=== PATIENT | male | born 1965 | race Caucasian/White ===

== ENCOUNTER 2020-09-05 18:40 | Emergency (ER) | payer BC, SELFPAY ==
[2020-09-05 18:40] VITALS: BP 156/76; PULSE 81; RESP 18; TEMP 37.2; O2SAT 98; BMI 42.9
[2020-09-05 19:15] VITALS: BP 132/71; PULSE 75; RESP 16; O2SAT 98
--- NOTE | 2020-09-05 19:19 | PC.NURSE ---
on phone with Radha charge account identification clerk nurse at [facility]
--- NOTE | 2020-09-05 19:28 | PC.NURSE ---
on phone with [facility] arranging transfer at this time.
--- NOTE | 2020-09-05 19:44 | PC.NURSE ---
md spoke with md at [facility] who stated he would tentatively accept the patient (but transfer is discharge dependent so it might be a few hours), and that in the meantime he would try to get ahold of vascular and podiatry and see if the wound vacs could be done without.
[2020-09-05 19:45] VITALS: BP 122/71; PULSE 73; RESP 18; TEMP 36.8; O2SAT 98
--- NOTE | 2020-09-05 19:49 | HMH.EDGENADL ---
ED Disposition Clinical Impression: Abscess of skin or subcutaneous tissue Qualifiers: Site of cutaneous abscess: extremity Site of cutaneous abscess of extremity: foot Laterality: right Qualified Code(s): L02.611 - Cutaneous abscess of right foot Osteomyelitis of left foot Qualifiers: Osteomyelitis type: subacute Qualified Code(s): M86.272 - Subacute osteomyelitis, left ankle and foot Diabetes Qualifiers: Diabetes mellitus type: type 1 Diabetes mellitus complication status: without complication Qualified Code(s): E10.9 - Type 1 diabetes mellitus without complications Disposition: Xfer Inpatient Rehab Fac Condition on Discharge: Good Instructions: DI for Skin Abscess Referrals: Tayo Jones [Primary Care Provider] - - Critical Care Critical Care Time: No Attestation: On 09/05/20, the high probability of a clinically significant, sudden or life threatening deterioration of the following system(s) required my full and direct attention, intervention and personal management. The time I documented below is in addition to time spent performing reported procedures but includes the following listed in this critical care notation. Medical Decision Making - Medical Records Medical records reviewed: Yes: I reviewed the patient's medical records. - Luis Inquiry Pt receiving controlled substance: No Vital Signs: 09/05/20 18:40 Temperature 98.9 F Temperature Source Oral Pulse Rate [Right Radial] 81 Respiratory Rate 18 Blood Pressure [Right Arm] 156/76 H Blood Pressure Mean [Right Arm] 102 Blood Pressure Source [Right Arm] Automatic Cuff Blood Pressure Position [Right Arm] Sitting 02 Sat by Pulse Oximetry 98 Oxygen Delivery Method Room Air Orders (Tests/Meds): ORDERS Category Date Time Status Complete Blood Count Auto Diff Stat Lab 09/05/20 18:51 Ordered Comprehensive Metabolic Panel Stat Lab 09/05/20 18:51 Ordered Lactic Acid Stat Lab 09/05/20 18:52 Ordered Blood Culture Stat Micro 09/05/20 18:52 Ordered - Reevaluation(s) Time: 19:59 Reevaluation #1: On reevaluation, patient is feeling fine. Hemodynamically stable. I did speak with Dr. Beach at [facility] again. He was able to get a hold of the discharging physician as well as the surgeons. The nursing facility was provided all the supplies for wound VAC placement. I did speak with the nursing facility. They were given instructions again on how to place this. Patient is to follow-up with infectious disease and podiatry as previously subscribed. [facility] be [facility] to [facility]. Medical Decision Narrative: 55-year-old male presented to the emergency department for wound evaluation. The patient did have complicated course and was discharged to prison facility today. Patient arrived without his wound VAC use. Based on the patient's wounds. I do believe he requires extensive wound care management. I did call [facility] in [place]. I did speak with the on-call hospitalist, Dr. eBach. He was notified about the patient. They have accepted transfer the patient. However they are currently at capacity. While the patient is awaiting transport, Dr. Beach did state that he was trying to get a hold of podiatry as well as vascular surgery for possible arrangement of outpatient wound VAC placement or other wound care in order for the patient to return to the prison facility. They will notify us of any changes. If not the patient will be transferred to [facility] ([facility]] for further evaluation and treatment. General Adult HPI - General Chief complaint: Skin/Abscess/Foreign Body Stated complaint: wounds to BLE Time Seen by Provider: 09/05/20 18:45 Mode of Arrival: EMS Limitations: No Limitations Description of Symptoms (Recalled from ER Triage Doc. by RN): Per prison report pt has been at their facilty for approx 3 hours, states pt was d/c'd to their facilty from [facility] ([facility]] today for rehab. State
--- NOTE | 2020-09-05 19:54 | PC.NURSE ---
speaking with dr traylor at [facility] at this time.
--- NOTE | 2020-09-05 19:58 | PC.NURSE ---
phone call made to [facility], spoke to Javier and requested that the DON be paged to return call to Dr. Beck
--- NOTE | 2020-09-05 20:00 | PC.NURSE ---
according to md carmen; jade returned his call and stated the equipment is at the facility and had been.
[2020-09-05 20:15] VITALS: BP 121/74; PULSE 73; RESP 18; O2SAT 98
[2020-09-05 20:45] VITALS: BP 121/70; PULSE 73; RESP 18; TEMP 36.8; O2SAT 98
--- NOTE | 2020-09-05 21:03 | PC.NURSE ---
cleaned wounds to bilat low extremities with saline. Placed xeroform gauze over exposed tendon to left foot, covered with padding and secured. covered wounds to rle with non-adherent pads, gauze and secured. advised ems to remind [facility] not to take those off tonight unless they can keep that tendon moist until the wound vac application occurs. ems transferred pt to their stretcher and left at this time.
[2020-09-05 21:11] VITALS: BP 125/71; PULSE 72; RESP 18; TEMP 36.8; O2SAT 98
== END 2020-09-05 21:20 ==
PROVIDERS: Emergency Provider Emergency Medicine; PCP Family Medicine
DX: L02.611 Cutaneous abscess of right foot (principal); M86.272 Subacute osteomyelitis, left ankle and foot; E10.9 Type 1 diabetes mellitus without complications
CPT/HCPCS: 99282

== ENCOUNTER 2022-01-08 14:20 | Inpatient (IN) | payer MEDICAID, SELFPAY ==
[2022-01-08] VITALS (9 sets, daily range): BP systolic 148–168; BP diastolic 76–86; PULSE 76–94; RESP 18–20; TEMP 36.4–36.9; O2SAT 95–98; BMI 36.9; BMI 36.5
--- NOTE | 2022-01-08 14:34 | PC.NURSE ---
RAD HERE FOR PORT CHEST
--- NOTE | 2022-01-08 14:37 | HMH.EDGENADL ---
Discharge Plan Disposition Patient Disposition: Admitted As Inpatient Chief Complaint: Wound/Laceration Prescriptions Prescriptions: No Action clonidine HCl 0.1 mg tablet 0.1 mg PO TID insulin glargine [Lantus U-100 Insulin] 100 unit/mL solution 24 unit SQ HS amlodipine 5 mg tablet 5 mg PO DAILY insulin lispro 100 unit/mL solution 10 unit SQ TID acetaminophen 500 mg capsule 500 mg PO Q6H PRN (Reason: Pain) Referrals Follow up/Referrals: Tayo Jones [Primary Care Provider] - See instructions Clinical Impressions Clinical Impression: Cellulitis, Diabetes, Diabetic infection of left foot Instructions Patient Instructions: DI for Laceration Repair Discharge ED Provider: Kaleb Samuels General Adult HPI General Chief complaint: Wound/Laceration Stated complaint: left foot pain,diabetic Time Seen by Provider: 01/08/22 14:37 Mode of Arrival: Ambulatory History of Present Illness HPI narrative: 56-year-old male with poorly controlled type 2 diabetes, prior osteomyelitis of the left small toe status post amputation last year. Additional history includes hypertension and prior skin infections. He presents as referral from his physician's office. He was being seen for his hypertension in the noted erythema and swelling of the left foot. He states this has been going on for approximately 3 to 4 days after having gone [place] [employer] [place]. He has not been on any treatments, specifically no antibiotics for this thus far. Denies any fevers, chills, nausea, vomiting or other systemic symptoms. Related Data Home Medications Medication Instructions Recorded Confirmed acetaminophen 500 mg capsule 500 mg PO Q6H PRN Pain 01/08/22 01/08/22 amlodipine 5 mg tablet 5 mg PO DAILY High blood pressure 01/08/22 01/08/22 clonidine HCl 0.1 mg tablet 0.1 mg PO TID High blood pressure 01/08/22 01/08/22 insulin glargine 100 unit/mL 24 unit SQ HS Diabetes 01/08/22 01/08/22 subcutaneous solution (Lantus U-100 Insulin) insulin lispro 100 unit/mL 10 unit SQ TID Diabetes 01/08/22 01/08/22 subcutaneous solution valsartan 160 mg capsule 160 mg PO DAILY High blood pressure 01/08/22 01/08/22 Allergies Allergy/AdvReac Type Severity Reaction Status Date / Time No Known Allergies Allergy Verified 01/08/22 13:55 PFSH PFSH Medical History Amputation of toe of left foot Family History Father Cancer CHF (congestive heart failure) Sister Hypertension Social History Smoking Status: Unknown if ever smoked alcohol intake: never substance use type: denies use current occupational status: other Travel in the last 8 weeks: None ROS Obtained: Yes Systems reviewed as appropriate & no additional complaints except as documented Constitutional Constitutional: Reports system reviewed and no additional complaints, except as documented Eyes Eyes: Reports system reviewed and no additional complaints, except as documented ENT Ears, Nose, Mouth, and Throat: Reports system reviewed and no additional complaints, except as documented Cardiovascular Cardiovascular: Reports system reviewed and no additional complaints, except as documented Respiratory Respiratory: Reports system reviewed and no additional complaints, except as documented Gastrointestinal Gastrointestingal: Reports system reviewed and no additional complaints, except as documented Genitourinary Male Genitourinary: Reports system reviewed and no additional complaints, except as documented Musculoskeletal Musculoskeletal: Reports as per HPI Integumentary/Breasts Skin/Breast: Reports as per HPI Neurologic Neurologic: Reports system reviewed and no additional complaints, except as documented Endocrine Endocrine: Reports system reviewed and no additional complaints, except as documented
--- NOTE | 2022-01-08 14:42 | XR_ITS ---
FINAL REPORT CLINICAL HISTORY: diabetic foot wound FINDINGS: LEFT FOOT Three views of the left foot demonstrate no acute fracture or dislocation. The visualized joint spaces are normally aligned. The joint spaces are preserved. There is a soft tissue defect in the dorsal midfoot with air in the soft tissues. This is presumably air from an open wound. Status post amputation of the 5th digit at the level of the mid metatarsal. IMPRESSION: Soft tissue defect in the dorsal midfoot with air in the soft tissues, presumably from an open wound. Reviewed, Interpreted and Dictated by Shannan Baca MD Transcribed by Joyce Mackay Authenticated and [facility]
--- NOTE | 2022-01-08 14:42 | PC.NURSE ---
ED MD AT BEDSIDE FOR EVALUATION
--- NOTE | 2022-01-08 15:00 | PC.NURSE ---
1458 PT TO XR AT THIS TIME
--- NOTE | 2022-01-08 15:04 | PC.NURSE ---
PT RETURNED FROM XR
[2022-01-08 15:10] LABS: Basophils # 0.1 K/mm3 (0-0.2); Basophils % 0.6 % (0.1-2.0); Eosinophils # 0.6 K/mm3 (0.0-0.4); Hematocrit 36.8 % (42.0-52.0); Hemoglobin 11.5 g/dL (14.1-18.0); Lymphocytes # 2.1 K/mm3 (0.7-4.5); Lymphocytes % 18.5 % (10-50); Mean Corpuscular HGB Conc 31.3 g/dL (31.8-35.4); Mean Corpuscular Hemoglobin 25.7 pg (27.0-31.2); Mean Platelet Volume 7.3 fl (7.4-10.4); Monocytes # 0.8 K/mm3 (0.1-1.0); Monocytes % 7.1 % (1.7-9.3); Neutrophils # 7.8 K/mm3 (1.8-7.8); Neutrophils % 68.8 % (37.0-80.0); Platelet Count 426 K/mm3 (142-424); Red Blood Count 4.49 M/mm3 (4.60-6.20); Red Cell Distribution Width 15.1 % (11.5-17.5); White Blood Count 11.3 K/mm3 (4.8-10.8)
[2022-01-08 15:15] LABS: Alanine Aminotransferase 12 U/L (12-78); Albumin Level 3.7 g/dl (3.5-5.0); Alkaline Phosphatase 90 U/L (38-126); Anion Gap 16.5 mEq/L (5-15); Aspartate Amino Transferase 26 U/L (17-59); Blood Urea Nitrogen 15 mg/dl (9-20); Calcium 8.8 mg/dl (8.4-10.2); Carbon Dioxide 27 mmol/L (22.0-30.0); Chloride 99 mmol/L (98-107); Creatinine Clearance Estimated 154 mL/min (50-200); Estimated Glomerular Filt Rate 87 ml/min (>60); GFR (African American) 105 ML/MIN (>60); Globulin 3.6 g/dL (1.3-3.2); Glucose 212 mg/dl (74-100); Potassium 4.5 mmoL/L (3.5-5.1); Sodium 138 mmol/L (136-145); Total Protein,Serum 7.3 g/dl (6.3-8.2)
[2022-01-08 15:16] LABS: Bilirubin,Total < 0.1 mg/dl (0.2-1.3)
[2022-01-08 15:21] LABS: Coronavirus 19, PCR Not Detected (NotDetected); Influenza A, PCR Not Detected (NotDetected); Influenza B, PCR Not Detected (NotDetected)
--- NOTE | 2022-01-08 15:25 | PC.NURSE ---
MAR REQUESTED FROM [facility] AT THIS TIME
[2022-01-08 15:37] LABS: Erythrocyte Sedimentation Rate 120 mm/hr (0-20)
--- NOTE | 2022-01-08 15:43 | PC.NURSE ---
CODY DUGGAN speaking with Dr. Gomez who is data integration architect for service pts
--- NOTE | 2022-01-08 15:44 | PC.NURSE ---
ED MD DISCUSSING ADMISSION WITH PT AND FAMILY
--- NOTE | 2022-01-08 15:52 | PC.NURSE ---
notified care management of admission, spoke with zunilda
[2022-01-08 15:55] LABS: Procalcitonin 0.081 ng/mL (0.0-2.0)
--- NOTE | 2022-01-08 15:55 | PC.NURSE ---
yvette rodriguesn at BS
--- NOTE | 2022-01-08 16:25 | EXP.PHA.CONS ---
Pharmacy Consult Date: 01/08/22 Time: 16:25 Referring provider: DR. LUQUE Reason for Consult:: VANCOMYCIN DOSING Allergies Allergy/AdvReac Type Severity Reaction Status Date / Time No Known Allergies Allergy Verified 01/08/22 13:55 Home Medications Medication Instructions Recorded Confirmed Type acetaminophen 500 mg capsule 500 mg PO Q6H PRN Pain 01/08/22 01/08/22 History amlodipine 5 mg tablet 5 mg PO DAILY High blood pressure 01/08/22 01/08/22 History clonidine HCl 0.1 mg tablet 0.1 mg PO TID High blood pressure 01/08/22 01/08/22 History insulin glargine 100 unit/mL 24 unit SQ HS Diabetes 01/08/22 01/08/22 History subcutaneous solution (Lantus U-100 Insulin) insulin lispro 100 unit/mL 10 unit SQ TID Diabetes 01/08/22 01/08/22 History subcutaneous solution valsartan 160 mg capsule 160 mg PO DAILY High blood pressure 01/08/22 01/08/22 History New Prescriptions to Start Prescriptions: Height: 1.8 m Weight: 120.202 kg Laboratory Results:: Laboratory Results - last 24 hr 01/08/22 14:55: ESR 120 H 01/08/22 14:55: C-Reactive Protein 46.0 H 01/08/22 14:55: WBC 11.3 H, RBC 4.49 L, Hgb 11.5 L, Hct 36.8 L, MCV 82.0, MCH 25.7 L, MCHC 31.3 L, RDW 15.1, Plt Count 426 H, MPV 7.3 L, Neut % (Auto) 68.8, Lymph % (Auto) 18.5, Barnes % (Auto) 7.1, Eos % (Auto) 5.0, Baso % (Auto) 0.6, Neut # (Auto) 7.8, Lymph # (Auto) 2.1, Barnes # (Auto) 0.8, Eos # (Auto) 0.6 H, Baso # (Auto) 0.1 01/08/22 14:55: Sodium 138, Potassium 4.5, Chloride 99, Carbon Dioxide 27, Anion Gap 16.5 H, BUN 15, Creatinine 0.90, Estimated Creat Clear 154, Estimated GFR 87, Est GFR ( Amer) 105, Glucose 212 H, Calcium 8.8, Total Bilirubin < 0.1 L, AST 26, ALT 12, Alkaline Phosphatase 90, Total Protein 7.3, Albumin 3.7, Globulin 3.6 H, Albumin/Globulin Ratio 1.0 L 01/08/22 14:55: Procalcitonin 0.081 01/08/22 15:15: SARS-CoV-2 (PCR) Not detected, Influenza A Untype (PCR) Not detected, Influenza Type B (PCR) Not detected Medical History: Medical History (Updated 01/08/22 @ 15:48 by Kaleb Samuels MD) Amputation of toe of left foot Assessment and Plan Assessment and plan all Dx Assessment and Plan for all problems:: Objective: Patient: Floor: Age: 56 yo Serum creatinine: 0.9 mg/dL Height: 71.0 Inches Weight (kg): 120.2 Assessment: IBW (kg): 75.30 Dosing wt(kg): 120.2 Estimated Creatinine clearance (ml/min): 96.4 CRCL method: Cockcroft and Gault using ibw(default). Drug selected: Vancomycin Loading dose (mg): 0 Vd (liters): 96.2 (factor used: 0.8 L/kg) Evans (hr-1): 0.084 Half life (hrs): 8.25 Recommended dose: 2250 mg Interval: 12 hrs Infusion time (hrs): 2.0 Predicted peak (mcg/mL): 33.9 Predicted trough (mcg/mL): 14.63 Total body weight is being used for vancomycin dosing. Recommendations: Give Vancomycin 2250 mg q 12 hrs with an expected Cpeak of 33.9 mcg/ml and an expected Ctrough of 14.63 mcg/ml. ----Vanco only - ignore for aminoglycosides----- CLvanco= 8.08 L/hr AUC 0-24 /DESIREE Data: DESIREE 0.5 mcg/mL: AUC/DESIREE: 1113.9 DESIREE 1.0 mcg/mL: AUC/DESIREE: 556.9 --------- DESIREE 1.5 mcg/mL: AUC/DESIREE: 371.3 DESIREE 2.0 mcg/mL: AUC/DESIREE: 278.5
--- NOTE | 2022-01-08 16:33 | PC.NURSE ---
REPORT GIVEN TO Valerie MURPHY RN
--- NOTE | 2022-01-08 16:47 | PC.NURSE ---
patient came to floor by wheelchair from ED
--- NOTE | 2022-01-08 16:57 | EXP.HP ---
History of Present Illness *Admission Date: 01/08/22 *Reason for visit:: left foot wound *History of present illness: 56-year-old male with poorly controlled type 2 diabetes, prior osteomyelitis of the left small toe status post amputation last year.? Additional history includes hypertension and prior skin infections.? He presents as referral from his physician's office.? He was being seen for his hypertension in the noted erythema and swelling of the left foot.? He states this has been going on for approximately 3 to 4 days after having gone to a [employer] zoo.? He has not been on any treatments, specifically no antibiotics for this thus far.? Denies any fevers, chills, nausea, vomiting or other systemic symptoms. The above as per ER documentation. Further to note patient does not recall any specific injury or causative factor. He states the wound on the left foot has been draining. He denies having any fever. He has been able to walk without problems. He has been a resident of [facility] for about a year. His sister is present and helps with assessment. With evaluation in the emergency room white blood cell count was found to be elevated with mildly elevated inflammatory markers. He has been started on IV vancomycin. Foot x-ray reveals the following: FINDINGS: LEFT FOOT? Three views of the left foot demonstrate no acute fracture or dislocation. The visualized joint spaces are normally aligned.? The joint spaces are preserved.? There is a soft tissue defect in the dorsal midfoot with air in the soft tissues.? This is presumably air from an open wound.? Status post amputation of the 5th digit at the level of the mid metatarsal. IMPRESSION: Soft tissue defect in the dorsal midfoot with air in the soft tissues, presumably from an open wound. [facility] Medical History (Updated 01/08/22 @ 17:04 by Victoria Swartz APRN) Amputation of fifth toe of left foot Amputation of toe of left foot Family History (Updated 01/08/22 @ 17:05 by Victoria Swartz APRN) Coronary artery disease CHF (congestive heart failure) Father Cancer Father Hypertension Sister Social History Smoking Status: Unknown if ever smoked alcohol intake: never substance use type: denies use current occupational status: other Travel in the last 8 weeks: None Review of Systems Constitutional Constitutional: Denies fever(s), Denies frequent falls and Denies weakness Eyes Eyes: Denies blurry vision ENT Ears, Nose, Mouth, and Throat: Denies otalgia and Denies sore throat *Cardiovascular Cardiovascular: Denies chest pain, Denies dyspnea, Denies irregular heart rhythm, Reports leg edema and Reports pedal edema *Respiratory Respiratory: Denies dyspnea *Gastrointestinal Gastrointestinal: Denies abdominal pain, Denies change in bowel habits, Denies heartburn, Denies nausea and Denies vomiting *Genitourinary Genitourinary: Denies difficulty urinating *Musculoskeletal Musculoskeletal: Denies abnormal gait, Denies arthralgias and Denies other (left foot pain) *Neurologic Neurologic: Reports system reviewed and no additional complaints, except as documented, Denies abnormal gait, Denies frequent falls and Denies weakness Meds Home Medications and Allergies Home Medications Medication Instructions Recorded Confirmed Type acetaminophen 500 mg capsule 500 mg PO Q6H PRN Pain 01/08/22 01/08/22 History amlodipine 5 mg tablet 5 mg PO DAILY High blood pressure 01/08/22 01/08/22 History clonidine HCl 0.1 mg tablet 0.1 mg PO TID High blood pressure 01/08/22 01/08/22 History insulin glargine 100 unit/mL 24 unit SQ HS Diabetes 01/08/22 01/08/22 History subcutaneous solution (Lantus U-100 Insulin) insulin lispro 100 unit/mL 10 unit SQ TID Diabetes 01/08/22 01/08/22 History subcutaneous solution valsartan 160 mg capsule 160 mg PO DAILY High blood pressure 01/08/22 01/08/22 History New
--- NOTE | 2022-01-08 17:37 | PC.WOUNDNOTE ---
ULCER NOTED TO THE LEFT FOOT WITH DRAINAGE ULCER NOTED TO THE LEFT FOOT WITH DRAINAGE
[2022-01-08 17:38] LABS: POC Glucose,Bedside 195 (70-110)
--- NOTE | 2022-01-08 21:09 | PC.NURSE ---
spoke with dr benjamin at this time regarding pt fsbs and insulin orders. was ordered to hold sliding scale insulin for tonight, but to give the ordered 10 units of humalog.
[2022-01-08 21:34] LABS: POC Glucose,Bedside 178 (70-110)
[2022-01-09] VITALS (20 sets, daily range): BP systolic 109–165; BP diastolic 59–96; PULSE 59–74; RESP 15–22; TEMP 36.5–36.7; O2SAT 92–98; BMI 36.7
--- NOTE | 2022-01-09 05:12 | PC.NURSE ---
pt has rested most of the night. no c/o pain in left foot. he is a&oX4. voids per urinal. no needs at this time.
[2022-01-09 06:43] LABS: Basophils # 0.1 K/mm3 (0-0.2); Basophils % 0.7 % (0.1-2.0); Eosinophils # 0.6 K/mm3 (0.0-0.4); Eosinophils % 5.8 % (0.1-12.0); Hematocrit 32.9 % (42.0-52.0); Hemoglobin 10.5 g/dL (14.1-18.0); Lymphocytes # 2.1 K/mm3 (0.7-4.5); Lymphocytes % 18.9 % (10-50); Mean Corpuscular HGB Conc 31.8 g/dL (31.8-35.4); Mean Corpuscular Volume 81.8 fl (80-94); Mean Platelet Volume 7.6 fl (7.4-10.4); Monocytes # 0.8 K/mm3 (0.1-1.0); Monocytes % 7.3 % (1.7-9.3); Neutrophils # 7.4 K/mm3 (1.8-7.8); Neutrophils % 67.3 % (37.0-80.0); Platelet Count 362 K/mm3 (142-424); Red Blood Count 4.02 M/mm3 (4.60-6.20); Red Cell Distribution Width 15.2 % (11.5-17.5); White Blood Count 11.1 K/mm3 (4.8-10.8)
[2022-01-09 06:49] LABS: Anion Gap 10.2 mEq/L (5-15); Blood Urea Nitrogen 13 mg/dl (9-20); Calcium 8.2 mg/dl (8.4-10.2); Carbon Dioxide 25 mmol/L (22.0-30.0); Chloride 104 mmol/L (98-107); Creatinine Clearance Estimated 196 mL/min (50-200); Estimated Glomerular Filt Rate 116 ml/min (>60); GFR (African American) 141 ML/MIN (>60); Glucose 108 mg/dl (74-100); Potassium 4.2 mmoL/L (3.5-5.1); Sodium 135 mmol/L (136-145)
--- NOTE | 2022-01-09 07:25 | P.CONPHA_ITS ---
[facility] Pharmacy VTE Monitoring Patient Demographics Admission date: 01/09/22 Report Date: 01/09/22 Time: 07:25 Patient Allergies No Known Allergies Allergy (Verified 01/08/22 13:55) Height: 1.8 m Weight: 118.983 kg Current Active Problems (Updated 01/08/22 @ 17:04 by Victoria Swartz APRN) Cellulitis (Acute) Diabetic infection of left foot (Acute) Hypertension (Acute) Diabetes (Acute) VTE Risk Labs: VTE Related Lab Results Hgb 10.5 g/dL (14.1-18.0) L 01/09/22 06:09 Hct 32.9 % (42.0-52.0) L 01/09/22 06:09 Plt Count 362 K/mm3 (142-424) 01/09/22 06:09 BUN 13 mg/dl (9-20) 01/09/22 06:09 Creatinine 0.70 mg/dl (0.66-1.25) D 01/09/22 06:09 Estimated Creat Clear 196 mL/min (50-200) 01/09/22 06:09 Clinical Trial Participant: No Prophylaxis VTE Prophylaxis Ordered?: Yes Types of VTE Prophylaxis: TEDS Knee High
--- NOTE | 2022-01-09 08:01 | P.CONPHA_ITS ---
Pharmacy Intervention Comments: HOME MEDICATION RECONCILIATION WAS COMPLETED USING MEDICATION LIST FROM PRISON AND INTERVIEW WITH PATIENT.
--- NOTE | 2022-01-09 08:01 | HMH.PHAINT1 ---
Pharmacy Intervention Comments: HOME MEDICATION RECONCILIATION WAS COMPLETED USING MEDICATION LIST FROM [facility] AND INTERVIEW WITH PATIENT.
--- NOTE | 2022-01-09 08:17 | US_ITS ---
FINAL REPORT CLINICAL HISTORY: DM, CELLULITIS,PRIOR LEFT 5TH TOE AMPUATATION,WOUND LT FOOT,HTN FINDINGS: LOWER EXTREMITY SEGMENTAL PRESSURE MEASUREMENTS FINDINGS: Pressure indices are as follows: RIGHT LOWER EXTREMITY: Upper thigh: noncompressible Calf: noncompressible Ankle, posterior tibial artery: noncompressible Ankle, dorsalis pedis: noncompressible Toe: 0.95 LEFT LOWER EXTREMITY: Upper thigh: noncompressible Calf: noncompressible Ankle, posterior tibial artery: 1.24 Ankle, dorsalis pedis: 1.21 Toe: 0.79 IMPRESSION: Although the left lower extremity ABIs are normal range it is unlikely accurate. Overall exam is nondiagnostic due to noncompressible vessels. Reviewed, Interpreted and Dictated by Shannan Baca MD Transcribed by Victoria Sultana Authenticated and [facility]
--- NOTE | 2022-01-09 08:36 | ECG_ITS ---
APPROVED REPORT Exam: Resting ECG HR:70 bpm ECG Measurements Heart Rate 70 AXES WV 179 P 51 QRSd 153 QRS -18 QT 410 T 253 QTc 431 Conclusion SINUS RHYTHM RIGHT BUNDLE BRANCH BLOCK [120+ ms QRS DURATION, UPRIGHT V1, 40+ ms S IN I/aVL/V4/V5/V6] MODERATE T-WAVE ABNORMALITY, CONSIDER LATERAL ISCHEMIA [-0.1+ mV T-WAVE IN I/aVL/V5/V6] MODERATE T-WAVE ABNORMALITY, CONSIDER INFERIOR ISCHEMIA [-0.1+ mV T-WAVE IN II/aVF] ABNORMAL ECG UNCONFIRMED REPORT Electronically signed by : Alex George MD 01/11/2022 16:00:41
--- NOTE | 2022-01-09 08:42 | EXP.PN ---
Subjective *Date: 01/09/22 *Time: 13:15 Interval history: Patient states he is feeling better today. He did sleep. He is n.p.o. this a.m. but did eat last night without difficulty. He feels his pain in his foot is better.Blood sugars have been stable. White blood cell count is 11,100. Exam Data for Last 24 hours Vital signs and Labs for Last 24 Hours: Temp Pulse Resp BP Pulse Ox 98.1 F 73 18 163/87 H 96 01/09/22 07:46 01/09/22 07:46 01/09/22 07:46 01/09/22 07:46 01/09/22 07:46 Laboratory Results - last 24 hr 01/08/22 14:55: ESR 120 H 01/08/22 14:55: C-Reactive Protein 46.0 H 01/08/22 14:55: WBC 11.3 H, RBC 4.49 L, Hgb 11.5 L, Hct 36.8 L, MCV 82.0, MCH 25.7 L, MCHC 31.3 L, RDW 15.1, Plt Count 426 H, MPV 7.3 L, Neut % (Auto) 68.8, Lymph % (Auto) 18.5, Bucks % (Auto) 7.1, Eos % (Auto) 5.0, Baso % (Auto) 0.6, Neut # (Auto) 7.8, Lymph # (Auto) 2.1, Bucks # (Auto) 0.8, Eos # (Auto) 0.6 H, Baso # (Auto) 0.1 01/08/22 14:55: Sodium 138, Potassium 4.5, Chloride 99, Carbon Dioxide 27, Anion Gap 16.5 H, BUN 15, Creatinine 0.90, Estimated Creat Clear 154, Estimated GFR 87, Est GFR ( Amer) 105, Glucose 212 H, Calcium 8.8, Total Bilirubin < 0.1 L, AST 26, ALT 12, Alkaline Phosphatase 90, Total Protein 7.3, Albumin 3.7, Globulin 3.6 H, Albumin/Globulin Ratio 1.0 L 01/08/22 14:55: Procalcitonin 0.081 01/08/22 15:15: SARS-CoV-2 (PCR) Not detected, Influenza A Untype (PCR) Not detected, Influenza Type B (PCR) Not detected 01/08/22 17:29: POC Glucose 195 H 01/08/22 21:02: POC Glucose 178 H 01/09/22 06:09: WBC 11.1 H, RBC 4.02 L, Hgb 10.5 L, Hct 32.9 L, MCV 81.8, MCH 26.0 L, MCHC 31.8, RDW 15.2, Plt Count 362, MPV 7.6, Neut % (Auto) 67.3, Lymph % (Auto) 18.9, Bucks % (Auto) 7.3, Eos % (Auto) 5.8, Baso % (Auto) 0.7, Neut # (Auto) 7.4, Lymph # (Auto) 2.1, Bucks # (Auto) 0.8, Eos # (Auto) 0.6 H, Baso # (Auto) 0.1 01/09/22 06:09: Sodium 135 L, Potassium 4.2, Chloride 104, Carbon Dioxide 25, Anion Gap 10.2, BUN 13, Creatinine 0.70 D, Estimated Creat Clear 196, Estimated GFR 116, Est GFR ( Amer) 141 D, Glucose 108 H D, Calcium 8.2 L I & O for Last 24 hours: Intake & Output 01/06/22 01/07/22 01/08/22 01/09/22 11:59 11:59 11:59 11:59 Intake Total 240 / 240 Output Total 850 / 850 Balance -610 / -610 Weight 262 lb 5 oz Constitutional Constitutional: no acute distress Comments: Sitting up in the bed and appears comfortable. *Routine Respiratory Exam Respiratory: Present CTA bilaterally (Anteriorly and posteriorly) *Routine Cardiovascular Exam Cardiovascular: Present RRR *Routine Abdominal Exam Abdominal: Present soft, normoactive bowel sounds and obese *Routine Extremities Exam Extremities: Present edema (With erythema of the left foot. Excoriation on dorsal aspect appears dry. He has a boggy area below the fifth toe) *Routine Neurological Exam Neurological: Present alert and oriented X3 Assessment and Plan *Assessment and plan (1) Cellulitis: Status: Acute Category: Medical Code(s): L03.90 - Cellulitis, unspecified (2) Diabetic infection of left foot: Status: Acute Category: Medical Code(s): E11.628 - Type 2 diabetes mellitus with other skin complications; L08.9 - Local infection of the skin and subcutaneous tissue, unspecified (3) Hypertension: Status: Acute Qualifiers: Hypertension type: unspecified Qualified Code(s): I10 - Essential (primary) hypertension Category: Medical Code(s): I10 - Essential (primary) hypertension (4) Abscess of skin or subcutaneous tissue: Status: Acute Qualifiers: Laterality: right Site of cutaneous abscess: extremity Site of cutaneous abscess of extremity: foot Qualified Code(s): L02.611 - Cutaneous abscess of right foot Category: Medical Code(s): L02.91 - Cutaneous abscess, unspecified (5) Type 2 diabetes mellitus: Status: Acute Category: Medical Cod
[2022-01-09 08:46] LABS: Hemoglobin A1C 6.7 % (4.0-6.0)
--- NOTE | 2022-01-09 08:47 | EXP.ORTH.CON ---
Documented by User: Prabha Dexter APRN 01/09/22 09:56 History of Present Illness *Admission Date: 01/09/22 *Reason for visit:: left foot wound *History of present illness: This is a 56-year-old male with poorly controlled type 2 diabetes, prior osteomyelitis of the left small toe status post amputation last year.? Additional history includes prior skin infections.? He presented as referral from his physician's office to [facility] emergency room with erythema and swelling of the left foot.? This has been going on for approximately 3 to 4 days after having gone to a [employer].? PCP team consulted podiatry for left foot cellulitis and wound management. Left foot 3V x-ray results reviewed by and it revealed Soft tissue defect in the dorsal midfoot with air in the soft tissues, presumably from an open wound. We will keep patient NPO and obtain a surgical consent for left foot incision and drainage. Patient and POA agreed with treatment plan. For detailed HPI see [facility] Medical History (Updated 01/09/22 @ 13:16 by Wisam Pena MD) Amputation of fifth toe of left foot Amputation of toe of left foot Family History (Updated 01/08/22 @ 17:05 by Victoria Swartz APRN) Coronary artery disease CHF (congestive heart failure) Father Cancer Father Hypertension Sister Social History Smoking Status: Unknown if ever smoked alcohol intake: never substance use type: denies use current occupational status: other Travel in the last 8 weeks: None Review of Systems Constitutional Constitutional: Denies frequent falls and Denies weakness *Musculoskeletal Musculoskeletal: Denies abnormal gait *Neurologic Neurologic: Reports system reviewed and no additional complaints, except as documented, Denies abnormal gait, Denies frequent falls and Denies weakness Meds Home Medications and Allergies Home Medications Medication Instructions Recorded Confirmed Type acetaminophen 500 mg capsule 500 mg PO Q6H PRN Pain 01/08/22 01/08/22 History amlodipine 5 mg tablet 5 mg PO DAILY High blood pressure 01/08/22 01/08/22 History insulin glargine 100 unit/mL 24 unit SQ HS Diabetes 01/08/22 01/08/22 History subcutaneous solution (Lantus U-100 Insulin) insulin lispro 100 unit/mL 10 unit SQ TID Diabetes 01/08/22 01/08/22 History subcutaneous solution sulfamethoxazole 800 1 tab PO BID infection 01/09/22 01/09/22 History mg-trimethoprim 160 mg tablet (Bactrim DS) valsartan 160 mg tablet 160 mg PO DAILY High blood pressure 01/09/22 01/09/22 History New Prescriptions to Start Prescriptions: Allergies Allergy/AdvReac Type Severity Reaction Status Date / Time No Known Allergies Allergy Verified 01/08/22 13:55 Ortho Exam (Inpt) Vital signs and Labs for Last 24 Hours: Temp Pulse Resp BP Pulse Ox 98.1 F 73 18 163/87 H 96 01/09/22 07:46 01/09/22 07:46 01/09/22 07:46 01/09/22 07:46 01/09/22 07:46 Laboratory Results - last 24 hr 01/08/22 14:55: ESR 120 H 01/08/22 14:55: C-Reactive Protein 46.0 H 01/08/22 14:55: WBC 11.3 H, RBC 4.49 L, Hgb 11.5 L, Hct 36.8 L, MCV 82.0, MCH 25.7 L, MCHC 31.3 L, RDW 15.1, Plt Count 426 H, MPV 7.3 L, Neut % (Auto) 68.8, Lymph % (Auto) 18.5, Lyman % (Auto) 7.1, Eos % (Auto) 5.0, Baso % (Auto) 0.6, Neut # (Auto) 7.8, Lymph # (Auto) 2.1, Lyman # (Auto) 0.8, Eos # (Auto) 0.6 H, Baso # (Auto) 0.1 01/08/22 14:55: Sodium 138, Potassium 4.5, Chloride 99, Carbon Dioxide 27, Anion Gap 16.5 H, BUN 15, Creatinine 0.90, Estimated Creat Clear 154, Estimated GFR 87, Est GFR ( Amer) 105, Glucose 212 H, Calcium 8.8, Total Bilirubin < 0.1 L, AST 26, ALT 12, Alkaline Phosphatase 90, Total Protein 7.3, Albumin 3.7, Globulin 3.6 H, Albumin/Globulin Ratio 1.0 L 01/08/22 14:55: Procalcitonin 0.081 01/08/22 15:15: SARS-CoV-2 (PCR) Not detected, Influenza A Untype (PCR) Not detected, Influenza Type B (PCR)
--- NOTE | 2022-01-09 09:18 | SW/DCPLANNER ---
Addendum entered by Tahmina Herrera 01/11/22 12:47: This patient will return to [facility] today ICF level of care. Patient will return with PICC and IV antibiotics: Faby martinez/ [facility] is aware and agreeable. COVID swab collected today is negative. Original Note: This patient currently resides at [facility] ICF level of care. I will fax updated patient to [facility] this AM. Discharge date is unknown at this time.
--- NOTE | 2022-01-09 09:21 | CA_ITS ---
APPROVED REPORT EXAM: Comprehensive 2D, Doppler, and color-flow Echocardiogram Computer Meteorologist: Oanh Rae CRT Ht: 5 ft 10 in Wt: 262lbs BSA: 2.34 BP: 163/87 mmHg Indications: Abnormal ECG, Diabetes, Peripheral Edema, Hypertension/HDD, DNR, Pre-op, cellulitis, RBBB 2D Dimensions LVOT 2.01 cm (M/F) 1.5-2.5 LA Volume 31.90 mL LA Volume Index 13.60 mL/m2 (M/F) 16-34 M-Mode Dimensions RVDd 3.70 cm (0.9-2.6) LA Diam 3.50 cm (1.9-4.0) LVDd 5.87 cm (3.5-5.7) Ao Diam 5.09 cm (2.0-3.7) LVDs 3.94 cm (3.5-5.7) IVSd 1.65 cm (0.6-1.1) PWd 0.64 cm (0.6-1.1) EF (Teich) 60.60% FS 32.90% EDV (Teich) 171.20 mL TAPSE 2.78 (<1.7) ESV (Teich) 67.50 mL LV Diastology E Decel Time 220.00 (160-240 msec) E/A Ratio 1.06 MED E' 3.60 (< 7 cm/sec) MED A' 7.80 cm/s E'/MED E' Ratio 22.06 (>14) LAT E' 5.40 (<10 cm/sec) LAT A' 9.10 cm/s E/LAT E' Ratio 14.70 (>14) Aortic Valve LVOT Max 156.00 (70-110 cm/s) LVOT VTI 31.99 cm AoV Peak Marlo. 178.00 (50-130 cm/s) AO Peak GR. 12.70 mmHg AO Mean GR. 6.40 (<5 mmHg) AO VTI 33.20 (18-25 cm) RADHA (VTI) 3.06 (2.5-4.5 cm2) Mitral Valve MV A Velocity 75.00 (40-130 cm/s) E/A Ratio 1.06 MV Decel. Time 220.00 (160-240 ms) Pulmonary Valve PV Peak Velocity 134.00 (50-150 cm/s) Tricuspid Valve TR P. Velocity 171.00 cm/s RAP Estimate 10.00 mmHg RVSP 21.70 mmHg Left Ventricle Left atrium is mildly enlarged, left ventricle is normal size mild concentric left ventricular hypertrophy, estimated ejection fraction 55% with no regional wall motion abnormality, diastolic parameters are inconclusive. Right Ventricle Right atrium and right ventricle are normal size and contractility. Aortic Valve Aortic valve is thickened and calcified without aortic stenosis or aortic insufficiency. Mitral Valve Mitral valve is grossly normal, there is trace mitral regurgitation. Tricuspid Valve Tricuspid valve grossly normal, there is trace tricuspid regurgitation, tricuspid regurgitation request is inadequate for calculation of the right ventricular systolic pressure. Pulmonic Valve Pulmonic valve is poorly visualized. Great Vessels Aortic root is normal size, ascending aorta above the sinotubular junction is mildly enlarged. Inferior vena cava is poorly visualized. Pericardium No significant pericardial effusion noted. Conclusion 1. Mildly enlarged left atrium, normal left ventricular size, mild concentric left ventricular hypertrophy, estimated ejection fraction 55% with no regional wall motion abnormality, diastolic parameters are inconclusive. 2. Trace mitral and tricuspid regurgitation. 3. No significant pericardial effusion. 4. Inferior vena cava is poorly visualized. Electronically signed by : Edmond Washington MD 01/10/2022 07:28:15
--- NOTE | 2022-01-09 09:30 | EXP.CARD.CON ---
History of Present Illness History of Present Illness Consult date: 01/09/22 Requesting physician: Muriel Mane Consult reason: pre-op evaluation Chief complaint: Left foot cellulitis, abnormal EKG Additional Medical History:: 1. Diabetes, diagnosed approximately a year and a half ago 2. Peripheral vascular disease with prior cellulitis of the right lower extremity and prior amputation of the left fifth toe 3. Family history of coronary disease in his father in his late 50s 4. Hypertension 5. Abnormal EKG with right bundle branch block, 12/2021 History of present illness: 56-year-old white male admitted through the ER for left foot cellulitis. Patient was seen in our office yesterday as a new patient and due to the extent of the cellulitis was sent to the ER for evaluation and possible admission. Patient is planned for surgical debridement of the left foot today and cardiology has been consulted for preop evaluation due to diabetes and abnormal EKG showing right bundle branch block. Patient denies any prior cardiac history or evidence of coronary disease. No history of syncope. Patient has been in a retirement for about a year due to his peripheral vascular disease/lower extremity infections. His power of Deli Slicer is his sister. [facility] Medical History (Updated 01/09/22 @ 09:30 by Muriel Mane DPM) Amputation of fifth toe of left foot Amputation of toe of left foot Family History (Updated 01/08/22 @ 17:05 by Victoria Swartz APRN) Coronary artery disease CHF (congestive heart failure) Father Cancer Father Hypertension Sister Social History Smoking Status: Unknown if ever smoked alcohol intake: never substance use type: denies use current occupational status: other Travel in the last 8 weeks: None Review of Systems Constitutional Constitutional: Denies frequent falls and Denies weakness *Musculoskeletal Musculoskeletal: Denies abnormal gait *Neurologic Neurologic: Reports system reviewed and no additional complaints, except as documented, Denies abnormal gait, Denies frequent falls and Denies weakness Exam Data for Last 24 hours Vital signs and Labs for Last 24 Hours: Temp Pulse Resp BP Pulse Ox 98.1 F 73 18 163/87 H 96 01/09/22 07:46 01/09/22 07:46 01/09/22 07:46 01/09/22 07:46 01/09/22 07:46 Laboratory Results - last 24 hr 01/08/22 14:55: ESR 120 H 01/08/22 14:55: C-Reactive Protein 46.0 H 01/08/22 14:55: WBC 11.3 H, RBC 4.49 L, Hgb 11.5 L, Hct 36.8 L, MCV 82.0, MCH 25.7 L, MCHC 31.3 L, RDW 15.1, Plt Count 426 H, MPV 7.3 L, Neut % (Auto) 68.8, Lymph % (Auto) 18.5, Owen % (Auto) 7.1, Eos % (Auto) 5.0, Baso % (Auto) 0.6, Neut # (Auto) 7.8, Lymph # (Auto) 2.1, Owen # (Auto) 0.8, Eos # (Auto) 0.6 H, Baso # (Auto) 0.1 01/08/22 14:55: Sodium 138, Potassium 4.5, Chloride 99, Carbon Dioxide 27, Anion Gap 16.5 H, BUN 15, Creatinine 0.90, Estimated Creat Clear 154, Estimated GFR 87, Est GFR ( Amer) 105, Glucose 212 H, Calcium 8.8, Total Bilirubin < 0.1 L, AST 26, ALT 12, Alkaline Phosphatase 90, Total Protein 7.3, Albumin 3.7, Globulin 3.6 H, Albumin/Globulin Ratio 1.0 L 01/08/22 14:55: Procalcitonin 0.081 01/08/22 15:15: SARS-CoV-2 (PCR) Not detected, Influenza A Untype (PCR) Not detected, Influenza Type B (PCR) Not detected 01/08/22 17:29: POC Glucose 195 H 01/08/22 21:02: POC Glucose 178 H 01/09/22 06:09: WBC 11.1 H, RBC 4.02 L, Hgb 10.5 L, Hct 32.9 L, MCV 81.8, MCH 26.0 L, MCHC 31.8, RDW 15.2, Plt Count 362, MPV 7.6, Neut % (Auto) 67.3, Lymph % (Auto) 18.9, Owen % (Auto) 7.3, Eos % (Auto) 5.8, Baso % (Auto) 0.7, Neut # (Auto) 7.4, Lymph # (Auto) 2.1, Owen # (Auto) 0.8, Eos # (Auto) 0.6 H, Baso # (Auto) 0.1 01/09/22 06:09: Sodium 135 L, Potassium 4.2, Chloride 104, Carbon Dioxide 25, Anion Gap 10.2, BUN 13, Creatinine 0.70 D, Estimated Creat Clear 196, Estimated GFR 116, Est GFR ( Amer) 141 D, Glucose 108 H D, Calcium 8.2 L
[2022-01-09 09:51] LABS: Chol/HDL Ratio 8.3 (1-3.5); Cholesterol 124 mg/dl (140-200); HDL Cholesterol 15 mg/dl (40-60); Triglycerides 85 mg/dl (30-150); VLDL Cholesterol 17 mg/dL (0-40)
[2022-01-09 10:01] LABS: Direct LDL Cholesterol 79.56 mg/dL (100-129)
--- NOTE | 2022-01-09 12:26 | EXP.ANES.CKL ---
[facility] Medical History (Updated 01/09/22 @ 09:30 by Muriel Mane DPM) Amputation of fifth toe of left foot Amputation of toe of left foot Family History (Updated 01/08/22 @ 17:05 by Victoria Swartz APRN) Father Cancer CHF (congestive heart failure) Sister Hypertension Other Coronary artery disease Social History Smoking Status: Unknown if ever smoked alcohol intake: never substance use type: denies use current occupational status: other Travel in the last 8 weeks: None [facility] Anesthesia Checklist Patient Identification Patient Identification: Arm Band and Verbal (Name & ) Structural Data Admitted From: Inpatient Planned Operative Procedure/s: Left Foot I &D Consent for Planned Operative Procedure(s) Verified: Yes Verified Documents: Surgical Consent NPO Status Verified Time NPO: 00:00 Chart Verification Results Verified: CBC Airway Assessment C-Spine Mobility Assessed: Yes TMJ Mobility Assessed: Yes Dentition: Good Dentition Neurological Assessment Level of Consciousness: Awake, Alert and Appropriate Anesthesia Plan Anesthesia Risk discussed: Yes ASA Class: III Anesthesia Type: General
--- NOTE | 2022-01-09 13:28 | XR_ITS ---
FINAL REPORT CLINICAL HISTORY: Post op I D COMPARISON: 01/08/2022 FINDINGS: Left foot Four views were obtained. There is gas in the lateral soft tissues, presumably reflecting interval surgical debridement. There is chronic postoperative change from amputation at the level of the 5th metatarsal. There is no new bony destruction or fracture. IMPRESSION: Gas in the lateral soft tissues, presumably reflecting interval surgical debridement. Reviewed, Interpreted and Dictated by Shannan Baca MD Transcribed by Victoria Sultana Authenticated and [facility]
--- NOTE | 2022-01-09 13:28 | EXP.OP.NOTE ---
Date of procedure: 01/09/22 Pre-op Diagnosis:: Left foot cellulitis, abscess, DM foot infection Post-op Diagnosis:: Same Procedure performed:: Left foot incision and drainage Left foot deep debridement of non-viable soft tissue, wound debridement Left foot open bone biopsy Surgeon:: Muriel Mane DPM CALENDERER:: Other (Major Weller) Anesthesia: GETA Estimated blood loss (mL): 20 Clinical Note:: Patient is a 56-year-old diabetic patient new to the podiatry service. He was consulted for left diabetic foot infection, ascending cellulitis with soft tissue air shown on x-ray. 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 He is currently resident at [facility]. We discussed conservative versus surgical treatment options with patient and his sister/POA. We discussed conservative care including continued oral vs IV antibiotics and local wound care versus surgical incision and drainage. Patient understands that they could have wound healing complications including delayed healing and infection. We discussed that if the wound does not heal, it is possible that they may need further debridement. Patient understands if infection spreads into the bone, it may warrant proximal amputation and could result in further loss of digits, loss of partial foot or loss of leg. We discussed the risks and benefits in great detail. Other surgical risks include: prolonged pain and swelling, further infection requiring oral or IV antibiotics, delay in healing of soft tissue or bone, nerve or blood vessel damage, CRPS/RSD, DVT, anesthesia complications, and even . All questions answered. Patient verbalized understanding. Consent obtained. Medical and cardiac clearance per Dr. Pena and [place] Post. Operative findings:: Left foot edema and erythema noted with ascending cellulitis to the level of the ankle. There is some fluctuance noted all along the dorsal lateral aspect of the foot over the fourth metatarsal. Separate incision made over the third metatarsal, dissection about 1 cm including subcutaneous tissue. No purulence expressed. Separate linear incision made over the fourth interspace with dissection 2 cm to deep fascia, some serous fluid noted. Subfifth metatarsal head fluctuance with air noted, at the bedside this morning purulence was expressed and drained from this area. Separate incision made over the subfifth metatarsal head where induration with some fluctuance noted. Incision made full-thickness about 2.5 cm to the level of the fifth metatarsal bone. About 2 cc of creamy fluid expressed. 15 blade used to make an incision over the fifth metatarsal base laterally, dissection to the deep fascia and then bone, 3cm for bone biopsy. Clear drainage noted no purulence. Bone was hard in texture and normal color with no purulence from the bone noted. Operative note:: On this date and time the patient was deemed an appropriate surgical candidate. With informed consent time patient was transferred from the preoperative holding area to the operating theater placed on table in a normal supine position. Left lower extremities prepped and draped in normal sterile fashion. No tourniquet utilized. Left foot incision and drainage x3: Attention was directed to the left plantar foot where edema and erythema was noted along with fluctuance. Utilizing a 15 blade, a linear incision was made over the wound site. There was no evidence of foreign body. [id number] pressure was applied to the incision and immediately 2 more cc of purulent drainage was expressed. Wound/tissue culture taken. Next hemostat used to explore the area. There was no deep tracking or tunneling noted. Some bleeding noted, well controlled. No Bovie or electrocautery or tourniquet utilized. Left wound/ulcer debridement x1: 15 blade and forceps was used to sharply debride necrotic nonviable full thickness soft tissue down to deep f
--- NOTE | 2022-01-09 13:29 | EXP.ANES.I ---
[facility] Anesthesia Record Part I Anesthesia Record I Intake, IV Amount: 500 Estimated blood loss (mL): 20 Urine output (mL): 0 Blood Pressure: 125/59 SaO2: 92 Pulse Rate: 63 Respiratory Rate: 16 Temperature: 97.8 F Patient is:: Drowsy and Oral/Nasal airway Stable to PACU at:: 13:28
[2022-01-09 13:43] LABS: POC Glucose,Bedside 119 (70-110)
--- NOTE | 2022-01-09 14:00 | SUR.PHASEI ---
1338- blood sugar taken at this time via finger stick is 119 1357- detailed report called to lefty bazan on medsurg 1400- pt left in stable condition with lefty bazan in med surg by lefty day and lefty rhodes
--- NOTE | 2022-01-09 14:57 | EXP.ANES.II ---
[facility] Anesthesia Record Part II Anesthesia Record Part II Discharge Time: 13:58 Destination: Medical Surgical Department PACU nurse assessment reviewed?: Yes Patient Condition:: Good Anesthesia Complications:: None Swallowing reflex intact?: Yes Cyanosis?: No Blood Pressure: 149/88 Pulse Rate: 63 Temperature: 97.8 F Mental Status: Alert & Oriented Pain level:: 0 Nausea and/or vomitting:: None Intake, IV Amount: 0
[2022-01-09 17:02] LABS: POC Glucose,Bedside 179 (70-110)
--- NOTE | 2022-01-09 19:42 | PC.NURSE ---
VS stable. Dressing on left foot intact and no reinforcement needed. Patient remains on room air. No complaints of pain noted. Patient continues to be alert and oriented.
[2022-01-09 20:25] LABS: POC Glucose,Bedside 109 (70-110)
[2022-01-10] VITALS: BP 141/62; PULSE 61; RESP 17; TEMP 36.7; O2SAT 98
[2022-01-10 01:57] LABS: Vancomycin,Trough 15.1 ug/mL (5.0-10.0)
[2022-01-10 04:00] VITALS: BP 149/80; PULSE 62; RESP 19; TEMP 36.6; O2SAT 96
[2022-01-10 05:00] VITALS: BMI 36.4
[2022-01-10 05:57] LABS: POC Glucose,Bedside 118 (70-110)
[2022-01-10 06:04] LABS: Alanine Aminotransferase 10 U/L (12-78); Albumin/Globulin Ratio 0.9 (1.1-1.8); Alkaline Phosphatase 70 U/L (38-126); Anion Gap 11.5 mEq/L (5-15); Aspartate Amino Transferase 23 U/L (17-59); Blood Urea Nitrogen 12 mg/dl (9-20); Calcium 8.1 mg/dl (8.4-10.2); Carbon Dioxide 27 mmol/L (22.0-30.0); Chloride 104 mmol/L (98-107); Creatinine Clearance Estimated 195 mL/min (50-200); Estimated Glomerular Filt Rate 116 ml/min (>60); GFR (African American) 141 ML/MIN (>60); Globulin 3.4 g/dL (1.3-3.2); Glucose 112 mg/dl (74-100); Potassium 4.5 mmoL/L (3.5-5.1); Sodium 138 mmol/L (136-145); Total Protein,Serum 6.4 g/dl (6.3-8.2)
[2022-01-10 06:07] LABS: Bilirubin,Total < 0.1 mg/dl (0.2-1.3)
[2022-01-10 06:24] LABS: Basophils # 0.1 K/mm3 (0-0.2); Basophils % 0.6 % (0.1-2.0); Eosinophils # 0.5 K/mm3 (0.0-0.4); Eosinophils % 3.8 % (0.1-12.0); Hematocrit 35.6 % (42.0-52.0); Hemoglobin 11.3 g/dL (14.1-18.0); Lymphocytes # 2.2 K/mm3 (0.7-4.5); Lymphocytes % 16.3 % (10-50); Mean Corpuscular HGB Conc 31.9 g/dL (31.8-35.4); Mean Corpuscular Hemoglobin 26.3 pg (27.0-31.2); Mean Corpuscular Volume 82.6 fl (80-94); Mean Platelet Volume 8.8 fl (7.4-10.4); Monocytes # 1.4 K/mm3 (0.1-1.0); Monocytes % 10.6 % (1.7-9.3); Neutrophils # 9.1 K/mm3 (1.8-7.8); Neutrophils % 68.7 % (37.0-80.0); Platelet Count 310 K/mm3 (142-424); Red Blood Count 4.31 M/mm3 (4.60-6.20); White Blood Count 13.3 K/mm3 (4.8-10.8)
[2022-01-10 06:46] LABS: Vancomycin,Peak 28.6 ug/ml (11-39)
[2022-01-10 08:00] VITALS: BP 160/70; PULSE 75; PULSE 91; RESP 16; TEMP 36.7; O2SAT 95
--- NOTE | 2022-01-10 08:27 | EXP.ACUTE.PN ---
Subjective *Date: 01/10/22 *Time: 09:11 Interval history: Patient denies any pain today. He states he slept off and on throughout the night and has been eating well. Medical Exam Vital signs and Labs for Last 24 Hours: Temp Pulse Resp BP Pulse Ox 98.0 F 75 16 160/70 H 95 01/10/22 08:00 01/10/22 08:00 01/10/22 08:00 01/10/22 08:00 01/10/22 08:00 Laboratory Results - last 24 hr 01/09/22 05:36: POC Glucose 109 01/09/22 06:09: Hemoglobin A1c 6.7 H 01/09/22 06:09: Triglycerides 85, Cholesterol 124 L, LDL Cholesterol Direct 79.56 L, VLDL Cholesterol 17, HDL Cholesterol 15 L, Cholesterol/HDL Ratio 8.3 H 01/09/22 13:37: POC Glucose 119 H 01/09/22 16:37: POC Glucose 179 H 01/10/22 00:30: Vancomycin Trough 15.1 H 01/10/22 05:26: POC Glucose 118 H 01/10/22 05:40: WBC 13.3 H, RBC 4.31 L, Hgb 11.3 L, Hct 35.6 L, MCV 82.6, MCH 26.3 L, MCHC 31.9, RDW 15.0, Plt Count 310, MPV 8.8, Neut % (Auto) 68.7, Lymph % (Auto) 16.3, [place] % (Auto) 10.6 H, Eos % (Auto) 3.8, Baso % (Auto) 0.6, Neut # (Auto) 9.1 H, Lymph # (Auto) 2.2, [place] # (Auto) 1.4 H, Eos # (Auto) 0.5 H, Baso # (Auto) 0.1 01/10/22 05:40: Sodium 138, Potassium 4.5, Chloride 104, Carbon Dioxide 27, Anion Gap 11.5, BUN 12, Creatinine 0.70, Estimated Creat Clear 195, Estimated GFR 116, Est GFR ( Amer) 141, Glucose 112 H, Calcium 8.1 L, Total Bilirubin < 0.1 L, AST 23, ALT 10 L, Alkaline Phosphatase 70, Total Protein 6.4, Albumin 3.0 L, Globulin 3.4 H, Albumin/Globulin Ratio 0.9 L 01/10/22 05:40: Vancomycin Peak 28.6 I & O for Labs for Last 24 Hours: Intake & Output 01/07/22 01/08/22 01/09/22 01/10/22 11:59 11:59 11:59 11:59 Intake Total 240 / 240 1750 / 1750 Output Total 850 / 850 1850 / 1850 Balance -610 / -610 -100 / -100 Weight 262 lb 5 oz 260 lb 9 oz Constitutional: Present no acute distress Respiratory: Present CTA bilaterally Cardiac: Present Reg Rate and Rhythm GI: Present soft; Absent distention or tenderness Comment:: left foot with SERGIO wrap in place Assessment and Plan *Assessment and plan (1) Abscess of skin or subcutaneous tissue: Status: Acute Qualifiers: Laterality: right Site of cutaneous abscess: extremity Site of cutaneous abscess of extremity: foot Qualified Code(s): L02.611 - Cutaneous abscess of right foot Category: Medical Code(s): L02.91 - Cutaneous abscess, unspecified (2) Cellulitis of left foot: Status: Acute Category: Medical Code(s): L03.116 - Cellulitis of left lower limb (3) Type 2 diabetes mellitus: Status: Acute Category: Medical Code(s): E11.9 - Type 2 diabetes mellitus without complications (4) History of MRSA infection: Status: Acute Category: Medical Code(s): Z86.14 - Personal history of Methicillin resistant Staphylococcus aureus infection (5) Small vessel arterial disease due to type 2 diabetes mellitus: Status: Acute Category: Medical Code(s): E11.51 - Type 2 diabetes mellitus with diabetic peripheral angiopathy without gangrene (6) Right bundle branch block: Status: Acute Category: Medical Code(s): I45.10 - Unspecified right bundle-branch block (7) Hypertension: Status: Acute Qualifiers: Hypertension type: unspecified Qualified Code(s): I10 - Essential (primary) hypertension Category: Medical Code(s): I10 - Essential (primary) hypertension Plan Patient was taken to the OR yesterday and had a left foot incision and drainage along with ulcer debridement, bone biopsy, and wound closure. They want the patient to maintain the dressing which is clean and dry and be nonweightbearing in a postop shoe or short fracture boot with a walker. He will need to continue IV vancomycin and await cultures. Patient seen and examined. Concur with above. /Dr. Pena
[2022-01-10 08:33] LABS: C-Reactive Protein 22.5 mg/L (0-4)
[2022-01-10 09:03] LABS: Erythrocyte Sedimentation Rate > 140 mm/hr (0-20)
--- NOTE | 2022-01-10 09:03 | EXP.ORTH.PN ---
Subjective *Date: 01/10/22 *Time: 15:16 Interval history: Patient s/p left foot incision and drainage, left foot deep debridement of non-viable soft tissue, wound debridement and left foot open bone biopsy. Sitting up in bed, no acute distress noted. Denies pain to left foot. Left foot dressing changed by . Incision and stitches intact. Okay from Podiatry stand point for d/c once PT eval, has DME and PICC/IV abx arranged. Ortho Exam (Inpt) Vital signs and Labs for Last 24 Hours: Temp Pulse Resp BP Pulse Ox 98.0 F 75 16 160/70 H 95 01/10/22 08:00 01/10/22 08:00 01/10/22 08:00 01/10/22 08:00 01/10/22 08:00 Laboratory Results - last 24 hr 01/09/22 05:36: POC Glucose 109 01/09/22 06:09: Triglycerides 85, Cholesterol 124 L, LDL Cholesterol Direct 79.56 L, VLDL Cholesterol 17, HDL Cholesterol 15 L, Cholesterol/HDL Ratio 8.3 H 01/09/22 13:37: POC Glucose 119 H 01/09/22 16:37: POC Glucose 179 H 01/10/22 00:30: Vancomycin Trough 15.1 H 01/10/22 05:26: POC Glucose 118 H 01/10/22 05:40: WBC 13.3 H, RBC 4.31 L, Hgb 11.3 L, Hct 35.6 L, MCV 82.6, MCH 26.3 L, MCHC 31.9, RDW 15.0, Plt Count 310, MPV 8.8, Neut % (Auto) 68.7, Lymph % (Auto) 16.3, [place] % (Auto) 10.6 H, Eos % (Auto) 3.8, Baso % (Auto) 0.6, Neut # (Auto) 9.1 H, Lymph # (Auto) 2.2, [place] # (Auto) 1.4 H, Eos # (Auto) 0.5 H, Baso # (Auto) 0.1 01/10/22 05:40: Sodium 138, Potassium 4.5, Chloride 104, Carbon Dioxide 27, Anion Gap 11.5, BUN 12, Creatinine 0.70, Estimated Creat Clear 195, Estimated GFR 116, Est GFR ( Amer) 141, Glucose 112 H, Calcium 8.1 L, Total Bilirubin < 0.1 L, AST 23, ALT 10 L, Alkaline Phosphatase 70, Total Protein 6.4, Albumin 3.0 L, Globulin 3.4 H, Albumin/Globulin Ratio 0.9 L 01/10/22 05:40: Vancomycin Peak 28.6 01/10/22 05:40: C-Reactive Protein 22.5 H D I & O for Labs for Last 24 Hours: Intake & Output 01/07/22 01/08/22 01/09/22 01/10/22 23:59 23:59 23:59 23:59 Intake Total 240 / 240 1040 / 1040 710 / 710 Output Total 400 / 400 2300 / 2300 350 / 350 Balance -160 / -160 -1260 / -1260 360 / 360 Weight 265 lb 262 lb 5 oz 260 lb 9 oz Constitutional: Present no acute distress Head: Present normocephalic ENT: Present mucous membranes moist Neck: Present normal inspection and trachea midline Respiratory: Present normal respiratory effort and able to speak in complete sentences Cardiac: Present Regular Rate and pedal pulses present GI: Present other (obesity) Rectal (male): Present deferred (male): Present deferred Extremities: Present normal capillary refill and calf tenderness (no calf tenderness) Skin: Present wounds (left foot ) Comment:: Date of procedure: 01/09/22. Procedure performed:: Left foot incision and drainage Left foot deep debridement of non-viable soft tissue, wound debridementLeft foot open bone biopsy. Incisions dry and intact. Neuro: Present oriented x 3 and moves all extremities Ankle: bilateral: normal inspection Feet/Toes: left: amputation (5th toe) and left: wound (s/p surgery) Feet w/LR Ind Top: 1. S/P left foot I & D, deep debridement of non-viable soft tissue, wound debridement, incisions with stitches dry and intact. Assessment and Plan *Assessment and plan (1) Foot abscess, left: Status: Acute Category: Medical Code(s): L02.612 - Cutaneous abscess of left foot (2) Cellulitis: Status: Acute Category: Medical Code(s): L03.90 - Cellulitis, unspecified (3) Diabetic infection of left foot: Status: Acute Category: Medical Code(s): E11.628 - Type 2 diabetes mellitus with other skin complications; L08.9 - Local infection of the skin and subcutaneous tissue, unspecified (4) Osteomyelitis of left foot: Status: Acute Qualifiers: Osteomyelitis type: subacute Qualified Code(s): M86.272 - Subacute osteomyelitis, left ankle and foot Category: Medical Code(s): M86.9 - Osteomyelitis, unspecified (5) Diabetes:
--- NOTE | 2022-01-10 09:12 | EXP.PHA.CONS ---
Pharmacy Consult Date: 01/10/22 Time: 09:16 Referring provider: DR SANCHEZ Reason for Consult:: VANCOMYCIN PK LEVELS OBTAINED Allergies Allergy/AdvReac Type Severity Reaction Status Date / Time No Known Allergies Allergy Verified 01/08/22 13:55 Home Medications Medication Instructions Recorded Confirmed Type acetaminophen 500 mg capsule 500 mg PO Q6H PRN Pain 01/08/22 01/08/22 History amlodipine 5 mg tablet 5 mg PO DAILY High blood pressure 01/08/22 01/08/22 History insulin glargine 100 unit/mL 24 unit SQ HS Diabetes 01/08/22 01/08/22 History subcutaneous solution (Lantus U-100 Insulin) insulin lispro 100 unit/mL 10 unit SQ TID Diabetes 01/08/22 01/08/22 History subcutaneous solution sulfamethoxazole 800 1 tab PO BID infection 01/09/22 01/09/22 History mg-trimethoprim 160 mg tablet (Bactrim DS) valsartan 160 mg tablet 160 mg PO DAILY High blood pressure 01/09/22 01/09/22 History New Prescriptions to Start Prescriptions: Height: 1.8 m Weight: 118.189 kg Laboratory Results:: Laboratory Results - last 24 hr 01/09/22 05:36: POC Glucose 109 01/09/22 06:09: Triglycerides 85, Cholesterol 124 L, LDL Cholesterol Direct 79.56 L, VLDL Cholesterol 17, HDL Cholesterol 15 L, Cholesterol/HDL Ratio 8.3 H 01/09/22 13:37: POC Glucose 119 H 01/09/22 16:37: POC Glucose 179 H 01/10/22 00:30: Vancomycin Trough 15.1 H 01/10/22 05:26: POC Glucose 118 H 01/10/22 05:40: WBC 13.3 H, RBC 4.31 L, Hgb 11.3 L, Hct 35.6 L, MCV 82.6, MCH 26.3 L, MCHC 31.9, RDW 15.0, Plt Count 310, MPV 8.8, Neut % (Auto) 68.7, Lymph % (Auto) 16.3, [place] % (Auto) 10.6 H, Eos % (Auto) 3.8, Baso % (Auto) 0.6, Neut # (Auto) 9.1 H, Lymph # (Auto) 2.2, [place] # (Auto) 1.4 H, Eos # (Auto) 0.5 H, Baso # (Auto) 0.1 01/10/22 05:40: Sodium 138, Potassium 4.5, Chloride 104, Carbon Dioxide 27, Anion Gap 11.5, BUN 12, Creatinine 0.70, Estimated Creat Clear 195, Estimated GFR 116, Est GFR ( Amer) 141, Glucose 112 H, Calcium 8.1 L, Total Bilirubin < 0.1 L, AST 23, ALT 10 L, Alkaline Phosphatase 70, Total Protein 6.4, Albumin 3.0 L, Globulin 3.4 H, Albumin/Globulin Ratio 0.9 L 01/10/22 05:40: Vancomycin Peak 28.6 01/10/22 05:40: C-Reactive Protein 22.5 H D 01/10/22 08:33: ESR > 140 H Medical History: Medical History (Updated 01/09/22 @ 13:16 by Wisam Pena MD) Amputation of fifth toe of left foot Amputation of toe of left foot Assessment and Plan Assessment and plan (1) Cellulitis of left foot: Status: Acute Category: Medical Code(s): L03.116 - Cellulitis of left lower limb (2) Cellulitis: Status: Acute Category: Medical Code(s): L03.90 - Cellulitis, unspecified (3) Foot abscess, left: Status: Acute Category: Medical Code(s): L02.612 - Cutaneous abscess of left foot (4) Osteomyelitis of left foot: Status: Acute Qualifiers: Osteomyelitis type: subacute Qualified Code(s): M86.272 - Subacute osteomyelitis, left ankle and foot Category: Medical Code(s): M86.9 - Osteomyelitis, unspecified Plan VANCOMYCIN PEAK AND TROUGH LEVELS OBTAINED AROUND MOST RECENT DOSE. DOSE WAS SCHEDULED TO BE GIVEN 01/10/22 AT 01:00 BUT WAS GIVEN LATE ON 01/10/22 AT 02:32. VANCOMYCIN TROUGH LEVEL = 15.1 MCG/ML (01/10/22 00:30) VANCOMYCIN PEAK LEVEL = 28.6 MCG/ML (01/10/22 05:40) BASED ON THE TROUGH OF 15.1 MCG/ML AND PEAK OF 28.6 MCG/ML, RECOMMEND CONTINUING VANCOMYCIN 2,250 MG Q12H.
[2022-01-10 10:05] LABS: POC Glucose,Bedside 162 (70-110)
--- NOTE | 2022-01-10 10:58 | P.PN_ITS ---
Subjective Subjective Date: 01/10/22 Time: 10:58 Interval history: Patient underwent surgery for left foot abscess yesterday without complications. No complaints this morning. Echocardiogram yesterday showed normal ejection fraction with no significant valve disease. Exam Data for Last 24 hours Vital signs and Labs for Last 24 Hours: Temp Pulse Resp BP Pulse Ox 98.0 F 75 16 160/70 H 95 01/10/22 08:00 01/10/22 08:00 01/10/22 08:00 01/10/22 08:00 01/10/22 08:00 Laboratory Results - last 24 hr 01/09/22 05:36: POC Glucose 109 01/09/22 13:37: POC Glucose 119 H 01/09/22 16:37: POC Glucose 179 H 01/10/22 00:30: Vancomycin Trough 15.1 H 01/10/22 05:26: POC Glucose 118 H 01/10/22 05:40: WBC 13.3 H, RBC 4.31 L, Hgb 11.3 L, Hct 35.6 L, MCV 82.6, MCH 26.3 L, MCHC 31.9, RDW 15.0, Plt Count 310, MPV 8.8, Neut % (Auto) 68.7, Lymph % (Auto) 16.3, [place] % (Auto) 10.6 H, Eos % (Auto) 3.8, Baso % (Auto) 0.6, Neut # (Auto) 9.1 H, Lymph # (Auto) 2.2, [place] # (Auto) 1.4 H, Eos # (Auto) 0.5 H, Baso # (Auto) 0.1 01/10/22 05:40: Sodium 138, Potassium 4.5, Chloride 104, Carbon Dioxide 27, Anion Gap 11.5, BUN 12, Creatinine 0.70, Estimated Creat Clear 195, Estimated GFR 116, Est GFR ( Amer) 141, Glucose 112 H, Calcium 8.1 L, Total Bilirubin < 0.1 L, AST 23, ALT 10 L, Alkaline Phosphatase 70, Total Protein 6.4, Albumin 3.0 L, Globulin 3.4 H, Albumin/Globulin Ratio 0.9 L 01/10/22 05:40: Vancomycin Peak 28.6 01/10/22 05:40: C-Reactive Protein 22.5 H D 01/10/22 08:33: ESR > 140 H 01/10/22 09:58: POC Glucose 162 H I & O for Last 24 hours: Intake & Output 01/07/22 01/08/22 01/09/22 01/10/22 11:59 11:59 11:59 11:59 Intake Total 240 / 240 1750 / 1750 Output Total 850 / 850 2350 / 2350 Balance -610 / -610 -600 / -600 Weight 262 lb 5 oz 260 lb 9 oz Microbiology Reports for the Last 24 Hours: Microbiology 01/09/22 Unknown Foot,Left - Wound Gram Stain - Final *Routine Respiratory Exam Respiratory: Present CTA bilaterally *Routine Cardiovascular Exam Cardiovascular: Present RRR Progress Note: A&P Assessment and plan (1) Foot abscess, left: Status: Acute (2) Cellulitis: Status: Acute (3) Diabetic infection of left foot: Status: Acute (4) Osteomyelitis of left foot: Status: Acute (5) Diabetes: Status: Acute (6) Small vessel arterial disease due to type 2 diabetes mellitus: Status: Acute (7) Cellulitis of left foot: Status: Acute (8) History of MRSA infection: Status: Acute (9) Type 2 diabetes mellitus: Status: Acute (10) Status post surgery: Status: Acute Assessment and Plan Assessment and Plan for All Diagnoses:: Left foot abscess status post surgery. Defer to podiatry Abnormal EKG with right bundle branch block. Patient denies any syncope. Echocardiogram shows normal ejection fraction with no significant valve disease. No further work-up at this time. Nothing further to add at this time from a cardiac standpoint. In light of the patient's hypertension and diabetes, would recommend outpatient work-up including stress testing. Will sign off at this time. Would recommend follow-up in our office in 2 to 4 weeks
[2022-01-10 11:07] VITALS: BP 145/72; PULSE 67; RESP 16; TEMP 36.7; O2SAT 96
--- NOTE | 2022-01-10 11:13 | XR_ITS ---
FINAL REPORT CLINICAL HISTORY: Confirm PICC line placement FINDINGS: The heart size is normal. The mediastinum is normal. Left PICC line tip is seen in the left innominate vein. There is no focal infiltrate or edema. There are no pleural effusions. There is no pneumothorax. There is no osseous abnormality. IMPRESSION: Left PICC line tip is seen at the left innominate vein. Reviewed, Interpreted and Dictated by Shannan Baca MD Transcribed by Victoria Sultana Authenticated and [facility]
[2022-01-10 12:10] LABS: POC Glucose,Bedside 126 (70-110)
--- NOTE | 2022-01-10 12:22 | HMH.PTEV ---
Physical Therapy Evaluation Rehab PT IP Evaluation Start: 01/09/22 13:24 Freq: ONCE Status: Active Protocol: Document 01/10/22 12:18 CELE (Rec: 01/10/22 12:22 CELE [id number]) Subjective/History History History This is the initial IP PT evaluation for Nayan Womack. Pt is a 56 y/o male referred to PT s/p L foot wound I&D. Pt has hx of diabetic foot wounds. Pt is to have post op shoe prior to DC and be NWB on L foot. Subjective Subjective Pt reports no c/o pain - pt states he understands WBing precautions Rehab PT IP Eval Objective Appearance Patient Behavior Appropriate,Cooperative Patient Orientation Place,Name,Birthday,Year, Situation Difficulty following instructions none Speech Pattern Appropriate Ambulation Patient Able to Ambulate Yes Ambulation Observation IP General Gait Pattern Observation Decrease Weight Bear (L) Ambulation Distance (feet) 10 Ambulation Assistive Device Standard Walker Ambulation Ability Supervision/Stand by Balance Ability to Arise Able, uses arms to help Sitting Balance Steady, safe Standing Balance Unsteady Dynamic Sitting Balance Ability Good Dynamic Standing Balance Ability Fair Transfers Bed Transfer Ability Independent Chair Transfer Ability Independent Sit to Stand Bed Transfer Ability Independent,Supervision/Stand by Sit to Stand Chair Transfer Ability Independent,Supervision/Stand by Rehab PT IP prob,goals,plan Problems Date of Evaluation: 01/10/22 PT IP Problems Transfers,Gait,Balance,Self care,Safety Rehab Potential Rehab Potential Good Equipment Needs Assistive Devices Standard Walker Plan PT Intervention Plan Transfers,Gait,Balance,Self care,Safety,Therapeutic Exercise PT Plan Frequency BID Duration LOS Discharge Goals Sit to Stand Chair Transfer Ability Supervision/Stand by Ambulation Assistive Device Standard Walker Ambulation Distance (feet) 10 Discharge Plan PT Discharge Plan Pt safe to return to [facility] at [facility] when medically stable for DC. Pt will be seen by skilled therapy while in [facility].
--- NOTE | 2022-01-10 13:39 | XR_ITS ---
FINAL REPORT CLINICAL HISTORY: PICC line placement/ reposition COMPARISON: 01/10/2022 FINDINGS: Advancement of the left-sided PICC line now terminating in the upper SVC. The heart size is normal. The mediastinum is normal. There is no focal infiltrate or edema. There are no pleural effusions. There is no pneumothorax. There is no osseous abnormality. IMPRESSION: PICC line terminates in the upper SVC. Reviewed, Interpreted and Dictated by Shannan Baca MD Transcribed by Kevin Holloway Authenticated and [facility]
[2022-01-10 14:50] LABS: POC Glucose,Bedside 264 (70-110)
[2022-01-10 15:25] VITALS: BP 176/76; PULSE 69; RESP 17; TEMP 37.3; O2SAT 96
--- NOTE | 2022-01-10 15:32 | PC.NURSE ---
unable to hang vanc dose at this time. awaiting report to conform picc placement
--- NOTE | 2022-01-10 17:46 | PC.NURSE ---
AOX4, HAS NOT REQUIRED O2 SUPPORT. PICC PLACED SUCCESSFULLY TO MAURICE AND VERIFIED WITH CXRAY. DSG TO FOOT C/D/I.
[2022-01-10 17:52] LABS: POC Glucose,Bedside 162 (70-110)
[2022-01-10 20:00] VITALS: BP 146/57; PULSE 62; RESP 20; TEMP 36.6; O2SAT 98
[2022-01-10 21:10] LABS: POC Glucose,Bedside 149 (70-110)
[2022-01-11] VITALS: BP 147/74; PULSE 62; RESP 18; TEMP 36.5; O2SAT 97
[2022-01-11 04:00] VITALS: BP 149/73; PULSE 58; RESP 16; TEMP 36.6; O2SAT 97
--- NOTE | 2022-01-11 04:29 | PC.NURSE ---
pt has rested t/o shift, no complaints of pain or SOA, has remained on room air, dressing to E C/D/I
[2022-01-11 05:41] VITALS: BMI 36.1
[2022-01-11 05:49] LABS: POC Glucose,Bedside 117 (70-110)
[2022-01-11 06:31] LABS: Basophils # 0.1 K/mm3 (0-0.2); Basophils % 0.8 % (0.1-2.0); Eosinophils # 0.7 K/mm3 (0.0-0.4); Eosinophils % 6.1 % (0.1-12.0); Hematocrit 31.9 % (42.0-52.0); Hemoglobin 10.5 g/dL (14.1-18.0); Lymphocytes # 2.6 K/mm3 (0.7-4.5); Lymphocytes % 21.9 % (10-50); Mean Corpuscular HGB Conc 32.9 g/dL (31.8-35.4); Mean Corpuscular Hemoglobin 26.5 pg (27.0-31.2); Mean Corpuscular Volume 80.6 fl (80-94); Mean Platelet Volume 7.6 fl (7.4-10.4); Monocytes # 0.8 K/mm3 (0.1-1.0); Monocytes % 6.9 % (1.7-9.3); Neutrophils # 7.7 K/mm3 (1.8-7.8); Neutrophils % 64.4 % (37.0-80.0); Platelet Count 412 K/mm3 (142-424); Red Blood Count 3.97 M/mm3 (4.60-6.20)
[2022-01-11 06:43] LABS: Alanine Aminotransferase 8 U/L (12-78); Albumin Level 3.1 g/dl (3.5-5.0); Albumin/Globulin Ratio 0.9 (1.1-1.8); Alkaline Phosphatase 84 U/L (38-126); Aspartate Amino Transferase 19 U/L (17-59); Blood Urea Nitrogen 13 mg/dl (9-20); Carbon Dioxide 28 mmol/L (22.0-30.0); Chloride 103 mmol/L (98-107); Creatinine Clearance Estimated 150 mL/min (50-200); Estimated Glomerular Filt Rate 87 ml/min (>60); GFR (African American) 105 ML/MIN (>60); Globulin 3.6 g/dL (1.3-3.2); Sodium 138 mmol/L (136-145); Total Protein,Serum 6.7 g/dl (6.3-8.2)
[2022-01-11 06:45] LABS: Anion Gap 11.2 mEq/L (5-15); Calcium 8.4 mg/dl (8.4-10.2); Glucose 128 mg/dl (74-100); Potassium 4.2 mmoL/L (3.5-5.1)
[2022-01-11 06:48] LABS: Bilirubin,Total < 0.1 mg/dl (0.2-1.3)
[2022-01-11 08:00] VITALS: BP 170/80; PULSE 78; RESP 17; TEMP 36.6; O2SAT 98
--- NOTE | 2022-01-11 08:36 | EXP.ACUTE.PN ---
Subjective *Date: 01/11/22 *Time: 09:49 Interval history: Patient states he is feeling well this morning. He denies any pain. He has been having dressing changes by podiatry. He states he slept well and ate most of his breakfast. He wants to go back to [facility]. Medical Exam Vital signs and Labs for Last 24 Hours: Temp Pulse Resp BP Pulse Ox 97.9 F 78 17 170/80 H 98 01/11/22 08:00 01/11/22 08:00 01/11/22 08:00 01/11/22 08:00 01/11/22 08:00 Laboratory Results - last 24 hr 01/10/22 05:40: C-Reactive Protein 22.5 H D 01/10/22 08:33: ESR > 140 H 01/10/22 09:58: POC Glucose 162 H 01/10/22 11:55: POC Glucose 126 H 01/10/22 14:40: POC Glucose 264 H 01/10/22 17:16: POC Glucose 162 H 01/10/22 20:54: POC Glucose 149 H 01/11/22 05:36: POC Glucose 117 H 01/11/22 06:17: WBC 12.0 H, RBC 3.97 L, Hgb 10.5 L, Hct 31.9 L, MCV 80.6, MCH 26.5 L, MCHC 32.9, RDW 15.0, Plt Count 412 D, MPV 7.6, Neut % (Auto) 64.4, Lymph % (Auto) 21.9, [place] % (Auto) 6.9, Eos % (Auto) 6.1, Baso % (Auto) 0.8, Neut # (Auto) 7.7, Lymph # (Auto) 2.6, [place] # (Auto) 0.8, Eos # (Auto) 0.7 H, Baso # (Auto) 0.1 01/11/22 06:17: Sodium 138, Potassium 4.2, Chloride 103, Carbon Dioxide 28, Anion Gap 11.2, BUN 13, Creatinine 0.90 D, Estimated Creat Clear 150, Estimated GFR 87, Est GFR ( Amer) 105 D, Glucose 128 H, Calcium 8.4, Total Bilirubin < 0.1 L, AST 19, ALT 8 L, Alkaline Phosphatase 84, Total Protein 6.7, Albumin 3.1 L, Globulin 3.6 H, Albumin/Globulin Ratio 0.9 L I & O for Labs for Last 24 Hours: Intake & Output 01/08/22 01/09/22 01/10/22 01/11/22 11:59 11:59 11:59 11:59 Intake Total 240 / 240 1750 / 1750 1310 / 1310 Output Total 850 / 850 2350 / 2350 2575 / 2575 Balance -610 / -610 -600 / -600 -1265 / -1265 Weight 262 lb 5 oz 260 lb 9 oz 258 lb 4 oz Microbiology Reports for the Last 24 Hours: Microbiology 01/09/22 Unknown Foot,Left - Wound Gram Stain - Final 01/09/22 Unknown Foot,Left - Wound Wound Culture - Preliminary Gram Positive Cocci 01/09/22 12:40 Foot,Left - Wound Surgical Biopsy Culture - Preliminary NO GROWTH AFTER 24 HOURS 01/09/22 12:40 Foot,Left - Left Pinky Bone Culture - Preliminary NO GROWTH AFTER 24 HOURS Constitutional: Present no acute distress Respiratory: Present CTA bilaterally Cardiac: Present Reg Rate and Rhythm GI: Present soft; Absent distention or tenderness Comment:: left foot with SERGIO wrap in place Assessment and Plan *Assessment and plan (1) Abscess of skin or subcutaneous tissue: Status: Acute Qualifiers: Laterality: right Site of cutaneous abscess: extremity Site of cutaneous abscess of extremity: foot Qualified Code(s): L02.611 - Cutaneous abscess of right foot Category: Medical Code(s): L02.91 - Cutaneous abscess, unspecified (2) Cellulitis of left foot: Status: Acute Category: Medical Code(s): L03.116 - Cellulitis of left lower limb (3) Type 2 diabetes mellitus: Status: Acute Category: Medical Code(s): E11.9 - Type 2 diabetes mellitus without complications (4) History of MRSA infection: Status: Acute Category: Medical Code(s): Z86.14 - Personal history of Methicillin resistant Staphylococcus aureus infection (5) Small vessel arterial disease due to type 2 diabetes mellitus: Status: Acute Category: Medical Code(s): E11.51 - Type 2 diabetes mellitus with diabetic peripheral angiopathy without gangrene (6) Right bundle branch block: Status: Acute Category: Medical Code(s): I45.10 - Unspecified right bundle-branch block (7) Hypertension: Status: Acute Qualifiers: Hypertension type: unspecified Qualified Code(s): I10 - Essential (primary) hypertension Category: Medical Code(s): I10 - Essential (primary) hypertension
--- NOTE | 2022-01-11 09:14 | EXP.ORTH.PN ---
Subjective *Date: 01/11/22 *Time: 09:27 Interval history: Patient s/p left foot incision and drainage, left foot deep debridement of non-viable soft tissue, wound debridement and left foot open bone biopsy. Sitting up in bed, no acute distress noted. Denies pain to left foot. Left foot dressing changed by Podiatry. Incision and stitches intact.? Okay from Podiatry stand point for d/c once PT eval, has DME and PICC/IV abx arranged. Ortho Exam (Inpt) Vital signs and Labs for Last 24 Hours: Temp Pulse Resp BP Pulse Ox 97.9 F 78 17 170/80 H 98 01/11/22 08:00 01/11/22 08:00 01/11/22 08:00 01/11/22 08:00 01/11/22 08:00 Laboratory Results - last 24 hr 01/10/22 09:58: POC Glucose 162 H 01/10/22 11:55: POC Glucose 126 H 01/10/22 14:40: POC Glucose 264 H 01/10/22 17:16: POC Glucose 162 H 01/10/22 20:54: POC Glucose 149 H 01/11/22 05:36: POC Glucose 117 H 01/11/22 06:17: WBC 12.0 H, RBC 3.97 L, Hgb 10.5 L, Hct 31.9 L, MCV 80.6, MCH 26.5 L, MCHC 32.9, RDW 15.0, Plt Count 412 D, MPV 7.6, Neut % (Auto) 64.4, Lymph % (Auto) 21.9, [place] % (Auto) 6.9, Eos % (Auto) 6.1, Baso % (Auto) 0.8, Neut # (Auto) 7.7, Lymph # (Auto) 2.6, [place] # (Auto) 0.8, Eos # (Auto) 0.7 H, Baso # (Auto) 0.1 01/11/22 06:17: Sodium 138, Potassium 4.2, Chloride 103, Carbon Dioxide 28, Anion Gap 11.2, BUN 13, Creatinine 0.90 D, Estimated Creat Clear 150, Estimated GFR 87, Est GFR ( Amer) 105 D, Glucose 128 H, Calcium 8.4, Total Bilirubin < 0.1 L, AST 19, ALT 8 L, Alkaline Phosphatase 84, Total Protein 6.7, Albumin 3.1 L, Globulin 3.6 H, Albumin/Globulin Ratio 0.9 L I & O for Labs for Last 24 Hours: Intake & Output 01/08/22 01/09/22 01/10/22 01/11/22 23:59 23:59 23:59 23:59 Intake Total 240 / 240 1040 / 1040 1310 / 1310 710 / 710 Output Total 400 / 400 2300 / 2300 1950 / 2550 1575 / 1575 Balance -160 / -160 -1260 / -1260 -640 / -1240 -865 / -865 Weight 265 lb 262 lb 5 oz 260 lb 9 oz 258 lb 4 oz Microbiology Reports for the Last 24 Hours: Microbiology 01/09/22 Unknown Foot,Left - Wound Gram Stain - Final 01/09/22 Unknown Foot,Left - Wound Wound Culture - Preliminary Gram Positive Cocci 01/09/22 12:40 Foot,Left - Wound Surgical Biopsy Culture - Preliminary NO GROWTH AFTER 24 HOURS 01/09/22 12:40 Foot,Left - Left Pinky Bone Culture - Preliminary NO GROWTH AFTER 24 HOURS Constitutional: Present no acute distress Head: Present normocephalic ENT: Present mucous membranes moist Neck: Present normal inspection and trachea midline Respiratory: Present normal respiratory effort and able to speak in complete sentences Cardiac: Present Regular Rate and pedal pulses present GI: Present other (obesity) Rectal (male): Present deferred (male): Present deferred Extremities: Present normal capillary refill and calf tenderness (no calf tenderness) Skin: Present wounds (left foot ) Comment:: Date of procedure: 01/09/22. Procedure performed:: Left foot incision and drainage Left foot deep debridement of non-viable soft tissue, wound debridementLeft foot open bone biopsy. Incisions dry and intact. Neuro: Present oriented x 3 and moves all extremities Ankle: bilateral: normal inspection Feet/Toes: left: amputation (5th toe) and left: wound (s/p surgery) Feet w/LR Ind Top: 1. S/P left foot I & D, deep debridement of non-viable soft tissue, wound debridement, incisions with stitches dry and intact. Some bruising noted to the most lateral and plantar incisions. No evidence of wound dehiscence. No drainage or purulence noted. Assessment and Plan *Assessment and plan (1) Abscess of skin or subcutaneous tissue: Status: Acute Qualifiers: Laterality: right Site of cutaneous abscess: extremity Site of cutaneous abscess of extremity: foot Qualified Code(s): L02.611 - Cutaneous abscess of right foot Category: Medical Code(s):
--- NOTE | 2022-01-11 09:37 | EXP.DC.SUM ---
General Admission date:: 01/09/22 Discharge date: 01/11/22 HPI HPI HPI: 56-year-old male with poorly controlled type 2 diabetes, prior osteomyelitis of the left small toe status post amputation last year.? Additional history includes hypertension and prior skin infections.? He presents as referral from his physician's office.? He was being seen for his hypertension in the noted erythema and swelling of the left foot.? He states this has been going on for approximately 3 to 4 days after [place] [employer] [place] He has not been on any treatments, specifically no antibiotics for this thus far.? Denies any fevers, chills, nausea, vomiting or other systemic symptoms. The above as per ER documentation. Further to note patient does not recall any specific injury or causative factor.? He states the wound on the left foot has been draining.? He denies having any fever.? He has been able to walk without problems.? He has been a resident of [facility] for about a year.? His sister is present and helps with assessment. With evaluation in the emergency room white blood cell count was found to be elevated with mildly elevated inflammatory markers.? He has been started on IV vancomycin.? Foot x-ray reveals the following: FINDINGS: LEFT FOOT? Three views of the left foot demonstrate no acute fracture or dislocation. The visualized joint spaces are normally aligned.? The joint spaces are preserved.? There is a soft tissue defect in the dorsal midfoot with air in the soft tissues.? This is presumably air from an open wound.? Status post amputation of the 5th digit at the level of the mid metatarsal. IMPRESSION: Soft tissue defect in the dorsal midfoot with air in the soft tissues, presumably from an open wound. Hospital Course Hospital Course Hospital Course: The patient was admitted and started on IV vancomycin and meropenem. His blood pressure medications and insulin were ordered and he was placed on sliding scale insulin as well. Podiatry was consulted. He was able to sleep and eat and the pain in his foot improved. His blood sugars were stable. He was seen in consultation by podiatry and they performed a left foot wound culture and planned to take him to the OR for left foot incision and drainage and debridement. He was seen by cardiology due to an abnormal EKG with right bundle branch block. An echo was ordered and his LVEF was normal, therefore he was able to proceed with surgery. He was taken to the OR on 01/09/2022 for left foot incision and drainage, left foot deep debridement of nonviable soft tissue, and a left foot open bone biopsy. He was to remain nonweightbearing in a postop shoe and was to continue antibiotics. The patient tolerated the procedure well and had no further pain. His dressing was changed daily by podiatry and a PICC line was placed for further antibiotics. He was seen by PT for gait training and DME evaluation. Podiatry felt he could be discharged on 1 week of meropenem and 4 weeks of vancomycin. He will need daily dressing changes as follows: Clean with saline or Betadine. Apply Betadine soaked gauze, dry gauze, Kerlix, and an Toni. He is to be partial weightbearing to the left heel only in a postop shoe/short fracture boot with a walker. He will follow-up with podiatry on 01/16/2022 at 1500. Also, regarding his elevated BP, Clonidine was added in the ER but BP has continued to run high. At discharge, will d/c Clonidine and increase dose of his Valsartan and Norvasc. Will need ongoing monitoring of BP and adjustment of medications at the retirement. Exam Data for Last 24 hours Vital signs and Labs for Last 24 Hours: Temp Pulse Resp BP Pulse Ox 97.9 F 78 17 170/80 H 98 01/11/22 08:00 01/11/22 08:00 01/11/22 08:00 01/11/22 08:00 01/11/22 08:00 Laboratory Results - last 24 hr 01/10/22 09:58: POC Glucose 162 H 01/10/22 11:55: POC Glucose 126 H 01/10/22 14:40: POC Glucos
[2022-01-11 10:58] VITALS: BP 171/84; PULSE 78; RESP 16; TEMP 36.8; O2SAT 98
[2022-01-11 11:01] LABS: Coronavirus 19, PCR Not Detected (NotDetected); Influenza A, PCR Not Detected (NotDetected); Influenza B, PCR Not Detected (NotDetected)
[2022-01-11 21:07] LABS: POC Glucose,Bedside 152 (70-110)
== END 2022-01-11 12:44 | disposition home or self-care (01) | DRG 623 ==
LOC: ER 15:48 → 2ND 16:16
PROVIDERS: Physician Assistant; Podiatrist; Admitting Provider Family Medicine; Emergency Provider Emergency Medicine; PCP Family Medicine; Visit Provider Family Medicine
PROC: 0JBR0ZZ Excision of Left Foot Subcutaneous Tissue and Fascia, Open Approach (ICD-10-PCS; principal; 2022-01-09 11:30)
DX: E11.621 Type 2 diabetes mellitus with foot ulcer (principal); L02.611 Cutaneous abscess of right foot; L02.612 Cutaneous abscess of left foot; M86.272 Subacute osteomyelitis, left ankle and foot; E11.628 Type 2 diabetes mellitus with other skin complications; I10 Essential (primary) hypertension; E11.51 Type 2 diabetes mellitus with diabetic peripheral angiopathy without gangrene; Z79.4 Long term (current) use of insulin; E11.69 Type 2 diabetes mellitus with other specified complication; Z89.422 Acquired absence of other left toe(s); Z86.14 Personal history of Methicillin resistant Staphylococcus aureus infection
CPT/HCPCS: 11043; 20240; 36569; 36415; 71045; 73630; 80048; 80053; 80061; 80202; 82962; 83036; 84145; 85025; 85651; 86140; 87070; 87077; 87186; 87205; 88304; 93005; 93306; 93923; 97116; 97162; 99285; C1751; C9803; G0378; J2185; J2405; J2543; J3370; U0003; U0005

== ENCOUNTER → 2022-01-22 11:27 | Outpatient (CLI) | payer MEDICAID, SELFPAY ==
--- NOTE | 2022-01-22 11:28 | NM_ITS ---
APPROVED REPORT Exam: Nuclear Stress Test Indication: obesity, htn, dm, fm hx, abn ekg Patient Location: Outpatient Stress Tech: Clau Marquez DC Tech:SUSANNAH Augustine RT (R)(N)(M) Ht: 5 ft 11 in Wt: 260 lbs HR: 67 bpm BP: 164/82 mmHg BSA: 2.36 m2 TID: 1.04 BMI: 36.2 History: obesity, htn, dm, fm hx, abn ekg Procedure: Patient received a 0.4 mg of intravenous Lexiscan, resting heart rate 67 bpm, resting blood pressure 164/82 mmHg, with Lexiscan maximum heart rate achived was 80 bpm which is Less than 85 % of the maximum predicted heart rate and blood pressure was 157/72 mmHg. With Lexiscan, patient denied any complaint of chest pain. Electrocardiogram Resting electrocardiogram shows sinus rhythm, intraventricular conduction delay, inferior lateral ST-T changes consider subendocardial ischemia. Lexiscan less than 1.[address] segment depression noted from the baseline EKG. The EKG portion of the Lexiscan is nondiagnostic. Cardiac Stress and Resting SPECT Images: Cardiac Stress and Resting SPECT images were obtained using technetium 99m Myoview 31.9 mCi stress and 9.73 mCi at rest. Gated SPECT analysis of segmental wall motion and calculation of the ejection fraction also normal. Prone images were also obtained. Cardiac stress and rest SPECT images show uniform myocardial activity without segmental perfusion abnormality, computer derived ejection fraction is 61% with no regional wall motion abnormality, right ventricle is normal size and contractility. Conclusion: 1. The EKG portion of the Lexiscan is nondiagnostic. 2. No scintigraphic evidence of reversible ischemia seen, computer derived ejection fraction is 61% with no regional wall motion abnormality, right ventricle is normal size and contractility. 3. Normal Lexiscan is associated Electronically signed by : Edmond Washington MD 01/23/2022 06:46:01
--- NOTE | 2022-01-22 13:04 | CA_ITS ---
APPROVED REPORT Exam: Pharmacologic Technologist: Clau New, Ht: 5 ft 11 in Wt: 269 lbs BSA: 2.39 m2 HR: 67 bpm BP: 164/82 mmHg Medical History Medications: Metoprolol,,,,, INSULIN,,,,, Valsartan,,,,, Toprol XL,,,,, Amlodepine,,,,, Stress Test Details Test: LEXISCAN Reason for pharmacologic stress test: physical limitation. HR Resting HR: 67 bpm Max Heart Rate (APMHR): 163.902392 bpm Max HR Achieved: 82 bpm Target HR (85% APMHR): 138.065838 bpm % of APMHR: 50.31 Recovery HR: 76 bpm BP Resting BP: 164/82 mmHg Max BP: 164/82 mmHg Recovery BP: 160.0/75.0 mmHg ECG Clinical Exercise duration: 04:00 min Highest Stage Achieved: Exercise capacity: 1.0 METs Stress ECG Conclusion Symptoms: SOA Arrhythmias/Ectopy: Occasional PAC/PVC ST-T Changes: <1.5mm ST Changes Electronically signed by : Edmond Washington MD 01/23/2022 06:42:36
== END ==
PROVIDERS: PCP Family Medicine; Visit Provider Physician Assistant
DX: E11.51 Type 2 diabetes mellitus with diabetic peripheral angiopathy without gangrene (principal); E11.628 Type 2 diabetes mellitus with other skin complications; L02.611 Cutaneous abscess of right foot; L02.612 Cutaneous abscess of left foot; L03.116 Cellulitis of left lower limb; L08.9 Local infection of the skin and subcutaneous tissue, unspecified; I10 Essential (primary) hypertension; I45.10 Unspecified right bundle-branch block; R94.31 Abnormal electrocardiogram [ECG] [EKG]; Z79.4 Long term (current) use of insulin
CPT/HCPCS: 78452; 93017; A9502; J2785

== ENCOUNTER → 2022-01-29 13:03 | Outpatient (CLI) | payer MEDICAID, SELFPAY ==
[2022-01-29 14:25] LABS: Anion Gap 15.4 mEq/L (5-15); Blood Urea Nitrogen 16 mg/dl (9-20); Calcium 8.6 mg/dl (8.4-10.2); Carbon Dioxide 25 mmol/L (22.0-30.0); Chloride 103 mmol/L (98-107); Estimated Glomerular Filt Rate 87 ml/min (>60); GFR (African American) 105 ML/MIN (>60); Glucose 155 mg/dl (74-100); Potassium 4.4 mmoL/L (3.5-5.1); Sodium 139 mmol/L (136-145)
[2022-01-29 14:31] LABS: Vancomycin,Trough 15.3 ug/mL (5.0-10.0)
[2022-01-30 10:03] LABS: Basophils # 0.1 K/mm3 (0-0.2); Basophils % 0.9 % (0.1-2.0); Eosinophils # 0.9 K/mm3 (0.0-0.4); Eosinophils % 7.8 % (0.1-12.0); Hematocrit 33.1 % (42.0-52.0); Hemoglobin 10.6 g/dL (14.1-18.0); Lymphocytes # 2.4 K/mm3 (0.7-4.5); Lymphocytes % 20.2 % (10-50); Mean Corpuscular HGB Conc 31.9 g/dL (31.8-35.4); Mean Corpuscular Hemoglobin 26.7 pg (27.0-31.2); Mean Corpuscular Volume 83.7 fl (80-94); Monocytes # 0.8 K/mm3 (0.1-1.0); Neutrophils # 7.5 K/mm3 (1.8-7.8); Neutrophils % 64.1 % (37.0-80.0); Platelet Count 391 K/mm3 (142-424); Red Blood Count 3.96 M/mm3 (4.60-6.20); Red Cell Distribution Width 15.5 % (11.5-17.5); White Blood Count 11.7 K/mm3 (4.8-10.8)
[2022-01-30 10:04] LABS: Erythrocyte Sedimentation Rate 109 mm/hr (0-20)
[2022-01-30 10:14] LABS: Chloride 103 mmol/L (98-107); Sodium 141 mmol/L (136-145)
[2022-01-30 10:17] LABS: Alanine Aminotransferase 10 U/L (12-78); Albumin Level 3.5 g/dl (3.5-5.0); Alkaline Phosphatase 88 U/L (38-126); Anion Gap 16.5 mEq/L (5-15); Aspartate Amino Transferase 24 U/L (17-59); Bilirubin,Total 0.2 mg/dl (0.2-1.3); Blood Urea Nitrogen 16 mg/dl (9-20); Calcium 8.7 mg/dl (8.4-10.2); Carbon Dioxide 26 mmol/L (22.0-30.0); Estimated Glomerular Filt Rate 100 ml/min (>60); GFR (African American) 121 ML/MIN (>60); Globulin 3.4 g/dL (1.3-3.2); Glucose 153 mg/dl (74-100); Potassium 4.5 mmoL/L (3.5-5.1); Total Protein,Serum 6.9 g/dl (6.3-8.2)
[2022-01-30 10:23] LABS: C-Reactive Protein 4.6 mg/L (0-4)
[2022-01-30 11:14] LABS: Hemoglobin A1C 6.5 % (4.0-6.0)
== END ==
PROVIDERS: Podiatrist; PCP Family Medicine; Visit Provider Family Medicine
DX: L02.612 Cutaneous abscess of left foot (principal); L97.529 Non-pressure chronic ulcer of other part of left foot with unspecified severity
CPT/HCPCS: 80048; 80053; 80202; 83036; 85025; 85651; 86140

== ENCOUNTER → 2022-02-19 14:03 | Outpatient (CLI) | payer MEDICAID, SELFPAY ==
[2022-02-19 14:47] LABS: Basophils # 0.1 K/mm3 (0-0.2); Basophils % 0.5 % (0.1-2.0); Eosinophils # 0.7 K/mm3 (0.0-0.4); Eosinophils % 6.4 % (0.1-12.0); Hematocrit 32.8 % (42.0-52.0); Hemoglobin 10.5 g/dL (14.1-18.0); Lymphocytes # 2.4 K/mm3 (0.7-4.5); Lymphocytes % 22.5 % (10-50); Mean Corpuscular HGB Conc 32.1 g/dL (31.8-35.4); Mean Corpuscular Hemoglobin 25.6 pg (27.0-31.2); Mean Corpuscular Volume 79.7 fl (80-94); Mean Platelet Volume 7.6 fl (7.4-10.4); Monocytes # 0.9 K/mm3 (0.1-1.0); Monocytes % 8.6 % (1.7-9.3); Neutrophils # 6.5 K/mm3 (1.8-7.8); Neutrophils % 62.1 % (37.0-80.0); Platelet Count 374 K/mm3 (142-424); Red Blood Count 4.11 M/mm3 (4.60-6.20); Red Cell Distribution Width 15.6 % (11.5-17.5); White Blood Count 10.5 K/mm3 (4.8-10.8)
[2022-02-19 15:10] LABS: Alanine Aminotransferase 9 U/L (12-78); Albumin Level 3.9 g/dl (3.5-5.0); Albumin/Globulin Ratio 1.2 (1.1-1.8); Alkaline Phosphatase 100 U/L (38-126); Anion Gap 15.7 mEq/L (5-15); Aspartate Amino Transferase 21 U/L (17-59); Bilirubin,Total 0.2 mg/dl (0.2-1.3); Blood Urea Nitrogen 17 mg/dl (9-20); Calcium 9.4 mg/dl (8.4-10.2); Carbon Dioxide 29 mmol/L (22.0-30.0); Chloride 103 mmol/L (98-107); Estimated Glomerular Filt Rate 77 ml/min (>60); GFR (African American) 93 ML/MIN (>60); Globulin 3.2 g/dL (1.3-3.2); Glucose 143 mg/dl (74-100); Potassium 4.7 mmoL/L (3.5-5.1); Sodium 143 mmol/L (136-145); Total Protein,Serum 7.1 g/dl (6.3-8.2)
[2022-02-19 15:16] LABS: C-Reactive Protein 2.9 mg/L (0-4)
[2022-02-19 16:00] LABS: Erythrocyte Sedimentation Rate 87 mm/hr (0-20)
== END ==
PROVIDERS: PCP Family Medicine; Visit Provider Nurse Practitioner Family
DX: Z98.890 Other specified postprocedural states (principal); L97.522 Non-pressure chronic ulcer of other part of left foot with fat layer exposed
CPT/HCPCS: 36415; 80053; 85025; 85651; 86140

== ENCOUNTER 2022-11-09 10:41 | Inpatient (IN) | payer MEDICAID, SELFPAY ==
[2022-11-09] VITALS (11 sets, daily range): BP systolic 115–152; BP diastolic 59–76; PULSE 64–80; RESP 16–20; TEMP 36.6–38.1; O2SAT 93–98; BMI 34.8; BMI 40.1
--- NOTE | 2022-11-09 11:01 | CT_ITS ---
FINAL REPORT TECHNIQUE: After the administration of intravenous contrast, axial images were obtained through the abdomen and pelvis by computed tomography. This study was performed with technique to keep radiation doses as low as reasonably achievable, (ALARA). Individualized dose reduction techniques using automated exposure control or adjustment of the MA and/or KV according to the patient's size were employed. CLINICAL HISTORY: RLQ abd pain FINDINGS: Abdomen: The lung bases are clear. The liver is normal in size and attenuation. The spleen is unremarkable. The adrenals are normal. There is a mass at the tail the pancreas measuring up to 2.7 cm. The kidneys enhance appropriately. The aorta is normal in caliber. There is no free fluid or adenopathy. Pelvis: The appendix is not identified. However, there are marked inflammatory changes noted at the ileocecal region favored to be related to chronic, ruptured appendicitis. There is wall thickening surrounding an extraluminal air collection. Necrotic perforated tumor involving the appendix or distal small bowel is not excluded. However, this is favored to represent a walled off ruptured appendix encased by inflamed distal ileum. There is a midline abdominal wall hernia containing fat. Hernia defect measures 33 mm with hernia sac measuring 74 mm. The urinary bladder is unremarkable. There is no free fluid or adenopathy. IMPRESSION: Large inflammatory process in the right lower quadrant, favor chronic ruptured appendicitis. Although, necrotic tumor with contained perforation not excluded. Incidental mass of the pancreatic tail. These findings were discussed with the emergency room physician at 1:01 PM. Reviewed, Interpreted and Dictated by Shannan Baca MD Transcribed by Meghan Kay Authenticated and . [facility]
--- NOTE | 2022-11-09 11:03 | HMH.EDGENADL ---
Discharge Plan Disposition Patient Disposition: Admitted Chief Complaint: Abdominal Pain Prescriptions Prescriptions: No Action carvedilol [Coreg] 12.5 mg tablet 12.5 mg PO BID Qty: 60 5RF Rx Instructions: must administer with a meal/food insulin glargine [Lantus U-100 Insulin] 100 unit/mL solution 24 unit SQ HS insulin lispro 100 unit/mL solution 10 unit SQ TID acetaminophen 500 mg capsule 500 mg PO Q6H PRN (Reason: Pain) ferrous sulfate 134 mg (27 mg iron) tablet 134 mg PO DAILY valsartan 320 mg tablet 320 mg PO DAILY Qty: 30 0RF amlodipine 10 mg tablet 10 mg PO DAILY Qty: 30 0RF Meropenem [Meropenem 1gm Vial] 1 GM 0.9 % Sodium Chloride [Sod Chloride 0.9% MB+ 100mL] 100 ML 100 mls/hr IV Q8H Ordered By: Wisam Pena MD Last Taken: Unknown spironolactone 25 mg Tablet 25 mg PO BID hydrochlorothiazide 25 mg Tablet 25 mg PO BID Clinical Impressions Clinical Impression: Ruptured appendicitis, Severe sepsis, Mass of pancreas Instructions Patient Instructions: DI for Acute Abdominal Pain Discharge ED Provider: Deuce Echeverria General Adult HPI General Chief complaint: Abdominal Pain Stated complaint: RLQ pain Time Seen by Provider: 11/09/22 10:58 Mode of Arrival: EMS Source of Information: Patient Limitations: No Limitations Description of Symptoms (Recalled from ER Triage Doc. by RN): pt presents from [facility] per ems. describes RLQ abd pain that started last night with associated diarrhea. History of Present Illness HPI narrative: Patient is a 57-year-old male presenting from [facility] with right lower quadrant abdominal pain and diarrhea over the last 24 hours. States he had numerous episodes of diarrhea since yesterday no blood in it no fevers or chills. No nausea or vomiting. No history of abdominal surgeries that he states. He he has a known history of diabetes but denies any other medical problems. No urination changes such as materia dysuria urgency or frequency. No fevers or chills. Pain has been slowly worsening since last night. Related Data Home Medications Medication Instructions Recorded Confirmed acetaminophen 500 mg capsule 500 mg PO Q6H PRN Pain 01/08/22 08/21/22 insulin glargine 100 unit/mL 24 unit SQ HS Diabetes 01/08/22 08/21/22 subcutaneous solution (Lantus U-100 Insulin) insulin lispro 100 unit/mL 10 unit SQ TID Diabetes 01/08/22 08/21/22 subcutaneous solution ferrous sulfate 134 mg (27 mg 134 mg PO DAILY 03/13/22 08/21/22 iron) tablet hydrochlorothiazide 25 mg tablet 25 mg PO BID High Blood Pressure 11/09/22 11/09/22 spironolactone 25 mg tablet 25 mg PO BID Edema 11/09/22 11/09/22 Previous Rx's Medication Instructions Recorded Meropenem [Meropenem 1gm Vial] 1 gm 100 mls/hr IV Q8H 01/11/22 amlodipine 10 mg tablet 10 mg PO DAILY #30 tabs 01/11/22 valsartan 320 mg tablet 320 mg PO DAILY #30 tabs 01/11/22 carvedilol 12.5 mg tablet (Coreg) 12.5 mg PO BID #60 tabs 01/31/22 Allergies Allergy/AdvReac Type Severity Reaction Status Date / Time No Known Allergies Allergy Verified 08/21/22 10:53 [facility] Disclaimer: The information contained in this section may have been updated after the patient was seen, as this information can be updated by other users. Medical History Abnormal electrocardiogram [ECG] [EKG] Amputation of fifth toe of left foot Amputation of toe of left foot History of MRSA infection Right bundle branch block Family History Father Cancer CHF (congestive heart failure) Sister Hypertension Other Coronary artery disease Social History Smoking Status: Never smoker alcohol intake: never substance use type: denies use current occupational status
[2022-11-09 11:12] LABS: Basophils % 0.1 % (0.1-2.0); Eosinophils % 0.1 % (0.1-12.0); Hematocrit 34.4 % (42.0-52.0); Hemoglobin 10.9 g/dL (14.1-18.0); Lymphocytes # 1.8 K/mm3 (0.7-4.5); Lymphocytes % 5.9 % (10-50); Mean Corpuscular HGB Conc 31.6 g/dL (31.8-35.4); Mean Corpuscular Hemoglobin 25.1 pg (27.0-31.2); Mean Corpuscular Volume 79.4 fl (80-94); Mean Platelet Volume 7.6 fl (7.4-10.4); Monocytes # 1.5 K/mm3 (0.1-1.0); Monocytes % 4.9 % (1.7-9.3); Neutrophils # 27.3 K/mm3 (1.8-7.8); Platelet Count 390 K/mm3 (142-424); Red Blood Count 4.33 M/mm3 (4.60-6.20); White Blood Count 30.7 K/mm3 (4.8-10.8)
[2022-11-09 11:15] LABS: MANUAL DIFFERENTIAL MANUAL DIFFERENTIAL (MANUAL DIFF)
[2022-11-09 11:16] LABS: Chloride 100 mmol/L (98-107); Sodium 135 mmol/L (136-145)
[2022-11-09 11:18] LABS: Blood Urea Nitrogen 30 mg/dl (9-20); Creatinine Clearance Estimated 92 mL/min (50-200); Estimated Glomerular Filt Rate 52 ml/min (>60); GFR (African American) 63 ML/MIN (>60)
[2022-11-09 11:19] LABS: Alanine Aminotransferase 21 U/L (12-78); Albumin Level 3.8 g/dl (3.5-5.0); Albumin/Globulin Ratio 0.9 (1.1-1.8); Alkaline Phosphatase 80 U/L (38-126); Aspartate Amino Transferase 26 U/L (17-59); Bilirubin,Total 1.1 mg/dl (0.2-1.3); Calcium 9.2 mg/dl (8.4-10.2); Carbon Dioxide 25 mmol/L (22.0-30.0); Globulin 4.1 g/dL (1.3-3.2); Glucose 204 mg/dl (74-100); Lactic Acid 2.4 mmol/L (0.7-2.1); Lipase 31 U/L (23-300); Total Protein,Serum 7.9 g/dl (6.3-8.2)
[2022-11-09 11:27] LABS: Hypochromasia 1+; Lymphocytes % 6 % (10-50); Monocytes % 3 % (2-9); Neutrophils % 91 % (42-76); Platelet Estimate Normal; Total Cells Counted 100
--- NOTE | 2022-11-09 12:50 | PC.NURSE ---
pt given urinal
--- NOTE | 2022-11-09 13:13 | PC.NURSE ---
Dr Echeverria speaking with Dr Junior
--- NOTE | 2022-11-09 13:13 | PC.NURSE ---
Dr Echeverria speaking with Dr Ramos
--- NOTE | 2022-11-09 13:16 | PC.NURSE ---
DR RESTREPO HAS AGREED TO ADMIT PT
--- NOTE | 2022-11-09 14:38 | EXP.SURG.CON ---
History of Present Illness *Admission Date: 11/09/22 *Reason for visit:: Abdominal pain *History of present illness: Patient is a 57-year-old male with diabetes who is snf patient at [facility]. He presented to the emergency department via EMS with reported right lower quadrant pain occurring just last night with some associated diarrhea. Symptoms of been over less than 24 hours reportedly. Denies any blood. No history of prior abdominal surgeries. Evaluation in the emergency department revealed the patient to be febrile. He had a white blood cell count of 30,700. Patient was resuscitated in the ER with IV fluids and antibiotics due to criteria for sepsis. Examination revealed findings of regional peritonitis. He had a CT scan which revealed a large inflammatory process in the right lower quadrant. Chronic ruptured appendicitis was favored although necrotic tumor with contained perforation cannot be excluded. Interestingly there is an incidental mass in the pancreatic tail measuring up to 2.7 cm. There is extraluminal air. Also of note there is a midline abdominal wall hernia containing fat at the umbilicus with defect measuring 33 mm. Patient was admitted to the hospital service and surgical consultation was obtained. [facility] Disclaimer: The information contained in this section may have been updated after the patient was seen, as this information can be updated by other users. Medical History Abnormal electrocardiogram [ECG] [EKG] Amputation of fifth toe of left foot Amputation of toe of left foot History of MRSA infection Right bundle branch block Family History Father Cancer CHF (congestive heart failure) Sister Hypertension Other Coronary artery disease Social History Smoking Status: Never smoker alcohol intake: never substance use type: denies use current occupational status: other Travel in the last 8 weeks: None Review of Systems Review of Systems Review of systems:: unable to obtain Meds Home Medications and Allergies Home Medications Medication Instructions Recorded Confirmed Type acetaminophen 500 mg capsule 500 mg PO Q6H PRN Pain 01/08/22 08/21/22 History insulin glargine 100 unit/mL 24 unit SQ HS Diabetes 01/08/22 08/21/22 History subcutaneous solution (Lantus U-100 Insulin) insulin lispro 100 unit/mL 10 unit SQ TID Diabetes 01/08/22 08/21/22 History subcutaneous solution Meropenem [Meropenem 1gm Vial] 1 gm 100 mls/hr IV Q8H 01/11/22 08/21/22 Rx amlodipine 10 mg tablet 10 mg PO DAILY #30 tabs 01/11/22 08/21/22 Rx valsartan 320 mg tablet 320 mg PO DAILY #30 tabs 01/11/22 08/21/22 Rx carvedilol 12.5 mg tablet (Coreg) 12.5 mg PO BID #60 tabs 01/31/22 08/21/22 Rx ferrous sulfate 134 mg (27 mg 134 mg PO DAILY 03/13/22 08/21/22 History iron) tablet hydrochlorothiazide 25 mg tablet 25 mg PO BID High Blood Pressure 11/09/22 11/09/22 History spironolactone 25 mg tablet 25 mg PO BID Edema 11/09/22 11/09/22 History New Prescriptions to Start Prescriptions: Allergies Allergy/AdvReac Type Severity Reaction Status Date / Time No Known Allergies Allergy Verified 08/21/22 10:53 Exam (Inpt) Vital signs and Labs for Last 24 Hours: Temp Pulse Resp BP Pulse Ox O2 Del Method 100.5 F H 73 20 122/62 94 L Room Air 11/09/22 10:41 11/09/22 12:31 11/09/22 12:31 11/09/22 12:31 11/09/22 12:31 11/09/22 10:41 Laboratory Results - last 24 hr 11/09/22 10:58: WBC 30.7 H*, RBC 4.33 L, Hgb 10.9 L, Hct 34.4 L, MCV 79.4 L, MCH 25.1 L, MCHC 31.6 L, RDW 16.0, Plt Count 390, MPV 7.6, Neut % (Auto) 89.0 H, Lymph % (Auto) 5.9 L, [place] % (Auto) 4.9, Eos % (Auto) 0.1, Baso % (Auto) 0.1, Neut # (Auto) 27.3 H, Lymph # (Auto) 1.8, [place] # (Auto) 1.5 H, Eos # (Auto) 0.0, Baso # (Auto) 0.0, Total Counted 100,
--- NOTE | 2022-11-09 14:39 | ECG_ITS ---
APPROVED REPORT Exam: Resting ECG HR:69 bpm ECG Measurements Heart Rate 69 AXES AK 171 P 7 QRSd 162 QRS -23 QT 428 T 212 QTc 447 Conclusion SINUS RHYTHM BORDERLINE LEFT AXIS DEVIATION [QRS AXIS < -20] RIGHT BUNDLE BRANCH BLOCK [120+ ms QRS DURATION, UPRIGHT V1, 40+ ms S IN I/aVL/V4/V5/V6] MODERATE T-WAVE ABNORMALITY, CONSIDER LATERAL ISCHEMIA [-0.1+ mV T-WAVE IN I/aVL/V5/V6] MODERATE T-WAVE ABNORMALITY, CONSIDER INFERIOR ISCHEMIA [-0.1+ mV T-WAVE IN II/aVF] ABNORMAL ECG UNCONFIRMED REPORT Electronically signed by : Alex George MD 11/09/2022 16:14:39
--- NOTE | 2022-11-09 14:39 | EXP.HP ---
History of Present Illness *Admission Date: 11/09/22 *Reason for visit:: abdominal pain *History of present illness: This is a 57-year-old male with PMHx Diabetes, HTN and Obesity presenting from [facility] with right lower quadrant abdominal pain and diarrhea over the last 24 hours. Stated he had numerous episodes of diarrhea since yesterday no blood in it no fevers or chills. No nausea or vomiting. No history of abdominal surgeries that he stated. He he has a known history of diabetes but denies any other medical problems. No urination changes such as materia dysuria urgency or frequency. No fevers or chills. Pain has been slowly worsening since last night. History taken from ER documentation. patient admitted and taken to OR. [facility] Disclaimer: The information contained in this section may have been updated after the patient was seen, as this information can be updated by other users. Medical History Abnormal electrocardiogram [ECG] [EKG] Amputation of fifth toe of left foot Amputation of toe of left foot History of MRSA infection Right bundle branch block Family History Coronary artery disease CHF (congestive heart failure) Father Cancer Father Hypertension Sister Social History (Updated 11/09/22 @ 22:54 by Eboni De Los Santos RN) Smoking Status: Never smoker alcohol intake: never substance use type: denies use current occupational status: other Travel in the last 8 weeks: None Review of Systems Review of Systems Review of systems:: pertinent systems reviewed and negative unless documented below Meds Home Medications and Allergies Home Medications Medication Instructions Recorded Confirmed Type insulin glargine 100 unit/mL 30 unit SQ HS Diabetes 01/08/22 11/10/22 History subcutaneous solution (Lantus U-100 Insulin) insulin lispro 100 unit/mL 10 unit SQ TID Diabetes 01/08/22 11/10/22 History subcutaneous solution ferrous sulfate 134 mg (27 mg 134 mg PO DAILY Supplement 03/13/22 11/10/22 History iron) tablet hydrochlorothiazide 25 mg tablet 25 mg PO BID High Blood Pressure 11/09/22 11/09/22 History spironolactone 25 mg tablet 25 mg PO BID Edema 11/09/22 11/09/22 History amlodipine 10 mg tablet 10 mg PO DAILY High Blood Pressure 11/10/22 11/10/22 History carvedilol 12.5 mg tablet (Coreg) 12.5 mg PO BID High Blood Pressure 11/10/22 11/10/22 History valsartan 320 mg tablet 320 mg PO DAILY High Blood Pressure 11/10/22 11/10/22 History New Prescriptions to Start Prescriptions: Allergies Allergy/AdvReac Type Severity Reaction Status Date / Time No Known Allergies Allergy Verified 08/21/22 10:53 Exam Data for Last 24 hours Vital signs and Labs for Last 24 Hours: Temp Pulse Resp BP Pulse Ox O2 Del Method 100.5 F H 73 20 122/62 94 L Room Air 11/09/22 10:41 11/09/22 12:31 11/09/22 12:31 11/09/22 12:31 11/09/22 12:31 11/09/22 10:41 Laboratory Results - last 24 hr 11/09/22 10:58: WBC 30.7 H*, RBC 4.33 L, Hgb 10.9 L, Hct 34.4 L, MCV 79.4 L, MCH 25.1 L, MCHC 31.6 L, RDW 16.0, Plt Count 390, MPV 7.6, Neut % (Auto) 89.0 H, Lymph % (Auto) 5.9 L, [place] % (Auto) 4.9, Eos % (Auto) 0.1, Baso % (Auto) 0.1, Neut # (Auto) 27.3 H, Lymph # (Auto) 1.8, [place] # (Auto) 1.5 H, Eos # (Auto) 0.0, Baso # (Auto) 0.0, Total Counted 100, Neutrophils % (Manual) 91 H, Lymphocytes % (Manual) 6 L, Monocytes % (Manual) 3, Platelet Estimate Normal, RBC Morphology Not Reportable, Hypochromasia 1+, Sodium 135 L, Potassium 4.0, Chloride 100, Carbon Dioxide 25, Anion Gap 14.0, BUN 30 H, Creatinine 1.40 H, Estimated Creat Clear 92, Estimated GFR 52 L, Est GFR ( Amer) 63, Glucose 204 H, Lactate 2.4 H, Calcium 9.2, Total Bilirubin 1.1, AST 26, ALT 21, Alkaline Phosphatase 80, Total Protein 7.9, Albumin 3.8, Globulin 4.1 H, Albumin/Globulin Ratio 0.9 L, Lipase 31 I & O fo
--- NOTE | 2022-11-09 14:58 | SUR.PREOP ---
Katy Hollins PCI SECURITY CONSULTANT okay with EKG, also spoke with Swati, pt's sister and POA and got verbal phone consent x2 nurses.
[2022-11-09 15:08] LABS: Reflex Lactic Add Lactic Reflex
[2022-11-09 15:20] LABS: Hemoglobin A1C 8.3 % (4.0-6.0)
--- NOTE | 2022-11-09 16:07 | EXP.ANES.CKL ---
[facility] Disclaimer: The information contained in this section may have been updated after the patient was seen, as this information can be updated by other users. Medical History Abnormal electrocardiogram [ECG] [EKG] Amputation of fifth toe of left foot Amputation of toe of left foot History of MRSA infection Right bundle branch block Family History Coronary artery disease CHF (congestive heart failure) Father Cancer Father Hypertension Sister Social History Smoking Status: Never smoker alcohol intake: never substance use type: denies use current occupational status: other Travel in the last 8 weeks: None [facility] Anesthesia Checklist Patient Identification Patient Identification: Arm Band Structural Data Admitted From: Emergency Dept Planned Operative Procedure/s: Laparoscopic Appendectomy Possible Laparotomy Consent for Planned Operative Procedure(s) Verified: Yes Verified Documents: Surgical Consent and History and Physical NPO Status Verified Time NPO: 00:00 Additional verifications Anesthesia Reactions: No Airway Assessment C-Spine Mobility Assessed: Yes TMJ Mobility Assessed: Yes Dentition: Good Dentition Neurological Assessment Level of Consciousness: Awake and Alert Anesthesia Plan Anesthesia Risk discussed: Yes Anesthesia Plan: Verified ASA Class: III (E) Anesthesia Type: General
--- NOTE | 2022-11-09 16:22 | SUR.OPER ---
1505 laparoscopic table setup and counted. Open/major pack table set up and counted separately on different table to keep counts separate. Decision to go open at 1558. Lapraoscopic table counts completed/correct and table completely removed from room. 1600-open incision made. OPEN/MAIN SET TABLE INITIAL COUNT Instruments 99+3 suction blades=2 Suture=0 HYPO=0 Bovie+1 Laps-20 Rays-20 Bookwalter=36 See separate notes for final counts.
--- NOTE | 2022-11-09 17:18 | SUR.OPER ---
1730- family updated of pt current status via lefty day
--- NOTE | 2022-11-09 18:16 | SUR.OPER ---
1820= final counts for open table instruments. All counts correct at this time. Instruments:99+3 suction+36 Bookwalter+4 bowel clamps+4 bowel clamp covers Blades: 2 Suture: +20=20 Bovie:1 Laps:20+15=35 Rays: 20 Reel:+1=1
[2022-11-09 18:40] LABS: POC Glucose,Bedside 232 (70-110)
--- NOTE | 2022-11-09 18:55 | EXP.OP.NOTE ---
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 He presented to the emergency department via EMS with reported right lower quadrant pain occurring just last night with some associated diarrhea. Symptoms present over less than 24 hours reportedly. Denies any blood. No history of prior abdominal surgeries. Evaluation in the emergency department revealed the patient to be febrile. He had a white blood cell count of 30,700. He had an elevated lactate. Patient was resuscitated in the ER with IV fluids and antibiotics due to meeting criteria for sepsis. Examination revealed findings of regional peritonitis. He had a CT scan which revealed a large inflammatory process in the right lower quadrant. Chronic ruptured appendicitis was favored although necrotic tumor with contained perforation cannot be excluded. Interestingly there is an incidental mass in the pancreatic tail measuring up to 2.7 cm. There is extraluminal air. Also of note there is a midline abdominal wall hernia containing fat at the umbilicus with defect measuring 33 mm. Patient was admitted to the hospitalist service and surgical consultation was obtained. Patient was seen and examined and imaging reviewed. Given the very short duration of his symptoms do seem possible and likely that he had appendicitis. However given the findings on CT scan there was concern for severe complicated appendicitis versus perforated neoplasm in the ileocecal region. Given his findings of significant sepsis and peritonitis plan was made for emergent surgical intervention. Plan was for an attempt at diagnostic laparoscopy but likelihood the patient requires open procedure, most likely laparotomy with potentially colon resection and possible ileostomy is very high. Pending surgical findings and ultimate outcome the pancreatic mass will need further work-up. Given patient's chronic medical condition and degree of his current urgent clinical scenario he has an appreciable perioperative morbidity and mortality risk. Operative findings:: Patient had 2 moderate hernias at the umbilical area with an appreciable amount of chronically incarcerated omentum. He has significant inflammatory process at the ileocecal region with firm masslike findings with some exudate regionally around the viscera and peritoneum. This was ultimately shown to be contained perforated cecal carcinoma, nonobstructing, with adherent loop of distal ileum. There was a palpable nodule high on the dome of the right lobe of the liver of uncertain etiology which cannot be safely assessed surgically. Possible metastatic disease. There were rather prominent lymph nodes in the ileocolic mesentery. Operative note:: Consent was obtained and patient was taken to the operating room. He was positioned in supine position. General anesthesia was induced via endotracheal tube. Wu catheter was placed. Palpation of the abdomen and under general anesthesia revealed a firm mass in the right lower quadrant near McBurney's point. Abdomen was prepped and draped in the standard surgical fashion. Left subcostal 5 mm incision was made and a 5 mm optical trocar was inserted under laparoscopic visualization. CO2 pneumoperitoneum was achieved to 15 mmHg. Laparoscope was inserted and surveillance was carried out. There was noted to be hernia at the umbilicus, moderate-sized with incarcerated omentum. 5 mm trocar was inserted in the left lateral abdomen. Ultimately an additional 5 mm trocar was inserted in the left lower abdomen. Using retraction a very large amount of ome
--- NOTE | 2022-11-09 19:17 | P.PNANES_ITS ---
[facility] Anesthesia Record Part I Anesthesia Record I Intake, IV Amount: 1,910 Estimated blood loss (mL): 100 Urine output (mL): 600 Blood Products used (#): none Blood Pressure: 141/76 SaO2: 94 Pulse Rate: 66 Respiratory Rate: 16 Temperature: 97.9 F Patient is:: Drowsy, Mask O2 and Stable Stable to PACU at:: 19:10
--- NOTE | 2022-11-09 19:48 | PC.NURSE ---
pt arrived to floor from pacu at this time
--- NOTE | 2022-11-09 19:58 | SUR.PHASEI ---
1929- pt laying on left side. Resting comfortably w/no complaints. Warm blankets applied. Sedrick SAHA @ bs. Ok'd to transport on 4 lpm per n/c. 1939-Detailed report called to Faizan Alarcon RN. Pt transported via bed per Clifford MONTOYA & Kevin w/portable o2@ 4 lpm per n/c. Left in care of Son MONTOYA. Pt stable.
--- NOTE | 2022-11-09 19:59 | SUR.PHASEI ---
1939-f/c emptied 600 ml dark santi urine.
[2022-11-09 20:11] LABS: Microscopic,Cath URINE MICROSCOPIC (MICROSCOPIC)
[2022-11-09 20:16] LABS: Appearance,Urine/Cath CLEAR (Clear); Bilirubin,Cath Negative (Negative); Blood, Urine/Cath 2+ (Negative); Color,Urine/Cath YELLOW (Yellow); Glucose,Urine/Cath (UA) Negative (Negative); Ketones,Urine/Cath Negative (Negative); Leukocyte Esterase,Cath Negative (Negative); Nitrate,Cath Negative (Negative); PH,Urine/Cath 5.5 (5.0-8.5); Protein,Urine/Cath 1+ (Negative); Specific Gravity, Urine/Cath 1.025 (1.005-1.030); Urobilinogen,Cath 0.2 EU/dl (0.2)
[2022-11-09 20:30] LABS: Lactic Acid Follow Up (RFLX 1) 1.9 mmol/L (0.7-2.1)
[2022-11-09 20:31] LABS: Bacteria,Urine/Cath TRACE /lpf; WBC,Urine/Cath Occasional #/hpf (0-3)
[2022-11-10] VITALS (21 sets, daily range): BP systolic 104–151; BP diastolic 51–81; PULSE 61–88; RESP 12–19; TEMP 36.4–37.3; O2SAT 2–98; BMI 40.1
--- NOTE | 2022-11-10 00:11 | PC.NURSE ---
Addendum entered by Mery Terrell RN 11/10/22 00:27: HR 60s-70s. Addendum entered by Mery Terrell RN 11/10/22 00:24: 02 at 4LNC. 02 sats 97-98%. Original Note: 0196 received report from Yang Alarcon RN. patient awakens easily. a/o x 3. Speech clear. N/G to right nare to cont LWS, Dark yellow secretions, small amts. Telemetry sinus tach with inverted T-waves. Breath sounds coarse upper soto. encouraged to cough and deep breath. Abdomen distended. Unable to detect bowel sounds at this time. Mid line incision with bulky surgical drsg C/D/I. 1 plus pitting edema in bilat lower legs/feet. Has old hard calloused foot ulcer noted on lateral aspect of right foot, no drainage, WNI. F/C to BSD, urine dark clear yellow and adequate amts. IV site to RAC infiltrated and IV had been pulled out and lying across bed. LR switched to LAC and infusing at 150ml/hr/pump. New IV #20 placed in right hand and saline locked. Patient is NPO at this time. Needs an incentive spirometer. Turn q 2 hrs.
--- NOTE | 2022-11-10 01:38 | PC.NURSE ---
skin cool and clammy. FSBS 277. Vital signs stable. Temp 98.7 ax.
[2022-11-10 01:42] LABS: POC Glucose,Bedside 277 (70-110)
--- NOTE | 2022-11-10 02:01 | PC.NURSE ---
PATIENTS SATS DROP INTO THE 80S. TURNED TO THE LEFT SIDE. HOB UP 40 DEGREES. 02 AT 4LNC. KAYLEN Villaseñor NP NOTIFIED. PATIENT ENCOURAGED TO COUGH AND DEEP BREATH. WILL GET PATIENT TO USE I/S.
--- NOTE | 2022-11-10 02:39 | PC.NURSE ---
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 SATS DROP INTO THE 80s. BIPAP TO BE ORDERED.
--- NOTE | 2022-11-10 03:03 | PC.NURSE ---
R.TJovani HERE AND RECOMMENDED CPAP FOR THE PATIENT. KAYLEN VillaseñorTECHNICAL SUPPORT AGENT NOTIFIED.
[2022-11-10 03:40] LABS: POC Glucose,Bedside 309 (70-110)
--- NOTE | 2022-11-10 05:19 | PC.NURSE ---
CPAP IN USE. VITAL SIGNS STABLE. BOWEL SOUNDS EXTREMELY HYPOACTIVE. ABDOMEN DISTENDED. SURG DRSG C/D/I.
[2022-11-10 07:01] LABS: Eosinophils % 0.1 % (0.1-12.0); Lymphocytes # 1.2 K/mm3 (0.7-4.5); Mean Platelet Volume 7.8 fl (7.4-10.4)
[2022-11-10 07:08] LABS: Basophils % 0.1 % (0.1-2.0); Lymphocytes % 4.5 % (10-50); Mean Corpuscular HGB Conc 30.8 g/dL (31.8-35.4); Mean Corpuscular Hemoglobin 25.1 pg (27.0-31.2); Mean Corpuscular Volume 81.6 fl (80-94); Monocytes # 1.4 K/mm3 (0.1-1.0); Monocytes % 5.2 % (1.7-9.3); Neutrophils # 24.3 K/mm3 (1.8-7.8); Platelet Count 330 K/mm3 (142-424)
[2022-11-10 07:09] LABS: Alanine Aminotransferase 18 U/L (12-78); Albumin/Globulin Ratio 0.8 (1.1-1.8); Alkaline Phosphatase 62 U/L (38-126); Anion Gap 9.9 mEq/L (5-15); Aspartate Amino Transferase 29 U/L (17-59); Bilirubin,Total 0.5 mg/dl (0.2-1.3); Blood Urea Nitrogen 27 mg/dl (9-20); Calcium 7.9 mg/dl (8.4-10.2); Carbon Dioxide 27 mmol/L (22.0-30.0); Chloride 104 mmol/L (98-107); Creatinine Clearance Estimated 64 mL/min (50-200); Estimated Glomerular Filt Rate 57 ml/min (>60); GFR (African American) 69 ML/MIN (>60); Globulin 3.6 g/dL (1.3-3.2); Glucose 289 mg/dl (74-100); Hemoglobin 9.6 g/dL (14.1-18.0); Potassium 4.9 mmoL/L (3.5-5.1); Sodium 136 mmol/L (136-145); Total Protein,Serum 6.6 g/dl (6.3-8.2)
[2022-11-10 07:10] LABS: MANUAL DIFFERENTIAL MANUAL DIFFERENTIAL (MANUAL DIFF)
[2022-11-10 07:13] LABS: Lymphocytes % 5 % (10-50); Monocytes % 4 % (2-9); Neutrophils % 91 % (42-76); Total Cells Counted 100
[2022-11-10 07:14] LABS: Platelet Estimate Normal; RBC Morphology Normal
--- NOTE | 2022-11-10 07:51 | EXP.ACUTE.PN ---
Subjective *Date: 11/10/22 *Time: 10:06 Interval history: Patient denies any nausea, complaining of abdominal discomfort. No bowel movements or gas as of yet. NG in place. Afebrile and hemodynamically stable overnight. Weaning oxygen this morning, weaned to 1 L on rounds. Medical Exam Vital signs and Labs for Last 24 Hours: Vital Signs Temp Pulse Pulse Resp BP BP Pulse Ox 11/10/22 07:30 97.8 F 65 15 151/64 H 97 11/10/22 06:30 98 11/10/22 06:26 11/10/22 05:31 98.0 F 61 12 126/67 93 L 11/10/22 04:46 11/10/22 04:40 61 11/10/22 04:30 98.0 F 62 17 125/66 95 11/10/22 04:00 98.0 F 72 15 134/51 L 96 11/10/22 03:30 98.0 F 61 17 116/60 95 11/10/22 03:00 11/10/22 02:30 98.0 F 66 19 119/56 L 96 11/10/22 01:30 98.7 F 69 17 126/56 L 97 11/10/22 01:00 11/10/22 01:00 98.5 F 65 18 140/60 95 11/10/22 01:06 69 11/10/22 00:30 98.8 F 67 18 146/56 H 97 11/10/22 00:00 98.8 F 67 18 123/63 97 11/09/22 21:00 11/09/22 20:08 99.7 F H 11/09/22 19:40 97.9 F 64 20 121/67 96 11/09/22 19:30 72 20 123/65 95 11/09/22 19:20 66 20 152/74 H 98 11/09/22 19:10 97.9 F 66 20 144/70 H 98 11/09/22 14:14 99.0 F 69 18 115/59 L 11/09/22 12:31 73 20 122/62 94 L 11/09/22 11:30 78 18 126/62 93 L 11/09/22 11:00 80 18 122/63 95 11/09/22 10:41 100.5 F H 80 18 122/59 L 95 11/09/22 19:18 97.9 F 66 16 141/76 H O2 Del Method O2 Flow Rate FiO2 11/10/22 07:30 CPAP 11/10/22 06:30 CPAP 25 11/10/22 06:26 CPAP 11/10/22 05:31 CPAP 11/10/22 04:46 CPAP 11/10/22 04:40 11/10/22 04:30 CPAP 11/10/22 04:00 CPAP 11/10/22 03:30 CPAP 11/10/22 03:00 Nasal Cannula 4 11/10/22 02:30 Nasal Cannula 4 11/10/22 01:30 Nasal Cannula 4 11/10/22 01:00 Nasal Cannula 4 11/10/22 01:00 Nasal Cannula 4 11/10/22 01:06 11/10/22 00:30 Nasal Cannula 4 11/10/22 00:00 Nasal Cannula 2 11/09/22 21:00 Nasal Cannula 4 11/09/22 20:08 11/09/22 19:40 Nasal Cannula 4 11/09/22 19:30 Nasal Cannula 4 11/09/22 19:20 Simple Mask 10 11/09/22 19:10 Simple Mask 10 11/09/22 14:14 Room Air 11/09/22 12:31 11/09/22 11:30 11/09/22 11:00 11/09/22 10:41 Room Air 11/09/22 19:18 Intake and Output 11/09/22 11/09/22 11/10/22 15:59 23:59 07:59 Intake Total 1909 658 / 658 Output Total 2450 / 2450 Balance 1909 -1791 / -1791 Intake: Intake, Oral Amount 0 / 0 Intake, Total IV Amount 1909 658 / 658 Lactated Ringers 1000ML 1,000 558 / 558 ml @ 150 mls/hr IV .Q6H40M GIN Rx#:[id number] Piperacillin/Tazo 4.5 gm In 0.9 100 / 100 % Sodium Chloride 100 ml @ 200 mls/hr IV Q6H GIN Rx#: [id number] Output: Output, Urine Amount 950 / 950 Output, Urine Amount (Catheter) 1400 / 1400 Coude 1400 / 1400 Output, Gastric Drainage Amount 100 / 100 Right Nare 100 / 100 Other: Number of Unmeasured Voids 0 0 Weight 113.398 kg 129.869 kg 129.869 kg Patient Weight 11/10/22 23:59 Weight 129.869 kg Laboratory Results - last 24 hr 11/09/22 10:58: WBC 30.7 H*, RBC 4.33 L, Hgb 10.9 L, Hct 34.4 L, MCV 79.4 L, MCH 25.1 L, MCHC 31.6 L, RDW 16.0, Plt Count 390, MPV 7.6, Neut % (Auto) 89.0 H, Lymph % (Auto) 5.9 L, White % (Auto) 4.9, Eos % (Auto) 0.1, Baso % (Auto) 0.1, Neut # (Auto) 27.3 H, Lymph # (Auto) 1.8, White # (Auto) 1.5 H, Eos # (Auto) 0.0, Baso # (Auto) 0.0, Total Counted 100, Neutrophils % (Manual) 91 H, Lymphocytes % (Manual) 6 L, Monocytes % (Manual) 3, Platelet Estimate Normal, RBC Morphology Not Reportable, Hypochromasia 1+, Sodium 135 L, Potassium 4.0, Chloride 100, Carbon Dioxide 25, Anion Gap 14.0, BUN 30 H, Creatinine 1.40 H, Estimated Creat Clear 92, Estimated GFR 52 L, Est GFR ( Amer) 63, Glucose
--- NOTE | 2022-11-10 09:07 | P.CONPHA_ITS ---
Pharmacy Intervention Comments: MEDICATION RECONCILIATION COMPLETED ON PATIENT USING MAR FROM [facility]. -EMMETT REEVES, JUSTEND
--- NOTE | 2022-11-10 09:07 | HMH.PHAINT1 ---
Pharmacy Intervention Comments: MEDICATION RECONCILIATION COMPLETED ON PATIENT USING MAR FROM [facility]. -EMMETT REEVES, JUSTEND
--- NOTE | 2022-11-10 11:05 | P.PNANES_ITS ---
[facility] Anesthesia Record Part II Anesthesia Record Part II Discharge Time: 19:40 (11/09/22) Destination: Medical Surgical Department PACU nurse assessment reviewed?: Yes Patient Condition:: Good Anesthesia Complications:: None Swallowing reflex intact?: Yes Cyanosis?: No Blood Pressure: 121/67 Pulse Rate: 64 Temperature: 97.9 F Mental Status: Alert & Oriented Pain level:: 0 Nausea and/or vomitting:: None Intake, IV Amount: 0
--- NOTE | 2022-11-10 11:07 | EXP.SURG.PN ---
Subjective Narrative: Patient has some right-sided abdominal discomfort. No nausea. Not passing any flatus. Nasogastric tube in place and functioning. Decent urinary output. Exam Data for Last 24 hours Vital signs and Labs for Last 24 Hours: Temp Pulse Resp BP Pulse Ox O2 Del Method O2 Flow Rate 97.8 F 70 15 151/64 H 97 CPAP 4 11/10/22 07:30 11/10/22 08:00 11/10/22 07:30 11/10/22 07:30 11/10/22 07:30 11/10/22 07:30 11/10/22 03:00 FiO2 25 11/10/22 06:30 Laboratory Results - last 24 hr 11/09/22 10:58: WBC 30.7 H*, RBC 4.33 L, Hgb 10.9 L, Hct 34.4 L, MCV 79.4 L, MCH 25.1 L, MCHC 31.6 L, RDW 16.0, Plt Count 390, MPV 7.6, Neut % (Auto) 89.0 H, Lymph % (Auto) 5.9 L, [place] % (Auto) 4.9, Eos % (Auto) 0.1, Baso % (Auto) 0.1, Neut # (Auto) 27.3 H, Lymph # (Auto) 1.8, [place] # (Auto) 1.5 H, Eos # (Auto) 0.0, Baso # (Auto) 0.0, Total Counted 100, Neutrophils % (Manual) 91 H, Lymphocytes % (Manual) 6 L, Monocytes % (Manual) 3, Platelet Estimate Normal, RBC Morphology Not Reportable, Hypochromasia 1+, Sodium 135 L, Potassium 4.0, Chloride 100, Carbon Dioxide 25, Anion Gap 14.0, BUN 30 H, Creatinine 1.40 H, Estimated Creat Clear 92, Estimated GFR 52 L, Est GFR ( Amer) 63, Glucose 204 H, Hemoglobin A1c 8.3 H, Lactate 2.4 H, Calcium 9.2, Total Bilirubin 1.1, AST 26, ALT 21, Alkaline Phosphatase 80, Total Protein 7.9, Albumin 3.8, Globulin 4.1 H, Albumin/Globulin Ratio 0.9 L, Lipase 31 11/09/22 15:18: Urine Color Yellow, Urine Appearance Clear, Urine pH 5.5, Ur Specific [place] 1.025, Urine Protein 1+, Urine Glucose (UA) Negative, Urine Ketones Negative, Urine Blood 2+, Urine Nitrate Negative, Urine Bilirubin Negative, Urine Urobilinogen 0.2, Ur Leukocyte Esterase Negative, Urine RBC 5-10, Urine WBC Occasional, Ur Squamous Epith Cells 3-5, Urine Bacteria Trace 11/09/22 15:21: POC Glucose 232 H 11/09/22 20:20: Lactate 1.9 11/10/22 01:35: POC Glucose 277 H 11/10/22 03:33: POC Glucose 309 H* 11/10/22 06:37: WBC 27.0 H*, RBC 3.80 L, Hgb 9.6 L D, Hct 31.0 L, MCV 81.6, MCH 25.1 L, MCHC 30.8 L, RDW 16.0, Plt Count 330, MPV 7.8, Neut % (Auto) 90.0 H, Lymph % (Auto) 4.5 L, [place] % (Auto) 5.2, Eos % (Auto) 0.1, Baso % (Auto) 0.1, Neut # (Auto) 24.3 H, Lymph # (Auto) 1.2, [place] # (Auto) 1.4 H, Eos # (Auto) 0.0, Baso # (Auto) 0.0, Total Counted 100, Neutrophils % (Manual) 91 H, Lymphocytes % (Manual) 5 L, Monocytes % (Manual) 4, Platelet Estimate Normal, RBC Morphology Normal, Sodium 136, Potassium 4.9 D, Chloride 104, Carbon Dioxide 27, Anion Gap 9.9, BUN 27 H, Creatinine 1.30 H, Estimated Creat Clear 64, Estimated GFR 57 L, Est GFR ( Amer) 69, Glucose 289 H D, Calcium 7.9 L, Magnesium 2.0, Total Bilirubin 0.5, AST 29, ALT 18, Alkaline Phosphatase 62, Total Protein 6.6, Albumin 3.0 L D, Globulin 3.6 H, Albumin/Globulin Ratio 0.8 L I & O for Last 24 hours: Intake & Output 11/07/22 11/08/22 11/09/22 11/10/22 11:59 11:59 11:59 11:59 Intake Total 2568 / 2568 Output Total 2450 / 2450 Balance 118 / 118 Weight 250 lb 286 lb 5 oz *Routine Abdominal Exam Abdominal: Present distended Comments: Dressing dry Progress Note: A&P Assessment and plan (1) Carcinoma in situ of cecum: Status: Acute (2) Perforated bowel: Status: Acute (3) Severe sepsis: Status: Acute (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 with nasogastric suction at this time until bowel function recovering. May have ice chips. Persistent leukocytosis and established peritonitis warrants continuation of Zosyn
[2022-11-10 11:43] LABS: POC Glucose,Bedside 319 (70-110)
[2022-11-10 17:17] LABS: POC Glucose,Bedside 205 (70-110)
[2022-11-10 20:02] LABS: POC Glucose,Bedside 203 (70-110)
--- NOTE | 2022-11-10 20:02 | PC.NURSE ---
THIS PT D/C'D HIS NGT @ 1900 ON ACCIDENT; JACKY MONTOYA, KEITH ASTUDILLO MD; TELEPHONE ORDER TO REPLACE; @ 194 THIS RN REPLACED NGT TO R TIMOTEO, MARKED AT 75, AUSCULTATED PLACEMENT, SUCTION APPLIED AND GASTRIC CONTENTS REMOVED AND VERIFIED PLACEMENT WELL. PT TOLERATED WELL; NO ISSUES NOTED.
--- NOTE | 2022-11-10 20:07 | XR_ITS ---
PROCEDURE INFORMATION: Exam: XR Abdomen Exam date and time: 11/10/2022 8:19 PM Age: 57 years old Clinical indication: Device placement; Gi device; Nasogastric tube; Additional info: Ngt placement TECHNIQUE: Imaging protocol: Radiologic exam of the abdomen. Views: Frontal supine view of the abdomen. 1 View. COMPARISON: CT ABDOMEN PELVIS W CON 11/09/2022 11:57 AM FINDINGS: Tubes, catheters and devices: NG tube located in the distal stomach. Gastrointestinal tract: Air filled distended colon. Bones/joints: Unremarkable. Soft tissues: Abdominopelvic wall skin lenin. IMPRESSION: NG tube located in the distal stomach.
[2022-11-11] VITALS (8 sets, daily range): BP systolic 129–169; BP diastolic 65–87; PULSE 70–90; RESP 17–22; TEMP 36.4–37.2; O2SAT 92–96; BMI 39.6
[2022-11-11 06:08] LABS: POC Glucose,Bedside 177 (70-110)
[2022-11-11 06:54] LABS: Basophils % 0.1 % (0.1-2.0); Eosinophils # 0.1 K/mm3 (0.0-0.4); Eosinophils % 0.3 % (0.1-12.0); Hematocrit 28.5 % (42.0-52.0); Hemoglobin 9.1 g/dL (14.1-18.0); Lymphocytes # 1.2 K/mm3 (0.7-4.5); Lymphocytes % 6.1 % (10-50); Mean Corpuscular HGB Conc 31.9 g/dL (31.8-35.4); Mean Corpuscular Hemoglobin 25.5 pg (27.0-31.2); Mean Platelet Volume 7.6 fl (7.4-10.4); Monocytes # 0.9 K/mm3 (0.1-1.0); Monocytes % 4.8 % (1.7-9.3); Neutrophils # 17.2 K/mm3 (1.8-7.8); Neutrophils % 88.7 % (37.0-80.0); Platelet Count 347 K/mm3 (142-424); Red Blood Count 3.56 M/mm3 (4.60-6.20); Red Cell Distribution Width 15.8 % (11.5-17.5); White Blood Count 19.4 K/mm3 (4.8-10.8)
[2022-11-11 06:58] LABS: MANUAL DIFFERENTIAL MANUAL DIFFERENTIAL (MANUAL DIFF)
[2022-11-11 07:03] LABS: Alanine Aminotransferase 16 U/L (12-78); Albumin Level 2.9 g/dl (3.5-5.0); Albumin/Globulin Ratio 0.8 (1.1-1.8); Alkaline Phosphatase 69 U/L (38-126); Aspartate Amino Transferase 28 U/L (17-59); Bilirubin,Total 0.4 mg/dl (0.2-1.3); Blood Urea Nitrogen 23 mg/dl (9-20); Calcium 8.1 mg/dl (8.4-10.2); Carbon Dioxide 29 mmol/L (22.0-30.0); Chloride 104 mmol/L (98-107); Creatinine Clearance Estimated 133 mL/min (50-200); Estimated Glomerular Filt Rate 69 ml/min (>60); GFR (African American) 83 ML/MIN (>60); Globulin 3.5 g/dL (1.3-3.2); Glucose 171 mg/dl (74-100); Sodium 137 mmol/L (136-145); Total Protein,Serum 6.4 g/dl (6.3-8.2)
[2022-11-11 07:39] LABS: Lymphocytes % 8 % (10-50); Magnesium 2.1 mg/dl (1.6-2.3); Monocytes % 4 % (2-9); Neutrophils % 88 % (42-76); Total Cells Counted 100
[2022-11-11 07:40] LABS: Platelet Estimate Normal; RBC Morphology Normal
--- NOTE | 2022-11-11 09:42 | EXP.ACUTE.PN ---
Subjective *Date: 11/11/22 *Time: 09:42 Interval history: Patient stable this morning. Tolerating ice chips. Still no flatus or bowel movement. Hydromorphone helping with pain however not lasting long. Denies any nausea or vomiting. Stable on room air. Afebrile. Medical Exam Vital signs and Labs for Last 24 Hours: Vital Signs Temp Pulse Pulse Resp BP Pulse Ox O2 Del Method 11/11/22 08:00 Room Air 11/11/22 09:00 Room Air 11/11/22 07:00 Room Air 11/11/22 07:30 98.6 F 74 17 133/70 96 Room Air 11/10/22 20:26 70 11/11/22 00:00 80 11/11/22 05:24 70 11/11/22 05:00 Room Air 11/11/22 04:00 97.5 F L 71 20 154/78 H 95 Room Air 11/11/22 03:00 Room Air 11/11/22 01:00 Room Air 11/11/22 00:00 98.0 F 83 18 154/85 H 92 L Room Air 11/10/22 23:00 Nasal Cannula 11/10/22 21:00 Nasal Cannula 11/10/22 20:00 2 L Nasal Cannula 11/10/22 20:00 99.1 F 75 14 130/66 93 L Room Air 11/10/22 19:00 Nasal Cannula 11/10/22 17:00 Room Air 11/10/22 15:00 Room Air 11/10/22 16:00 80 11/10/22 15:57 97.5 F L 88 19 144/81 H 92 L Room Air 11/10/22 13:00 Room Air 11/10/22 11:00 Nasal Cannula 11/10/22 12:00 70 11/10/22 11:51 97.6 F 73 14 104/63 L 94 L Room Air O2 Flow Rate 11/11/22 08:00 11/11/22 09:00 11/11/22 07:00 11/11/22 07:30 11/10/22 20:26 11/11/22 00:00 11/11/22 05:24 11/11/22 05:00 11/11/22 04:00 11/11/22 03:00 11/11/22 01:00 11/11/22 00:00 11/10/22 23:00 4 11/10/22 21:00 4 11/10/22 20:00 11/10/22 20:00 11/10/22 19:00 2 11/10/22 17:00 11/10/22 15:00 11/10/22 16:00 11/10/22 15:57 11/10/22 13:00 11/10/22 11:00 1 11/10/22 12:00 11/10/22 11:51 Intake and Output 11/10/22 11/11/22 11/11/22 23:59 07:59 15:59 Intake Total 816 / 1474 0 / 0 Output Total 400 / 3200 750 / 750 0 / 750 Balance 416 / -1726 -750 / -750 0 / -750 Intake: Intake, Oral Amount 0 / 0 Infusion Intake 816 / 816 Lactated Ringers 1000ML 1,000 816 / 816 ml @ 150 mls/hr IV .Q6H40M [facility] Rx#:[id number] Output: Output, Urine Amount 0 / 1300 750 / 750 0 / 750 Output, Gastric Drainage Amount 400 / 500 Right Nare 400 / 500 Other: Number of Unmeasured Voids 0 1 1 Weight 128.622 kg Patient Weight 11/11/22 23:59 Weight 128.622 kg Laboratory Results - last 24 hr 11/10/22 11:32: POC Glucose 319 H* 11/10/22 17:08: POC Glucose 205 H 11/10/22 19:51: POC Glucose 203 H 11/11/22 05:55: POC Glucose 177 H 11/11/22 06:30: WBC 19.4 H D, RBC 3.56 L, Hgb 9.1 L, Hct 28.5 L, MCV 80.0, MCH 25.5 L, MCHC 31.9, RDW 15.8, Plt Count 347, MPV 7.6, Neut % (Auto) 88.7 H, Lymph % (Auto) 6.1 L, [place] % (Auto) 4.8, Eos % (Auto) 0.3, Baso % (Auto) 0.1, Neut # (Auto) 17.2 H, Lymph # (Auto) 1.2, [place] # (Auto) 0.9, Eos # (Auto) 0.1, Baso # (Auto) 0.0, Total Counted 100, Neutrophils % (Manual) 88 H, Lymphocytes % (Manual) 8 L, Monocytes % (Manual) 4, Platelet Estimate Normal, RBC Morphology Normal, Sodium 137, Potassium 4.0, Chloride 104, Carbon Dioxide 29, Anion Gap 8.0, BUN 23 H, Creatinine 1.10, Estimated Creat Clear 133, Estimated GFR 69, Est GFR ( Amer) 83 D, Glucose 171 H D, Calcium 8.1 L, Magnesium 2.1, Total Bilirubin 0.4, AST 28, ALT 16, Alkaline Phosphatase 69, Total Protein 6.4, Albumin 2.9 L, Globulin 3.5 H, Albumin/Globulin Ratio 0.8 L I & O for Labs for Last 24 Hours: Intake & Output 11/08/22 11/09/22 11/10/22 11/11/22 23:59 23:59 23:59 23:59 Intake Total 1910 / 2568 1474 / 1474 0 / 0 Output Total 3200 / 3200 750 / 750 Balance 1910 / 1868 -1726 / -1726 -750 / -750 Weight 129.869 kg 129.869 kg 128.622 kg Constitutional: Present no acute distress, morbidly obese and chronically ill appearing Head: Present atraumatic and normocephalic ENT: Present normal exam Comment:: NG in right nare Respirat
--- NOTE | 2022-11-11 11:07 | EXP.SURG.PN ---
Subjective Narrative: Patient with no new complaints. No nausea. He states that he may have passed some gas this morning. Nasogastric tube became dislodged and inadvertently pulled last night, replaced. Exam Data for Last 24 hours Vital signs and Labs for Last 24 Hours: Temp Pulse Resp BP Pulse Ox O2 Del Method O2 Flow Rate 98.6 F 70 17 133/70 96 Room Air 4 11/11/22 07:30 11/11/22 08:00 11/11/22 07:30 11/11/22 07:30 11/11/22 07:30 11/11/22 09:00 11/10/22 23:00 FiO2 25 11/10/22 06:30 Laboratory Results - last 24 hr 11/10/22 11:32: POC Glucose 319 H* 11/10/22 17:08: POC Glucose 205 H 11/10/22 19:51: POC Glucose 203 H 11/11/22 05:55: POC Glucose 177 H 11/11/22 06:30: WBC 19.4 H D, RBC 3.56 L, Hgb 9.1 L, Hct 28.5 L, MCV 80.0, MCH 25.5 L, MCHC 31.9, RDW 15.8, Plt Count 347, MPV 7.6, Neut % (Auto) 88.7 H, Lymph % (Auto) 6.1 L, [place] % (Auto) 4.8, Eos % (Auto) 0.3, Baso % (Auto) 0.1, Neut # (Auto) 17.2 H, Lymph # (Auto) 1.2, [place] # (Auto) 0.9, Eos # (Auto) 0.1, Baso # (Auto) 0.0, Total Counted 100, Neutrophils % (Manual) 88 H, Lymphocytes % (Manual) 8 L, Monocytes % (Manual) 4, Platelet Estimate Normal, RBC Morphology Normal, Sodium 137, Potassium 4.0, Chloride 104, Carbon Dioxide 29, Anion Gap 8.0, BUN 23 H, Creatinine 1.10, Estimated Creat Clear 133, Estimated GFR 69, Est GFR ( Amer) 83 D, Glucose 171 H D, Calcium 8.1 L, Magnesium 2.1, Total Bilirubin 0.4, AST 28, ALT 16, Alkaline Phosphatase 69, Total Protein 6.4, Albumin 2.9 L, Globulin 3.5 H, Albumin/Globulin Ratio 0.8 L I & O for Last 24 hours: Intake & Output 11/08/22 11/09/22 11/10/22 11/11/22 11:59 11:59 11:59 11:59 Intake Total 2568 / 2568 816 / 816 Output Total 2450 / 2450 1900 / 1900 Balance 118 / 118 -1084 / -1084 Weight 250 lb 286 lb 5 oz 283 lb 9 oz *Routine Abdominal Exam Comments: Abdomen somewhat distended. 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 Reviewed his x-ray after replacement last night. There is appreciable loop of distended bowel. For now continue with nasogastric decompression to continuous low wall suction. If patient continues to show passage of some flatus possible removal of NG tube tomorrow.
[2022-11-11 12:01] LABS: POC Glucose,Bedside 148 (70-110)
[2022-11-11 16:42] LABS: POC Glucose,Bedside 165 (70-110)
[2022-11-11 21:25] LABS: POC Glucose,Bedside 152 (70-110)
[2022-11-12] VITALS (9 sets, daily range): BP systolic 114–149; BP diastolic 57–69; PULSE 60–71; RESP 16–22; TEMP 36.3–37.9; O2SAT 92–95; BMI 40.6
[2022-11-12 05:41] LABS: POC Glucose,Bedside 171 (70-110)
--- NOTE | 2022-11-12 06:13 | EXP.SURG.PN ---
Subjective Patient reports: no new complaints and flatus Narrative: Patient denies nausea. Pain controlled. States he is passing flatus. Exam Data for Last 24 hours Vital signs and Labs for Last 24 Hours: Temp Pulse Resp BP Pulse Ox O2 Del Method O2 Flow Rate 97.5 F L 71 20 149/65 H 92 L Room Air 4 11/12/22 04:00 11/12/22 04:00 11/12/22 04:00 11/12/22 04:00 11/12/22 04:00 11/12/22 05:00 11/10/22 23:00 FiO2 25 11/10/22 06:30 Laboratory Results - last 24 hr 11/11/22 06:30: WBC 19.4 H D, RBC 3.56 L, Hgb 9.1 L, Hct 28.5 L, MCV 80.0, MCH 25.5 L, MCHC 31.9, RDW 15.8, Plt Count 347, MPV 7.6, Neut % (Auto) 88.7 H, Lymph % (Auto) 6.1 L, [place] % (Auto) 4.8, Eos % (Auto) 0.3, Baso % (Auto) 0.1, Neut # (Auto) 17.2 H, Lymph # (Auto) 1.2, [place] # (Auto) 0.9, Eos # (Auto) 0.1, Baso # (Auto) 0.0, Total Counted 100, Neutrophils % (Manual) 88 H, Lymphocytes % (Manual) 8 L, Monocytes % (Manual) 4, Platelet Estimate Normal, RBC Morphology Normal, Sodium 137, Potassium 4.0, Chloride 104, Carbon Dioxide 29, Anion Gap 8.0, BUN 23 H, Creatinine 1.10, Estimated Creat Clear 133, Estimated GFR 69, Est GFR ( Amer) 83 D, Glucose 171 H D, Calcium 8.1 L, Magnesium 2.1, Total Bilirubin 0.4, AST 28, ALT 16, Alkaline Phosphatase 69, Total Protein 6.4, Albumin 2.9 L, Globulin 3.5 H, Albumin/Globulin Ratio 0.8 L 11/11/22 11:45: POC Glucose 148 H 11/11/22 16:25: POC Glucose 165 H 11/11/22 20:13: POC Glucose 152 H 11/12/22 05:31: POC Glucose 171 H I & O for Last 24 hours: Intake & Output 11/09/22 11/10/22 11/11/22 11/12/22 11:59 11:59 11:59 11:59 Intake Total 2568 / 2568 816 / 816 5239 / 5239 Output Total 2450 / 2450 1900 / 1900 1250 / 1250 Balance 118 / 118 -1084 / -1084 3989 / 3989 Weight 250 lb 286 lb 5 oz 283 lb 9 oz 290 lb 9 oz Microbiology Reports for the Last 24 Hours: Microbiology 11/09/22 13:17 Blood Blood Culture - Preliminary NO GROWTH AFTER 48 HOURS 11/09/22 10:55 Blood Blood Culture - Preliminary NO GROWTH AFTER 48 HOURS *Routine Abdominal Exam Abdominal: Present distended; Absent tenderness Progress Note: A&P Assessment and plan (1) Perforated bowel: Status: Acute (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 Continue with just ice chips for now. Need to increase ambulation.
[2022-11-12 07:21] LABS: Basophils % 0.1 % (0.1-2.0); Eosinophils # 0.5 K/mm3 (0.0-0.4); Eosinophils % 2.6 % (0.1-12.0); Hematocrit 27.4 % (42.0-52.0); Hemoglobin 8.8 g/dL (14.1-18.0); Lymphocytes # 1.3 K/mm3 (0.7-4.5); Lymphocytes % 7.2 % (10-50); Mean Corpuscular HGB Conc 32.1 g/dL (31.8-35.4); Mean Corpuscular Hemoglobin 25.4 pg (27.0-31.2); Mean Platelet Volume 7.9 fl (7.4-10.4); Monocytes # 1.2 K/mm3 (0.1-1.0); Monocytes % 6.9 % (1.7-9.3); Neutrophils # 14.6 K/mm3 (1.8-7.8); Neutrophils % 83.2 % (37.0-80.0); Platelet Count 375 K/mm3 (142-424); Red Blood Count 3.47 M/mm3 (4.60-6.20); Red Cell Distribution Width 15.8 % (11.5-17.5); White Blood Count 17.6 K/mm3 (4.8-10.8)
[2022-11-12 07:28] LABS: Alanine Aminotransferase 15 U/L (12-78); Albumin Level 2.7 g/dl (3.5-5.0); Albumin/Globulin Ratio 0.8 (1.1-1.8); Alkaline Phosphatase 71 U/L (38-126); Anion Gap 8.8 mEq/L (5-15); Aspartate Amino Transferase 32 U/L (17-59); Bilirubin,Total 0.5 mg/dl (0.2-1.3); Blood Urea Nitrogen 17 mg/dl (9-20); Calcium 7.9 mg/dl (8.4-10.2); Carbon Dioxide 26 mmol/L (22.0-30.0); Chloride 105 mmol/L (98-107); Creatinine Clearance Estimated 76 mL/min (50-200); Estimated Glomerular Filt Rate 69 ml/min (>60); GFR (African American) 83 ML/MIN (>60); Globulin 3.5 g/dL (1.3-3.2); Glucose 143 mg/dl (74-100); Potassium 3.8 mmoL/L (3.5-5.1); Sodium 136 mmol/L (136-145); Total Protein,Serum 6.2 g/dl (6.3-8.2)
[2022-11-12 07:35] LABS: MANUAL DIFFERENTIAL MANUAL DIFFERENTIAL (MANUAL DIFF)
[2022-11-12 08:02] LABS: Eosinophils % 1 % (0-3); Hypochromasia 1+; Lymphocytes % 14 % (10-50); Monocytes % 7 % (2-9); Neutrophils % 78 % (42-76); Total Cells Counted 100
[2022-11-12 08:03] LABS: Platelet Estimate Normal
--- NOTE | 2022-11-12 10:22 | HMH.PTEV ---
Physical Therapy Evaluation Rehab PT IP Evaluation Start: 11/11/22 19:06 Freq: ONCE Status: Active Protocol: Document 11/12/22 10:19 KOTA (Rec: 11/12/22 10:22 KOTA [id number]) Subjective/History History History 57 yowm adm to [facility] with poss appendicitis, during OR found to have colon mass requiring partial colectomy. He has hx of DM, HTN. He was resident [place] [facility] [place] to adm, but was independent with all mobility using a straight cane per his report. Subjective Subjective Pt has no c/o this am, agrees to mobility assessment. Rehab PT IP Eval Objective Appearance Patient Behavior Appropriate Patient Orientation Person,Place,Time Difficulty following instructions none Speech Pattern Clear Ambulation Patient Able to Ambulate Yes Ambulation Observation IP General Gait Pattern Observation Wide Based Gait Ambulation Distance (feet) 30 Ambulation Assistive Device Rolling Walker Ambulation Ability Independent Balance Ability to Arise Able, uses arms to help Sitting Balance Steady, safe Standing Balance Steady, wide stance Dynamic Sitting Balance Ability Good Dynamic Standing Balance Ability Fair Transfers Bed Transfer Ability Independent Chair Transfer Ability Independent Sit to Stand Bed Transfer Ability Independent Sit to Stand Chair Transfer Ability Independent ROM All Extremities PT ROM Status WFL MMT All Extremities PT MMT WFL Rehab PT IP prob,goals,plan Problems Date of Evaluation: 11/12/22 Discharge Plan PT Discharge Plan Pt appears to be close to baseline for all mobility this am. He is appropriate to return to prior living situation at SNF once medically stable. G -code Required No Eval Complexity Eval Charge Codes 33952 - High Complexity PHYSICIAN CERTIFICATION: I certify the specified therapy services for Nayan Womack are required, authorized, and reviewed every 30 days.
--- NOTE | 2022-11-12 10:50 | HMH.OTEV ---
OT Inpatient Evaluation Rehab OT IP Evaluation Start: 11/11/22 19:06 Freq: ONCE Status: Active Protocol: Document 11[facility]12[facility]22 10[facility] (Rec: 11/12/22 10:50 [facility] [id number]) Rehab OT IP Assessment Subjective History Pt oriented x 3 on arrival. Pt agreeable to engage in therapy evaluation. Pt is a 57 yowm adm to [facility] with poss appendicitis, during OR found to have colon mass requiring partial colectomy. He has hx of DM, HTN. He was resident of [facility] prior to adm, but was independent with all mobility using a straight cane per his report. Pt also claims he was independent with all ADLs such as dressing, bathing, and feeding. He was dependent upon staff for completion of all IADLs such as cleaning, cooking, and laundry. Subjective My pain is okay this morning. Objective Patient Orientation Person,Place,Birthday Upper Extremity Gross ROM WFL Bed Mobility bed mobility-scooting,bed mobility - supine/sit,bed mobility - rolling Assist Level Supervision/Stand by Transfer Training Sit/Stand Transfer Assist Level Supervision/Stand by Chair Transfer Ability Supervision/Stand by Chair Transfer Technique Sit to/from Ambulatory Chair Transfer Assistive Devices Rolling Walker Feeding Ability Independent Lower Body Dressing Ability Standby Assistance Rehab OT IP prob,goals,plan Problems Date of Evaluation: 11/12/22 Rehab Potential Rehab Potential Innapropriate for Skilled Therapy Discharge Plan OT Discharge Plan At this time, pt appears to be at his baseline with functional transfers and ADL independence. Pt can return back to SNF once medically stable per physician. Eval Complexity Eval Charge Codes 12464 - Low Complexity G Codes G -code Required No PHYSICIAN CERTIFICATION: I certify the specified therapy services for Nayan Womack are required
[2022-11-12 11:40] LABS: POC Glucose,Bedside 145 (70-110)
--- NOTE | 2022-11-12 14:42 | EXP.ACUTE.PN ---
Subjective *Date: 11/12/22 *Time: 14:42 Interval history: Had a bowel movement this morning. Improved abdominal distention. No nausea or vomiting. Remains afebrile. Making adequate urine. No acute events overnight. Medical Exam Vital signs and Labs for Last 24 Hours: Vital Signs Temp Pulse Pulse Resp BP Pulse Ox O2 Del Method 11/12/22 13:00 Room Air 11/12/22 08:00 70 11/12/22 12:00 97.8 F 65 20 132/69 94 L Room Air 11/12/22 11:00 Room Air 11/12/22 09:00 Room Air 11/12/22 08:00 Room Air 11/12/22 07:41 97.9 F 66 20 144/63 H 92 L Room Air 11/12/22 06:43 Room Air 11/12/22 05:00 Room Air 11/12/22 04:00 97.5 F L 71 20 149/65 H 92 L Room Air 11/12/22 04:00 70 11/12/22 00:00 70 11/11/22 20:00 90 11/12/22 03:00 Room Air 11/12/22 01:00 Room Air 11/11/22 23:00 Room Air 11/11/22 21:00 Room Air 11/11/22 20:00 Room Air 11/12/22 00:00 100.2 F H 68 16 116/65 92 L Room Air 11/11/22 20:00 97.8 F 80 20 129/65 92 L Room Air 11/11/22 16:00 98.6 F 70 22 169/87 H 93 L Room Air 11/11/22 16:00 80 11/11/22 16:42 Room Air 11/11/22 15:00 Room Air Intake and Output 11/11/22 11/12/22 11/12/22 23:59 07:59 15:59 Intake Total 3359 / 3599 1640 / 1640 Output Total 500 / 1900 900 / 900 0 / 900 Balance 2859 / 1699 740 / 740 0 / 740 Intake: Intake, Total IV Amount 1640 / 1640 Lactated Ringers 1000ML 1,000 1450 / 1450 ml @ 150 mls/hr IV .Q6H40M [facility] Rx#:[id number] Piperacillin/Tazo 4.5 gm In 0.9 190 / 190 % Sodium Chloride 100 ml @ 200 mls/hr IV Q6H [facility] Rx#:[id number] Infusion Intake 3359 / 3359 Lactated Ringers 1000ML 1,000 3359 / 3359 ml @ 150 mls/hr IV .Q6H40M [facility] Rx#:[id number] Output: Output, Urine Amount 350 / 1750 750 / 750 0 / 750 Output, Gastric Drainage Amount 150 / 150 150 / 150 Right Nare 150 / 150 150 / 150 Other: Number of Voids 1 Number of Unmeasured Voids 1 1 1 Number of Bowel Movements 1 2 Weight 128.622 kg 131.797 kg Patient Weight 11/12/22 23:59 Weight 131.797 kg Laboratory Results - last 24 hr 11/11/22 16:25: POC Glucose 165 H 11/11/22 20:13: POC Glucose 152 H 11/12/22 05:31: POC Glucose 171 H 11/12/22 06:55: WBC 17.6 H, RBC 3.47 L, Hgb 8.8 L, Hct 27.4 L, MCV 79.0 L, MCH 25.4 L, MCHC 32.1, RDW 15.8, Plt Count 375, MPV 7.9, Neut % (Auto) 83.2 H, Lymph % (Auto) 7.2 L, [place] % (Auto) 6.9, Eos % (Auto) 2.6, Baso % (Auto) 0.1, Neut # (Auto) 14.6 H, Lymph # (Auto) 1.3, [place] # (Auto) 1.2 H, Eos # (Auto) 0.5 H, Baso # (Auto) 0.0, Total Counted 100, Neutrophils % (Manual) 78 H, Lymphocytes % (Manual) 14, Monocytes % (Manual) 7, Eosinophils % (Manual) 1, Platelet Estimate Normal, Hypochromasia 1+, Sodium 136, Potassium 3.8, Chloride 105, Carbon Dioxide 26, Anion Gap 8.8, BUN 17 D, Creatinine 1.10, Estimated Creat Clear 76, Estimated GFR 69, Est GFR ( Amer) 83, Glucose 143 H, Calcium 7.9 L, Magnesium 2.0, Total Bilirubin 0.5, AST 32, ALT 15, Alkaline Phosphatase 71, Total Protein 6.2 L, Albumin 2.7 L, Globulin 3.5 H, Albumin/Globulin Ratio 0.8 L 11/12/22 11:33: POC Glucose 145 H I & O for Labs for Last 24 Hours: Intake & Output 11/09/22 11/10/22 11/11/22 11/12/22 23:59 23:59 23:59 23:59 Intake Total 1910 / 2568 1474 / 1474 3599 / 3599 1640 / 1640 Output Total 3200 / 3200 1650 / 1900 900 / 900 Balance 1910 / 1868 -1726 / -1726 1949 / 1699 740 / 740 Weight 129.869 kg 129.869 kg 128.622 kg 131.797 kg Microbiology Reports for the Last 24 Hours: Microbiology 11/09/22 13:17 Blood Blood Culture - Preliminary NO GROWTH AFTER 48 HOURS 11/09/22 10:55 Blood Blood Culture - Preliminary NO GROWTH AFTER 48 HOURS Constitutional: Present no acute distress, morbidly obese and chronically ill appearing H
--- NOTE | 2022-11-12 16:11 | PC.NURSE ---
courtesy tech note: pt assisted to the bathroom and back to bed x2. call light within reach, pt states he is comfortable in bed. No further requests voiced at this time
[2022-11-12 16:41] LABS: POC Glucose,Bedside 161 (70-110)
[2022-11-12 21:03] LABS: POC Glucose,Bedside 126 (70-110)
[2022-11-13] VITALS (7 sets, daily range): BP systolic 121–144; BP diastolic 56–68; PULSE 50–70; RESP 18–22; TEMP 36.5–37.1; O2SAT 93–97; BMI 40.1
--- NOTE | 2022-11-13 04:39 | PC.NURSE ---
Patient has had a good night. No issues were stated by patient. Iv did have to be changed. IV is now located in the R forearm. LR still at 150ml/hr. Patient did have another BM last night. Voiding per urinal. Midline incision is stapled and open to air
[2022-11-13 05:48] LABS: POC Glucose,Bedside 123 (70-110)
--- NOTE | 2022-11-13 06:24 | EXP.SURG.PN ---
Subjective Narrative: Patient is without any new complaints. He does still describe some soreness in the right abdomen. He has tolerated nasogastric tube out. He states that he is passing gas and has actually had some bowel movement. Taking minimal sips at this time. Exam Data for Last 24 hours Vital signs and Labs for Last 24 Hours: Temp Pulse Resp BP Pulse Ox O2 Del Method O2 Flow Rate 97.7 F 58 L 20 136/56 L 94 L Room Air 4 11/13/22 04:00 11/13/22 04:00 11/13/22 04:00 11/13/22 04:00 11/13/22 04:00 11/13/22 05:00 11/10/22 23:00 FiO2 25 11/10/22 06:30 Laboratory Results - last 24 hr 11/12/22 06:55: WBC 17.6 H, RBC 3.47 L, Hgb 8.8 L, Hct 27.4 L, MCV 79.0 L, MCH 25.4 L, MCHC 32.1, RDW 15.8, Plt Count 375, MPV 7.9, Neut % (Auto) 83.2 H, Lymph % (Auto) 7.2 L, [place] % (Auto) 6.9, Eos % (Auto) 2.6, Baso % (Auto) 0.1, Neut # (Auto) 14.6 H, Lymph # (Auto) 1.3, [place] # (Auto) 1.2 H, Eos # (Auto) 0.5 H, Baso # (Auto) 0.0, Total Counted 100, Neutrophils % (Manual) 78 H, Lymphocytes % (Manual) 14, Monocytes % (Manual) 7, Eosinophils % (Manual) 1, Platelet Estimate Normal, Hypochromasia 1+, Sodium 136, Potassium 3.8, Chloride 105, Carbon Dioxide 26, Anion Gap 8.8, BUN 17 D, Creatinine 1.10, Estimated Creat Clear 76, Estimated GFR 69, Est GFR ( Amer) 83, Glucose 143 H, Calcium 7.9 L, Magnesium 2.0, Total Bilirubin 0.5, AST 32, ALT 15, Alkaline Phosphatase 71, Total Protein 6.2 L, Albumin 2.7 L, Globulin 3.5 H, Albumin/Globulin Ratio 0.8 L 11/12/22 11:33: POC Glucose 145 H 11/12/22 16:33: POC Glucose 161 H 11/12/22 20:56: POC Glucose 126 H 11/13/22 05:40: POC Glucose 123 H I & O for Last 24 hours: Intake & Output 11/10/22 11/11/22 11/12/22 11/13/22 11:59 11:59 11:59 11:59 Intake Total 2568 / 2568 816 / 816 5239 / 5239 150 / 150 Output Total 2450 / 2450 1900 / 1900 1400 / 1400 0 / 0 Balance 118 / 118 -1084 / -1084 3839 / 3839 150 / 150 Weight 286 lb 5 oz 283 lb 9 oz 290 lb 9 oz 286 lb 11.2 oz *Routine Abdominal Exam Abdominal: Present soft Comments: Incision clean dry and intact. 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 Continue antibiotics for established peritonitis.
[2022-11-13 06:36] LABS: Basophils % 0.2 % (0.1-2.0); Eosinophils # 0.8 K/mm3 (0.0-0.4); Eosinophils % 5.2 % (0.1-12.0); Hematocrit 27.4 % (42.0-52.0); Hemoglobin 8.4 g/dL (14.1-18.0); Lymphocytes # 1.5 K/mm3 (0.7-4.5); Lymphocytes % 9.3 % (10-50); Mean Corpuscular HGB Conc 30.8 g/dL (31.8-35.4); Mean Corpuscular Hemoglobin 24.9 pg (27.0-31.2); Mean Corpuscular Volume 80.7 fl (80-94); Mean Platelet Volume 7.6 fl (7.4-10.4); Monocytes # 1.2 K/mm3 (0.1-1.0); Monocytes % 7.3 % (1.7-9.3); Neutrophils # 12.4 K/mm3 (1.8-7.8); Platelet Count 383 K/mm3 (142-424); White Blood Count 15.9 K/mm3 (4.8-10.8)
[2022-11-13 06:40] LABS: MANUAL DIFFERENTIAL MANUAL DIFFERENTIAL (MANUAL DIFF)
[2022-11-13 06:43] LABS: Chloride 104 mmol/L (98-107); Potassium 3.6 mmoL/L (3.5-5.1); Sodium 136 mmol/L (136-145)
[2022-11-13 06:45] LABS: Alanine Aminotransferase 15 U/L (12-78); Aspartate Amino Transferase 28 U/L (17-59); Blood Urea Nitrogen 15 mg/dl (9-20); Creatinine Clearance Estimated 83 mL/min (50-200); Estimated Glomerular Filt Rate 77 ml/min (>60); GFR (African American) 93 ML/MIN (>60)
[2022-11-13 06:46] LABS: Albumin Level 2.6 g/dl (3.5-5.0); Albumin/Globulin Ratio 0.7 (1.1-1.8); Alkaline Phosphatase 74 U/L (38-126); Anion Gap 8.6 mEq/L (5-15); Bilirubin,Total 0.8 mg/dl (0.2-1.3); Calcium 8.1 mg/dl (8.4-10.2); Carbon Dioxide 27 mmol/L (22.0-30.0); Globulin 3.5 g/dL (1.3-3.2); Glucose 127 mg/dl (74-100); Total Protein,Serum 6.1 g/dl (6.3-8.2)
[2022-11-13 07:17] LABS: Eosinophils % 3 % (0-3); Hypochromasia 2+; Lymphocytes % 10 % (10-50); Monocytes % 8 % (2-9); Neutrophils % 79 % (42-76); Platelet Estimate Normal; Total Cells Counted 100
--- NOTE | 2022-11-13 08:14 | EXP.PN ---
Subjective *Date: 11/13/22 *Time: 18:41 Interval history: No acute events overnight. Exam Data for Last 24 hours Vital signs and Labs for Last 24 Hours: Temp Pulse Resp BP Pulse Ox O2 Del Method O2 Flow Rate 97.7 F 58 L 20 136/56 L 94 L Room Air 4 11/13/22 04:00 11/13/22 04:00 11/13/22 04:00 11/13/22 04:00 11/13/22 04:00 11/13/22 06:54 11/10/22 23:00 FiO2 25 11/10/22 06:30 Laboratory Results - last 24 hr 11/12/22 11:33: POC Glucose 145 H 11/12/22 16:33: POC Glucose 161 H 11/12/22 20:56: POC Glucose 126 H 11/13/22 05:40: POC Glucose 123 H 11/13/22 06:12: WBC 15.9 H, RBC 3.40 L, Hgb 8.4 L, Hct 27.4 L, MCV 80.7, MCH 24.9 L, MCHC 30.8 L, RDW 16.0, Plt Count 383, MPV 7.6, Neut % (Auto) 78.0, Lymph % (Auto) 9.3 L, [place] % (Auto) 7.3, Eos % (Auto) 5.2, Baso % (Auto) 0.2, Neut # (Auto) 12.4 H, Lymph # (Auto) 1.5, [place] # (Auto) 1.2 H, Eos # (Auto) 0.8 H, Baso # (Auto) 0.0, Total Counted 100, Neutrophils % (Manual) 79 H, Lymphocytes % (Manual) 10, Monocytes % (Manual) 8, Eosinophils % (Manual) 3, Platelet Estimate Normal, Hypochromasia 2+, Sodium 136, Potassium 3.6, Chloride 104, Carbon Dioxide 27, Anion Gap 8.6, BUN 15, Creatinine 1.00, Estimated Creat Clear 83, Estimated GFR 77, Est GFR ( Amer) 93, Glucose 127 H, Calcium 8.1 L, Magnesium 2.0, Total Bilirubin 0.8, AST 28, ALT 15, Alkaline Phosphatase 74, Total Protein 6.1 L, Albumin 2.6 L, Globulin 3.5 H, Albumin/Globulin Ratio 0.7 L I & O for Last 24 hours: Intake & Output 11/10/22 11/11/22 11/12/22 11/13/22 23:59 23:59 23:59 23:59 Intake Total 1474 / 1474 3599 / 3599 1790 / 1790 Output Total 3200 / 3200 1650 / 1900 900 / 900 Balance -1726 / -1726 1949 / 1699 890 / 890 Weight 129.869 kg 128.622 kg 131.797 kg 130.045 kg Constitutional Constitutional: no acute distress *Routine HEENT Exam Head: Present normocephalic Eye: Present EOMI and PERRL ENT: Present mucous membranes moist *Routine Neck Exam Neck: Present supple; Absent lymphadenopathy *Routine Respiratory Exam Respiratory: Present CTA bilaterally *Routine Cardiovascular Exam Cardiovascular: Present RRR *Routine Abdominal Exam Abdominal: Present soft Comments: no rebound tenderness dressing c/d/i *Routine Extremities Exam Extremities: Absent cyanosis, clubbing or edema *Routine Skin Exam Skin: Present warm; Absent rash *Routine Neurological Exam Neurological: Present alert and oriented X3 Assessment and Plan *Assessment and plan (1) Perforated bowel: Status: Acute Category: Medical Code(s): K63.1 - Perforation of intestine (nontraumatic) (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 Category: Medical Code(s): D01.0 - Carcinoma in situ of colon (3) 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: Status: Acute Category: Medical Code(s): C77.2 - Secondary and unspecified malignant neoplasm of intra-abdominal lymph nodes (4) Mass of pancreas: Status: Acute Category: Medical Code(s): K86.89 - Other specified diseases of pancreas (5) Hypertension: Status: Acute Qualifiers: Hypertension type: unspecified Qualified Code(s): I10 - Essential (primary) hypertension Category: Medical Code(s): I10 - Essential (primary) hypertension (6) Type 2 diabetes mellitus: Status: Acute Qualifiers: Diabetes mellitus group home insulin use: with technician terminal and repeater use Diabetes mellitus complication status: with neurologic complications Diabetes mellitus complication detail: with polyneuropathy Qualified Code(s): E11.42 - Type 2 diabetes mellitus with diabetic polyneuropathy; Z79.4 - FPC (current) use of insulin Category: Medical Code(s): E11.9 - Type 2 diabetes mellitus without complications (7) Obesity, Class II, BMI 35-39.9: Status: Acute Category: Medical Code(s): E66.9 - Obesity, unspecified Plan Mr. Womack is a 57 year
--- NOTE | 2022-11-13 09:38 | P.PN_ITS ---
Subjective *Date: 11/13/22 *Time: 09:38 Medical Exam Vital signs and Labs for Last 24 Hours: Vital Signs Temp Pulse Pulse Resp BP Pulse Ox O2 Del Method 11/13/22 08:00 98.8 F 60 18 139/68 96 Room Air 11/13/22 04:00 58 L 11/13/22 04:00 97.7 F 58 L 20 136/56 L 94 L Room Air 11/13/22 00:00 60 11/13/22 06:54 Room Air 11/13/22 05:00 Room Air 11/13/22 03:00 Room Air 11/13/22 01:00 Room Air 11/12/22 23:43 97.7 F 65 22 134/68 94 L Room Air 11/12/22 23:00 Room Air 11/12/22 21:00 Room Air 11/12/22 20:00 Room Air 11/12/22 20:00 60 11/12/22 20:00 99 F 63 22 124/57 L 94 L Room Air 11/12/22 18:55 Room Air 11/12/22 16:00 70 11/12/22 16:59 Room Air 11/12/22 15:42 97.4 F L 65 22 114/66 95 Room Air 11/12/22 15:00 Room Air 11/12/22 12:00 70 11/12/22 13:00 Room Air 11/12/22 12:00 97.8 F 65 20 132/69 94 L Room Air 11/12/22 11:00 Room Air Intake and Output 11/12/22 11/13/22 11/13/22 23:59 07:59 15:59 Intake Total 360 / 360 Output Total 0 / 900 0 / 0 Balance 0 / 890 360 / 360 Intake: Intake, Oral Amount 360 / 360 Output: Output, Urine Amount 0 / 750 0 / 0 Other: Number of Unmeasured Voids 1 1 Number of Bowel Movements 1 1 1 Weight 130.045 kg Patient Weight 11/13/22 23:59 Weight 130.045 kg Laboratory Results - last 24 hr 11/12/22 11:33: POC Glucose 145 H 11/12/22 16:33: POC Glucose 161 H 11/12/22 20:56: POC Glucose 126 H 11/13/22 05:40: POC Glucose 123 H 11/13/22 06:12: WBC 15.9 H, RBC 3.40 L, Hgb 8.4 L, Hct 27.4 L, MCV 80.7, MCH 24.9 L, MCHC 30.8 L, RDW 16.0, Plt Count 383, MPV 7.6, Neut % (Auto) 78.0, Lymph % (Auto) 9.3 L, [place] % (Auto) 7.3, Eos % (Auto) 5.2, Baso % (Auto) 0.2, Neut # (Auto) 12.4 H, Lymph # (Auto) 1.5, [place] # (Auto) 1.2 H, Eos # (Auto) 0.8 H, Baso # (Auto) 0.0, Total Counted 100, Neutrophils % (Manual) 79 H, Lymphocytes % (Manual) 10, Monocytes % (Manual) 8, Eosinophils % (Manual) 3, Platelet Estimate Normal, Hypochromasia 2+, Sodium 136, Potassium 3.6, Chloride 104, Carbon Dioxide 27, Anion Gap 8.6, BUN 15, Creatinine 1.00, Estimated Creat Clear 83, Estimated GFR 77, Est GFR ( Amer) 93, Glucose 127 H, Calcium 8.1 L, Magnesium 2.0, Total Bilirubin 0.8, AST 28, ALT 15, Alkaline Phosphatase 74, Total Protein 6.1 L, Albumin 2.6 L, Globulin 3.5 H, Albumin/Globulin Ratio 0.7 L I & O for Labs for Last 24 Hours: Intake & Output 11/10/22 11/11/22 11/12/22 11/13/22 23:59 23:59 23:59 23:59 Intake Total 1474 / 1474 3599 / 3599 1790 / 1790 360 / 360 Output Total 3200 / 3200 1650 / 1900 900 / 900 0 / 0 Balance -1726 / -1726 1949 / 1699 890 / 890 360 / 360 Weight 129.869 kg 128.622 kg 131.797 kg 130.045 kg The patient's infection will respond to the chosen ABx?: Yes Is the patient receiving the right drug, dose, and route?: Yes Could a more targeted ABx be ordered?: No (WBC WNL, AFEBRILE, BLD CX (-)X2)
[2022-11-13 12:31] LABS: POC Glucose,Bedside 135 (70-110)
[2022-11-13 16:43] LABS: POC Glucose,Bedside 137 (70-110)
--- NOTE | 2022-11-13 19:14 | INFXCTL.NOTE ---
Patient had 1 time complaint of pain. PO pain medication helped pain.
[2022-11-13 21:11] LABS: POC Glucose,Bedside 136 (70-110)
[2022-11-14] VITALS (9 sets, daily range): BP systolic 129–149; BP diastolic 62–76; PULSE 50–65; RESP 18–24; TEMP 36.4–36.7; O2SAT 94–99; BMI 41.0
--- NOTE | 2022-11-14 05:03 | PC.NURSE ---
Pt had no complaints this shift. 2100 dose of Coreg 12.5 mg held per Hospitalist for HR 50. Pt had brief bradycardic episode while sleeping, with HR in 30's. Pt ambulates to BR with 1 assist and tolerates well. Pt tolerates clear liquid diet. Denies abd pain, nausea.
[2022-11-14 06:42] LABS: Basophils # 0.1 K/mm3 (0-0.2); Basophils % 0.3 % (0.1-2.0); Eosinophils # 1.1 K/mm3 (0.0-0.4); Eosinophils % 7.2 % (0.1-12.0); Hematocrit 28.2 % (42.0-52.0); Hemoglobin 8.8 g/dL (14.1-18.0); Lymphocytes # 1.7 K/mm3 (0.7-4.5); Lymphocytes % 11.5 % (10-50); Mean Corpuscular HGB Conc 31.3 g/dL (31.8-35.4); Mean Corpuscular Hemoglobin 24.9 pg (27.0-31.2); Mean Corpuscular Volume 79.4 fl (80-94); Mean Platelet Volume 7.5 fl (7.4-10.4); Monocytes # 1.1 K/mm3 (0.1-1.0); Monocytes % 7.6 % (1.7-9.3); Neutrophils # 10.9 K/mm3 (1.8-7.8); Neutrophils % 73.4 % (37.0-80.0); Platelet Count 424 K/mm3 (142-424); Red Blood Count 3.55 M/mm3 (4.60-6.20); White Blood Count 14.9 K/mm3 (4.8-10.8)
[2022-11-14 06:43] LABS: Chloride 105 mmol/L (98-107); Potassium 3.4 mmoL/L (3.5-5.1); Sodium 137 mmol/L (136-145)
[2022-11-14 06:45] LABS: Alanine Aminotransferase 16 U/L (12-78); Aspartate Amino Transferase 27 U/L (17-59); Blood Urea Nitrogen 9 mg/dl (9-20); Creatinine Clearance Estimated 83 mL/min (50-200); Estimated Glomerular Filt Rate 77 ml/min (>60); GFR (African American) 93 ML/MIN (>60)
[2022-11-14 06:46] LABS: Albumin Level 2.7 g/dl (3.5-5.0); Albumin/Globulin Ratio 0.7 (1.1-1.8); Alkaline Phosphatase 75 U/L (38-126); Anion Gap 9.4 mEq/L (5-15); Bilirubin,Total 0.6 mg/dl (0.2-1.3); Calcium 8.2 mg/dl (8.4-10.2); Carbon Dioxide 26 mmol/L (22.0-30.0); Globulin 3.7 g/dL (1.3-3.2); Glucose 108 mg/dl (74-100); Total Protein,Serum 6.4 g/dl (6.3-8.2)
[2022-11-14 06:48] LABS: POC Glucose,Bedside 114 (70-110)
--- NOTE | 2022-11-14 07:19 | EXP.SURG.PN ---
Subjective Patient reports: no new complaints and feels better Exam Data for Last 24 hours Vital signs and Labs for Last 24 Hours: Temp Pulse Resp BP Pulse Ox O2 Del Method O2 Flow Rate 98.1 F 55 L 24 144/62 H 94 L Room Air 4 11/14/22 04:00 11/14/22 04:00 11/14/22 04:00 11/14/22 04:00 11/14/22 04:00 11/14/22 06:45 11/10/22 23:00 FiO2 25 11/10/22 06:30 Laboratory Results - last 24 hr 11/13/22 12:14: POC Glucose 135 H 11/13/22 16:36: POC Glucose 137 H 11/13/22 20:51: POC Glucose 136 H 11/14/22 06:08: WBC 14.9 H, RBC 3.55 L, Hgb 8.8 L, Hct 28.2 L, MCV 79.4 L, MCH 24.9 L, MCHC 31.3 L, RDW 16.0, Plt Count 424, MPV 7.5, Neut % (Auto) 73.4, Lymph % (Auto) 11.5, [place] % (Auto) 7.6, Eos % (Auto) 7.2, Baso % (Auto) 0.3, Neut # (Auto) 10.9 H, Lymph # (Auto) 1.7, [place] # (Auto) 1.1 H, Eos # (Auto) 1.1 H, Baso # (Auto) 0.1, Sodium 137, Potassium 3.4 L, Chloride 105, Carbon Dioxide 26, Anion Gap 9.4, BUN 9 D, Creatinine 1.00, Estimated Creat Clear 83, Estimated GFR 77, Est GFR ( Amer) 93, Glucose 108 H, Calcium 8.2 L, Total Bilirubin 0.6, AST 27, ALT 16, Alkaline Phosphatase 75, Total Protein 6.4, Albumin 2.7 L, Globulin 3.7 H, Albumin/Globulin Ratio 0.7 L 11/14/22 06:38: POC Glucose 114 H I & O for Last 24 hours: Intake & Output 11/11/22 11/12/22 11/13/22 11/14/22 11:59 11:59 11:59 11:59 Intake Total 816 / 816 5239 / 5239 510 / 510 2501 / 2501 Output Total 1900 / 1900 1400 / 1400 0 / 0 150 / 150 Balance -1084 / -1084 3839 / 3839 510 / 510 2351 / 2351 Weight 283 lb 9 oz 290 lb 9 oz 286 lb 11.2 oz 293 lb 1.6 oz Constitutional Constitutional: no acute distress *Routine Respiratory Exam Respiratory: Absent respiratory distress *Routine Cardiovascular Exam Cardiovascular: Absent tachycardia *Routine Abdominal Exam Abdominal: Present soft Comments: Incisions healing without sign of infection Progress Note: A&P Assessment and plan (1) Perforated bowel: Status: Acute Assessment and plan: Overall, continuing to improve status post right colectomy. 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
--- NOTE | 2022-11-14 09:01 | SW/DCPLANNER ---
Addendum entered by Tahmina Herrera 11/15/22 11:41: I have updated Mae w/ [facility] that patient will return today w/ midline and will need additional three days of IV Zosyn. Original Note: Patient currently resides at [facility] level of care. Updated patient information has been faxed to [facility]. Discharge date is unknown at this time.
--- NOTE | 2022-11-14 09:12 | EXP.PN ---
Subjective *Date: 11/14/22 *Time: 14:00 Interval history: No acute events overnight. no abdominal pain good appetite. Exam Data for Last 24 hours Vital signs and Labs for Last 24 Hours: Temp Pulse Resp BP Pulse Ox O2 Del Method O2 Flow Rate 97.9 F 65 18 129/74 99 Room Air 4 11/14/22 07:23 11/14/22 08:00 11/14/22 07:23 11/14/22 07:23 11/14/22 07:23 11/14/22 06:45 11/10/22 23:00 FiO2 25 11/10/22 06:30 Laboratory Results - last 24 hr 11/13/22 12:14: POC Glucose 135 H 11/13/22 16:36: POC Glucose 137 H 11/13/22 20:51: POC Glucose 136 H 11/14/22 06:08: WBC 14.9 H, RBC 3.55 L, Hgb 8.8 L, Hct 28.2 L, MCV 79.4 L, MCH 24.9 L, MCHC 31.3 L, RDW 16.0, Plt Count 424, MPV 7.5, Neut % (Auto) 73.4, Lymph % (Auto) 11.5, [place] % (Auto) 7.6, Eos % (Auto) 7.2, Baso % (Auto) 0.3, Neut # (Auto) 10.9 H, Lymph # (Auto) 1.7, [place] # (Auto) 1.1 H, Eos # (Auto) 1.1 H, Baso # (Auto) 0.1, Sodium 137, Potassium 3.4 L, Chloride 105, Carbon Dioxide 26, Anion Gap 9.4, BUN 9 D, Creatinine 1.00, Estimated Creat Clear 83, Estimated GFR 77, Est GFR ( Amer) 93, Glucose 108 H, Calcium 8.2 L, Total Bilirubin 0.6, AST 27, ALT 16, Alkaline Phosphatase 75, Total Protein 6.4, Albumin 2.7 L, Globulin 3.7 H, Albumin/Globulin Ratio 0.7 L 11/14/22 06:38: POC Glucose 114 H I & O for Last 24 hours: Intake & Output 11/11/22 11/12/22 11/13/22 11/14/22 23:59 23:59 23:59 23:59 Intake Total 3599 / 3599 1790 / 1790 1440 / 1440 2521 / 2521 Output Total 1650 / 1900 900 / 900 150 / 150 200 / 200 Balance 1949 / 1699 890 / 890 1290 / 1290 2321 / 2321 Weight 128.622 kg 131.797 kg 130.045 kg 132.948 kg Constitutional Constitutional: no acute distress *Routine HEENT Exam Head: Present normocephalic Eye: Present EOMI and PERRL ENT: Present mucous membranes moist *Routine Neck Exam Neck: Present supple; Absent lymphadenopathy *Routine Respiratory Exam Respiratory: Present CTA bilaterally *Routine Cardiovascular Exam Cardiovascular: Present RRR *Routine Abdominal Exam Abdominal: Present soft Comments: no rebound tenderness dressing c/d/i *Routine Extremities Exam Extremities: Absent cyanosis, clubbing or edema *Routine Skin Exam Skin: Present warm; Absent rash *Routine Neurological Exam Neurological: Present alert and oriented X3 Assessment and Plan *Assessment and plan (1) Perforated bowel: Status: Acute Category: Medical Code(s): K63.1 - Perforation of intestine (nontraumatic) (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 Category: Medical Code(s): D01.0 - Carcinoma in situ of colon (3) 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: Status: Acute Category: Medical Code(s): C77.2 - Secondary and unspecified malignant neoplasm of intra-abdominal lymph nodes (4) Mass of pancreas: Status: Acute Category: Medical Code(s): K86.89 - Other specified diseases of pancreas (5) Hypertension: Status: Acute Qualifiers: Hypertension type: unspecified Qualified Code(s): I10 - Essential (primary) hypertension Category: Medical Code(s): I10 - Essential (primary) hypertension (6) Type 2 diabetes mellitus: Status: Acute Qualifiers: Diabetes mellitus adjunct faculty for medical terminology insulin use: with adjunct faculty for medical terminology use Diabetes mellitus complication status: with neurologic complications Diabetes mellitus complication detail: with polyneuropathy Qualified Code(s): E11.42 - Type 2 diabetes mellitus with diabetic polyneuropathy; Z79.4 - prison (current) use of insulin Category: Medical Code(s): E11.9 - Type 2 diabetes mellitus without complications (7) Obesity, Class II, BMI 35-39.9: Status: Acute Category: Medical Code(s): E66.9 - Obesity, unspecified Plan Mr. Womack is a 57 year old male with a past medical history of diabetes mellitus, hypertension and obesity who presented from [facility]
[2022-11-14 13:11] LABS: POC Glucose,Bedside 206 (70-110)
[2022-11-14 17:26] LABS: POC Glucose,Bedside 190 (70-110)
[2022-11-14 21:18] LABS: POC Glucose,Bedside 161 (70-110)
[2022-11-15] VITALS: BP 130/61; PULSE 55; PULSE 70; RESP 18; TEMP 36.8; O2SAT 93
[2022-11-15 04:00] VITALS: BP 142/70; PULSE 51; PULSE 70; RESP 18; TEMP 36.2; O2SAT 95; BMI 41.7
[2022-11-15 06:11] LABS: Chloride 107 mmol/L (98-107); Potassium 3.2 mmoL/L (3.5-5.1); Sodium 138 mmol/L (136-145)
[2022-11-15 06:14] LABS: Alanine Aminotransferase 14 U/L (12-78); Albumin Level 2.5 g/dl (3.5-5.0); Albumin/Globulin Ratio 0.7 (1.1-1.8); Alkaline Phosphatase 74 U/L (38-126); Anion Gap 9.2 mEq/L (5-15); Aspartate Amino Transferase 23 U/L (17-59); Bilirubin,Total 0.4 mg/dl (0.2-1.3); Blood Urea Nitrogen 5 mg/dl (9-20); Calcium 7.9 mg/dl (8.4-10.2); Carbon Dioxide 25 mmol/L (22.0-30.0); Creatinine Clearance Estimated 92 mL/min (50-200); Estimated Glomerular Filt Rate 87 ml/min (>60); GFR (African American) 105 ML/MIN (>60); Globulin 3.4 g/dL (1.3-3.2); Glucose 102 mg/dl (74-100); Total Protein,Serum 5.9 g/dl (6.3-8.2)
[2022-11-15 06:37] LABS: POC Glucose,Bedside 115 (70-110)
[2022-11-15 07:47] LABS: Basophils % 0.4 % (0.1-2.0); Eosinophils # 0.8 K/mm3 (0.0-0.4); Eosinophils % 6.5 % (0.1-12.0); Hematocrit 27.1 % (42.0-52.0); Hemoglobin 8.3 g/dL (14.1-18.0); Lymphocytes # 1.9 K/mm3 (0.7-4.5); Mean Corpuscular HGB Conc 30.8 g/dL (31.8-35.4); Mean Corpuscular Volume 81.1 fl (80-94); Mean Platelet Volume 7.7 fl (7.4-10.4); Monocytes % 8.6 % (1.7-9.3); Neutrophils # 8.1 K/mm3 (1.8-7.8); Neutrophils % 68.6 % (37.0-80.0); Platelet Count 442 K/mm3 (142-424); Red Blood Count 3.34 M/mm3 (4.60-6.20); Red Cell Distribution Width 16.5 % (11.5-17.5); White Blood Count 11.8 K/mm3 (4.8-10.8)
[2022-11-15 08:00] VITALS: BP 124/62; PULSE 60; RESP 22; TEMP 36.7; O2SAT 94
[2022-11-15 08:15] LABS: Magnesium 1.9 mg/dl (1.6-2.3)
--- NOTE | 2022-11-15 09:16 | PC.NURSE ---
pt ambulated one lap around unit with stand by assistance.
[2022-11-15 11:11] LABS: POC Glucose,Bedside 170 (70-110)
--- NOTE | 2022-11-15 11:11 | EXP.SURG.PN ---
Subjective Patient reports: no new complaints Narrative: Patient is tolerating full liquid diet. Moving bowels. No nausea. Half of his lenin have been removed. Exam Data for Last 24 hours Vital signs and Labs for Last 24 Hours: Temp Pulse Resp BP Pulse Ox O2 Del Method O2 Flow Rate 98.1 F 60 22 124/62 94 L Room Air 4 11/15/22 08:00 11/15/22 08:00 11/15/22 08:00 11/15/22 08:00 11/15/22 08:00 11/15/22 10:32 11/10/22 23:00 FiO2 25 11/10/22 06:30 Laboratory Results - last 24 hr 11/14/22 13:03: POC Glucose 206 H 11/14/22 17:19: POC Glucose 190 H 11/14/22 20:57: POC Glucose 161 H 11/15/22 05:41: WBC 11.8 H, RBC 3.34 L, Hgb 8.3 L, Hct 27.1 L, MCV 81.1, MCH 25.0 L, MCHC 30.8 L, RDW 16.5, Plt Count 442 H, MPV 7.7, Neut % (Auto) 68.6, Lymph % (Auto) 16.0, [place] % (Auto) 8.6, Eos % (Auto) 6.5, Baso % (Auto) 0.4, Neut # (Auto) 8.1 H, Lymph # (Auto) 1.9, [place] # (Auto) 1.0, Eos # (Auto) 0.8 H, Baso # (Auto) 0.0, Sodium 138, Potassium 3.2 L, Chloride 107, Carbon Dioxide 25, Anion Gap 9.2, BUN 5 L D, Creatinine 0.90, Estimated Creat Clear 92, Estimated GFR 87, Est GFR ( Amer) 105, Glucose 102 H, Calcium 7.9 L, Magnesium 1.9, Total Bilirubin 0.4, AST 23, ALT 14, Alkaline Phosphatase 74, Total Protein 5.9 L, Albumin 2.5 L, Globulin 3.4 H, Albumin/Globulin Ratio 0.7 L 11/15/22 06:27: POC Glucose 115 H 11/15/22 10:52: POC Glucose 170 H I & O for Last 24 hours: Intake & Output 07/31/11/13/22 11/14/22 11/15/22 11:59 11:59 11:59 11:59 Intake Total 5239 / 5239 510 / 510 3601 / 3601 2440 / 2440 Output Total 1400 / 1400 0 / 0 350 / 350 300 / 300 Balance 3839 / 3839 510 / 510 3251 / 3251 2140 / 2140 Weight 290 lb 9 oz 286 lb 11.2 oz 293 lb 1.6 oz 298 lb 1 oz Microbiology Reports for the Last 24 Hours: Microbiology 11/09/22 13:17 Blood Blood Culture - Final NO GROWTH AFTER 5 DAYS 11/09/22 10:55 Blood Blood Culture - Final NO GROWTH AFTER 5 DAYS *Routine Abdominal Exam Abdominal: Present soft Comments: Incision clean dry and intact. 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 Advance to bland diet. Still has somewhat of a leukocytosis with white blood cell count of 11,800. Given established peritonitis likely due to advocate completion of 10-day course of Zosyn. Currently on day 7. This may be done as an outpatient.
[2022-11-15 11:52] VITALS: BP 127/63; PULSE 55; RESP 20; TEMP 36.7; O2SAT 95
--- NOTE | 2022-11-15 15:02 | EXP.DC.SUM ---
General Admission date:: 11/09/22 Discharge date: 11/15/22 HPI HPI HPI: This is a 57-year-old male with PMHx Diabetes, HTN and Obesity presenting from [facility] with right lower quadrant abdominal pain and diarrhea over the last 24 hours. Stated he had numerous episodes of diarrhea since yesterday no blood in it no fevers or chills. No nausea or vomiting. No history of abdominal surgeries that he stated. He he has a known history of diabetes but denies any other medical problems. No urination changes such as materia dysuria urgency or frequency. No fevers or chills. Pain has been slowly worsening since last night. History taken from ER documentation. patient admitted and taken to OR. Hospital Course Hospital Course Hospital Course: Mr. Womack is a 57 year old male with a past medical history of diabetes mellitus, hypertension and obesity who presented from [facility] with right lower quadrant abdominal pain and diarrhea; he was admitted on 11/09 with an intra-abdominal abscess, peritonitis and suspected neoplasm. #sepsis with organ dysfunction #peritonitis #perforated necrotic carcinoma of the cecum #pancreatic tail mass, 2.7cm on 11/09 he had laparotomy with right hemicolectomy with ileocolic anastomosis and there were no apparent complications. The patient's diet was gradually advanced to a bland diet by day of discharge On the day of discharge the patient received zosyn day 10/22; a midline catheter was placed and he is to complete the remaining doses at [facility] blood cultures were without growth after 5 days Pathology is pending. time spent on this discharge was 40 minutes. Exam Data for Last 24 hours Vital signs and Labs for Last 24 Hours: Temp Pulse Resp BP Pulse Ox O2 Del Method O2 Flow Rate 98.0 F 55 L 20 127/63 95 Room Air 4 11/15/22 11:52 11/15/22 11:52 11/15/22 11:52 11/15/22 11:52 11/15/22 11:52 11/15/22 14:32 11/10/22 23:00 FiO2 25 11/10/22 06:30 Laboratory Results - last 24 hr 11/14/22 17:19: POC Glucose 190 H 11/14/22 20:57: POC Glucose 161 H 11/15/22 05:41: WBC 11.8 H, RBC 3.34 L, Hgb 8.3 L, Hct 27.1 L, MCV 81.1, MCH 25.0 L, MCHC 30.8 L, RDW 16.5, Plt Count 442 H, MPV 7.7, Neut % (Auto) 68.6, Lymph % (Auto) 16.0, [place] % (Auto) 8.6, Eos % (Auto) 6.5, Baso % (Auto) 0.4, Neut # (Auto) 8.1 H, Lymph # (Auto) 1.9, [place] # (Auto) 1.0, Eos # (Auto) 0.8 H, Baso # (Auto) 0.0, Sodium 138, Potassium 3.2 L, Chloride 107, Carbon Dioxide 25, Anion Gap 9.2, BUN 5 L D, Creatinine 0.90, Estimated Creat Clear 92, Estimated GFR 87, Est GFR ( Amer) 105, Glucose 102 H, Calcium 7.9 L, Magnesium 1.9, Total Bilirubin 0.4, AST 23, ALT 14, Alkaline Phosphatase 74, Total Protein 5.9 L, Albumin 2.5 L, Globulin 3.4 H, Albumin/Globulin Ratio 0.7 L 11/15/22 06:27: POC Glucose 115 H 11/15/22 10:52: POC Glucose 170 H I & O for Last 24 hours: Intake & Output 11/12/22 11/13/22 11/14/22 11/15/22 23:59 23:59 23:59 23:59 Intake Total 1790 / 1790 1440 / 1440 3241 / 3241 2200 / 2200 Output Total 900 / 900 150 / 150 300 / 300 200 / 200 Balance 890 / 890 1290 / 1290 2941 / 2941 1999 / 1999 Weight 131.797 kg 130.045 kg 132.948 kg 135.199 kg Microbiology Reports for the Last 24 Hours: Microbiology 11/09/22 13:17 Blood Blood Culture - Final NO GROWTH AFTER 5 DAYS 11/09/22 10:55 Blood Blood Culture - Final NO GROWTH AFTER 5 DAYS Constitutional Constitutional: no acute distress *Routine HEENT Exam Head: Present normocephalic Eye: Present EOMI and PERRL ENT: Present mucous membranes moist *Routine Neck Exam Neck: Present supple; Absent lymphadenopathy *Routine Respiratory Exam Respiratory: Present CTA bilaterally *Routine Cardiovascular Exam Cardiovascular: Present RRR *Routine Abdominal Exam Abdominal: Present soft Comments: no rebound tenderness dressing c/d/i *Routine Extremities Exam
== END 2022-11-15 16:29 | DRG 853 ==
LOC: ER 13:19 → 2ND 13:49
PROVIDERS: Internal Medicine; Surgery; Admitting Provider Internal Medicine Adolescent Medicine; Emergency Provider Student in an Organized Health Care Education/Training Program; PCP Family Medicine; Visit Provider Internal Medicine Adolescent Medicine
PROC: 0DTF0ZZ Resection of Right Large Intestine, Open Approach (ICD-10-PCS; CPT 44950; principal; 2022-11-09 15:00)
DX: A41.9 Sepsis, unspecified organism (principal); K35.32 Acute appendicitis with perforation, localized peritonitis, and gangrene, without abscess; C77.2 Secondary and unspecified malignant neoplasm of intra-abdominal lymph nodes; R65.20 Severe sepsis without septic shock; Z89.422 Acquired absence of other left toe(s); I10 Essential (primary) hypertension; E66.9 Obesity, unspecified; D01.0 Carcinoma in situ of colon; Z68.39 Body mass index [BMI] 39.0-39.9, adult; Z79.4 Long term (current) use of insulin; E11.42 Type 2 diabetes mellitus with diabetic polyneuropathy
CPT/HCPCS: 44140; 36410; 36415; 74018; 74177; 80053; 81001; 82962; 83036; 83605; 83690; 83735; 85007; 85025; 87040; 88302; 88307; 88309; 88341; 88342; 93005; 96374; 97163; 97165; 99291; J0330; J1335; J2405; J2543; Q9967

== ENCOUNTER 2022-11-16 01:53 | Emergency (ER) | payer MEDICAID, SELFPAY ==
[2022-11-16 01:53] VITALS: BP 103/57; PULSE 57; RESP 16; TEMP 36.9; O2SAT 96; BMI 34.8
--- NOTE | 2022-11-16 01:57 | HMH.EDGENADL ---
Discharge Plan Disposition Patient Disposition: Xfer Short-Term Hosp Condition: Fair Chief Complaint: Recheck/Abnormal Lab/Rx Prescriptions Prescriptions: No Action insulin glargine [Lantus U-100 Insulin] 100 unit/mL solution 30 unit SQ HS insulin lispro 100 unit/mL solution 10 unit SQ TID ferrous sulfate 134 mg (27 mg iron) tablet 134 mg PO DAILY spironolactone 25 mg Tablet 25 mg PO BID hydrochlorothiazide 25 mg Tablet 25 mg PO BID carvedilol [Coreg] 12.5 mg tablet 12.5 mg PO BID amlodipine 10 mg tablet 10 mg PO DAILY valsartan 320 mg tablet 320 mg PO DAILY Piperacillin/Tazo [Zosyn 4.5gm ADV] 4.5 GM 0.9 % Sodium Chloride [Sod Chloride 0.9% 100mL Adv.] 100 ML 200 mls/hr IV Q6H Ordered By: Markell Atwood MD Last Taken: Unknown Activity Restrictions/Add. Instructions Additional Instructions/Restrictions: Your midline catheter has been redressed, flushes and draws and is appropriate for continued use. If new or worsening symptoms please do not hesitate to return to the emergency department. Clinical Impressions Clinical Impression: Complication of intravenous catheter site Discharge ED Provider: Alexandre Yung General Adult HPI General Chief complaint: Recheck/Abnormal Lab/Rx Stated complaint: pulled out PICC line Time Seen by Provider: 11/16/22 01:57 History of Present Illness HPI narrative: Patient is a 57-year-old male with past medical history of diabetes, hypertension, recent perforated necrotic carcinoma of the cecum status post right hemicolectomy with ileocolonic anastomosis, recently discharged with PICC line for Zosyn administration who presents emergency department for evaluation of dislodgment of his midline catheter. Patient is on sure how it became dislodged. He has no acute complaints at this time. Related Data Home Medications Medication Instructions Recorded Confirmed insulin glargine 100 unit/mL 30 unit SQ HS Diabetes 01/08/22 11/10/22 subcutaneous solution (Lantus U-100 Insulin) insulin lispro 100 unit/mL 10 unit SQ TID Diabetes 01/08/22 11/10/22 subcutaneous solution ferrous sulfate 134 mg (27 mg 134 mg PO DAILY Supplement 03/13/22 11/10/22 iron) tablet hydrochlorothiazide 25 mg tablet 25 mg PO BID High Blood Pressure 11/09/22 11/09/22 spironolactone 25 mg tablet 25 mg PO BID Edema 11/09/22 11/09/22 amlodipine 10 mg tablet 10 mg PO DAILY High Blood Pressure 11/10/22 11/10/22 carvedilol 12.5 mg tablet (Coreg) 12.5 mg PO BID High Blood Pressure 11/10/22 11/10/22 valsartan 320 mg tablet 320 mg PO DAILY High Blood Pressure 11/10/22 11/10/22 Previous Rx's Medication Instructions Recorded Piperacillin/Tazo [Zosyn 4.5gm 200 mls/hr IV Q6H 11/15/22 ADV] 4.5 gm Allergies Allergy/AdvReac Type Severity Reaction Status Date / Time No Known Allergies Allergy Verified 08/21/22 10:53 [facility] Disclaimer: The information contained in this section may have been updated after the patient was seen, as this information can be updated by other users. Medical History Abnormal electrocardiogram [ECG] [EKG] Amputation of fifth toe of left foot Amputation of toe of left foot History of MRSA infection Right bundle branch block Family History Coronary artery disease CHF (congestive heart failure) Father Cancer Father Hypertension Sister Social History (Updated 11/09/22 @ 22:54 by Eboni De Los Santos RN) Smoking Status: Never smoker alcohol intake: never substance use type: denies use current occupational status: other Travel in the last 8 weeks: None ROS Obtained: Yes Systems reviewed as appropriate & no additional complaints except as documented Physical Exam General General appearance: alert and in no apparent distress Head Head exam: atraumatic and normocephalic Eye Eye exam: Prese
--- NOTE | 2022-11-16 01:59 | XR_ITS ---
PROCEDURE INFORMATION: Exam: XR Chest Exam date and time: 11/16/2022 2:04 AM Age: 57 years old Clinical indication: Device placement; Picc; Additional info: Picc eval TECHNIQUE: Imaging protocol: Radiologic exam of the chest. Views: 1 view. COMPARISON: CR XR CHEST PORTABLE PICC PLAC 01/10/2022 1:45 PM FINDINGS: Lungs: Patchy opacities noted at each lung base. Pleural spaces: Small left pleural effusion. Heart/Mediastinum: Mildly enlarged cardiac silhouette. Bones/joints: Age appropriate. IMPRESSION: 1. PICC is not visualized. 2. Patchy bibasilar opacities may reflect atelectasis or developing pneumonia. There is a small left pleural effusion.
--- NOTE | 2022-11-16 01:59 | XR_ITS ---
PROCEDURE INFORMATION: Exam: XR Left Shoulder Exam date and time: 11/16/2022 2:04 AM Age: 57 years old Clinical indication: Device placement; Other: Picc line; Additional info: Picc eval TECHNIQUE: Imaging protocol: Radiologic exam of the left shoulder. Views: 1 view. COMPARISON: CR XR CHEST PORTABLE PICC PLAC 01/10/2022 1:45 PM FINDINGS: Tubes, catheters and devices: Left upper extremity PICC is in position with the tip projecting just proximal to the axilla. Bones/joints: Normal appearance of the shoulder on frontal view. Soft tissues: Normal. IMPRESSION: PICC terminates just proximal to the axilla.
[2022-11-16 02:30] VITALS: BP 104/50
[2022-11-16 04:02] VITALS: BP 118/54; PULSE 61; RESP 16; TEMP 36.9; O2SAT 96
--- NOTE | 2022-11-16 04:04 | PC.NURSE ---
notified mobile ems that pt is ready for transported back to [facility]
== END 2022-11-16 04:24 ==
PROVIDERS: Emergency Provider Emergency Medicine; PCP Family Medicine
DX: T82.524A Displacement of infusion catheter, initial encounter (principal); C18.0 Malignant neoplasm of cecum; E11.9 Type 2 diabetes mellitus without complications; I10 Essential (primary) hypertension
CPT/HCPCS: 71045; 73020; 99284

== ENCOUNTER → 2022-11-20 22:05 | Outpatient (CLI) | payer MEDICAID, SELFPAY | PROVIDERS: PCP Nurse Practitioner Family; Visit Provider Nurse Practitioner Family | DX: E11.621 Type 2 diabetes mellitus with foot ulcer (principal); L97.529 Non-pressure chronic ulcer of other part of left foot with unspecified severity; Z79.4 Long term (current) use of insulin | CPT/HCPCS: 87070; 87077; 87186; 87205 ==

== ENCOUNTER → 2022-12-10 14:07 | Outpatient (CLI) | payer MEDICAID, SELFPAY ==
[2022-12-10 15:25] LABS: Alanine Aminotransferase 20 U/L (12-78); Albumin Level 3.2 g/dl (3.5-5.0); Alkaline Phosphatase 94 U/L (38-126); Aspartate Amino Transferase 29 U/L (17-59); Bilirubin,Direct 0.1 mg/dl (0.0-0.4); Bilirubin,Indirect 0.1 mg/dL (0.0-0.9); Bilirubin,Total 0.2 mg/dl (0.2-1.3); Bilirubin,Unconjugated 0.1 mg/dL (0.0-1.1); Chol/HDL Ratio 4.8 (1-3.5); Cholesterol 111 mg/dl (140-200); HDL Cholesterol 23 mg/dl (40-60); Triglycerides 235 mg/dl (30-150); VLDL Cholesterol 47 mg/dL (0-40)
[2022-12-10 15:37] LABS: Direct LDL Cholesterol 57.18 mg/dL (100-129)
== END ==
PROVIDERS: PCP Family Medicine; Visit Provider Nurse Practitioner
DX: E11.9 Type 2 diabetes mellitus without complications (principal); I11.9 Hypertensive heart disease without heart failure; Z79.4 Long term (current) use of insulin
CPT/HCPCS: 36415; 80061; 80076

== ENCOUNTER 2022-12-27 13:34 | Outpatient (CLI) | payer MEDICAID, SELFPAY ==
[2022-12-27 13:36] VITALS: BMI 36.8
[2022-12-27 14:00] LABS: Basophils % 0.4 % (0.1-2.0); Eosinophils # 0.6 K/mm3 (0.0-0.4); Eosinophils % 5.3 % (0.1-12.0); Hemoglobin 11.4 g/dL (14.1-18.0); Lymphocytes # 2.5 K/mm3 (0.7-4.5); Lymphocytes % 21.3 % (10-50); Mean Corpuscular HGB Conc 30.9 g/dL (31.8-35.4); Mean Corpuscular Hemoglobin 24.1 pg (27.0-31.2); Mean Corpuscular Volume 77.9 fl (80-94); Mean Platelet Volume 7.3 fl (7.4-10.4); Monocytes # 0.7 K/mm3 (0.1-1.0); Monocytes % 6.4 % (1.7-9.3); Neutrophils # 7.7 K/mm3 (1.8-7.8); Neutrophils % 66.5 % (37.0-80.0); Platelet Count 402 K/mm3 (142-424); Red Blood Count 4.75 M/mm3 (4.60-6.20); Red Cell Distribution Width 17.5 % (11.5-17.5); White Blood Count 11.5 K/mm3 (4.8-10.8)
[2022-12-27 14:06] LABS: Alanine Aminotransferase 29 U/L (12-78); Albumin Level 3.7 g/dl (3.5-5.0); Albumin/Globulin Ratio 0.9 (1.1-1.8); Alkaline Phosphatase 96 U/L (38-126); Anion Gap 16.9 mEq/L (5-15); Aspartate Amino Transferase 44 U/L (17-59); Bilirubin,Total 0.2 mg/dl (0.2-1.3); Blood Urea Nitrogen 20 mg/dl (9-20); Calcium 9.1 mg/dl (8.4-10.2); Carbon Dioxide 20 mmol/L (22.0-30.0); Chloride 105 mmol/L (98-107); Creatinine Clearance Estimated 124 mL/min (50-200); Estimated Glomerular Filt Rate 69 ml/min (>60); GFR (African American) 83 ML/MIN (>60); Globulin 4.1 g/dL (1.3-3.2); Glucose 142 mg/dl (74-100); Potassium 4.9 mmoL/L (3.5-5.1); Sodium 137 mmol/L (136-145); Total Protein,Serum 7.8 g/dl (6.3-8.2)
[2022-12-29 10:11] LABS: CEA 1.7 ng/mL (0.0-4.7)
== END 2022-12-27 13:50 | disposition home or self-care (01) ==
LOC: INF 13:34
PROVIDERS: PCP Family Medicine; Visit Provider Internal Medicine Medical Oncology
DX: C18.9 Malignant neoplasm of colon, unspecified (principal)
CPT/HCPCS: 36415; 80053; 82378; 85025

== ENCOUNTER → 2023-01-15 09:19 | Outpatient (CLI) | payer MEDICAID, SELFPAY ==
--- NOTE | 2023-01-15 09:24 | CT_ITS ---
FINAL REPORT CLINICAL HISTORY: COLON CANCER FINDINGS: Axial CT images of the chest were obtained with contrast. Coronal reformatted images were also obtained. This study was performed with techniques to keep radiation doses as low as reasonably achievable, (ALARA). Individualized dose reduction techniques using automated exposure control or adjustment of mA and/or KV according to the patient's size were employed. There is bilateral gynecomastia. There is no evidence of mediastinal or hilar mass or adenopathy.No axillary mass or adenopathy is identified. There is a 5 mm nodule in the right major fissure which is nonspecific seen on image 44. There is a 4 mm left lower lobe nodule seen on image 54. There are inferior lingular nodules measuring up to 5 mm seen on image 50. There is a 5 mm right middle lobe nodule seen on image 53. IMPRESSION: Nonspecific small pulmonary nodules, may represent granulomas versus metastases. Recommend follow-up CT in 6 months. Reviewed, Interpreted and Dictated by Morro Gonzalez III, MD Transcribed by Victoria Sultana Authenticated and [facility]
--- NOTE | 2023-01-15 09:24 | CT_ITS ---
FINAL REPORT TECHNIQUE: Postcontrast axial images through the abdomen and pelvis were performed. This study was performed with techniques to keep radiation doses as low as reasonably achievable, (ALARA). Individualized dose reduction techniques using automated exposure control or adjustment of mA and/or kV according to the patient's size were employed. CLINICAL HISTORY: COLON CANCER COMPARISON: 11/09/2022 FINDINGS: Abdomen: There is a possible mass in the posterior right hepatic lobe measuring 16 mm seen on image 35 worrisome for hepatic metastases. The spleen is unremarkable. The adrenals are normal. Pancreatic tail mass is again identified measuring 33 mm, stable. There is a small right renal cyst. The aorta is normal in caliber. There is no free fluid. Pelvis: The appendix is not identified. There are interval postoperative changes in the region of the cecum with resection of the cecal mass. There is persistent stranding in this region, favor postoperative change. There is wall thickening of the ileum, favor inflammatory/postoperative. The urinary bladder is unremarkable. There are borderline bilateral external iliac nodes which are stable. There are mild enlarged bilateral inguinal nodes which are worse may be reactive or neoplastic. There is no free fluid, free air, or abscess. IMPRESSION: Worsening bilateral inguinal nodes which may be reactive or neoplastic. Follow-up CT or PET-CT may be helpful. Findings worrisome for hepatic metastases. Recommend follow-up CT, PET-CT or liver MRI. Reviewed, Interpreted and Dictated by Morro Gonzalez III, MD Transcribed by Victoria Sultana Authenticated and . [facility]
== END ==
LOC: RAD 09:20
PROVIDERS: PCP Family Medicine; Visit Provider Internal Medicine Medical Oncology
DX: C18.0 Malignant neoplasm of cecum (principal)
CPT/HCPCS: 71260; 74177; Q9967

== ENCOUNTER → 2023-02-18 07:46 | Outpatient (CLI) | payer MEDICAID, SELFPAY ==
--- NOTE | 2023-02-18 07:49 | MR_ITS ---
FINAL REPORT TECHNIQUE: Multiplanar and multisequence imaging was obtained before and after the intravenous injection of gadolinium contrast. CLINICAL HISTORY: COLON CANCER. COMPARISON: None FINDINGS: There is a T2 hyperintense focus of signal in the posterior right lobe of the liver, hypointense on T1-weighted images, measuring 15 mm in size seen in series #13 image #12. This is stable since the prior CT examination. This lesion does not convincingly demonstrate restricted diffusion. There may be a second lesion in the dome of the right lobe. There is a lesion in the tail of the pancreas, measuring 3.1 cm, unchanged from the prior CT. This lesion is similar in signal to the spleen on all precontrast images.. The gallbladder is present. The spleen is normal in size and signal intensity. The adrenal glands are without acute abnormality. There is no hydronephrosis or renal mass. The kidneys are unremarkable. Limited evaluation of the GI tract is without acute abnormality. There is no abdominal lymphadenopathy or ascites. Postcontrast images reveal that the hepatic lesion described earlier enhances homogeneously on early arterial phase images and maintains enhancement through late stage. There is a second lesion in the dome of the right lobe of the liver that is better seen after contrast enhancement, best seen in series #20 image #17, measuring 10 mm. This mass also continues to enhance on delayed images. Unfortunately, this is a nonspecific enhancement appearance, and metastases are not excluded. The abnormal focus of signal in the tail of the pancreas enhances similarly to the spleen. This may represent a splenule in the tail of the pancreas. IMPRESSION: 2 small enhancing liver lesions, not a pattern typical of metastases, as there is no washout over time. Would consider a short follow-up examination to determine stability. PET/CT may be helpful. Abnormality in the tail of the pancreas, stable since the prior examination, with signal characteristics similar to the spleen on all imaging sequences. This may represent a splenule in the tail of the spleen. Once again follow-up is suggested. Reviewed, Interpreted and Dictated by Patsy Wayne MD Transcribed by Arminda Grimaldo Authenticated and [facility]
[2023-02-18 08:31] LABS: Basophils # 0.1 K/mm3 (0-0.2); Basophils % 0.4 % (0.1-2.0); Eosinophils # 0.6 K/mm3 (0.0-0.4); Eosinophils % 4.1 % (0.1-12.0); Hematocrit 35.2 % (42.0-52.0); Hemoglobin 12.2 g/dL (14.1-18.0); Lymphocytes % 20.8 % (10-50); Mean Corpuscular HGB Conc 34.7 g/dL (31.8-35.4); Mean Corpuscular Hemoglobin 28.8 pg (27.0-31.2); Mean Corpuscular Volume 82.9 fl (80-94); Mean Platelet Volume 7.9 fl (7.4-10.4); Monocytes # 1.1 K/mm3 (0.1-1.0); Monocytes % 7.3 % (1.7-9.3); Neutrophils # 9.7 K/mm3 (1.8-7.8); Neutrophils % 67.4 % (37.0-80.0); Platelet Count 414 K/mm3 (142-424); Red Blood Count 4.25 M/mm3 (4.60-6.20); Red Cell Distribution Width 21.7 % (11.5-17.5); White Blood Count 14.5 K/mm3 (4.8-10.8)
[2023-02-18 08:43] LABS: Alanine Aminotransferase 23 U/L (12-78); Albumin Level 4.4 g/dl (3.5-5.0); Albumin/Globulin Ratio 1.1 (1.1-1.8); Alkaline Phosphatase 78 U/L (38-126); Anion Gap 16.3 mEq/L (5-15); Aspartate Amino Transferase 42 U/L (17-59); Bilirubin,Total 0.5 mg/dl (0.2-1.3); Blood Urea Nitrogen 22 mg/dl (9-20); Calcium 9.3 mg/dl (8.4-10.2); Carbon Dioxide 24 mmol/L (22.0-30.0); Chloride 101 mmol/L (98-107); Estimated Glomerular Filt Rate 62 ml/min (>60); GFR (African American) 75 ML/MIN (>60); Glucose 129 mg/dl (74-100); Potassium 4.3 mmoL/L (3.5-5.1); Sodium 137 mmol/L (136-145); Total Protein,Serum 8.4 g/dl (6.3-8.2)
[2023-02-19 10:51] LABS: CA 19-9 20 U/mL (0-35); CEA 1.8 ng/mL (0.0-4.7)
== END ==
LOC: RAD 07:47
PROVIDERS: PCP Family Medicine; Visit Provider Internal Medicine Medical Oncology
DX: C18.9 Malignant neoplasm of colon, unspecified (principal)
CPT/HCPCS: 36415; 74183; 80053; 82378; 82565; 84520; 85025; 86316; A9576

== ENCOUNTER → 2023-02-20 16:57 | Outpatient (CLI) | payer MEDICAID, SELFPAY | PROVIDERS: PCP Family Medicine; Visit Provider Nurse Practitioner Family | DX: M79.674 Pain in right toe(s) (principal); S91.101A Unspecified open wound of right great toe without damage to nail, initial encounter; S91.301A Unspecified open wound, right foot, initial encounter; B95.7 Other staphylococcus as the cause of diseases classified elsewhere | CPT/HCPCS: 87070; 87205 ==

== ENCOUNTER → 2023-03-14 11:27 | Outpatient (CLI) | payer MEDICAID, SELFPAY ==
[2023-03-14 12:20] LABS: Basophils % 0.3 % (0.1-2.0); Eosinophils # 0.3 K/mm3 (0.0-0.4); Hematocrit 36.6 % (42.0-52.0); Hemoglobin 9.9 g/dL (14.1-18.0); Lymphocytes # 1.6 K/mm3 (0.7-4.5); Lymphocytes % 9.7 % (10-50); Mean Corpuscular Hemoglobin 24.4 pg (27.0-31.2); Mean Corpuscular Volume 90.3 fl (80-94); Mean Platelet Volume 8.5 fl (7.4-10.4); Monocytes # 1.3 K/mm3 (0.1-1.0); Monocytes % 7.8 % (1.7-9.3); Neutrophils # 13.5 K/mm3 (1.8-7.8); Neutrophils % 80.3 % (37.0-80.0); Platelet Count 349 K/mm3 (142-424); Red Blood Count 4.05 M/mm3 (4.60-6.20); Red Cell Distribution Width 23.1 % (11.5-17.5); White Blood Count 16.9 K/mm3 (4.8-10.8)
[2023-03-14 12:32] LABS: MANUAL DIFFERENTIAL MANUAL DIFFERENTIAL (MANUAL DIFF)
[2023-03-14 12:53] LABS: Alanine Aminotransferase 28 U/L (12-78); Albumin Level 4.1 g/dl (3.5-5.0); Albumin/Globulin Ratio 1.1 (1.1-1.8); Alkaline Phosphatase 67 U/L (38-126); Anion Gap 20.6 mEq/L (5-15); Aspartate Amino Transferase 53 U/L (17-59); Bilirubin,Total 0.8 mg/dl (0.2-1.3); Blood Urea Nitrogen 47 mg/dl (9-20); Calcium 8.6 mg/dl (8.4-10.2); Chloride 108 mmol/L (98-107); Estimated Glomerular Filt Rate 28 ml/min (>60); GFR (African American) 34 ML/MIN (>60); Globulin 3.7 g/dL (1.3-3.2); Glucose 175 mg/dl (74-100); Potassium 4.6 mmoL/L (3.5-5.1); Sodium 131 mmol/L (136-145); Total Protein,Serum 7.8 g/dl (6.3-8.2)
[2023-03-14 12:59] LABS: Eosinophils % 2 % (0-3); Lymphocytes % 6 % (10-50); Monocytes % 8 % (2-9); Neutrophils % 83 % (42-76); Total Cells Counted 100
[2023-03-14 13:00] LABS: Acanthocytes 1+; Anisocytosis 2+; Macrocytosis 1+; Platelet Estimate Normal; Poikilocytosis 1+
[2023-03-14 13:06] LABS: Carbon Dioxide 7 mmol/L (22.0-30.0)
== END ==
PROVIDERS: PCP Family Medicine; Visit Provider Internal Medicine Medical Oncology
DX: C18.2 Malignant neoplasm of ascending colon (principal)
CPT/HCPCS: 36415; 80053; 85007; 85025

== ENCOUNTER → 2023-04-03 10:17 | Outpatient (CLI) | payer MEDICAID, SELFPAY ==
[2023-04-03 10:40] LABS: Basophils % 0.4 % (0.1-2.0); Eosinophils # 0.6 K/mm3 (0.0-0.4); Eosinophils % 6.2 % (0.1-12.0); Hematocrit 35.3 % (42.0-52.0); Hemoglobin 12.1 g/dL (14.1-18.0); Lymphocytes # 2.7 K/mm3 (0.7-4.5); Lymphocytes % 28.2 % (10-50); Mean Corpuscular HGB Conc 34.4 g/dL (31.8-35.4); Mean Corpuscular Hemoglobin 30.9 pg (27.0-31.2); Mean Corpuscular Volume 89.8 fl (80-94); Mean Platelet Volume 6.4 fl (7.4-10.4); Monocytes # 0.7 K/mm3 (0.1-1.0); Monocytes % 7.6 % (1.7-9.3); Neutrophils # 5.6 K/mm3 (1.8-7.8); Neutrophils % 57.7 % (37.0-80.0); Platelet Count 273 K/mm3 (142-424); Red Blood Count 3.93 M/mm3 (4.60-6.20); Red Cell Distribution Width 18.7 % (11.5-17.5); White Blood Count 9.7 K/mm3 (4.8-10.8)
[2023-04-03 10:50] LABS: Chloride 104 mmol/L (98-107); Potassium 4.2 mmoL/L (3.5-5.1); Sodium 138 mmol/L (136-145)
[2023-04-03 10:52] LABS: Blood Urea Nitrogen 16 mg/dl (9-20); Estimated Glomerular Filt Rate 69 ml/min (>60); GFR (African American) 83 ML/MIN (>60)
[2023-04-03 10:53] LABS: Alanine Aminotransferase 25 U/L (12-78); Albumin Level 4.2 g/dl (3.5-5.0); Albumin/Globulin Ratio 1.2 (1.1-1.8); Alkaline Phosphatase 76 U/L (38-126); Anion Gap 15.2 mEq/L (5-15); Aspartate Amino Transferase 51 U/L (17-59); Bilirubin,Total 0.6 mg/dl (0.2-1.3); Carbon Dioxide 23 mmol/L (22.0-30.0); Globulin 3.5 g/dL (1.3-3.2); Glucose 126 mg/dl (74-100); Total Protein,Serum 7.7 g/dl (6.3-8.2)
== END ==
PROVIDERS: PCP Family Medicine; Visit Provider Internal Medicine Medical Oncology
DX: C18.2 Malignant neoplasm of ascending colon (principal)
CPT/HCPCS: 36415; 80053; 85025

== ENCOUNTER 2023-05-31 08:08 | Outpatient (CLI) | payer MEDICAID, SELFPAY ==
--- NOTE | 2023-05-31 08:22 | CT_ITS ---
FINAL REPORT CLINICAL HISTORY: COLON CANCER COMPARISON: 01/15/2023 FINDINGS: CT OF THE ABDOMEN AND PELVIS WITH CONTRAST Axial CT images of the abdomen and pelvis were obtained after the administration of oral and iv contrast. Coronal and sagittal reformatted images were also obtained and reviewed.This study was performed with techniques to keep radiation doses as low as reasonably achievable (ALARA). Individualized dose reduction techniques using automated exposure control or adjustment of mA and/or kV according to the patient's size were employed. Abdomen: There is mild atelectasis versus scar present in the lung bases.. The heart is normal in size. There is fatty infiltration of the liver. There is a persistent 11 mm mass in the posterior aspect of the right hepatic lobe seen best on image #29. Metastases are not excluded. The spleen is unremarkable. No adrenal mass is present. The pancreatic mass in the tail of the pancreas noted on the prior exam measures 35 x 34 mm, stable since the prior exam. The kidneys are normal, without evidence of mass or hydronephrosis. The aorta is normal in caliber. There are multiple small bilateral retroperitoneal nodes, stable since the prior exam. Postoperative changes are once again noted in the cecum. There are multiple small nodular opacities just medial to the ascending colon, which have increased in size and number since the prior examination. These may represent reactive change or neoplastic infiltration. Adjacent stranding is seen. There is also stranding present in the patient's umbilical hernia, that may represent inflammatory or postoperative change. Pelvis: The appendix is not well-visualized. The urinary bladder is unremarkable. No inflammatory process is seen. There are multiple bilateral external iliac nodes, stable. These may also represent reactive or neoplastic adenopathy. Bilateral inguinal adenopathy persists, and is stable. The largest normal lymph node measures 33 mm, essentially stable. There is no evidence of bowel obstruction. There is a small sclerotic focus present in the right iliac bone, likely a bone island . IMPRESSION: Persistent 16 mm mass in the posterior right hepatic lobe as described. Additional follow-up CT or MRI might be helpful. The mass in the tail of the pancreas also remained stable. There are multiple small nodules just medial to the ascending colon, which have increased slightly since the prior exam. These may represent reactive or neoplastic adenopathy. There are also multiple small bilateral retroperitoneal nodes, stable. Bilateral inguinal adenopathy persists as well, stable. Reviewed, Interpreted and Dictated by Morro Gonzalez III, MD Transcribed by Arminda Grimaldo Authenticated and [facility]
[2023-05-31 08:52] LABS: Blood Urea Nitrogen 17 mg/dl (9-20); Estimated Glomerular Filt Rate 76 ml/min (>60); GFR (African American) 93 ML/MIN (>60)
[2023-05-31] MEDS: IOPAMIDOL-370 (76%);100ML BOTTLE 75 ML IV (09:38)
[2023-05-31] MEDS: SODIUM CHLORIDE 0.9% 10ML SYR (RAD ONLY) 10 ML IV (09:38)
== END 2023-05-31 23:59 ==
LOC: RAD 08:08
PROVIDERS: PCP Family Medicine; Visit Provider Internal Medicine Medical Oncology
DX: D01.0 Carcinoma in situ of colon (principal)
CPT/HCPCS: 36415; 74177; 82565; 84520; Q9967

== ENCOUNTER 2023-06-12 14:17 | Outpatient (CLI) | payer MEDICAID, SELFPAY ==
[2023-06-12 15:14] LABS: Microalbumin/Creatinine Ratio 18.9
[2023-06-12 15:21] LABS: Creatinine,Urine Random 191 mg/dL (Not Estab.)
[2023-06-12 15:58] LABS: Alanine Aminotransferase 24 U/L (12-78); Alkaline Phosphatase 88 U/L (38-126); Anion Gap 14.2 mEq/L (5-15); Aspartate Amino Transferase 38 U/L (17-59); Bilirubin,Direct 0.2 mg/dl (0.0-0.4); Bilirubin,Indirect 0.6 mg/dL (0.0-0.9); Bilirubin,Total 0.8 mg/dl (0.2-1.3); Bilirubin,Unconjugated 0.6 mg/dL (0.0-1.1); Blood Urea Nitrogen 17 mg/dl (9-20); Calcium 9.3 mg/dl (8.4-10.2); Carbon Dioxide 21 mmol/L (22.0-30.0); Chloride 108 mmol/L (98-107); Chol/HDL Ratio 4.5 (1-3.5); Cholesterol 139 mg/dl (140-200); Estimated Glomerular Filt Rate 76 ml/min (>60); GFR (African American) 93 ML/MIN (>60); Glucose 136 mg/dl (74-100); HDL Cholesterol 31 mg/dl (40-60); Potassium 4.2 mmoL/L (3.5-5.1); Sodium 139 mmol/L (136-145); Total Protein,Serum 7.5 g/dl (6.3-8.2); Triglycerides 242 mg/dl (30-150); VLDL Cholesterol 48 mg/dL (0-40)
[2023-06-12 16:01] LABS: Free T4 (Free Thyroxine) 1.32 ng/dl (0.78-2.19)
[2023-06-12 16:08] LABS: NT Pro Brain Natriuretic Pep. 218 pg/mL (0-125)
[2023-06-12 16:09] LABS: Direct LDL Cholesterol 79.98 mg/dL (100-129)
[2023-06-12 16:29] LABS: Thyroid Stimulating Hormone 2.67 uIU/mL (0.465-4.68)
== END 2023-06-12 23:59 ==
PROVIDERS: PCP Family Medicine; Visit Provider Internal Medicine
DX: R06.00 Dyspnea, unspecified (principal); I50.9 Heart failure, unspecified; I45.10 Unspecified right bundle-branch block; I10 Essential (primary) hypertension; R60.0 Localized edema; R94.31 Abnormal electrocardiogram [ECG] [EKG]; E11.9 Type 2 diabetes mellitus without complications; Z79.4 Long term (current) use of insulin
CPT/HCPCS: 36415; 80048; 80061; 80076; 82043; 82570; 83880; 84155; 84439; 84443

== ENCOUNTER 2023-06-26 13:54 | Outpatient (CLI) | payer MEDICAID, SELFPAY ==
--- NOTE | 2023-06-26 13:55 | CA_ITS ---
FINAL REPORT CLINICAL HISTORY: edema of BLE FINDINGS: Color Doppler, duplex Doppler and compression sonography of the bilateral lower extremities was performed. There is no evidence of deep venous thrombosis from the level of the groin to the calf. The deep veins are patent and compressible. IMPRESSION: No evidence of deep venous thrombosis bilateral lower extremities. Reviewed, Interpreted and Dictated by Morro Gonzalez III, MD Transcribed by Yin Figueroa Authenticated and [facility] [place] [place]
--- NOTE | 2023-06-26 13:57 | CA_ITS ---
FINAL REPORT TECHNIQUE: Duplex color Doppler with spectral analysis performed of the lower extremities. CLINICAL HISTORY: edema of BLE FINDINGS: RIGHT LOWER EXTREMITY: Velocities cm/sec: ELECTROFORMER: 93 SFA Prox: 111 SFA Mid: 122 SFA Dist: 104 Ysabel: 86 GANG BORE OPERATOR: 127 CHANDRA: 105 Waveforms are triphasic. LEFT LOWER EXTREMITY: Velocities cm/sec: ELECTROFORMER: 102 SFA Prox: 104 SFA Mid: 94 SFA Dist: 94 Ysabel: 103 GANG BORE OPERATOR: 93 CHANDRA: 117 Waveforms are triphasic. IMPRESSION: No significant peripheral artery disease. Reviewed, Interpreted and Dictated by Morro Gonzalez III, MD Transcribed by Victoria Sultana Authenticated and [facility]
--- NOTE | 2023-06-26 13:57 | CA_ITS ---
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 Echo Enhancing Agent Indication: Endocardial border delineation Agent(s) / Amount(s) Used: Definity 2 cc 2D Dimensions LVEF (Hope's) 46.00 % M: 52 - 72 LV Volume 127.20 mL M: 62 - 150 LV Volume Index 53.2 mL/m2 M: 34 - 74 LA Volume 43.40 mL LA Volume Index 18.16 mL/m2 (M/F) 16-34 EF AP4 56.00 % EF AP2 33.0 % EF BP 46.0 % GL Strain -13.8 % M-Mode Dimensions RVDd 3.84 cm (0.9-2.6) LA Diam 2.76 cm (1.9-4.0) LVDd 4.82 cm (3.5-5.7) LVDs 3.88 cm (3.5-5.7) IVSd 1.08 cm (0.6-1.1) PWd 1.28 cm (0.6-1.1) EF (Teich) 40.10% FS 19.50% EDV (Teich) 108.60 mL ESV (Teich) 65.10 mL LV Diastology E Decel Time 210 (160-240 msec) E/A Ratio 1.0 Mitral Valve MV E Max Marlo. 70.0 (40-130 cm/s) MV A Velocity 72.0 (40-130 cm/s) E/A Ratio 0.98 MV PHT 62.0 ms Left Ventricle The left ventricle is normal size. The left ventricular systolic function is normal. The left ventricular ejection fraction is within the normal range. There is normal left ventricular wall thickness. The septum is asynchronous. The left ventricular diastolic function is normal. LVEF is 60%. Right Ventricle The right ventricle is normal size. The right ventricular systolic function is normal. Atria The left atrium size is normal. The right atrium size is normal. There is no Doppler evidence of interatrial shunt. Aortic Valve The aortic valve is normal in structure. There is no aortic valvular stenosis. Trace aortic regurgitation. Mitral Valve The mitral valve is normal in structure. No evidence of mitral valve stenosis. There is no mitral valve regurgitation noted. Tricuspid Valve The tricuspid valve leaflets are thin and pliable. Trace tricuspid regurgitation. There is insufficient TR jet to estimate RVSP. Pulmonic Valve The pulmonary valve is normal in structure. Trace pulmonic regurgitation. Great Vessels The aortic root is normal in size. The ascending aorta is not well-visualized. The IVC is not well-visualized. Pericardium There is no pericardial effusion. Other Information Study Quality: Fair Conclusion Normal biventricular systolic function. Asynchronous septum. No significant valvular stenosis or regurgitation. Electronically signed by : Tammy Iniguez MD 06/29/2023 22:10:58
[2023-06-26] MEDS: DEFINITY US ECHO CONTRAST 2ML INJ 2 MG IV (14:38)
== END 2023-06-26 23:59 ==
LOC: RT 13:55
PROVIDERS: PCP Family Medicine; Visit Provider Internal Medicine
DX: R94.31 Abnormal electrocardiogram [ECG] [EKG] (principal); I45.10 Unspecified right bundle-branch block; R60.0 Localized edema; I10 Essential (primary) hypertension; I73.9 Peripheral vascular disease, unspecified; E11.9 Type 2 diabetes mellitus without complications; Z79.4 Long term (current) use of insulin
CPT/HCPCS: 93306; 93925; 93970; Q9957

== ENCOUNTER 2023-10-03 14:10 | Outpatient (CLI) | payer MEDICAID, SELFPAY ==
[2023-10-03 14:44] LABS: Blood Urea Nitrogen 23 mg/dl (9-20); Calcium 9.3 mg/dl (8.4-10.2); Carbon Dioxide 22 mmol/L (22.0-30.0); Chloride 100 mmol/L (98-107); Estimated Glomerular Filt Rate 69 ml/min (>60); GFR (African American) 83 ML/MIN (>60); Glucose 149 mg/dl (74-100); Sodium 137 mmol/L (136-145)
== END 2023-10-03 23:59 | disposition home or self-care (01) ==
LOC: LAB 14:10
PROVIDERS: PCP Family Medicine; Visit Provider Nurse Practitioner Family
DX: Z85.038 Personal history of other malignant neoplasm of large intestine (principal); R94.31 Abnormal electrocardiogram [ECG] [EKG]; I45.10 Unspecified right bundle-branch block; E11.42 Type 2 diabetes mellitus with diabetic polyneuropathy; Z79.4 Long term (current) use of insulin; I10 Essential (primary) hypertension
CPT/HCPCS: 36415; 80048

== ENCOUNTER 2024-05-01 10:43 | Outpatient (CLI) | payer MEDICAID, SELFPAY ==
[2024-05-01 10:56] LABS: Basophils # 0.1 K/mm3 (0-0.2); Basophils % 0.6 % (0.1-2.0); Eosinophils # 0.5 K/mm3 (0.0-0.4); Eosinophils % 3.7 % (0.1-12.0); Hematocrit 39.9 % (42.0-52.0); Hemoglobin 13.9 g/dL (14.1-18.0); Lymphocytes # 2.6 K/mm3 (0.7-4.5); Lymphocytes % 18.4 % (10-50); Mean Corpuscular HGB Conc 34.8 g/dL (31.8-35.4); Mean Corpuscular Hemoglobin 33.5 pg (27.0-31.2); Mean Corpuscular Volume 96.1 fl (80-94); Monocytes # 1.7 K/mm3 (0.1-1.0); Monocytes % 11.8 % (1.7-9.3); Neutrophils # 9.2 K/mm3 (1.8-7.8); Neutrophils % 65.1 % (37.0-80.0); Platelet Count 291 K/mm3 (142-424); Red Blood Count 4.15 M/mm3 (4.60-6.20); Red Cell Distribution Width 14.6 % (11.5-17.5); White Blood Count 14.2 K/mm3 (4.8-10.8)
[2024-05-01 11:16] LABS: Chloride 98 mmol/L (98-107); Potassium 3.5 mmoL/L (3.5-5.1); Sodium 130 mmol/L (136-145)
[2024-05-01 11:18] LABS: Blood Urea Nitrogen 29 mg/dl (9-20); Estimated Glomerular Filt Rate 56 ml/min (>60); GFR (African American) 68 ML/MIN (>60)
[2024-05-01 11:19] LABS: Alanine Aminotransferase 30 U/L (12-78); Albumin/Globulin Ratio 1.3 (1.1-1.8); Alkaline Phosphatase 77 U/L (38-126); Anion Gap 15.5 mEq/L (5-15); Aspartate Amino Transferase 56 U/L (17-59); Bilirubin,Total 0.8 mg/dl (0.2-1.3); Calcium 9.4 mg/dl (8.4-10.2); Carbon Dioxide 20 mmol/L (22.0-30.0); Glucose 244 mg/dl (74-100)
[2024-05-02 10:11] LABS: CEA 4.8 ng/mL (0.0-4.7)
== END 2024-05-01 23:59 | disposition home or self-care (01) ==
LOC: LAB 10:44
PROVIDERS: PCP Family Medicine; Visit Provider Internal Medicine Medical Oncology
DX: Z85.038 Personal history of other malignant neoplasm of large intestine (principal)
CPT/HCPCS: 36415; 80053; 82378; 85025

== ENCOUNTER 2024-05-06 10:28 | Outpatient (CLI) | payer MEDICAID, SELFPAY ==
--- NOTE | 2024-05-06 10:29 | CT_ITS ---
FINAL REPORT TECHNIQUE: Routine axial images were obtained from the lung apices to below the diaphragm following IV contrast administration. Individualized dose reduction techniques using automated exposure control or adjustment of the mA and/or kV according to the patient size were employed. CLINICAL HISTORY: colon cancer COMPARISON: 01/15/2023 FINDINGS: The mediastinal vasculature is adequately opacified. Ascending aorta measures up to 4.2 cm in diameter. There is no evidence of dissection. No pleural or pericardial effusion is seen. There are several noncalcified pulmonary nodules. A right perihilar nodule measuring 6 mm in greatest dimension is slightly larger than previous and is well seen on image 45 of series 4. There are few small nodules in the left lower lobe measuring up to 4 mm which appear essentially stable. An example is seen on image 58 of series 4. IMPRESSION: Slight progression of pulmonary nodules probably due to progressive pulmonary metastases. Reviewed, Interpreted and Dictated by Jj Nguyen MD Transcribed by Yin Figueroa Authenticated and [facility]
--- NOTE | 2024-05-06 10:29 | CT_ITS ---
FINAL REPORT TECHNIQUE: After the administration of intravenous contrast, axial images were obtained through the abdomen and pelvis by computed tomography. The study was performed with techniques to keep radiation dose as low as reasonably achievable, (ALARA). Individual dose reduction techniques using automated exposure control or adjustment of mA and/or kV according to the patient's size were employed. CLINICAL HISTORY: colon cancer COMPARISON: 05/31/2023 FINDINGS: Abdomen: There is diffuse fatty infiltration of the liver. Several hepatic masses are noted. Mass in the superior right lobe on image 17 of series 5 measuring 2.8 cm was not clearly seen on the previous exam. Mass in the mid right lobe of the liver measuring 2.3 cm in greatest dimension has increased in size from prior, well seen on image 33 of series 5. The liver is enlarged measuring up to 21 cm. The spleen is unremarkable. There is a stable 3.5 cm mass in the tail of the pancreas which appears solid and is well seen on image 45. The adrenal glands and kidneys are unremarkable. There is stable portal adenopathy with individual nodes measuring up to 2.1 cm. There is postoperative change in the midline anterior abdominal wall with associated fat containing ventral hernia. The previously noted stranding in this region has resolved but the hernia has increased in size. Pelvis: There is no pelvic free fluid. The urinary bladder is decompressed. The previously noted enlarged inguinal nodes are not seen on this exam. IMPRESSION: New and increased lesions in the liver concerning for hepatic metastases. Stable pancreatic tail mass. Stable portal adenopathy. Increase in size of fat containing ventral hernia. Reviewed, Interpreted and Dictated by Jj Nguyen MD Transcribed by Yin Figueroa Authenticated and . [facility]
[2024-05-06] MEDS: SODIUM CHLORIDE 0.9% 10ML SYR (RAD ONLY) 10 ML IV (10:44)
[2024-05-06] MEDS: IOPAMIDOL-370 (76%);100ML BOTTLE 75 ML IV (10:45)
== END 2024-05-06 23:59 | disposition home or self-care (01) ==
LOC: RAD 10:29
PROVIDERS: PCP Internal Medicine Medical Oncology; Visit Provider Internal Medicine Medical Oncology
DX: C18.2 Malignant neoplasm of ascending colon (principal)
CPT/HCPCS: 71260; 74177; Q9967

== ENCOUNTER 2024-06-18 10:03 | Outpatient (CLI) | payer MEDICAID, SELFPAY ==
--- NOTE | 2024-06-18 10:56 | PC.NURSE ---
1015- guardant 360 drawn per MD order via butterfly needle in left hand. needle removed and coban applied. pt tolerated well.
== END 2024-06-18 10:25 | disposition home or self-care (01) ==
LOC: INF 10:05
PROVIDERS: PCP Family Medicine; Visit Provider Internal Medicine Medical Oncology
DX: E11.42 Type 2 diabetes mellitus with diabetic polyneuropathy (principal)
CPT/HCPCS: 36415

== ENCOUNTER 2024-08-05 09:55 | Outpatient (CLI) | payer MEDICAID, SELFPAY ==
[2024-08-05 10:22] LABS: Basophils % 0.3 % (0.1-2.0); Eosinophils # 0.6 Kmm3 (0.0-0.4); Eosinophils % 5.5 % (0.1-12.0); Hematocrit 37.3 % (42.0-52.0); Hemoglobin 13.1 g/dL (14.1-18.0); Lymphocytes % 20.2 % (10-50); Mean Corpuscular HGB Conc 35.1 g/dL (31.8-35.4); Mean Corpuscular Hemoglobin 34.9 pg (27.0-31.2); Mean Corpuscular Volume 99.5 fl (80-94); Monocytes % 9.9 % (1.7-9.3); Neutrophils # 6.4 K/mm3 (1.8-7.8); Neutrophils % 63.7 % (37.0-80.0); Nucleated Red Blood Cells # 0 10^3/uL; Nucleated Red Blood Cells % 0 %; Platelet Count 248 K/mm3 (142-424); Red Blood Count 3.75 M/mm3 (4.60-6.20); Red Cell Distribution Width-SD 51.3 fL
[2024-08-05 10:48] LABS: Albumin Level 3.7 g/dl (3.5-5.0); Chloride 106 mmol/L (98-107); Potassium 3.9 mmoL/L (3.5-5.1); Sodium 136 mmol/L (136-145)
[2024-08-05 10:51] LABS: Alanine Aminotransferase 22 U/L (12-78); Albumin/Globulin Ratio 1.2 (1.1-1.8); Alkaline Phosphatase 63 U/L (38-126); Anion Gap 13.9 mEq/L (5-15); Aspartate Amino Transferase 43 U/L (17-59); Bilirubin,Total 0.9 mg/dl (0.2-1.3); Blood Urea Nitrogen 18 mg/dl (9-20); Carbon Dioxide 20 mmol/L (22.0-30.0); Estimated Glomerular Filt Rate 76 ml/min (>60); GFR (African American) 92 ML/MIN (>60); Globulin 3.2 g/dL (1.3-3.2); Total Protein,Serum 6.9 g/dl (6.3-8.2)
[2024-08-05 10:52] LABS: Calcium 8.9 mg/dl (8.4-10.2); Glucose 231 mg/dl (74-100)
[2024-08-06 04:08] LABS: CEA 8.3 ng/mL (0.0-4.7)
== END 2024-08-05 23:59 | disposition home or self-care (01) ==
LOC: LAB 09:55
PROVIDERS: PCP Family Medicine; Visit Provider Internal Medicine Medical Oncology
DX: C18.2 Malignant neoplasm of ascending colon (principal)
CPT/HCPCS: 36415; 80053; 82378; 85025

== ENCOUNTER 2024-08-19 09:57 | Outpatient (CLI) | payer MEDICAID, SELFPAY ==
[2024-08-19] VITALS (7 sets, daily range): BP systolic 109–144; BP diastolic 57–74; PULSE 65–70; RESP 17–18; TEMP 37; O2SAT 97
[2024-08-19 10:23] LABS: Basophils % 0.4 % (0.1-2.0); Eosinophils # 0.6 Kmm3 (0.0-0.4); Eosinophils % 5.8 % (0.1-12.0); Hemoglobin 13.1 g/dL (14.1-18.0); Immature Granulocytes # 0.06 10^3uL; Immature Granulocytes % 0.6 %; Lymphocytes # 2.2 K/mm3 (0.7-4.5); Lymphocytes % 22.3 % (10-50); Mean Corpuscular HGB Conc 35.4 g/dL (31.8-35.4); Mean Corpuscular Hemoglobin 35.4 pg (27.0-31.2); Monocytes # 1.1 K/mm3 (0.1-1.0); Monocytes % 10.9 % (1.7-9.3); Neutrophils # 5.9 K/mm3 (1.8-7.8); Nucleated Red Blood Cells # 0 10^3/uL; Nucleated Red Blood Cells % 0 %; Platelet Count 229 K/mm3 (142-424); Red Cell Distribution Width 14.6 % (11.5-17.5); Red Cell Distribution Width-SD 53.3 fL; White Blood Count 9.9 K/mm3 (4.8-10.8)
[2024-08-19 10:29] LABS: Alanine Aminotransferase 22 U/L (12-78); Albumin Level 3.9 g/dl (3.5-5.0); Albumin/Globulin Ratio 1.3 (1.1-1.8); Alkaline Phosphatase 73 U/L (38-126); Anion Gap 8.9 mEq/L (5-15); Aspartate Amino Transferase 51 U/L (17-59); Bilirubin,Total 0.7 mg/dl (0.2-1.3); Blood Urea Nitrogen 17 mg/dl (9-20); Calcium 9.2 mg/dl (8.4-10.2); Carbon Dioxide 27 mmol/L (22.0-30.0); Chloride 104 mmol/L (98-107); Estimated Glomerular Filt Rate 86 ml/min (>60); GFR (African American) 104 ML/MIN (>60); Globulin 3.1 g/dL (1.3-3.2); Glucose 193 mg/dl (74-100); Potassium 3.9 mmoL/L (3.5-5.1); Sodium 136 mmol/L (136-145)
[2024-08-19] MEDS: POTASSIUM CHLORIDE 20MEQ TAB 40 MEQ PO (10:53)
[2024-08-19] MEDS: DEXAMETHASONE 4MG TABLET 12 MG PO (10:53)
[2024-08-19] MEDS: SODIUM CHLORIDE 0.9% 50ML BAG 50 ML IV (10:53)
[2024-08-19] MEDS: ONDANSETRON 4MG ODT 16 MG SL (10:54)
[2024-08-19] MEDS: WATER IV (11:18)
[2024-08-19] MEDS: DEXTROSE 5% IV (11:18)
[2024-08-19] MEDS: IRINOTECAN HCL IV (11:18)
== END 2024-08-19 13:10 | disposition home or self-care (01) ==
LOC: INF 09:59
PROVIDERS: PCP Family Medicine; Visit Provider Internal Medicine Medical Oncology
DX: C18.2 Malignant neoplasm of ascending colon (principal)
CPT/HCPCS: 80053; 85025; 96413; 96415; J7060; J8540; J9206; Q0162

== ENCOUNTER 2024-08-26 09:26 | Outpatient (CLI) | payer MEDICAID, SELFPAY ==
[2024-08-26 09:40] VITALS: BMI 36.8
[2024-08-26 09:55] LABS: Basophils % 0.3 % (0.1-2.0); Eosinophils # 0.7 Kmm3 (0.0-0.4); Eosinophils % 6.6 % (0.1-12.0); Hematocrit 37.2 % (42.0-52.0); Hemoglobin 13.1 g/dL (14.1-18.0); Lymphocytes # 1.4 K/mm3 (0.7-4.5); Mean Corpuscular HGB Conc 35.2 g/dL (31.8-35.4); Mean Corpuscular Hemoglobin 34.7 pg (27.0-31.2); Mean Corpuscular Volume 98.7 fl (80-94); Mean Platelet Volume 8.6 fl (7.4-10.4); Monocytes # 0.9 K/mm3 (0.1-1.0); Neutrophils % 69.1 % (37.0-80.0); Nucleated Red Blood Cells # 0 10^3/uL; Nucleated Red Blood Cells % 0 %; Platelet Count 254 K/mm3 (142-424); Red Blood Count 3.77 M/mm3 (4.60-6.20); White Blood Count 10.2 K/mm3 (4.8-10.8)
[2024-08-26 10:12] LABS: Albumin Level 4.1 g/dl (3.5-5.0); Albumin/Globulin Ratio 1.3 (1.1-1.8); Aspartate Amino Transferase 52 U/L (17-59); Bilirubin,Total 0.7 mg/dl (0.2-1.3); Carbon Dioxide 20 mmol/L (22.0-30.0); Chloride 100 mmol/L (98-107); Creatinine Clearance Estimated 111 mL/min (50-200); Estimated Glomerular Filt Rate 62 ml/min (>60); GFR (African American) 75 ML/MIN (>60); Globulin 3.2 g/dL (1.3-3.2); Total Protein,Serum 7.3 g/dl (6.3-8.2)
[2024-08-26 10:20] LABS: Alanine Aminotransferase 24 U/L (12-78); Alkaline Phosphatase 78 U/L (38-126); Anion Gap 13.7 mEq/L (5-15); Blood Urea Nitrogen 35 mg/dl (9-20); Calcium 8.9 mg/dl (8.4-10.2); Glucose 235 mg/dl (74-100); Potassium 4.7 mmoL/L (3.5-5.1); Sodium 129 mmol/L (136-145)
[2024-08-26 10:48] VITALS: BP 119/58; PULSE 67; RESP 20; TEMP 36.5; O2SAT 99
[2024-08-26] MEDS: ONDANSETRON 4MG ODT 16 MG SL (10:48)
[2024-08-26] MEDS: DEXAMETHASONE 4MG TABLET 12 MG PO (10:48)
[2024-08-26] MEDS: SODIUM CHLORIDE 0.9% 50ML BAG 50 ML IV (10:56)
[2024-08-26] MEDS: SODIUM CHLORIDE 0.9% 10ML FLUSH SYRINGE 10 ML IV (10:57)
[2024-08-26 11:15] VITALS: BP 136/75; PULSE 78; RESP 20; O2SAT 99
[2024-08-26] MEDS: DEXTROSE 5% IV (11:15)
[2024-08-26] MEDS: IRINOTECAN HCL IV (11:15)
[2024-08-26] MEDS: WATER IV (11:15)
[2024-08-26 11:45] VITALS: BP 128/68; PULSE 70; RESP 20; O2SAT 98
[2024-08-26 12:15] VITALS: BP 125/73; PULSE 77; RESP 18; O2SAT 99
[2024-08-26 12:45] VITALS: BP 130/69; PULSE 76; RESP 18; O2SAT 98
[2024-08-26 13:00] VITALS: BP 140/80; PULSE 82; RESP 20; O2SAT 99
== END 2024-08-26 13:10 | disposition home or self-care (01) ==
LOC: INF 09:29
PROVIDERS: PCP Family Medicine; Visit Provider Internal Medicine Medical Oncology
DX: C18.2 Malignant neoplasm of ascending colon (principal)
CPT/HCPCS: 80053; 85025; 96413; 96415; J1642; J7060; J8540; J9206; Q0162

== ENCOUNTER 2024-08-27 13:16 | Inpatient (IN) | payer MEDICAID, SELFPAY ==
[2024-08-27 11:55] VITALS: BMI 36.8
[2024-08-27 12:29] LABS: Basophils % 0.1 % (0.1-2.0); Hematocrit 36.7 % (42.0-52.0); Hemoglobin 13.4 g/dL (14.1-18.0); Immature Granulocytes # 0.14 10^3uL; Lymphocytes # 1.1 K/mm3 (0.7-4.5); Lymphocytes % 8.3 % (10-50); Mean Corpuscular HGB Conc 36.5 g/dL (31.8-35.4); Mean Corpuscular Hemoglobin 35.1 pg (27.0-31.2); Mean Corpuscular Volume 96.1 fl (80-94); Mean Platelet Volume 8.7 fl (7.4-10.4); Monocytes # 1.2 K/mm3 (0.1-1.0); Monocytes % 8.8 % (1.7-9.3); Neutrophils # 11.1 K/mm3 (1.8-7.8); Neutrophils % 81.8 % (37.0-80.0); Nucleated Red Blood Cells # 0 10^3/uL; Nucleated Red Blood Cells % 0 %; Platelet Count 287 K/mm3 (142-424); Red Blood Count 3.82 M/mm3 (4.60-6.20); Red Cell Distribution Width 13.8 % (11.5-17.5); Red Cell Distribution Width-SD 48.8 fL; White Blood Count 13.6 K/mm3 (4.8-10.8)
[2024-08-27 12:30] VITALS: BP 129/65; PULSE 65; RESP 18; O2SAT 98
[2024-08-27] MEDS: 0.9 % SODIUM CHLORIDE 1000ML 1,000 ML 999 ML IV (12:30)
[2024-08-27] MEDS: ONDANSETRON 4MG/2ML VIAL 8 MG (12:36)
[2024-08-27 12:38] LABS: Albumin Level 3.9 g/dl (3.5-5.0); Chloride 95 mmol/L (98-107); Potassium 4.8 mmoL/L (3.5-5.1); Sodium 121 mmol/L (136-145)
[2024-08-27 12:40] LABS: Blood Urea Nitrogen 40 mg/dl (9-20); Creatinine Clearance Estimated 111 mL/min (50-200); Estimated Glomerular Filt Rate 62 ml/min (>60); GFR (African American) 75 ML/MIN (>60)
[2024-08-27 12:41] LABS: Alanine Aminotransferase 27 U/L (12-78); Albumin/Globulin Ratio 1.3 (1.1-1.8); Alkaline Phosphatase 78 U/L (38-126); Anion Gap 14.8 mEq/L (5-15); Aspartate Amino Transferase 39 U/L (17-59); Bilirubin,Total 1.1 mg/dl (0.2-1.3); Calcium 8.5 mg/dl (8.4-10.2); Carbon Dioxide 16 mmol/L (22.0-30.0); Glucose 329 mg/dl (74-100); Total Protein,Serum 6.9 g/dl (6.3-8.2)
[2024-08-27 12:42] LABS: Magnesium 1.7 mg/dl (1.6-2.3)
[2024-08-27 13:30] VITALS: BP 118/62; PULSE 67
[2024-08-27 14:20] VITALS: BP 160/80; PULSE 68; RESP 20; TEMP 36.6; O2SAT 100; BMI 35.9
[2024-08-27] MEDS: 0.9 % SODIUM CHLORIDE 1000ML 1,000 ML 75 ML IV (14:44)
[2024-08-27 15:25] LABS: Hemoglobin A1C 7.7 % (4.0-6.0)
[2024-08-27 16:00] VITALS: BP 136/76; PULSE 72; RESP 16; TEMP 36.4; O2SAT 97
[2024-08-27 16:33] LABS: Anion Gap 13.5 mEq/L (5-15); Blood Urea Nitrogen 38 mg/dl (9-20); Calcium 8.3 mg/dl (8.4-10.2); Carbon Dioxide 18 mmol/L (22.0-30.0); Chloride 95 mmol/L (98-107); Creatinine Clearance Estimated 118 mL/min (50-200); Estimated Glomerular Filt Rate 68 ml/min (>60); GFR (African American) 83 ML/MIN (>60); Glucose 307 mg/dl (74-100); Potassium 4.5 mmoL/L (3.5-5.1); Sodium 122 mmol/L (136-145)
[2024-08-27 16:34] LABS: POC Glucose,Bedside 331 (70-110)
[2024-08-27] MEDS: humaLOG 100 UNITS/ML 10ML VIAL (SSI) SUBCUT ×2 (16:36→20:46)
--- NOTE | 2024-08-27 17:46 | EXP.HP ---
History of Present Illness *Admission Date: 08/27/24 *Reason for visit:: nausea and vomiting, weakness *History of present illness: 59-year-old male who follows with oncology at [facility] for treatment of his metastatic colon cancer. Recently started new chemotherapy and has developed some nausea and vomiting. Labs identified hyponatremia. Was brought in for infusion but due to his persistent nausea and vomiting, oncology contacted hospital medicine for admission and further management of severe hyponatremia. Come to find out, patient has been taking Capecitabine for over a year but not under the direction of oncology. Concern for side effects from medications. Patient is hemodynamically stable. Does complain of some weakness as well as nausea and vomiting. Denies chest pain, shortness of breath, fever. No blood in vomit or stool. Alert and oriented x 3. Lives at [facility] due to inability to care for self and reportedly fragile diabetes. [facility] Disclaimer: The information contained in this section may have been updated after the patient was seen, as this information can be updated by other users. Medical History (Updated 08/27/24 @ 17:49 by Hal Ramos MD) Acute kidney injury Hypertension History of MRSA infection Amputation of fifth toe of left foot Right bundle branch block Abnormal electrocardiogram [ECG] [EKG] Amputation of toe of left foot Surgical History History of colon resection Family History Coronary artery disease CHF (congestive heart failure) Father Cancer Father Hypertension Sister Social History Smoking Status: Never smoker alcohol intake: never substance use type: denies use current occupational status: other Travel in the last 8 weeks?: None Have you lived/traveled outside US in past 30 days?: No Contact w/someone who lives/traveled outside US past 30 days?: No Exposure to someone with infectious disease in past 14 days?: No Do you have a fever (greater than 100.4 F or 38 C)?: No Have you tested positive for COVID-19?: No Exposed to someone with COVID-19 in past 14 days?: No Do you have a sore throat?: No Do you have a cough?: No Do you have any weakness?: No Are you experiencing any nausea/vomitting?: Yes Do you have any diarrhea?: No Are you experiencing any unusual bleeding?: No Do you have any muscle aches/pain?: No Do you have any abdominal pain?: No Are you experiencing loss of taste or smell?: No Other Medical History Have you received the Flu Vaccine for this season: Yes Have you received the Pneumonia Vaccine: Yes Review of Systems Review of Systems Review of systems (narrative): 14 point review of systems performed, pertinent positives and negatives as per HPI Meds Home Medications and Allergies Home Medications ?Medication ?Instructions ?Recorded ?Confirmed ?Type insulin glargine 100 unit/mL 30 unit SQ HS Diabetes 01/08/22 08/26/24 History subcutaneous solution (Lantus U-100 Insulin) insulin lispro 100 unit/mL 10 unit SQ TID Diabetes 01/08/22 08/26/24 History subcutaneous solution spironolactone 25 mg tablet 25 mg PO BID Edema 11/09/22 08/26/24 History carvedilol 12.5 mg tablet (Coreg) 12.5 mg PO BID High Blood Pressure 11/10/22 08/26/24 History lisinopril 10 2 tab PO DAILY #60 tabs 07/03/23 08/26/24 Rx mg-hydrochlorothiazide 12.5 mg tablet mupirocin 2 % topical ointment 1 applic topical BID infection 7 08/21/23 08/26/24 Rx days #15 grams ferrous sulfate 325 mg (65 mg 325 mg PO DAILY iron supplement 10/03/23 08/26/24 History iron) tablet,delayed release pen needle,diabetic dual safty 30 #100 ea 06/25/24 08/26/24 History gauge x 3/16 acetaminophen 500 mg tablet 500 mg PO Q6HP PRN Pain 08/05/24 08/26/24 History New Prescriptions to Start Prescriptions: Allergies Allergy/AdvReac Type Severity Reaction Status Date / Time No Known Allergies Allergy Verified 08/26/24 10:00 Exam Data for Last 24 hours Vital signs and Labs for Last 24 Hours: Temp Pulse Resp BP Pulse Ox O2 Del Method 97.9 F 68 20 160/80 H 100 Room Air 08/27/24 14:20 08/27/24 14:20 08/27/24 14:20 08/27/24 14:20 08/27/24 14:08/27/24 16:59 Laboratory Results - last 24 hr 08/27/24 12:19: WBC 13.6 H D, RBC 3.82 L, Hgb 13.4 L, Hct 36.7 L, MCV 96.1 H, MCH 35.1 H, MCHC 36.5 H, RDW 13.8, Plt Count 287, MPV 8.7, Neut % (Auto) 81.8 H, Lymph % (Auto) 8.3 L, Nobles % (Auto) 8.8, Eos % (Auto) 0.0 L, Baso % (Auto) 0.1, Neut # (Auto) 11.1 H, Lymph # (Auto) 1.1, Nobles # (Auto) 1.2 H, Eos # (Auto) 0.0, Baso # (Auto) 0.0, Sodium 121 L, Potassium 4.8, Chloride 95 L, Carbon Dioxide 16 L, Anion Gap 14.8, BUN 40 H, Creatinine 1.20, Estimated Creat Clear 111, Estimated GFR 62, Est GFR ( Amer) 75, Glucose 329 H, Hemoglobin A1c 7.7 H, Calcium 8.5, Magnesium 1.7, Total Bilirubin 1.1, AST 39, ALT 27, Alkaline Phosphatase 78, Total Protein 6.9, Albumin 3.9, Globulin 3.0, Albumin/Globulin Ratio 1.3 08/27/24 16:12: Sodium 122 L, Potassium 4.5, Chloride 95 L, Carbon Dioxide 18 L, Anion Gap 13.5, BUN 38 H, Creatinine 1.10, Estimated Creat Clear 118, Estimated GFR 68, Est GFR ( Amer) 83, Glucose 307 H, Calcium 8.3 L 08/27/24 16:26: POC Glucose 331 H* I & O for Last 24 hours: Intake & Output 08/24/24 08/25/24 08/26/24 08/27/24 23:59 23:59 23:59 23:59 Output Total 450 / 450 Balance -450 / -450 Weight 116.845 kg Constitutional Constitutional: mild distress, obese, chronically ill appearing and cooperative *Routine HEENT Exam Head: Present normocephalic Eye: Present EOMI and PERRL ENT: Present mucous membranes moist *Routine Neck Exam Neck: Present supple; Absent lymphadenopathy *Routine Respiratory Exam Respiratory: Present CTA bilaterally; Absent rhonchi, wheezes or crackles *Routine Cardiovascular Exam Cardiovascular: Present RRR *Routine Abdominal Exam Abdominal: Present soft, normoactive bowel sounds, tenderness (Nonfocal, worse in right upper quadrant) and distended; Absent rebound *Routine Rectal Exam Rectal:: deferred *Routine Genitalia Exam Genitalia:: deferred *Routine Extremities Exam Extremities: Absent cyanosis, clubbing or edema *Routine Skin Exam Skin: Present warm; Absent rash *Routine Neurological Exam Neurological: Present alert, oriented X3 and moving all extremities; Absent altered mental status Assessment and Plan *Assessment and plan (1) Hyponatremia: Status: Acute Category: Medical Code(s): E87.1 - Hypo-osmolality and hyponatremia (2) Dehydration: Status: Acute Category: Medical Code(s): E86.0 - Dehydration (3) Acute kidney injury: Status: Acute Category: Medical Code(s): N17.9 - Acute kidney failure, unspecified (4) Hx of malignant neoplasm of colon: Status: Acute Category: Medical Code(s): Z85.038 - Personal history of other malignant neoplasm of large intestine (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: Status: Acute Category: Medical Code(s): C77.2 - Secondary and unspecified malignant neoplasm of intra-abdominal lymph nodes (6) Obesity, Class II, BMI 35-39.9: Status: Acute Category: Medical Code(s): E66.812 - Obesity, class 2 (7) Type 2 diabetes mellitus: Status: Acute Qualifiers: Diabetes mellitus complication detail: with polyneuropathy Diabetes mellitus complication status: with neurologic complications Diabetes mellitus correction insulin use: with correction use Qualified Code(s): E11.42 - Type 2 diabetes mellitus with diabetic polyneuropathy; Z79.4 - intermediate (current) use of insulin Category: Medical Code(s): E11.9 - Type 2 diabetes mellitus without complications (8) Hypertension: Status: Acute Qualifiers: Hypertension type: unspecified Qualified Code(s): I10 - Essential (primary) hypertension Category: Medical Code(s): I10 - Essential (primary) hypertension Plan 59-year-old male with metastatic colon cancer. Presents with nausea vomiting and hyponatremia after initiating new chemotherapy. Discussed case with oncologist, request admission for treatment of symptomatic hyponatremia along with management of his nausea and vomiting. I agreed to admit for further care. Patient hemodynamically stable. Sodium 121 on presentation. Necessitating inpatient care. Problems addressed as follows Hyponatremia Dehydration SERG - Sodium 121, BUN 40, creatinine 1.2. Bicarb 16. Potassium elevated 4.8. Repeat sodium every 8 hours. Correct between 8 and 10 mEq a day. - Received IV fluids in infusion, will administer normal saline at 75 cc an hour. Encourage p.o. intake if tolerated. - Zofran 4 mg every 6 hours as needed for nausea - Hold patient's diuretics. - Repeat CBC, CMP, magnesium ordered for the morning - Leukocytosis of 13.6, likely reactive in the setting of nausea and vomiting. Metastatic colon cancer: Hold chemotherapy at this time. Will discontinue capecitabine from med list. Patient should not be on this medication at this time. Hypertension: -Continue carvedilol 12.5 mg twice daily Diabetes: A1c 7.7. Glucose 329 on presentation. Initiate sliding scale with fingersticks ACHS. Resume glargine 30 units nightly. Monitor for adjustments daily DNR diabetic diet Lovenox 40 mg subcu daily
[2024-08-27 20:00] VITALS: BP 115/57; PULSE 72; RESP 18; TEMP 36.8; O2SAT 98
[2024-08-27] MEDS: CARVEDILOL 12.5MG TABLET 12.5 MG PO (20:46)
[2024-08-27] MEDS: INSULIN GLARGINE 100 UNITS/ML 10ML VIAL 30 UNIT SUBCUT (20:47)
--- NOTE | 2024-08-28 00:07 | PC.NURSE ---
Addendum entered by Samuel Orozco RN 08/28/24 00:37: med rec completed by [facility] medication list. records placed in patient chart Original Note: This RN has attempted to call [facility]x for patient med list. Spoke with Leigh who stated she would fax it over in 5 minutes. Waited 30 minutes and called back and spoke with a different nurse, and asked for med rec to be faxed again. Awaiting fax.
[2024-08-28 00:46] LABS: Chloride 96 mmol/L (98-107); Potassium 4.2 mmoL/L (3.5-5.1); Sodium 124 mmol/L (136-145)
[2024-08-28 00:49] LABS: Blood Urea Nitrogen 37 mg/dl (9-20); Creatinine Clearance Estimated 130 mL/min (50-200); Estimated Glomerular Filt Rate 76 ml/min (>60); GFR (African American) 92 ML/MIN (>60)
[2024-08-28 00:50] LABS: Anion Gap 11.2 mEq/L (5-15); Carbon Dioxide 21 mmol/L (22.0-30.0); Glucose 202 mg/dl (74-100)
[2024-08-28 01:44] LABS: POC Glucose,Bedside 236 (70-110)
[2024-08-28] MEDS: 0.9 % SODIUM CHLORIDE 1000ML 1,000 ML 75 ML IV ×2 (03:04→16:17)
[2024-08-28 04:00] VITALS: BMI 36.1
[2024-08-28] MEDS: humaLOG 100 UNITS/ML 10ML VIAL (SSI) SUBCUT ×4 (06:15→21:10)
[2024-08-28 06:20] LABS: POC Glucose,Bedside 215 (70-110)
--- NOTE | 2024-08-28 06:36 | PC.NURSE ---
patient has rested well tonight. c/o gas this morning around 0630 - sitting up on side of bed to try and relieve it.
[2024-08-28 06:45] LABS: Basophils % 0.2 % (0.1-2.0); Eosinophils % 0.1 % (0.1-12.0); Hematocrit 39.3 % (42.0-52.0); Hemoglobin 13.3 g/dL (14.1-18.0); Immature Granulocytes % 0.7 %; Lymphocytes # 1.2 K/mm3 (0.7-4.5); Lymphocytes % 8.2 % (10-50); Mean Corpuscular HGB Conc 33.8 g/dL (31.8-35.4); Mean Corpuscular Hemoglobin 34.5 pg (27.0-31.2); Mean Corpuscular Volume 102.1 fl (80-94); Mean Platelet Volume 8.5 fl (7.4-10.4); Monocytes # 1.1 K/mm3 (0.1-1.0); Monocytes % 7.3 % (1.7-9.3); Neutrophils # 12.4 K/mm3 (1.8-7.8); Neutrophils % 83.5 % (37.0-80.0); Nucleated Red Blood Cells # 0 10^3/uL; Nucleated Red Blood Cells % 0 %; Platelet Count 275 K/mm3 (142-424); Red Blood Count 3.85 M/mm3 (4.60-6.20); Red Cell Distribution Width 13.8 % (11.5-17.5); Red Cell Distribution Width-SD 52.1 fL; White Blood Count 14.9 K/mm3 (4.8-10.8)
[2024-08-28 07:03] LABS: Alanine Aminotransferase 21 U/L (12-78); Albumin Level 3.5 g/dl (3.5-5.0); Albumin/Globulin Ratio 1.2 (1.1-1.8); Alkaline Phosphatase 85 U/L (38-126); Anion Gap 14.3 mEq/L (5-15); Aspartate Amino Transferase 44 U/L (17-59); Blood Urea Nitrogen 35 mg/dl (9-20); Carbon Dioxide 16 mmol/L (22.0-30.0); Chloride 97 mmol/L (98-107); Creatinine Clearance Estimated 145 mL/min (50-200); Estimated Glomerular Filt Rate 86 ml/min (>60); GFR (African American) 104 ML/MIN (>60); Globulin 2.9 g/dL (1.3-3.2); Glucose 228 mg/dl (74-100); Magnesium 2.2 mg/dl (1.6-2.3); Potassium 4.3 mmoL/L (3.5-5.1); Sodium 123 mmol/L (136-145); Total Protein,Serum 6.4 g/dl (6.3-8.2)
[2024-08-28 08:00] VITALS: BP 142/81; PULSE 71; RESP 19; TEMP 36.6; O2SAT 97
--- NOTE | 2024-08-28 08:12 | SW/DCPLANNER ---
This patient currently resides at [facility] level of care. I will continue to follow up w/ Jackelin at [facility] until patient is medically stable for discharge. Discharge date is unknown at this time.
--- NOTE | 2024-08-28 08:13 | P.CONPHA_ITS ---
Pharmacy Intervention Comments: HOME MEDICATION LIST VERIFIED USING [facility]
--- NOTE | 2024-08-28 08:13 | HMH.PHAINT1 ---
Pharmacy Intervention Comments: HOME MEDICATION LIST VERIFIED USING [facility]
[2024-08-28 08:18] LABS: Chloride 98 mmol/L (98-107); Potassium 4.1 mmoL/L (3.5-5.1); Sodium 124 mmol/L (136-145)
[2024-08-28 08:21] LABS: Anion Gap 11.1 mEq/L (5-15); Blood Urea Nitrogen 35 mg/dl (9-20); Calcium 7.9 mg/dl (8.4-10.2); Carbon Dioxide 19 mmol/L (22.0-30.0); Creatinine Clearance Estimated 130 mL/min (50-200); Estimated Glomerular Filt Rate 76 ml/min (>60); GFR (African American) 92 ML/MIN (>60); Glucose 249 mg/dl (74-100)
[2024-08-28] MEDS: SODIUM BICARBONATE 650MG TABLET 650 MG PO ×3 (10:09→21:10)
[2024-08-28] MEDS: CARVEDILOL 12.5MG TABLET 12.5 MG PO ×2 (10:09→21:10)
[2024-08-28] MEDS: ENOXAPARIN 40MG/0.4ML SYRINGE 40 MG SUBCUT (10:10)
[2024-08-28 11:21] LABS: POC Glucose,Bedside 220 (70-110)
--- NOTE | 2024-08-28 13:45 | EXP.ACUTE.PN ---
Subjective *Date: 08/28/24 *Time: 13:45 Interval history: Denies any chest pain or shortness of breath today. At baseline mentation. Improving nausea and vomiting. Tolerating some of breakfast. Afebrile. No diarrhea today Medical Exam Vital signs and Labs for Last 24 Hours: Vital Signs Temp Pulse Resp BP Pulse Ox O2 Del Method 08/28/24 13:10 Room Air 08/28/24 11:00 Room Air 08/28/24 09:15 Room Air 08/28/24 09:10 Room Air 08/28/24 08:00 97.8 F 71 19 142/81 H 97 Room Air 08/28/24 06:33 Room Air 08/28/24 03:00 Room Air 08/28/24 01:00 Room Air 08/27/24 23:00 Room Air 08/27/24 21:00 Room Air 08/27/24 20:00 98.2 F 72 18 115/57 L 98 Room Air 08/27/24 20:00 Room Air 08/27/24 18:40 Room Air 08/27/24 16:59 Room Air 08/27/24 16:00 97.5 F L 72 16 136/76 97 Room Air 08/27/24 15:00 Room Air 08/27/24 14:20 97.9 F 68 20 160/80 H 100 Room Air Intake and Output 08/27/24 08/28/24 08/28/24 23:59 07:59 15:59 Intake Total 360 / 480 1304 / 1664 360 / 1664 Output Total 400 / 400 0 / 400 Balance 360 / 30 904 / 1264 360 / 1264 Intake: Intake, Oral Amount 360 / 480 120 / 480 360 / 480 Intake, Total IV Amount 1184 / 1184 0.9 % Sodium Chloride 1000ML 1, 1184 / 1184 000 ml @ 75 mls/hr IV .[id number] [facility] Rx#:[id number] Output: Output, Urine Amount 400 / 400 0 / 400 Other: Number of Unmeasured Voids 1 0 Number of Bowel Movements 1 Weight 117.072 kg Patient Weight 08/28/24 23:59 Weight 117.072 kg Laboratory Results - last 24 hr 08/27/24 12:19: Hemoglobin A1c 7.7 H 08/27/24 16:12: Sodium 122 L, Potassium 4.5, Chloride 95 L, Carbon Dioxide 18 L, Anion Gap 13.5, BUN 38 H, Creatinine 1.10, Estimated Creat Clear 118, Estimated GFR 68, Est GFR ( Amer) 83, Glucose 307 H, Calcium 8.3 L 08/27/24 16:26: POC Glucose 331 H* 08/27/24 20:14: POC Glucose 236 H 08/28/24 00:25: Sodium 124 L, Potassium 4.2, Chloride 96 L, Carbon Dioxide 21 L, Anion Gap 11.2, BUN 37 H, Creatinine 1.00, Estimated Creat Clear 130, Estimated GFR 76, Est GFR ( Amer) 92, Glucose 202 H D, Calcium 8.0 L 08/28/24 06:13: POC Glucose 215 H 08/28/24 06:26: WBC 14.9 H, RBC 3.85 L, Hgb 13.3 L, Hct 39.3 L, MCV 102.1 H, MCH 34.5 H, MCHC 33.8, RDW 13.8, Plt Count 275, MPV 8.5, Neut % (Auto) 83.5 H, Lymph % (Auto) 8.2 L, [place] % (Auto) 7.3, Eos % (Auto) 0.1, Baso % (Auto) 0.2, Neut # (Auto) 12.4 H, Lymph # (Auto) 1.2, [place] # (Auto) 1.1 H, Eos # (Auto) 0.0, Baso # (Auto) 0.0, Sodium 123 L, Potassium 4.3, Chloride 97 L, Carbon Dioxide 16 L, Anion Gap 14.3, BUN 35 H, Creatinine 0.90, Estimated Creat Clear 145, Estimated GFR 86, Est GFR ( Amer) 104, Glucose 228 H, Calcium 8.0 L, Magnesium 2.2 D, Total Bilirubin 1.0, AST 44, ALT 21, Alkaline Phosphatase 85, Total Protein 6.4, Albumin 3.5 D, Globulin 2.9, Albumin/Globulin Ratio 1.2 08/28/24 08:05: Sodium 124 L, Potassium 4.1, Chloride 98, Carbon Dioxide 19 L, Anion Gap 11.1, BUN 35 H, Creatinine 1.00, Estimated Creat Clear 130, Estimated GFR 76, Est GFR ( Amer) 92, Glucose 249 H, Calcium 7.9 L 08/28/24 11:14: POC Glucose 220 H I & O for Labs for Last 24 Hours: Intake & Output 08/25/24 08/26/24 08/27/24 08/28/24 23:59 23:59 23:59 23:59 Intake Total 360 / 480 1664 / 1664 Output Total 450 / 450 400 / 400 Balance -90 / 30 1264 / 1264 Weight 116.845 kg 117.072 kg Constitutional: Present no acute distress, obese and chronically ill appearing Head: Present atraumatic and normocephalic ENT: Present normal exam Respiratory: Present normal respiratory effort; Absent rhonchi, wheezes or crackles Cardiac: Present Reg Rate and Rhythm GI: Present soft, distention and normal bowel sounds; Absent tenderness Extremities: Present full ROM Comment:: Chronic changes to bilateral lower extremities, well-healed scar from previous left foot infection Skin: Present intact; Absent erythema Neuro: Present Grossly Intact, alert, awake, oriented x 3 and moves all extremities Assessment and Plan *Assessment and plan (1) Hyponatremia: Status: Acute Category: Medical Code(s): E87.1 - Hypo-osmolality and hyponatremia (2) Dehydration: Status: Acute Category: Medical Code(s): E86.0 - Dehydration (3) Acute kidney injury: Status: Acute Category: Medical Code(s): N17.9 - Acute kidney failure, unspecified (4) Hx of malignant neoplasm of colon: Status: Acute Category: Medical Code(s): Z85.038 - Personal history of other malignant neoplasm of large intestine (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: Status: Acute Category: Medical Code(s): C77.2 - Secondary and unspecified malignant neoplasm of intra-abdominal lymph nodes (6) Obesity, Class II, BMI 35-39.9: Status: Acute Category: Medical Code(s): E66.812 - Obesity, class 2 (7) Type 2 diabetes mellitus: Status: Acute Qualifiers: Diabetes mellitus filler leaf cutter long insulin use: with filler leaf cutter long use Diabetes mellitus complication status: with neurologic complications Diabetes mellitus complication detail: with polyneuropathy Qualified Code(s): E11.42 - Type 2 diabetes mellitus with diabetic polyneuropathy; Z79.4 - custodial (current) use of insulin Category: Medical Code(s): E11.9 - Type 2 diabetes mellitus without complications (8) Hypertension: Status: Acute Qualifiers: Hypertension type: unspecified Qualified Code(s): I10 - Essential (primary) hypertension Category: Medical Code(s): I10 - Essential (primary) hypertension Plan 59-year-old male with metastatic colon cancer. Presents with nausea vomiting and hyponatremia after initiating new chemotherapy. Discussed case with oncologist, request admission for treatment of symptomatic hyponatremia along with management of his nausea and vomiting. I agreed to admit for further care. Remains hemodynamically stable. Sodium slightly better at 123. Slow to correct. Continues to require inpatient management. Problems addressed as follows: Hyponatremia Dehydration SERG - Sodium 123, BUN 35, creatinine 0.9, potassium 4.3 with magnesium 2.2. Repeat BMP ordered every 8 hours to monitor sodium level. - correct between 8 and 10 mEq a day. - Continue NS at 75 cc an hour. Encouraging p.o. intake - Zofran 4 mg every 6 hours as needed for nausea - Hold patient's diuretics. - Repeat CBC, CMP, magnesium ordered for the morning - Leukocytosis of 14.9, likely reactive in the setting of nausea and vomiting. Metastatic colon cancer: Hold chemotherapy at this time. Will discontinue capecitabine from med list. Patient should not be on this medication at this time. Hypertension: -Continue carvedilol 12.5 mg twice daily Diabetes: A1c 7.7. Glucose 228 this morning. Increase Lantus to 40 units nightly. Continue sliding scale insulin fingersticks ACHS. DNR diabetic diet Lovenox 40 mg subcu daily
[2024-08-28 14:57] VITALS: BMI 36.1
--- NOTE | 2024-08-28 15:54 | PC.NURSE ---
VS stable and patient remained on room air. Lung sounds clear. No concerns voiced by patient.
[2024-08-28 16:00] VITALS: BP 140/78; PULSE 68; RESP 20; TEMP 36.9; O2SAT 98
[2024-08-28 16:29] LABS: Chloride 96 mmol/L (98-107); Sodium 122 mmol/L (136-145)
[2024-08-28 16:32] LABS: Blood Urea Nitrogen 32 mg/dl (9-20); Calcium 7.7 mg/dl (8.4-10.2); Carbon Dioxide 20 mmol/L (22.0-30.0); Creatinine Clearance Estimated 130 mL/min (50-200); Estimated Glomerular Filt Rate 76 ml/min (>60); GFR (African American) 92 ML/MIN (>60); Glucose 220 mg/dl (74-100)
[2024-08-28 18:15] LABS: POC Glucose,Bedside 206 (70-110)
[2024-08-28 20:00] LABS: POC Glucose,Bedside 183 (70-110)
[2024-08-28 20:02] VITALS: BP 134/80; PULSE 73; RESP 16; TEMP 36.5; O2SAT 97
[2024-08-28] MEDS: INSULIN GLARGINE 100 UNITS/ML 3ML FLEXPEN 40 UNIT SUBCUT (21:11)
[2024-08-28] MEDS: ONDANSETRON 4MG/2ML VIAL 4 MG IV (21:16)
--- NOTE | 2024-08-28 21:16 | PC.NURSE ---
patient c/o abd pain/nausea. gave zofran. urine sent to lab. patient will not physically voice complaints. very quiet and has to be asked.
[2024-08-29] VITALS: BP 144/73; PULSE 69; PULSE 70; RESP 16; TEMP 36.6; O2SAT 94
[2024-08-29 00:45] LABS: Chloride 98 mmol/L (98-107); Potassium 3.7 mmoL/L (3.5-5.1); Sodium 123 mmol/L (136-145)
[2024-08-29 00:48] LABS: Anion Gap 6.7 mEq/L (5-15); Blood Urea Nitrogen 28 mg/dl (9-20); Calcium 7.6 mg/dl (8.4-10.2); Carbon Dioxide 22 mmol/L (22.0-30.0); Creatinine Clearance Estimated 130 mL/min (50-200); Estimated Glomerular Filt Rate 76 ml/min (>60); GFR (African American) 92 ML/MIN (>60); Glucose 200 mg/dl (74-100)
[2024-08-29 04:00] VITALS: BMI 36.3
[2024-08-29 04:02] VITALS: BP 152/81; PULSE 67; RESP 17; TEMP 37; O2SAT 96
[2024-08-29] MEDS: 0.9 % SODIUM CHLORIDE 1000ML 1,000 ML 75 ML IV (06:17)
[2024-08-29] MEDS: humaLOG 100 UNITS/ML 10ML VIAL (SSI) SUBCUT ×4 (06:20→20:55)
[2024-08-29 06:25] LABS: POC Glucose,Bedside 219 (70-110)
[2024-08-29 07:02] LABS: Basophils % 0.1 % (0.1-2.0); Eosinophils # 0.1 Kmm3 (0.0-0.4); Eosinophils % 0.4 % (0.1-12.0); Hemoglobin 12.7 g/dL (14.1-18.0); Immature Granulocytes # 0.06 10^3uL; Immature Granulocytes % 0.4 %; Lymphocytes # 1.2 K/mm3 (0.7-4.5); Lymphocytes % 8.7 % (10-50); Mean Corpuscular HGB Conc 36.3 g/dL (31.8-35.4); Mean Corpuscular Volume 96.4 fl (80-94); Mean Platelet Volume 8.6 fl (7.4-10.4); Monocytes # 0.8 K/mm3 (0.1-1.0); Monocytes % 5.6 % (1.7-9.3); Neutrophils # 11.9 K/mm3 (1.8-7.8); Neutrophils % 84.8 % (37.0-80.0); Nucleated Red Blood Cells # 0 10^3/uL; Nucleated Red Blood Cells % 0 %; Platelet Count 240 K/mm3 (142-424); Red Blood Count 3.63 M/mm3 (4.60-6.20); Red Cell Distribution Width 13.6 % (11.5-17.5); Red Cell Distribution Width-SD 48.9 fL
[2024-08-29 07:15] LABS: Alanine Aminotransferase 15 U/L (12-78); Albumin Level 2.9 g/dl (3.5-5.0); Alkaline Phosphatase 63 U/L (38-126); Anion Gap 8.8 mEq/L (5-15); Aspartate Amino Transferase 26 U/L (17-59); Bilirubin,Total 0.8 mg/dl (0.2-1.3); Blood Urea Nitrogen 29 mg/dl (9-20); Calcium 7.7 mg/dl (8.4-10.2); Carbon Dioxide 20 mmol/L (22.0-30.0); Chloride 98 mmol/L (98-107); Creatinine Clearance Estimated 145 mL/min (50-200); Estimated Glomerular Filt Rate 86 ml/min (>60); GFR (African American) 104 ML/MIN (>60); Globulin 2.8 g/dL (1.3-3.2); Glucose 194 mg/dl (74-100); Potassium 3.8 mmoL/L (3.5-5.1); Sodium 123 mmol/L (136-145); Total Protein,Serum 5.7 g/dl (6.3-8.2)
[2024-08-29 08:00] VITALS: BP 156/87; PULSE 71; RESP 18; TEMP 36.9; O2SAT 96
[2024-08-29] MEDS: FUROSEMIDE 40MG/4ML VIAL 40 MG IV (09:12)
[2024-08-29] MEDS: CARVEDILOL 12.5MG TABLET 12.5 MG PO (09:12)
[2024-08-29] MEDS: ENOXAPARIN 40MG/0.4ML SYRINGE 40 MG SUBCUT (09:12)
[2024-08-29] MEDS: SODIUM BICARBONATE 650MG TABLET 650 MG PO ×3 (09:12→20:55)
[2024-08-29] MEDS: SODIUM CHLORIDE 3 % 500 ML 30 ML IV (09:12)
[2024-08-29] MEDS: LISINOPRIL 20MG TABLET 20 MG PO (09:12)
[2024-08-29 10:40] LABS: POC Glucose,Bedside 229 (70-110)
--- NOTE | 2024-08-29 13:34 | P.PN_ITS ---
Subjective *Date: 08/29/24 *Time: 13:34 Interval history: Denies any chest pain or shortness of breath today. At baseline mentation. No further nausea or vomiting. Tolerating some of breakfast. Afebrile. No diarrhea today Medical Exam Vital signs and Labs for Last 24 Hours: Vital Signs Temp Pulse Resp BP Pulse Ox O2 Del Method 08/29/24 13:25 Room Air 08/29/24 11:55 Room Air 08/29/24 09:50 Room Air 08/29/24 09:00 Room Air 08/29/24 08:00 Room Air 08/29/24 08:00 98.4 F 71 18 156/87 H 96 08/29/24 06:48 Room Air 08/29/24 05:00 Room Air 08/29/24 04:02 98.6 F 67 17 152/81 H 96 Room Air 08/29/24 03:00 Room Air 08/29/24 01:00 Room Air 08/29/24 00:00 97.9 F 69 16 144/73 H 94 L Room Air 08/28/24 23:00 Room Air 08/28/24 21:00 Room Air 08/28/24 20:02 97.7 F 73 16 134/80 97 Room Air 08/28/24 20:00 Room Air 08/28/24 18:35 Room Air 08/28/24 17:05 Room Air 08/28/24 16:00 98.4 F 68 20 140/78 98 08/28/24 15:05 Room Air Intake and Output 08/28/24 08/29/24 08/29/24 23:59 07:59 15:59 Intake Total 991 / 2895 240 / 720 480 / 720 Output Total 100 / 500 600 / 600 Balance 891 / 2395 240 / 120 -120 / 120 Intake: Intake, Oral Amount 270 / 990 240 / 720 480 / 720 Intake, Total IV Amount 721 / 1905 0.9 % Sodium Chloride 1000ML 1, 721 / 1905 000 ml @ 75 mls/hr IV .[id number] [facility] Rx#:[id number] Output: Output, Urine Amount 100 / 500 600 / 600 Other: Number of Unmeasured Voids 0 0 Number of Bowel Movements 1 1 1 Weight 117.571 kg Patient Weight 08/29/24 23:59 Weight 117.571 kg Laboratory Results - last 24 hr 05/16/25 16:10: POC Glucose 206 H 08/28/24 16:11: Sodium 122 L, Potassium 4.0, Chloride 96 L, Carbon Dioxide 20 L, Anion Gap 10.0, BUN 32 H, Creatinine 1.00, Estimated Creat Clear 130, Estimated GFR 76, Est GFR ( Amer) 92, Glucose 220 H, Calcium 7.7 L 08/28/24 19:47: POC Glucose 183 H 08/28/24 21:00: Urine Sodium 49.0 08/29/24 00:27: Sodium 123 L, Potassium 3.7, Chloride 98, Carbon Dioxide 22, Anion Gap 6.7, BUN 28 H, Creatinine 1.00, Estimated Creat Clear 130, Estimated GFR 76, Est GFR ( Amer) 92, Glucose 200 H, Calcium 7.6 L 08/29/24 06:18: POC Glucose 219 H 08/29/24 06:30: WBC 14.0 H, RBC 3.63 L, Hgb 12.7 L, Hct 35.0 L, MCV 96.4 H, MCH 35.0 H, MCHC 36.3 H, RDW 13.6, Plt Count 240, MPV 8.6, Neut % (Auto) 84.8 H, Lymph % (Auto) 8.7 L, [place] % (Auto) 5.6, Eos % (Auto) 0.4, Baso % (Auto) 0.1, Neut # (Auto) 11.9 H, Lymph # (Auto) 1.2, [place] # (Auto) 0.8, Eos # (Auto) 0.1, Baso # (Auto) 0.0, Sodium 123 L, Potassium 3.8, Chloride 98, Carbon Dioxide 20 L , Anion Gap 8.8, BUN 29 H, Creatinine 0.90, Estimated Creat Clear 145, Estimated GFR 86, Est GFR ( Amer) 104, Glucose 194 H, Calcium 7.7 L, Magnesium 2.0, Total Bilirubin 0.8, AST 26 D, ALT 15 D, Alkaline Phosphatase 63, Total Protein 5.7 L, Albumin 2.9 L D, Globulin 2.8, Albumin/Globulin Ratio 1.0 L 08/29/24 10:26: POC Glucose 229 H I & O for Labs for Last 24 Hours: Intake & Output 08/26/24 08/27/24 08/28/24 08/29/24 23:59 23:59 23:59 23:59 Intake Total 360 / 480 2655 / 2895 720 / 720 Output Total 450 / 450 500 / 500 600 / 600 Balance -90 / 30 2155 / 2395 120 / 120 Weight 116.845 kg 117 kg 117.571 kg Constitutional: Present no acute distress, obese and chronically ill appearing Head: Present atraumatic and normocephalic ENT: Present normal exam Respiratory: Present normal respiratory effort; Absent rhonchi, wheezes or crackles Cardiac: Present Reg Rate and Rhythm GI: Present soft, distention and normal bowel sounds; Absent tenderness Extremities: Present full ROM Comment:: Chronic changes to bilateral lower extremities, well-healed scar from previous left foot infection Skin: Present intact; Absent erythema Neuro: Present Grossly Intact, alert, awake, oriented x 3 and moves all extremities Assessment and Plan *Assessment and plan (1) Hyponatremia: Status: Acute Category: Medical Code(s): E87.1 - Hypo-osmolality and hyponatremia (2) Dehydration: Status: Acute Category: Medical Code(s): E86.0 - Dehydration (3) Acute kidney injury: Status: Acute Category: Medical Code(s): N17.9 - Acute kidney failure, unspecified (4) Hx of malignant neoplasm of colon: Status: Acute Category: Medical Code(s): Z85.038 - Personal history of other malignant neoplasm of large intestine (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: Status: Acute Category: Medical Code(s): C77.2 - Secondary and unspecified malignant neoplasm of intra-abdominal lymph nodes (6) Obesity, Class II, BMI 35-39.9: Status: Acute Category: Medical Code(s): E66.812 - Obesity, class 2 (7) Type 2 diabetes mellitus: Status: Acute Qualifiers: Diabetes mellitus shelter insulin use: with exterminator helper termite use Diabetes mellitus complication status: with neurologic complications Diabetes mellitus complication detail: with polyneuropathy Qualified Code(s): E11.42 - Type 2 diabetes mellitus with diabetic polyneuropathy; Z79.4 - buttermaker (current) use of insulin Category: Medical Code(s): E11.9 - Type 2 diabetes mellitus without complications (8) Hypertension: Status: Acute Qualifiers: Hypertension type: unspecified Qualified Code(s): I10 - Essential (primary) hypertension Category: Medical Code(s): I10 - Essential (primary) hypertension Plan 59-year-old male with metastatic colon cancer. Presents with nausea vomiting and hyponatremia after initiating new chemotherapy. Discussed case with oncologist, request admission for treatment of symptomatic hyponatremia along with management of his nausea and vomiting. I agreed to admit for further care. Remains hemodynamically stable. Sodium with no significant change, stable at 123, chloride 98. Patient management. Fluid restrict today along with hypertonic saline IV. Problems addressed as follows: Hyponatremia Dehydration SERG - Sodium 123, BUN 29, chloride 98, creatinine 0.9. Urine sodium 49, inappropriately elevated in the setting of hyponatremia. Will fluid restrict 1500 cc today. Initiate hypertonic saline at 30 cc/h - Monitor sodium every 8 hours. Repeat level ordered for this afternoon and this evening. - correct between 8 and 10 mEq a day. - Zofran 4 mg every 6 hours as needed for nausea - Administer 1 dose of loop diuretic today to promote free water loss. - Repeat CBC, CMP, magnesium ordered for the morning - Leukocytosis of 14, likely reactive in the setting of nausea and vomiting were secondary to his cancer - Sodium bicarbonate 650 mg 3 times a day orally. Bicarb improving on labs 20 this morning Metastatic colon cancer: Hold chemotherapy at this time. Will discontinue capecitabine from med list. Patient should not be on this medication at this time. Hypertension: Continue carvedilol 12.5 mg twice daily; Lasix 40 mg IV once. Resume lisinopril 20 mg daily. Diabetes: A1c 7.7. Glucose 228 this morning. Increase Lantus to 40 units nightly. Continue sliding scale insulin fingersticks ACHS. DNR diabetic diet Lovenox 40 mg subcu daily
[2024-08-29] MEDS: ONDANSETRON 4MG/2ML VIAL 4 MG IV (15:49)
[2024-08-29 15:53] LABS: POC Glucose,Bedside 226 (70-110)
[2024-08-29 16:00] VITALS: BP 116/67; PULSE 69; RESP 19; TEMP 36.6; O2SAT 97
[2024-08-29 16:34] LABS: Chloride 98 mmol/L (98-107); Potassium 3.5 mmoL/L (3.5-5.1); Sodium 125 mmol/L (136-145)
[2024-08-29 16:37] LABS: Anion Gap 8.5 mEq/L (5-15); Blood Urea Nitrogen 29 mg/dl (9-20); Calcium 7.4 mg/dl (8.4-10.2); Carbon Dioxide 22 mmol/L (22.0-30.0); Creatinine Clearance Estimated 131 mL/min (50-200); Estimated Glomerular Filt Rate 76 ml/min (>60); GFR (African American) 92 ML/MIN (>60); Glucose 247 mg/dl (74-100)
--- NOTE | 2024-08-29 17:06 | PC.NURSE ---
Aox 4, using urinal, up ad diaz with cane, form [place], diabetic diet 1,500 fluid rest, fsbg achs, on RA, DNR/DNI, Left chest port with 3% sodium @ 30ml/ hr.
[2024-08-29 20:00] VITALS: BP 105/52; PULSE 75; RESP 18; TEMP 37.1; O2SAT 98
[2024-08-29] MEDS: INSULIN GLARGINE 100 UNITS/ML 3ML FLEXPEN 40 UNIT SUBCUT (20:54)
[2024-08-29 21:29] LABS: POC Glucose,Bedside 186 (70-110)
[2024-08-30 00:42] LABS: Chloride 101 mmol/L (98-107); Potassium 3.4 mmoL/L (3.5-5.1); Sodium 127 mmol/L (136-145)
[2024-08-30 00:45] LABS: Anion Gap 6.4 mEq/L (5-15); Blood Urea Nitrogen 27 mg/dl (9-20); Calcium 7.4 mg/dl (8.4-10.2); Carbon Dioxide 23 mmol/L (22.0-30.0); Creatinine Clearance Estimated 145 mL/min (50-200); Estimated Glomerular Filt Rate 86 ml/min (>60); GFR (African American) 104 ML/MIN (>60); Glucose 136 mg/dl (74-100)
[2024-08-30] MEDS: SODIUM CHLORIDE 0.9% 10ML FLUSH SYRINGE 10 ML IV (01:26)
[2024-08-30 04:00] VITALS: PULSE 70; BMI 36.1
--- NOTE | 2024-08-30 05:09 | PC.NURSE ---
Pt. is alert and orientated x 4. Pt. is on room air. Pt. had hyponatremia and had 3% saline infusing in left chest port. Pt. tolerating 3% saline well. #% saline was discontinued after bag infused. Pt. denies nausea or vomiting. Pt denies pain. Pt. up to bathroom with cane and standby assist. Pt. on diabetic diet. ACHS blood sugars followed. Pt. on Fluid restriction for the hyponatremia. Left chest port flushes easily and blood was returned. Pt. sleeping modst of this shift. Personal items and call [place] in reach.
[2024-08-30 05:48] LABS: POC Glucose,Bedside 129 (70-110)
--- NOTE | 2024-08-30 06:58 | EXP.DC.SUM ---
General Admission date:: 08/27/24 Discharge date: 08/30/24 HPI HPI HPI: 59-year-old male who follows with oncology at [facility] for treatment of his metastatic colon cancer. Recently started new chemotherapy and has developed some nausea and vomiting. Labs identified hyponatremia. Was brought in for infusion but due to his persistent nausea and vomiting, oncology contacted hospital medicine for admission and further management of severe hyponatremia. Come to find out, patient has been taking Capecitabine for over a year but not under the direction of oncology. Concern for side effects from medications. Patient is hemodynamically stable. Does complain of some weakness as well as nausea and vomiting. Denies chest pain, shortness of breath, fever. No blood in vomit or stool. Alert and oriented x 3. Lives at shelter due to inability to care for self and reportedly fragile diabetes. Hospital Course Hospital Course Hospital Course: 59-year-old male with metastatic colon cancer. Presents with nausea vomiting and hyponatremia after initiating new chemotherapy. Discussed case with oncologist, request admission for treatment of symptomatic hyponatremia along with management of his nausea and vomiting. I agreed to admit for further care. Nausea and vomiting improved. Sodium slowly improving. Improved to 127 by day of discharge. Chloride 99. Stable at this time return back to nursing facility. Unfortunately his had a slight bump in his white count with no clear source of infection. Will treat with empiric course of antibiotics. Patient's vitals normal. Stable to discharge back to long-term care facility for further management. Defer further management for cancer treatment to oncology. Adjustments made to medications as below. Problems addressed as follows: Hyponatremia Dehydration SERG - Presented with sodium of 121, mild symptoms with nausea, vomiting, weakness. Gradually improved to 127 by day of discharge. Responded to fluid restriction after identifying component of SIADH due to urine sodium of 49. Recommend fluid restriction less than 2 L a day. Continue sodium bicarbonate twice daily due to component of metabolic acidosis and hyponatremia. Needs repeat BMP in 3 to 4 days to monitor improvement in sodium level. No further nausea or vomiting for over 24 hours. Tolerating p.o. intake. Adjustments made to his diuretics due to potential exacerbating factor with his hyponatremia. Stable at this point to discharge back to nursing facility with further management as an outpatient. Kidney function back to normal with BUN 25, creatinine 0.9. Metastatic colon cancer: Hold chemotherapy at this time. Has unfortunately been on capecitabine for the past at least 6 months if not year. This medication should be stopped. Not recommended by oncology at this time. Please do not continue giving capecitabine after returning back to shelter Patient has not leukocytosis. He has had no fever. No signs of sepsis. No tachycardia. No focal signs of infection on skin. Unsure if this is related to his cancer or beginning of an infection. Was initiated empirically on Levaquin to complete 5 days total. Denies any dysuria. Clearly unexplainable at this time. Warrants empiric course however. Hypertension: Continue carvedilol 12.5 mg twice daily; resumed lisinopril 20 mg daily. Continue spironolactone 25 mg daily. Discontinue HCTZ. Diabetes: A1c 7.7. Glucose 175 on morning of discharge. Lantus has been increased to 40 units nightly. Continue mealtime lispro 10 units 3 times a day. Repeat A1c in 3 months. Goal A1c less than 7 Total time spent on discharge 32 minutes in counseling, documentation, chart review, and direct care with patient. Exam Data for Last 24 hours Vital signs and Labs for Last 24 Hours: Temp Pulse Resp BP Pulse Ox O2 Del Method 98.8 F 70 18 105/52 L 98 Room Air 08/29/24 20:00 08/30/24 04:00 08/29/24 20:00 08/29/24 20:00 08/29/24 20:00 08/30/24 06:44 Laboratory Results - last 24 hr 08/29/24 06:30: WBC 14.0 H, RBC 3.63 L, Hgb 12.7 L, Hct 35.0 L, MCV 96.4 H, MCH 35.0 H, MCHC 36.3 H, RDW 13.6, Plt Count 240, MPV 8.6, Neut % (Auto) 84.8 H, Lymph % (Auto) 8.7 L, [place] % (Auto) 5.6, Eos % (Auto) 0.4, Baso % (Auto) 0.1, Neut # (Auto) 11.9 H, Lymph # (Auto) 1.2, [place] # (Auto) 0.8, Eos # (Auto) 0.1, Baso # (Auto) 0.0, Sodium 123 L, Potassium 3.8, Chloride 98, Carbon Dioxide 20 L, Anion Gap 8.8, BUN 29 H, Creatinine 0.90, Estimated Creat Clear 145, Estimated GFR 86, Est GFR ( Amer) 104, Glucose 194 H, Calcium 7.7 L, Magnesium 2.0, Total Bilirubin 0.8, AST 26 D, ALT 15 D, Alkaline Phosphatase 63, Total Protein 5.7 L, Albumin 2.9 L D, Globulin 2.8, Albumin/Globulin Ratio 1.0 L 08/29/24 10:26: POC Glucose 229 H 08/29/24 15:44: POC Glucose 226 H 08/29/24 16:00: Sodium 125 L, Potassium 3.5, Chloride 98, Carbon Dioxide 22, Anion Gap 8.5, BUN 29 H, Creatinine 1.00, Estimated Creat Clear 131, Estimated GFR 76, Est GFR ( Amer) 92, Glucose 247 H D, Calcium 7.4 L 08/29/24 20:41: POC Glucose 186 H 08/30/24 00:20: Sodium 127 L, Potassium 3.4 L, Chloride 101, Carbon Dioxide 23, Anion Gap 6.4, BUN 27 H, Creatinine 0.90, Estimated Creat Clear 145, Estimated GFR 86, Est GFR ( Amer) 104, Glucose 136 H D, Calcium 7.4 L 08/30/24 05:38: POC Glucose 129 H I & O for Last 24 hours: Intake & Output 08/27/24 08/28/24 08/29/24 08/30/24 23:59 23:59 23:59 23:59 Intake Total 360 / 480 2655 / 2895 760 / 1260 500 / 500 Output Total 450 / 450 500 / 500 1150 / 1150 0 / 0 Balance -90 / 30 2155 / 2395 -390 / 110 500 / 500 Weight 116.845 kg 117 kg 117.571 kg 117.072 kg Constitutional Constitutional: no acute distress, obese, chronically ill appearing and cooperative *Routine HEENT Exam Head: Present normocephalic Eye: Present EOMI and PERRL ENT: Present mucous membranes moist *Routine Neck Exam Neck: Present supple; Absent lymphadenopathy *Routine Respiratory Exam Respiratory: Present CTA bilaterally; Absent rhonchi, wheezes or crackles *Routine Cardiovascular Exam Cardiovascular: Present RRR *Routine Abdominal Exam Abdominal: Present soft and normoactive bowel sounds; Absent tenderness *Routine Rectal Exam Patient deferred: visual exam *Routine Exam Patient deferred: penile exam *Routine Extremities Exam Extremities: Absent cyanosis, clubbing or edema *Routine Skin Exam Skin: Present warm; Absent rash *Routine Neurological Exam Neurological: Present alert, oriented X3 and moving all extremities; Absent altered mental status Results Data Completed and Pending Labs on day of discharge: Labs from last 24 hours 08/30/24 08/30/24 08/29/24 05:38 00:20 20:41 WBC RBC Hgb Hct MCV MCH MCHC RDW Plt Count MPV Neut % (Auto) Lymph % (Auto) [place] % (Auto) Eos % (Auto) Baso % (Auto) Neut # (Auto) Lymph # (Auto) [place] # (Auto) Eos # (Auto) Baso # (Auto) Sodium 127 L Potassium 3.4 L Chloride 101 Carbon Dioxide 23 Anion Gap 6.4 BUN 27 H Creatinine 0.90 Estimated Creat Clear 145 Estimated GFR 86 Est GFR ( Amer) 104 Glucose 136 H D POC Glucose 129 H 186 H Calcium 7.4 L Magnesium Total Bilirubin AST ALT Alkaline Phosphatase Total Protein Albumin Globulin Albumin/Globulin Ratio 08/29/24 08/29/24 08/29/24 16:00 15:44 10:26 WBC RBC Hgb Hct MCV MCH MCHC RDW Plt Count MPV Neut % (Auto) Lymph % (Auto) [place] % (Auto) Eos % (Auto) Baso % (Auto) Neut # (Auto) Lymph # (Auto) [place] # (Auto) Eos # (Auto) Baso # (Auto) Sodium 125 L Potassium 3.5 Chloride 98 Carbon Dioxide 22 Anion Gap 8.5 BUN 29 H Creatinine 1.00 Estimated Creat Clear 131 Estimated GFR 76 Est GFR ( Amer) 92 Glucose 247 H D POC Glucose 226 H 229 H Calcium 7.4 L Magnesium Total Bilirubin AST ALT Alkaline Phosphatase Total Protein Albumin Globulin Albumin/Globulin Ratio 08/29/24 06:30 WBC 14.0 H RBC 3.63 L Hgb 12.7 L Hct 35.0 L MCV 96.4 H MCH 35.0 H MCHC 36.3 H RDW 13.6 Plt Count 240 MPV 8.6 Neut % (Auto) 84.8 H Lymph % (Auto) 8.7 L [place] % (Auto) 5.6 Eos % (Auto) 0.4 Baso % (Auto) 0.1 Neut # (Auto) 11.9 H Lymph # (Auto) 1.2 [place] # (Auto) 0.8 Eos # (Auto) 0.1 Baso # (Auto) 0.0 Sodium 123 L Potassium 3.8 Chloride 98 Carbon Dioxide 20 L Anion Gap 8.8 BUN 29 H Creatinine 0.90 Estimated Creat Clear 145 Estimated GFR 86 Est GFR ( Amer) 104 Glucose 194 H POC Glucose Calcium 7.7 L Magnesium 2.0 Total Bilirubin 0.8 AST 26 D ALT 15 D Alkaline Phosphatase 63 Total Protein 5.7 L Albumin 2.9 L D Globulin 2.8 Albumin/Globulin Ratio 1.0 L DS: Diagnosis Discharge Diagnosis (1) Hyponatremia: Status: Acute Code(s): E87.1 - Hypo-osmolality and hyponatremia (2) Dehydration: Status: Acute Code(s): E86.0 - Dehydration (3) Acute kidney injury: Status: Acute Code(s): N17.9 - Acute kidney failure, unspecified (4) Hx of malignant neoplasm of colon: Status: Acute Code(s): Z85.038 - Personal history of other malignant neoplasm of large intestine (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: Status: Acute Code(s): C77.2 - Secondary and unspecified malignant neoplasm of intra-abdominal lymph nodes (6) Obesity, Class II, BMI 35-39.9: Status: Acute Code(s): E66.812 - Obesity, class 2 (7) Type 2 diabetes mellitus: Status: Acute Code(s): E11.9 - Type 2 diabetes mellitus without complications Qualifiers: Diabetes mellitus complication detail: with polyneuropathy Diabetes mellitus complication status: with neurologic complications Diabetes mellitus manager terminal insulin use: with longterm use Qualified Code(s): E11.42 - Type 2 diabetes mellitus with diabetic polyneuropathy; Z79.4 - snf (current) use of insulin (8) Hypertension: Status: Acute Code(s): I10 - Essential (primary) hypertension Qualifiers: Hypertension type: unspecified Qualified Code(s): I10 - Essential (primary) hypertension Meds Home Medications and Allergies Home Medications ?Medication ?Instructions ?Recorded ?Confirmed ?Type insulin lispro 100 unit/mL 10 unit SQ TID Diabetes 01/08/22 08/28/24 History subcutaneous solution spironolactone 25 mg tablet 25 mg PO DAILY 11/09/22 08/28/24 History carvedilol 12.5 mg tablet (Coreg) 12.5 mg PO BID 11/10/22 08/28/24 History ferrous sulfate 325 mg (65 mg 325 mg PO DAILY 10/03/23 08/28/24 History iron) tablet,delayed release pen needle,diabetic dual safty 30 #100 ea 06/25/24 08/28/24 History gauge x 3/16 acetaminophen 500 mg tablet 500 mg PO Q6HP PRN Pain 08/05/24 08/28/24 History loperamide 2 mg tablet 2 mg PO NEEDED PRN Diarrhea 08/28/24 08/28/24 History (Anti-Diarrheal (loperamide)) ondansetron HCl 8 mg tablet 8 mg PO BID TH AND Sat08/28/24 08/28/24 History prochlorperazine maleate 10 mg 10 mg PO Q6HP PRN Nausea 08/28/24 08/28/24 History tablet quercetin 500 mg capsule 1,000 mg PO DAILY 08/28/24 08/28/24 History insulin glargine 100 unit/mL 40 unit (0.4 mL) SQ HS 30 days #0 08/30/24 08/28/24 Rx subcutaneous solution (Lantus mL U-100 Insulin) levofloxacin 750 mg tablet 750 mg PO DAILY #4 tabs 08/30/24 Rx lisinopril 20 mg tablet 20 mg PO DAILY 30 days #30 tabs 08/30/24 Rx sodium bicarbonate 650 mg tablet 650 mg PO BID 30 days #60 tabs 08/30/24 Rx New Prescriptions to Start Prescriptions: Hal Yuen lisinopril Hal Ramos sodium bicarbonate Hal Ramos Allergies Allergy/AdvReac Type Severity Reaction Status Date / Time No Known Allergies Allergy Verified 08/26/24 10:00 Discharge Plan Disposition Patient Disposition: er Intermediate Care Fac Condition: Fair Discharge Order Discharge Orders: Discharge Order (Routine); Ordered 08/30/24 Ordered By: Hal Ramos Follow up Plan Prescriptions/Medication Reconciliation: New lisinopril 20 mg Tablet 20 mg PO DAILY 30 Days Qty: 30 0RF sodium bicarbonate 650 mg Tablet 650 mg PO BID 30 Days Qty: 60 0RF levofloxacin 750 mg tablet 750 mg PO DAILY Qty: 4 0RF Continued ferrous sulfate 325 mg (65 mg iron) tablet,delayed release (DR/EC) 325 mg PO DAILY (DME) pen needle,diabetic dual safty 30 gauge x 3/16 needle See Rx Instructions .ROUTE .MEDSUPPLY Qty: 100 Rx Instructions: As directed insulin lispro 100 unit/mL solution 10 unit SQ TID acetaminophen 500 mg tablet 500 mg PO Q6HP PRN (Reason: Pain) spironolactone 25 mg Tablet 25 mg PO DAILY carvedilol [Coreg] 12.5 mg tablet 12.5 mg PO BID ondansetron HCl 8 mg tablet 8 mg PO BID Rx Instructions: give 1 tablet po BID every and saturday for nausea loperamide [Anti-Diarrheal (loperamide)] 2 mg tablet 2 mg PO NEEDED MDD 16mg PRN (Reason: Diarrhea) prochlorperazine maleate 10 mg tablet 10 mg PO Q6HP PRN (Reason: Nausea) quercetin 500 mg Capsule 1,000 mg PO DAILY Changed insulin glargine [Lantus U-100 Insulin] 100 unit/mL solution 40 unit SQ HS 30 Days Qty: 0 0RF Discontinued lisinopril-hydrochlorothiazide 10-12.5 mg tablet 2 tab PO DAILY Qty: 60 5RF capecitabine [Xeloda] 500 mg Tablet 1,500 mg PO BID Rx Instructions: give 3 tablets PO BID a day 14 days on adn 7 days off for chemotherapy related to malignant neoplasm of ascending colon. Problem Reconciliation Problems Reviewed?: Yes Patient Discharge Instructions ACTIVITY: Continue current activity DIET: continue same diet Patient Instructions: DI for Hyponatremia Print Language: Kazakh Providers Primary Care Provider: Alex Mckee Admit Provider: Hal Ramos Attending Provider: Hal Ramos
[2024-08-30 08:00] VITALS: BP 120/70; PULSE 76; RESP 24; TEMP 36.8; O2SAT 98
[2024-08-30 08:28] LABS: Basophils % 0.2 % (0.1-2.0); Eosinophils # 0.5 Kmm3 (0.0-0.4); Eosinophils % 2.7 % (0.1-12.0); Hematocrit 36.7 % (42.0-52.0); Hemoglobin 13.1 g/dL (14.1-18.0); Immature Granulocytes # 0.11 10^3uL; Immature Granulocytes % 0.7 %; Lymphocytes # 1.8 K/mm3 (0.7-4.5); Lymphocytes % 10.7 % (10-50); Mean Corpuscular HGB Conc 35.7 g/dL (31.8-35.4); Mean Corpuscular Hemoglobin 35.1 pg (27.0-31.2); Mean Corpuscular Volume 98.4 fl (80-94); Mean Platelet Volume 8.8 fl (7.4-10.4); Monocytes # 0.8 K/mm3 (0.1-1.0); Monocytes % 4.8 % (1.7-9.3); Neutrophils # 13.7 K/mm3 (1.8-7.8); Neutrophils % 80.9 % (37.0-80.0); Nucleated Red Blood Cells # 0 10^3/uL; Nucleated Red Blood Cells % 0 %; Platelet Count 259 K/mm3 (142-424); Red Blood Count 3.73 M/mm3 (4.60-6.20); Red Cell Distribution Width-SD 50.8 fL; White Blood Count 16.9 K/mm3 (4.8-10.8)
[2024-08-30] MEDS: SODIUM BICARBONATE 650MG TABLET 650 MG PO ×2 (08:32→12:34)
[2024-08-30] MEDS: ENOXAPARIN 40MG/0.4ML SYRINGE 40 MG SUBCUT (08:32)
[2024-08-30] MEDS: CARVEDILOL 12.5MG TABLET 12.5 MG PO (08:32)
[2024-08-30] MEDS: LISINOPRIL 20MG TABLET 20 MG PO (08:32)
[2024-08-30 08:38] LABS: Alanine Aminotransferase 14 U/L (12-78); Albumin Level 3.1 g/dl (3.5-5.0); Albumin/Globulin Ratio 1.1 (1.1-1.8); Alkaline Phosphatase 76 U/L (38-126); Anion Gap 9.5 mEq/L (5-15); Aspartate Amino Transferase 30 U/L (17-59); Bilirubin,Total 0.7 mg/dl (0.2-1.3); Blood Urea Nitrogen 25 mg/dl (9-20); Calcium 7.7 mg/dl (8.4-10.2); Carbon Dioxide 22 mmol/L (22.0-30.0); Chloride 99 mmol/L (98-107); Creatinine Clearance Estimated 145 mL/min (50-200); Estimated Glomerular Filt Rate 86 ml/min (>60); GFR (African American) 104 ML/MIN (>60); Globulin 2.7 g/dL (1.3-3.2); Glucose 175 mg/dl (74-100); Potassium 3.5 mmoL/L (3.5-5.1); Sodium 127 mmol/L (136-145); Total Protein,Serum 5.8 g/dl (6.3-8.2)
[2024-08-30 08:39] LABS: Magnesium 1.8 mg/dl (1.6-2.3)
[2024-08-30 11:20] LABS: POC Glucose,Bedside 192 (70-110)
[2024-08-30] MEDS: LEVOFLOXACIN/D5W 750 MG/150 ML 750 MG/150 ML PIGGYBACK 100 MG IV (11:23)
[2024-08-30] MEDS: humaLOG 100 UNITS/ML 10ML VIAL (SSI) SUBCUT (11:23)
--- NOTE | 2024-08-30 12:52 | PC.NURSE ---
Family called several times sister Swati about getting a ride to the patient's facility. No answer.
--- NOTE | 2024-08-30 13:48 | PC.NURSE ---
needle removed from chest port.
--- NOTE | 2024-08-30 14:51 | PC.WOUNDNOTE ---
report called to [facility].
== END 2024-08-30 14:44 | DRG 644 ==
LOC: 2ND 13:17
PROVIDERS: Internal Medicine Medical Oncology; Admitting Provider Internal Medicine Adolescent Medicine; PCP Family Medicine; Visit Provider Internal Medicine Adolescent Medicine
DX: E22.2 Syndrome of inappropriate secretion of antidiuretic hormone (principal); C18.2 Malignant neoplasm of ascending colon; C77.2 Secondary and unspecified malignant neoplasm of intra-abdominal lymph nodes; N17.9 Acute kidney failure, unspecified; E87.20 Acidosis, unspecified; E86.0 Dehydration; E66.9 Obesity, unspecified; Z68.35 Body mass index [BMI] 35.0-35.9, adult; Z74.1 Need for assistance with personal care; Z22.322 Carrier or suspected carrier of Methicillin resistant Staphylococcus aureus; Z89.422 Acquired absence of other left toe(s); I45.10 Unspecified right bundle-branch block; Z82.49 Family history of ischemic heart disease and other diseases of the circulatory system; Z80.9 Family history of malignant neoplasm, unspecified; Z79.4 Long term (current) use of insulin; Z79.899 Other long term (current) drug therapy; Z79.60 Long term (current) use of unspecified immunomodulators and immunosuppressants; D72.829 Elevated white blood cell count, unspecified; Z91.A48 Caregiver's other noncompliance with patient's medication regimen for other reason; R11.2 Nausea with vomiting, unspecified; Z66 Do not resuscitate; Z99.89 Dependence on other enabling machines and devices; E11.9 Type 2 diabetes mellitus without complications; R53.1 Weakness; I10 Essential (primary) hypertension
CPT/HCPCS: 36415; 80048; 80053; 82962; 83036; 83735; 84540; 85025; 96360; J1642; J1650; J1938; J1956; J2405; J7030

== ENCOUNTER 2024-09-03 09:05 | Outpatient (CLI) | payer MEDICAID, SELFPAY ==
--- NOTE | 2024-09-03 09:10 | PC.NURSE ---
0910-pt here for labs via venipuncture stick in right ac with butterfly needle;pt to md appt for follow up
[2024-09-03 09:21] LABS: Basophils # 0.1 K/mm3 (0-0.2); Basophils % 0.5 % (0.1-2.0); Eosinophils # 0.3 Kmm3 (0.0-0.4); Eosinophils % 2.3 % (0.1-12.0); Hematocrit 38.9 % (42.0-52.0); Hemoglobin 13.7 g/dL (14.1-18.0); Immature Granulocytes # 0.15 10^3uL; Immature Granulocytes % 1.2 %; Lymphocytes % 15.6 % (10-50); Mean Corpuscular HGB Conc 35.2 g/dL (31.8-35.4); Mean Corpuscular Hemoglobin 34.1 pg (27.0-31.2); Mean Corpuscular Volume 96.8 fl (80-94); Mean Platelet Volume 8.3 fl (7.4-10.4); Monocytes # 1.3 K/mm3 (0.1-1.0); Monocytes % 10.6 % (1.7-9.3); Neutrophils # 8.7 K/mm3 (1.8-7.8); Neutrophils % 69.8 % (37.0-80.0); Nucleated Red Blood Cells # 0 10^3/uL; Nucleated Red Blood Cells % 0 %; Platelet Count 314 K/mm3 (142-424); Red Blood Count 4.02 M/mm3 (4.60-6.20); Red Cell Distribution Width 14.2 % (11.5-17.5); Red Cell Distribution Width-SD 50.4 fL; White Blood Count 12.5 K/mm3 (4.8-10.8)
[2024-09-03 09:35] LABS: Alanine Aminotransferase 30 U/L (12-78); Albumin Level 3.8 g/dl (3.5-5.0); Albumin/Globulin Ratio 1.4 (1.1-1.8); Alkaline Phosphatase 71 U/L (38-126); Anion Gap 13.9 mEq/L (5-15); Aspartate Amino Transferase 53 U/L (17-59); Bilirubin,Total 0.5 mg/dl (0.2-1.3); Blood Urea Nitrogen 19 mg/dl (9-20); Calcium 8.8 mg/dl (8.4-10.2); Carbon Dioxide 18 mmol/L (22.0-30.0); Chloride 100 mmol/L (98-107); Estimated Glomerular Filt Rate 56 ml/min (>60); GFR (African American) 68 ML/MIN (>60); Globulin 2.7 g/dL (1.3-3.2); Glucose 201 mg/dl (74-100); Sodium 129 mmol/L (136-145); Total Protein,Serum 6.5 g/dl (6.3-8.2)
[2024-09-03 09:51] LABS: Potassium 2.9 mmoL/L (3.5-5.1)
[2024-09-03] MEDS: SODIUM CHLORIDE 0.9% IV (10:37)
[2024-09-03] MEDS: POTASSIUM CHLORIDE IV (10:37)
[2024-09-03 10:38] LABS: Magnesium 1.8 mg/dl (1.6-2.3)
[2024-09-03 10:40] VITALS: BP 134/68; PULSE 98; RESP 19; O2SAT 96
[2024-09-03 12:50] VITALS: BP 135/69; PULSE 102; RESP 19; O2SAT 96
== END 2024-09-03 12:50 | disposition home or self-care (01) ==
LOC: LAB 10:18 → INF 10:28
PROVIDERS: PCP Family Medicine; Visit Provider Internal Medicine Medical Oncology
DX: C18.2 Malignant neoplasm of ascending colon (principal)
CPT/HCPCS: 36415; 80053; 83735; 85025; 96360; 96361; J1642; J3480; J7030

== ENCOUNTER 2024-09-09 09:12 | Outpatient (CLI) | payer MEDICAID, SELFPAY ==
[2024-09-09] VITALS (9 sets, daily range): BP systolic 122–140; BP diastolic 59–76; PULSE 73–83; RESP 18–20; TEMP 36.6; O2SAT 97–98; BMI 35.5
[2024-09-09] MEDS: CATHFLO 2MG VIAL 2 MG (09:30)
[2024-09-09 09:44] LABS: Basophils # 0.1 K/mm3 (0-0.2); Basophils % 0.7 % (0.1-2.0); Eosinophils # 0.6 Kmm3 (0.0-0.4); Eosinophils % 6.3 % (0.1-12.0); Hematocrit 33.8 % (42.0-52.0); Hemoglobin 12.2 g/dL (14.1-18.0); Immature Granulocytes # 0.07 10^3uL; Immature Granulocytes % 0.8 %; Lymphocytes # 1.9 K/mm3 (0.7-4.5); Lymphocytes % 20.7 % (10-50); Mean Corpuscular HGB Conc 36.1 g/dL (31.8-35.4); Mean Corpuscular Hemoglobin 34.2 pg (27.0-31.2); Mean Corpuscular Volume 94.7 fl (80-94); Mean Platelet Volume 8.3 fl (7.4-10.4); Monocytes # 1.2 K/mm3 (0.1-1.0); Monocytes % 12.7 % (1.7-9.3); Neutrophils # 5.4 K/mm3 (1.8-7.8); Neutrophils % 58.8 % (37.0-80.0); Nucleated Red Blood Cells # 0 10^3/uL; Nucleated Red Blood Cells % 0 %; Platelet Count 218 K/mm3 (142-424); Red Blood Count 3.57 M/mm3 (4.60-6.20); Red Cell Distribution Width 14.3 % (11.5-17.5); White Blood Count 9.1 K/mm3 (4.8-10.8)
[2024-09-09 09:52] LABS: Alanine Aminotransferase 23 U/L (12-78); Albumin Level 3.4 g/dl (3.5-5.0); Albumin/Globulin Ratio 1.3 (1.1-1.8); Alkaline Phosphatase 72 U/L (38-126); Anion Gap 13.5 mEq/L (5-15); Aspartate Amino Transferase 35 U/L (17-59); Bilirubin,Total 0.5 mg/dl (0.2-1.3); Blood Urea Nitrogen 15 mg/dl (9-20); Calcium 8.2 mg/dl (8.4-10.2); Carbon Dioxide 17 mmol/L (22.0-30.0); Chloride 109 mmol/L (98-107); Estimated Glomerular Filt Rate 56 ml/min (>60); GFR (African American) 68 ML/MIN (>60); Globulin 2.6 g/dL (1.3-3.2); Glucose 150 mg/dl (74-100); Sodium 137 mmol/L (136-145)
[2024-09-09 10:02] LABS: Potassium 2.5 mmoL/L (3.5-5.1)
[2024-09-09 10:36] LABS: Magnesium 1.6 mg/dl (1.6-2.3)
[2024-09-09] MEDS: 0.9% NaCl w/40mEq KCL 1,000 ML 250 ML IV (10:46)
--- NOTE | 2024-09-09 11:06 | PC.NURSE ---
09/09/24 1040 Called and spoke with Manisha, nursing staff at [facility] where pt is a resident. Informed of her of pt poc, need for return on saturday and increased in po potassium to bid.
[2024-09-09 13:22] LABS: Potassium 2.9 mmoL/L (3.5-5.1)
[2024-09-09] MEDS: KCl 20mEq/100ml 100 ML 100 MEQ IV (13:40)
[2024-09-09] MEDS: KCl 10mEq/100ml 100 ML 100 MEQ IV (14:45)
== END 2024-09-09 15:35 | disposition home or self-care (01) ==
LOC: INF 09:14
PROVIDERS: PCP Family Medicine; Visit Provider Internal Medicine Medical Oncology
DX: C18.2 Malignant neoplasm of ascending colon (principal)
CPT/HCPCS: 80053; 83735; 84132; 85025; J1642; J2997; J3480

== ENCOUNTER 2024-09-11 08:36 | Outpatient (CLI) | payer MEDICAID, SELFPAY ==
[2024-09-11 09:20] LABS: Alanine Aminotransferase 20 U/L (12-78); Albumin/Globulin Ratio 1.1 (1.1-1.8); Alkaline Phosphatase 66 U/L (38-126); Anion Gap 12.1 mEq/L (5-15); Aspartate Amino Transferase 31 U/L (17-59); Bilirubin,Total 0.5 mg/dl (0.2-1.3); Blood Urea Nitrogen 13 mg/dl (9-20); Calcium 8.2 mg/dl (8.4-10.2); Carbon Dioxide 17 mmol/L (22.0-30.0); Chloride 113 mmol/L (98-107); Estimated Glomerular Filt Rate 76 ml/min (>60); GFR (African American) 92 ML/MIN (>60); Globulin 2.7 g/dL (1.3-3.2); Glucose 185 mg/dl (74-100); Potassium 3.1 mmoL/L (3.5-5.1); Sodium 139 mmol/L (136-145); Total Protein,Serum 5.7 g/dl (6.3-8.2)
[2024-09-11] MEDS: SODIUM CHLORIDE 0.9% 10ML FLUSH SYRINGE 10 ML IV (10:10)
== END 2024-09-11 09:48 | disposition home or self-care (01) ==
LOC: INF 08:37
PROVIDERS: PCP Family Medicine; Visit Provider Internal Medicine Medical Oncology
DX: C18.0 Malignant neoplasm of cecum (principal); C77.2 Secondary and unspecified malignant neoplasm of intra-abdominal lymph nodes
CPT/HCPCS: 36415; 80053; J1642

== ENCOUNTER 2024-09-17 10:03 | Outpatient (CLI) | payer MEDICAID, SELFPAY ==
[2024-09-17 10:29] LABS: Basophils # 0.1 K/mm3 (0-0.2); Basophils % 0.6 % (0.1-2.0); Eosinophils # 0.6 Kmm3 (0.0-0.4); Eosinophils % 6.5 % (0.1-12.0); Hematocrit 37.2 % (42.0-52.0); Hemoglobin 12.4 g/dL (14.1-18.0); Immature Granulocytes # 0.03 10^3uL; Immature Granulocytes % 0.3 %; Lymphocytes # 2.3 K/mm3 (0.7-4.5); Lymphocytes % 25.7 % (10-50); Mean Corpuscular HGB Conc 33.3 g/dL (31.8-35.4); Mean Corpuscular Hemoglobin 33.4 pg (27.0-31.2); Mean Corpuscular Volume 100.3 fl (80-94); Mean Platelet Volume 8.9 fl (7.4-10.4); Monocytes # 0.9 K/mm3 (0.1-1.0); Monocytes % 10.6 % (1.7-9.3); Neutrophils % 56.3 % (37.0-80.0); Nucleated Red Blood Cells # 0 10^3/uL; Nucleated Red Blood Cells % 0 %; Platelet Count 232 K/mm3 (142-424); Red Blood Count 3.71 M/mm3 (4.60-6.20); Red Cell Distribution Width 13.9 % (11.5-17.5); Red Cell Distribution Width-SD 51.1 fL; White Blood Count 8.8 K/mm3 (4.8-10.8)
[2024-09-17 11:05] LABS: Albumin Level 3.4 g/dl (3.5-5.0); Chloride 111 mmol/L (98-107); Sodium 138 mmol/L (136-145)
[2024-09-17 11:08] LABS: Alanine Aminotransferase 19 U/L (12-78); Albumin/Globulin Ratio 1.1 (1.1-1.8); Alkaline Phosphatase 88 U/L (38-126); Aspartate Amino Transferase 38 U/L (17-59); Bilirubin,Total 0.5 mg/dl (0.2-1.3); Blood Urea Nitrogen 13 mg/dl (9-20); Calcium 8.9 mg/dl (8.4-10.2); Carbon Dioxide 22 mmol/L (22.0-30.0); Estimated Glomerular Filt Rate 76 ml/min (>60); GFR (African American) 92 ML/MIN (>60); Glucose 178 mg/dl (74-100); Magnesium 1.6 mg/dl (1.6-2.3); Total Protein,Serum 6.4 g/dl (6.3-8.2)
[2024-09-17] MEDS: SODIUM CHLORIDE 0.9% 10ML FLUSH SYRINGE 10 ML IV (11:46)
== END 2024-09-17 11:39 | disposition home or self-care (01) ==
LOC: INF 10:05
PROVIDERS: PCP Family Medicine; Visit Provider Internal Medicine Medical Oncology
DX: C18.2 Malignant neoplasm of ascending colon (principal)
CPT/HCPCS: 36591; 80053; 83735; 85025; J1642

== ENCOUNTER 2024-09-22 08:46 | Outpatient (CLI) | payer MEDICAID, SELFPAY ==
--- OUTSIDE RECORDS SUMMARY | 2024-07-23 11:10 | XMS_ITS | Encounter Summary ---
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 Role Phone Tayo Jones MD Primary Care Provider [phone] Reason for Referral * Imaging (Urgent) - Closed Specialty Diagnoses / Procedures Referred By Samia pagan Referred To Contact Radiology Diagnoses Metastatic colon cancer to liver (CMS/HCC) Procedures CT Abdomen Pelvis w IV Contrast Farhad Castillo MD [address] [address] Phone: tel: fax: Referral ID Status Reason Start Date Expiration Date Visits Re quested Visits Authorized [id number] Closed 07/23/2024 01/22/2026 1 1 * Imaging (Urgent) - Closed Specialty Diagnoses / Procedures Referred By Samia pagan Referred To Contact Radiology Diagnoses Metastatic colon cancer to liver (CMS/HCC) Procedures CT Chest w IV Contrast Farhad Castillo MD [address] [address] Phone: tel: fax: Referral ID Status Reason Start Date Expiration Date Visits Re quested Visits Authorized [id number] Closed 07/23/2024 01/22/2026 1 1 Reason for Visit * Imaging (Urgent) - Closed Specialty Diagnoses / Procedures Referred By Samia t Referred To Contact Radiology Diagnoses Metastatic colon cancer to liver (CMS/HCC) Procedures CT Abdomen Pelvis w IV Contrast Farhad Castillo MD [address] [place] [phone] Phone: tel: fax: Referral ID Status Reason Start Date Expiration Date Visits Re quested Visits Authorized [id number] Closed 07/23/2024 01/22/2026 1 1 Encounter Details Date Type Department Care Team (Latest Contact Info) Description 07/23/2024 11:10 AM EDT - 07/23/2024 11:59 PM EDT Hospital Encounter [facility] CT [address] [place] [address] Metastatic colon cancer to liver (CMS/HCC) Discharge Disposition: Home or Self Care Social History Tobacco Use Types Packs/Day Years Used Date Smoking Tobacco: Never Smokeless Tobacco: Never PHQ-2 Answer Date Recorded Patient Health Questionnaire-2 Score 0 07/23/2024 Sex and Gender Information Value Date Recorded Sex Assigned at Male 07/31/2024 7:25 AM EDT Legal Sex Male 12:34 PM EDT Gender Identity Male 07/31/2024 7:25 AM EDT Sexual Orientation Not on file documented as of this encounter Functional Status * Over the past 2 weeks, how often have you been bothered by any of the following problems? Question Answer Date of Assessment Author Little interest or pleasure in doing things Not at all 07/23/2024 8:54 AM EDT [place] Feeling down, depressed, or hopeless Not at all 07/23/2024 8:54 AM EDT [place] Patient Health Questionnaire -2 Score 0 07/23/2024 8:54 AM EDT [place] * Question Answer Date of Assessment Author Thoughts that you would be b dominic off or hurting yourself in some way Not at all 07/23/2024 8:54 AM EDT [place] documented as of this encounter Medications at Time of Discharge acetaminophen (Tylenol) 500 MG tablet Take 1 tablet by mouth every 6 hours as needed for pain. 50 tablet 07/31/2024 amLODIPine (Norvasc) 5 MG tablet Take 1 tablet by mouth in the morning. capecitabine (Xeloda) 500 MG chemo tablet Take 3 tablets (1,500 mg total) by mouth 2 (two) times a day. Swallow whole with water. Do not crush or cut. carvedilol (Coreg) 12.5 MG tablet Take by mouth in the morning and in the evening. Take with meals. 07/30/2023 ferrous sulfate 325 (65 Fe) MG EC tablet 08/12/2023 insulin lispro (Admelog, HumaLOG) 100 UNIT/ML injection pen Inject 10 Units under the skin 3 (three) times a day with meals. 08/01/2023 Lantus SoloStar 100 UNIT/ML injection pen Inject 35 Units under the skin nightly. 05/29/2024 Multiple Vitamin (multivitamin) tablet Take 1 tablet by mouth daily. ondansetron (Zofran) 4 MG tablet 04/19/2024 spironolactone (Aldactone) 25 MG tablet Take 1 tablet by mouth daily. 07/11/2024 documented as of this encounter Plan of Treatment Upcoming Encounters Date Type Department Care Team (Late st Contact Info) Description 11/19/2024 8:30 AM EDT Appointment [facility] CT [address] [place] [address] 11/19/2024 11:15 AM EDT Office Visit [facility] [address] [place] [phone] Farhad Castillo MD [address] [phone] documented as of this encounter Procedures Procedure Name Priority Date/Time Associated Diagnosis Comments CT ABDOMEN PELVIS W IV CONTRAST STAT 07/23/2024 12:01 PM EDT Metastatic colon cancer to liver (CMS/HCC) CT CHEST W IV CONTRAST STAT 07/23/2024 12:01 PM EDT Metastatic colon cancer to liver (CMS/HCC) documented in this encounter Results * CT Abdomen Pelvis w IV Contrast (07/23/2024 12:01 PM EDT) Anatomical Region Laterality Modality Abdomen, Pelvis Computed Tomogra phy Impressions 07/23/2024 2:29 PM EDT Chest: No definite evidence of metastatic disease. Abdomen/Pelvis: Mild increase in hepatic metastatic burden when compared to April 2024, as detailed above. No evidence of local recurrence or other sites of definite abdominopelvic metastatic disease. CRITICAL RESULT: No. COMMUNICATION: Per this written report. Drafted by Alyssia Dick MD on 07/23/2024 2:01 PM Final report signed by Alyssia Dick MD on 07/23/2024 2:29 PM Narrative 07/23/2024 2:29 PM EDT CLINICAL INDICATION: Metastatic colon cancer to liver (CMS/HCC) Stage IIb perforated right colon cancer s/p right colectomy in 2022 and adjuvant xeloda, lost to follow up, who returns with evidence of metastatic disease in the liver which was confirmed to be hypermetabolic on outside PET 06/15/2024 TECHNIQUE: Multiple axial CT images were obtained from thoracic inlet through pubic symphysis following administration of IV contrast, Omnipaque 300, 100 mL. Reformatted images in the coronal and sagittal planes were generated from the axial data set to facilitate diagnostic accuracy. Total DLP (Dose-Length Product): 2037.69 mGy.cm (accession [id number]), 2037.69 mGy.cm (accession [id number]) Please note: The reported value represents the total of one or more individual components during the CT acquisition on this date and at this time, and as such, the same value may appear in more than one CT report depending on the interpreting/reporting physicians. COMPARISON: Outside F-18 FDG PET/CT 06/15/2024 Outside contrast-enhanced thoracoabdominal CTs 05/06/2024 FINDINGS: Chest: Lymph Nodes and Mediastinum: Unremarkable thyroid. No thoracic adenopathy. Cardiovascular: Normal caliber heart. Borderline in the distal descending thoracic aorta at 41 mm diameter. Borderline enlarged main pulmonary artery without central pulmonary emboli. Mild multivessel coronary artery calcific atherosclerosis. No pericardial effusions. Lungs and Pleura: Patent central airways. No suspicious sizable pulmonary nodules to convincingly suggest metastatic disease. There are a few stable tiny pulmonary nodules which may be postinfectious/postinflammatory but warrant continued attention, for example 5 mm lingular nodule and a 2-3 mm left lower nodule on series 4 images 243 and 320. No suspicious enhancing nodular pleural thickening or pleural effusions. Musculoskeletal and Body Wall: No clearly aggressive lytic/blastic osseous lesions or chest wall soft tissue masses. Mild to moderate multilevel spondylosis with accentuated thoracic kyphosis. Bilateral nodular gynecomastia. Abdomen/Pelvis: Solid Abdominal Organs: Diffuse hepatic steatosis which decreases intrinsic resolution for metastatic detection. The 3 known right hepatic metastases appear mildly enlarged when compared to April 2024; 4 cm segment VIII on 3:35 (previously 3.5 cm), 2.6 cm central hepatic segment VIII-Genesis junction lesion on 3:51 (previously 2.3 cm), and 3.5 cm segment V/ junction lesion on 3:72 (previously 3.2 cm). There may be additionally subtle smaller 11 mm segment 6 lesion on 3:87 and questionable 18 mm segment IVB lesion on 3:67 that do not appear significantly changed. Some dependent sludge versus tiny calculi within the gallbladder. No evidence of acute cholecystitis. There is a hyperenhancing 3 cm pancreatic tail nodule on 3:104 that is unchanged from April 2024 and did not show significant associated hypermetabolism on comparison PET/CT. This could statistically represent an intrapancreatic splenule given the isodensity with the spleen of the on all phases and matching metabolic signature with the spleen on comparison PET/CT, however warrants continued attention to exclude the possibility of a well differentiated neuroendocrine tumor. A 15 mm anteromedial right lower polar renal cortical cyst that may have minimal septations. Otherwise, unremarkable kidneys and adrenal glands. GI Tract/Mesentery/Peritoneum: Postsurgical changes from right colectomy without evidence of local recurrence. No evidence of GI tract obstruction, perforation, or obvious focal inflammation. No suspicious sizable mesenteric/peritoneal deposits. Pelvic Viscera: Unremarkable under distended urinary bladder and male pelvic viscera by CT appearance. Lymph Nodes/Vasculature: No new or enlarging adenopathy when compared to April 2024. There are a few mildly enlarged and slightly irregular periportal and portacaval lymph nodes which are indeterminate, chronic inflammatory versus potential metastatic involvement, for example 14 mm short axis portacaval node on 3:87 and adjacent 14 mm periportal node on 3:82. Free Fluid: No ascites. Musculoskeletal and Body Wall: Multifocal incisional hernia within the supraumbilical epigastric midline containing loops of nonobstructed small bowel, slightly progressed when compared to CT 3 months prior. There is diffuse anterior abdominal wall fascial and muscular laxity. There are no clearly aggressive lytic/blastic osseous lesions or body wall soft tissue masses. Advanced L5-S1 spondylosis. Few probable pelvic bone islands. Procedure Note Alyssia Dick MD - 07/23/2024 CLINICAL INDICATION: Metastatic colon cancer to liver (CMS/HCC) Stage IIb perforated right colon cancer s/p right colectomy in 2022 andadjuvant xeloda, lost to follow up, who returns with evidence ofmetastatic disease in the liver which was confirmed to be hypermetabolicon outside PET 06/15/2024 TECHNIQUE: Multiple axial CT images were obtained from thoracic inlet through pubicsymphysis following administration of IV contrast, Omnipaque 300, 100 mL.Reformatted images in the coronal and sagittal planes were generated fromthe axial data set to facilitate diagnostic accuracy. Total DLP (Dose-Length Product): 2037.69 mGy.cm (accession [id number]),2037.69 mGy.cm (accession [id number]) Please note: The reported valuerepresents the total of one or more individual components during the CTacquisition on this date and at this time, and as such, the same value mayappear in more than one CT report depending on the interpreting/reportingphysicians. COMPARISON: Outside F-18 FDG PET/CT 06/15/2024 Outside contrast-enhanced thoracoabdominal CTs 05/06/2024 FINDINGS: Chest: Lymph Nodes and Mediastinum: Unremarkable thyroid. No thoracicadenopathy. Cardiovascular: Normal caliber heart. Borderline in the distal descendingthoracic aorta at 41 mm diameter. Borderline enlarged main pulmonaryartery without central pulmonary emboli. Mild multivessel coronary arterycalcific atherosclerosis. No pericardial effusions. Lungs and Pleura: Patent central airways. No suspicious sizable pulmonarynodules to convincingly suggest metastatic disease. There are a few stabletiny pulmonary nodules which may be postinfectious/postinflammatory butwarrant continued attention, for example 5 mm lingular nodule and a 2-3 mmleft lower nodule on series 4 images 243 and 320. No suspicious enhancingnodular pleural thickening or pleural effusions. Musculoskeletal and Body Wall: No clearly aggressive lytic/blastic osseouslesions or chest wall soft tissue masses. Mild to moderate multilevelspondylosis with accentuated thoracic kyphosis. Bilateral nodulargynecomastia. Abdomen/Pelvis: Solid Abdominal Organs: Diffuse hepatic steatosis which decreasesintrinsic resolution for metastatic detection. The 3 known right hepaticmetastases appear mildly enlarged when compared to April 2024; 4 cmsegment VIII on 3:35 (previously 3.5 cm), 2.6 cm central hepatic segmentVIII-Genesis junction lesion on 3:51 (previously 2.3 cm), and 3.5 cm segmentV/ junction lesion on 3:72 (previously 3.2 cm). There may beadditionally subtle smaller 11 mm segment 6 lesion on 3:87 andquestionable 18 mm segment IVB lesion on 3:67 that do not appearsignificantly changed. Some dependent sludge versus tiny calculi withinthe gallbladder. No evidence of acute cholecystitis. There is ahyperenhancing 3 cm pancreatic tail nodule on 3:104 that is unchanged fromApril 2024 and did not show significant associated hypermetabolism oncomparison PET/CT. This could statistically represent an intrapancreaticsplenule given the isodensity with the spleen of the on all phases andmatching metabolic signature with the spleen on comparison PET/CT, however warrants continuedattention to exclude the possibility of a well differentiatedneuroendocrine tumor. A 15 mm anteromedial right lower polar renalcortical cyst that may have minimal septations. Otherwise, unremarkablekidneys and adrenal glands. GI Tract/Mesentery/Peritoneum: Postsurgical changes from right colectomywithout evidence of local recurrence. No evidence of GI tract obstruction,perforation, or obvious focal inflammation. No suspicious sizablemesenteric/peritoneal deposits. Pelvic Viscera: Unremarkable under distended urinary bladder and malepelvic viscera by CT appearance. Lymph Nodes/Vasculature: No new or enlarging adenopathy when compared toApril 2024. There are a few mildly enlarged and slightly irregularperiportal and portacaval lymph nodes which are indeterminate, chronicinflammatory versus potential metastatic involvement, for example 14 mmshort axis portacaval node on 3:87 and adjacent 14 mm periportal node on3:82. Free Fluid: No ascites. Musculoskeletal and Body Wall: Multifocal incisional hernia within thesupraumbilical epigastric midline containing loops of nonobstructed smallbowel, slightly progressed when compared to CT 3 months prior. There isdiffuse anterior abdominal wall fascial and muscular laxity. There are noclearly aggressive lytic/blastic osseous lesions or body wall soft tissuemasses. Advanced L5-S1 spondylosis. Few probable pelvic bone islands. IMPRESSION: Chest: No definite evidence of metastatic disease. Abdomen/Pelvis: Mild increase in hepatic metastatic burden when comparedto April 2024, as detailed above. No evidence of local recurrence orother sites of definite abdominopelvic metastatic disease. CRITICAL RESULT: No. COMMUNICATION: Per this written report. Drafted by Alyssia Dick MD on 07/23/2024 2:01 PM Final report signed by Alyssia Dick MD on 07/23/2024 2:29 PM Farhad Castillo MD IMG CT PROCEDURES Final Re sult * CT Chest w IV Contrast (07/23/2024 12:01 PM EDT) Anatomical Region Laterality Modality Chest Computed Tomogra phy Impressions 07/23/2024 2:29 PM EDT Chest: No definite evidence of metastatic disease. Abdomen/Pelvis: Mild increase in hepatic metastatic burden when compared to April 2024, as detailed above. No evidence of local recurrence or other sites of definite abdominopelvic metastatic disease. CRITICAL RESULT: No. COMMUNICATION: Per this written report. Drafted by Alyssia Dick MD on 07/23/2024 2:01 PM Final report signed by Alyssia Dick MD on 07/23/2024 2:29 PM Narrative 07/23/2024 2:29 PM EDT CLINICAL INDICATION: Metastatic colon cancer to liver (CMS/HCC) Stage IIb perforated right colon cancer s/p right colectomy in 2022 and adjuvant xeloda, lost to follow up, who returns with evidence of metastatic disease in the liver which was confirmed to be hypermetabolic on outside PET 06/15/2024 TECHNIQUE: Multiple axial CT images were obtained from thoracic inlet through pubic symphysis following administration of IV contrast, Omnipaque 300, 100 mL. Reformatted images in the coronal and sagittal planes were generated from the axial data set to facilitate diagnostic accuracy. Total DLP (Dose-Length Product): 2037.69 mGy.cm (accession [id number]), 2037.69 mGy.cm (accession [id number]) Please note: The reported value represents the total of one or more individual components during the CT acquisition on this date and at this time, and as such, the same value may appear in more than one CT report depending on the interpreting/reporting physicians. COMPARISON: Outside F-18 FDG PET/CT 06/15/2024 Outside contrast-enhanced thoracoabdominal CTs 05/06/2024 FINDINGS: Chest: Lymph Nodes and Mediastinum: Unremarkable thyroid. No thoracic adenopathy. Cardiovascular: Normal caliber heart. Borderline in the distal descending thoracic aorta at 41 mm diameter. Borderline enlarged main pulmonary artery without central pulmonary emboli. Mild multivessel coronary artery calcific atherosclerosis. No pericardial effusions. Lungs and Pleura: Patent central airways. No suspicious sizable pulmonary nodules to convincingly suggest metastatic disease. There are a few stable tiny pulmonary nodules which may be postinfectious/postinflammatory but warrant continued attention, for example 5 mm lingular nodule and a 2-3 mm left lower nodule on series 4 images 243 and 320. No suspicious enhancing nodular pleural thickening or pleural effusions. Musculoskeletal and Body Wall: No clearly aggressive lytic/blastic osseous lesions or chest wall soft tissue masses. Mild to moderate multilevel spondylosis with accentuated thoracic kyphosis. Bilateral nodular gynecomastia. Abdomen/Pelvis: Solid Abdominal Organs: Diffuse hepatic steatosis which decreases intrinsic resolution for metastatic detection. The 3 known right hepatic metastases appear mildly enlarged when compared to April 2024; 4 cm segment VIII on 3:35 (previously 3.5 cm), 2.6 cm central hepatic segment VIII-Genesis junction lesion on 3:51 (previously 2.3 cm), and 3.5 cm segment V/ junction lesion on 3:72 (previously 3.2 cm). There may be additionally subtle smaller 11 mm segment 6 lesion on 3:87 and questionable 18 mm segment IVB lesion on 3:67 that do not appear significantly changed. Some dependent sludge versus tiny calculi within the gallbladder. No evidence of acute cholecystitis. There is a hyperenhancing 3 cm pancreatic tail nodule on 3:104 that is unchanged from April 2024 and did not show significant associated hypermetabolism on comparison PET/CT. This could statistically represent an intrapancreatic splenule given the isodensity with the spleen of the on all phases and matching metabolic signature with the spleen on comparison PET/CT, however warrants continued attention to exclude the possibility of a well differentiated neuroendocrine tumor. A 15 mm anteromedial right lower polar renal cortical cyst that may have minimal septations. Otherwise, unremarkable kidneys and adrenal glands. GI Tract/Mesentery/Peritoneum: Postsurgical changes from right colectomy without evidence of local recurrence. No evidence of GI tract obstruction, perforation, or obvious focal inflammation. No suspicious sizable mesenteric/peritoneal deposits. Pelvic Viscera: Unremarkable under distended urinary bladder and male pelvic viscera by CT appearance. Lymph Nodes/Vasculature: No new or enlarging adenopathy when compared to April 2024. There are a few mildly enlarged and slightly irregular periportal and portacaval lymph nodes which are indeterminate, chronic inflammatory versus potential metastatic involvement, for example 14 mm short axis portacaval node on 3:87 and adjacent 14 mm periportal node on 3:82. Free Fluid: No ascites. Musculoskeletal and Body Wall: Multifocal incisional hernia within the supraumbilical epigastric midline containing loops of nonobstructed small bowel, slightly progressed when compared to CT 3 months prior. There is diffuse anterior abdominal wall fascial and muscular laxity. There are no clearly aggressive lytic/blastic osseous lesions or body wall soft tissue masses. Advanced L5-S1 spondylosis. Few probable pelvic bone islands. Procedure Note Alyssia Dick MD - 07/23/2024 CLINICAL INDICATION: Metastatic colon cancer to liver (CMS/HCC) Stage IIb perforated right colon cancer s/p right colectomy in 2022 andadjuvant xeloda, lost to follow up, who returns with evidence ofmetastatic disease in the liver which was confirmed to be hypermetabolicon outside PET 06/15/2024 TECHNIQUE: Multiple axial CT images were obtained from thoracic inlet through pubicsymphysis following administration of IV contrast, Omnipaque 300, 100 mL.Reformatted images in the coronal and sagittal planes were generated fromthe axial data set to facilitate diagnostic accuracy. Total DLP (Dose-Length Product): 2037.69 mGy.cm (accession [id number]),2037.69 mGy.cm (accession [id number]) Please note: The reported valuerepresents the total of one or more individual components during the CTacquisition on this date and at this time, and as such, the same value mayappear in more than one CT report depending on the interpreting/reportingphysicians. COMPARISON: Outside F-18 FDG PET/CT 06/15/2024 Outside contrast-enhanced thoracoabdominal CTs 05/06/2024 FINDINGS: Chest: Lymph Nodes and Mediastinum: Unremarkable thyroid. No thoracicadenopathy. Cardiovascular: Normal caliber heart. Borderline in the distal descendingthoracic aorta at 41 mm diameter. Borderline enlarged main pulmonaryartery without central pulmonary emboli. Mild multivessel coronary arterycalcific atherosclerosis. No pericardial effusions. Lungs and Pleura: Patent central airways. No suspicious sizable pulmonarynodules to convincingly suggest metastatic disease. There are a few stabletiny pulmonary nodules which may be postinfectious/postinflammatory butwarrant continued attention, for example 5 mm lingular nodule and a 2-3 mmleft lower nodule on series 4 images 243 and 320. No suspicious enhancingnodular pleural thickening or pleural effusions. Musculoskeletal and Body Wall: No clearly aggressive lytic/blastic osseouslesions or chest wall soft tissue masses. Mild to moderate multilevelspondylosis with accentuated thoracic kyphosis. Bilateral nodulargynecomastia. Abdomen/Pelvis: Solid Abdominal Organs: Diffuse hepatic steatosis which decreasesintrinsic resolution for metastatic detection. The 3 known right hepaticmetastases appear mildly enlarged when compared to April 2024; 4 cmsegment VIII on 3:35 (previously 3.5 cm), 2.6 cm central hepatic segmentVIII-Genesis junction lesion on 3:51 (previously 2.3 cm), and 3.5 cm segmentV/ junction lesion on 3:72 (previously 3.2 cm). There may beadditionally subtle smaller 11 mm segment 6 lesion on 3:87 andquestionable 18 mm segment IVB lesion on 3:67 that do not appearsignificantly changed. Some dependent sludge versus tiny calculi withinthe gallbladder. No evidence of acute cholecystitis. There is ahyperenhancing 3 cm pancreatic tail nodule on 3:104 that is unchanged fromJan2024 and did not show significant associated hypermetabolism oncomparison PET/CT. This could statistically represent an intrapancreaticsplenule given the isodensity with the spleen of the on all phases andmatching metabolic signature with the spleen on comparison PET/CT, however warrants continuedattention to exclude the possibility of a well differentiatedneuroendocrine tumor. A 15 mm anteromedial right lower polar renalcortical cyst that may have minimal septations. Otherwise, unremarkablekidneys and adrenal glands. GI Tract/Mesentery/Peritoneum: Postsurgical changes from right colectomywithout evidence of local recurrence. No evidence of GI tract obstruction,perforation, or obvious focal inflammation. No suspicious sizablemesenteric/peritoneal deposits. Pelvic Viscera: Unremarkable under distended urinary bladder and malepelvic viscera by CT appearance. Lymph Nodes/Vasculature: No new or enlarging adenopathy when compared toApril 2024. There are a few mildly enlarged and slightly irregularperiportal and portacaval lymph nodes which are indeterminate, chronicinflammatory versus potential metastatic involvement, for example 14 mmshort axis portacaval node on 3:87 and adjacent 14 mm periportal node on3:82. Free Fluid: No ascites. Musculoskeletal and Body Wall: Multifocal incisional hernia within thesupraumbilical epigastric midline containing loops of nonobstructed smallbowel, slightly progressed when compared to CT 3 months prior. There isdiffuse anterior abdominal wall fascial and muscular laxity. There are noclearly aggressive lytic/blastic osseous lesions or body wall soft tissuemasses. Advanced L5-S1 spondylosis. Few probable pelvic bone islands. IMPRESSION: Chest: No definite evidence of metastatic disease. Abdomen/Pelvis: Mild increase in hepatic metastatic burden when comparedto April 2024, as detailed above. No evidence of local recurrence orother sites of definite abdominopelvic metastatic disease. CRITICAL RESULT: No. COMMUNICATION: Per this written report. Drafted by Alyssia Dick MD on 07/23/2024 2:01 PM Final report signed by Alyssia Dick MD on 07/23/2024 2:29 PM Farhad Castillo MD IMG CT PROCEDURES Final Re sult documented in this encounter Visit Diagnoses Diagnosis Metastatic colon cancer to liver (CMS/HCC) documented in this encounter Administered Medications Inactive Administered Medications - up to 3 most recent administrations Medication Order MAR Action Action Date Dose Rate Site iohexol (OMNIPaque) 300 MG/ML injection 100 mL 100 mL, Intravenous, Once in imaging, 1 dose, Starting on Zabrina 07/23/24 at 1124, Until Zabrina 07/23/24 at 1156, Routine, Imaging Protocol Orders Given 07/23/2024 11:56 AM EDT 100 mL iohexol (OMNIPaque) 9 MG/ML oral contrast 500 mL 500 mL, Oral, Once in imaging, 1 dose, Starting on Zabrina 07/23/24 at 1124, Until Zabrina 07/23/24 at 1130, Routine, Imaging Protocol Orders Given 07/23/2024 11:30 AM EDT 500 mL documented in this encounter Additional Health Concerns Assessment Noted Time A fall risk assessment has been complete d for the patient 07/23/2024 8:54 AM EDT A Body Mass Index follow-up plan has been documented for the patient 07/24/2024 8:25 AM EDT documented as of this encounter Care Teams Straddle Truck Operator Relationship Specialty Start Date End Date Tayo Jones MD [address] [place] [address] PCP - General 07/14/24 documented as of this encounter
--- OUTSIDE RECORDS SUMMARY | 2024-07-27 10:00 | XMS_ITS | Encounter Summary ---
Author Organization [facility] Address [address] [place] [address] Care Team Providers Care Powdered Sugar Supervisor Name Role Phone Tayo Jones MD Primary Care Provider [phone] Encounter Details Date Type Department Care Team (Late st Contact Info) Description 07/27/2024 10:00 AM EDT Pre-Admission Testing [facility] [address] [place] [address] Anesthesia Record Procedure Summary Procedure Name Responsible Anesthesiologist Anesthesia Start Time Anesthesia Stop Time INSERTION, TUNNELED CENTRAL VENOUS DEVICE, WITH Wilian Edwards MD 07/31/24 0729 07/31/24 0919 Events Date Time Event Comment 07/31/2024 0713 0728 In Room 0729 An Start The patient was reevaluated immediately before sedation and remains eligible for anesthesia plan. 0729 An Start Data 0732 An Induction The patient was reevaluated immediately before moderate or deep sedation use and before anesthesia induction. 0733 An Intubation 0738 Anesthesia Ready 0809 Proc Start 0901 Proc Fin 0910 An Extubation 0912 Out of Room 0916 an stop data 0919 Handoff to Receiving I compl eted my handoff to the receiving clinician during which we: 1. Identified the patient 2. Identified the responsible provider 3. Reviewed the pertinent medical history 4. Discussed the surgical course 5. Reviewed intra-op anesthesia management and issues during anesthesia 6. Set expectations for post-procedure period 7. Allowed opportunity for questions and acknowledgement of understanding. 0919 An Stop Meds * Agents No agents on file. * Blood No blood administrations on file. Lines, Drains, and Airways Type Details Placement Removal Wound 07/31/24; 0811; N; Y es; Surgical; Open Surg; Chest; Left, Upper 07/31/24 0811 by Nayan Patel RN Peripheral IV Placement Date: 07/31/24; Placement Time: 0635; Catheter Size: 18 G; Orientation: Left, Posterior; Location: Hand; Site Prep: Chlorhexidine ; Insertion Attempts: 1; Patient Tolerance: Tolerated well; Removal Date: 07/31/24; Removal Time: 1005; Removal Reason: Per protocol 07/31/24 0635 by Lynette Gotti RN 07/31/24 1005 by Rosalinda Pool RN ETT Placement Date: 07/31/24; Placement Time: 0733 (created via procedure documentation); Mask Ventilation: 3; Technique: Video laryngoscopy; Type: ETT - single; Single Lumen Tube Size: 7.5 mm; Cuffed: Yes; Blade Size: 4; Location: Oral; Insertion Attempts: 1; Placement Verification: Auscultation, Capnometry; Airway Comments: Atraumatic. No change to dentition. Attempted DL with MAC 4 with grade 3 view, difficult bag mask due to acevedo, LMA placed to for oxygenation. Glidescope used on second attempt, grade 2a view with lopro 4. ; Placed by: Resident ; Removal Date: 07/31/24; Removal Time: 0910 07/31/24 0733 by Wilian Jefferson MD 07/31/24 0910 by Wilian Jefferson MD Single Lumen Implantable Port 07/31/24; 0834; No; Yes; Yes; Left; Chest; Dr. Castillo/Dr. Madera; 07/31/24; 1005 07/31/24 0834 by Nayan Patel RN 07/31/24 1005 by Rosalinda Pool RN documented in this encounter Social History Tobacco Use Types Packs/Day Years Used Date Smoking Tobacco: Never Smokeless Tobacco: Never Alcohol Use Standard Drinks/Week Comments Never 0 (1 standard drink = 0.6 oz pur e alcohol) PHQ-2 Answer Date Recorded Patient Health Questionnaire-2 Score 0 07/23/2024 Sex and Gender Information Value Date Recorded Sex Assigned at Male 07/31/2024 7:25 AM EDT Legal Sex Male 12:34 PM EDT Gender Identity Male 07/31/2024 7:25 AM EDT Sexual Orientation Not on file documented as of this encounter Miscellaneous Notes * PAT Evaluation Note - Eva Fragoso, CANDIDA - 07/27/2024 10:00 AM EDT HPI Nayan Womack is a 59 y.o. male who presents with Pre-op Diagnosis * Metastatic colon cancer to liver (CMS/HCC) [C18.9, C78.7] now scheduled for INSERTION, TUNNELED CENTRAL VENOUS DEVICE, WITH PORT (N/A) with Farhad Castillo MD on 07/31/2024 in [facility]. Presented with abdominal pain and leukocytosis with imaging concerning for ruptured appendicitis in10/2022 requiring right colectomy where intra-operative findings were concerning for perforated cecal mass (Surgeon-Morro Junior, op note in media) with specimen revealed moderately differentiated adenocarcinoma, Stage IIb, and underwent adjuvant therapy with xeloda before being lost to follow up.Patient states he continued to take the xeloda and has been on it since that time, but this not seem to reflect in Dr. Matthew's note. He represented to his medical oncologist ([facility]; Tayo Matthew) in April for follow up. CEA 4.8. And imaging showing liver lesions concerning for metastatic disease. Biopsy not performed as local IR did not feel the lesions were amenable to biopsy. He has not had a colonoscopy since his original operation. Medical History[1] Family History[2] Social History[3] SURGICAL HISTORY: Surgical History[4] Allergies[5] MEDICATIONS: Current Outpatient Medications: capecitabine, Take 3 tablets (1,500 mg total) by mouth in the morning and 3 tablets (1,500 mg total) before bedtime. Swallow whole with water. Do not crush or cut. carvedilol, Take by mouth in the morning and in the evening. Take with meals. ferrous sulfate, insulin lispro, Inject 10 Units under the skin in the morning and 10 Units at noon and 10 Units in the evening. Inject with meals. Lantus SoloStar, Inject 35 Units under the skin nightly. lisinopril-hydroCHLOROthiazide, Take 1 tablet by mouth daily. multivitamin, Take 1 tablet by mouth daily. Quercetin, Take 2 tablets by mouth daily. spironolactone, Take 1 tablet by mouth daily. amLODIPine, Take 1 tablet by mouth in the morning. (Patient not taking: Reported on 07/27/2024) ondansetron, ROS Anesthesia: Date of last anesthetic: ~ 2 years ago GA colectomy history of previous anesthesia. Does not have a history of anesthetic complications and obstructivesleep apnea. Cardiovascular: hyperlipidemia and PVD. Does not have atrial fibrillation, CAD, CHF, dyspnea, dysrhythmias, pacemaker or past TN. hypertension: is well controlled. Does not have chest pain. Respiratory: Does not have home oxygen. Patient has no dyspnea.no asthma: no COPD: Has not had an upper respiratory infection in last 30 days. Has not had pneumonia in the last 30 days, RSV in the last 30 days orCOVID in the last 30 days. HEENT: Does not have chipped teeth, loose teeth or missing teeth. Neurological: no seizures: Did not have a cerebrovascular accident. Musculoskeletal: Musc/Skel/Integ additional comments: Lt foot OM s/p toe amputation H/O right calf abscess s/p I&D, washout and closure Gastrointestinal: Does not have GERD.GI malignancy (colon cancer s/p colectomy with mets to the liver). Does not havecirrhosis. obese. Genitourinary: Does not have chronic renal disease. Hematological/Lymphatic: anemia (FRANSISCO). no hemophilia.History of no DVT. History of no pulmonary embolism. Not in a hypercoagulable state. history of chemotherapy no history of radiation Does not have HIV, MRSA or tuberculosis. Endocrine/Metabolic: diabetes mellitus type 2.poorly controlled. AM glucose 166, last A1c 7.7 Does not have thyroid disorder. Lab Results Component Value Date WBC 13.58 (H) 07/23/2024 HGB 13.8 07/23/2024 HCT 39.5 (L) 07/23/2024 MCV 99 (H) 07/23/2024 PLT 290 07/23/2024 Lab Results Component Value Date GLUCOSE 148 (H) 07/23/2024 BUN 21 07/23/2024 CREATININE 0.96 07/23/2024 BCR 22 07/23/2024 NA 136 07/23/2024 K 4.4 07/23/2024 CL 104 07/23/2024 CO2 18 (L) 07/23/2024 ALBUMIN 4.0 07/23/2024 ALKPHOS 74 07/23/2024 BILITOT 0.7 07/23/2024 Lab Results Component Value Date HGBA1C 7.7 (H) 07/23/2024 Lab Results Component Value Date INR 1.1 07/23/2024 Visit Vitals Smoking Status Never 07/23/2024 8:46 AM Vitals Systolic 131 Diastolic 82 Heart Rate 82 Temp 36.6 C Resp 16 Height (cm) 175.3 cm Weight (kg) 120 kg BMI 39.07 kg/m2 BSA (m2) 2.42 m2 Visit Report Report Physical Exam Anesthesia Plan ASA 3 Anesthesia technique(s) discussed with the patient/family: general Comment: RAYO phone screen with patient's sister and detention nurse Eva Henning APRN [1] Past Medical History: Diagnosis Date Diabetes (CMS/HCC) High blood pressure [2] Family History Problem Relation Name Age of Onset Other (paternal aunt breast cancer) Other Anesthesia problems Neg Hx Malig Hyperthermia Neg Hx [3] Social History Tobacco Use Smoking status: Never Smokeless tobacco: Never Vaping Use Vaping status: Never Used Substance Use Topics Alcohol use: Never Drug use: Never [4] Past Surgical History: Procedure Laterality Date APPENDECTOMY FOOT SURGERY Left surgery dur to diabetes LEG SURGERY Right surgery dur to diabetes [5] No Known Allergies * Preprocedure Instructions - Eva Fragoso APRN - 07/27/2024 10:00 AM EDT Home Medication Instructions Current Medications Medication Instructions capecitabine (Xeloda) 500 MG chemo tablet Take as prescribed carvedilol (Coreg) 12.5 MG tablet Take morning of surgery ferrous sulfate 325 (65 Fe) MG EC tablet Hold day of surgery insulin lispro (Admelog, HumaLOG) 100 UNIT/ML injection pen Hold day of surgery Lantus SoloStar 100 UNIT/ML injection pen Take 1/2 usual dose of your insulin night before surgery lisinopril-hydroCHLOROthiazide 20-25 MG tablet Hold day of surgery Multiple Vitamin (multivitamin) tablet Hold day of surgery Quercetin 500 MG capsule Hold 7 days before surgery spironolactone (Aldactone) 25 MG tablet Hold day of surgery General Preoperative Instructions You will be called the business day before surgery with your arrival time No food after midnight the night before surgery. You can drink clear liquids up to 2 hours prior to arrival. Please do not try to get all your hydration in 2 hours prior to arrival. Start the day before surgery drinking more than you usually would.After midnight, you can have clear liquids only (water, apple juice, Gatorade) up to 2 hours prior to arrival. No coffee or tea. No alcohol or smoking prior to surgery Arrive on time to avoid delays Parking/Registration procedure explained You MUST have a responsible adult available for transport to and from hospital Visitation policy for the day of surgery reviewed Bring insurance card, photo ID, along with power of civil attorney, guardianship or advanced directives if applicable Do not bring money, jewelry or other valuables Hibiclens bathing instructions reviewed if applicable Notify surgeon of fever, illness, any changes or if you decide not to have surgery Diabetes Instructions (If applicable) Take diabetes medication as instructed You may have up to 4 ounces of apple juice 2 hours prior to arrival for surgery for low glucose documented in this encounter Plan of Treatment Upcoming Encounters Date Type Department Care Team (Late st Contact Info) Description 11/19/2024 8:30 AM EDT Appointment [facility] [address] [place] [address] 11/19/2024 11:15 AM EDT Office Visit [facility] Mult[facility]isciplinary Oncology Clinic [address] [place] [address] Farhad Castillo MD [address] [phone] documented as of this encounter Visit Diagnoses Not on filedocumented in this encounter Additional Health Concerns Assessment Noted Time A fall risk assessment has been complete d for the patient 07/23/2024 8:54 AM EDT A Body Mass Index follow-up plan has been documented for the patient 07/24/2024 8:25 AM EDT documented as of this encounter Care Teams Powdered Sugar Supervisor Relationship Specialty Start Date End Date Tayo Jones MD [address] [place] [address] PCP - General 07/14/24 documented as of this encounter
--- OUTSIDE RECORDS SUMMARY | 2024-07-31 05:40 | XMS_ITS | Encounter Summary ---
Author Organization [facility] Address [address] [place] [address] Care Team Providers Care Skiing Teacher Name Role Phone Tayo Jones MD Primary Care Provider [phone] Reason for Visit * Auth/Cert (Routine) Specialty Diagnoses / Procedures Referred By Samia pagan Referred To Contact Diagnoses Metastatic colon cancer to liver (CMS/HCC) Metastatic colon cancer to liver (CMS/HCC) [C18.9, C78.7] Procedures [place] INSERT TUNNELED CV CATH WITH PORT CHG FLUOROGUIDE CNTRL LYNN ACCESS,PLACE,REPLACE,REMOVE INSERTION, TUNNELED CENTRAL VENOUS DEVICE, WITH PORT Farhad Castillo MD [address] [place] [phone] Phone: tel: fax: [facility] [address] [place] [phone] Phone: tel: Referral ID Status Reason Start Date Expiration Date Visits Re quested Visits Authorized [id number] 1 1 Encounter Details Date Type Department Care Team (Latest Contact Info) Description 07/31/2024 5:40 AM EDT - 07/31/2024 10:10 AM EDT Hospital Encounter [facility] [address] [place] [phone] Farhad Castillo MD [address] [phone] Metastatic colon cancer to liver [...] AM EDT Operative Note Date: 07/31/24 Location: [facility] Name: Nayan Womack, : 1965, Diagnoses: Pre-op Diagnosis Metastatic colon cancer to liver (CMS/HCC) Post-op Diagnosis Metastatic colon cancer to liver (CMS/HCC) Procedure(s): Left Subclavian Vein 8-Hungarian Single Lumen PORT Placement with Fluoroscopic Guidance Attending Surgeon(s): * Farhad Castillo - Primary Customer Success Specialist(s): * Logan Mitchell MD - Resident - Assisting Anesthesia: General ASA: III Blood Administration: Blood Product Administration History None Estimated Blood Loss: Minimal Drains: * None in log * Implants Type Name Action Serial No. Other Medication Pump PORT CLEARVUE POWER 8FR - S. - [id number] Implanted . Specimen: Findings: Left subclavian vein [...] his sister who is his power of securities attorney. Patient was brought to the operating [...] pocket in order to accommodate an 8 Hungarian single-lumen port. 2-0 Prolene stay sutures were [...] Info) Description 11/19/2024 8:30 AM EDT Appointment [facility] [address] [place] [address] 11/19/2024 11:15 AM EDT Office Visit [facility] Multidisciplinary Oncology Clinic [address] [place] [address] Farhad Castillo MD [address] [place] [phone] documented as of this encounter Procedures Procedure Name Priority Date/Time Associated Diagnosis Comments XR CHEST 1 VIEW STAT 07/31/2024 9:42 AM EDT POCT GLUCOSE METER UNSOLICITED RESULTS Routine 07/31/2024 9:31 AM EDT FL LESS THAN 1 HOUR (NON-REPORTABLE) Routine 07/31/2024 8:59 AM EDT [place] INSERT TUNNELED CV CATH WITH PORT 07/31/2024 [...] Comment 07/31/2024 2:28 PM EDT [facility] Cigar Head Perforator ID Rosalinda Pool 08/01/19 25 2:28 PM EDT [facility] Device ID [id number] 07/31/2024 2:28 PM EDT [facility] Specimen Type POC Capillary 07/31/2024 2:28 PM EDT [facility] Blood Capillary blood specimen / Unknown 07/31/2024 9:31 AM EDT 07/31/2024 2:28 PM EDT us Farhad Castillo MD LAB POINT OF CARE TEST DOCKED DEVICE UNSOLICITED RESULTS Final Result [facility] [address] [place] [address] * FL Less than 1 Hour Intraoperative [...] for testing. Comment 07/31/2024 6:44 AM EDT [facility] Cigar Head Perforator ID Lynette Gotti 6:44 AM EDT [facility] Device ID [id number] 07/31/2024 6:44 AM EDT [facility] Specimen Type POC Venous 07/31/2024 6:44 AM EDT [facility] Blood Venous blood specimen / Unknown 07/31/2024 6:39 AM EDT 07/31/2024 6:44 AM EDT Farhad Castillo MD LAB POINT OF CARE TEST DOCKED DEVICE UNSOLICITED RESULTS Final Result Performing Organization Address City/[facility]/ZIP Co de Phone Number [facility] [address] [place] [address] documented in this encounter Visit Diagnoses Diagnosis [...] of 10 bupivacaine-EPINEPHrine PF (Marcaine w/EPI) 0.25% -[id number] injection (CANCELED) As needed, Starting on Sat07/31/24 [...] documented as of this encounter Care Teams Skiing Teacher Relationship Specialty Start Date End Date Tayo Jones MD [address] [place] [address] PCP - General 07/14/24 documented as of this encounter
--- OUTSIDE RECORDS SUMMARY | 2024-07-31 07:29 | XMS_ITS | Encounter Summary ---
Author Organization [facility] Address [address] [id number] Care Team Providers Care Absorption Operator Name Role Phone Tayo Jones MD Primary Care Provider [phone] Reason for Visit * Auth/Cert (Routine) Specialty Diagnoses / Procedures Referred By Samia pagan Referred To Contact Diagnoses Metastatic colon cancer to liver (CMS/HCC) Metastatic colon cancer to liver (CMS/HCC) [C18.9, C78.7] Procedures DE INSERT TUNNELED CV CATH WITH PORT CHG FLUOROGUIDE CNTRL LYNN ACCESS,PLACE,REPLACE,REMOVE INSERTION, TUNNELED CENTRAL VENOUS DEVICE, WITH PORT Farhad Castillo MD [address] [place] [phone] Phone: tel: fax: [facility] [address] [place] [phone] Phone: tel: Referral ID Status Reason Start Date Expiration Date Visits Re quested Visits Authorized [id number] 1 1 Encounter Details Date Type Department Care Team (Late st Contact Info) Description 07/31/2024 7:29 AM EDT Anesthesia Event [facility] [address] [place] [phone] Wilian Jefferson MD [address] [place] [phone] Ebenezer Madera MD [address] [place] [address] Anesthesia Record Procedure Summary Procedure Name Responsible Anesthesiologist Anesthesia Start Time Anesthesia Stop Time INSERTION, TUNNELED CENTRAL VENOUS DEVICE, WITH PORT Ronny, Wilian K, MD 07/31/24 0729 07/31/24 0919 Events Date [...] acknowledgement of understanding. 0919 An Stop Meds Name Total fentaNYL (Sublimaze) injection 50 mcg/mL 100 mcg lidocaine PF (Xylocaine-MPF) 2% 100 mg propofol (Diprivan) injection 10 mg/mL 2 00 mg rocuronium (ZeMuron) injection 10 mg/mL 110 mg dexamethasone (Decadron) injection 4 mg/ mL 8 mg phenylephrine (Yuriy-Synephrine) prefilled syringe 1 mg/10 mL 700 mcg ondansetron (Zofran) injection 2 mg/mL 4 mg sugammadex (Bridion) injection 100 mg/mL 200 mg ceFAZolin (Ancef) vial 1 g 3 g lactated Ringer's infusion 600 mL * Agents No agents on file. * Blood No blood administrations on file. Lines, Drains, and Airways Type Details Placement Removal Wound 07/31/24; 0811; N; Y es; Surgical; Open Surg; Chest; Left, Upper 07/31/24 0811 by Nayan Patel RN Peripheral IV Placement Date: 07/31/24; Placement Time: 35; Catheter Size: 18 G; Orientation: Left, Posterior; Location: Hand; Site Prep: Chlorhexidine ; Insertion Attempts: 1; Patient Tolerance: Tolerated well; Removal Date: 07/31/24; Removal Time: 1005; Removal Reason: Per protocol 07/31/24 0635 by Lynette Gotti RN 07/31/24 1005 by Rosalinda Pool RN ETT Placement Date: 07/31/24; Placement Time: 07 (created via procedure documentation); Mask Ventilation: 3; [...] Resident ; Removal Date: 07/31/24; Removal Time: 90907/31/24 0733 by Wilian Jefferson MD 07/31/24 0910 [...] of this encounter Miscellaneous Notes * Anesthesia Postprocedure Evaluation - Ebenezer Madera MD - 07/31/2024 9:19 AM EDT Patient: Nayan Womack Anesthesia Type: general Vitals Value Taken Time BP 142/77 07/31/24 09:15 Temp 97.6 07/31/24 09:19 Pulse 69 07/31/24 09:18 Resp 19 04/18/25 09:18 SpO2 95 % 07/31/24 09:18 Vitals shown include unfiled device data. Anesthesia Post Evaluation Patient location during evaluation: PACU Patient participation: complete - patient participated Level of consciousness: awake Pain management: adequate (pain score 0-3) Airway patency: natural airway Cardiovascular status: acceptable and hemodynamically stable Respiratory status: acceptable and blow-by oxygen Hydration status: acceptable Nausea/Vomiting: No No notable events documented. Cosigned by Wilian Jefferson MD at 07/31/2024 9:26 AM EDT Associated attestation - Wilian Jefferson MD - 07/31/2024 9:26 AM EDT I agree with the findings and care plan documented in the postprocedure evaluation note. * Anesthesia Procedure Notes - Wilian Jefferson MD - 07/31/2024 7:56 AM EDT Associated Order(s): Airway Airway Date/Time: 07/31/2024 7:33 AM Reason: elective Airway not difficult General Information and Staff Patient location during procedure: OR Anesthesiologist: Wilian Jefferson MD Resident: Ebenezer Madera MD Performed: Resident Patient Condition Indications for airway management: anesthesia Patient position: sniffing Final Airway Details Final airway type: endotracheal airway Successful airway: ETT Cuffed: yes Successful intubation technique: video laryngoscopy Adjuncts used in placement: intubating stylet Endotracheal tube insertion site: oral Blade: other Blade size: #4 ETT size (mm): 7.5 Placement verified by: chest auscultation and capnometry Measured from: lips ETT to lips (cm): 22 Other AttemptsUnsuccessful attempted airways: endotracheal tube Unsuccessful attempted endotracheal techniques: direct laryngoscopy Additional Comments Atraumatic. No change to dentition. Attempted DL with MAC 4 with grade 3 view, difficult bag mask due to acevedo, LMA placed to for oxygenation. Glidescope used on second attempt, grade 2a view with lopro 4. * Anesthesia Preprocedure Evaluation - Wilian Jefferson MD - 07/31/2024 6:42 AM EDT HPI Nayan Womack is a 59 y.o. male who presents with Pre-op Diagnosis * Metastatic colon cancer to liver (CMS/HCC) [C18.9, C78.7] now scheduled for INSERTION, TUNNELED CENTRAL VENOUS DEVICE, WITH PORT (N/A) with Farhad Castillo MD on 07/31/2024 in [facility]. Presented with abdominal pain and leukocytosis with [...] note. He represented to his medical oncologist ([facility]; Tayo Matthew) in April for follow up. CEA 4.8. And imaging showing liver lesions concerning for metastatic disease. Biopsy not performed as local IR did not feel the lesions were amenable to biopsy. He has not had a colonoscopy since his original operation. [Medical History] [Medical History] Past Medical History Diagnosis Date Diabetes (CMS/HCC) High blood pressure [Family History] [Family History] Problem Relation Name Age of Onset Other (paternal aunt breast cancer) Other Anesthesia problems Neg Hx Malig Hyperthermia Neg Hx [Social History] [Social History] Tobacco Use Smoking status: Never Smokeless tobacco: Never Vaping Use Vaping status: Never Used Substance Use Topics Alcohol use: Never Drug use: Never SURGICAL HISTORY: [Surgical History] [Surgical History] Past Surgical History Procedure Laterality Date APPENDECTOMY FOOT SURGERY Left surgery dur to diabetes LEG SURGERY Right surgery dur to diabetes [Allergies] [Allergies] No Known Allergies MEDICATIONS: Current Outpatient Medications: capecitabine, Take 3 [...] CAD, CHF, dyspnea, dysrhythmias, pacemaker or past [place]. hypertension: is well controlled. Does not have [...] RAYO phone screen with patient's sister and [facility] nurse Patient: Nayan Womack Procedure Information Date/Time: 07/31/24729 Procedure: INSERTION, TUNNELED CENTRAL VENOUS DEVICE, WITH PORT Location: [facility] [place] [facility] Surgeons: Farhad Castillo MD Relevant Problems /Renal (+) Metastatic colon cancer to liver (CMS/HCC) Anesthesia Evaluation Clinical information reviewed: Allergies NPO Status Physical Exam Airway Mallampati: III Mouth opening: normal TM distance: <3 FB Neck ROM: full Cardiovascular Rhythm: regular Rate: normal Dental - normal exam Pulmonary Breath sounds clear to auscultation Neurological Oriented: normal to time, normal to place and normal to person Skin Skin: warm and dry Musculoskeletal Extremities Anesthesia Plan ASA 3 Anesthesia technique(s) discussed with the patient/family: general Anesthesia plan agreed upon was: general Anesthetic plan and risks discussed with patient. Additional Equipment Requests documented in this encounter Plan of Treatment Upcoming Encounters Date Type Department Care Team (Late st Contact Info) Description 11/19/2024 8:30 AM EDT Appointment [facility] CT [address] [place] [address] 11/19/2024 11:15 AM EDT Office Visit [facility] Multidisciplinary Oncology Clinic [address] [place] [address] Farhad Castillo MD [address] [facility] [address] [place] [address] documented as of this encounter Procedures Procedure Name Priority Date/Time Associated Diagnosis Comments PB ANESTHESIA PLACEHOLDER Routine 07/31/2024 7:33 AM EDT DE AN ELECTIVE ENDOTRACHEAL AIRWAY Routine 07/31/2024 7:33 AM EDT documented in this encounter Results * DE AN ELECTIVE ENDOTRACHEAL AIRWAY, PB ANESTHESIA PLACEHOLDER (07/31/2024 7:33 AM EDT) Narrative Wilian Jefferson MD - 07/31/2024 7:33 AM EDT Wilian Jefferson MD 07/31/2024 8:03 AM Airway Date/Time: 07/31/2024 7:33 AM Reason: elective Airway not difficult General Information and Staff Patient location during procedure: OR Anesthesiologist: Wilian Jefferson MD Resident: Ebenezer Madera MD Performed: Resident Patient Condition Indications for airway management: anesthesia Patient position: sniffing Final Airway Details Final airway type: endotracheal airway Successful airway: ETT Cuffed: yes Successful intubation technique: video laryngoscopy Adjuncts used in placement: intubating stylet Endotracheal tube insertion site: oral Blade: other Blade size: #4 ETT size (mm): 7.5 Placement verified by: chest auscultation and capnometry Measured from: lips ETT to lips (cm): 22 Other AttemptsUnsuccessful attempted airways: endotracheal tube Unsuccessful attempted endotracheal techniques: direct laryngoscopy Additional Comments Atraumatic. No change to dentition. Attempted DL with MAC 4 with grade 3 view, difficult bag mask due to acevedo, LMA placed to for oxygenation. Glidescope used on second attempt, grade 2a view with lopro 4. us Wilian Jefferson MD ANESTHESIA ORDERABLES Final Res ult documented in this encounter Visit Diagnoses Not on filedocumented in this encounter Administered Medications Inactive Administered Medications - up to 3 most recent administrations Medication Order MAR Action Action Date Dose Rate Site ceFAZolin (Ancef) injection Intravenous, As needed, Starting on Sat07/31/24 at 0750, Until Sat07/31/24 at 09, Routine, Anesthesia Intraprocedure Given 07/31/2024 7:50 AM EDT 3 g dexamethasone (Decadron) injection Intravenous, As needed, Starting on Sat07/31/24 at 0832, Until Sat07/31/24 at 09, Routine, Anesthesia Intraprocedure Given 07/31/2024 8:32 AM EDT 8 mg fentaNYL (Sublimaze) injection Intravenous, As needed, Starting on Sat07/31/24 at 0732, Until Sat07/31/24 at 09, Routine, Anesthesia Intraprocedure Given 07/31/2024 7:32 AM EDT 100 mcg lactated Ringer's infusion Intravenous, Continuous PRN, Starting on Sat07/31/24 at 0729, Until Sat07/31/24 at 09, Routine New Bag 07/31/2024 7:29 AM EDT lidocaine PF (Xylocaine) 2 % injection Intravenous, As needed, Starting on Sat07/31/24 at 0732, Until Sat07/31/24 at 09, Routine, Anesthesia Intraprocedure Given 07/31/2024 7:32 AM EDT 100 mg ondansetron (Zofran) injection Intravenous, As needed, Starting on Sat07/31/24 at 0844, Until Sat07/31/24 at 09, Routine, Anesthesia Intraprocedure Given 07/31/2024 8:44 AM EDT 4 mg phenylephrine in NS (Yuriy-Synephrine) 100 mcg/mL prefilled syringe Intravenous, As needed, Starting on Sat07/31/24 at 0757, Until Sat07/31/24 at 0919, Routine, Anesthesia Intraprocedure Given 07/31/2024 8:51 AM EDT 100 mcg Given 07/31/2024 8:30 AM EDT 200 mcg Given 07/31/2024 8:21 AM EDT 200 mcg propofol (Diprivan) injection Intravenous, As needed, Starting on Sat07/31/24 at 0732, Until Sat07/31/24 at 0919, Routine, Anesthesia Intraprocedure Given 07/31/2024 7:32 AM EDT 200 mg rocuronium (ZeMuron) injection Intravenous, As needed, Starting on Sat07/31/24 at 0732, Until Sat07/31/24 at 0919, Routine, Anesthesia Intraprocedure Given 07/31/2024 8:14 AM EDT 20 mg Given 07/31/2024 8:04 AM EDT 20 mg Given 07/31/2024 7:32 AM EDT 70 mg sugammadex (Bridion) 100 MG/ML injection Intravenous, As needed, Starting on Sat07/31/24 at 0906, Until Sat07/31/24 at 0919, Routine, Anesthesia Intraprocedure Given 07/31/2024 9:06 AM EDT 200 mg documented in this encounter Additional Health Concerns Assessment Noted Time A fall risk assessment has been complete d for the patient 07/23/2024 8:54 AM EDT A Body Mass Index follow-up plan has been documented for the patient 07/24/2024 8:25 AM EDT documented as of this encounter Care Teams Absorption Operator Relationship Specialty Start Date End Date Tayo Jones MD [address] [place] [address] PCP - General 07/14/24 documented as of this encounter
--- OUTSIDE RECORDS SUMMARY | 2024-07-31 07:30 | XMS_ITS | Encounter Summary ---
Author Organization [facility] Address [address] [place] [address] Care Team Providers Care Gyn Name Role Phone Tayo Jones MD Primary Care Provider [phone] Reason for Visit * Auth/Cert (Routine) Specialty Diagnoses / Procedures Referred By Samia pagan Referred To Contact Diagnoses Metastatic colon cancer to liver (CMS/HCC) Metastatic colon cancer to liver (CMS/HCC) [C18.9, C78.7] Procedures MS INSERT TUNNELED CV CATH WITH PORT CHG FLUOROGUIDE CNTRL LYNN ACCESS,PLACE,REPLACE,REMOVE INSERTION, TUNNELED CENTRAL VENOUS DEVICE, WITH PORT Farhad Castillo MD [address] [place] [phone] Phone: tel: fax: [facility] [address] [place] [phone] Phone: tel: Referral ID Status Reason Start Date Expiration Date Visits Re quested Visits Authorized [id number] 1 1 Encounter Details Date Type Department Care Team (Late st Contact Info) Description 07/31/2024 7:30 AM EDT - 07/31/2024 9:00 AM EDT Surgery [facility] [address] [place] [phone] Farhad Castillo MD [address] [place] [phone] INSERTION, TUNNELED CENTRAL VENOUS DEVICE, WITH PORT [59935 (CPT )] Surgery Details Date/Time Status Location OR Service Patient Class Case Class Case Type Trauma Case? 07/31/2024 7:30 AM Posted [facility] Outpatient Surgery E-Electi ve [...] AM EDT Operative Note Date: 07/31/24 Location: [facility] Name: Nayan Womack, : 1965, Diagnoses: Pre-op Diagnosis Metastatic colon cancer to liver (CMS/HCC) Post-op Diagnosis Metastatic colon cancer to liver (CMS/HCC) Procedure(s): Left Subclavian Vein 8-Divehi Single Lumen PORT Placement with Fluoroscopic Guidance Attending Surgeon(s): * Farhad Castillo - Primary Membership Sales Representative(s): * Logan Mitchell MD - Resident - Assisting Anesthesia: General ASA: III Blood Administration: Blood Product Administration History None Estimated Blood Loss: Minimal Drains: * None in log * Implants Type Name Action Serial No. Other Medication Pump PORT CLEARVUE POWER 8FR - S. - [id number] Implanted . Specimen: Findings: Left subclavian vein [...] his sister who is his power of assembler final. Patient was brought to the operating room [...] pocket in order to accommodate an 8 Divehi single-lumen port. 2-0 Prolene stay sutures were [...] Info) Description 11/19/2024 8:30 AM EDT Appointment [facility] [address] [place] [address] 11/19/2024 11:15 AM EDT Office Visit [facility] Multidisciplinary Oncology Clinic [address] [place] [address] Farhad Castillo MD [address] [facility] [address] [place] [address] documented as of this encounter Procedures Procedure Name Priority Date/Time Associated Diagnosis Comments XR CHEST 1 VIEW STAT 07/31/2024 9:42 AM EDT POCT GLUCOSE METER UNSOLICITED RESULTS Routine 07/31/2024 9:31 AM EDT FL LESS THAN 1 HOUR (NON-REPORTABLE) Routine 07/31/2024 8:59 AM EDT MS INSERT TUNNELED CV CATH WITH PORT 07/31/2024 [...] 07/31/2024 2:28 PM EDT [facility] Pathology Laboratory Technologist ID Rosalinda Pool 08/01/19 25 2:28 PM EDT [facility] Device ID [id number] 07/31/2024 2:28 PM EDT [facility] Specimen Type POC Capillary 07/31/2024 2:28 PM EDT [facility] Blood Capillary blood specimen / Unknown 07/31/2024 9:31 AM EDT 07/31/2024 2:28 PM EDT Farhad Casitllo MD LAB POINT OF CARE TEST DOCKED DEVICE UNSOLICITED RESULTS Final Result Performing Organization Address City/[facility]/ZIP Co de Phone Number [facility] [address] [place] [address] * [place] Less than 1 Hour Intraoperative (07/31/2024 8:59 AM EDT) Narrative IMAGING - 07/31/2024 8:59 AM EDT Images were obtained for surgical purposes. See Farhad Castillo's surgical note in the patient's chart for the findings. Farhad Castillo MD IMG FLUOROSCOPY PROCEDURES Final Result Performing Organization Address [facility] Co de Phone Number IMAGING * [...] 07/31/2024 6:44 AM EDT [facility] Pathology Laboratory Technologist ID Lynette Gotti 6:44 AM EDT [facility] Device ID [id number] 07/31/2024 6:44 AM EDT [facility] Specimen Type POC Venous 07/31/2024 6:44 AM EDT [facility] Blood Venous blood specimen / Unknown 07/31/2024 6:39 AM EDT 07/31/2024 6:44 AM EDT Farhad Castillo MD LAB POINT OF CARE TEST DOCKED DEVICE UNSOLICITED RESULTS Final Result Performing Organization Address City/[facility]/ZIP Co de Phone Number [facility] [address] [place] [address] documented in this encounter Visit Diagnoses Diagnosis [...] of 10 bupivacaine-EPINEPHrine PF (Marcaine w/EPI) 0.25% -1:225528 injection As needed, Starting on Sat07/31/24 at [...] - Preprocedure 0644 (Given - Provid er: yLnette Gotti, JAN) Povidone-Iodine 5 % swab solution [...] of 10 bupivacaine-EPINEPHrine PF (Marcaine w/EPI) 0.25% -1:611789 injection (CANCELED) As needed, Starting on Sat07/31/24 [...] documented as of this encounter Care Teams Gyn Relationship Specialty Start Date End Date Tayo Jones MD [address] [place] [address] PCP - General 07/14/24 documented as of this encounter
[2024-09-22] VITALS (7 sets, daily range): BP systolic 111–124; BP diastolic 51–68; PULSE 61–69; RESP 18; TEMP 36.7; O2SAT 99; BMI 37.2
--- OUTSIDE RECORDS SUMMARY | 2024-09-22 08:52 | XMS_ITS | Encounter Summary ---
Author Organization Healthcare Address [address] [id number] Care Team Providers Care Anatomic Pathology Assistant Name Role Phone Tayo Jones MD Primary Care Provider [phone] Encounter Details Date Type Department Care Team (Late st Contact Info) Description 07/27/2024 Telephone [facility] [address] [place] [address] Farhad Castillo MD [address] [phone] Social History Tobacco Use Types Packs/Day Years [...] as of this encounter Miscellaneous Notes * Telephone Encounter - Audrey Berrios LPN - 07/27/2024 1:32 PM EDT Called Jamee back and let her know that arrival time will be at 6 am and also faxed over preop surgery instructions to * Telephone Encounter - Katty Easley - 07/27/2024 10:01 AM EDT Patient Phone Message Reason for Call: Jamee calling to say patient is to have a port placed on Saturday and she is needing to know what timeso she can arrange for transportation. She has to have 3 days notice for transportation. Best contact number and optimal time of day to reach caller: [phone] ext [phone] Note: Please do not reply to this message. Follow-up communication and further actions as a result of this message need to be communicated with the patient directly, if the patient is not active onMyChart. If the patient is active on MyChart, they will receive notification of the communication/outcome via MyChart. documented in this encounter Plan of Treatment Upcoming Encounters Date Type Department Care Team (Late st Contact Info) Description 11/19/2024 8:[address] [facility] [address] [place] [address] 11/19/2024 11:15 AM EDT Office Visit [facility] Multidisciplinary Oncology Clinic [address] [place] [address] Farhad Castillo MD [address] [address] documented as of this encounter Visit Diagnoses Not on filedocumented in this encounter Additional Health Concerns Assessment Noted Time A fall risk assessment has been complete d for the patient 07/23/2024 8:54 AM EDT A Body Mass Index follow-up plan has been documented for the patient 07/24/2024 8:25 AM EDT documented as of this encounter Care Teams Anatomic Pathology Assistant Relationship Specialty Start Date End Date Tayo Jones MD [address] [place] [address] PCP - General 07/14/24 documented as of this encounter
--- OUTSIDE RECORDS SUMMARY | 2024-09-22 08:52 | XMS_ITS ---
Author Organization [facility] Address [address] [id number] Care Team Providers Care Technology Strategist Name Role Phone Tayo Jones MD Primary Care Provider [phone] Active Problems Problem Noted Date Diagnosed Date Obesity (BMI 35.0-39.9 without comorbidity) 07/14 Metastatic colon cancer to liver 07/23/2024 Current Treatment and Therapy Plans No current plan information found. Past Treatment and Therapy Plans No past plan information found. Lifetime Dose Tracking * Chemical Lifetime Dose Automatic Entry Manual Entr y Fluoro Time 0.797 minutes 0.797 minutes 0 minutes Air Kerma 9.2 mGy 9.2 mGy 0 mGy
--- OUTSIDE RECORDS SUMMARY | 2024-09-22 08:52 | XMS_ITS | Encounter Summary ---
Author Organization [facility] Address [address] [place] [address] Care Team Providers Care Plater Production Name Role Phone Tayo Jones MD Primary Care Provider [phone] Encounter Details Date Type Department Care Team (Latest Contact Info) Description 07/27/2024 Travel Social History Tobacco Use Types Packs/Day Years [...] on file documented as of this encounter Plan of Treatment Upcoming Encounters Date Type Department Care Team (Late st Contact Info) Description 11/19/2024 8:30 AM EDT Appointment [facility] [address] [place] [address] 11/19/2024 11:15 AM EDT Office Visit [facility] Multidisciplinary Oncology Clinic [address] [place] [address] Farhad Castillo MD [address] [phone] documented as of this encounter Visit Diagnoses Not on filedocumented in this encounter Additional Health Concerns Assessment Noted Time A fall risk assessment has been complete d for the patient 07/23/2024 8:54 AM EDT A Body Mass Index follow-up plan has been documented for the patient 07/24/2024 8:25 AM EDT documented as of this encounter Care Teams Plater Production Relationship Specialty Start Date End Date Tayo Jones MD [address] [place] [address] PCP - General 07/14/24 documented as of this encounter
--- OUTSIDE RECORDS SUMMARY | 2024-09-22 08:52 | XMS_ITS | Encounter Summary ---
Author Organization [facility] Address [address] [place] [address] Care Team Providers Care Cnc Maintenance Technician Name Role Phone Tayo Jones MD Primary Care Provider [phone] Encounter Details Date Type Department Care Team (Late Contact Info) Description 01/15/2023 Orders Only External Location [address] [place] [address] Provider, External Social History Tobacco Use Types Packs/Day Years Used Date Smoking Tobacco: Never Assessed Sex and Gender Information Value Date Recorded Sex Assigned at Male 07/31/2024 7:25 AM EDT Legal Sex Male 12:34 PM EDT Gender Identity Male 07/31/2024 7:25 AM EDT Sexual Orientation Not on file documented as of this encounter Plan of Treatment Upcoming Encounters Date Type Department Care Team (Late st Contact Info) Description 11/19/2024 8:30 AM EDT Appointment [facility] [address] [place] [address] 11/19/2024 11:15 AM EDT Office Visit [facility] Multidisciplinary Oncology Clinic [address] [place] [address] Farhad Castillo MD [address] [phone] documented as of this encounter Procedures Procedure Name Priority Date/Time Associated Diagnosis Comments CT THORACIC OUTSIDE IMAGES 01/15/2023 9:37 AM EDT documented in this encounter Results * CT THORACIC OUTSIDE IMAGES (01/15/2023 9:37 AM EDT) Anatomical Region Laterality Modality Computed Tomogra phy 01/15/2023 9:37 AM EDT us External Provider IMG CT PROCEDURES Final Result documented in this encounter Visit Diagnoses Not on filedocumented in this encounter Care Teams Cnc Maintenance Technician Relationship Specialty Start Date End Date Tayo Jones MD [address] [phone] PCP - General 07/14/24 documented as of this encounter
--- OUTSIDE RECORDS SUMMARY | 2024-09-22 08:52 | XMS_ITS | Encounter Summary ---
Author Organization [facility] Address [address] [place] [address] Care Team Providers Care Inkjet Operator Name Role Phone Tayo Jones MD Primary Care Provider Encounter Details Date Type Department Care Team (Late Contact Info) Description 05/06/2024 Orders Only External Location [address] [place] [address] Provider, External Social History Tobacco Use Types [...] Info) Description 11/19/2024 8:30 AM EDT Appointment [facility] [address] [place] [address] 11/19/2024 11:15 AM EDT Office Visit [facility] Multidisciplinary Oncology Clinic [address] [place] [address] Farhad Castillo MD [address] [phone] documented as of this encounter Procedures Procedure Name Priority Date/Time Associated Diagnosis Comments CT THORACIC OUTSIDE IMAGES 05/06/2024 10:37 AM EST documented in this encounter Results * CT THORACIC OUTSIDE IMAGES (05/06/2024 10:37 AM EST) Anatomical Region Laterality Modality Computed Tomogra phy 05/06/2024 10:3 7 AM EST us External Provider IMG CT PROCEDURES Final Result documented in this encounter Visit Diagnoses Not on filedocumented in this encounter Care Teams Inkjet Operator Relationship Specialty Start Date End Date Tayo Jones MD [address] [phone] PCP - General 07/14/24 documented as of this encounter
--- OUTSIDE RECORDS SUMMARY | 2024-09-22 08:52 | XMS_ITS | Encounter Summary ---
Author Organization Healthcare Address [address] [place] [address] Care Team Providers Care Remarketing Rep Name Role Phone Tayo Jones MD Primary Care Provider Encounter Details Date Type Department Care Team ([facility] st Contact Info) Description 07/23/2024 Telephone [facility] [address] [place] [address] Farhad Castillo MD [address] [phone] Social History Tobacco Use Types Packs/Day Years [...] Key[place] Day documented as of this encounter Miscellaneous Notes * Telephone Encounter - Kevin Blandonchaya Clark - 07/23/2024 3:28 PM EDT Patient Phone Message Reason for Call: Jamee calling from [facility] for [place] I was able to transfer her call to [facility] Best contact number and optimal time of day to reach caller: Note: Please do not reply to this message. Follow-up communication and further actions as a result of this message need to be communicated with the patient directly, if the patient is not active onMyChart. If the patient is active on MyChart, they will receive notification of the communication/outcome via [employer]. documented in this encounter Plan of Treatment Upcoming Encounters Date Type Department Care Team (Late st Contact Info) Description 11/19/2024 8:30 AM EDT Appointment [facility] [address] [place] [address] 11/19/2024 11:15 AM EDT Office Visit [facility] Multidisciplinary Oncology Clinic [address] [place] [address] Farhad Castillo MD [address] [phone] documented as of this encounter Visit Diagnoses Not on filedocumented in this encounter Additional Health Concerns Assessment Noted Time A fall risk assessment has been complete d for the patient 07/23/2024 8:54 AM EDT A Body Mass Index follow-up plan has been documented for the patient 07/24/2024 8:25 AM EDT documented as of this encounter Care Teams Remarketing Rep Relationship Specialty Start Date End Date Tayo Jones MD [address] [place] [address] PCP - General 07/14/24 documented as of this encounter
--- OUTSIDE RECORDS SUMMARY | 2024-09-22 08:52 | XMS_ITS | Encounter Summary ---
Author Organization [facility] Address [address] [place] [address] Care Team Providers Care Manager Qa Name Role Phone Tayo Jones MD Primary Care Provider [phone] Encounter Details Date Type Department Care Team (Late Contact Info) Description 07/16/2024 Lab Requisition [facility] [address] [place] [address] Farhad Castillo MD [address] [address] Other acute appendicitis without perforation or gangrene Social History Tobacco Use Types Packs/Day Years Used Date Smoking Tobacco: Never Assessed Sex and Gender Information Value Date Recorded Sex Assigned at Male 07/31/2024 7:25 AM EDT Legal Sex Male 12:34 PM EDT Gender Identity Male 07/31/2024 7:25 AM EDT Sexual Orientation Not on file documented as of this encounter Plan of Treatment Upcoming Encounters Date Type Department Care Team (Late Contact Info) Description 11/19/2024 8:30 AM EDT Appointment [facility] [address] [place] [address] 11/19/2024 11:15 AM EDT Office Visit [facility] Multidisciplinary Oncology Clinic [address] [place] [address] Farhad Castillo MD [address] [address] documented as of this encounter Procedures Procedure Name Priority Date/Time Associated Diagnosis Comments SURGICAL PATHOLOGY CONSULT Routine 07/16/2024 1:13 PM EDT Other acute appendicitis without perforation or gangrene documented in this encounter Results * Surgical Pathology Consult (07/16/2024 1:13 PM EDT) Case Report Sugical Pathology Consult Case: [id number] Authorizing Provider: Farhad Castillo MD Collected: 07/16/2024 1313 Ordering Location: [facility] Lab Received: 07/16/2024 1313 Pathologist: Constance Murphy MD Specimen: Colon, [id number] 07/17/2024 1:08 PM EDT [facility] Final Diagnosis RIGHT COLON AND TERMINAL ILEUM, RIGHT HEMICOLECTOMY ([id number]; 11/09/2022): - 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 - TUMOR BUDDING SCORE: HIGH (10 OR GREATER). - NO TUMOR SEEN IN TWENTY ONE LYMPH NODES (0/21). 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 07/17/2024 1:08 PM EDT [facility] Clinical Information K35.890 - Other acute appendicitis without perforation or gangrene [ICD-10-CM] 07/17/2024 1:08 PM EDT [facility] Gross Description A. [id number] Received along with a corresponding pathology report from [facility] are 29 slides labeled outside case: [id number] collected on 11/09/2022. 07/17/2024 1:08 PM EDT [facility] Note: A resident was involved in the service. I attest I examined the relevant preparations for the specimens and confirmed the diagnosis or interpretation. 07/17/2024 1:08 PM EDT [facility] Tissue Colon structure / Unknown 07/16/2024 1:13 PM EDT 07/16/2024 1:13 PM EDT us Farhad Castillo MD LAB PATHOLOGY ORDERABLES F inal Result [facility] [address] [place] [address] documented in this encounter Visit Diagnoses Diagnosis Other acute appendicitis without perforation or gangrene documented in this encounter Care Teams Manager Qa Relationship Specialty Start Date End Date Tayo Jones MD [address] [place] [address] PCP - General 07/14/24 documented as of this encounter
--- OUTSIDE RECORDS SUMMARY | 2024-09-22 08:52 | XMS_ITS | Encounter Summary ---
Author Organization Healthcare Address [address] [place] [address] Care Team Providers Care Tourist Information Officer Name Role Phone Tayo Jones MD Primary Care Provider [phone] Encounter Details Date Type Department Care Team (Late Contact Info) Description 01/24/2023 Orders Only External Location [address] [place] [address] Sue Pope MD [address] [place] [address] [id number] Social History Tobacco Use Types Packs/Day Years [...] Info) Description 11/19/2024 8:30 AM EDT Appointment [facility] [address] [place] [address] 11/19/2024 11:15 AM EDT Office Visit [facility] Multidisciplinary Oncology Clinic [address] [place] [address] Farhad Castillo MD [address] [address] documented as of this encounter Procedures Procedure Name Priority Date/Time Associated Diagnosis Comments CT OUTSIDE IMAGES 01/24/2023 9:34 AM EDT documented in this encounter Results * CT OUTSIDE IMAGES (01/24/2023 9:34 AM EDT) Anatomical Region Laterality Modality Computed Tomogra phy 01/24/2023 9:34 AM EDT Sue Pope MD IMG CT PROCEDURES Final Result documented in this encounter Visit Diagnoses Not on filedocumented in this encounter Care Teams Tourist Information Officer Relationship Specialty Start Date End Date Tayo Jones MD [address] [phone] PCP - General 07/14/24 documented as of this encounter
--- OUTSIDE RECORDS SUMMARY | 2024-09-22 08:52 | XMS_ITS | Encounter Summary ---
Author Organization [facility] Address [address] [place] [address] Care Team Providers Care Pad Machine Offbearer Name Role Phone Tayo Jones MD Primary Care Provider [phone] Encounter Details Date Type Department Care Team (Late Contact Info) Description 05/06/2024 Orders Only External Location [address] [place] [address] Provider, External Social History Tobacco Use Types [...] 11/19/2024 8:30 AM EDT Appointment [facility] [address] [place] [address] 11/19/2024 11:15 AM EDT Office Visit [facility] Multidisciplinary Oncology Clinic [address] [place] [address] Farhad Castillo MD [address] [phone] documented as of this encounter Procedures Procedure [...] on filedocumented in this encounter Care Teams Pad Machine Offbearer Relationship Specialty Start Date End Date Tayo Jones MD [address] [phone] PCP - General 07/14/24 documented as of this encounter
--- OUTSIDE RECORDS SUMMARY | 2024-09-22 08:52 | XMS_ITS | Encounter Summary ---
Author Organization Healthcare Address [address] [place] [address] Care Team Providers Care Tire Shop Manager Name Role Phone Tayo Jones MD Primary Care Provider Encounter Details Date Type Department Care Team (Late Contact Info) Description 06/15/2024 Orders Only External Location [address] [place] [address] Provider, External Social History Tobacco Use Types [...] Info) Description 11/19/2024 8:30 AM EDT Appointment [facility] [address] [place] [address] 11/19/2024 11:15 AM EDT Office Visit [facility] Multidisciplinary Oncology Clinic [address] [place] [address] Farhad Castillo MD [address] [phone] documented as of this encounter Procedures Procedure Name Priority Date/Time Associated Diagnosis Comments PET OUTSIDE IMAGES 06/15/2024 11:07 AM EST documented in this encounter Results * PET OUTSIDE IMAGES (06/15/2024 11:07 AM EST) Anatomical Region Laterality Modality Nuclear Medicine 06/15/2024 11:0 7 AM EST us External Provider IMG NM PROCEDURES Final Result documented in this encounter Visit Diagnoses Not on filedocumented in this encounter Care Teams Tire Shop Manager Relationship Specialty Start Date End Date Tayo Jones MD [address] [place] [address] PCP - General 07/14/24 documented as of this encounter
--- OUTSIDE RECORDS SUMMARY | 2024-09-22 08:52 | XMS_ITS | Clinical Summary ---
Author Organization [facility] Address [address] [place] [address] Care Team Providers Care Boring Inspector Name Role Phone Tayo Jones MD Primary Care Provider [phone] Allergies No known active allergies Medications carvedilol (Coreg) 12.5 MG tablet Take by mouth in the morning and in the evening. Take with meals. 07/30/2023 Active ferrous sulfate 325 (65 Fe) MG EC tablet 08/12/2023 Active insulin lispro (Admelog, HumaLOG) 100 UNIT/ML injection pen Inject 10 Units under the skin 3 (three) times a day with meals. 08/01/2023 Active Lantus SoloStar 100 UNIT/ML injection pen Inject 35 Units under the skin nightly. 05/29/2024 Active ondansetron (Zofran) 4 MG tablet 04/19/2024 Active spironolactone (Aldactone) 25 MG tablet Take 1 tablet by mouth daily. 07/11/2024 Active capecitabine (Xeloda) 500 MG chemo tablet Take 3 tablets (1,500 mg total) by mouth 2 (two) times a day. Swallow whole with water. Do not crush or cut. Active amLODIPine (Norvasc) 5 MG tablet Take 1 tablet by mouth in the morning. Active Multiple Vitamin (multivitamin) tablet Take 1 tablet by mouth daily. Active lisinopril-hydr oCHLOROthiazide 20-25 MG tablet Take 1 tablet by mouth daily. Active Quercetin 500 MG capsule Take 2 tablets by mouth daily. Active acetaminophen (Tylenol) 500 MG tablet Take 1 tablet by mouth every 6 hours as needed for pain. 50 tablet 07/31/2024 Active Active Problems Problem Noted Date Diagnosed Date Obesity (BMI 35.0-39.9 without comorbidity) 07/14 Metastatic colon cancer to liver 07/23/2024 Encounters Date Type Department Care Team Description 08/03/2024 Orders Only [facility] [address] [place] [address] Farhad Castillo MD Metastatic colon cancer to liver (CMS/HCC) (Primary Dx) 07/31/2024 7:30 AM EDT - 07/31/2024 9:00 AM EDT Surgery [facility] [address] [place] [address] Farhad Castillo MD INSERTION, TUNNELED CENTRAL VENOUS DEVICE, WITH PORT [98516 (CPT )] 07/31/2024 7:29 AM EDT Anesthesia Event [facility] [address] [place] [phone] Wilian Jefferson MD Latham, Jeremy J, MD 07/31/2024 5:40 AM EDT - 07/31/2024 10:10 AM EDT Hospital Encounter [facility] [address] [place] [address] Farhad Castillo MD Metastatic colon cancer to liver (CMS/HCC) [C18.9, C78.7] (Primary Dx) Discharge Disposition: Home or Self Care 07/31/2024 Travel 07/29/2024 Telephone [facility] [address] [place] [phone] Farhad Castillo MD 07/27/2024 10:00 AM EDT Pre-Admission Testing [facility] Pre-op Clinic [address], [address] [place] [address] 07/27/2024 Telephone [facility] [address] [place] [address] Farhad Castillo MD 07/27/2024 Telephone [facility] [address] [place] [phone] Farhad Castillo MD 07/27/2024 Travel 07/23/2024 11:10 AM EDT - 07/23/2024 11:59 PM EDT Hospital Encounter [facility] [address] [place] [address] Metastatic colon cancer to liver (CMS/HCC) Discharge Disposition: Home or Self Care 07/23/2024 8:30 AM EDT Office Visit [facility] [address] [place] [phone] Farhad Castillo MD Metastatic colon cancer to liver (CMS/HCC) (Primary Dx) 07/23/2024 Telephone [facility] [address] [place] [phone] Farhad Castillo MD 07/23/2024 Travel 07/16/2024 Lab Requisition [facility] [address] [place] [phone] Farhad Castillo MD Other acute appendicitis without perforation or gangrene from Last 3 Months Family History Medical History Relation Name Comments paternal aunt breast cancer Other Anesthesia problems Neg Hx Malig Hyperthermia Neg Hx Relation Name Status Comments Other Social History Tobacco Use Types Packs/Day Years Used Date Smoking Tobacco: Never Smokeless Tobacco: Never Tobacco Cessation:Counseling Given: Not Answered Alcohol Use Standard Drinks/Week Comments Never 0 (1 standard drink = 0.6 oz pur e alcohol) PHQ-2 Answer Date Recorded Patient Health Questionnaire-2 Score 0 07/23/2024 Sex and Gender Information Value Date Recorded Sex Assigned at Male 07/31/2024 7:25 AM EDT Legal Sex Male 12:34 PM EDT Gender Identity Male 07/31/2024 7:25 AM EDT Sexual Orientation Not on file Last Filed Vital Signs Vital Sign Reading Time Taken Comments Blood Pressure 133/78 07/31/2024 9:45 AM EDT Pulse 65 07/31/2024 10:00 AM EDT Temperature 36.4 C (97.6 F) 07/31/2024 9:45 AM EDT Respiratory Rate 18 07/31/2024 10:00 AM EDT Oxygen Saturation 98% 07/31/2024 10:00 AM EDT Inhaled Oxygen Concentration - - Weight 120 kg (264 lb 8.8 oz) 07/23/2024 8:46 AM EDT Height 175.3 cm (5' 9 ) 07/23/2024 8:46 AM EDT Body Mass Index 39.07 07/23/2024 8:46 AM EDT Plan of Treatment Upcoming Encounters Date Type Department Care Team (Late st Contact Info) Description 11/19/2024 8:30 AM EDT Appointment [facility] [address] [place] [address] 11/19/2024 11:15 AM EDT Office Visit [facility] Mult[facility]isciplinary Oncology Clinic [address] [place] [address] Farhad Castillo MD [address] [address] Health Maintenance Due Date Last Done Comments [facility]-HIV Screening 1964 [facility]-Hepatitis C Screening 1964 [facility]-/Child/Adol SDOH Screenings 1964 Diabetes: Dental Exam 1974 [facility]- SDOH Screenings 1982 [facility]-Adult SDOH Screenings 1982 [facility]-DTaP,Tdap,and Td Vaccines (1 - Tdap) 1983 [facility]-Hepatitis A Vaccines (1 of 2 - Risk 2-dose series) 1983 [facility]-Pneumococcal Vaccine: 50+ Years (1 of 2 - PCV) 1983 [facility]-Zoster Vaccines (1 of 2) 1983 [id number] Vaccine ( season) 2023 01/15/2022, 03/28/2021, 07/27/2020, Additional history exists [facility]-RSV Vaccine: 60+ Years or (1 - Risk 60-74 years 1-dose series) 2024 [facility]-Diabetes: Hemoglobin A1C 10/22/2024 07/23/2024 [facility]-Influenza Vaccine (Season Ended) 2024 [facility]-Depression Screening 07/23/2025 07/23/2024 [facility]-Obesity Intervention Completed 07/23/2024 HPV Vaccines Aged Out No longer eligi ble based on patient's age to complete this topic [facility]-HIB Vaccines Aged Out No longer e ligible based on patient's age to complete this topic [facility]-IPV Vaccines Aged Out No longer e ligible based on patient's age to complete this topic [facility]-Rotavirus Vaccines Aged Out No lo nger eligible based on patient's age to complete this topic Medical Devices Implanted Type Area Superintendent Cemetery Device Identifier Shelf Expiration Date Model / Serial / Lot Port Clearvue Power 8fr - S. - [id number] Implanted:Qty : 1 on 07/31/2024 by Farhad Castillo MD at [facility] Other Medication Pump Left: Chest [id number] 07/13/2025 [id number] / . / [id number] Procedures Procedure Name Priority Date/Time Associated Diagnosis Comments XR CHEST 1 VIEW STAT 07/31/2024 9:42 AM EDT POCT GLUCOSE METER UNSOLICITED RESULTS Routine 07/31/2024 9:31 AM EDT FL LESS THAN 1 HOUR (NON-REPORTABLE) Routine 07/31/2024 8:59 AM EDT PB ANESTHESIA PLACEHOLDER Routine 07/31/2024 7:33 AM EDT HI AN ELECTIVE ENDOTRACHEAL AIRWAY Routine 07/31/2024 7:33 AM EDT HI INSERT TUNNELED CV CATH WITH PORT 07/31/2024 7:13 AM EDT Metastatic colon cancer to liver (CMS/HCC) Special Needs requires fluoro and C-arm capable bed POCT GLUCOSE METER UNSOLICITED RESULTS Routine 07/31/2024 6:[address] ABDOMEN PELVIS W IV CONTRAST STAT 07/23/2024 12:01 PM EDT Metastatic colon cancer to liver (CMS/HCC) CT CHEST W IV CONTRAST STAT 07/23/2024 12:01 PM EDT Metastatic colon cancer to liver (CMS/HCC) HEMOGLOBIN A1C Routine 07/23/2024 10:36 AM EDT Metastatic colon cancer to liver (CMS/HCC) CEA, SERUM Routine 07/23/2024 10:36 AM EDT Metastatic colon cancer to liver (CMS/HCC) APTT Routine 07/23/2024 10:36 AM EDT Metastatic colon cancer to liver (CMS/HCC) PROTHROMBIN TIME(PT) / INR Routine 07/23/2024 10:36 AM EDT Metastatic colon cancer to liver (CMS/HCC) PREALBUMIN, PLASMA Routine 07/23/2024 10 :36 AM EDT Metastatic colon cancer to liver (CMS/HCC) COMPREHENSIVE METABOLIC PANEL, PLASMA Routine 07/23/2024 10:36 AM EDT Metastatic colon cancer to liver (CMS/HCC) CBC W/O DIFFERENTIAL Routine 07/23/2024 10:36 AM EDT Metastatic colon cancer to liver (CMS/HCC) SURGICAL PATHOLOGY CONSULT Routine 07/16/2024 1:13 PM EDT Other acute appendicitis without perforation or gangrene from Last 3 Months Results * XR Chest 1 View (07/31/2024 [...] POCT glucose meter (07/31/2024 9:31 AM EDT) Only the most recent of2 resultswithin the time period is included. POCT Glucose 127(H) 74 - 99 mg/dL [...] 07/31/2024 2:28 PM EDT [facility] Baby Stroller Rental Clerk ID Rosalinda Pool 08/01/19 2:28 PM EDT [facility] Device ID [id number] 07/31/2024 2:28 PM EDT [facility] Specimen Type POC Capillary 07/31/2024 2:28 PM EDT [facility] Blood Capillary blood specimen / Unknown 07/31/2024 9:31 AM EDT 07/31/2024 2:28 PM EDT Farhad Castillo MD LAB POINT OF CARE TEST DOCKED DEVICE UNSOLICITED RESULTS Final Result [facility] [address] [place] [id number] * FL Less than 1 Hour Intraoperative (07/31/2024 8:59 AM EDT) Narrative IMAGING - 07/31/2024 8:59 AM EDT Images were obtained for surgical purposes. See Farhad Castillo's surgical note in the patient's chart for the findings. Farhad Castillo MD IMG FLUOROSCOPY PROCEDURES Final Result IMAGING * HI AN ELECTIVE ENDOTRACHEAL AIRWAY, PB ANESTHESIA PLACEHOLDER [...] attempt, grade 2a view with lopro 4. Result [facility] Wilian Jefferson MD ANESTHESIA ORDERABLES Final Res ult * CT Abdomen Pelvis w IV Contrast [...] Total DLP (Dose-Length Product): 2037.69 mGy.cm (accession [id number]), 2037.69 mGy.cm (accession [id number]) Please note: The reported value represents the [...] Total DLP (Dose-Length Product): 2037.69 mGy.cm (accession [id number]),2037.69 mGy.cm (accession [id number]) Please note: The reported valuerepresents the total [...] Total DLP (Dose-Length Product): 2037.69 mGy.cm (accession [id number]), 2037.69 mGy.cm (accession [id number]) Please note: The reported value represents the [...] Total DLP (Dose-Length Product): 2037.69 mGy.cm (accession [id number]),2037.69 mGy.cm (accession [id number]) Please note: The reported valuerepresents the total [...] No new or enlarging adenopathy when compared toJan2024. There are a few mildly enlarged and [...] Alyssia Dick MD on 07/23/2024 2:29 PM us Farhad Castillo MD IM CT PROCEDURES Final Re sult * (ABNORMAL) APTT (07/23/2024 10:36 AM EDT) aPTT 24(L) 25 - 35 sec LAB COAGULATION METHOD 07/23/2024 11:15 AM EDT [facility] Blood Venous blood specimen / Unknown Venipuncture / Unknown 07/23/2024 10:36 AM EDT 07/23/2024 10:54 AM EDT Farhad Castillo MD LAB BLOOD ORDERABLES Final Result Performing Organization Address [facility] Co de Phone Number [facility] [address] [place] [address] * (ABNORMAL) Prothrombin Time/INR (07/23/2024 10:36 AM EDT) Prothrombin Time 14.6(H) 12.0 - 14.3 sec LAB COAGULATION METHOD 07/23/2024 11:15 AM EDT [facility] INR 1.1 0.9 - 1.1 LAB COAGULATION METHOD 07/23/2024 11:15 AM EDT [facility] Blood Venous blood specimen / Unknown Venipuncture / Unknown 07/23/2024 10:36 AM EDT 07/23/2024 10:54 AM EDT Narrative [facility] - 07/23/2024 11:15 AM EDT OPTIMAL INR RANGES FOR PATIENT ON ORAL ANTICOAGULANT THERAPY Prevention of venous thromboembolism INR 2.0 to 3.0 In patients with heart disease: Atrial fibrillation INR 2.0 to 3.0 Valvular heart disease INR 2.0 to 3.0 Tissue heart valves INR 2.0 to 3.0 Mechanical prosthetic valves INR 2.5 to 3.5 Prevention of recurrent [place] INR 2.5 to 3.5 us Farhad Castillo MD LAB BLOOD ORDERABLES Final Result Performing Organization Address City/[facility]/ZIP Co de Phone Number [facility] [address] [place] [address] * (ABNORMAL) CBC W/O Differential (07/23/2024 10:36 AM EDT) WBC Count 13.58(H) 3.70 - 10.30 10*3/uL LAB HEMATOLOGY METHOD 07/23/2024 11:01 AM EDT [facility] RBC Count 3.98(L) 4.60 - 6.10 10*6/uL LAB HEMATOLOGY METHOD 07/23/2024 11:01 AM EDT [facility] HGB 13.8 13.7 - 17.5 g/dL LAB HEMATOLOGY METHOD 07/23/2024 11:01 AM EDT [facility] HCT 39.5(L) 40.0 - 51.0 % LAB HEMATOLOGY METHOD 07/23/2024 11:01 AM EDT [facility] Platelet Count 290 155 - 369 10*3/uL LAB HEMATOLOGY METHOD 07/23/2024 11:01 AM EDT [facility] MCV 99(H) 79 - 98 fL LAB HEMATOLOGY METHOD 07/23/2024 11:01 AM EDT [facility] MCH 34.7(H) 26.0 - 32.0 pg LAB HEMATOLOGY METHOD 07/23/2024 11:01 AM EDT [facility] MCHC 34.9 30.7 - 35.5 g/dL LAB HEMATOLOGY METHOD 07/23/2024 11:01 AM EDT [facility] RDW 14.6(H) 11.5 - 14.5 % LAB HEMATOLOGY METHOD 07/23/2024 11:01 AM EDT [facility] MPV 8.6(L) 8.8 - 12.5 fL LAB HEMATOLOGY METHOD 07/23/2024 11:01 AM EDT [facility] nRBC 0.0 <=0.0 per 100 WBCs LAB HEMATOLOGY METHOD 07/23/2024 11:01 AM EDT [facility] Blood Venous blood specimen / Unknown Venipuncture / Unknown 07/23/2024 10:36 AM EDT 07/23/2024 10:54 AM EDT Farhad Castillo MD LAB BLOOD ORDERABLES Final Result [facility] [address] [place] [address] * Prealbumin, Plasma (07/23/2024 10:36 AM EDT) Prealbumin, Plasma 22.6 20.0 - 41.0 mg/dL 07/23/2024 11:29 AM EDT [facility] Blood Venous blood specimen / Unknown Venipuncture / Unknown 07/23/2024 10:36 AM EDT 07/23/2024 10:54 AM EDT Farhad Castillo MD LAB BLOOD ORDERABLES Final Result [facility] [address] [place] [address] * (ABNORMAL) Hemoglobin A1c (07/23/2024 10:36 AM EDT) Hemoglobin A1c 7.7(H) <5.7 % 07/23/2024 12:23 PM EDT [facility] Blood Venous blood specimen / Unknown Venipuncture / Unknown 07/23/2024 10:36 AM EDT 07/23/2024 10:54 AM EDT Narrative [facility] - 07/23/2024 12:23 PM EDT HA1C Interpretive Data: Diagnosis of Diabetes: Diabetic > or = 6.5% Pre-diabetic 5.7 to 6.4% Non-diabetic < or = 5.6% Glycemic Targets for Type I and Type II Diabetics: Non- Adults <7.0% Adults <6.0% Children and Adolescents <7.5% Source: [place] [employer]. Standards of medical care in diabetes,2017. Diabetes Care.2017:40 (suppl 1):S1-S135. Farhad Castillo MD LAB BLOOD ORDERABLES Final Result Performing Organization Address City/[facility]/ZIP Co de Phone Number [facility] [address] [place] [address] * (ABNORMAL) CEA, Serum (07/23/2024 10:36 AM EDT) CEA, Serum 9.1(H) <4.0 ng/mL 07/23/2024 11:32 AM EDT [facility] Blood Venous blood specimen / Unknown Venipuncture / Unknown 07/23/2024 10:36 AM EDT 07/23/2024 10:54 AM EDT Narrative [facility] - 07/23/2024 11:32 AM EDT Normal range for smokers: < 5.5 ng/ml Normal range for non-smokers: <=4.0 ng/ml Performed by [employer] electrochemiluminescent immunoassay. Results obtained with different test methods or kits cannot be used interchangeably. us Farhad Castillo MD LAB BLOOD ORDERABLES Final Result [facility] [address] [place] [address] * (ABNORMAL) Comprehensive Metabolic Panel, Plasma (07/23/2024 10:36 AM EDT) Glucose, Plasma 148(H) 74 - 99 mg/dL 07/23/2024 11:29 AM EDT [facility] BUN, Plasma 21 8 - 23 mg/dL 07/23/2024 11:29 AM EDT [facility] Creatinine, Plasma 0.96 0.70 - 1.20 mg/dL 07/23/2024 11:29 AM EDT [facility] BUN/Creatinine Ratio 22 07/23/2024 11:29 AM EDT [facility] Sodium, Plasma 136 136 - 145 mmol/L 07/23/2024 11:29 AM EDT [facility] Potassium, Plasma 4.4 3.6 - 4.9 mmol/L 07/23/2024 11:29 AM EDT [facility] Chloride, Plasma 104 97 - 107 mmol/L 07/23/2024 11:29 AM EDT [facility] CO2, Plasma 18(L) 22 - 29 mmol/L 07/23/2024 11:29 AM EDT [facility] Anion Gap 14 6 - 16 mmol/L 07/23/2024 11:29 AM EDT [facility] Total Calcium, Plasma 9.6 8.9 - 10.2 mg/dL 07/23/2024 11:29 AM EDT [facility] Total Protein 8.0(H) 6.3 - 7.9 g/dL 07/23/2024 11:29 AM EDT [facility] Albumin, Plasma 4.0 3.5 - 5.2 g/dL 07/23/2024 11:29 AM EDT [facility] AST, Plasma 41 10 - 50 U/L 07/23/2024 11:29 AM EDT [facility] Comment:Hemolyzed, result ma y be falsely increased. ALT, Plasma 15 10 - 50 U/L 07/23/2024 11:29 AM EDT [facility] Alkaline Phosphatase, Plasma 74 40 - 115 U/L 07/23/2024 11:29 AM EDT [facility] Total Bilirubin, Plasma 0.7 0.2 - 1.1 mg/dL 07/23/2024 11:29 AM EDT [facility] eGFRcr 90.5 mL/min/1.7 3m*2 07/23/2024 11:29 AM EDT [facility] Comment:Reported eGFRcr in m L/min/1.73m2 is based the CKD-EPI 2020 equation that does not use a race coefficient. Blood Venous blood specimen / Unknown Venipuncture / Unknown 07/23/2024 10:36 AM EDT 07/23/2024 10:54 AM EDT Farhad Castillo MD LAB BLOOD ORDERABLES Final Result [facility] [address] [place] [address] * Surgical Pathology Consult (07/16/2024 1:13 PM EDT) Case Report Sugical Pathology Consult Case: [id number] Authorizing Provider: Farhad Castillo MD Collected: 07/16/2024 1313 Ordering Location: [facility] Lab Received: 07/16/2024 1313 Pathologist: Constance Murphy MD Specimen: Colon, [id number] 07/17/2024 1:08 PM EDT [facility] Final Diagnosis RIGHT COLON AND TERMINAL ILEUM, RIGHT HEMICOLECTOMY ([id number]; 11/09/2022): - 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 - TUMOR BUDDING SCORE: HIGH (10 OR GREATER). - NO TUMOR SEEN IN TWENTY ONE LYMPH NODES (0/21). 07/17/2024 1:08 PM EDT [facility] at 1308 EDT Comment Per pathology report immunohistochemical stains for MMR proteins showed retained nuclear immunoreaction for all 4 proteins (MLH-1, MSH-2, MSH-6, and PMS-2). 07/17/2024 1:08 PM EDT [facility] Clinical Information K35.890 - Other acute appendicitis without perforation or gangrene [ICD-10-CM] 07/17/2024 1:08 PM EDT [facility] Gross Description A. [id number] Received along with a corresponding pathology report from [facility] are 29 slides labeled outside case: [id number] collected on 11/09/2022. 07/17/2024 1:08 PM EDT [facility] Note: A resident was involved in the service. I attest I examined the relevant preparations for the specimens and confirmed the diagnosis or interpretation. 07/17/2024 1:08 PM EDT [facility] Tissue Colon structure / Unknown 07/16/2024 1:13 PM EDT 07/16/2024 1:13 PM EDT us Farhad Castillo MD LAB PATHOLOGY ORDERABLES F inal Result [facility] [address] [place] [address] from Last 3 Months Insurance [place] Care Teams Boring Inspector Relationship Specialty Start Date End Date Tayo Jones MD [address] [place] [address] PCP - General 07/14/24
--- OUTSIDE RECORDS SUMMARY | 2024-09-22 08:52 | XMS_ITS | Encounter Summary ---
Author Organization Healthcare Address [address] [place] [address] Care Team Providers Care Recreation Manager Name Role Phone Tayo Jones MD Primary Care Provider [phone] Encounter Details Date Type Department Care Team (Late Contact Info) Description 01/15/2023 Orders Only External Location [address] [place] [address] Sue Pope MD [address] [place] [address] [phone] Social History Tobacco Use Types Packs/Day Years [...] Info) Description 11/19/2024 8:30 AM EDT Appointment [facility] [address] [place] [address] 11/19/2024 11:15 AM EDT Office Visit [facility] Multidisciplinary Oncology Clinic [address] [place] [address] Farhad Castillo MD [address] [address] documented as of this encounter Procedures Procedure Name Priority Date/Time Associated Diagnosis Comments CT OUTSIDE IMAGES 01/15/2023 9:37 AM EDT documented in this encounter Results * CT OUTSIDE IMAGES (01/15/2023 9:37 AM EDT) Anatomical Region Laterality Modality Computed Tomogra phy 01/15/2023 9:37 AM EDT Sue Pope MD IMG CT PROCEDURES Final Result documented in this encounter Visit Diagnoses Not on filedocumented in this encounter Care Teams Recreation Manager Relationship Specialty Start Date End Date Tayo Jones MD [address] [phone] PCP - General 07/14/24 documented as of this encounter
--- OUTSIDE RECORDS SUMMARY | 2024-09-22 08:52 | XMS_ITS | Encounter Summary ---
Author Organization [facility] Address [address] [phone] Care Team Providers Care Health Safety Specialist Name Role Phone Tayo Jones MD Primary Care Provider [phone] Reason for Referral * Imaging (Routine) - Pending Review Specialty Diagnoses / Procedures Referred By Samia pagan Referred To Contact Radiology Diagnoses Metastatic colon cancer to liver (CMS/HCC) Procedures CT Abdomen Pelvis w IV Contrast Farhad Castillo MD [address] [address] Phone: tel: fax: Referral ID Status Reason Start Date Expiration Date V isits Requested Visits Authorized [id number] Pending Review 08/03/2024 02/02/2026 1 1 * Imaging (Routine) - Pending Review Specialty Diagnoses / Procedures Referred By Samia pagan Referred To Contact Radiology Diagnoses Metastatic colon cancer to liver (CMS/HCC) Procedures CT Chest w IV Contrast Farhad Castillo MD [address] [address] Phone: tel: fax: Referral ID Status Reason Start Date Expiration Date V isits Requested Visits Authorized [id number] Pending Review 08/03/2024 02/02/2026 1 1 Encounter Details Date Type Department Care Team (Latest Contact Info) Description 08/03/2024 Orders Only [facility] [address] [place] [address] Farhad Castillo MD [address] [address] Metastatic colon cancer to liver (CMS/HCC) (Primary Dx) Social History Tobacco Use Types Packs/Day Years [...] Info) Description 11/19/2024 8:30 AM EDT Appointment [facility] [address] [place] [address] 11/19/2024 11:15 AM EDT Office Visit [facility] Multidisciplinary Oncology Clinic [address] [place] [phone] Farhad Castillo MD [address] [phone] Scheduled Orders Name Type Priority Associated Diagnoses Orde r Schedule CT Chest w IV Contrast Imaging Routine Metastatic colon cancer to liver (CMS/HCC) Expected: 11/12/2024, Expires: 02/02/2026 CT Abdomen Pelvis w IV Contrast Imaging Routine Metastatic colon cancer to liver (CMS/HCC) Expected: 11/12/2024, Expires: 02/02/2026 documented as of this encounter Visit Diagnoses Diagnosis Metastatic colon cancer to liver (CMS/HCC)- Primary documented in this encounter Additional Health Concerns Assessment Noted Time A fall risk assessment has been complete d for the patient 07/23/2024 8:54 AM EDT A Body Mass Index follow-up plan has been documented for the patient 07/24/2024 8:25 AM EDT documented as of this encounter Care Teams Health Safety Specialist Relationship Specialty Start Date End Date Tayo Jones MD [address] [phone] PCP - General 07/14/24 documented as of this encounter
--- OUTSIDE RECORDS SUMMARY | 2024-09-22 08:52 | XMS_ITS | Encounter Summary ---
Author Organization [facility] Address [address] [place] [address] Care Team Providers Care Senior Engineering Tech Name Role Phone Jeremy Gil MD Unavailable [phone] Andres Alcantara DPM Unavailable Grant Fletcher MD Unavailable Niko Cueva MD Unavailable None, None Primary Care Provider UnavailGm Vigil DPM Unavailable Reina Byrd NP Unavailable Unavailable Encounter Details Date Type Department Care Team (Late st Contact Info) Description 09/08/2020 Clinical Update [facility] - Infectious Diseases, [facility] [address] [place] [address] [phone] Grant Fletcher MD [address] [place] [address] [id number] Social History Tobacco Use Types Packs/Day Years Used Date Smoking Tobacco: Never Assessed Sex and Gender Information Value Date Recorded Sex Assigned at Not on file Legal Sex Male 8:18 PM EDT Gender Identity Not on file Sexual Orientation Not on file COVID-19 Exposure Response Date Recorded In the last month, have you been in contact with someone who was confirmed or suspected to have Coronavirus / COVID-19? Unable to assess 09/07/2020 10:19 AM EDT documented as of this encounter Functional Status * Are you blind or do you have difficulty seeing, even when wearing glasses? Answer Date of Assessment Author No 08/19/2020 3:07 AM EDT Gail Parker RN * Do you have serious difficulty walking or climbing stairs? Answer Date of Assessment Author Yes 08/19/2020 3:07 AM EDT Gail Parker RN * Do you have difficulty dressing or bathing? Answer Date of Assessment Author No 08/19/2020 3:07 AM EDT Gail Parker RN * Because of a physical, mental, or emotional condition, do you have difficulty doing errands alone such as a visiting a doctor's office or shopping? Answer Date of Assessment Author Yes 08/19/2020 3:07 AM EDT Gail Parker RN documented as of this encounter Mental Status * Because of a physical, mental, or emotional condition, do you have serious difficulty concentrating, remembering, or making decisions? Answer Entry Date Author No 08/19/2020 3:07 AM EDT Gail Parker RN documented in this encounter Plan of Treatment Not on file documented as of this encounter Procedures Procedure Name Priority Date/Time Associated Diagnosis Comments C-REACTIVE PROTEIN (CRP) Routine 09/07/2020 WBC Routine 09/07/2020 HEMOGLOBIN (HGB) Routine 09/07/2020 HEMATOCRIT Routine 09/07/2020 ERYTHROCYTE SEDIMENTATION RATE Routine 09/07/2020 CBC WITH DIFFERENTIAL Routine 09/07/2020 SODIUM Routine 09/07/2020 PROTEIN, TOTAL Routine 09/07/2020 POTASSIUM Routine 09/07/2020 GLUCOSE Routine 09/07/2020 CHLORIDE Routine 09/07/2020 CARBON DIOXIDE (CO2) Routine 09/07/2020 BUN Routine 09/07/2020 BILIRUBIN, TOTAL Routine 09/07/2020 AST (SGOT) Routine 09/07/2020 ALT (SGPT) Routine 09/07/2020 ALKALINE PHOSPHATASE Routine 09/07/2020 ALBUMIN SERUM/PLASMA Routine 09/07/2020 PLATELET COUNT Routine 09/07/2020 CALCIUM Routine 09/07/2020 CREATININE Routine 09/07/2020 documented in this encounter Results * C-REACTIVE PROTEIN (CRP) (09/07/2020) CRP 11.1 Serum us Grant Fletcher MD HEMATOLOGY ORDERABLES Final R esult * WBC (09/07/2020) WBC 12.2 10^3/mL Whole Blood us Grant Fletcher MD HEMATOLOGY ORDERABLES Final R esult * HEMOGLOBIN (HGB) (09/07/2020) Hemoglobin 8.8 g/dL Whole Blood us Grant Fletcher MD HEMATOLOGY ORDERABLES Final R esult * HEMATOCRIT (09/07/2020) Hematocrit Blood 28.0 Whole Blood us Grant Fletcher MD HEMATOLOGY ORDERABLES Final R esult * ERYTHROCYTE SEDIMENTATION RATE (09/07/2020) Sed Rate 20 Whole Blood us Grant Fletcher MD HEMATOLOGY ORDERABLES Final R esult * CBC WITH DIFFERENTIAL (09/07/2020) Lymphocytes Absolute 3.5 /uL Monocytes Absolute 1.3 /uL Eosinophils Absolute 0.6 /uL Neutrophils Absolute 6.7 /uL Whole Blood us Grant Fletcher MD HEMATOLOGY ORDERABLES Final R esult * SODIUM (09/07/2020) Sodium 139 mmol/L Plasma us Grant Fletcher MD CHEMISTRY ORDERABLES Final Re sult * PROTEIN, TOTAL (09/07/2020) Total Protein 6.7 g/dL Plasma Result Kurt Fletcher MD CHEMISTRY ORDERABLES Final Re sult * POTASSIUM (09/07/2020) Potassium 3.8 mmol/L Plasma Result Kurt Fletcher MD CHEMISTRY ORDERABLES Final Re sult * GLUCOSE (09/07/2020) Glucose 117 Plasma us Grant Fletcher MD CHEMISTRY ORDERABLES Final Re sult * CHLORIDE (09/07/2020) Chloride 102 Plasma us Grant Fletcher MD CHEMISTRY ORDERABLES Final Re sult * CARBON DIOXIDE (CO2) (09/07/2020) CO2 28 mmol/L Plasma Grant Fletcher MD CHEMISTRY ORDERABLES Final Re sult * BUN (09/07/2020) BUN 9 Plasma Grant Fletcher MD CHEMISTRY ORDERABLES Final Re sult * BILIRUBIN, TOTAL (09/07/2020) Total Bilirubin 0.3 Plasma Grant Fletcher MD CHEMISTRY ORDERABLES Final Re sult * AST (SGOT) (09/07/2020) AST 15 U/L Plasma Grant Fletcher MD CHEMISTRY ORDERABLES Final Re sult * ALT (SGPT) (09/07/2020) ALT 5 U/L Plasma Result [facility] Grant Fletcher MD CHEMISTRY ORDERABLES Final Re sult * ALKALINE PHOSPHATASE (09/07/2020) Alkaline Phosphatase 98 U/L Plasma Result [facility] Grant Fletcher MD CHEMISTRY ORDERABLES Final Re sult * ALBUMIN (09/07/2020) Albumin 2.6 Plasma Result [facility] Grant Fletcher MD CHEMISTRY ORDERABLES Final Re sult * PLATELET COUNT (09/07/2020) Platelets 401 K/uL Grant Fletcher MD RESULTABLE ONLY ORDERS Final Result * CALCIUM (09/07/2020) Calcium 8.2 mg/dL Grant Fletcher MD RESULTABLE ONLY ORDERS Final Result * CREATININE (09/07/2020) Creatinine 0.8 mg/dL Grant Fletcher MD BODY FLUIDS, STOOLS, AND OTHE R Final Result documented in this encounter Visit Diagnoses Not on filedocumented in this encounter Care Teams Senior Engineering Tech Relationship Specialty Start Date End Date None, None [address] [place] [address] PCP - General 10/26/20 Jeremy Gil MD [address] [place] [address] [address] [place] [address] Internal Medicine 08/19/20 Andres Alcantara DPM [address] [facility]. [address] [place] [address] Resident Podiatry 08/22/20 Grant Fletcher MD [address] [facility] [address] [place] [address] Infectious Diseases 09/08/20 Niko Cueva MD [address] [facility] [address] [place] [address] Vascular Surgery 09/16/20 Gm Flor DPM [address] [facility]. [address] [place], [place] [id number] Podiatry 11/01/20 Reina Byrd NP [address] [facility] [place] [address] Nurse Practitioner Vascular Surgery 11/30/20 documented as of this encounter
--- OUTSIDE RECORDS SUMMARY | 2024-09-22 08:52 | XMS_ITS | Encounter Summary ---
Author Organization Healthcare Address [address] [id number] Care Team Providers Care Server Systems Administrator Name Role Phone Tayo Jones MD Primary Care Provider [phone] Encounter Details Date Type Department Care Team (Late st Contact Info) Description 07/29/2024 Telephone [facility] [address] [place] [address] Farhad Castillo MD [address] [address] Social History Tobacco Use Types Packs/Day Years [...] Telephone Encounter - Audrey Berrios LPN - 07/30/2024 9:[address] Castillo spoke with Dr. Matthew via phone * Telephone Encounter - Paula Mtz - 07/29/2024 10:32 AM EDT Received call from Rosie Post, Oncology Nurse Navigator at [facility] in Dr. Matthwe's office. She is requesting a call back from the clinic yon with Dr. Castillo's recommendations for POC now that scans are complete. She can be reached at [phone]. documented in this encounter Plan of Treatment Upcoming Encounters Date Type Department Care Team (Late st Contact Info) Description 11/19/2024 8:30 AM EDT Appointment [facility] [address] [place] [address] 11/19/2024 11:15 AM EDT Office Visit [facility] Multidisciplinary Oncology Clinic [address] [place] [address] Farhad Castillo MD [address] [address] documented as of this encounter Visit Diagnoses Not on filedocumented in this encounter Additional Health Concerns Assessment Noted Time A fall risk assessment has been complete d for the patient 07/23/2024 8:54 AM EDT A Body Mass Index follow-up plan has been documented for the patient 07/24/2024 8:25 AM EDT documented as of this encounter Care Teams Server Systems Administrator Relationship Specialty Start Date End Date Tayo Jones MD [address] [place] [address] PCP - General 07/14/24 documented as of this encounter
--- OUTSIDE RECORDS SUMMARY | 2024-09-22 08:52 | XMS_ITS | Encounter Summary ---
Author Organization Healthcare Address [address] [id number] Care Team Providers Care Chuck Boner Name Role Phone Tayo Jones MD Primary Care Provider [phone] Encounter Details Date Type Department Care Team (Late st Contact Info) Description 07/27/2024 Telephone [facility] [address] [place] [address] Farhad Castillo MD [address] [address] Social History Tobacco Use Types Packs/Day Years [...] Encounter - Audrey Berrios LPN - 07/27/2024 3:31 PM EDT Called Kim back and she just wanted to make sure it was nothing to eat of drink after midnight. Let kim know that was correct. * Telephone Encounter - Katty Easley - 07/27/2024 2:05 PM EDT Patient Phone Message Reason for Call: Kim calling from [facility] to speak to Audrey. Best contact number and optimal time of day to reach caller: [phone] ext [phone] Note: Please do not reply [...] EDT Appointment [facility] [address] [place] [address] 11/19/2024 11:15 AM EDT Office Visit [facility] Multidisciplinary Oncology Clinic [address] [place] [address] Farhad Castillo MD [address] [address] documented as of this encounter Visit Diagnoses Not on filedocumented in this encounter Additional Health Concerns Assessment Noted Time A fall risk assessment has been complete d for the patient 07/23/2024 8:54 AM EDT A Body Mass Index follow-up plan has been documented for the patient 07/24/2024 8:25 AM EDT documented as of this encounter Care Teams Chuck Boner Relationship Specialty Start Date End Date Tayo Jones MD [address] [place] [address] PCP - General 07/14/24 documented as of this encounter
--- OUTSIDE RECORDS SUMMARY | 2024-09-22 08:52 | XMS_ITS | Clinical Summary ---
Author Organization [facility] Address [address] [place] [address] Care Team Providers Care Supervisor Incising Name Role Phone Jeremy Gil MD Unavailable Andres Alcantara DPM Unavailable [phone] Grant Fletcher MD Unavailable [phone] Niko Cueva MD Unavailable None, None Primary Care Provider UnavailGm Vigil DPM Unavailable [phone] Reina Byrd NP Unavailable Unavailable Allergies No known active allergies Medications Insulin Glargine (Lantus) 100 unit/mL (3 mL) Solostar INPNIndications :Type 2 diabetes mellitus with hyperglycemia, with long-term current use of insulin ([facility]) 16 Units by Subcutaneous route every 24 hours. 1 Active insulin lispro (Admelog) 100 unit/mL 10 units with meals plus correction scale: Blood sugar Units of insulin 140-179 +2 units 180-219 +4 units 220-259 +6 units 260-299 +8 units 300-339 +10 units 340-379 +12 units 380-419 +14 units 420 + +16 units 1 Active insulin lispro (Admelog) 100 unit/mL 2-12 Units by Subcutaneous route nightly at bedtime. Blood sugar Units of correction 200-240 +2 units 241-280 +4 units 281-320 +6 units 321-360 +8 units 361-400 +10 units > 400 +12 units 1 Active Vitamin C 500 mg tablet 1 Active zinc sulfate (ZINCATE) 220 mg Capsule Take 220 mg by mouth daily. Active Active Problems Problem Noted Date Diagnosed Date Leukocytosis 08/25/2020 Acute blood loss as cause of postoperative anemi a 08/23/2020 Abscess of right lower extremity 08/19/2020 Obesity (BMI 30-39.9) 08/19/2020 Type 2 diabetes mellitus wit h hyperglycemia, with long-term current use of insulin ([facility]) PVD (peripheral vascular disease) ([facility]) Other osteomyelitis of left foot Social History Tobacco Use Types Packs/Day Years Used Date Smoking Tobacco: Never Smokeless Tobacco: Never Alcohol Use Standard Drinks/Week Comments Never 0 (1 standard drink = 0.6 oz pur e alcohol) Sex and Gender Information Value Date Recorded Sex Assigned at Not on file Legal Sex Male 8:18 PM EDT Gender Identity Not on file Sexual Orientation Not on file Last Filed Vital Signs Vital Sign Reading Time Taken Comments Blood Pressure 157/81 01/10/2021 1:50 PM EDT Pulse 79 01/10/2021 1:50 PM EDT Temperature 37.1 C (98.7 F) 01/10/2021 1:50 PM EDT Respiratory Rate 16 01/10/2021 1:50 PM EDT Oxygen Saturation 98% 09/05/2020 7:26 AM EDT Inhaled Oxygen Concentration - - Weight 96.2 kg (212 lb) 11/30/2020 8:33 AM EDT Height 180.3 cm (5' 11 ) 11/30/2020 8:33 AM EDT Body Mass Index 29.57 11/30/2020 8:33 AM EDT Plan of Treatment Health Maintenance Due Date Last Done Comments Cologuard 1964 Colonoscopy 1964 Colorectal Cancer Screening 1964 FIT 1964 Lipid Screening 1982 Tetanus Vaccination (Every 10 Years) 1982 Hepatitis C Virus (HCV) Screening 1985 Pneumococcal Vaccine: 50+ Years (1 of 1 - PCV) 014 Zoster-RZV(Shingrix) (1 of 2) 2014 COVID-19 Vaccine ( - 2024-25 season) 2023 Depression Screening 04/15/2024 Influenza Vaccination (Season Ended) 2024 RSV Vaccines (1 - 1-dose 75+ series) 2039 Insurance MEDICAID [place] Advance Directives For more information, please contact: [phone] * Full Code (Latest Code Status on File) Date Activated Date Inactivated Comments 08/19/2020 3:05 AM No automated ch est compression devices for VAD Patients Care Teams Supervisor Incising Relationship Specialty Start Date End Date None, None [address] [facility] [place] [address] PCP - General 10/26/20 Jeremy Gil MD [address] [facility] [address] [place] [address] Internal Medicine 08/19/20 Andres Alcantara DPM [address] [facility]. [address] [place] [address] Resident Podiatry 08/22/20 Grant Fletcher MD [address] [place] [address] [address] [place] [address] Infectious Diseases 09/08/20 Niko Cueva MD [address] [place] [address] [address] [place] [address] Vascular Surgery 09/16/20 Gm Flor DPM [address] [address] Podiatry 11/01/20 Reina Byrd NP [address] [place] [address] Nurse Practitioner Vascular Surgery 11/30/20
--- OUTSIDE RECORDS SUMMARY | 2024-09-22 08:52 | XMS_ITS | Encounter Summary ---
Author Organization [facility] Address [address] [place] [address] Care Team Providers Care Lock Master Name Role Phone Tayo Jones MD Primary Care Provider [phone] Encounter Details Date Type Department Care Team (Late Contact Info) Description 05/31/2023 Orders Only External Location [address] [place] [address] Provider, External Social History Tobacco Use Types [...] Appointment [facility] [address] [place] [address] 11/19/2024 11:15 AM EDT Office Visit [facility] Multidisciplinary Oncology Clinic [address] [place] [address] Farhad Castillo MD [address] [address] documented as of this encounter Procedures Procedure Name Priority Date/Time Associated Diagnosis Comments CT MSK OUTSIDE IMAGES 05/31/2023 9:19 AM EST documented in this encounter Results * CT MSK OUTSIDE IMAGES (05/31/2023 9:19 AM EST) Anatomical Region Laterality Modality Computed Tomogra phy 05/31/2023 9:19 AM EST us External Provider IMG CT PROCEDURES Final Result documented in this encounter Visit Diagnoses Not on filedocumented in this encounter Care Teams Lock Master Relationship Specialty Start Date End Date Tayo Jones MD [address] [id number] PCP - General 07/14/24 documented as of this encounter
--- OUTSIDE RECORDS SUMMARY | 2024-09-22 08:52 | XMS_ITS | Encounter Summary ---
Author Organization [facility] Address [address] [place] [address] Care Team Providers Care Accessibility Lift Technician Name Role Phone Tayo Jones MD Primary Care Provider [phone] Encounter Details Date Type Department Care Team (Latest Contact Info) Description 07/31/2024 Travel Social History Tobacco Use Types Packs/Day [...] AM EDT Appointment [facility] [address] [place] [address] 11/19/2024 11:15 AM EDT Office Visit [facility] Multidisciplinary Oncology Clinic [address] [place] [address] Farhad Castillo MD [address] [phone] documented as of this encounter Visit Diagnoses Not on filedocumented in this encounter Additional Health Concerns Assessment Noted Time A fall risk assessment has been complete d for the patient 07/23/2024 8:54 AM EDT A Body Mass Index follow-up plan has been documented for the patient 07/24/2024 8:25 AM EDT documented as of this encounter Care Teams Accessibility Lift Technician Relationship Specialty Start Date End Date Tayo Jones MD [address] [place] [address] PCP - General 07/14/24 documented as of this encounter
--- OUTSIDE RECORDS SUMMARY | 2024-09-22 08:52 | XMS_ITS | Encounter Summary ---
Author Organization [facility] Address [address] [place] [address] Care Team Providers Care Warehouse Manager Name Role Phone Tayo Jones MD Primary Care Provider [phone] Encounter Details Date Type Department Care Team (Late Contact Info) Description 02/18/2023 Orders Only External Location [address] [place] [address] Provider, External Social History Tobacco Use Types [...] Info) Description 11/19/2024 8:30 AM EDT Appointment [facility] [address] [place] [address] 11/19/2024 11:15 AM EDT Office Visit [facility] Multidisciplinary Oncology Clinic [address] [place] [address] Farhad Castillo MD [address] [address] documented as of this encounter Procedures Procedure Name Priority Date/Time Associated Diagnosis Comments MR OUTSIDE IMAGES 02/18/2023 8:13 AM EST documented in this encounter Results * MR transfer of outside films (02/18/2023 8:13 AM EST) Anatomical Region Laterality Modality Magnetic Resonan ce 02/18/2023 8:13 AM EST us External Provider IMG MRI PROCEDURES Final Resul t documented in this encounter Visit Diagnoses Not on filedocumented in this encounter Care Teams Warehouse Manager Relationship Specialty Start Date End Date Tayo Jones MD [address] [place] [address] PCP - General 07/14/24 documented as of this encounter
[2024-09-22 09:20] LABS: Basophils # 0.1 K/mm3 (0-0.2); Basophils % 0.7 % (0.1-2.0); Eosinophils # 0.5 Kmm3 (0.0-0.4); Eosinophils % 5.7 % (0.1-12.0); Hematocrit 37.4 % (42.0-52.0); Hemoglobin 12.7 g/dL (14.1-18.0); Immature Granulocytes # 0.04 10^3uL; Immature Granulocytes % 0.5 %; Lymphocytes # 1.9 K/mm3 (0.7-4.5); Lymphocytes % 22.2 % (10-50); Mean Corpuscular Hemoglobin 33.7 pg (27.0-31.2); Mean Corpuscular Volume 99.2 fl (80-94); Mean Platelet Volume 9.1 fl (7.4-10.4); Monocytes # 0.8 K/mm3 (0.1-1.0); Monocytes % 10.1 % (1.7-9.3); Neutrophils # 5.1 K/mm3 (1.8-7.8); Neutrophils % 60.8 % (37.0-80.0); Nucleated Red Blood Cells # 0 10^3/uL; Nucleated Red Blood Cells % 0 %; Platelet Count 259 K/mm3 (142-424); Red Blood Count 3.77 M/mm3 (4.60-6.20); Red Cell Distribution Width 13.2 % (11.5-17.5); Red Cell Distribution Width-SD 47.8 fL; White Blood Count 8.4 K/mm3 (4.8-10.8)
[2024-09-22 09:25] LABS: Chloride 111 mmol/L (98-107)
[2024-09-22 09:26] LABS: Albumin Level 3.4 g/dl (3.5-5.0); Potassium 4.5 mmoL/L (3.5-5.1); Sodium 137 mmol/L (136-145)
[2024-09-22 09:28] LABS: Alanine Aminotransferase 19 U/L (12-78); Anion Gap 8.5 mEq/L (5-15); Aspartate Amino Transferase 46 U/L (17-59); Blood Urea Nitrogen 12 mg/dl (9-20); Carbon Dioxide 22 mmol/L (22.0-30.0); Creatinine Clearance Estimated 135 mL/min (50-200); Estimated Glomerular Filt Rate 76 ml/min (>60); GFR (African American) 92 ML/MIN (>60)
[2024-09-22 09:29] LABS: Albumin/Globulin Ratio 1.2 (1.1-1.8); Alkaline Phosphatase 78 U/L (38-126); Bilirubin,Total 0.4 mg/dl (0.2-1.3); Calcium 8.8 mg/dl (8.4-10.2); Globulin 2.8 g/dL (1.3-3.2); Glucose 183 mg/dl (74-100); Total Protein,Serum 6.2 g/dl (6.3-8.2)
[2024-09-22] MEDS: DEXAMETHASONE 4MG TABLET 12 MG PO (09:45)
[2024-09-22] MEDS: ONDANSETRON 4MG ODT 16 MG SL (09:45)
[2024-09-22] MEDS: SODIUM CHLORIDE 0.9% 50ML BAG 50 ML IV (09:45)
[2024-09-22] MEDS: DEXTROSE 5% IV (10:14)
[2024-09-22] MEDS: IRINOTECAN HCL IV (10:14)
[2024-09-22] MEDS: WATER IV (10:14)
[2024-09-22] MEDS: ATROPINE SULFATE 0.4MG/ML VIAL 0.25 MG IV (11:47)
[2024-09-22] MEDS: SODIUM CHLORIDE 0.9% 10ML FLUSH SYRINGE 10 ML IV (12:00)
== END 2024-09-22 12:05 | disposition home or self-care (01) ==
LOC: INF 08:48
PROVIDERS: PCP Family Medicine; Visit Provider Internal Medicine Medical Oncology
DX: C18.2 Malignant neoplasm of ascending colon (principal)
CPT/HCPCS: 36415; 80053; 85025; 96374; 96413; 96415; J0461; J1642; J7060; J8540; J9206; Q0162

== ENCOUNTER 2024-09-29 09:42 | Outpatient (CLI) | payer MEDICAID, SELFPAY ==
--- OUTSIDE RECORDS SUMMARY | 2024-07-31 05:40 | XMS_ITS | Encounter Summary ---
Author Organization [facility] Address [address] [place] [address] Care Team Providers Care Drafting Detailer Name Role Phone Tayo Jones MD Primary Care Provider [phone] Reason for Visit * Auth/Cert (Routine) Specialty Diagnoses / Procedures Referred By Samia pagan Referred To Contact Diagnoses Metastatic colon cancer to liver (CMS/HCC) Metastatic colon cancer to liver (CMS/HCC) [C18.9, C78.7] Procedures CO INSERT TUNNELED CV CATH WITH PORT CHG FLUOROGUIDE CNTRL LYNN ACCESS,PLACE,REPLACE,REMOVE INSERTION, TUNNELED CENTRAL VENOUS DEVICE, WITH PORT Farhad Castillo MD [address] [place] [phone] Phone: tel: fax: [facility] [address] [place] [phone] Phone: tel: Referral ID Status Reason Start Date Expiration Date Visits Re quested Visits Authorized [id number] 1 1 Encounter Details Date Type Department Care Team (Latest Contact Info) Description 07/31/2024 5:40 AM EDT - 07/31/2024 10:10 AM EDT Hospital Encounter [facility] [address] [place] [phone] Farhad Castillo MD [address] [phone] Metastatic colon cancer to liver (CMS/HCC) [C18.9, C78.7] (Primary Dx) Discharge Disposition: Home or Self Care Social [...] on file documented as of this encounter Last Filed Vital Signs Vital Sign Reading Time Taken Comments Blood Pressure 133/78 07/31/2024 9:45 AM EDT Pulse 65 07/31/2024 10:00 AM EDT Temperature 36.4 C (97.6 F) 07/31/2024 9:45 AM EDT Respiratory Rate 18 07/31/2024 10:00 AM EDT Oxygen Saturation 98% 07/31/2024 10:00 AM EDT Inhaled Oxygen Concentration - - Weight - - Height - - Body Mass Index - - documented in this encounter Functional Status * Over the [...] [place] documented as of this encounter Discharge Instructions * Discharge Instructions* Logan Mitchell MD - 07/31/2024 9:49 AM EDT Post-Operative Discharge Instructions: Precautions: - You have received sedation/anesthesia today. You may not drive, drink alcohol, or do anything that requires a clear head for the next 24 hours. Medications: - You should alternate taking Tylenol 500 mg every 6 hours as needed for mild - moderate pain. Do not take ibuprofen if you have been told not to by your doctor or have a medical contraindication (such as kidney disease or previous gastric bypass surgery). - You may resume your previous medications unless otherwise instructed. Nutrition: - You may resume your typical diet as tolerated, focusing on liquids to keep yourself hydrated. Activity: - No activity restrictions, avoid strenuous activity and turning for a couple weeks. - You may not drive for 48 hours after surgery, or while taking narcotics Surgical wound/dressings: - Your port may be used immediately at the oncology clinic - Your wound is dressed with dermabond skin glue. Do not pick it off, it will fall of on its own inapproximately 2 weeks. - Please keep your incision(s) clean and dry. - You may shower. Let the soapy water run over your incisions. Do not scrub or pick at them. After you shower, pat your incisions dry with a clean towel. - Do not submerge in water such as in a bathtub or pool for 2 weeks after your surgery Potential Issues: - It is normal to have some pain and soreness, especially around the incisions - A small amount of clear drainage from the incision may be expected, call the office if the drainage becomes bloody, purulent (pus), or foul-smelling - Call the office if you start to have increased redness, drainage, swelling, or increased pain around your incision - Call the office if you have a fever greater than 101.4 F - Call the office if you have severe pain, nausea and vomiting that persists, or are feeling unwell Follow Up: - Please call the office with any questions or concerns documented in this encounter Medications at Time of Discharge [...] 35 Units under the skin nightly. 05/29/2024 lisinopril-hydroC HLOROthiazide 20-25 MG tablet Take 1 tablet by mouth daily. Multiple Vitamin (multivitamin) tablet Take 1 tablet by mouth daily. ondansetron (Zofran) 4 MG tablet 04/19/2024 Quercetin 500 MG capsule Take 2 tablets by mouth daily. spironolactone (Aldactone) 25 MG tablet Take 1 tablet by mouth daily. 07/11/2024 documented as of this encounter Miscellaneous Notes * Anesthesia PACU Signout - Chidi Doll MD - 07/31/2024 9:53 AM EDT Patient: Nayan Womack Anesthesia Type: general Vitals Value Taken Time BP 133/78 07/31/24 09:45 Temp 37.1 ??C (98.8 ??F) 07/31/24 09:15 Pulse 69 07/31/24 09:52 Resp 16 07/31/24 09:52 SpO2 95 % 07/31/24 09:52 Vitals shown include unfiled device data. Anesthesia PACU Signout Patient location during evaluation: PACU Patient participation: complete - patient participated Level of consciousness: baseline and awake Pain management: adequate (pain score 0-3) Airway patency: natural airway Hydration status: acceptable PONV: none Cardiovascular status: acceptable and hemodynamically stable Respiratory status: acceptable, spontaneous ventilation, unassisted, nonlabored ventilation and room air Discharge Disposition: home Cosigned by Flaquita Chang MD at 07/31/2024 10:05 AM EDT Associated attestation - Flaquita Chang MD - 07/31/2024 10:05 AM EDT I saw and evaluated the patient with the resident/fellow. I discussed the case with the resident/fellow and agree with the findings and plan as documented. * Op Note - Farhad Castillo MD - 07/31/2024 8:09 AM EDT Operative Note Date: 07/31/24 Location: [facility] Name: Nayan Womack, : 1965, Diagnoses: Pre-op Diagnosis Metastatic colon cancer to liver (CMS/HCC) Post-op Diagnosis Metastatic colon cancer to liver (CMS/HCC) Procedure(s): Left Subclavian Vein 8-Lithuanian Single Lumen PORT Placement with Fluoroscopic Guidance Attending Surgeon(s): * Farhad Castillo - Primary Circle Shear Operator(s): * Logan Mitchell MD - Resident - Assisting Anesthesia: General ASA: III Blood Administration: Blood Product Administration History None Estimated Blood Loss: Minimal Drains: * None in log * Implants Type Name Action Serial No. Other Medication Pump PORT CLEARVUE POWER 8FR - S. - [id number] Implanted . Specimen: Findings: Left subclavian vein accessed, 8-F single Lumen port placed with Fluoroscopic verification. No immediate complications. Indications: Nayan Womack is an 59 y.o. male who is having surgery for Metastatic colon cancer to liver (CMS/HCC). Nayan is a very pleasant 59-year-old diagnosed with a right-sided colon cancer in October of 2022 he had 3 months of the limited adjuvant systemic therapy through December of 2022. He was then started on surveillance and in June of 2024 he had a rising CEA as well as a PET scan which confirmed numerous liver lesions consistent with metastatic disease. We discussed the risks and complications associated with port procedure to facilitate systemic chemotherapy and he was brought to the operating room for the above procedure. Narrative: This patient was seen in the preoperative holding area the interval history was updated and consentwas reviewed and signed by his sister who is his power of city attorney. Patient was brought to the operating room suite and placed in the operating room table in a supine position. Bilateral lower extremity sequential compression devices were in place and functional he then had induction of general endotracheal anesthesia. Patient had a very large acevedo that was significantly interfering in his neck,some portions of the acevedo was shaved in order to attempt to create a sterile field. Additionally he had significant areas along his chest wall which appeared to be chronically irritated consistent with perhaps a small fungal infection. These areas were in the central portion of his chest with largely sparing of the periphery of the chest wall. Based on the pattern of spread as well as his acevedo I elected to proceed with a left subclavian approach. The chest and neck were prepped and draped in a sterile fashion and a time-out procedure was performed verifying antibiotic and subcutaneous heparin administration. The left subclavian vein was accessed using the finer needle, the guidewire was thread in an antegrade fashion and using continuous fluoroscopy for a limited portion of time the wire was thread into the superior vena cava. This required a little bit of manipulation of the wire under continuous fluoroscopy. At the completion of this local anesthesia was infiltrated into the skin and subcutaneous tissue at the deltopectoral groove, 15 blade knife was used to make a skin incisioncarried down through the subcutaneous tissue with cautery and the prepectoral fascia was identifiedand elevated to create a pocket in order to accommodate an 8 Lithuanian single-lumen port. 2-0 Prolene stay sutures were placed into the port in the pocket. The tunneling device was then thread from the pocket to the access site, this was enlarged using a 11 blade knife, the Seldinger technique was then utilized to thread the dilator over the wire without immediate complication and the port tubing was then positioned at a proximally the atriocaval junction without complication. This was carefully connected to the port which was secured to the pocket the device was secured using sutures and then this was aspirated without complication and flushed easily. Final fluoroscopy verified good location,there was no bleeding, the deep dermal stitches were closed using 3-0 Vicryl 4-0 Monocryl subcuticular stitch and Dermabond. Patient was then extubated and transported to the postoperative care unit where a stat portable chest x-ray will be obtained prior to discharge. There were no immediate complications I was present for the entire duration of the case. There were NO signs of surgical site infection (SSI) present at the time of surgery (PATOS). Complications: None; patient tolerated the procedure well. Submitted by: Farhad Castillo MD - 07/31/2024 * H&P - Vita Lynn MD - 07/31/2024 6:04 AM EDT Images from the original note were not included. Chief Concern & History Of Present Illness Nayan Womack is a 59 y.o. male presenting with PMH of RBBB, DM, toe amputations, and right colon cancer s/p right colectomy and adjuvant xeloda, lost to follow up, who returned with evidence of metastatic disease in the liver. Patient presents today for Port placement to facilitate medical treatment of his disease. No recent changes to H&P since clinic visit on 07/23/24. No recent illness, fevers, or chills Past Medical History He has a past medical history of Diabetes (CMS/HCC) and High blood pressure. Surgical History He has a past surgical history that includes Appendectomy; Leg Surgery (Right); and Foot surgery (Left). Family History Family History[1] Social History He reports that he has never smoked. He has never used smokeless tobacco. He reports that he does not drink alcohol and does not use drugs. Occupational History Occupational history[2] Employer: No address on file. Travel History Relevant International Travel History: Travel Screening Question Response Have you been in contact with someone who was sick? No / Unsure Do you have any of the following new or worsening symptoms? None of these Have you traveled internationally or domestically in the last month? No Travel History Travel since 06/30/24 No documented travel since 06/30/24 Relevant Domestic Travel History: n/a Immunizations not reviewed VACCINE/DOSE Flu Tetanus Pneumovax Shingles Allergies Patient has no known allergies. Medications Current Medications[3] Review of Systems Constitutional: Negative. HENT: Negative. Eyes: Negative. Respiratory: Negative. Cardiovascular: Negative. Gastrointestinal: Negative. Endocrine: Negative. Genitourinary: Negative. Musculoskeletal: Negative. Physical Exam Vitals and nursing note reviewed. Constitutional: General: He is not in acute distress. Appearance: Normal appearance. HENT: Head: Normocephalic and atraumatic. Right Ear: External ear normal. Left Ear: External ear normal. Nose: Nose normal. Mouth/Throat: Mouth: Mucous membranes are moist. Eyes: Pupils: Pupils are equal, round, and reactive to light. Cardiovascular: Rate and Rhythm: Normal rate. Pulmonary: Effort: Pulmonary effort is normal. Abdominal: General: Abdomen is flat. There is no distension. Tenderness: There is no abdominal tenderness. Musculoskeletal: General: Normal range of motion. Skin: General: Skin is warm. Capillary Refill: Capillary refill takes less than 2 seconds. Neurological: General: No focal deficit present. Mental Status: He is alert and oriented to person, place, and time. Mental status is at baseline. Psychiatric: Mood and Affect: Mood normal. Last Recorded Vitals There were no vitals taken for this visit. Relevant Results N/a Assessment/Plan Principal Problem: Metastatic colon cancer to liver (CMS/HCC) Plan -Proceed to OR for port placement with Dr. Castillo -Consent obtained and located in the chart [1] Family History Problem Relation Name Age of Onset Other (paternal aunt breast cancer) Other Anesthesia problems Neg Hx Malig Hyperthermia Neg Hx [2] [3] No current facility-administered medications for this encounter. Cosigned by Farhad Castillo MD at 07/31/2024 10:23 AM EDT Associated attestation - Farhad Castillo MD - 07/31/2024 10:23 AM EDT I saw and evaluated the patient with the resident/fellow. I discussed the case with the resident/fellow and agree with the findings and plan as documented. documented in this encounter Plan of Treatment Upcoming Encounters Date Type Department Care Team (Late st Contact Info) Description 11/19/2024 8:30 AM EDT Appointment [facility] [address] [place] [address] 11/19/2024 11:15 AM EDT Office Visit [facility] Multidisciplinary Oncology Clinic [address] [place] [address] Farhad Castillo MD [address] [place] [phone] documented as of this encounter Procedures Procedure Name Priority Date/Time Associated Diagnosis Comments XR CHEST 1 VIEW STAT 07/31/2024 9:42 AM EDT POCT GLUCOSE METER UNSOLICITED RESULTS Routine 07/31/2024 9:31 AM EDT FL LESS THAN 1 HOUR (NON-REPORTABLE) Routine 07/31/2024 8:59 AM EDT CO INSERT TUNNELED CV CATH WITH PORT 07/31/2024 7:13 AM EDT Metastatic colon cancer to liver (CMS/HCC) Special Needs requires fluoro and C-arm capable bed POCT GLUCOSE METER UNSOLICITED RESULTS Routine 07/31/2024 6:39 AM EDT documented in this encounter Results * XR Chest 1 View (07/31/2024 9:42 AM EDT) Anatomical Region Laterality Modality Chest Digital Radiogra phy Impressions 07/31/2024 9:46 AM EDT No complication from port placement. CRITICAL RESULT: No. COMMUNICATION: Per this written report. Drafted by Tayo Escalante MD on 07/31/2024 9:45 AM Final report signed by Tayo Escalante MD on 07/31/2024 9:46 AM Narrative 07/31/2024 9:46 AM EDT CLINICAL INDICATION: s/p Left Subclavian port placement TECHNIQUE: XR CHEST 1 VIEW COMPARISON: Chest CT July 23, 2024 FINDINGS: Interval placement of Port-A-Cath from a left subclavian approach, with tip in the SVC. No pneumothorax. No airspace opacities. Mild basilar atelectasis. Procedure Note Tayo Escalante MD - 07/31/2024 CLINICAL INDICATION: s/p Left Subclavian port placement TECHNIQUE: XR CHEST 1 VIEW COMPARISON: Chest CT July 23, 2024 FINDINGS: Interval placement of Port-A-Cath from a left subclavian approach, withtip in the SVC. No pneumothorax. No airspace opacities. Mild basilaratelectasis. IMPRESSION: No complication from port placement. CRITICAL RESULT: No. COMMUNICATION: Per this written report. Drafted by Tayo Escalante MD on 07/31/2024 9:45 AM Final report signed by Tayo Escalante MD on 07/31/2024 9:46 AM Farhad Castillo MD IMG XR PROCEDURES Final Re sult * (ABNORMAL) POCT glucose meter (07/31/2024 9:31 AM EDT) POCT Glucose 127(H) 74 - 99 mg/dL 07/31/2024 2:28 PM EDT [facility] Comment:Accuracy of a glucos e result obtained from a capillary whole blood specimen relies upon adequate, non-compromised capillary blood flow. If the capillary glucose result is not consistent with the patient's clinical signs and symptoms, glucose testing should be repeated with either an arterial or venous sample on the glucometer or sent to the main labortory for testing. Comment 07/31/2024 2:28 PM EDT [facility] Tmr Teacher ID Rosalinda Pool 08/01/19 25 2:28 PM EDT [facility] Device ID [id number] 07/31/2024 2:28 PM EDT [facility] Specimen Type POC Capillary 07/31/2024 2:28 PM EDT [facility] Blood Capillary blood specimen / Unknown 07/31/2024 9:31 AM EDT 07/31/2024 2:28 PM EDT us Farhad Castillo MD LAB POINT OF CARE TEST DOCKED DEVICE UNSOLICITED RESULTS Final Result [facility] [address] [place] [address] * FL Less than 1 Hour Intraoperative (07/31/2024 8:59 AM EDT) Narrative IMAGING - 07/31/2024 8:59 AM EDT Images were obtained for surgical purposes. See Farhad Castillo's surgical note in the patient's chart for the findings. Farhad Castillo MD IMG FLUOROSCOPY PROCEDURES Final Result IMAGING * (ABNORMAL) POCT glucose meter (07/31/2024 6:39 AM EDT) POCT Glucose 157(H) 74 - 99 mg/dL 07/31/2024 6:44 AM EDT [facility] Comment:Accuracy of a glucos e result obtained from a capillary whole blood specimen relies upon adequate, non-compromised capillary blood flow. If the capillary glucose result is not consistent with the patient's clinical signs and symptoms, glucose testing should be repeated with either an arterial or venous sample on the glucometer or sent to the main labortory for testing. Comment 07/31/2024 6:44 AM EDT [facility] Tmr Teacher ID Lnyette Gotti 6:44 AM EDT [facility] Device ID [id number] 07/31/2024 6:44 AM EDT [facility] Specimen Type POC Venous 07/31/2024 6:44 AM EDT [facility] Blood Venous blood specimen / Unknown 07/31/2024 6:39 AM EDT 07/31/2024 6:44 AM EDT Farhad Castillo MD LAB POINT OF CARE TEST DOCKED DEVICE UNSOLICITED RESULTS Final Result Performing Organization Address City/[facility]/ZIP Co de Phone Number [facility] [address] [place] [address] documented in this encounter Visit Diagnoses Diagnosis Metastatic colon cancer to liver (CMS/HCC)- Primary Metastatic colon cancer to liver (CMS/HCC) [C18.9, C78.7] documented in this encounter Admitting Diagnoses Diagnosis Metastatic colon cancer to liver (CMS/HCC) documented in this encounter Administered Medications Inactive Administered Medications - up to 3 most recent administrations Medication Order MAR Action Action Date Dose Rate Site acetaminophen (Tylenol) tablet 1,000 mg 1,000 mg, Oral, Once as needed, 1 dose, Starting on Sat07/31/24 at 0918, Until Sat07/31/24 at 1213, Routine, Recovery (Phase I only), pain score of >1 out of 10 fentaNYL (Sublimaze) injection 25 mcg 25 mcg, Intravenous, Every 5 min PRN, 2 doses, Starting on Sat07/31/24 at 0918, Until Sat07/31/24 at 121, Routine, Recovery (Phase I only), pain score of 3-4 out of 10 heparin (porcine) injection 5,000 Units 5,000 Units, Subcutaneous, Once, 1 dose, On Sat07/31/24 at 0630, Routine, Holding - Preprocedure Given 07/31/2024 6:44 AM EDT 5,000 Units Right Upper Arm (Back) HYDROmorphone (Dilaudid) injection 0.5 mg 0.5 mg, Intravenous, Every 10 min PRN, 2 doses, Starting on Sat07/31/24 at 0918, Until Sat07/31/24 at 1213, Routine, Recovery (Phase I only), pain score of 9-10 out of 10 naloxone (Narcan) injection 0.4 mg 0.4 mg, Intravenous, As needed, Starting on Sat07/31/24 at 0918, Until Sat07/31/24 at 1213, Routine, Recovery (Phase I only), respiratory depression ondansetron (Zofran) injection 4 mg 4 mg, Intravenous, Once as needed, 1 dose, Starting on Sat07/31/24 at 0918, Until Sat07/31/24 at 1213, Routine, Recovery (Phase I only), nausea, vomiting oxyCODONE (Roxicodone) immediate release tablet 10 mg 10 mg, Oral, Once as needed, 2 doses, Starting on Sat07/31/24 at 0918, Until Sat07/31/24 at 121, Routine, Recovery (Phase I only), pain score of 6-8 out of 10 oxyCODONE (Roxicodone) immediate release tablet 5 mg 5 mg, Oral, Once as needed, 2 doses, Starting on Sat07/31/24 at 0918, Until Sat07/31/24 at 121, Routine, Recovery (Phase I only), pain score of 3-5 out of 10 Povidone-Iodine 5 % swab solution 1 Application Nasal, Once, 1 dose, On Sat07/31/24 at 0715, Routine Given 07/31/2024 6:40 AM EDT 1 Application sodium chloride 0.9 % flush 10 mL 10 mL, Intravenous, Every 12 hours, First dose on Sat07/31/24 at 0715, Until Discontinued, Routine, Holding - Preprocedure sodium chloride 0.9 % flush 10 mL 10 mL, Intravenous, As needed, Starting on Sat07/31/24 at 0615, Until Sat07/31/24 at 1213, Routine, Holding - Preprocedure, line care sodium chloride 0.9 % flush 10 mL 10 mL, Intravenous, Every 12 hours, First dose on Sat07/31/24 at 0815, Until Discontinued, Routine, Holding - Preprocedure sodium chloride 0.9 % flush 10 mL 10 mL, Intravenous, As needed, Starting on Sat07/31/24 at 0716, Until Sat07/31/24 at 1213, Routine, Holding - Preprocedure, line care documented in this encounter Active and Recently Administered Medications Times are shown in EDT. Scheduled Medication Order 07/29/2024 07/30/2024 07/31/2024 heparin (porcine) injection 5,000 Units (COMPLETED) 5,000 Units, Subcutaneous, Once, 1 dose, On Sat07/31/24 at 0630, Routine, Holding - Preprocedure 0644 (Given - Provid er: Lynette Gotti RN) Povidone-Iodine 5 % swab solution 1 Application (COMPLETED) Nasal, Once, 1 dose, On Sat07/31/24 at 0715, Routine 0640 (Given - Provid er: Lynette Gotti RN) sodium chloride 0.9 % flush 10 mL(Linked Group 1) 10 mL, Intravenous, Every 12 hours, First dose on Sat07/31/24 at 0715, Until Discontinued, Routine, Holding - Preprocedure 0715 (Canceled Entry - Provider: Automatic Discharge Provider - Comment: Automatically canceled at discontinue of medication order) sodium chloride 0.9 % flush 10 mL(Linked Group 2) 10 mL, Intravenous, Every 12 hours, First dose on Sat07/31/24 at 0815, Until Discontinued, Routine, Holding - Preprocedure 0815 (Canceled Entry - Provider: Automatic Discharge Provider - Comment: Automatically canceled at discontinue of medication order) PRN Medication Order 07/29/2024 07/30/202407/31/2024 acetaminophen (Tylenol) tablet 1,000 mg 1,000 mg, Oral, Once as needed, 1 dose, Starting on Sat07/31/24 at 0918, Until Sat07/31/24 at 1213, Routine, Recovery (Phase I only), pain score of >1 out of 10 bupivacaine-EPINEPHrine PF (Marcaine w/EPI) 0.25% -[id number] injection (CANCELED) As needed, Starting on Sat07/31/24 at 0819, Until Sat07/31/24 at 0912, Routine, Intraprocedure 0819 (Given - Provid er: Logan Mitchell MD - Comment: injected around surgery site) fentaNYL (Sublimaze) injection 25 mcg 25 mcg, Intravenous, Every 5 min PRN, 2 doses, Starting on Sat07/31/24 at 0918, Until Sat07/31/24 at 1213, Routine, Recovery (Phase I only), pain score of 3-4 out of 10 heparin flush (porcine) 100 UNIT/ML injection (CANCELED) As needed, Starting on Sat07/31/24 at 0848, Until Sat07/31/24 at 0912, Routine, Intraprocedure 0848 (Given - Provid er: Logan Mitchell MD - Comment: port left chest 3 cc (300u)) HYDROmorphone (Dilaudid) injection 0.5 mg 0.5 mg, Intravenous, Every 10 min PRN, 2 doses, Starting on Sat07/31/24 at 0918, Until Sat07/31/24 at 1213, Routine, Recovery (Phase I only), pain score of 9-10 out of 10 naloxone (Narcan) injection 0.4 mg 0.4 mg, Intravenous, As needed, Starting on Sat07/31/24 at 0918, Until Sat07/31/24 at 1213, Routine, Recovery (Phase I only), respiratory depression ondansetron (Zofran) injection 4 mg 4 mg, Intravenous, Once as needed, 1 dose, Starting on Sat07/31/24 at 0918, Until Sat07/31/24 at 1213, Routine, Recovery (Phase I only), nausea, vomiting oxyCODONE (Roxicodone) immediate release tablet 10 mg(Linked Group 3) 10 mg, Oral, Once as needed, 2 doses, Starting on Sat07/31/24 at 0918, Until Sat07/31/24 at 1213, Routine, Recovery (Phase I only), pain score of 6-8 out of 10 oxyCODONE (Roxicodone) immediate release tablet 5 mg(Linked Group 3) 5 mg, Oral, Once as needed, 2 doses, Starting on Sat07/31/24 at 0918, Until Sat07/31/24 at 1213, Routine, Recovery (Phase I only), pain score of 3-5 out of 10 sodium chloride 0.9 % flush 10 mL(Linked Group 1) 10 mL, Intravenous, As needed, Starting on Sat07/31/24 at 0615, Until Sat07/31/24 at 1213, Routine, Holding - Preprocedure, line care sodium chloride 0.9 % flush 10 mL(Linked Group 2) 10 mL, Intravenous, As needed, Starting on Sat07/31/24 at 0716, Until Sat07/31/24 at 1213, Routine, Holding - Preprocedure, line care Linked Groups Order Group 1: Insert peripheral IV (CANCELED) Once, On Sat07/31/24 at 0616, For 1 occurrence, Holding - Preprocedure And Saline lock IV (CANCELED) Once, On Sat07/31/24 at 0616, For 1 occurrence, Holding - Preprocedure And sodium chloride 0.9 % flush 10 mLJump to med 10 mL, Intravenous, Every 12 hours, First dose on Sat07/31/24 at 0715, Until Discontinued, Routine, Holding - Preprocedure And sodium chloride 0.9 % flush 10 mLJump to med 10 mL, Intravenous, As needed, Starting on Sat07/31/24 at 0615, Until Sat07/31/24 at 1213, Routine, Holding - Preprocedure, line care Group 2: Insert peripheral IV (CANCELED) Once, On Sat07/31/24 at 0716, For 1 occurrence, Holding - Preprocedure And Saline lock IV (CANCELED) Once, On Sat07/31/24 at 0716, For 1 occurrence, Holding - Preprocedure And sodium chloride 0.9 % flush 10 mLJump to med 10 mL, Intravenous, Every 12 hours, First dose on Sat07/31/24 at 0815, Until Discontinued, Routine, Holding - Preprocedure And sodium chloride 0.9 % flush 10 mLJump to med 10 mL, Intravenous, As needed, Starting on Sat07/31/24 at 0716, Until Sat07/31/24 at 1213, Routine, Holding - Preprocedure, line care Group 3: oxyCODONE (Roxicodone) immediate release tablet 5 mgJump to med 5 mg, Oral, Once as needed, 2 doses, Starting on Sat07/31/24 at 0918, Until Sat07/31/24 at 1213, Routine, Recovery (Phase I only), pain score of 3-5 out of 10 Or oxyCODONE (Roxicodone) immediate release tablet 10 mgJump to med 10 mg, Oral, Once as needed, 2 doses, Starting on Sat07/31/24 at 0918, Until Sat07/31/24 at 1213, Routine, Recovery (Phase I only), pain score of 6-8 out of 10 documented in this encounter Additional Health Concerns Assessment Noted Time A fall risk assessment has been complete d for the patient 07/23/2024 8:54 AM EDT A Body Mass Index follow-up plan has been documented for the patient 07/24/2024 8:25 AM EDT documented as of this encounter Care Teams Drafting Detailer Relationship Specialty Start Date End Date Tayo Jones MD [address] [place] [address] PCP - General 07/14/24 documented as of this encounter
--- OUTSIDE RECORDS SUMMARY | 2024-07-31 07:29 | XMS_ITS | Encounter Summary ---
Author Organization [facility] Address [address] [id number] Care Team Providers Care Vp Design Name Role Phone Tayo Jones MD Primary Care Provider [phone] Reason for Visit * Auth/Cert (Routine) Specialty Diagnoses / Procedures Referred By Samia pagan Referred To Contact Diagnoses Metastatic colon cancer to liver (CMS/HCC) Metastatic colon cancer to liver (CMS/HCC) [C18.9, C78.7] Procedures [place] INSERT TUNNELED CV CATH WITH PORT CHG FLUOROGUIDE CNTRL LYNN ACCESS,PLACE,REPLACE,REMOVE INSERTION, TUNNELED CENTRAL VENOUS DEVICE, WITH PORT Farhad Castillo MD [address] [place] [phone] Phone: tel: fax: [facility] [address] [place] [phone] Phone: tel: Referral ID Status Reason Start Date Expiration Date Visits Re quested Visits Authorized [id number] 1 1 Encounter Details Date Type Department Care Team (Late st Contact Info) Description 07/31/2024 7:29 AM EDT Anesthesia Event [facility] [address] [place] [phone] Wilian Jefferson MD [address] [place] [phone] Ebenezer Madera MD [address] [place] [address] Anesthesia Record Procedure Summary Procedure Name Responsible [...] with Farhad Castillo MD on 07/31/2024 in [facility]. Presented with abdominal pain and leukocytosis with [...] note. He represented to his medical oncologist ([facility]; Tayo Matthew) in April for follow up. [...] CAD, CHF, dyspnea, dysrhythmias, pacemaker or past [place]. hypertension: is well controlled. Does not have [...] RAYO phone screen with patient's sister and correction nurse Patient: Nayan Womack Procedure Information Date/Time: 07/31/24729 Procedure: INSERTION, TUNNELED CENTRAL VENOUS DEVICE, WITH PORT Location: [facility] [facility] Surgeons: Farhad Castillo MD Relevant Problems [...] Info) Description 11/19/2024 8:30 AM EDT Appointment [facility] [address] [place] [address] 11/19/2024 11:15 AM EDT Office Visit [facility] Multidisciplinary Oncology Clinic [address] [place] [address] Farhad Castillo MD [address] [facility] [address] [place] [address] documented as of this encounter Procedures Procedure Name Priority Date/Time Associated Diagnosis Comments PB ANESTHESIA PLACEHOLDER Routine 07/31/2024 7:33 AM EDT [place] AN ELECTIVE ENDOTRACHEAL AIRWAY Routine 07/31/2024 7:33 AM EDT documented in this encounter Results * [place] AN ELECTIVE ENDOTRACHEAL AIRWAY, PB ANESTHESIA PLACEHOLDER [...] documented as of this encounter Care Teams Vp Design Relationship Specialty Start Date End Date Tayo Jones MD [address] [place] [address] PCP - General 07/14/24 documented as of this encounter
--- OUTSIDE RECORDS SUMMARY | 2024-07-31 07:30 | XMS_ITS | Encounter Summary ---
Author Organization [facility] Address [address] [place] [address] Care Team Providers Care Paediatric Thoracic Physician Name Role Phone Tayo Jones MD Primary Care Provider [phone] Reason for Visit * Auth/Cert (Routine) Specialty Diagnoses / Procedures Referred By Samia pagan Referred To Contact Diagnoses Metastatic colon cancer to liver (CMS/HCC) Metastatic colon cancer to liver (CMS/HCC) [C18.9, C78.7] Procedures HI INSERT TUNNELED CV CATH WITH PORT CHG FLUOROGUIDE CNTRL LYNN ACCESS,PLACE,REPLACE,REMOVE INSERTION, TUNNELED CENTRAL VENOUS DEVICE, WITH PORT Farhad Castillo MD [address] [place] [phone] Phone: tel: fax: [facility] [address] [place] [phone] Phone: tel: Referral ID Status Reason Start Date Expiration Date Visits Re quested Visits Authorized [id number] 1 1 Encounter Details Date Type Department Care Team (Late st Contact Info) Description 07/31/2024 7:30 AM EDT - 07/31/2024 9:00 AM EDT Surgery [facility] [address] [place] [phone] Farhad Castillo MD [address] [place] [phone] INSERTION, TUNNELED CENTRAL VENOUS DEVICE, WITH PORT [05711 (CPT )] Surgery Details Date/Time Status Location OR Service Patient Class Case Class Case Type Trauma Case? 07/31/2024 7:30 AM Posted [facility] Outpatient Surgery E-Electi ve Panel 1 Procedure LRB Anes Op Region Wound Class Comments INSERTION, TUNNELED CENTRAL VENOUS DEVICE, WITH PORT N/A General Class I/ Clean Surgeon Surgeon Role Service Panel Farhad Castillo MD Primary Surgical Oncology 1 Logan Mitchell MD Resident - Assisting 1 Special Needs requires fluoro and C-arm capable bed documented in this encounter Social History Tobacco [...] Sign Reading Time Taken Comments Blood Pressure 140/78 07/31/2024 6:25 AM EDT Pulse 74 07/31/2024 6:25 AM EDT Temperature 36.4 C (97.5 F) 07/31/2024 6:25 AM EDT Respiratory Rate 18 07/31/2024 6:25 AM EDT Oxygen Saturation 96% 07/31/2024 6:25 AM EDT Inhaled Oxygen Concentration - - [...] Not at all 07/23/2024 8:54 AM EDT Shay, Keya L documented as of this encounter Discharge Instructions [...] AM EDT Operative Note Date: 07/31/24 Location: [facility] Name: Nayan Womack, : 1965, Diagnoses: Pre-op Diagnosis Metastatic colon cancer to liver (CMS/HCC) Post-op Diagnosis Metastatic colon cancer to liver (CMS/HCC) Procedure(s): Left Subclavian Vein 8-Maltese Single Lumen PORT Placement with Fluoroscopic Guidance Attending Surgeon(s): * Farhad Castillo - Primary Refrigerator Crater(s): * Logan Mitchell MD - Resident - Assisting Anesthesia: General ASA: III Blood Administration: Blood Product Administration History None Estimated Blood Loss: Minimal Drains: * None in log * Implants Type Name Action Serial No. Other Medication Pump PORT CLEARVUE POWER 8FR - S. - [id number] Implanted . Specimen: Findings: Left subclavian vein [...] his sister who is his power of employment law attorney. Patient was brought to the operating room suite and placed in the operating room table in a supine position. Bilateral lower extremity sequential compression devices were in place and functional he then had induction of general endotracheal anesthesia. Patient had a very large aecvedo that was significantly interfering in his neck,some [...] pocket in order to accommodate an 8 Maltese single-lumen port. 2-0 Prolene stay sutures were [...] 07/31/2024 10:23 AM EDT Associated attestation - Farahd Castillo MD - 07/31/2024 10:23 AM EDT I saw and evaluated the patient with the resident/fellow. I discussed the case with the resident/fellow and agree with the findings and plan as documented. documented in this encounter Plan of Treatment Upcoming Encounters Date Type Department Care Team (Late st Contact Info) Description 11/19/2024 8:30 AM EDT Appointment [facility] [address] [place] [address] 11/19/2024 11:15 AM EDT Office Visit [facility] Multidisciplinary Oncology Clinic [address] [place] [address] Farhad Castillo MD [address] [facility] [address] [place] [address] documented as of this encounter Procedures Procedure Name Priority Date/Time Associated Diagnosis Comments XR CHEST 1 VIEW STAT 07/31/2024 9:42 AM EDT POCT GLUCOSE METER UNSOLICITED RESULTS Routine 07/31/2024 9:31 AM EDT FL LESS THAN 1 HOUR (NON-REPORTABLE) Routine 07/31/2024 8:59 AM EDT HI INSERT TUNNELED CV CATH WITH PORT 07/31/2024 [...] for testing. Comment 07/31/2024 2:28 PM EDT [facility] Manager Research ID Rosalinda Pool 08/01/19 25 2:28 PM EDT [facility]ARE [facility] Device ID [id number] 07/31/2024 2:28 PM EDT [facility] Specimen Type POC Capillary 07/31/2024 2:28 PM EDT [facility] Blood Capillary blood specimen / Unknown 07/31/2024 9:31 AM EDT 07/31/2024 2:28 PM EDT Farhad Castillo MD LAB POINT OF CARE TEST DOCKED DEVICE UNSOLICITED RESULTS Final Result Performing Organization Address City/[facility]/ZIP Co de Phone Number [facility] [address] [place] [address] * [place] Less than 1 Hour Intraoperative (07/31/2024 8:59 AM EDT) Narrative IMAGING - 07/31/2024 8:59 AM EDT Images were obtained for surgical purposes. See Farhad Castillo's surgical note in the patient's chart for the findings. Farhad Castillo MD IMG FLUOROSCOPY PROCEDURES Final Result Performing Organization Address [facility] Co de Phone Number IMAGING * (ABNORMAL) POCT glucose meter (07/31/2024 6:39 AM EDT) POCT Glucose 157(H) 74 - 99 mg/dL 07/31/2024 6:44 AM EDT [facility] Comment:Accuracy of a [...] for testing. Comment 07/31/2024 6:44 AM EDT [facility] Manager Research ID Lynette Gotti 6:44 AM EDT [facility] Device ID [id number] 07/31/2024 6:44 AM EDT [facility] Specimen Type POC Venous 07/31/2024 6:44 AM EDT [facility] Blood Venous blood specimen / Unknown 07/31/2024 6:39 AM EDT 07/31/2024 6:44 AM EDT Farhad Csatillo MD LAB POINT OF CARE TEST DOCKED DEVICE UNSOLICITED RESULTS Final Result Performing Organization Address City/[facility]/ZIP Co de Phone Number [facility] [address] [place] [address] documented in this encounter Visit Diagnoses Diagnosis Metastatic colon cancer to liver (CMS/HCC)- Primary Metastatic colon cancer to liver (CMS/HCC) [C18.9, C78.7] Metastatic colon cancer to liver (CMS/HCC) documented in this encounter Admitting Diagnoses Diagnosis [...] of 10 bupivacaine-EPINEPHrine PF (Marcaine w/EPI) 0.25% -1:700249 injection As needed, Starting on Sat07/31/24 at 0819, Until Sat07/31/24 at 09, Routine, Intraprocedure Given 07/31/2024 8:19 AM EDT 10 mL Chest fentaNYL (Sublimaze) injection 25 mcg 25 mcg, [...] EDT 5,000 Units Right Upper Arm (Back) heparin flush (porcine) 100 UNIT/ML injection As needed, Starting on Sat07/31/24 at 0848, Until Sat07/31/24 at 0912, Routine, Intraprocedure Given 07/31/2024 8:48 AM EDT 3 mL Other HYDROmorphone (Dilaudid) injection 0.5 mg 0.5 mg, [...] Preprocedure 0644 (Given - Provid er: Lynette Gotti, JAN) Povidone-Iodine 5 % swab solution 1 Application [...] of medication order) PRN Medication Order 07/29/2024 07/30/2024 07/31/2024 acetaminophen (Tylenol) tablet 1,000 mg 1,000 mg, Oral, Once as needed, 1 dose, Starting on Sat07/31/24 at 0918, Until Sat07/31/24 at 1213, Routine, Recovery (Phase I only), pain score of >1 out of 10 bupivacaine-EPINEPHrine PF (Marcaine w/EPI) 0.25% -1:126443 injection (CANCELED) As needed, Starting on Sat07/31/24 [...] documented as of this encounter Care Teams Paediatric Thoracic Physician Relationship Specialty Start Date End Date Tayo Jones MD [address] [place] [address] PCP - General 07/14/24 documented as of this encounter
[2024-09-29 09:44] VITALS: BMI 36.8
--- OUTSIDE RECORDS SUMMARY | 2024-09-29 09:46 | XMS_ITS | Encounter Summary ---
Author Organization Healthcare Address [address] [id number] Care Team Providers Care Maintenance Supervisor Name Role Phone Tayo Jones MD Primary Care Provider [phone] Encounter Details Date Type Department Care Team (Late st Contact Info) Description 07/27/2024 Telephone [facility] [address] [place] [address] Farhad Castillo MD [address] [address] Social History Tobacco Use Types Packs/Day Years [...] optimal time of day to reach caller: [phone] ext [phone] Note: Please do not reply [...] [facility] CT [address] [place] [address] 11/19/2024 11:15 AM EDT Office Visit [facility] Multidisciplinary Oncology Clinic [address] [place] [address] Farhad Castillo MD [address] [address] documented as of this encounter Visit Diagnoses Not on filedocumented in this encounter Additional Health Concerns Assessment Noted Time A fall risk assessment has been complete d for the patient 07/23/2024 8:54 AM EDT A Body Mass Index follow-up plan has been documented for the patient 07/24/2024 8:25 AM EDT documented as of this encounter Care Teams Maintenance Supervisor Relationship Specialty Start Date End Date Tayo Jones MD [address] [place] [address] PCP - General 07/14/24 documented as of this encounter
--- OUTSIDE RECORDS SUMMARY | 2024-09-29 09:47 | XMS_ITS | Encounter Summary ---
Author Organization [facility] Address [address] [place] [address] Care Team Providers Care Release Manager Name Role Phone Jeremy Gil MD Unavailable Andres Alcantara DPM Unavailable Grant Fletcher MD Unavailable Niko Cueva MD Unavailable None, None Primary Care Provider UnavailGm Vigil DPM Unavailable [phone] Reina Byrd NP Unavailable Unavailable Encounter Details Date Type Department Care Team (Late st Contact Info) Description 09/08/2020 Clinical Update [facility] Physicians - Infectious Diseases, [facility] [address] [place] [address] [phone] Grant Fletcher MD [address] [place] [address] [id number] Social History Tobacco Use Types Packs/Day Years [...] (SGPT) (09/07/2020) ALT 5 U/L Plasma Result [facility] Grant Fletcher MD CHEMISTRY ORDERABLES Final Re sult * ALKALINE PHOSPHATASE (09/07/2020) Alkaline Phosphatase 98 U/L Plasma Result [facility] Grant Fletcher MD CHEMISTRY ORDERABLES Final Re sult * ALBUMIN (09/07/2020) Albumin 2.6 Plasma Result [facility] Grant Fletcher MD CHEMISTRY ORDERABLES Final [...] on filedocumented in this encounter Care Teams Release Manager Relationship Specialty Start Date End Date None, None [address] [place] [address] PCP - General 10/26/20 Jeremy Gil MD [address] [place] [address] [address] [place] [address] Internal Medicine 08/19/20 Andres Alcantara DPM [address] [facility]. [address] [place] [address] Resident Podiatry 08/22/20 Grant Fletcher MD [address] [facility] [address] [place] [address] Infectious Diseases 09/08/20 Niko Cueva MD 2[address] [facility] [address] [place] [address] Vascular Surgery 09/16/20 Gm Flor DPM [address] [facility]. [address] [place], [place] [address] Podiatry 11/01/20 Reina Byrd NP [address] [facility] [place] [address] Nurse Practitioner Vascular Surgery 11/30/20 documented as of this encounter
--- OUTSIDE RECORDS SUMMARY | 2024-09-29 09:47 | XMS_ITS | Encounter Summary ---
Author Organization Healthcare Address [address] [id number] Care Team Providers Care Fixed Assets Accountant Name Role Phone Tayo Jones MD Primary Care Provider [phone] Encounter Details Date Type Department Care Team (Late st Contact Info) Description 07/27/2024 Telephone [facility] [address] [place] [address] Farhad Castillo MD [address] [address] Social History Tobacco Use Types Packs/Day Years [...] Message Reason for Call: Kim calling from [facility] to speak to Audrey. Best contact number and optimal time of day to reach caller: [phone] ext [phone] Note: Please do not reply [...] Info) Description 11/19/2024 8:30 AM EDT Appointment [facility] [address] [place] [address] 11/19/2024 11:15 AM EDT Office Visit [facility] Multidisciplinary Oncology Clinic [address] [place] [address] Farhad Castillo MD [address] [address] documented as of this encounter Visit Diagnoses Not on filedocumented in this encounter Additional Health Concerns Assessment Noted Time A fall risk assessment has been complete d for the patient 07/23/2024 8:54 AM EDT A Body Mass Index follow-up plan has been documented for the patient 07/24/2024 8:25 AM EDT documented as of this encounter Care Teams Fixed Assets Accountant Relationship Specialty Start Date End Date Tayo Jones MD [address] [place] [address] PCP - General 07/14/24 documented as of this encounter
--- OUTSIDE RECORDS SUMMARY | 2024-09-29 09:47 | XMS_ITS | Encounter Summary ---
Author Organization Healthcare Address [address] [place] [address] Care Team Providers Care Rug Dyer Helper Name Role Phone Tayo Jones MD Primary Care Provider [phone] Encounter Details Date Type Department Care Team ([facility] st Contact Info) Description 07/23/2024 Telephone [facility] [address] [place] [address] Farhad Castillo MD [address] [phone] Social History Tobacco Use Types Packs/Day Years [...] Message Reason for Call: Jamee calling from [facility] for [place] I was able to transfer her call to [facility] Best contact number and optimal time of day to reach caller: Note: Please do not reply to this message. Follow-up communication and further actions as a result of this message need to be communicated with the patient directly, if the patient is not active onMyChart. If the patient is active on MyChart, they will receive notification of the communication/outcome via [employer]. documented in this encounter Plan of Treatment Upcoming Encounters Date Type Department Care Team (Late st Contact Info) Description 11/19/2024 8:30 AM EDT Appointment [facility] [address] [place] [address] 11/19/2024 11:15 AM EDT Office Visit [facility] Multidisciplinary Oncology Clinic [address] [place] [address] Farhad Castillo MD [address] [address] documented as of this encounter Visit Diagnoses Not on filedocumented in this encounter Additional Health Concerns Assessment Noted Time A fall risk assessment has been complete d for the patient 07/23/2024 8:54 AM EDT A Body Mass Index follow-up plan has been documented for the patient 07/24/2024 8:25 AM EDT documented as of this encounter Care Teams Rug Dyer Helper Relationship Specialty Start Date End Date Tayo Jones MD [address] [place] [address] PCP - General 07/14/24 documented as of this encounter
--- OUTSIDE RECORDS SUMMARY | 2024-09-29 09:47 | XMS_ITS | Encounter Summary ---
Author Organization Healthcare Address [address] [place] [address] Care Team Providers Care President & Founder Name Role Phone Tayo Jones MD Primary Care Provider [phone] Encounter Details Date Type Department Care Team (Late Contact Info) Description 06/15/2024 Orders Only External Location [address] [place] [address] Provider, External Social History Tobacco Use Types [...] Info) Description 11/19/2024 8:30 AM EDT Appointment [facility] [address] [place] [address] 11/19/2024 11:15 AM EDT Office Visit [facility] Multidisciplinary Oncology Clinic [address] [place] [address] Farhad Castillo MD [address] [address] documented as of this encounter Procedures Procedure [...] on filedocumented in this encounter Care Teams President & Founder Relationship Specialty Start Date End Date Tayo Jones MD [address] [place] [address] PCP - General 07/14/24 documented as of this encounter
--- OUTSIDE RECORDS SUMMARY | 2024-09-29 09:47 | XMS_ITS | Encounter Summary ---
Author Organization [facility] Address [address] [place] [address] Care Team Providers Care Tailor Garment Fitter Name Role Phone Tayo Jones MD Primary Care Provider [phone] Encounter Details Date Type Department Care Team (Late Contact Info) Description 01/15/2023 Orders Only External Location [address] [place] [address] Provider, External Social History Tobacco Use Types [...] Info) Description 11/19/2024 8:30 AM EDT Appointment [facility] [address] [place] [address] 11/19/2024 11:15 AM EDT Office Visit [facility] Multidisciplinary Oncology Clinic [address] [place] [address] Farhad Castillo MD [address] [address] documented as of this encounter Procedures Procedure [...] on filedocumented in this encounter Care Teams Tailor Garment Fitter Relationship Specialty Start Date End Date Tayo Jones MD [address] [place] [phone] PCP - General 07/14/24 documented as of this encounter
--- OUTSIDE RECORDS SUMMARY | 2024-09-29 09:47 | XMS_ITS | Encounter Summary ---
Author Organization [facility] Address [address] [place] [address] Care Team Providers Care Pattern Finisher Name Role Phone Tayo Jones MD Primary Care Provider [phone] Encounter Details Date Type Department Care Team (Late Contact Info) Description 02/18/2023 Orders Only External Location [address] [place] [address] Provider, External Social History Tobacco Use Types [...] Info) Description 11/19/2024 8:30 AM EDT Appointment [facility] [address] [place] [address] 11/19/2024 11:15 AM EDT Office Visit [facility] Multidisciplinary Oncology Clinic [address] [place] [address] Farhad Castillo MD [address] [address] documented as of this encounter Procedures Procedure [...] on filedocumented in this encounter Care Teams Pattern Finisher Relationship Specialty Start Date End Date Tayo Jones MD [address] [place] [address] PCP - General 07/14/24 documented as of this encounter
--- OUTSIDE RECORDS SUMMARY | 2024-09-29 09:47 | XMS_ITS | Encounter Summary ---
Author Organization [facility] Address [address] [place] [address] Care Team Providers Care Park Superintendent Name Role Phone Tayo Jones MD Primary Care Provider [phone] Encounter Details Date Type Department Care Team (Late Contact Info) Description 07/16/2024 Lab Requisition [facility] [address] [place] [address] Farhad Castillo MD [address] [address] Other acute appendicitis without perforation [...] Info) Description 11/19/2024 8:30 AM EDT Appointment [facility] [address] [place] [address] 11/19/2024 11:15 AM EDT Office Visit [facility] Multidisciplinary Oncology Clinic [address] [place] [address] Farhad Castillo MD [address] [address] documented as of this encounter Procedures Procedure Name Priority Date/Time Associated Diagnosis Comments SURGICAL PATHOLOGY CONSULT Routine 07/16/2024 1:13 PM EDT Other acute appendicitis without perforation or gangrene documented in this encounter Results * Surgical Pathology Consult (07/16/2024 1:13 PM EDT) Case Report Sugical Pathology Consult Case: [id number] Authorizing Provider: Farhad Castillo MD Collected: 07/16/2024 1313 Ordering Location: [facility] Lab Received: 07/16/2024 1313 Pathologist: Constance Murphy MD Specimen: Colon, [id number] 07/17/2024 1:08 PM EDT [facility] Final Diagnosis RIGHT COLON AND TERMINAL ILEUM, RIGHT HEMICOLECTOMY ([id number]; 11/09/2022): - 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 - TUMOR BUDDING SCORE: HIGH (10 OR GREATER). - NO TUMOR SEEN IN TWENTY ONE LYMPH NODES (0/21). 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 07/17/2024 1:08 PM EDT [facility] Clinical Information K35.890 - Other acute appendicitis without perforation or gangrene [ICD-10-CM] 07/17/2024 1:08 PM EDT [facility] Gross Description [id number]. [id number] Received along with a corresponding pathology report from [facility] are 29 slides labeled outside case: [id number] collected on 11/09/2022. 07/17/2024 1:08 PM EDT [facility] Note: A resident was involved in the service. I attest I examined the relevant preparations for the specimens and confirmed the diagnosis or interpretation. 07/17/2024 1:08 PM EDT [facility] Tissue Colon structure / Unknown 07/16/2024 1:13 PM EDT 07/16/2024 1:13 PM EDT us Farhad Castillo MD LAB PATHOLOGY ORDERABLES F inal Result [facility] [address] [place] [address] documented in this encounter Visit Diagnoses Diagnosis Other acute appendicitis without perforation or gangrene documented in this encounter Care Teams Park Superintendent Relationship Specialty Start Date End Date Tayo Jones MD [address] [place] [address] PCP - General 07/14/24 documented as of this encounter
--- OUTSIDE RECORDS SUMMARY | 2024-09-29 09:47 | XMS_ITS | Encounter Summary ---
Author Organization [facility] Address [address] [place] [address] Care Team Providers Care Industrial Sales Representative Name Role Phone Tayo Jones MD Primary Care Provider [phone] Encounter Details Date Type Department Care Team (Late Contact Info) Description 05/06/2024 Orders Only External Location [address] [place] [address] Provider, External Social History Tobacco Use Types [...] Info) Description 11/19/2024 8:30 AM EDT Appointment [facility] [address] [place] [address] 11/19/2024 11:15 AM EDT Office Visit [facility] Multidisciplinary Oncology Clinic [address] [place] [address] Farhad Castillo MD [address] [address] documented as of this encounter Procedures Procedure [...] on filedocumented in this encounter Care Teams Industrial Sales Representative Relationship Specialty Start Date End Date Tayo Jones MD [address] [place] [id number] PCP - General 07/14/24 documented as of this encounter
--- OUTSIDE RECORDS SUMMARY | 2024-09-29 09:47 | XMS_ITS | Encounter Summary ---
Author Organization [facility] Address [address] [place] [address] Care Team Providers Care Wildlife Biology Internship Name Role Phone Tayo Jones MD Primary Care Provider [phone] Encounter Details Date Type Department Care Team (Late Contact Info) Description 05/06/2024 Orders Only External Location [address] [place] [address] Provider, External Social History Tobacco Use Types [...] Info) Description 11/19/2024 8:30 AM EDT Appointment [facility] [address] [place] [address] 11/19/2024 11:15 AM EDT Office Visit [facility] Multidisciplinary Oncology Clinic [address] [place] [address] Farhad Castillo MD [address] [address] documented as of this encounter Procedures Procedure [...] on filedocumented in this encounter Care Teams Wildlife Biology Internship Relationship Specialty Start Date End Date Tayo Jones MD [address] [place] [phone] PCP - General 07/14/24 documented as of this encounter
--- OUTSIDE RECORDS SUMMARY | 2024-09-29 09:47 | XMS_ITS | Encounter Summary ---
Author Organization [facility] Address [address] [place] [address] Care Team Providers Care Director Of Recruiting Name Role Phone Tayo Jones MD Primary Care Provider [phone] Encounter Details Date Type Department Care Team (Late Contact Info) Description 05/31/2023 Orders Only External Location [address] [place] [address] Provider, External Social History Tobacco Use Types [...] Info) Description 11/19/2024 8:30 AM EDT Appointment [facility] [address] [place] [address] 11/19/2024 11:15 AM EDT Office Visit [facility] Multidisciplinary Oncology Clinic [address] [place] [address] Farhad Castillo MD [address] [address] documented as of this encounter Procedures Procedure [...] on filedocumented in this encounter Care Teams Director Of Recruiting Relationship Specialty Start Date End Date Tayo Jones MD [address] [place] [phone] PCP - General 07/14/24 documented as of this encounter
--- OUTSIDE RECORDS SUMMARY | 2024-09-29 09:48 | XMS_ITS | Clinical Summary ---
Author Organization [facility] Address [address] [place] [address] Care Team Providers Care Fiber Optic Assembly Worker Name Role Phone Jeremy Gil MD Unavailable [phone] Andres Alcantara DPM Unavailable Grant Fletcher MD Unavailable [phone] Niko Cueva MD Unavailable None, None Primary Care Provider UnavailGm Vigil DPM Unavailable Reina Byrd NP Unavailable Unavailable Allergies No known active allergies Medications Insulin Glargine (Lantus) 100 unit/mL (3 mL) Solostar INPNIndications :Type 2 diabetes mellitus with hyperglycemia, with long-term current use of insulin ([facility]) 16 Units by Subcutaneous route every 24 [...] hyperglycemia, with long-term current use of insulin ([facility]) PVD (peripheral vascular disease) ([facility]) Other osteomyelitis of left foot Social History [...] Advance Directives For more information, please contact: [phone] * Full Code (Latest Code Status on File) Date Activated Date Inactivated Comments 08/19/2020 3:05 AM No automated ch est compression devices for VAD Patients Care Teams Fiber Optic Assembly Worker Relationship Specialty Start Date End Date None, None [address] [place] [address] PCP - General 10/26/20 Jeremy Gil MD [address] [facility] [address] [place] [address] Internal Medicine 08/19/20 Andres Alcantara DPM [address] [facility] [place] [address] Resident Podiatry 08/22/20 Grant Fletcher MD [address] [place] [address] [address] [place] [address] Infectious Diseases 09/08/20 Niko Cueva MD [address] [place] [address] [address] [place] [address] Vascular Surgery 09/16/20 Gm Flor DPM [address] [place] [place] [address] [place] [address] Podiatry 11/01/20 Reina Byrd NP [address] [place] [address] [place] [address] Nurse Practitioner Vascular Surgery 11/30/20
--- OUTSIDE RECORDS SUMMARY | 2024-09-29 09:48 | XMS_ITS ---
Author Organization [facility] Address [address] [place] [id number] Care Team Providers Care Strategic Partnership Representative Name Role Phone Tayo Jones MD Primary Care Provider [phone] Active Problems Problem Noted Date Diagnosed Date [...]
--- OUTSIDE RECORDS SUMMARY | 2024-09-29 09:48 | XMS_ITS | Encounter Summary ---
Author Organization Healthcare Address [address] [place] [address] Care Team Providers Care Table Assembler Metal Name Role Phone Tayo Jones MD Primary Care Provider Encounter Details Date Type Department Care Team (Late Contact Info) Description 01/24/2023 Orders Only External Location [address] [place] [address] Sue Pope MD [address] [place] [address] [id number] Social History Tobacco Use Types Packs/Day Years [...] Info) Description 11/19/2024 8:30 AM EDT Appointment [facility] [address] [place] [address] 11/19/2024 11:15 AM EDT Office Visit [facility] Multidisciplinary Oncology Clinic [address] [place] [address] Farhad Castillo MD [address] [address] documented as of this encounter Procedures Procedure [...] on filedocumented in this encounter Care Teams Table Assembler Metal Relationship Specialty Start Date End Date Tayo Jones MD [address] [place] [phone] PCP - General 07/14/24 documented as of this encounter
--- OUTSIDE RECORDS SUMMARY | 2024-09-29 09:48 | XMS_ITS | Encounter Summary ---
Author Organization Healthcare Address [address] [place] [address] Care Team Providers Care Water Resource Manager Name Role Phone Tayo Jones MD Primary Care Provider [phone] Encounter Details Date Type Department Care Team (Late Contact Info) Description 01/15/2023 Orders Only External Location [address] [place] [address] Sue Pope MD [address] [place] [id number] Social History Tobacco Use Types Packs/Day Years [...] Description 11/19/2024 8:[address] [facility] [address] [place] [address] 11/19/2024 11:15 AM EDT Office Visit [facility] Multidisciplinary Oncology Clinic [address] [place] [address] Farhad Castillo MD [address] [address] documented as of this encounter Procedures Procedure [...] on filedocumented in this encounter Care Teams Water Resource Manager Relationship Specialty Start Date End Date Tayo Jones MD [address] [place] [phone] PCP - General 07/14/24 documented as of this encounter
--- OUTSIDE RECORDS SUMMARY | 2024-09-29 09:48 | XMS_ITS | Clinical Summary ---
Author Organization [facility] Address [address] [place] [address] Care Team Providers Care [employer] Facer Name Role Phone Tayo Jones MD Primary Care Provider [phone] Allergies No known active allergies Medications carvedilol [...] Orders Only [facility] [address] [place] [address] Farhad Castillo MD Metastatic colon cancer to liver (CMS/HCC) (Primary Dx) 07/31/2024 7:30 AM EDT - 07/31/2024 9:00 AM EDT Surgery [facility] [address] [place] [address] Farhad Castillo MD INSERTION, TUNNELED CENTRAL VENOUS DEVICE, WITH PORT [67415 (CPT )] 07/31/2024 7:29 AM EDT Anesthesia Event [facility] [address] [place] [phone] Wilian Jefferson MD Latham, Jeremy J, MD 07/31/2024 5:40 AM EDT - 07/31/2024 10:10 AM EDT Hospital Encounter [facility] [address] [place] [address] Farhad Castillo MD Metastatic colon cancer to liver (CMS/HCC) [C18.9, C78.7] (Primary Dx) Discharge Disposition: Home or Self Care 07/31/2024 Travel 07/29/2024 Telephone [facility] [address] [place] [phone] Farhad Castillo MD 07/27/2024 10:00 AM EDT Pre-Admission Testing [facility] Pre-op Clinic [address], [address] [place] [address] 07/27/2024 Telephone [facility] [address] [place] [address] Farhad Castillo MD 07/27/2024 Telephone [facility] [address] [place] [phone] Farhad Castillo MD 07/27/2024 Travel 07/23/2024 11:10 AM EDT - 07/23/2024 11:59 PM EDT Hospital Encounter [facility] [address] [place] [address] Metastatic colon cancer to liver (CMS/HCC) Discharge Disposition: Home or Self Care 07/23/2024 8:30 AM EDT Office Visit [facility] [address] [place] [phone] Farhad Castillo MD Metastatic colon cancer to liver (CMS/HCC) (Primary Dx) 07/23/2024 Telephone [facility] [address] [place] [phone] Farhad Castillo MD 07/23/2024 Travel 07/16/2024 Lab Requisition [facility] [address] [place] [phone] Farhad Castillo MD Other acute appendicitis without [...] [facility] [address] [place] [address] 11/19/2024 11:15 AM EDT Office Visit [facility] Mult[facility] On[facility] Clinic [address] [place] [address] Farhad Castillo MD [address] [address] Health Maintenance Due Date Last [...] 1983 UKY-Zoster Vaccines (1 of 2) 1983 PDO-[id number] Vaccine ( season) 2023 01/15/2022, 03/28/2021, 07/27/2020, [...] this topic Medical Devices Implanted Type Area Live In Housekeeper Nanny Device Identifier Shelf Expiration Date Model / Serial / Lot Port Clearvue Power 8fr - S. - [id number] Implanted:Qty : 1 on 07/31/2024 by Farhad Castillo MD at [facility] Other Medication Pump Left: Chest [employer]-[id number] 07/13/2025 [id number] / . / [id number] Procedures Procedure Name Priority Date/Time Associated Diagnosis Comments XR CHEST 1 VIEW STAT 07/31/2024 9:42 AM EDT POCT GLUCOSE METER UNSOLICITED RESULTS Routine 07/31/2024 9:31 AM EDT FL LESS THAN 1 HOUR (NON-REPORTABLE) Routine 07/31/2024 8:59 AM EDT PB ANESTHESIA PLACEHOLDER Routine 07/31/2024 7:33 AM EDT MT AN ELECTIVE ENDOTRACHEAL AIRWAY Routine 07/31/2024 7:33 AM EDT MT INSERT TUNNELED CV CATH WITH PORT 07/31/2024 [...] 07/31/2024 2:28 PM EDT [facility] Color Depositing Machine Tender ID Rosalinda Pool 08/01/19 2:28 PM EDT [facility] Device ID [id number] 07/31/2024 2:28 PM EDT [facility] Specimen Type POC Capillary 07/31/2024 2:28 PM EDT [facility] Blood Capillary blood specimen / Unknown 07/31/2024 9:31 AM EDT 07/31/2024 2:28 PM EDT Farhad Castillo MD LAB POINT OF CARE TEST DOCKED DEVICE UNSOLICITED RESULTS Final Result [facility] [address] [place] [id number] * FL Less than 1 Hour Intraoperative (07/31/2024 8:59 AM EDT) Narrative IMAGING - 07/31/2024 8:59 AM EDT Images were obtained for surgical purposes. See Farhad Castillo's surgical note in the patient's chart for the findings. Farhad Castillo MD IMG FLUOROSCOPY PROCEDURES Final Result IMAGING * MT AN ELECTIVE ENDOTRACHEAL AIRWAY, PB ANESTHESIA PLACEHOLDER [...] grade 2a view with lopro 4. Result [facility] Wilian Jefferson MD ANESTHESIA ORDERABLES Final Res [...] Total DLP (Dose-Length Product): 2037.69 mGy.cm (accession [id number]), 2037.69 mGy.cm (accession [id number]) Please note: The reported value represents the [...] Total DLP (Dose-Length Product): 2037.69 mGy.cm (accession [id number]),2037.69 mGy.cm (accession [id number]) Please note: The reported valuerepresents the total [...] Total DLP (Dose-Length Product): 2037.69 mGy.cm (accession [id number]), 2037.69 mGy.cm (accession [id number]) Please note: The reported value represents the [...] Total DLP (Dose-Length Product): 2037.69 mGy.cm (accession [id number]),2037.69 mGy.cm (accession [id number]) Please note: The reported valuerepresents the total [...] LAB COAGULATION METHOD 07/23/2024 11:15 AM EDT [facility] Blood Venous blood specimen / Unknown Venipuncture / Unknown 07/23/2024 10:36 AM EDT 07/23/2024 10:54 AM EDT Farhad Castillo MD LAB BLOOD ORDERABLES Final Result Performing Organization Address [facility] Co de Phone Number [facility] [address] [place] [address] * (ABNORMAL) Prothrombin Time/INR (07/23/2024 10:36 AM EDT) Prothrombin Time 14.6(H) 12.0 - 14.3 sec LAB COAGULATION METHOD 07/23/2024 11:15 AM EDT [facility] INR 1.1 0.9 - 1.1 LAB COAGULATION METHOD 07/23/2024 11:15 AM EDT [facility] Blood Venous blood specimen / Unknown Venipuncture / Unknown 07/23/2024 10:36 AM EDT 07/23/2024 10:54 AM EDT Narrative [facility] - 07/23/2024 11:15 AM EDT OPTIMAL INR RANGES FOR PATIENT ON ORAL ANTICOAGULANT THERAPY Prevention of venous thromboembolism INR 2.0 to 3.0 In patients with heart disease: Atrial fibrillation INR 2.0 to 3.0 Valvular heart disease INR 2.0 to 3.0 Tissue heart valves INR 2.0 to 3.0 Mechanical prosthetic valves INR 2.5 to 3.5 Prevention of recurrent HI INR 2.5 to 3.5 us Farhad Castillo MD LAB BLOOD ORDERABLES Final Result Performing Organization Address [facility]/ZIP Co de Phone Number [facility] [address] [place] [address] * (ABNORMAL) CBC W/O Differential (07/23/2024 10:36 AM EDT) WBC Count 13.58(H) 3.70 - 10.30 10*3/uL LAB HEMATOLOGY METHOD 07/23/2024 11:01 AM EDT [facility] RBC Count 3.98(L) 4.60 - 6.10 10*6/uL LAB HEMATOLOGY METHOD 07/23/2024 11:01 AM EDT [facility] HGB 13.8 13.7 - 17.5 g/dL LAB HEMATOLOGY METHOD 07/23/2024 11:01 AM EDT [facility] HCT 39.5(L) 40.0 - 51.0 % LAB HEMATOLOGY METHOD 07/23/2024 11:01 AM EDT [facility] Platelet Count 290 155 - 369 10*3/uL LAB HEMATOLOGY METHOD 07/23/2024 11:01 AM EDT [facility] MCV 99(H) 79 - 98 fL LAB HEMATOLOGY METHOD 07/23/2024 11:01 AM EDT [facility] MCH 34.7(H) 26.0 - 32.0 pg LAB HEMATOLOGY METHOD 07/23/2024 11:01 AM EDT [facility] MCHC 34.9 30.7 - 35.5 g/dL LAB HEMATOLOGY METHOD 07/23/2024 11:01 AM EDT [facility] RDW 14.6(H) 11.5 - 14.5 % LAB HEMATOLOGY METHOD 07/23/2024 11:01 AM EDT [facility] MPV 8.6(L) 8.8 - 12.5 fL LAB HEMATOLOGY METHOD 07/23/2024 11:01 AM EDT [facility] nRBC 0.0 <=0.0 per 100 WBCs LAB HEMATOLOGY METHOD 07/23/2024 11:01 AM EDT [facility] Blood Venous blood specimen / Unknown Venipuncture / Unknown 07/23/2024 10:36 AM EDT 07/23/2024 10:54 AM EDT Farhad Castillo MD LAB BLOOD ORDERABLES Final Result [facility] [address] [place] [address] * Prealbumin, Plasma (07/23/2024 10:36 AM EDT) Prealbumin, Plasma 22.6 20.0 - 41.0 mg/dL 07/23/2024 11:29 AM EDT [facility] Blood Venous blood specimen / Unknown Venipuncture / Unknown 07/23/2024 10:36 AM EDT 07/23/2024 10:54 AM EDT Farhad Castillo MD LAB BLOOD ORDERABLES Final Result [facility] [address] [place] [address] * (ABNORMAL) Hemoglobin A1c (07/23/2024 10:36 AM EDT) Hemoglobin A1c 7.7(H) <5.7 % 07/23/2024 12:23 PM EDT [facility] Blood Venous blood specimen / Unknown Venipuncture / Unknown 07/23/2024 10:36 AM EDT 07/23/2024 10:54 AM EDT Narrative [facility] - 07/23/2024 12:23 PM EDT HA1C Interpretive Data: Diagnosis of Diabetes: Diabetic > or = 6.5% Pre-diabetic 5.7 to 6.4% Non-diabetic < or = 5.6% Glycemic Targets for Type I and Type II Diabetics: Non- Adults <7.0% Adults <6.0% Children and Adolescents <7.5% Source: [place] [employer]. Standards of medical care in diabetes,2017. Diabetes Care.2017:40 (suppl 1):S1-S135. Farhad Castillo MD LAB BLOOD ORDERABLES Final Result Performing Organization Address [facility]/ZIP Co de Phone Number [facility] [address] [place] [address] * (ABNORMAL) CEA, Serum (07/23/2024 10:36 AM EDT) CEA, Serum 9.1(H) <4.0 ng/mL 07/23/2024 11:32 AM EDT [facility] Blood Venous blood specimen / Unknown Venipuncture / Unknown 07/23/2024 10:36 AM EDT 07/23/2024 10:54 AM EDT Narrative [facility] - 07/23/2024 11:32 AM EDT Normal range for smokers: < 5.5 ng/ml Normal range for non-smokers: <=4.0 ng/ml Performed by [employer] electrochemiluminescent immunoassay. Results obtained with different test methods or kits cannot be used interchangeably. us Farhad Castillo MD LAB BLOOD ORDERABLES Final Result [facility] [address] [place] [address] * (ABNORMAL) Comprehensive Metabolic Panel, Plasma (07/23/2024 10:36 AM EDT) Glucose, Plasma 148(H) 74 - 99 mg/dL 07/23/2024 11:29 AM EDT [facility] BUN, Plasma 21 8 - 23 mg/dL 07/23/2024 11:29 AM EDT [facility] Creatinine, Plasma 0.96 0.70 - 1.20 mg/dL 07/23/2024 11:29 AM EDT [facility] BUN/Creatinine Ratio 22 07/23/2024 11:29 AM EDT [facility] Sodium, Plasma 136 136 - 145 mmol/L 07/23/2024 11:29 AM EDT [facility] Potassium, Plasma 4.4 3.6 - 4.9 mmol/L 07/23/2024 11:29 AM EDT [facility] Chloride, Plasma 104 97 - 107 mmol/L 07/23/2024 11:29 AM EDT [facility] CO2, Plasma 18(L) 22 - 29 mmol/L 07/23/2024 11:29 AM EDT [facility] Anion Gap 14 6 - 16 mmol/L 07/23/2024 11:29 AM EDT [facility] Total Calcium, Plasma 9.6 8.9 - 10.2 mg/dL 07/23/2024 11:29 AM EDT [facility] Total Protein 8.0(H) 6.3 - 7.9 g/dL 07/23/2024 11:29 AM EDT [facility] Albumin, Plasma 4.0 3.5 - 5.2 g/dL 07/23/2024 11:29 AM EDT [facility] AST, Plasma 41 10 - 50 U/L 07/23/2024 11:29 AM EDT [facility] Comment:Hemolyzed, result ma y be falsely increased. ALT, Plasma 15 10 - 50 U/L 07/23/2024 11:29 AM EDT [facility] Alkaline Phosphatase, Plasma 74 40 - 115 U/L 07/23/2024 11:29 AM EDT [facility] Total Bilirubin, Plasma 0.7 0.2 - 1.1 mg/dL 07/23/2024 11:29 AM EDT [facility] eGFRcr 90.5 mL/min/1.7 3m*2 07/23/2024 11:29 AM EDT [facility] Comment:Reported eGFRcr in m L/min/1.73m2 is based the CKD-EPI 2020 equation that does not use a race coefficient. Blood Venous blood specimen / Unknown Venipuncture / Unknown 07/23/2024 10:36 AM EDT 07/23/2024 10:54 AM EDT Farhad Castillo MD LAB BLOOD ORDERABLES Final Result [facility] [address] [place] [address] * Surgical Pathology Consult (07/16/2024 1:13 PM EDT) Case Report Sugical Pathology Consult Case: [id number] Authorizing Provider: Farhad Castillo MD Collected: 07/16/2024 1313 Ordering Location: [facility] Lab Received: 07/16/2024 1313 Pathologist: Constance Murphy MD Specimen: Colon, [id number] 07/17/2024 1:08 PM EDT [facility] Final Diagnosis RIGHT COLON AND TERMINAL ILEUM, RIGHT HEMICOLECTOMY ([id number]; 11/09/2022): - 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 - TUMOR BUDDING SCORE: HIGH (10 OR GREATER). - NO TUMOR SEEN IN TWENTY ONE LYMPH NODES (0/21). 07/17/2024 1:08 PM EDT [facility] at 1308 EDT Comment Per pathology report immunohistochemical stains for MMR proteins showed retained nuclear immunoreaction for all 4 proteins (MLH-1, MSH-2, MSH-6, and PMS-2). 07/17/2024 1:08 PM EDT [facility] Clinical Information K35.890 - Other acute appendicitis without perforation or gangrene [ICD-10-CM] 07/17/2024 1:08 PM EDT [facility] Gross Description [id number]. [id number] Received along with a corresponding pathology report from [facility] are 29 slides labeled outside case: [id number] collected on 11/09/2022. 07/17/2024 1:08 PM EDT [facility] Note: A resident was involved in the service. I attest I examined the relevant preparations for the specimens and confirmed the diagnosis or interpretation. 07/17/2024 1:08 PM EDT [facility] Tissue Colon structure / Unknown 07/16/2024 1:13 PM EDT 07/16/2024 1:13 PM EDT us Farhad Castillo MD LAB PATHOLOGY ORDERABLES F inal Result [facility] [address] [place] [address] from Last 3 Months Insurance [place] Care Teams [employer] F[employer] Relationship Specialty Start Date End Date Tayo Jones MD [address] [place] [address] PCP - General 07/14/24
--- OUTSIDE RECORDS SUMMARY | 2024-09-29 09:49 | XMS_ITS | Encounter Summary ---
Author Organization [facility] Address [address] [place] [address] Care Team Providers Care Carbon Setter Name Role Phone Tayo Jones MD Primary Care Provider [phone] Encounter Details Date Type Department Care Team [...] [facility] [address] [place] [address] 11/19/2024 11:15 AM EDT Office Visit [facility] On[facility] [address] [place] [address] Farhad Castillo MD [address] [phone] documented as of this encounter Visit Diagnoses Not on filedocumented in this encounter Additional Health Concerns Assessment Noted Time A fall risk assessment has been complete d for the patient 07/23/2024 8:54 AM EDT A Body Mass Index follow-up plan has been documented for the patient 07/24/2024 8:25 AM EDT documented as of this encounter Care Teams Carbon Setter Relationship Specialty Start Date End Date Tayo Jones MD [address] [place] [address] PCP - General 07/14/24 documented as of this encounter
--- OUTSIDE RECORDS SUMMARY | 2024-09-29 09:49 | XMS_ITS | Encounter Summary ---
Author Organization [facility] Address [address] [place] [id number] Care Team Providers Care Network Contractor Name Role Phone Tayo Jones MD Primary Care Provider [phone] Encounter Details Date Type Department Care Team (Late st Contact Info) Description 07/29/2024 Telephone [facility] [address] [place] [address] Farhad Castillo MD [address] [phone] Social History Tobacco Use Types Packs/Day Years [...] from Rosie Post, Oncology Nurse Navigator at [facility] in Dr. Matthew's office. She is requesting a call back from the clinic yon with Dr. Castillo's recommendations for POC now that scans are complete. She can be reached at [phone]. documented in this encounter Plan of Treatment Upcoming Encounters Date Type Department Care Team (Late st Contact Info) Description 11/19/2024 8:30 AM EDT Appointment [facility] [address] [place] [address] 11/19/2024 11:15 AM EDT Office Visit [facility] On[facility] Clinic [address] [place] [address] Farhad Castillo MD [address] [address] documented as of this encounter Visit Diagnoses Not on filedocumented in this encounter Additional Health Concerns Assessment Noted Time A fall risk assessment has been complete d for the patient 07/23/2024 8:54 AM EDT A Body Mass Index follow-up plan has been documented for the patient 07/24/2024 8:25 AM EDT documented as of this encounter Care Teams Network Contractor Relationship Specialty Start Date End Date Tayo Jones MD [address] [place] [address] PCP - General 07/14/24 documented as of this encounter
--- OUTSIDE RECORDS SUMMARY | 2024-09-29 09:49 | XMS_ITS | Encounter Summary ---
Author Organization [facility] Address [address] [id number] Care Team Providers Care Inventory Control/Shipping Receiving Name Role Phone Tayo Jones MD Primary Care Provider [phone] Reason for Referral * Imaging (Routine) - Pending Review Specialty Diagnoses / Procedures Referred By Samia pagan Referred To Contact Radiology Diagnoses Metastatic colon cancer to liver (CMS/HCC) Procedures CT Abdomen Pelvis w IV Contrast Farhad Castillo MD [address] [address] Phone: tel: fax: Referral ID Status Reason Start Date Expiration Date V isits Requested Visits Authorized [id number] Pending Review 08/03/2024 02/02/2026 1 1 * Imaging (Routine) - Pending Review Specialty Diagnoses / Procedures Referred By Samia pagan Referred To Contact Radiology Diagnoses Metastatic colon cancer to liver (CMS/HCC) Procedures CT Chest w IV Contrast Farhad Castillo MD [address] [address] Phone: tel: fax: Referral ID Status Reason Start Date Expiration Date V isits Requested Visits Authorized [id number] Pending Review 08/03/2024 02/02/2026 1 1 Encounter Details Date Type Department Care Team (Latest Contact Info) Description 08/03/2024 Orders Only [facility] [address] [place] [address] Farhad Castillo MD [address] [address] Metastatic colon cancer to liver [...] Description 11/19/2024 8:30 AM EDT Appointment [facility] CT [address] [place] [address] 11/19/2024 11:15 AM EDT Office Visit [facility] Mult[facility]isciplinary Oncology Clinic [address] [place] [phone] Farhad Castillo MD [address] [phone] Scheduled Orders Name Type Priority Associated Diagnoses [...] documented as of this encounter Care Teams Inventory Control/Shipping Receiving Relationship Specialty Start Date End Date Tayo Jones MD [address] [phone] PCP - General 07/14/24 documented as of this encounter
[2024-09-29 10:06] LABS: Basophils # 0.1 K/mm3 (0-0.2); Basophils % 0.5 % (0.1-2.0); Eosinophils # 0.4 Kmm3 (0.0-0.4); Eosinophils % 3.5 % (0.1-12.0); Hematocrit 37.8 % (42.0-52.0); Hemoglobin 12.7 g/dL (14.1-18.0); Immature Granulocytes % 0.8 %; Lymphocytes # 2.6 K/mm3 (0.7-4.5); Lymphocytes % 21.8 % (10-50); Mean Corpuscular HGB Conc 33.6 g/dL (31.8-35.4); Mean Corpuscular Hemoglobin 32.8 pg (27.0-31.2); Mean Corpuscular Volume 97.7 fl (80-94); Mean Platelet Volume 9.2 fl (7.4-10.4); Monocytes # 1.2 K/mm3 (0.1-1.0); Monocytes % 9.9 % (1.7-9.3); Neutrophils # 7.5 K/mm3 (1.8-7.8); Neutrophils % 63.5 % (37.0-80.0); Nucleated Red Blood Cells # 0 10^3/uL; Nucleated Red Blood Cells % 0 %; Platelet Count 365 K/mm3 (142-424); Red Blood Count 3.87 M/mm3 (4.60-6.20); Red Cell Distribution Width 13.2 % (11.5-17.5); Red Cell Distribution Width-SD 46.8 fL; White Blood Count 11.9 K/mm3 (4.8-10.8)
--- NOTE | 2024-09-29 10:09 | PC.NURSE ---
0953 Labs obtained as ordered via venipuncture to L hand x1 stick with butterfly needle due to inablility to obtain blood return from port a cath. Port does flush easily.
[2024-09-29 10:12] LABS: Albumin Level 3.8 g/dl (3.5-5.0); Chloride 105 mmol/L (98-107); Sodium 135 mmol/L (136-145)
[2024-09-29 10:13] LABS: Potassium 4.4 mmoL/L (3.5-5.1)
[2024-09-29 10:15] LABS: Alanine Aminotransferase 22 U/L (12-78); Albumin/Globulin Ratio 1.4 (1.1-1.8); Alkaline Phosphatase 71 U/L (38-126); Anion Gap 9.4 mEq/L (5-15); Aspartate Amino Transferase 48 U/L (17-59); Bilirubin,Total 0.4 mg/dl (0.2-1.3); Blood Urea Nitrogen 18 mg/dl (9-20); Calcium 9.3 mg/dl (8.4-10.2); Carbon Dioxide 25 mmol/L (22.0-30.0); Creatinine Clearance Estimated 133 mL/min (50-200); Estimated Glomerular Filt Rate 76 ml/min (>60); GFR (African American) 92 ML/MIN (>60); Globulin 2.8 g/dL (1.3-3.2); Glucose 146 mg/dl (74-100); Total Protein,Serum 6.6 g/dl (6.3-8.2)
[2024-09-29 11:05] VITALS: BP 115/68; PULSE 71; RESP 18; TEMP 36.8; O2SAT 97
[2024-09-29] MEDS: ONDANSETRON 4MG ODT 16 MG (11:05)
[2024-09-29] MEDS: 0.9 % SODIUM CHLORIDE 50 ML IV (11:05)
[2024-09-29] MEDS: DEXAMETHASONE 4MG TABLET 12 MG (11:05)
[2024-09-29] MEDS: SODIUM CHLORIDE 0.9% 10ML FLUSH SYRINGE 10 ML IV (11:06)
[2024-09-29 11:38] VITALS: BP 121/70; PULSE 76; RESP 18; O2SAT 98
[2024-09-29] MEDS: DEXTROSE 5% IV (11:38)
[2024-09-29] MEDS: WATER IV (11:38)
[2024-09-29] MEDS: IRINOTECAN HCL IV (11:38)
[2024-09-29 12:08] VITALS: BP 117/66; PULSE 74; RESP 18; O2SAT 98
[2024-09-29 12:38] VITALS: BP 117/63; PULSE 77; RESP 18; O2SAT 97
[2024-09-29 13:20] VITALS: BP 135/79; PULSE 68; RESP 20; O2SAT 98
== END 2024-09-29 13:20 | disposition home or self-care (01) ==
LOC: INF 09:44
PROVIDERS: PCP Family Medicine; Visit Provider Internal Medicine Medical Oncology
DX: C18.2 Malignant neoplasm of ascending colon (principal)
CPT/HCPCS: 80053; 85025; 96413; 96415; J1642; J7060; J8540; J9206; Q0162

== ENCOUNTER 2024-10-07 18:46 | Emergency (ER) | payer MEDICAID, SELFPAY ==
[2024-10-07] VITALS (8 sets, daily range): BP systolic 114–152; BP diastolic 66–89; PULSE 82–94; RESP 14–22; TEMP 36.4–36.6; O2SAT 97–98; BMI 34.8
--- NOTE | 2024-10-07 19:01 | ED_ITS ---
<Statement entered by Faby Escalante DO - 10/07/24 23:29> I was consulted by the RAYO, and we discussed the complexity of the problems being addressed. I approved the treatment and management plan for this patient's care in the emergency department, thus performing a substantive portion of the medical decision making. Faby Escalante DO Discharge Plan Disposition Patient Disposition: Xfer Short-Term Hosp Condition: Serious Prescriptions Prescriptions: No Action ferrous sulfate 325 mg (65 mg iron) tablet,delayed release (DR/EC) 325 mg PO DAILY (DME) pen needle,diabetic dual safty 30 gauge x 3/16 needle See Rx Instructions .ROUTE .MEDSUPPLY Qty: 100 Rx Instructions: As directed insulin lispro 100 unit/mL solution 10 unit SQ TID acetaminophen 500 mg tablet 500 mg PO Q6HP PRN (Reason: Pain) potassium chloride 20 mEq tablet,ER particles/crystals 20 meq PO DAILY magnesium oxide 400 mg (241.3 mg magnesium) tablet 400 mg PO DAILY spironolactone 25 mg Tablet 25 mg PO DAILY carvedilol [Coreg] 12.5 mg tablet 12.5 mg PO BID ondansetron HCl 8 mg tablet 8 mg PO BID Rx Instructions: give 1 tablet po BID every and saturday for nausea loperamide [Anti-Diarrheal (loperamide)] 2 mg tablet 2 mg PO NEEDED MDD 16mg PRN (Reason: Diarrhea) prochlorperazine maleate 10 mg tablet 10 mg PO Q6HP PRN (Reason: Nausea) lisinopril 20 mg Tablet 20 mg PO DAILY 30 Days Qty: 30 0RF sodium bicarbonate 650 mg tablet 650 mg PO BID insulin glargine [Lantus U-100 Insulin] 100 unit/mL solution 35 unit SQ HS multivitamin Tablet 1 tab PO DAILY Referrals Follow up/Referrals: Tayo Jones [Primary Care Provider, Medical] - See instructions Clinical Impressions Clinical Impression: Complete small bowel obstruction, Hyponatremia, Hypokalemia, Pneumatosis coli Instructions Patient Instructions: DI for Diarrhea and Traveler's Diarrhea -- Adult, DI for Diarrhea and Traveler's Diarrhea -- Child, DI for Nausea -- Adult, DI for Nausea -- Child Print Language Print Language: French Discharge ED Provider: Faby Escalante General Adult HPI <CHADWICK Jackman - Last Filed: 10/07/24 22:10> General Chief complaint: Nausea/Vomiting/Diarrhea Stated complaint: weakness,nausea,vomiting Time Seen by Provider: 10/07/24 19:01 History of Present Illness HPI narrative: Patient presents for evaluation of nausea vomiting diarrhea abdominal pain. Patient has a known history of adenocarcinoma status post right hemicolectomy and currently undergoing chemotherapy with Dr. Blair. He is currently getting single agent dosing with 2 weeks on and 1 week off at a 20% dose reduction. Patient states that he last saw Dr. Matthew on 09/29/2024. Patient reports that he has not been able to eat since Saturday. He has had nausea vomiting diarrhea and abdominal pain since then. He currently is a long-term resident at [facility]. They apparently called his family to bring him to the emergency department for these symptoms. He denies fever chills hemoptysis hematochezia melena hematemesis hematuria. Related Data Home Medications ?Medication ?Instructions ?Recorded ?Confirmed insulin lispro 100 unit/mL 10 unit SQ TID Diabetes 09/29/24 subcutaneous solution spironolactone 25 mg tablet 25 mg PO DAILY Fluid 11/0909/29/24 carvedilol 12.5 mg tablet (Coreg) 12.5 mg PO BID High Blood Pressure 11/10/22 09/29/24 ferrous sulfate 325 mg (65 mg 325 mg PO DAILY iron sup plement 10/03/23 09/29/24 iron) tablet,delayed release pen needle,diabetic dual safty 30 #100 ea 06/25/24 gauge x 3/16 acetaminophen 500 mg tablet 500 mg PO Q6HP PRN Pain 09/29/24 loperamide 2 mg tablet 2 mg PO NEEDED PRN Diarrh ea 08/28/24 09/29/24 (Anti-Diarrheal (loperamide)) ondansetron HCl 8 mg tablet 8 mg PO BID TH AND Sat08/28/24 09/29/24 prochlorperazine maleate 10 mg 10 mg PO Q6HP PRN Nause a 08/28/24 09/29/24 tablet insulin glargine 100 unit/mL 35 unit SQ HS 09/09/24 subcutaneous solution (Lantus U-100 Insulin) multivitamin 1 tab PO DAILY Supplement 09/29/24 potassium chloride 20 mEq 20 meq PO DAILY low potassiu m 09/09/24 09/29/24 tablet,extended release(part/cryst) sodium bicarbonate 650 mg tablet 650 mg PO BID low sod ium 09/09/24 09/29/24 magnesium oxide 400 mg (241.3 mg 400 mg PO DAILY 09/1709/29/24 magnesium) tablet Previous Rx's ?Medication ?Instructions ?Recorded lisinopril 20 mg tablet 20 mg PO DAILY 30 days #30 t abs 08/30/24 Allergies Allergy/AdvReac Type Severity Reaction Status Date / Time No Known Allergies Allergy Verified 09/29/24 12:08 [facility] <CHADWICK Jackman - Last Filed: 10/07/24 22:10> [facility] Disclaimer: The information contained in this section may have been updated after the patient was seen, as this information can be updated by other users. 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 Right bundle branch block Abnormal electrocardiogram [ECG] [EKG] Amputation of toe of left foot Surgical History History of colon resection Family History Father Cancer CHF (congestive heart failure) Sister Hypertension Other Coronary artery disease Social History (Updated 09/29/24 @ 12:07 by Daryl Frost RN) Smoking Status: Never smoker alcohol intake: never substance use type: denies use current occupational status: disabled and other Travel in the last 8 weeks?: None Have you lived/traveled outside US in past 30 days?: No Contact w/someone who lives/traveled outside US past 30 days?: No Exposure to someone with infectious disease in past 14 days?: No Do you have a fever (greater than 100.4 F or 38 C)?: No Have you tested positive for COVID-19?: No Exposed to someone with COVID-19 in past 14 days?: No Do you have a sore throat?: No Do you have a cough?: No Do you have any weakness?: No Do you have any diarrhea?: No Are you experiencing any unusual bleeding?: No Do you have any muscle aches/pain?: No Do you have any abdominal pain?: No Are you experiencing loss of taste or smell?: No Other Medical History Have you received the Flu Vaccine for this season: No Have you received the Pneumonia Vaccine: No <CHADWICK Jackman - Last Filed: 10/07/24 22:10> ROS Obtained: Yes Systems reviewed as appropriate & no additional complaints except as documented Physical Exam <CHADWICK Jackman - Last Filed: 10/07/24 22:10> General General appearance: alert and in no apparent distress Respiratory Respiratory exam: Present normal lung sounds bilaterally Cardiovascular Cardiovascular exam: Present regular rate Neurological Exam Neurological exam: Present alert and oriented X3 Medical Decision Making <CHADWICK Jackman - Last Filed: 10/07/24 22:10> Medical Records Medical records reviewed: Yes I reviewed the patient's medical records. Screening: Per USPSTF and CDC recommendations, given the prevalence of disease in our region, it is our hospital?s policy to screen for HIV and viral Hepatitis for all patients aged 18 and over and those with ongoing risk factors. Luis Inquiry Pt receiving controlled substance: No Vital Signs: 10/07/24 19:00 10/07/24 20:30 10/07/24 21:00 Temperature 97.9 F Temperature Source Oral Pulse Rate 82 85 Pulse Rate [Left Radial] 89 Respiratory Rate 14 21 19 Blood Pressure 152/83 H 138/78 Blood Pressure [Right Arm] 114/66 Blood Pressure Mean [Right Arm] 82 02 Sat by Pulse Oximetry 97 97 98 10/07/24 21:30 Temperature Temperature Source Pulse Rate 84 Pulse Rate [Left Radial] Respiratory Rate 22 Blood Pressure 146/86 H Blood Pressure [Right Arm] Blood Pressure Mean [Right Arm] 02 Sat by Pulse Oximetry 98 Lab Data Lab results reviewed: Yes I reviewed the patient's lab results. Lab Results 10/07/24 19:31: Acetone Level None detected 10/07/24 19:37: WBC 11.3 H, RBC 4.22 L, Hgb 13.3 L, Hct 38.9 L, MCV 92.2, MCH 31.5 H, MCHC 34.2, RDW 13.5, Plt Count 354, MPV 9.3, Neut % (Auto) 66.2, Lymph % (Auto) 13.7, Bourbon % (Auto) 18.5 H, Eos % (Auto) 0.5, Baso % (Auto) 0.4, Neut # (Auto) 7.5, Lymph # (Auto) 1.6, Bourbon # (Auto) 2.1 H, Eos # (Auto) 0.1, Baso # (Auto) 0.0, Total Counted 100, Neutrophils % (Manual) 67, Lymphocytes % (Manual) 18, Monocytes % (Manual) 15 H, Platelet Estimate Not Reportable, RBC Morphology Not Reportable, ESR 60 H, Sodium 123 L, Potassium 3.0 L, Chloride 93 L, Carbon Dioxide 13 L, Anion Gap 20.0 H, BUN 44 H, Creatinine 1.60 H, Estimated Creat Clear 79, Estimated GFR 44 L, Est GFR ( Amer) 54 L, Glucose 255 H, Calcium 9.6, Magnesium 1.9, Total Bilirubin 1.1, AST 24, ALT 14, Alkaline Phosphatase 76, C-Reactive Protein 85.7 H, Total Protein 7.8, Albumin 4.4, G lobulin 3.4 H, Albumin/Globulin Ratio 1.3, Lipase 53, Procalcitonin 0.630, HCV Ab KELY w/Rflx PCR Qn Negative, HIV Ag/Ab Combo Qual Negative 10/07/24 20:15: Lactate 1.5 10/07/24 19:37 10/07/24 19:37 Orders (Tests/Meds): ED MEDICATIONS Generic Name Dose Route Start Last Admin Trade Name Freq PRN Reason Stop Dose Admin Potassium Chloride/Water 100 mls @ 50 mls/hr 10/07/24 20:34 10/07/24 20:44 Potassium Chloride 20meq/100ml Ivpb IV 10/08/24 02:33 50 mls/hr Q2H GIN Administration Piperacillin Sod/Tazobactam 50 mls @ 100 mls/hr 10/07/24 21:57 Sod 3.375 gm/ Sodium Chloride IV 10/07/24 22:26 ONCE ONE Discontinued Medications Generic Name Dose Route Start Last Admin Trade Name Freq PRN Reason Stop Dose Admin Sodium Chloride 1,000 mls @ 999 mls/hr 10/07/24 19:17 10/07/24 19:38 Sod Chlor 0.9% 1000ml Bag IV 10/07/24 20:17 999 mls/hr .Q1H1M ONE Administration Iopamidol 75 ml 10/07/24 19:57 10/07/24 19:58 Iopamidol-370 (76%);100ml Bottle IV 10/07/24 19:58 75 ml ONCE ONE Administration Ondansetron HCl 4 mg 10/07/24 19:17 10/07/24 19:38 Ondansetron 4mg/2ml Vial IV 10/07/24 19:18 4 mg ONCE ONE Administration Sodium Chloride 10 ml 10/07/24 19:57 10/07/24 19:58 Sodium Chloride 0.9% 10ml Syr (Rad Only) IV 10/07/24 19:58 10 ml ONCE ONE Administration ORDERS Category Date Time Status CT abdomen pelvis w con Stat Cat Scan 10/07/24 19:18 Completed Acetone, Serum (Rapid) Stat Lab 10/07/24 19:31 Completed CBC w/Auto Diff [Complete Blood Count Auto Diff] Stat Lab 10/07/24 19:37 Completed CMP [Comprehensive Metabolic Panel] Stat Lab 10/07/24 19:37 Completed CRP [C-Reactive Protein] Stat Lab 10/07/24 19:37 Completed Diarrhea 23 Panel, PCR Stat Lab 10/07/24 21:28 Ordered ESR [Erythrocyte Sedimentation Rate] Stat Lab 10/07/24 19:37 Completed HIV Combo Stat Lab 10/07/24 19:37 Completed Hepatitis C Ab Qual. W/ RFX Stat Lab 10/07/24 19:37 Completed Lactic Acid Stat Lab 10/07/24 20:15 Completed Lipase Stat Lab 10/07/24 19:37 Completed Magnesium Stat Lab 10/07/24 19:37 Completed Procalcitonin Stat Lab 10/07/24 19:37 Completed Blood Culture Stat Micro 10/07/24 21:57 Ordered VBG [Venous Blood Gas] Stat RT 10/07/24 20:58 Ordered Medical Decision Narrative: In summary patient is a 59-year-old male who presents to the emergency department for evaluation of 3 days of nausea vomiting diarrhea and abdominal pain.. Patient is currently hemodynamically stable with a blood pressure 114/66 pulse 89 sinus rhythm in the bedside monitor breathing 14 times a minute satting at 97% on room air upon arrival, afebrile at 97.9. Physical exam is remarkable for an unwell appearing much older than stated age appearing 59-year-old gentleman who is in no acute distress. Breath sounds clear and equal bilaterally to the base with adventitious sounds abdomen is significantly distended soft but tender to palpation diffusely. Bowel sounds are distant high-pitched and hyperactive.. Differential diagnosis includes gastroenteritis versus chemotherapy induced diarrhea versus bowel obstruction versus electrolyte abnormality versus advanced metastatic disease etc. Initial workup will be conducted with hematologic labs CT scan abdomen pelvis urinalysis. Initial interventions include crystalloid bolus Tylenol Toradol Zofran. Initial workup reviewed by me and his hematologic labs significant for white count of 11.3 hemoglobin hematocrit 13.3 and 38.9 respectively absolute neutrophil count is 7.5. Sed rate is 60, sodium is 123 potassium 3.0 chlorides 93 CO2 13 gap is 20 BUN is 44 creatinine 1.6 GFR is 44 glucose 255 lactate is 1.5 CRP is 87.5 lipase is 53 procalcitonin is 0.630 no acetone detected on serum. My informed interpretation of his CT scan shows markedly dilated large and small bowel. There does appear to be a transition point in the right lower quadrant likely at the site of his previous right hemicolectomy anastomosis. He has some pneumatosis as well. I have ordered potassium repletion of held the patient n.p.o. of order to NG tube decompression I will start the patient on Zosyn. Given the high-grade stenosis and the hostile abdomen I have contacted the [facility] transfer center to initiate transfer. I had interactive discussion with Dr. Toussaint and Dr. Rivera of oncological surgery and went through patient presentation history and management and patient has been accepted graciously in transfer to the [facility] emergency department. <Faby Escalante, DO - Last Filed: 10/07/24 20:36> Vital Signs: 10/07/24 19:00 10/07/24 20:30 10/07/24 21:00 Temperature 97.9 F Temperature Source Oral Pulse Rate 82 85 Pulse Rate [Left Radial] 89 Respiratory Rate 14 21 19 Blood Pressure 152/83 H 138/78 Blood Pressure [Right Arm] 114/66 Blood Pressure Mean [Right Arm] 82 02 Sat by Pulse Oximetry 97 97 98 10/07/24 21:30 Temperature Temperature Source Pulse Rate 84 Pulse Rate [Left Radial] Respiratory Rate 22 Blood Pressure 146/86 H Blood Pressure [Right Arm] Blood Pressure Mean [Right Arm] 02 Sat by Pulse Oximetry 98 Lab Data Lab Results 10/07/24 19:31: Acetone Level None detected 10/07/24 19:37: WBC 11.3 H, RBC 4.22 L, Hgb 13.3 L, Hct 38.9 L, MCV 92.2, MCH 31.5 H, MCHC 34.2, RDW 13.5, Plt Count 354, MPV 9.3, Neut % (Auto) 66.2, Lymph % (Auto) 13.7, Bourbon % (Auto) 18.5 H, Eos % (Auto) 0.5, Baso % (Auto) 0.4, Neut # (Auto) 7.5, Lymph # (Auto) 1.6, Bourbon # (Auto) 2.1 H, Eos # (Auto) 0.1, Baso # (Auto) 0.0, Total Counted 100, Neutrophils % (Manual) 67, Lymphocytes % (Manual) 18, Monocytes % (Manual) 15 H, Platelet Estimate Not Reportable, RBC Morphology Not Reportable, ESR 60 H, Sodium 123 L, Potassium 3.0 L, Chloride 93 L, Carbon Dioxide 13 L, Anion Gap 20.0 H, BUN 44 H, Creatinine 1.60 H, Estimated Creat Clear 79, Estimated GFR 44 L, Est GFR ( Amer) 54 L, Glucose 255 H, Calcium 9.6, Magnesium 1.9, Total Bilirubin 1.1, AST 24, ALT 14, Alkaline Phosphatase 76, C-Reactive Protein 85.7 H, Total Protein 7.8, Albumin 4.4, G lobulin 3.4 H, Albumin/Globulin Ratio 1.3, Lipase 53, Procalcitonin 0.630, HCV Ab KELY w/Rflx PCR Qn Negative, HIV Ag/Ab Combo Qual Negative 10/07/24 20:15: Lactate 1.5 Orders (Tests/Meds): ED MEDICATIONS Generic Name Dose Route Start Last Admin Trade Name Freq PRN Reason Stop Dose Admin Potassium Chloride/Water 100 mls @ 50 mls/hr 10/07/24 20:34 10/07/24 20:44 Potassium Chloride 20meq/100ml Ivpb IV 10/08/24 02:33 50 mls/hr Q2H GIN Administration Piperacillin Sod/Tazobactam 50 mls @ 100 mls/hr 10/07/24 21:57 Sod 3.375 gm/ Sodium Chloride IV 10/07/24 22:26 ONCE ONE Discontinued Medications Generic Name Dose Route Start Last Admin Trade Name Daiana PRN Reason Stop Dose Admin Sodium Chloride 1,000 mls @ 999 mls/hr 10/07/24 19:17 10/07/24 19:38 Sod Chlor 0.9% 1000ml Bag IV 10/07/24 20:17 999 mls/hr .Q1H1M ONE Administration Iopamidol 75 ml 10/07/24 19:57 10/07/24 19:58 Iopamidol-370 (76%);100ml Bottle IV 10/07/24 19:58 75 ml ONCE ONE Administration Ondansetron HCl 4 mg 10/07/24 19:17 10/07/24 19:38 Ondansetron 4mg/2ml Vial IV 10/07/24 19:18 4 mg ONCE ONE Administration Sodium Chloride 10 ml 10/07/24 19:57 10/07/24 19:58 Sodium Chloride 0.9% 10ml Syr (Rad Only) IV 10/07/24 19:58 10 ml ONCE ONE Administration ORDERS Category Date Time Status CT abdomen pelvis w con Stat Cat Scan 10/07/24 19:18 Completed Acetone, Serum (Rapid) Stat Lab 10/07/24 19:31 Completed CBC w/Auto Diff [Complete Blood Count Auto Diff] Stat Lab 10/07/24 19:37 Completed CMP [Comprehensive Metabolic Panel] Stat Lab 10/07/24 19:37 Completed CRP [C-Reactive Protein] Stat Lab 10/07/24 19:37 Completed Diarrhea 23 Panel, PCR Stat Lab 10/07/24 21:28 Ordered ESR [Erythrocyte Sedimentation Rate] Stat Lab 10/07/24 19:37 Completed HIV Combo Stat Lab 10/07/24 19:37 Completed Hepatitis C Ab Qual. W/ RFX Stat Lab 10/07/24 19:37 Completed Lactic Acid Stat Lab 10/07/24 20:15 Completed Lipase Stat Lab 10/07/24 19:37 Completed Magnesium Stat Lab 10/07/24 19:37 Completed Procalcitonin Stat Lab 10/07/24 19:37 Completed Blood Culture Stat Micro 10/07/24 21:57 Ordered VBG [Venous Blood Gas] Stat RT 10/07/24 20:58 Ordered ECG Data Tracing #1: I reviewed this ECG and interpreted as documented below: Normal sinus rhythm with a ventricular of 82 bpm. Bundle branch block. No acute ST changes concerning for STEMI. ECG initial impression date: 10/07/24 ECG initial impression time: 19:50 Critical Care <CHADWICK Jackman - Last Filed: 10/07/24 22:10> Critical Care Time Critical Care Time: Yes Attestation: On 10/07/24, the high probability of a clinically significant, sudden or life threatening deterioration of the following system(s) required my full and direct attention, intervention and personal management. The time I documented below is in addition to time spent performing reported procedures but includes the following listed in this critical care notation. Total Time Total Critical Care Time: 60
--- OUTSIDE RECORDS SUMMARY | 2024-10-07 19:07 | XMS_ITS | Encounter Summary ---
Author Organization Healthcare Address [address] [id number] Care Team Providers Care Irrigation System Installer Name Role Phone Tayo Jones MD Primary Care Provider [phone] Encounter Details Date Type Department Care Team (Late st Contact Info) Description 07/27/2024 Telephone [facility] [address] [place] [address] Farhad Castillo MD [address] [phone] Social History Tobacco Use Types Packs/Day Years [...] optimal time of day to reach caller: [phone] ext [phone] Note: Please do not reply [...] Team (Late st Contact Info) Description 11/19/2024 8:40 AM EDT Appointment [facility] [address] [place] [address] 11/19/2024 11:15 AM EDT Office Visit [facility] Mult[facility]isciplinary Oncology Clinic [address] [place] [address] Farhad Castillo MD [address] [address] documented as of this encounter Visit Diagnoses Not on filedocumented in this encounter Additional Health Concerns Assessment Noted Time A fall risk assessment has been complete d for the patient 07/23/2024 8:54 AM EDT A Body Mass Index follow-up plan has been documented for the patient 07/24/2024 8:25 AM EDT documented as of this encounter Care Teams Irrigation System Installer Relationship Specialty Start Date End Date Tayo Jones MD [address] [place] [id number] PCP - General 07/14/24 documented as of this encounter
--- OUTSIDE RECORDS SUMMARY | 2024-10-07 19:07 | XMS_ITS | Encounter Summary ---
Author Organization [facility] Address [address] [place] [address] Care Team Providers Care Labeling Machine Operator Name Role Phone Tayo Jones MD Primary Care Provider [phone] Encounter Details Date Type Department Care Team (Late Contact Info) Description 02/18/2023 Orders Only External Location [address] [place] [address] Provider, External Social History Tobacco Use Types [...] Info) Description 11/19/2024 8:40 AM EDT Appointment [facility] [address] [place] [address] 11/19/2024 11:15 AM EDT Office Visit [facility] Mult[facility] On[facility] Clinic [address] [place] [address] Farhad Castillo MD [address] [phone] documented as of this encounter Procedures Procedure [...] on filedocumented in this encounter Care Teams Labeling Machine Operator Relationship Specialty Start Date End Date Tayo Jones MD [address] [place] [address] PCP - General 07/14/24 documented as of this encounter
--- OUTSIDE RECORDS SUMMARY | 2024-10-07 19:07 | XMS_ITS | Encounter Summary ---
Author Organization Healthcare Address [address] [place] [address] Care Team Providers Care Inside Sales Advisor Name Role Phone Tayo Jones MD Primary Care Provider [phone] Encounter Details Date Type Department Care Team (Late Contact Info) Description 01/24/2023 Orders Only External Location [address] [place] [address] Sue Pope MD [address] [place] [phone] Social History Tobacco Use Types Packs/Day Years [...] Care Team (Late Contact Info) Description 11/19/2024 8:[address] [facility] [address] [place] [address] 11/19/2024 11:15 AM EDT Office Visit [facility] Multidisciplinary Oncology Clinic [address] [place] [address] Farhad Castillo MD [address] [address] documented as of this encounter Procedures Procedure [...] on filedocumented in this encounter Care Teams Inside Sales Advisor Relationship Specialty Start Date End Date Tayo Jones MD [address] [phone] PCP - General 07/14/24 documented as of this encounter
--- OUTSIDE RECORDS SUMMARY | 2024-10-07 19:07 | XMS_ITS | Encounter Summary ---
Author Organization Healthcare Address [address] [place] [address] Care Team Providers Care Greenbelt Name Role Phone Tayo Jones MD Primary Care Provider [phone] Encounter Details Date Type Department Care Team ([facility] st Contact Info) Description 07/23/2024 Telephone [facility] [address] [place] [address] Farhad Castillo MD [address] [phone] Social History Tobacco Use Types Packs/Day Years [...] Message Reason for Call: Jamee calling from [facility] for Capreece I was able to transfer her call to [facility] Best contact number and optimal time of day to reach caller: Note: Please do not reply to this message. Follow-up communication and further actions as a result of this message need to be communicated with the patient directly, if the patient is not active onMyChart. If the patient is active on MyChart, they will receive notification of the communication/outcome via [employer]. documented in this encounter Plan of Treatment Upcoming Encounters Date Type Department Care Team (Late st Contact Info) Description 11/19/2024 8:40 AM EDT Appointment [facility] [address] [place] [address] 11/19/2024 11:15 AM EDT Office Visit [facility] Multidisciplinary Oncology Clinic [address] [place] [address] Farhad Castillo MD [address] [address] documented as of this encounter Visit Diagnoses Not on filedocumented in this encounter Additional Health Concerns Assessment Noted Time A fall risk assessment has been complete d for the patient 07/23/2024 8:54 AM EDT A Body Mass Index follow-up plan has been documented for the patient 07/24/2024 8:25 AM EDT documented as of this encounter Care Teams Greenbelt Relationship Specialty Start Date End Date Tayo Jones MD [address] [place] [address] PCP - General 07/14/24 documented as of this encounter
--- OUTSIDE RECORDS SUMMARY | 2024-10-07 19:07 | XMS_ITS | Encounter Summary ---
Author Organization Healthcare Address [address] [place] [address] Care Team Providers Care Oral Hygienist Name Role Phone Tayo Jones MD Primary Care Provider [phone] Encounter Details Date Type Department Care Team (Late Contact Info) Description 06/15/2024 Orders Only External Location [address] [place] [address] Provider, External Social History Tobacco Use Types [...] Info) Description 11/19/2024 8:40 AM EDT Appointment [facility] [address]nd [place] [address] 11/19/2024 11:15 AM EDT Office Visit [facility] Multidisciplinary Oncology Clinic [address] [place] [address] Farhad Castillo MD [address] [address] documented as of this encounter Procedures Procedure [...] on filedocumented in this encounter Care Teams Oral Hygienist Relationship Specialty Start Date End Date Tayo Jones MD [address] [place] [address] PCP - General 07/14/24 documented as of this encounter
--- OUTSIDE RECORDS SUMMARY | 2024-10-07 19:07 | XMS_ITS ---
Author Organization [facility] Address [address] [id number] Care Team Providers Care Tailor Garment Fitter Name Role Phone Tayo Jones MD Primary Care Provider [phone] Active Problems Problem Noted Date Diagnosed Date [...]
--- OUTSIDE RECORDS SUMMARY | 2024-10-07 19:07 | XMS_ITS | Encounter Summary ---
Author Organization [facility] Address [address] [place] [address] Care Team Providers Care Gas Welder Name Role Phone Tayo Jones MD Primary Care Provider [phone] Encounter Details Date Type Department Care Team (Late Contact Info) Description 05/31/2023 Orders Only External Location [address] [place] [address] Provider, External Social History Tobacco Use Types [...] Info) Description 11/19/2024 8:40 AM EDT Appointment [facility] [address]nd [place] [address] 11/19/2024 11:15 AM EDT Office Visit [facility] Multidisciplinary Oncology Clinic [address] [place] [address] Farhad Castillo MD [address] [address] documented as of this encounter Procedures Procedure [...] on filedocumented in this encounter Care Teams Gas Welder Relationship Specialty Start Date End Date Tayo Jones MD [address] [id number] PCP - General 07/14/24 documented as of this encounter
--- OUTSIDE RECORDS SUMMARY | 2024-10-07 19:07 | XMS_ITS | Encounter Summary ---
Author Organization [facility] Address [address] [place] [address] Care Team Providers Care Director Financial Systems Name Role Phone Tayo Jones MD Primary Care Provider [phone] Encounter Details Date Type Department Care Team (Late Contact Info) Description 07/16/2024 Lab Requisition [facility] [address] [place] [address] Farhad Castillo MD [address] [address] Other acute appendicitis without perforation [...] Info) Description 11/19/2024 8:40 AM EDT Appointment [facility] [address]nd [place] [address] 11/19/2024 11:15 AM EDT Office Visit [facility] Multidisciplinary Oncology Clinic [address] [place] [address] Farhad Castillo MD [address] [address] documented as of this encounter Procedures Procedure Name Priority Date/Time Associated Diagnosis Comments SURGICAL PATHOLOGY CONSULT Routine 07/16/2024 1:13 PM EDT Other acute appendicitis without perforation or gangrene documented in this encounter Results * Surgical Pathology Consult (07/16/2024 1:13 PM EDT) Case Report Sugical Pathology Consult Case: [id number] Authorizing Provider: Farhad Castillo MD Collected: 07/16/2024 1313 Ordering Location: [facility] Received: 07/16/2024 1313 Pathologist: Constance Murphy MD Specimen: Colon, [id number] 07/17/2024 1:[address] [facility] Final Diagnosis RIGHT COLON AND TERMINAL ILEUM, RIGHT HEMICOLECTOMY ([id number]; 11/09/2022): - 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 - TUMOR BUDDING SCORE: HIGH (10 OR GREATER). - NO TUMOR SEEN IN TWENTY ONE LYMPH NODES (0/21). 07/17/2024 1:[address] [facility] at 1308 EDT Comment Per pathology report immunohistochemical stains for MMR proteins showed retained nuclear immunoreaction for all 4 proteins (MLH-1, MSH-2, MSH-6, and PMS-2). 07/17/2024 1:[address] [facility] Clinical Information K35.890 - Other acute appendicitis without perforation or gangrene [ICD-10-CM] 07/17/2024 1:[address] [facility] Gross Description A. [id number] Received along with a corresponding pathology report from [facility] are 29 slides labeled outside case: [id number] collected on 11/09/2022. 07/17/2024 1:[address] [facility] Note: A resident was involved in the service. I attest I examined the relevant preparations for the specimens and confirmed the diagnosis or interpretation. 07/17/2024 1:[address] [facility] Tissue Colon structure / Unknown 07/16/2024 1:13 PM EDT 07/16/2024 1:13 PM EDT us Farhad Castillo MD LAB PATHOLOGY ORDERABLES F inal Result [facility] [address] [place] [address] documented in this encounter Visit Diagnoses Diagnosis Other acute appendicitis without perforation or gangrene documented in this encounter Care Teams Director Financial Systems Relationship Specialty Start Date End Date Tayo Jones MD [address] [place] [address] PCP - General 07/14/24 documented as of this encounter
--- OUTSIDE RECORDS SUMMARY | 2024-10-07 19:07 | XMS_ITS | Encounter Summary ---
Author Organization [facility] Address [address] [place] [address] Care Team Providers Care Melt House Supervisor Name Role Phone Tayo Jones MD Primary Care Provider [phone] Encounter Details Date Type Department Care Team (Late Contact Info) Description 01/15/2023 Orders Only External Location [address] [place] [address] Provider, External Social History Tobacco Use Types [...] Info) Description 11/19/2024 8:40 AM EDT Appointment [facility] CT [address] [place] [address] 11/19/2024 11:15 AM EDT Office Visit [facility] Multidisciplinary Oncology Clinic [address] [place] [address] Farhad Castillo MD [address] [address] documented as of this encounter Procedures Procedure [...] on filedocumented in this encounter Care Teams Melt House Supervisor Relationship Specialty Start Date End Date Tayo Jones MD [address] [phone] PCP - General 07/14/24 documented as of this encounter
--- OUTSIDE RECORDS SUMMARY | 2024-10-07 19:07 | XMS_ITS | Encounter Summary ---
Author Organization [facility] Address [address] [place] [address] Care Team Providers Care Maths Tutor Name Role Phone Tayo Jones MD Primary Care Provider [phone] Encounter Details Date Type Department Care Team (Late Contact Info) Description 05/06/2024 Orders Only External Location [address] [place] [address] Provider, External Social History Tobacco Use Types [...] Info) Description 11/19/2024 8:40 AM EDT Appointment [facility] [address]nd [place] [address] 11/19/2024 11:15 AM EDT Office Visit [facility] Multidisciplinary Oncology Clinic [address] [place] [address] Farhad Castillo MD [address] [address] documented as of this encounter Procedures Procedure [...] on filedocumented in this encounter Care Teams Maths Tutor Relationship Specialty Start Date End Date Tayo Jones MD [address] [phone] PCP - General 07/14/24 documented as of this encounter
--- OUTSIDE RECORDS SUMMARY | 2024-10-07 19:07 | XMS_ITS | Encounter Summary ---
Author Organization [facility] Address [address] [place] [address] Care Team Providers Care Postmaster Name Role Phone Tayo Jones MD Primary Care Provider Encounter Details Date Type Department Care Team (Late Contact Info) Description 05/06/2024 Orders Only External Location [address] [place] [address] Provider, External Social History Tobacco Use Types [...] Info) Description 11/19/2024 8:40 AM EDT Appointment [facility] CT [address] 2[address] [place] [address] 11/19/2024 11:15 AM EDT Office Visit [facility] Multidisciplinary Oncology Clinic [address] [place] [address] Farhad Castillo MD [address] [address] documented as of this encounter Procedures Procedure [...] on filedocumented in this encounter Care Teams Postmaster Relationship Specialty Start Date End Date Tayo Jones MD [address] [phone] PCP - General 07/14/24 documented as of this encounter
--- OUTSIDE RECORDS SUMMARY | 2024-10-07 19:07 | XMS_ITS | Clinical Summary ---
Author Organization [facility] Address [address] [place] [address] Care Team Providers Care Change House Attendant Name Role Phone Tayo Jones MD Primary Care Provider [phone] Allergies No known active allergies Medications carvedilol [...] Orders Only [facility] [address] [place] [address] Farhad Castillo MD Metastatic colon cancer to liver (CMS/HCC) (Primary Dx) 07/31/2024 7:30 AM EDT - 07/31/2024 9:00 AM EDT Surgery [facility] [address] [place] [address] Farhad Castillo MD INSERTION, TUNNELED CENTRAL VENOUS DEVICE, WITH PORT [67974 (CPT )] 07/31/2024 7:29 AM EDT Anesthesia Event [facility] [address] [place] [address] Wilian Jefferson MD Latham, Jeremy J, MD 07/31/2024 5:40 AM EDT - 07/31/2024 10:10 AM EDT Hospital Encounter [facility] [address] [place] [address] Farhad Castillo MD Metastatic colon cancer to liver (CMS/HCC) [C18.9, C78.7] (Primary Dx) Discharge Disposition: Home or Self Care 07/31/2024 Travel 07/29/2024 Telephone [facility] [address] [place] [address] Farhad Castillo MD 07/27/2024 10:00 AM EDT Pre-Admission Testing [facility] Pre-op Clinic [address] [place] [address] 07/27/2024 Telephone [facility] [address] [place] [address] Farhad Castillo MD 07/27/2024 Telephone [facility] [address] [place] [address] Farhad Castillo MD 07/27/2024 Travel 07/23/2024 11:10 AM EDT - 07/23/2024 11:59 PM EDT Hospital Encounter [facility] CT [address] 2[address] [place] [address] Metastatic colon cancer to liver (CMS/HCC) Discharge Disposition: Home or Self Care 07/23/2024 8:30 AM EDT Office Visit [facility] [address] [place] [address] Farhad Castillo MD Metastatic colon cancer to liver (CMS/HCC) (Primary Dx) 07/23/2024 Telephone [facility] [address] [place] [address] Farhad Castillo MD 07/23/2024 Travel 07/16/2024 Lab Requisition [facility] [address] [place] [address] Farhad Castillo MD Other acute appendicitis without [...] Info) Description 11/19/2024 8:40 AM EDT Appointment [facility] [address] [place] [address] 11/19/2024 11:15 AM EDT Office Visit [facility] Multidisciplinary Oncology Clinic [address] [place] [address] Farhad Castillo MD [address] [address] Health Maintenance Due Date Last [...] 1983 UKY-Zoster Vaccines (1 of 2) 1983 MLV-QHCZE-19 Vaccine ( season) 2023 01/15/2022, 03/28/2021, 07/27/2020, [...] this topic Medical Devices Implanted Type Area Bulk System Operator Device Identifier Shelf Expiration Date Model / Serial / Lot Port Clearvue Power 8fr - S. - [id number] Implanted:Qty : 1 on 07/31/2024 by Farhad Castillo MD at [facility] Other Medication Pump Left: Chest [employer]-[id number] 07/13/2025 [id number] / . / [id number] Procedures Procedure Name Priority Date/Time Associated Diagnosis Comments XR CHEST 1 VIEW STAT 07/31/2024 9:42 AM EDT POCT GLUCOSE METER UNSOLICITED RESULTS Routine 07/31/2024 9:31 AM EDT FL LESS THAN 1 HOUR (NON-REPORTABLE) Routine 07/31/2024 8:59 AM EDT PB ANESTHESIA PLACEHOLDER Routine 07/31/2024 7:33 AM EDT TX AN ELECTIVE ENDOTRACHEAL AIRWAY Routine 07/31/2024 7:33 AM EDT TX INSERT TUNNELED CV CATH WITH PORT 07/31/2024 [...] 07/31/2024 2:28 PM EDT [facility] Corporate Travel Manager ID Rosalinda Pool 08/01/19 2:28 PM EDT [facility] Device ID [id number] 07/31/2024 2:28 PM EDT [facility] Specimen Type POC Capillary 07/31/2024 2:28 PM EDT [facility] Blood Capillary blood specimen / Unknown 07/31/2024 9:31 AM EDT 07/31/2024 2:28 PM EDT Farhad Castillo MD LAB POINT OF CARE TEST DOCKED DEVICE UNSOLICITED RESULTS Final Result [facility] [address] [place] [address] * FL Less than 1 Hour Intraoperative (07/31/2024 8:59 AM EDT) Narrative IMAGING - 07/31/2024 8:59 AM EDT Images were obtained for surgical purposes. See Farhad Castillo's surgical note in the patient's chart for the findings. Farhad Castillo MD IMG FLUOROSCOPY PROCEDURES Final Result IMAGING * TX AN ELECTIVE ENDOTRACHEAL AIRWAY, PB ANESTHESIA PLACEHOLDER [...] grade 2a view with lopro 4. Result [facility] Wilian Jefferson MD ANESTHESIA ORDERABLES Final [...] Total DLP (Dose-Length Product): 2037.69 mGy.cm (accession [id number]), 2037.69 mGy.cm (accession [id number]) Please note: The reported value represents the [...] Total DLP (Dose-Length Product): 2037.69 mGy.cm (accession [id number]),2037.69 mGy.cm (accession [id number]) Please note: The reported valuerepresents the total [...] Total DLP (Dose-Length Product): 2037.69 mGy.cm (accession [id number]), 2037.69 mGy.cm (accession [id number]) Please note: The reported value represents the [...] Total DLP (Dose-Length Product): 2037.69 mGy.cm (accession [id number]),2037.69 mGy.cm (accession [id number]) Please note: The reported valuerepresents the total [...] LAB COAGULATION METHOD 07/23/2024 11:15 AM EDT [facility] Blood Venous blood specimen / Unknown Venipuncture / Unknown 07/23/2024 10:36 AM EDT 07/23/2024 10:54 AM EDT Farhad Castillo MD LAB BLOOD ORDERABLES Final Result Performing Organization Address [facility] Co de Phone Number [facility] [address] [place] [address] * (ABNORMAL) Prothrombin Time/INR (07/23/2024 10:36 AM EDT) Prothrombin Time 14.6(H) 12.0 - 14.3 sec LAB COAGULATION METHOD 07/23/2024 11:15 AM EDT [facility] INR 1.1 0.9 - 1.1 LAB COAGULATION METHOD 07/23/2024 11:15 AM EDT [facility] Blood Venous blood specimen / Unknown Venipuncture / Unknown 07/23/2024 10:36 AM EDT 07/23/2024 10:54 AM EDT Narrative [facility] - 07/23/2024 11:15 AM EDT OPTIMAL INR RANGES FOR PATIENT ON ORAL ANTICOAGULANT THERAPY Prevention of venous thromboembolism INR 2.0 to 3.0 In patients with heart disease: Atrial fibrillation INR 2.0 to 3.0 Valvular heart disease INR 2.0 to 3.0 Tissue heart valves INR 2.0 to 3.0 Mechanical prosthetic valves INR 2.5 to 3.5 Prevention of recurrent AL INR 2.5 to 3.5 us Farhad Castillo MD LAB BLOOD ORDERABLES Final Result Performing Organization Address City/[facility]/ZIP Co de Phone Number [facility] [address] [place] [address] * (ABNORMAL) CBC W/O Differential (07/23/2024 10:36 AM EDT) WBC Count 13.58(H) 3.70 - 10.30 10*3/uL LAB HEMATOLOGY METHOD 07/23/2024 11:01 AM EDT [facility] RBC Count 3.98(L) 4.60 - 6.10 10*6/uL LAB HEMATOLOGY METHOD 07/23/2024 11:01 AM EDT [facility] HGB 13.8 13.7 - 17.5 g/dL LAB HEMATOLOGY METHOD 07/23/2024 11:01 AM EDT [facility] HCT 39.5(L) 40.0 - 51.0 % LAB HEMATOLOGY METHOD 07/23/2024 11:01 AM EDT [facility] Platelet Count 290 155 - 369 10*3/uL LAB HEMATOLOGY METHOD 07/23/2024 11:01 AM EDT [facility] MCV 99(H) 79 - 98 fL LAB HEMATOLOGY METHOD 07/23/2024 11:01 AM EDT [facility] MCH 34.7(H) 26.0 - 32.0 pg LAB HEMATOLOGY METHOD 07/23/2024 11:01 AM EDT [facility] MCHC 34.9 30.7 - 35.5 g/dL LAB HEMATOLOGY METHOD 07/23/2024 11:01 AM EDT [facility] RDW 14.6(H) 11.5 - 14.5 % LAB HEMATOLOGY METHOD 07/23/2024 11:01 AM EDT [facility] MPV 8.6(L) 8.8 - 12.5 fL LAB HEMATOLOGY METHOD 07/23/2024 11:01 AM EDT [facility] nRBC 0.0 <=0.0 per 100 WBCs LAB HEMATOLOGY METHOD 07/23/2024 11:01 AM EDT [facility] Blood Venous blood specimen / Unknown Venipuncture / Unknown 07/23/2024 10:36 AM EDT 07/23/2024 10:54 AM EDT Farhad Castillo MD LAB BLOOD ORDERABLES Final Result [facility] [address] [place] [address] * Prealbumin, Plasma (07/23/2024 10:36 AM EDT) Prealbumin, Plasma 22.6 20.0 - 41.0 mg/dL 07/23/2024 11:29 AM EDT [facility] Blood Venous blood specimen / Unknown Venipuncture / Unknown 07/23/2024 10:36 AM EDT 07/23/2024 10:54 AM EDT Farhad Castillo MD LAB BLOOD ORDERABLES Final Result [facility] [address] [place] [address] * (ABNORMAL) Hemoglobin A1c (07/23/2024 10:36 AM EDT) Hemoglobin A1c 7.7(H) <5.7 % 07/23/2024 12:23 PM EDT [facility] Blood Venous blood specimen / Unknown Venipuncture / Unknown 07/23/2024 10:36 AM EDT 07/23/2024 10:54 AM EDT Narrative [facility] - 07/23/2024 12:23 PM EDT HA1C Interpretive Data: Diagnosis of Diabetes: Diabetic > or = 6.5% Pre-diabetic 5.7 to 6.4% Non-diabetic < or = 5.6% Glycemic Targets for Type I and Type II Diabetics: Non- Adults <7.0% Adults <6.0% Children and Adolescents <7.5% Source: [place] [employer]. Standards of medical care in diabetes,2017. Diabetes Care.2017:40 (suppl 1):S1-S135. Farhad Castillo MD LAB BLOOD ORDERABLES Final Result Performing Organization Address City/[facility]/ZIP Co de Phone Number [facility] [address] [place] [address] * (ABNORMAL) CEA, Serum (07/23/2024 10:36 AM EDT) CEA, Serum 9.1(H) <4.0 ng/mL 07/23/2024 11:32 AM EDT [facility] Blood Venous blood specimen / Unknown Venipuncture / Unknown 07/23/2024 10:36 AM EDT 07/23/2024 10:54 AM EDT Narrative [facility] - 07/23/2024 11:32 AM EDT Normal range for smokers: < 5.5 ng/ml Normal range for non-smokers: <=4.0 ng/ml Performed by [employer] electrochemiluminescent immunoassay. Results obtained with different test methods or kits cannot be used interchangeably. us Farhad Castillo MD LAB BLOOD ORDERABLES Final Result [facility] [address] [place] [address] * (ABNORMAL) Comprehensive Metabolic Panel, Plasma (07/23/2024 10:36 AM EDT) Glucose, Plasma 148(H) 74 - 99 mg/dL 07/23/2024 11:29 AM EDT [facility] BUN, Plasma 21 8 - 23 mg/dL 07/23/2024 11:29 AM EDT [facility] Creatinine, Plasma 0.96 0.70 - 1.20 mg/dL 07/23/2024 11:29 AM EDT [facility] BUN/Creatinine Ratio 22 07/23/2024 11:29 AM EDT [facility] Sodium, Plasma 136 136 - 145 mmol/L 07/23/2024 11:29 AM EDT [facility] Potassium, Plasma 4.4 3.6 - 4.9 mmol/L 07/23/2024 11:29 AM EDT [facility] Chloride, Plasma 104 97 - 107 mmol/L 07/23/2024 11:29 AM EDT [facility] CO2, Plasma 18(L) 22 - 29 mmol/L 07/23/2024 11:29 AM EDT [facility] Anion Gap 14 6 - 16 mmol/L 07/23/2024 11:29 AM EDT [facility] Total Calcium, Plasma 9.6 8.9 - 10.2 mg/dL 07/23/2024 11:29 AM EDT [facility] Total Protein 8.0(H) 6.3 - 7.9 g/dL 07/23/2024 11:29 AM EDT [facility] Albumin, Plasma 4.0 3.5 - 5.2 g/dL 07/23/2024 11:29 AM EDT [facility] AST, Plasma 41 10 - 50 U/L 07/23/2024 11:29 AM EDT [facility] Comment:Hemolyzed, result ma y be falsely increased. ALT, Plasma 15 10 - 50 U/L 07/23/2024 11:29 AM EDT [facility] Alkaline Phosphatase, Plasma 74 40 - 115 U/L 07/23/2024 11:29 AM EDT [facility] Total Bilirubin, Plasma 0.7 0.2 - 1.1 mg/dL 07/23/2024 11:29 AM EDT [facility] eGFRcr 90.5 mL/min/1.7 3m*2 07/23/2024 11:29 AM EDT [facility] Comment:Reported eGFRcr in m L/min/1.73m2 is based the CKD-EPI 2020 equation that does not use a race coefficient. Blood Venous blood specimen / Unknown Venipuncture / Unknown 07/23/2024 10:36 AM EDT 07/23/2024 10:54 AM EDT Farhad Castillo MD LAB BLOOD ORDERABLES Final Result [facility] [address] [place] [address] * Surgical Pathology Consult (07/16/2024 1:13 PM EDT) Case Report Sugical Pathology Consult Case: [id number] Authorizing Provider: Farhad Castillo MD Collected: 07/16/2024 1313 Ordering Location: [facility] Received: 07/16/2024 1313 Pathologist: Constance Murphy MD Specimen: Colon, [id number] 07/17/2024 1:08 PM EDT [facility] Final Diagnosis RIGHT COLON AND TERMINAL ILEUM, RIGHT HEMICOLECTOMY ([id number]; 11/09/2022): - 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 - TUMOR BUDDING SCORE: HIGH (10 OR GREATER). - NO TUMOR SEEN IN TWENTY ONE LYMPH NODES (0/21). 07/17/2024 1:08 PM EDT [facility] at 1308 EDT Comment Per pathology report immunohistochemical stains for MMR proteins showed retained nuclear immunoreaction for all 4 proteins (MLH-1, MSH-2, MSH-6, and PMS-2). 07/17/2024 1:08 PM EDT [facility] Clinical Information K35.890 - Other acute appendicitis without perforation or gangrene [ICD-10-CM] 07/17/2024 1:08 PM EDT [facility] Gross Description A. [id number] Received along with a corresponding pathology report from [facility] are 29 slides labeled outside case: [id number] collected on 11/09/2022. 07/17/2024 1:08 PM EDT [facility] Note: A resident was involved in the service. I attest I examined the relevant preparations for the specimens and confirmed the diagnosis or interpretation. 07/17/2024 1:08 PM EDT [facility] Tissue Colon structure / Unknown 07/16/2024 1:13 PM EDT 07/16/2024 1:13 PM EDT us Farhad Castillo MD LAB PATHOLOGY ORDERABLES F inal Result [facility] [address] [place] [address] from Last 3 Months Insurance [place] Care Teams Change House Attendant Relationship Specialty Start Date End Date Tayo Jones MD [address] [place] [address] PCP - General 07/14/24
--- OUTSIDE RECORDS SUMMARY | 2024-10-07 19:07 | XMS_ITS | Encounter Summary ---
Author Organization Healthcare Address [address] [id number] Care Team Providers Care Key Account Representative Name Role Phone Tayo Jones MD Primary Care Provider [phone] Encounter Details Date Type Department Care Team (Late st Contact Info) Description 07/29/2024 Telephone [facility] [address] [place] [address] Farhad Castillo MD [address] [phone] Social History Tobacco Use Types Packs/Day Years [...] from Rosie Post, Oncology Nurse Navigator at [facility] in Dr. Matthew's office. She is requesting a call back from the clinic yon with Dr. Castillo's recommendations for POC now that scans are complete. She can be reached at [phone]. documented in this encounter Plan of Treatment Upcoming Encounters Date Type Department Care Team (Late st Contact Info) Description 11/19/2024 8:40 AM EDT Appointment [facility] [address] [place] [address] 11/19/2024 11:15 AM EDT Office Visit [facility] [address] [place] [address] Farhad Castillo MD [address] [address] documented as of this encounter Visit Diagnoses Not on filedocumented in this encounter Additional Health Concerns Assessment Noted Time A fall risk assessment has been complete d for the patient 07/23/2024 8:54 AM EDT A Body Mass Index follow-up plan has been documented for the patient 07/24/2024 8:25 AM EDT documented as of this encounter Care Teams Key Account Representative Relationship Specialty Start Date End Date Tayo Jones MD [address] [place] [address] PCP - General 07/14/24 documented as of this encounter
--- OUTSIDE RECORDS SUMMARY | 2024-10-07 19:07 | XMS_ITS | Encounter Summary ---
Author Organization Healthcare Address [address] [id number] Care Team Providers Care Poultry Hatchery Laborer Name Role Phone Tayo Jones MD Primary Care Provider [phone] Encounter Details Date Type Department Care Team (Late st Contact Info) Description 07/27/2024 Telephone [facility] [address] [place] [address] Farhad Castillo MD [address] [address] Social History Tobacco Use Types Packs/Day Years [...] Message Reason for Call: Kim calling from [facility] to speak to Audrey. Best contact number and optimal time of day to reach caller: [phone] ext [phone] Note: Please do not reply to this message. Follow-up communication and further actions as a result of this message need to be communicated with the patient directly, if the patient is not active onMyChart. If the patient is active on MyChart, they will receive notification of the communication/outcome via [employer]. documented in this encounter Plan of Treatment Upcoming Encounters Date Type Department Care Team (Late st Contact Info) Description 11/19/2024 8:40 AM EDT Appointment [facility] [address] [place] [address] 11/19/2024 11:15 AM EDT Office Visit [facility] [address] [place] [address] Farhad Castillo MD [address] [address] documented as of this encounter Visit Diagnoses Not on filedocumented in this encounter Additional Health Concerns Assessment Noted Time A fall risk assessment has been complete d for the patient 07/23/2024 8:54 AM EDT A Body Mass Index follow-up plan has been documented for the patient 07/24/2024 8:25 AM EDT documented as of this encounter Care Teams Poultry Hatchery Laborer Relationship Specialty Start Date End Date Tayo Jones MD [address] [place] [address] PCP - General 07/14/24 documented as of this encounter
--- OUTSIDE RECORDS SUMMARY | 2024-10-07 19:08 | XMS_ITS | Encounter Summary ---
Author Organization Healthcare Address [address] [place] [address] Care Team Providers Care Trauma Counsellor Name Role Phone Tayo Jones MD Primary Care Provider [phone] Encounter Details Date Type Department Care Team (Late Contact Info) Description 01/15/2023 Orders Only External Location [address] [place] [address] Sue Pope MD [address] [place] [address] [id number] Social History Tobacco Use Types Packs/Day Years [...] Info) Description 11/19/2024 8:40 AM EDT Appointment [facility] [address] [place] [address] 11/19/2024 11:15 AM EDT Office Visit [facility] Mult[facility] Oncology Clinic [address] [place] [address] Farhad Castillo MD [address] [address] documented as of this encounter Procedures Procedure [...] on filedocumented in this encounter Care Teams Trauma Counsellor Relationship Specialty Start Date End Date Tayo Jones MD [address] [phone] PCP - General 07/14/24 documented as of this encounter
--- NOTE | 2024-10-07 19:18 | CT_ITS ---
PROCEDURE INFORMATION: Exam: CT Abdomen And Pelvis With Contrast Exam date and time: 10/07/2024 7:58 PM Age: 59 years old Clinical indication: Abdominal pain; Additional info: Nvd abd pain history of colon cancer TECHNIQUE: Imaging protocol: Computed tomography of the abdomen and pelvis with contrast. Radiation optimization: All CT scans at this facility use at least one of these dose optimization techniques: automated exposure control; mA and/or kV adjustment per patient size (includes targeted exams where dose is matched to clinical indication); or iterative reconstruction. Contrast material: ISOVUE; Contrast volume: 75 ml; Contrast route: IV; COMPARISON: CT ABDOMEN PELVIS W CON 05/06/2024 10:37 AM FINDINGS: Liver: Diffuse fatty liver infiltration. Poorly defined hypodense lesion in hepatic dome measuring 2.5 x 2.3 maximal dimension 2.8 cm. Second lesion in posterior segment, right liver lobe not appreciably changed measuring 2.3 cm. Attenuating artifact in posterior segment, right liver lobe. Gallbladder and biliary ducts: Normal. No calcified stones. No ductal dilation. Pancreas: Normal. No ductal dilation. Spleen: Normal. No splenomegaly. Adrenal glands: Normal. No mass. Kidneys and ureters: No nephroureterolithiasis. No hydronephrosis. Stomach and bowel: High-grade small bowel obstruction with multiple loops of dilated fluid-filled bowel with transition point in right lower quadrant ( series 3, image 60). Pneumocystis coli in segment of right colon (series 3, image 57). Diffuse ascending colon to rectal distension with fluid level. Appendix: Not visualized. Intraperitoneal space: Unremarkable. No free air. No significant fluid collection. Vasculature: Unremarkable. No abdominal aortic aneurysm. Lymph nodes: Unremarkable. No enlarged lymph nodes. Urinary bladder: Unremarkable as visualized. Reproductive: Unremarkable as visualized. Bones/joints: Unremarkable. No acute fracture. Soft tissues: Anterior abdominal wall defect with nonobstructive bowel loop herniation. IMPRESSION: 1. High-grade small bowel obstruction with transition in right lower quadrant. 2. Diffuse colonic dilatation, likely ileus, without obstruction with nonspecific pneumocystis coli in right colon, without obvious evidence for bowel ischemia. 3. Stable to modestly smaller right hepatic dome lesion. Similar posterior segment, right liver lobe lesion. Stable metastases versus heterogeneously increased fatty infiltration foci in differential considerations. Consider nonurgent MRI for further imaging correlation as clinically indicated. 4. Anterior abdominal wall nonobstructive bowel containing hernia.
[2024-10-07] MEDS: 0.9 % SODIUM CHLORIDE 1000ML 1,000 ML 999 ML IV (19:38)
[2024-10-07] MEDS: ONDANSETRON 4MG/2ML VIAL 4 MG IV (19:38)
--- NOTE | 2024-10-07 19:46 | PC.NURSE ---
Pt abd noted to be distended with a hernia that the patient states he has had for a long time.
--- NOTE | 2024-10-07 19:47 | ECG_ITS ---
APPROVED REPORT Exam: Resting ECG HR:82 bpm ECG Measurements Heart Rate 82 AXES ME 176 P 59 QRSd 174 QRS -17 QT 450 T 87 QTc 489 Conclusion SINUS RHYTHM RIGHT BUNDLE BRANCH BLOCK [120+ ms QRS DURATION, UPRIGHT V1, 40+ ms S IN I/aVL/V4/V5/V6] ABNORMAL ECG UNCONFIRMED REPORT Electronically signed by : SARAY LEE, 10/08/2024 06:13:48
[2024-10-07] MEDS: IOPAMIDOL-370 (76%);100ML BOTTLE 75 ML IV (19:58)
[2024-10-07] MEDS: SODIUM CHLORIDE 0.9% 10ML SYR (RAD ONLY) 10 ML IV (19:58)
[2024-10-07 20:02] LABS: Basophils % 0.4 % (0.1-2.0); Eosinophils # 0.1 Kmm3 (0.0-0.4); Eosinophils % 0.5 % (0.1-12.0); Hematocrit 38.9 % (42.0-52.0); Hemoglobin 13.3 g/dL (14.1-18.0); Immature Granulocytes # 0.08 10^3uL; Immature Granulocytes % 0.7 %; Lymphocytes # 1.6 K/mm3 (0.7-4.5); Lymphocytes % 13.7 % (10-50); Mean Corpuscular HGB Conc 34.2 g/dL (31.8-35.4); Mean Corpuscular Hemoglobin 31.5 pg (27.0-31.2); Mean Corpuscular Volume 92.2 fl (80-94); Mean Platelet Volume 9.3 fl (7.4-10.4); Monocytes # 2.1 K/mm3 (0.1-1.0); Monocytes % 18.5 % (1.7-9.3); Neutrophils # 7.5 K/mm3 (1.8-7.8); Neutrophils % 66.2 % (37.0-80.0); Nucleated Red Blood Cells # 0 10^3/uL; Nucleated Red Blood Cells % 0 %; Platelet Count 354 K/mm3 (142-424); Red Blood Count 4.22 M/mm3 (4.60-6.20); Red Cell Distribution Width 13.5 % (11.5-17.5); Red Cell Distribution Width-SD 45.7 fL; White Blood Count 11.3 K/mm3 (4.8-10.8)
[2024-10-07 20:08] LABS: MANUAL DIFFERENTIAL MANUAL DIFFERENTIAL (MANUAL DIFF)
[2024-10-07 20:12] LABS: Alanine Aminotransferase 14 U/L (12-78); Albumin Level 4.4 g/dl (3.5-5.0); Albumin/Globulin Ratio 1.3 (1.1-1.8); Alkaline Phosphatase 76 U/L (38-126); Aspartate Amino Transferase 24 U/L (17-59); Bilirubin,Total 1.1 mg/dl (0.2-1.3); Blood Urea Nitrogen 44 mg/dl (9-20); Calcium 9.6 mg/dl (8.4-10.2); Carbon Dioxide 13 mmol/L (22.0-30.0); Chloride 93 mmol/L (98-107); Creatinine Clearance Estimated 79 mL/min (50-200); Estimated Glomerular Filt Rate 44 ml/min (>60); GFR (African American) 54 ML/MIN (>60); Globulin 3.4 g/dL (1.3-3.2); Glucose 255 mg/dl (74-100); Lipase 53 U/L (23-300); Magnesium 1.9 mg/dl (1.6-2.3); Sodium 123 mmol/L (136-145); Total Protein,Serum 7.8 g/dl (6.3-8.2)
[2024-10-07 20:18] LABS: C-Reactive Protein 85.7 mg/L (0-4)
[2024-10-07 20:26] LABS: Erythrocyte Sedimentation Rate 60 mm/hr (0-20)
[2024-10-07 20:29] LABS: Lymphocytes % 18 % (10-50); Monocytes % 15 % (2-9); Neutrophils % 67 % (42-76); Total Cells Counted 100
[2024-10-07 20:31] LABS: Lactic Acid 1.5 mmol/L (0.7-2.1)
[2024-10-07] MEDS: KCl 20mEq/100ml 100 ML 50 MEQ IV ×2 (20:44→22:19)
[2024-10-07 21:05] LABS: HIV Combo NEGATIVE (Negative)
[2024-10-07 21:13] LABS: Hepatitis C Ab Qual. W/ RFX NEGATIVE (Negative)
[2024-10-07 21:16] LABS: Acetone, Serum (Rapid) None Detected (None Detect)
[2024-10-07] MEDS: PIPERACILLIN/TAZO 3.375 GM in 0.9 % SODIUM CHLORIDE 50 ML IV (22:16)
--- NOTE | 2024-10-07 22:18 | PC.NURSE ---
ECF updated on disposition
--- NOTE | 2024-10-07 22:43 | PC.NURSE ---
notified EMS of transfer to [facility] ED
--- NOTE | 2024-10-07 23:15 | PC.NURSE ---
attempted to call [facility], pts sister. no answer.
== END 2024-10-07 23:16 | disposition short-term general hospital (02) ==
PROVIDERS: Physician Assistant; Emergency Provider Emergency Medicine; PCP Family Medicine
DX: K56.601 Complete intestinal obstruction, unspecified as to cause (principal); R10.84 Generalized abdominal pain; E87.6 Hypokalemia; E87.1 Hypo-osmolality and hyponatremia; K63.89 Other specified diseases of intestine; Z85.038 Personal history of other malignant neoplasm of large intestine; Z92.21 Personal history of antineoplastic chemotherapy
CPT/HCPCS: 74177; 80053; 82009; 83605; 83690; 83735; 84145; 85007; 85025; 85027; 85651; 86140; 86803; 87040; 87389; 93005; 96361; 96365; 96366; 96375; 99291; J2405; J2543; J3480; J7030; Q9967

== ENCOUNTER 2024-10-13 09:42 | Outpatient (CLI) | payer MEDICAID, SELFPAY ==
--- OUTSIDE RECORDS SUMMARY | 2024-10-08 00:10 | XMS_ITS | Encounter Summary ---
Author Organization [facility] Address [address] [id number] Care Team Providers Care Mold Sander Name Role Phone Tayo Jones MD Primary Care Provider [phone] Reason for Visit * Reason Comments Abdominal Pain * Auth/Cert (Routine) Specialty Diagnoses / Procedures Referred By Samia t Referred To Contact Diagnoses Bowel obstruction (CMS/HCC) Bowel Obstruction, hx of Colon Cancer Wilda Carson MD [address] [address] Phone: tel: fax: [facility] [address] [place] [address] Phone: tel: Referral ID Status Reason Start Date Expiration Date Visits Re quested Visits Authorized [id number] 1 1 Encounter Details Date Type Department Care Team (Latest Contact Info) Description 10/08/2024 12:10 AM EDT - 10/09/2024 3:38 PM EDT Hospital Encounter [facility] Emergency Department [address] [place] [address] Mickie Jefferson MD [address] [place] [address] Wilda Carson MD [address] [address] Small bowel obstruction (CMS/HCC) (Primary [...] any time in the past 12 m [facility], were you homeless or living in a chcf (including now)? No 10/09/2024 Utilities Answer Date [...] follow up your medical oncology team at [facility] Questions: Call the [facility] at [phone] during business hours on weekdays or call [facility]'s after hours at [phone] to speak with a resident packer insulation for Colorectal surgery after 5pm or on [...] Note Nayan Womack 59 y.o. male CSN: [id number] Admission: 10/08/2024 12:10 AM Primary Problem: Bowel obstruction (CMS/HCC) Primary Tooling Specialist: Self/ Facility Assistance Available at Discharge: Availability of Care Givers (#Hours): 24 hours Discharge Facility/Level of Care Needs: Discharge Facility/Level of Care Needs: 3-Assisted Facility Patient's Choice of Community Agency(s): [facility] ([facility]) Patient/Family Anticipated Services at Transition: Patient/Family Anticipated Services at Transition: none DME/Equipment Needed after Discharge: Equipment Currently Used at Home: none Readmission Within the Last 30 Days: Readmission Within the Last 30 Days: no previous admission in last 30 days Medicare Documentation: Medicare Second Notice?: No (N/A -1 Day) Follow-up: Franky Kim PA [address] [place] [address] Discharge Transportation: Transportation Anticipated: family or friend will provide Transportation Home at Discharge: Family/Friend will Provide Follow Up Transport: Transportation Needed to Follow up Appoinments: Other(Comment) (Facility) Additional Comments: POC reviewed with primary team. Refer to primary team's discharge note for details. Per MD pt is medically ready to discharge today. Pt is a ltc resident at a [facility]. Dispo: [facility] Facility: [facility] Facility Address: [address] [place] [address] RN to call Report: [phone] DC summary Fax: SW Sent through [employer] Transport: Sister to transport Patient is in [...] (currently on chemo) who presented to the [facility] on 10/08/2024 from anOSH d/t a bowel obstruction. His oncology care is provided at [facility]. CT imaging on presentation with diffusely [...] name and Address: Tayo Jones MD [address] [facility] [address] Referring provider name and address: Franky Kim PA [address] [facility] [address] [place] [address] Chief Concern, Brief History of Present Illness, and Hospital Course Nayan Womack is a 59 y.o. male with PMHx significant for moderately differentiated colon adenocarcinoma s/p R colectomy and adjuvant xeloda, loss to follow up, and recent representation with metastatic disease to the liver (currently on chemo) who presented to the [facility] on 10/08/2024 from [facility] d/t a bowel obstruction. His oncology care is provided at [facility]. CT imaging on presentation with diffusely [...] Center 11/19/2024 8:[address] 1 [facility]GSH [facility] 11/19/2024 11:15 AM Farhad Castillo MD [...] from the original note were not included. [facility] Department of Surgery Division of Colorectal Surgery Surgery Progress Note 10/09/24 Nayan Womack Subjective Subjective: HPI Nayan Womack is a 59 y.o. male with PMHx significant for moderately differentiated colon adenocarcinoma s/p R colectomy and adjuvant xeloda, loss to follow up, and recent representation with metastatic disease to the liver currently at [facility](driven by Onc at [facility]) who presented to the [facility] on 10/08/2024 from an OSH d/t [...] liver currently at chemo(driven by Onc at [facility]) who presented to the [facility] on 10/08/2024 from an OSH d/t [...] original note were not included. [facility] Department of Surgery Division of Colorectal [...] liver currently at chemo(driven by Onc at [facility]) who presented to the [facility] on 10/08/2024 from an OSH d/t [...] History Administered Date(s) Administered Moderna COVID-19 Vaccine (Auto Damage Adjuster) 12+ years 06/29/2020, 07/27/2020, 03/28/2021 Pfizer-BioNTech COVID-19 [...] liver currently at chemo(driven by Onc at [facility]) who presented to the [facility] on 10/08/2024 from an OSH d/t [...] down and gluc 225 -f/u CT imaging -[facility] Dispo: Admit to scr CODE STATUS: [...] Review Outcome: Ongoing, Progressing Flowsheets (Taken 10/09/2024 9190) Plan of Care Reviewed With: patient Goal: Patient-Specific Goal (Individualized) Outcome: Ongoing, Progressing Goal: Absence of Hospital-Acquired Illness or Injury Outcome: Ongoing, Progressing Intervention: Identify and Manage Fall Risk Flowsheets (Taken 10/09/2024826) Safety Promotion/Fall Prevention: assistive device/personal items within [facility] fall prevention program maintained safety round/check completed mobility aid in [facility] clutter-free environment maintained Intervention: Prevent Infection Flowsheets [...] Safety Promotion/Fall Prevention: assistive device/personal items within [facility] fall prevention program maintained safety round/check completed mobility aid in [facility] clutter-free environment maintained Intervention: Prevent Infection Flowsheets [...] None Disposition Admit Admitting/Attending Physician: WILDA CARSON [[id number]] Provider Care Team: MEIR MANZANARES COLORECTAL SURGERY [...] 11/19/2024 8:40 AM EDT Appointment [facility] [address] [facility] [facility] [place] [address] 11/19/2024 11:15 AM EDT Office Visit [facility] Multidisciplinary Oncology Clinic [address] [place] [address] Farhad Castillo MD [address] [phone] documented as of this encounter Procedures Procedure [...] for testing. Comment 10/09/2024 12:12 PM EDT [facility] Entry Level Java Developer ID Alyx, Julia 025 12:12 PM EDT [facility] Device ID [id number] 10/09/2024 12:12 PM EDT [facility] Specimen Type POC Capillary 10/09/2024 12:12 PM EDT [facility] Blood Capillary blood specimen / Unknown 10/09/2024 12:08 PM EDT 10/09/2024 12:12 PM EDT Wilda Carson MD LAB POINT OF CARE TE ST DOCKED DEVICE UNSOLICITED RESULTS Final Result Performing Organization Address City/State/[facility] Co de Phone Number HEALTHCARE LAB [address] [place] [address] * XR Abdomen 1 View (10/09/2024 9:41 [...] glucose meter (10/09/2024 5:47 AM EDT) Pathologist [facility] POCT Glucose 270(H) 74 - 99 mg/dL [...] for testing. Comment 10/09/2024 5:49 AM EDT [facility] Entry Level Java Developer ID Flor Marks 10/09/2024 5:49 AM EDT [facility] Device ID [id number] 10/09/2024 5:49 AM EDT [facility] Specimen Type POC Capillary 10/09/2024 5:49 AM EDT [facility] Blood Capillary blood specimen / Unknown 10/09/2024 5:47 AM EDT 10/09/2024 5:49 AM EDT Wilda Carson MD LAB POINT OF CARE TE ST DOCKED DEVICE UNSOLICITED RESULTS Final Result Performing Organization Address City/State/[facility] de Phone Number HEALTHCARE LAB [address] [place] [address] * (ABNORMAL) Basic metabolic panel (10/09/2024 4:28 AM EDT) Pathologist [facility] Glucose, Plasma 286(H) 74 - 99 mg/dL [...] EDT 10/09/2024 5:03 AM EDT Eva Barnes BRADDER, DNP LAB BLOOD ORDERABLE S Final Result [facility] [address] [place] [address] * (ABNORMAL) CBC W/O Differential (10/09/2024 4:28 [...] EDT 10/09/2024 4:50 AM EDT Eva Barnes BRADDER, DNP LAB BLOOD ORDERABLE S Final Result [facility] [address] [place] [address] * XR Gastrograffin Challenge (10/09/2024 1:17 AM [...] glucose meter (10/08/2024 11:59 PM EDT) [facility] POCT Glucose 287(H) 74 - [...] Comment 10/09/2024 12:00 AM EDT [facility]ALTHCARE [facility] Entry Level Java Developer ID Flor Marks 10/09/2024 12:00 AM EDT HEALTHCARE LAB Device ID [id number] 10/09/2024 12:00 AM EDT [facility]ALTH[facility]ARE LAB Specimen Type POC Capillary 10/09/2024 12:00 AM EDT [facility] Blood Capillary blood specimen / Unknown 10/08/2024 11:59 PM EDT 10/09/2024 12:00 AM EDT us Wilda Carson MD LAB POINT OF CARE TE ST DOCKED DEVICE UNSOLICITED RESULTS Final Result Performing Organization Address City/State/[facility] Co de Phone Number [facility] [address] [place] [address] * (ABNORMAL) POCT glucose meter (10/08/2024 9:01 PM EDT) [facility] POCT Glucose 284(H) 74 - [...] 10/08/2024 9:03 PM EDT [facility] Entry Level Java Developer ID Isma Quiroz 025 9:03 PM EDT [facility] Device ID [id number] 10/08/2024 9:03 PM EDT [facility]ARE [facility] Specimen Type POC Capillary 10/08/2024 9:03 PM EDT [facility] Blood Capillary blood specimen / Unknown 10/08/2024 9:01 PM EDT 10/08/2024 9:03 PM EDT Wilda Carson MD LAB POINT OF CARE TE ST DOCKED DEVICE UNSOLICITED RESULTS Final Result Performing Organization Address City/[facility] Co de Phone Number HEALTHCARE LAB [address] [place] [address] * (ABNORMAL) POCT glucose meter (10/08/2024 5:08 [...] Comment 10/08/2024 5:10 PM EDT [facility]ALTHCARE LAB Entry Level Java Developer ID Franchesca Herrera 5:10 PM EDT [facility] Device ID [id number] 10/08/2024 5:10 PM EDT HEALTH[facility]ARE LAB Specimen Type POC Capillary 10/08/2024 5:10 PM EDT [facility] Blood Capillary blood specimen / Unknown 10/08/2024 5:08 PM EDT 10/08/2024 5:10 PM EDT us Wilda Carson MD LAB POINT OF CARE TE ST DOCKED DEVICE UNSOLICITED RESULTS Final Result Performing Organization Address City/[facility] Co de Phone Number [facility]ARE [facility] [address] [place] [address] * (ABNORMAL) POCT glucose meter (10/08/2024 11:57 [...] Comment 10/08/2024 11:59 AM EDT [facility]ARE [facility] Entry Level Java Developer ID Phuong Glass 025 11:59 AM EDT HEALTHCARE LAB Device ID [id number] 10/08/2024 11:59 AM EDT [facility]ARE [facility] Specimen Type POC Capillary 10/08/2024 11:59 AM EDT [facility] Blood Capillary blood specimen / Unknown 10/08/2024 11:57 AM EDT 10/08/2024 11:59 AM EDT Wilda Carson MD LAB POINT OF CARE TE ST DOCKED DEVICE UNSOLICITED RESULTS Final Result Performing Organization Address City/State/[facility] Co de Phone Number [facility]ARE [facility] [address] [place] [address] * (ABNORMAL) POCT glucose meter (10/08/2024 7:55 AM EDT) [facility] POCT Glucose 248(H) 74 - [...] 10/08/2024 7:57 AM EDT [facility] Entry Level Java Developer ID Phuong Glass 025 7:57 AM EDT [facility] Device ID [id number] 10/08/2024 7:57 AM EDT HEALTH[facility]ARE LAB Specimen Type POC Capillary 10/08/2024 7:57 AM EDT [facility] Blood Capillary blood specimen / Unknown 10/08/2024 7:55 AM EDT 10/08/2024 7:57 AM EDT us Wilda Carson MD LAB POINT OF CARE TE ST DOCKED DEVICE UNSOLICITED RESULTS Final Result Performing Organization Address City/[facility] Co de Phone Number [facility] [address] [place] [address] * (ABNORMAL) POCT glucose meter (10/08/2024 5:40 [...] Comment 10/08/2024 5:42 AM EDT HEALTHCARE LAB Entry Level Java Developer ID Bj Canales 10/08/2024 5:42 AM EDT HEALTHCARE LAB Device ID [id number] 10/08/2024 5:42 AM EDT [facility] Specimen Type POC Capillary 10/08/2024 5:42 AM EDT [facility] Blood Capillary blood specimen / Unknown 10/08/2024 5:40 AM EDT 10/08/2024 5:42 AM EDT us Wilda Carson MD LAB POINT OF CARE TE ST DOCKED DEVICE UNSOLICITED RESULTS Final Result Performing Organization Address City/[facility]/ZIP Co de Phone Number [facility] [address] [place] [address] * (ABNORMAL) Hemoglobin A1c (10/08/2024 4:59 AM [...] Adults <6.0% Children and Adolescents <7.5% Source: [place] [employer]. Standards of medical care in diabetes,2017. Diabetes Care.2017:40 (suppl 1):S1-S135. us Wilda Carson MD LAB BLOOD ORDERABLES Final Res ult Performing Organization Address City/[facility]/ZIP Co de Phone Number [facility] [address] [place] [address] * Phosphorus, Plasma (10/08/2024 4:59 AM EDT) Phosphorus, Plasma 3.8 2.5 - 4.5 mg/dL 10/08/2024 6:00 AM EDT [facility] Blood Venous blood specimen / Unknown Venipuncture / Unknown 10/08/2024 4:59 AM EDT 10/08/2024 5:16 AM EDT us Wilda Carson MD LAB BLOOD ORDERABLES Final Res ult Performing Organization Address [facility] Co de Phone Number [facility] [address] [place] [address] * (ABNORMAL) Magnesium, Plasma (10/08/2024 4:59 AM EDT) Magnesium, Plasma 1.7(L) 1.9 - 2.4 mg/dL 10/08/2024 6:00 AM EDT [facility] Blood Venous blood specimen / Unknown Venipuncture / Unknown 10/08/2024 4:59 AM EDT 10/08/2024 5:16 AM EDT us Wilda Carson MD LAB BLOOD ORDERABLES Final Res ult Performing Organization Address City/[facility] Co de Phone Number [facility] [address] [place] [address] * (ABNORMAL) CBC W/O Differential (10/08/2024 4:59 AM EDT) [facility] Signature WBC Count 9.53 3.70 - [...] ult [facility] [address] [place] [address] * (ABNORMAL) Basic Metabolic Panel, Plasma (10/08/2024 [...] MD LAB BLOOD ORDERABLES Final Res ult [facility] [address] [place] [address] * CT Abdomen Pelvis w IV Contrast [...] ECG Atrial Rate 85 BPM MUSE ECG ND Interval 168 ms MUSE ECG QRSD Interval 162 ms MUSE ECG QT Interval 442 ms MUSE ECG QTC Interval 525 ms MUSE ECG P [place] 16 degrees MUSE ECG R [place] -32 degrees MUSE ECG T Wave [place] 47 degrees MUSE ECG Diagnosis Normal sinus rhythm MUSE ECG Diagnosis Left axis deviation in the presence of LAFB MUSE ECG Diagnosis Right bundle branch block Bifascicular block MUSE ECG Diagnosis Minimal voltage criteria for LVH, may be normal variant ( R in aVL ) MUSE ECG Diagnosis Abnormal ECG MUSE ECG Diagnosis MUSE ECG Diagnosis Confirmed by Adarsh Pichardo ([id number]) on 10/08/2024 10:50:58 AM MUSE ECG 10/08/2024 [...] ORDERABLES Final Re sult Performing Organization Address City/[facility]/ZIP Co de Phone Number [facility] [address] [place] [address] * Hepatitis C Antibody - ED (10/08/2024 12:55 AM EDT) Hepatitis C Antibody Negative Negative 10/08/2024 2:16 AM EDT [facility] Blood Venous blood specimen / Unknown Venipuncture / Unknown 10/08/2024 12:55 AM EDT 10/08/2024 1:11 AM EDT us Mickie Jefferson MD LAB BLOOD ORDERABLES Final Re sult [facility] [address] [place] [address] * Type and screen (10/08/2024 12:55 AM [...] ORDERABLE S Final Result Performing Organization Address [facility] de Phone Number BLOOD BANK [address] [place] [address], [place] * (ABNORMAL) PT-INR (10/08/2024 12:55 AM [...] INR 2.5 to 3.5 Prevention of recurrent SD INR 2.5 to 3.5 us Mickie Jefferson MD LAB BLOOD ORDERABLES Final Re sult Performing Organization Address [facility] Co de Phone Number [facility] [address] [place] [address] * (ABNORMAL) CBC w/diff (10/08/2024 12:55 AM [...] [facility] [address] [place] [address] * Lactic acid, venous (10/08/2024 12:55 AM EDT) Lactate, Venous, Whole Blood 1.1 0.5 - 2.2 mmol/L LAB HEMATOLOGY METHOD 10/08/2024 1:10 AM EDT [facility] Blood Venous blood specimen / Unknown Venipuncture / Unknown 10/08/2024 12:55 AM EDT 10/08/2024 1:07 AM EDT us Mickie Jefferson MD LAB BLOOD ORDERABLES Final Re sult Performing Organization Address City/[facility]/ZIP Co de Phone Number [facility] [address] [place] [address] * (ABNORMAL) Phosphorus (10/08/2024 12:55 AM EDT) Phosphorus, Plasma 4.6(H) 2.5 - 4.5 mg/dL 10/08/2024 1:37 AM EDT [facility] Blood Venous blood specimen / Unknown Venipuncture / Unknown 10/08/2024 12:55 AM EDT 10/08/2024 1:05 AM EDT us Mickie Jefferson MD LAB BLOOD ORDERABLES Final Re sult Performing Organization Address [facility] [place] [address] * Magnesium (10/08/2024 12:55 AM EDT) Magnesium, Plasma 1.9 1.9 - 2.4 mg/dL 10/08/2024 1:37 AM EDT [facility] Blood Venous blood specimen / Unknown Venipuncture / Unknown 10/08/2024 12:55 AM EDT 10/08/2024 1:05 AM EDT us Mickie Jefferson MD LAB BLOOD ORDERABLES Final Re sult Performing Organization Address [facility] Co de Phone Number [facility] [address] [place] [address] * (ABNORMAL) CMP (10/08/2024 12:55 AM EDT) [...] sult [facility] [address] [place] [address] documented in this encounter Visit Diagnoses Diagnosis [...] RN)[id number] (New Bag - Provider: Michell Campa, AJN)1029 (Stopped - Provider: Michell Campa RN)1030 (New [...] documented as of this encounter Care Teams Mold Sander Relationship Specialty Start Date End Date Tayo Jones MD [address] [place] [address] PCP - General 07/14/24 documented as of this encounter
--- OUTSIDE RECORDS SUMMARY | 2024-10-13 09:47 | XMS_ITS | Encounter Summary ---
Author Organization [facility] Address [address] [place] [address] Care Team Providers Care Dye House Helper Name Role Phone Tayo Jones MD Primary Care Provider [phone] Encounter Details Date Type Department Care Team (Late Contact Info) Description 01/15/2023 Orders Only External Location [address] [place] [address] Provider, External Social History Tobacco Use Types [...] EDT Appointment [facility] [address] [place] [address] 11/19/2024 11:15 AM EDT Office Visit [facility] Multidisciplinary Oncology Clinic [address] [place] [address] Farhad Castillo MD [address] [address] documented as of this encounter Procedures Procedure [...] on filedocumented in this encounter Care Teams Dye House Helper Relationship Specialty Start Date End Date Tayo Jones MD [address] [id number] PCP - General 07/14/24 documented as of this encounter
--- OUTSIDE RECORDS SUMMARY | 2024-10-13 09:47 | XMS_ITS | Encounter Summary ---
Author Organization [facility] Address [address] [place] [address] Care Team Providers Care Solar Sales Representative And Assessor Name Role Phone Jeremy Gil MD Unavailable Andres Alcantara DPM Unavailable [place] Fletcher MD Unavailable Niko Cueva MD Unavailable None, None Primary Care Provider UnavailGm Vigil DPM Unavailable Reina Byrd NP Unavailable Unavailable Encounter Details Date Type Department Care Team (Late st Contact Info) Description 09/08/2020 Clinical Update [facility] Physicians - Infectious Diseases, [facility] [address] [place] [address] [phone] [place] Fletcher MD [address] [place] [address] [id number] Social History Tobacco Use Types Packs/Day Years [...] (SGPT) (09/07/2020) ALT 5 U/L Plasma Result [facility] [place] Fletcher MD CHEMISTRY ORDERABLES Final Re sult * ALKALINE PHOSPHATASE (09/07/2020) Alkaline Phosphatase 98 U/L Plasma Result [facility] [place] Fletcher MD CHEMISTRY ORDERABLES Final Re sult * ALBUMIN (09/07/2020) Albumin 2.6 Plasma Result [facility] [place] Fletcher MD CHEMISTRY ORDERABLES Final Re [...] on filedocumented in this encounter Care Teams Solar Sales Representative And Assessor Relationship Specialty Start Date End Date None, None [address] [place] [address] PCP - General 10/26/20 Jeremy Gil MD [address] [place] [address] Room [address] [place] [address] Internal Medicine 08/19/20 Andres Alcantara DPM [address] [facility]. [address] [place] [address] Resident Podiatry 08/22/20 [place] Fletcher MD [address] [facility] [address] [place] [address] Infectious Diseases 09/08/20 Niko Cueva MD [address] [facility] [address] [place] [address] Vascular Surgery 09/16/20 Gm Flor DPM [address] [facility]. [address] [place], [place] [id number] Podiatry 11/01/20 Reina Byrd NP [address] [facility] [address] Nurse Practitioner Vascular Surgery 11/30/20 documented as of this encounter
--- OUTSIDE RECORDS SUMMARY | 2024-10-13 09:47 | XMS_ITS | Encounter Summary ---
Author Organization [facility] Address [address] [id number] Care Team Providers Care Fleet Operations Manager Name Role Phone Tayo Jones MD Primary Care Provider [phone] Encounter Details Date Type Department Care Team (Late st Contact Info) Description 07/29/2024 Telephone [facility] [address] [place] [address] Farhad Castillo MD [address] [address] Social History Tobacco Use Types Packs/Day Years [...] from Rosie Post, Oncology Nurse Navigator at [facility] in Dr. Matthew's office. She is requesting a call back from the clinic yon with Dr. Castillo's recommendations for POC now that scans are complete. She can be reached at [phone]. documented in this encounter Plan of Treatment Upcoming Encounters Date Type Department Care Team (Late st Contact Info) Description 11/19/2024 8:40 AM EDT Appointment [facility] [address] [place] [address] 11/19/2024 11:15 AM EDT Office Visit [facility] Multidisciplinary Oncology Clinic [address] [place] [address] Farhad Castillo MD [address] [address] documented as of this encounter Visit Diagnoses Not on filedocumented in this encounter Additional Health Concerns Assessment Noted Time A fall risk assessment has been complete d for the patient 07/23/2024 8:54 AM EDT A Body Mass Index follow-up plan has been documented for the patient 07/24/2024 8:25 AM EDT documented as of this encounter Care Teams Fleet Operations Manager Relationship Specialty Start Date End Date Tayo Jones MD [address] [place] [address] PCP - General 07/14/24 documented as of this encounter
--- OUTSIDE RECORDS SUMMARY | 2024-10-13 09:47 | XMS_ITS | Encounter Summary ---
Author Organization [facility] Address [address] [place] [address] Care Team Providers Care Dentistry Teacher Name Role Phone Tayo Jones MD Primary Care Provider [phone] Encounter Details Date Type Department Care Team (Late Contact Info) Description 05/06/2024 Orders Only External Location [address] [place] [address] Provider, External Social History Tobacco Use Types [...] Info) Description 11/19/2024 8:40 AM EDT Appointment [facility] [address] [place] [address] 11/19/2024 11:15 AM EDT Office Visit [facility] Multidisciplinary Oncology Clinic [address] [place] [address] Farhad Castillo MD [address] [address] documented as of this encounter Procedures Procedure [...] on filedocumented in this encounter Care Teams Dentistry Teacher Relationship Specialty Start Date End Date Tayo Jones MD [address] [phone] PCP - General 07/14/24 documented as of this encounter
--- OUTSIDE RECORDS SUMMARY | 2024-10-13 09:47 | XMS_ITS ---
Author Organization [facility] Address [address] [id number] Care Team Providers Care Psychiatric Assistant Name Role Phone Tayo Jones MD Primary Care Provider [phone] Active Problems Problem Noted Date Diagnosed Date Bowel obstruction 10/08/2024 Obesity (BMI 35.0-39.9 without comorbidity) 07/14 Metastatic [...]
--- OUTSIDE RECORDS SUMMARY | 2024-10-13 09:47 | XMS_ITS | Encounter Summary ---
Author Organization Healthcare Address [address] [place] [address] Care Team Providers Care Java Web Engineer Name Role Phone Tayo Jones MD Primary Care Provider [phone] Encounter Details Date Type Department Care Team ([facility] st Contact Info) Description 07/23/2024 Telephone [facility] [address] [place] [address] Farhad Castillo MD [address] [phone] Social History Tobacco Use Types Packs/Day Years [...] Reason for Call: Jamee calling from [facility] for [place]ce I was able to transfer her call to [facility] Best contact number and optimal time of day to reach caller: Note: Please do not reply to this message. Follow-up communication and further actions as a result of this message need to be communicated with the patient directly, if the patient is not active onMyChart. If the patient is active on MyChart, they will receive notification of the communication/outcome via DRO Biosystemshart. documented in this encounter Plan of Treatment Upcoming Encounters Date Type Department Care Team (Late st Contact Info) Description 11/19/2024 8:40 AM EDT Appointment [facility] [address]nd [place] [address] 11/19/2024 11:15 AM EDT Office Visit [facility] Multidisciplinary Oncology Clinic [address] [place] [address] Farhad Castillo MD [address] [address] documented as of this encounter Visit Diagnoses Not on filedocumented in this encounter Additional Health Concerns Assessment Noted Time A fall risk assessment has been complete d for the patient 07/23/2024 8:54 AM EDT A Body Mass Index follow-up plan has been documented for the patient 07/24/2024 8:25 AM EDT documented as of this encounter Care Teams Java Web Engineer Relationship Specialty Start Date End Date Tayo Jones MD [address] [place] [address] PCP - General 07/14/24 documented as of this encounter
--- OUTSIDE RECORDS SUMMARY | 2024-10-13 09:47 | XMS_ITS | Encounter Summary ---
Author Organization [facility] Address [address] [place] [address] Care Team Providers Care Supervising Deputy Name Role Phone Tayo Jones MD Primary Care Provider [phone] Encounter Details Date Type Department Care Team (Late Contact Info) Description 02/18/2023 Orders Only External Location [address] [place] [address] Provider, External Social History Tobacco Use Types [...] EDT Appointment [facility] [address] [place] [address] 11/19/2024 11:15 AM EDT Office Visit [facility] Multidisciplinary Oncology Clinic [address] [place] [address] Farhad Castillo MD [address] [phone] documented as of this encounter Procedures Procedure [...] on filedocumented in this encounter Care Teams Supervising Deputy Relationship Specialty Start Date End Date Tayo Jones MD [address] [place] [address] PCP - General 07/14/24 documented as of this encounter
--- OUTSIDE RECORDS SUMMARY | 2024-10-13 09:47 | XMS_ITS | Encounter Summary ---
Author Organization Healthcare Address [address] [id number] Care Team Providers Care Aircraft Electrical Systems Specialist Name Role Phone Tayo Jones MD Primary Care Provider [phone] Encounter Details Date Type Department Care Team (Late st Contact Info) Description 07/27/2024 Telephone [facility] [address] [place] [address] Farhad Castillo MD [address] [address] Social History Tobacco Use Types Packs/Day Years [...] Message Reason for Call: Kim calling from [facility] to speak to Audrey. Best contact number and optimal time of day to reach caller: [phone] ext [phone] Note: Please do not reply to this message. Follow-up communication and further actions as a result of this message need to be communicated with the patient directly, if the patient is not active onMyChart. If the patient is active on MyChart, they will receive notification of the communication/outcome via Lumicshart. documented in this encounter Plan of Treatment Upcoming Encounters Date Type Department Care Team (Late st Contact Info) Description 11/19/2024 8:40 AM EDT Appointment [facility] [address] [place] [address] 11/19/2024 11:15 AM EDT Office Visit [facility] Multidisciplinary Oncology Clinic [address] [place] [address] Farhad Castillo MD [address] [address] documented as of this encounter Visit Diagnoses Not on filedocumented in this encounter Additional Health Concerns Assessment Noted Time A fall risk assessment has been complete d for the patient 07/23/2024 8:54 AM EDT A Body Mass Index follow-up plan has been documented for the patient 07/24/2024 8:25 AM EDT documented as of this encounter Care Teams Aircraft Electrical Systems Specialist Relationship Specialty Start Date End Date Tayo Jones MD [address] [place] [address] PCP - General 07/14/24 documented as of this encounter
--- OUTSIDE RECORDS SUMMARY | 2024-10-13 09:47 | XMS_ITS | Clinical Summary ---
Author Organization [facility] Address [address] [place] [address] Care Team Providers Care Music Critic Name Role Phone Jeremy Gil MD Unavailable Andres Alcantara DPM Unavailable [place] Fletcher MD Unavailable [phone] Niko Cueva MD Unavailable None, None Primary Care Provider UnavailGm Vigil DPM Unavailable Reina Byrd NP Unavailable Unavailable Allergies No known active allergies Medications Insulin Glargine (Lantus) 100 unit/mL (3 mL) Solostar INPNIndications :Type 2 diabetes mellitus with hyperglycemia, with long-term current use of insulin ([facility]) 16 Units by Subcutaneous route every 24 [...] hyperglycemia, with long-term current use of insulin ([facility]) PVD (peripheral vascular disease) ([facility]) Other osteomyelitis of left foot Social History [...] Advance Directives For more information, please contact: [phone] * Full Code (Latest Code Status on File) Date Activated Date Inactivated Comments 08/19/2020 3:05 AM No automated ch est compression devices for VAD Patients Care Teams Music Critic Relationship Specialty Start Date End Date None, None [address] [facility] [place] [address] PCP - General 10/26/20 Jeremy Gil MD [address] [facility] Room [address] [place] [address] Internal Medicine 08/19/20 Andres Alcantara DPM [address] [facility]. [address] [place] [address] Resident Podiatry 08/22/20 [place] Fletcher MD [address] [place] [address] [address] [place] [address] Infectious Diseases 09/08/20 Niko Cueva MD [address] [place] [address] [address] [place] [address] Vascular Surgery 09/16/20 Gm Flor DPM [address] [address] Podiatry 11/01/20 Reina Byrd NP [address] [place] [address] Nurse Practitioner Vascular Surgery 11/30/20
--- OUTSIDE RECORDS SUMMARY | 2024-10-13 09:47 | XMS_ITS | Encounter Summary ---
Author Organization [facility] Address [address] [place] [address] Care Team Providers Care Compliance Lead Name Role Phone Tayo Jones MD Primary Care Provider [phone] Encounter Details Date Type Department Care Team (Late Contact Info) Description 07/16/2024 Lab Requisition [facility] [address] [place] [address] Farhad Castillo MD [address] [address] Other acute appendicitis without perforation [...] Info) Description 11/19/2024 8:40 AM EDT Appointment [facility] [address] [place] [address] 11/19/2024 11:15 AM EDT Office Visit [facility] Multidisciplinary Oncology Clinic [address] [place] [address] Farhad Castillo MD [address] [address] documented as of this encounter Procedures Procedure Name Priority Date/Time Associated Diagnosis Comments SURGICAL PATHOLOGY CONSULT Routine 07/16/2024 1:13 PM EDT Other acute appendicitis without perforation or gangrene documented in this encounter Results * Surgical Pathology Consult (07/16/2024 1:13 PM EDT) Case Report Sugical Pathology Consult Case: [id number] Authorizing Provider: Farhad Castillo MD Collected: 07/16/2024 1313 Ordering Location: [facility] Lab Received: 07/16/2024 1313 Pathologist: Constance Murphy MD Specimen: Colon, [id number] 07/17/2024 1:[address] [facility] Final Diagnosis RIGHT COLON AND TERMINAL ILEUM, RIGHT HEMICOLECTOMY ([id number]; 11/09/2022): - INVASIVE MODERATELY DIFFERENTIATED ADENOCARCINOMA OF [...] [facility] Gross Description A. [id number] Received along with a corresponding pathology report from [facility] are 29 slides labeled outside case: [id number] collected on 11/09/2022. 07/17/2024 1:08 PM EDT [...] inal Result [facility] [address] [place] [address] documented in this encounter Visit Diagnoses Diagnosis Other acute appendicitis without perforation or gangrene documented in this encounter Care Teams Compliance Lead Relationship Specialty Start Date End Date Tayo Jones MD [address] [place] [address] PCP - General 07/14/24 documented as of this encounter
--- OUTSIDE RECORDS SUMMARY | 2024-10-13 09:47 | XMS_ITS | Encounter Summary ---
Author Organization [facility] Address [address] [place] [address] Care Team Providers Care Tuyere Fitter Name Role Phone Tayo Jones MD Primary Care Provider Encounter Details Date Type Department Care Team (Latest Contact Info) Description 10/09/2024 Travel Social History Tobacco Use Types Packs/Day [...] any time in the past 12 m ont, were you homeless or living in a alf (including now)? No 10/09/2024 Utilities Answer Date [...] Info) Description 11/19/2024 8:40 AM EDT Appointment [facility] [address] [place] [address] 11/19/2024 11:15 AM EDT Office Visit [facility] Multidisciplinary Oncology Clinic [address] [place] [address] Farhad Castillo MD [address] [address] documented as of this encounter Visit Diagnoses Not on filedocumented in this encounter Additional Health Concerns Assessment Noted Time A fall risk assessment has been complete d for the patient 07/23/2024 8:54 AM EDT A Body Mass Index follow-up plan has been documented for the patient 10/09/2024 3:15 PM EDT documented as of this encounter Care Teams Tuyere Fitter Relationship Specialty Start Date End Date Tayo Jones MD [address] [place] [address] PCP - General 07/14/24 documented as of this encounter
--- OUTSIDE RECORDS SUMMARY | 2024-10-13 09:47 | XMS_ITS | Encounter Summary ---
Author Organization Healthcare Address [address] [id number] Care Team Providers Care Enrollment Consultant Name Role Phone Tayo Jones MD Primary Care Provider [phone] Encounter Details Date Type Department Care Team (Late st Contact Info) Description 07/27/2024 Telephone [facility] [address] [place] [address] Farhad Castillo MD [address] [address] Social History Tobacco Use Types Packs/Day Years [...] optimal time of day to reach caller: [phone] ext [phone] Note: Please do not reply [...] Info) Description 11/19/2024 8:40 AM EDT Appointment [facility] [address] [place] [address] 11/19/2024 11:15 AM EDT Office Visit [facility] Multidisciplinary Oncology Clinic [address] [place] [address] Farhad Castillo MD [address] [address] documented as of this encounter Visit Diagnoses Not on filedocumented in this encounter Additional Health Concerns Assessment Noted Time A fall risk assessment has been complete d for the patient 07/23/2024 8:54 AM EDT A Body Mass Index follow-up plan has been documented for the patient 07/24/2024 8:25 AM EDT documented as of this encounter Care Teams Enrollment Consultant Relationship Specialty Start Date End Date Tayo Jones MD [address] [place] [phone] PCP - General 07/14/24 documented as of this encounter
--- OUTSIDE RECORDS SUMMARY | 2024-10-13 09:47 | XMS_ITS | Clinical Summary ---
Author Organization [facility] Address [address] [place] [address] Care Team Providers Care Council Member Name Role Phone Tayo Jones MD Primary Care Provider [phone] Allergies No known active allergies Medications carvedilol [...] Encounters Date Type Department Care Team Description 10/09/2024 Travel 10/08/2024 12:10 AM EDT - 10/09/2024 3:38 PM EDT Hospital Encounter [facility] Emergency Department [address] [place] [address] Mickie Jefferson MD Hourigan, Jon S, MD Small bowel obstruction (CMS/HCC) (Primary Dx); Abdominal pain, generalized Discharge Disposition: Home or Self Care 10/08/2024 Travel 10/07/2024 Orders Only External Location [address] [place] [address] Provider, External 08/03/2024 Orders Only [facility] Mult[facility]cology [facility] [address] [place] [address] Farhad Castillo MD Metastatic colon cancer to liver (CMS/HCC) (Primary Dx) 07/31/2024 7:30 AM EDT - 07/31/2024 9:00 AM EDT Surgery [facility] OPERATING ROOM [address] [place] [address] Farhad Castillo MD INSERTION, TUNNELED CENTRAL VENOUS DEVICE, WITH PORT [89904 (CPT )] 07/31/2024 7:29 AM EDT Anesthesia Event [facility] [address] [place] [address] Wilian Jefferson MD Latham, Jeremy J, MD 07/31/2024 5:40 AM EDT - 07/31/2024 10:10 AM EDT Hospital Encounter [facility]PERATING RO[facility] [address] [place] [address] Farhad Castillo MD Metastatic colon cancer to liver (CMS/HCC) [C18.9, C78.7] (Primary Dx) Discharge Disposition: Home or Self Care 07/31/2024 Travel 07/29/2024 Telephone [facility] [address] [place] [address] Farhad Castillo MD 07/27/2024 10:00 AM EDT Pre-Admission Testing [facility] [address], [address] [place] [address] 07/27/2024 Telephone [facility] [address] [place] [address] Farhad Castillo MD 07/27/2024 Telephone [facility] [address] [place] [address] Farhad Castillo MD 07/27/2024 Travel 07/23/2024 11:10 AM EDT - 07/23/2024 11:59 PM EDT Hospital Encounter [facility] CT [address]nd [place] [address] Metastatic colon cancer to liver (CMS/HCC) Discharge Disposition: Home or Self Care 07/23/2024 8:30 AM EDT Office Visit [facility] [address] [place] [address] Farhad Castillo MD Metastatic colon cancer to liver (CMS/HCC) (Primary Dx) 07/23/2024 Telephone [facility] [address] [place] [address] Farhad Castillo MD 07/23/2024 Travel 07/16/2024 Lab Requisition [facility] [address] [place] [address] Farhad Castillo MD Other acute appendicitis without [...] any time in the [facility], were you homeless or living in a senior care (including now)? No 10/09/2024 Utilities Answer Date Recorded In the past 12 months has th e [employer], gas, oil, or water company threatened to [...] oz) 10/08/2024 12:14 A M EDT Height 175.3 cm (5' 9 ) 07/23/2024 8:46 AM EDT Body Mass Index 36.98 07/23/2024 8:46 AM EDT Plan of Treatment Upcoming Encounters Date Type Department Care Team (Late st Contact Info) Description 11/19/2024 8:40 AM EDT Appointment [facility] [address]nd [place] [address] 11/19/2024 11:15 AM EDT Office Visit [facility] Multidisciplinary Oncology Clinic [address] [place] [address] Farhad Castillo MD [address] [address] Health Maintenance Due Date Last Done Comments [facility]-Infant/Child/Adol SDOH Screenings 1965 Diabetes: Dental Exam 1974 [facility]-DTaP,Tdap,and Td Vaccines (1 - Tdap) 1983 [facility]-Hepatitis A Vaccines (1 of 2 - Risk 2-dose series) 1983 [facility]-Zoster Vaccines (1 of 2) 1983 [id number] Vaccine ( season) 2023 01/15/2022, 03/28/2021, 07/27/2020, Additional history exists [facility]-RSV Vaccine: 60+ Years or (1 - Risk 60-74 years 1-dose series) 2024 [facility]-Influenza Vaccine (#1) 2024 [facility]-Diabetes: Hemoglobin A1C 01/07/2025 10/08/2024, 07/23/2024 [facility]- SDOH Screenings 04/10/2025 [facility]-Adult SDOH Screenings 04/10/2025 10/09/2024 [facility]-Depression Screening 07/23/2025 07/23/2024 [facility]-Pneumococcal Vaccine: 50+ Years Completed 05/27/2024, 04/22/2021, 09/12/2020 [facility]-Obesity Intervention Completed 10/07/2024, 07/14 [facility]-HIV Screening Completed 10/08/2024 [facility]-Hepatitis C Screening Completed 10/08/2024 HPV Vaccines Aged Out No longer eligi [...] this topic Medical Devices Implanted Type Area P D Driver Device Identifier Shelf Expiration Date Model / Serial / Lot Port Clearvue Power 8fr - S. - [id number] Implanted:Qty : 1 on 07/31/2024 by Farhad Castillo MD at [facility] Other Medication Pump Left: Chest [employer]-[id number] 07/13/2025 [id number] / . / [id number] Procedures Procedure Name Priority Date/Time Associated Diagnosis Comments POCT GLUCOSE METER UNSOLICITED RESULTS Routine 10/09/2024 12:08 PM EDT XR ABDOMEN 1 VIEW Routine 10/09/2024 9:4 1 AM EDT POCT GLUCOSE METER UNSOLICITED RESULTS Routine 10/09/2024 5:47 AM EDT BASIC METABOLIC PANEL, PLASMA Routine 10/09/2024 4:28 AM EDT CBC W/O DIFFERENTIAL Routine 10/09/2024 4:28 AM EDT XR GASTROGRAFFIN [...] UNSOLICITED RESULTS Routine 10/08/2024 5:40 AM EDT HEMOGLOBIN A1C Add-On 10/08/2024 4:59 AM EDT PHOSPHORUS, PLASMA Routine 10/08/2024 4: 59 AM EDT MAGNESIUM, PLASMA Routine 10/08/2024 4:5 9 AM EDT CBC W/O DIFFERENTIAL STAT 10/08/2024 4:59 AM EDT BASIC METABOLIC PANEL, [...] ANTIBODY DIFFERENTIATION STAT 10/08/2024 12:55 AM EDT HEPATITIS C ANTIBODY - ED W/REFLEX TO HCV QUANT PCR STAT 10/08/2024 12:55 AM EDT TYPE AND SCREEN STAT 10/08/2024 12:55 AM EDT PROTHROMBIN TIME(PT) / INR STAT 10/08/2024 12:55 AM EDT CBC WITH AUTO DIFFERENTIAL STAT 10/08/2024 12:55 AM EDT LACTATE, VENOUS STAT 10/08/2024 12:55 AM EDT PHOSPHORUS, PLASMA STAT 10/08/2024 12:55 AM EDT MAGNESIUM, PLASMA STAT 10/08/2024 12:55 AM EDT COMPREHENSIVE METABOLIC PANEL, PLASMA STAT 10/08/2024 12:[address] OUTSIDE IMAGES 10/07/2024 7:5 8 PM EDT XR CHEST 1 VIEW STAT 07/31/2024 9:42 AM EDT POCT GLUCOSE METER UNSOLICITED RESULTS Routine 07/31/2024 9:31 AM EDT FL LESS THAN 1 HOUR (NON-REPORTABLE) Routine 07/31/2024 8:59 AM EDT PB ANESTHESIA PLACEHOLDER Routine 07/31/2024 7:33 AM EDT OH AN ELECTIVE ENDOTRACHEAL AIRWAY Routine 07/31/2024 7:33 AM EDT OH INSERT TUNNELED CV CATH WITH PORT 07/31/2024 7:13 AM EDT Metastatic colon cancer to liver (CMS/HCC) Special Needs requires fluoro and C-arm capable bed POCT GLUCOSE METER UNSOLICITED RESULTS Routine 07/31/2024 6:[address] ABDOMEN PELVIS W IV CONTRAST STAT 07/23/2024 12:01 PM EDT Metastatic colon cancer to liver (CMS/HCC) CT CHEST W IV CONTRAST STAT 12:01 PM EDT Metastatic colon cancer to [...] to liver (CMS/HCC) PREALBUMIN, PLASMA Routine 07/23/2024 10:36 AM EDT Metastatic colon cancer to liver (CMS/HCC) COMPREHENSIVE METABOLIC PANEL, PLASMA Routine 07/23/2024 10:36 AM EDT Metastatic colon cancer to liver (CMS/HCC) CBC W/O DIFFERENTIAL Routine 07/23/2024 10:36 AM EDT Metastatic colon cancer to liver (CMS/HCC) SURGICAL PATHOLOGY CONSULT Routine 07/16/2024 1:13 PM EDT Other acute appendicitis without perforation or gangrene from Last 3 Months Results * (ABNORMAL) POCT glucose meter (10/09/2024 12:08 PM EDT) Only the most recent of10 resultswithin the time period is included. POCT Glucose 240(H) 74 - 99 mg/dL 10/09/2024 12:12 PM EDT [facility] Comment:Accuracy of a glucos e result [...] Comment 10/09/2024 12:12 PM EDT [facility] Flash Developer ID Julia Wisdom [id number] 12:12 PM EDT HEALTHCARE LAB Device ID [id number] 10/09/2024 12:12 PM EDT [facility] Specimen Type POC Capillary 10/09/2024 12:12 PM EDT [facility] Blood Capillary blood specimen / Unknown 10/09/2024 12:08 PM EDT 10/09/2024 12:12 PM EDT us Jj Carson MD LAB POINT OF CARE TE ST DOCKED DEVICE UNSOLICITED RESULTS Final Result Performing Organization Address City/State/[facility] Co de Phone Number [facility]ALTH[facility]ARE LAB [address] [place] [address] * XR Abdomen 1 View (10/09/2024 9:41 AM EDT) Only the most recent of2 resultswithin the time period is included. Anatomical Region Laterality Modality Body Digital Radiogra [...] Wesley Joe MD on 10/09/2024 9:54 AM Jj Carson MD IMG XR PROCEDURES Final Result * (ABNORMAL) CBC W/O Differential (10/09/2024 4:28 AM EDT) Only the most recent of3 resultswithin the time period is included. WBC Count 9.06 3.70 - 10.30 10*3/uL [...] EDT 10/09/2024 4:50 AM EDT Eva Barnes DOOR TO DOOR SALES REPRESENTATIVE, DNP LAB BLOOD ORDERABLE S Final Result [facility] [address] [place] [address] * (ABNORMAL) Basic metabolic panel (10/09/2024 4:28 AM EDT) Only the most recent of2 resultswithin the time period is included. Glucose, Plasma 286(H) 74 - 99 mg/dL [...] 10/09/2024 5:03 AM EDT us Eva Barnes DOOR TO DOOR SALES REPRESENTATIVE, DNP LAB BLOOD ORDERABLE S Final Result [facility] [address] [place] [address] * XR Gastrograffin Challenge (10/09/2024 1:17 AM [...] Joe MD on 10/09/2024 7:54 AM us Jj Carson MD IMG XR PROCEDURES Final Result * Phosphorus, Plasma (10/08/2024 4:59 AM EDT) Only the most recent of2 resultswithin the time period is included. Phosphorus, Plasma 3.8 2.5 - 4.5 mg/dL 10/08/2024 6:00 AM EDT [facility] Blood Venous blood specimen / Unknown Venipuncture / Unknown 10/08/2024 4:59 AM EDT 10/08/2024 5:16 AM EDT us Jj Carson MD LAB BLOOD ORDERABLES Final Res ult Performing Organization Address [facility] Co de Phone Number [facility] [address] [place] [address] * (ABNORMAL) Magnesium, Plasma (10/08/2024 4:59 AM EDT) Only the most recent of2 resultswithin the time period is included. Magnesium, Plasma 1.7(L) 1.9 - 2.4 mg/dL 10/08/2024 6:00 AM EDT [facility] Blood Venous blood specimen / Unknown Venipuncture / Unknown 10/08/2024 4:59 AM EDT 10/08/2024 5:16 AM EDT us Jj Carson MD LAB BLOOD ORDERABLES Final Res ult Performing Organization Address City/[facility]/ZIP Co de Phone Number [facility] [address] [place] [address] * (ABNORMAL) Hemoglobin A1c (10/08/2024 4:59 AM EDT) Only the most recent of2 resultswithin the time period is included. Hemoglobin A1c 7.6(H) <5.7 % 10/08/2024 11:37 [...] Adults <6.0% Children and Adolescents <7.5% Source: [place] [employer]. Standards of medical care in diabetes,2017. Diabetes Care.2017:40 (suppl 1):S1-S135. us Jj Carson MD LAB BLOOD ORDERABLES Final Res ult [facility] [address] [place] [address] * CT Abdomen Pelvis w IV Contrast (10/08/2024 4:44 AM EDT) Only the most recent of2 resultswithin the time period is included. Anatomical Region Laterality Modality Abdomen, Pelvis Computed [...] IMG CT PROCEDURES Final Resul t * EKG now - STAT (adult) (10/08/2024 12:55 AM EDT) Pathologist [facility] EKG DIAGNOSIS CLASS Abnormal MUSE ECG Ventricular Rate 85 BPM MUSE ECG Atrial Rate 85 BPM MUSE ECG OH Interval 168 ms MUSE ECG QRSD Interval 162 ms MUSE ECG QT Interval 442 ms MUSE ECG QTC Interval 525 ms MUSE ECG P Lares 16 degrees MUSE ECG R Lares -32 degrees MUSE ECG T Wave Lares 47 degrees MUSE ECG Diagnosis Normal sinus rhythm MUSE ECG Diagnosis Left axis deviation in the presence of LAFB MUSE ECG Diagnosis Right bundle branch block Bifascicular block MUSE ECG Diagnosis Minimal voltage criteria for LVH, may be normal variant ( R in aVL ) MUSE ECG Diagnosis Abnormal ECG MUSE ECG Diagnosis MUSE ECG Diagnosis Confirmed by Adarsh Pichardo ([id number]) on 10/08/2024 10:50:58 AM MUSE ECG 10/08/2024 12:5 5 AM EDT 10/08/2024 10:50 AM EDT Mickie Jefferson MD ECG ORDERABLES Final Result MUSE ECG * ED HIV 1/2 Antibody/Antigen Screen w/Reflex to HIV 1/2 Differentiation (10/08/2024 12:55 AM EDT) [facility] HIV 1 & 2 Antibody/Antigen Screen Non [...] sult [facility] [address] [place] [address] * Lactic acid, venous (10/08/2024 12:55 AM EDT) [facility] Lactate, Venous, Whole Blood 1.1 0.5 - 2.2 mmol/L LAB HEMATOLOGY METHOD 10/08/2024 1:10 AM EDT [facility] Blood Venous blood specimen / Unknown Venipuncture / Unknown 10/08/2024 12:55 AM EDT 10/08/2024 1:07 AM EDT us Mickie Jefferson MD LAB BLOOD ORDERABLES Final Re sult Performing Organization Address [facility]/ZIP Co de Phone Number [facility] [address] [place] [address] * Hepatitis C Antibody - ED (10/08/2024 12:55 AM EDT) Hepatitis C Antibody Negative Negative 10/08/2024 2:16 AM EDT [facility] Blood Venous blood specimen / Unknown Venipuncture / Unknown 10/08/2024 12:55 AM EDT 10/08/2024 1:11 AM EDT us Mickie Jefferson MD LAB BLOOD ORDERABLES Final Re sult Performing Organization Address [facility] de Phone Number [facility] [address] [place] [address] * (ABNORMAL) PT-INR (10/08/2024 12:55 AM EDT) Only the most recent of2 resultswithin the time period is included. Prothrombin Time 14.7(H) 12.0 - 14.3 sec 10/08/2024 1:27 AM EDT [facility] INR 1.2(H) 0.9 - 1.1 10/08/2024 1:27 AM EDT [facility] Blood [...] INR 2.5 to 3.5 Prevention of recurrent [place] INR 2.5 to 3.5 us Mickie Jefferson MD LAB BLOOD ORDERABLES Final Re sult [facility] [address] [place] [address] * (ABNORMAL) CBC w/diff (10/08/2024 12:55 AM [...] 12:55 AM EDT 10/08/2024 1:05 AM EDT [facility] - 10/08/2024 1:09 AM EDT Therapeutic decision making should be based on absolute values, rather than percentages. us iMckie Jefferson MD LAB BLOOD ORDERABLES Final Re sult [facility] [address] [place] [address] * Type and screen (10/08/2024 12:55 AM [...] ORDERABLE S Final Result Performing Organization Address [facility] de Phone Number BLOOD BANK [address] [place] [address], [place] * (ABNORMAL) CMP (10/08/2024 12:55 AM EDT) Only the most recent of2 resultswithin the time period is included. Glucose, Plasma 235(H) 74 - 99 mg/dL [...] sult [facility] [address] [place] [address] * CT OUTSIDE IMAGES (10/07/2024 7:58 PM EDT) Anatomical Region Laterality Modality Computed Tomogra phy 10/07/2024 7:58 PM EDT us External Provider IMG CT PROCEDURES Final Result * XR Chest 1 View (07/31/2024 9:42 [...] Tayo Escalante MD on 07/31/2024 9:46 AM us Farhad Castillo MD IMG XR PROCEDURES Final Re sult * FL Less than 1 Hour Intraoperative (07/31/2024 8:59 AM EDT) Narrative IMAGING - 07/31/2024 8:59 AM EDT Images were obtained for surgical purposes. See Farhad Castillo's surgical note in the patient's chart for the findings. Farhad Castillo MD IMG FLUOROSCOPY PROCEDURES Final Result IMAGING * OH AN ELECTIVE ENDOTRACHEAL AIRWAY, PB ANESTHESIA PLACEHOLDER [...] ANESTHESIA ORDERABLES Final Res ult * CT Chest w IV Contrast (07/23/2024 [...] Total DLP (Dose-Length Product): 2037.69 mGy.cm (accession [id number]), 2037.69 mGy.cm (accession [id number]) Please note: The reported value represents the [...] Total DLP (Dose-Length Product): 2037.69 mGy.cm (accession [id number]),2037.69 mGy.cm (accession [id number]) Please note: The reported valuerepresents the total [...] tail nodule on 3:104 that is unchanged fromApruary 2024 and did not show significant associated [...] Alyssia Dick MD on 07/23/2024 2:29 PM Result Kurt Castillo MD IMG CT PROCEDURES Final Re sult * (ABNORMAL) APTT (07/23/2024 10:36 AM EDT) aPTT 24(L) 25 - 35 sec LAB COAGULATION METHOD 07/23/2024 11:15 AM EDT [facility] Blood Venous blood specimen / Unknown Venipuncture / Unknown 07/23/2024 10:36 AM EDT 07/23/2024 10:54 AM EDT us Farhad Castillo MD LAB BLOOD ORDERABLES Final Result Performing Organization Address City/[facility]/ZIP Co de Phone Number [facility] [address] [place] [address] * Prealbumin, Plasma (07/23/2024 10:36 AM EDT) Prealbumin, Plasma 22.6 20.0 - 41.0 mg/dL 07/23/2024 11:29 AM EDT [facility] Blood Venous blood specimen / Unknown Venipuncture / Unknown 07/23/2024 10:36 AM EDT 07/23/2024 10:54 AM EDT us Farhad Castillo MD LAB BLOOD ORDERABLES Final Result [facility] [address] [place] [address] * (ABNORMAL) CEA, Serum (07/23/2024 10:36 AM [...] methods or kits cannot be used interchangeably. Farhad Castillo MD LAB BLOOD ORDERABLES Final Result [facility] [address] [place] [id number] * Surgical Pathology Consult (07/16/2024 1:13 PM EDT) Case Report Sugical Pathology Consult Case: [id number] Authorizing Provider: Farhad Castillo MD Collected: 07/16/2024 1313 Ordering Location: [facility] Lab Received: 07/16/2024 1313 Pathologist: Constance Murphy MD Specimen: Colon, [id number] 07/17/2024 1:08 PM EDT [facility] Final Diagnosis RIGHT COLON AND TERMINAL ILEUM, RIGHT HEMICOLECTOMY ([id number]; 11/09/2022): - 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 - TUMOR BUDDING SCORE: HIGH (10 OR GREATER). - NO TUMOR SEEN IN TWENTY ONE LYMPH NODES (0/21). 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 07/17/2024 1:08 PM EDT [facility] Clinical Information K35.890 - Other acute appendicitis without perforation or gangrene [ICD-10-CM] 07/17/2024 1:08 PM EDT [facility] Gross Description A. [id number] Received along with a corresponding pathology report from [facility] are 29 slides labeled outside case: [id number] collected on 11/09/2022. 07/17/2024 1:08 PM EDT [...] inal Result [facility] [address] [place] [address] from Last 3 Months Insurance [place] Advance Directives * Full Code (Latest Code Status on File) Date Activated Date Inactivated Comments 10/08/2024 4:28 AM 10/09/2024 5:43 PM Question Answer Comments I have reviewed the capacity from the link above and, if needed, have updated to appropriate status: Yes Care Teams Council Member Relationship Specialty Start Date End Date Tayo Jones MD [address] [place] [address] PCP - General 07/14/24
--- OUTSIDE RECORDS SUMMARY | 2024-10-13 09:47 | XMS_ITS | Encounter Summary ---
Author Organization Healthcare Address [address] [place] [address] Care Team Providers Care Entry Rep Name Role Phone Tayo Jones MD Primary Care Provider [phone] Encounter Details Date Type Department Care Team (Late Contact Info) Description 01/24/2023 Orders Only External Location [address] [place] [address] Sue Pope MD [address] [place] [address] [phone] Social History Tobacco Use Types Packs/Day Years [...] Info) Description 11/19/2024 8:40 AM EDT Appointment [facility] [address] [place] [address] 11/19/2024 11:15 AM EDT Office Visit [facility] Multidisciplinary Oncology Clinic [address] [place] [address] Farhad Castillo MD [address] [address] documented as of this encounter Procedures Procedure [...] on filedocumented in this encounter Care Teams Entry Rep Relationship Specialty Start Date End Date Tayo Jones MD [address] [id number] PCP - General 07/14/24 documented as of this encounter
--- OUTSIDE RECORDS SUMMARY | 2024-10-13 09:47 | XMS_ITS | Encounter Summary ---
Author Organization [facility] Address [address] [place] [address] Care Team Providers Care Structural Steel Fitter Name Role Phone Tayo Jones MD Primary Care Provider [phone] Encounter Details Date Type Department Care Team (Late Contact Info) Description 05/31/2023 Orders Only External Location [address] [place] [address] Provider, External Social History Tobacco Use Types [...] Description 11/19/2024 8:40 AM EDT Appointment [facility] [address] [place] [address] 11/19/2024 11:15 AM EDT Office Visit [facility] Multidisciplinary Oncology Clinic [address] [place] [address] Farhad Castillo MD [address] [address] documented as of this encounter Procedures Procedure [...] on filedocumented in this encounter Care Teams Structural Steel Fitter Relationship Specialty Start Date End Date Tayo Jones MD [address] [id number] PCP - General 07/14/24 documented as of this encounter
--- OUTSIDE RECORDS SUMMARY | 2024-10-13 09:47 | XMS_ITS | Encounter Summary ---
Author Organization Healthcare Address [address] [place] [address] Care Team Providers Care Public Employment Mediator Name Role Phone Tayo Jones MD Primary Care Provider [phone] Encounter Details Date Type Department Care Team (Late Contact Info) Description 06/15/2024 Orders Only External Location 800 [place] [address] Provider, External Social History Tobacco Use Types [...] 11/19/2024 8:40 AM EDT Appointment [facility] [address] [place] [address] 11/19/2024 11:15 AM EDT Office Visit [facility] Multidisciplinary Oncology Clinic 800 [place] [address] Farhad Castillo MD [address] [address] documented as of this encounter Procedures Procedure [...] on filedocumented in this encounter Care Teams Public Employment Mediator Relationship Specialty Start Date End Date Tayo Jones MD [address] [place] [address] PCP - General 07/14/24 documented as of this encounter
--- OUTSIDE RECORDS SUMMARY | 2024-10-13 09:47 | XMS_ITS | Encounter Summary ---
Author Organization [facility] Address [address] [place] [address] Care Team Providers Care Pointing Machine Operator Name Role Phone Tayo Jones MD Primary Care Provider [phone] Encounter Details Date Type Department Care Team (Latest Contact Info) Description 10/08/2024 Travel Social History Tobacco Use Types Packs/Day [...] any time in the past 12 m [facility], were you homeless or living in a jail (including now)? No 10/09/2024 Utilities Answer Date [...] as of this encounter Functional Status * Calculated C-SSRS Risk Score (Lifetime/Recent) Answer Date of Assessment Author No Risk Indicated 10/08/2024 12:30 AM EDT Rachael Slade, RN * Question Answer Date of Assessment Author 1. Wish to be (Past 1 Month) No 025 12:30 AM EDT Rachael Slade, RN 2. Non-Specific Active Suici sol Thoughts (Past 1 Month) No 10/08/2024 12:30 AM EDT Jhonatan Slade, RN 6. Suicidal Behavior (Lifetime) No 12:30 AM EDT Rachael Slade, RN documented as of this encounter Plan of Treatment Upcoming Encounters Date Type Department Care Team (Late st Contact Info) Description 11/19/2024 8:40 AM EDT Appointment [facility] [address] 2nd [place] [address] 11/19/2024 11:15 AM EDT Office Visit [facility] Multidisciplinary Oncology Clinic 800 [place] [address] Farhad Castillo MD [address] [phone] documented as of this encounter Visit Diagnoses Not on filedocumented in this encounter Additional Health Concerns Assessment Noted Time A fall risk assessment has been complete d for the patient 07/23/2024 8:54 AM EDT A Body Mass Index follow-up plan has been documented for the patient 10/09/2024 3:15 PM EDT documented as of this encounter Care Teams Pointing Machine Operator Relationship Specialty Start Date End Date Tayo Jones MD [address] [place] [address] PCP - General 07/14/24 documented as of this encounter
--- OUTSIDE RECORDS SUMMARY | 2024-10-13 09:47 | XMS_ITS | Encounter Summary ---
Author Organization Healthcare Address [address] [place] [address] Care Team Providers Care Windows Application Administrator Name Role Phone Tayo Jones MD Primary Care Provider [phone] Encounter Details Date Type Department Care Team (Late st Contact Info) Description 10/07/2024 Orders Only External Location 800 [place] [address] Provider, External Social History Tobacco Use Types [...] any time in the past 12 m [facility], were you homeless or living in a longterm (including now)? No 10/09/2024 Utilities Answer Date [...] Info) Description 11/19/2024 8:40 AM EDT Appointment [facility] [address]nd [place] [address] 11/19/2024 11:15 AM EDT Office Visit [facility] Multidisciplinary Oncology Clinic 800 [place] [address] Farhad Castillo MD [address] [place] [address] documented as of this encounter Procedures Procedure Name Priority Date/Time Associated Diagnosis Comments CT OUTSIDE IMAGES 10/07/2024 7:58 PM EDT documented in this encounter Results * CT OUTSIDE IMAGES (10/07/2024 7:58 PM [...] documented as of this encounter Care Teams Windows Application Administrator Relationship Specialty Start Date End Date Tayo Jones MD [address] [place] [address] PCP - General 07/14/24 documented as of this encounter
--- OUTSIDE RECORDS SUMMARY | 2024-10-13 09:47 | XMS_ITS | Encounter Summary ---
Author Organization [facility] Address [address] [place] [address] Care Team Providers Care Brick Baker Name Role Phone Tayo Jones MD Primary Care Provider [phone] Encounter Details Date Type Department Care Team (Late Contact Info) Description 05/06/2024 Orders Only External Location 800 [place] [address] Provider, External Social History Tobacco Use Types [...] Info) Description 11/19/2024 8:40 AM EDT Appointment [facility] [address]nd [place] [address] 11/19/2024 11:15 AM EDT Office Visit [facility] Multidisciplinary Oncology Clinic [address] [place] [address] Farhad Castillo MD [address] [phone] documented as of this encounter Procedures Procedure [...] on filedocumented in this encounter Care Teams Brick Baker Relationship Specialty Start Date End Date Tayo Jones MD [address] [place] [phone] PCP - General 07/14/24 documented as of this encounter
--- OUTSIDE RECORDS SUMMARY | 2024-10-13 09:47 | XMS_ITS | Encounter Summary ---
Author Organization Healthcare Address [address] [place] [address] Care Team Providers Care Retail Sales Clerk Name Role Phone Tayo Jones MD Primary Care Provider [phone] Encounter Details Date Type Department Care Team (Late Contact Info) Description 01/15/2023 Orders Only External Location 800 [place] [address] Sue Pope MD [address] [place] [phone] Social History Tobacco Use Types Packs/Day Years [...] EDT Appointment [facility] [address], [address]nd [place] [address] 11/19/2024 11:15 AM EDT Office Visit [facility] Multidisciplinary Oncology Clinic [address] [place] [address] Farhad Castillo MD [address] [address] documented as of this encounter Procedures Procedure [...] on filedocumented in this encounter Care Teams Retail Sales Clerk Relationship Specialty Start Date End Date Tayo Jones MD [address] [place] [phone] PCP - General 07/14/24 documented as of this encounter
[2024-10-13 09:55] LABS: Hematocrit 33.2 % (42.0-52.0); Hemoglobin 11.7 g/dL (14.1-18.0); Immature Granulocytes % 5.3 %; Mean Corpuscular HGB Conc 35.2 g/dL (31.8-35.4); Mean Corpuscular Hemoglobin 32.6 pg (27.0-31.2); Mean Corpuscular Volume 92.5 fl (80-94); Nucleated Red Blood Cells % 0 %; Platelet Count 314 K/mm3 (142-424); Red Blood Count 3.59 M/mm3 (4.60-6.20); Red Cell Distribution Width-SD 43.9 fL; White Blood Count 14.1 K/mm3 (4.8-10.8)
[2024-10-13 10:02] LABS: Albumin Level 3.6 g/dl (3.5-5.0); Chloride 98 mmol/L (98-107); Sodium 132 mmol/L (136-145)
[2024-10-13 10:03] LABS: Potassium 3.2 mmoL/L (3.5-5.1)
[2024-10-13 10:05] LABS: Alanine Aminotransferase 19 U/L (12-78); Albumin/Globulin Ratio 1.2 (1.1-1.8); Alkaline Phosphatase 81 U/L (38-126); Anion Gap 13.2 mEq/L (5-15); Aspartate Amino Transferase 37 U/L (17-59); Bilirubin,Total 0.3 mg/dl (0.2-1.3); Blood Urea Nitrogen 16 mg/dl (9-20); Carbon Dioxide 24 mmol/L (22.0-30.0); Creatinine,Serum 1.00 mg/dl (0.66-1.25); Estimated Glomerular Filt Rate 76 ml/min (>60); GFR (African American) 92 ML/MIN (>60); Globulin 2.9 g/dL (1.3-3.2); Total Protein,Serum 6.5 g/dl (6.3-8.2)
[2024-10-13 10:06] LABS: Calcium 8.4 mg/dl (8.4-10.2); Glucose 227 mg/dl (74-100); Magnesium 1.6 mg/dl (1.6-2.3)
[2024-10-13 10:31] LABS: RBC Morphology Normal; Total Cells Counted 100
[2024-10-13 10:45] VITALS: BP 141/73; PULSE 76; RESP 18; TEMP 36.8; O2SAT 100
[2024-10-13] MEDS: ONDANSETRON 4MG ODT 16 MG SL (10:46)
[2024-10-13] MEDS: DEXAMETHASONE 4MG TABLET 12 MG PO (10:46)
[2024-10-13] MEDS: SODIUM CHLORIDE 0.9% 10ML FLUSH SYRINGE 10 ML IV (10:47)
[2024-10-13] MEDS: POTASSIUM CHLORIDE 20MEQ TAB 40 MEQ PO (10:47)
[2024-10-13 11:08] LABS: Magnesium 1.7 mg/dl (1.6-2.3)
[2024-10-13 11:18] VITALS: BP 133/72; PULSE 71; RESP 20; O2SAT 100
[2024-10-13] MEDS: DEXTROSE 5% IV (11:18)
[2024-10-13] MEDS: IRINOTECAN HCL IV (11:18)
[2024-10-13] MEDS: WATER IV (11:18)
[2024-10-13 11:48] VITALS: BP 138/79; PULSE 74; RESP 18; O2SAT 99
[2024-10-13 12:18] VITALS: BP 140/70; PULSE 76; RESP 18; O2SAT 99
[2024-10-13 13:05] VITALS: BP 144/77; PULSE 75; RESP 20; O2SAT 100
[2024-10-14 08:41] LABS: CEA 7.7 ng/mL (0.0-4.7)
== END 2024-10-13 13:05 | disposition home or self-care (01) ==
LOC: INF 09:44
PROVIDERS: PCP Family Medicine; Visit Provider Internal Medicine Medical Oncology
DX: C18.2 Malignant neoplasm of ascending colon (principal)
CPT/HCPCS: 80053; 82378; 83735; 85007; 85025; 85027; 96413; 96415; J1642; J7060; J8540; J9206; Q0162

== ENCOUNTER 2024-10-20 08:59 | Outpatient (CLI) | payer MEDICAID, SELFPAY ==
--- OUTSIDE RECORDS SUMMARY | 2024-10-08 00:10 | XMS_ITS | Encounter Summary ---
Author Organization [facility] Address [address] [id number] Care Team Providers Care Soda Fountain Operator Name Role Phone Tayo Jones MD Primary Care Provider [phone] Reason for Visit * Reason Comments Abdominal Pain * Auth/Cert (Routine) Specialty Diagnoses / Procedures Referred By Samia t Referred To Contact Diagnoses Bowel obstruction (CMS/HCC) Bowel Obstruction, hx of Colon Cancer Wilda Carson MD [address] [address] Phone: tel: fax: [facility] Emergency [facility] [address] [place] [address] Phone: tel: Referral ID Status Reason Start Date Expiration Date Visits Re quested Visits Authorized [id number] 1 1 Encounter Details Date Type Department Care Team (Latest Contact Info) Description 10/08/2024 12:10 AM EDT - 10/09/2024 3:38 PM EDT Hospital Encounter [facility] Emergency Department [address] [place] [address] Mickie Jefferson MD [address] [place] [address] Wilda Carson MD [address] [address] Small bowel obstruction (CMS/HCC) (Primary Dx); Abdominal pain, generalized Discharge Disposition: Home or Self Care Social [...] any time in the past 12 m [facility], were you homeless or living in a long-term (including now)? No 10/09/2024 Utilities Answer Date [...] No 025 12:30 AM EDT Rachael Slade, JAN 2. Non-Specific Active Suici sol Thoughts (Past [...] follow up your medical oncology team at [facility] Questions: Call the [facility] at [phone] during business hours on weekdays or call [facility]'s after hours at [phone] to speak with a resident consulting technical manager for Colorectal surgery after 5pm or on [...] Note Nayan Womack 59 y.o. male CSN: [id number] Admission: 10/08/2024 12:10 AM Primary Problem: Bowel obstruction (CMS/HCC) Primary Shank Stapler: Self/ Facility Assistance Available at Discharge: Availability of Care Givers (#Hours): 24 hours Discharge Facility/Level of Care Needs: Discharge Facility/Level of Care Needs: 3-Group Home Facility Patient's Choice of Community Agency(s): [facility] ([facility]) Patient/Family Anticipated Services at Transition: Patient/Family Anticipated Services at Transition: none DME/Equipment Needed after Discharge: Equipment Currently Used at Home: none Readmission Within the Last 30 Days: Readmission Within the Last 30 Days: no previous admission in last 30 days Medicare Documentation: Medicare Second Notice?: No (N/A -1 Day) Follow-up: Franky Kim PA [address] [place] [address] Discharge Transportation: Transportation Anticipated: family or friend will provide Transportation Home at Discharge: Family/Friend will Provide Follow Up Transport: Transportation Needed to Follow up Appoinments: Other(Comment) (Facility) Additional Comments: POC reviewed with primary team. Refer to primary team's discharge note for details. Per MD pt is medically ready to discharge today. Pt is a ltc resident at a [facility]. Dispo: [facility] Facility: [facility] Facility Address: [address] [place] [address] RN to call Report: [phone] DC summary Fax: SW Sent through [employer] Transport: Sister to transport Patient is in [...] (currently on chemo) who presented to the [facility] on 10/08/2024 from anOSH d/t a bowel obstruction. His oncology care is provided at [facility]. CT imaging on presentation with diffusely dilated [...] name and Address: Tayo Jones MD [address] [facility] [address] Referring provider name and address: Franky Kim PA [address] [facility] [address] [place] [address] Chief Concern, Brief History of Present Illness, and Hospital Course Nayan Womack is a 59 y.o. male with PMHx significant for moderately differentiated colon adenocarcinoma s/p R colectomy and adjuvant xeloda, loss to follow up, and recent representation with metastatic disease to the liver (currently on chemo) who presented to the [facility] on 10/08/2024 from [facility] d/t a bowel obstruction. His oncology care is provided at [facility]. CT imaging on presentation with diffusely dilated [...] Center 11/19/2024 8:[address] [facility] 11/19/2024 11:15 AM Farhad Castillo [...] from the original note were not included. [facility] Department of Surgery Division of Colorectal Surgery Surgery Progress Note 10/09/24 Nayan Womack Subjective Subjective: HPI Nayan Womack is a 59 y.o. male with PMHx significant for moderately differentiated colon adenocarcinoma s/p R colectomy and adjuvant xeloda, loss to follow up, and recent representation with metastatic disease to the liver currently at [facility](driven by Onc at [facility]) who presented to the [facility] on 10/08/2024 from an OSH d/t a [...] via nasal cannula. Reports that he feels muchbetter than when he came in to the hospital. NG output not recorded, a few 100 mL of thin output incanister. Denies nausea. GGT challenge with contrast in [...] liver currently at chemo(driven by Onc at [facility]) who presented to the [facility] on 10/08/2024 from an OSH d/t a bowel obstruction. WBC now normal, Creatinine 1.45 (1.26). Minimal thin NG output, we will remove today and try full liquids. Gastrografin challenge demonstrates contrast reaching the the descending colon, past the staple line. Plan: -remove NG -okay for full liquid diet -MIVF -AROBF -AM labs Edited by: Vlaeriy Britt DO at 10/09/2024 0913 Valeriy Britt [...] from the original note were not included. [facility] Department of Surgery Division of Colorectal [...] liver currently at chemo(driven by Onc at [facility]) who presented to the [facility] on 10/08/2024 from an OSH d/t a [...] History Administered Date(s) Administered Moderna COVID-19 Vaccine (Medical Physiologist) 12+ years 06/29/2020, 07/27/2020, 03/28/2021 Pfizer-BioNTech COVID-19 [...] liver currently at chemo(driven by Onc at [facility]) who presented to the [facility] on 10/08/2024 from an OSH d/t a [...] down and gluc 225 -f/u CT imaging -ssm rehab Dispo: Admit to scr CODE STATUS: full [...] Review Outcome: Ongoing, Progressing Flowsheets (Taken 10/09/2024 3254) Plan of Care Reviewed With: patient Goal: Patient-Specific Goal (Individualized) Outcome: Ongoing, Progressing Goal: Absence of Hospital-Acquired Illness or Injury Outcome: Ongoing, Progressing Intervention: Identify and Manage Fall Risk Flowsheets (Taken 10/09/2024826) Safety Promotion/Fall Prevention: assistive device/personal items within [facility] fall prevention program maintained safety round/check completed mobility aid in [facility] clutter-free environment maintained Intervention: Prevent Infection [...] Safety Promotion/Fall Prevention: assistive device/personal items within [facility] fall prevention program maintained safety round/check completed mobility aid in [facility] clutter-free environment maintained Intervention: Prevent Infection Flowsheets (Taken 10/09/2024826) Infection Prevention: hand hygiene promoted rest/sleep promoted Goal: Optimal Comfort and Wellbeing 10/09/20241536 by Michell Campa RN Outcome: Met 10/09/2024826 by Michell Campa RN Outcome: Ongoing, Progressing Goal: Readiness for Transition of Care 10/09/2024 1537 by Michell Campa RN Outcome: Met 10/09/2024 [...] and oriented to person, place, and time. Jerry Coma Scale Score: 15 ED Course & [...] 10/08/24427 Notify Provider Until discontinued Acknowledged DHIRAJ KELLY Hooper 10/08/24427 Intake and Output - Strict Per unit protocol Acknowledged DHIRAJ KELLY Hooper 10/08/24427 Insert peripheral IV Once Placed in And Linked Group Acknowledged SANDS KELLY Hooper 10/08/24427 Saline lock IV Once Placed in And Linked Group Acknowledged SANDS KELLY Hooper 10/08/24427 Once Canceled SANDYang KELLY Hooper 10/08/24427 Full code Continuous Acknowledged DHIRAJ KELLY Hooper 10/08/24427 NPO diet Diet effective now Acknowledged DHIRAJ KELLY Hooper 10/08/24427 Mobility Orders Until discontinued Acknowledged DHIRAJ KELLY Hooper 10/08/24427 Incentive spirometry Every 1 hour while awake Acknowledged DHIRAJ KELLY Sandie 10/08/24427 Nasogastric tube maintenance Connect to: Low continuous suction; Care Instructions: Do not adjust tube and notify provider for displacement Until discontinued Acknowledged DHIRAJ KELLY Hooper 10/08/24427 Sequential compression device Until discontinued Comments: SCDs must be in place and turned on EXCEPT when ACTIVELY ambulating. Acknowledged DHIRAJ KELLY Hooper 10/08/24427 Do Not Give Nicotine Replacement Until discontinued Acknowledged DHIRAJ KELLY Hooper 10/08/[address] Abdomen Pelvis w IV Contrast Once In process LEEANNE RAZA 10/08/24 0117 Once Provider: (Not yet assigned) Canceled RAZALEEANNE Yang 10/08/24 005 XR Abdomen 1 View Once Final result LEEANNE RAZA Yang 10/08/24 005 Hepatitis C Antibody - ED Once Final result LEEANNE RAZA Yang 10/08/24 005 ED Protocol - HIV 1/2 Antibody/Antigen Screen Once Final result RAZALEEANNE Yang 10/08/24 005 ED HIV 1/2 Antibody/Antigen Screen w/Reflex to HIV 1/2 Differentiation PROCEDURE ONCE Final result RAZACALIXTOROD Soria 10/08/24 0050 CMP STAT Final result LEEANNE RAZA Yang 10/08/24 005 Magnesium STAT Final result RAZALEEANNE Yang 10/08/24 005 Phosphorus STAT Final result RAZACALIXTOROD Soria 10/08/24 005 Lactic acid, venous STAT Final result RAZALEEANNE Yang 10/08/24 005 CBC w/diff STAT Final result RAZALEEANNE Yang 10/08/24 005 PT-INR STAT Final result RAZALEEANNE Yang 10/08/24 005 EKG now - STAT (adult) Once Preliminary result TARA LEEANNE Soria 10/08/24 005 Type and screen Start now Final result LEEANNE RAZA ED Course as of 10/08/24 0516 Zabrina Oct 08, 2024 005 Upon arrival, patient [...] None Disposition Admit Admitting/Attending Physician: WILDA CARSON [[id number]] Provider Care Team: MEIR MANZANARES COLORECTAL SURGERY [...] Info) Description 11/19/2024 8:40 AM EDT Appointment [facility] [address] [place] [address] 11/19/2024 11:15 AM EDT Office Visit [facility] Multidisciplinary Oncology Clinic [address] [place] [address] Farhad Castillo MD [address] [phone] documented as of this encounter Procedures Procedure Name Priority Date/Time Associated Diagnosis Comments POCT GLUCOSE METER UNSOLICITED RESULTS Routine 10/09/2024 12:08 PM EDT XR ABDOMEN 1 VIEW Routine 10/09/2024 9:4 1 AM EDT POCT GLUCOSE METER UNSOLICITED RESULTS Routine 10/09/2024 5:47 AM EDT CBC W/O DIFFERENTIAL Routine 10/09/2024 4:28 AM EDT BASIC METABOLIC PANEL, PLASMA Routine 10/09/2024 4:28 AM EDT XR GASTROGRAFFIN CHALLENGE Timed 10/09/2024 1:17 AM EDT POCT [...] - 99 mg/dL 10/09/2024 12:12 PM EDT [facility] Comment:Accuracy of a glucos [...] for testing. Comment 10/09/2024 12:12 PM EDT [facility] Tenoner Operator ID Alyx, Julia 025 12:12 PM EDT [facility] LAB Device ID [id number] 10/09/2024 12:12 PM EDT [facility] Specimen Type POC Capillary 10/09/2024 12:12 PM EDT [facility] Blood Capillary blood specimen / Unknown 10/09/2024 12:08 PM EDT 10/09/2024 12:12 PM EDT Wilda Carson MD LAB POINT OF CARE TE ST DOCKED DEVICE UNSOLICITED RESULTS Final Result Performing Organization Address City/State/[facility] Co de Phone Number [facility]ALTH[facility]ARE [facility] [address] [place] [address] * XR Abdomen 1 View (10/09/2024 9:41 [...] Wesley Joe MD on 10/09/2024 9:54 AM Wilda Carson MD IMG XR PROCEDURES Final Result * (ABNORMAL) POCT glucose meter (10/09/2024 5:47 AM EDT) Pathologist [facility] POCT Glucose 270(H) 74 - 99 mg/dL [...] for testing. Comment 10/09/2024 5:49 AM EDT [facility] Tenoner Operator ID Flor Marks 10/09/2024 5:49 AM EDT [facility] LAB Device ID [id number] 10/09/2024 5:49 AM EDT [facility] Specimen Type POC Capillary 10/09/2024 5:49 AM EDT [facility] Blood Capillary blood specimen / Unknown 10/09/2024 5:47 AM EDT 10/09/2024 5:49 AM EDT Wilda Carson MD LAB POINT OF CARE TE ST DOCKED DEVICE UNSOLICITED RESULTS Final Result Performing Organization Address City/State/[facility] de Phone Number [facility]ALTH[facility]ARE [facility] [address] [place] [address] * (ABNORMAL) Basic metabolic panel (10/09/2024 4:28 AM EDT) Pathologist [facility] Glucose, Plasma 286(H) 74 - 99 mg/dL 10/09/2024 5:48 AM EDT [facility] BUN, Plasma 36(H) 8 - 23 mg/dL 10/09/2024 5:48 AM EDT [facility] Creatinine, Plasma 1.45(H) 0.70 - 1.20 mg/dL 10/09/2024 5:48 AM EDT [facility] BUN/Creatinine Ratio 25 10/09/2024 5:48 AM EDT [facility] Sodium, Plasma 131(L) 136 - 145 mmol/L 10/09/2024 5:48 AM EDT [facility] Potassium, Plasma 3.4(L) 3.6 - 4.9 mmol/L 10/09/2024 5:48 AM EDT [facility] Comment:Hemolyzed, result ma y be falsely increased. Chloride, Plasma 99 97 - 107 mmol/L 10/09/2024 5:48 AM EDT [facility] CO2, Plasma 17(L) 22 - 29 mmol/L 10/09/2024 5:48 AM EDT [facility] Anion Gap 15 6 - 16 mmol/L 10/09/2024 5:48 AM EDT [facility] Total Calcium, Plasma 8.8(L) 8.9 - 10.2 mg/dL 10/09/2024 5:48 AM EDT [facility] eGFRcr 55.2 mL/min/1.7 3m*2 10/09/2024 5:48 AM EDT [facility] Comment:Reported eGFRcr in m L/min/1.73m2 is based the CKD-EPI 2020 equation that does not use a race coefficient. Blood Venous blood specimen / Unknown Venipuncture / Unknown 10/09/2024 4:28 AM EDT 10/09/2024 5:03 AM EDT Eva Barnes DIRECTOR OF MATH, DNP LAB BLOOD ORDERABLE S Final Result [facility] [address] [place] [address] * (ABNORMAL) CBC W/O Differential (10/09/2024 4:28 AM EDT) WBC Count 9.06 3.70 - 10.30 10*3/uL LAB HEMATOLOGY METHOD 10/09/2024 4:52 AM EDT [facility] RBC Count 4.07(L) 4.60 - 6.10 10*6/uL LAB HEMATOLOGY METHOD 10/09/2024 4:52 AM EDT [facility] HGB 13.3(L) 13.7 - 17.5 g/dL LAB HEMATOLOGY METHOD 10/09/2024 4:52 AM EDT [facility] HCT 37.0(L) 40.0 - 51.0 % LAB HEMATOLOGY METHOD 10/09/2024 4:52 AM EDT [facility] Platelet Count 312 155 - 369 10*3/uL LAB HEMATOLOGY METHOD 10/09/2024 4:52 AM EDT [facility] MCV 91 79 - 98 fL LAB HEMATOLOGY METHOD 10/09/2024 4:52 AM EDT [facility] MCH 32.7(H) 26.0 - 32.0 pg LAB HEMATOLOGY METHOD 10/09/2024 4:52 AM EDT [facility] MCHC 35.9(H) 30.7 - 35.5 g/dL LAB HEMATOLOGY METHOD 10/09/2024 4:52 AM EDT [facility] RDW 13.5 11.5 - 14.5 % LAB HEMATOLOGY METHOD 10/09/2024 4:52 AM EDT [facility] MPV 9.1 8.8 - 12.5 fL LAB HEMATOLOGY METHOD 10/09/2024 4:52 AM EDT [facility] nRBC 0.0 <=0.0 per 100 WBCs LAB HEMATOLOGY METHOD 10/09/2024 4:52 AM EDT [facility] Blood Venous blood specimen / Unknown Venipuncture / Unknown 10/09/2024 4:28 AM EDT 10/09/2024 4:50 AM EDT Eva Barnes DIRECTOR OF MATH, DNP LAB BLOOD ORDERABLE S Final Result [facility] [address] [place] [address] * XR Gastrograffin Challenge (10/09/2024 1:17 AM [...] Wesley Joe MD on 10/09/2024 7:54 AM us Wilda Carson MD IMG XR PROCEDURES Final Result * (ABNORMAL) POCT glucose meter (10/08/2024 11:59 PM EDT) [facility] POCT Glucose 287(H) 74 - 99 mg/dL [...] Comment 10/09/2024 12:00 AM EDT [facility] Tenoner Operator ID Flor Marks 10/09/2024 12:00 AM EDT [facility] Device ID [id number] 10/09/2024 12:00 AM EDT [facility] Specimen Type POC Capillary 10/09/2024 12:00 AM EDT [facility] Blood Capillary blood specimen / Unknown 10/08/2024 11:59 PM EDT 10/09/2024 12:00 AM EDT us Wilad Carson MD LAB POINT OF CARE TE ST DOCKED DEVICE UNSOLICITED RESULTS Final Result Performing Organization Address City/State/[facility] Co de Phone Number [facility] [address] [place] [address] * (ABNORMAL) POCT glucose meter (10/08/2024 9:01 PM EDT) [facility] POCT Glucose 284(H) 74 - 99 mg/dL [...] 10/08/2024 9:03 PM EDT [facility] Tenoner Operator ID Isma Quiroz 025 9:03 PM EDT [facility] Device ID [id number] 10/08/2024 9:03 PM EDT [facility] Specimen Type POC Capillary 10/08/2024 9:03 PM EDT [facility] Blood Capillary blood specimen / Unknown 10/08/2024 9:01 PM EDT 10/08/2024 9:03 PM EDT Wilda Carson MD LAB POINT OF CARE TE ST DOCKED DEVICE UNSOLICITED RESULTS Final Result Performing Organization Address City/[facility] Co de Phone Number [facility] [address] [place] [address] * (ABNORMAL) POCT glucose meter (10/08/2024 5:08 PM EDT) POCT Glucose 202(H) 74 - 99 mg/dL 10/08/2024 5:10 PM EDT [facility] Comment:Accuracy of a glucos [...] Comment 10/08/2024 5:10 PM EDT [facility] Tenoner Operator ID Franchesca Herrera 5:10 PM EDT [facility] Device ID [id number] 10/08/2024 5:10 PM EDT [facility] Specimen Type POC Capillary 10/08/2024 5:10 PM EDT [facility] Blood Capillary blood specimen / Unknown 10/08/2024 5:08 PM EDT 10/08/2024 5:10 PM EDT us Wilda Carson MD LAB POINT OF CARE TE ST DOCKED DEVICE UNSOLICITED RESULTS Final Result Performing Organization Address City/[facility] Co de Phone Number [facility] [address] [place] [address] * (ABNORMAL) POCT glucose meter (10/08/2024 11:57 AM EDT) POCT Glucose 252(H) 74 - 99 mg/dL 10/08/2024 11:59 AM EDT [facility] Comment:Accuracy of a [...] Comment 10/08/2024 11:59 AM EDT [facility] Tenoner Operator ID Phuong Glass 025 11:59 AM EDT [facility] Device ID [id number] 10/08/2024 11:59 AM EDT [facility] Specimen Type POC Capillary 10/08/2024 11:59 AM EDT [facility] Blood Capillary blood specimen / Unknown 10/08/2024 11:57 AM EDT 10/08/2024 11:59 AM EDT Wilda Carson MD LAB POINT OF CARE TE ST DOCKED DEVICE UNSOLICITED RESULTS Final Result Performing Organization Address City/State/[facility] Co de Phone Number [facility] [address] [place] [address] * (ABNORMAL) POCT glucose meter (10/08/2024 7:55 AM EDT) [facility] POCT Glucose 248(H) 74 - 99 mg/dL [...] for testing. Comment 10/08/2024 7:57 AM EDT [facility] Tenoner Operator ID Phuong Glass 025 7:57 AM EDT [facility] Device ID [id number] 10/08/2024 7:57 AM EDT [facility] Specimen Type POC Capillary 10/08/2024 7:57 AM EDT [facility] Blood Capillary blood specimen / Unknown 10/08/2024 7:55 AM EDT 10/08/2024 7:57 AM EDT us Wilda Carson MD LAB POINT OF CARE TE ST DOCKED DEVICE UNSOLICITED RESULTS Final Result Performing Organization Address City/[facility] Co de Phone Number [facility] [address] [place] [address] * (ABNORMAL) POCT glucose meter (10/08/2024 5:40 AM EDT) POCT Glucose 255(H) 74 - 99 mg/dL 10/08/2024 5:42 AM EDT [facility] Comment:Accuracy of a [...] for testing. Comment 10/08/2024 5:42 AM EDT [facility] Tenoner Operator ID Bj Canales 10/08/2024 5:42 AM EDT [facility] Device ID [id number] 10/08/2024 5:42 AM EDT [facility] Specimen Type POC Capillary 10/08/2024 5:42 AM EDT [facility] Blood Capillary blood specimen / Unknown 10/08/2024 5:40 AM EDT 10/08/2024 5:42 AM EDT us Wilda Carson MD LAB POINT OF CARE TE ST DOCKED DEVICE UNSOLICITED RESULTS Final Result Performing Organization Address City/[facility]/ZIP Co de Phone Number [facility] [address] [place] [address] * (ABNORMAL) Hemoglobin A1c (10/08/2024 4:59 AM EDT) Hemoglobin A1c 7.6(H) <5.7 % 10/08/2024 11:37 AM EDT [facility] Blood Venous blood specimen / Unknown Venipuncture / Unknown 10/08/2024 4:59 AM EDT 10/08/2024 5:01 AM EDT Narrative [facility] - 10/08/2024 11:37 AM EDT HA1C Interpretive Data: Diagnosis of Diabetes: Diabetic > or = 6.5% Pre-diabetic 5.7 to 6.4% Non-diabetic < or = 5.6% Glycemic Targets for Type I and Type II Diabetics: Non- Adults <7.0% Adults <6.0% Children and Adolescents <7.5% Source: [place] [employer]. Standards of medical care in diabetes,2017. Diabetes Care.2017:40 (suppl 1):S1-S135. us Wilda Carson MD LAB BLOOD ORDERABLES Final Res ult Performing Organization Address City/[facility]/ZIP Co de Phone Number [facility] [address] [place] [address] * Phosphorus, Plasma (10/08/2024 4:59 AM EDT) Phosphorus, Plasma 3.8 2.5 - 4.5 mg/dL 10/08/2024 6:00 AM EDT [facility] Blood Venous blood specimen / Unknown Venipuncture / Unknown 10/08/2024 4:59 AM EDT 10/08/2024 5:16 AM EDT us Wilda Carson MD LAB BLOOD ORDERABLES Final Res ult Performing Organization Address [facility] Co de Phone Number [facility] [address] [place] [address] * (ABNORMAL) Magnesium, Plasma (10/08/2024 4:59 AM EDT) Magnesium, Plasma 1.7(L) 1.9 - 2.4 mg/dL 10/08/2024 6:00 AM EDT [facility] Blood Venous blood specimen / Unknown Venipuncture / Unknown 10/08/2024 4:59 AM EDT 10/08/2024 5:16 AM EDT us Wilda Carson MD LAB BLOOD ORDERABLES Final Res ult Performing Organization Address City/[facility] Co de Phone Number [facility] [address] [place] [address] * (ABNORMAL) CBC W/O Differential (10/08/2024 4:59 AM EDT) [facility] Signature WBC Count 9.53 3.70 - 10.30 10*3/uL LAB HEMATOLOGY METHOD 10/08/2024 5:04 AM EDT [facility] RBC Count 4.33(L) 4.60 - 6.10 10*6/uL LAB HEMATOLOGY METHOD 10/08/2024 5:04 AM EDT [facility] HGB 14.1 13.7 - 17.5 g/dL LAB HEMATOLOGY METHOD 10/08/2024 5:04 AM EDT [facility] HCT 39.4(L) 40.0 - 51.0 % LAB HEMATOLOGY METHOD 10/08/2024 5:04 AM EDT [facility] Platelet Count 279 155 - 369 10*3/uL LAB HEMATOLOGY METHOD 10/08/2024 5:04 AM EDT [facility] MCV 91 79 - 98 fL LAB HEMATOLOGY METHOD 10/08/2024 5:04 AM EDT [facility] MCH 32.6(H) 26.0 - 32.0 pg LAB HEMATOLOGY METHOD 10/08/2024 5:04 AM EDT [facility] MCHC 35.8(H) 30.7 - 35.5 g/dL LAB HEMATOLOGY METHOD 10/08/2024 5:04 AM EDT [facility] RDW 13.3 11.5 - 14.5 % LAB HEMATOLOGY METHOD 10/08/2024 5:04 AM EDT [facility] MPV 8.9 8.8 - 12.5 fL LAB HEMATOLOGY METHOD 10/08/2024 5:04 AM EDT [facility] nRBC 0.0 <=0.0 per 100 WBCs LAB HEMATOLOGY METHOD 10/08/2024 5:04 AM EDT [facility] Blood Venous blood specimen / Unknown Venipuncture / Unknown 10/08/2024 4:59 AM EDT 10/08/2024 5:01 AM EDT us Wilda Carson MD LAB BLOOD ORDERABLES Final Res ult [facility] [address] [place] [address] * (ABNORMAL) Basic Metabolic Panel, Plasma (10/08/2024 4:59 AM EDT) Glucose, Plasma 206(H) 74 - 99 mg/dL 10/08/2024 6:00 AM EDT [facility] BUN, Plasma 39(H) 8 - 23 mg/dL 10/08/2024 6:00 AM EDT [facility] Creatinine, Plasma 1.26(H) 0.70 - 1.20 mg/dL 10/08/2024 6:00 AM EDT [facility] BUN/Creatinine Ratio 31 10/08/2024 6:00 AM EDT [facility] Sodium, Plasma 125(L) 136 - 145 mmol/L 10/08/2024 6:00 AM EDT [facility] Potassium, Plasma 3.2(L) 3.6 - 4.9 mmol/L 10/08/2024 6:00 AM EDT [facility] Comment:Hemolyzed, result ma y be falsely increased. Chloride, Plasma 98 97 - 107 mmol/L 10/08/2024 6:00 AM EDT [facility] CO2, Plasma 14(L) 22 - 29 mmol/L 10/08/2024 6:00 AM EDT [facility] Anion Gap 13 6 - 16 mmol/L 10/08/2024 6:00 AM EDT [facility] Total Calcium, Plasma 7.6(L) 8.9 - 10.2 mg/dL 10/08/2024 6:00 AM EDT [facility] eGFRcr 65.3 mL/min/1.7 3m*2 10/08/2024 6:00 AM EDT [facility] Comment:Reported eGFRcr in m L/min/1.73m2 is based the CKD-EPI 2020 equation that does not use a race coefficient. Blood Venous blood specimen / Unknown Venipuncture / Unknown 10/08/2024 4:59 AM EDT 10/08/2024 5:16 AM EDT us Wilda Carson MD LAB BLOOD ORDERABLES Final Res ult [facility] [address] [place] [address] * CT Abdomen Pelvis w IV Contrast [...] ECG Atrial Rate 85 BPM MUSE ECG DE Interval 168 ms MUSE ECG QRSD Interval 162 ms MUSE ECG QT Interval 442 ms MUSE ECG QTC Interval 525 ms MUSE ECG P [place] 16 degrees MUSE ECG R [place] -32 degrees MUSE ECG T Wave [place] 47 degrees MUSE ECG Diagnosis Normal sinus rhythm MUSE ECG Diagnosis Left axis deviation in the presence of LAFB MUSE ECG Diagnosis Right bundle branch block Bifascicular block MUSE ECG Diagnosis Minimal voltage criteria for LVH, may be normal variant ( R in aVL ) MUSE ECG Diagnosis Abnormal ECG MUSE ECG Diagnosis MUSE ECG Diagnosis Confirmed by Adarsh Pichardo ([id number]) on 10/08/2024 10:50:58 AM MUSE ECG 10/08/2024 12:5 5 AM EDT 10/08/2024 10:50 AM EDT us Mickie Jefferson MD ECG ORDERABLES Final Result MUSE ECG * ED HIV 1/2 Antibody/Antigen Screen w/Reflex to HIV 1/2 Differentiation (10/08/2024 12:55 AM EDT) HIV 1 & 2 Antibody/Antigen Screen Non Reactive Non Reactive 10/08/2024 2:00 AM EDT [facility] Comment:Screening for HIV 1 & 2 antibodies, and P24 antigen is NONREACTIVE. No confirmatory testing is required. Blood Venous blood specimen / Unknown Venipuncture / Unknown 10/08/2024 12:55 AM EDT 10/08/2024 1:11 AM EDT us Mickie Jefferson MD LAB BLOOD ORDERABLES Final Re sult Performing Organization Address City/[facility]/ZIP Co de Phone Number [facility] [address] [place] [address] * Hepatitis C Antibody - ED (10/08/2024 12:55 AM EDT) Hepatitis C Antibody Negative Negative 10/08/2024 2:16 AM EDT [facility] Blood Venous blood specimen / Unknown Venipuncture / Unknown 10/08/2024 12:55 AM EDT 10/08/2024 1:11 AM EDT us Mickie Jefferson MD LAB BLOOD ORDERABLES Final Re sult [facility] [address] [place] [address] * Type and screen (10/08/2024 12:55 AM [...] ORDERABLE S Final Result Performing Organization Address [facility] de Phone Number BLOOD BANK [address] [place] [address], [place] * (ABNORMAL) PT-INR (10/08/2024 12:55 AM EDT) Prothrombin Time 14.7(H) 12.0 - 14.3 sec 10/08/2024 1:27 AM EDT [facility] INR 1.2(H) 0.9 - 1.1 10/08/2024 1:27 AM EDT [facility] Blood Venous blood specimen / Unknown Venipuncture / Unknown 10/08/2024 12:55 AM EDT 10/08/2024 1:05 AM EDT Narrative [facility] - 10/08/2024 1:27 AM EDT OPTIMAL INR RANGES FOR PATIENT ON ORAL ANTICOAGULANT THERAPY Prevention of venous thromboembolism INR 2.0 to 3.0 In patients with heart disease: Atrial fibrillation INR 2.0 to 3.0 Valvular heart disease INR 2.0 to 3.0 Tissue heart valves INR 2.0 to 3.0 Mechanical prosthetic valves INR 2.5 to 3.5 Prevention of recurrent [place] INR 2.5 to 3.5 us Mickie Jefferson MD LAB BLOOD ORDERABLES Final Re sult Performing Organization Address [facility] Co de Phone Number [facility] [address] [place] [address] * (ABNORMAL) CBC w/diff (10/08/2024 12:55 AM EDT) WBC Count 11.32(H) 3.70 - 10.30 10*3/uL LAB HEMATOLOGY METHOD 10/08/2024 1:09 AM EDT [facility] RBC Count 4.20(L) 4.60 - 6.10 10*6/uL LAB HEMATOLOGY METHOD 10/08/2024 1:09 AM EDT [facility] HGB 13.9 13.7 - 17.5 g/dL LAB HEMATOLOGY METHOD 10/08/2024 1:09 AM EDT [facility] HCT 38.0(L) 40.0 - 51.0 % LAB HEMATOLOGY METHOD 10/08/2024 1:09 AM EDT [facility] Platelet Count 293 155 - 369 10*3/uL LAB HEMATOLOGY METHOD 10/08/2024 1:09 AM EDT [facility] MCV 91 79 - 98 fL LAB HEMATOLOGY METHOD 10/08/2024 1:09 AM EDT [facility] MCH 33.1(H) 26.0 - 32.0 pg LAB HEMATOLOGY METHOD 10/08/2024 1:09 AM EDT [facility] MCHC 36.6(H) 30.7 - 35.5 g/dL LAB HEMATOLOGY METHOD 10/08/2024 1:09 AM EDT [facility] RDW 13.5 11.5 - 14.5 % LAB HEMATOLOGY METHOD 10/08/2024 1:09 AM EDT [facility] MPV 10.0 8.8 - 12.5 fL LAB HEMATOLOGY METHOD 10/08/2024 1:09 AM EDT [facility] nRBC 0.0 <=0.0 per 100 WBCs LAB HEMATOLOGY METHOD 10/08/2024 1:09 AM EDT [facility] Differential Type Automated LAB HEMATOLOGY METHOD 10/08/2024 1:09 AM EDT [facility] Neutrophils % 70 % LAB HEMATOLOGY METHOD 10/08/2024 1:09 AM EDT [facility] Lymphocytes % 10 % LAB HEMATOLOGY METHOD 10/08/2024 1:09 AM EDT [facility] Monocytes % 18 % LAB HEMATOLOGY METHOD 10/08/2024 1:09 AM EDT [facility] Eosinophils % 0 % LAB HEMATOLOGY METHOD 10/08/2024 1:09 AM EDT [facility] Basophils % 1 % LAB HEMATOLOGY METHOD 10/08/2024 1:09 AM EDT [facility] Immature Granulocytes % 1 % LAB HEMATOLOGY METHOD 10/08/2024 1:09 AM EDT [facility] Neutrophils Absolute 7.97(H) 1.60 - 6.10 10*3/uL LAB HEMATOLOGY METHOD 10/08/2024 1:09 AM EDT [facility] Lymphocytes Absolute 1.17(L) 1.20 - 3.90 10*3/uL LAB HEMATOLOGY METHOD 10/08/2024 1:09 AM EDT [facility] Monocytes Absolute 2.01(H) 0.30 - 0.90 10*3/uL LAB HEMATOLOGY METHOD 10/08/2024 1:09 AM EDT [facility] Eosinophils Absolute 0.02 0.00 - 0.50 10*3/uL LAB HEMATOLOGY METHOD 10/08/2024 1:09 AM EDT [facility] Basophils Absolute 0.07 0.00 - 0.10 10*3/uL LAB HEMATOLOGY METHOD 10/08/2024 1:09 AM EDT [facility] Immature Granulocytes Absolute 0.08(H) 0.00 - 0.06 10*3/uL LAB HEMATOLOGY METHOD 10/08/2024 1:09 AM EDT [facility] Blood Venous blood specimen / Unknown Venipuncture / Unknown 10/08/2024 12:55 AM EDT 10/08/2024 1:05 AM EDT Narrative [facility] - 10/08/2024 1:09 AM EDT Therapeutic decision making should be based on absolute values, rather than percentages. us Mickie Jefferson MD LAB BLOOD ORDERABLES Final Re sult [facility] [address] [place] [address] * Lactic acid, venous (10/08/2024 12:55 AM EDT) Lactate, Venous, Whole Blood 1.1 0.5 - 2.2 mmol/L LAB HEMATOLOGY METHOD 10/08/2024 1:10 AM EDT [facility] Blood Venous blood specimen / Unknown Venipuncture / Unknown 10/08/2024 12:55 AM EDT 10/08/2024 1:07 AM EDT us Mickie Jefferson MD LAB BLOOD ORDERABLES Final Re sult Performing Organization Address City/[facility]/ZIP Co de Phone Number [facility] [address] [place] [address] * (ABNORMAL) Phosphorus (10/08/2024 12:55 AM EDT) Phosphorus, Plasma 4.6(H) 2.5 - 4.5 mg/dL 10/08/2024 1:37 AM EDT [facility] Blood Venous blood specimen / Unknown Venipuncture / Unknown 10/08/2024 12:55 AM EDT 10/08/2024 1:05 AM EDT us Mickie Jefferson MD LAB BLOOD ORDERABLES Final Re sult Performing Organization Address [facility] [place] [address] * Magnesium (10/08/2024 12:55 AM EDT) Magnesium, Plasma 1.9 1.9 - 2.4 mg/dL 10/08/2024 1:37 AM EDT [facility] Blood Venous blood specimen / Unknown Venipuncture / Unknown 10/08/2024 12:55 AM EDT 10/08/2024 1:05 AM EDT us Mickie Jefferson MD LAB BLOOD ORDERABLES Final Re sult Performing Organization Address [facility] Co de Phone Number [facility] [address] [place] [address] * (ABNORMAL) CMP (10/08/2024 12:55 AM EDT) Glucose, Plasma 235(H) 74 - 99 mg/dL 10/08/2024 1:37 AM EDT [facility] BUN, Plasma 44(H) 8 - 23 mg/dL 10/08/2024 1:37 AM EDT [facility] Creatinine, Plasma 1.52(H) 0.70 - 1.20 mg/dL 10/08/2024 1:37 AM EDT [facility] BUN/Creatinine Ratio 29 10/08/2024 1:37 AM EDT [facility] Sodium, Plasma 125(L) 136 - 145 mmol/L 10/08/2024 1:37 AM EDT [facility] Potassium, Plasma 3.8 3.6 - 4.9 mmol/L 10/08/2024 1:37 AM EDT [facility] Chloride, Plasma 93(L) 97 - 107 mmol/L 10/08/2024 1:37 AM EDT [facility] CO2, Plasma 14(L) 22 - 29 mmol/L 10/08/2024 1:37 AM EDT [facility] Anion Gap 18(H) 6 - 16 mmol/L 10/08/2024 1:37 AM EDT [facility] Total Calcium, Plasma 9.2 8.9 - 10.2 mg/dL 10/08/2024 1:37 AM EDT [facility] Total Protein 7.3 6.3 - 7.9 g/dL 10/08/2024 1:37 AM EDT [facility] Albumin, Plasma 3.9 3.5 - 5.2 g/dL 10/08/2024 1:37 AM EDT [facility] AST, Plasma 24 10 - 50 U/L 10/08/2024 1:37 AM EDT [facility] Comment:Hemolyzed, result ma y be falsely increased. ALT, Plasma 12 10 - 50 U/L 10/08/2024 1:37 AM EDT [facility] Alkaline Phosphatase, Plasma 89 40 - 115 U/L 10/08/2024 1:37 AM EDT [facility] Total Bilirubin, Plasma 0.8 0.2 - 1.1 mg/dL 10/08/2024 1:37 AM EDT [facility] eGFRcr 52.1 mL/min/1.7 3m*2 10/08/2024 1:37 AM EDT [facility] Comment:Reported eGFRcr in m L/min/1.73m2 is based the CKD-EPI 2020 equation that does not use a race coefficient. Blood Venous blood specimen / Unknown Venipuncture / Unknown 10/08/2024 12:55 AM EDT 10/08/2024 1:05 AM EDT us Mickie Jefferson MD LAB BLOOD ORDERABLES Final Re sult [facility] [address] [place] [address] documented in this encounter Visit Diagnoses Diagnosis [...] Every 6 hours scheduled, First dose on Zabrina 10/08/24 at 0600, Until Discontinued, Routine Given 10/09/2024 [...] hours PRN, Starting on Zabrina 10/08/24 at 0642, Until Sat10/09/24 at 1738, Routine, nausea, vomiting sodium chloride 0.9 % flush 10 mL 10 mL, Intravenous, Every 12 hours, First dose on Zabrina 10/08/24 at 0430, Until Discontinued, Routine Given 10/09/2024 [...] Discontinued, Routine 0559 (Given - Provider: Rachael Slade RN)1214 (Given - Provider: Franchesca Herrera RN)1755 (Given - Provider: Franchesca Herrera RN) 0031 (Given - Provider: Jimbo Leavitt)0552 (Given - Provider: Jimbo Leavitt) iohexol (OMNIPaque) 300 MG/ML injection 100 mL [...] Herrera RN) 0950 (Given - Provider: Michell Campa RN) piperacillin-tazobactam (Zosyn) 4.5 g in sodium chloride [...] Provider: Jimbo Leavitt)0741 (Stopped - Provider: Michell Campa RN)0949 (New Bag - Provider: Michell Campa RN)1514 (Stopped - Provider: Michell Campa, JAN) potassium chloride IVPB 10 mEq 10 mEq, Intravenous, Every 1 hour, 6 doses, First dose on Sat10/09/24 at 0630, Last dose on Sat10/09/24 at 1130, Routine 0648 (New Bag - Prov ider: Jimbo Leavitt)0729 (Stopped - Provider: Michell Campa RN)0745 (New Bag - Provider: Michell Campa, JAN)0829 (Stopped - Provider: Michell Campa, JAN)0840 (New Bag - Provider: Michell Campa, JAN)0929 (Stopped - Provider: Michell Campa, RN)0930 (New Bag - Provider: Michell Campa, JAN)1029 (Stopped - Provider: Michell Campa RN)1030 (New Bag - Provider: Michell Campa, JAN)1130 (Due)1230 (Stopped - Provider: Michell Campa, RN)1514 (Stopped - Provider: Michell Campa RN) [...] RN) 0948 (Rate/Dose Change - Provider: Michell Campa, JAN)1513 (Stopped - Provider: Michell Campa, RN) PRN Medication Order 10/07/2024 10/08/2024 10/09/2024 [...] documented as of this encounter Care Teams [employer] Operator Relationship Specialty Start Date End Date Tayo Jones MD [address] [place] [address] PCP - General 07/14/24 documented as of this encounter
--- OUTSIDE RECORDS SUMMARY | 2024-10-20 09:02 | XMS_ITS | Encounter Summary ---
Author Organization Healthcare Address [address] [place] [address] Care Team Providers Care Dip Stand Loader Name Role Phone Tayo Jones MD Primary Care Provider [phone] Encounter Details Date Type Department Care Team (Late st Contact Info) Description 07/27/2024 Telephone [facility] [address] [place] [address] Farhad Castillo MD [address] [address] Social History Tobacco Use Types Packs/Day Years [...] optimal time of day to reach caller: [phone] ext [phone] Note: Please do not reply [...] Info) Description 11/19/2024 8:40 AM EDT Appointment [facility] [address], [address]nd [place] [address] 11/19/2024 11:15 AM EDT Office Visit [facility] Multidisciplinary Oncology Clinic [address] [place] [address] Farhad Castillo MD [address] [address] documented as of this encounter Visit Diagnoses Not on filedocumented in this encounter Additional Health Concerns Assessment Noted Time A fall risk assessment has been complete d for the patient 07/23/2024 8:54 AM EDT A Body Mass Index follow-up plan has been documented for the patient 07/24/2024 8:25 AM EDT documented as of this encounter Care Teams Dip Stand Loader Relationship Specialty Start Date End Date Tayo Jones MD [address] [place] [address] PCP - General 07/14/24 documented as of this encounter
--- OUTSIDE RECORDS SUMMARY | 2024-10-20 09:02 | XMS_ITS | Encounter Summary ---
Author Organization Healthcare Address [address] [id number] Care Team Providers Care Capsule Machine Operator Name Role Phone Tayo Jones MD Primary Care Provider [phone] Encounter Details Date Type Department Care Team (Late st Contact Info) Description 07/27/2024 Telephone [facility] 800 [place] [address] Farhad Castillo MD [address] [address] Social History Tobacco Use Types Packs/Day Years [...] Message Reason for Call: Kim calling from [facility] to speak to Audrey. Best contact number and optimal time of day to reach caller: [phone] ext [phone] Note: Please do not reply to this message. Follow-up communication and further actions as a result of this message need to be communicated with the patient directly, if the patient is not active onMyChart. If the patient is active on MyChart, they will receive notification of the communication/outcome via [email or web address]. documented in this encounter Plan of Treatment Upcoming Encounters Date Type Department Care Team (Late st Contact Info) Description 11/19/2024 8:40 AM EDT Appointment [facility] [address], [address]nd [place] [address] 11/19/2024 11:15 AM EDT Office Visit [facility] Multidisciplinary Oncology Clinic [address] [place] [address] Farhad Castillo MD [address] [phone] documented as of this encounter Visit Diagnoses Not on filedocumented in this encounter Additional Health Concerns Assessment Noted Time A fall risk assessment has been complete d for the patient 07/23/2024 8:54 AM EDT A Body Mass Index follow-up plan has been documented for the patient 07/24/2024 8:25 AM EDT documented as of this encounter Care Teams Capsule Machine Operator Relationship Specialty Start Date End Date Tayo Jones MD [address] [place] [address] PCP - General 07/14/24 documented as of this encounter
--- OUTSIDE RECORDS SUMMARY | 2024-10-20 09:03 | XMS_ITS | Encounter Summary ---
Author Organization [facility] Address [address] [place] [address] Care Team Providers Care Interior Mechanic Name Role Phone Tayo Jones MD Primary Care Provider [phone] Encounter Details Date Type Department Care Team (Late Contact Info) Description 07/16/2024 Lab Requisition [facility] [address] [place] [address] Farhad Castillo MD [address] [address] Other acute appendicitis without perforation [...] Info) Description 11/19/2024 8:40 AM EDT Appointment [facility] [address]nd [place] [address] 11/19/2024 11:15 AM EDT Office Visit [facility] Multidisciplinary Oncology Clinic [address] [place] [address] Farhad Castillo MD [address] [address] documented as of this encounter Procedures Procedure Name Priority Date/Time Associated Diagnosis Comments SURGICAL PATHOLOGY CONSULT Routine 07/16/2024 1:13 PM EDT Other acute appendicitis without perforation or gangrene documented in this encounter Results * Surgical Pathology Consult (07/16/2024 1:13 PM EDT) Case Report Sugical Pathology Consult Case: [id number] Authorizing Provider: Farhad Castillo MD Collected: 07/16/2024 1313 Ordering Location: [facility] Lab Received: 07/16/2024 1313 Pathologist: Constance Murphy MD Specimen: Colon, [id number] 07/17/2024 1:08 PM EDT [facility] Final Diagnosis RIGHT COLON AND TERMINAL ILEUM, RIGHT HEMICOLECTOMY ([id number]; 11/09/2022): - 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 - TUMOR BUDDING SCORE: HIGH (10 OR GREATER). - NO TUMOR SEEN IN TWENTY ONE LYMPH NODES (0/21). 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 07/17/2024 1:08 PM EDT [facility] Clinical Information K35.890 - Other acute appendicitis without perforation or gangrene [ICD-10-CM] 07/17/2024 1:08 PM EDT [facility] Gross Description A. [id number] Received along with a corresponding pathology report from [facility] are 29 slides labeled outside case: [id number] collected on 11/09/2022. 07/17/2024 1:08 PM EDT [facility] Note: A resident was involved in the service. I attest I examined the relevant preparations for the specimens and confirmed the diagnosis or interpretation. 07/17/2024 1:08 PM EDT [facility] Tissue Colon structure / Unknown 07/16/2024 1:13 PM EDT 07/16/2024 1:13 PM EDT us Farhad Castillo MD LAB PATHOLOGY ORDERABLES F inal Result [facility] [address] [place] [address] documented in this encounter Visit Diagnoses Diagnosis Other acute appendicitis without perforation or gangrene documented in this encounter Care Teams Interior Mechanic Relationship Specialty Start Date End Date Tayo Jones MD [address] [place] [address] PCP - General 07/14/24 documented as of this encounter
--- OUTSIDE RECORDS SUMMARY | 2024-10-20 09:03 | XMS_ITS | Encounter Summary ---
Author Organization Healthcare Address [address] [place] [address] Care Team Providers Care Clay Molder Name Role Phone Tayo Jones MD Primary Care Provider [phone] Encounter Details Date Type Department Care Team ([facility] st Contact Info) Description 07/23/2024 Telephone [facility] [address] [place] [address] Farhad Castillo MD [address] [phone] Social History Tobacco Use Types Packs/Day Years [...] Message Reason for Call: Jamee calling from [facility] for [place] I was able to transfer her call to [facility] Best contact number and optimal time of day to reach caller: Note: Please do not reply to this message. Follow-up communication and further actions as a result of this message need to be communicated with the patient directly, if the patient is not active onMyChart. If the patient is active on MyChart, they will receive notification of the communication/outcome via [employer]. documented in this encounter Plan of Treatment Upcoming Encounters Date Type Department Care Team (Late st Contact Info) Description 11/19/2024 8:40 AM EDT Appointment [facility] [address], [address]nd [place] [address] 11/19/2024 11:15 AM EDT Office Visit [facility] Multidisciplinary Oncology Clinic [address] [place] [address] Farhad Castillo MD [address] [address] documented as of this encounter Visit Diagnoses Not on filedocumented in this encounter Additional Health Concerns Assessment Noted Time A fall risk assessment has been complete d for the patient 07/23/2024 8:54 AM EDT A Body Mass Index follow-up plan has been documented for the patient 07/24/2024 8:25 AM EDT documented as of this encounter Care Teams Clay Molder Relationship Specialty Start Date End Date Tayo Jones MD [address] [place] [address] PCP - General 07/14/24 documented as of this encounter
--- OUTSIDE RECORDS SUMMARY | 2024-10-20 09:03 | XMS_ITS | Encounter Summary ---
Author Organization [facility] Address [address] [place] [address] Care Team Providers Care Inweaver Name Role Phone Tayo Jones MD Primary Care Provider [phone] Encounter Details Date Type Department Care Team [...] were you homeless or living in a snf (including now)? No 10/09/2024 Utilities Answer Date [...] EDT Appointment [facility] [address], [address]nd [place] [address] 11/19/2024 11:15 AM EDT Office Visit [facility] Multidisciplinary Oncology Clinic [address] [place] [address] Farhad Castillo MD [address] [address] documented as of this encounter Visit Diagnoses Not on filedocumented in this encounter Additional Health Concerns Assessment Noted Time A fall risk assessment has been complete d for the patient 07/23/2024 8:54 AM EDT A Body Mass Index follow-up plan has been documented for the patient 10/09/2024 3:15 PM EDT documented as of this encounter Care Teams Inweaver Relationship Specialty Start Date End Date Tayo Jones MD [address] [place] [address] PCP - General 07/14/24 documented as of this encounter
--- OUTSIDE RECORDS SUMMARY | 2024-10-20 09:03 | XMS_ITS | Encounter Summary ---
Author Organization Healthcare Address [address] [place] [address] Care Team Providers Care Health Education Coordinator Name Role Phone Tayo Jones MD Primary Care Provider [phone] Encounter Details Date Type Department Care Team (Late Contact Info) Description 01/24/2023 Orders Only External Location [address] [place] [address] Sue Pope MD [address] [place] [address] [phone] Social History Tobacco Use Types Packs/Day Years [...] Info) Description 11/19/2024 8:40 AM EDT Appointment [facility] [address]nd [place] [address] 11/19/2024 11:15 AM EDT Office Visit [facility] Multidisciplinary Oncology Clinic [address] [place] [address] Farhad Castillo MD [address] [address] documented as of this encounter Procedures Procedure [...] on filedocumented in this encounter Care Teams Health Education Coordinator Relationship Specialty Start Date End Date Tayo Jones MD [address] [place] [phone] PCP - General 07/14/24 documented as of this encounter
--- OUTSIDE RECORDS SUMMARY | 2024-10-20 09:03 | XMS_ITS | Encounter Summary ---
Author Organization Healthcare Address [address] [place] [address] Care Team Providers Care Rn Family Name Role Phone Tayo Jones MD Primary Care Provider [phone] Encounter Details Date Type Department Care Team (Late Contact Info) Description 01/15/2023 Orders Only External Location [address] [place] [address] Sue Pope MD [address] [place] [address] [phone] Social History Tobacco Use Types Packs/Day Years [...] EDT Appointment [facility] [address]nd [place] [address] 11/19/2024 11:15 AM EDT Office Visit [facility] Multidisciplinary Oncology Clinic [address] [place] [address] Farhad Castillo MD [address] [address] documented as of this encounter Procedures Procedure [...] on filedocumented in this encounter Care Teams Rn Family Relationship Specialty Start Date End Date Tayo Jones MD [address] [place] [phone] PCP - General 07/14/24 documented as of this encounter
--- OUTSIDE RECORDS SUMMARY | 2024-10-20 09:03 | XMS_ITS | Encounter Summary ---
Author Organization [facility] Address [address] [place] [address] Care Team Providers Care Quality Systems Specialist Name Role Phone Tayo Jones MD Primary Care Provider [phone] Encounter Details Date Type Department Care Team (Late Contact Info) Description 02/18/2023 Orders Only External Location 800 [place] [address] Provider, External Social History Tobacco Use Types [...] Info) Description 11/19/2024 8:40 AM EDT Appointment [facility] [address] 2nd [place] [address] 11/19/2024 11:15 AM EDT Office Visit [facility] Multidisciplinary Oncology Clinic [address] [place] [address] Farhad Castillo MD [address] [phone] documented as of this encounter Procedures Procedure [...] on filedocumented in this encounter Care Teams Quality Systems Specialist Relationship Specialty Start Date End Date Tayo Jones MD [address] [place] [address] PCP - General 07/14/24 documented as of this encounter
--- OUTSIDE RECORDS SUMMARY | 2024-10-20 09:03 | XMS_ITS | Encounter Summary ---
Author Organization [facility] Address [address] [place] [address] Care Team Providers Care Professor Of Marketing Name Role Phone Tayo Jones MD Primary Care Provider [phone] Encounter Details Date Type Department Care Team (Late Contact Info) Description 05/06/2024 Orders Only External Location [address] [place] [address] Provider, External Social History Tobacco Use Types [...] Info) Description 11/19/2024 8:40 AM EDT Appointment [facility] [address]nd [place] [address] 11/19/2024 11:15 AM EDT Office Visit [facility] Multidisciplinary Oncology Clinic [address] [place] [address] Farhad Castillo MD [address] [address] documented as of this encounter Procedures Procedure [...] on filedocumented in this encounter Care Teams Professor Of Marketing Relationship Specialty Start Date End Date Tayo Jones MD [address] [place] [phone] PCP - General 07/14/24 documented as of this encounter
--- OUTSIDE RECORDS SUMMARY | 2024-10-20 09:03 | XMS_ITS | Encounter Summary ---
Author Organization [facility] Address [address] [place] [address] Care Team Providers Care Baker Biscuit Name Role Phone Tayo Jones MD Primary Care Provider [phone] Encounter Details Date Type Department Care Team (Late Contact Info) Description 05/31/2023 Orders Only External Location 800 [place] [address] Provider, External Social History Tobacco Use Types [...] Info) Description 11/19/2024 8:40 AM EDT Appointment [facility] [address]nd [place] [address] 11/19/2024 11:15 AM EDT Office Visit [facility] Multidisciplinary Oncology Clinic [address] [place] [address] Farhad Castillo MD [address] [address] documented as of this encounter Procedures Procedure [...] on filedocumented in this encounter Care Teams Baker Biscuit Relationship Specialty Start Date End Date Tayo Jones MD [address] [place] [phone] PCP - General 07/14/24 documented as of this encounter
--- OUTSIDE RECORDS SUMMARY | 2024-10-20 09:03 | XMS_ITS | Encounter Summary ---
Author Organization [facility] Address [address] [place] [address] Care Team Providers Care Curriculum And Instruction Director Name Role Phone Tayo Jones MD Primary Care Provider Encounter Details Date Type Department Care Team (Late Contact Info) Description 01/15/2023 Orders Only External Location 800 [place] [address] Provider, External Social History Tobacco Use Types [...] Info) Description 11/19/2024 8:40 AM EDT Appointment [facility] [address] [place] [address] 11/19/2024 11:15 AM EDT Office Visit [facility] Multidisciplinary Oncology Clinic [address] [place] [address] Farhad Castillo MD [address] [address] documented as of this encounter Procedures Procedure [...] on filedocumented in this encounter Care Teams Curriculum And Instruction Director Relationship Specialty Start Date End Date Tayo Jones MD [address] [place] [phone] PCP - General 07/14/24 documented as of this encounter
--- OUTSIDE RECORDS SUMMARY | 2024-10-20 09:03 | XMS_ITS | Encounter Summary ---
Author Organization Healthcare Address [address] [place] [address] Care Team Providers Care Fire Department Marine Engineer Name Role Phone Tayo Jones MD Primary Care Provider [phone] Encounter Details Date Type Department Care Team (Late Contact Info) Description 06/15/2024 Orders Only External Location [address] [place] [address] Provider, External Social History Tobacco Use Types [...] Info) Description 11/19/2024 8:40 AM EDT Appointment [facility] [address] [place] [address] 11/19/2024 11:15 AM EDT Office Visit [facility] Multidisciplinary Oncology Clinic [address] [place] [address] Farhad Castillo MD [address] [address] documented as of this encounter Procedures Procedure [...] on filedocumented in this encounter Care Teams Fire Department Marine Engineer Relationship Specialty Start Date End Date Tayo Jones MD [address] [place] [address] PCP - General 07/14/24 documented as of this encounter
--- OUTSIDE RECORDS SUMMARY | 2024-10-20 09:03 | XMS_ITS | Encounter Summary ---
Author Organization [facility] Address [address] [place] [address] Care Team Providers Care Test And Balance Engineer Name Role Phone Tayo Jones MD Primary Care Provider [phone] Encounter Details Date Type Department Care Team [...] time in the past 12 m [facility], were you homeless or living in a [facility] (including now)? No 10/09/2024 Utilities Answer Date [...] 11/19/2024 8:40 AM EDT Appointment [facility] [address] [place] [phone] 11/19/2024 11:15 AM EDT Office Visit [facility] Multidisciplinary Oncology Clinic [address] [place] [address] Farhad Castillo MD [address] [phone] documented as of this encounter Visit Diagnoses Not on filedocumented in this encounter Additional Health Concerns Assessment Noted Time A fall risk assessment has been complete d for the patient 07/23/2024 8:54 AM EDT A Body Mass Index follow-up plan has been documented for the patient 10/09/2024 3:15 PM EDT documented as of this encounter Care Teams Test And Balance Engineer Relationship Specialty Start Date End Date Tayo Jones MD [address] [place] [address] PCP - General 07/14/24 documented as of this encounter
--- OUTSIDE RECORDS SUMMARY | 2024-10-20 09:03 | XMS_ITS | Encounter Summary ---
Author Organization [facility] Address [address] [place] [address] Care Team Providers Care Automatic Gluing Machine Operator Name Role Phone Tayo Jones MD Primary Care Provider [phone] Encounter Details Date Type Department Care Team (Late Contact Info) Description 05/06/2024 Orders Only External Location [address] [place] [address] Provider, External Social History Tobacco Use Types [...] Description 11/19/2024 8:[address] [facility] [address] [place] [address] 11/19/2024 11:15 AM EDT Office Visit [facility] Multidisciplinary Oncology Clinic [address] [place] [address] Farhad Castillo MD [address] [phone] documented as of this encounter Procedures Procedure [...] on filedocumented in this encounter Care Teams Automatic Gluing Machine Operator Relationship Specialty Start Date End Date Tayo Jones MD [address] [place] [id number] PCP - General 07/14/24 documented as of this encounter
--- OUTSIDE RECORDS SUMMARY | 2024-10-20 09:03 | XMS_ITS | Encounter Summary ---
Author Organization Healthcare Address [address] [place] [address] Care Team Providers Care Western Felt Hat Blocker Name Role Phone Tayo Jones MD Primary Care Provider [phone] Encounter Details Date Type Department Care Team (Late st Contact Info) Description 10/07/2024 Orders Only External Location [address] [place] [address] Provider, External Social History Tobacco Use Types [...] Appointment [facility] [address] [place] [address] 11/19/2024 11:15 AM EDT Office Visit [facility] Multidisciplinary Oncology Clinic [address] [place] [address] Farhad Castillo MD [address] [place] [phone] documented as of this encounter Procedures Procedure [...] documented as of this encounter Care Teams Western Felt Hat Blocker Relationship Specialty Start Date End Date Tayo Jones MD [address] [place] [address] PCP - General 07/14/24 documented as of this encounter
--- OUTSIDE RECORDS SUMMARY | 2024-10-20 09:04 | XMS_ITS | Clinical Summary ---
Author Organization [facility] Address [address] [place] [address] Care Team Providers Care Retail Customer Service Representative Name Role Phone Jeremy Gil MD Unavailable Andres Alcantara DPM Unavailable Grant Fletcher MD Unavailable Niko Cueva MD Unavailable [phone] None, None Primary Care Provider UnavailGm Vigil DPM Unavailable [phone] Reina Byrd NP Unavailable Unavailable Allergies No known active allergies Medications Insulin Glargine (Lantus) 100 unit/mL (3 mL) Solostar INPNIndications :Type 2 diabetes mellitus with hyperglycemia, with long-term current use of insulin ([facility]) 16 Units by Subcutaneous route every [...] hyperglycemia, with long-term current use of insulin ([facility]) PVD (peripheral vascular disease) ([facility]) Other osteomyelitis of left foot Social [...] of 2) 2014 COVID-19 Vaccine ( - season) 2023 Depression Screening 04/15/2024 Influenza Vaccination (#1) 2024 RSV Vaccines (1 - 1-dose 75+ series) 2039 Insurance MEDICAID [place] Advance Directives For more information, please contact: [phone] * Full Code (Latest Code Status on File) Date Activated Date Inactivated Comments 08/19/2020 3:05 AM No automated ch est compression devices for VAD Patients Care Teams Retail Customer Service Representative Relationship Specialty Start Date End Date None, None [address] [place] [address] PCP - General 10/26/20 Jeremy Gil MD [address] [facility] [address] [place] [address] Internal Medicine 08/19/20 Andres Alcantara DPM [address] [facility]. [address] [place] [address] Resident Podiatry 08/22/20 Grant Fletcher MD [address] [place] [address] [address] [place] [address] Infectious Diseases 09/08/20 Niko Cueva MD [address] [place] [address] [address] [place] [address] Vascular Surgery 09/16/20 Gm Flor DPM [address] [place] [place] [address] [place] [address] Podiatry 11/01/20 Reina Byrd NP [address] [place] [address] [place] [address] Nurse Practitioner Vascular Surgery 11/30/20
--- OUTSIDE RECORDS SUMMARY | 2024-10-20 09:04 | XMS_ITS | Encounter Summary ---
Author Organization [facility] Address [address] [place] [address] Care Team Providers Care Excavator Backhoe Operator Name Role Phone Jeremy Gil MD Unavailable [phone] Andres Alcantara DPM Unavailable [phone] Grant Fletcher MD Unavailable Niko Cueva MD Unavailable [phone] None, None Primary Care Provider UnavailGm Vigil DPM Unavailable [phone] Reina Byrd NP Unavailable Unavailable Encounter Details Date Type Department Care Team (Late st Contact Info) Description 09/08/2020 Clinical Update [facility] Physicians - Infectious Diseases, [facility] [address] [place] [address] [phone] Grant Fletcher MD [address] [place] [address] [id number] Social History Tobacco Use Types Packs/Day Years [...] (09/07/2020) ALT 5 U/L Plasma Result [facility] Grant Fletcher MD CHEMISTRY ORDERABLES Final Re sult * ALKALINE PHOSPHATASE (09/07/2020) Alkaline Phosphatase 98 U/L Plasma Result [facility] Grant Fletcher MD CHEMISTRY ORDERABLES Final Re sult * ALBUMIN (09/07/2020) Albumin 2.6 Plasma Result [facility] Grant Fletcher MD CHEMISTRY ORDERABLES [...] on filedocumented in this encounter Care Teams Excavator Backhoe Operator Relationship Specialty Start Date End Date None, None [address] [place] [address] PCP - General 10/26/20 Jeremy Gil MD [address] [place] [address] [address] [place] [address] Internal Medicine 08/19/20 Andres Alcantara DPM [address] [facility]. [address] [place] [address] Resident Podiatry 08/22/20 Grant Fletcher MD [address] [facility] [address] [place] [address] Infectious Diseases 09/08/20 Niko Cueva MD [address] [facility] [address] [place] [address] Vascular Surgery 09/16/20 Gm Flor DPM [address] [facility] [place], [place] [id number] Podiatry 11/01/20 Reina Bryd NP [address] [facility] [place] [address] Nurse Practitioner Vascular Surgery 11/30/20 documented as of this encounter
--- OUTSIDE RECORDS SUMMARY | 2024-10-20 09:04 | XMS_ITS | Clinical Summary ---
Author Organization [facility] Address [address] [place] [address] Care Team Providers Care Heel Seat Filler Name Role Phone Tayo Jones MD Primary Care Provider [phone] Allergies No known active allergies Medications carvedilol [...] Hospital Encounter [facility] Emergency Department [address] [place] [address] Mickie Jefferson MD Hourigan, Jon S, MD Small bowel obstruction (CMS/HCC) (Primary Dx); Abdominal pain, generalized Discharge Disposition: Home or Self Care 10/08/2024 Travel 10/07/2024 Orders Only External Location [address] [place] [address] Provider, External 08/03/2024 Orders Only [facility] [address] [place] [address] Farhad Castillo MD Metastatic colon cancer to liver (CMS/HCC) (Primary Dx) 07/31/2024 7:30 AM EDT - 07/31/2024 9:00 AM EDT Surgery [facility] OPERATING ROOM [address] [place] [address] Farhad Castillo MD INSERTION, TUNNELED CENTRAL VENOUS DEVICE, WITH PORT [82019 (CPT )] 07/31/2024 7:29 AM EDT Anesthesia Event [facility] [address] [place] [address] Wilian Jefferson MD Latham, Jeremy J, MD 07/31/2024 5:40 AM EDT - 07/31/2024 10:10 AM EDT Hospital Encounter [facility] OPERATING [facility] [address] [place] [address] Farhad Castillo MD Metastatic colon cancer to liver (CMS/HCC) [C18.9, C78.7] (Primary Dx) Discharge Disposition: Home or Self Care 07/31/2024 Travel 07/29/2024 Telephone [facility] [address] [place] [address] Farhad Castillo MD 07/27/2024 10:00 AM EDT Pre-Admission Testing [facility] Pre-op Clinic [address], [address] [place] [address] 07/27/2024 Telephone [facility] [address] [place] [address] Farhad Castillo MD 07/27/2024 Telephone [facility] [address] [place] [address] Farhad Castillo MD 07/27/2024 Travel 07/23/2024 11:10 AM EDT - 07/23/2024 11:59 PM EDT Hospital Encounter [facility] [address]nd [place] [address] Metastatic colon cancer to liver (CMS/HCC) Discharge Disposition: Home or Self Care 07/23/2024 8:30 AM EDT Office Visit [facility] [address] [place] [address] Farhad Castillo MD Metastatic colon cancer to liver (CMS/HCC) (Primary Dx) 07/23/2024 Telephone [facility] [address] [place] [address] Farhad Castillo MD 07/23/2024 Travel from Last 3 Months Family History Medical [...] were you homeless or living in a assisted (including now)? No 10/09/2024 Utilities Answer Date [...] Description 11/19/2024 8:40 AM EDT Appointment [facility] [address]nd [place] [address] 11/19/2024 11:15 AM EDT Office Visit [facility] Multidisciplinary Oncology Clinic [address] [place] [address] Farhad Castillo MD [address] [address] Health Maintenance Due Date Last Done Comments [facility]-Infant/Child/Adol SDOH Screenings 1965 Diabetes: Dental Exam 1974 [facility]-DTaP,Tdap,and Td Vaccines (1 - Tdap) 1983 [facility]-Hepatitis A Vaccines (1 of 2 - Risk 2-dose series) 1983 [facility]-Zoster Vaccines (1 of 2) 1983 [facility]-INDMT-95 Vaccine ( - season) 2023 01/15/2022, 03/28/2021, 07/27/2020, Additional history [...] this topic Medical Devices Implanted Type Area Exceptional Children[employer] Teacher Device Identifier Shelf Expiration Date Model / Serial / Lot Port Clearvue Power 8fr - S. - [id number] Implanted:Qty : 1 on 07/31/2024 by Farhad Castillo MD at [facility] Other Medication Pump Left: Chest [employer]-[id number] 07/13/2025 [id number] / . / [id number] Procedures Procedure Name Priority Date/Time Associated Diagnosis [...] ANESTHESIA PLACEHOLDER Routine 07/31/2024 7:33 AM EDT WY AN ELECTIVE ENDOTRACHEAL AIRWAY Routine 07/31/2024 7:33 AM EDT WY INSERT TUNNELED CV CATH WITH PORT 07/31/2024 [...] EDT Metastatic colon cancer to liver (CMS/HCC) from Last 3 Months Results * (ABNORMAL) [...] Comment 10/09/2024 12:12 PM EDT [facility] Exchange Trouble Shooter ID Julia Wisdom [id number] 12:12 PM EDT [facility] Device ID [id number] 10/09/2024 12:12 PM EDT [facility]ALTH[facility]ARE [facility] Specimen Type POC Capillary 10/09/2024 12:12 PM EDT [facility] Blood Capillary blood specimen / Unknown 10/09/2024 12:08 PM EDT 10/09/2024 12:12 PM EDT us Jj Carson MD LAB POINT OF CARE TE ST DOCKED DEVICE UNSOLICITED RESULTS Final Result [facility] [address] [place] [address] * XR Abdomen 1 View (10/09/2024 9:41 [...] LAB HEMATOLOGY METHOD 10/09/2024 4:[address] [facility] RBC Count 4.07(L) 4.60 - 6.10 10*6/uL LAB HEMATOLOGY METHOD 10/09/2024 4:[address] [facility] HGB 13.3(L) 13.7 - 17.5 g/dL LAB HEMATOLOGY METHOD 10/09/2024 4:[address] [facility] HCT 37.0(L) 40.0 - 51.0 % LAB HEMATOLOGY METHOD 10/09/2024 4:[address] [facility] Platelet Count 312 155 - 369 10*3/uL LAB HEMATOLOGY METHOD 10/09/2024 4:[address] [facility] MCV 91 79 - 98 fL LAB HEMATOLOGY METHOD 10/09/2024 4:[address] [facility] MCH 32.7(H) 26.0 - 32.0 pg LAB HEMATOLOGY METHOD 10/09/2024 4:[address] [facility] MCHC 35.9(H) 30.7 - 35.5 g/dL LAB HEMATOLOGY METHOD 10/09/2024 4:[address] [facility] RDW 13.5 11.5 - 14.5 % LAB HEMATOLOGY METHOD 10/09/2024 4:[address] [facility] MPV 9.1 8.8 - 12.5 fL LAB HEMATOLOGY METHOD 10/09/2024 4:[address] [facility] nRBC 0.0 <=0.0 per 100 WBCs LAB HEMATOLOGY METHOD 10/09/2024 4:[address] [facility] Blood Venous blood specimen / Unknown Venipuncture / Unknown 10/09/2024 4:28 AM EDT 10/09/2024 4:50 AM EDT Eva Barnes APRN, DNP LAB BLOOD ORDERABLE S Final Result [facility] [address] [place] [address] * (ABNORMAL) Basic metabolic panel (10/09/2024 4:28 AM EDT) Only the most recent of2 resultswithin the time period is included. Glucose, Plasma 286(H) 74 - 99 mg/dL 10/09/2024 5:[address] [facility] BUN, Plasma 36(H) 8 - 23 mg/dL 10/09/2024 5:[address] [facility] Creatinine, Plasma 1.45(H) 0.70 - 1.20 mg/dL 10/09/2024 5:[address] [facility] BUN/Creatinine Ratio 25 10/09/2024 5:[address] [facility] Sodium, Plasma 131(L) 136 - 145 mmol/L 10/09/2024 5:[address] [facility] Potassium, Plasma 3.4(L) 3.6 - 4.9 mmol/L 10/09/2024 5:[address] [facility] Comment:Hemolyzed, result ma y be falsely increased. Chloride, Plasma 99 97 - 107 mmol/L 10/09/2024 5:[address] [facility] CO2, Plasma 17(L) 22 - 29 mmol/L 10/09/2024 5:[address] [facility] Anion Gap 15 6 - 16 mmol/L 10/09/2024 5:[address] [facility] Total Calcium, Plasma 8.8(L) 8.9 - 10.2 mg/dL 10/09/2024 5:[address] [facility] eGFRcr 55.2 mL/min/1.7 3m*2 10/09/2024 5:[address] [facility] Comment:Reported eGFRcr in m L/min/1.73m2 is based the CKD-EPI 2020 equation that does not use a race coefficient. Blood Venous blood specimen / Unknown Venipuncture / Unknown 10/09/2024 4:28 AM EDT 10/09/2024 5:03 AM EDT Eva Barnes TRAVEL SERVICE CONSULTANT, DNP LAB BLOOD ORDERABLE S Final Result [facility] [address] [place] [address] * XR Gastrograffin Challenge (10/09/2024 1:17 AM [...] - 4.5 mg/dL 10/08/2024 6:[address] [facility] Blood Venous blood specimen / Unknown Venipuncture / Unknown 10/08/2024 4:59 AM EDT 10/08/2024 5:16 AM EDT Jj Carson MD LAB BLOOD ORDERABLES Final Res ult [facility] [address] [place] [address] * (ABNORMAL) Magnesium, Plasma (10/08/2024 4:59 AM EDT) Only the most recent of2 resultswithin the time period is included. Magnesium, Plasma 1.7(L) 1.9 - 2.4 mg/dL 10/08/2024 6:[address] [facility] Blood Venous blood specimen / Unknown Venipuncture / Unknown 10/08/2024 4:59 AM EDT 10/08/2024 5:16 AM EDT Jj Carson MD LAB BLOOD ORDERABLES Final Res ult [facility] [address] [place] [address] * (ABNORMAL) Hemoglobin A1c (10/08/2024 4:59 AM EDT) Only the most recent of2 resultswithin the time period is included. Hemoglobin A1c 7.6(H) <5.7 % 10/08/2024 11:[address] [facility] Blood Venous blood specimen / Unknown Venipuncture / Unknown 10/08/2024 4:59 AM EDT 10/08/2024 5:[address] [facility] - 10/08/2024 11:37 AM EDT HA1C Interpretive Data: Diagnosis of Diabetes: Diabetic > or = 6.5% Pre-diabetic 5.7 to 6.4% Non-diabetic < or = 5.6% Glycemic Targets for Type I and Type II Diabetics: Non- Adults <7.0% Adults <6.0% Children and Adolescents <7.5% Source: [place] [employer]. Standards of medical care in diabetes,2017. Diabetes Care.2017:40 (suppl 1):S1-S135. us Jj Carson MD LAB BLOOD ORDERABLES Final Res ult [facility] [address] [place] [address] * CT Abdomen Pelvis w IV Contrast [...] lesion. Chronic degenerative changes noted. Procedure Note Grimaldo Domenica Anitra, DO - 10/08/2024 CLINICAL INDICATION: bowel obstruction [...] signing this report, I, the attending physician, susan I have personally reviewed the images/data for [...] ECG Atrial Rate 85 BPM MUSE ECG WY Interval 168 ms MUSE ECG QRSD Interval 162 ms MUSE ECG QT Interval 442 ms MUSE ECG QTC Interval 525 ms MUSE ECG P [place] 16 degrees MUSE ECG R [place] -32 degrees MUSE ECG T Wave [place] 47 degrees MUSE ECG Diagnosis Normal sinus rhythm MUSE ECG Diagnosis Left axis deviation in the presence of LAFB MUSE ECG Diagnosis Right bundle branch block Bifascicular block MUSE ECG Diagnosis Minimal voltage criteria for LVH, may be normal variant ( R in aVL ) MUSE ECG Diagnosis Abnormal ECG MUSE ECG Diagnosis MUSE ECG Diagnosis Confirmed by Adarsh Pichardo ([id number]) on 10/08/2024 10:50:58 AM MUSE ECG 10/08/2024 12:5 5 AM EDT 10/08/2024 10:50 AM EDT us Mickie Jefferson MD ECG ORDERABLES Final Result MUSE ECG * ED HIV 1/2 Antibody/Antigen Screen w/Reflex to HIV 1/2 Differentiation (10/08/2024 12:55 AM EDT) HIV 1 & 2 Antibody/Antigen Screen Non Reactive Non Reactive 10/08/2024 2:[address] [facility] Comment:Screening for HIV 1 & 2 antibodies, and P24 antigen is NONREACTIVE. No confirmatory testing is required. Blood Venous blood specimen / Unknown Venipuncture / Unknown 10/08/2024 12:55 AM EDT 10/08/2024 1:11 AM EDT us Mickie Jefferson MD LAB BLOOD ORDERABLES Final Re sult [facility] [address] [place] [address] * Lactic acid, venous (10/08/2024 12:55 AM EDT) Lactate, Venous, Whole Blood 1.1 0.5 - 2.2 mmol/L LAB HEMATOLOGY METHOD 10/08/2024 1:[address] [facility] Blood Venous blood specimen / Unknown Venipuncture / Unknown 10/08/2024 12:55 AM EDT 10/08/2024 1:07 AM EDT us Mickie Jefferson MD LAB BLOOD ORDERABLES Final Re sult Performing Organization Address [facility] Co de Phone Number [facility] [address] [place] [address] * Hepatitis C Antibody - ED (10/08/2024 12:55 AM EDT) [facility] Hepatitis C Antibody Negative Negative 10/08/2024 2:[address] [facility] Blood Venous blood specimen / Unknown Venipuncture / Unknown 10/08/2024 12:55 AM EDT 10/08/2024 1:11 AM EDT us Mickie Jefferson MD LAB BLOOD ORDERABLES Final Re sult Performing Organization Address [facility] de Phone Number [facility] [address] [place] [address] * (ABNORMAL) PT-INR (10/08/2024 12:55 AM EDT) Only the most recent of2 resultswithin the time period is included. [facility] Prothrombin Time 14.7(H) 12.0 - 14.3 sec 10/08/2024 1:[address] [facility] INR 1.2(H) 0.9 - 1.1 10/08/2024 1:[address] [facility] Blood Venous blood specimen / Unknown Venipuncture / Unknown 10/08/2024 12:55 AM EDT 10/08/2024 1:[address] [facility] - 10/08/2024 1:27 AM EDT [...] Final Re sult Performing Organization Address [facility] Co de Phone Number [facility] [address] [place] [address] * (ABNORMAL) CBC w/diff (10/08/2024 12:55 AM EDT) [facility] Signature WBC Count 11.32(H) 3.70 - 10.30 10*3/uL LAB HEMATOLOGY METHOD 10/08/2024 1:[address] [facility] RBC Count 4.20(L) 4.60 - 6.10 10*6/uL LAB HEMATOLOGY METHOD 10/08/2024 1:[address] [facility] HGB 13.9 13.7 - 17.5 g/dL LAB HEMATOLOGY METHOD 10/08/2024 1:[address] [facility] HCT 38.0(L) 40.0 - 51.0 % LAB HEMATOLOGY METHOD 10/08/2024 1:[address] [facility] Platelet Count 293 155 - 369 10*3/uL LAB HEMATOLOGY METHOD 10/08/2024 1:[address] [facility] MCV 91 79 - 98 fL LAB HEMATOLOGY METHOD 10/08/2024 1:[address] [facility] MCH 33.1(H) 26.0 - 32.0 pg LAB HEMATOLOGY METHOD 10/08/2024 1:[address] [facility] MCHC 36.6(H) 30.7 - 35.5 g/dL LAB HEMATOLOGY METHOD 10/08/2024 1:[address] [facility] RDW 13.5 11.5 - 14.5 % LAB HEMATOLOGY METHOD 10/08/2024 1:[address] [facility] MPV 10.0 8.8 - 12.5 fL LAB HEMATOLOGY METHOD 10/08/2024 1:[address] [facility] nRBC 0.0 <=0.0 per 100 WBCs LAB HEMATOLOGY METHOD 10/08/2024 1:[address] [facility] Differential Type Automated LAB HEMATOLOGY METHOD 10/08/2024 1:[address] [facility] Neutrophils % 70 % LAB HEMATOLOGY METHOD 10/08/2024 1:[address] [facility] Lymphocytes % 10 % LAB HEMATOLOGY METHOD 10/08/2024 1:[address] [facility] Monocytes % 18 % LAB HEMATOLOGY METHOD 10/08/2024 1:[address] [facility] Eosinophils % 0 % LAB HEMATOLOGY METHOD 10/08/2024 1:[address] [facility] Basophils % 1 % LAB HEMATOLOGY METHOD 10/08/2024 1:[address] [facility] Immature Granulocytes % 1 % LAB HEMATOLOGY METHOD 10/08/2024 1:[address] [facility] Neutrophils Absolute 7.97(H) 1.60 - 6.10 10*3/uL LAB HEMATOLOGY METHOD 10/08/2024 1:[address] [facility] Lymphocytes Absolute 1.17(L) 1.20 - 3.90 10*3/uL LAB HEMATOLOGY METHOD 10/08/2024 1:[address] [facility] Monocytes Absolute 2.01(H) 0.30 - 0.90 10*3/uL LAB HEMATOLOGY METHOD 10/08/2024 1:[address] [facility] Eosinophils Absolute 0.02 0.00 - 0.50 10*3/uL LAB HEMATOLOGY METHOD 10/08/2024 1:[address] [facility] Basophils Absolute 0.07 0.00 - 0.10 10*3/uL LAB HEMATOLOGY METHOD 10/08/2024 1:[address] [facility] Immature Granulocytes Absolute 0.08(H) 0.00 - 0.06 10*3/uL LAB HEMATOLOGY METHOD 10/08/2024 1:[address] [facility] Blood Venous blood specimen / Unknown Venipuncture / Unknown 10/08/2024 12:55 AM EDT 10/08/2024 1:[address] [facility] - 10/08/2024 1:09 AM EDT Therapeutic decision making should be based on absolute values, rather than percentages. us Mikcie Jefferson MD LAB BLOOD ORDERABLES Final Re sult [facility] [address] [place] [address] * Type and screen (10/08/2024 12:55 AM EDT) ABO/Rh A Positive 10/08/2024 12:50 AM EDT BLOOD BANK Antibody Screen Negative 10/08/2024 12:50 AM EDT BLOOD BANK Specimen Expiration 10/11/2024 23:59 10/08/2024 12:50 AM EDT BLOOD BANK Blood Venous blood specimen / Unknown Venipuncture / Unknown 10/08/2024 12:55 AM EDT 10/08/2024 1:05 AM EDT Mickie Jefferson MD LAB BLOOD BANK TEST ORDERABLE S Final Result BLOOD BANK [address] [place] [address], * (ABNORMAL) CMP (10/08/2024 12:55 AM EDT) Only the most recent of2 resultswithin the time period is included. Glucose, Plasma 235(H) 74 - 99 mg/dL 10/08/2024 1:[address] [facility] BUN, Plasma 44(H) 8 - 23 mg/dL 10/08/2024 1:[address] [facility] Creatinine, Plasma 1.52(H) 0.70 - 1.20 mg/dL 10/08/2024 1:[address] [facility] BUN/Creatinine Ratio 29 10/08/2024 1:[address] [facility] Sodium, Plasma 125(L) 136 - 145 mmol/L 10/08/2024 1:[address] [facility] Potassium, Plasma 3.8 3.6 - 4.9 mmol/L 10/08/2024 1:[address] [facility] Chloride, Plasma 93(L) 97 - 107 mmol/L 10/08/2024 1:[address] [facility] CO2, Plasma 14(L) 22 - 29 mmol/L 10/08/2024 1:[address] [facility] Anion Gap 18(H) 6 - 16 mmol/L 10/08/2024 1:[address] [facility] Total Calcium, Plasma 9.2 8.9 - 10.2 mg/dL 10/08/2024 1:[address] [facility] Total Protein 7.3 6.3 - 7.9 g/dL 10/08/2024 1:[address] [facility] Albumin, Plasma 3.9 3.5 - 5.2 g/dL 10/08/2024 1:[address] [facility] AST, Plasma 24 10 - 50 U/L 10/08/2024 1:[address] [facility] Comment:Hemolyzed, result ma y be falsely increased. ALT, Plasma 12 10 - 50 U/L 10/08/2024 1:[address] [facility] Alkaline Phosphatase, Plasma 89 40 - 115 U/L 10/08/2024 1:[address] [facility] Total Bilirubin, Plasma 0.8 0.2 - 1.1 mg/dL 10/08/2024 1:[address] [facility] eGFRcr 52.1 mL/min/1.7 3m*2 10/08/2024 1:[address] [facility] Comment:Reported eGFRcr in m L/min/1.73m2 is based the CKD-EPI 2020 equation that does not use a race coefficient. Blood Venous blood specimen / Unknown Venipuncture / Unknown 10/08/2024 12:55 AM EDT 10/08/2024 1:05 AM EDT us Mickie Jefferson MD LAB BLOOD ORDERABLES Final Re sult [facility] [address] [place] [address] * CT OUTSIDE IMAGES (10/07/2024 7:58 PM [...] IMG FLUOROSCOPY PROCEDURES Final Result IMAGING * WY AN ELECTIVE ENDOTRACHEAL AIRWAY, PB ANESTHESIA PLACEHOLDER [...] 2a view with lopro 4. us Wilian Jeffesron MD ANESTHESIA ORDERABLES Final Res ult * [...] Total DLP (Dose-Length Product): 2037.69 mGy.cm (accession [id number]), 2037.69 mGy.cm (accession [id number]) Please note: The reported value represents the [...] Total DLP (Dose-Length Product): 2037.69 mGy.cm (accession [id number]),2037.69 mGy.cm (accession [id number]) Please note: The reported valuerepresents the total [...] 07/23/2024 2:29 PM us Farhad Castillo MD IMG CT PROCEDURES Final Re sult * (ABNORMAL) APTT (07/23/2024 10:36 AM EDT) aPTT 24(L) 25 - 35 sec LAB COAGULATION METHOD 07/23/2024 11:[address] [facility] Blood Venous blood specimen / Unknown Venipuncture / Unknown 07/23/2024 10:36 AM EDT 07/23/2024 10:54 AM EDT Farhad Castillo MD LAB BLOOD ORDERABLES Final Result Performing Organization Address [facility] Co de Phone Number [facility] [address] [place] [address] * Prealbumin, Plasma (07/23/2024 10:36 AM EDT) Prealbumin, Plasma 22.6 20.0 - 41.0 mg/dL 07/23/2024 11:[address] [facility] Blood Venous blood specimen / Unknown Venipuncture / Unknown 07/23/2024 10:36 AM EDT 07/23/2024 10:54 AM EDT Farhad Castillo MD LAB BLOOD ORDERABLES Final Result Performing Organization Address [facility] de Phone Number [facility] [address] [place] [address] * (ABNORMAL) CEA, Serum (07/23/2024 10:36 AM EDT) Pathologist [facility] CEA, Serum 9.1(H) <4.0 ng/mL 07/23/2024 11:[address] [facility] Blood Venous blood specimen / Unknown Venipuncture / Unknown 07/23/2024 10:36 AM EDT 07/23/2024 10:[address] [facility] - 07/23/2024 11:32 AM EDT Normal range for smokers: < 5.5 ng/ml Normal range for non-smokers: <=4.0 ng/ml Performed by [employer] electrochemiluminescent immunoassay. Results obtained with different test methods or kits cannot be used interchangeably. Farhad Castillo MD LAB BLOOD ORDERABLES Final Result [facility] [address] [place] [address] from Last 3 Months Insurance [place]ICA[place] Advance Directives * Full Code (Latest Code Status on File) Date Activated Date Inactivated Comments 10/08/2024 4:28 AM 10/09/2024 5:43 PM Question Answer Comments I have reviewed the capacity from the link above and, if needed, have updated to appropriate status: Yes Care Teams Heel Seat Filler Relationship Specialty Start Date End Date Tayo Jones MD [address] [place] [address] PCP - General 07/14/24
--- OUTSIDE RECORDS SUMMARY | 2024-10-20 09:04 | XMS_ITS ---
Author Organization [facility] Address [address] [place] [address] Care Team Providers Care Hydrologic Modeler Name Role Phone Tayo Jones MD Primary Care Provider [phone] Active Problems Problem Noted Date Diagnosed Date [...]
--- OUTSIDE RECORDS SUMMARY | 2024-10-20 09:04 | XMS_ITS | Encounter Summary ---
Author Organization Healthcare Address [address] [place] [id number] Care Team Providers Care Counter Manager Name Role Phone Tayo Jones MD Primary Care Provider [phone] Encounter Details Date Type Department Care Team (Late st Contact Info) Description 07/29/2024 Telephone [facility] [address] [place] [address] Farhad Castillo MD [address] [phone] Social History Tobacco Use Types Packs/Day Years [...] from Rosie Post, Oncology Nurse Navigator at [facility] in Dr. Matthew's office. She is requesting a call back from the clinic yon with Dr. Castillo's recommendations for POC now that scans are complete. She can be reached at [phone]. documented in this encounter Plan of Treatment Upcoming Encounters Date Type Department Care Team (Late st Contact Info) Description 11/19/2024 8:40 AM EDT Appointment [facility] [address] [place] [address] 11/19/2024 11:15 AM EDT Office Visit [facility] Multidisciplinary Oncology Clinic [address] [place] [address] Farhad Castillo MD [address] [address] documented as of this encounter Visit Diagnoses Not on filedocumented in this encounter Additional Health Concerns Assessment Noted Time A fall risk assessment has been complete d for the patient 07/23/2024 8:54 AM EDT A Body Mass Index follow-up plan has been documented for the patient 07/24/2024 8:25 AM EDT documented as of this encounter Care Teams Counter Manager Relationship Specialty Start Date End Date Tayo Jones MD [address] [place] [address] PCP - General 07/14/24 documented as of this encounter
[2024-10-20 09:43] LABS: Hematocrit 34.2 % (42.0-52.0); Hemoglobin 11.6 g/dL (14.1-18.0); Immature Granulocytes % 0.8 %; Mean Corpuscular HGB Conc 33.9 g/dL (31.8-35.4); Mean Corpuscular Hemoglobin 31.9 pg (27.0-31.2); Mean Corpuscular Volume 94.0 fl (80-94); Nucleated Red Blood Cells % 0 %; Platelet Count 285 K/mm3 (142-424); Red Blood Count 3.64 M/mm3 (4.60-6.20); Red Cell Distribution Width-SD 45.2 fL; White Blood Count 8.4 K/mm3 (4.8-10.8)
[2024-10-20 09:45] LABS: Alanine Aminotransferase 21 U/L (12-78); Albumin Level 3.8 g/dl (3.5-5.0); Albumin/Globulin Ratio 1.3 (1.1-1.8); Alkaline Phosphatase 69 U/L (38-126); Anion Gap 19.6 mEq/L (5-15); Aspartate Amino Transferase 43 U/L (17-59); Bilirubin,Total 0.5 mg/dl (0.2-1.3); Blood Urea Nitrogen 16 mg/dl (9-20); Calcium 9.0 mg/dl (8.4-10.2); Carbon Dioxide 20 mmol/L (22.0-30.0); Chloride 101 mmol/L (98-107); Creatinine,Serum 1.00 mg/dl (0.66-1.25); Estimated Glomerular Filt Rate 76 ml/min (>60); GFR (African American) 92 ML/MIN (>60); Globulin 2.9 g/dL (1.3-3.2); Glucose 150 mg/dl (74-100); Potassium 4.6 mmoL/L (3.5-5.1); Sodium 136 mmol/L (136-145); Total Protein,Serum 6.7 g/dl (6.3-8.2)
[2024-10-20 09:57] LABS: Magnesium 1.5 mg/dl (1.6-2.3)
[2024-10-20] MEDS: ONDANSETRON 4MG ODT 16 MG (10:04)
[2024-10-20] MEDS: DEXAMETHASONE 4MG TABLET 12 MG (10:04)
[2024-10-20 10:05] VITALS: BP 130/64; PULSE 81; RESP 20; TEMP 36.7; O2SAT 99
[2024-10-20] MEDS: 0.9 % SODIUM CHLORIDE 50 ML IV (10:05)
[2024-10-20] MEDS: SODIUM CHLORIDE 0.9% 10ML FLUSH SYRINGE 10 ML IV (10:22)
[2024-10-20 10:33] VITALS: BP 120/71; PULSE 78; RESP 20; O2SAT 99
[2024-10-20] MEDS: WATER IV (10:33)
[2024-10-20] MEDS: IRINOTECAN HCL IV (10:33)
[2024-10-20] MEDS: DEXTROSE 5% IV (10:33)
[2024-10-20 11:03] VITALS: BP 126/69; PULSE 80; RESP 20; O2SAT 98
[2024-10-20 11:33] VITALS: BP 128/65; PULSE 81; RESP 18; O2SAT 99
[2024-10-20 12:03] VITALS: BP 131/64; PULSE 79; RESP 20; O2SAT 98
[2024-10-20 12:22] VITALS: BP 137/63; PULSE 83; RESP 18; O2SAT 99
== END 2024-10-20 12:30 | disposition home or self-care (01) ==
LOC: INF 09:01
PROVIDERS: PCP Family Medicine; Visit Provider Internal Medicine Medical Oncology
DX: C18.2 Malignant neoplasm of ascending colon (principal)
CPT/HCPCS: 80053; 83735; 85025; 96413; 96415; J1642; J7060; J8540; J9206; Q0162

== ENCOUNTER 2024-10-22 08:08 | Outpatient (CLI) | payer MEDICAID, SELFPAY ==
--- OUTSIDE RECORDS SUMMARY | 2024-10-08 00:10 | XMS_ITS | Encounter Summary ---
Author Organization [facility] Address [address] [id number] Care Team Providers Care Steamboat Pilot Name Role Phone Tayo Jones MD Primary Care Provider [phone] Reason for Visit * Reason Comments Abdominal Pain * Auth/Cert (Routine) Specialty Diagnoses / Procedures Referred By Samia t Referred To Contact Diagnoses Bowel obstruction (CMS/HCC) Bowel Obstruction, hx of Colon Cancer Wilda Carson MD [address] [address] Phone: tel: fax: [facility] [address] [place] [address] Phone: tel: Referral ID Status Reason Start Date Expiration Date Visits Re quested Visits Authorized [id number] 1 1 Encounter Details Date Type Department Care Team (Latest Contact Info) Description 10/08/2024 12:10 AM EDT - 10/09/2024 3:38 PM EDT Hospital Encounter [facility] Emergency [facility] [address] [place] [address] Mickie Jefferson MD [address] [place] [address] Wilda Carson MD [address] [address] Small bowel obstruction (CMS/HCC) (Primary [...] any time in the past 12 m [facility], were you homeless or living in a halfway (including now)? No 10/09/2024 Utilities Answer Date [...] follow up your medical oncology team at [facility] Questions: Call the [facility] at [phone] during business hours on weekdays or call [facility]'s after hours at [phone] to speak with a resident specialty finishing utility person for Colorectal surgery after 5pm or on [...] Note Nayan Womack 59 y.o. 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 Ironer Operator: Self/ Facility Assistance Available at Discharge: Availability of Care Givers (#Hours): 24 hours Discharge Facility/Level of Care Needs: Discharge Facility/Level of Care Needs: 3-Mcfp Facility Patient's Choice of Community Agency(s): [facility] ([facility]) Patient/Family Anticipated Services at Transition: Patient/Family Anticipated Services at Transition: none DME/Equipment Needed after Discharge: Equipment Currently Used at Home: none Readmission Within the Last 30 Days: Readmission Within the Last 30 Days: no previous admission in last 30 days Medicare Documentation: Medicare Second Notice?: No (N/A -1 Day) Follow-up: Franky Kim PA [address] [place] [address] Discharge Transportation: Transportation Anticipated: family or friend will provide Transportation Home at Discharge: Family/Friend will Provide Follow Up Transport: Transportation Needed to Follow up Appoinments: Other(Comment) (Facility) Additional Comments: POC reviewed with primary team. Refer to primary team's discharge note for details. Per MD pt is medically ready to discharge today. Pt is a ltc resident at a [facility]. Dispo: [facility] Facility: [facility] Facility Address: [address] [place] [address] RN to call Report: [phone] DC summary Fax: SW Sent through [place] Transport: Sister to transport Patient is in [...] (currently on chemo) who presented to the [facility] on 10/08/2024 from anOSH d/t a bowel obstruction. His oncology care is provided at [facility]. CT imaging on presentation with [...] name and Address: Tayo Jones MD [address] [facility] [address] Referring provider name and address: Franky Kim PA [address] [facility] [address] [place] [address] Chief Concern, Brief History of Present Illness, and Hospital Course Nayan Womack is a 59 y.o. male with PMHx significant for moderately differentiated colon adenocarcinoma s/p R colectomy and adjuvant xeloda, loss to follow up, and recent representation with metastatic disease to the liver (currently on chemo) who presented to the [facility] on 10/08/2024 from [facility] d/t a bowel obstruction. His oncology care is provided at [facility]. CT imaging on presentation with [...] 8:[address] [facility] 11/19/2024 11:15 AM Farhad Castillo [...] from the original note were not included. [facility] Department of Surgery Division of Colorectal Surgery Surgery Progress Note 10/09/24 Nayan Womack Subjective Subjective: HPI Nayan Womack is a 59 y.o. male with PMHx significant for moderately differentiated colon adenocarcinoma s/p R colectomy and adjuvant xeloda, loss to follow up, and recent representation with metastatic disease to the liver currently at [facility](driven by Onc at [facility]) who presented to the [facility] on 10/08/2024 from an OSH d/t [...] liver currently at chemo(driven by Onc at [facility]) who presented to the [facility] on 10/08/2024 from an OSH d/t [...] from the original note were not included. [facility] Department of Surgery Division of Colorectal [...] liver currently at chemo(driven by Onc at [facility]) who presented to the [facility] on 10/08/2024 from an OSH d/t [...] History Administered Date(s) Administered Moderna COVID-19 Vaccine (Biostatistics Director) 12+ years 06/29/2020, 07/27/2020, 03/28/2021 Pfizer-BioNTech COVID-19 [...] MD ondansetron (Zofran) 4 MG tablet 04/19/24 jT Guerra MD Quercetin 500 MG capsule Take [...] liver currently at chemo(driven by Onc at [facility]) who presented to the [facility] on 10/08/2024 from an OSH d/t [...] down and gluc 225 -f/u CT imaging -[facility] Dispo: Admit to scr CODE STATUS: full [...] Review Outcome: Ongoing, Progressing Flowsheets (Taken 10/09/2024 0892) Plan of Care Reviewed With: patient Goal: Patient-Specific Goal (Individualized) Outcome: Ongoing, Progressing Goal: Absence of Hospital-Acquired Illness or Injury Outcome: Ongoing, Progressing Intervention: Identify and Manage Fall Risk Flowsheets (Taken 10/09/2024826) Safety Promotion/Fall Prevention: assistive device/personal items within [facility] fall prevention program maintained safety round/check completed mobility aid in [facility] clutter-free environment maintained Intervention: Prevent Infection [...] Safety Promotion/Fall Prevention: assistive device/personal items within [facility] fall prevention program maintained safety round/check completed mobility aid in [facility] clutter-free environment maintained Intervention: Prevent Infection [...] and oriented to person, place, and time. [place] Coma Scale Score: 15 ED Course & [...] None Disposition Admit Admitting/Attending Physician: WILDA CARSON [[id number]] Provider Care Team: MEIR MANZANARES COLORECTAL SURGERY [...] Info) Description 11/19/2024 8:40 AM EDT Appointment [facility] [address] [facility] [place] [address] 11/19/2024 11:15 AM EDT Office Visit [facility] Multidisciplinary Oncology Clinic [address] [place] [address] Farhad Castillo MD [address] [phone] documented as of this encounter Procedures Procedure [...] for testing. Comment 10/09/2024 12:12 PM EDT [facility] Internship ID Alyx, Julia 025 12:12 PM EDT [facility] Device ID [id number] 10/09/2024 12:12 PM EDT [facility] Specimen Type POC Capillary 10/09/2024 12:12 PM EDT [facility] Blood Capillary blood specimen / Unknown 10/09/2024 12:08 PM EDT 10/09/2024 12:12 PM EDT Wilda Carson MD LAB POINT OF CARE TE ST DOCKED DEVICE UNSOLICITED RESULTS Final Result Performing Organization Address City/State/[facility] Co de Phone Number HEALTHCARE LAB [address] [place] [address] * XR Abdomen 1 View (10/09/2024 9:41 [...] glucose meter (10/09/2024 5:47 AM EDT) Pathologist [facility] POCT Glucose 270(H) 74 - 99 mg/dL [...] for testing. Comment 10/09/2024 5:49 AM EDT [facility] Internship ID Flor Marks 10/09/2024 5:49 AM EDT [facility] Device ID [id number] 10/09/2024 5:49 AM EDT [facility] Specimen Type POC Capillary 10/09/2024 5:49 AM EDT [facility] Blood Capillary blood specimen / Unknown 10/09/2024 5:47 AM EDT 10/09/2024 5:49 AM EDT Wilda Carson MD LAB POINT OF CARE TE ST DOCKED DEVICE UNSOLICITED RESULTS Final Result Performing Organization Address City/State/[facility] de Phone Number HEALTHCARE LAB [address] [place] [address] * (ABNORMAL) Basic metabolic panel (10/09/2024 4:28 AM EDT) Pathologist [facility] Glucose, Plasma 286(H) 74 - 99 mg/dL [...] EDT 10/09/2024 5:03 AM EDT Eva Barnes QUALITY IMPROVEMENT CONSULTANT, DNP LAB BLOOD ORDERABLE S Final Result [facility] [address] [place] [address] * (ABNORMAL) CBC W/O Differential (10/09/2024 4:28 [...] EDT 10/09/2024 4:50 AM EDT Eva Barnes QUALITY IMPROVEMENT CONSULTANT, DNP LAB BLOOD ORDERABLE S Final Result [facility] [address] [place] [address] * XR Gastrograffin Challenge (10/09/2024 1:17 AM [...] POCT glucose meter (10/08/2024 11:59 PM EDT) [facility] POCT Glucose 287(H) 74 - 99 mg/dL [...] Comment 10/09/2024 12:00 AM EDT [facility]ARE [facility] Hr Internship ID Flor Marks 10/09/2024 12:00 AM EDT [facility]ALTH[facility]ARE [facility] Device ID [id number] 10/09/2024 12:00 AM EDT [facility]ARE LAB Specimen Type POC Capillary 10/09/2024 12:00 AM EDT [facility] Blood Capillary blood specimen / Unknown 10/08/2024 11:59 PM EDT 10/09/2024 12:00 AM EDT us Wilda Carson MD LAB POINT OF CARE TE ST DOCKED DEVICE UNSOLICITED RESULTS Final Result Performing Organization Address City/State/[facility] Co de Phone Number [facility] [address] [place] [address] * (ABNORMAL) POCT glucose meter (10/08/2024 9:01 PM EDT) [facility] POCT Glucose 284(H) 74 - 99 mg/dL [...] 10/08/2024 9:03 PM EDT [facility] Internship ID Isma Quiroz 025 9:03 PM EDT [facility] Device ID [id number] 10/08/2024 9:03 PM EDT [facility]ALTH[facility]ARE LAB Specimen Type POC Capillary 10/08/2024 9:03 PM EDT [facility]ARE [facility] Blood Capillary blood specimen / Unknown 10/08/2024 9:01 PM EDT 10/08/2024 9:03 PM EDT Wilda Carson MD LAB POINT OF CARE TE ST DOCKED DEVICE UNSOLICITED RESULTS Final Result Performing Organization Address City/[facility] Co de Phone Number HEALTHCARE LAB [address] [place] [address] * (ABNORMAL) POCT glucose meter (10/08/2024 5:08 [...] Comment 10/08/2024 5:10 PM EDT [facility]ARE [facility] Hr Internship ID Franchesca Herrera 5:10 PM EDT [facility] Device ID [id number] 10/08/2024 5:10 PM EDT HEALTHCARE LAB Specimen Type POC Capillary 10/08/2024 5:10 PM EDT [facility] Blood Capillary blood specimen / Unknown 10/08/2024 5:08 PM EDT 10/08/2024 5:10 PM EDT us Wilda Carson MD LAB POINT OF CARE TE ST DOCKED DEVICE UNSOLICITED RESULTS Final Result Performing Organization Address City/[facility] Co de Phone Number [facility]ARE [facility] [address] [place] [address] * (ABNORMAL) POCT glucose meter (10/08/2024 11:57 [...] Comment 10/08/2024 11:59 AM EDT [facility] Hr Internship ID Phuong Glass 025 11:59 AM EDT [facility]ALTH[facility]ARE LAB Device ID [id number] 10/08/2024 11:59 AM EDT [facility]ARE LAB Specimen Type POC Capillary 10/08/2024 11:59 AM EDT [facility] Blood Capillary blood specimen / Unknown 10/08/2024 11:57 AM EDT 10/08/2024 11:59 AM EDT Wilda Carson MD LAB POINT OF CARE TE ST DOCKED DEVICE UNSOLICITED RESULTS Final Result Performing Organization Address City/State/[facility] Co de Phone Number [facility] [address] [place] [address] * (ABNORMAL) POCT glucose meter (10/08/2024 7:55 AM EDT) [facility] POCT Glucose 248(H) 74 - 99 mg/dL [...] 10/08/2024 7:57 AM EDT [facility] H[facility] Internship ID Phuong Glass 025 7:57 AM EDT [facility] Device ID [id number] 10/08/2024 7:57 AM EDT [facility]ALTH[facility]ARE LAB Specimen Type POC Capillary 10/08/2024 7:57 AM EDT [facility] Blood Capillary blood specimen / Unknown 10/08/2024 7:55 AM EDT 10/08/2024 7:57 AM EDT us Wilda Carson MD LAB POINT OF CARE TE ST DOCKED DEVICE UNSOLICITED RESULTS Final Result Performing Organization Address City/[facility] Co de Phone Number [facility] [address] [place] [address] * (ABNORMAL) POCT glucose meter (10/08/2024 5:40 [...] Comment 10/08/2024 5:42 AM EDT [facility]ARE [facility] Hr Internship ID Bj Canales 10/08/2024 5:42 AM EDT HEALTHCARE LAB Device ID [id number] 10/08/2024 5:42 AM EDT [facility] Specimen Type POC Capillary 10/08/2024 5:42 AM EDT [facility] Blood Capillary blood specimen / Unknown 10/08/2024 5:40 AM EDT 10/08/2024 5:42 AM EDT us Wilda Carson MD LAB POINT OF CARE TE ST DOCKED DEVICE UNSOLICITED RESULTS Final Result Performing Organization Address City/[facility]/ZIP Co de Phone Number [facility] [address] [place] [address] * (ABNORMAL) Hemoglobin A1c (10/08/2024 4:59 AM [...] Adults <6.0% Children and Adolescents <7.5% Source: [place] [employer]. Standards of medical care in diabetes,2017. Diabetes Care.2017:40 (suppl 1):S1-S135. us Wilda Carson MD LAB BLOOD ORDERABLES Final Res ult Performing Organization Address City/[facility]/ZIP Co de Phone Number [facility] [address] [place] [address] * Phosphorus, Plasma (10/08/2024 4:59 AM EDT) Phosphorus, Plasma 3.8 2.5 - 4.5 mg/dL 10/08/2024 6:00 AM EDT [facility] Blood Venous blood specimen / Unknown Venipuncture / Unknown 10/08/2024 4:59 AM EDT 10/08/2024 5:16 AM EDT us Wilda Carson MD LAB BLOOD ORDERABLES Final Res ult Performing Organization Address [facility] Co de Phone Number [facility] [address] [place] [address] * (ABNORMAL) Magnesium, Plasma (10/08/2024 4:59 AM EDT) Magnesium, Plasma 1.7(L) 1.9 - 2.4 mg/dL 10/08/2024 6:00 AM EDT [facility] Blood Venous blood specimen / Unknown Venipuncture / Unknown 10/08/2024 4:59 AM EDT 10/08/2024 5:16 AM EDT us Wilda Carson MD LAB BLOOD ORDERABLES Final Res ult Performing Organization Address City/[facility] Co de Phone Number [facility] [address] [place] [address] * (ABNORMAL) CBC W/O Differential (10/08/2024 4:59 AM EDT) [facility] Signature WBC Count 9.53 3.70 - 10.30 [...] ult [facility] [address] [place] [address] * (ABNORMAL) Basic Metabolic Panel, Plasma (10/08/2024 [...] MD LAB BLOOD ORDERABLES Final Res ult [facility] [address] [place] [address] * CT Abdomen Pelvis w IV Contrast [...] written report. Preliminary report signed by Fei Amarla MD on 10/08/2024 3:34 AM By electronically [...] ECG Atrial Rate 85 BPM MUSE ECG [place] Interval 168 ms MUSE ECG QRSD Interval 162 ms MUSE ECG QT Interval 442 ms MUSE ECG QTC Interval 525 ms MUSE ECG P [place] 16 degrees MUSE ECG R [place] -32 degrees MUSE ECG T Wave [place] 47 degrees MUSE ECG Diagnosis Normal sinus rhythm MUSE ECG Diagnosis Left axis deviation in the presence of LAFB MUSE ECG Diagnosis Right bundle branch block Bifascicular block MUSE ECG Diagnosis Minimal voltage criteria for LVH, may be normal variant ( R in aVL ) MUSE ECG Diagnosis Abnormal ECG MUSE ECG Diagnosis MUSE ECG Diagnosis Confirmed by Adarsh Pichardo ([id number]) on 10/08/2024 10:50:58 AM MUSE ECG 10/08/2024 [...] ORDERABLES Final Re sult Performing Organization Address City/[facility]/ZIP Co de Phone Number [facility] [address] [place] [address] * Hepatitis C Antibody - ED (10/08/2024 12:55 AM EDT) Hepatitis C Antibody Negative Negative 10/08/2024 2:16 AM EDT [facility] Blood Venous blood specimen / Unknown Venipuncture / Unknown 10/08/2024 12:55 AM EDT 10/08/2024 1:11 AM EDT us Mickie Jefferson MD LAB BLOOD ORDERABLES Final Re sult [facility] [address] [place] [address] * Type and screen (10/08/2024 12:55 AM [...] ORDERABLE S Final Result Performing Organization Address [facility] de Phone Number BLOOD BANK [address] [place] [address], [place] * (ABNORMAL) PT-INR (10/08/2024 12:55 AM [...] INR 2.5 to 3.5 Prevention of recurrent [place] INR 2.5 to 3.5 us Mickie Jefferson MD LAB BLOOD ORDERABLES Final Re sult Performing Organization Address [facility] Co de Phone Number [facility] [address] [place] [address] * (ABNORMAL) CBC w/diff (10/08/2024 12:55 AM [...] [facility] [address] [place] [address] * Lactic acid, venous (10/08/2024 12:55 AM EDT) Lactate, Venous, Whole Blood 1.1 0.5 - 2.2 mmol/L LAB HEMATOLOGY METHOD 10/08/2024 1:10 AM EDT [facility] Blood Venous blood specimen / Unknown Venipuncture / Unknown 10/08/2024 12:55 AM EDT 10/08/2024 1:07 AM EDT us Mickie Jefferson MD LAB BLOOD ORDERABLES Final Re sult Performing Organization Address City/[facility]/ZIP Co de Phone Number [facility] [address] [place] [address] * (ABNORMAL) Phosphorus (10/08/2024 12:55 AM EDT) Phosphorus, Plasma 4.6(H) 2.5 - 4.5 mg/dL 10/08/2024 1:37 AM EDT [facility] Blood Venous blood specimen / Unknown Venipuncture / Unknown 10/08/2024 12:55 AM EDT 10/08/2024 1:05 AM EDT us Mickie Jefferson MD LAB BLOOD ORDERABLES Final Re sult Performing Organization Address [facility] [place] [address] * Magnesium (10/08/2024 12:55 AM EDT) Magnesium, Plasma 1.9 1.9 - 2.4 mg/dL 10/08/2024 1:37 AM EDT [facility] Blood Venous blood specimen / Unknown Venipuncture / Unknown 10/08/2024 12:55 AM EDT 10/08/2024 1:05 AM EDT us Mickie Jefferson MD LAB BLOOD ORDERABLES Final Re sult Performing Organization Address [facility] Co de Phone Number [facility] [address] [place] [address] * (ABNORMAL) CMP (10/08/2024 12:55 AM EDT) [...] sult [facility] [address] [place] [address] documented in this encounter Visit Diagnoses Diagnosis [...] Prov ider: Jimbo Leavitt)[id number] (Stopped - Provider: Mcihell Campa RN)0745 (New Bag - Provider: Michell [...] documented as of this encounter Care Teams Steamboat Pilot Relationship Specialty Start Date End Date Tayo Jones MD [address] [place] [address] PCP - General 07/14/24 documented as of this encounter
--- NOTE | 2024-10-22 08:00 | CT_ITS ---
FINAL REPORT TECHNIQUE: Routine axial images were obtained from the lung apices to below the diaphragm following IV contrast administration. Individualized dose reduction techniques using automated exposure control or adjustment of the mA and/or kV according to the patient size were employed. CLINICAL HISTORY: colon cancer COMPARISON: 05/06/2024 FINDINGS: CT CHEST WITH CONTRAST: The ascending aorta measures 4.3 cm in diameter, was 4.[address] on the most recent [address]. No mediastinal or hilar adenopathy is noted. No pleural or pericardial effusions are present. There are several small parenchymal nodules again noted when compared with the prior CT. There is a 4 mm right lower lobe nodule seen on image #47 of series 2, that remains stable when compared to the prior exam. There is a 3 mm posterior nodule in the left lower lobe, best seen on image #61 of series 2, which is also stable when compared to the prior exam. No new nodules or infiltrates are identified. IMPRESSION: Stable nodules as described above, not significantly changed since the prior CT. Recommend follow-up CT of the chest in 12 months. Stable ascending aortic aneurysm, 4.3 cm in diameter. Reviewed, Interpreted and Dictated by Jj Nguyen MD Transcribed by Arminda Grimaldo Authenticated and [facility]
--- OUTSIDE RECORDS SUMMARY | 2024-10-22 08:10 | XMS_ITS | Encounter Summary ---
Author Organization [facility] Address [address] [place] [address] Care Team Providers Care Shift Nurse Manager Name Role Phone Tayo Jones MD Primary Care Provider [phone] Encounter Details Date Type Department Care Team (Late Contact Info) Description 05/31/2023 Orders Only External Location [address] [place] [address] Provider, External Social History Tobacco Use Types [...] Description 11/19/2024 8:40 AM EDT Appointment [facility] [address] [place] [address] 11/19/2024 11:15 AM EDT Office Visit [facility] Multidisciplinary Oncology Clinic [address] [place] [address] Farhad Castillo MD [address] [address] documented as of this encounter Procedures Procedure [...] on filedocumented in this encounter Care Teams Shift Nurse Manager Relationship Specialty Start Date End Date Taoy Jones MD [address] [id number] PCP - General 07/14/24 documented as of this encounter
--- OUTSIDE RECORDS SUMMARY | 2024-10-22 08:10 | XMS_ITS | Encounter Summary ---
Author Organization Healthcare Address [address] [place] [address] Care Team Providers Care Honey Grader And Blender Name Role Phone Tayo Jones MD Primary Care Provider [phone] Encounter Details Date Type Department Care Team ([facility] st Contact Info) Description 07/23/2024 Telephone [facility] Oncology [facility] [address] [place] [address] Farhad Castillo MD [address] [phone] Social History Tobacco Use Types Packs/Day Years [...] Message Reason for Call: Jamee calling from [facility] for Capreece I was able to transfer her call to [facility] Best contact number and optimal time of day to reach caller: Note: Please do not reply to this message. Follow-up communication and further actions as a result of this message need to be communicated with the patient directly, if the patient is not active onMyChart. If the patient is active on MyChart, they will receive notification of the communication/outcome via [employer]. documented in this encounter Plan of Treatment Upcoming Encounters Date Type Department Care Team (Late st Contact Info) Description 11/19/2024 8:40 AM EDT Appointment [facility] [address] [place] [address] 11/19/2024 11:15 AM EDT Office Visit [facility] Multidisciplinary Oncology Clinic [address] [place] [address] Farhad Castillo MD [address] [address] documented as of this encounter Visit Diagnoses Not on filedocumented in this encounter Additional Health Concerns Assessment Noted Time A fall risk assessment has been complete d for the patient 07/23/2024 8:54 AM EDT A Body Mass Index follow-up plan has been documented for the patient 07/24/2024 8:25 AM EDT documented as of this encounter Care Teams Honey Grader And Blender Relationship Specialty Start Date End Date Tayo Jones MD [address] [place] [address] PCP - General 07/14/24 documented as of this encounter
--- OUTSIDE RECORDS SUMMARY | 2024-10-22 08:10 | XMS_ITS | Encounter Summary ---
Author Organization [facility] Address [address] [place] [address] Care Team Providers Care Behavioral Therapist Name Role Phone Tayo Jones MD Primary Care Provider [phone] Encounter Details Date Type Department Care Team (Late Contact Info) Description 07/16/2024 Lab Requisition [facility] 800 [place] [address] Farhad Castillo MD [address] [address] Other acute appendicitis without perforation [...] Appointment [facility] [address]nd [place] [address] 11/19/2024 11:15 AM EDT Office Visit [facility] Multidisciplinary Oncology Clinic [address] [place] [address] Farhad Castillo MD [address] [address] documented as of this encounter Procedures Procedure Name Priority Date/Time Associated Diagnosis Comments SURGICAL PATHOLOGY CONSULT Routine 07/16/2024 1:13 PM EDT Other acute appendicitis without perforation or gangrene documented in this encounter Results * Surgical Pathology Consult (07/16/2024 1:13 PM EDT) Case Report Sugical Pathology Consult Case: [id number] Authorizing Provider: Farhad Castillo MD Collected: 07/16/2024 1313 Ordering Location: [facility] Lab Received: 07/16/2024 1313 Pathologist: Constance Murphy MD Specimen: Colon, [id number] 07/17/2024 1:08 PM EDT [facility] Final Diagnosis RIGHT COLON AND TERMINAL ILEUM, RIGHT HEMICOLECTOMY ([id number]; 11/09/2022): - 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 - TUMOR BUDDING SCORE: HIGH (10 OR GREATER). - NO TUMOR SEEN IN TWENTY ONE LYMPH NODES (0/21). 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 07/17/2024 1:08 PM EDT [facility] Clinical Information K35.890 - Other acute appendicitis without perforation or gangrene [ICD-10-CM] 07/17/2024 1:08 PM EDT [facility] Gross Description A. [id number] Received along with a corresponding pathology report from [facility] are 29 slides labeled outside case: [id number] collected on 11/09/2022. 07/17/2024 1:08 PM EDT [facility] Note: A resident was involved in the service. I attest I examined the relevant preparations for the specimens and confirmed the diagnosis or interpretation. 07/17/2024 1:08 PM EDT [facility] Tissue Colon structure / Unknown 07/16/2024 1:13 PM EDT 07/16/2024 1:13 PM EDT us Farhad Castillo MD LAB PATHOLOGY ORDERABLES F inal Result [facility] [address] [place] [address] documented in this encounter Visit Diagnoses Diagnosis Other acute appendicitis without perforation or gangrene documented in this encounter Care Teams Behavioral Therapist Relationship Specialty Start Date End Date Tayo Jones MD [address] [place] [address] PCP - General 07/14/24 documented as of this encounter
--- OUTSIDE RECORDS SUMMARY | 2024-10-22 08:10 | XMS_ITS | Encounter Summary ---
Author Organization Healthcare Address [address] [id number] Care Team Providers Care Strategic Partnership Manager Name Role Phone Tayo Jones MD Primary Care Provider [phone] Encounter Details Date Type Department Care Team (Late st Contact Info) Description 07/27/2024 Telephone [facility] [address] [place] [address] Farhad Castillo MD [address] [address] Social History Tobacco Use Types Packs/Day Years [...] optimal time of day to reach caller: [phone] ext [phone] Note: Please do not reply [...] Info) Description 11/19/2024 8:40 AM EDT Appointment [facility] CT [address] [place] [address] 11/19/2024 11:15 AM EDT Office Visit [facility] Multidisciplinary Oncology Clinic [address] [place] [address] Farhad Castillo MD [address] [address] documented as of this encounter Visit Diagnoses Not on filedocumented in this encounter Additional Health Concerns Assessment Noted Time A fall risk assessment has been complete d for the patient 07/23/2024 8:54 AM EDT A Body Mass Index follow-up plan has been documented for the patient 07/24/2024 8:25 AM EDT documented as of this encounter Care Teams Strategic Partnership Manager Relationship Specialty Start Date End Date Tayo Jones MD [address] [place] [address] PCP - General 07/14/24 documented as of this encounter
--- OUTSIDE RECORDS SUMMARY | 2024-10-22 08:10 | XMS_ITS | Encounter Summary ---
Author Organization Healthcare Address [address] [place] [address] Care Team Providers Care Technical Account Representative Name Role Phone Tayo Jones MD Primary Care Provider [phone] Encounter Details Date Type Department Care Team (Late Contact Info) Description 06/15/2024 Orders Only External Location 800 [place] [address] Provider, External Social History Tobacco Use Types [...] Info) Description 11/19/2024 8:40 AM EDT Appointment [facility] CT [address]nd [place] [address] 11/19/2024 11:15 AM EDT Office Visit [facility] Multidisciplinary Oncology Clinic [address] [place] [address] Farhad Castillo MD [address] [address] documented as of this encounter Procedures Procedure [...] on filedocumented in this encounter Care Teams Technical Account Representative Relationship Specialty Start Date End Date Tayo Jones MD [address] [place] [address] PCP - General 07/14/24 documented as of this encounter
--- OUTSIDE RECORDS SUMMARY | 2024-10-22 08:10 | XMS_ITS | Encounter Summary ---
Author Organization Healthcare Address [address] [id number] Care Team Providers Care Pole Truck Driver Name Role Phone Tayo Jones MD Primary Care Provider [phone] Encounter Details Date Type Department Care Team (Late st Contact Info) Description 07/27/2024 Telephone [facility] [address] [place] [address] Farhad Castillo MD [address] [address] Social History Tobacco Use Types Packs/Day Years [...] Message Reason for Call: Kim calling from [facility] to speak to Audrey. Best contact number and optimal time of day to reach caller: [phone] ext [phone] Note: Please do not reply to this message. Follow-up communication and further actions as a result of this message need to be communicated with the patient directly, if the patient is not active onMyChart. If the patient is active on MyChart, they will receive notification of the communication/outcome via [email or web address]hart. documented in this encounter Plan of Treatment Upcoming Encounters Date Type Department Care Team (Late st Contact Info) Description 11/19/2024 8:40 AM EDT Appointment [facility] [address]nd [place] [address] 11/19/2024 11:15 AM EDT Office Visit [facility] Multidisciplinary Oncology Clinic [address] [place] [address] Farhad Castillo MD [address] [address] documented as of this encounter Visit Diagnoses Not on filedocumented in this encounter Additional Health Concerns Assessment Noted Time A fall risk assessment has been complete d for the patient 07/23/2024 8:54 AM EDT A Body Mass Index follow-up plan has been documented for the patient 07/24/2024 8:25 AM EDT documented as of this encounter Care Teams Pole Truck Driver Relationship Specialty Start Date End Date Tayo Jones MD [address] [place] [address] PCP - General 07/14/24 documented as of this encounter
--- OUTSIDE RECORDS SUMMARY | 2024-10-22 08:10 | XMS_ITS | Encounter Summary ---
Author Organization [facility] Address [address] [place] [address] Care Team Providers Care Display Director Name Role Phone Tayo Jones MD Primary Care Provider [phone] Encounter Details Date Type Department Care Team (Late Contact Info) Description 02/18/2023 Orders Only External Location 800 [place] [address] Provider, External Social History Tobacco Use Types [...] Info) Description 11/19/2024 8:40 AM EDT Appointment [facility] CT [address]nd [place] [address] 11/19/2024 11:15 AM EDT Office Visit [facility] Multidisciplinary Oncology Clinic [address] [place] [address] Farhad Castillo MD [address] [phone] documented as of this encounter Procedures Procedure [...] on filedocumented in this encounter Care Teams Display Director Relationship Specialty Start Date End Date Tayo Jones MD [address] [place] [address] PCP - General 07/14/24 documented as of this encounter
--- OUTSIDE RECORDS SUMMARY | 2024-10-22 08:11 | XMS_ITS | Encounter Summary ---
Author Organization Healthcare Address [address] [place] [address] Care Team Providers Care Head Gauge Unit Operator Name Role Phone Tayo Jones MD Primary Care Provider [phone] Encounter Details Date Type Department Care Team (Late Contact Info) Description 01/15/2023 Orders Only External Location 800 [place] [address] Sue Pope MD [address] [place] [id number] Social History Tobacco Use Types Packs/Day Years [...] Info) Description 11/19/2024 8:40 AM EDT Appointment [facility] [address] 2[address] [place] [address] 11/19/2024 11:15 AM EDT Office Visit [facility] Multidisciplinary Oncology Clinic [address] [place] [address] Farhad Castillo MD [address] [address] documented as of this encounter Procedures Procedure [...] on filedocumented in this encounter Care Teams Head Gauge Unit Operator Relationship Specialty Start Date End Date Tayo Jones MD [address] [id number] PCP - General 07/14/24 documented as of this encounter
--- OUTSIDE RECORDS SUMMARY | 2024-10-22 08:11 | XMS_ITS | Encounter Summary ---
Author Organization Healthcare Address [address] [place] [address] Care Team Providers Care Medtronics Technician Name Role Phone Tayo Jones MD Primary Care Provider [phone] Encounter Details Date Type Department Care Team (Late st Contact Info) Description 10/07/2024 Orders Only External Location 800 [place] [address] Provider, External Social History Tobacco Use Types [...] any time in the past 12 m [facility], were you homeless or living in a fci (including now)? No 10/09/2024 Utilities Answer Date [...] [facility] CT [address]nd [place] [address] 11/19/2024 11:15 AM EDT Office Visit [facility] Multidisciplinary Oncology Clinic [address] [place] [address] Farhad Castillo MD [address] [place] [address] documented as of this encounter Procedures Procedure [...] documented as of this encounter Care Teams Medtronics Technician Relationship Specialty Start Date End Date Tayo Jones MD [address] [place] [address] PCP - General 07/14/24 documented as of this encounter
--- OUTSIDE RECORDS SUMMARY | 2024-10-22 08:11 | XMS_ITS | Encounter Summary ---
Author Organization [facility] Address [address] [place] [address] Care Team Providers Care Helicopter Dispatcher Name Role Phone Tayo Jones MD Primary Care Provider [phone] Encounter Details Date Type Department Care Team [...] any time in the past 12 m [facility], were you homeless or living in [...] Info) Description 11/19/2024 8:40 AM EDT Appointment [facility] CT [address]nd [place] [address] 11/19/2024 11:15 AM EDT Office Visit [facility] Multidisciplinary Oncology Clinic [address] [place] [address] Farhad Castillo MD [address] [phone] documented as of this encounter Visit Diagnoses Not on filedocumented in this encounter Additional Health Concerns Assessment Noted Time A fall risk assessment has been complete d for the patient 07/23/2024 8:54 AM EDT A Body Mass Index follow-up plan has been documented for the patient 10/09/2024 3:15 PM EDT documented as of this encounter Care Teams Helicopter Dispatcher Relationship Specialty Start Date End Date Tayo Jones MD [address] [place] [address] PCP - General 07/14/24 documented as of this encounter
--- OUTSIDE RECORDS SUMMARY | 2024-10-22 08:11 | XMS_ITS | Clinical Summary ---
Author Organization [facility] Address [address] [place] [address] Care Team Providers Care Events Director Name Role Phone Jeremy Gil MD Unavailable [phone] Andres Alcantara DPM Unavailable [phone] Grant Fletcher MD Unavailable [phone] Niko Cueva MD Unavailable None, None Primary Care Provider UnavailGm Vigil DPM Unavailable Reina Byrd NP Unavailable Unavailable Allergies No known active allergies Medications Insulin Glargine (Lantus) 100 unit/mL (3 mL) Solostar INPNIndications :Type 2 diabetes mellitus with hyperglycemia, with long-term current use of insulin ([facility]) 16 Units by Subcutaneous route every [...] hyperglycemia, with long-term current use of insulin ([facility]) PVD (peripheral vascular disease) ([facility]) Other osteomyelitis of left foot Social [...] Advance Directives For more information, please contact: [phone] * Full Code (Latest Code Status on File) Date Activated Date Inactivated Comments 08/19/2020 3:05 AM No automated ch est compression devices for VAD Patients Care Teams Events Director Relationship Specialty Start Date End Date None, None [address] [facility] [place] [address] PCP - General 10/26/20 Jeremy Gil MD [address] [facility] Room [address] [place] [address] Internal Medicine 08/19/20 Andres Alcantara DPM [address] [facility] [place] [address] Resident Podiatry 08/22/20 Grant Fletcher MD [address] [place] [address] [address] [place] [address] Infectious Diseases 09/08/20 Niko Cueva MD [address] [place] [address] [address] [place] [address] Vascular Surgery 09/16/20 Gm Flor DPM [address] [place] [address] [place] [address] Podiatry 11/01/20 Reina Byrd NP [address] [place] [address] [place] [address] Nurse Practitioner Vascular Surgery 11/30/20
--- OUTSIDE RECORDS SUMMARY | 2024-10-22 08:11 | XMS_ITS ---
Author Organization [facility] Address [address] [place] [address] Care Team Providers Care Diet Consultant Name Role Phone Tayo Jones MD Primary Care Provider [phone] Active Problems Problem Noted Date Diagnosed Date [...]
--- OUTSIDE RECORDS SUMMARY | 2024-10-22 08:11 | XMS_ITS | Encounter Summary ---
Author Organization [facility] Address [address] [place] [address] Care Team Providers Care Ribbon Weaver Name Role Phone Tayo Jones MD Primary Care Provider [phone] Encounter Details Date Type Department Care Team (Late Contact Info) Description 01/15/2023 Orders Only External Location 800 [place] [address] Provider, External Social History Tobacco Use Types [...] Info) Description 11/19/2024 8:40 AM EDT Appointment [facility] CT [address] [place] [address] 11/19/2024 11:15 AM EDT Office Visit [facility] Multidisciplinary Oncology Clinic [address] [place] [address] Farhad Castillo MD [address] [address] documented as of this encounter Procedures Procedure [...] on filedocumented in this encounter Care Teams Ribbon Weaver Relationship Specialty Start Date End Date Tayo Jones MD [address] [phone] PCP - General 07/14/24 documented as of this encounter
--- OUTSIDE RECORDS SUMMARY | 2024-10-22 08:11 | XMS_ITS | Encounter Summary ---
Author Organization [facility] Address [address] [place] [address] Care Team Providers Care Media Consultant Outside Sales Name Role Phone Tayo Jones MD Primary Care Provider [phone] Encounter Details Date Type Department Care Team [...] were you homeless or living in a skilled nursing (including now)? No 10/09/2024 Utilities Answer Date [...] Info) Description 11/19/2024 8:40 AM EDT Appointment [facility] [address] 2nd [place] [address] 11/19/2024 11:15 AM EDT Office Visit [facility] Multidisciplinary Oncology Clinic [address] [place] [address] Farhad Castillo MD [address] [address] documented as of this encounter Visit Diagnoses Not on filedocumented in this encounter Additional Health Concerns Assessment Noted Time A fall risk assessment has been complete d for the patient 07/23/2024 8:54 AM EDT A Body Mass Index follow-up plan has been documented for the patient 10/09/2024 3:15 PM EDT documented as of this encounter Care Teams Media Consultant Outside Sales Relationship Specialty Start Date End Date Tayo Jones MD [address] [place] [address] PCP - General 07/14/24 documented as of this encounter
--- OUTSIDE RECORDS SUMMARY | 2024-10-22 08:11 | XMS_ITS | Clinical Summary ---
Author Organization [facility] Address [address] [place] [address] Care Team Providers Care Junior Financial Analyst Name Role Phone Tayo Jones MD Primary Care Provider [phone] Allergies No known active allergies Medications carvedilol [...] Hospital Encounter [facility] Emergency Department [address] [place] [address] Mickie Jefferson MD Hourigan, Jon S, MD Small bowel obstruction (CMS/HCC) (Primary Dx); Abdominal pain, generalized Discharge Disposition: Home or Self Care 10/08/2024 Travel 10/07/2024 Orders Only External Location [address] [place] [address] Provider, External 08/03/2024 Orders Only [facility] Multid[facility] Oncology [facility] [address] [place] [address] Farhad Castillo MD Metastatic colon cancer to liver (CMS/HCC) (Primary Dx) 07/31/2024 7:30 AM EDT - 07/31/2024 9:00 AM EDT Surgery [facility] RO[facility] [address] [place] [address] Farhad Castillo MD INSERTION, TUNNELED CENTRAL VENOUS DEVICE, WITH PORT [99091 (CPT )] 07/31/2024 7:29 AM EDT Anesthesia Event [facility] [address] [place] [address] Wilian Jefferson MD Latham, Jeremy J, MD 07/31/2024 5:40 AM EDT - 07/31/2024 10:10 AM EDT Hospital Encounter [facility] [address] [place] [address] Farhad Castillo MD Metastatic colon cancer to liver (CMS/HCC) [C18.9, C78.7] (Primary Dx) Discharge Disposition: Home or Self Care 07/31/2024 Travel 07/29/2024 Telephone [facility] [address] [place] [address] Farhad Castillo MD 07/27/2024 10:00 AM EDT Pre-Admission Testing [facility]op [facility] [address], [address] [place] [address] 07/27/2024 Telephone [facility] [address] [place] [address] Farhad Castillo MD 07/27/2024 Telephone [facility] [address] [place] [address] Farhad Castillo MD 07/27/2024 Travel 07/23/2024 11:10 AM EDT - 07/23/2024 11:59 PM EDT Hospital Encounter [facility] [address]nd [place] [address] Metastatic colon cancer to liver (CMS/HCC) Discharge Disposition: Home or Self Care 07/23/2024 8:30 AM EDT Office Visit [facility] [address] [place] [address] Farhad Castillo MD Metastatic colon cancer to liver (CMS/HCC) (Primary Dx) 07/23/2024 Telephone [facility] [address] [place] [address] Farhad Castillo MD 07/23/2024 Travel from Last [...] any time in the past 12 m [facility], were you homeless or living in a correction (including now)? No 10/09/2024 Utilities Answer Date [...] Appointment [facility] [address] [place] [address] 11/19/2024 11:15 AM EDT Office Visit [facility] Multidisciplinary Oncology Clinic [address] [place] [address] Farhad Castillo MD [address] [address] Health Maintenance Due Date Last Done Comments [facility]-Infant/Child/Adol SDOH Screenings 1965 Diabetes: Dental Exam 1974 [facility]-DTaP,Tdap,and Td Vaccines (1 - Tdap) 1983 [facility]-Hepatitis A Vaccines (1 of 2 - Risk 2-dose series) 1983 [facility]-Zoster Vaccines (1 of 2) 1983 [id number] Vaccine ( - season) 2023 01/15/2022, 03/28/2021, [...] this topic Medical Devices Implanted Type Area Patient Relations Coordinator Device Identifier Shelf Expiration Date Model / Serial / Lot Port Clearvue Power 8fr - S. - [id number] Implanted:Qty : 1 on 07/31/2024 by Farhad Castillo MD at [facility] Other Medication Pump Left: Chest [employer]-[id number] 07/13/2025 [id number] / . / [id number] Procedures Procedure Name Priority Date/Time Associated Diagnosis [...] ANESTHESIA PLACEHOLDER Routine 07/31/2024 7:33 AM EDT NE AN ELECTIVE ENDOTRACHEAL AIRWAY Routine 07/31/2024 7:33 AM EDT NE INSERT TUNNELED CV CATH WITH PORT 07/31/2024 [...] Comment 10/09/2024 12:12 PM EDT [facility] Environmental Health Safety Manager ID Julia Wisdom 025 12:12 PM EDT [facility] Device ID [id number] 10/09/2024 12:12 PM EDT [facility] Specimen Type POC Capillary 10/09/2024 12:12 PM EDT [facility] Blood Capillary blood specimen / Unknown 10/09/2024 12:08 PM EDT 10/09/2024 12:12 PM EDT us Jj Carson MD LAB POINT OF CARE TE ST DOCKED DEVICE UNSOLICITED RESULTS Final Result [facility] [address] [place] [address] * XR Abdomen 1 View (10/09/2024 9:41 [...] LAB HEMATOLOGY METHOD 10/09/2024 4:52 AM EDT [facility] RBC Count 4.07(L) 4.60 - 6.10 10*6/uL LAB HEMATOLOGY METHOD 10/09/2024 4:52 AM EDT [facility] HGB 13.3(L) 13.7 - 17.5 g/dL LAB HEMATOLOGY METHOD 10/09/2024 4:52 AM EDT [facility] HCT 37.0(L) 40.0 - 51.0 % LAB HEMATOLOGY METHOD 10/09/2024 4:52 AM EDT [facility] Platelet Count 312 155 - 369 10*3/uL LAB HEMATOLOGY METHOD 10/09/2024 4:52 AM EDT [facility] MCV 91 79 - 98 fL LAB HEMATOLOGY METHOD 10/09/2024 4:52 AM EDT [facility] MCH 32.7(H) 26.0 - 32.0 pg LAB HEMATOLOGY METHOD 10/09/2024 4:52 AM EDT [facility] MCHC 35.9(H) 30.7 - 35.5 g/dL LAB HEMATOLOGY METHOD 10/09/2024 4:52 AM EDT [facility] RDW 13.5 11.5 - 14.5 % LAB HEMATOLOGY METHOD 10/09/2024 4:52 AM EDT [facility] MPV 9.1 8.8 - 12.5 fL LAB HEMATOLOGY METHOD 10/09/2024 4:52 AM EDT [facility] nRBC 0.0 <=0.0 per 100 WBCs LAB HEMATOLOGY METHOD 10/09/2024 4:52 AM EDT [facility] Blood Venous blood specimen / Unknown Venipuncture / Unknown 10/09/2024 4:28 AM EDT 10/09/2024 4:50 AM EDT Eva Barnes APRN, DNP LAB BLOOD ORDERABLE S Final Result [facility] [address] [place] [address] * (ABNORMAL) Basic metabolic panel (10/09/2024 4:28 AM EDT) Only the most recent of2 resultswithin the time period is included. Glucose, Plasma 286(H) 74 - 99 mg/dL 10/09/2024 5:48 AM EDT [facility] BUN, Plasma 36(H) 8 - 23 mg/dL 10/09/2024 5:48 AM EDT [facility] Creatinine, Plasma 1.45(H) 0.70 - 1.20 mg/dL 10/09/2024 5:48 AM EDT [facility] BUN/Creatinine Ratio 25 10/09/2024 5:48 AM EDT [facility] Sodium, Plasma 131(L) 136 - 145 mmol/L 10/09/2024 5:48 AM EDT [facility] Potassium, Plasma 3.4(L) 3.6 - 4.9 mmol/L 10/09/2024 5:48 AM EDT [facility] Comment:Hemolyzed, result ma y be falsely increased. Chloride, Plasma 99 97 - 107 mmol/L 10/09/2024 5:48 AM EDT [facility] CO2, Plasma 17(L) 22 - 29 mmol/L 10/09/2024 5:48 AM EDT [facility] Anion Gap 15 6 - 16 mmol/L 10/09/2024 5:48 AM EDT [facility] Total Calcium, Plasma 8.8(L) 8.9 - 10.2 mg/dL 10/09/2024 5:48 AM EDT [facility] eGFRcr 55.2 mL/min/1.7 3m*2 10/09/2024 5:48 AM EDT [facility] Comment:Reported eGFRcr in m L/min/1.73m2 is based the CKD-EPI 2020 equation that does not use a race coefficient. Blood Venous blood specimen / Unknown Venipuncture / Unknown 10/09/2024 4:28 AM EDT 10/09/2024 5:03 AM EDT Eva Barnes [place], DNP LAB BLOOD ORDERABLE S Final Result [facility] [address] [place] [address] * XR Gastrograffin Challenge (10/09/2024 1:17 AM [...] - 4.5 mg/dL 10/08/2024 6:00 AM EDT [facility] Blood Venous blood specimen / Unknown Venipuncture / Unknown 10/08/2024 4:59 AM EDT 10/08/2024 5:16 AM EDT Jj Carson MD LAB BLOOD ORDERABLES Final Res ult [facility] [address] [place] [address] * (ABNORMAL) Magnesium, Plasma (10/08/2024 4:59 AM EDT) Only the most recent of2 resultswithin the time period is included. Magnesium, Plasma 1.7(L) 1.9 - 2.4 mg/dL 10/08/2024 6:00 AM EDT [facility] Blood Venous blood specimen / Unknown Venipuncture / Unknown 10/08/2024 4:59 AM EDT 10/08/2024 5:16 AM EDT Jj Carson MD LAB BLOOD ORDERABLES Final Res ult [facility] [address] [place] [address] * (ABNORMAL) Hemoglobin A1c (10/08/2024 4:59 AM EDT) Only the most recent of2 resultswithin the time period is included. Hemoglobin A1c 7.6(H) <5.7 % 10/08/2024 11:37 AM EDT [facility] Blood Venous blood specimen / Unknown Venipuncture / Unknown 10/08/2024 4:59 AM EDT 10/08/2024 5:01 AM EDT Narrative [facility] - 10/08/2024 11:37 AM EDT HA1C Interpretive Data: Diagnosis of Diabetes: Diabetic > or = 6.5% Pre-diabetic 5.7 to 6.4% Non-diabetic < or = 5.6% Glycemic Targets for Type I and Type II Diabetics: Non- Adults <7.0% Adults <6.0% Children and Adolescents <7.5% Source: [place] [employer]. Standards of medical care in diabetes,2017. Diabetes Care.2017:40 (suppl 1):S1-S135. us Jj Carson MD LAB BLOOD ORDERABLES Final Res ult [facility] [address] [place] [address] * CT Abdomen Pelvis w IV Contrast [...] ECG Atrial Rate 85 BPM MUSE ECG NE Interval 168 ms MUSE ECG QRSD Interval 162 ms MUSE ECG QT Interval 442 ms MUSE ECG QTC Interval 525 ms MUSE ECG P [place] 16 degrees MUSE ECG R [place] -32 degrees MUSE ECG T Wave [place] 47 degrees MUSE ECG Diagnosis Normal sinus rhythm MUSE ECG Diagnosis Left axis deviation in the presence of LAFB MUSE ECG Diagnosis Right bundle branch block Bifascicular block MUSE ECG Diagnosis Minimal voltage criteria for LVH, may be normal variant ( R in aVL ) MUSE ECG Diagnosis Abnormal ECG MUSE ECG Diagnosis MUSE ECG Diagnosis Confirmed by Adarsh Pichardo ([id number]) on 10/08/2024 10:50:58 AM MUSE ECG 10/08/2024 12:5 5 AM EDT 10/08/2024 10:50 AM EDT us Mickie Jefferson MD ECG ORDERABLES Final Result MUSE ECG * ED HIV 1/2 Antibody/Antigen Screen w/Reflex to HIV 1/2 Differentiation (10/08/2024 12:55 AM EDT) HIV 1 & 2 Antibody/Antigen Screen Non Reactive Non Reactive 10/08/2024 2:00 AM EDT [facility] Comment:Screening for HIV 1 & 2 antibodies, and P24 antigen is NONREACTIVE. No confirmatory testing is required. Blood Venous blood specimen / Unknown Venipuncture / Unknown 10/08/2024 12:55 AM EDT 10/08/2024 1:11 AM EDT us Mickie Jefferson MD LAB BLOOD ORDERABLES Final Re sult [facility] [address] [place] [address] * Lactic acid, venous (10/08/2024 12:55 AM EDT) Lactate, Venous, Whole Blood 1.1 0.5 - 2.2 mmol/L LAB HEMATOLOGY METHOD 10/08/2024 1:10 AM EDT [facility] Blood Venous blood specimen / Unknown Venipuncture / Unknown 10/08/2024 12:55 AM EDT 10/08/2024 1:07 AM EDT us Mickie Jefferson MD LAB BLOOD ORDERABLES Final Re sult Performing Organization Address [facility] Co de Phone Number [facility] [address] [place] [address] * Hepatitis C Antibody - ED (10/08/2024 12:55 AM EDT) [facility] Hepatitis C Antibody Negative Negative 10/08/2024 2:16 AM EDT [facility] Blood Venous blood specimen / Unknown Venipuncture / Unknown 10/08/2024 12:55 AM EDT 10/08/2024 1:11 AM EDT us Mickie Jefferson MD LAB BLOOD ORDERABLES Final Re sult Performing Organization Address [facility] de Phone Number [facility] [address] [place] [address] * (ABNORMAL) PT-INR (10/08/2024 12:55 AM EDT) Only the most recent of2 resultswithin the time period is included. [facility] Prothrombin Time 14.7(H) 12.0 - 14.3 sec 10/08/2024 1:27 AM EDT [facility] INR 1.2(H) 0.9 - 1.1 10/08/2024 1:27 AM EDT [facility] Blood Venous blood specimen / Unknown Venipuncture / Unknown 10/08/2024 12:55 AM EDT 10/08/2024 1:05 AM EDT Narrative [facility] - 10/08/2024 1:27 AM EDT [...] ORDERABLES Final Re sult Performing Organization Address [facility] Co de Phone Number [facility] [address] [place] [address] * (ABNORMAL) CBC w/diff (10/08/2024 12:55 AM EDT) [facility] Signature WBC Count 11.32(H) 3.70 - 10.30 10*3/uL LAB HEMATOLOGY METHOD 10/08/2024 1:09 AM EDT [facility] RBC Count 4.20(L) 4.60 - 6.10 10*6/uL LAB HEMATOLOGY METHOD 10/08/2024 1:09 AM EDT [facility] HGB 13.9 13.7 - 17.5 g/dL LAB HEMATOLOGY METHOD 10/08/2024 1:09 AM EDT [facility] HCT 38.0(L) 40.0 - 51.0 % LAB HEMATOLOGY METHOD 10/08/2024 1:09 AM EDT [facility] Platelet Count 293 155 - 369 10*3/uL LAB HEMATOLOGY METHOD 10/08/2024 1:09 AM EDT [facility] MCV 91 79 - 98 fL LAB HEMATOLOGY METHOD 10/08/2024 1:09 AM EDT [facility] MCH 33.1(H) 26.0 - 32.0 pg LAB HEMATOLOGY METHOD 10/08/2024 1:09 AM EDT [facility] MCHC 36.6(H) 30.7 - 35.5 g/dL LAB HEMATOLOGY METHOD 10/08/2024 1:09 AM EDT [facility] RDW 13.5 11.5 - 14.5 % LAB HEMATOLOGY METHOD 10/08/2024 1:09 AM EDT [facility] MPV 10.0 8.8 - 12.5 fL LAB HEMATOLOGY METHOD 10/08/2024 1:09 AM EDT [facility] nRBC 0.0 <=0.0 per 100 WBCs LAB HEMATOLOGY METHOD 10/08/2024 1:09 AM EDT [facility] Differential Type Automated LAB HEMATOLOGY METHOD 10/08/2024 1:09 AM EDT [facility] Neutrophils % 70 % LAB HEMATOLOGY METHOD 10/08/2024 1:09 AM EDT [facility] Lymphocytes % 10 % LAB HEMATOLOGY METHOD 10/08/2024 1:09 AM EDT [facility] Monocytes % 18 % LAB HEMATOLOGY METHOD 10/08/2024 1:09 AM EDT [facility] Eosinophils % 0 % LAB HEMATOLOGY METHOD 10/08/2024 1:09 AM EDT [facility] Basophils % 1 % LAB HEMATOLOGY METHOD 10/08/2024 1:09 AM EDT [facility] Immature Granulocytes % 1 % LAB HEMATOLOGY METHOD 10/08/2024 1:09 AM EDT [facility] Neutrophils Absolute 7.97(H) 1.60 - 6.10 10*3/uL LAB HEMATOLOGY METHOD 10/08/2024 1:09 AM EDT [facility] Lymphocytes Absolute 1.17(L) 1.20 - 3.90 10*3/uL LAB HEMATOLOGY METHOD 10/08/2024 1:09 AM EDT [facility] Monocytes Absolute 2.01(H) 0.30 - 0.90 10*3/uL LAB HEMATOLOGY METHOD 10/08/2024 1:09 AM EDT [facility] Eosinophils Absolute 0.02 0.00 - 0.50 10*3/uL LAB HEMATOLOGY METHOD 10/08/2024 1:09 AM EDT [facility] Basophils Absolute 0.07 0.00 - 0.10 10*3/uL LAB HEMATOLOGY METHOD 10/08/2024 1:09 AM EDT [facility] Immature Granulocytes Absolute 0.08(H) 0.00 - 0.06 10*3/uL LAB HEMATOLOGY METHOD 10/08/2024 1:09 AM EDT [facility] Blood Venous blood specimen / Unknown Venipuncture / Unknown 10/08/2024 12:55 AM EDT 10/08/2024 1:05 AM EDT Narrative [facility] - 10/08/2024 1:09 AM EDT Therapeutic decision making should be based on absolute values, rather than percentages. us Mickie Jefferson MD LAB BLOOD ORDERABLES Final Re sult [facility] [address] [place] [address] * Type and screen (10/08/2024 12:55 AM [...] ORDERABLE S Final Result BLOOD BANK [address] [place] [address], * (ABNORMAL) CMP (10/08/2024 12:55 AM EDT) Only the most recent of2 resultswithin the time period is included. Glucose, Plasma 235(H) 74 - 99 mg/dL 10/08/2024 1:37 AM EDT [facility] BUN, Plasma 44(H) 8 - 23 mg/dL 10/08/2024 1:37 AM EDT [facility] Creatinine, Plasma 1.52(H) 0.70 - 1.20 mg/dL 10/08/2024 1:37 AM EDT [facility] BUN/Creatinine Ratio 29 10/08/2024 1:37 AM EDT [facility] Sodium, Plasma 125(L) 136 - 145 mmol/L 10/08/2024 1:37 AM EDT [facility] Potassium, Plasma 3.8 3.6 - 4.9 mmol/L 10/08/2024 1:37 AM EDT [facility] Chloride, Plasma 93(L) 97 - 107 mmol/L 10/08/2024 1:37 AM EDT [facility] CO2, Plasma 14(L) 22 - 29 mmol/L 10/08/2024 1:37 AM EDT [facility] Anion Gap 18(H) 6 - 16 mmol/L 10/08/2024 1:37 AM EDT [facility] Total Calcium, Plasma 9.2 8.9 - 10.2 mg/dL 10/08/2024 1:37 AM EDT [facility] Total Protein 7.3 6.3 - 7.9 g/dL 10/08/2024 1:37 AM EDT [facility] Albumin, Plasma 3.9 3.5 - 5.2 g/dL 10/08/2024 1:37 AM EDT [facility] AST, Plasma 24 10 - 50 U/L 10/08/2024 1:37 AM EDT [facility] Comment:Hemolyzed, result ma y be falsely increased. ALT, Plasma 12 10 - 50 U/L 10/08/2024 1:37 AM EDT [facility] Alkaline Phosphatase, Plasma 89 40 - 115 U/L 10/08/2024 1:37 AM EDT [facility] Total Bilirubin, Plasma 0.8 0.2 - 1.1 mg/dL 10/08/2024 1:37 AM EDT [facility] eGFRcr 52.1 mL/min/1.7 3m*2 10/08/2024 1:37 AM EDT [facility] Comment:Reported eGFRcr in m L/min/1.73m2 is based the CKD-EPI 2020 equation that does not use a race coefficient. Blood Venous blood specimen / Unknown Venipuncture / Unknown 10/08/2024 12:55 AM EDT 10/08/2024 1:05 AM EDT us Mickie Jefferson MD LAB BLOOD ORDERABLES Final Re sult [facility] [address] [place] [address] * CT OUTSIDE IMAGES (10/07/2024 7:58 PM [...] IMG FLUOROSCOPY PROCEDURES Final Result IMAGING * NE AN ELECTIVE ENDOTRACHEAL AIRWAY, PB ANESTHESIA PLACEHOLDER [...] Total DLP (Dose-Length Product): 2037.69 mGy.cm (accession [id number]), 2037.69 mGy.cm (accession [id number]) Please note: The reported value represents the [...] Total DLP (Dose-Length Product): 2037.69 mGy.cm (accession [id number]),2037.69 mGy.cm (accession [id number]) Please note: The reported valuerepresents the total [...] LAB COAGULATION METHOD 07/23/2024 11:15 AM EDT [facility] Blood Venous blood specimen / Unknown Venipuncture / Unknown 07/23/2024 10:36 AM EDT 07/23/2024 10:54 AM EDT Farhad Castillo MD LAB BLOOD ORDERABLES Final Result Performing Organization Address City/[facility] Co de Phone Number [facility] [address] [place] [address] * Prealbumin, Plasma (07/23/2024 10:36 AM EDT) Prealbumin, Plasma 22.6 20.0 - 41.0 mg/dL 07/23/2024 11:29 AM EDT [facility] Blood Venous blood specimen / Unknown Venipuncture / Unknown 07/23/2024 10:36 AM EDT 07/23/2024 10:54 AM EDT Farhad Castillo MD LAB BLOOD ORDERABLES Final Result Performing Organization Address [facility] de Phone Number [facility] [address] [place] [address] * (ABNORMAL) CEA, Serum (07/23/2024 10:36 AM EDT) Pathologist [facility] CEA, Serum 9.1(H) <4.0 ng/mL 07/23/2024 11:32 AM EDT [facility] Blood Venous blood specimen / Unknown Venipuncture / Unknown 07/23/2024 10:36 AM EDT 07/23/2024 10:54 AM EDT Narrative [facility] - 07/23/2024 11:32 AM EDT Normal range for smokers: < 5.5 ng/ml Normal range for non-smokers: <=4.0 ng/ml Performed by [employer] electrochemiluminescent immunoassay. Results obtained with different test methods or kits cannot be used interchangeably. Farhad Castillo MD LAB BLOOD ORDERABLES Final Result [facility] [address] [place] [address] from Last 3 Months Insurance [place]ICA[place] Advance Directives * Full Code (Latest Code Status on File) Date Activated Date Inactivated Comments 10/08/2024 4:28 AM 10/09/2024 5:43 PM Question Answer Comments I have reviewed the capacity from the link above and, if needed, have updated to appropriate status: Yes Care Teams Junior Financial Analyst Relationship Specialty Start Date End Date Tayo Jones MD [address] [place] [address] PCP - General 07/14/24
--- OUTSIDE RECORDS SUMMARY | 2024-10-22 08:11 | XMS_ITS | Encounter Summary ---
Author Organization [facility] Address [address] [place] [address] Care Team Providers Care Media Services Specialist Name Role Phone Tayo Jones MD Primary Care Provider [phone] Encounter Details Date Type Department Care Team (Late Contact Info) Description 05/06/2024 Orders Only External Location [address] [place] [address] Provider, External Social History Tobacco Use Types [...] Info) Description 11/19/2024 8:40 AM EDT Appointment [facility] [address] [place] [address] 11/19/2024 11:15 AM EDT Office Visit [facility] Multidisciplinary Oncology Clinic [address] [place] [address] Farhad Castillo MD [address] [phone] documented as of this encounter Procedures Procedure [...] on filedocumented in this encounter Care Teams Media Services Specialist Relationship Specialty Start Date End Date Tayo Jones MD [address] [phone] PCP - General 07/14/24 documented as of this encounter
--- OUTSIDE RECORDS SUMMARY | 2024-10-22 08:11 | XMS_ITS | Encounter Summary ---
Author Organization [facility]3] Address [address] [place] [address] Care Team Providers Care Pop Singer Name Role Phone Jeremy Gil MD Unavailable Andres Alcantara DPM Unavailable [phone] Grant Fletcher MD Unavailable [phone] Niko Cueva MD Unavailable None, None Primary Care Provider UnavailGm Vigil DPM Unavailable [phone] Reina Byrd NP Unavailable Unavailable Encounter Details Date Type Department Care Team (Late st Contact Info) Description 09/08/2020 Clinical Update [facility]3] Physicians - Infectious Diseases, [facility] [address] [place] [address] [phone] Grant Fletcher MD [address] [place] [address] [id number] Social History Tobacco Use Types Packs/Day Years [...] (SGPT) (09/07/2020) ALT 5 U/L Plasma Result [facility] Grant Fletcher MD CHEMISTRY ORDERABLES Final Re sult * ALKALINE PHOSPHATASE (09/07/2020) Alkaline Phosphatase 98 U/L Plasma Result [facility] Grant Fletcher MD CHEMISTRY ORDERABLES Final Re sult * ALBUMIN (09/07/2020) Albumin 2.6 Plasma Result [facility] Grant Feltcher MD CHEMISTRY ORDERABLES Final Re sult * [...] on filedocumented in this encounter Care Teams Pop Singer Relationship Specialty Start Date End Date None, None [address] [place] [address] PCP - General 10/26/20 Jeremy Gil MD [address] [place] [address] [address] [place] [address] Internal Medicine 08/19/20 Andres Alcantara DPM [address] [facility] [place] [address] Resident Podiatry 08/22/20 Grant Fletcher MD [address] [facility] [address] [place] [address] Infectious Diseases 09/08/20 Niko Cueva MD [address] [facility] [address] [place] [address] Vascular Surgery 09/16/20 Gm Flor DPM [address] [facility] [place], [place] [id number] Podiatry 11/01/20 Reina Byrd NP [address] [facility] [place] [address] Nurse Practitioner Vascular Surgery 11/30/20 documented as of this encounter
--- OUTSIDE RECORDS SUMMARY | 2024-10-22 08:11 | XMS_ITS | Encounter Summary ---
Author Organization [facility] Address [address] [place] [address] Care Team Providers Care Lead C Developer Name Role Phone Tayo Jones MD Primary Care Provider Encounter Details Date Type Department Care Team (Late Contact Info) Description 01/24/2023 Orders Only External Location [address] [place] [address] Sue Pope MD [address] [place] [phone] Social History Tobacco Use Types Packs/Day Years [...] 11/19/2024 8:40 AM EDT Appointment [facility] [address] [place] [address] 11/19/2024 11:15 AM EDT Office Visit [facility] Multidisciplinary Oncology Clinic [address] [place] [address] Farhad Castillo MD [address] [address] documented as of this encounter Procedures Procedure [...] on filedocumented in this encounter Care Teams Lead C Developer Relationship Specialty Start Date End Date Tayo Jones MD [address] [phone] PCP - General 07/14/24 documented as of this encounter
--- OUTSIDE RECORDS SUMMARY | 2024-10-22 08:11 | XMS_ITS | Encounter Summary ---
Author Organization Healthcare Address [address] [id number] Care Team Providers Care Metal Hardener Name Role Phone Tayo Jones MD Primary Care Provider [phone] Encounter Details Date Type Department Care Team (Late st Contact Info) Description 07/29/2024 Telephone [facility] [address] [place] [address] Farhad Castillo MD [address] [phone] Social History Tobacco Use Types Packs/Day Years [...] from Rosie Post, Oncology Nurse Navigator at [facility] in Dr. Matthew's office. She is requesting a call back from the clinic yon with Dr. Castillo's recommendations for POC now that scans are complete. She can be reached at [phone]. documented in this encounter Plan of Treatment Upcoming Encounters Date Type Department Care Team (Late st Contact Info) Description 11/19/2024 8:40 AM EDT Appointment [facility] [address] [place] [address] 11/19/2024 11:15 AM EDT Office Visit [facility] Multidisciplinary Oncology Clinic [address] [place] [address] Farhad Castillo MD [address] [address] documented as of this encounter Visit Diagnoses Not on filedocumented in this encounter Additional Health Concerns Assessment Noted Time A fall risk assessment has been complete d for the patient 07/23/2024 8:54 AM EDT A Body Mass Index follow-up plan has been documented for the patient 07/24/2024 8:25 AM EDT documented as of this encounter Care Teams Metal Hardener Relationship Specialty Start Date End Date Tayo Jones MD [address] [place] [address] PCP - General 07/14/24 documented as of this encounter
--- OUTSIDE RECORDS SUMMARY | 2024-10-22 08:11 | XMS_ITS | Encounter Summary ---
Author Organization [facility] Address [address] [place] [address] Care Team Providers Care Track Service Worker Name Role Phone Tayo Jones MD Primary Care Provider [phone] Encounter Details Date Type Department Care Team (Late Contact Info) Description 05/06/2024 Orders Only External Location [address] [place] [address] Provider, External Social History Tobacco Use Types [...] Info) Description 11/19/2024 8:40 AM EDT Appointment [facility] [address] [place] [address] 11/19/2024 11:15 AM EDT Office Visit [facility] Multidisciplinary Oncology Clinic [address] [place] [address] Farhad Castillo MD [address] [address] documented as of this encounter Procedures Procedure [...] on filedocumented in this encounter Care Teams Track Service Worker Relationship Specialty Start Date End Date Tayo Jones MD [address] [id number] PCP - General 07/14/24 documented as of this encounter
[2024-10-22] MEDS: SODIUM CHLORIDE 0.9% 10ML SYR (RAD ONLY) 10 ML IV (08:21)
[2024-10-22] MEDS: IOPAMIDOL-370 (76%);100ML BOTTLE 75 ML IV (08:21)
== END 2024-10-22 08:35 | disposition home or self-care (01) ==
LOC: INF 08:09
PROVIDERS: PCP Family Medicine; Visit Provider Internal Medicine Medical Oncology
DX: C18.2 Malignant neoplasm of ascending colon (principal)
CPT/HCPCS: 71260; J1642; Q9967

== ENCOUNTER 2024-11-03 08:57 | Outpatient (CLI) | payer MEDICAID, SELFPAY ==
--- OUTSIDE RECORDS SUMMARY | 2024-10-08 00:10 | XMS_ITS | Encounter Summary ---
Author Organization [facility] Address [address] [id number] Care Team Providers Care Water Chaser Name Role Phone Tayo Jones MD Primary Care Provider [phone] Reason for Visit * Reason Comments Abdominal Pain * Auth/Cert (Routine) Specialty Diagnoses / Procedures Referred By Samia t Referred To Contact Diagnoses Bowel obstruction (CMS/HCC) Bowel Obstruction, hx of Colon Cancer Wilda Carson MD [address] [address] Phone: tel: fax: [facility] Emergency Department [address] [place] [address] Phone: tel: Referral ID Status Reason Start Date Expiration Date Visits Re quested Visits Authorized [id number] 1 1 Encounter Details Date Type Department Care Team (Latest Contact Info) Description 10/08/2024 12:10 AM EDT - 10/09/2024 3:38 PM EDT Hospital Encounter [facility] Emergency Department [address] [place] [address] Mickie Jefferson MD [address] [place] [address] Wilda Carson MD [address] [address] Small bowel obstruction (CMS/HCC) (Primary Dx); Abdominal pain, generalized Discharge Disposition: Halfway Facility Social History Tobacco Use Types Packs/Day [...] any time in the past 12 m [facility], were you homeless or living in a prison (including now)? No 10/09/2024 Utilities Answer Date [...] your medical oncology team at [facility] Questions: Call the [facility] at [phone] during business hours on weekdays or call [facility]'s after hours at [phone] to speak with a resident station cleaning porter for Colorectal surgery after 5pm or on [...] Note Nayan Womack 59 y.o. male CSN: [id number] Admission: 10/08/2024 12:10 AM Primary Problem: Bowel obstruction (CMS/HCC) Primary Entry Level Account Representative: Self/ Facility Assistance Available at Discharge: Availability of Care Givers (#Hours): 24 hours Discharge Facility/Level of Care Needs: Discharge Facility/Level of Care Needs: 3-Halfway Facility Patient's Choice of Community Agency(s): [facility] ([facility]) Patient/Family Anticipated Services at Transition: Patient/Family Anticipated Services at Transition: none DME/Equipment Needed after Discharge: Equipment Currently Used at Home: none Readmission Within the Last 30 Days: Readmission Within the Last 30 Days: no previous admission in last 30 days Medicare Documentation: Medicare Second Notice?: No (N/A -1 Day) Follow-up: Franky Kim PA [address] [place] [address] Discharge Transportation: Transportation Anticipated: family or friend will provide Transportation Home at Discharge: Family/Friend will Provide Follow Up Transport: Transportation Needed to Follow up Appoinments: Other(Comment) (Facility) Additional Comments: POC reviewed with primary team. Refer to primary team's discharge note for details. Per MD pt is medically ready to discharge today. Pt is a ltc resident at a [facility]. Dispo: [facility] Facility: [facility] Facility Address: [address] [place] [address] RN to call Report: [phone] DC summary Fax: SW Sent through [employer] Transport: Sister to transport Patient is in [...] (currently on chemo) who presented to the [facility] on 10/08/2024 from anOSH d/t a bowel obstruction. His oncology care is provided at [facility]. CT imaging on presentation with diffusely dilated [...] Jones MD [address] [facility] [address] Referring provider name and address: Franky Kim PA [address] [facility] [address] [place] [address] Chief Concern, Brief History of Present Illness, and Hospital Course Nayan Womack is a 59 y.o. male with PMHx significant for moderately differentiated colon adenocarcinoma s/p R colectomy and adjuvant xeloda, loss to follow up, and recent representation with metastatic disease to the liver (currently on chemo) who presented to the [facility] on 10/08/2024 from [facility] d/t a bowel obstruction. His oncology care is provided at [facility]. CT imaging on presentation with diffusely dilated [...] Center 11/19/2024 8:[address] 1 [facility] 11/19/2024 11:15 AM Farhad Castillo [...] from the original note were not included. [facility] Department of Surgery Division of Colorectal Surgery Surgery Progress Note 10/09/24 Nayan Womack Subjective Subjective: HPI Nayan Womack is a 59 y.o. male with PMHx significant for moderately differentiated colon adenocarcinoma s/p R colectomy and adjuvant xeloda, loss to follow up, and recent representation with metastatic disease to the liver currently at [facility](driven by Onc at [facility]) who presented to the [facility] on 10/08/2024 from an OSH d/t [...] at chemo(driven by Onc at [facility]) who presented to the [facility] on 10/08/2024 from an OSH d/t [...] original note were not included. [facility] Department of Surgery Division of Colorectal Surgery History & Physical Note Reason for Consult: Bowel obstruction Requesting Service: Emergency Department Consult Date and Time: 10/08/2024 0509 Inpatient consult to Colorectal Surgery Consult performed by: Kelly Hearn MD Consult ordered by: Wilda Carsno MD Subjective History of Present Illness: Chief Complaint: vomiting Nayan Womack is a 59 y.o. male with PMHx significant for moderately differentiated colon adenocarcinoma s/p R colectomy and adjuvant xeloda, loss to follow up, and recent representation with metastatic disease to the liver currently at chemo(driven by Onc at [facility]) who presented to the [facility] on 10/08/2024 from an OSH d/t [...] History Administered Date(s) Administered Moderna COVID-19 Vaccine (Gun Synchronizer) 12+ years 06/29/2020, 07/27/2020, 03/28/2021 Pfizer-BioNTArtCorgi COVID-19 Bivalent (Yang Cap) 12+ years (dee-sucrose) 01/15/2022 I have updated and confirmed the past medical, surgical, family and social history. Home Medications: Prior to Admission medications Medication Sig Start Date End Date Taking? Authorizing Provider acetaminophen (Tylenol) 500 MG tablet Take 1 tablet by mouth every 6 hours as needed for pain. 07/31/24 aFrhad Castillo MD amLODIPine (Norvasc) 5 MG tablet [...] at chemo(driven by Onc at [facility]) who presented to the [facility] on 10/08/2024 from an OSH d/t [...] down and gluc 225 -f/[place] [facility] [place]po: Admit to scr CODE STATUS: full [...] Review Outcome: Ongoing, Progressing Flowsheets (Taken 10/09/2024 1762) Plan of Care Reviewed With: patient Goal: Patient-Specific Goal (Individualized) Outcome: Ongoing, Progressing Goal: Absence of Hospital-Acquired Illness or Injury Outcome: Ongoing, Progressing Intervention: Identify and Manage Fall Risk Flowsheets (Taken 10/09/2024826) Safety Promotion/Fall Prevention: assistive device/personal items within [facility] fall prevention program maintained safety round/check completed mobility aid in [facility] clutter-free environment maintained Intervention: Prevent Infection [...] Safety Promotion/Fall Prevention: assistive device/personal items within [facility] fall prevention program maintained safety round/check completed mobility aid in [facility] clutter-free environment maintained Intervention: Prevent Infection Flowsheets (Taken 10/09/2024826) Infection Prevention: hand hygiene promoted rest/sleep promoted Goal: Optimal Comfort and Wellbeing 10/09/2024 153 by Michell Campa RN Outcome: Met 10/09/2024826 [...] Notify Provider Until discontinued Acknowledged DHIRAJ KELLY aSndie 10/08/24427 Intake and Output - Strict Per unit protocol Acknowledged DHIRAJ KELLY Sandie 10/08/24427 Insert peripheral IV Once Placed in And Linked Group Acknowledged SANDS KELLY Hooper 10/08/24427 Saline lock IV Once Placed in And Linked Group Acknowledged SANDS KELLY Hooper 10/08/24427 Once Canceled SANDS KELLY Sandie 10/08/24427 Full code Continuous Acknowledged DHIRAJ KELLY Hooper 10/08/24427 NPO diet Diet effective now Acknowledged DHIRAJ KELLY Sandie 10/08/24427 Mobility Orders Until discontinued Acknowledged DHIRAJ KELLY Hooper 10/08/24427 Incentive spirometry Every 1 hour while awake Acknowledged DHIRAJ [facility] 10/08/24427 Nasogastric tube maintenance Connect to: Low [...] - ED Once Final result LEEANNE RAZA 10/08/24 005 ED Protocol - HIV 1/2 Antibody/Antigen Screen Once Final result LEEANNE RAZA Yang 10/08/24 0050 ED HIV 1/2 Antibody/Antigen Screen w/Reflex to HIV 1/2 Differentiation PROCEDURE ONCE Final result LEEANNE RAZA Yang 10/08/24 0050 CMP STAT Final result LEEANNE RAZA 10/08/24 0050 Magnesium STAT Final result LEEANNE RAZA 10/08/24 0050 Phosphorus STAT Final result LEEANNE RAZA 10/08/24 005 Lactic acid, venous STAT Final result LEEANNE RAZA Yang 10/08/24 0050 CBC w/diff STAT Final result LEEANNE RAZA 10/08/24 005 PT-INR STAT Final result LEEANNE RAZA 10/08/24 005 EKG now - STAT (adult) Once Preliminary result RAZACALIXTOROD Soria 10/08/24 005 Type and screen Start [...] None Disposition Admit Admitting/Attending Physician: WILDA CARSON [[id number]] Provider Care Team: MEIR MANZANARES COLORECTAL SURGERY [...] Info) Description 11/19/2024 8:40 AM EDT Appointment [facility] [address] [address] [place] [address] 11/19/2024 11:15 AM EDT Office Visit [facility] Multidisciplinary Oncology Clinic [address] [place] [address] Farhad Castillo MD [address] [phone] documented as of this encounter Procedures Procedure [...] for testing. Comment 10/09/2024 12:12 PM EDT [facility] Therapist ID Alyx, Julia 025 12:12 PM EDT [facility] Device ID [id number] 10/09/2024 12:12 PM EDT [facility] Specimen Type POC Capillary 10/09/2024 12:12 PM EDT [facility] Blood Capillary blood specimen / Unknown 10/09/2024 12:08 PM EDT 10/09/2024 12:12 PM EDT Wilda Carson MD LAB POINT OF CARE TE ST DOCKED DEVICE UNSOLICITED RESULTS Final Result Performing Organization Address City/State/[facility] Co de Phone Number [facility] [address] [place] [phone] * XR Abdomen 1 View (10/09/2024 9:41 [...] glucose meter (10/09/2024 5:47 AM EDT) Pathologist [facility] POCT Glucose 270(H) 74 - 99 mg/dL [...] for testing. Comment 10/09/2024 5:49 AM EDT [facility] Therapist ID Flor Marks 10/09/2024 5:49 AM EDT [facility] Device ID [id number] 10/09/2024 5:49 AM EDT [facility] Specimen Type POC Capillary 10/09/2024 5:49 AM EDT [facility] Blood Capillary blood specimen / Unknown 10/09/2024 5:47 AM EDT 10/09/2024 5:49 AM EDT Wilda Carson MD LAB POINT OF CARE TE ST DOCKED DEVICE UNSOLICITED RESULTS Final Result Performing Organization Address City/State/[facility] Co de Phone Number [facility] [address] [place] [address] * (ABNORMAL) Basic metabolic panel (10/09/2024 4:28 AM EDT) Pathologist [facility] Glucose, Plasma 286(H) 74 - 99 mg/dL 10/09/2024 5:48 AM EDT [facility] BUN, Plasma 36(H) 8 - 23 mg/dL 10/09/2024 5:48 AM EDT [facility] Creatinine, Plasma 1.45(H) 0.70 - 1.20 mg/dL 10/09/2024 5:48 AM EDT [facility] BUN/Creatinine Ratio 25 10/09/2024 5:48 AM EDT [facility] Sodium, Plasma 131(L) 136 - 145 mmol/L 10/09/2024 5:48 AM EDT [facility] Potassium, Plasma 3.4(L) 3.6 - 4.9 mmol/L 10/09/2024 5:48 AM EDT [facility] Comment:Hemolyzed, result ma y be falsely increased. Chloride, Plasma 99 97 - 107 mmol/L 10/09/2024 5:48 AM EDT [facility] CO2, Plasma 17(L) 22 - 29 mmol/L 10/09/2024 5:48 AM EDT [facility] Anion Gap 15 6 - 16 mmol/L 10/09/2024 5:48 AM EDT [facility] Total Calcium, Plasma 8.8(L) 8.9 - 10.2 mg/dL 10/09/2024 5:48 AM EDT [facility] eGFRcr 55.2 mL/min/1.7 3m*2 10/09/2024 5:48 AM EDT [facility] Comment:Reported eGFRcr in m L/min/1.73m2 is based the CKD-EPI 2020 equation that does not use a race coefficient. Blood Venous blood specimen / Unknown Venipuncture / Unknown 10/09/2024 4:28 AM EDT 10/09/2024 5:03 AM EDT Eva Barnes CASH SPECIALIST, DNP LAB BLOOD ORDERABLE S Final Result [facility] [address] [place] [address] * (ABNORMAL) CBC W/O Differential (10/09/2024 4:28 AM EDT) WBC Count 9.06 3.70 - 10.30 10*3/uL LAB HEMATOLOGY METHOD 10/09/2024 4:52 AM EDT [facility] RBC Count 4.07(L) 4.60 - 6.10 10*6/uL LAB HEMATOLOGY METHOD 10/09/2024 4:52 AM EDT [facility] HGB 13.3(L) 13.7 - 17.5 g/dL LAB HEMATOLOGY METHOD 10/09/2024 4:52 AM EDT [facility] HCT 37.0(L) 40.0 - 51.0 % LAB HEMATOLOGY METHOD 10/09/2024 4:52 AM EDT [facility] Platelet Count 312 155 - 369 10*3/uL LAB HEMATOLOGY METHOD 10/09/2024 4:52 AM EDT [facility] MCV 91 79 - 98 fL LAB HEMATOLOGY METHOD 10/09/2024 4:52 AM EDT [facility] MCH 32.7(H) 26.0 - 32.0 pg LAB HEMATOLOGY METHOD 10/09/2024 4:52 AM EDT [facility] MCHC 35.9(H) 30.7 - 35.5 g/dL LAB HEMATOLOGY METHOD 10/09/2024 4:52 AM EDT [facility] RDW 13.5 11.5 - 14.5 % LAB HEMATOLOGY METHOD 10/09/2024 4:52 AM EDT [facility] MPV 9.1 8.8 - 12.5 fL LAB HEMATOLOGY METHOD 10/09/2024 4:52 AM EDT [facility] nRBC 0.0 <=0.0 per 100 WBCs LAB HEMATOLOGY METHOD 10/09/2024 4:52 AM EDT [facility] Blood Venous blood specimen / Unknown Venipuncture / Unknown 10/09/2024 4:28 AM EDT 10/09/2024 4:50 AM EDT Eva Barnes CASH SPECIALIST, DNP LAB BLOOD ORDERABLE S Final Result [facility] [address] [place] [address] * XR Gastrograffin Challenge (10/09/2024 1:17 AM [...] MD on 10/09/2024 7:54 AM us Wilda Soria Hourigan MD IMG XR PROCEDURES Final Result * (ABNORMAL) POCT glucose meter (10/08/2024 11:59 PM EDT) [facility] POCT Glucose 287(H) 74 - 99 mg/dL [...] Comment 10/09/2024 12:00 AM EDT [facility] Therapist ID SelinaFlor 10/09/2024 12:00 AM EDT [facility] Device ID [id number] 10/09/2024 12:00 AM EDT [facility] Specimen Type POC Capillary 10/09/2024 12:00 AM EDT [facility] Blood Capillary blood specimen / Unknown 10/08/2024 11:59 PM EDT 10/09/2024 12:00 AM EDT us Wilda Carson MD LAB POINT OF CARE TE ST DOCKED DEVICE UNSOLICITED RESULTS Final Result Performing Organization Address City/State/[facility] Co de Phone Number [facility] [address] [place] [address] * (ABNORMAL) POCT glucose meter (10/08/2024 9:01 PM EDT) [facility] POCT Glucose 284(H) 74 - 99 mg/dL [...] 10/08/2024 9:03 PM EDT [facility] Therapist ID Isma Quiroz 025 9:03 PM EDT [facility] Device ID [id number] 10/08/2024 9:03 PM EDT [facility] Specimen Type POC Capillary 10/08/2024 9:03 PM EDT [facility] Blood Capillary blood specimen / Unknown 10/08/2024 9:01 PM EDT 10/08/2024 9:03 PM EDT Wilda Carson MD LAB POINT OF CARE TE ST DOCKED DEVICE UNSOLICITED RESULTS Final Result Performing Organization Address City/[facility] Co de Phone Number [facility] [address] [place] [address] * (ABNORMAL) POCT glucose meter (10/08/2024 5:08 [...] Comment 10/08/2024 5:10 PM EDT [facility] Therapist ID Franchesca Herrera 5:10 PM EDT [facility] Device ID [id number] 10/08/2024 5:10 PM EDT [facility] Specimen Type POC Capillary 10/08/2024 5:10 PM EDT [facility] Blood Capillary blood specimen / Unknown 10/08/2024 5:08 PM EDT 10/08/2024 5:10 PM EDT us Wilda Carson MD LAB POINT OF CARE TE ST DOCKED DEVICE UNSOLICITED RESULTS Final Result Performing Organization Address City/[facility] Co de Phone Number [facility] [address] [place] [address] * (ABNORMAL) POCT glucose meter (10/08/2024 11:57 [...] Comment 10/08/2024 11:59 AM EDT [facility] Therapist ID Phuong Glass 025 11:59 AM EDT [facility] Device ID [id number] 10/08/2024 11:59 AM EDT [facility] Specimen Type POC Capillary 10/08/2024 11:59 AM EDT [facility] Blood Capillary blood specimen / Unknown 10/08/2024 11:57 AM EDT 10/08/2024 11:59 AM EDT Wilda Carson MD LAB POINT OF CARE TE ST DOCKED DEVICE UNSOLICITED RESULTS Final Result Performing Organization Address City/State/[facility] Co de Phone Number [facility] [address] [place] [address] * (ABNORMAL) POCT glucose meter (10/08/2024 7:55 AM EDT) [facility] POCT Glucose 248(H) 74 - 99 mg/dL [...] 10/08/2024 7:57 AM EDT [facility] Therapist ID Phuong Glass 025 7:57 AM EDT [facility] Device ID [id number] 10/08/2024 7:57 AM EDT [facility] Specimen Type POC Capillary 10/08/2024 7:57 AM EDT [facility] Blood Capillary blood specimen / Unknown 10/08/2024 7:55 AM EDT 10/08/2024 7:57 AM EDT us Wilda Carson MD LAB POINT OF CARE TE ST DOCKED DEVICE UNSOLICITED RESULTS Final Result Performing Organization Address City/[facility]/ZIP Co de Phone Number [facility] [address] [place] [address] * (ABNORMAL) POCT glucose meter (10/08/2024 5:40 [...] Comment 10/08/2024 5:42 AM EDT [facility] Therapist ID Bj Canales 10/08/2024 5:42 AM EDT [facility] Device ID [id number] 10/08/2024 5:42 AM EDT [facility] Specimen Type POC Capillary 10/08/2024 5:42 AM EDT [facility] Blood Capillary blood specimen / Unknown 10/08/2024 5:40 AM EDT 10/08/2024 5:42 AM EDT Wilda Carson MD LAB POINT OF CARE TE ST DOCKED DEVICE UNSOLICITED RESULTS Final Result [facility] [address] [place] [address] * (ABNORMAL) Hemoglobin A1c (10/08/2024 4:59 AM EDT) Hemoglobin A1c 7.6(H) <5.7 % 10/08/2024 11:37 AM EDT [facility] Blood Venous blood specimen / Unknown Venipuncture / Unknown 10/08/2024 4:59 AM EDT 10/08/2024 5:01 AM EDT Narrative [facility] - 10/08/2024 11:37 AM EDT HA1C Interpretive Data: Diagnosis of Diabetes: Diabetic > or = 6.5% Pre-diabetic 5.7 to 6.4% Non-diabetic < or = 5.6% Glycemic Targets for Type I and Type II Diabetics: Non- Adults <7.0% Adults <6.0% Children and Adolescents <7.5% Source: [place] [employer]. Standards of medical care in diabetes,2017. Diabetes Care.2017:40 (suppl 1):S1-S135. us Wilda Carson MD LAB BLOOD ORDERABLES Final Res ult Performing Organization Address City/[facility] Co de Phone Number [facility] [address] [place] [address] * Phosphorus, Plasma (10/08/2024 4:59 AM EDT) Phosphorus, Plasma 3.8 2.5 - 4.5 mg/dL 10/08/2024 6:00 AM EDT [facility] Blood Venous blood specimen / Unknown Venipuncture / Unknown 10/08/2024 4:59 AM EDT 10/08/2024 5:16 AM EDT us Wilda Carson MD LAB BLOOD ORDERABLES Final Res ult Performing Organization Address [facility] [place] [address] * (ABNORMAL) Magnesium, Plasma (10/08/2024 4:59 AM EDT) Magnesium, Plasma 1.7(L) 1.9 - 2.4 mg/dL 10/08/2024 6:00 AM EDT [facility] Blood Venous blood specimen / Unknown Venipuncture / Unknown 10/08/2024 4:59 AM EDT 10/08/2024 5:16 AM EDT us Wilda Carson MD LAB BLOOD ORDERABLES Final Res ult Performing Organization Address City/[facility] Co de Phone Number [facility] [address] [place] [address] * (ABNORMAL) CBC W/O Differential (10/08/2024 4:59 AM EDT) WBC Count 9.53 3.70 - 10.30 10*3/uL LAB HEMATOLOGY METHOD 10/08/2024 5:04 AM EDT [facility] RBC Count 4.33(L) 4.60 - 6.10 10*6/uL LAB HEMATOLOGY METHOD 10/08/2024 5:04 AM EDT [facility] HGB 14.1 13.7 - 17.5 g/dL LAB HEMATOLOGY METHOD 10/08/2024 5:04 AM EDT [facility] HCT 39.4(L) 40.0 - 51.0 % LAB HEMATOLOGY METHOD 10/08/2024 5:04 AM EDT [facility] Platelet Count 279 155 - 369 10*3/uL LAB HEMATOLOGY METHOD 10/08/2024 5:04 AM EDT [facility] MCV 91 79 - 98 fL LAB HEMATOLOGY METHOD 10/08/2024 5:04 AM EDT [facility] MCH 32.6(H) 26.0 - 32.0 pg LAB HEMATOLOGY METHOD 10/08/2024 5:04 AM EDT [facility] MCHC 35.8(H) 30.7 - 35.5 g/dL LAB HEMATOLOGY METHOD 10/08/2024 5:04 AM EDT [facility] RDW 13.3 11.5 - 14.5 % LAB HEMATOLOGY METHOD 10/08/2024 5:04 AM EDT [facility] MPV 8.9 8.8 - 12.5 fL LAB HEMATOLOGY METHOD 10/08/2024 5:04 AM EDT [facility] nRBC 0.0 <=0.0 per 100 WBCs LAB HEMATOLOGY METHOD 10/08/2024 5:04 AM EDT [facility] Blood Venous blood specimen / Unknown Venipuncture / Unknown 10/08/2024 4:59 AM EDT 10/08/2024 5:01 AM EDT us Wilda Carson MD LAB BLOOD ORDERABLES Final Res ult [facility] [address] [place] [address] * (ABNORMAL) Basic Metabolic Panel, Plasma (10/08/2024 4:59 AM EDT) Glucose, Plasma 206(H) 74 - 99 mg/dL 10/08/2024 6:00 AM EDT [facility] BUN, Plasma 39(H) 8 - 23 mg/dL 10/08/2024 6:00 AM EDT [facility] Creatinine, Plasma 1.26(H) 0.70 - 1.20 mg/dL 10/08/2024 6:00 AM EDT [facility] BUN/Creatinine Ratio 31 10/08/2024 6:00 AM EDT [facility] Sodium, Plasma 125(L) 136 - 145 mmol/L 10/08/2024 6:00 AM EDT [facility] Potassium, Plasma 3.2(L) 3.6 - 4.9 mmol/L 10/08/2024 6:00 AM EDT [facility] Comment:Hemolyzed, result ma y be falsely increased. Chloride, Plasma 98 97 - 107 mmol/L 10/08/2024 6:00 AM EDT [facility] CO2, Plasma 14(L) 22 - 29 mmol/L 10/08/2024 6:00 AM EDT [facility] Anion Gap 13 6 - 16 mmol/L 10/08/2024 6:00 AM EDT [facility] Total Calcium, Plasma 7.6(L) 8.9 - 10.2 mg/dL 10/08/2024 6:00 AM EDT [facility] eGFRcr 65.3 mL/min/1.7 3m*2 10/08/2024 6:00 AM EDT [facility] Comment:Reported eGFRcr in m L/min/1.73m2 is based the CKD-EPI 2020 equation that does not use a race coefficient. Blood Venous blood specimen / Unknown Venipuncture / Unknown 10/08/2024 4:59 AM EDT 10/08/2024 5:16 AM EDT us Wilda Carson MD LAB BLOOD ORDERABLES Final Res ult [facility] [address] [place] [address] * CT Abdomen Pelvis w IV Contrast [...] QTC Interval 525 ms MUSE ECG P Gallagher 16 degrees MUSE ECG R Gallagher -32 degrees MUSE ECG T Wave Gallagher 47 degrees MUSE ECG Diagnosis Normal sinus rhythm MUSE ECG Diagnosis Left axis deviation in the presence of LAFB MUSE ECG Diagnosis Right bundle branch block Bifascicular block MUSE ECG Diagnosis Minimal voltage criteria for LVH, may be normal variant ( R in aVL ) MUSE ECG Diagnosis Abnormal ECG MUSE ECG Diagnosis MUSE ECG Diagnosis Confirmed by Adarsh Pichardo ([id number]) on 10/08/2024 10:50:58 AM MUSE ECG 10/08/2024 12:5 5 AM EDT 10/08/2024 10:50 AM EDT us Mickie Jefferson MD ECG ORDERABLES Final Result Performing Organization Address City/[facility]/ZIP Co de Phone Number MUSE ECG * ED HIV 1/2 Antibody/Antigen Screen w/Reflex to HIV 1/2 Differentiation (10/08/2024 12:55 AM EDT) HIV 1 & 2 Antibody/Antigen Screen Non Reactive Non Reactive 10/08/2024 2:00 AM EDT [facility] Comment:Screening for HIV 1 & 2 antibodies, and P24 antigen is NONREACTIVE. No confirmatory testing is required. Blood Venous blood specimen / Unknown Venipuncture / Unknown 10/08/2024 12:55 AM EDT 10/08/2024 1:11 AM EDT us Mickie Jefferson MD LAB BLOOD ORDERABLES Final Re sult Performing Organization Address City/[facility]/ZIP Co de Phone Number [facility] [address] [place] [address] * Hepatitis C Antibody - ED (10/08/2024 12:55 AM EDT) Hepatitis C Antibody Negative Negative 10/08/2024 2:16 AM EDT [facility] Blood Venous blood specimen / Unknown Venipuncture / Unknown 10/08/2024 12:55 AM EDT 10/08/2024 1:11 AM EDT us Mickie Jefferson MD LAB BLOOD ORDERABLES Final Re sult [facility] [address] [place] [address] * Type and screen (10/08/2024 12:55 AM [...] ORDERABLE S Final Result Performing Organization Address [facility] Phone Number BLOOD BANK [address] [place] [address], [place] * (ABNORMAL) PT-INR (10/08/2024 12:55 AM EDT) Prothrombin Time 14.7(H) 12.0 - 14.3 sec 10/08/2024 1:27 AM EDT [facility] INR 1.2(H) 0.9 - 1.1 10/08/2024 1:27 AM EDT [facility] Blood Venous blood specimen / Unknown Venipuncture / Unknown 10/08/2024 12:55 AM EDT 10/08/2024 1:05 AM EDT Narrative [facility] - 10/08/2024 1:27 AM EDT OPTIMAL INR RANGES FOR PATIENT ON ORAL ANTICOAGULANT THERAPY Prevention of venous thromboembolism INR 2.0 to 3.0 In patients with heart disease: Atrial fibrillation INR 2.0 to 3.0 Valvular heart disease INR 2.0 to 3.0 Tissue heart valves INR 2.0 to 3.0 Mechanical prosthetic valves INR 2.5 to 3.5 Prevention of recurrent ID INR 2.5 to 3.5 us Mickie Jefferson MD LAB BLOOD ORDERABLES Final Re sult [facility] [address] [place] [address] * (ABNORMAL) CBC w/diff (10/08/2024 12:55 AM EDT) WBC Count 11.32(H) 3.70 - 10.30 10*3/uL LAB HEMATOLOGY METHOD 10/08/2024 1:09 AM EDT [facility] RBC Count 4.20(L) 4.60 - 6.10 10*6/uL LAB HEMATOLOGY METHOD 10/08/2024 1:09 AM EDT [facility] HGB 13.9 13.7 - 17.5 g/dL LAB HEMATOLOGY METHOD 10/08/2024 1:09 AM EDT [facility] HCT 38.0(L) 40.0 - 51.0 % LAB HEMATOLOGY METHOD 10/08/2024 1:09 AM EDT [facility] Platelet Count 293 155 - 369 10*3/uL LAB HEMATOLOGY METHOD 10/08/2024 1:09 AM EDT [facility] MCV 91 79 - 98 fL LAB HEMATOLOGY METHOD 10/08/2024 1:09 AM EDT [facility] MCH 33.1(H) 26.0 - 32.0 pg LAB HEMATOLOGY METHOD 10/08/2024 1:09 AM EDT [facility] MCHC 36.6(H) 30.7 - 35.5 g/dL LAB HEMATOLOGY METHOD 10/08/2024 1:09 AM EDT [facility] RDW 13.5 11.5 - 14.5 % LAB HEMATOLOGY METHOD 10/08/2024 1:09 AM EDT [facility] MPV 10.0 8.8 - 12.5 fL LAB HEMATOLOGY METHOD 10/08/2024 1:09 AM EDT [facility] nRBC 0.0 <=0.0 per 100 WBCs LAB HEMATOLOGY METHOD 10/08/2024 1:09 AM EDT [facility] Differential Type Automated LAB HEMATOLOGY METHOD 10/08/2024 1:09 AM EDT [facility] Neutrophils % 70 % LAB HEMATOLOGY METHOD 10/08/2024 1:09 AM EDT [facility] Lymphocytes % 10 % LAB HEMATOLOGY METHOD 10/08/2024 1:09 AM EDT [facility] Monocytes % 18 % LAB HEMATOLOGY METHOD 10/08/2024 1:09 AM EDT [facility] Eosinophils % 0 % LAB HEMATOLOGY METHOD 10/08/2024 1:09 AM EDT [facility] Basophils % 1 % LAB HEMATOLOGY METHOD 10/08/2024 1:09 AM EDT [facility] Immature Granulocytes % 1 % LAB HEMATOLOGY METHOD 10/08/2024 1:09 AM EDT [facility] Neutrophils Absolute 7.97(H) 1.60 - 6.10 10*3/uL LAB HEMATOLOGY METHOD 10/08/2024 1:09 AM EDT [facility] Lymphocytes Absolute 1.17(L) 1.20 - 3.90 10*3/uL LAB HEMATOLOGY METHOD 10/08/2024 1:09 AM EDT [facility] Monocytes Absolute 2.01(H) 0.30 - 0.90 10*3/uL LAB HEMATOLOGY METHOD 10/08/2024 1:09 AM EDT [facility] Eosinophils Absolute 0.02 0.00 - 0.50 10*3/uL LAB HEMATOLOGY METHOD 10/08/2024 1:09 AM EDT [facility] Basophils Absolute 0.07 0.00 - 0.10 10*3/uL LAB HEMATOLOGY METHOD 10/08/2024 1:09 AM EDT [facility] Immature Granulocytes Absolute 0.08(H) 0.00 - 0.06 10*3/uL LAB HEMATOLOGY METHOD 10/08/2024 1:09 AM EDT [facility] Blood Venous blood specimen / Unknown Venipuncture / Unknown 10/08/2024 12:55 AM EDT 10/08/2024 1:05 AM EDT Narrative [facility] - 10/08/2024 1:09 AM EDT Therapeutic decision making should be based on absolute values, rather than percentages. us Mickie Jefferson MD LAB BLOOD ORDERABLES Final Re sult [facility] [address] [place] [address] * Lactic acid, venous (10/08/2024 12:55 AM EDT) Lactate, Venous, Whole Blood 1.1 0.5 - 2.2 mmol/L LAB HEMATOLOGY METHOD 10/08/2024 1:10 AM EDT [facility] Blood Venous blood specimen / Unknown Venipuncture / Unknown 10/08/2024 12:55 AM EDT 10/08/2024 1:07 AM EDT us Mickie Jefferson MD LAB BLOOD ORDERABLES Final Re sult Performing Organization Address City/[facility]/ZIP Co de Phone Number [facility] [address] [place] [address] * (ABNORMAL) Phosphorus (10/08/2024 12:55 AM EDT) [facility] Phosphorus, Plasma 4.6(H) 2.5 - 4.5 mg/dL 10/08/2024 1:37 AM EDT [facility] Blood Venous blood specimen / Unknown Venipuncture / Unknown 10/08/2024 12:55 AM EDT 10/08/2024 1:05 AM EDT us Mickie Jefferson MD LAB BLOOD ORDERABLES Final Re sult Performing Organization Address [facility] [place] [address] * Magnesium (10/08/2024 12:55 AM EDT) Pathologist [facility] Magnesium, Plasma 1.9 1.9 - 2.4 mg/dL 10/08/2024 1:37 AM EDT [facility] Blood Venous blood specimen / Unknown Venipuncture / Unknown 10/08/2024 12:55 AM EDT 10/08/2024 1:05 AM EDT us Mickie Jefferson MD LAB BLOOD ORDERABLES Final Re sult Performing Organization Address [facility] [place] [address] * (ABNORMAL) CMP (10/08/2024 12:55 AM EDT) Glucose, Plasma 235(H) 74 - 99 mg/dL 10/08/2024 1:37 AM EDT [facility] BUN, Plasma 44(H) 8 - 23 mg/dL 10/08/2024 1:37 AM EDT [facility] Creatinine, Plasma 1.52(H) 0.70 - 1.20 mg/dL 10/08/2024 1:37 AM EDT [facility] BUN/Creatinine Ratio 29 10/08/2024 1:37 AM EDT [facility] Sodium, Plasma 125(L) 136 - 145 mmol/L 10/08/2024 1:37 AM EDT [facility] Potassium, Plasma 3.8 3.6 - 4.9 mmol/L 10/08/2024 1:37 AM EDT [facility] Chloride, Plasma 93(L) 97 - 107 mmol/L 10/08/2024 1:37 AM EDT [facility] CO2, Plasma 14(L) 22 - 29 mmol/L 10/08/2024 1:37 AM EDT [facility] Anion Gap 18(H) 6 - 16 mmol/L 10/08/2024 1:37 AM EDT [facility] Total Calcium, Plasma 9.2 8.9 - 10.2 mg/dL 10/08/2024 1:37 AM EDT [facility] Total Protein 7.3 6.3 - 7.9 g/dL 10/08/2024 1:37 AM EDT [facility] Albumin, Plasma 3.9 3.5 - 5.2 g/dL 10/08/2024 1:37 AM EDT [facility] AST, Plasma 24 10 - 50 U/L 10/08/2024 1:37 AM EDT [facility] Comment:Hemolyzed, result ma y be falsely increased. ALT, Plasma 12 10 - 50 U/L 10/08/2024 1:37 AM EDT [facility] Alkaline Phosphatase, Plasma 89 40 - 115 U/L 10/08/2024 1:37 AM EDT [facility] Total Bilirubin, Plasma 0.8 0.2 - 1.1 mg/dL 10/08/2024 1:37 AM EDT [facility] eGFRcr 52.1 mL/min/1.7 3m*2 10/08/2024 1:37 AM EDT [facility] Comment:Reported eGFRcr in m L/min/1.73m2 is based the CKD-EPI 2020 equation that does not use a race coefficient. Blood Venous blood specimen / Unknown Venipuncture / Unknown 10/08/2024 12:55 AM EDT 10/08/2024 1:05 AM EDT us Mickie Jefferson MD LAB BLOOD ORDERABLES Final Re sult [facility] [address] [place] [address] documented in this encounter Visit Diagnoses Diagnosis [...] comment - Comment: Hold thisdose per Dhiraj DGUGAN)1514 (Given - Provider: Franchesca Herrera RN)2138 (Given [...] Campa, JAN)0949 (New Bag - Provider: Michell Campa RN)1514 [...] Campa, JAN)0929 (Stopped - Provider: Michell Campa, JAN)0930 (New Bag - Provider: Michell Campa, JAN)[phone] [...] Campa, JAN)1513 (Stopped - Provider: Michell Campa, JAN) PRN Medication Order 10/07/2024 10/08/2024 10/09/2024 dextrose [...] documented as of this encounter Care Teams Water Chaser Relationship Specialty Start Date End Date Tayo Jones MD [address] [place] [address] PCP - General 07/14/24 documented as of this encounter
--- OUTSIDE RECORDS SUMMARY | 2024-11-03 09:01 | XMS_ITS | Encounter Summary ---
Author Organization [facility] Address [address] [place] [address] Care Team Providers Care Forester Aide Name Role Phone Tayo Jones MD Primary Care Provider [phone] Encounter Details Date Type Department Care Team (Late Contact Info) Description 07/16/2024 Lab Requisition [facility] [address] [place] [address] Farhad Castillo MD [address] [address] Other acute appendicitis without perforation [...] Info) Description 11/19/2024 8:40 AM EDT Appointment [facility] [address]nd [place] [address] 11/19/2024 11:15 AM EDT Office Visit [facility] Multidisciplinary Oncology Clinic [address] [place] [address] Farhad Castillo MD [address] [address] documented as of this encounter Procedures Procedure Name Priority Date/Time Associated Diagnosis Comments SURGICAL PATHOLOGY CONSULT Routine 07/16/2024 1:13 PM EDT Other acute appendicitis without perforation or gangrene documented in this encounter Results * Surgical Pathology Consult (07/16/2024 1:13 PM EDT) Case Report Sugical Pathology Consult Case: [id number] Authorizing Provider: Farhad Castillo MD Collected: 07/16/2024 1313 Ordering Location: [facility] Lab Received: 07/16/2024 1313 Pathologist: Constance Murphy MD Specimen: Colon, [id number] 07/17/2024 1:08 PM EDT [facility] Final Diagnosis RIGHT COLON AND TERMINAL ILEUM, RIGHT HEMICOLECTOMY ([id number]; 11/09/2022): - 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 - TUMOR BUDDING SCORE: HIGH (10 OR GREATER). - NO TUMOR SEEN IN TWENTY ONE LYMPH NODES (0/21). 07/17/2024 1:08 PM EDT [facility] at 1308 EDT Comment Per pathology report immunohistochemical stains for MMR proteins showed retained nuclear immunoreaction for all 4 proteins (MLH-1, MSH-2, MSH-6, and PMS-2). 07/17/2024 1:08 PM EDT [facility] Clinical Information K35.890 - Other acute appendicitis without perforation or gangrene [ICD-10-CM] 07/17/2024 1:08 PM EDT [facility] Gross Description A. [id number] Received along with a corresponding pathology report from [facility] are 29 slides labeled outside case: [id number] collected on 11/09/2022. 07/17/2024 1:08 PM EDT [facility] Note: A resident was involved in the service. I attest I examined the relevant preparations for the specimens and confirmed the diagnosis or interpretation. 07/17/2024 1:08 PM EDT [facility] Tissue Colon structure / Unknown 07/16/2024 1:13 PM EDT 07/16/2024 1:13 PM EDT us Farhad Castillo MD LAB PATHOLOGY ORDERABLES F inal Result [facility] [address] [place] [address] documented in this encounter Visit Diagnoses Diagnosis Other acute appendicitis without perforation or gangrene documented in this encounter Care Teams Forester Aide Relationship Specialty Start Date End Date Tayo Jones MD [address] [place] [address] PCP - General 07/14/24 documented as of this encounter
--- OUTSIDE RECORDS SUMMARY | 2024-11-03 09:01 | XMS_ITS | Encounter Summary ---
Author Organization [facility] Address [address] [place] [address] Care Team Providers Care Security Professional Name Role Phone Jeremy Gil MD Unavailable Andres Alcantara DPM Unavailable Grant Fletcher MD Unavailable Niko Cueva MD Unavailable None, None Primary Care Provider UnavailGm Vigil DPM Unavailable [phone] Reina Byrd NP Unavailable Unavailable Encounter Details Date Type Department Care Team (Late st Contact Info) Description 09/08/2020 Clinical Update [facility] Physicians - Infectious Diseases, [facility] [address] [place] [address] [phone] Grant Fletcher MD [address] [place] [address] [id number] Social History Tobacco Use Types Packs/Day Years [...] (SGPT) (09/07/2020) ALT 5 U/L Plasma Result [facility] Grant Fletcher MD CHEMISTRY ORDERABLES Final Re sult * ALKALINE PHOSPHATASE (09/07/2020) Alkaline Phosphatase 98 U/L Plasma Result [facility] Grant Fletcher MD CHEMISTRY ORDERABLES Final Re sult * ALBUMIN (09/07/2020) Albumin 2.6 Plasma Result [facility] Grant Fletcher MD CHEMISTRY ORDERABLES Final Re [...] on filedocumented in this encounter Care Teams Security Professional Relationship Specialty Start Date End Date None, None [address] [place] [address] PCP - General 10/26/20 Jeremy Gil MD [address] [place] [address] Room [address] [place] [address] Internal Medicine 08/19/20 Andres Alcantara DPM [address] [facility]. [address] [place] [address] Resident Podiatry 08/22/20 Grant Fletcher MD [address] [facility] [address] [place] [address] Infectious Diseases 09/08/20 Niko Cueva MD [address] [facility] [address] [place] [address] Vascular Surgery 09/16/20 Gm Flor DPM [address] [facility]. [address] [place], [place] [phone] Podiatry 11/01/20 Reina Byrd NP [address] [facility] [place] [address] Nurse Practitioner Vascular Surgery 11/30/20 documented as of this encounter
--- OUTSIDE RECORDS SUMMARY | 2024-11-03 09:01 | XMS_ITS | Encounter Summary ---
Author Organization [facility] Address [address] [place] [address] Care Team Providers Care Mica Sizer Name Role Phone Tayo Jones MD Primary Care Provider [phone] Encounter Details Date Type Department Care Team (Late Contact Info) Description 01/15/2023 Orders Only External Location [address] [place] [address] Provider, External Social History Tobacco Use Types [...] 11/19/2024 8:40 AM EDT Appointment [facility] [address], 2nd [place] [address] 11/19/2024 11:15 AM EDT Office Visit [facility] Multidisciplinary Oncology Clinic [address] [place] [address] Farhad Castillo MD [address] [address] documented as of this encounter Procedures Procedure [...] on filedocumented in this encounter Care Teams Mica Sizer Relationship Specialty Start Date End Date Tayo Jones MD [address] [place] [phone] PCP - General 07/14/24 documented as of this encounter
--- OUTSIDE RECORDS SUMMARY | 2024-11-03 09:01 | XMS_ITS | Encounter Summary ---
Author Organization [facility] Address [address] [place] [address] Care Team Providers Care Inside Horticultural Specialty Grower Name Role Phone Tayo Jones MD Primary Care Provider [phone] Encounter Details Date Type Department Care Team (Late Contact Info) Description 05/06/2024 Orders Only External Location [address] [place] [address] Provider, External Social History Tobacco Use Types [...] Description 11/19/2024 8:40 AM EDT Appointment [facility] [address]nd [place] [address] 11/19/2024 11:15 AM EDT Office Visit [facility] Multidisciplinary Oncology Clinic [address] [place] [address] Farhad Castillo MD [address] [address] documented as of this encounter Procedures Procedure [...] filedocumented in this encounter Care Teams Inside Horticultural Specialty Grower Relationship Specialty Start Date End Date Tayo Jones MD [address] [place] [id number] PCP - General 07/14/24 documented as of this encounter
--- OUTSIDE RECORDS SUMMARY | 2024-11-03 09:01 | XMS_ITS | Encounter Summary ---
Author Organization [facility] Address [address] [place] [address] Care Team Providers Care Customer Order Clerk Name Role Phone Tayo Jones MD Primary Care Provider [phone] Encounter Details Date Type Department Care Team (Late Contact Info) Description 05/31/2023 Orders Only External Location [address] [place] [address] Provider, External Social History Tobacco Use Types [...] Info) Description 11/19/2024 8:40 AM EDT Appointment [facility] [address] 2nd [place] [address] 11/19/2024 11:15 AM EDT Office Visit [facility] Multidisciplinary Oncology Clinic [address] [place] [address] Farhad Castillo MD [address] [address] documented as of this encounter Procedures Procedure [...] on filedocumented in this encounter Care Teams Customer Order Clerk Relationship Specialty Start Date End Date Tayo Jones MD [address] [place] [phone] PCP - General 07/14/24 documented as of this encounter
--- OUTSIDE RECORDS SUMMARY | 2024-11-03 09:01 | XMS_ITS | Encounter Summary ---
Author Organization [facility] Address [address] [place] [address] Care Team Providers Care Ccna Name Role Phone Tayo Jones MD Primary [...] any time in the past 12 m [facility], were you homeless or living in [...] Description 11/19/2024 8:40 AM EDT Appointment [facility] [address]nd [place] [address] 11/19/2024 11:15 AM EDT Office Visit [facility] Multidisciplinary Oncology Clinic [address] [place] [address] Farhad Castillo MD [address] [phone] documented as of this encounter Visit Diagnoses Not on filedocumented in this encounter Additional Health Concerns Assessment Noted Time A fall risk assessment has been complete d for the patient 07/23/2024 8:54 AM EDT A Body Mass Index follow-up plan has been documented for the patient 10/09/2024 3:15 PM EDT documented as of this encounter Care Teams Ccna Relationship Specialty Start Date End Date Tayo Jones MD [address] [place] [address] PCP - General 07/14/24 documented as of this encounter
--- OUTSIDE RECORDS SUMMARY | 2024-11-03 09:01 | XMS_ITS | Encounter Summary ---
Author Organization [facility] Address [address] [place] [address] Care Team Providers Care Manager Java Name Role Phone Tayo Jones MD Primary Care Provider [phone] Encounter Details Date Type Department Care Team (Late st Contact Info) Description 10/07/2024 Orders Only External Location [address] [place] [address] Provider, External Social History Tobacco Use Types [...] any time in the past 12 m [facility], were you homeless or living [...] [facility] [address], 2nd [place] [address] 11/19/2024 11:15 AM EDT Office Visit [facility] Multidisciplinary Oncology Clinic [address] [place] [address] Farhad Castillo MD [address] [place] [address] documented as of this encounter Procedures Procedure [...] documented as of this encounter Care Teams Manager Java Relationship Specialty Start Date End Date Tayo Jones MD [address] [place] [address] PCP - General 07/14/24 documented as of this encounter
--- OUTSIDE RECORDS SUMMARY | 2024-11-03 09:01 | XMS_ITS | Encounter Summary ---
Author Organization [facility] Address [address] [place] [address] Care Team Providers Care Specification Consultant Name Role Phone Tayo Jones MD Primary Care Provider [phone] Encounter Details Date Type Department Care Team (Late Contact Info) Description 06/15/2024 Orders Only External Location [address] [place] [address] Provider, External Social History Tobacco Use Types [...] 11/19/2024 8:40 AM EDT Appointment [facility] [address]nd [place] [address] 11/19/2024 11:15 AM EDT Office Visit [facility] Multidisciplinary Oncology Clinic [address] [place] [address] Farhad Castillo MD [address] [address] documented as of this encounter Procedures Procedure [...] on filedocumented in this encounter Care Teams Specification Consultant Relationship Specialty Start Date End Date Tayo Jones MD [address] [place] [address] PCP - General 07/14/24 documented as of this encounter
--- OUTSIDE RECORDS SUMMARY | 2024-11-03 09:01 | XMS_ITS | Encounter Summary ---
Author Organization [facility] Address [address] [place] [address] Care Team Providers Care Administrative Fellow Name Role Phone Tayo Jones MD Primary Care Provider [phone] Encounter Details Date Type Department Care Team [...] Info) Description 11/19/2024 8:40 AM EDT Appointment [facility] [address] 2nd [place] [address] 11/19/2024 11:15 AM EDT Office Visit [facility] Multidisciplinary Oncology Clinic [address] [place] [address] Farhad Castillo MD [address] [address] documented as of this encounter Visit Diagnoses Not on filedocumented in this encounter Additional Health Concerns Assessment Noted Time A fall risk assessment has been complete d for the patient 07/23/2024 8:54 AM EDT A Body Mass Index follow-up plan has been documented for the patient 10/09/2024 3:15 PM EDT documented as of this encounter Care Teams Administrative Fellow Relationship Specialty Start Date End Date Tayo Jones MD [address] [place] [address] PCP - General 07/14/24 documented as of this encounter
--- OUTSIDE RECORDS SUMMARY | 2024-11-03 09:01 | XMS_ITS | Encounter Summary ---
Author Organization [facility] Address [address] [place] [address] Care Team Providers Care Dry Cleaning Counter Clerk Name Role Phone Tayo Jones MD Primary Care Provider [phone] Encounter Details Date Type Department Care Team (Late Contact Info) Description 01/15/2023 Orders Only External Location [address] [place] [address] Sue Pope MD [address] [place] [phone] Social History Tobacco Use Types Packs/Day Years [...] 11/19/2024 8:40 AM EDT Appointment [facility] [address], [address] [place] [address] 11/19/2024 11:15 AM EDT Office Visit [facility] Multidisciplinary Oncology Clinic [address] [place] [address] Farhad Castillo MD [address] [address] documented as of this encounter Procedures Procedure [...] on filedocumented in this encounter Care Teams Dry Cleaning Counter Clerk Relationship Specialty Start Date End Date Tayo Jones MD [address] [phone] PCP - General 07/14/24 documented as of this encounter
--- OUTSIDE RECORDS SUMMARY | 2024-11-03 09:01 | XMS_ITS | Encounter Summary ---
Author Organization [facility] Address [address] [place] [address] Care Team Providers Care Production Sampler Name Role Phone Tayo Jones MD Primary Care Provider [phone] Encounter Details Date Type Department Care Team (Late Contact Info) Description 01/24/2023 Orders Only External Location [address] [place] [address] Sue Pope MD [address] [place] [phone] Social History Tobacco Use Types Packs/Day Years [...] Description 11/19/2024 8:40 AM EDT Appointment [facility] [address]nd [place] [address] 11/19/2024 11:15 AM EDT Office Visit [facility] Multidisciplinary Oncology Clinic [address] [place] [address] Farhad Castillo MD [address] [address] documented as of this encounter Procedures Procedure [...] on filedocumented in this encounter Care Teams Production Sampler Relationship Specialty Start Date End Date Tayo Jones MD [address] [place] [phone] PCP - General 07/14/24 documented as of this encounter
--- OUTSIDE RECORDS SUMMARY | 2024-11-03 09:01 | XMS_ITS | Encounter Summary ---
Author Organization [facility] Address [address] [place] [address] Care Team Providers Care Firefighter Marine Name Role Phone Tayo Jones MD Primary Care Provider [phone] Encounter Details Date Type Department Care Team (Late Contact Info) Description 02/18/2023 Orders Only External Location [address] [place] [address] Provider, External Social History Tobacco Use Types [...] Info) Description 11/19/2024 8:40 AM EDT Appointment [facility] [address], 2nd [place] [address] 11/19/2024 11:15 AM EDT Office Visit [facility] Multidisciplinary Oncology Clinic [address] [place] [address] Farhad Castillo MD [address] [address] documented as of this encounter Procedures Procedure [...] on filedocumented in this encounter Care Teams Firefighter Marine Relationship Specialty Start Date End Date Tayo Jones MD [address] [place] [address] PCP - General 07/14/24 documented as of this encounter
--- OUTSIDE RECORDS SUMMARY | 2024-11-03 09:01 | XMS_ITS | Encounter Summary ---
Author Organization [facility] Address [address] [place] [address] Care Team Providers Care Tank Driver Name Role Phone Tayo Jones MD Primary Care Provider [phone] Encounter Details Date Type Department Care Team (Late Contact Info) Description 05/06/2024 Orders Only External Location [address] [place] [address] Provider, External Social History Tobacco Use Types [...] Info) Description 11/19/2024 8:40 AM EDT Appointment [facility] [address]nd [place] [address] 11/19/2024 11:15 AM EDT Office Visit [facility] Multidisciplinary Oncology Clinic [address] [place] [address] Farhad Castillo MD [address] [address] documented as of this encounter Procedures Procedure [...] on filedocumented in this encounter Care Teams Tank Driver Relationship Specialty Start Date End Date Tayo Jones MD [address] [place] [phone] PCP - General 07/14/24 documented as of this encounter
--- OUTSIDE RECORDS SUMMARY | 2024-11-03 09:01 | XMS_ITS | Clinical Summary ---
Author Organization [facility] Address [address] [place] [address] Care Team Providers Care Manager Code Name Role Phone Jeremy Gil MD Unavailable [phone] Andres Alcantara DPM Unavailable Grant Fletcher MD Unavailable Niko Cueva MD Unavailable None, None Primary Care Provider UnavailGm Vigil DPM Unavailable Reina Byrd NP Unavailable Unavailable Allergies No known active allergies Medications Insulin Glargine (Lantus) 100 unit/mL (3 mL) Solostar INPNIndications :Type 2 diabetes mellitus with hyperglycemia, with long-term current use of insulin ([facility]) 16 Units by Subcutaneous route every [...] hyperglycemia, with long-term current use of insulin ([facility]) PVD (peripheral vascular disease) ([facility]) Other osteomyelitis of left foot Social [...] Advance Directives For more information, please contact: [phone] * Full Code (Latest Code Status on File) Date Activated Date Inactivated Comments 08/19/2020 3:05 AM No automated ch est compression devices for VAD Patients Care Teams Manager Code Relationship Specialty Start Date End Date None, None [address] [place] [address] PCP - General 10/26/20 Jeremy Gil MD [address] [facility] [address] [place] [address] Internal Medicine 08/19/20 Andres Alcantara DPM [address] [facility]. [address] [place] [address] Resident Podiatry 08/22/20 Grant Fletcher MD [address] [place] [address] [address] [place] [address] Infectious Diseases 09/08/20 Niko Cueva MD [address] [place] [address] [address] [place] [address] Vascular Surgery 09/16/20 Gm Flor DPM [address] [place] [address] [place] [address] Podiatry 11/01/20 Reina Byrd NP [address] [place] [address] [place] [address] Nurse Practitioner Vascular Surgery 11/30/20
--- OUTSIDE RECORDS SUMMARY | 2024-11-03 09:02 | XMS_ITS | Clinical Summary ---
Author Organization [facility] Address [address] [place] [address] Care Team Providers Care Professional Programmer Analyst Name Role Phone Tayo Jones MD Primary Care Provider [phone] Allergies No known active allergies Medications carvedilol [...] Hospital Encounter [facility] Emergency Department [address] [place] [address] Mickie Jefferson MD Hourigan, Jon S, MD Small bowel obstruction (CMS/HCC) (Primary Dx); Abdominal pain, generalized Discharge Disposition: Long Term Facility 10/08/2024 Travel 10/07/2024 Orders Only External Location [address] [place] [phone] Provider, External from Last 3 Months Family History Medical [...] any time in the past 12 m [facility], were you homeless or [...] 11/19/2024 8:40 AM EDT Appointment [facility] [address] [place] [address] 11/19/2024 11:15 AM EDT Office Visit [facility] Multidisciplinary Oncology Clinic [address] [place] [address] Farhad Castillo MD [address] [address] Health Maintenance Due Date Last Done Comments [facility]-Infant/Child/Adol SDOH Screenings 1964 Diabetes: Dental Exam 1974 [facility]-DTaP,Tdap,and Td Vaccines (1 - Tdap) 1983 [facility]-Hepatitis A Vaccines (1 of 2 - Risk 2-dose series) 1983 [facility]-Zoster Vaccines (1 of 2) 1983 [id number] Vaccine ( season) 2023 01/15/2022, 03/28/2021, 07/27/2020, [...] this topic Medical Devices Implanted Type Area Mortgage Closer Device Identifier Shelf Expiration Date Model / Serial / Lot Port Clearvue Power 8fr - S. - [id number] Implanted:Qty : 1 on 07/31/2024 by Farhad Castillo MD at [facility] Other Medication Pump Left: Chest [employer]-[id number] 07/13/2025 [id number] / . / [id number] Procedures Procedure Name Priority Date/Time Associated Diagnosis [...] OUTSIDE IMAGES 10/07/2024 7:5 8 PM EDT from Last 3 Months Results * (ABNORMAL) POCT glucose meter (10/09/2024 12:08 PM EDT) Only the most recent of8 resultswithin the time period is included. POCT [...] Comment 10/09/2024 12:12 PM EDT [facility] Corporate Travel Expert ID Alyx, Julia 025 12:12 PM EDT [facility] Device ID [id number] 10/09/2024 12:12 PM EDT [facility]ALTH[facility]ARE [facility] Specimen Type POC Capillary 10/09/2024 12:12 PM EDT [facility] Blood Capillary blood specimen / Unknown 10/09/2024 12:08 PM EDT 10/09/2024 12:12 PM EDT Jj Carson MD LAB POINT OF CARE TE ST DOCKED DEVICE UNSOLICITED RESULTS Final Result Performing Organization Address City/State/[facility] Co de Phone Number HEALTHCARE LAB [address] [place] [address] * XR Abdomen 1 View (10/09/2024 9:41 [...] of2 resultswithin the time period is included. WBC Count 9.06 3.70 - 10.30 10*3/uL LAB HEMATOLOGY METHOD 10/09/2024 4:52 AM EDT [facility] RBC Count 4.07(L) 4.60 - 6.10 10*6/uL LAB HEMATOLOGY METHOD 10/09/2024 4:52 AM EDT [facility] HGB 13.3(L) 13.7 - 17.5 g/dL LAB HEMATOLOGY METHOD 10/09/2024 4:52 AM EDT [facility] HCT 37.0(L) 40.0 - 51.0 % LAB HEMATOLOGY METHOD 10/09/2024 4:52 AM EDT [facility] Platelet Count 312 155 - 369 10*3/uL LAB HEMATOLOGY METHOD 10/09/2024 4:52 AM EDT [facility] MCV 91 79 - 98 fL LAB HEMATOLOGY METHOD 10/09/2024 4:52 AM EDT [facility] MCH 32.7(H) 26.0 - 32.0 pg LAB HEMATOLOGY METHOD 10/09/2024 4:52 AM EDT [facility] MCHC 35.9(H) 30.7 - 35.5 g/dL LAB HEMATOLOGY METHOD 10/09/2024 4:52 AM EDT [facility] RDW 13.5 11.5 - 14.5 % LAB HEMATOLOGY METHOD 10/09/2024 4:52 AM EDT [facility] MPV 9.1 8.8 - 12.5 fL LAB HEMATOLOGY METHOD 10/09/2024 4:52 AM EDT [facility] nRBC 0.0 <=0.0 per 100 WBCs LAB HEMATOLOGY METHOD 10/09/2024 4:52 AM EDT [facility] Blood Venous blood specimen / Unknown Venipuncture / Unknown 10/09/2024 4:28 AM EDT 10/09/2024 4:50 AM EDT us Eva Foote Clinical Trials Systems Administrator DIRECTOR OF REIMBURSEMENT, DNP LAB BLOOD ORDERABLE S Final Result [facility] [address] [place] [address] * (ABNORMAL) Basic metabolic panel (10/09/2024 4:28 AM EDT) Only the most recent of2 resultswithin the time period is included. Glucose, Plasma 286(H) 74 - 99 mg/dL 10/09/2024 5:48 AM EDT [facility] BUN, Plasma 36(H) 8 - 23 mg/dL 10/09/2024 5:48 AM EDT [facility] Creatinine, Plasma 1.45(H) 0.70 - 1.20 mg/dL 10/09/2024 5:48 AM EDT [facility] BUN/Creatinine Ratio 25 10/09/2024 5:48 AM EDT [facility] Sodium, Plasma 131(L) 136 - 145 mmol/L 10/09/2024 5:48 AM EDT [facility] Potassium, Plasma 3.4(L) 3.6 - 4.9 mmol/L 10/09/2024 5:48 AM EDT [facility] Comment:Hemolyzed, result ma y be falsely increased. Chloride, Plasma 99 97 - 107 mmol/L 10/09/2024 5:48 AM EDT [facility] CO2, Plasma 17(L) 22 - 29 mmol/L 10/09/2024 5:48 AM EDT [facility] Anion Gap 15 6 - 16 mmol/L 10/09/2024 5:48 AM EDT [facility] Total Calcium, Plasma 8.8(L) 8.9 - 10.2 mg/dL 10/09/2024 5:48 AM EDT [facility] eGFRcr 55.2 mL/min/1.7 3m*2 10/09/2024 5:48 AM EDT [facility] Comment:Reported eGFRcr in m L/min/1.73m2 is based the CKD-EPI 2020 equation that does not use a race coefficient. Blood Venous blood specimen / Unknown Venipuncture / Unknown 10/09/2024 4:28 AM EDT 10/09/2024 5:03 AM EDT us Eva Barnes DIRECTOR OF REIMBURSEMENT, DNP LAB BLOOD ORDERABLE S Final Result [facility] [address] [place] [address] * XR Gastrograffin Challenge (10/09/2024 1:17 AM [...] Wesley Joe MD on 10/09/2024 7:54 AM Jj Carson MD IMG XR PROCEDURES Final Result * Phosphorus, Plasma (10/08/2024 4:59 AM EDT) Only the most recent of2 resultswithin the time period is included. [facility] Phosphorus, Plasma 3.8 2.5 - 4.5 mg/dL 10/08/2024 6:00 AM EDT [facility] Blood Venous blood specimen / Unknown Venipuncture / Unknown 10/08/2024 4:59 AM EDT 10/08/2024 5:16 AM EDT us Jj Carson MD LAB BLOOD ORDERABLES Final Res ult [facility] [address] [place] [address] * (ABNORMAL) Magnesium, Plasma (10/08/2024 4:59 AM EDT) Only the most recent of2 resultswithin the time period is included. Pathologist [facility] Magnesium, Plasma 1.7(L) 1.9 - 2.4 mg/dL 10/08/2024 6:00 AM EDT [facility] Blood Venous blood specimen / Unknown Venipuncture / Unknown 10/08/2024 4:59 AM EDT 10/08/2024 5:16 AM EDT Jj Carson MD LAB BLOOD ORDERABLES Final Res ult Performing Organization Address City/[facility]/ZIP Co de Phone Number [facility] [address] [place] [address] * (ABNORMAL) Hemoglobin A1c (10/08/2024 4:59 AM EDT) Hemoglobin A1c 7.6(H) <5.7 % 10/08/2024 11:37 AM EDT [facility] Blood Venous blood specimen / Unknown Venipuncture / Unknown 10/08/2024 4:59 AM EDT 10/08/2024 5:01 AM EDT Narrative [facility] - 10/08/2024 11:37 AM EDT HA1C Interpretive Data: Diagnosis of Diabetes: Diabetic > or = 6.5% Pre-diabetic 5.7 to 6.4% Non-diabetic < or = 5.6% Glycemic Targets for Type I and Type II Diabetics: Non- Adults <7.0% Adults <6.0% Children and Adolescents <7.5% Source: [place] [employer]. Standards of medical care in diabetes,2017. Diabetes Care.2017:40 (suppl 1):S1-S135. 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 MUSE ECG Diagnosis Right bundle branch block Bifascicular block MUSE ECG Diagnosis Minimal voltage criteria for LVH, may be normal variant ( R in aVL ) MUSE ECG Diagnosis Abnormal ECG MUSE ECG Diagnosis MUSE ECG Diagnosis Confirmed by Adarsh Pichardo ([id number]) on 10/08/2024 10:50:58 AM MUSE ECG 10/08/2024 12:5 5 AM EDT 10/08/2024 10:50 AM EDT us Mickie Jefferson MD ECG ORDERABLES Final Result MUSE ECG * ED HIV 1/2 Antibody/Antigen Screen w/Reflex to HIV 1/2 Differentiation (10/08/2024 12:55 AM EDT) HIV 1 & 2 Antibody/Antigen Screen Non Reactive Non Reactive 10/08/2024 2:00 AM EDT [facility] Comment:Screening for HIV 1 & 2 antibodies, and P24 antigen is NONREACTIVE. No confirmatory testing is required. Blood Venous blood specimen / Unknown Venipuncture / Unknown 10/08/2024 12:55 AM EDT 10/08/2024 1:11 AM EDT us Mickie Jefferson MD LAB BLOOD ORDERABLES Final Re sult Performing Organization Address [facility] Co de Phone Number [facility] [address] [place] [address] * Lactic acid, venous (10/08/2024 12:55 AM EDT) [facility] Lactate, Venous, Whole Blood 1.1 0.5 - 2.2 mmol/L LAB HEMATOLOGY METHOD 10/08/2024 1:10 AM EDT [facility] Blood Venous blood specimen / Unknown Venipuncture / Unknown 10/08/2024 12:55 AM EDT 10/08/2024 1:07 AM EDT us Mickie Jefferson MD LAB BLOOD ORDERABLES Final Re sult Performing Organization Address [facility] Co de Phone Number [facility] [address] [place] [address] * Hepatitis C Antibody - ED (10/08/2024 12:55 AM EDT) [facility] Hepatitis C Antibody Negative Negative 10/08/2024 2:16 AM EDT [facility] Blood Venous blood specimen / Unknown Venipuncture / Unknown 10/08/2024 12:55 AM EDT 10/08/2024 1:11 AM EDT us Mickie Jefferson MD LAB BLOOD ORDERABLES Final Re sult Performing Organization Address [facility] Co de Phone Number [facility] [address] [place] [address] * (ABNORMAL) PT-INR (10/08/2024 12:55 AM EDT) [facility] Prothrombin Time 14.7(H) 12.0 - 14.3 sec 10/08/2024 1:27 AM EDT [facility] INR 1.2(H) 0.9 - 1.1 10/08/2024 1:27 AM EDT [facility] Blood Venous blood specimen / Unknown Venipuncture / Unknown 10/08/2024 12:55 AM EDT 10/08/2024 1:05 AM EDT Narrative [facility] - 10/08/2024 1:27 AM EDT OPTIMAL INR RANGES FOR PATIENT ON ORAL ANTICOAGULANT THERAPY Prevention of venous thromboembolism INR 2.0 to 3.0 In patients with heart disease: Atrial fibrillation INR 2.0 to 3.0 Valvular heart disease INR 2.0 to 3.0 Tissue heart valves INR 2.0 to 3.0 Mechanical prosthetic valves INR 2.5 to 3.5 Prevention of recurrent IN INR 2.5 to 3.5 us Mickie Jefferson MD LAB BLOOD ORDERABLES Final Re sult [facility] [address] [place] [address] * (ABNORMAL) CBC w/diff (10/08/2024 12:55 AM EDT) WBC Count 11.32(H) 3.70 - 10.30 10*3/uL LAB HEMATOLOGY METHOD 10/08/2024 1:09 AM EDT [facility] RBC Count 4.20(L) 4.60 - 6.10 10*6/uL LAB HEMATOLOGY METHOD 10/08/2024 1:09 AM EDT [facility] HGB 13.9 13.7 - 17.5 g/dL LAB HEMATOLOGY METHOD 10/08/2024 1:09 AM EDT [facility] HCT 38.0(L) 40.0 - 51.0 % LAB HEMATOLOGY METHOD 10/08/2024 1:09 AM EDT [facility] Platelet Count 293 155 - 369 10*3/uL LAB HEMATOLOGY METHOD 10/08/2024 1:09 AM EDT [facility] MCV 91 79 - 98 fL LAB HEMATOLOGY METHOD 10/08/2024 1:09 AM EDT [facility] MCH 33.1(H) 26.0 - 32.0 pg LAB HEMATOLOGY METHOD 10/08/2024 1:09 AM EDT [facility] MCHC 36.6(H) 30.7 - 35.5 g/dL LAB HEMATOLOGY METHOD 10/08/2024 1:09 AM EDT [facility] RDW 13.5 11.5 - 14.5 % LAB HEMATOLOGY METHOD 10/08/2024 1:09 AM EDT [facility] MPV 10.0 8.8 - 12.5 fL LAB HEMATOLOGY METHOD 10/08/2024 1:09 AM EDT [facility] nRBC 0.0 <=0.0 per 100 WBCs LAB HEMATOLOGY METHOD 10/08/2024 1:09 AM EDT [facility] Differential Type Automated LAB HEMATOLOGY METHOD 10/08/2024 1:09 AM EDT [facility] Neutrophils % 70 % LAB HEMATOLOGY METHOD 10/08/2024 1:09 AM EDT [facility] Lymphocytes % 10 % LAB HEMATOLOGY METHOD 10/08/2024 1:09 AM EDT [facility] Monocytes % 18 % LAB HEMATOLOGY METHOD 10/08/2024 1:09 AM EDT [facility] Eosinophils % 0 % LAB HEMATOLOGY METHOD 10/08/2024 1:09 AM EDT [facility] Basophils % 1 % LAB HEMATOLOGY METHOD 10/08/2024 1:09 AM EDT [facility] Immature Granulocytes % 1 % LAB HEMATOLOGY METHOD 10/08/2024 1:09 AM EDT [facility] Neutrophils Absolute 7.97(H) 1.60 - 6.10 10*3/uL LAB HEMATOLOGY METHOD 10/08/2024 1:09 AM EDT [facility] Lymphocytes Absolute 1.17(L) 1.20 - 3.90 10*3/uL LAB HEMATOLOGY METHOD 10/08/2024 1:09 AM EDT [facility] Monocytes Absolute 2.01(H) 0.30 - 0.90 10*3/uL LAB HEMATOLOGY METHOD 10/08/2024 1:09 AM EDT [facility] Eosinophils Absolute 0.02 0.00 - 0.50 10*3/uL LAB HEMATOLOGY METHOD 10/08/2024 1:09 AM EDT [facility] Basophils Absolute 0.07 0.00 - 0.10 10*3/uL LAB HEMATOLOGY METHOD 10/08/2024 1:09 AM EDT [facility] Immature Granulocytes Absolute 0.08(H) 0.00 - 0.06 10*3/uL LAB HEMATOLOGY METHOD 10/08/2024 1:09 AM EDT [facility] Blood Venous blood specimen / Unknown Venipuncture / Unknown 10/08/2024 12:55 AM EDT 10/08/2024 1:05 AM EDT Narrative [facility] - 10/08/2024 1:09 AM EDT Therapeutic decision making should be based on absolute values, rather than percentages. us Mickie Jefferosn MD LAB BLOOD ORDERABLES Final Re sult Performing Organization Address City/[facility]/ZIP Co de Phone Number [facility] [address] [place] [address] * Type and screen (10/08/2024 12:55 AM [...] ORDERABLE S Final Result Performing Organization Address [facility] Co de Phone Number BLOOD BANK [address] [place] [address], [place] * (ABNORMAL) CMP (10/08/2024 12:55 AM EDT) Glucose, Plasma 235(H) 74 - 99 mg/dL 10/08/2024 1:37 AM EDT [facility] BUN, Plasma 44(H) 8 - 23 mg/dL 10/08/2024 1:37 AM EDT [facility] Creatinine, Plasma 1.52(H) 0.70 - 1.20 mg/dL 10/08/2024 1:37 AM EDT [facility] BUN/Creatinine Ratio 29 10/08/2024 1:37 AM EDT [facility] Sodium, Plasma 125(L) 136 - 145 mmol/L 10/08/2024 1:37 AM EDT [facility] Potassium, Plasma 3.8 3.6 - 4.9 mmol/L 10/08/2024 1:37 AM EDT [facility] Chloride, Plasma 93(L) 97 - 107 mmol/L 10/08/2024 1:37 AM EDT [facility] CO2, Plasma 14(L) 22 - 29 mmol/L 10/08/2024 1:37 AM EDT [facility] Anion Gap 18(H) 6 - 16 mmol/L 10/08/2024 1:37 AM EDT [facility] Total Calcium, Plasma 9.2 8.9 - 10.2 mg/dL 10/08/2024 1:37 AM EDT [facility] Total Protein 7.3 6.3 - 7.9 g/dL 10/08/2024 1:37 AM EDT [facility] Albumin, Plasma 3.9 3.5 - 5.2 g/dL 10/08/2024 1:37 AM EDT [facility] AST, Plasma 24 10 - 50 U/L 10/08/2024 1:37 AM EDT [facility] Comment:Hemolyzed, result ma y be falsely increased. ALT, Plasma 12 10 - 50 U/L 10/08/2024 1:37 AM EDT [facility] Alkaline Phosphatase, Plasma 89 40 - 115 U/L 10/08/2024 1:37 AM EDT [facility] Total Bilirubin, Plasma 0.8 0.2 - 1.1 mg/dL 10/08/2024 1:37 AM EDT [facility] eGFRcr 52.1 mL/min/1.7 3m*2 10/08/2024 1:37 AM EDT [facility] Comment:Reported eGFRcr in m L/min/1.73m2 is based the CKD-EPI 2020 equation that does not use a race coefficient. Blood Venous blood specimen / Unknown Venipuncture / Unknown 10/08/2024 12:55 AM EDT 10/08/2024 1:05 AM EDT us Mickie Jefferson MD LAB BLOOD ORDERABLES Final Re sult [facility] [address] [place] [address] * CT OUTSIDE IMAGES (10/07/2024 7:58 PM EDT) Anatomical Region Laterality Modality Computed Tomogra phy 10/07/2024 7:58 PM EDT us External Provider IMG CT PROCEDURES Final Result from Last 3 Months Insurance [place]ICA[place] Advance Directives * Full Code (Latest Code Status on File) Date Activated Date Inactivated Comments 10/08/2024 4:28 AM 10/09/2024 5:43 PM Question Answer Comments I have reviewed the capacity from the link above and, if needed, have updated to appropriate status: Yes Care Teams Professional Programmer Analyst Relationship Specialty Start Date End Date Tayo Jones MD [address] [place] [address] PCP - General 07/14/24
--- OUTSIDE RECORDS SUMMARY | 2024-11-03 09:02 | XMS_ITS ---
Author Organization [facility] Address [address] [place] [address] Care Team Providers Care Mechanical Manufacturing Technician Name Role Phone Tayo Jones MD Primary Care Provider [phone] Active Problems Problem Noted Date Diagnosed Date [...]
[2024-11-03 09:18] LABS: Albumin Level 3.9 g/dl (3.5-5.0); Chloride 106 mmol/L (98-107); Sodium 134 mmol/L (136-145)
[2024-11-03 09:19] LABS: Potassium 4.1 mmoL/L (3.5-5.1)
[2024-11-03 09:20] LABS: Hematocrit 35.1 % (42.0-52.0); Hemoglobin 11.9 g/dL (14.1-18.0); Immature Granulocytes % 1.2 %; Mean Corpuscular HGB Conc 33.9 g/dL (31.8-35.4); Mean Corpuscular Hemoglobin 31.4 pg (27.0-31.2); Mean Corpuscular Volume 92.6 fl (80-94); Nucleated Red Blood Cells % 0 %; Platelet Count 326 K/mm3 (142-424); Red Blood Count 3.79 M/mm3 (4.60-6.20); Red Cell Distribution Width-SD 46.8 fL; White Blood Count 10.0 K/mm3 (4.8-10.8)
[2024-11-03 09:21] LABS: Alanine Aminotransferase 19 U/L (12-78); Alkaline Phosphatase 83 U/L (38-126); Anion Gap 11.1 mEq/L (5-15); Aspartate Amino Transferase 34 U/L (17-59); Bilirubin,Total 0.6 mg/dl (0.2-1.3); Blood Urea Nitrogen 13 mg/dl (9-20); Carbon Dioxide 21 mmol/L (22.0-30.0); Creatinine,Serum 0.80 mg/dl (0.66-1.25); Estimated Glomerular Filt Rate 99 ml/min (>60); GFR (African American) 119 ML/MIN (>60)
[2024-11-03 09:22] LABS: Albumin/Globulin Ratio 1.3 (1.1-1.8); Calcium 9.2 mg/dl (8.4-10.2); Globulin 3.0 g/dL (1.3-3.2); Glucose 173 mg/dl (74-100); Magnesium 1.7 mg/dl (1.6-2.3); Total Protein,Serum 6.9 g/dl (6.3-8.2)
[2024-11-03 10:12] VITALS: BP 131/77; PULSE 72; RESP 18; TEMP 37; O2SAT 99
[2024-11-03] MEDS: DEXAMETHASONE 4MG TABLET 12 MG (10:12)
[2024-11-03] MEDS: 0.9 % SODIUM CHLORIDE 50 ML IV (10:12)
[2024-11-03] MEDS: ONDANSETRON 4MG ODT 16 MG (10:12)
[2024-11-03] MEDS: SODIUM CHLORIDE 0.9% 10ML FLUSH SYRINGE 10 ML IV (10:21)
[2024-11-03 10:40] VITALS: BP 127/72; PULSE 76; RESP 20; O2SAT 98
[2024-11-03] MEDS: WATER IV (10:40)
[2024-11-03] MEDS: DEXTROSE 5% IV (10:40)
[2024-11-03] MEDS: IRINOTECAN HCL IV (10:40)
[2024-11-03 11:10] VITALS: BP 123/75; PULSE 75; RESP 20; O2SAT 98
[2024-11-03 11:40] VITALS: BP 129/73; PULSE 72; RESP 20; O2SAT 99
[2024-11-03 12:29] VITALS: BP 125/77; PULSE 78; RESP 20; O2SAT 98
== END 2024-11-03 12:29 | disposition home or self-care (01) ==
LOC: INF 08:58
PROVIDERS: PCP Family Medicine; Visit Provider Internal Medicine Medical Oncology
DX: C18.2 Malignant neoplasm of ascending colon (principal)
CPT/HCPCS: 80053; 83735; 85025; 96413; 96415; J1642; J7060; J8540; J9206; Q0162

== ENCOUNTER 2024-11-10 09:42 | Outpatient (CLI) | payer MEDICAID, SELFPAY ==
--- OUTSIDE RECORDS SUMMARY | 2024-10-08 00:10 | XMS_ITS | Encounter Summary ---
Author Organization [facility] Address [address] [id number] Care Team Providers Care Rug Dry Room Attendant Name Role Phone Tayo Jones MD Primary Care Provider [phone] Reason for Visit * Reason Comments Abdominal Pain * Auth/Cert (Routine) Specialty Diagnoses / Procedures Referred By Samia t Referred To Contact Diagnoses Bowel obstruction (CMS/HCC) Bowel Obstruction, hx of Colon Cancer Wilda Carson MD [address] [address] Phone: tel: fax: [facility] Emergency Department [address] [place] [address] Phone: tel: Referral ID Status Reason Start Date Expiration Date Visits Re quested Visits Authorized [id number] 1 1 Encounter Details Date Type Department Care Team (Latest Contact Info) Description 10/08/2024 12:10 AM EDT - 10/09/2024 3:38 PM EDT Hospital Encounter [facility] Emergency Department [address] [place] [address] Mickie Jefferson MD [address] [place] [address] Wilda Carson MD [address] [address] Small bowel obstruction (CMS/HCC) (Primary Dx); Abdominal pain, generalized Discharge Disposition: Prison Facility Social History Tobacco Use Types Packs/Day [...] any time in the past 12 m [facility], were you homeless or living in a intermediate (including now)? No 10/09/2024 Utilities Answer Date [...] follow up your medical oncology team at [facility] Questions: Call the [facility] at [phone] during business hours on weekdays or call [facility]'s after hours at [phone] to speak with a resident telephonic rn for Colorectal surgery after 5pm or on [...] Note Nayan Womack 59 y.o. 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: Self/ Facility Assistance Available at Discharge: Availability of Care Givers (#Hours): 24 hours Discharge Facility/Level of Care Needs: Discharge Facility/Level of Care Needs: 3-Prison Facility Patient's Choice of Community Agency(s): [facility] ([facility]) Patient/Family Anticipated Services at Transition: Patient/Family Anticipated Services at Transition: none DME/Equipment Needed after Discharge: Equipment Currently Used at Home: none Readmission Within the Last 30 Days: Readmission Within the Last 30 Days: no previous admission in last 30 days Medicare Documentation: Medicare Second Notice?: No (N/A -1 Day) Follow-up: Franky Kim PA [address] [place] [address] Discharge Transportation: Transportation Anticipated: family or friend will provide Transportation Home at Discharge: Family/Friend will Provide Follow Up Transport: Transportation Needed to Follow up Appoinments: Other(Comment) (Facility) Additional Comments: POC reviewed with primary team. Refer to primary team's discharge note for details. Per MD pt is medically ready to discharge today. Pt is a ltc resident at a [facility]. Dispo: [facility] Facility: Replaced By [facility] Facility Address: [address] [place] [address] RN to call Report: [phone] DC summary Fax: SW Sent through [facility] Transport: Sister to transport Patient is in [...] (currently on chemo) who presented to the [facility] on 10/08/2024 from anOSH d/t a bowel obstruction. His oncology care is provided at [facility]. CT imaging on presentation with diffusely [...] name and Address: Tayo Jones MD [address] [facility] [address] Referring provider name and address: Franky Kim PA [address] [facility] [address] [place] [address] Chief Concern, Brief History of Present Illness, and Hospital Course Nayan Womack is a 59 y.o. male with PMHx significant for moderately differentiated colon adenocarcinoma s/p R colectomy and adjuvant xeloda, loss to follow up, and recent representation with metastatic disease to the liver (currently on chemo) who presented to the [facility] on 10/08/2024 from [facility] d/t a bowel obstruction. His oncology care is provided at [facility]. CT imaging on presentation with diffusely [...] Center 11/19/2024 8:[address] 1 [facility] 11/19/2024 11:15 AM Farhad Castillo MD [...] from the original note were not included. [facility] Department of Surgery Division of Colorectal Surgery Surgery Progress Note 10/09/24 Nayan Womack Subjective Subjective: HPI Nayan Womack is a 59 y.o. male with PMHx significant for moderately differentiated colon adenocarcinoma s/p R colectomy and adjuvant xeloda, loss to follow up, and recent representation with metastatic disease to the liver currently at [facility](driven by Onc at [facility]) who presented to the [facility] on 10/08/2024 from an OSH d/t a [...] liver currently at chemo(driven by Onc at [facility]) who presented to the [facility] on 10/08/2024 from an OSH d/t a [...] from the original note were not included. [facility] Department of Surgery Division of Colorectal [...] liver currently at chemo(driven by Onc at [facility]) who presented to the [facility] on 10/08/2024 from an OSH d/t a [...] History Administered Date(s) Administered Moderna COVID-19 Vaccine (Care Manager) 12+ years 06/29/2020, 07/27/2020, 03/28/2021 Pfizer-BioNTech COVID-19 [...] liver currently at chemo(driven by Onc at [facility]) who presented to the [facility] on 10/08/2024 from an OSH d/t a [...] down and gluc 225 -f/u CT imaging -[facility] Dispo: Admit to scr CODE [...] Review Outcome: Ongoing, Progressing Flowsheets (Taken 10/09/2024 4900) Plan of Care Reviewed With: patient Goal: Patient-Specific Goal (Individualized) Outcome: Ongoing, Progressing Goal: Absence of Hospital-Acquired Illness or Injury Outcome: Ongoing, Progressing Intervention: Identify and Manage Fall Risk Flowsheets (Taken 10/09/2024826) Safety Promotion/Fall Prevention: assistive device/personal items within [facility] fall prevention program maintained safety round/check completed mobility aid in [facility] clutter-free environment maintained Intervention: Prevent Infection Flowsheets [...] Safety Promotion/Fall Prevention: assistive device/personal items within [facility] fall prevention program maintained safety round/check completed mobility aid in [facility] clutter-free environment maintained Intervention: Prevent Infection Flowsheets [...] and oriented to person, place, and time. Basco Coma Scale Score: 15 ED Course & [...] 10/08/24427 Notify Provider Until discontinued Acknowledged DHIRAJ [facility] 10/08/24427 Intake and Output - Strict Per unit protocol Acknowledged DHIRAJ KELLY [facility]oper 10/08/24427 Insert peripheral IV Once Placed in And Linked Group Acknowledged SANDS KLELY Hooper 10/08/24427 Saline lock IV Once Placed in And Linked Group Acknowledged SANDS KELLY Hooper 10/08/24427 Once Canceled SANDYang KELLY Hooper 10/08/24427 Full code Continuous Acknowledged DHIRAJ KELLY Hooper 10/08/24427 NPO diet Diet effective now Acknowledged DHIRAJ [facility] 10/08/24427 Mobility Orders Until discontinued Acknowledged SANDS [facility] 10/08/24427 Incentive spirometry Every 1 hour while awake Darrell HEARN [facility] 10/08/24427 Nasogastric tube maintenance Connect to: Low [...] S ED Course as of 10/08/24 0516 [facility] Oct 08, 2024 005 Upon arrival, patient [...] None Disposition Admit Admitting/Attending Physician: WILDA CARSON [[id number]] Provider Care Team: MEIR MANZANARES COLORECTAL SURGERY [...] Info) Description 11/19/2024 8:40 AM EDT Appointment [facility] [address] [facility] [address] [place] [address] 11/19/2024 11:15 AM EDT Office Visit [facility] Multidisciplinary Oncology Clinic [address] [place] [address] Farhad Castillo MD [address] [phone] documented as of this encounter Procedures Procedure [...] for testing. Comment 10/09/2024 12:12 PM EDT [facility] Data Collection Interviewer ID Julia Wisdom 025 12:12 PM EDT [facility] Device ID [id number] 10/09/2024 12:12 PM EDT [facility] Specimen Type POC Capillary 10/09/2024 12:12 PM EDT [email or web address] Blood Capillary blood specimen / Unknown 10/09/2024 12:08 PM EDT 10/09/2024 12:12 PM EDT Wilda Carson MD LAB POINT OF CARE TE ST DOCKED DEVICE UNSOLICITED RESULTS Final Result Performing Organization Address City/State/[facility] Co de Phone Number HEALTHCARE LAB [address] [place] [place] [address] * XR Abdomen 1 View (10/09/2024 9:41 [...] for testing. Comment 10/09/2024 5:49 AM EDT [facility] Data Collection Interviewer ID Flor Marks 10/09/2024 5:49 AM EDT [facility] Device ID [id number] 10/09/2024 5:49 AM EDT [facility] Specimen Type POC Capillary 10/09/2024 5:49 AM EDT [facility] Blood Capillary blood specimen / Unknown 10/09/2024 5:47 AM EDT 10/09/2024 5:49 AM EDT us Wilda Carson MD LAB POINT OF CARE TE ST DOCKED DEVICE UNSOLICITED RESULTS Final Result Performing Organization Address City/State/[facility] Co de Phone Number [facility]ARE [facility] [address] [place] [place] [address] * (ABNORMAL) Basic metabolic panel (10/09/2024 4:28 AM EDT) Glucose, Plasma 286(H) 74 - 99 mg/dL 10/09/2024 5:48 AM EDT [facility] BUN, Plasma 36(H) 8 - 23 mg/dL 10/09/2024 5:48 AM EDT [facility] Creatinine, Plasma 1.45(H) 0.70 - 1.20 mg/dL 10/09/2024 5:48 AM EDT [facility] BUN/Creatinine Ratio 25 10/09/2024 5:48 AM EDT [facility] Sodium, Plasma 131(L) 136 - 145 mmol/L 10/09/2024 5:48 AM EDT [facility] Potassium, Plasma 3.4(L) 3.6 - 4.9 mmol/L 10/09/2024 5:48 AM EDT [facility] Comment:Hemolyzed, result ma y be falsely increased. Chloride, Plasma 99 97 - 107 mmol/L 10/09/2024 5:48 AM EDT [facility] CO2, Plasma 17(L) 22 - 29 mmol/L 10/09/2024 5:48 AM EDT [facility] Anion Gap 15 6 - 16 mmol/L 10/09/2024 5:48 AM EDT [facility] Total Calcium, Plasma 8.8(L) 8.9 - 10.2 mg/dL 10/09/2024 5:48 AM EDT [facility] eGFRcr 55.2 mL/min/1.7 3m*2 10/09/2024 5:48 AM EDT [facility] Comment:Reported eGFRcr in m L/min/1.73m2 is based the CKD-EPI 2020 equation that does not use a race coefficient. Blood Venous blood specimen / Unknown Venipuncture / Unknown 10/09/2024 4:28 AM EDT 10/09/2024 5:03 AM EDT Eva Barnes MIDDLE CARD TENDER, DNP LAB BLOOD ORDERABLE S Final Result [facility] [address] [place] [address] * (ABNORMAL) CBC W/O Differential (10/09/2024 4:28 AM EDT) WBC Count 9.06 3.70 - 10.30 10*3/uL LAB HEMATOLOGY METHOD 10/09/2024 4:52 AM EDT [facility] RBC Count 4.07(L) 4.60 - 6.10 10*6/uL LAB HEMATOLOGY METHOD 10/09/2024 4:52 AM EDT [facility] HGB 13.3(L) 13.7 - 17.5 g/dL LAB HEMATOLOGY METHOD 10/09/2024 4:52 AM EDT [facility] HCT 37.0(L) 40.0 - 51.0 % LAB HEMATOLOGY METHOD 10/09/2024 4:52 AM EDT [facility] Platelet Count 312 155 - 369 10*3/uL LAB HEMATOLOGY METHOD 10/09/2024 4:52 AM EDT [facility] MCV 91 79 - 98 fL LAB HEMATOLOGY METHOD 10/09/2024 4:52 AM EDT [facility] MCH 32.7(H) 26.0 - 32.0 pg LAB HEMATOLOGY METHOD 10/09/2024 4:52 AM EDT [facility] MCHC 35.9(H) 30.7 - 35.5 g/dL LAB HEMATOLOGY METHOD 10/09/2024 4:52 AM EDT [facility] RDW 13.5 11.5 - 14.5 % LAB HEMATOLOGY METHOD 10/09/2024 4:52 AM EDT [facility] MPV 9.1 8.8 - 12.5 fL LAB HEMATOLOGY METHOD 10/09/2024 4:52 AM EDT [facility] nRBC 0.0 <=0.0 per 100 WBCs LAB HEMATOLOGY METHOD 10/09/2024 4:52 AM EDT [facility] Blood Venous blood specimen / Unknown Venipuncture / Unknown 10/09/2024 4:28 AM EDT 10/09/2024 4:50 AM EDT Eva Barnes MIDDLE CARD TENDER, DNP LAB BLOOD ORDERABLE S Final Result [facility] [address] [place] [address] * XR Gastrograffin Challenge (10/09/2024 1:17 AM [...] POCT glucose meter (10/08/2024 11:59 PM EDT) [facility] POCT Glucose 287(H) 74 - [...] Comment 10/09/2024 12:00 AM EDT [facility]ALTHCARE LAB Data Collection Interviewer ID Selina, Flor 10/09/2024 12:00 AM EDT [facility]ALTH[facility]ARE LAB Device ID [id number] 10/09/2024 12:00 AM EDT [facility]ARE [facility] Specimen Type POC Capillary 10/09/2024 12:00 AM EDT [facility] Blood Capillary blood specimen / Unknown 10/08/2024 11:59 PM EDT 10/09/2024 12:00 AM EDT us Wilda Carson MD LAB POINT OF CARE TE ST DOCKED DEVICE UNSOLICITED RESULTS Final Result Performing Organization Address City/State/[facility] Co de Phone Number [facility] [address] [place] [address] * (ABNORMAL) POCT glucose meter (10/08/2024 9:01 PM EDT) [facility] POCT Glucose 284(H) 74 - [...] 10/08/2024 9:03 PM EDT [facility] Data Collection Interviewer ID Isma Quiroz 025 9:03 PM EDT [facility] Device ID [id number] 10/08/2024 9:03 PM EDT HEALTH[facility]ARE LAB Specimen Type POC Capillary 10/08/2024 9:03 PM EDT [facility]ARE [facility] Blood Capillary blood specimen / Unknown 10/08/2024 9:01 PM EDT 10/08/2024 9:03 PM EDT us Wilda Carson MD LAB POINT OF CARE TE ST DOCKED DEVICE UNSOLICITED RESULTS Final Result Performing Organization Address City/[facility] Co de Phone Number [facility]ALTHCARE LAB [address] [place] [address] * (ABNORMAL) POCT glucose meter (10/08/2024 5:08 [...] 10/08/2024 5:10 PM EDT [facility] Data Collection Interviewer ID Franchesca Herrera 5:10 PM EDT HEALTHCARE LAB Device ID [id number] 10/08/2024 5:10 PM EDT HEALTHCARE LAB Specimen Type POC Capillary 10/08/2024 5:10 PM EDT [facility]ARE [facility] Blood Capillary blood specimen / Unknown 10/08/2024 5:08 PM EDT 10/08/2024 5:10 PM EDT us Wilda Carson MD LAB POINT OF CARE TE ST DOCKED DEVICE UNSOLICITED RESULTS Final Result Performing Organization Address City/[facility] Co de Phone Number [facility]ARE [facility] [address] [place] [address] * (ABNORMAL) POCT glucose meter (10/08/2024 11:57 [...] Comment 10/08/2024 11:59 AM EDT HEALTHCARE LAB Data Collection Interviewer ID Phuong Glass 025 11:59 AM EDT HEALTHCARE LAB Device ID [id number] 10/08/2024 11:59 AM EDT HEALTH[facility]ARE LAB Specimen Type POC Capillary 10/08/2024 11:59 AM EDT [facility]ARE [facility] Blood Capillary blood specimen / Unknown 10/08/2024 11:57 AM EDT 10/08/2024 11:59 AM EDT Wilda Carson MD LAB POINT OF CARE TE ST DOCKED DEVICE UNSOLICITED RESULTS Final Result Performing Organization Address City/State/[facility] Co de Phone Number [facility] [address] [place] [address] * (ABNORMAL) POCT glucose meter (10/08/2024 7:55 AM EDT) [facility] POCT Glucose 248(H) 74 - [...] 10/08/2024 7:57 AM EDT [facility] Data Collection Interviewer ID Phuong Glass 025 7:57 AM EDT [facility] Device ID [id number] 10/08/2024 7:57 AM EDT [facility] Specimen Type POC Capillary 10/08/2024 7:57 AM EDT [facility]ALTH[facility]ARE [facility] Blood Capillary blood specimen / Unknown 10/08/2024 7:55 AM EDT 10/08/2024 7:57 AM EDT Wilda Carson MD LAB POINT OF CARE TE ST DOCKED DEVICE UNSOLICITED RESULTS Final Result Performing Organization Address City/[facility]/ZIP Co de Phone Number [facility]ARE [facility] [address] [place] [address] * (ABNORMAL) POCT glucose meter (10/08/2024 5:40 [...] Comment 10/08/2024 5:42 AM EDT HEALTHCARE LAB Data Collection Interviewer ID Bj Canales 10/08/2024 5:42 AM EDT HEALTHCARE LAB Device ID [id number] 10/08/2024 5:42 AM EDT [facility] Specimen Type POC Capillary 10/08/2024 5:42 AM EDT [facility] Blood Capillary blood specimen / Unknown 10/08/2024 5:40 AM EDT 10/08/2024 5:42 AM EDT Wilda Carson MD LAB POINT OF CARE TE ST DOCKED DEVICE UNSOLICITED RESULTS Final Result Performing Organization Address City/[facility]/ZIP Co de Phone Number [facility]ALTH[facility]ARE [facility] [address] [place] [address] * (ABNORMAL) Hemoglobin A1c (10/08/2024 4:59 AM EDT) Hemoglobin A1c 7.6(H) <5.7 % 10/08/2024 11:37 AM EDT [facility] Blood Venous blood specimen / Unknown Venipuncture / Unknown 10/08/2024 4:59 AM EDT 10/08/2024 5:01 AM EDT Narrative [facility] - 10/08/2024 11:37 AM EDT HA1C Interpretive Data: Diagnosis of Diabetes: Diabetic > or = 6.5% Pre-diabetic 5.7 to 6.4% Non-diabetic < or = 5.6% Glycemic Targets for Type I and Type II Diabetics: Non- Adults <7.0% Adults <6.0% Children and Adolescents <7.5% Source: [place] [employer]. Standards of medical care in diabetes,2017. Diabetes Care.2017:40 (suppl 1):S1-S135. us Wilda Carson MD LAB BLOOD ORDERABLES Final Res ult Performing Organization Address City/[facility] [place] [address] * Phosphorus, Plasma (10/08/2024 4:59 AM EDT) Phosphorus, Plasma 3.8 2.5 - 4.5 mg/dL 10/08/2024 6:00 AM EDT [facility] Blood Venous blood specimen / Unknown Venipuncture / Unknown 10/08/2024 4:59 AM EDT 10/08/2024 5:16 AM EDT us Wilda Carson MD LAB BLOOD ORDERABLES Final Res ult Performing Organization Address [facility] [place] [address] * (ABNORMAL) Magnesium, Plasma (10/08/2024 4:59 AM EDT) Magnesium, Plasma 1.7(L) 1.9 - 2.4 mg/dL 10/08/2024 6:00 AM EDT [facility] Blood Venous blood specimen / Unknown Venipuncture / Unknown 10/08/2024 4:59 AM EDT 10/08/2024 5:16 AM EDT us Wilda Carson MD LAB BLOOD ORDERABLES Final Res ult Performing Organization Address [facility] Co de Phone Number [facility] [address] [place] [address] * (ABNORMAL) CBC W/O Differential (10/08/2024 4:59 AM EDT) WBC Count 9.53 3.70 - 10.30 10*3/uL LAB HEMATOLOGY METHOD 10/08/2024 5:04 AM EDT [facility] RBC Count 4.33(L) 4.60 - 6.10 10*6/uL LAB HEMATOLOGY METHOD 10/08/2024 5:04 AM EDT [facility] HGB 14.1 13.7 - 17.5 g/dL LAB HEMATOLOGY METHOD 10/08/2024 5:04 AM EDT [facility] HCT 39.4(L) 40.0 - 51.0 % LAB HEMATOLOGY METHOD 10/08/2024 5:04 AM EDT [facility] Platelet Count 279 155 - 369 10*3/uL LAB HEMATOLOGY METHOD 10/08/2024 5:04 AM EDT [facility] MCV 91 79 - 98 fL LAB HEMATOLOGY METHOD 10/08/2024 5:04 AM EDT [facility] MCH 32.6(H) 26.0 - 32.0 pg LAB HEMATOLOGY METHOD 10/08/2024 5:04 AM EDT [facility] MCHC 35.8(H) 30.7 - 35.5 g/dL LAB HEMATOLOGY METHOD 10/08/2024 5:04 AM EDT [facility] RDW 13.3 11.5 - 14.5 % LAB HEMATOLOGY METHOD 10/08/2024 5:04 AM EDT [facility] MPV 8.9 8.8 - 12.5 fL LAB HEMATOLOGY METHOD 10/08/2024 5:04 AM EDT [facility] nRBC 0.0 <=0.0 per 100 WBCs LAB HEMATOLOGY METHOD 10/08/2024 5:04 AM EDT [facility] Blood Venous blood specimen / Unknown Venipuncture / Unknown 10/08/2024 4:59 AM EDT 10/08/2024 5:01 AM EDT us Wilda Carson MD LAB BLOOD ORDERABLES Final Res ult [facility] [address] [place] [address] * (ABNORMAL) Basic Metabolic Panel, Plasma (10/08/2024 4:59 AM EDT) Glucose, Plasma 206(H) 74 - 99 mg/dL 10/08/2024 6:00 AM EDT [facility] BUN, Plasma 39(H) 8 - 23 mg/dL 10/08/2024 6:00 AM EDT [facility] Creatinine, Plasma 1.26(H) 0.70 - 1.20 mg/dL 10/08/2024 6:00 AM EDT [facility] BUN/Creatinine Ratio 31 10/08/2024 6:00 AM EDT [facility] Sodium, Plasma 125(L) 136 - 145 mmol/L 10/08/2024 6:00 AM EDT [facility] Potassium, Plasma 3.2(L) 3.6 - 4.9 mmol/L 10/08/2024 6:00 AM EDT [facility] Comment:Hemolyzed, result ma y be falsely increased. Chloride, Plasma 98 97 - 107 mmol/L 10/08/2024 6:00 AM EDT [facility] CO2, Plasma 14(L) 22 - 29 mmol/L 10/08/2024 6:00 AM EDT [facility] Anion Gap 13 6 - 16 mmol/L 10/08/2024 6:00 AM EDT [facility] Total Calcium, Plasma 7.6(L) 8.9 - 10.2 mg/dL 10/08/2024 6:00 AM EDT [facility] eGFRcr 65.3 mL/min/1.7 3m*2 10/08/2024 6:00 AM EDT [facility] Comment:Reported eGFRcr in m L/min/1.73m2 is based the CKD-EPI 2020 equation that does not use a race coefficient. Blood Venous blood specimen / Unknown Venipuncture / Unknown 10/08/2024 4:59 AM EDT 10/08/2024 5:16 AM EDT us Wilda Carson MD LAB BLOOD ORDERABLES Final Res ult [facility][1] [address] [place] [address] * CT Abdomen Pelvis w IV Contrast [...] ECG Atrial Rate 85 BPM MUSE ECG OR Interval 168 ms MUSE ECG QRSD Interval 162 ms MUSE ECG QT Interval 442 ms MUSE ECG QTC Interval 525 ms MUSE ECG P [place] 16 degrees MUSE ECG R [place] -32 degrees MUSE ECG T Wave [place] 47 degrees MUSE ECG Diagnosis Normal sinus rhythm MUSE ECG Diagnosis Left axis deviation in the presence of LAFB MUSE ECG Diagnosis Right bundle branch block Bifascicular block MUSE ECG Diagnosis Minimal voltage criteria for LVH, may be normal variant ( R in aVL ) MUSE ECG Diagnosis Abnormal ECG MUSE ECG Diagnosis MUSE ECG Diagnosis Confirmed by Adarsh Pichardo ([id number]) on 10/08/2024 10:50:58 AM MUSE ECG 10/08/2024 12:5 5 AM EDT 10/08/2024 10:50 AM EDT us Mickie Jefferson MD ECG ORDERABLES Final Result Performing Organization Address City/[facility]/ZIP Co de Phone Number MUSE ECG * ED HIV 1/2 Antibody/Antigen Screen w/Reflex to HIV 1/2 Differentiation (10/08/2024 12:55 AM EDT) Pathologist [facility] HIV 1 & 2 Antibody/Antigen Screen Non Reactive Non Reactive 10/08/2024 2:00 AM EDT [facility] Comment:Screening for HIV 1 & 2 antibodies, and P24 antigen is NONREACTIVE. No confirmatory testing is required. Blood Venous blood specimen / Unknown Venipuncture / Unknown 10/08/2024 12:55 AM EDT 10/08/2024 1:11 AM EDT us Mickei Jefferson MD LAB BLOOD ORDERABLES Final Re sult Performing Organization Address City/[facility]/ZIP Co de Phone Number [facility] [address] [place] [address] * Hepatitis C Antibody - ED (10/08/2024 12:55 AM EDT) Hepatitis C Antibody Negative Negative 10/08/2024 2:16 AM EDT [facility] Blood Venous blood specimen / Unknown Venipuncture / Unknown 10/08/2024 12:55 AM EDT 10/08/2024 1:11 AM EDT us Mickie Jefferson MD LAB BLOOD ORDERABLES Final Re sult [facility] [address] [place] [address] * Type and screen (10/08/2024 12:55 AM [...] ORDERABLE S Final Result Performing Organization Address [facility] de Phone Number BLOOD BANK [address] [place] [address], [place] * (ABNORMAL) PT-INR (10/08/2024 12:55 AM EDT) Prothrombin Time 14.7(H) 12.0 - 14.3 sec 10/08/2024 1:27 AM EDT [facility] INR 1.2(H) 0.9 - 1.1 10/08/2024 1:27 AM EDT [facility][1] Blood Venous blood specimen / Unknown Venipuncture / Unknown 10/08/2024 12:55 AM EDT 10/08/2024 1:05 AM EDT Narrative [facility] - 10/08/2024 1:27 AM EDT OPTIMAL INR RANGES FOR PATIENT ON [facility] Prevention of venous thromboembolism INR 2.0 to 3.0 In patients with heart disease: Atrial fibrillation INR 2.0 to 3.0 Valvular heart disease INR 2.0 to 3.0 Tissue heart valves INR 2.0 to 3.0 Mechanical prosthetic valves INR 2.5 to 3.5 Prevention of recurrent DC INR 2.5 to 3.5 us Mickie Jefferson MD LAB BLOOD ORDERABLES Final Re sult Performing Organization Address [facility]/ZIP Co de Phone Number [facility] [address] [place] [address] * (ABNORMAL) CBC w/diff (10/08/2024 12:55 AM EDT) WBC Count 11.32(H) 3.70 - 10.30 10*3/uL LAB HEMATOLOGY METHOD 10/08/2024 1:09 AM EDT [facility] RBC Count 4.20(L) 4.60 - 6.10 10*6/uL LAB HEMATOLOGY METHOD 10/08/2024 1:09 AM EDT [facility] HGB 13.9 13.7 - 17.5 g/dL LAB HEMATOLOGY METHOD 10/08/2024 1:09 AM EDT [facility] HCT 38.0(L) 40.0 - 51.0 % LAB HEMATOLOGY METHOD 10/08/2024 1:09 AM EDT [facility] Platelet Count 293 155 - 369 10*3/uL LAB HEMATOLOGY METHOD 10/08/2024 1:09 AM EDT [facility] MCV 91 79 - 98 fL LAB HEMATOLOGY METHOD 10/08/2024 1:09 AM EDT [facility] MCH 33.1(H) 26.0 - 32.0 pg LAB HEMATOLOGY METHOD 10/08/2024 1:09 AM EDT [facility] MCHC 36.6(H) 30.7 - 35.5 g/dL LAB HEMATOLOGY METHOD 10/08/2024 1:09 AM EDT [facility] RDW 13.5 11.5 - 14.5 % LAB HEMATOLOGY METHOD 10/08/2024 1:09 AM EDT [facility] MPV 10.0 8.8 - 12.5 fL LAB HEMATOLOGY METHOD 10/08/2024 1:09 AM EDT [facility] nRBC 0.0 <=0.0 per 100 WBCs LAB HEMATOLOGY METHOD 10/08/2024 1:09 AM EDT [facility] Differential Type Automated LAB HEMATOLOGY METHOD 10/08/2024 1:09 AM EDT [facility] Neutrophils % 70 % LAB HEMATOLOGY METHOD 10/08/2024 1:09 AM EDT [facility] Lymphocytes % 10 % LAB HEMATOLOGY METHOD 10/08/2024 1:09 AM EDT [facility] Monocytes % 18 % LAB HEMATOLOGY METHOD 10/08/2024 1:09 AM EDT [facility] Eosinophils % 0 % LAB HEMATOLOGY METHOD 10/08/2024 1:09 AM EDT [facility] Basophils % 1 % LAB HEMATOLOGY METHOD 10/08/2024 1:09 AM EDT [facility] Immature Granulocytes % 1 % LAB HEMATOLOGY METHOD 10/08/2024 1:09 AM EDT [facility] Neutrophils Absolute 7.97(H) 1.60 - 6.10 10*3/uL LAB HEMATOLOGY METHOD 10/08/2024 1:09 AM EDT [facility] Lymphocytes Absolute 1.17(L) 1.20 - 3.90 10*3/uL LAB HEMATOLOGY METHOD 10/08/2024 1:09 AM EDT [facility] Monocytes Absolute 2.01(H) 0.30 - 0.90 10*3/uL LAB HEMATOLOGY METHOD 10/08/2024 1:09 AM EDT [facility] Eosinophils Absolute 0.02 0.00 - 0.50 10*3/uL LAB HEMATOLOGY METHOD 10/08/2024 1:09 AM EDT [facility] Basophils Absolute 0.07 0.00 - 0.10 10*3/uL LAB HEMATOLOGY METHOD 10/08/2024 1:09 AM EDT [facility] Immature Granulocytes Absolute 0.08(H) 0.00 - 0.06 10*3/uL LAB HEMATOLOGY METHOD 10/08/2024 1:09 AM EDT [facility] Blood Venous blood specimen / Unknown Venipuncture / Unknown 10/08/2024 12:55 AM EDT 10/08/2024 1:05 AM EDT Narrative [facility] - 10/08/2024 1:09 AM EDT Therapeutic decision making should be based on absolute values, rather than percentages. us Mickie Jefferson MD LAB BLOOD ORDERABLES Final Re sult [facility] [address] [place] [address] * Lactic acid, venous (10/08/2024 12:55 AM EDT) Lactate, Venous, Whole Blood 1.1 0.5 - 2.2 mmol/L LAB HEMATOLOGY METHOD 10/08/2024 1:10 AM EDT [facility] Blood Venous blood specimen / Unknown Venipuncture / Unknown 10/08/2024 12:55 AM EDT 10/08/2024 1:07 AM EDT us Mickie Jefferson MD LAB BLOOD ORDERABLES Final Re sult Performing Organization Address [facility]/ZIP Co de Phone Number [facility] [address] [place] [address] * (ABNORMAL) Phosphorus (10/08/2024 12:55 AM EDT) Phosphorus, Plasma 4.6(H) 2.5 - 4.5 mg/dL 10/08/2024 1:37 AM EDT [facility] Blood Venous blood specimen / Unknown Venipuncture / Unknown 10/08/2024 12:55 AM EDT 10/08/2024 1:05 AM EDT us Mickie Jefferson MD LAB BLOOD ORDERABLES Final Re sult Performing Organization Address [facility] Co de Phone Number [address] [address] * Magnesium (10/08/2024 12:55 AM EDT) Magnesium, Plasma 1.9 1.9 - 2.4 mg/dL 10/08/2024 1:37 AM EDT [facility] Blood Venous blood specimen / Unknown Venipuncture / Unknown 10/08/2024 12:55 AM EDT 10/08/2024 1:05 AM EDT us Mickie Jefferson MD LAB BLOOD ORDERABLES Final Re sult Performing Organization Address [facility] Co de Phone Number [facility] [address] [place] [phone] * (ABNORMAL) CMP (10/08/2024 12:55 AM EDT) Glucose, Plasma 235(H) 74 - 99 mg/dL 10/08/2024 1:37 AM EDT [facility] BUN, Plasma 44(H) 8 - 23 mg/dL 10/08/2024 1:37 AM EDT [facility] Creatinine, Plasma 1.52(H) 0.70 - 1.20 mg/dL 10/08/2024 1:37 AM EDT [facility] BUN/Creatinine Ratio 29 10/08/2024 1:37 AM EDT [facility] Sodium, Plasma 125(L) 136 - 145 mmol/L 10/08/2024 1:37 AM EDT [facility] Potassium, Plasma 3.8 3.6 - 4.9 mmol/L 10/08/2024 1:37 AM EDT [facility] Chloride, Plasma 93(L) 97 - 107 mmol/L 10/08/2024 1:37 AM EDT [facility] CO2, Plasma 14(L) 22 - 29 mmol/L 10/08/2024 1:37 AM EDT [facility] Anion Gap 18(H) 6 - 16 mmol/L 10/08/2024 1:37 AM EDT [facility] Total Calcium, Plasma 9.2 8.9 - 10.2 mg/dL 10/08/2024 1:37 AM EDT [facility] Total Protein 7.3 6.3 - 7.9 g/dL 10/08/2024 1:37 AM EDT [facility] Albumin, Plasma 3.9 3.5 - 5.2 g/dL 10/08/2024 1:37 AM EDT [facility] AST, Plasma 24 10 - 50 U/L 10/08/2024 1:37 AM EDT [facility] Comment:Hemolyzed, result ma y be falsely increased. ALT, Plasma 12 10 - 50 U/L 10/08/2024 1:37 AM EDT [facility] Alkaline Phosphatase, Plasma 89 40 - 115 U/L 10/08/2024 1:37 AM EDT [facility] Total Bilirubin, Plasma 0.8 0.2 - 1.1 mg/dL 10/08/2024 1:37 AM EDT [facility] eGFRcr 52.1 mL/min/1.7 3m*2 10/08/2024 1:37 AM EDT [facility] Comment:Reported eGFRcr in m L/min/1.73m2 is based the CKD-EPI 2020 equation that does not use a race coefficient. Blood Venous blood specimen / Unknown Venipuncture / Unknown 10/08/2024 12:55 AM EDT 10/08/2024 1:05 AM EDT us Mickie Jefferson MD LAB BLOOD ORDERABLES Final Re sult [facility] [address] [place] [address] documented in this encounter Visit Diagnoses Diagnosis [...] Michell Campa, JAN)1029 (Stopped - Provider: Michell Campa, JAN)1030 (New Bag - Provider: Michell Campa, JAN)1130 (Due)1230 (Stopped - Provider: Michell Campa, JAN)1514 (Stopped - Provider: Michell Campa, JAN) sodium chloride 0.9 % flush 10 mL(Linked [...] as of this encounter Care Teams Rug Dry Room Attendant Relationship Specialty Start Date End Date Tayo Jones MD [address] [place] [address] PCP - General 07/14/24 documented as of this encounter
--- OUTSIDE RECORDS SUMMARY | 2024-11-01 20:00 | XMS_ITS | Continuity of Care Document ---
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 Name Role Phone Shade Escoto NP Unavailable Unavailable Allergies, Adverse Reactions, Alerts Substance Reaction Status Criticality No Known Allergies Active No Inform ation Medications Medication Instructions Dosage Effective Dates (start - stop) Status Comments prochlorperazine maleate 10 mg tablet - Active Anti-Diarrheal (loperamide) 2 mg tablet - Active acetaminophen 500 mg tablet - Active loperamide 2 mg tablet - Act eladio loratadine 10 mg tablet - Ac tive BD AutoShield Duo Pen Needle 30 gauge x /16 - Active ferrous sulfate 325 mg (65 mg iron) tablet,delayed release - Active lisinopril 10 mg-hydrochlorothiazide 12.5 mg tablet - Active insulin lispro (U-100) 100 unit/mL subcutaneous pen - Active carvedilol 12.5 mg tablet - Active spironolactone 25 mg tablet - Active Lantus Solostar U-100 Insulin 100 unit/mL (3 mL) subcutaneous pen - Active oseltamivir 75 mg capsule - Active amlodipine 10 mg tablet - Ac tive insulin glargine-yfgn (U-100) 100 unit/mL subcutaneous solution - Active capecitabine 500 mg tablet - Active ondansetron HCl 4 mg tablet - Active sodium chloride 0.9 % intravenous solution - Active ciprofloxacin 500 mg tablet - Active vancomycin 500 mg intravenous solution MIX THE CONTENTS OF 1 VIAL WITH DILUENT. APPLY TO AFFECTED AREAS. PERFORM ONCE DAILY - Active hydrochlorothiazide 25 mg tablet - Active mupirocin 2 % topical ointment - Active valsartan 320 mg tablet - Ac tive FeroSul 325 mg (65 mg iron) tablet - Active doxycycline hyclate 100 mg tablet - Active tramadol 50 mg tablet - Acti ve insulin glargine (U-100) 100 unit/mL subcutaneous solution - Active Triple Antibiotic 3.5 mg-400 unit-5,000 unit/gram topical ointment - Active metoprolol tartrate 25 mg tablet take 1 tablet by oral route 2 times every day 25 MG - Active aspirin 81 mg tablet,delayed release take 1 tablet by oral route every day 81 MG - Active Procedures Procedure Date Trim normal nail, any number Debride mycotic nails 5 or less - 025 COMPRE OPH EXAM EST PT 1/> ECHO EXAM OF EYE THICKNESS Trim Dystrophic nail(s) DEBRIDE NAIL 1- Low extemity neur exam docum Trim nail(s) DEBRIDE NAIL 1-5 SBSQ NF CARE LOW MDM 20 SBSQ NF CARE SF MDM 10 DEBRIDE NAIL 1-5 Trim nail(s) COMPRE OPH EXAM EST PT 1/> DEBRIDE NAIL 1-5 Trim nail(s) Low extemity neur exam docum DEBRIDE NAIL 1-5 TRIM NAIL(S) Low extemity neur exam docum DEBRIDE NAIL 1-5 TRIM NAIL(S) Diabetic Foot Exam Performed EYE EXAM & TREATMENT DEBRIDE NAIL 6 OR MORE Diabetic Foot Exam Performed Compsve Oral Eval- New/Est Pat 23 DEBRIDE NAIL 6 OR MORE Diabetic Foot Exam Performed DEBRIDE NAIL 1-5 TRIM NAIL(S) Complete Series Of Radiographic Images J House/Extended Care Facility Call DEBRIDE NAIL 6 OR MORE DEBRIDE NAIL 6 OR MORE Compsve Oral Eval- New/Est Pat Prophylaxis - Adult EYE EXAM NEW PATIENT Advance Directives Directive Yes / No Effective Date File Name No Information Encounters Encounter Description Practice Location Reason(s) For Visit Diagnoses Date Provider Providers Copied on Encounter [address] [place] [address], [address] [place] [address], [id number], tel:[phone] [facility] Nail dystrophyType 2 diabetes mellitus with diabetic peripheral angiopathy without gangreneLong term (current) use of insulinOnychog ryphosis 5 Jevon Laguerre. , [place]. [address] [place] [address], [address] [place] [address], [id number], [place] tel:[phone] [facility] Diabetic eye exam (chief complaint) Ocular hypertension, bilateralType 2 diabetes mellitus without complicationsC ombined forms of age-related cataract, bilateral 5 Joy Vides. , [place]. Referring Provider: Tayo Jones. [address] [place] [address], [address] [facility], [place], [place], [id number], tel:[phone] [facility] No Information 5 [place], [place]. [address] [place] [address], [address] [place] [address], [place], [place], [id number], [place] tel:[phone] [facility] Type 2 diabetes mellitus with diabetic peripheral angiopathy without gangreneLong term (current) use of oral hypoglycemic drugsNail dystrophyOnych ogryphosis 5 [place], [place]. [facility] NF CARE LOW MDM [address] [place] [address], [address] [place] [address], [place], [place], [id number], [place] tel:[phone] [facility] Acquired absence of other left toe(s)Type 2 diabetes w diabetic peripheral angiopath w/o gangreneNail dystrophyOnych ogryphosis 4 [place], [place]. [facility] CARE SF MDM [address] [place] [address], [address] [place] [address], [place], [place], [id number], [place] tel:[phone] [facility] Acquired absence of other left toe(s)Tinea unguiumType 2 diabetes w diabetic peripheral angiopath w/o gangreneNail dystrophy 4 Jacob Sol. [address] [facility] [address], [place], [address], [place]. [address] [place] [address], [address] [place] [address], [place], [place], [id number], [place] tel:[phone] [facility] Acquired absence of other left toe(s)Nail dystrophyTinea unguiumType 2 diabetes w diabetic peripheral angiopath w/o gangrene 4 Jacob Sol. [address] [facility] [address], [place], [address], [place]. Referring Provider: Tayo Jones. [address] [place] [address], [address] [place] [address], [place], [place], [id number], [place] tel:[phone] [facility] Cataract (chief complaint) Combined forms of age-related cataract, bilateralType 2 diabetes mellitus without complicationsO cular hypertension, bilateral 4 [place]. Referring Provider: Tayo Jones. [address] [place] [address], [address] [place], [place] [address], [place], [place], [id number], [place] tel:[phone] [place] [address] No Information 4 [facility] , [place]. [facility], [address] [place], [place] [address], [place], [place], [id number], [place] tel:[phone] [facility] Acquired absence of other left toe(s)Tinea unguiumNail dystrophyType 2 diabetes w diabetic peripheral angiopath w/o gangrene 4 Jacob Sol. [address] [facility] [address], [place], [address], [place]. Referring Provider: Tayo Jones. [address] [place] [address], [address] [place], [place] [address], [place], [place], [id number], [place] tel:[phone] [place] [address] Acquired absence of other left toe(s)Tinea unguiumNail dystrophyType 2 diabetes w diabetic peripheral angiopath w/o gangrene 3 Jacob Sims [address] [facility] [address], [place], [address], [place]. [address] [place] [address], [address] [place] [address], [place], [place], [id number], [place] tel:[phone] [place] [address] No Information 3 Andres Horne. [address] [facility] [address], [place], [place], [id number], [place]. tel:[phone] Referring Provider: Tayo Jones. [address] [place] [address], [address] [place], [place] [address], [place], [place], [id number], [place] tel:[phone] [place] [address] Nail dystrophyTinea unguiumType 2 diabetes w diabetic peripheral angiopath w/o gangreneAcquir ed absence of other left toe(s) 3 Jacob Sims [address] [facility] [address], [place], [address], [place]. Referring Provider: Tayo Jones. [address] [place] [address], [address] [place], [place] [address], [place], [place], [id number], [place] tel:[phone] [facility] Encounter for dental examination and cleaning without abnormal findings 3 [facility] , [place]. tel:[phone] Referring Provider: Tayo Jones. [address] [place] [address], [address] [place], [place] [address], [place], [place], [id number], [place] tel:[phone] [facility] Diabetic eye exam (chief complaint) Type 2 diabetes mellitus without complicationsC ombined forms of age-related cataract, bilateral 3 Peewee Villasenor. [address] [facility] [address], [place], [address], [place]. Referring Provider: Tayo Jones. [address] [place] [address], [address] [place], [place] [address], [place], [place], [id number], [place] tel:[phone] [facility] Acquired absence of other left toe(s)Tinea unguiumType 2 diabetes w diabetic peripheral angiopath w/o gangrene [id number] [place] [address], [address], [place], [address], [place]. Referring Provider: Tayo Jones. [address] [place] [address], [address] [place], [place] [address], [place], [place], [id number], [place] tel:[phone] [facility] Encounter for dental examination and cleaning without abnormal findings 3 [facility] , [place]. tel:[phone] Referring Provider: Tayo Jones. [facility], [address] [place], [place] [address], [place], [place], [id number], [place] tel:[phone] [facility] Acquired absence of other left toe(s)Tinea unguiumType 2 diabetes w diabetic peripheral angiopath w/o gangrene 2 Jacob Sims [address] [facility] [address], [place], [address], [place]. Referring Provider: Tayo Jones. [facility], [address], [place], [place], [id number], [place] tel:[phone] [facility] Acquired absence of other left toe(s)Tinea unguiumType 2 diabetes w diabetic peripheral angiopath w/o gangreneNail dystrophy [address], [address], [place], [address], [place]. Referring Provider: Tayo Jones. [facility], [address] [place] [address] [address], [place], [place], [id number], [place] tel:[phone] [facility] Encounter for dental examination and cleaning without abnormal findings 2 [place], [place]. Referring Provider: Tayo Jones. [facility], [address] [place], [place] [address], [place], [place], [id number], [place] tel:[phone] [facility] Type 2 diabetes w diabetic peripheral angiopath w/o gangreneTinea unguiumAcquire d absence of other left toe(s) 2 [place], [place]. Referring Provider: Tayo Jones. [facility], [address], [place], [place], [id number], [place] tel:[phone] [facility] Tinea unguiumType 2 diabetes w diabetic peripheral angiopath w/o gangreneAcquir ed absence of other left toe(s) 2 Jacob Sol. [address] [facility] [address], [place], [address], [place]. Referring Provider: Tayo Jones. [facility], [address] [place], [place] [address], [place], [place], [id number], [place] tel:[phone] [facility] Encounter for dental exam and cleaning w/o abnormal findings 2 Mike Garrett. [address] [facility] [address], [place], [place], [id number], [place]. tel:[phone] Referring Provider: Tayo Jones. [address] [place] [address], [address] [facility], [place], [place], [id number], tel:[phone] [facility] Diabetic eye exam (chief complaint) Combined forms of age-related cataract, bilateralType 2 diabetes mellitus without complications 2 Peewee Villasenor. [address] [facility] [address], [place], [address], [place]. Referring Provider: Tayo Jones. [address] [place] [address], [address], [place], [place], [id number], tel:[phone] [facility] No Information 2 Peewee Villasenor. [address] [facility] [address], [place], [address], [place]. Family History Family Member Type Diagnosis Age At Onset No Information Payers Payer name Insurance type Covered constitution party ID Authoriza tijudith(s) Medicaid [facility] [id number] Social History Type Description Quantity Date Captured Comments Alcohol Use Details Unknown Caffeine Use Details Unknown Tobacco Use Status No Information Smoking Status No Information Sex Male Chief Complaint And Reason For Visit No Information Reason For Referral Reason For Referral No Information Plan Of Treatment Date Type Action Status Appointment Nayan Womack Medicaid Only. BOOKED Appointment Nayan Womack BOOKED Patient Education Dental X-Ray: About Thi s Test completed Patient Education Learning About Dental Care and Your Health Problem completed Patient Education Learning About Dental Care and Your Health Problem completed Patient Education Dental X-Ray: About Thi s Test completed Patient Education Learning About Dental Care and Your Health Problem completed History Of Present Illness Encounter Date Complaint History Of Prese nt Illness Diabetic eye exam The 59 year ol d patient presents for evaluation of Blurry vision in the right eye and left eye. Glasses are working OK. Denies itching, headaches. On insulin. Has been told he has cataracts Cataract The 58 year old patient presents for evaluation of Cataract in the right eye and left eye. It occurs always. The onset was gradual. It affects VA not affected. Diabetic eye exam The 57 year ol d male presents for evaluation of Diabetic eye exam in the right eye and left eye. It occurs all the time. The onset was gradual. It affects VA not affected. Diabetic eye exam The 56 year ol d male presents for evaluation of Diabetic eye exam in the right eye and left eye. It occurs doing close work. The onset was gradual. It affects near vision. The symptom is frequent. The condition is mild. Functional Status Date Functional Assessmen t No Information Instructions Date Instruction Additional Infor mation All documented dystr ophic nails were reduced in length as needed to prevent pain and other symptoms. Patient tolerated procedure well. 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 Alcohol applied to the digits afterwards. PT tolerated procedure well. Related to Onychogryphosis Follow up - Return i n 12-15 months for dilated fundus exam. Impression/Plan - No active diabetic retinopathy present in either eye. We will monitor at regular intervals. Related to Type 2 diabetes mellitus without complications Impression/Plan - 2+ NS and cortical but great vision in current specs. Recheck yearly Related to Combined forms of age-related cataract, bilateral Impression/Plan - IO P / with thick pachs 627/619. Educated pt on condition. Recheck yearly Related to Ocular hypertension, bilateral All of the documente d thickened nails (which includes those nails 2 mm or more in thickness, and possible mycotic component to the nails) were debrided in both length and thickness using both a nail nipper and an electric rotary almond grinder in an atraumatic fashion; this was performed in an attempt to prevent pain and reduce risk of infection. Alcohol applied to the digits afterwards. Related to Onychogryphosis All documented dystr ophic nails were reduced in length as needed to prevent pain and other symptoms. Related to Nail dystrophy No change to treatme nt plan, Will continue to monitor. Related to detention (current) use of oral hypoglycemic drugs A diabetic exam perf ormed. discussed importance of good foot care and shoes. Educational material was left with the facility. Related to Type 2 diabetes mellitus with diabetic peripheral angiopathy without gangrene This is a chronic st able problem, Will reassess and follow up in 2-3 months Related to Type 2 diabetes w diabetic peripheral angiopath w/o gangrene All documented dystr ophic nails were reduced in length as needed to prevent pain and other symptoms. Related to Nail dystrophy All documented thick ened nails were debrided using a rotary tool and nail nipper. Related to Onychogryphosis No need for toenail debridement at this time. A full exam was performed. Follow up in 2 months. Related to Tinea unguium Toenails 1 b/l were debrided in length and thickness without incident. Follow up in 2-3 months. Related to Tinea unguium All dystrophic nails were debrided in length and thickness as needed to prevent pain and other symptoms. Related to Nail dystrophy Return in 4-6 months for IOP annabel ck. Related to Ocular hypertension, bilateral Return in 12-15 junior hs for dilated fundus exam. Related to Type 2 diabetes mellitus without complications Impression/Plan - IO P read high today; recheck at next visit to monitor for glaucoma development. Related to Ocular hypertension, bilateral Follow up - Return i n 4-6 months for IOP check. Related to Ocular hypertension, bilateral Impression/Plan - No active diabetic retinopathy present in either eye. We will monitor at regular intervals. Related to Type 2 diabetes mellitus without complications Follow up - Return i n 12-15 months for dilated fundus exam. Related to Type 2 diabetes mellitus without complications Impression/Plan - Ca taracts are moderate and are affecting visual acuity; however, no treatment recommended at this time. We will monitor for progression. Related to Combined forms of age-related cataract, bilateral All dystrophic nails were debrided in length and thickness as needed to prevent pain and other symptoms. Related to Nail dystrophy Toenails 1 b/l were debrided in length and thickness without incident. Follow up in 2-3 months. Related to Tinea unguium All dystrophic nails were debrided in length and thickness as needed to prevent pain and other symptoms. Related to Nail dystrophy Toenails 1 b/l were debrided in length and thickness without incident. Follow up in 2-3 months. Related to Tinea unguium Toenails 1 b/l were debrided in length and thickness without incident. Follow up in 2-3 months. Related to Tinea unguium All dystrophic nails were debrided in length and thickness as needed to prevent pain and other symptoms. Related to Nail dystrophy We will schedule an appoinment in 12-15 months for a dilated fundus exam. Related to Combined forms of age-related cataract, bilateral Impression/Plan - Ca taracts are moderate and are affecting visual acuity; however, no treatment recommended at this time. We will monitor for progression. Related to Combined forms of age-related cataract, bilateral Follow up - We will schedule an appoinment in 12-15 months for a dilated fundus exam. Related to Combined forms of age-related cataract, bilateral Impression/Plan - No active diabetic retinopathy present in either eye. We will monitor at regular intervals. Related to Type 2 diabetes mellitus without complications Toenails x 9 were de brided in length and thickness without incident. Follow up in 2-3 months. Related to Tinea unguium Toenails x 9 were de brided in length and thickness without incident. Follow up in 2-3 months. Related to Tinea unguium All dystrophic nails were debrided in length and thickness as needed to prevent pain and other symptoms. Related to Nail dystrophy The right great toen ail was debrided in length and thickness without incident. Follow up in 2-3 months. Related to Tinea unguium Toenails x 9 were de brided in length and thickness without incident. Follow up in 2-3 months. Related to Tinea unguium Toenails x 9 were de brided in length and thickness without incident. Follow up in 2-3 months. Related to Tinea unguium We will schedule an appoinment in 12-15 months for a dilated fundus exam. Related to Type 2 diabetes mellitus without complications Impression/Plan - No active diabetic retinopathy present in either eye. We will monitor at regular intervals. Related to Type 2 diabetes mellitus without complications Follow up - We will schedule an appoinment in 12-15 months for a dilated fundus exam. Related to Type 2 diabetes mellitus without complications Impression/Plan - Ca taracts are mild; we will monitor for progression. 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
--- OUTSIDE RECORDS SUMMARY | 2024-11-10 09:45 | XMS_ITS | Encounter Summary ---
Author Organization [facility] Address [address] [place] [address] Care Team Providers Care Dairy Cattle Farm Manager Name Role Phone Tayo Jones MD Primary Care Provider [phone] Encounter Details Date Type Department Care Team (Late Contact Info) Description 05/06/2024 Orders Only External Location [address] [place] [address] Provider, External Social History Tobacco Use Types [...] Description 11/19/2024 8:40 AM EDT Appointment [facility] [address] [place] [address] 11/19/2024 11:15 AM EDT [facility] [address] [place] [address] Farhad Castillo MD [address] [address] documented as of this encounter Procedures Procedure [...] on filedocumented in this encounter Care Teams Dairy Cattle Farm Manager Relationship Specialty Start Date End Date Tayo Jones MD [address] [place] [phone] PCP - General 07/14/24 documented as of this encounter
--- OUTSIDE RECORDS SUMMARY | 2024-11-10 09:45 | XMS_ITS | Encounter Summary ---
Author Organization [facility] Address [address] [place] [address] Care Team Providers Care Loss Prevention Investigator Name Role Phone Tayo Jones MD Primary Care Provider [phone] Encounter Details Date Type Department Care Team (Late Contact Info) Description 05/06/2024 Orders Only External Location [address] [place] [address] Provider, External Social History Tobacco Use Types [...] 11/19/2024 8:40 AM EDT Appointment [facility] [address] [place] [address] 11/19/2024 11:15 AM EDT Office Visit [facility] Multidisciplinary Oncology Clinic [address] [place] [address] Farhad Castillo MD [address] [phone] documented as of this encounter Procedures Procedure [...] on filedocumented in this encounter Care Teams Loss Prevention Investigator Relationship Specialty Start Date End Date Tayo Jones MD [address] [place] [phone] PCP - General 07/14/24 documented as of this encounter
--- OUTSIDE RECORDS SUMMARY | 2024-11-10 09:45 | XMS_ITS | Encounter Summary ---
Author Organization [facility] Address [address] [place] [address] Care Team Providers Care Tow Operator Name Role Phone Tayo Jones MD Primary Care Provider [phone] Encounter Details Date Type Department Care Team (Late Contact Info) Description 01/24/2023 Orders Only External Location [address] [place] [address] Sue Pope MD [address] [place] [address] [id number] Social History Tobacco Use Types Packs/Day Years [...] 11/19/2024 8:40 AM EDT Appointment [facility] [address] [place] [address] 11/19/2024 11:15 AM EDT Office Visit [facility] Multidisciplinary Oncology Clinic [address] [place] [address] Farhad Castillo MD [address] [address] documented as of this encounter Procedures Procedure [...] on filedocumented in this encounter Care Teams Tow Operator Relationship Specialty Start Date End Date Tayo Jones MD [address] [place] [phone] PCP - General 07/14/24 documented as of this encounter
--- OUTSIDE RECORDS SUMMARY | 2024-11-10 09:45 | XMS_ITS | Encounter Summary ---
Author Organization [facility] Address [address] [place] [address] Care Team Providers Care Section Laborer Name Role Phone Tayo Jones MD Primary Care Provider [phone] Encounter Details Date Type Department Care Team (Late Contact Info) Description 01/15/2023 Orders Only External Location [address] [place] [address] Sue Pope MD [address] [place] [address] [phone] Social History Tobacco Use Types Packs/Day Years [...] Info) Description 11/19/2024 8:40 AM EDT Appointment [facility] [address] [place] [address] 11/19/2024 11:15 AM EDT Office Visit [facility] Multidisciplinary Oncology Clinic [address] [place] [address] Farhad Castillo MD [address] [address] documented as of this encounter Procedures Procedure [...] on filedocumented in this encounter Care Teams Section Laborer Relationship Specialty Start Date End Date Tayo Jones MD [address] [place] [phone] PCP - General 07/14/24 documented as of this encounter
--- OUTSIDE RECORDS SUMMARY | 2024-11-10 09:45 | XMS_ITS | Encounter Summary ---
Author Organization [facility] Address [address] [place] [address] Care Team Providers Care Training Mgr Name Role Phone Tayo Jones MD Primary Care Provider [phone] Encounter Details Date Type Department Care Team (Late Contact Info) Description 05/31/2023 Orders Only External Location [address] [place] [address] Provider, External Social History Tobacco Use Types [...] Info) Description 11/19/2024 8:40 AM EDT Appointment [facility] [address] [place] [address] 11/19/2024 11:15 AM EDT Office Visit [facility] Multidisciplinary Oncology Clinic [address] [place] [address] Farhad Castillo MD [address] [phone] documented as of this encounter Procedures Procedure [...] on filedocumented in this encounter Care Teams Training Mgr Relationship Specialty Start Date End Date Tayo Jones MD [address] [phone] PCP - General 07/14/24 documented as of this encounter
--- OUTSIDE RECORDS SUMMARY | 2024-11-10 09:45 | XMS_ITS | Encounter Summary ---
Author Organization [facility] Address [address] [place] [address] Care Team Providers Care Wine And Spirits Clerk Name Role Phone Tayo Jones MD Primary Care Provider [phone] Encounter Details Date Type Department Care Team (Late Contact Info) Description 01/15/2023 Orders Only External Location [address] [place] [address] Provider, External Social History Tobacco Use Types [...] Info) Description 11/19/2024 8:40 AM EDT Appointment [facility] [address] [place] [address] 11/19/2024 11:15 AM EDT Office [facility] Multidisciplinary Oncology Clinic [address] [place] [address] Farhad Castillo MD [address] [address] documented as of this encounter Procedures Procedure [...] on filedocumented in this encounter Care Teams Wine And Spirits Clerk Relationship Specialty Start Date End Date Tayo Jones MD [address] [phone] PCP - General 07/14/24 documented as of this encounter
--- OUTSIDE RECORDS SUMMARY | 2024-11-10 09:45 | XMS_ITS | Encounter Summary ---
Author Organization [facility] Address [address] [place] [address] Care Team Providers Care Aerophysics Engineer Name Role Phone Tayo Jones MD Primary Care Provider [phone] Encounter Details Date Type Department Care Team [...] 11/19/2024 8:40 AM EDT Appointment [facility] [address] [place] [address] 11/19/2024 11:15 AM EDT Office Visit [facility] Multidisciplinary Oncology Clinic [address] [place] [phone] Farhad Castillo MD [address] [address] documented as of this encounter Visit Diagnoses Not on filedocumented in this encounter Additional Health Concerns Assessment Noted Time A fall risk assessment has been complete d for the patient 07/23/2024 8:54 AM EDT A Body Mass Index follow-up plan has been documented for the patient 10/09/2024 3:15 PM EDT documented as of this encounter Care Teams Aerophysics Engineer Relationship Specialty Start Date End Date Tayo Jones MD [address] [place] [address] PCP - General 07/14/24 documented as of this encounter
--- OUTSIDE RECORDS SUMMARY | 2024-11-10 09:45 | XMS_ITS | Encounter Summary ---
Author Organization [facility] Address [address] [place] [address] Care Team Providers Care Cant Gang Sawyer Name Role Phone Tayo Jones MD Primary Care Provider [phone] Encounter Details Date Type Department Care Team (Late Contact Info) Description 02/18/2023 Orders Only External Location [address] [place] [address] Provider, External Social History Tobacco Use Types [...] EDT Appointment [facility] [address] [place] [address] 11/19/2024 11:15 AM EDT Office Visit [facility] Multidisciplinary Oncology Clinic [address] [place] [address] Farhad Castillo MD [address] [phone] documented as of this encounter Procedures Procedure [...] on filedocumented in this encounter Care Teams Cant Gang Sawyer Relationship Specialty Start Date End Date Tayo Jones MD [address] [place] [address] PCP - General 07/14/24 documented as of this encounter
--- OUTSIDE RECORDS SUMMARY | 2024-11-10 09:45 | XMS_ITS | Encounter Summary ---
Author Organization Healthcare Address [address] [place] [address] Care Team Providers Care Material Lister Name Role Phone Tayo Jones MD Primary Care Provider [phone] Encounter Details Date Type Department Care Team (Late st Contact Info) Description 10/07/2024 Orders Only External Location [address] [place] [address] Provider, External Social History Tobacco Use Types [...] any time in the past [address] [facility] [place], were you homeless or living in a [...] Info) Description 11/19/2024 8:40 AM EDT Appointment [facility] [address]nd [place] [address] 11/19/2024 11:15 AM EDT Office Visit [facility] Multidisciplinary Oncology Clinic [address] [place] [address] Farhad Castillo MD [address] [place] [address] documented as of this encounter Procedures Procedure [...] documented as of this encounter Care Teams Material Lister Relationship Specialty Start Date End Date Tayo Jones MD [address] [place] [address] PCP - General 07/14/24 documented as of this encounter
--- OUTSIDE RECORDS SUMMARY | 2024-11-10 09:45 | XMS_ITS ---
Author Organization [facility] Address [address] [id number] Care Team Providers Care Health Manager Name Role Phone Tayo Jones MD Primary Care Provider [phone] Active Problems Problem Noted Date Diagnosed Date [...]
--- OUTSIDE RECORDS SUMMARY | 2024-11-10 09:45 | XMS_ITS | Encounter Summary ---
Author Organization [facility] Address [address] [place] [address] Care Team Providers Care Brand Planner Name Role Phone Tayo Jones MD Primary Care Provider [phone] Encounter Details Date Type Department Care Team (Late Contact Info) Description 06/15/2024 Orders Only External Location [address] [place] [address] Provider, External Social History Tobacco Use Types [...] Description 11/19/2024 8:40 AM EDT Appointment [facility] CT [address] [place] [address] 11/19/2024 11:15 AM EDT Office Visit [facility] Multidisciplinary Oncology Clinic [address] [place] [address] Farhad Castillo MD [address] [address] documented as of this encounter Procedures Procedure [...] on filedocumented in this encounter Care Teams Brand Planner Relationship Specialty Start Date End Date Tayo Jones MD [address] [place] [address] PCP - General 07/14/24 documented as of this encounter
--- OUTSIDE RECORDS SUMMARY | 2024-11-10 09:45 | XMS_ITS | Encounter Summary ---
Author Organization [facility] Address [address] [place] [address] Care Team Providers Care Testing Engineer Name Role Phone Jeremy Gil MD Unavailable [phone] Andres Alcantara DPM Unavailable [phone] Grant Fletcher MD Unavailable Niko Cueva MD Unavailable None, None Primary Care Provider UnavailGm iVgil DPM Unavailable [phone] Reina Byrd NP Unavailable Unavailable Encounter Details Date Type Department Care Team (Late st Contact Info) Description 09/08/2020 Clinical Update [facility] Physicians - Infectious Diseases, [facility] [address] [place] [address] [phone] Grant Fletcher MD [address] [place] [address] [id number] Social History Tobacco Use Types Packs/Day Years [...] (SGPT) (09/07/2020) ALT 5 U/L Plasma Result [facility] Grant Fletcher MD CHEMISTRY ORDERABLES Final Re sult * ALKALINE PHOSPHATASE (09/07/2020) Alkaline Phosphatase 98 U/L Plasma Result [facility] Grant Fletcher MD CHEMISTRY ORDERABLES Final Re sult * ALBUMIN (09/07/2020) Albumin 2.6 Plasma Result [facility] Grant Fletcher MD CHEMISTRY ORDERABLES [...] on filedocumented in this encounter Care Teams Testing Engineer Relationship Specialty Start Date End Date None, None [address] [place] [address] PCP - General 10/26/20 Jeremy Gil MD [address] [place] [address] Room [address] [place] [address] Internal Medicine 08/19/20 Andres Alcantara DPM [address] [facility]. [address] [place] [address] Resident Podiatry 08/22/20 Grant Fletcher MD [address] [facility] [address] [place] [address] Infectious Diseases 09/08/20 Niko Cueva MD [address] [facility] [address] [place] [address] Vascular Surgery 09/16/20 Gm Flor DPM [address] [facility]. [address] [place], [place] [id number] Podiatry 11/01/20 Reina Byrd NP [address] [facility] [place] [address] Nurse Practitioner Vascular Surgery 11/30/20 documented as of this encounter
--- OUTSIDE RECORDS SUMMARY | 2024-11-10 09:45 | XMS_ITS | Clinical Summary ---
Author Organization [facility] Address [address] [place] [address] Care Team Providers Care Rn Emergency Room Name Role Phone Tayo Jones MD Primary Care Provider [phone] Allergies No known active allergies Medications carvedilol [...] Hospital Encounter [facility] Emergency Department [address] [place] [phone] Mickie Jefferson MD Hourigan, Jon S, MD Small bowel obstruction (CMS/HCC) (Primary Dx); Abdominal pain, generalized Discharge Disposition: Jail Facility 10/08/2024 Travel 10/07/2024 Orders Only External Location [address] [place] [phone] Provider, External from Last 3 Months Family [...] any time in the past 12 m [facility], were you homeless or living in [...] 11/19/2024 8:40 AM EDT Appointment [facility] CT [address] 2nd [place] [address] 11/19/2024 11:15 AM EDT Office Visit [facility] Multidisciplinary Oncology Clinic [address] [place] [address] Farhad Castillo MD [address] [address] Health Maintenance Due Date Last Done Comments [facility]-Infant/Child/Adol SDOH Screenings 1964 Diabetes: Dental Exam 1974 [facility]-DTaP,Tdap,and Td Vaccines (1 - Tdap) 1983 [facility]-Hepatitis A Vaccines (1 of 2 - Risk 2-dose series) 1983 [facility]-Zoster Vaccines (1 of 2) 1983 [facility]-ZMGML-09 Vaccine ( season) 2023 01/15/2022, 03/28/2021, 07/27/2020, [...] this topic Medical Devices Implanted Type Area Customs Compliance Specialist Device Identifier Shelf Expiration Date Model / Serial / Lot Port Clearvue Power 8fr - S. - [id number] Implanted:Qty : 1 on 07/31/2024 by Farhad Castillo MD at [facility] Other Medication Pump Left: Chest [id number] 07/13/2025 [id number] / . / [id number] Procedures Procedure Name Priority Date/Time Associated Diagnosis [...] Comment 10/09/2024 12:12 PM EDT [facility] Medical Equipment Technician ID Alyx, Julia 025 12:12 PM EDT [facility] Device ID [id number] 10/09/2024 12:12 PM EDT [facility]ARE [facility] Specimen Type POC Capillary 10/09/2024 12:12 PM EDT [facility] Blood Capillary blood specimen / Unknown 10/09/2024 12:08 PM EDT 10/09/2024 12:12 PM EDT Jj Carson MD LAB POINT OF CARE TE ST DOCKED DEVICE UNSOLICITED RESULTS Final Result Performing Organization Address City/State/[facility] Co de Phone Number HEALTHCARE LAB [address] [place] [address] * XR Abdomen 1 View (10/09/2024 9:41 [...] LAB HEMATOLOGY METHOD 10/09/2024 4:52 AM EDT [facility] RBC Count 4.07(L) 4.60 - 6.10 10*6/uL LAB HEMATOLOGY METHOD 10/09/2024 4:52 AM EDT [facility] HGB 13.3(L) 13.7 - 17.5 g/dL LAB HEMATOLOGY METHOD 10/09/2024 4:52 AM EDT [facility] HCT 37.0(L) 40.0 - 51.0 % LAB HEMATOLOGY METHOD 10/09/2024 4:52 AM EDT [facility] Platelet Count 312 155 - 369 10*3/uL LAB HEMATOLOGY METHOD 10/09/2024 4:52 AM EDT [facility] MCV 91 79 - 98 fL LAB HEMATOLOGY METHOD 10/09/2024 4:52 AM EDT [facility] MCH 32.7(H) 26.0 - 32.0 pg LAB HEMATOLOGY METHOD 10/09/2024 4:52 AM EDT [facility] MCHC 35.9(H) 30.7 - 35.5 g/dL LAB HEMATOLOGY METHOD 10/09/2024 4:52 AM EDT [facility] RDW 13.5 11.5 - 14.5 % LAB HEMATOLOGY METHOD 10/09/2024 4:52 AM EDT [facility] MPV 9.1 8.8 - 12.5 fL LAB HEMATOLOGY METHOD 10/09/2024 4:52 AM EDT [facility] nRBC 0.0 <=0.0 per 100 WBCs LAB HEMATOLOGY METHOD 10/09/2024 4:52 AM EDT [facility] Blood Venous blood specimen / Unknown Venipuncture / Unknown 10/09/2024 4:28 AM EDT 10/09/2024 4:50 AM EDT us Eva Foote Epic Beacon Analyst RN OCCUPATIONAL, DNP LAB BLOOD ORDERABLE S Final Result [facility] [address] [place] [address] * (ABNORMAL) Basic metabolic panel (10/09/2024 4:28 AM EDT) Only the most recent of2 resultswithin the time period is included. Glucose, Plasma 286(H) 74 - 99 mg/dL 10/09/2024 5:48 AM EDT [facility] BUN, Plasma 36(H) 8 - 23 mg/dL 10/09/2024 5:48 AM EDT [facility] Creatinine, Plasma 1.45(H) 0.70 - 1.20 mg/dL 10/09/2024 5:48 AM EDT [facility] BUN/Creatinine Ratio 25 10/09/2024 5:48 AM EDT [facility] Sodium, Plasma 131(L) 136 - 145 mmol/L 10/09/2024 5:48 AM EDT [facility] Potassium, Plasma 3.4(L) 3.6 - 4.9 mmol/L 10/09/2024 5:48 AM EDT [facility] Comment:Hemolyzed, result ma y be falsely increased. Chloride, Plasma 99 97 - 107 mmol/L 10/09/2024 5:48 AM EDT [facility] CO2, Plasma 17(L) 22 - 29 mmol/L 10/09/2024 5:48 AM EDT [facility] Anion Gap 15 6 - 16 mmol/L 10/09/2024 5:48 AM EDT [facility] Total Calcium, Plasma 8.8(L) 8.9 - 10.2 mg/dL 10/09/2024 5:48 AM EDT [facility] eGFRcr 55.2 mL/min/1.7 3m*2 10/09/2024 5:48 AM EDT [facility] Comment:Reported eGFRcr in m L/min/1.73m2 is based the CKD-EPI 2020 equation that does not use a race coefficient. Blood Venous blood specimen / Unknown Venipuncture / Unknown 10/09/2024 4:28 AM EDT 10/09/2024 5:03 AM EDT us Eva Barnes RN OCCUPATIONAL, DNP LAB BLOOD ORDERABLE S Final Result [facility] [address] [place] [address] * XR Gastrograffin Challenge (10/09/2024 1:17 AM [...] of2 resultswithin the time period is included. [facility] Phosphorus, Plasma 3.8 2.5 - 4.5 mg/dL 10/08/2024 6:00 AM EDT [facility] Blood Venous blood specimen / Unknown Venipuncture / Unknown 10/08/2024 4:59 AM EDT 10/08/2024 5:16 AM EDT us Jj Carson MD LAB BLOOD ORDERABLES Final Res ult [facility] [address] [place] [address] * (ABNORMAL) Magnesium, Plasma (10/08/2024 4:59 AM EDT) Only the most recent of2 resultswithin the time period is included. Pathologist [facility] Magnesium, Plasma 1.7(L) 1.9 - 2.4 mg/dL 10/08/2024 6:00 AM EDT [facility] Blood Venous blood specimen / Unknown Venipuncture / Unknown 10/08/2024 4:59 AM EDT 10/08/2024 5:16 AM EDT Jj Carson MD LAB BLOOD ORDERABLES Final Res ult Performing Organization Address City/[facility]/ZIP Co de Phone Number [facility] [address] [place] [address] * (ABNORMAL) Hemoglobin A1c (10/08/2024 4:59 AM EDT) Hemoglobin A1c 7.6(H) <5.7 % 10/08/2024 11:37 AM EDT [facility] Blood Venous blood specimen / Unknown Venipuncture / Unknown 10/08/2024 4:59 AM EDT 10/08/2024 5:01 AM EDT Narrative [facility] - 10/08/2024 11:37 AM EDT [...] ORDERABLES Final Res ult Performing Organization Address City/[facility]/ZIP Co de Phone Number [facility] [address] [place] [address] * CT Abdomen Pelvis w IV Contrast [...] 10/08/2024 8:14 AM Final report signed by Domeinca Grimaldo DO on 10/08/2024 9:53 AM Narrative [...] ECG Atrial Rate 85 BPM MUSE ECG RI Interval 168 ms MUSE ECG QRSD Interval 162 ms MUSE ECG QT Interval 442 ms MUSE ECG QTC Interval 525 ms MUSE ECG P Lyme 16 degrees MUSE ECG R Lyme -32 degrees MUSE ECG T Wave Lyme 47 degrees MUSE ECG Diagnosis Normal sinus rhythm MUSE ECG Diagnosis Left axis deviation in the presence of LAFB MUSE ECG Diagnosis Right bundle branch block Bifascicular block MUSE ECG Diagnosis Minimal voltage criteria for LVH, may be normal variant ( R in aVL ) MUSE ECG Diagnosis Abnormal ECG MUSE ECG Diagnosis MUSE ECG Diagnosis Confirmed by Adarsh Pichardo ([id number]) on 10/08/2024 10:50:58 AM MUSE ECG 10/08/2024 12:5 5 AM EDT 10/08/2024 10:50 AM EDT us Mickie Jefferson MD ECG ORDERABLES Final Result MUSE ECG * ED HIV 1/2 Antibody/Antigen Screen w/Reflex to HIV 1/2 Differentiation (10/08/2024 12:55 AM EDT) HIV 1 & 2 Antibody/Antigen Screen Non Reactive Non Reactive 10/08/2024 2:00 AM EDT [facility] Comment:Screening for HIV 1 & 2 antibodies, and P24 antigen is NONREACTIVE. No confirmatory testing is required. Blood Venous blood specimen / Unknown Venipuncture / Unknown 10/08/2024 12:55 AM EDT 10/08/2024 1:11 AM EDT us Mickie Jefferson MD LAB BLOOD ORDERABLES Final Re sult Performing Organization Address [facility] Co de Phone Number [facility] [address] [place] [address] * Lactic acid, venous (10/08/2024 12:55 AM EDT) [facility] Lactate, Venous, Whole Blood 1.1 0.5 - 2.2 mmol/L LAB HEMATOLOGY METHOD 10/08/2024 1:10 AM EDT [facility] Blood Venous blood specimen / Unknown Venipuncture / Unknown 10/08/2024 12:55 AM EDT 10/08/2024 1:07 AM EDT us Mickie Jefferson MD LAB BLOOD ORDERABLES Final Re sult Performing Organization Address [facility] Co de Phone Number [facility] [address] [place] [address] * Hepatitis C Antibody - ED (10/08/2024 12:55 AM EDT) [facility] Hepatitis C Antibody Negative Negative 10/08/2024 2:16 AM EDT [facility] Blood Venous blood specimen / Unknown Venipuncture / Unknown 10/08/2024 12:55 AM EDT 10/08/2024 1:11 AM EDT us Mickie Jefferson MD LAB BLOOD ORDERABLES Final Re sult Performing Organization Address [facility] Co de Phone Number [facility] [address] [place] [address] * (ABNORMAL) PT-INR (10/08/2024 12:55 AM EDT) [facility] Prothrombin Time 14.7(H) 12.0 - 14.3 sec 10/08/2024 1:27 AM EDT [facility] INR 1.2(H) 0.9 - 1.1 10/08/2024 1:27 AM EDT [facility] Blood Venous blood specimen / Unknown Venipuncture / Unknown 10/08/2024 12:55 AM EDT 10/08/2024 1:05 AM EDT Narrative [facility] - 10/08/2024 1:27 AM EDT [...] MD LAB BLOOD ORDERABLES Final Re sult [facility] [address] [place] [address] * (ABNORMAL) CBC w/diff (10/08/2024 12:55 AM EDT) WBC Count 11.32(H) 3.70 - 10.30 10*3/uL LAB HEMATOLOGY METHOD 10/08/2024 1:09 AM EDT [facility] RBC Count 4.20(L) 4.60 - 6.10 10*6/uL LAB HEMATOLOGY METHOD 10/08/2024 1:09 AM EDT [facility] HGB 13.9 13.7 - 17.5 g/dL LAB HEMATOLOGY METHOD 10/08/2024 1:09 AM EDT [facility] HCT 38.0(L) 40.0 - 51.0 % LAB HEMATOLOGY METHOD 10/08/2024 1:09 AM EDT [facility] Platelet Count 293 155 - 369 10*3/uL LAB HEMATOLOGY METHOD 10/08/2024 1:09 AM EDT [facility] MCV 91 79 - 98 fL LAB HEMATOLOGY METHOD 10/08/2024 1:09 AM EDT [facility] MCH 33.1(H) 26.0 - 32.0 pg LAB HEMATOLOGY METHOD 10/08/2024 1:09 AM EDT [facility] MCHC 36.6(H) 30.7 - 35.5 g/dL LAB HEMATOLOGY METHOD 10/08/2024 1:09 AM EDT [facility] RDW 13.5 11.5 - 14.5 % LAB HEMATOLOGY METHOD 10/08/2024 1:09 AM EDT [facility] MPV 10.0 8.8 - 12.5 fL LAB HEMATOLOGY METHOD 10/08/2024 1:09 AM EDT [facility] nRBC 0.0 <=0.0 per 100 WBCs LAB HEMATOLOGY METHOD 10/08/2024 1:09 AM EDT [facility] Differential Type Automated LAB HEMATOLOGY METHOD 10/08/2024 1:09 AM EDT [facility] Neutrophils % 70 % LAB HEMATOLOGY METHOD 10/08/2024 1:09 AM EDT [facility] Lymphocytes % 10 % LAB HEMATOLOGY METHOD 10/08/2024 1:09 AM EDT [facility] Monocytes % 18 % LAB HEMATOLOGY METHOD 10/08/2024 1:09 AM EDT [facility] Eosinophils % 0 % LAB HEMATOLOGY METHOD 10/08/2024 1:09 AM EDT [facility] Basophils % 1 % LAB HEMATOLOGY METHOD 10/08/2024 1:09 AM EDT [facility] Immature Granulocytes % 1 % LAB HEMATOLOGY METHOD 10/08/2024 1:09 AM EDT [facility] Neutrophils Absolute 7.97(H) 1.60 - 6.10 10*3/uL LAB HEMATOLOGY METHOD 10/08/2024 1:09 AM EDT [facility] Lymphocytes Absolute 1.17(L) 1.20 - 3.90 10*3/uL LAB HEMATOLOGY METHOD 10/08/2024 1:09 AM EDT [facility] Monocytes Absolute 2.01(H) 0.30 - 0.90 10*3/uL LAB HEMATOLOGY METHOD 10/08/2024 1:09 AM EDT [facility] Eosinophils Absolute 0.02 0.00 - 0.50 10*3/uL LAB HEMATOLOGY METHOD 10/08/2024 1:09 AM EDT [facility] Basophils Absolute 0.07 0.00 - 0.10 10*3/uL LAB HEMATOLOGY METHOD 10/08/2024 1:09 AM EDT [facility] Immature Granulocytes Absolute 0.08(H) 0.00 - 0.06 10*3/uL LAB HEMATOLOGY METHOD 10/08/2024 1:09 AM EDT [facility] Blood Venous blood specimen / Unknown Venipuncture / Unknown 10/08/2024 12:55 AM EDT 10/08/2024 1:05 AM EDT Narrative [facility] - 10/08/2024 1:09 AM EDT Therapeutic decision making should be based on absolute values, rather than percentages. us Mickie Jefferson MD LAB BLOOD ORDERABLES Final Re sult Performing Organization Address City/[facility]/ZIP Co de Phone Number [facility] [address] [place] [address] * Type and screen (10/08/2024 12:55 AM [...] ORDERABLE S Final Result Performing Organization Address [facility] Co de Phone Number BLOOD BANK [address] [place] [address], [place] * (ABNORMAL) CMP (10/08/2024 12:55 AM EDT) Glucose, Plasma 235(H) 74 - 99 mg/dL 10/08/2024 1:37 AM EDT [facility] BUN, Plasma 44(H) 8 - 23 mg/dL 10/08/2024 1:37 AM EDT [facility] Creatinine, Plasma 1.52(H) 0.70 - 1.20 mg/dL 10/08/2024 1:37 AM EDT [facility] BUN/Creatinine Ratio 29 10/08/2024 1:37 AM EDT [facility] Sodium, Plasma 125(L) 136 - 145 mmol/L 10/08/2024 1:37 AM EDT [facility] Potassium, Plasma 3.8 3.6 - 4.9 mmol/L 10/08/2024 1:37 AM EDT [facility] Chloride, Plasma 93(L) 97 - 107 mmol/L 10/08/2024 1:37 AM EDT [facility] CO2, Plasma 14(L) 22 - 29 mmol/L 10/08/2024 1:37 AM EDT [facility] Anion Gap 18(H) 6 - 16 mmol/L 10/08/2024 1:37 AM EDT [facility] Total Calcium, Plasma 9.2 8.9 - 10.2 mg/dL 10/08/2024 1:37 AM EDT [facility] Total Protein 7.3 6.3 - 7.9 g/dL 10/08/2024 1:37 AM EDT [facility] Albumin, Plasma 3.9 3.5 - 5.2 g/dL 10/08/2024 1:37 AM EDT [facility] AST, Plasma 24 10 - 50 U/L 10/08/2024 1:37 AM EDT [facility] Comment:Hemolyzed, result ma y be falsely increased. ALT, Plasma 12 10 - 50 U/L 10/08/2024 1:37 AM EDT [facility] Alkaline Phosphatase, Plasma 89 40 - 115 U/L 10/08/2024 1:37 AM EDT [facility] Total Bilirubin, Plasma 0.8 0.2 - 1.1 mg/dL 10/08/2024 1:37 AM EDT [facility] eGFRcr 52.1 mL/min/1.7 3m*2 10/08/2024 1:37 AM EDT [facility] Comment:Reported eGFRcr in m L/min/1.73m2 is based the CKD-EPI 2020 equation that does not use a race coefficient. Blood Venous blood specimen / Unknown Venipuncture / Unknown 10/08/2024 12:55 AM EDT 10/08/2024 1:05 AM EDT us Mickie Jefferson MD LAB BLOOD ORDERABLES Final Re sult [facility] [address] [place] [address] * CT OUTSIDE IMAGES (10/07/2024 7:58 PM [...] updated to appropriate status: Yes Care Teams Rn Emergency Room Relationship Specialty Start Date End Date Tayo Jones MD [address] [place] [address] PCP - General 07/14/24
--- OUTSIDE RECORDS SUMMARY | 2024-11-10 09:45 | XMS_ITS | Clinical Summary ---
Author Organization [facility] Address [address] [place] [address] Care Team Providers Care Check Viewer Name Role Phone Jeremy Gil MD Unavailable Andres Alcantara DPM Unavailable Grant Fletcher MD Unavailable Niko Cueva MD Unavailable None, None Primary Care Provider UnavailGm Vigil DPM Unavailable Reina Byrd NP Unavailable Unavailable Allergies No known active allergies Medications Insulin Glargine (Lantus) 100 unit/mL (3 mL) Solostar INPNIndications :Type 2 diabetes mellitus with hyperglycemia, with long-term current use of insulin ([facility]) 16 Units by Subcutaneous route [...] hyperglycemia, with long-term current use of insulin PVD (peripheral vascular disease) ([facility]) Other osteomyelitis of left foot Social History [...] Advance Directives For more information, please contact: [phone] * Full Code (Latest Code Status on File) Date Activated Date Inactivated Comments 08/19/2020 3:05 AM No automated ch est compression devices for VAD Patients Care Teams Check Viewer Relationship Specialty Start Date End Date None, None [address] [facility] [place] [address] PCP - General 10/26/20 Jeremy Gil MD [address] [facility] Room [address] [place], [place] [id number] Internal Medicine 08/19/20 Andres Alcantara DPM [address] [place], [place] [id number] Resident Podiatry 08/22/20 Grant Fletcher MD [address] [place] [address] [address] [place] [address] Infectious Diseases 09/08/20 Niko Cueva MD [address] [place] [address] [address] [place] [address] Vascular Surgery 09/16/20 Gm Flor DPM [address] [place] [address] [place] [address] Podiatry 11/01/20 Reina Byrd NP [address] [place] [address] [place] [address] Nurse Practitioner Vascular Surgery 11/30/20
--- OUTSIDE RECORDS SUMMARY | 2024-11-10 09:45 | XMS_ITS | Encounter Summary ---
Author Organization [facility] Address [address] [place] [address] Care Team Providers Care Low Vision Therapist Name Role Phone Tayo Jones MD Primary Care Provider [phone] Encounter Details Date Type Department Care Team (Late Contact Info) Description 07/16/2024 Lab Requisition [facility] [address] [place] [address] Farhad Castillo MD [address] [address] Other acute appendicitis without perforation [...] Appointment [facility] [address] [place] [address] 11/19/2024 11:15 AM EDT Office Visit [facility] Multidisciplinary Oncology Clinic [address] [place] [address] Farhad Castillo MD [address] [address] documented as of this encounter Procedures Procedure Name Priority Date/Time Associated Diagnosis Comments SURGICAL PATHOLOGY CONSULT Routine 07/16/2024 1:13 PM EDT Other acute appendicitis without perforation or gangrene documented in this encounter Results * Surgical Pathology Consult (07/16/2024 1:13 PM EDT) Case Report Sugical Pathology Consult Case: [id number] Authorizing Provider: Farhad Castillo MD Collected: 07/16/2024 1313 Ordering Location: [facility] Lab Received: 07/16/2024 1313 Pathologist: Constance Murphy MD Specimen: Colon, [id number] 07/17/2024 1:08 PM EDT [facility] Final Diagnosis RIGHT COLON AND TERMINAL ILEUM, RIGHT HEMICOLECTOMY ([id number]; 11/09/2022): - 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 - TUMOR BUDDING SCORE: HIGH (10 OR GREATER). - NO TUMOR SEEN IN TWENTY ONE LYMPH NODES (0/21). 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 07/17/2024 1:08 PM EDT [facility] Clinical Information K35.890 - Other acute appendicitis without perforation or gangrene [ICD-10-CM] 07/17/2024 1:08 PM EDT [facility] Gross Description A. [id number] Received along with a corresponding pathology report from [facility] are 29 slides labeled outside case: [id number] collected on 11/09/2022. 07/17/2024 1:08 PM EDT [facility] Note: A resident was involved in the service. I attest I examined the relevant preparations for the specimens and confirmed the diagnosis or interpretation. 07/17/2024 1:08 PM EDT [facility] Tissue Colon structure / Unknown 07/16/2024 1:13 PM EDT 07/16/2024 1:13 PM EDT us Farhad Castillo MD LAB PATHOLOGY ORDERABLES F inal Result [facility] [address] [place] [address] documented in this encounter Visit Diagnoses Diagnosis Other acute appendicitis without perforation or gangrene documented in this encounter Care Teams Low Vision Therapist Relationship Specialty Start Date End Date Tayo Jones MD [address] [place] [address] PCP - General 07/14/24 documented as of this encounter
--- OUTSIDE RECORDS SUMMARY | 2024-11-10 09:45 | XMS_ITS | Encounter Summary ---
Author Organization [facility] Address [address] [place] [address] Care Team Providers Care Canvas Goods Maker Name Role Phone Tayo Jones MD Primary [...] any time in the past 12 m [facility], were you homeless or living in a detention (including now)? No 10/09/2024 Utilities Answer Date [...] Info) Description 11/19/2024 8:40 AM EDT Appointment [facility] [address] [place] [id number] 11/19/2024 11:15 AM EDT Office Visit [facility] Multidisciplinary Oncology Clinic [address] [place] [address] Farhad Castillo MD [address] [phone] documented as of this encounter Visit Diagnoses Not on filedocumented in this encounter Additional Health Concerns Assessment Noted Time A fall risk assessment has been complete d for the patient 07/23/2024 8:54 AM EDT A Body Mass Index follow-up plan has been documented for the patient 10/09/2024 3:15 PM EDT documented as of this encounter Care Teams Canvas Goods Maker Relationship Specialty Start Date End Date Tayo Jones MD [address] [place] [address] PCP - General 07/14/24 documented as of this encounter
[2024-11-10 10:27] LABS: Anion Gap 10.5 mEq/L (5-15); Blood Urea Nitrogen 19 mg/dl (9-20); Carbon Dioxide 25 mmol/L (22.0-30.0); Chloride 99 mmol/L (98-107); Potassium 4.5 mmoL/L (3.5-5.1); Sodium 130 mmol/L (136-145)
[2024-11-10 10:28] LABS: Alanine Aminotransferase 27 U/L (12-78); Albumin Level 3.4 g/dl (3.5-5.0); Albumin/Globulin Ratio 1.0 (1.1-1.8); Alkaline Phosphatase 88 U/L (38-126); Aspartate Amino Transferase 48 U/L (17-59); Bilirubin,Total 0.3 mg/dl (0.2-1.3); Calcium 9.3 mg/dl (8.4-10.2); Creatinine,Serum 0.90 mg/dl (0.66-1.25); Estimated Glomerular Filt Rate 86 ml/min (>60); GFR (African American) 104 ML/MIN (>60); Globulin 3.5 g/dL (1.3-3.2); Glucose 205 mg/dl (74-100); Total Protein,Serum 6.9 g/dl (6.3-8.2)
[2024-11-10 10:39] LABS: Hematocrit 36.2 % (42.0-52.0); Hemoglobin 11.8 g/dL (14.1-18.0); Mean Corpuscular HGB Conc 32.6 g/dL (31.8-35.4); Mean Corpuscular Hemoglobin 29.9 pg (27.0-31.2); Mean Corpuscular Volume 91.9 fl (80-94); Platelet Count 311 K/mm3 (142-424); Red Blood Count 3.94 M/mm3 (4.60-6.20); Red Cell Distribution Width-SD 46.1 fL; White Blood Count 10.0 K/mm3 (4.8-10.8)
[2024-11-10 10:40] LABS: Immature Granulocytes % 0.7 %; Nucleated Red Blood Cells % 0 %
[2024-11-10] MEDS: ONDANSETRON 4MG ODT 16 MG SL (11:05)
[2024-11-10] MEDS: DEXAMETHASONE 4MG TABLET 12 MG PO (11:05)
[2024-11-10 11:06] VITALS: BP 157/74; PULSE 85; RESP 20; TEMP 36.9; O2SAT 97
[2024-11-10] MEDS: SODIUM CHLORIDE 0.9% 10ML FLUSH SYRINGE 10 ML IV (11:06)
[2024-11-10 11:35] VITALS: BP 149/81; PULSE 86; RESP 20; O2SAT 98
[2024-11-10] MEDS: IRINOTECAN HCL IV (11:35)
[2024-11-10] MEDS: WATER IV (11:35)
[2024-11-10] MEDS: DEXTROSE 5% IV (11:35)
[2024-11-10 12:05] VITALS: BP 149/79; PULSE 78; RESP 20; O2SAT 98
[2024-11-10 12:35] VITALS: BP 121/76; PULSE 77; RESP 18; O2SAT 98
[2024-11-10 13:20] VITALS: BP 154/76; PULSE 83; RESP 18; O2SAT 98
== END 2024-11-10 13:20 | disposition home or self-care (01) ==
LOC: INF 09:43
PROVIDERS: PCP Family Medicine; Visit Provider Internal Medicine Medical Oncology
DX: C18.2 Malignant neoplasm of ascending colon (principal)
CPT/HCPCS: 80053; 85025; 96413; 96415; J1642; J7060; J8540; J9206; Q0162

== ENCOUNTER 2024-11-24 09:08 | Outpatient (CLI) | payer MEDICAID, SELFPAY ==
--- OUTSIDE RECORDS SUMMARY | 2024-10-08 00:10 | XMS_ITS | Encounter Summary ---
Author Organization [facility] Address [address] [id number] Care Team Providers Care Metal Moulder Name Role Phone Tayo Jones MD Primary Care Provider [phone] Reason for Visit * Reason Comments Abdominal Pain * Auth/Cert (Routine) Specialty Diagnoses / Procedures Referred By Samia t Referred To Contact Diagnoses Bowel obstruction (CMS/HCC) Bowel Obstruction, hx of Colon Cancer Wilda Carson MD [address] [address] Phone: tel: fax: [facility] [address] [place] [address] Phone: tel: Referral ID Status Reason Start Date Expiration Date Visits Re quested Visits Authorized [id number] 1 1 Encounter Details Date Type Department Care Team (Latest Contact Info) Description 10/08/2024 12:10 AM EDT - 10/09/2024 3:38 PM EDT Hospital Encounter [facility] [address] [place] [address] Mickie Jefferson MD [address] [place] [address] Wilda Carson MD [address] [address] Small bowel obstruction (CMS/HCC) (Primary Dx); Abdominal pain, generalized Discharge Disposition: Penitentiary Facility Social History Tobacco Use Types Packs/Day Years Used Date Smoking Tobacco: Never Smokeless Tobacco: Never Alcohol Use Standard Drinks/Week Comments Never 0 (1 standard drink = 0.6 oz pur e alcohol) PHQ-2 Answer Date Recorded Patient Health Questionnaire-2 Score 0 07/23/2024 Humiliation, Afraid, Rape, and Kick questionnair e Answer Date Recorded Within the last year, have y ou been afraid of your partner or ex-partner? No 10/09/2024 Within the last year, have y ou been humiliated or emotionally abused in other ways by your partner or ex-partner? No Within the last year, have y ou been kicked, hit, slapped, or otherwise physically hurt by your partner or ex-partner? No 10/09/2024 Within the last year, have y ou been raped or forced to have any kind of sexual activity by your partner or ex-partner? No 10/09/2024 Hunger Vital Sign Answer Date Recorded Within the past 12 months, y ou worried that your food would run out before you got the money to buy more. Never true 10/10/19 25 Ran Out of Food in the Last Year Not on file 10/09/2024 PRAPARE - Transportation Answer Date Re corded In the past 12 months, has l ack of transportation kept you from medical appointments or from getting medications? No 09/14 In the past 12 months, has l ack of transportation kept you from meetings, work, or from getting things needed for daily living? No 10/09/2024 Housing Stability Vital Sign Answer Marciano e Recorded In the last 12 months, was t here a time when you were not able to pay the mortgage or rent on time? No 10/09/2024 Number of Times Moved in the Last Year Not on fi le 10/09/2024 At any time in the past 12 m [facility], were you homeless or living in a long term (including now)? No 10/09/2024 Utilities Answer Date Recorded In the past 12 months has th e electric, gas, oil, or water company threatened to shut off services in your home? No 10/09/2024 Sex and Gender Information Value Date Recorded Sex Assigned at Male 07/31/2024 7:25 AM EDT Legal Sex Male 12:34 PM EDT Gender Identity Male 07/31/2024 7:25 AM EDT Sexual Orientation Not on file documented as of this encounter Last Filed Vital Signs Vital Sign Reading Time Taken Comments Blood Pressure 120/77 10/09/2024 1:47 PM EDT Pulse 87 10/09/2024 1:47 PM EDT Temperature 36.3 C (97.4 F) 10/09/2024 1:47 PM EDT Respiratory Rate 20 10/09/2024 1:47 PM EDT Oxygen Saturation 93% 10/09/2024 1:47 PM EDT Inhaled Oxygen Concentration - - Weight 114 kg (250 lb 7.1 oz) 10/08/2024 12:14 A M EDT Height - - Body Mass Index 36.98 07/23/2024 8:46 AM EDT documented in this encounter Functional Status * Calculated C-SSRS Risk Score (Lifetime/Recent) Answer Date of Assessment Author No Risk Indicated 10/08/2024 12:30 AM EDT Rachael Slade, JAN * Question Answer Date of Assessment Author 1. Wish to be (Past 1 Month) No 025 12:30 AM EDT Rachael Slade, RN 2. Non-Specific Active Suici sol Thoughts (Past 1 Month) No 10/08/2024 12:30 AM EDT Jhonatan Slade RN 6. Suicidal Behavior (Lifetime) No 12:30 AM EDT Rachael Slade, RN documented as of this encounter Discharge Instructions * Discharge Instructions* Valeriy Britt DO - 10/09/2024 1:05 PM EDT Images from the original note were not included. Department of Surgery Division of Colorectal Surgery Activity: Resume your regular activity Diet: You may eat a GI soft. You may try to gradually increase your diet in the next few weeks; however, avoid large meals such as steak. If you feel nauseous or cannot tolerated new foods, continue GI soft Be sure to stay hydrated and take in plenty of fluid. See attached diet instructions. Medications: Continue your home medications unless instructed otherwise at discharge. Follow up: You will follow up your medical oncology team at [facility] Questions: Call the [facility] at [phone] during business hours on weekdays or call [facility]'s after hours at [phone] to speak with a resident regional economic liaison for Colorectal surgery after 5pm or on weekends if: - you have a fever > 101F - you are vomiting and cannot keep down liquids documented in this encounter Medications at Time [...] as of this encounter Miscellaneous Notes * Progress Notes - Greg Rojo - 10/09/2024 2:57 PM EDT Case Management Discharge Note Nayan Womack 59 y.o. male CSN: [id number] Admission: 10/08/2024 12:10 AM Primary Problem: Bowel obstruction (CMS/HCC) Primary Marketing Information Coordinator: Self/ Facility Assistance Available at Discharge: Availability of Care Givers (#Hours): 24 hours Discharge Facility/Level of Care Needs: Discharge Facility/Level of Care Needs: 3-Penitentiary Facility Patient's Choice of Community Agency(s): [facility] ([facility]) Patient/Family Anticipated Services at Transition: Patient/Family Anticipated Services at Transition: none DME/Equipment Needed after Discharge: Equipment Currently Used at Home: none Readmission Within the Last 30 Days: Readmission Within the Last 30 Days: no previous admission in last 30 days Medicare Documentation: Medicare Second Notice?: No (N/A -1 Day) Follow-up: Franky Kim PA [address] [place] [address] Discharge Transportation: Transportation Anticipated: family or friend will provide Transportation Home at Discharge: Family/Friend will Provide Follow Up Transport: Transportation Needed to Follow up Appoinments: Other(Comment) (Facility) Additional Comments: POC reviewed with primary team. Refer to primary team's discharge note for details. Per MD pt is medically ready to discharge today. Pt is a ltc resident at a [facility]. Dispo: [facility] Facility: [facility] Facility Address: [address] [place] [address] RN to call Report: [phone] DC summary Fax: SW Sent through [employer] Transport: Sister to transport Patient is in agreement to dc today and is in agreement with above DC plan. No further CM needs identified. SATNAM Reza * Hospital Course - Valeriy Britt DO - 10/09/2024 12:58 PM EDT Nayan Womack is a 59 y.o. male with PMHx significant for moderately differentiated colon adenocarcinoma s/p R colectomy and adjuvant xeloda, loss to follow up, and recent representation with metastatic disease to the liver (currently on chemo) who presented to the [facility] on 10/08/2024 from anOSH d/t a bowel obstruction. His oncology care is provided at [facility]. CT imaging on presentation with diffusely dilated fluid filled large and small bowel with pneumatosis of of the segment of bowel at the staple line. Possible SBO at anastomosis vs enteritis. The patient was admitted and underwent NG decompression and fluid resuscitation. Gastrograffin challenge demonstrated contrast progressing to the rectum. Pain had no pain, diet was advanced as tolerated. On day of discharge, the patient was afebrile and hemodynamically stable, tolerating a full liquid diet, ambulating well, and having bowel and bladder function. He was deemed appropriate for discharge home. * Discharge Summary - Valeriy Britt DO - 10/09/2024 12:45 PM EDT Hospitalization Admit Date/Time: 10/08/2024 12:10 AM Admitting Attending: Wilda Carson Discharge Date: 10/09/24 Discharge Attending Physician: Wilda Carson MD PCP name and Address: Tayo Jones MD [address] [facility] [address] Referring provider name and address: Franky Kim PA [address] [facility] [address] [place] [address] Chief Concern, Brief History of Present Illness, and Hospital Course Nayan Womack is a 59 y.o. male with PMHx significant for moderately differentiated colon adenocarcinoma s/p R colectomy and adjuvant xeloda, loss to follow up, and recent representation with metastatic disease to the liver (currently on chemo) who presented to the [facility] on 10/08/2024 from [facility] d/t a bowel obstruction. His oncology care is provided at [facility]. CT imaging on presentation with diffusely dilated fluid filled large and small bowel with pneumatosis of of the segment of bowel at the staple line. Possible SBO at anastomosis vs enteritis. The patient was admitted and underwent NG decompression and fluid resuscitation. Gastrograffin challenge demonstrated contrast progressing to the rectum. Pain had no pain, diet was advanced as tolerated. On day of discharge, the patient was afebrile and hemodynamically stable, tolerating a full liquid diet, ambulating well, and having bowel and bladder function. He was deemed appropriate for discharge home. Surgeries and Procedures Medication List .. acetaminophen 500 MG tablet Commonly known as: Tylenol Take 1 tablet by mouth every 6 hours as needed for pain. capecitabine 500 MG chemo tablet Commonly known as: Xeloda Take 3 tablets (1,500 mg total) by mouth 2 (two) times a day. Swallow whole with water. Do not crush or cut. carvedilol 12.5 MG tablet Commonly known as: Coreg Take by mouth in the morning and in the evening. Take with meals. ferrous sulfate 325 (65 Fe) MG EC tablet insulin lispro 100 UNIT/ML injection pen Commonly known as: Admelog, HumaLOG Inject 10 Units under the skin 3 (three) times a day with meals. Lantus SoloStar 100 UNIT/ML injection pen Generic drug: insulin glargine Inject 35 Units under the skin nightly. lisinopril-hydroCHLOROthiazide 20-25 MG tablet Take 1 tablet by mouth daily. multivitamin tablet Take 1 tablet by mouth daily. Quercetin 500 MG capsule Take 2 tablets by mouth daily. spironolactone 25 MG tablet Commonly known as: Aldactone Take 1 tablet by mouth daily. . amLODIPine 5 MG tablet Commonly known as: Norvasc Take 1 tablet by mouth in the morning. ondansetron 4 MG tablet Commonly known as: Zofran Discharge Diagnosis Medical Problems Active and Resolved Hospital Problems Hospital * (Principal) Bowel obstruction (CMS/HCC) Post Discharge Instructions See AVS Outpatient Follow-Up Future Appointments Date Time Provider Department Center 11/19/2024 8:[address] 1 [facility] 11/19/2024 11:15 AM Farhad Castillo MD [facility] Test Results Pending At Discharge Pertinent Physical Exam At Time of Discharge Physical Exam Constitutional: General: He is not in acute distress. Appearance: He is obese. He is not ill-appearing or toxic-appearing. HENT: Head: Normocephalic and atraumatic. Cardiovascular: Rate and Rhythm: Normal rate and regular rhythm. Pulmonary: Effort: Pulmonary effort is normal. No respiratory distress. Abdominal: Palpations: Abdomen is soft. Tenderness: There is no guarding or rebound. Comments: Mild distension, non-tender to palpation Skin: General: Skin is warm and dry. Neurological: General: No focal deficit present. Mental Status: He is alert and oriented to person, place, and time. Psychiatric: Mood and Affect: Mood normal. Behavior: Behavior normal. Discharge Disposition/Condition Disposition: Home Condition: Stable (s/sx potential problems absent or manageable) I spent >30 minutes of patient care and instruction time in preparation for this discharge. Cosigned by Wilda Carson MD at 10/11/2024 12:18 AM EDT Associated attestation - Wilda Carson MD - 10/11/2024 12:18 AM EDT I saw and evaluated the patient with the resident/fellow. I discussed the case with the resident/fellow and agree with the findings and plan as documented. * Progress Notes - Valeriy Britt DO - 10/09/2024 8:14 AM EDT Images from the original note were not included. [facility] Department of Surgery Division of Colorectal Surgery Surgery Progress Note 10/09/24 Nayan Womack Subjective Subjective: HPI Nayan Womack is a 59 y.o. male with PMHx significant for moderately differentiated colon adenocarcinoma s/p R colectomy and adjuvant xeloda, loss to follow up, and recent representation with metastatic disease to the liver currently at [facility](driven by Onc at [facility]) who presented to the [facility] on 10/08/2024 from an OSH d/t a bowel obstruction. Patient states having intermittent diarrhea since starting chemotherapy but began having multiple episodes of diarrhea starting Saturday. He went to his local hospital for further evaluation where he had imaging that was concerning for diffuse bowel dilation and right colonic pneumatosis. Interval: Afebrile, normal rate, normotensive, on 2 L via nasal cannula. Reports that he feels much better than when he came in to the hospital. NG output not recorded, a few 100 mL of thin output in canister. Denies nausea. GGT challenge with contrast in the colon. Edited by: Valeriy Britt DO at 10/09/2024 0913 Review of Systems: Relevant review of systems was obtained as able and is negative unless stated above in HPI. Objective Objective: Vital signs: Vitals: 10/09/24 0500 BP: 129/80 Pulse: 82 Resp: 14 Temp: SpO2: 93% Physical Exam: Physical Exam Constitutional: General: He is not in acute distress. HENT: Head: Normocephalic and atraumatic. Nose: Comments: NG in place with thin output Eyes: Extraocular Movements: Extraocular movements intact. Conjunctiva/sclera: Conjunctivae normal. Cardiovascular: Rate and Rhythm: Normal rate. Pulmonary: Effort: Pulmonary effort is normal. No respiratory distress. Comments: 2L via NC Abdominal: Palpations: Abdomen is soft. Tenderness: There is no guarding or rebound. Comments: Moderate distension, non-tender to palpation Skin: General: Skin is warm and dry. Neurological: General: No focal deficit present. Mental Status: He is alert and oriented to person, place, and time. Psychiatric: Mood and Affect: Mood normal. Behavior: Behavior normal. Intake/Output Summary (Last 24 hours) at 10/09/2024 0913 Last data filed at 10/08/2024 1200 Gross per 24 hour Intake -- Output 450 ml Net -450 ml Lines/Drains/Tubes: Patient Lines/Drains/Airways Status Active Airway None Output by Drain (mL) 10/07/24 0700 - 10/07/24 1859 10/07/24 1900 - 10/08/24 0659 10/08/24 0700 - 10/08/24 1859 10/08/24 1900 - 10/09/24 0659 10/09/24 0700 - 10/09/24 0913 Patient has no LDAs of requested type attached. Labs in last 18 hours: CBC WBC 9.06 Hb 13.3 (L) Plt 312 Hct 37.0 (L) ANC ?? INR ??, PTT ??, Anti-Xa ?? MCV 91 BMP Na 131 (L) Cl 99 BUN 36 (H) Glu 286 (H) K 3.4 (L) Co2 17 (L) Cr 1.45 (H) Ca 8.8 (L) iCa ?? Mg ??, Phos ?? Lactate ?? LFT AST ?? AlkPhos ?? T Prot ?? ALK ?? Bili ?? Alb ?? D.Bili ?? Lab Trends: H/H Results from last 7 days Lab Units 10/09/24 0428 10/08/24 0459 10/08/24 0055 HEMOGLOBIN g/dL 13.3* 14.1 13.9 HEMATOCRIT % 37.0* 39.4* 38.0* INR Results from last 7 days Lab Units 10/08/24 0055 INR 1.2* Cr Results from last 7 days Lab Units 10/09/24 0428 10/08/24 0459 10/08/24 0055 CREATININE mg/dL 1.45* 1.26* 1.52* Lactate No lab exists for component: LACTTEVEN Radiographic Interpretation: === 10/08/24 === XR GASTROGRAFFIN CHALLENGE - Narrative - CLINICAL INDICATION: evaluate bowel obstruction- 8 hour film. contrast given at 1700- 10/08 TECHNIQUE: XR GASTROGRAFFIN CHALLENGE COMPARISON: CT 10/08/2024, abdomen image 10/08/2024 FINDINGS: Moderate gas within dilated small bowel in the central abdomen and medial right abdomen. In the lateral right abdomen and lower pelvis there is contrast within nondilated and borderline dilated smallbowel. There is moderate diffuse gas within dilated and nondilated colon. The right colon and transverse colon are mildly dilated. The descending colon is not dilated. There is moderate contrast in the colon, visualized in the right colon and transverse colon and also in the descending colon. No pneumatosis or pneumoperitoneum. NG tube tip mid stomach.. There is slightly less gas in both small bowel and colon compared to the CT topogram from previous day. There is contrast in urinary bladder. Mild bilateral basilar atelectasis. - Impression - Contrast has progressed to the colon. CRITICAL RESULT: No. COMMUNICATION: Per this written report. Drafted by Wesley Joe MD on 10/09/2024 7:49 AM Final report signed by Wesley Joe MD on 10/09/2024 7:54 AM Medications reviewed. Vital signs reviewed. Labs reviewed. Assessment/Plan Assessment and Plan: Medical Problems Problem List * (Principal) Bowel obstruction (CMS/HCC) Obesity (BMI 35.0-39.9 without comorbidity) Metastatic colon cancer to liver (CMS/HCC) Present on Admission: Bowel obstruction (CMS/HCC) Nayan Womack is a 59 y.o. male with PMHx significant for moderately differentiated colon adenocarcinoma s/p R colectomy and adjuvant xeloda, loss to follow up, and recent representation with metastatic disease to the liver currently at chemo(driven by Onc at [facility]) who presented to the [facility] on 10/08/2024 from an OSH d/t a bowel obstruction. WBC now normal, Creatinine 1.45 (1.26). Minimal thin NG output, we will remove today and try full liquids. Gastrografin challenge demonstrates contrast reaching the the descending colon, past the staple line. Plan: -remove NG -okay for full liquid diet -MIVF -AROBF -AM labs Edited by: Valeriy Britt DO at 10/09/2024 0913 Valeriy Britt DO Cosigned by Wilda Carson MD at 10/11/2024 12:18 AM EDT Associated attestation - Wilda Carson MD - 10/11/2024 12:18 AM EDT I saw and evaluated the patient with the resident/fellow. I discussed the case with the resident/fellow and agree with the findings and plan as documented. Mr. Womack is a 59-year-old male with right colon cancer status post right colectomy. Stage IV. Currently undergoing chemotherapy. Presents from outside facility with intermittent diarrhea and abdominal pain. Questionable cecal pneumatosis on CT imaging prior to arrival. Updated CT imaging with resolution. Having bowel movements. Tolerating diet. PLAN FOLLOWS: Discharge planning. * H&P - Kelly Hearn MD - 10/08/2024 3:47 AM EDTAssociated Order(s): Inpatient consult to Colorectal Surgery Images from the original note were not included. [facility] Department of Surgery Division of Colorectal Surgery History & Physical Note Reason for Consult: Bowel obstruction Requesting Service: Emergency Department Consult Date and Time: 10/08/2024 0509 Inpatient consult to Colorectal Surgery Consult performed by: Kelly Hearn MD Consult ordered by: Wilda Carson MD Subjective History of Present Illness: Chief Complaint: vomiting Nayan Womack is a 59 y.o. male with PMHx significant for moderately differentiated colon adenocarcinoma s/p R colectomy and adjuvant xeloda, loss to follow up, and recent representation with metastatic disease to the liver currently at chemo(driven by Onc at [facility]) who presented to the [facility] on 10/08/2024 from an OSH d/t a bowel obstruction. Patient states having intermittent diarrhea since starting chemotherapy but began having multiple episodes of diarrhea starting Saturday. He went to his local hospital for further evaluation where he had imaging that was concerning for diffuse bowel dilation and right colonic pneumatosis. He had an NG tube placed and was transferred here for further management. At the bedside the patient states that normally has ???normal?? bowel movements that are nonbloody. He has has had 1 episode of emesis on the weakness had no further episodes. His last bowel movement was worsening she states he had a large liquid bowel movement and is passing gas. Patient is not on any blood thinners. Has not had a colonoscopy since 2022. Last round of chemotherapy was on Saturday. Takes xeloda. Review of Systems: Relevant review of systems was obtained as able and is negative unless stated above in HPI. History Obtained From: Patient Past Medical History: Past Medical History[1] Allergies And Reactions: Allergies[2] Past Surgical History: Surgical History[3] Family Medical History: Family History[4] Reviewed and Non-contributory Social History: Social History Socioeconomic History Marital status: Single Spouse name: Not on file Number of children: Not on file Years of education: Not on file Highest education level: Not on file Occupational History Not on file Tobacco Use Smoking status: Never Smokeless tobacco: Never Vaping Use Vaping status: Never Used Substance and Sexual Activity Alcohol use: Never Drug use: Never Sexual activity: Defer Other Topics Concern Not on file Social History Narrative Not on file Social Drivers of Health Financial Resource Strain: Not on file Food Insecurity: Not on file Transportation Needs: Not on file Physical Activity: Not on file Stress: Not on file Social Connections: Not on file Intimate Partner Violence: Not on file Housing Stability: Not on file Immunizations: Immunization History Administered Date(s) Administered Moderna COVID-19 Vaccine ([employer] Picture [employer]inist) 12+ years 06/29/2020, 07/27/2020, 03/28/2021 Pfizer-BioNTech COVID-19 Bivalent (Yang Cap) 12+ years (dee-sucrose) 01/15/2022 I have updated and confirmed the past medical, surgical, family and social history. Home Medications: Prior to Admission medications Medication Sig Start Date End Date Taking? Authorizing Provider acetaminophen (Tylenol) 500 MG tablet Take 1 tablet by mouth every 6 hours as needed for pain. 07/31/24 Farhad Castillo MD amLODIPine (Norvasc) 5 MG tablet Take 1 tablet by mouth in the morning. Patient not taking: Reported on 07/27/2024 Tj Guerra MD capecitabine (Xeloda) 500 MG chemo tablet Take 3 tablets (1,500 mg total) by mouth 2 (two) times a day. Swallow whole with water. Do not crush or cut. Tj Guerra MD carvedilol (Coreg) 12.5 MG tablet Take by mouth in the morning and in the evening. Take with meals.07/30/23 Tj Guerra MD ferrous sulfate 325 (65 Fe) MG EC tablet 08/12/23 Tj Guerra MD insulin lispro (Admelog, HumaLOG) 100 UNIT/ML injection pen Inject 10 Units under the skin 3 (three) times a day with meals. 08/01/23 Tj Guerra MD Lantus SoloStar 100 UNIT/ML injection pen Inject 35 Units under the skin nightly. 05/29/24 Tj Guerra MD lisinopril-hydroCHLOROthiazide 20-25 MG tablet Take 1 tablet by mouth daily. Tj Guerra MD Multiple Vitamin (multivitamin) tablet Take 1 tablet by mouth daily. Tj Guerra MD ondansetron (Zofran) 4 MG tablet 04/19/24 Tj Guerra MD Quercetin 500 MG capsule Take 2 tablets by mouth daily. Tj Guerra MD spironolactone (Aldactone) 25 MG tablet Take 1 tablet by mouth daily. 07/11/24 Tj Guerra MD Anti-Thrombotic Medications: Is this patient taking warfarin, new oral anti-coagulant, or anti-platelet medication? No If Yes, What Medication: N/A Current Hospital Medications: Current Medications[5] Objective Objective: Visit Vitals BP 138/86 Pulse 89 Temp 36.4 ??C (97.5 ??F) (Oral) Wt 114 kg (250 lb 7.1 oz) SpO2 94% BMI 36.98 kg/m?? @ Physical Exam: Physical Exam HENT: Head: Normocephalic. Nose: Comments: NGT with green output Eyes: Extraocular Movements: Extraocular movements intact. Conjunctiva/sclera: Conjunctivae normal. Cardiovascular: Rate and Rhythm: Normal rate. Pulses: Normal pulses. Pulmonary: Effort: Pulmonary effort is normal. Abdominal: Palpations: Abdomen is soft. Comments: Significant abdominal distension, nontender on deep palpation. Not peritonitic. No pain out of proportion to exam. Midline diastasis with soft, non incarcerated underlying bowel. Musculoskeletal: Cervical back: Neck supple. Skin: General: Skin is warm. Neurological: General: No focal deficit present. Mental Status: He is alert. Psychiatric: Mood and Affect: Mood normal. Laboratory: CBC WBC 11.32 (H) Hb 13.9 Plt 293 Hct 38.0 (L) ANC 7.97 (H) INR 1.2 (H), PTT ??, Anti-Xa ?? MCV 91 BMP Na 125 (L) Cl 93 (L) BUN 44 (H) Glu 235 (H) K 3.8 Co2 14 (L) Cr 1.52 (H) Ca 9.2 iCa ?? Mg 1.9, Phos 4.6 (H) Lactate ?? LFT AST 24 AlkPhos 89 T Prot 7.3 ALK 12 Bili 0.8 Alb ?? D.Bili ?? Imaging: XR Abdomen 1 View Result Date: 10/08/2024 Enteric tube terminates over the mid stomach. Left chest wall Port-A-Cath may terminate within the azygos vein. [Or tortuous or ectatic SVC?] Partially visualized dilated loops of bowel. CRITICAL RESULT: No. COMMUNICATION: Per this written report. Preliminary report signed by Fei Amaral MD on 10/08/2024 3:34 AM By electronically signing this report, I, the attending physician, attest that I have personally reviewed the images/data for the above examination(s) and agree with the final edited report. Drafted by Fei Amaral MD on 10/08/2024 3:31 AM Final report signed by Valentin Mattson MD on 10/08/2024 3:39 AM Radiographic Interpretation: I have reviewed the imaging above and agree with the radiologist interpretation. Assessment/Plan Assessment & Plan: Nayan Womack is a 59 y.o. male with PMHx significant for moderately differentiated colon adenocarcinoma s/p R colectomy and adjuvant xeloda, loss to follow up, and recent representation with metastatic disease to the liver currently at chemo(driven by Onc at [facility]) who presented to the [facility] on 10/08/2024 from an OSH d/t a bowel obstruction. Patient is AVSS. Labs are notable for WBC 11 with left shift, INR 1.2, Na 125, CL 93, C 1.5, BUN 44, phos 4.6, lactate 1.1. CT scan concerning for diffusely dilated fluid filled large and small bowel with pneumatosis of the segment of bowel at the staple line with an abrupt decompression proximal to the staple line. Grewal dilation is abnormal but he could have an underlying colitis from ongoing chemotherapy(and has no IC valve) vs additive impact on a concerning area of tethering in the right abdomen vs stricture at his staple line;PET 07/07 was w/o avid uptake at his staple line to suggest recurrence. Patient is HDS, not peritonitic, and theres no pneumoperitoneum to warrant emergent surgery. Will follow abdominal exams and re scan to determine if we need to explore if theres worsening developmentof ischemia. -admit scr -npo, mivf -ngt cLWS -ppi -ssi-- give insulin+D5 now, borderline eDKA with CO2 down and gluc 225 -f/u CT imaging -[facility] Dispo: Admit to scr CODE STATUS: full code This Consult, Assessment, and Plan has been discussed with Dr. Carson, Attending Physician Kelly Hearn MD [1] Past Medical History: Diagnosis Date Diabetes (CMS/HCC) High blood pressure [2] No Known Allergies [3] Past Surgical History: Procedure Laterality Date APPENDECTOMY FOOT SURGERY Left surgery dur to diabetes LEG SURGERY Right surgery dur to diabetes [4] Family History Problem Relation Name Age of Onset Other (paternal aunt breast cancer) Other Anesthesia problems Neg Hx Malig Hyperthermia Neg Hx [5] No current facility-administered medications for this encounter. Current Outpatient Medications Medication Sig Dispense Refill acetaminophen (Tylenol) 500 MG tablet Take 1 tablet by mouth every 6 hours as needed for pain. 50 tablet 0 amLODIPine (Norvasc) 5 MG tablet Take 1 tablet by mouth in the morning. (Patient not taking: Reported on 07/27/2024) capecitabine (Xeloda) 500 MG chemo tablet Take 3 tablets (1,500 mg total) by mouth 2 (two) times a day. Swallow whole with water. Do not crush or cut. carvedilol (Coreg) 12.5 MG tablet Take by mouth in the morning and in the evening. Take with meals. ferrous sulfate 325 (65 Fe) MG EC tablet insulin lispro (Admelog, HumaLOG) 100 UNIT/ML injection pen Inject 10 Units under the skin 3 (three) times a day with meals. Lantus SoloStar 100 UNIT/ML injection pen Inject 35 Units under the skin nightly. lisinopril-hydroCHLOROthiazide 20-25 MG tablet Take 1 tablet by mouth daily. Multiple Vitamin (multivitamin) tablet Take 1 tablet by mouth daily. ondansetron (Zofran) 4 MG tablet (Patient not taking: Reported on 07/27/2024) Quercetin 500 MG capsule Take 2 tablets by mouth daily. spironolactone (Aldactone) 25 MG tablet Take 1 tablet by mouth daily. Cosigned by Wilda Carson MD at 10/11/2024 12:18 AM EDT Associated attestation - Wilda Carson MD - 10/11/2024 12:18 AM EDT I saw and evaluated the patient with the resident/fellow. I discussed the case with the resident/fellow and agree with the findings and plan as documented. Mr. Womack is a 59-year-old male with right colon cancer status post right colectomy. Stage IV. Currently undergoing chemotherapy. Presents from outside facility with intermittent diarrhea and abdominal pain. Questionable cecal pneumatosis on CT imaging prior to arrival. Abdomen benign. Nontender. Overall, feels well. PLAN FOLLOWS: Observation. Repeat CT. * Care Plan - Michell Campa RN - 10/08/2024 12:10 AM EDT Problem: Adult Inpatient Plan of Care Goal: Plan of Care Review Outcome: Ongoing, Progressing Flowsheets (Taken 10/09/2024 3868) Plan of Care Reviewed With: patient Goal: Patient-Specific Goal (Individualized) Outcome: Ongoing, Progressing Goal: Absence of Hospital-Acquired Illness or Injury Outcome: Ongoing, Progressing Intervention: Identify and Manage Fall Risk Flowsheets (Taken 10/09/2024826) Safety Promotion/Fall Prevention: assistive device/personal items within [facility] fall prevention program maintained safety round/check completed mobility aid in [facility] clutter-free environment maintained Intervention: Prevent Infection Flowsheets (Taken 10/09/2024826) Infection Prevention: hand hygiene promoted rest/sleep promoted Goal: Optimal Comfort and Wellbeing Outcome: Ongoing, Progressing Goal: Readiness for Transition of Care Outcome: Ongoing, Progressing * Care Plan - Michell Campa RN - 10/08/2024 12:10 AM EDT Problem: Adult Inpatient Plan of Care Goal: Plan of Care Review 10/09/20241536 by Michell Campa RN Outcome: Met 10/09/2024826 by Michell Campa RN Outcome: Ongoing, Progressing Flowsheets (Taken 10/09/2024826) Plan of Care Reviewed With: patient Goal: Patient-Specific Goal (Individualized) 10/09/20241536 by Michell Campa RN Outcome: Met 10/09/2024826 by Michell Campa RN Outcome: Ongoing, Progressing Goal: Absence of Hospital-Acquired Illness or Injury 10/09/20241536 by Michell Campa RN Outcome: Met 10/09/2024826 by Michell Campa RN Outcome: Ongoing, Progressing Intervention: Identify and Manage Fall Risk Flowsheets (Taken 10/09/2024826) Safety Promotion/Fall Prevention: assistive device/personal items within [facility] fall prevention program maintained safety round/check completed mobility aid in [facility] clutter-free environment maintained Intervention: Prevent Infection Flowsheets (Taken 10/09/2024826) Infection Prevention: hand hygiene promoted rest/sleep promoted Goal: Optimal Comfort and Wellbeing 10/09/20241536 by Michell Campa RN Outcome: Met 10/09/2024826 by Michell Campa RN Outcome: Ongoing, Progressing Goal: Readiness for Transition of Care 10/09/20241536 by Michell Campa RN Outcome: Met 10/09/2024 0827 by Michell Campa RN Outcome: Ongoing, Progressing * ED Provider Notes - Leeanne Raza MD - 10/08/2024 12:10 AM EDT Images from the original note were not included. - HPI Chief Complaint Patient presents with Abdominal Pain HPI 59 year old male with PMH significant for metastatic colon cancer, s/p colectomy, on active chemotherapy who presents for evaluation of abdominal pain, vomiting. Patient reports he started having abdominal pain on Saturday. Reports he started having vomiting accompanied by nausea for the past 2 days.Reports he is having diarrhea at this time as well though. Patient was seen at an outside hospital transferred here for concern for a bowel obstruction. Patient denies any other symptoms at this time. Patient History Past Medical History[1] Surgical History[2] Family History[3] Social History[4] Allergies: Allergies[5] Physical Exam ED Triage Vitals [10/08/24 0014] Temp Heart Rate Resp BP 36.6 ??C (97.9 ??F) 87 13 133/89 SpO2 Temp Source Heart Rate Source Patient Position 94 % Oral -- -- BP Location FiO2 (%) -- -- Physical Exam Constitutional: Appearance: He is not ill-appearing or diaphoretic. HENT: Head: Normocephalic and atraumatic. Mouth/Throat: Comments: NG tube in place Eyes: General: No scleral icterus. Extraocular Movements: Extraocular movements intact. Pupils: Pupils are equal, round, and reactive to light. Cardiovascular: Rate and Rhythm: Normal rate and regular rhythm. Pulmonary: Effort: Pulmonary effort is normal. Breath sounds: Normal breath sounds. Abdominal: General: There is distension. Tenderness: There is generalized abdominal tenderness. Skin: General: Skin is warm and dry. Capillary Refill: Capillary refill takes 2 to 3 seconds. Neurological: Mental Status: He is alert and oriented to person, place, and time. [place] Coma Scale Score: 15 ED Course & MDM - Assessment: 59 y.o. male presents to ED with complaint of abdominal pain and vomiting. It should be noted that the chronic conditions includes metastatic colon cancer, which currently is not at goal therapy. This complicates the clinical picture because it Comorbidities: may be exacerbating symptoms, increasesthe amount and complexity of data to be reviewed, and increases the risk for morbidity. Upon arrival patient is hemodynamically stable, afebrile, in no acute distress. Patient reports abdominal pain since Saturday, also reports vomiting for the past 2 days. Patient was seen at an outside hospital where he is found to have a small-bowel obstruction. NG tube placed at outside hospital patient transferred here for further care. Differential Diagnosis: Small-bowel obstruction, large bowel obstruction, ileus, metastatic cancer progression, electrolyte abnormality, dehydration, pneumoperitoneum. Ruling out the most morbid condition drove my assessment. In order to fully explore the differential diagnosis the following treatments and tests were ordered: All Other Orders Ordered Status Ordering Provider 10/08/24427 Vital Signs Every 4 hours Acknowledged DHIRAJ KELLY Hooper 10/08/24427 Notify Provider Until discontinued Acknowledged DHIRAJ [facility] 10/08/24427 Intake and Output - Strict Per unit protocol Acknowledged DHIRAJ KELLY Hooper 10/08/24427 Insert peripheral IV Once Placed in And Linked Group Acknowledged SANDS KELLY Hooper 10/08/24427 Saline lock IV Once Placed in And Linked Group Acknowledged SANDS KELLY Hooper 10/08/24427 Once Canceled SANDYang KELLY Hooper 10/08/24427 Full code Continuous Acknowledged DHIRAJ KELLY Hooper 10/08/24427 NPO diet Diet effective now Acknowledged DHIRAJ [facility] 10/08/24427 Mobility Orders Until discontinued Acknowledged SANDS [facility] 10/08/24427 Incentive spirometry Every 1 hour while awake Darrell HEARN [facility] 10/08/24427 Nasogastric tube maintenance Connect to: Low continuous suction; Care Instructions: Do not adjust tube and notify provider for displacement Until discontinued Acknowledged DHIRAJ KELLY Hooper 10/08/24427 Sequential compression device Until discontinued Comments: SCDs must be in place and turned on EXCEPT when ACTIVELY ambulating. Acknowledged CHRISTIANES KELLY 10/08/24427 Do Not Give Nicotine Replacement Until discontinued Acknowledged DHIRAJ KELLY Sandie 10/08/[address] Abdomen Pelvis w IV Contrast Once In process LEEANNE RAZA 10/08/24 0117 Once Provider: (Not yet assigned) Canceled LEEANNE RAZA Yang 10/08/24 0050 XR Abdomen 1 View Once Final result LEEANNE RAZA 10/08/24 0050 Hepatitis C Antibody - ED Once Final result LEEANNE RAZA Yang 10/08/24 005 ED Protocol - HIV 1/2 Antibody/Antigen Screen Once Final result LEEANNE RAZA Yang 10/08/24 0050 ED HIV 1/2 Antibody/Antigen Screen w/Reflex to HIV 1/2 Differentiation PROCEDURE ONCE Final result RAZALEEANNE Yang 10/08/24 0050 CMP STAT Final result LEEANNE RAZA Yang 10/08/24 0050 Magnesium STAT Final result LEEANNE RAZA 10/08/24 0050 Phosphorus STAT Final result LEEANNE RAZA Yang 10/08/24 005 Lactic acid, venous STAT Final result LEEANNE RAZA Yang 10/08/24 0050 CBC w/diff STAT Final result LEEANNE RAZA Yang 10/08/24 0050 PT-INR STAT Final result LEEANNE RAZA Yang 10/08/24 005 EKG now - STAT (adult) Once Preliminary result TARACALIXTOROD Soria 10/08/24 005 Type and screen Start now Final result TARA LEEANNE S ED Course as of 10/08/[address] [facility] Oct 08, 2024 005 Upon arrival, patient is hemodynamically stable, afebrile, in no acute distress. Patient reports abdominal pain since Saturday. Reports vomiting for the past two days, was seen at an OSH and transferred here for concern for obstruction. [OM] 0117 ESS consulted, patient is surg onc patient [OM] 0118 OSH records reviewed, concern for small bowel obstruction. Patient has colon cancer s/p colectomy, on chemotherapy currently. [OM] 0134 Lactic acid, venous Within normal limits [OM] 0344 Repeat scan ordered per CR team request. [OM] 0345 CMP(!) Acute kidney injury, no evidence of acute liver injury [OM] 0515 Patient admitted to Colorectal service for further care and management. [OM] ED Course User Index [OM] Leeanne Raza MD Clinical Impressions as of 10/08/24 0516 Small bowel obstruction (CMS/HCC) Abdominal pain, generalized Dispo: admit to CR Social Determinates of Health Risks (including Economic Stability, Education and level of understanding, Healthcare access and quality and concerning social factors): None identified on this visit ED Prescriptions None Disposition Admit Admitting/Attending Physician: WILDA CARSON [[id number]] Provider Care Team: [facility] [[id number]] Are they the primary team?: Yes [1] - [1] Past Medical History: Diagnosis Date Diabetes (CMS/HCC) High blood pressure [2] Past Surgical History: Procedure Laterality Date APPENDECTOMY FOOT SURGERY Left surgery dur to diabetes LEG SURGERY Right surgery dur to diabetes [3] Family History Problem Relation Name Age of Onset Other (paternal aunt breast cancer) Other Anesthesia problems Neg Hx Malig Hyperthermia Neg Hx [4] Tobacco Use Smoking status: Never Smokeless tobacco: Never Vaping Use Vaping status: Never Used Substance Use Topics Alcohol use: Never Drug use: Never [5] No Known Allergies Leeanne Raza MD Resident 10/08/24516 Cosigned by Mickie Jefferson MD at 10/08/2024 6:05 AM EDT Associated attestation - Mickie Jefferson MD - 10/08/2024 6:05 AM EDT I saw and evaluated the patient with the resident/fellow. I discussed the case with the resident/fellow and agree with the findings and plan as documented. * ED Triage Notes - Elin Simental RN - 10/08/2024 12:10 AM EDT Pt presented to OSH for abd pain, n/v; OSH sent for possible SBO. Hx DM, colon cancer on chemo. GCS15, VSS documented in this encounter Plan of Treatment Upcoming Encounters Date Type Department Care Team (Late st Contact Info) Description 12/03/2024 2:00 PM EDT Appointment Cardiac Imaging [address] [place] [address] 12/03/2024 3:30 PM EDT Appointment Cardiac Imaging [address] [place] [address] 12/20/2024 11:00 AM EDT Appointment [facility] [address] [place] [address] documented as of this encounter Procedures Procedure Name Priority Date/Time Associated Diagnosis Comments POCT GLUCOSE METER UNSOLICITED RESULTS Routine 10/09/2024 12:08 PM EDT XR ABDOMEN 1 VIEW Routine 10/09/2024 9:4 1 AM EDT POCT GLUCOSE METER UNSOLICITED RESULTS Routine 10/09/2024 5:47 AM EDT CBC W/O DIFFERENTIAL Routine 10/09/2024 4:28 AM EDT BASIC METABOLIC PANEL, PLASMA Routine 10/09/2024 4:28 AM EDT XR GASTROGRAFIN CHALLENGE Timed 10/09/2024 1:17 AM EDT POCT GLUCOSE METER UNSOLICITED RESULTS Routine 10/08/2024 11:59 PM EDT POCT GLUCOSE METER UNSOLICITED RESULTS Routine 10/08/2024 9:01 PM EDT POCT GLUCOSE METER UNSOLICITED RESULTS Routine 10/08/2024 5:08 PM EDT POCT GLUCOSE METER UNSOLICITED RESULTS Routine 10/08/2024 11:57 AM EDT POCT GLUCOSE METER UNSOLICITED RESULTS Routine 10/08/2024 7:55 AM EDT POCT GLUCOSE METER UNSOLICITED RESULTS Routine 10/08/2024 5:40 AM EDT CBC W/O DIFFERENTIAL STAT 10/08/2024 4:59 AM EDT PHOSPHORUS, PLASMA Routine 10/08/2024 4: 59 AM EDT MAGNESIUM, PLASMA Routine 10/08/2024 4:5 9 AM EDT HEMOGLOBIN A1C Add-On 10/08/2024 4:59 AM EDT BASIC METABOLIC PANEL, PLASMA Routine 10/08/2024 4:[address] ABDOMEN PELVIS W IV CONTRAST STAT 10/08/2024 4:44 AM EDT XR ABDOMEN 1 VIEW STAT 10/08/2024 2:1 7 AM EDT ECG ADULT STAT 10/08/2024 12:55 AM EDT ED HIV 1/2 ANTIBODY/ANTIGEN SCREEN WITH REFLEX TO HIV I/II DIFFERENTIATION STAT 10/08/2024 12:55 AM EDT ED PROTOCOL HIV 1/2 ANTIBODY/ANTIGEN SCREEN W/REFLEX TO HIV 1/2 ANTIBODY DIFFERENTIATION STAT 10/08/2024 12:55 AM EDT LACTATE, VENOUS STAT 10/08/2024 12:55 AM EDT HEPATITIS C ANTIBODY - ED W/REFLEX TO HCV QUANT PCR STAT 10/08/2024 12:55 AM EDT PROTHROMBIN TIME(PT) / INR STAT 10/08/2024 12:55 AM EDT CBC WITH AUTO DIFFERENTIAL STAT 10/08/2024 12:55 AM EDT TYPE AND SCREEN STAT 10/08/2024 12:55 AM EDT PHOSPHORUS, PLASMA STAT 10/08/2024 12 :55 AM EDT MAGNESIUM, PLASMA STAT 10/08/2024 12: 55 AM EDT COMPREHENSIVE METABOLIC PANEL, PLASMA STAT 10/08/2024 12:55 AM EDT documented in this encounter Results * (ABNORMAL) POCT glucose meter (10/09/2024 12:08 PM EDT) POCT Glucose 240(H) 74 - 99 mg/dL 10/09/2024 12:12 PM EDT [facility] Comment:Accuracy of [...] to the main labortory for testing. Comment 10/09/2024 12:12 PM EDT [facility] Conventional Mortgage Underwriter ID Julia Wisdom [id number] 12:12 PM EDT [facility] Device ID [id number] 10/09/2024 12:12 PM EDT [facility] Specimen Type POC Capillary 10/09/2024 12:12 PM EDT [facility] Blood Capillary blood specimen / Unknown 10/09/2024 12:08 PM EDT 10/09/2024 12:12 PM EDT Wilda Carson MD LAB POINT OF CARE TE ST DOCKED DEVICE UNSOLICITED RESULTS Final Result [facility] [address] [place] [address] * XR Abdomen 1 View (10/09/2024 9:41 AM EDT) Anatomical Region Laterality Modality Body Digital Radiogra phy Impressions 10/09/2024 9:54 AM EDT Decreased contrast in the distal small bowel, with increased contrast in the distal colon, compared to most recent prior image.. CRITICAL RESULT: No. COMMUNICATION: Per this written report. Drafted by Wesley Joe MD on 10/09/2024 9:48 AM Final report signed by Wesley Joe MD on 10/09/2024 9:54 AM Narrative 10/09/2024 9:54 AM EDT CLINICAL INDICATION: re-eval contrast; early repeat GG XR since last appeared to reach colon TECHNIQUE: XR ABDOMEN 1 VIEW COMPARISON: Gastrografin challenge 10/09/2024, [address] 10/08/2024. Abdomen image 10/08/2024. FINDINGS: Contrast is now visualized in the ascending colon, distal transverse colon, sigmoid colon, and in the rectum. There is now less contrast in the ascending colon with increased contrast in the distal colon compared to the prior image.. There is now small amount of contrast in the distal small bowel, with less contrast in the distal small bowel compared to the prior image. Moderate gas within mildly dilated and nondilated small bowel, slight increase in gas in the small bowel.. Moderate gas within mildly dilated and nondilated colon, with slightly less gas in the colon.. There is limited gas in the stomach. No pneumatosis or pneumoperitoneum.. NGT has been removed.. Unchanged lung bases. Procedure Note Wesley Joe MD - 10/09/2024 CLINICAL INDICATION: re-eval contrast; early repeat GG XR since last appeared to reach colon TECHNIQUE: XR ABDOMEN 1 VIEW COMPARISON: Gastrografin challenge 10/09/2024, [address] 10/08/2024. Abdomenimage 10/08/2024. FINDINGS: Contrast is now visualized in the ascending colon, distal transversecolon, sigmoid colon, and in the rectum. There is now less contrast in theascending colon with increased contrast in the distal colon compared tothe prior image.. There is now small amount of contrast in the distalsmall bowel, with less contrast in the distal small bowel compared to theprior image. Moderate gas within mildly dilated and nondilated small bowel, slightincrease in gas in the small bowel.. Moderate gas within mildly dilatedand nondilated colon, with slightly less gas in the colon.. There islimited gas in the stomach. No pneumatosis or pneumoperitoneum.. NGT hasbeen removed.. Unchanged lung bases. IMPRESSION: Decreased contrast in the distal small bowel, with increased contrast inthe distal colon, compared to most recent prior image.. CRITICAL RESULT: No. COMMUNICATION: Per this written report. Drafted by Wesley Joe MD on 10/09/2024 9:48 AM Final report signed by Wesley Joe MD on 10/09/2024 9:54 AM us Wilda Carson MD IMG XR PROCEDURES Final Result * (ABNORMAL) POCT glucose meter (10/09/2024 5:47 AM EDT) [facility] POCT Glucose 270(H) 74 - 99 mg/dL 10/09/2024 5:49 AM EDT [facility] Comment:Accuracy of a glucos e result obtained from a capillary whole blood specimen relies upon adequate, non-compromised capillary blood flow. If the capillary glucose result is not consistent with the patient's clinical signs and symptoms, glucose testing should be repeated with either an arterial or venous sample on the glucometer or sent to the main labortory for testing. Comment 10/09/2024 5:49 AM EDT [facility] Conventional Mortgage Underwriter ID Flor Marks 10/09/2024 5:49 AM EDT [facility] Device ID [id number] 10/09/2024 5:49 AM EDT [facility] Specimen Type POC Capillary 10/09/2024 5:49 AM EDT [facility] Blood Capillary blood specimen / Unknown 10/09/2024 5:47 AM EDT 10/09/2024 5:49 AM EDT us Wilda Carson MD LAB POINT OF CARE TE ST DOCKED DEVICE UNSOLICITED RESULTS Final Result Performing Organization Address City/State/[facility] Co de Phone Number [facility] [address] [place] [address] * (ABNORMAL) Basic metabolic panel (10/09/2024 4:28 AM EDT) [facility] Glucose, Plasma 286(H) 74 - 99 mg/dL 10/09/2024 5:48 AM EDT [facility] BUN, Plasma 36(H) 8 - 23 mg/dL 10/09/2024 5:48 AM EDT [facility] Creatinine, Plasma 1.45(H) 0.70 - 1.20 mg/dL 10/09/2024 5:48 AM EDT [facility] BUN/Creatinine Ratio 25 10/09/2024 5:48 AM EDT [facility] Sodium, Plasma 131(L) 136 - 145 mmol/L 10/09/2024 5:48 AM EDT [facility] Potassium, Plasma 3.4(L) 3.6 - 4.9 mmol/L 10/09/2024 5:48 AM EDT [facility] Comment:Hemolyzed, result ma y be falsely increased. Chloride, Plasma 99 97 - 107 mmol/L 10/09/2024 5:48 AM EDT [facility] CO2, Plasma 17(L) 22 - 29 mmol/L 10/09/2024 5:48 AM EDT [facility] Anion Gap 15 6 - 16 mmol/L 10/09/2024 5:48 AM EDT [facility] Total Calcium, Plasma 8.8(L) 8.9 - 10.2 mg/dL 10/09/2024 5:48 AM EDT [facility] eGFRcr 55.2 mL/min/1.7 3m*2 10/09/2024 5:48 AM EDT [facility] Comment:Reported eGFRcr in m L/min/1.73m2 is based the CKD-EPI 2020 equation that does not use a race coefficient. Blood Venous blood specimen / Unknown Venipuncture / Unknown 10/09/2024 4:28 AM EDT 10/09/2024 5:03 AM EDT Eva Barnes DRAINAGE ENGINEER, DNP LAB BLOOD ORDERABLE S Final Result [facility] [address] [place] [address] * (ABNORMAL) CBC W/O Differential (10/09/2024 4:28 AM EDT) WBC Count 9.06 3.70 - 10.30 10*3/uL LAB HEMATOLOGY METHOD 10/09/2024 4:52 AM EDT [facility] RBC Count 4.07(L) 4.60 - 6.10 10*6/uL LAB HEMATOLOGY METHOD 10/09/2024 4:52 AM EDT [facility] HGB 13.3(L) 13.7 - 17.5 g/dL LAB HEMATOLOGY METHOD 10/09/2024 4:52 AM EDT [facility] HCT 37.0(L) 40.0 - 51.0 % LAB HEMATOLOGY METHOD 10/09/2024 4:52 AM EDT [facility] Platelet Count 312 155 - 369 10*3/uL LAB HEMATOLOGY METHOD 10/09/2024 4:52 AM EDT [facility] MCV 91 79 - 98 fL LAB HEMATOLOGY METHOD 10/09/2024 4:52 AM EDT [facility] MCH 32.7(H) 26.0 - 32.0 pg LAB HEMATOLOGY METHOD 10/09/2024 4:52 AM EDT [facility] MCHC 35.9(H) 30.7 - 35.5 g/dL LAB HEMATOLOGY METHOD 10/09/2024 4:52 AM EDT [facility] RDW 13.5 11.5 - 14.5 % LAB HEMATOLOGY METHOD 10/09/2024 4:52 AM EDT [facility] MPV 9.1 8.8 - 12.5 fL LAB HEMATOLOGY METHOD 10/09/2024 4:52 AM EDT [facility] nRBC 0.0 <=0.0 per 100 WBCs LAB HEMATOLOGY METHOD 10/09/2024 4:52 AM EDT [facility] Blood Venous blood specimen / Unknown Venipuncture / Unknown 10/09/2024 4:28 AM EDT 10/09/2024 4:50 AM EDT Eva Barnes DRAINAGE ENGINEER, DNP LAB BLOOD ORDERABLE S Final Result [facility] [address] [place] [address] * XR Gastrograffin Challenge (10/09/2024 1:17 AM EDT) Anatomical Region Laterality Modality Body Digital Radiogra phy Impressions 10/09/2024 7:54 AM EDT Contrast has progressed to the colon. CRITICAL RESULT: No. COMMUNICATION: Per this written report. Drafted by Wesley Joe MD on 10/09/2024 7:49 AM Final report signed by Wesley Joe MD on 10/09/2024 7:54 AM Narrative 10/09/2024 7:54 AM EDT CLINICAL INDICATION: evaluate bowel obstruction- 8 hour film. contrast given at 1700- 10/08 TECHNIQUE: XR GASTROGRAFFIN CHALLENGE COMPARISON: CT 10/08/2024, abdomen image 10/08/2024 FINDINGS: Moderate gas within dilated small bowel in the central abdomen and medial right abdomen. In the lateral right abdomen and lower pelvis there is contrast within nondilated and borderline dilated small bowel. There is moderate diffuse gas within dilated and nondilated colon. The right colon and transverse colon are mildly dilated. The descending colon is not dilated. There is moderate contrast in the colon, visualized in the right colon and transverse colon and also in the descending colon. No pneumatosis or pneumoperitoneum. NG tube tip mid stomach.. There is slightly less gas in both small bowel and colon compared to the CT topogram from previous day. There is contrast in urinary bladder. Mild bilateral basilar atelectasis. Procedure Note Wesley Joe MD - 10/09/2024 CLINICAL INDICATION: evaluate bowel obstruction- 8 hour film. contrast given at 1700- 10/08 TECHNIQUE: XR GASTROGRAFFIN CHALLENGE COMPARISON: CT 10/08/2024, abdomen image 10/08/2024 FINDINGS: Moderate gas within dilated small bowel in the central abdomen and medialright abdomen. In the lateral right abdomen and lower pelvis there iscontrast within nondilated and borderline dilated small bowel. There ismoderate diffuse gas within dilated and nondilated colon. The right colonand transverse colon are mildly dilated. The descending colon is notdilated. There is moderate contrast in the colon, visualized in the rightcolon and transverse colon and also in the descending colon. Nopneumatosis or pneumoperitoneum. NG tube tip mid stomach.. There isslightly less gas in both small bowel and colon compared to the CTtopogram from previous day. There is contrast in urinary bladder. Mild bilateral basilar atelectasis. IMPRESSION: Contrast has progressed to the colon. CRITICAL RESULT: No. COMMUNICATION: Per this written report. Drafted by Wesley Joe MD on 10/09/2024 7:49 AM Final report signed by Wesley Joe MD on 10/09/2024 7:54 AM Wilda Carson MD IMG XR PROCEDURES Final Result * (ABNORMAL) POCT glucose meter (10/08/2024 11:59 PM EDT) Pathologist [facility] POCT Glucose 287(H) 74 - 99 mg/dL 10/09/2024 12:00 AM EDT [facility] Comment:Accuracy of [...] to the main labortory for testing. Comment 10/09/2024 12:00 AM EDT [facility] Conventional Mortgage Underwriter ID Flor Marks 10/09/2024 12:00 AM EDT [facility] Device ID [id number] 10/09/2024 12:00 AM EDT [facility] Specimen Type POC Capillary 10/09/2024 12:00 AM EDT [facility] Blood Capillary blood specimen / Unknown 10/08/2024 11:59 PM EDT 10/09/2024 12:00 AM EDT us Wilda Carson MD LAB POINT OF CARE TE ST DOCKED DEVICE UNSOLICITED RESULTS Final Result Performing Organization Address City/State/[facility] Co de Phone Number [facility] [address] [place] [address] * (ABNORMAL) POCT glucose meter (10/08/2024 9:01 PM EDT) Pathologist [facility] POCT Glucose 284(H) 74 - 99 mg/dL 10/08/2024 9:03 PM EDT [facility] Comment:Accuracy of [...] to the main labortory for testing. Comment 10/08/2024 9:03 PM EDT [facility] Conventional Mortgage Underwriter ID GabriellaIsma 025 9:03 PM EDT [facility] Device ID [id number] 10/08/2024 9:03 PM EDT [facility] Specimen Type POC Capillary 10/08/2024 9:03 PM EDT [facility] Blood Capillary blood specimen / Unknown 10/08/2024 9:01 PM EDT 10/08/2024 9:03 PM EDT us Wilda Carson MD LAB POINT OF CARE TE ST DOCKED DEVICE UNSOLICITED RESULTS Final Result Performing Organization Address City/[facility]/ZIP Co de Phone Number [facility] [address] [place] [address] * (ABNORMAL) POCT glucose meter (10/08/2024 5:08 PM EDT) POCT Glucose 202(H) 74 - 99 mg/dL 10/08/2024 5:10 PM EDT [facility] Comment:Accuracy of [...] to the main labortory for testing. Comment 10/08/2024 5:10 PM EDT [facility] Conventional Mortgage Underwriter ID Franchesca Herrera 5:10 PM EDT [facility] Device ID [id number] 10/08/2024 5:10 PM EDT [facility] Specimen Type POC Capillary 10/08/2024 5:10 PM EDT [facility] Blood Capillary blood specimen / Unknown 10/08/2024 5:08 PM EDT 10/08/2024 5:10 PM EDT us Wilda Carson MD LAB POINT OF CARE TE ST DOCKED DEVICE UNSOLICITED RESULTS Final Result [facility] [address] [place] [address] * (ABNORMAL) POCT glucose meter (10/08/2024 11:57 AM EDT) POCT Glucose 252(H) 74 - 99 mg/dL 10/08/2024 11:59 AM EDT [facility] Comment:Accuracy of [...] to the main labortory for testing. Comment 10/08/2024 11:59 AM EDT [facility] Conventional Mortgage Underwriter ID Phuong Glass 025 11:59 AM EDT [facility] Device ID [id number] 10/08/2024 11:59 AM EDT [facility] Specimen Type POC Capillary 10/08/2024 11:59 AM EDT [facility] Blood Capillary blood specimen / Unknown 10/08/2024 11:57 AM EDT 10/08/2024 11:59 AM EDT Wilda Carson MD LAB POINT OF CARE TE ST DOCKED DEVICE UNSOLICITED RESULTS Final Result Performing Organization Address City/State/[facility] Co de Phone Number [facility] [address] [place] [address] * (ABNORMAL) POCT glucose meter (10/08/2024 7:55 AM EDT) POCT Glucose 248(H) 74 - 99 mg/dL 10/08/2024 7:57 AM EDT [facility] Comment:Accuracy of [...] to the main labortory for testing. Comment 10/08/2024 7:57 AM EDT [facility] Conventional Mortgage Underwriter ID Phuong Glass 025 7:57 AM EDT [facility] Device ID [id number] 10/08/2024 7:57 AM EDT [facility] Specimen Type POC Capillary 10/08/2024 7:57 AM EDT [facility] Blood Capillary blood specimen / Unknown 10/08/2024 7:55 AM EDT 10/08/2024 7:57 AM EDT us Wilda Carson MD LAB POINT OF CARE TE ST DOCKED DEVICE UNSOLICITED RESULTS Final Result [facility] [address] [place] [address] * (ABNORMAL) POCT glucose meter (10/08/2024 5:40 AM EDT) POCT Glucose 255(H) 74 - 99 mg/dL 10/08/2024 5:42 AM EDT [facility] Comment:Accuracy of a glucos e result obtained from a capillary whole blood specimen relies upon adequate, non-compromised capillary blood flow. If the capillary glucose result is not consistent with the patient's clinical signs and symptoms, glucose testing should be repeated with either an arterial or venous sample on the glucometer or sent to the main labortory for testing. Comment 10/08/2024 5:42 AM EDT [facility] Conventional Mortgage Underwriter ID Bj Canales 10/08/2024 5:42 AM EDT [facility] Device ID [id number] 10/08/2024 5:42 AM EDT [facility] Specimen Type POC Capillary 10/08/2024 5:42 AM EDT [facility] Blood Capillary blood specimen / Unknown 10/08/2024 5:40 AM EDT 10/08/2024 5:42 AM EDT Wilda Carson MD LAB POINT OF CARE TE ST DOCKED DEVICE UNSOLICITED RESULTS Final Result [facility] [address] [place] [address] * (ABNORMAL) Hemoglobin A1c (10/08/2024 4:59 AM EDT) Hemoglobin A1c 7.6(H) <5.7 % 10/08/2024 11:37 AM EDT [facility] Blood Venous blood specimen / Unknown Venipuncture / Unknown 10/08/2024 4:59 AM EDT 10/08/2024 5:01 AM EDT Narrative [facility] - 10/08/2024 11:37 AM EDT HA1C Interpretive Data: Diagnosis of Diabetes: Diabetic > or = 6.5% Pre-diabetic 5.7 to 6.4% Non-diabetic < or = 5.6% Glycemic Targets for Type I and Type II Diabetics: Non- Adults <7.0% Adults <6.0% Children and Adolescents <7.5% Source: [place] [employer]. Standards of medical care in diabetes,2017. Diabetes Care.2017:40 (suppl 1):S1-S135. us Wilda Carson MD LAB BLOOD ORDERABLES Final Res ult Performing Organization Address City/[facility] Co de Phone Number [facility] [address] [place] [address] * Phosphorus, Plasma (10/08/2024 4:59 AM EDT) Phosphorus, Plasma 3.8 2.5 - 4.5 mg/dL 10/08/2024 6:00 AM EDT [facility] Blood Venous blood specimen / Unknown Venipuncture / Unknown 10/08/2024 4:59 AM EDT 10/08/2024 5:16 AM EDT us Wilda Carson MD LAB BLOOD ORDERABLES Final Res ult Performing Organization Address [facility] [place] [address] * (ABNORMAL) Magnesium, Plasma (10/08/2024 4:59 AM EDT) Magnesium, Plasma 1.7(L) 1.9 - 2.4 mg/dL 10/08/2024 6:00 AM EDT [facility] Blood Venous blood specimen / Unknown Venipuncture / Unknown 10/08/2024 4:59 AM EDT 10/08/2024 5:16 AM EDT us Wilda Carson MD LAB BLOOD ORDERABLES Final Res ult Performing Organization Address [facility] [place] [address] * (ABNORMAL) CBC W/O Differential (10/08/2024 4:59 AM EDT) [facility] Signature WBC Count 9.53 3.70 - 10.30 10*3/uL LAB HEMATOLOGY METHOD 10/08/2024 5:04 AM EDT [facility] RBC Count 4.33(L) 4.60 - 6.10 10*6/uL LAB HEMATOLOGY METHOD 10/08/2024 5:04 AM EDT [facility] HGB 14.1 13.7 - 17.5 g/dL LAB HEMATOLOGY METHOD 10/08/2024 5:04 AM EDT [facility] HCT 39.4(L) 40.0 - 51.0 % LAB HEMATOLOGY METHOD 10/08/2024 5:04 AM EDT [facility] Platelet Count 279 155 - 369 10*3/uL LAB HEMATOLOGY METHOD 10/08/2024 5:04 AM EDT [facility] MCV 91 79 - 98 fL LAB HEMATOLOGY METHOD 10/08/2024 5:04 AM EDT [facility] MCH 32.6(H) 26.0 - 32.0 pg LAB HEMATOLOGY METHOD 10/08/2024 5:04 AM EDT [facility] MCHC 35.8(H) 30.7 - 35.5 g/dL LAB HEMATOLOGY METHOD 10/08/2024 5:04 AM EDT [facility] RDW 13.3 11.5 - 14.5 % LAB HEMATOLOGY METHOD 10/08/2024 5:04 AM EDT [facility] MPV 8.9 8.8 - 12.5 fL LAB HEMATOLOGY METHOD 10/08/2024 5:04 AM EDT [facility] nRBC 0.0 <=0.0 per 100 WBCs LAB HEMATOLOGY METHOD 10/08/2024 5:04 AM EDT [facility] Blood Venous blood specimen / Unknown Venipuncture / Unknown 10/08/2024 4:59 AM EDT 10/08/2024 5:01 AM EDT us Wilda Carson MD LAB BLOOD ORDERABLES Final Res ult [facility] [address] [place] [address] * (ABNORMAL) Basic Metabolic Panel, Plasma (10/08/2024 4:59 AM EDT) Glucose, Plasma 206(H) 74 - 99 mg/dL 10/08/2024 6:00 AM EDT [facility] BUN, Plasma 39(H) 8 - 23 mg/dL 10/08/2024 6:00 AM EDT [facility] Creatinine, Plasma 1.26(H) 0.70 - 1.20 mg/dL 10/08/2024 6:00 AM EDT [facility] BUN/Creatinine Ratio 31 10/08/2024 6:00 AM EDT [facility] Sodium, Plasma 125(L) 136 - 145 mmol/L 10/08/2024 6:00 AM EDT [facility] Potassium, Plasma 3.2(L) 3.6 - 4.9 mmol/L 10/08/2024 6:00 AM EDT [facility] Comment:Hemolyzed, result ma y be falsely increased. Chloride, Plasma 98 97 - 107 mmol/L 10/08/2024 6:00 AM EDT [facility] CO2, Plasma 14(L) 22 - 29 mmol/L 10/08/2024 6:00 AM EDT [facility] Anion Gap 13 6 - 16 mmol/L 10/08/2024 6:00 AM EDT [facility] Total Calcium, Plasma 7.6(L) 8.9 - 10.2 mg/dL 10/08/2024 6:00 AM EDT [facility] eGFRcr 65.3 mL/min/1.7 3m*2 10/08/2024 6:00 AM EDT [facility] Comment:Reported eGFRcr in m L/min/1.73m2 is based the CKD-EPI 2020 equation that does not use a race coefficient. Blood Venous blood specimen / Unknown Venipuncture / Unknown 10/08/2024 4:59 AM EDT 10/08/2024 5:16 AM EDT us Wilda Carson MD LAB BLOOD ORDERABLES Final Res ult [facility] [address] [place] [address] * CT Abdomen Pelvis w IV Contrast (10/08/2024 4:44 AM EDT) Anatomical Region Laterality Modality Abdomen, Pelvis Computed Tomogra phy Impressions 10/08/2024 9:53 AM EDT Diffusely dilated small bowel to the level of the terminal ileum proximal to the ileocolic anastomosis. Additionally, the large bowel is diffusely dilated. These findings could represent a partial small bowel obstruction or diffuse ileus. There is new mesenteric stranding adjacent to the ileocolic anastomosis in the right abdomen which could represent inflammatory change from partial small bowel obstruction, however peritoneal carcinomatosis is also a possibility. Recommend correlation with CEA level. Herniated dilated loop of small bowel in the ventral incisional hernia without evidence of obstruction. Interval decreased size of the known metastatic liver lesions since 07/23/2024. CRITICAL RESULT: No. COMMUNICATION: Per this written report. By electronically signing this report, I, the attending physician, attest that I have personally reviewed the images/data for the above examination(s) and agree with the final edited report. Drafted by Jama Geronimo MD on 10/08/2024 8:14 AM Final report signed by Domenica Grimaldo DO on 10/08/2024 9:53 AM Narrative 10/08/2024 9:53 AM EDT CLINICAL INDICATION: bowel obstruction TECHNIQUE: Multiple axial CT images were obtained from lung bases through pubic symphysis following administration of IV contrast, Omnipaque 300, 100 mL. Delayed images of abdomen and kidneys were also obtained. Reformatted images in the coronal and sagittal planes were generated from the axial data set to facilitate diagnostic accuracy. Total DLP (Dose-Length Product): 1598.64 mGy.cm. Please note: The reported value represents the total of one or more individual components during the CT acquisition on this date and at this time, and as such, the same value may appear in more than one CT report depending on the interpreting/reporting physicians. COMPARISON: CT abdomen and pelvis 07/23/2024 FINDINGS: Lower Chest: Bibasilar atelectasis, otherwise, no suspicious findings. Bilateral gynecomastia. Solid Abdominal Organs: Hepatic steatosis. There is some widening of the hepatic fissures and volume redistribution, indicative of parenchymal disease. Previously described hepatic metastatic lesions appear decreased from prior and are best seen on the 3 minute delayed phase. For example, right hepatic dome lesion measures 2.9 cm, previously 4 cm (series 6 image 10), segment 5/6 lesion measures 2.7 cm, previously 3.5 cm, and lesion in segment 4A/8 is difficult to measure but appears decreased (series 6 image 18). Cholelithiasis without evidence of acute cholecystitis. No biliary ductal dilatation. There is a 1.7 cm hypoattenuating lesion in the lower renal pole the right kidney, probably a cyst. No suspicious renal mass lesions. No hydronephrosis. Unremarkable spleen. 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 No suspicious adrenal findings. GI Tract/Mesentery/Peritoneum: Nasogastric tube tip in the proximal stomach. Prior right colectomy with ileocolic anastomosis in the right abdomen. Adjacent to the anastomosis there is new mesenteric stranding without discrete nodularity (series 3 image 172). The small bowel is diffusely dilated to the level of the terminal ileum just before the ileocolic anastomosis. The large bowel is also diffusely dilated. No pneumatosis or pneumoperitoneum. Pelvic Viscera: No suspicious pelvic mass lesions. Lymph Nodes/Vasculature: No lymphadenopathy by CT size criteria. The aortoiliac vasculature is patent and normal in caliber. Free Fluid: No ascites Musculoskeletal and Body Wall: Interval widening of incisional hernia within the supraumbilical epigastric midline containing a dilated loop of small bowel without evidence of downstream decompression. No aggressive osseous lesion. Chronic degenerative changes noted. Procedure Note Domenica Grimaldo, DO - 10/08/2024 CLINICAL INDICATION: bowel obstruction TECHNIQUE: Multiple axial CT images were obtained from lung bases through pubicsymphysis following administration of IV contrast, Omnipaque 300, 100 mL.Delayed images of abdomen and kidneys were also obtained. Reformattedimages in the coronal and sagittal planes were generated from the axialdata set to facilitate diagnostic accuracy. Total DLP (Dose-Length Product): 1598.64 mGy.cm. Please note: The reportedvalue represents the total of one or more individual components during theCT acquisition on this date and at this time, and as such, the same valuemay appear in more than one CT report depending on theinterpreting/reporting physicians. COMPARISON: CT abdomen and pelvis 07/23/2024 FINDINGS: Lower Chest: Bibasilar atelectasis, otherwise, no suspicious findings.Bilateral gynecomastia. Solid Abdominal Organs: Hepatic steatosis. There is some widening of thehepatic fissures and volume redistribution, indicative of parenchymaldisease. Previously described hepatic metastatic lesions appear decreasedfrom prior and are best seen on the 3 minute delayed phase. For example,right hepatic dome lesion measures 2.9 cm, previously 4 cm (series 6 image10), segment 5/6 lesion measures 2.7 cm, previously 3.5 cm, and lesion insegment 4A/8 is difficult to measure but appears decreased (series 6 image18). Cholelithiasis without evidence of acute cholecystitis. No biliary ductaldilatation. There is a 1.7 cm hypoattenuating lesion in the lower renalpole the right kidney, probably a cyst. No suspicious renal mass lesions.No hydronephrosis. Unremarkable spleen. 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 Nosuspicious adrenal findings. GI Tract/Mesentery/Peritoneum: Nasogastric tube tip in the proximalstomach. Prior right colectomy with ileocolic anastomosis in the rightabdomen. Adjacent to the anastomosis there is new mesenteric strandingwithout discrete nodularity (series 3 image 172). The small bowel isdiffusely dilated to the level of the terminal ileum just before theileocolic anastomosis. The large bowel is also diffusely dilated. Nopneumatosis or pneumoperitoneum. Pelvic Viscera: No suspicious pelvic mass lesions. Lymph Nodes/Vasculature: No lymphadenopathy by CT size criteria. Theaortoiliac vasculature is patent and normal in caliber. Free Fluid: No ascites Musculoskeletal and Body Wall: Interval widening of incisional herniawithin the supraumbilical epigastric midline containing a dilated loop ofsmall bowel without evidence of downstream decompression. No aggressiveosseous lesion. Chronic degenerative changes noted. IMPRESSION: Diffusely dilated small bowel to the level of the terminal ileum proximalto the ileocolic anastomosis. Additionally, the large bowel is diffuselydilated. These findings could represent a partial small bowel obstructionor diffuse ileus. There is new mesenteric stranding adjacent to the ileocolic anastomosis inthe right abdomen which could represent inflammatory change from partialsmall bowel obstruction, however peritoneal carcinomatosis is also apossibility. Recommend correlation with CEA level. Herniated dilated loop of small bowel in the ventral incisional herniawithout evidence of obstruction. Interval decreased size of the known metastatic liver lesions since07/23/2024. CRITICAL RESULT: No. COMMUNICATION: Per this written report. By electronically signing this report, I, the attending physician, attestthat I have personally reviewed the images/data for the aboveexamination(s) and agree with the final edited report. Drafted by Jama Geronimo MD on 10/08/2024 8:14 AM Final report signed by Domenica Grimaldo DO on 10/08/2024 9:53 AM us Mickie Jefferson MD IMG CT PROCEDURES Final Resul t * XR Abdomen 1 View (10/08/2024 2:17 AM EDT) Anatomical Region Laterality Modality Body Digital Radiogra phy Impressions 10/08/2024 3:39 AM EDT Enteric tube terminates over the mid stomach. Left chest wall Port-A-Cath may terminate within the azygos vein. [Or tortuous or ectatic SVC?] Partially visualized dilated loops of bowel. CRITICAL RESULT: No. COMMUNICATION: Per this written report. Preliminary report signed by Fei Amaral MD on 10/08/2024 3:34 AM By electronically signing this report, I, the attending physician, attest that I have personally reviewed the images/data for the above examination(s) and agree with the final edited report. Drafted by Fei Amaral MD on 10/08/2024 3:31 AM Final report signed by Valentin Mattson MD on 10/08/2024 3:39 AM Narrative 10/08/2024 3:39 AM EDT CLINICAL INDICATION: NG tube placement TECHNIQUE: XR ABDOMEN 1 VIEW COMPARISON: Chest radiograph 07/31/2024. FINDINGS: Left chest wall Port-A-Cath in place terminating on the brachiocephalic confluence and possibly within the azygos vein. Enteric tube terminates over the mid stomach. No consolidation or large effusion. Partially visualized dilated loops of bowel. Indistinct left lung base or costophrenic angle possibly atelectasis but nonspecific. Procedure Note Valentin Mattson MD - 10/08/2024 CLINICAL INDICATION: NG tube placement TECHNIQUE: XR ABDOMEN 1 VIEW COMPARISON: Chest radiograph 07/31/2024. FINDINGS: Left chest wall Port-A-Cath in place terminating on the brachiocephalicconfluence and possibly within the azygos vein. Enteric tube terminatesover the mid stomach. No consolidation or large effusion. Partiallyvisualized dilated loops of bowel. Indistinct left lung base orcostophrenic angle possibly atelectasis but nonspecific. IMPRESSION: Enteric tube terminates over the mid stomach. Left chest wall Port-A-Cath may terminate within the azygos vein. [Ortortuous or ectatic SVC?] Partially visualized dilated loops of bowel. CRITICAL RESULT: No. COMMUNICATION: Per this written report. Preliminary report signed by Fei Amaral MD on 10/08/2024 3:34 AM By electronically signing this report, I, the attending physician, attestthat I have personally reviewed the images/data for the aboveexamination(s) and agree with the final edited report. Drafted by Fei Amaral MD on 10/08/2024 3:31 AM Final report signed by Valentin Mattson MD on 10/08/2024 3:39 AM us Mickie Jefferson MD IMG XR PROCEDURES Final Resul t * EKG now - STAT (adult) (10/08/2024 12:55 AM EDT) EKG DIAGNOSIS CLASS Abnormal MUSE ECG Ventricular Rate 85 BPM MUSE ECG Atrial Rate 85 BPM MUSE ECG NJ Interval 168 ms MUSE ECG QRSD Interval 162 ms MUSE ECG QT Interval 442 ms MUSE ECG QTC Interval 525 ms MUSE ECG P [place] 16 degrees MUSE ECG R [place] -32 degrees MUSE ECG T Wave [place] 47 degrees MUSE ECG Diagnosis Normal sinus rhythm MUSE ECG Diagnosis Left axis deviation in the presence of LAFB MUSE ECG Diagnosis Right bundle branch block Bifascicular block MUSE ECG Diagnosis Minimal voltage criteria for LVH, may be normal variant ( R in aVL ) MUSE ECG Diagnosis Abnormal ECG MUSE ECG Diagnosis MUSE ECG Diagnosis Confirmed by Adarsh Pichardo ([id number]) on 10/08/2024 10:50:58 AM MUSE ECG 10/08/2024 12:5 5 AM EDT 10/08/2024 10:50 AM EDT us Mickie Jefferson MD ECG ORDERABLES Final Result Performing Organization Address City/[facility]/ZIP Co de Phone Number MUSE ECG * ED HIV 1/2 Antibody/Antigen Screen w/Reflex to HIV 1/2 Differentiation (10/08/2024 12:55 AM EDT) [facility] HIV 1 & 2 Antibody/Antigen Screen Non Reactive Non Reactive 10/08/2024 2:00 AM EDT [facility] Comment:Screening for HIV 1 & 2 antibodies, and P24 antigen is NONREACTIVE. No confirmatory testing is required. Blood Venous blood specimen / Unknown Venipuncture / Unknown 10/08/2024 12:55 AM EDT 10/08/2024 1:11 AM EDT us Mickie Jefferson MD LAB BLOOD ORDERABLES Final Re sult Performing Organization Address [facility] Co de Phone Number [facility] [address] [place] [address] * Hepatitis C Antibody - ED (10/08/2024 12:55 AM EDT) [facility] Hepatitis C Antibody Negative Negative 10/08/2024 2:16 AM EDT [facility] Blood Venous blood specimen / Unknown Venipuncture / Unknown 10/08/2024 12:55 AM EDT 10/08/2024 1:11 AM EDT us Mickie Jefferson MD LAB BLOOD ORDERABLES Final Re sult Performing Organization Address City/[facility]/ZIP Co de Phone Number [facility] [address] [place] [address] * Type and screen (10/08/2024 12:55 AM EDT) ABO/Rh A Positive 10/08/2024 12:50 AM EDT BLOOD BANK Antibody Screen Negative 10/08/2024 12:50 AM EDT BLOOD BANK Specimen Expiration 10/11/2024 23:59 10/08/2024 12:50 AM EDT BLOOD BANK Blood Venous blood specimen / Unknown Venipuncture / Unknown 10/08/2024 12:55 AM EDT 10/08/2024 1:05 AM EDT us Mickie Jefferson MD LAB BLOOD BANK TEST ORDERABLE S Final Result Performing Organization Address City/[facility]/ZIP Co de Phone Number BLOOD [address] * (ABNORMAL) PT-INR (10/08/2024 12:55 AM EDT) Prothrombin Time 14.7(H) 12.0 - 14.3 sec 10/08/2024 1:27 AM EDT [facility] INR 1.2(H) 0.9 - 1.1 10/08/2024 1:27 AM EDT [facility] Blood Venous blood specimen / Unknown Venipuncture / Unknown 10/08/2024 12:55 AM EDT 10/08/2024 1:05 AM EDT Narrative [facility] - 10/08/2024 1:27 AM EDT OPTIMAL INR RANGES FOR PATIENT ON ORAL ANTICOAGULANT THERAPY Prevention of venous thromboembolism INR 2.0 to 3.0 In patients with heart disease: Atrial fibrillation INR 2.0 to 3.0 Valvular heart disease INR 2.0 to 3.0 Tissue heart valves INR 2.0 to 3.0 Mechanical prosthetic valves INR 2.5 to 3.5 Prevention of recurrent IL INR 2.5 to 3.5 us Mickie Jefferson MD LAB BLOOD ORDERABLES Final Re sult [facility] [address] [place] [address] * (ABNORMAL) CBC w/diff (10/08/2024 12:55 AM EDT) WBC Count 11.32(H) 3.70 - 10.30 10*3/uL LAB HEMATOLOGY METHOD 10/08/2024 1:09 AM EDT [facility] RBC Count 4.20(L) 4.60 - 6.10 10*6/uL LAB HEMATOLOGY METHOD 10/08/2024 1:09 AM EDT [facility] HGB 13.9 13.7 - 17.5 g/dL LAB HEMATOLOGY METHOD 10/08/2024 1:09 AM EDT [facility] HCT 38.0(L) 40.0 - 51.0 % LAB HEMATOLOGY METHOD 10/08/2024 1:09 AM EDT [facility] Platelet Count 293 155 - 369 10*3/uL LAB HEMATOLOGY METHOD 10/08/2024 1:09 AM EDT [facility] MCV 91 79 - 98 fL LAB HEMATOLOGY METHOD 10/08/2024 1:09 AM EDT [facility] MCH 33.1(H) 26.0 - 32.0 pg LAB HEMATOLOGY METHOD 10/08/2024 1:09 AM EDT [facility] MCHC 36.6(H) 30.7 - 35.5 g/dL LAB HEMATOLOGY METHOD 10/08/2024 1:09 AM EDT [facility] RDW 13.5 11.5 - 14.5 % LAB HEMATOLOGY METHOD 10/08/2024 1:09 AM EDT [facility] MPV 10.0 8.8 - 12.5 fL LAB HEMATOLOGY METHOD 10/08/2024 1:09 AM EDT [facility] nRBC 0.0 <=0.0 per 100 WBCs LAB HEMATOLOGY METHOD 10/08/2024 1:09 AM EDT [facility] Differential Type Automated LAB HEMATOLOGY METHOD 10/08/2024 1:09 AM EDT [facility] Neutrophils % 70 % LAB HEMATOLOGY METHOD 10/08/2024 1:09 AM EDT [facility] Lymphocytes % 10 % LAB HEMATOLOGY METHOD 10/08/2024 1:09 AM EDT [facility] Monocytes % 18 % LAB HEMATOLOGY METHOD 10/08/2024 1:09 AM EDT [facility] Eosinophils % 0 % LAB HEMATOLOGY METHOD 10/08/2024 1:09 AM EDT [facility] Basophils % 1 % LAB HEMATOLOGY METHOD 10/08/2024 1:09 AM EDT [facility] Immature Granulocytes % 1 % LAB HEMATOLOGY METHOD 10/08/2024 1:09 AM EDT [facility] Neutrophils Absolute 7.97(H) 1.60 - 6.10 10*3/uL LAB HEMATOLOGY METHOD 10/08/2024 1:09 AM EDT [facility] Lymphocytes Absolute 1.17(L) 1.20 - 3.90 10*3/uL LAB HEMATOLOGY METHOD 10/08/2024 1:09 AM EDT [facility] Monocytes Absolute 2.01(H) 0.30 - 0.90 10*3/uL LAB HEMATOLOGY METHOD 10/08/2024 1:09 AM EDT [facility] Eosinophils Absolute 0.02 0.00 - 0.50 10*3/uL LAB HEMATOLOGY METHOD 10/08/2024 1:09 AM EDT [facility] Basophils Absolute 0.07 0.00 - 0.10 10*3/uL LAB HEMATOLOGY METHOD 10/08/2024 1:09 AM EDT [facility] Immature Granulocytes Absolute 0.08(H) 0.00 - 0.06 10*3/uL LAB HEMATOLOGY METHOD 10/08/2024 1:09 AM EDT [facility] Blood Venous blood specimen / Unknown Venipuncture / Unknown 10/08/2024 12:55 AM EDT 10/08/2024 1:05 AM EDT Narrative [facility] - 10/08/2024 1:09 AM EDT Therapeutic decision making should be based on absolute values, rather than percentages. us Mickie Jefferson MD LAB BLOOD ORDERABLES Final Re sult [facility] [address] [place] [address] * Lactic acid, venous (10/08/2024 12:55 AM EDT) Lactate, Venous, Whole Blood 1.1 0.5 - 2.2 mmol/L LAB HEMATOLOGY METHOD 10/08/2024 1:10 AM EDT [facility] Blood Venous blood specimen / Unknown Venipuncture / Unknown 10/08/2024 12:55 AM EDT 10/08/2024 1:07 AM EDT us Mickie Jefferson MD LAB BLOOD ORDERABLES Final Re sult Performing Organization Address [facility]/ZIP Co de Phone Number [facility] [address] [place] [address] * (ABNORMAL) Phosphorus (10/08/2024 12:55 AM EDT) Phosphorus, Plasma 4.6(H) 2.5 - 4.5 mg/dL 10/08/2024 1:37 AM EDT [facility] Blood Venous blood specimen / Unknown Venipuncture / Unknown 10/08/2024 12:55 AM EDT 10/08/2024 1:05 AM EDT us Mickei Jefferson MD LAB BLOOD ORDERABLES Final Re sult Performing Organization Address [facility] [place] [address] * Magnesium (10/08/2024 12:55 AM EDT) Magnesium, Plasma 1.9 1.9 - 2.4 mg/dL 10/08/2024 1:37 AM EDT [facility] Blood Venous blood specimen / Unknown Venipuncture / Unknown 10/08/2024 12:55 AM EDT 10/08/2024 1:05 AM EDT us Mickie Jefferson MD LAB BLOOD ORDERABLES Final Re sult Performing Organization Address [facility] [place] [address] * (ABNORMAL) CMP (10/08/2024 12:55 AM EDT) Glucose, Plasma 235(H) 74 - 99 mg/dL 10/08/2024 1:37 AM EDT [facility] BUN, Plasma 44(H) 8 - 23 mg/dL 10/08/2024 1:37 AM EDT [facility] Creatinine, Plasma 1.52(H) 0.70 - 1.20 mg/dL 10/08/2024 1:37 AM EDT [facility] BUN/Creatinine Ratio 29 10/08/2024 1:37 AM EDT [facility] Sodium, Plasma 125(L) 136 - 145 mmol/L 10/08/2024 1:37 AM EDT [facility] Potassium, Plasma 3.8 3.6 - 4.9 mmol/L 10/08/2024 1:37 AM EDT [facility] Chloride, Plasma 93(L) 97 - 107 mmol/L 10/08/2024 1:37 AM EDT [facility] CO2, Plasma 14(L) 22 - 29 mmol/L 10/08/2024 1:37 AM EDT [facility] Anion Gap 18(H) 6 - 16 mmol/L 10/08/2024 1:37 AM EDT [facility] Total Calcium, Plasma 9.2 8.9 - 10.2 mg/dL 10/08/2024 1:37 AM EDT [facility] Total Protein 7.3 6.3 - 7.9 g/dL 10/08/2024 1:37 AM EDT [facility] Albumin, Plasma 3.9 3.5 - 5.2 g/dL 10/08/2024 1:37 AM EDT [facility] AST, Plasma 24 10 - 50 U/L 10/08/2024 1:37 AM EDT [facility] Comment:Hemolyzed, result ma y be falsely increased. ALT, Plasma 12 10 - 50 U/L 10/08/2024 1:37 AM EDT [facility] Alkaline Phosphatase, Plasma 89 40 - 115 U/L 10/08/2024 1:37 AM EDT [facility] Total Bilirubin, Plasma 0.8 0.2 - 1.1 mg/dL 10/08/2024 1:37 AM EDT [facility] eGFRcr 52.1 mL/min/1.7 3m*2 10/08/2024 1:37 AM EDT [facility] Comment:Reported eGFRcr in m L/min/1.73m2 is based the CKD-EPI 2020 equation that does not use a race coefficient. Blood Venous blood specimen / Unknown Venipuncture / Unknown 10/08/2024 12:55 AM EDT 10/08/2024 1:05 AM EDT us Mickie Jefferson MD LAB BLOOD ORDERABLES Final Re sult [facility] [address] [place] [address] documented in this encounter Visit Diagnoses Diagnosis Bowel obstruction (CMS/HCC)- Primary Unspecified intestinal obstruction Small bowel obstruction (CMS/HCC) Unspecified intestinal obstruction Abdominal pain, generalized documented in this encounter Admitting Diagnoses Diagnosis Bowel obstruction (CMS/HCC) Unspecified intestinal obstruction documented in this encounter Administered Medications Inactive Administered Medications - up to 3 most recent administrations Medication Order MAR Action Action Date Dose Rate Site dextrose 10 % (D10W) bolus 125 mL 125 mL, Intravenous, Every 15 min PRN, Starting on Zabrina 10/08/24 at 1231, Until Sat10/09/24 at 1738, Administer over 15 Minutes, Routine, low blood sugar BG 51-89 mg/dL dextrose 10 % (D10W) bolus 250 mL 250 mL, Intravenous, Every 15 min PRN, Starting on Zabrina 10/08/24 at 1231, Until Sat10/09/24 at 1738, Administer over 15 Minutes, Routine, PRN low blood sugar BG =/<50 mg/dL dextrose 5 % and lactated Ringer's infusion 50 mL/hr, Intravenous, Continuous, Starting on Zabrina 10/08/24 at 0435, Until Sat10/09/24 at 1738, Routine Rate/Dose Change 10/09/2024 9:48 AM EDT 75 mL/hr 75 mL/hr New Bag 10/08/2024 3:14 PM EDT 100 mL/hr 100 mL/hr New Bag 10/08/2024 4:53 AM EDT 100 mL/hr 100 mL/hr diatrizoate meglumine-sodium (Gastrografin) 66-10 % solution 120 mL 120 mL, Oral, Once in imaging, 1 dose, Starting on Sat10/08/24 at 1641, Until Sat10/08/24 at 1650, Routine, Imaging Protocol Orders Given 10/08/2024 4:50 PM EDT 120 mL glucagon (human recombinant) injection 1 mg 1 mg, Intramuscular, Every 15 min PRN, Starting on Sat10/08/24 at 1231, Until Sat10/09/24 at 1738, Routine, low blood sugar per Hypoglycemia Prevention and Treatment protocol glucose (Glutose) 40 % oral gel 15-30 grams of glucose 15-30 grams of glucose, Sublingual, Every 15 min PRN, Starting on Sat10/08/24 at 1231, Until Sat10/09/24 at 1738, Routine, low blood sugar, per Hypoglycemia Prevention and Treatment protocol heparin (porcine) injection 5,000 Units 5,000 Units, Subcutaneous, Every 8 hours scheduled, First dose on Sat10/08/24 at 0430, Until Discontinued, Routine Given 10/09/2024 5:53 AM EDT 5,000 Units Right Lower Abdomen Given 10/08/2024 9:38 PM EDT 5,000 Units R ight Lower Abdomen Given 10/08/2024 3:14 PM EDT 5,000 Units L eft Lower Abdomen insulin glargine-yfgn 100 UNIT/ML injection 10 Units 10 Units, Subcutaneous, Daily, First dose on Sat10/09/24 at 0900, Until Discontinued, Routine Given 10/09/2024 9:50 AM EDT 10 Units Right Upper Arm (Back) insulin glargine-yfgn 100 UNIT/ML injection 25 Units 25 Units, Subcutaneous, Nightly, First dose (after last modification) on Sat10/08/24 at 2100, Until Discontinued, Routine Given 10/08/2024 9:38 PM EDT 25 Units Right Upper Arm (Back) insulin regular (HumuLIN R,NovoLIN R) 100 units/mL injection - Correction - Resistant Dose 0-10 Units, Subcutaneous, Every 6 hours scheduled, First dose on Sat10/09/24 at 0655, Until Discontinued, Routine insulin regular (HumuLIN R,NovoLIN R) 100 units/mL injection - Correction - Standard Dose 0-5 Units, Subcutaneous, Every 6 hours scheduled, First dose on Sat10/08/24 at 0600, Until Discontinued, Routine Given 10/09/2024 5:52 AM EDT 3 Units Right Upper Arm (Back) Given 10/09/2024 12:31 AM EDT 3 Units L eft Upper Arm (Back) Given 10/08/2024 5:55 PM EDT 2 Units Le ft Upper Arm (Back) iohexol (OMNIPaque) 300 MG/ML injection 100 mL 100 mL, Intravenous, Once in imaging, 1 dose, Starting on Zabrina 10/08/24 at 0434, Until Sat10/08/24 at 0435, Routine, Imaging Protocol Orders Given 10/08/2024 4:35 AM EDT 100 mL magnesium sulfate IVPB 2 g 2 g, Intravenous, Once, 1 dose, On Zabrina 10/08/24 at 0605, at 25 mL/hr, Administer over 2 Hours, Routine New Bag 10/08/2024 6:05 AM EDT 2 g 25 mL/hr ondansetron (Zofran) 4 MG/5ML solution 4 mg 4 mg, Oral, Every 6 hours PRN, Starting on Zabrina 10/08/24 at 0425, Until Sat10/09/24 at 1738, Routine, nausea, vomiting ondansetron (Zofran) injection 4 mg 4 mg, Intravenous, Every 6 hours PRN, Starting on Zabrina 10/08/24 at 0425, Until Sat10/09/24 at 1738, Routine, vomiting, nausea ondansetron ODT (Zofran-ODT) disintegrating tablet 4 mg 4 mg, Oral, Every 6 hours PRN, Starting on Zabrina 10/08/24 at 0425, Until Sat10/09/24 at 1738, Routine, nausea, vomiting pantoprazole (Protonix) injection 40 mg 40 mg, Intravenous, Daily, First dose on Zabrina 10/08/24 at 0900, Until Discontinued, Routine Given 10/09/2024 9:50 AM EDT 40 mg Given 10/08/2024 8:34 AM EDT 40 mg phenol (Chloraseptic) 1.4 % mouth/throat spray 1 spray 1 spray, Mouth/Throat, Every 2 hour PRN, sore throat, Instruct patient to spit out after 15 seconds., Starting on Zabrina 10/08/24 at 1004 piperacillin-tazobactam (Zosyn) 4.5 g in sodium chloride 0.9% 100 mL IVPB (vial adapter required) 4.5 g, Intravenous, Every 6 hours, First dose on Zabrina 10/08/24 at 0645, Until Discontinued, Routine New Bag 10/09/2024 9:49 AM EDT 4.5 g 36. 7 mL/hr New Bag 10/09/2024 4:27 AM EDT 4.5 g 36.7 mL/hr New Bag 10/08/2024 9:38 PM EDT 4.5 g 36.7 mL/hr potassium chloride IVPB 10 mEq 10 mEq, Intravenous, Every 1 hour, 6 doses, First dose on Sat10/09/24 at 0630, Last dose on Sat10/09/24 at 1130, RoutineIndications:Hypokalemia New Bag 10/09/2024 10:30 AM EDT 10 mEq 100 mL/hr New Bag 10/09/2024 9:30 AM EDT 10 mEq 100 mL/hr New Bag 10/09/2024 8:40 AM EDT 10 mEq 100 mL/hr prochlorperazine (Compazine) injection 10 mg 10 mg, Intravenous, Every 6 hours PRN, Starting on Sat10/08/24 at 0642, Until Sat10/09/24 at 1738, Routine, nausea, vomiting sodium chloride 0.9 % flush 10 mL 10 mL, Intravenous, Every 12 hours, First dose on Sat10/08/24 at 0430, Until Discontinued, Routine Given 10/09/2024 4:27 AM EDT 10 mL Given 10/08/2024 3:46 PM EDT 10 mL Given 10/08/2024 5:26 AM EDT 10 mL sodium chloride 0.9 % flush 10 mL 10 mL, Intravenous, As needed, Starting on Sat10/08/24 at 0425, Until Sat10/09/24 at 1738, Routine, line care documented in this encounter Active and Recently Administered Medications Times are shown in EDT. Scheduled Medication Order 10/07/2024 10/08/2024 10/09/2024 diatrizoate meglumine-sodium (Gastrografin) 66-10 % solution 120 mL (COMPLETED) 120 mL, Oral, Once in imaging, 1 dose, Starting on Sat10/08/24 at 1641, Until Sat10/08/24 at 1650, Routine, Imaging Protocol Orders 1650 (Given - Provider: Franchesca Herrera RN) heparin (porcine) injection 5,000 Units 5,000 Units, Subcutaneous, Every 8 hours scheduled, First dose on Sat10/08/24 at 0430, Until Discontinued, Routine 0534 (Not Given - Provider: Rachael Slade RN - Reason: Hold for condition: must add comment - Comment: Hold thisdose per Dhiraj DUGGAN)1514 (Given - Provider: Franchesca Herrera RN)2138 (Given - Provider: Jimbo Leavitt) 0553 (Given - Provider: Jimbo Leavitt)1400 (Canceled Entry - Provider: Automatic Discharge Provider - Comment: Automatically canceled at discontinue of medication order) insulin glargine-yfgn 100 UNIT/ML injection 10 Units 10 Units, Subcutaneous, Daily, First dose on Sat10/09/24 at 0900, Until Discontinued, Routine 0950 (Given - Provid er: Michell Campa RN) insulin glargine-yfgn 100 UNIT/ML injection 25 Units 25 Units, Subcutaneous, Nightly, First dose (after last modification) on Sat10/08/24 at 2100, Until Discontinued, Routine 2138 (Given - Provider: Jimbo Leavitt) insulin regular (HumuLIN R,NovoLIN R) 100 units/mL injection - Correction - Resistant Dose 0-10 Units, Subcutaneous, Every 6 hours scheduled, First dose on Sat10/09/24 at 0655, Until Discontinued, Routine 0740 (Not Given - Provider: Michell Campa RN - Reason: Hold for condition: must add comment - Comment: patient given previously ordered dose)1200 (Canceled Entry - Provider: Automatic Discharge Provider - Comment: Automatically canceled at discontinue of medication order) insulin regular (HumuLIN R,NovoLIN R) 100 units/mL injection - Correction - Standard Dose (CANCELED) 0-5 Units, Subcutaneous, Every 6 hours scheduled, First dose on Sat10/08/24 at 0600, Until Discontinued, Routine 0559 (Given - Provider: Rachael Slade, RN)1214 (Given - Provider: Franchesca Herrera RN)1755 (Given - Provider: Franchesca Herrera RN) 0031 (Given - Provider: Jimbo Leavitt)0552 (Given - Provider: Jimbo Leaivtt) iohexol (OMNIPaque) 300 MG/ML injection 100 mL (COMPLETED) 100 mL, Intravenous, Once in imaging, 1 dose, Starting on Zabrina 10/08/24 at 0434, Until Zabrina 10/08/24 at 0435, Routine, Imaging Protocol Orders 0435 (Given - Provider: Nando Perdomo) magnesium sulfate IVPB 2 g (COMPLETED) 2 g, Intravenous, Once, 1 dose, On Zabrina 10/08/24 at 0605, at 25 mL/hr, Administer over 2 Hours, Routine 0605 (New Bag - Provider: Rachael Slade RN)0824 (Stopped - Provider: Franchesca Herrera RN) pantoprazole (Protonix) injection 40 mg 40 mg, Intravenous, Daily, First dose on Zabrina 10/08/24 at 0900, Until Discontinued, Routine 0834 (Given - Provider: Franchesca Herrera RN) 0950 (Given - Provider: Michell Campa, JAN) piperacillin-tazobactam (Zosyn) 4.5 g in sodium chloride 0.9% 100 mL IVPB (vial adapter required) (CANCELED) 4.5 g, Intravenous, Every 6 hours, First dose on Zabrina 10/08/24 at 0645, Until Discontinued, Routine 0834 (New Bag - Provider: Franchesca Herrera RN)1126 (Stopped - Provider: Franchesca Herrera RN)1514 (New Bag - Provider: Franchesca Herrera RN)1900 (Stopped - Provider: Jimbo Leavitt)2138 (New Bag - Provider: Jimbo Leavitt) 0042 (Stopped - Provider: Jimbo Leavitt)0427 (New Bag - Provider: Jimbo Leavitt)0741 (Stopped - Provider: Michell Campa, JAN)0949 (New Bag - Provider: Michell Campa, JAN)1514 (Stopped - Provider: Michell Campa, JAN) potassium chloride IVPB 10 mEq 10 mEq, Intravenous, Every 1 hour, 6 doses, First dose on Sat10/09/24 at 0630, Last dose on Sat10/09/24 at 1130, Routine 0648 (New Bag - Prov ider: Jimbo Leavitt)0729 (Stopped - Provider: Michell Campa, JAN)0745 (New Bag - Provider: Michell Campa RN)0829 (Stopped - Provider: Michell Campa RN)0840 (New Bag - Provider: Michell Campa RN)0929 (Stopped - Provider: Michell Campa RN)0930 (New Bag - Provider: Michell Campa RN)1029 (Stopped - Provider: Michell Campa RN)1030 (New Bag - Provider: Michell Campa RN)1130 (Due)1230 (Stopped - Provider: Michell Campa RN)1514 (Stopped - Provider: Michell Campa RN) sodium chloride 0.9 % flush 10 mL(Linked Group 1) 10 mL, Intravenous, Every 12 hours, First dose on Zabrina 10/08/24 at 0430, Until Discontinued, Routine 0526 (Given - Provider: Rachael Slade RN)1546 (Given - Provider: Franchesca Herrera RN) 0427 (Given - Provider: Jimbo Leavitt)1630 (Canceled Entry - Provider: Automatic Discharge Provider - Comment: Automatically canceled at discontinue of medication order) Continuous Medication Order 10/07/2024 10/08/2024 10/09/2024 dextrose 5 % and lactated Ringer's infusion 50 mL/hr, Intravenous, Continuous, Starting on Zabrina 10/08/24 at 0435, Until Sat10/09/24 at 1738, Routine 0453 (New Bag - Provider: Rachael Slade RN)1514 (New Bag - Provider: Franchesca Herrera RN) 0948 (Rate/Dose Change - Provider: Michell Campa RN)1513 (Stopped - Provider: Michell Campa RN) PRN Medication Order 10/07/2024 10/08/2024 10/09/2024 dextrose 10 % (D10W) bolus 125 mL(Linked Group 2) 125 mL, Intravenous, Every 15 min PRN, Starting on Zabrina 10/08/24 at 1231, Until Sat10/09/24 at 1738, Administer over 15 Minutes, Routine, low blood sugar BG 51-89 mg/dL dextrose 10 % (D10W) bolus 250 mL(Linked Group 2) 250 mL, Intravenous, Every 15 min PRN, Starting on Zabrina 10/08/25 at 1231, Until Sat10/09/24 at 1738, Administer over 15 Minutes, Routine, PRN low blood sugar BG =/<50 mg/dL glucagon (human recombinant) injection 1 mg(Linked Group 2) 1 mg, Intramuscular, Every 15 min PRN, Starting on Sat10/08/24 at 1231, Until Sat10/09/24 at 1738, Routine, low blood sugar per Hypoglycemia Prevention and Treatment protocol glucose (Glutose) 40 % oral gel 15-30 grams of glucose(Linked Group 2) 15-30 grams of glucose, Sublingual, Every 15 min PRN, Starting on Sat10/08/24 at 1231, Until Sat10/09/24 at 1738, Routine, low blood sugar, per Hypoglycemia Prevention and Treatment protocol ondansetron (Zofran) 4 MG/5ML solution 4 mg(Linked Group 3) 4 mg, Oral, Every 6 hours PRN, Starting on Sat10/08/24 at 0425, Until Sat10/09/24 at 1738, Routine, nausea, vomiting ondansetron (Zofran) injection 4 mg(Linked Group 3) 4 mg, Intravenous, Every 6 hours PRN, Starting on Sat10/08/24 at 0425, Until Sat10/09/24 at 1738, Routine, vomiting, nausea ondansetron ODT (Zofran-ODT) disintegrating tablet 4 mg(Linked Group 3) 4 mg, Oral, Every 6 hours PRN, Starting on Sat10/08/24 at 0425, Until Sat10/09/24 at 1738, Routine, nausea, vomiting phenol (Chloraseptic) 1.4 % mouth/throat spray 1 spray 1 spray, Mouth/Throat, Every 2 hour PRN, sore throat, Instruct patient to spit out after 15 seconds., Starting on Sat10/08/24 at 1004 prochlorperazine (Compazine) injection 10 mg 10 mg, Intravenous, Every 6 hours PRN, Starting on Sat10/08/24 at 0642, Until Sat10/09/24 at 1738, Routine, nausea, vomiting sodium chloride 0.9 % flush 10 mL(Linked Group 1) 10 mL, Intravenous, As needed, Starting on Sat10/08/24 at 0425, Until Sat10/09/24 at 1738, Routine, line care Linked Groups Order Group 1: Insert peripheral IV (CANCELED) Once, On Sat10/08/24 at 0426, For 1 occurrence And Saline lock IV (CANCELED) Once, On Sat10/08/24 at 0426, For 1 occurrence And sodium chloride 0.9 % flush 10 mLJump to med 10 mL, Intravenous, Every 12 hours, First dose on Sat10/08/24 at 0430, Until Discontinued, Routine And sodium chloride 0.9 % flush 10 mLJump to med 10 mL, Intravenous, As needed, Starting on Sat10/08/24 at 0425, Until Sat10/09/24 at 1738, Routine, line care Group 2: glucose (Glutose) 40 % oral gel 15-30 grams of glucoseJump to med 15-30 grams of glucose, Sublingual, Every 15 min PRN, Starting on Sat10/08/24 at 1231, Until Sat10/09/24 at 1738, Routine, low blood sugar, per Hypoglycemia Prevention and Treatment protocol Or dextrose 10 % (D10W) bolus 125 mLJump to med 125 mL, Intravenous, Every 15 min PRN, Starting on Sat10/08/24 at 1231, Until Sat10/09/24 at 1738, Administer over 15 Minutes, Routine, low blood sugar BG 51-89 mg/dL Or dextrose 10 % (D10W) bolus 250 mLJump to med 250 mL, Intravenous, Every 15 min PRN, Starting on Sat10/08/24 at 1231, Until Sat10/09/24 at 1738, Administer over 15 Minutes, Routine, PRN low blood sugar BG =/<50 mg/dL Or glucagon (human recombinant) injection 1 mgJump to med 1 mg, Intramuscular, Every 15 min PRN, Starting on Sat10/08/24 at 1231, Until Sat10/09/24 at 1738, Routine, low blood sugar per Hypoglycemia Prevention and Treatment protocol Group 3: ondansetron ODT (Zofran-ODT) disintegrating tablet 4 mgJump to med 4 mg, Oral, Every 6 hours PRN, Starting on Sat10/08/24 at 0425, Until Sat10/09/24 at 1738, Routine, nausea, vomiting Or ondansetron (Zofran) injection 4 mgJump to med 4 mg, Intravenous, Every 6 hours PRN, Starting on Zabrina 10/08/24 at 0425, Until Sat10/09/24 at 1738, Routine, vomiting, nausea Or ondansetron (Zofran) 4 MG/5ML solution 4 mgJump to med 4 mg, Oral, Every 6 hours PRN, Starting on Zabrina 10/08/24 at 0425, Until Sat10/09/24 at 1738, Routine, nausea, vomiting documented in this encounter Additional Health Concerns Assessment Noted Time A fall risk assessment has been complete d for the patient 07/23/2024 8:54 AM EDT A Body Mass Index follow-up plan has been documented for the patient 10/09/2024 3:15 PM EDT documented as of this encounter Care Teams [employer] Relationship Specialty Start Date End Date Tayo Jones MD [address] [phone] PCP - General 07/14/24 documented as of this encounter
--- OUTSIDE RECORDS SUMMARY | 2024-11-17 05:00 | XMS_ITS | Continuity of Care Document ---
Author Organization [address] [place] [address] [address] [place] [address] Phone Care Team Providers Care Sizing Sprayer Name Role Phone Vania Etienne NP Unavailable [...] Diagnoses Date Provider Providers Copied on Encounter [address] [place] [address], [address] [facility] 300, [place], [place], [id number], tel:[phone] [facility] ear care exam (chief complaint) Impacted cerumen, bilateral Tremaine-Hard elder Vania. [address] [facility], [address], [place], [address], [place]. Referring Provider: Tayo Jones. [address] [place] [address], [address] [facility] 300, [place], [place], [address], tel:[phone] [facility] Nail dystrophyType 2 diabetes mellitus with diabetic peripheral angiopathy without gangreneLong term (current) use of insulinOnychog ryphosis 5 [place]. [address] [place] [address], [address] [facility] 300, [place], [place], [address], [place] tel:[phone] [facility] Diabetic eye exam (chief complaint) Ocular hypertension, bilateralType 2 diabetes mellitus without complicationsC ombined forms of age-related cataract, bilateral 5 Joy Vides. , [place]. Referring Provider: Tayo Jones. [address] [place] [address], [address] [place] [address] 300, [place], [place], [address], [place] tel:[phone] [facility] No Information 5 Rahul Villatoro. , [place]. [address] [place] [address], [address] [place] [address] 300, [place], [place], [address], [place] tel:[phone] [facility] Type 2 diabetes mellitus with diabetic peripheral angiopathy without gangreneLong term (current) use of oral hypoglycemic drugsNail dystrophyOnych ogryphosis 5 [place], [place]. SBSQ NF CARE LOW MDM [address] [place] [address], [address] [place], [place] [address]te [address], [place], [place], [address], [place] tel:[phone] [facility] Acquired absence of other left toe(s)Type 2 diabetes w diabetic peripheral angiopath w/o gangreneNail dystrophyOnych ogryphosis 4 [place], [place]. SBSQ NF CARE SF MDM [address] [place] [address], [address] [place] [address], [place], [place], [address], [place] tel:[phone] [facility] Acquired absence of other left toe(s)Tinea unguiumType 2 diabetes w diabetic peripheral angiopath w/o gangreneNail dystrophy 4 Jacob Sol. [address] [facility], [address], [place], [address], [place]. [facility], [address] [place], [place] [address]te [address], [place], [place], [address], [place] tel:[phone] [facility] Acquired absence of other left toe(s)Nail dystrophyTinea unguiumType 2 diabetes w diabetic peripheral angiopath w/o gangrene [address], [address], [place], [address], [place]. Referring Provider: Tayo Jones. [facility], [address] [place], [place] [address]te [address], [place], [place], [address], tel:[phone] [place] [address] Cataract (chief complaint) Combined forms of age-related cataract, bilateralType 2 diabetes mellitus without complicationsO cular hypertension, bilateral 4 [place], [place]. Referring Provider: Tayo Jones. [address] [place] [address], [address] [place] [address], [place], [place], [id number], tel:[phone] [place] [address] No Information 4 [place], [place]. [facility], [address] [place], [place] [address]te [facility], [place], [place], [address], [place] tel:[phone] [place] [address] Acquired absence of other left toe(s)Tinea unguiumNail dystrophyType 2 diabetes w diabetic peripheral angiopath w/o gangrene 4 Jacob Sims [address] [facility], [address], [place], [address], [place]. Referring Provider: Tayo Jones. [address] [place] [address], [address] [place], [place] [address]te [address], [place], [place], [address], [place] tel:[phone] [place] [address] Acquired absence of other left toe(s)Tinea unguiumNail dystrophyType 2 diabetes w diabetic peripheral angiopath w/o gangrene [address], [address], [place], [address], [place]. [address] [place] [address], [address] [place], [place] [address]te [address], [place], [place], [address], [place] tel:[phone] [place] [address] No Information 3 Andres [address]orne. [address], [address], [place], [place], [address], [place]. tel:[phone] Referring Provider: Tayo Jones. [address] [place] [address], [address] [place], [place] [address]te [address], [place], [place], [address], [place] tel:[phone] [facility] Nail dystrophyTinea unguiumType 2 diabetes w diabetic peripheral angiopath w/o gangreneAcquir ed absence of other left toe(s) 3 Jacob Sol. [address] [facility], [address], [place], [address], [place]. Referring Provider: Tayo Jones. [address] [place] [address], [address] [place], [place] [address]te [address], [place], [place], [address], [place] tel:[phone] [facility] Encounter for dental examination and cleaning without abnormal findings 3 Ivett Ye. , [place]. tel:[phone] Referring Provider: Tayo Jones. [address] [place] [address], [address] [place], [place] [address]te [address], [place], [address], [place] tel:[phone] [facility] Diabetic eye exam (chief complaint) Type 2 diabetes mellitus without complicationsC ombined forms of age-related cataract, bilateral 3 Peewee Villasenor. [address] [facility], [address], [place], [address], [place]. Referring Provider: Tayo Jones. [address] [place] [address], [address] [place], [place] [address]te [address], [place], [place], [address], [place] tel:[phone] [facility] Acquired absence of other left toe(s)Tinea unguiumType 2 diabetes w diabetic peripheral angiopath w/o gangrene 3 Jacob Sol. [address] [facility], [address], [place], [address], [place]. Referring Provider: Tayo Jones. [address] [place] [address], [address] [place], [place] [address]te [address], [place], [place], [address], [place] tel:[phone] [facility] Encounter for dental examination and cleaning without abnormal findings 3 [place], [place]. tel:[phone] Referring Provider: Tayo Jones. [facility], [address] [place], [place] [address]te [address], [place], [place], [address], [place] tel:[phone] [facility] Acquired absence of other left toe(s)Tinea unguiumType 2 diabetes w diabetic peripheral angiopath w/o gangrene 2 Jacob Sims [address] [facility], [address], [place], [address], [place]. Referring Provider: Tayo Jones. [facility], [address] [place] [address] [address], [place], [place], [address], [place] tel:[phone] [facility] Acquired absence of other left toe(s)Tinea unguiumType 2 diabetes w diabetic peripheral angiopath w/o gangreneNail dystrophy 2 [address] [place] [address], [address], [place], [address], [place]. Referring Provider: Tayo Jones. [facility], [address] [place] [address] [address], [place], [place], [address], [place] tel:[phone] [facility] Encounter for dental examination and cleaning without abnormal findings 2 [place], [place]. Referring Provider: Tayo Jones. [facility], [address] [place], [place] [address]te [address], [place], [place], [address], [place] tel:[phone] [facility] Type 2 diabetes w diabetic peripheral angiopath w/o gangreneTinea unguiumAcquire d absence of other left toe(s) 2 [place], [place]. Referring Provider: Tayo Jones. [facility], [address] [place], [place] [address]te [address], [place], [place], [address], [place] tel:[phone] [facility] Tinea unguiumType 2 diabetes w diabetic peripheral angiopath w/o gangreneAcquir ed absence of other left toe(s) 2 Jacob Sims [address] [facility], [address], [place], [address], [place]. Referring Provider: Tayo Jones. [address] [place] [address], [address] [facility] 300, [place], [place], [id number], tel:[phone] [facility] Encounter for dental exam and cleaning w/o abnormal findings 2 Mike Garrett. [address] [facility], [address], [place], [place], [address], [place]. tel:[phone] Referring Provider: Tayo Jones. [address] [place] [address], [address] [facility] 300, [place], [place], [address], tel:[phone] [facility] Diabetic eye exam (chief complaint) Combined forms of age-related cataract, bilateralType 2 diabetes mellitus without complications 2 Peewee Villasenor. [address] [facility], [address], [place], [address], . Referring Provider: Tayo Jones. [address] [place] [address], [address] [facility] [address], [place], [place], [address], tel:[phone] [facility] No Information 2 Peewee Villasenor. [address] [facility], [address], [place], [address], . Family History Family Member Type Diagnosis Age At Onset No Information Payers Payer name Insurance type Covered constitution party ID Authoriza tion(s) Medicaid [facility] [id number] Social History Type Description Quantity Date Captured Comments Alcohol Use Details Unknown Caffeine Use Details Unknown Tobacco Use Status No Information Smoking Status No Information Sex Male Chief Complaint And Reason For Visit From encounter dated '11/17/2024 09:00'. ear care exam (chief complaint) Reason For Referral Reason For Referral No Information Plan Of Treatment Date Type Action Status Patient Education Earwax Blockage: Care I nstructions [...] Instruction Additional Infor johana [facility] if pt, family, and/or facility wish to pursue. Follow up in 6-9 months or sooner if needed. Related to Impacted cerumen, bilateral All of the documente d thickened nails (which includes those nails 2 mm or more in thickness, and possible mycotic component to the nails) were debrided in both length and thickness using both a nail nipper and an electric rotary graphite grinder in an atraumatic fashion as needed ; this was performed in an attempt to prevent pain and reduce risk of infection. Alcohol applied to the digits afterwards. PT tolerated procedure well. Related to Onychogryphosis This is a chronic st able problem, Will reassess and follow up in 2-3 months Related to jail (current) use of insulin This is a [...] a nail nipper and an electric rotary graphite grinder in an atraumatic fashion; this was performed in an attempt to prevent pain and reduce risk of infection. Alcohol applied to the digits afterwards. Related to Onychogryphosis All documented dystr ophic nails were reduced in length as needed to prevent pain and other symptoms. Related to Nail dystrophy No change to treatme nt plan, Will continue to monitor. 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
--- OUTSIDE RECORDS SUMMARY | 2024-11-19 07:09 | XMS_ITS | Encounter Summary ---
Author Organization [facility] Address [address] [id number] Care Team Providers Care Pesticide Applicator Name Role Phone Tayo Jones MD Primary Care Provider [phone] Reason for Referral * Imaging (Routine) - Closed Specialty Diagnoses / Procedures Referred By Samia pagan Referred To Contact Radiology Diagnoses Metastatic colon cancer to liver (CMS/HCC) Procedures CT Abdomen Pelvis w IV Contrast Farhad Castillo MD [address] [address] Phone: tel: fax: Referral ID Status Reason Start Date Expiration Date Visits Re quested Visits Authorized [id number] Closed 08/03/2024 02/02/2026 1 1 * Imaging (Routine) - Closed Specialty Diagnoses / Procedures Referred By Samia pagan Referred To Contact Radiology Diagnoses Metastatic colon cancer to liver (CMS/HCC) Procedures CT Chest w IV Contrast Farhad Castillo MD [address] [address] Phone: tel: fax: Referral ID Status Reason Start Date Expiration Date Visits Re quested Visits Authorized [id number] Closed 08/03/2024 02/02/2026 1 1 Reason for Visit * Imaging (Routine) - Closed Specialty Diagnoses / Procedures Referred By Samia t Referred To Contact Radiology Diagnoses Metastatic colon cancer to liver (CMS/HCC) Procedures CT Abdomen Pelvis w IV Contrast Farhad Castillo MD [address] [place] [phone] Phone: tel: fax: Referral ID Status Reason Start Date Expiration Date Visits Re quested Visits Authorized [id number] Closed 08/03/2024 02/02/2026 1 1 Encounter Details Date Type Department Care Team (Latest Contact Info) Description 11/19/2024 7:09 AM EDT - 11/19/2024 11:59 PM EDT Hospital Encounter [facility] [address] [place] [address] Metastatic colon cancer to liver [...] any time in the past 12 m [facility], were you homeless or [...] PM EDT Appointment Cardiac Imaging [address] [place] [address] 12/03/2024 3:30 PM EDT Appointment Cardiac Imaging [address] [place] [address] 12/20/2024 11:00 AM EDT Appointment [facility] [address] [place] [address] documented as of this encounter Procedures Procedure [...] Total DLP (Dose-Length Product): 3353.28 mGy.cm (accession [id number]), 3353.28 mGy.cm (accession [id number]) Please note: The reported value represents the [...] Total DLP (Dose-Length Product): 3353.28 mGy.cm (accession [id number]),3353.28 mGy.cm (accession [id number]) Please note: The reported valuerepresents the total [...] cm. . Other previously noted lesion within bgqsccl4K/8 remains difficult to clearly delineate. Unremarkable gallbladder.Stable [...] Total DLP (Dose-Length Product): 3353.28 mGy.cm (accession [id number]), 3353.28 mGy.cm (accession [id number]) Please note: The reported value represents the [...] Total DLP (Dose-Length Product): 3353.28 mGy.cm (accession [id number]),3353.28 mGy.cm (accession [id number]) Please note: The reported valuerepresents the total [...] cm. . Other previously noted lesion within bweauus9L/8 remains difficult to clearly delineate. Unremarkable gallbladder.Stable [...] documented as of this encounter Care Teams Pesticide Applicator Relationship Specialty Start Date End Date Tayo Jones MD [address] [place] [address] PCP - General 07/14/24 documented as of this encounter
--- OUTSIDE RECORDS SUMMARY | 2024-11-19 11:15 | XMS_ITS | Encounter Summary ---
Author Organization [facility] Address [address] [id number] Care Team Providers Care Healthcare Liaison Name Role Phone Tayo Jones MD Primary Care Provider [phone] Reason for Referral * Consultation (Routine) - Authorized Specialty Diagnoses / Procedures Referred By Samia pagan Referred To Contact General Surgery Diagnoses Metastatic colon cancer to liver (CMS/HCC) Farhad Castillo MD [address] [address] Phone: tel: fax: Heidi March MD [address] [place] [address] Phone: tel: fax: Referral ID Status Reason Start Date Expiration Date Visits Requested Visits Authorized [id number] Authorized Specialty Services Required 11/19/2024 05/21/2026 1 1 Scheduling Instructions Hernia repair possible combo surgery w/ Dr. Castillo * Imaging (Routine) - Authorized Specialty Diagnoses / Procedures Referred By Samia pagan Referred To Contact Cardiology Diagnoses High risk surgery, pre-operative cardiovascular examination Shortness of breath on exertion Procedures NM Myocardial Perfusion Stress Test Farhad Castillo MD [address] [address] Phone: tel: fax: Referral ID Status Reason Start Date Expiration Date V isits Requested Visits Authorized [id number] Authorized 11/19/2024 05/21/2026 1 1 * Imaging (Routine) - Pending Review Specialty Diagnoses / Procedures Referred By Samia pagan Referred To Contact Radiology Diagnoses Metastatic colon cancer to liver (CMS/HCC) Procedures MR Abdomen w and wo IV Contrast Farhad Castillo MD [address] [address] Phone: tel: fax: Referral ID Status Reason Start Date Expiration Date V isits Requested Visits Authorized [id number] Pending Review 11/19/2024 05/21/2026 1 1 Reason for Visit * Reason Comments Routine Follow-up Encounter Details Date Type Department Care Team (Latest Contact Info) Description 11/19/2024 11:15 AM EDT Office Visit [facility] Multidisciplinary Oncology Clinic [address] [place] [phone] Farhad Castillo MD [address] [address] Metastatic colon cancer to liver [...] money to buy more. Never true 10/10/19 Ran Out of Food in the Last [...] you homeless or living in a senior living (including now)? No 10/09/2024 Utilities Answer Date [...] Never 11/19/2024 10:43 AM EDT Jr Amaro Q2: How many drinks containing alcohol do [...] Score 0 11/19/2024 10:49 AM EDT Jr mAaro documented as of this encounter Plan of Treatment Upcoming Encounters Date Type Department Care Team (Late st Contact Info) Description 12/03/2024 2:00 PM EDT Appointment Cardiac Imaging [address] [place] [address] 12/03/2024 3:30 PM EDT Appointment Cardiac Imaging [address] [place] [address] 12/20/2024 11:00 AM EDT Appointment [facility] [address] [place] [address] Scheduled Orders Name Type Priority Associated Diagnoses Orde r Schedule MR Abdomen w and wo IV Contrast Imaging Routine Metastatic colon cancer to liver (CMS/HCC) Expected: 12/20/2024, Expires: 05/23/2026 NM Myocardial Perfusion Stress Test Cardiac Nuclear Medicine Routine High risk surgery, pre-operative cardiovascular examination Shortness of breath on exertion Expected: 12/03/2024, Expires: 05/23/2026 Scheduled Referrals Name Type Priority Associated Diagnoses Order Schedule Ambulatory referral to Endocrine Surgery ([facility]) Outpatient Referral Routine Metastatic colon cancer to liver (CMS/HCC) Expected: 12/03/2024, Expires: 05/23/2026 documented as of this encounter Results * Prealbumin, Plasma (11/19/2024 11:26 AM EDT) Prealbumin, Plasma 25.7 20.0 - 41.0 mg/dL 11/19/2024 12:19 PM EDT [facility] Blood Venous blood specimen / Unknown Venipuncture / Unknown 11/19/2024 11:26 AM EDT 11/19/2024 11:47 AM EDT us Farhad Castillo MD LAB BLOOD ORDERABLES Final Result [facility] [address] [place] [address] * (ABNORMAL) Hemoglobin A1c (11/19/2024 11:26 AM EDT) Hemoglobin A1c 7.3(H) <5.7 % 11/19/2024 12:49 PM EDT [facility] Blood Venous blood specimen / Unknown Venipuncture / Unknown 11/19/2024 11:26 AM EDT 11/19/2024 11:47 AM EDT Narrative [facility] - 11/19/2024 12:49 PM EDT HA1C Interpretive Data: Diagnosis of Diabetes: Diabetic > or = 6.5% Pre-diabetic 5.7 to 6.4% Non-diabetic < or = 5.6% Glycemic Targets for Type I and Type II Diabetics: Non- Adults <7.0% Adults <6.0% Children and Adolescents <7.5% Source: [employer]. Standards of medical care in diabetes,2017. Diabetes Care.2017:40 (suppl 1):S1-S135. Farhad Castillo MD LAB BLOOD ORDERABLES Final Result Performing Organization Address [facility] Co de Phone Number [facility] [address] [place] [address] * (ABNORMAL) CEA, Serum (11/19/2024 11:26 AM EDT) Pathologist [facility] CEA, Serum 7.7(H) <4.0 ng/mL 11/19/2024 12:31 PM EDT [facility] Blood Venous blood specimen / Unknown Venipuncture / Unknown 11/19/2024 11:26 AM EDT 11/19/2024 11:47 AM EDT Narrative [facility] - 11/19/2024 12:31 PM EDT Normal range for smokers: < 5.5 ng/ml Normal range for non-smokers: <=4.0 ng/ml Performed by [employer] electrochemiluminescent immunoassay. Results obtained with different test methods or kits cannot be used interchangeably. Farhad Castillo MD LAB BLOOD ORDERABLES Final Result Performing Organization Address [facility] de Phone Number [facility] [address] [place] [address] * (ABNORMAL) CBC W/O Differential (11/19/2024 11:26 AM EDT) [facility] WBC Count 8.37 3.70 - 10.30 10*3/uL LAB HEMATOLOGY METHOD 11/19/2024 11:55 AM EDT [facility] RBC Count 3.98(L) 4.60 - 6.10 10*6/uL LAB HEMATOLOGY METHOD 11/19/2024 11:55 AM EDT [facility] HGB 12.1(L) 13.7 - 17.5 g/dL LAB HEMATOLOGY METHOD 11/19/2024 11:55 AM EDT [facility] HCT 36.4(L) 40.0 - 51.0 % LAB HEMATOLOGY METHOD 11/19/2024 11:55 AM EDT [facility] Platelet Count 341 155 - 369 10*3/uL LAB HEMATOLOGY METHOD 11/19/2024 11:55 AM EDT [facility] MCV 92 79 - 98 fL LAB HEMATOLOGY METHOD 11/19/2024 11:55 AM EDT [facility] MCH 30.4 26.0 - 32.0 pg LAB HEMATOLOGY METHOD 11/19/2024 11:55 AM EDT [facility] MCHC 33.2 30.7 - 35.5 g/dL LAB HEMATOLOGY METHOD 11/19/2024 11:55 AM EDT [facility] RDW 13.9 11.5 - 14.5 % LAB HEMATOLOGY METHOD 11/19/2024 11:55 AM EDT [facility] MPV 8.7(L) 8.8 - 12.5 fL LAB HEMATOLOGY METHOD 11/19/2024 11:55 AM EDT [facility] nRBC 0.0 <=0.0 per 100 WBCs LAB HEMATOLOGY METHOD 11/19/2024 11:55 AM EDT [facility] Blood Venous blood specimen / Unknown Venipuncture / Unknown 11/19/2024 11:26 AM EDT 11/19/2024 11:47 AM EDT Farhad Castillo MD LAB BLOOD ORDERABLES Final Result [facility] [address] [place] [address] * (ABNORMAL) Comprehensive Metabolic Panel, Plasma (11/19/2024 11:26 AM EDT) Glucose, Plasma 174(H) 74 - 99 mg/dL 11/19/2024 12:19 PM EDT [facility] BUN, Plasma 20 8 - 23 mg/dL 11/19/2024 12:19 PM EDT [facility] Creatinine, Plasma 1.06 0.70 - 1.20 mg/dL 11/19/2024 12:19 PM EDT [facility] BUN/Creatinine Ratio 19 11/19/2024 12:19 PM EDT [facility] Sodium, Plasma 132(L) 136 - 145 mmol/L 11/19/2024 12:19 PM EDT [facility] Potassium, Plasma 4.7 3.6 - 4.9 mmol/L 11/19/2024 12:19 PM EDT [facility] Chloride, Plasma 101 97 - 107 mmol/L 11/19/2024 12:19 PM EDT [facility] CO2, Plasma 18(L) 22 - 29 mmol/L 11/19/2024 12:19 PM EDT [facility] Anion Gap 13 6 - 16 mmol/L 11/19/2024 12:19 PM EDT [facility] Total Calcium, Plasma 9.3 8.9 - 10.2 mg/dL 11/19/2024 12:19 PM EDT [facility] Total Protein 6.9 6.3 - 7.9 g/dL 11/19/2024 12:19 PM EDT [facility] Albumin, Plasma 3.9 3.5 - 5.2 g/dL 11/19/2024 12:19 PM EDT [facility] AST, Plasma 30 10 - 50 U/L 11/19/2024 12:19 PM EDT [facility] ALT, Plasma 20 10 - 50 U/L 11/19/2024 12:19 PM EDT [facility] Alkaline Phosphatase, Plasma 90 40 - 115 U/L 11/19/2024 12:19 PM EDT [facility] Total Bilirubin, Plasma 0.4 0.2 - 1.1 mg/dL 11/19/2024 12:19 PM EDT [facility] eGFRcr 80.3 mL/min/1.7 3m*2 11/19/2024 12:19 PM EDT [facility] Comment:Reported eGFRcr in m L/min/1.73m2 is based the CKD-EPI 2020 equation that does not use a race coefficient. Blood Venous blood specimen / Unknown Venipuncture / Unknown 11/19/2024 11:26 AM EDT 11/19/2024 11:47 AM EDT us Farhad Castillo MD LAB BLOOD ORDERABLES Final Result [facility] [address] [place] [address] documented in this encounter Visit Diagnoses Diagnosis Metastatic colon cancer to liver (CMS/HCC)- Primary High risk surgery, pre-operative cardiovascular examination Pre-operative cardiovascular examination Shortness of breath on exertion Shortness of breath documented in this encounter Additional Health Concerns Assessment Noted Time A fall risk assessment has been complete d for the patient 07/23/2024 8:54 AM EDT A Body Mass Index follow-up plan has been documented for the patient 10/09/2024 3:15 PM EDT documented as of this encounter Care Teams Healthcare Liaison Relationship Specialty Start Date End Date Tayo Jnoes MD [address] [place] [address] PCP - General 07/14/24 documented as of this encounter
--- OUTSIDE RECORDS SUMMARY | 2024-11-24 09:13 | XMS_ITS | Encounter Summary ---
Author Organization Healthcare Address [address] [place] [address] Care Team Providers Care Petroleum Refinery Operator Name Role Phone Tayo Jones MD Primary Care Provider [phone] Encounter Details Date Type Department Care Team (Late st Contact Info) Description 05/06/2024 Orders Only External Location [address] [place] [address] Provider, External Social History Tobacco Use Types [...] PM EDT Appointment Cardiac Imaging [address] [place] [address] 12/03/2024 3:30 PM EDT Appointment Cardiac Imaging [address] [place] [address] 12/20/2024 11:00 AM EDT Appointment [facility] [address] [place] [address] documented as of this encounter Procedures Procedure [...] on filedocumented in this encounter Care Teams Petroleum Refinery Operator Relationship Specialty Start Date End Date Tayo Jones MD [address] [place] [address] PCP - General 07/14/24 documented as of this encounter
--- OUTSIDE RECORDS SUMMARY | 2024-11-24 09:13 | XMS_ITS | Encounter Summary ---
Author Organization Healthcare Address [address] [place] [address] Care Team Providers Care Warp Drawer Name Role Phone Tayo Jones MD Primary Care Provider [phone] Encounter Details Date Type Department Care Team (Late st Contact Info) Description 02/18/2023 Orders Only External Location [address] [place] [address] Provider, External Social History Tobacco Use Types [...] PM EDT Appointment Cardiac Imaging [address] [place] [address] 12/03/2024 3:30 PM EDT Appointment Cardiac Imaging [address] [place] [address] 12/20/2024 11:00 AM EDT Appointment [facility] [address] [place] [address] documented as of this encounter Procedures Procedure [...] on filedocumented in this encounter Care Teams Warp Drawer Relationship Specialty Start Date End Date Tayo Jones MD [address] [phone] PCP - General 07/14/24 documented as of this encounter
--- OUTSIDE RECORDS SUMMARY | 2024-11-24 09:13 | XMS_ITS | Encounter Summary ---
Author Organization Healthcare Address [address] [place] [address] Care Team Providers Care Performance Improvement Specialist Name Role Phone Tayo Jones MD Primary Care Provider [phone] Encounter Details Date Type Department Care Team (Late st Contact Info) Description 05/31/2023 Orders Only External Location [address] [place] [address] Provider, External Social History Tobacco Use Types [...] PM EDT Appointment Cardiac Imaging [address] [place] [address] 12/03/2024 3:30 PM EDT Appointment Cardiac Imaging [address] [place] [address] 12/20/2024 11:00 AM EDT Appointment [facility] [address] [place] [address] documented as of this encounter Procedures Procedure [...] on filedocumented in this encounter Care Teams Performance Improvement Specialist Relationship Specialty Start Date End Date Tayo Jones MD [address] [place] [address] PCP - General 07/14/24 documented as of this encounter
--- OUTSIDE RECORDS SUMMARY | 2024-11-24 09:13 | XMS_ITS | Encounter Summary ---
Author Organization [facility] Address [address] [place] [address] Care Team Providers Care Supervisor Accounting Clerks Name Role Phone Tayo Jones MD Primary Care Provider [phone] Encounter Details Date Type Department Care Team (Late st Contact Info) Description 01/15/2023 Orders Only External Location [address] [place] [address] Sue Pope MD [address] [place], [place] [phone] Social History Tobacco Use Types Packs/Day Years [...] PM EDT Appointment Cardiac Imaging [address] [place] [address] 12/03/2024 3:30 PM EDT Appointment Cardiac Imaging [address] [place] [address] 12/20/2024 11:00 AM EDT Appointment [facility] [address] [place] [address] documented as of this encounter Procedures Procedure Name Priority Date/Time Associated Diagnosis Comments CT OUTSIDE IMAGES 01/15/2023 9:37 AM EDT documented in this encounter Results * CT OUTSIDE IMAGES (01/15/2023 9:37 AM EDT) Anatomical Region Laterality Modality Computed Tomogra phy 01/15/2023 9:3 7 AM EDT Sue Pope MD IMG CT PROCEDURES Final Result documented in this encounter Visit Diagnoses Not on filedocumented in this encounter Care Teams Supervisor Accounting Clerks Relationship Specialty Start Date End Date Tayo Jones MD [address] [place] [address] PCP - General 07/14/24 documented as of this encounter
--- OUTSIDE RECORDS SUMMARY | 2024-11-24 09:13 | XMS_ITS | Encounter Summary ---
Author Organization [facility] Address [address] [place] [address] Care Team Providers Care Pastry Finisher Name Role Phone Tayo Jones MD Primary Care Provider [phone] Encounter Details Date Type Department Care Team (Late Contact Info) Description 07/16/2024 Lab Requisition [facility] [address] [place] [address] Farhad Castillo MD [address] [address] Other acute appendicitis without perforation or gangrene [...] Department Care Team (Late Contact Info) Description 12/03/2024 2:00 PM EDT Appointment Cardiac Imaging [address] [place] [address] 12/03/2024 3:30 PM EDT Appointment Cardiac Imaging [address] [place] [address] 12/20/2024 11:00 AM EDT Appointment [facility] [address] [place] [address] documented as of this encounter Procedures Procedure Name Priority Date/Time Associated Diagnosis Comments SURGICAL PATHOLOGY CONSULT Routine 07/16/2024 1:13 PM EDT Other acute appendicitis without perforation or gangrene documented in this encounter Results * Surgical Pathology Consult (07/16/2024 1:13 PM EDT) Case Report Sugical Pathology Consult Case: [id number] Authorizing Provider: Farhad Castillo MD Collected: 07/16/2024 1313 Ordering Location: [facility] Received: 07/16/2024 1313 Pathologist: Constance Murphy MD Specimen: Colon, [id number] 07/17/2024 1:08 PM EDT [facility] Final Diagnosis RIGHT COLON AND TERMINAL ILEUM, RIGHT HEMICOLECTOMY ([id number]; 11/09/2022): - 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 - TUMOR BUDDING SCORE: HIGH (10 OR GREATER). - NO TUMOR SEEN IN TWENTY ONE LYMPH NODES (0/21). 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 07/17/2024 1:08 PM EDT [facility] Clinical Information K35.890 - Other acute appendicitis without perforation or gangrene [ICD-10-CM] 07/17/2024 1:08 PM EDT [facility] Gross Description A. [id number] Received along with a corresponding pathology report from [facility] are 29 slides labeled outside case: [id number] collected on 11/09/2022. 07/17/2024 1:08 PM EDT [facility] Note: A resident was involved in the service. I attest I examined the relevant preparations for the specimens and confirmed the diagnosis or interpretation. 07/17/2024 1:08 PM EDT [facility] Tissue Colon structure / Unknown 07/16/2024 1:13 PM EDT 07/16/2024 1:13 PM EDT us Farhad Castillo MD LAB PATHOLOGY ORDERABLES F inal Result [facility] [address] [place] [address] documented in this encounter Visit Diagnoses Diagnosis Other acute appendicitis without perforation or gangrene documented in this encounter Care Teams Pastry Finisher Relationship Specialty Start Date End Date Tayo Jones MD [address] [place] [address] PCP - General 07/14/24 documented as of this encounter
--- OUTSIDE RECORDS SUMMARY | 2024-11-24 09:13 | XMS_ITS | Encounter Summary ---
Author Organization [facility] Address [address] [place] [address] Care Team Providers Care Extra Hand Name Role Phone Tayo Jones MD Primary Care Provider [phone] Encounter Details Date Type Department Care Team [...] time in the past 12 m [facility], were you homeless or living in a fdc (including now)? No 10/09/2024 Utilities Answer Date [...] PM EDT Appointment Cardiac Imaging [address] [place] [address] 12/03/2024 3:30 PM EDT Appointment Cardiac Imaging [address] [place] [address] 12/20/2024 11:00 AM EDT Appointment [facility] [address] [place] [address] documented as of this encounter Visit Diagnoses Not on filedocumented in this encounter Additional Health Concerns Assessment Noted Time A fall risk assessment has been complete d for the patient 07/23/2024 8:54 AM EDT A Body Mass Index follow-up plan has been documented for the patient 10/09/2024 3:15 PM EDT documented as of this encounter Care Teams Extra Hand Relationship Specialty Start Date End Date Tayo Jones MD [address] [phone] PCP - General 07/14/24 documented as of this encounter
--- OUTSIDE RECORDS SUMMARY | 2024-11-24 09:13 | XMS_ITS | Encounter Summary ---
Author Organization Healthcare Address [address] [place] [address] Care Team Providers Care Tractor Sweeper Operator Name Role Phone Tayo Jones MD Primary Care Provider [phone] Encounter Details Date Type Department Care Team (Late st Contact Info) Description 01/15/2023 Orders Only External Location [address] [place] [address] Provider, External Social History Tobacco Use Types [...] PM EDT Appointment Cardiac Imaging [address] [place] [address] 12/03/2024 3:30 PM EDT Appointment Cardiac Imaging [address] [place] [address] 12/20/2024 11:00 AM EDT Appointment [facility] [address] [place] [address] documented as of this encounter Procedures Procedure [...] on filedocumented in this encounter Care Teams Tractor Sweeper Operator Relationship Specialty Start Date End Date Tayo Jones MD [address] [phone] PCP - General 07/14/24 documented as of this encounter
--- OUTSIDE RECORDS SUMMARY | 2024-11-24 09:13 | XMS_ITS | Encounter Summary ---
Author Organization Healthcare Address [address] [place] [address] Care Team Providers Care Sort Supervisor Name Role Phone Tayo Jones MD Primary Care Provider [phone] Encounter Details Date Type Department Care Team (Late st Contact Info) Description 06/15/2024 Orders Only External Location [address] [place] [address] Provider, External Social History Tobacco Use Types [...] PM EDT Appointment Cardiac Imaging [address] [place] [address] 12/03/2024 3:30 PM EDT Appointment Cardiac Imaging [address] [place] [address] 12/20/2024 11:00 AM EDT Appointment [facility] [address] [place] [address] documented as of this encounter Procedures Procedure [...] on filedocumented in this encounter Care Teams Sort Supervisor Relationship Specialty Start Date End Date Tayo Jones MD [address] [place] [address] PCP - General 07/14/24 documented as of this encounter
--- OUTSIDE RECORDS SUMMARY | 2024-11-24 09:13 | XMS_ITS | Encounter Summary ---
Author Organization Healthcare Address [address] [place] [address] Care Team Providers Care Tonsorial Artist Name Role Phone Tayo Jones MD Primary Care Provider [phone] Encounter Details Date Type Department Care Team (Late st Contact Info) Description 05/06/2024 Orders Only External Location [address] [place] [address] Provider, External Social History Tobacco Use Types [...] PM EDT Appointment Cardiac Imaging [address] [place] [address] 12/03/2024 3:30 PM EDT Appointment Cardiac Imaging [address] [place] [address] 12/20/2024 11:00 AM EDT Appointment [facility] [address] [place] [address] documented as of this encounter Procedures Procedure [...] on filedocumented in this encounter Care Teams Tonsorial Artist Relationship Specialty Start Date End Date Tayo Jones MD [address] [place] [address] PCP - General 07/14/24 documented as of this encounter
--- OUTSIDE RECORDS SUMMARY | 2024-11-24 09:13 | XMS_ITS | Encounter Summary ---
Author Organization [facility] Address [address] [place] [address] Care Team Providers Care Acetylene Torch Solderer Name Role Phone Tayo Jones MD Primary Care Provider [phone] Encounter Details Date Type Department Care Team (Late st Contact Info) Description 01/24/2023 Orders Only External Location [address] [place] [address] Sue Pope MD [address] [place], [place] [id number] Social History Tobacco Use Types Packs/Day Years [...] PM EDT Appointment Cardiac Imaging [address] [place] [address] 12/03/2024 3:30 PM EDT Appointment Cardiac Imaging [address] [place] [address] 12/20/2024 11:00 AM EDT Appointment [facility] [address] [place] [address] documented as of this encounter Procedures Procedure Name Priority Date/Time Associated Diagnosis Comments CT OUTSIDE IMAGES 01/24/2023 9:34 AM EDT documented in this encounter Results * CT OUTSIDE IMAGES (01/24/2023 9:34 AM EDT) Anatomical Region Laterality Modality Computed Tomogra phy 01/24/2023 9:3 4 AM EDT Sue Pope MD IMG CT PROCEDURES Final Result documented in this encounter Visit Diagnoses Not on filedocumented in this encounter Care Teams Acetylene Torch Solderer Relationship Specialty Start Date End Date Tayo Jones MD [address] [place] [address] PCP - General 07/14/24 documented as of this encounter
--- OUTSIDE RECORDS SUMMARY | 2024-11-24 09:14 | XMS_ITS ---
Author Organization [facility] Address [address] [place] [address] Care Team Providers Care Lead Network Engineer Name Role Phone Tayo Jones MD Primary Care Provider [phone] Active Problems Problem Noted Date Diagnosed Date [...]
--- OUTSIDE RECORDS SUMMARY | 2024-11-24 09:14 | XMS_ITS | Encounter Summary ---
Author Organization [facility] Address [address] [place] [address] Care Team Providers Care [employer] Name Role Phone Jeremy Gil MD Unavailable Andres Alcantara DPM Unavailable Grant Fletcher MD Unavailable [phone] Niko Cueva MD Unavailable None, None Primary Care Provider UnavailGm Vigil DPM Unavailable [phone] Reina Byrd NP Unavailable Unavailable Encounter Details Date Type Department Care Team (Late st Contact Info) Description 09/08/2020 Clinical Update [facility] - Infectious Diseases, [facility] [address] [place] [address] [phone] Grant Fletcher MD [address] [place] [address] [id number] Social History Tobacco Use Types Packs/Day Years [...] (SGPT) (09/07/2020) ALT 5 U/L Plasma Result [facility] Grant Fletcher MD CHEMISTRY ORDERABLES Final Re sult * ALKALINE PHOSPHATASE (09/07/2020) Alkaline Phosphatase 98 U/L Plasma Result [facility] Grant Fletcher MD CHEMISTRY ORDERABLES Final Re sult * ALBUMIN (09/07/2020) Albumin 2.6 Plasma Result [facility] Grant Fletcher MD CHEMISTRY ORDERABLES [...] filedocumented in this encounter Care Teams [employer] Relationship Specialty Start Date End Date None, None [address] [place] [address] PCP - General 10/26/20 Jeremy Gil MD [address] [place] [address] [address] [place] [address] Internal Medicine 08/19/20 Andres Alcantara DPM [address] [facility] [place] [address] Resident Podiatry 08/22/20 Grant Fletcher MD [address] [facility] [address] [place] [address] Infectious Diseases 09/08/20 Niko Cueva MD [address] [facility] [address] [place] [address] Vascular Surgery 09/16/20 Gm Flor DPM [address] [facility]. [address] [place], [place] [id number] Podiatry 11/01/20 Reina Byrd NP [address] [facility] [place] [address] Nurse Practitioner Vascular Surgery 11/30/20 documented as of this encounter
--- OUTSIDE RECORDS SUMMARY | 2024-11-24 09:14 | XMS_ITS | Clinical Summary ---
Author Organization [facility] Address [address] [place] [address] Care Team Providers Care Hot Dimpling Machine Operator Name Role Phone Tayo Jones MD Primary Care Provider [phone] Allergies No known active allergies Medications carvedilol [...] Take 1 tablet by mouth daily. Active lisinopril-hydro CHLOROthiazide 20-25 MG tablet Take 1 tablet by mouth daily. Active Quercetin 500 MG capsule Take 2 tablets by mouth daily. Active acetaminophen (Tylenol) 500 MG tablet Take 1 tablet by mouth every 6 hours as needed for pain. 50 tablet 07/31/2024 Active lisinopril 20 MG tablet 10/26/2024 Active magnesium oxide (Mag-Ox) 400 MG tablet 11/07/2024 Active potassium chloride CR (Klor-Con M20) 20 MEQ ER tablet 11/09/2024 Ac tive sodium bicarbonate 650 MG tablet 11/09/2024 Active doxycycline (Vibramycin) 100 MG capsule 11/11/2024 Active Active Problems Problem Noted Date Diagnosed Date Bowel obstruction 10/08/2024 Obesity (BMI 35.0-39.9 without comorbidity) 07/14 Metastatic colon cancer to liver 07/23/2024 Encounters Date Type Department Care Team Description 11/19/2024 11:15 AM EDT Office Visit [facility] [address] [place] [phone] Farhad Castillo MD Metastatic colon cancer to liver (CMS/HCC) (Primary Dx); High risk surgery, pre-operative cardiovascular examination; Shortness of breath on exertion 11/19/2024 7:09 AM EDT - 11/19/2024 11:59 PM EDT Hospital Encounter [facility] [address] [place] [address] Metastatic colon cancer to liver (CMS/HCC) Discharge Disposition: Home or Self Care 11/19/2024 Travel 10/09/2024 Travel 10/08/2024 12:10 AM EDT - 10/09/2024 3:38 PM EDT Hospital Encounter [facility] Emergency Department [address] [place] [phone] Mickie Jefferson MD Hourigan, Jon S, MD Small bowel obstruction (CMS/HCC) (Primary Dx); Abdominal pain, generalized Discharge Disposition: [facility] Facility 10/08/2024 Travel 10/07/2024 Orders Only External Location [address] [place] [address] Provider, External from Last 3 Months Family [...] any time in the past [address] [facility], were you homeless or living in a penitentiary (including now)? No 10/09/2024 Utilities Answer Date Recorded In the past 12 months has th e IMN, gas, oil, or water [employer] threatened to shut off services in your [...] F) 11/19/2024 10:43 AM EDT Respiratory Rate 20 10/09/2024 1:47 PM EDT Oxygen Saturation 97% 11/19/2024 10:43 AM EDT Inhaled Oxygen Concentration - - Weight 112 kg (246 lb 11.1 oz) 11/19/2024 10:43 AM EDT Height 180.3 cm (5' 11 ) 11/19/2024 10:43 AM EDT Body Mass Index 34.41 11/19/2024 10:43 AM EDT Plan of Treatment Upcoming Encounters Date Type Department Care Team (Late st Contact Info) Description 12/03/2024 2:00 PM EDT Appointment Cardiac Imaging [address] [place] [address] 12/03/2024 3:30 PM EDT Appointment Cardiac Imaging [address] [place] [address] 12/20/2024 11:00 AM EDT Appointment [facility] Radiology [address] [place] [address] Health Maintenance Due Date Last Done Comments [facility]-Infant/Child/Adol SDOH Screenings 1965 Diabetes: Dental Exam 1974 [facility]-DTaP,Tdap,and Td Vaccines (1 - Tdap) 1983 [facility]-Hepatitis A Vaccines (1 of 2 - Risk 2-dose series) 1983 [facility]-Zoster Vaccines (1 of 2) 1983 [id number] Vaccine ( - season) 2023 01/15/2022, 03/28/2021, 07/27/2020, Additional history exists [facility]-RSV Vaccine: 60+ Years or (1 - Risk 60-74 years 1-dose series) 2024 [facility]-Influenza Vaccine (#1) 2024 [facility]-Diabetes: Hemoglobin A1C 02/18/2025 11/19/2024, 10/08/2024, 07/23/2024 [facility]- SDOH Screenings 04/10/2025 [facility]-Adult SDOH Screenings 04/10/2025 10/09/2024 [facility]-Depression Screening 11/19/2025 11/19/2024 [facility]-Pneumococcal Vaccine: 50+ Years Completed 05/27/2024, 09/12/2020 [facility]-Obesity Intervention Completed 10/07/2024, 07/14 [facility]-HIV [...] this topic Medical Devices Implanted Type Area Mrp Controller Device Identifier Shelf Expiration Date Model / Serial / Lot Port Clearvue Power 8fr - S. - [id number] Implanted:Qty : 1 on 07/31/2024 by Farhad Castillo MD at [facility] Other Medication Pump Left: Chest [employer]-[id number] 07/13/2025 [id number] / . / [id number] Procedures Procedure Name Priority Date/Time Associated Diagnosis Comments PREALBUMIN, PLASMA Routine 11/19/2024 11 :26 AM EDT Metastatic colon cancer to liver (CMS/HCC) HEMOGLOBIN A1C Routine 11/19/2024 11:26 AM EDT Metastatic colon cancer to liver (CMS/HCC) CEA, SERUM Routine 11/19/2024 11:26 AM EDT Metastatic colon cancer to liver (CMS/HCC) CBC W/O DIFFERENTIAL Routine 11/19/2024 11:26 AM EDT Metastatic colon cancer to liver (CMS/HCC) COMPREHENSIVE METABOLIC PANEL, PLASMA Routine 11/19/2024 11:26 AM EDT Metastatic colon cancer to liver (CMS/HCC) CT ABDOMEN PELVIS W IV CONTRAST Routine 11/19/2024 8:55 AM EDT Metastatic colon cancer to liver (CMS/HCC) CT CHEST W IV CONTRAST Routine 8:55 AM EDT Metastatic colon cancer to liver (CMS/HCC) POCT GLUCOSE METER UNSOLICITED RESULTS Routine 10/09/2024 12:08 PM EDT XR ABDOMEN 1 VIEW Routine 10/09/2024 9:4 1 AM EDT POCT GLUCOSE METER UNSOLICITED RESULTS Routine 10/09/2024 5:47 AM EDT BASIC METABOLIC PANEL, PLASMA Routine 10/09/2024 4:28 AM EDT CBC W/O DIFFERENTIAL Routine 10/09/2024 4:28 AM EDT XR GASTROGRAFIN [...] from Last 3 Months Results * (ABNORMAL) CBC W/O Differential (11/19/2024 11:26 AM EDT) Only the most recent of3 resultswithin the time period is included. WBC Count 8.37 3.70 - 10.30 10*3/uL LAB HEMATOLOGY METHOD 11/19/2024 11:55 AM EDT [facility] RBC Count 3.98(L) 4.60 - 6.10 10*6/uL LAB HEMATOLOGY METHOD 11/19/2024 11:55 AM EDT [facility] HGB 12.1(L) 13.7 - 17.5 g/dL LAB HEMATOLOGY METHOD 11/19/2024 11:55 AM EDT [facility] HCT 36.4(L) 40.0 - 51.0 % LAB HEMATOLOGY METHOD 11/19/2024 11:55 AM EDT [facility] Platelet Count 341 155 - 369 10*3/uL LAB HEMATOLOGY METHOD 11/19/2024 11:55 AM EDT [facility] MCV 92 79 - 98 fL LAB HEMATOLOGY METHOD 11/19/2024 11:55 AM EDT [facility] MCH 30.4 26.0 - 32.0 pg LAB HEMATOLOGY METHOD 11/19/2024 11:55 AM EDT [facility] MCHC 33.2 30.7 - 35.5 g/dL LAB HEMATOLOGY METHOD 11/19/2024 11:55 AM EDT [facility] RDW 13.9 11.5 - 14.5 % LAB HEMATOLOGY METHOD 11/19/2024 11:55 AM EDT [facility] MPV 8.7(L) 8.8 - 12.5 fL LAB HEMATOLOGY METHOD 11/19/2024 11:55 AM EDT [facility] nRBC 0.0 <=0.0 per 100 WBCs LAB HEMATOLOGY METHOD 11/19/2024 11:55 AM EDT [facility] Blood Venous blood specimen / Unknown Venipuncture / Unknown 11/19/2024 11:26 AM EDT 11/19/2024 11:47 AM EDT us Farhad Castillo MD LAB BLOOD ORDERABLES Final Result Performing Organization Address City/[facility]/ZIP Co de Phone Number [facility] [address] [place] [address] * Prealbumin, Plasma (11/19/2024 11:26 AM EDT) Prealbumin, Plasma 25.7 20.0 - 41.0 mg/dL 11/19/2024 12:19 PM EDT [facility] Blood Venous blood specimen / Unknown Venipuncture / Unknown 11/19/2024 11:26 AM EDT 11/19/2024 11:47 AM EDT us Farhad Castillo MD LAB BLOOD ORDERABLES Final Result Performing Organization Address City/[facility] de Phone Number [facility] [address] [place] [address] * (ABNORMAL) Hemoglobin A1c (11/19/2024 11:26 AM EDT) Only the most recent of2 resultswithin the time period is included. Hemoglobin A1c 7.3(H) <5.7 % 11/19/2024 12:49 PM EDT [facility] Blood Venous blood specimen / Unknown Venipuncture / Unknown 11/19/2024 11:26 AM EDT 11/19/2024 11:47 AM EDT Narrative [facility] - 11/19/2024 12:49 PM EDT HA1C Interpretive Data: Diagnosis of Diabetes: Diabetic > or = 6.5% Pre-diabetic 5.7 to 6.4% Non-diabetic < or = 5.6% Glycemic Targets for Type I and Type II Diabetics: Non- Adults <7.0% Adults <6.0% Children and Adolescents <7.5% Source: [place] [employer]. Standards of medical care in diabetes,2017. Diabetes Care.2017:40 (suppl 1):S1-S135. Farhad Castillo MD LAB BLOOD ORDERABLES Final Result Performing Organization Address [facility] de Phone Number [facility] [address] [place] [address] * (ABNORMAL) CEA, Serum (11/19/2024 11:26 AM EDT) CEA, Serum 7.7(H) <4.0 ng/mL 11/19/2024 12:31 PM EDT [facility] Blood Venous blood specimen / Unknown Venipuncture / Unknown 11/19/2024 11:26 AM EDT 11/19/2024 11:47 AM EDT Narrative [facility] - 11/19/2024 12:31 PM EDT Normal range for smokers: < 5.5 ng/ml Normal range for non-smokers: <=4.0 ng/ml Performed by [employer] electrochemiluminescent immunoassay. Results obtained with different test methods or kits cannot be used interchangeably. Farhad Castillo MD LAB BLOOD ORDERABLES Final Result Performing Organization Address [facility] de Phone Number [facility] [address] [place] [address] * (ABNORMAL) Comprehensive Metabolic Panel, Plasma (11/19/2024 11:26 AM EDT) Only the most recent of2 resultswithin the time period is included. Glucose, Plasma 174(H) 74 - 99 mg/dL 11/19/2024 12:19 PM EDT [facility] BUN, Plasma 20 8 - 23 mg/dL 11/19/2024 12:19 PM EDT [facility] Creatinine, Plasma 1.06 0.70 - 1.20 mg/dL 11/19/2024 12:19 PM EDT [facility] BUN/Creatinine Ratio 19 11/19/2024 12:19 PM EDT [facility] Sodium, Plasma 132(L) 136 - 145 mmol/L 11/19/2024 12:19 PM EDT [facility] Potassium, Plasma 4.7 3.6 - 4.9 mmol/L 11/19/2024 12:19 PM EDT [facility] Chloride, Plasma 101 97 - 107 mmol/L 11/19/2024 12:19 PM EDT [facility] CO2, Plasma 18(L) 22 - 29 mmol/L 11/19/2024 12:19 PM EDT [facility] Anion Gap 13 6 - 16 mmol/L 11/19/2024 12:19 PM EDT [facility] Total Calcium, Plasma 9.3 8.9 - 10.2 mg/dL 11/19/2024 12:19 PM EDT [facility] Total Protein 6.9 6.3 - 7.9 g/dL 11/19/2024 12:19 PM EDT [facility] Albumin, Plasma 3.9 3.5 - 5.2 g/dL 11/19/2024 12:19 PM EDT [facility] AST, Plasma 30 10 - 50 U/L 11/19/2024 12:19 PM EDT [facility] ALT, Plasma 20 10 - 50 U/L 11/19/2024 12:19 PM EDT [facility] Alkaline Phosphatase, Plasma 90 40 - 115 U/L 11/19/2024 12:19 PM EDT [facility] Total Bilirubin, Plasma 0.4 0.2 - 1.1 mg/dL 11/19/2024 12:19 PM EDT [facility] eGFRcr 80.3 mL/min/1.7 3m*2 11/19/2024 12:19 PM EDT [facility] Comment:Reported eGFRcr in m L/min/1.73m2 is based the CKD-EPI 2020 equation that does not use a race coefficient. Blood Venous blood specimen / Unknown Venipuncture / Unknown 11/19/2024 11:26 AM EDT 11/19/2024 11:47 AM EDT us Farhad Castillo MD LAB BLOOD ORDERABLES Final Result [facility] [address] [id number] * CT Abdomen Pelvis w IV Contrast (11/19/2024 8:55 AM EDT) Only the most recent of2 [...] Total DLP (Dose-Length Product): 3353.28 mGy.cm (accession [id number]), 3353.28 mGy.cm (accession [id number]) Please note: The reported value represents the [...] Total DLP (Dose-Length Product): 3353.28 mGy.cm (accession [id number]),3353.28 mGy.cm (accession [id number]) Please note: The reported valuerepresents the total [...] cm. . Other previously noted lesion within cuskmkl9D/8 remains difficult to clearly delineate. Unremarkable gallbladder.Stable [...] Total DLP (Dose-Length Product): 3353.28 mGy.cm (accession [id number]), 3353.28 mGy.cm (accession [id number]) Please note: The reported value represents the [...] Total DLP (Dose-Length Product): 3353.28 mGy.cm (accession [id number]),3353.28 mGy.cm (accession [id number]) Please note: The reported valuerepresents the total [...] cm. . Other previously noted lesion within qjwcefg9U/8 remains difficult to clearly delineate. Unremarkable gallbladder.Stable [...] CT PROCEDURES Final Re sult * (ABNORMAL) POCT glucose meter (10/09/2024 12:08 [...] Comment 10/09/2024 12:12 PM EDT [facility] Warehouse Team Member ID Julia Wisdom [id number] 12:12 PM EDT [facility] Device ID [id number] 10/09/2024 12:12 PM EDT [facility] Specimen Type POC Capillary 10/09/2024 12:12 PM EDT [facility] Blood Capillary blood specimen / Unknown 10/09/2024 12:08 PM EDT 10/09/2024 12:12 PM EDT Jj Carson MD LAB POINT OF CARE TE ST DOCKED DEVICE UNSOLICITED RESULTS Final Result [facility] [address] [place] [address] * XR Abdomen 1 View (10/09/2024 9:41 [...] IMG XR PROCEDURES Final Result * (ABNORMAL) Basic metabolic panel (10/09/2024 4:28 AM EDT) Only the most recent of2 resultswithin the time period is included. Glucose, Plasma 286(H) 74 - 99 mg/dL 10/09/2024 5:48 AM EDT [facility] BUN, Plasma 36(H) 8 - 23 mg/dL 10/09/2024 5:48 AM EDT [facility] Creatinine, Plasma 1.45(H) 0.70 - 1.20 mg/dL 10/09/2024 5:48 AM EDT [facility] BUN/Creatinine Ratio 25 10/09/2024 5:48 AM EDT [facility] Sodium, Plasma 131(L) 136 - 145 mmol/L 10/09/2024 5:48 AM EDT [facility] Potassium, Plasma 3.4(L) 3.6 - 4.9 mmol/L 10/09/2024 5:48 AM EDT [facility] Comment:Hemolyzed, result ma y be falsely increased. Chloride, Plasma 99 97 - 107 mmol/L 10/09/2024 5:48 AM EDT [facility] CO2, Plasma 17(L) 22 - 29 mmol/L 10/09/2024 5:48 AM EDT [facility] Anion Gap 15 6 - 16 mmol/L 10/09/2024 5:48 AM EDT [facility] Total Calcium, Plasma 8.8(L) 8.9 - 10.2 mg/dL 10/09/2024 5:48 AM EDT [facility] eGFRcr 55.2 mL/min/1.7 3m*2 10/09/2024 5:48 AM EDT [facility] Comment:Reported eGFRcr in m L/min/1.73m2 is based the CKD-EPI 2020 equation that does not use a race coefficient. Blood Venous blood specimen / Unknown Venipuncture / Unknown 10/09/2024 4:28 AM EDT 10/09/2024 5:03 AM EDT us Eva Barnes ASSISTANT PRINCIPAL, DNP LAB BLOOD ORDERABLE S Final Result [facility] [address] [place] [address] * XR Gastrograffin Challenge (10/09/2024 1:17 AM [...] - 4.5 mg/dL 10/08/2024 6:00 AM EDT [facility] Blood Venous blood specimen / Unknown Venipuncture / Unknown 10/08/2024 4:59 AM EDT 10/08/2024 5:16 AM EDT us Jj Carson MD LAB BLOOD ORDERABLES Final Res ult Performing Organization Address City/[facility] Co de Phone Number [facility] [address] [place] [address] * (ABNORMAL) Magnesium, Plasma (10/08/2024 4:59 AM EDT) Only the most recent of2 resultswithin the time period is included. Magnesium, Plasma 1.7(L) 1.9 - 2.4 mg/dL 10/08/2024 6:00 AM EDT [facility] Blood Venous blood specimen / Unknown Venipuncture / Unknown 10/08/2024 4:59 AM EDT 10/08/2024 5:16 AM EDT us Jj Carson MD LAB BLOOD ORDERABLES Final Res ult [facility] [address] [place] [address] * EKG now - STAT (adult) (10/08/2024 12:55 AM EDT) EKG DIAGNOSIS CLASS Abnormal MUSE ECG Ventricular Rate 85 BPM MUSE ECG Atrial Rate 85 BPM MUSE ECG IL Interval 168 ms MUSE ECG QRSD Interval 162 ms MUSE ECG QT Interval 442 ms MUSE ECG QTC Interval 525 ms MUSE ECG P [place] 16 degrees MUSE ECG R [place] -32 degrees MUSE ECG T Wave [place] 47 degrees MUSE ECG Diagnosis Normal sinus rhythm MUSE ECG Diagnosis Left axis deviation in the presence of LAFB MUSE ECG Diagnosis Right bundle branch block Bifascicular block MUSE ECG Diagnosis Minimal voltage criteria for LVH, may be normal variant ( R in aVL ) MUSE ECG Diagnosis Abnormal ECG MUSE ECG Diagnosis MUSE ECG Diagnosis Confirmed by Adarsh Pichardo ([id number]) on 10/08/2024 10:50:58 AM MUSE ECG 10/08/2024 12:5 5 AM EDT 10/08/2024 10:50 AM EDT Mickie Jefferson MD ECG ORDERABLES Final Result MUSE ECG * ED HIV 1/2 Antibody/Antigen Screen w/Reflex to HIV 1/2 Differentiation (10/08/2024 12:55 AM EDT) Pathologist [facility] HIV 1 & 2 Antibody/Antigen Screen Non Reactive Non Reactive 10/08/2024 2:00 AM EDT [facility] Comment:Screening for HIV 1 & 2 antibodies, and P24 antigen is NONREACTIVE. No confirmatory testing is required. Blood Venous blood specimen / Unknown Venipuncture / Unknown 10/08/2024 12:55 AM EDT 10/08/2024 1:11 AM EDT us Mickie Jefferson MD LAB BLOOD ORDERABLES Final Re sult [facility] [address] [place] [address] * Lactic acid, venous (10/08/2024 12:55 AM EDT) [facility] Lactate, Venous, Whole Blood 1.1 0.5 - 2.2 mmol/L LAB HEMATOLOGY METHOD 10/08/2024 1:10 AM EDT [facility] Blood Venous blood specimen / Unknown Venipuncture / Unknown 10/08/2024 12:55 AM EDT 10/08/2024 1:07 AM EDT us Mickie Jefferson MD LAB BLOOD ORDERABLES Final Re sult Performing Organization Address [facility] Co de Phone Number [facility] [address] [place] [address] * Hepatitis C Antibody - ED (10/08/2024 12:55 AM EDT) [facility] Hepatitis C Antibody Negative Negative 10/08/2024 2:16 AM EDT [facility] Blood Venous blood specimen / Unknown Venipuncture / Unknown 10/08/2024 12:55 AM EDT 10/08/2024 1:11 AM EDT us Mickie Jefferson MD LAB BLOOD ORDERABLES Final Re sult Performing Organization Address [facility] [place] [address] * (ABNORMAL) PT-INR (10/08/2024 12:55 AM EDT) [facility] Prothrombin Time 14.7(H) 12.0 - 14.3 sec 10/08/2024 1:27 AM EDT [facility] INR 1.2(H) 0.9 - 1.1 10/08/2024 1:27 AM EDT [facility] Blood Venous blood specimen / Unknown Venipuncture / Unknown 10/08/2024 12:55 AM EDT 10/08/2024 1:05 AM EDT Narrative [facility] - 10/08/2024 1:27 AM EDT OPTIMAL INR RANGES FOR PATIENT ON ORAL ANTICOAGULANT THERAPY Prevention of venous thromboembolism INR 2.0 to 3.0 In patients with heart disease: Atrial fibrillation INR 2.0 to 3.0 Valvular heart disease INR 2.0 to 3.0 Tissue heart valves INR 2.0 to 3.0 Mechanical prosthetic valves INR 2.5 to 3.5 Prevention of recurrent [place] INR 2.5 to 3.5 us Mickie Jefferson MD LAB BLOOD ORDERABLES Final Re sult [facility] [address] [place] [address] * (ABNORMAL) CBC w/diff (10/08/2024 12:55 AM EDT) WBC Count 11.32(H) 3.70 - 10.30 10*3/uL LAB HEMATOLOGY METHOD 10/08/2024 1:09 AM EDT [facility] RBC Count 4.20(L) 4.60 - 6.10 10*6/uL LAB HEMATOLOGY METHOD 10/08/2024 1:09 AM EDT [facility] HGB 13.9 13.7 - 17.5 g/dL LAB HEMATOLOGY METHOD 10/08/2024 1:09 AM EDT [facility] HCT 38.0(L) 40.0 - 51.0 % LAB HEMATOLOGY METHOD 10/08/2024 1:09 AM EDT [facility] Platelet Count 293 155 - 369 10*3/uL LAB HEMATOLOGY METHOD 10/08/2024 1:09 AM EDT [facility] MCV 91 79 - 98 fL LAB HEMATOLOGY METHOD 10/08/2024 1:09 AM EDT [facility] MCH 33.1(H) 26.0 - 32.0 pg LAB HEMATOLOGY METHOD 10/08/2024 1:09 AM EDT [facility] MCHC 36.6(H) 30.7 - 35.5 g/dL LAB HEMATOLOGY METHOD 10/08/2024 1:09 AM EDT [facility] RDW 13.5 11.5 - 14.5 % LAB HEMATOLOGY METHOD 10/08/2024 1:09 AM EDT [facility] MPV 10.0 8.8 - 12.5 fL LAB HEMATOLOGY METHOD 10/08/2024 1:09 AM EDT [facility] nRBC 0.0 <=0.0 per 100 WBCs LAB HEMATOLOGY METHOD 10/08/2024 1:09 AM EDT [facility] Differential Type Automated LAB HEMATOLOGY METHOD 10/08/2024 1:09 AM EDT [facility] Neutrophils % 70 % LAB HEMATOLOGY METHOD 10/08/2024 1:09 AM EDT [facility] Lymphocytes % 10 % LAB HEMATOLOGY METHOD 10/08/2024 1:09 AM EDT [facility] Monocytes % 18 % LAB HEMATOLOGY METHOD 10/08/2024 1:09 AM EDT [facility] Eosinophils % 0 % LAB HEMATOLOGY METHOD 10/08/2024 1:09 AM EDT [facility] Basophils % 1 % LAB HEMATOLOGY METHOD 10/08/2024 1:09 AM EDT [facility] Immature Granulocytes % 1 % LAB HEMATOLOGY METHOD 10/08/2024 1:09 AM EDT [facility] Neutrophils Absolute 7.97(H) 1.60 - 6.10 10*3/uL LAB HEMATOLOGY METHOD 10/08/2024 1:09 AM EDT [facility] Lymphocytes Absolute 1.17(L) 1.20 - 3.90 10*3/uL LAB HEMATOLOGY METHOD 10/08/2024 1:09 AM EDT [facility] Monocytes Absolute 2.01(H) 0.30 - 0.90 10*3/uL LAB HEMATOLOGY METHOD 10/08/2024 1:09 AM EDT [facility] Eosinophils Absolute 0.02 0.00 - 0.50 10*3/uL LAB HEMATOLOGY METHOD 10/08/2024 1:09 AM EDT [facility] Basophils Absolute 0.07 0.00 - 0.10 10*3/uL LAB HEMATOLOGY METHOD 10/08/2024 1:09 AM EDT [facility] Immature Granulocytes Absolute 0.08(H) 0.00 - 0.06 10*3/uL LAB HEMATOLOGY METHOD 10/08/2024 1:09 AM EDT [facility] Blood Venous blood specimen / Unknown Venipuncture / Unknown 10/08/2024 12:55 AM EDT 10/08/2024 1:05 AM EDT [facility] - 10/08/2024 1:09 AM EDT Therapeutic decision making should be based on absolute values, rather than percentages. us Mickie Jefferson MD LAB BLOOD ORDERABLES Final Re sult Performing Organization Address City/[facility]/ZIP Co de Phone Number [facility] [address] [place] [address] * Type and screen (10/08/2024 12:55 AM [...] S Final Result Performing Organization Address [facility] Co de Phone Number BLOOD BANK [address] [place] [address], [place] * CT OUTSIDE IMAGES (10/07/2024 7:58 PM EDT) Anatomical Region Laterality Modality Computed Tomogra phy 10/07/2024 7:58 PM EDT us External Provider IMG CT PROCEDURES Final Result from Last 3 Months Insurance [place]ives * Full Code (Latest Code Status on File) Date Activated Date Inactivated Comments 10/08/2024 4:28 AM 10/09/2024 5:43 PM Question Answer Comments I have reviewed the capacity from the link above and, if needed, have updated to appropriate status: Yes Care Teams Hot Dimpling Machine Operator Relationship Specialty Start Date End Date Tayo Jones MD [address] [place] [address] PCP - General 07/14/24
--- OUTSIDE RECORDS SUMMARY | 2024-11-24 09:14 | XMS_ITS | Encounter Summary ---
Author Organization [facility] Address [address] [place] [address] Care Team Providers Care Motion Picture Printer Name Role Phone Tayo Jones MD Primary Care Provider [phone] Encounter Details Date Type Department Care Team [...] any time in the past 12 m [facility], were you homeless or living in a [facility] (including now)? No 10/09/2024 Utilities Answer Date [...] PM EDT Appointment Cardiac Imaging [address] [place] [address] 12/03/2024 3:30 PM EDT Appointment Cardiac Imaging [address] [place] [address] 12/20/2024 11:00 AM EDT Appointment [facility] Radiology [address] [place] [address] documented as of this encounter Visit Diagnoses Not on filedocumented in this encounter Additional Health Concerns Assessment Noted Time A fall risk assessment has been complete d for the patient 07/23/2024 8:54 AM EDT A Body Mass Index follow-up plan has been documented for the patient 10/09/2024 3:15 PM EDT documented as of this encounter Care Teams Motion Picture Printer Relationship Specialty Start Date End Date Tayo Jones MD [address] [place] [address] PCP - General 07/14/24 documented as of this encounter
--- OUTSIDE RECORDS SUMMARY | 2024-11-24 09:14 | XMS_ITS | Encounter Summary ---
Author Organization Healthcare Address [address] [place] [address] Care Team Providers Care Aerial Erector Name Role Phone Tayo Jones MD Primary Care Provider [phone] Encounter Details Date Type Department Care Team (Late st Contact Info) Description 10/07/2024 Orders Only External Location [address] [place] [address] Provider, External Social History Tobacco Use Types [...] any time in the past 12 m [facility], were you homeless or living in a [...] PM EDT Appointment Cardiac Imaging [address] [place] [address] 12/03/2024 3:30 PM EDT Appointment Cardiac Imaging [address] [place] [address] 12/20/2024 11:00 AM EDT Appointment [facility] Radiology [address] [facility] [place] [address] documented as of this encounter Procedures Procedure [...] documented as of this encounter Care Teams Aerial Erector Relationship Specialty Start Date End Date Tayo Jones MD [address] [place] [address] PCP - General 07/14/24 documented as of this encounter
--- OUTSIDE RECORDS SUMMARY | 2024-11-24 09:14 | XMS_ITS | Clinical Summary ---
Author Organization [facility] Address [address] [place] [address] Care Team Providers Care Anesthesiology Technologist Name Role Phone Jeremy Gil MD Unavailable Andres Alcantara DPM Unavailable [phone] Grant Fletcher MD Unavailable [phone] Niko Cueva MD Unavailable None, None Primary Care Provider UnavailGm Vigil DPM Unavailable Reina Byrd NP Unavailable Unavailable Allergies No known active allergies Medications Insulin Glargine (Lantus) 100 unit/mL (3 mL) Solostar INPNIndications :Type 2 diabetes mellitus with hyperglycemia, with long-term current use of insulin ([facility]) 16 Units by Subcutaneous route every 24 [...] 1 Active Vitamin C 500 mg tablet Active zinc sulfate (ZINCATE) 220 mg Capsule Take 220 mg by mouth daily. Active Active Problems Problem Noted Date Diagnosed Date Leukocytosis 08/25/2020 Acute blood loss as cause of postoperative anemi a 08/23/2020 Abscess of right lower extremity 08/19/2020 Obesity (BMI 30-39.9) 08/19/2020 Type 2 diabetes mellitus wit h hyperglycemia, with long-term current use of insulin PVD (peripheral vascular disease) Other osteomyelitis of left foot Social History [...] of 2) 2014 COVID-19 Vaccine ( - 2023- season) 2023 Depression Screening 04/15/2024 Influenza Vaccination (#1) 2024 RSV Vaccines (1 - 1-dose 75+ series) 2039 Insurance [place]ICAID [place] Advance Directives For more information, please contact: [phone] * Full Code (Latest Code Status on File) Date Activated Date Inactivated Comments 08/19/2020 3:05 AM No automated ch est compression devices for VAD Patients Care Teams Anesthesiology Technologist Relationship Specialty Start Date End Date None, None [address] [place] [address] PCP - General 10/26/20 Jeremy Gil MD [address] [facility] Room [address] [place] [address] Internal Medicine 08/19/20 Andres Alcantara DPM [address] [facility]. [address] [place] [address] Resident Podiatry 08/22/20 Grant Fletcher MD [address] [place] [address]. [address] [place] [address] Infectious Diseases 09/08/20 Niko Cueva MD [facility] [address] [place] [address] Vascular Surgery 09/16/20 Gm Flor DPM [address] [place] [address] [place] [address] Podiatry 11/01/20 Reina Byrd NP [address] [place] [address] [place] [address] Nurse Practitioner Vascular Surgery 11/30/20
--- OUTSIDE RECORDS SUMMARY | 2024-11-24 09:14 | XMS_ITS | Encounter Summary ---
Author Organization [facility] Address [address] [place] [address] Care Team Providers Care Pallet Repairer Name Role Phone Tayo Jones MD Primary Care Provider [phone] Encounter Details Date Type Department Care Team (Latest Contact Info) Description 11/19/2024 Travel Social History Tobacco Use Types Packs/Day [...] any time in the past 12 m [facility], were you homeless or living [...] Not at all 11/19/2024 10:49 AM EDT KarishmarituJr chin Feeling down, depressed, or hopeless Not at all 11/19/2024 10:49 AM EDT Prem Jr Sarmiento natasha T Patient Health Questionnaire-2 Score 0 11/19/2024 10:49 AM EDT KarishmarituJr chin documented as of this encounter Plan of Treatment Upcoming Encounters Date Type Department Care Team (Late st Contact Info) Description 12/03/2024 2:00 PM EDT Appointment Cardiac Imaging [address] [place] [address] 12/03/2024 3:30 PM EDT Appointment Cardiac Imaging [address] [place] [address] 12/20/2024 11:00 AM EDT Appointment [facility] Radiology [address] [place] [address] documented as of this encounter Visit Diagnoses Not on filedocumented in this encounter Additional Health Concerns Assessment Noted Time A fall risk assessment has been complete d for the patient 07/23/2024 8:54 AM EDT A Body Mass Index follow-up plan has been documented for the patient 10/09/2024 3:15 PM EDT documented as of this encounter Care Teams Pallet Repairer Relationship Specialty Start Date End Date Tayo Jones MD [address] [place] [address] PCP - General 07/14/24 documented as of this encounter
[2024-11-24 09:28] LABS: Albumin Level 3.6 g/dl (3.5-5.0); Chloride 107 mmol/L (98-107); Sodium 137 mmol/L (136-145)
[2024-11-24 09:29] LABS: Potassium 4.1 mmoL/L (3.5-5.1)
[2024-11-24 09:31] LABS: Alanine Aminotransferase 15 U/L (12-78); Albumin/Globulin Ratio 1.4 (1.1-1.8); Anion Gap 11.1 mEq/L (5-15); Aspartate Amino Transferase 25 U/L (17-59); Bilirubin,Total 0.3 mg/dl (0.2-1.3); Blood Urea Nitrogen 15 mg/dl (9-20); Carbon Dioxide 23 mmol/L (22.0-30.0); Creatinine,Serum 0.80 mg/dl (0.66-1.25); Estimated Glomerular Filt Rate 99 ml/min (>60); GFR (African American) 119 ML/MIN (>60); Globulin 2.6 g/dL (1.3-3.2); Total Protein,Serum 6.2 g/dl (6.3-8.2)
[2024-11-24 09:32] LABS: Alkaline Phosphatase 71 U/L (38-126); Calcium 9.0 mg/dl (8.4-10.2); Glucose 163 mg/dl (74-100); Magnesium 1.4 mg/dl (1.6-2.3)
[2024-11-24 09:34] LABS: Hematocrit 33.9 % (42.0-52.0); Hemoglobin 11.5 g/dL (14.1-18.0); Immature Granulocytes % 0.9 %; Mean Corpuscular HGB Conc 33.9 g/dL (31.8-35.4); Mean Corpuscular Hemoglobin 31.3 pg (27.0-31.2); Mean Corpuscular Volume 92.1 fl (80-94); Nucleated Red Blood Cells % 0 %; Platelet Count 294 K/mm3 (142-424); Red Blood Count 3.68 M/mm3 (4.60-6.20); Red Cell Distribution Width-SD 47.5 fL; White Blood Count 10.6 K/mm3 (4.8-10.8)
[2024-11-24 10:38] VITALS: BP 139/72; PULSE 71; RESP 20; TEMP 36.7; O2SAT 99
[2024-11-24] MEDS: DEXAMETHASONE 4MG TABLET 12 MG (10:38)
[2024-11-24] MEDS: DEXTROSE 5 % IN WATER 100 ML 50 ML IV (10:38)
[2024-11-24] MEDS: ONDANSETRON 4MG ODT 16 MG (10:38)
[2024-11-24 11:13] VITALS: BP 137/68; PULSE 69; RESP 20; O2SAT 100
[2024-11-24] MEDS: IRINOTECAN HCL IV (11:13)
[2024-11-24] MEDS: DEXTROSE 5% IV (11:13)
[2024-11-24] MEDS: WATER IV (11:13)
[2024-11-24 11:43] VITALS: BP 131/70; PULSE 70; RESP 20; O2SAT 100
[2024-11-24 12:13] VITALS: BP 137/68; PULSE 62; RESP 20; O2SAT 99
[2024-11-24] MEDS: ATROPINE SULFATE 0.4MG/ML VIAL 0.4 MG (12:37)
[2024-11-24 12:43] VITALS: BP 141/75; PULSE 69; RESP 20; O2SAT 99
[2024-11-24] MEDS: SODIUM CHLORIDE 0.9% 10ML FLUSH SYRINGE 10 ML IV (12:46)
[2024-11-24 13:05] VITALS: BP 138/72; PULSE 70; RESP 20; O2SAT 100
[2024-11-25 08:14] LABS: CEA 8.4 ng/mL (0.0-4.7)
== END 2024-11-24 13:05 | disposition home or self-care (01) ==
LOC: INF 09:09
PROVIDERS: PCP Family Medicine; Visit Provider Internal Medicine Medical Oncology
DX: C18.2 Malignant neoplasm of ascending colon (principal)
CPT/HCPCS: 80053; 82378; 83735; 85025; 96413; 96415; J0461; J1642; J7060; J8540; J9206; Q0162

== ENCOUNTER 2024-12-01 09:25 | Outpatient (CLI) | payer MEDICAID, SELFPAY ==
--- OUTSIDE RECORDS SUMMARY | 2024-10-08 00:10 | XMS_ITS | Encounter Summary ---
Author Organization [facility] Address [address] [id number] Care Team Providers Care Rehabilitation Liaison Name Role Phone Tayo Jones MD Primary Care Provider [phone] Reason for Visit * Reason Comments Abdominal Pain * Auth/Cert (Routine) Specialty Diagnoses / Procedures Referred By Samia t Referred To Contact Diagnoses Bowel obstruction (CMS/HCC) Bowel Obstruction, hx of Colon Cancer Wilda Carson MD [address] [address] Phone: tel: fax: [facility] Emergency [facility] [address] [place] [address] Phone: tel: Referral ID Status Reason Start Date Expiration Date Visits Re quested Visits Authorized [id number] 1 1 Encounter Details Date Type Department Care Team (Latest Contact Info) Description 10/08/2024 12:10 AM EDT - 10/09/2024 3:38 PM EDT Hospital Encounter [facility] Emergency Department [address] [place] [address] Mickie Jefferson MD [address] [place] [address] Wilda Carson MD [address] [address] Small bowel obstruction (CMS/HCC) (Primary Dx); Abdominal pain, generalized Discharge Disposition: Long-Term Facility Social History Tobacco Use Types Packs/Day [...] any time in the past 12 m [facility], were you homeless or living in a care home (including now)? No 10/09/2024 Utilities Answer Date [...] follow up your medical oncology team at [facility] Questions: Call the [facility] at [phone] during business hours on weekdays or call [facility]'s after hours at [phone] to speak with a resident physical education professor for Colorectal surgery after 5pm or on [...] Note Nayan Womack 59 y.o. male CSN: [id number] Admission: 10/08/2024 12:10 AM Primary Problem: Bowel obstruction (CMS/HCC) Primary Audiovisual Lead Technician: Self/ Facility Assistance Available at Discharge: Availability of Care Givers (#Hours): 24 hours Discharge Facility/Level of Care Needs: Discharge Facility/Level of Care Needs: 3-Long-Term Facility Patient's Choice of Community Agency(s): [facility] ([facility]) Patient/Family Anticipated Services at Transition: Patient/Family Anticipated Services at Transition: none DME/Equipment Needed after Discharge: Equipment Currently Used at Home: none Readmission Within the Last 30 Days: Readmission Within the Last 30 Days: no previous admission in last 30 days Medicare Documentation: Medicare Second Notice?: No (N/A -1 Day) Follow-up: Franky Kim PA [address] [place] [address] Discharge Transportation: Transportation Anticipated: family or friend will provide Transportation Home at Discharge: Family/Friend will Provide Follow Up Transport: Transportation Needed to Follow up Appoinments: Other(Comment) (Facility) Additional Comments: POC reviewed with primary team. Refer to primary team's discharge note for details. Per MD pt is medically ready to discharge today. Pt is a ltc resident at a [facility]. Dispo: [facility] Address: [address] [place] [address] RN to call Report: [phone] DC summary Fax: SW Sent through [facility] Transport: Sister to transport Patient is in [...] (currently on chemo) who presented to the [facility] on 10/08/2024 from anOSH d/t a bowel obstruction. His oncology care is provided at [facility]. CT imaging on presentation with diffusely dilated [...] name and Address: Tayo Jones MD [address] [facility] [address] Referring provider name and address: Franky Kim PA [address] [facility] [address] [place] [address] Chief Concern, Brief History of Present Illness, and Hospital Course Nayan Womack is a 59 y.o. male with PMHx significant for moderately differentiated colon adenocarcinoma s/p R colectomy and adjuvant xeloda, loss to follow up, and recent representation with metastatic disease to the liver (currently on chemo) who presented to the [facility] on 10/08/2024 from [facility] d/t a bowel obstruction. His oncology care is provided at [facility]. CT imaging on presentation with diffusely dilated [...] Center 11/19/2024 8:[address] 1 [facility] 11/19/2024 11:15 AM Farhad Castillo MD MOCHWHTNY [...] from the original note were not included. [facility] Department of Surgery Division of Colorectal Surgery Surgery Progress Note 10/09/24 Nayan Womack Subjective Subjective: HPI Nayan Womack is a 59 y.o. male with PMHx significant for moderately differentiated colon adenocarcinoma s/p R colectomy and adjuvant xeloda, loss to follow up, and recent representation with metastatic disease to the liver currently at [facility](driven by Onc at [facility]) who presented to the [facility] on 10/08/2024 from an OSH d/t [...] liver currently at chemo(driven by Onc at [facility]) who presented to the [facility] on 10/08/2024 from an OSH d/t [...] original note were not included. [facility] Department of Surgery Division of [...] liver currently at chemo(driven by Onc at [facility]) who presented to the [facility] on 10/08/2024 from an OSH d/t [...] History Administered Date(s) Administered Moderna COVID-19 Vaccine (Manuscript Reader) 12+ years 06/29/2020, 07/27/2020, 03/28/2021 Pfizer-BioNTEachpal COVID-19 Bivalent (Yang Cap) 12+ years (dee-sucrose) [...] liver currently at chemo(driven by Onc at [facility]) who presented to the [facility] on 10/08/2024 from an OSH d/t [...] down and gluc 225 -f/u CT imaging -[facility] Dispo: Admit to scr CODE STATUS: [...] Review Outcome: Ongoing, Progressing Flowsheets (Taken 10/09/2024 2635) Plan of Care Reviewed With: patient Goal: Patient-Specific Goal (Individualized) Outcome: Ongoing, Progressing Goal: Absence of Hospital-Acquired Illness or Injury Outcome: Ongoing, Progressing Intervention: Identify and Manage Fall Risk Flowsheets (Taken 10/09/2024826) Safety Promotion/Fall Prevention: assistive device/personal items within [facility] fall prevention program maintained safety round/check completed mobility aid in [facility] clutter-free environment maintained Intervention: Prevent Infection [...] Safety Promotion/Fall Prevention: assistive device/personal items within [facility] fall prevention program maintained safety round/check completed mobility aid in [facility] clutter-free environment maintained Intervention: Prevent Infection [...] and oriented to person, place, and time. [place] Coma Scale Score: 15 ED Course & [...] Notify Provider Until discontinued Acknowledged DHIRAJ KELLY Sandie 10/08/24427 Intake and Output - Strict Per [...] Every 1 hour while awake Acknowledged DHIRAJ [facility] 10/08/24427 Nasogastric tube maintenance Connect to: [...] None Disposition Admit Admitting/Attending Physician: WILDA CARSON [[id number]] Provider Care Team: MEIR MANZANARES COLORECTAL SURGERY [...] Care Team (Late st Contact Info) Description 12/17/2024 8:00 AM EDT Appointment Cardiac Imaging [address] [place] [address] 12/17/2024 9:30 AM EDT Appointment Cardiac Imaging [address] [place] [address] 12/20/2024 11:00 AM EDT Appointment [facility] Radiology [address] [place] [phone] 12/24/2024 9:15 AM EDT Office Visit [facility] [address] [place] [phone] Farhad Castillo MD [address] [id number] documented as of this encounter Procedures Procedure [...] for testing. Comment 10/09/2024 12:12 PM EDT [facility] Quarry Boss ID Julia Wisdom 025 12:12 PM EDT [facility]ARE [facility] Device ID [id number] 10/09/2024 12:12 PM EDT [facility] Specimen Type POC Capillary 10/09/2024 12:12 PM EDT [facility] Blood Capillary blood specimen / Unknown 10/09/2024 12:08 PM EDT 10/09/2024 12:12 PM EDT us Wilda Carson MD LAB POINT OF CARE TE ST DOCKED DEVICE UNSOLICITED RESULTS Final Result [facility] [address] [place] [address] * XR Abdomen 1 View (10/09/2024 9:41 [...] POCT glucose meter (10/09/2024 5:47 AM EDT) POCT Glucose 270(H) 74 - 99 mg/dL 10/09/2024 5:49 AM EDT [facility] Comment:Accuracy of a glucos e result [...] for testing. Comment 10/09/2024 5:49 AM EDT [facility] Quarry Boss ID Flor Marks 10/09/2024 5:49 AM EDT [facility] Device ID [id number] 10/09/2024 5:49 AM EDT [facility] Specimen Type POC Capillary 10/09/2024 5:49 AM EDT [facility] Blood Capillary blood specimen / Unknown 10/09/2024 5:47 AM EDT 10/09/2024 5:49 AM EDT us Wilda Carson MD LAB POINT OF CARE TE ST DOCKED DEVICE UNSOLICITED RESULTS Final Result [facility] [address] [place] [address] * (ABNORMAL) Basic metabolic panel (10/09/2024 4:28 AM EDT) Glucose, Plasma 286(H) 74 - 99 mg/dL 10/09/2024 5:48 AM EDT [facility] BUN, Plasma 36(H) 8 - 23 mg/dL 10/09/2024 5:48 AM EDT [facility] Creatinine, Plasma 1.45(H) 0.70 - 1.20 mg/dL 10/09/2024 5:48 AM EDT [facility] BUN/Creatinine Ratio 25 10/09/2024 5:48 AM EDT [facility] Sodium, Plasma 131(L) 136 - 145 mmol/L 10/09/2024 5:48 AM EDT [facility] Potassium, Plasma 3.4(L) 3.6 - 4.9 mmol/L 10/09/2024 5:48 AM EDT [facility] Comment:Hemolyzed, result ma y be falsely increased. Chloride, Plasma 99 97 - 107 mmol/L 10/09/2024 5:48 AM EDT [facility] CO2, Plasma 17(L) 22 - 29 mmol/L 10/09/2024 5:48 AM EDT [facility] Anion Gap 15 6 - 16 mmol/L 10/09/2024 5:48 AM EDT [facility] Total Calcium, Plasma 8.8(L) 8.9 - 10.2 mg/dL 10/09/2024 5:48 AM EDT [facility] eGFRcr 55.2 mL/min/1.7 3m*2 10/09/2024 5:48 AM EDT [facility] Comment:Reported eGFRcr in m L/min/1.73m2 is based the CKD-EPI 2020 equation that does not use a race coefficient. Blood Venous blood specimen / Unknown Venipuncture / Unknown 10/09/2024 4:28 AM EDT 10/09/2024 5:03 AM EDT us Eva Barnes REFINERY OPERATOR ASSISTANT, DNP LAB BLOOD ORDERABLE S Final Result [facility] [address] [place] [address] * (ABNORMAL) CBC W/O Differential (10/09/2024 4:28 AM EDT) WBC Count 9.06 3.70 - 10.30 10*3/uL LAB HEMATOLOGY METHOD 10/09/2024 4:52 AM EDT [facility] RBC Count 4.07(L) 4.60 - 6.10 10*6/uL LAB HEMATOLOGY METHOD 10/09/2024 4:52 AM EDT [facility] HGB 13.3(L) 13.7 - 17.5 g/dL LAB HEMATOLOGY METHOD 10/09/2024 4:52 AM EDT [facility] HCT 37.0(L) 40.0 - 51.0 % LAB HEMATOLOGY METHOD 10/09/2024 4:52 AM EDT [facility] Platelet Count 312 155 - 369 10*3/uL LAB HEMATOLOGY METHOD 10/09/2024 4:52 AM EDT [facility] MCV 91 79 - 98 fL LAB HEMATOLOGY METHOD 10/09/2024 4:52 AM EDT [facility] MCH 32.7(H) 26.0 - 32.0 pg LAB HEMATOLOGY METHOD 10/09/2024 4:52 AM EDT [facility] MCHC 35.9(H) 30.7 - 35.5 g/dL LAB HEMATOLOGY METHOD 10/09/2024 4:52 AM EDT [facility] RDW 13.5 11.5 - 14.5 % LAB HEMATOLOGY METHOD 10/09/2024 4:52 AM EDT [facility] MPV 9.1 8.8 - 12.5 fL LAB HEMATOLOGY METHOD 10/09/2024 4:52 AM EDT [facility] nRBC 0.0 <=0.0 per 100 WBCs LAB HEMATOLOGY METHOD 10/09/2024 4:52 AM EDT [facility] Blood Venous blood specimen / Unknown Venipuncture / Unknown 10/09/2024 4:28 AM EDT 10/09/2024 4:50 AM EDT us Eva Barnes REFINERY OPERATOR ASSISTANT, DNP LAB BLOOD ORDERABLE S Final Result [facility] [address] [place] [address] * XR Gastrograffin Challenge (10/09/2024 1:17 AM [...] POCT glucose meter (10/08/2024 11:59 PM EDT) POCT Glucose 287(H) 74 - 99 mg/dL 10/09/2024 12:00 AM EDT [facility] Comment:Accuracy of a [...] for testing. Comment 10/09/2024 12:00 AM EDT [facility] Quarry Boss ID Flor Marks 10/09/2024 12:00 AM EDT [facility] Device ID [id number] 10/09/2024 12:00 AM EDT [facility] Specimen Type POC Capillary 10/09/2024 12:00 AM EDT [facility] Blood Capillary blood specimen / Unknown 10/08/2024 11:59 PM EDT 10/09/2024 12:00 AM EDT us Wilda Carson MD LAB POINT OF CARE TE ST DOCKED DEVICE UNSOLICITED RESULTS Final Result [facility] [address] [place] [address] * (ABNORMAL) POCT glucose meter (10/08/2024 9:01 PM EDT) POCT Glucose 284(H) 74 - 99 mg/dL 10/08/2024 9:03 PM EDT [facility] Comment:Accuracy of a [...] 10/08/2024 9:03 PM EDT [facility] Quarry Boss ID Isma Quiroz 025 9:03 PM EDT [facility] Device ID [id number] 10/08/2024 9:03 PM EDT [facility] Specimen Type POC Capillary 10/08/2024 9:03 PM EDT [facility] Blood Capillary blood specimen / Unknown 10/08/2024 9:01 PM EDT 10/08/2024 9:03 PM EDT us Wilda Carson MD LAB POINT OF CARE TE ST DOCKED DEVICE UNSOLICITED RESULTS Final Result Performing Organization Address [facility] de Phone Number [facility]ALTH[facility]ARE [facility] [address] [place] [address] * (ABNORMAL) POCT glucose meter (10/08/2024 5:08 PM EDT) [facility] POCT Glucose 202(H) 74 - 99 mg/dL [...] for testing. Comment 10/08/2024 5:10 PM EDT [facility] ID Franchesca Herrera 5:10 PM EDT [facility] Device ID [id number] 10/08/2024 5:10 PM EDT [facility] Specimen Type POC Capillary 10/08/2024 5:10 PM EDT [facility] Blood Capillary blood specimen / Unknown 10/08/2024 5:08 PM EDT 10/08/2024 5:10 PM EDT us Wilda Carson MD LAB POINT OF CARE TE ST DOCKED DEVICE UNSOLICITED RESULTS Final Result Performing Organization Address City/[facility] Co de Phone Number [facility]ALTH[facility]ARE LAB [address] [place] [address] * (ABNORMAL) POCT glucose meter (10/08/2024 11:57 AM EDT) [facility] POCT Glucose 252(H) 74 - 99 mg/dL [...] Comment 10/08/2024 11:59 AM EDT [facility] Quar[employer] [facility] ID Phuong Glass 025 11:59 AM EDT [facility] Device ID [id number] 10/08/2024 11:59 AM EDT [facility] Specimen Type POC Capillary 10/08/2024 11:59 AM EDT [facility] Blood Capillary blood specimen / Unknown 10/08/2024 11:57 AM EDT 10/08/2024 11:59 AM EDT Wilda Carson MD LAB POINT OF CARE TE ST DOCKED DEVICE UNSOLICITED RESULTS Final Result [facility] [address] [place] [address] * (ABNORMAL) POCT glucose meter (10/08/2024 7:55 AM EDT) [facility] POCT Glucose 248(H) 74 - 99 [...] 10/08/2024 7:57 AM EDT [facility] Quarry Boss ID Phuong Glass 025 7:57 AM EDT [facility] Device ID [id number] 10/08/2024 7:57 AM EDT [facility] Specimen Type POC Capillary 10/08/2024 7:57 AM EDT [facility] Blood Capillary blood specimen / Unknown 10/08/2024 7:55 AM EDT 10/08/2024 7:57 AM EDT Wilda Carson MD LAB POINT OF CARE TE ST DOCKED DEVICE UNSOLICITED RESULTS Final Result Performing Organization Address City/[facility]/ZIP Co de Phone Number [facility] [address] [place] [address] * (ABNORMAL) POCT glucose meter (10/08/2024 5:40 AM EDT) [facility] POCT Glucose 255(H) 74 - 99 mg/dL [...] Comment 10/08/2024 5:42 AM EDT [facility] Quarry Boss ID Bj Canales 10/08/2024 5:42 AM EDT [facility] Device ID [id number] 10/08/2024 5:42 AM EDT [facility] Specimen Type POC Capillary 10/08/2024 5:42 AM EDT [facility] Blood Capillary blood specimen / Unknown 10/08/2024 5:40 AM EDT 10/08/2024 5:42 AM EDT us Wilda Carson MD LAB POINT OF CARE TE ST DOCKED DEVICE UNSOLICITED RESULTS Final Result Performing Organization Address City/[facility]/ZIP Co de Phone Number [facility] [address] [place] [address] * (ABNORMAL) Hemoglobin A1c (10/08/2024 4:59 AM EDT) Pathologist [facility] Hemoglobin A1c 7.6(H) <5.7 % 10/08/2024 11:37 AM EDT [facility] Blood Venous blood specimen / Unknown Venipuncture / Unknown 10/08/2024 4:59 AM EDT 10/08/2024 5:01 AM EDT Narrative [facility] - 10/08/2024 11:37 AM EDT HA1C Interpretive Data: Diagnosis of Diabetes: Diabetic > or = 6.5% Pre-diabetic 5.7 to 6.4% Non-diabetic < or = 5.6% Glycemic Targets for Type I and Type II Diabetics: Non- Adults <7.0% Adults <6.0% Children and Adolescents <7.5% Source: [place] [employer]. Standards of medical care in diabetes,2017. Diabetes Care.2017:40 (suppl 1):S1-S135. Wilda Carson MD LAB BLOOD ORDERABLES Final Res ult Performing Organization Address City/[facility]/ZIP [place] [address] * Phosphorus, Plasma (10/08/2024 4:59 AM EDT) Phosphorus, Plasma 3.8 2.5 - 4.5 mg/dL 10/08/2024 6:00 AM EDT [facility] Blood Venous blood specimen / Unknown Venipuncture / Unknown 10/08/2024 4:59 AM EDT 10/08/2024 5:16 AM EDT Wilda Carson MD LAB BLOOD ORDERABLES Final Res ult [facility] [address] [place] [address] * (ABNORMAL) Magnesium, Plasma (10/08/2024 4:59 AM EDT) Magnesium, Plasma 1.7(L) 1.9 - 2.4 mg/dL 10/08/2024 6:00 AM EDT [facility] Blood Venous blood specimen / Unknown Venipuncture / Unknown 10/08/2024 4:59 AM EDT 10/08/2024 5:16 AM EDT us Wilda Carson MD LAB BLOOD ORDERABLES Final Res ult [facility] [address] [place] [address] * (ABNORMAL) CBC W/O Differential (10/08/2024 4:59 AM EDT) WBC Count 9.53 3.70 - 10.30 10*3/uL LAB HEMATOLOGY METHOD 10/08/2024 5:04 AM EDT [facility] RBC Count 4.33(L) 4.60 - 6.10 10*6/uL LAB HEMATOLOGY METHOD 10/08/2024 5:04 AM EDT [facility] HGB 14.1 13.7 - 17.5 g/dL LAB HEMATOLOGY METHOD 10/08/2024 5:04 AM EDT [facility] HCT 39.4(L) 40.0 - 51.0 % LAB HEMATOLOGY METHOD 10/08/2024 5:04 AM EDT [facility] Platelet Count 279 155 - 369 10*3/uL LAB HEMATOLOGY METHOD 10/08/2024 5:04 AM EDT [facility] MCV 91 79 - 98 fL LAB HEMATOLOGY METHOD 10/08/2024 5:04 AM EDT [facility] MCH 32.6(H) 26.0 - 32.0 pg LAB HEMATOLOGY METHOD 10/08/2024 5:04 AM EDT [facility] MCHC 35.8(H) 30.7 - 35.5 g/dL LAB HEMATOLOGY METHOD 10/08/2024 5:04 AM EDT [facility] RDW 13.3 11.5 - 14.5 % LAB HEMATOLOGY METHOD 10/08/2024 5:04 AM EDT [facility] MPV 8.9 8.8 - 12.5 fL LAB HEMATOLOGY METHOD 10/08/2024 5:04 AM EDT [facility] nRBC 0.0 <=0.0 per 100 WBCs LAB HEMATOLOGY METHOD 10/08/2024 5:04 AM EDT [facility] Blood Venous blood specimen / Unknown Venipuncture / Unknown 10/08/2024 4:59 AM EDT 10/08/2024 5:01 AM EDT us Wilda Carson MD LAB BLOOD ORDERABLES Final Res ult [facility] [address] [place] [address] * (ABNORMAL) Basic Metabolic Panel, Plasma (10/08/2024 4:59 AM EDT) Glucose, Plasma 206(H) 74 - 99 mg/dL 10/08/2024 6:00 AM EDT [facility] BUN, Plasma 39(H) 8 - 23 mg/dL 10/08/2024 6:00 AM EDT [facility] Creatinine, Plasma 1.26(H) 0.70 - 1.20 mg/dL 10/08/2024 6:00 AM EDT [facility] BUN/Creatinine Ratio 31 10/08/2024 6:00 AM EDT [facility] Sodium, Plasma 125(L) 136 - 145 mmol/L 10/08/2024 6:00 AM EDT [facility] Potassium, Plasma 3.2(L) 3.6 - 4.9 mmol/L 10/08/2024 6:00 AM EDT [facility] Comment:Hemolyzed, result ma y be falsely increased. Chloride, Plasma 98 97 - 107 mmol/L 10/08/2024 6:00 AM EDT [facility] CO2, Plasma 14(L) 22 - 29 mmol/L 10/08/2024 6:00 AM EDT [facility] Anion Gap 13 6 - 16 mmol/L 10/08/2024 6:00 AM EDT [facility] Total Calcium, Plasma 7.6(L) 8.9 - 10.2 mg/dL 10/08/2024 6:00 AM EDT [facility] eGFRcr 65.3 mL/min/1.7 3m*2 10/08/2024 6:00 AM EDT [facility] Comment:Reported eGFRcr in m L/min/1.73m2 is based the CKD-EPI 2020 equation that does not use a race coefficient. Blood Venous blood specimen / Unknown Venipuncture / Unknown 10/08/2024 4:59 AM EDT 10/08/2024 5:16 AM EDT us Wilda Carson MD LAB BLOOD ORDERABLES Final Res ult [facility] [address] [place] [address] * CT Abdomen Pelvis w IV Contrast [...] Chronic degenerative changes noted. Procedure Note Domenica Grimaldo DO - 10/08/2024 CLINICAL INDICATION: bowel obstruction [...] Domenica Grimaldo DO on 10/08/2024 9:53 AM Mickie Jefferson MD IMG CT PROCEDURES Final [...] QTC Interval 525 ms MUSE ECG P [place] 16 degrees MUSE ECG R [place] -32 degrees MUSE ECG T Wave [place] 47 degrees MUSE ECG Diagnosis Normal sinus rhythm MUSE ECG Diagnosis Left axis deviation in the presence of LAFB MUSE ECG Diagnosis Right bundle branch block Bifascicular block MUSE ECG Diagnosis Minimal voltage criteria for LVH, may be normal variant ( R in aVL ) MUSE ECG Diagnosis Abnormal ECG MUSE ECG Diagnosis MUSE ECG Diagnosis Confirmed by Adarsh Pichardo ([id number]) on 10/08/2024 10:50:58 AM MUSE ECG 10/08/2024 12:5 5 AM EDT 10/08/2024 10:50 AM EDT Mickie Jefferson MD ECG ORDERABLES Final Result MUSE ECG * ED HIV 1/2 Antibody/Antigen Screen w/Reflex to HIV 1/2 Differentiation (10/08/2024 12:55 AM EDT) HIV 1 & 2 Antibody/Antigen Screen Non Reactive Non Reactive 10/08/2024 2:00 AM EDT [facility] Comment:Screening for HIV 1 & 2 antibodies, and P24 antigen is NONREACTIVE. No confirmatory testing is required. Blood Venous blood specimen / Unknown Venipuncture / Unknown 10/08/2024 12:55 AM EDT 10/08/2024 1:11 AM EDT Mickie Jefferson MD LAB BLOOD ORDERABLES Final Re sult [facility] [address] [place] [address] * Hepatitis C Antibody - ED (10/08/2024 12:55 AM EDT) Hepatitis C Antibody Negative Negative 10/08/2024 2:16 AM EDT [facility] Blood Venous blood specimen / Unknown Venipuncture / Unknown 10/08/2024 12:55 AM EDT 10/08/2024 1:11 AM EDT us Mickie Jefferson MD LAB BLOOD ORDERABLES Final Re sult [facility] [address] [place] [address] * Type and screen (10/08/2024 12:55 AM [...] ORDERABLE S Final Result Performing Organization Address [facility] Co de Phone Number BLOOD BANK [address] [place] [address], * (ABNORMAL) PT-INR (10/08/2024 12:55 AM EDT) Prothrombin Time 14.7(H) 12.0 - 14.3 sec 10/08/2024 1:27 AM EDT [facility] INR 1.2(H) 0.9 - 1.1 10/08/2024 1:[address] [facility] Blood Venous blood specimen / Unknown Venipuncture / Unknown 10/08/2024 12:55 AM EDT 10/08/2024 1:05 AM EDT Narrative [facility] - 10/08/2024 1:27 AM EDT OPTIMAL INR RANGES FOR PATIENT ON ORAL ANTICOAGULANT THERAPY Prevention of venous thromboembolism INR 2.0 to 3.0 In patients with heart disease: Atrial fibrillation INR 2.0 to 3.0 Valvular heart disease INR 2.0 to 3.0 Tissue heart valves INR 2.0 to 3.0 Mechanical prosthetic valves INR 2.5 to 3.5 Prevention of recurrent MO INR 2.5 to 3.5 us Mickie Jefferson MD LAB BLOOD ORDERABLES Final Re sult [facility] [address] [place] [address] * (ABNORMAL) CBC w/diff (10/08/2024 12:55 AM EDT) WBC Count 11.32(H) 3.70 - 10.30 10*3/uL LAB HEMATOLOGY METHOD 10/08/2024 1:09 AM EDT [facility] RBC Count 4.20(L) 4.60 - 6.10 10*6/uL LAB HEMATOLOGY METHOD 10/08/2024 1:09 AM EDT [facility] HGB 13.9 13.7 - 17.5 g/dL LAB HEMATOLOGY METHOD 10/08/2024 1:09 AM EDT [facility] HCT 38.0(L) 40.0 - 51.0 % LAB HEMATOLOGY METHOD 10/08/2024 1:09 AM EDT [facility] Platelet Count 293 155 - 369 10*3/uL LAB HEMATOLOGY METHOD 10/08/2024 1:09 AM EDT [facility] MCV 91 79 - 98 fL LAB HEMATOLOGY METHOD 10/08/2024 1:09 AM EDT [facility] MCH 33.1(H) 26.0 - 32.0 pg LAB HEMATOLOGY METHOD 10/08/2024 1:09 AM EDT [facility] MCHC 36.6(H) 30.7 - 35.5 g/dL LAB HEMATOLOGY METHOD 10/08/2024 1:09 AM EDT [facility] RDW 13.5 11.5 - 14.5 % LAB HEMATOLOGY METHOD 10/08/2024 1:09 AM EDT [facility] MPV 10.0 8.8 - 12.5 fL LAB HEMATOLOGY METHOD 10/08/2024 1:09 AM EDT [facility] nRBC 0.0 <=0.0 per 100 WBCs LAB HEMATOLOGY METHOD 10/08/2024 1:09 AM EDT [facility] Differential Type Automated LAB HEMATOLOGY METHOD 10/08/2024 1:09 AM EDT [facility] Neutrophils % 70 % LAB HEMATOLOGY METHOD 10/08/2024 1:09 AM EDT [facility] Lymphocytes % 10 % LAB HEMATOLOGY METHOD 10/08/2024 1:09 AM EDT [facility] Monocytes % 18 % LAB HEMATOLOGY METHOD 10/08/2024 1:09 AM EDT [facility] Eosinophils % 0 % LAB HEMATOLOGY METHOD 10/08/2024 1:09 AM EDT [facility] Basophils % 1 % LAB HEMATOLOGY METHOD 10/08/2024 1:09 AM EDT [facility] Immature Granulocytes % 1 % LAB HEMATOLOGY METHOD 10/08/2024 1:09 AM EDT [facility] Neutrophils Absolute 7.97(H) 1.60 - 6.10 10*3/uL LAB HEMATOLOGY METHOD 10/08/2024 1:09 AM EDT [facility] Lymphocytes Absolute 1.17(L) 1.20 - 3.90 10*3/uL LAB HEMATOLOGY METHOD 10/08/2024 1:09 AM EDT [facility] Monocytes Absolute 2.01(H) 0.30 - 0.90 10*3/uL LAB HEMATOLOGY METHOD 10/08/2024 1:09 AM EDT [facility] Eosinophils Absolute 0.02 0.00 - 0.50 10*3/uL LAB HEMATOLOGY METHOD 10/08/2024 1:09 AM EDT [facility] Basophils Absolute 0.07 0.00 - 0.10 10*3/uL LAB HEMATOLOGY METHOD 10/08/2024 1:09 AM EDT [facility] Immature Granulocytes Absolute 0.08(H) 0.00 - 0.06 10*3/uL LAB HEMATOLOGY METHOD 10/08/2024 1:09 AM EDT [facility] Blood Venous blood specimen / Unknown Venipuncture / Unknown 10/08/2024 12:55 AM EDT 10/08/2024 1:05 AM EDT [facility] - 10/08/2024 1:09 AM EDT Therapeutic decision making should be based on absolute values, rather than percentages. us Mickie Jefferson MD LAB BLOOD ORDERABLES Final Re sult Performing Organization Address [facility] Co de Phone Number [facility] [address] [place] [address] * Lactic acid, venous (10/08/2024 12:55 AM EDT) Lactate, Venous, Whole Blood 1.1 0.5 - 2.2 mmol/L LAB HEMATOLOGY METHOD 10/08/2024 1:10 AM EDT [facility] Blood Venous blood specimen / Unknown Venipuncture / Unknown 10/08/2024 12:55 AM EDT 10/08/2024 1:07 AM EDT Result Kurt Jefferson MD LAB BLOOD ORDERABLES Final Re sult Performing Organization Address [facility] de Phone Number [facility] [address] [place] [address] * (ABNORMAL) Phosphorus (10/08/2024 12:55 AM EDT) Phosphorus, Plasma 4.6(H) 2.5 - 4.5 mg/dL 10/08/2024 1:37 AM EDT [facility] Blood Venous blood specimen / Unknown Venipuncture / Unknown 10/08/2024 12:55 AM EDT 10/08/2024 1:05 AM EDT Result Kurt Jefferson MD LAB BLOOD ORDERABLES Final Re sult Performing Organization Address [facility] Co de Phone Number [facility] [address] [place] [address] * Magnesium (10/08/2024 12:55 AM EDT) Magnesium, Plasma 1.9 1.9 - 2.4 mg/dL 10/08/2024 1:37 AM EDT [facility] Blood Venous blood specimen / Unknown Venipuncture / Unknown 10/08/2024 12:55 AM EDT 10/08/2024 1:05 AM EDT us Mickie Jefferson MD LAB BLOOD ORDERABLES Final Re sult [facility] [address] [place] [address] * (ABNORMAL) CMP (10/08/2024 12:55 AM EDT) Glucose, Plasma 235(H) 74 - 99 mg/dL 10/08/2024 1:37 AM EDT [facility] BUN, Plasma 44(H) 8 - 23 mg/dL 10/08/2024 1:37 AM EDT [facility] Creatinine, Plasma 1.52(H) 0.70 - 1.20 mg/dL 10/08/2024 1:37 AM EDT [facility] BUN/Creatinine Ratio 29 10/08/2024 1:37 AM EDT [facility] Sodium, Plasma 125(L) 136 - 145 mmol/L 10/08/2024 1:37 AM EDT [facility] Potassium, Plasma 3.8 3.6 - 4.9 mmol/L 10/08/2024 1:37 AM EDT [facility] Chloride, Plasma 93(L) 97 - 107 mmol/L 10/08/2024 1:37 AM EDT [facility] CO2, Plasma 14(L) 22 - 29 mmol/L 10/08/2024 1:37 AM EDT [facility] Anion Gap 18(H) 6 - 16 mmol/L 10/08/2024 1:37 AM EDT [facility] Total Calcium, Plasma 9.2 8.9 - 10.2 mg/dL 10/08/2024 1:37 AM EDT [facility] Total Protein 7.3 6.3 - 7.9 g/dL 10/08/2024 1:37 AM EDT [facility] Albumin, Plasma 3.9 3.5 - 5.2 g/dL 10/08/2024 1:37 AM EDT [facility] AST, Plasma 24 10 - 50 U/L 10/08/2024 1:37 AM EDT [facility] Comment:Hemolyzed, result ma y be falsely increased. ALT, Plasma 12 10 - 50 U/L 10/08/2024 1:37 AM EDT [facility] Alkaline Phosphatase, Plasma 89 40 - 115 U/L 10/08/2024 1:37 AM EDT [facility] Total Bilirubin, Plasma 0.8 0.2 - 1.1 mg/dL 10/08/2024 1:37 AM EDT [facility] eGFRcr 52.1 mL/min/1.7 3m*2 10/08/2024 1:37 AM EDT [facility] Comment:Reported eGFRcr in m L/min/1.73m2 is based the CKD-EPI 2020 equation that does not use a race coefficient. Blood Venous blood specimen / Unknown Venipuncture / Unknown 10/08/2024 12:55 AM EDT 10/08/2024 1:05 AM EDT us Mickie Jefferson MD LAB BLOOD ORDERABLES Final Re sult [facility] [address] [place] [address] documented in this encounter Visit Diagnoses Diagnosis [...] imaging, 1 dose, Starting on Sat10/08/24 at 0434, Until Sat10/08/24 at 0435, Routine, Imaging Protocol Orders Given 10/08/2024 4:35 AM EDT 100 mL magnesium sulfate IVPB 2 g 2 g, Intravenous, Once, 1 dose, On Sat10/08/24 at 0605, at 25 mL/hr, Administer over [...] 40 mg, Intravenous, Daily, First dose on Sat10/08/24 at 0900, Until Discontinued, Routine Given 10/09/2024 9:50 AM EDT 40 mg Given 10/08/2024 8:34 AM EDT 40 mg phenol (Chloraseptic) 1.4 % mouth/throat spray 1 spray 1 spray, Mouth/Throat, Every 2 hour PRN, sore throat, Instruct patient to spit out after 15 seconds., Starting on Sat10/08/24 at 1004 piperacillin-tazobactam (Zosyn) 4.5 g in sodium chloride 0.9% 100 mL IVPB (vial adapter required) 4.5 g, Intravenous, Every 6 hours, First dose on Sat10/08/24 at 0645, Until Discontinued, Routine New Bag [...] Zabrina 10/08/24 at 0600, Until Discontinued, Routine 0559 (Given [...] RN)1514 (Stopped - Provider: Michell Campa RN) potassium chloride IVPB 10 mEq 10 mEq, Intravenous, Every 1 hour, 6 doses, First dose on Sat10/09/24 at 0630, Last dose on Sat10/09/24 at 1130, Routine 0648 (New Bag - Prov ider: Jimbo Leavitt)0729 (Stopped - Provider: Michell Campa, JAN)0745 (New Bag - Provider: Michell Campa, JAN)0829 (Stopped - Provider: Michell Campa RN)0840 (New Bag - Provider: Michell Campa, JAN)0929 (Stopped - Provider: Michell Campa, RN)0930 (New Bag - Provider: Michell Campa, JAN)1029 (Stopped - Provider: Michell Campa RN)1030 (New Bag - Provider: Michell Campa, JAN)1130 (Due)1230 (Stopped - Provider: Michell Campa, JAN)1514 (Stopped - Provider: Michell Campa RN) sodium chloride 0.9 % flush 10 mL(Linked Group 1) 10 mL, Intravenous, Every 12 hours, First dose on Zabrina 10/08/24 at 0430, Until Discontinued, Routine 0526 (Given - Provider: Rachael Slade RN)1546 (Given - Provider: Franchesca Herrera, JAN) 0427 (Given - Provider: Jimbo Leavitt)1630 (Canceled Entry - Provider: Automatic Discharge Provider - Comment: Automatically canceled at discontinue of medication order) Continuous Medication Order 10/07/2024 10/08/2024 10/09/2024 dextrose 5 % and lactated Ringer's infusion 50 mL/hr, Intravenous, Continuous, Starting on Zabrina 10/08/24 at 0435, Until Sat10/09/24 at 1738, Routine 0453 (New Bag - Provider: Rachael Slade RN)1514 (New Bag - Provider: Franchesca Herrera, JAN) 0948 (Rate/Dose Change - Provider: Michell Campa RN)1513 (Stopped - Provider: Michell Campa, JAN) PRN [...] Intramuscular, Every 15 min PRN, Starting on Zabrina 10/08/24 at 1231, Until Sat10/09/24 at 1738, Routine, [...] documented as of this encounter Care Teams Rehabilitation Liaison Relationship Specialty Start Date End Date Tayo Jones MD [address] [place] [address] PCP - General 07/14/24 documented as of this encounter
--- OUTSIDE RECORDS SUMMARY | 2024-11-19 07:09 | XMS_ITS | Encounter Summary ---
Author Organization [facility] Address [address] [id number] Care Team Providers Care Tool Storage Attendant Name Role Phone Tayo Jones MD Primary Care Provider [phone] Reason for Referral * Imaging (Routine) - Closed Specialty Diagnoses / Procedures Referred By Samia pagan Referred To Contact Radiology Diagnoses Metastatic colon cancer to liver (CMS/HCC) Procedures CT Abdomen Pelvis w IV Contrast Farhad Castillo MD [address] [address] Phone: tel: fax: Referral ID Status Reason Start Date Expiration Date Visits Re quested Visits Authorized [id number] Closed 08/03/2024 02/02/2026 1 1 * Imaging (Routine) - Closed Specialty Diagnoses / Procedures Referred By Samia pagan Referred To Contact Radiology Diagnoses Metastatic colon cancer to liver (CMS/HCC) Procedures CT Chest w IV Contrast Farhad Castillo MD [address] [address] Phone: tel: fax: Referral ID Status Reason Start Date Expiration Date Visits Re quested Visits Authorized [id number] Closed 08/03/2024 02/02/2026 1 1 Reason for Visit * Imaging (Routine) - Closed Specialty Diagnoses / Procedures Referred By Samia t Referred To Contact Radiology Diagnoses Metastatic colon cancer to liver (CMS/HCC) Procedures CT Abdomen Pelvis w IV Contrast Farhad Castillo MD [address] [place] [phone] Phone: tel: fax: Referral ID Status Reason Start Date Expiration Date Visits Re quested Visits Authorized [id number] Closed 08/03/2024 02/02/2026 1 1 Encounter Details Date Type Department Care Team (Latest Contact Info) Description 11/19/2024 7:09 AM EDT - 11/19/2024 11:59 PM EDT Hospital Encounter [facility] CT [address] [place] [address] Metastatic colon cancer to liver [...] AM EDT Appointment Cardiac Imaging [address] [place] [address] 12/17/2024 9:30 AM EDT Appointment Cardiac Imaging [address] [place] [address] 12/20/2024 11:00 AM EDT Appointment [facility] [address] [place] [address] 12/24/2024 9:15 AM EDT Office Visit [facility] [address] [place] [address] Farhad Castillo MD [address] [address] documented as of this encounter Procedures Procedure [...] Total DLP (Dose-Length Product): 3353.28 mGy.cm (accession [id number]), 3353.28 mGy.cm (accession [id number]) Please note: The reported value represents the [...] Total DLP (Dose-Length Product): 3353.28 mGy.cm (accession [id number]),3353.28 mGy.cm (accession [id number]) Please note: The reported valuerepresents the total [...] cm. . Other previously noted lesion within hnzbaxa4B/8 remains difficult to clearly delineate. Unremarkable gallbladder.Stable [...] Total DLP (Dose-Length Product): 3353.28 mGy.cm (accession [id number]), 3353.28 mGy.cm (accession [id number]) Please note: The reported value represents the [...] Total DLP (Dose-Length Product): 3353.28 mGy.cm (accession [id number]),3353.28 mGy.cm (accession [id number]) Please note: The reported valuerepresents the total [...] cm. . Other previously noted lesion within pitagoh0U/8 remains difficult to clearly delineate. Unremarkable gallbladder.Stable [...] 11/19/2024 9:35 AM Final report signed by aD Trevino MD on 11/19/2024 10:42 AM Farhad [...] documented as of this encounter Care Teams Tool Storage Attendant Relationship Specialty Start Date End Date Tayo Jones MD [address] [place] [address] PCP - General 07/14/24 documented as of this encounter
--- OUTSIDE RECORDS SUMMARY | 2024-11-19 11:15 | XMS_ITS | Encounter Summary ---
Author Organization [facility] Address [address] [id number] Care Team Providers Care Insecticide Mixer Name Role Phone Tayo Jones MD Primary Care Provider [phone] Reason for Referral * Consultation (Routine) - Authorized Specialty Diagnoses / Procedures Referred By Samia pagan Referred To Contact General Surgery Diagnoses Metastatic colon cancer to liver (CMS/HCC) Farhad Castillo MD [address] [address] Phone: tel: fax: Heidi March MD [address] [place] [address] Phone: tel: fax: Referral ID Status Reason Start Date Expiration Date Visits Requested Visits Authorized [id number] Authorized Specialty Services Required 11/19/2024 05/21/2026 1 1 Scheduling Instructions Hernia repair possible combo surgery w/ Dr. Castillo * Imaging (Routine) - Authorized Specialty Diagnoses / Procedures Referred By Samia pagan Referred To Contact Cardiology Diagnoses High risk surgery, pre-operative cardiovascular examination Shortness of breath on exertion Procedures NM Myocardial Perfusion Stress Test Farhad Castillo MD [address] [address] Phone: tel: fax: Referral ID Status Reason Start Date Expiration Date V isits Requested Visits Authorized [id number] Authorized 11/19/2024 05/21/2026 1 1 * Imaging (Routine) - Authorized Specialty Diagnoses / Procedures Referred By Contomid t Referred To Contact Radiology Diagnoses Metastatic colon cancer to liver (CMS/HCC) Procedures MR Abdomen w and wo IV Contrast Farhad Castillo MD [address] [address] Phone: tel: fax: Referral ID Status Reason Start Date Expiration Date V isits Requested Visits Authorized [id number] Authorized 11/19/2024 05/21/2026 1 1 Reason for Visit * Reason Comments Routine Follow-up Encounter Details Date Type Department Care Team (Latest Contact Info) Description 11/19/2024 11:15 AM EDT Office Visit [facility] Multidisciplinary Oncology Clinic [address] [place] [phone] Farhad Castillo MD [address] [phone] Metastatic colon cancer to liver (CMS/HCC) (Primary [...] any time in the past 12 m [facility], were you homeless or living in a nursing home (including now)? No 10/09/2024 Utilities Answer Date Recorded In the past 12 months has th e Pay-Me, gas, oil, or water company threatened to [...] RIGHT COLON AND TERMINAL ILEUM, RIGHT HEMICOLECTOMY ([id number]; 11/09/2022): - INVASIVE MODERATELY DIFFERENTIATED ADENOCARCINOMA OF [...] Total DLP (Dose-Length Product): 3353.28 mGy.cm (accession [id number]), 3353.28 mGy.cm (accession [id number]) Please note: The reported value represents the [...] Upcoming Encounters Date Type Department Care Team ([facility] st Contact Info) Description 12/17/2024 8:00 AM EDT Appointment Cardiac Imaging [address] [place] [address] 12/17/2024 9:30 AM EDT Appointment Cardiac Imaging [address] [place] [address] 12/20/2024 11:00 AM EDT Appointment [facility] [address] [place] [address] 12/24/2024 9:15 AM EDT Office Visit [facility] Multid[facility] Oncology Clinic [address] [place] [address] Farhad Castillo MD [address] [address] Scheduled Orders Name Type Priority Associated Diagnoses [...] - 41.0 mg/dL 11/19/2024 12:19 PM EDT [facility] Blood Venous blood specimen / Unknown Venipuncture / Unknown 11/19/2024 11:26 AM EDT 11/19/2024 11:47 AM EDT Farhad Castillo MD LAB BLOOD ORDERABLES Final Result Performing Organization Address [facility] [place] [address] * (ABNORMAL) Hemoglobin A1c (11/19/2024 11:26 AM EDT) Hemoglobin A1c 7.3(H) <5.7 % 11/19/2024 12:49 PM EDT [facility] Blood Venous blood specimen / Unknown Venipuncture / Unknown 11/19/2024 11:26 AM EDT 11/19/2024 11:47 AM EDT Narrative [facility] - 11/19/2024 12:49 PM EDT HA1C Interpretive Data: Diagnosis of Diabetes: Diabetic > or = 6.5% Pre-diabetic 5.7 to 6.4% Non-diabetic < or = 5.6% Glycemic Targets for Type I and Type II Diabetics: Non- Adults <7.0% Adults <6.0% Children and Adolescents <7.5% Source: [place] [employer]. Standards of medical care in diabetes,2017. Diabetes Care.2017:40 (suppl 1):S1-S135. Farhad Castillo MD LAB BLOOD ORDERABLES Final Result Performing Organization Address City/[facility]/[place]IP [place] [address] * (ABNORMAL) CEA, Serum (11/19/2024 11:26 AM EDT) CEA, Serum 7.7(H) <4.0 ng/mL 11/19/2024 12:31 PM EDT [facility] Blood Venous blood specimen / Unknown Venipuncture / Unknown 11/19/2024 11:26 AM EDT 11/19/2024 11:47 AM EDT Narrative [facility] - 11/19/2024 12:31 PM EDT Normal range for smokers: < 5.5 ng/ml Normal range for non-smokers: <=4.0 ng/ml Performed by [employer] electrochemiluminescent immunoassay. Results obtained with different test methods or kits cannot be used interchangeably. us Farhad Castillo MD LAB BLOOD ORDERABLES Final Result [facility] [address] [place] [address] * (ABNORMAL) CBC W/O Differential (11/19/2024 11:26 AM EDT) WBC Count 8.37 3.70 - 10.30 10*3/uL LAB HEMATOLOGY METHOD 11/19/2024 11:55 AM EDT [facility] RBC Count 3.98(L) 4.60 - 6.10 10*6/uL LAB HEMATOLOGY METHOD 11/19/2024 11:55 AM EDT [facility] HGB 12.1(L) 13.7 - 17.5 g/dL LAB HEMATOLOGY METHOD 11/19/2024 11:55 AM EDT [facility] HCT 36.4(L) 40.0 - 51.0 % LAB HEMATOLOGY METHOD 11/19/2024 11:55 AM EDT [facility] Platelet Count 341 155 - 369 10*3/uL LAB HEMATOLOGY METHOD 11/19/2024 11:55 AM EDT [facility] MCV 92 79 - 98 fL LAB HEMATOLOGY METHOD 11/19/2024 11:55 AM EDT [facility] MCH 30.4 26.0 - 32.0 pg LAB HEMATOLOGY METHOD 11/19/2024 11:55 AM EDT [facility] MCHC 33.2 30.7 - 35.5 g/dL LAB HEMATOLOGY METHOD 11/19/2024 11:55 AM EDT [facility] RDW 13.9 11.5 - 14.5 % LAB HEMATOLOGY METHOD 11/19/2024 11:55 AM EDT [facility] MPV 8.7(L) 8.8 - 12.5 fL LAB HEMATOLOGY METHOD 11/19/2024 11:55 AM EDT [facility] nRBC 0.0 <=0.0 per 100 WBCs LAB HEMATOLOGY METHOD 11/19/2024 11:55 AM EDT [facility] Blood Venous blood specimen / Unknown Venipuncture / Unknown 11/19/2024 11:26 AM EDT 11/19/2024 11:47 AM EDT us Farhad Castillo MD LAB BLOOD ORDERABLES Final Result [facility] [address] [place] [address] * (ABNORMAL) Comprehensive Metabolic Panel, Plasma (11/19/2024 11:26 AM EDT) Glucose, Plasma 174(H) 74 - 99 mg/dL 11/19/2024 12:19 PM EDT [facility] BUN, Plasma 20 8 - 23 mg/dL 11/19/2024 12:19 PM EDT [facility] Creatinine, Plasma 1.06 0.70 - 1.20 mg/dL 11/19/2024 12:19 PM EDT [facility] BUN/Creatinine Ratio 19 11/19/2024 12:19 PM EDT [facility] Sodium, Plasma 132(L) 136 - 145 mmol/L 11/19/2024 12:19 PM EDT [facility] Potassium, Plasma 4.7 3.6 - 4.9 mmol/L 11/19/2024 12:19 PM EDT [facility] Chloride, Plasma 101 97 - 107 mmol/L 11/19/2024 12:19 PM EDT [facility] CO2, Plasma 18(L) 22 - 29 mmol/L 11/19/2024 12:19 PM EDT [facility] Anion Gap 13 6 - 16 mmol/L 11/19/2024 12:19 PM EDT [facility] Total Calcium, Plasma 9.3 8.9 - 10.2 mg/dL 11/19/2024 12:19 PM EDT [facility] Total Protein 6.9 6.3 - 7.9 g/dL 11/19/2024 12:19 PM EDT [facility] Albumin, Plasma 3.9 3.5 - 5.2 g/dL 11/19/2024 12:19 PM EDT [facility] AST, Plasma 30 10 - 50 U/L 11/19/2024 12:19 PM EDT [facility] ALT, Plasma 20 10 - 50 U/L 11/19/2024 12:19 PM EDT [facility] Alkaline Phosphatase, Plasma 90 40 - 115 U/L 11/19/2024 12:19 PM EDT [facility] Total Bilirubin, Plasma 0.4 0.2 - 1.1 mg/dL 11/19/2024 12:19 PM EDT [facility] eGFRcr 80.3 mL/min/1.7 3m*2 11/19/2024 12:19 PM EDT [facility] Comment:Reported eGFRcr in m L/min/1.73m2 is based the CKD-EPI 2020 equation that does not use a race coefficient. Blood Venous blood specimen / Unknown Venipuncture / Unknown 11/19/2024 11:26 AM EDT 11/19/2024 11:47 AM EDT Farhad Castillo MD LAB BLOOD ORDERABLES Final Result [facility] [address] [place] [address] documented in this encounter Visit Diagnoses Diagnosis [...] documented as of this encounter Care Teams Insecticide Mixer Relationship Specialty Start Date End Date Tayo Jones MD [address] [phone] PCP - General 07/14/24 documented as of this encounter
--- OUTSIDE RECORDS SUMMARY | 2024-12-01 09:33 | XMS_ITS | Encounter Summary ---
Author Organization Healthcare Address [address] [place] [address] Care Team Providers Care Ms Sql Server Developer Name Role Phone Tayo Jones MD Primary Care Provider [phone] Encounter Details Date Type Department Care Team ([facility] st Contact Info) Description 10/07/2024 Orders Only External Location [address] [place] [address] Provider, External Social History Tobacco Use Types [...] any time in the past 12 m [facility], were you homeless or living in [...] AM EDT Appointment Cardiac Imaging [address] [place] [address] 12/17/2024 9:30 AM EDT Appointment Cardiac Imaging [address] [place] [address] 12/20/2024 11:00 AM EDT Appointment [facility] Radiology [address] [place] [facility] [place] [address] 12/24/2024 9:15 AM EDT Office Visit [facility] [address] [place] [address] Farhad Castillo MD [address] [address] documented as of this encounter Procedures Procedure [...] documented as of this encounter Care Teams Ms Sql Server Developer Relationship Specialty Start Date End Date Tayo Jones MD 5 [place] [address] PCP - General 07/14/24 documented as of this encounter
--- OUTSIDE RECORDS SUMMARY | 2024-12-01 09:33 | XMS_ITS | Encounter Summary ---
Author Organization [facility] Address [address] [place] [address] Care Team Providers Care Stone Dresser Name Role Phone Tayo Jones MD Primary Care Provider [phone] Encounter Details Date Type Department Care Team [...] AM EDT Appointment Cardiac Imaging [address] [place] [address] 12/17/2024 9:30 AM EDT Appointment Cardiac Imaging [address] [place] [address] 12/20/2024 11:00 AM EDT Appointment [facility] Radiology [address] [place] [address] 12/24/2024 9:15 AM EDT Office Visit [facility] Mult[facility]isciplinary Oncology Clinic [address] [place] [address] Farhad Castillo MD [address] [address] documented as of this encounter Visit Diagnoses Not on filedocumented in this encounter Additional Health Concerns Assessment Noted Time A fall risk assessment has been complete d for the patient 07/23/2024 8:54 AM EDT A Body Mass Index follow-up plan has been documented for the patient 10/09/2024 3:15 PM EDT documented as of this encounter Care Teams Stone Dresser Relationship Specialty Start Date End Date Tayo Jones MD [address] [place] [address] PCP - General 07/14/24 documented as of this encounter
--- OUTSIDE RECORDS SUMMARY | 2024-12-01 09:33 | XMS_ITS | Encounter Summary ---
Author Organization [facility] Address [address] [place] [address] Care Team Providers Care Small Boat Engineer Name Role Phone Tayo Jones MD Primary Care Provider [phone] Encounter Details Date Type Department Care Team (Late st Contact Info) Description 05/06/2024 Orders Only External Location [address] [place] [address] Provider, External Social History Tobacco Use Types [...] EDT Appointment Cardiac Imaging [address] [place] [address] 12/17/2024 9:30 AM EDT Appointment Cardiac Imaging [address] [place] [address] 12/20/2024 11:00 AM EDT Appointment [facility] Radiology [address] [place] [address] 12/24/2024 9:15 AM EDT Office Visit [facility] [address] [place] [address] Farhad Castillo MD [address] [address] documented as of this encounter Procedures Procedure [...] on filedocumented in this encounter Care Teams Small Boat Engineer Relationship Specialty Start Date End Date Tayo Jones MD [address] [place] [address] PCP - General 07/14/24 documented as of this encounter
--- OUTSIDE RECORDS SUMMARY | 2024-12-01 09:33 | XMS_ITS | Encounter Summary ---
Author Organization [facility] Address [address] [place] [address] Care Team Providers Care Commercial Property Administrator Name Role Phone Tayo Jones MD Primary Care Provider [phone] Encounter Details Date Type Department Care Team (Late Contact Info) Description 07/16/2024 Lab Requisition [facility] [address] [place] [address] Farhad Castillo MD [address] [address] Other acute appendicitis without perforation [...] Department Care Team (Late Contact Info) Description 12/17/2024 8:00 AM EDT Appointment Cardiac Imaging [address] [place] [address] 12/17/2024 9:30 AM EDT Appointment Cardiac Imaging [address] [place] [address] 12/20/2024 11:00 AM EDT Appointment [facility] Radiology [address] [place] [address] 12/24/2024 9:15 AM EDT Office Visit [facility] [address] [place] [address] Farhad Castillo MD [address] [phone] documented as of this encounter Procedures Procedure Name Priority Date/Time Associated Diagnosis Comments SURGICAL PATHOLOGY CONSULT Routine 07/16/2024 1:13 PM EDT Other acute appendicitis without perforation or gangrene documented in this encounter Results * Surgical Pathology Consult (07/16/2024 1:13 PM EDT) Case Report Sugical Pathology Consult Case: [id number] Authorizing Provider: Farhad Castillo MD Collected: 07/16/20243 Ordering Location: [facility] Lab Received: 07/16/2024 1313 Pathologist: Constance Murphy MD Specimen: Colon, [id number] 07/17/2024 1:08 PM EDT [facility] Final Diagnosis RIGHT COLON AND TERMINAL ILEUM, RIGHT HEMICOLECTOMY ([id number]; 11/09/2022): - 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 - TUMOR BUDDING SCORE: HIGH (10 OR GREATER). - NO TUMOR SEEN IN TWENTY ONE LYMPH NODES (0/21). 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 07/17/2024 1:08 PM EDT [facility] Clinical Information K35.890 - Other acute appendicitis without perforation or gangrene [ICD-10-CM] 07/17/2024 1:08 PM EDT [facility] Gross Description A. [id number] Received along with a corresponding pathology report from [facility] are 29 slides labeled outside case: [id number] collected on 11/09/2022. 07/17/2024 1:08 PM EDT [facility] Note: A resident was involved in the service. I attest I examined the relevant preparations for the specimens and confirmed the diagnosis or interpretation. 07/17/2024 1:08 PM EDT [facility] Tissue Colon structure / Unknown 07/16/2024 1:13 PM EDT 07/16/2024 1:13 PM EDT us Farhad Castillo MD LAB PATHOLOGY ORDERABLES F inal Result [facility] [address] [place] [address] documented in this encounter Visit Diagnoses Diagnosis Other acute appendicitis without perforation or gangrene documented in this encounter Care Teams Commercial Property Administrator Relationship Specialty Start Date End Date Tayo Jones MD [address] [place] [address] PCP - General 07/14/24 documented as of this encounter
--- OUTSIDE RECORDS SUMMARY | 2024-12-01 09:33 | XMS_ITS | Encounter Summary ---
Author Organization [facility] Address [address] [place] [address] Care Team Providers Care Vascular Technologist Sonographer Name Role Phone Tayo Jones MD Primary Care Provider [phone] Encounter Details Date Type Department Care Team (Late st Contact Info) Description 06/15/2024 Orders Only External Location [address] [place] [address] Provider, External Social History Tobacco Use Types [...] AM EDT Appointment Cardiac Imaging [address] [place] [address] 12/17/2024 9:30 AM EDT Appointment Cardiac Imaging [address] [place] [address] 12/20/2024 11:00 AM EDT Appointment [facility] Radiology [address] [place] [address] 12/24/2024 9:15 AM EDT Office Visit [facility] [address] [place] [address] Farhad Castillo MD [address] [address] documented as of this encounter Procedures Procedure Name Priority Date/Time Associated Diagnosis Comments PET OUTSIDE IMAGES 06/15/2024 11:07 AM EST documented in this encounter Results * PET OUTSIDE IMAGES (06/15/2024 11:07 AM EST) Anatomical Region Laterality Modality Nuclear Medicine 06/15/2024 11:0 7 AM EST External Provider IMG NM PROCEDURES Final Result documented in this encounter Visit Diagnoses Not on filedocumented in this encounter Care Teams Vascular Technologist Sonographer Relationship Specialty Start Date End Date Tayo Jones MD [address] [place] [address] PCP - General 07/14/24 documented as of this encounter
--- OUTSIDE RECORDS SUMMARY | 2024-12-01 09:33 | XMS_ITS | Encounter Summary ---
Author Organization [facility] Address [address] [place] [address] Care Team Providers Care Bookmobile Driver Name Role Phone Tayo Jones MD Primary Care Provider [phone] Encounter Details Date Type Department Care Team (Late st Contact Info) Description 01/15/2023 Orders Only External Location [address] [place] [address] Provider, External Social History Tobacco Use Types [...] AM EDT Appointment Cardiac Imaging [address] [place] [address] 12/17/2024 9:30 AM EDT Appointment Cardiac Imaging [address] [place] [address] 12/20/2024 11:00 AM EDT Appointment [facility] Radiology [address] [place] [address] 12/24/2024 9:15 AM EDT Office Visit [facility] [address] [place] [address] Farhad Castillo MD [address] [address] documented as of this encounter Procedures Procedure [...] on filedocumented in this encounter Care Teams Bookmobile Driver Relationship Specialty Start Date End Date Tayo Jones MD [address] [place] [address] PCP - General 07/14/24 documented as of this encounter
--- OUTSIDE RECORDS SUMMARY | 2024-12-01 09:33 | XMS_ITS | Encounter Summary ---
Author Organization [facility] Address [address] [place] [address] Care Team Providers Care Food Service Lead Name Role Phone Tayo Jones MD Primary Care Provider [phone] Encounter Details Date Type Department Care Team (Late st Contact Info) Description 01/24/2023 Orders Only External Location [address] [place] [address] Sue Pope MD [address] [place], [place] [id number] Social History Tobacco Use Types Packs/Day Years [...] AM EDT Appointment Cardiac Imaging [address] [place] [address] 12/17/2024 9:30 AM EDT Appointment Cardiac Imaging [address] [place] [address] 12/20/2024 11:00 AM EDT Appointment [facility] [address] [place] [address] 12/24/2024 9:15 AM EDT Office Visit [facility] [address] [place] [address] Farhad Castillo MD [address] [address] documented as of this encounter Procedures Procedure [...] on filedocumented in this encounter Care Teams Food Service Lead Relationship Specialty Start Date End Date Tayo Jones MD [address] [place] [address] PCP - General 07/14/24 documented as of this encounter
--- OUTSIDE RECORDS SUMMARY | 2024-12-01 09:33 | XMS_ITS | Encounter Summary ---
Author Organization [facility] Address [address] [place] [address] Care Team Providers Care Guide Name Role Phone Tayo Jones MD Primary Care Provider [phone] Encounter Details Date Type Department Care Team [...] any time in the past 12 m onths, were you homeless or living in a [...] AM EDT Appointment Cardiac Imaging [address] [place] [address] 12/17/2024 9:30 AM EDT Appointment Cardiac Imaging [address] [place] [address] 12/20/2024 11:00 AM EDT Appointment [facility] Rad[facility] [address] [place] [address] 12/24/2024 9:15 AM EDT Office Visit [facility] [address] [place] [address] Farhad Castillo MD [address] [address] documented as of this encounter Visit Diagnoses Not on filedocumented in this encounter Additional Health Concerns Assessment Noted Time A fall risk assessment has been complete d for the patient 07/23/2024 8:54 AM EDT A Body Mass Index follow-up plan has been documented for the patient 10/09/2024 3:15 PM EDT documented as of this encounter Care Teams Guide Relationship Specialty Start Date End Date Tayo Jones MD [address] [place] [address] PCP - General 07/14/24 documented as of this encounter
--- OUTSIDE RECORDS SUMMARY | 2024-12-01 09:33 | XMS_ITS | Encounter Summary ---
Author Organization [facility] Address [address] [place] [address] Care Team Providers Care Hadoop Architect Name Role Phone Tayo Jones MD Primary Care Provider [phone] Encounter Details Date Type Department Care Team (Late st Contact Info) Description 01/15/2023 Orders Only External Location [address] [place] [address] Sue Pope MD [address] [place], [place] [id number] Social History Tobacco Use Types Packs/Day Years [...] AM EDT Appointment Cardiac Imaging [address] [place] [address] 12/17/2024 9:30 AM EDT Appointment Cardiac Imaging [address] [place] [address] 12/20/2024 11:00 AM EDT Appointment [facility] [address] [place] [address] 12/24/2024 9:15 AM EDT Office Visit [facility] [address] [place] [address] Farhad Castillo MD [address] [address] documented as of this encounter Procedures Procedure [...] on filedocumented in this encounter Care Teams Hadoop Architect Relationship Specialty Start Date End Date Tayo Jones MD [address] [place] [address] PCP - General 07/14/24 documented as of this encounter
--- OUTSIDE RECORDS SUMMARY | 2024-12-01 09:33 | XMS_ITS | Encounter Summary ---
Author Organization [facility] Address [address] [place] [address] Care Team Providers Care Supervisor Force Adjustment Name Role Phone Tayo Jones MD Primary Care Provider [phone] Encounter Details Date Type Department Care Team (Late st Contact Info) Description 05/06/2024 Orders Only External Location [address] [place] [address] Provider, External Social History Tobacco Use Types [...] AM EDT Appointment Cardiac Imaging [address] [place] [address] 12/17/2024 9:30 AM EDT Appointment Cardiac Imaging [address] [place] [address] 12/20/2024 11:00 AM EDT Appointment [facility] [address] [place] [address] 12/24/2024 9:15 AM EDT Office Visit [facility] [address] [place] [address] Farhad Castillo MD [address] [address] documented as of this encounter Procedures Procedure [...] filedocumented in this encounter Care Teams Supervisor Force Adjustment Relationship Specialty Start Date End Date Tayo Jones MD [address] [place] [address] PCP - General 07/14/24 documented as of this encounter
--- OUTSIDE RECORDS SUMMARY | 2024-12-01 09:33 | XMS_ITS | Encounter Summary ---
Author Organization [facility] Address [address] [place] [address] Care Team Providers Care Cellar Supervisor Name Role Phone Tayo Jones MD Primary Care Provider [phone] Encounter Details Date Type Department Care Team (Late st Contact Info) Description 02/18/2023 Orders Only External Location [address] [place] [address] Provider, External Social History Tobacco Use Types [...] AM EDT Appointment Cardiac Imaging [address] [place] [address] 12/17/2024 9:30 AM EDT Appointment Cardiac Imaging [address] [place] [address] 12/20/2024 11:00 AM EDT Appointment [facility] [address] [place] [address] 12/24/2024 9:15 AM EDT Office Visit [facility] [address] [place] [address] Farhad Castillo MD [address] [address] documented as of this encounter Procedures Procedure [...] on filedocumented in this encounter Care Teams Cellar Supervisor Relationship Specialty Start Date End Date Tayo Jones MD [address] [place] [address] PCP - General 07/14/24 documented as of this encounter
--- OUTSIDE RECORDS SUMMARY | 2024-12-01 09:33 | XMS_ITS | Encounter Summary ---
Author Organization [facility] Address [address] [place] [address] Care Team Providers Care Manager Orange Name Role Phone Tayo Jones MD Primary Care Provider [phone] Encounter Details Date Type Department Care Team (Late st Contact Info) Description 05/31/2023 Orders Only External Location [address] [place] [address] Provider, External Social History Tobacco Use Types [...] AM EDT Appointment Cardiac Imaging [address] [place] [address] 12/17/2024 9:30 AM EDT Appointment Cardiac Imaging [address] [place] [address] 12/20/2024 11:00 AM EDT Appointment [facility] [address] [place] [address] 12/24/2024 9:15 AM EDT Office Visit [facility] [address] [place] [address] Farhad Castillo MD [address] [address] documented as of this encounter Procedures Procedure [...] on filedocumented in this encounter Care Teams Manager Orange Relationship Specialty Start Date End Date Tayo Jones MD [address] [place] [address] PCP - General 07/14/24 documented as of this encounter
--- OUTSIDE RECORDS SUMMARY | 2024-12-01 09:34 | XMS_ITS | Encounter Summary ---
Author Organization [facility] Address [address] [place] [address] Care Team Providers Care Career Development Coordinator/Teacher Name Role Phone Jeremy Gil MD Unavailable Andres Alcantara DPM Unavailable Grant Fletcher MD Unavailable [phone] Niko Cueva MD Unavailable None, None Primary Care Provider UnavailGm Vigil DPM Unavailable Reina Byrd NP Unavailable Unavailable Encounter Details Date Type Department Care Team (Late st Contact Info) Description 09/08/2020 Clinical Update [facility] Physicians - Infectious Diseases, [facility] [address] [place] [address] [phone] Grant Fletcher MD [address] [place] [address] [id number] Social History Tobacco Use Types Packs/Day Years [...] (SGPT) (09/07/2020) ALT 5 U/L Plasma Result [facility] Grant Fletcher MD CHEMISTRY ORDERABLES Final Re sult * ALKALINE PHOSPHATASE (09/07/2020) Alkaline Phosphatase 98 U/L Plasma Result [facility] Grant Fletcher MD CHEMISTRY ORDERABLES Final Re sult * ALBUMIN (09/07/2020) Albumin 2.6 Plasma Result [facility] Grant Fletcher MD CHEMISTRY ORDERABLES Final Re [...] on filedocumented in this encounter Care Teams Career Development Coordinator/Teacher Relationship Specialty Start Date End Date None, None [address] [place] [address] PCP - General 10/26/20 Jeremy Gil MD [address] [place] [address] Room [address] [place] [address] Internal Medicine 08/19/20 Andres Alcantara DPM [address] [facility]. [address] [place] [address] Resident Podiatry 08/22/20 Grant Fletcher MD [address] [facility] [address] [place] [address] Infectious Diseases 09/08/20 Niko Cueva MD [address] [facility] [address] [place] [address] Vascular Surgery 09/16/20 Gm Flor DPM [address] [facility]. [address] [place], [place] [id number] Podiatry 11/01/20 Reina Byrd NP [address] [facility] [place] [address] Nurse Practitioner Vascular Surgery 11/30/20 documented as of this encounter
--- OUTSIDE RECORDS SUMMARY | 2024-12-01 09:34 | XMS_ITS | Encounter Summary ---
Author Organization [facility] Address [address] [place] [address] Care Team Providers Care Ironer Name Role Phone Tayo Jones MD Primary Care Provider [phone] Encounter Details Date Type Department Care Team [...] in the past [address] [facility], were you homeless or living [...] all 11/19/2024 10:49 AM EDT Jr Amaro T Patient Health Questionnaire-2 Score 0 11/19/2024 10:49 AM EDT Jr Amaro documented as of this encounter Plan of Treatment Upcoming Encounters Date Type Department Care Team (Late st Contact Info) Description 12/17/2024 8:00 AM EDT Appointment Cardiac Imaging [address] [place] [address] 12/17/2024 9:30 AM EDT Appointment Cardiac Imaging [address] [place] [address] 12/20/2024 11:00 AM EDT Appointment [facility] [address] [place] [address] 12/24/2024 9:15 AM EDT Office Visit [facility] [address] [place] [address] Farhad Castillo MD [address] [phone] documented as of this encounter Visit Diagnoses Not on filedocumented in this encounter Additional Health Concerns Assessment Noted Time A fall risk assessment has been complete d for the patient 07/23/2024 8:54 AM EDT A Body Mass Index follow-up plan has been documented for the patient 11/24/2024 5:29 PM EDT documented as of this encounter Care Teams Ironer Relationship Specialty Start Date End Date Tayo Jones MD [address] [place] [address] PCP - General 07/14/24 documented as of this encounter
--- OUTSIDE RECORDS SUMMARY | 2024-12-01 09:34 | XMS_ITS ---
Author Organization [facility] Address [address] [place] [address] Care Team Providers Care Wood Heel Attacher Name Role Phone Tayo Jones MD Primary Care Provider Active Problems Problem Noted Date Diagnosed Date [...]
--- OUTSIDE RECORDS SUMMARY | 2024-12-01 09:34 | XMS_ITS | Clinical Summary ---
Author Organization [facility] Address [address] [place] [address] Care Team Providers Care Fellmongery Worker Name Role Phone Tayo Jones MD Primary Care Provider [phone] Allergies No known active allergies Medications carvedilol [...] Office Visit [facility] [address] [place] [phone] Farhad Castillo MD Metastatic colon cancer to liver (CMS/HCC) (Primary Dx); High risk surgery, pre-operative cardiovascular examination; Shortness of breath on exertion 11/19/2024 7:09 AM EDT - 11/19/2024 11:59 PM EDT Hospital Encounter [facility] [address] [place] [address] Metastatic colon cancer to liver (CMS/HCC) Discharge Disposition: Home or Self Care 11/19/2024 Travel 10/09/2024 Travel 10/08/2024 12:10 AM EDT - 10/09/2024 3:38 PM EDT Hospital Encounter [facility] Emergency Department [address] [place] [address] Mickie Jfeferson MD Hourigan, Jon S, MD Small bowel obstruction (CMS/HCC) (Primary Dx); Abdominal pain, generalized Discharge Disposition: Half-Way Facility 10/08/2024 Travel 10/07/2024 Orders Only External Location [address] [place] [address] Provider, External from Last 3 [...] any time in the past 12 m [facility], were you homeless or living in a senior care (including now)? No 10/09/2024 Utilities Answer Date Recorded In the past 12 months has th e [employer], gas, oil, or water [employer] threatened to shut off services in your [...] AM EDT Appointment Cardiac Imaging [address] [place] [address] 12/17/2024 9:30 AM EDT Appointment Cardiac Imaging [address] [place] [address] 12/20/2024 11:00 AM EDT Appointment [facility] Radiology [address] [place] [address] 12/24/2024 9:15 AM EDT Office Visit [facility] [address] [place] [address] Farhad Castillo MD [address] [address] Health Maintenance Due Date Last Done Comments [facility]-Infant/Child/Adol SDOH Screenings 1965 Diabetes: Dental Exam 1974 [facility]-DTaP,Tdap,and Td Vaccines (1 - Tdap) 1983 [facility]-Hepatitis A Vaccines (1 of 2 - Risk 2-dose series) 1983 [facility]-Zoster Vaccines (1 of 2) 1983 [facility]-AFZFA-51 Vaccine ( season) 2023 01/15/2022, 03/28/2021, 07/27/2020, Additional history exists [facility]-RSV Vaccine: 60+ Years or (1 - Risk 60-74 years 1-dose series) 2024 [facility]-Influenza Vaccine (#1) 2024 [facility]-Diabetes: Hemoglobin A1C 02/18/2025 11/19/2024, 10/08/2024, 07/23/2024 [facility]- SDOH Screenings 04/10/2025 [facility]-Adult SDOH Screenings 04/10/2025 10/09/2024 [facility]-Depression Screening 11/19/2025 11/19/2024 [facility]-Pneumococcal Vaccine: 50+ Years Completed 05/27/2024, 09/12/2020 [facility]-HIV Screening Completed 10/08/2024 [facility]-Hepatitis C Screening Completed 10/08/2024 [facility]-Obesity Intervention Completed 025, 10/07/2024, 07/23/2024 HPV Vaccines Aged Out No longer [...] this topic Medical Devices Implanted Type Area Buttermilk Drier Operator Device Identifier Shelf Expiration Date Model / Serial / Lot Port Clearvue Power 8fr - S. - [id number] Implanted:Qty : 1 on 07/31/2024 by Farhad Castillo MD at [facility] Other Medication Pump Left: Chest [employer]-[id number] 07/13/2025 [id number] / . / [id number] Procedures Procedure Name Priority Date/Time Associated Diagnosis [...] LAB HEMATOLOGY METHOD 11/19/2024 11:55 AM EDT [facility] RBC Count 3.98(L) 4.60 - 6.10 10*6/uL LAB HEMATOLOGY METHOD 11/19/2024 11:55 AM EDT [facility] HGB 12.1(L) 13.7 - 17.5 g/dL LAB HEMATOLOGY METHOD 11/19/2024 11:55 AM EDT [facility] HCT 36.4(L) 40.0 - 51.0 % LAB HEMATOLOGY METHOD 11/19/2024 11:55 AM EDT [facility] Platelet Count 341 155 - 369 10*3/uL LAB HEMATOLOGY METHOD 11/19/2024 11:55 AM EDT [facility] MCV 92 79 - 98 fL LAB HEMATOLOGY METHOD 11/19/2024 11:55 AM EDT [facility] MCH 30.4 26.0 - 32.0 pg LAB HEMATOLOGY METHOD 11/19/2024 11:55 AM EDT [facility] MCHC 33.2 30.7 - 35.5 g/dL LAB HEMATOLOGY METHOD 11/19/2024 11:55 AM EDT [facility] RDW 13.9 11.5 - 14.5 % LAB HEMATOLOGY METHOD 11/19/2024 11:55 AM EDT [facility] MPV 8.7(L) 8.8 - 12.5 fL LAB HEMATOLOGY METHOD 11/19/2024 11:55 AM EDT [facility] nRBC 0.0 <=0.0 per 100 WBCs LAB HEMATOLOGY METHOD 11/19/2024 11:55 AM EDT [facility] Blood Venous blood specimen / Unknown Venipuncture / Unknown 11/19/2024 11:26 AM EDT 11/19/2024 11:47 AM EDT Farhad Castillo MD LAB BLOOD ORDERABLES Final Result [facility] [address] [place] [address] * Prealbumin, Plasma (11/19/2024 11:26 AM EDT) Prealbumin, Plasma 25.7 20.0 - 41.0 mg/dL 11/19/2024 12:19 PM EDT [facility] Blood Venous blood specimen / Unknown Venipuncture / Unknown 11/19/2024 11:26 AM EDT 11/19/2024 11:47 AM EDT Farhad Castillo MD LAB BLOOD ORDERABLES Final Result [facility] [address] [place] [address] * (ABNORMAL) Hemoglobin A1c (11/19/2024 11:26 AM EDT) Only the most recent of2 resultswithin the time period is included. Hemoglobin A1c 7.3(H) <5.7 % 11/19/2024 12:49 PM EDT [facility] Blood Venous blood specimen / Unknown Venipuncture / Unknown 11/19/2024 11:26 AM EDT 11/19/2024 11:47 AM EDT Narrative [facility] - 11/19/2024 12:49 PM EDT HA1C Interpretive Data: Diagnosis of Diabetes: Diabetic > or = 6.5% Pre-diabetic 5.7 to 6.4% Non-diabetic < or = 5.6% Glycemic Targets for Type I and Type II Diabetics: Non- Adults <7.0% Adults <6.0% Children and Adolescents <7.5% Source: [place] [employer]. Standards of medical care in diabetes,2017. Diabetes Care.2017:40 (suppl 1):S1-S135. Farhad Castillo MD LAB BLOOD ORDERABLES Final Result Performing Organization Address [facility] Co de Phone Number [facility] [address] [place] [address] * (ABNORMAL) CEA, Serum (11/19/2024 11:26 AM EDT) CEA, Serum 7.7(H) <4.0 ng/mL 11/19/2024 12:31 PM EDT [facility] Blood Venous blood specimen / Unknown Venipuncture / Unknown 11/19/2024 11:26 AM EDT 11/19/2024 11:47 AM EDT Narrative [facility] - 11/19/2024 12:31 PM EDT Normal range for smokers: < 5.5 ng/ml Normal range for non-smokers: <=4.0 ng/ml Performed by [employer] electrochemiluminescent immunoassay. Results obtained with different test methods or kits cannot be used interchangeably. Farhad Castillo MD LAB BLOOD ORDERABLES Final Result Performing Organization Address [facility] Co de Phone Number [facility] [address] [place] [address] * (ABNORMAL) Comprehensive Metabolic Panel, Plasma (11/19/2024 11:26 AM EDT) Only the most recent of2 resultswithin the time period is included. Glucose, Plasma 174(H) 74 - 99 mg/dL 11/19/2024 12:19 PM EDT [facility] BUN, Plasma 20 8 - 23 mg/dL 11/19/2024 12:19 PM EDT [facility] Creatinine, Plasma 1.06 0.70 - 1.20 mg/dL 11/19/2024 12:19 PM EDT [facility] BUN/Creatinine Ratio 19 11/19/2024 12:19 PM EDT [facility] Sodium, Plasma 132(L) 136 - 145 mmol/L 11/19/2024 12:19 PM EDT [facility] Potassium, Plasma 4.7 3.6 - 4.9 mmol/L 11/19/2024 12:19 PM EDT [facility] Chloride, Plasma 101 97 - 107 mmol/L 11/19/2024 12:19 PM EDT [facility] CO2, Plasma 18(L) 22 - 29 mmol/L 11/19/2024 12:19 PM EDT [facility] Anion Gap 13 6 - 16 mmol/L 11/19/2024 12:19 PM EDT [facility] Total Calcium, Plasma 9.3 8.9 - 10.2 mg/dL 11/19/2024 12:19 PM EDT [facility] Total Protein 6.9 6.3 - 7.9 g/dL 11/19/2024 12:19 PM EDT [facility] Albumin, Plasma 3.9 3.5 - 5.2 g/dL 11/19/2024 12:19 PM EDT [facility] AST, Plasma 30 10 - 50 U/L 11/19/2024 12:19 PM EDT [facility] ALT, Plasma 20 10 - 50 U/L 11/19/2024 12:19 PM EDT [facility] Alkaline Phosphatase, Plasma 90 40 - 115 U/L 11/19/2024 12:19 PM EDT [facility] Total Bilirubin, Plasma 0.4 0.2 - 1.1 mg/dL 11/19/2024 12:19 PM EDT [facility] eGFRcr 80.3 mL/min/1.7 3m*2 11/19/2024 12:19 PM EDT [facility] Comment:Reported eGFRcr in m L/min/1.73m2 is based the CKD-EPI 2020 equation that does not use a race coefficient. Blood Venous blood specimen / Unknown Venipuncture / Unknown 11/19/2024 11:26 AM EDT 11/19/2024 11:47 AM EDT us Farhad Castillo MD LAB BLOOD ORDERABLES Final Result [facility] [address] [place] [address] * CT Abdomen Pelvis w IV Contrast [...] Total DLP (Dose-Length Product): 3353.28 mGy.cm (accession [id number]), 3353.28 mGy.cm (accession [id number]) Please note: The reported value represents the [...] Total DLP (Dose-Length Product): 3353.28 mGy.cm (accession [id number]),3353.28 mGy.cm (accession [id number]) Please note: The reported valuerepresents the total [...] cm. . Other previously noted lesion within niixsus5A/8 remains difficult to clearly delineate. Unremarkable gallbladder.Stable [...] Total DLP (Dose-Length Product): 3353.28 mGy.cm (accession [id number]), 3353.28 mGy.cm (accession [id number]) Please note: The reported value represents the [...] Total DLP (Dose-Length Product): 3353.28 mGy.cm (accession [id number]),3353.28 mGy.cm (accession [id number]) Please note: The reported valuerepresents the total [...] cm. . Other previously noted lesion within ihyobrg8X/8 remains difficult to clearly delineate. Unremarkable gallbladder.Stable [...] Comment 10/09/2024 12:12 PM EDT [facility] Sales Utility Representative ID Alyx, Julia 025 12:12 PM EDT HEALTH[facility]ARE LAB Device ID [id number] 10/09/2024 12:12 PM EDT [facility] Specimen Type POC Capillary 10/09/2024 12:12 PM EDT [facility] Blood Capillary blood specimen / Unknown 10/09/2024 12:08 PM EDT 10/09/2024 12:12 PM EDT us Jj Carson MD LAB POINT OF CARE TE ST DOCKED DEVICE UNSOLICITED RESULTS Final Result Performing Organization Address City/State/[facility] Co de Phone Number [facility] [address] [place], [place] [address] * XR Abdomen 1 View (10/09/2024 9:41 [...] Joe MD on 10/09/2024 9:54 AM us Jj Carson MD IMG XR PROCEDURES Final Result * (ABNORMAL) Basic metabolic panel (10/09/2024 4:28 AM EDT) Only the most recent of2 resultswithin the time period is included. Glucose, Plasma 286(H) 74 - 99 mg/dL 10/09/2024 5:48 AM EDT [facility] BUN, Plasma 36(H) 8 - 23 mg/dL 10/09/2024 5:48 AM EDT [facility] Creatinine, Plasma 1.45(H) 0.70 - 1.20 mg/dL 10/09/2024 5:48 AM EDT [facility] BUN/Creatinine Ratio 25 10/09/2024 5:48 AM EDT [facility] Sodium, Plasma 131(L) 136 - 145 mmol/L 10/09/2024 5:48 AM EDT [facility] Potassium, Plasma 3.4(L) 3.6 - 4.9 mmol/L 10/09/2024 5:48 AM EDT [facility] Comment:Hemolyzed, result ma y be falsely increased. Chloride, Plasma 99 97 - 107 mmol/L 10/09/2024 5:48 AM EDT [facility] CO2, Plasma 17(L) 22 - 29 mmol/L 10/09/2024 5:48 AM EDT [facility] Anion Gap 15 6 - 16 mmol/L 10/09/2024 5:48 AM EDT [facility] Total Calcium, Plasma 8.8(L) 8.9 - 10.2 mg/dL 10/09/2024 5:48 AM EDT [facility] eGFRcr 55.2 mL/min/1.7 3m*2 10/09/2024 5:48 AM EDT [facility] Comment:Reported eGFRcr in m L/min/1.73m2 is based the CKD-EPI 2020 equation that does not use a race coefficient. Blood Venous blood specimen / Unknown Venipuncture / Unknown 10/09/2024 4:28 AM EDT 10/09/2024 5:03 AM EDT us Eva Barnes DIRECTOR FUNDS DEVELOPMENT, DNP LAB BLOOD ORDERABLE S Final Result [facility] [address] [place] [address] * XR Gastrograffin Challenge (10/09/2024 1:17 AM [...] - 4.5 mg/dL 10/08/2024 6:00 AM EDT [facility] Blood Venous blood specimen / Unknown Venipuncture / Unknown 10/08/2024 4:59 AM EDT 10/08/2024 5:16 AM EDT us Jj Carson MD LAB BLOOD ORDERABLES Final Res ult [facility] [address] [place] [address] * (ABNORMAL) Magnesium, Plasma (10/08/2024 4:59 AM EDT) Only the most recent of2 resultswithin the time period is included. Magnesium, Plasma 1.7(L) 1.9 - 2.4 mg/dL 10/08/2024 6:00 AM EDT [facility] Blood Venous blood specimen / Unknown Venipuncture / Unknown 10/08/2024 4:59 AM EDT 10/08/2024 5:16 AM EDT us Jj Carson MD LAB BLOOD ORDERABLES Final Res ult Performing Organization Address City/[facility]/ZIP Co de Phone Number [facility] [address] [place] [address] * EKG now - STAT (adult) (10/08/2024 12:55 AM EDT) EKG DIAGNOSIS CLASS Abnormal MUSE ECG Ventricular Rate 85 BPM MUSE ECG Atrial Rate 85 BPM MUSE ECG AZ Interval 168 ms MUSE ECG QRSD Interval 162 ms MUSE ECG QT Interval 442 ms MUSE ECG QTC Interval 525 ms MUSE ECG P [place] 16 degrees MUSE ECG R [place] -32 degrees MUSE ECG T Wave [place] 47 degrees MUSE ECG Diagnosis Normal sinus rhythm MUSE ECG Diagnosis Left axis deviation in the presence of LAFB MUSE ECG Diagnosis Right bundle branch block Bifascicular block MUSE ECG Diagnosis Minimal voltage criteria for LVH, may be normal variant ( R in aVL ) MUSE ECG Diagnosis Abnormal ECG MUSE ECG Diagnosis MUSE ECG Diagnosis Confirmed by Adarsh Pichardo ([id number]) on 10/08/2024 10:50:58 AM MUSE ECG 10/08/2024 12:5 5 AM EDT 10/08/2024 10:50 AM EDT us Mickie Jefferson MD ECG ORDERABLES Final Result Performing Organization Address City/[facility]/ZIP Co de Phone Number MUSE ECG * ED HIV 1/2 Antibody/Antigen Screen w/Reflex to HIV 1/2 Differentiation (10/08/2024 12:55 AM EDT) HIV 1 & 2 Antibody/Antigen Screen Non Reactive Non Reactive 10/08/2024 2:00 AM EDT [facility] Comment:Screening for HIV 1 & 2 antibodies, and P24 antigen is NONREACTIVE. No confirmatory testing is required. Blood Venous blood specimen / Unknown Venipuncture / Unknown 10/08/2024 12:55 AM EDT 10/08/2024 1:11 AM EDT us Mickie Jefferson MD LAB BLOOD ORDERABLES Final Re sult Performing Organization Address [facility] Co de Phone Number [facility] [address] [place] [address] * Lactic acid, venous (10/08/2024 12:55 AM EDT) Lactate, Venous, Whole Blood 1.1 0.5 - 2.2 mmol/L LAB HEMATOLOGY METHOD 10/08/2024 1:10 AM EDT [facility] Blood Venous blood specimen / Unknown Venipuncture / Unknown 10/08/2024 12:55 AM EDT 10/08/2024 1:07 AM EDT us Mickie Jefferson MD LAB BLOOD ORDERABLES Final Re sult Performing Organization Address [facility] Co de Phone Number [facility] [address] [place] [address] * Hepatitis C Antibody - ED (10/08/2024 12:55 AM EDT) Pathologist [facility] Hepatitis C Antibody Negative Negative 10/08/2024 2:16 AM EDT [facility] Blood Venous blood specimen / Unknown Venipuncture / Unknown 10/08/2024 12:55 AM EDT 10/08/2024 1:11 AM EDT us Mickie Jefferson MD LAB BLOOD ORDERABLES Final Re sult Performing Organization Address [facility] Co de Phone Number [facility] [address] [place] [address] * (ABNORMAL) PT-INR (10/08/2024 12:55 AM EDT) Prothrombin Time 14.7(H) 12.0 - 14.3 sec 10/08/2024 1:27 AM EDT [facility] INR 1.2(H) 0.9 - 1.1 10/08/2024 1:27 AM EDT [facility] Blood Venous blood specimen / Unknown Venipuncture / Unknown 10/08/2024 12:55 AM EDT 10/08/2024 1:05 AM EDT Narrative [facility] - 10/08/2024 1:27 AM EDT OPTIMAL INR RANGES FOR PATIENT ON ORAL ANTICOAGULANT THERAPY Prevention of venous thromboembolism INR 2.0 to 3.0 In patients with heart disease: Atrial fibrillation INR 2.0 to 3.0 Valvular heart disease INR 2.0 to 3.0 Tissue heart valves INR 2.0 to 3.0 Mechanical prosthetic valves INR 2.5 to 3.5 Prevention of recurrent NV INR 2.5 to 3.5 us Mickie Jefferson MD LAB BLOOD ORDERABLES Final Re sult [facility] [address] [place] [address] * (ABNORMAL) CBC w/diff (10/08/2024 12:55 AM EDT) WBC Count 11.32(H) 3.70 - 10.30 10*3/uL LAB HEMATOLOGY METHOD 10/08/2024 1:09 AM EDT [facility] RBC Count 4.20(L) 4.60 - 6.10 10*6/uL LAB HEMATOLOGY METHOD 10/08/2024 1:09 AM EDT [facility] HGB 13.9 13.7 - 17.5 g/dL LAB HEMATOLOGY METHOD 10/08/2024 1:09 AM EDT [facility] HCT 38.0(L) 40.0 - 51.0 % LAB HEMATOLOGY METHOD 10/08/2024 1:09 AM EDT [facility] Platelet Count 293 155 - 369 10*3/uL LAB HEMATOLOGY METHOD 10/08/2024 1:09 AM EDT [facility] MCV 91 79 - 98 fL LAB HEMATOLOGY METHOD 10/08/2024 1:09 AM EDT [facility] MCH 33.1(H) 26.0 - 32.0 pg LAB HEMATOLOGY METHOD 10/08/2024 1:09 AM EDT [facility] MCHC 36.6(H) 30.7 - 35.5 g/dL LAB HEMATOLOGY METHOD 10/08/2024 1:09 AM EDT [facility] RDW 13.5 11.5 - 14.5 % LAB HEMATOLOGY METHOD 10/08/2024 1:09 AM EDT [facility] MPV 10.0 8.8 - 12.5 fL LAB HEMATOLOGY METHOD 10/08/2024 1:09 AM EDT [facility] nRBC 0.0 <=0.0 per 100 WBCs LAB HEMATOLOGY METHOD 10/08/2024 1:09 AM EDT [facility] Differential Type Automated LAB HEMATOLOGY METHOD 10/08/2024 1:09 AM EDT [facility] Neutrophils % 70 % LAB HEMATOLOGY METHOD 10/08/2024 1:09 AM EDT [facility] Lymphocytes % 10 % LAB HEMATOLOGY METHOD 10/08/2024 1:09 AM EDT [facility] Monocytes % 18 % LAB HEMATOLOGY METHOD 10/08/2024 1:09 AM EDT [facility] Eosinophils % 0 % LAB HEMATOLOGY METHOD 10/08/2024 1:09 AM EDT [facility] Basophils % 1 % LAB HEMATOLOGY METHOD 10/08/2024 1:09 AM EDT [facility] Immature Granulocytes % 1 % LAB HEMATOLOGY METHOD 10/08/2024 1:09 AM EDT [facility] Neutrophils Absolute 7.97(H) 1.60 - 6.10 10*3/uL LAB HEMATOLOGY METHOD 10/08/2024 1:09 AM EDT [facility] Lymphocytes Absolute 1.17(L) 1.20 - 3.90 10*3/uL LAB HEMATOLOGY METHOD 10/08/2024 1:09 AM EDT [facility] Monocytes Absolute 2.01(H) 0.30 - 0.90 10*3/uL LAB HEMATOLOGY METHOD 10/08/2024 1:09 AM EDT [facility] Eosinophils Absolute 0.02 0.00 - 0.50 10*3/uL LAB HEMATOLOGY METHOD 10/08/2024 1:09 AM EDT [facility] Basophils Absolute 0.07 0.00 - 0.10 10*3/uL LAB HEMATOLOGY METHOD 10/08/2024 1:09 AM EDT [facility] Immature Granulocytes Absolute 0.08(H) 0.00 - 0.06 10*3/uL LAB HEMATOLOGY METHOD 10/08/2024 1:09 AM EDT [facility] Blood Venous blood specimen / Unknown Venipuncture / Unknown 10/08/2024 12:55 AM EDT 10/08/2024 1:05 AM EDT Narrative [facility] - 10/08/2024 1:09 AM EDT Therapeutic decision making should be based on absolute values, rather than percentages. us Mickie Jefferson MD LAB BLOOD ORDERABLES Final Re sult Performing Organization Address City/[facility]/ZIP Co de Phone Number [facility] [address] [place] [address] * Type and screen (10/08/2024 12:55 AM EDT) ABO/Rh A Positive 10/08/2024 12:50 AM EDT BLOOD BANK Antibody Screen Negative 10/08/2024 12:50 AM EDT BLOOD BANK Specimen Expiration 10/11/2024 23:59 10/08/2024 12:50 AM EDT BLOOD BANK Blood Venous blood specimen / Unknown Venipuncture / Unknown 10/08/2024 12:55 AM EDT 10/08/2024 1:05 AM EDT us Mickie Jefefrson MD LAB BLOOD BANK TEST ORDERABLE S Final Result Performing Organization Address [facility] de Phone Number BLOOD BANK [address] [place] [address], [place] * CT OUTSIDE IMAGES (10/07/2024 7:58 PM EDT) Anatomical Region Laterality Modality Computed Tomogra phy 10/07/2024 7:58 PM EDT us External Provider IMG CT PROCEDURES Final Result from Last 3 Months Insurance [place] Advance Directives * Full Code (Latest Code Status on File) Date Activated Date Inactivated Comments 10/08/2024 4:28 AM 10/09/2024 5:43 PM Question Answer Comments I have reviewed the capacity from the link above and, if needed, have updated to appropriate status: Yes Care Teams Fellmongery Worker Relationship Specialty Start Date End Date Tayo Jones MD [address] [place] [address] PCP - General 07/14/24
--- OUTSIDE RECORDS SUMMARY | 2024-12-01 09:34 | XMS_ITS | Clinical Summary ---
Author Organization [facility] Address [address] [place] [address] Care Team Providers Care Public [employer] Teacher Name Role Phone Jeremy Gil MD Unavailable Andres Alcantara DPM Unavailable [phone] Grant Fletcher MD Unavailable Niko Cueva MD Unavailable None, None Primary Care Provider UnavailGm Vigil DPM Unavailable Reina Byrd NP Unavailable Unavailable Allergies No known active allergies Medications Insulin Glargine (Lantus) 100 unit/mL (3 mL) Solostar INPNIndications :Type 2 diabetes mellitus with hyperglycemia, with long-term current use of insulin ([facility]) 16 Units by Subcutaneous route [...] - 1-dose 75+ series) 2039 Insurance MEDICAID [place] Advance Directives For more information, please contact: [phone] * Full Code (Latest Code Status on File) Date Activated Date Inactivated Comments 08/19/2020 3:05 AM No automated ch est compression devices for VAD Patients Care Teams Public School Teacher Relationship Specialty Start Date End Date None, None [address] [place] [address] PCP - General 10/26/20 Jeremy Gil MD [address] [facility] [address] [place] [address] Internal Medicine 08/19/20 Andres Alcantara DPM [address] [facility] [place] [address] Resident Podiatry 08/22/20 Grant Fletcher MD [address] [place] [address]. [address] [place] [address] Infectious Diseases 09/08/20 Niko Cueva MD [facility] [address] [place] [address] Vascular Surgery 09/16/20 Gm Flor DPM [address] [place] [address] [place] [address] Podiatry 11/01/20 Reina Byrd NP [address] [place] [address] [place] [address] Nurse Practitioner Vascular Surgery 11/30/20
[2024-12-01 10:01] LABS: Hematocrit 33.9 % (42.0-52.0); Hemoglobin 10.9 g/dL (14.1-18.0); Immature Granulocytes % 1.0 %; Mean Corpuscular HGB Conc 32.2 g/dL (31.8-35.4); Mean Corpuscular Hemoglobin 30.0 pg (27.0-31.2); Mean Corpuscular Volume 93.4 fl (80-94); Nucleated Red Blood Cells % 0 %; Platelet Count 254 K/mm3 (142-424); Red Blood Count 3.63 M/mm3 (4.60-6.20); Red Cell Distribution Width-SD 46.8 fL; White Blood Count 8.3 K/mm3 (4.8-10.8)
[2024-12-01 10:16] LABS: Alanine Aminotransferase 16 U/L (12-78); Albumin Level 3.5 g/dl (3.5-5.0); Albumin/Globulin Ratio 1.4 (1.1-1.8); Alkaline Phosphatase 74 U/L (38-126); Anion Gap 12.9 mEq/L (5-15); Aspartate Amino Transferase 28 U/L (17-59); Bilirubin,Total 0.3 mg/dl (0.2-1.3); Blood Urea Nitrogen 16 mg/dl (9-20); Calcium 8.4 mg/dl (8.4-10.2); Carbon Dioxide 22 mmol/L (22.0-30.0); Chloride 102 mmol/L (98-107); Creatinine,Serum 1.00 mg/dl (0.66-1.25); Estimated Glomerular Filt Rate 76 ml/min (>60); GFR (African American) 92 ML/MIN (>60); Globulin 2.5 g/dL (1.3-3.2); Glucose 155 mg/dl (74-100); Potassium 3.9 mmoL/L (3.5-5.1); Sodium 133 mmol/L (136-145); Total Protein,Serum 6.0 g/dl (6.3-8.2)
[2024-12-01] MEDS: DEXAMETHASONE 4MG TABLET 12 MG (10:46)
[2024-12-01] MEDS: 0.9 % SODIUM CHLORIDE 50 ML 100 ML IV (10:46)
[2024-12-01] MEDS: ONDANSETRON 4MG ODT 16 MG (10:46)
[2024-12-01] MEDS: POTASSIUM CHLORIDE 20MEQ TAB 40 MEQ PO (10:46)
[2024-12-01 11:21] VITALS: BP 124/70; PULSE 69; RESP 18; O2SAT 100
[2024-12-01] MEDS: WATER IV (11:21)
[2024-12-01] MEDS: IRINOTECAN HCL IV (11:21)
[2024-12-01] MEDS: DEXTROSE 5% IV (11:21)
[2024-12-01 11:50] VITALS: BP 128/79; PULSE 72; RESP 18; O2SAT 100
[2024-12-01 12:30] VITALS: BP 121/63; PULSE 68; RESP 18; O2SAT 100
[2024-12-01 13:00] VITALS: RESP 18; O2SAT 100
[2024-12-01 13:10] VITALS: BP 124/75; PULSE 76; RESP 18; O2SAT 100
== END 2024-12-01 23:59 | disposition home or self-care (01) ==
LOC: INF 09:26
PROVIDERS: PCP Family Medicine; Visit Provider Internal Medicine Medical Oncology
DX: C18.2 Malignant neoplasm of ascending colon (principal)
CPT/HCPCS: 80053; 85025; 96413; 96415; J1642; J7060; J8540; J9206; Q0162

== ENCOUNTER 2024-12-15 09:25 | Outpatient (CLI) | payer MEDICAID, SELFPAY ==
--- OUTSIDE RECORDS SUMMARY | 2024-11-17 05:00 | XMS_ITS | Continuity of Care Document ---
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 Name Role Phone Vania Etienne NP Unavailable Sophy vailable Allergies, Adverse Reactions, Alerts Substance Reaction Status Criticality No Known Allergies Active No Inform ation Medications Medication Instructions Dosage Effective Dates (start - stop) Status Comments Anti-Diarrheal (loperamide) 2 mg tablet - Active prochlorperazine maleate 10 mg tablet - Active acetaminophen 500 mg tablet - Active loperamide 2 mg tablet - Act eladio loratadine 10 mg tablet - Ac tive BD AutoShield Duo Pen Needle 30 gauge x 06/28 - Active ferrous sulfate 325 mg (65 [...] mg-400 unit-5,000 unit/gram topical ointment - Active aspirin 81 mg tablet,delayed release take 1 tablet by oral route every day 81 MG - Active metoprolol tartrate 25 mg tablet take 1 tablet by oral route 2 times every day 25 MG - Active Procedures Procedure Date REMOVE IMPACTED EAR WAX Trim normal nail, any number Debride mycotic [...] Exam Performed Compsve Oral Eval- New/Est Pat DEBRIDE NAIL 6 OR MORE Diabetic Foot [...] Diagnoses Date Provider Providers Copied on Encounter [address] [place] [address], [address] [facility] [address], [place], [place], [id number], tel:[phone] [facility] ear care exam (chief complaint) Impacted cerumen, bilateral Tremaine-Hard elder Vania. [address] [facility], [address], [place], [address], [place]. Referring Provider: Tayo Jones. [address] [place] [address], [address] [facility], [place], [place], [id number], tel:[phone] [facility] Nail dystrophyType 2 diabetes mellitus with diabetic peripheral angiopathy without gangreneLong term (current) use of insulinOnychog ryphosis 5 [place]. [address] [place] [address], [address] [facility] [address], [place], [place], [id number], [place] tel:[phone] [facility] Diabetic eye exam (chief complaint) Ocular hypertension, bilateralType 2 diabetes mellitus without complicationsC ombined forms of age-related cataract, bilateral 5 Joy Vides. , [place]. Referring Provider: Tayo Jones. [address] [place] [address], [address] [place] [address] 300, [place], [place], [id number], [place] tel:[phone] [facility] No Information 5 Rahul Villatoro. , [place]. [address] [place] [address], [address] [place] [address] 300, [place], [place], [id number], [place] tel:[phone] [facility] Type 2 diabetes mellitus with diabetic peripheral angiopathy without gangreneLong term (current) use of oral hypoglycemic drugsNail dystrophyOnych ogryphosis 5 [place]. SBSQ NF CARE LOW MDM [address] [place] [address], [address] [place], [place] [address]te [address], [place], [place], [id number], [place] tel:[phone] [facility] Acquired absence of other left toe(s)Type 2 diabetes w diabetic peripheral angiopath w/o gangreneNail dystrophyOnych ogryphosis 4 [place]. SBS[facility] NF CARE SF MDM [address] [place] [address], [address] [place] [address], [place], [place], [id number], [place] tel:[phone] [facility] Acquired absence of other left toe(s)Tinea unguiumType 2 diabetes w diabetic peripheral angiopath w/o gangreneNail dystrophy 4 Jacob Sol. [address] [facility], [address], [place], [address], [place]. [facility], [address] [place], [place] [address]te [address], [place], [place], [id number], [place] tel:[phone] [facility] Acquired absence of other left toe(s)Nail dystrophyTinea unguiumType 2 diabetes w diabetic peripheral angiopath w/o gangrene 4 Jacob Sims [address], [address], [place], [address], [place]. Referring Provider: Tayo Jones. [facility], [address] [place], [place] [address], [place], [place], [id number], tel:[phone] [place] [address] Cataract (chief complaint) Combined forms of age-related cataract, bilateralType 2 diabetes mellitus without complicationsO cular hypertension, bilateral 4 [place]. Referring Provider: Tayo Jones. [address] [place] [address], [address] [place] [address], [place], [place], [id number], tel:[phone] [place] [address] No Information 4 [place], [place]. [facility], [address] [place], [place] [address]te [facility], [place], [place], [id number], [place] tel:[phone] [place] [address] Acquired absence of other left toe(s)Tinea unguiumNail dystrophyType 2 diabetes w diabetic peripheral angiopath w/o gangrene 4 Jacob Sims [address] [facility], [address], [place], [address], [place]. Referring Provider: Tayo Jones. [address] [place] [address], [address] [place] [address], [place], [place], [id number], [place] tel:[phone] [place] [address] Acquired absence of other left toe(s)Tinea unguiumNail dystrophyType 2 diabetes w diabetic peripheral angiopath w/o gangrene 3 Jacob Sims [address], [address], [place], [address], [place]. [address] [place] [address], [address] [place] [address], [place], [place], [id number], [place] tel:[phone] [place] [address] No Information 3 Andres Horne. [address], [address], [place], [place], [id number], [place]. tel:[phone] Referring Provider: Tayo Jones. [address] [place] [address], [address] [place], [place] [address], [place], [place], [id number], [place] tel:[phone] [facility] Nail dystrophyTinea unguiumType 2 diabetes w diabetic peripheral angiopath w/o gangreneAcquir ed absence of other left toe(s) 3 Jacob Sol. [address] [facility], [address], [place], [address], [place]. Referring Provider: Tayo Jones. [address] [place] [address], [address] [place], [place] [address], [place], [place], [id number], [place] tel:[phone] [facility] Encounter for dental examination and cleaning without abnormal findings 3 Ivett Ye. , [place]. tel:[phone] Referring Provider: Tayo Jones. [address] [place] [address], [address] [place], [place] [address], [place], [place], [id number], [place] tel:[phone] [facility] Diabetic eye exam (chief complaint) Type 2 diabetes mellitus without complicationsC ombined forms of age-related cataract, bilateral 3 Peewee Villasenor. [address] [facility], [address], [place], [address], [place]. Referring Provider: Tayo Jones. [address] [place] [address], [address] [place], [place] [address], [place], [place], [id number], [place] tel:[phone] [facility] Acquired absence of other left toe(s)Tinea unguiumType 2 diabetes w diabetic peripheral angiopath w/o gangrene 3 Jacob Sol. [address] [facility], [address], [place], [address], [place]. Referring Provider: Tayo Jones. [address] [place] [address], [address] [place], [place] [address], [place], [place], [id number], [place] tel:[phone] [facility] Encounter for dental examination and cleaning without abnormal findings 3 [place], [place]. tel:[phone] Referring Provider: Tayo Jones. [facility], [address] [place], [place] [address], [place], [place], [id number], [place] tel:[phone] [facility] Acquired absence of other left toe(s)Tinea unguiumType 2 diabetes w diabetic peripheral angiopath w/o gangrene 2 Jacob Sims [address] [facility], [address], [place], [address], [place]. Referring Provider: Tayo Jones. [facility], [address] [place] [address] [address], [place], [place], [id number], [place] tel:[phone] [facility] Acquired absence of other left toe(s)Tinea unguiumType 2 diabetes w diabetic peripheral angiopath w/o gangreneNail dystrophy 2 [address] [place] [address], [address], [place], [address], [place]. Referring Provider: Tayo Jones. [facility], [address] [place] [address] [address], [place], [place], [id number], [place] tel:[phone] [facility] Encounter for dental examination and cleaning without abnormal findings 2 [place], [place]. Referring Provider: Tayo Jones. [facility], [address] [place], [place] [address], [place], [place], [id number], [place] tel:[phone] [facility] Type 2 diabetes w diabetic peripheral angiopath w/o gangreneTinea unguiumAcquire d absence of other left toe(s) 2 [place], [place]. Referring Provider: Tayo Jones. [facility], [address] [place], [place] [address], [place], [place], [id number], [place] tel:[phone] [facility] Tinea unguiumType 2 diabetes w diabetic peripheral angiopath w/o gangreneAcquir ed absence of other left toe(s) 2 Jacob Sims [address] [facility], [address], [place], [address], [place]. Referring Provider: Tayo Jones. [address] [place] [address], [address] [facility], [place], [place], [id number], tel:[phone] [facility] Encounter for dental exam and cleaning w/o abnormal findings 2 Mike Garrett. [address] [facility], [address], [place], [place], [id number], [place]. tel:[phone] Referring Provider: Tayo Jones. [address] [place] [address], [address] [facility], [place], [place], [id number], tel:[phone] [facility] Diabetic eye exam (chief complaint) Combined forms of age-related cataract, bilateralType 2 diabetes mellitus without complications 2 Peewee Villasenor. [address] [facility], [address], [place], [address], [place]. Referring Provider: Tayo Jones. [address] [place] [address], [address] [facility], [place], [place], [id number], tel:[phone] [facility] No Information 2 Peewee Villasenor. [address] [facility], [address], [place], [address], . Family History Family Member Type Diagnosis Age At Onset No Information Payers Payer name Insurance type Covered green party ID Authoriza tion(s) Medicaid [facility] [id number] Social History Type Description Quantity Date Captured Comments Alcohol Use Details Unknown Caffeine Use Details Unknown Tobacco Use Status No Information Smoking Status No Information Sex Male Chief Complaint And Reason For Visit From encounter dated '11/17/2024 09:00'. ear care exam (chief complaint) Reason For Referral Reason For Referral No Information Plan Of Treatment Date Type Action Status Appointment Nayan Womack Medicaid Only. BOOKED Patient Education Earwax Blockage: Care I nstructions completed Patient Education Dental X-Ray: About Thi [...] No Information Instructions Date Instruction Additional Infor johana may refer to audiolo gy if pt, family, and/or facility wish to pursue. Follow up in 6-9 months or sooner if needed. Related to Impacted cerumen, bilateral All of the documente d thickened nails (which includes those nails 2 mm or more in thickness, and possible mycotic component to the nails) were debrided in both length and thickness using both a nail nipper and an electric rotary regrinder in an atraumatic fashion as needed ; this was performed in an attempt to prevent pain and reduce risk of infection. Alcohol applied to the digits afterwards. PT tolerated procedure well. Related to Onychogryphosis This is a chronic st able problem, Will reassess and follow up in 2-3 months Related to FDC (current) use of insulin This is a chronic st able problem, Will reassess and follow up in 2-3 months Related to Type 2 diabetes mellitus with diabetic peripheral angiopathy without gangrene All documented dystr ophic nails were reduced in length as needed to prevent pain and other symptoms. Patient tolerated procedure well. Related to Nail dystrophy Follow up - Return i n 12-15 months for dilated fundus exam. Impression/Plan - No active diabetic retinopathy present in either eye. We will monitor at regular intervals. Related to Type 2 diabetes mellitus without complications Impression/Plan - 2+ NS and cortical but great vision in current specs. Recheck yearly Related to Combined forms of age-related cataract, bilateral Impression/Plan - IO P with thick pachs 627/619. Educated pt on condition. Recheck yearly Related to Ocular hypertension, bilateral All of the documente d thickened nails (which includes those nails 2 mm or more in thickness, and possible mycotic component to the nails) were debrided in both length and thickness using both a nail nipper and an electric rotary regrinder in an atraumatic fashion; this was performed in an attempt to prevent pain and reduce risk of infection. Alcohol applied to the digits afterwards. Related to Onychogryphosis All documented dystr ophic nails were reduced in length as needed to prevent pain and other symptoms. Related to Nail dystrophy No change to treatme nt plan, Will continue to monitor. 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 discussed importance of good foot care and shoes. Educational material was left with the facility. Related to Type 2 diabetes mellitus with diabetic peripheral angiopathy without gangrene All documented thick ened nails were debrided using a rotary tool and nail nipper. Related to Onychogryphosis All documented dystr ophic nails were reduced in length as needed to prevent pain and other symptoms. 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
--- OUTSIDE RECORDS SUMMARY | 2024-11-19 07:09 | XMS_ITS | Encounter Summary ---
Author Organization [facility] Address [address] [id number] Care Team Providers Care Raw Finish Mill Operator Name Role Phone Tayo Jones MD Primary Care Provider [phone] Reason for Referral * Imaging (Routine) - Closed Specialty Diagnoses / Procedures Referred By Samia pagan Referred To Contact Radiology Diagnoses Metastatic colon cancer to liver (CMS/HCC) Procedures CT Abdomen Pelvis w IV Contrast Farhad Castillo MD [address] [address] Phone: tel: fax: Referral ID Status Reason Start Date Expiration Date Visits Re quested Visits Authorized [id number] Closed 08/03/2024 02/02/2026 1 1 * Imaging (Routine) - Closed Specialty Diagnoses / Procedures Referred By Samia pgaan Referred To Contact Radiology Diagnoses Metastatic colon cancer to liver (CMS/HCC) Procedures CT Chest w IV Contrast Farhad Castillo MD [address] [address] Phone: tel: fax: Referral ID Status Reason Start Date Expiration Date Visits Re quested Visits Authorized [id number] Closed 08/03/2024 02/02/2026 1 1 Reason for Visit * Imaging (Routine) - Closed Specialty Diagnoses / Procedures Referred By Samia t Referred To Contact Radiology Diagnoses Metastatic colon cancer to liver (CMS/HCC) Procedures CT Abdomen Pelvis w IV Contrast Farhad Castillo MD [address] [place] [phone] Phone: tel: fax: Referral ID Status Reason Start Date Expiration Date Visits Re quested Visits Authorized [id number] Closed 08/03/2024 02/02/2026 1 1 Encounter Details Date Type Department Care Team (Latest Contact Info) Description 11/19/2024 7:09 AM EDT - 11/19/2024 11:59 PM EDT Hospital Encounter [facility] [address] [place] [address] Metastatic colon cancer to liver [...] in the past 12 m [facility], were you homeless or living in a [...] AM EDT Appointment Cardiac Imaging [address] [place] [address] 12/17/2024 9:30 AM EDT Appointment Cardiac Imaging [address] [place] [address] 12/17/2024 4:15 PM EDT Appointment [facility] [address] [place] [address] 12/24/2024 9:15 AM EDT Office Visit [facility] [address] [place] [address] Farhad Castillo MD [address] [address] documented as of this encounter Procedures Procedure [...] Total DLP (Dose-Length Product): 3353.28 mGy.cm (accession [id number]), 3353.28 mGy.cm (accession [id number]) Please note: The reported value represents the [...] Total DLP (Dose-Length Product): 3353.28 mGy.cm (accession [id number]),3353.28 mGy.cm (accession [id number]) Please note: The reported valuerepresents the total [...] cm. . Other previously noted lesion within vxhjouy4Z/8 remains difficult to clearly delineate. Unremarkable gallbladder.Stable [...] Da Trevino MD on 11/19/2024 10:42 AM us Farhad Castillo MD IMG CT PROCEDURES [...] Total DLP (Dose-Length Product): 3353.28 mGy.cm (accession [id number]), 3353.28 mGy.cm (accession [id number]) Please note: The reported value represents the [...] Total DLP (Dose-Length Product): 3353.28 mGy.cm (accession [id number]),3353.28 mGy.cm (accession [id number]) Please note: The reported valuerepresents the total [...] cm. . Other previously noted lesion within juhlwxo3N/8 remains difficult to clearly delineate. Unremarkable gallbladder.Stable [...] documented as of this encounter Care Teams Raw Finish Mill Operator Relationship Specialty Start Date End Date Tayo Jones MD [address] [phone] PCP - General 07/14/24 documented as of this encounter
--- OUTSIDE RECORDS SUMMARY | 2024-11-19 11:15 | XMS_ITS | Encounter Summary ---
Author Organization [facility] Address [address] [id number] Care Team Providers Care Giving Officer Name Role Phone Tayo Jones MD Primary Care Provider [phone] Reason for Referral * Consultation (Routine) - Authorized Specialty Diagnoses / Procedures Referred By Samia pagan Referred To Contact General Surgery Diagnoses Metastatic colon cancer to liver (CMS/HCC) Farhad Castillo MD [address] [address] Phone: tel: fax: Heidi March MD [address] [place] [address] Phone: tel: fax: Referral ID Status Reason Start Date Expiration Date Visits Requested Visits Authorized [id number] Authorized Specialty Services Required 11/19/2024 05/21/2026 1 1 Scheduling Instructions Hernia repair possible combo surgery w/ Dr. Castillo * Imaging (Routine) - Authorized Specialty Diagnoses / Procedures Referred By Samia pagan Referred To Contact Cardiology Diagnoses High risk surgery, pre-operative cardiovascular examination Shortness of breath on exertion Procedures NM Myocardial Perfusion Stress Test Farhad Castillo MD [address] [address] Phone: tel: fax: Referral ID Status Reason Start Date Expiration Date V isits Requested Visits Authorized [id number] Authorized 11/19/2024 05/21/2026 1 1 * Imaging (Routine) - Authorized Specialty Diagnoses / Procedures Referred By Contomid t Referred To Contact Radiology Diagnoses Metastatic colon cancer to liver (CMS/HCC) Procedures MR Abdomen w and wo IV Contrast Farhad Castillo MD [address] [address] Phone: tel: fax: Referral ID Status Reason Start Date Expiration Date V isits Requested Visits Authorized [id number] Authorized 11/19/2024 05/21/2026 1 1 Reason for Visit * Reason Comments Routine Follow-up Encounter Details Date Type Department Care Team (Latest Contact Info) Description 11/19/2024 11:15 AM EDT Office Visit [facility] Multidisciplinary Oncology Clinic [address] [place] [phone] Farhad Castillo MD [address] [phone] Metastatic colon cancer to liver (CMS/HCC) (Primary [...] any time in the past 12 m [facility], were you homeless or living in a correction (including now)? No 10/09/2024 Utilities Answer Date Recorded In the past 12 months has th e [employer], gas, oil, or water company threatened to [...] RIGHT COLON AND TERMINAL ILEUM, RIGHT HEMICOLECTOMY ([id number]; 11/09/2022): - INVASIVE MODERATELY DIFFERENTIATED ADENOCARCINOMA OF [...] Total DLP (Dose-Length Product): 3353.28 mGy.cm (accession [id number]), 3353.28 mGy.cm (accession [id number]) Please note: The reported value represents the [...] AM EDT Appointment Cardiac Imaging [address] [place] [address] 12/17/2024 9:30 AM EDT Appointment Cardiac Imaging [address] [place] [address] 12/17/2024 4:15 PM EDT Appointment [facility] Radiology [address] [place] [address] 12/24/2024 9:15 [address] EDT [address] [facility] Multidisciplinary Oncology Clinic [address] [place] [address] Farhad Castillo MD [address] [address] Scheduled Orders Name Type Priority Associated Diagnoses [...] - 41.0 mg/dL 11/19/2024 12:19 PM EDT [facility] Blood Venous blood specimen / Unknown Venipuncture / Unknown 11/19/2024 11:26 AM EDT 11/19/2024 11:47 AM EDT Farhad Castillo MD LAB BLOOD ORDERABLES Final Result Performing Organization Address [facility] Co de Phone Number [facility] [address] [place] [address] * (ABNORMAL) Hemoglobin A1c (11/19/2024 11:26 AM EDT) Pathologist [facility] Hemoglobin A1c 7.3(H) <5.7 % 11/19/2024 12:49 PM EDT [facility] Blood Venous blood specimen / Unknown Venipuncture / Unknown 11/19/2024 11:26 AM EDT 11/19/2024 11:47 AM EDT Narrative [facility] - 11/19/2024 12:49 PM [...] BLOOD ORDERABLES Final Result Performing Organization Address [facility] [place] [address] * (ABNORMAL) CEA, Serum (11/19/2024 11:26 AM EDT) Pathologist [facility] CEA, Serum 7.7(H) <4.0 ng/mL 11/19/2024 12:31 PM EDT [facility] Blood Venous blood specimen / Unknown Venipuncture / Unknown 11/19/2024 11:26 AM EDT 11/19/2024 11:47 AM EDT Narrative [facility] - 11/19/2024 12:31 PM EDT Normal range for smokers: < 5.5 ng/ml Normal range for non-smokers: <=4.0 ng/ml Performed by [employer] electrochemiluminescent immunoassay. Results obtained with different test methods or kits cannot be used interchangeably. us Farhad Castillo MD LAB BLOOD ORDERABLES Final Result [facility] [address] [place] [address] * (ABNORMAL) CBC W/O Differential (11/19/2024 11:26 AM EDT) [facility] WBC Count 8.37 3.70 - 10.30 10*3/uL LAB HEMATOLOGY METHOD 11/19/2024 11:55 AM EDT [facility] RBC Count 3.98(L) 4.60 - 6.10 10*6/uL LAB HEMATOLOGY METHOD 11/19/2024 11:55 AM EDT [facility] HGB 12.1(L) 13.7 - 17.5 g/dL LAB HEMATOLOGY METHOD 11/19/2024 11:55 AM EDT [facility] HCT 36.4(L) 40.0 - 51.0 % LAB HEMATOLOGY METHOD 11/19/2024 11:55 AM EDT [facility] Platelet Count 341 155 - 369 10*3/uL LAB HEMATOLOGY METHOD 11/19/2024 11:55 AM EDT [facility] MCV 92 79 - 98 fL LAB HEMATOLOGY METHOD 11/19/2024 11:55 AM EDT [facility] MCH 30.4 26.0 - 32.0 pg LAB HEMATOLOGY METHOD 11/19/2024 11:55 AM EDT [facility] MCHC 33.2 30.7 - 35.5 g/dL LAB HEMATOLOGY METHOD 11/19/2024 11:55 AM EDT [facility] RDW 13.9 11.5 - 14.5 % LAB HEMATOLOGY METHOD 11/19/2024 11:55 AM EDT [facility] MPV 8.7(L) 8.8 - 12.5 fL LAB HEMATOLOGY METHOD 11/19/2024 11:55 AM EDT [facility] nRBC 0.0 <=0.0 per 100 WBCs LAB HEMATOLOGY METHOD 11/19/2024 11:55 AM EDT [facility] Blood Venous blood specimen / Unknown Venipuncture / Unknown 11/19/2024 11:26 AM EDT 11/19/2024 11:47 AM EDT us Farhad Castillo MD LAB BLOOD ORDERABLES Final Result [facility] [address] [place] [address] * (ABNORMAL) Comprehensive Metabolic Panel, Plasma (11/19/2024 11:26 AM EDT) Glucose, Plasma 174(H) 74 - 99 mg/dL 11/19/2024 12:19 PM EDT [facility] BUN, Plasma 20 8 - 23 mg/dL 11/19/2024 12:19 PM EDT [facility] Creatinine, Plasma 1.06 0.70 - 1.20 mg/dL 11/19/2024 12:19 PM EDT [facility] BUN/Creatinine Ratio 11/19/2024 12:19 PM EDT [facility] Sodium, Plasma 132(L) 136 - 145 mmol/L 11/19/2024 12:19 PM EDT [facility] Potassium, Plasma 4.7 3.6 - 4.9 mmol/L 11/19/2024 12:19 PM EDT [facility] Chloride, Plasma 101 97 - 107 mmol/L 11/19/2024 12:19 PM EDT [facility] CO2, Plasma 18(L) 22 - 29 mmol/L 11/19/2024 12:19 PM EDT [facility] Anion Gap 13 6 - 16 mmol/L 11/19/2024 12:19 PM EDT [facility] Total Calcium, Plasma 9.3 8.9 - 10.2 mg/dL 11/19/2024 12:19 PM EDT [facility] Total Protein 6.9 6.3 - 7.9 g/dL 11/19/2024 12:19 PM EDT [facility] Albumin, Plasma 3.9 3.5 - 5.2 g/dL 11/19/2024 12:19 PM EDT [facility] AST, Plasma 30 10 - 50 U/L 11/19/2024 12:19 PM EDT [facility] ALT, Plasma 20 10 - 50 U/L 11/19/2024 12:19 PM EDT [facility] Alkaline Phosphatase, Plasma 90 40 - 115 U/L 11/19/2024 12:19 PM EDT [facility] Total Bilirubin, Plasma 0.4 0.2 - 1.1 mg/dL 11/19/2024 12:19 PM EDT [facility] eGFRcr 80.3 mL/min/1.7 3m*2 11/19/2024 12:19 PM EDT [facility] Comment:Reported eGFRcr in m L/min/1.73m2 is based the CKD-EPI 2020 equation that does not use a race coefficient. Blood Venous blood specimen / Unknown Venipuncture / Unknown 11/19/2024 11:26 AM EDT 11/19/2024 11:47 AM EDT Farhad Castillo MD LAB BLOOD ORDERABLES Final Result [facility] [address] [place] [address] documented in this encounter Visit Diagnoses Diagnosis [...] documented as of this encounter Care Teams Giving Officer Relationship Specialty Start Date End Date Tayo Jones MD [address] [place] [address] PCP - General 07/14/24 documented as of this encounter
[2024-12-15 09:27] VITALS: BMI 35.5
[2024-12-15 09:47] LABS: Hematocrit 35.6 % (42.0-52.0); Hemoglobin 11.7 g/dL (14.1-18.0); Immature Granulocytes % 0.8 %; Mean Corpuscular HGB Conc 32.9 g/dL (31.8-35.4); Mean Corpuscular Hemoglobin 30.2 pg (27.0-31.2); Mean Corpuscular Volume 92.0 fl (80-94); Nucleated Red Blood Cells % 0 %; Platelet Count 266 K/mm3 (142-424); Red Blood Count 3.87 M/mm3 (4.60-6.20); Red Cell Distribution Width-SD 48.3 fL; White Blood Count 10.5 K/mm3 (4.8-10.8)
--- OUTSIDE RECORDS SUMMARY | 2024-12-15 09:53 | XMS_ITS | Encounter Summary ---
Author Organization [facility] Address [address] [place] [address] Care Team Providers Care Curb Setter Name Role Phone Tayo Jones MD Primary Care Provider [phone] Encounter Details Date Type Department Care Team (Late st Contact Info) Description 05/06/2024 Orders Only External Location [address] [place] [address] Provider, External Social History Tobacco Use Types [...] AM EDT Appointment Cardiac Imaging [address] [place] [address] 12/17/2024 9:30 AM EDT Appointment Cardiac Imaging [address] [place] [address] 12/17/2024 4:15 PM EDT Appointment [facility] [address], [address] [place] [address] 12/24/2024 9:15 AM EDT Office Visit [facility] [address] [place] [address] Farhad Castillo MD [address] [phone] documented as of this encounter Procedures Procedure [...] on filedocumented in this encounter Care Teams Curb Setter Relationship Specialty Start Date End Date Tayo Jones MD [address] [place] [address] PCP - General 07/14/24 documented as of this encounter
--- OUTSIDE RECORDS SUMMARY | 2024-12-15 09:53 | XMS_ITS | Encounter Summary ---
Author Organization [facility] Address [address] [place] [address] Care Team Providers Care Gum Machine Operator Name Role Phone Tayo Jones MD Primary Care Provider [phone] Encounter Details Date Type Department Care Team (Late st Contact Info) Description 06/15/2024 Orders Only External Location [address] [place] [address] Provider, External Social History Tobacco Use Types [...] AM EDT Appointment Cardiac Imaging [address] [place] [address] 12/17/2024 9:30 AM EDT Appointment Cardiac Imaging [address] [place] [address] 12/17/2024 4:15 PM EDT Appointment [facility] [address], [address]st [place] [address] 12/24/2024 9:15 AM EDT Office Visit [facility] Multidisciplinary Oncology Clinic [address] [place] [address] Farhad Castillo MD [address] [address] documented as of this encounter Procedures Procedure [...] on filedocumented in this encounter Care Teams Gum Machine Operator Relationship Specialty Start Date End Date Tayo Jones MD [address] [place] [address] PCP - General 07/14/24 documented as of this encounter
--- OUTSIDE RECORDS SUMMARY | 2024-12-15 09:53 | XMS_ITS | Encounter Summary ---
Author Organization [facility] Address [address] [place] [address] Care Team Providers Care Nitroglycerin Separator Operator Name Role Phone Tayo Jones MD Primary Care Provider Encounter Details Date Type Department Care Team (Late Contact Info) Description 07/16/2024 Lab Requisition [facility] [address] [place] [phone] Farhad Castillo MD [address] [address] Other acute appendicitis without perforation or gangrene [...] AM EDT Appointment Cardiac Imaging [address] [place] [address] 12/17/2024 9:30 AM EDT Appointment Cardiac Imaging [address] [place] [address] 12/17/2024 4:15 PM EDT Appointment [facility] [address] 1st [place] [address] 12/24/2024 9:15 AM EDT Office Visit [facility] [address] [place] [address] Farhad Castillo MD [address] [address] documented as of this encounter Procedures Procedure Name Priority Date/Time Associated Diagnosis Comments SURGICAL PATHOLOGY CONSULT Routine 07/16/2024 1:13 PM EDT Other acute appendicitis without perforation or gangrene documented in this encounter Results * Surgical Pathology Consult (07/16/2024 1:13 PM EDT) Case Report Sugical Pathology Consult Case: [id number] Authorizing Provider: Farhad Castillo MD Collected: 07/16/2024 1313 Ordering Location: [facility] Lab Received: 07/16/2024 1313 Pathologist: Constance Murphy MD Specimen: Colon, [id number] 07/17/2024 1:08 PM EDT [facility] Final Diagnosis RIGHT COLON AND TERMINAL ILEUM, RIGHT HEMICOLECTOMY ([id number]; 11/09/2022): - 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 - TUMOR BUDDING SCORE: HIGH (10 OR GREATER). - NO TUMOR SEEN IN TWENTY ONE LYMPH NODES (0/21). 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 07/17/2024 1:08 PM EDT [facility] Clinical Information K35.890 - Other acute appendicitis without perforation or gangrene [ICD-10-CM] 07/17/2024 1:08 PM EDT [facility] Gross Description A. [id number] Received along with a corresponding pathology report from [facility] are 29 slides labeled outside case: [id number] collected on 11/09/2022. 07/17/2024 1:08 PM EDT [facility] Note: A resident was involved in the service. I attest I examined the relevant preparations for the specimens and confirmed the diagnosis or interpretation. 07/17/2024 1:08 PM EDT [facility] Tissue Colon structure / Unknown 07/16/2024 1:13 PM EDT 07/16/2024 1:13 PM EDT us Farhad Castillo MD LAB PATHOLOGY ORDERABLES F inal Result [facility] [address] [place] [address] documented in this encounter Visit Diagnoses Diagnosis Other acute appendicitis without perforation or gangrene documented in this encounter Care Teams Nitroglycerin Separator Operator Relationship Specialty Start Date End Date Tayo Jones MD [address] [place] [address] PCP - General 07/14/24 documented as of this encounter
--- OUTSIDE RECORDS SUMMARY | 2024-12-15 09:53 | XMS_ITS | Encounter Summary ---
Author Organization [facility] Address [address] [place] [address] Care Team Providers Care Therapy Site Coordinator Name Role Phone Tayo Jones MD Primary Care Provider [phone] Encounter Details Date Type Department Care Team (Late st Contact Info) Description 05/06/2024 Orders Only External Location [address] [place] [address] Provider, External Social History Tobacco Use Types [...] AM EDT Appointment Cardiac Imaging [address] [place] [address] 12/17/2024 9:30 AM EDT Appointment Cardiac Imaging [address] [place] [address] 12/17/2024 4:15 PM EDT Appointment [facility] [address]st [place] [address] 12/24/2024 9:15 AM EDT Office Visit [facility] Multidisciplinary Oncology Clinic [address] [place] [address] Farhad Castillo MD [address] [address] documented as of this encounter Procedures Procedure [...] on filedocumented in this encounter Care Teams Therapy Site Coordinator Relationship Specialty Start Date End Date Tayo Jones MD [address] [place] [address] PCP - General 07/14/24 documented as of this encounter
--- OUTSIDE RECORDS SUMMARY | 2024-12-15 09:53 | XMS_ITS | Encounter Summary ---
Author Organization [facility] Address [address] [place] [address] Care Team Providers Care Pointer Machine Operator Name Role Phone Tayo Jones MD Primary Care Provider [phone] Encounter Details Date Type Department Care Team (Late st Contact Info) Description 01/24/2023 Orders Only External Location [address] [place] [address] Sue Pope MD [address] [place] [phone] Social History Tobacco Use Types Packs/Day Years [...] AM EDT Appointment Cardiac Imaging [address] [place] [address] 12/17/2024 9:30 AM EDT Appointment Cardiac Imaging [address] [place] [address] 12/17/2024 4:15 PM EDT Appointment [facility] Radiology [address] 1st [place] [address] 12/24/2024 9:15 AM EDT Office Visit [facility] Multidisciplinary Oncology Clinic [address] [place] [address] Farhad Castillo MD [address] [address] documented as of this encounter Procedures Procedure [...] on filedocumented in this encounter Care Teams Pointer Machine Operator Relationship Specialty Start Date End Date Tayo Jones MD [address] [place] [address] PCP - General 07/14/24 documented as of this encounter
--- OUTSIDE RECORDS SUMMARY | 2024-12-15 09:53 | XMS_ITS | Encounter Summary ---
Author Organization [facility] Address [address] [place] [address] Care Team Providers Care Spanish Speaking Babysitter Name Role Phone Tayo Jones MD Primary Care Provider [phone] Encounter Details Date Type Department Care Team (Late st Contact Info) Description 02/18/2023 Orders Only External Location [address] [place] [address] Provider, External Social History Tobacco Use Types [...] AM EDT Appointment Cardiac Imaging [address] [place] [address] 12/17/2024 9:30 AM EDT Appointment Cardiac Imaging [address] [place] [address] 12/17/2024 4:15 PM EDT Appointment [facility] [address] [place] [address] 12/24/2024 9:15 AM EDT Office Visit [facility] Multidisciplinary Oncology Clinic [address] [place] [address] Farhad Castillo MD [address] [address] documented as of this encounter Procedures Procedure [...] on filedocumented in this encounter Care Teams Spanish Speaking Babysitter Relationship Specialty Start Date End Date Tayo Jones MD [address] [place] [address] PCP - General 07/14/24 documented as of this encounter
--- OUTSIDE RECORDS SUMMARY | 2024-12-15 09:53 | XMS_ITS | Encounter Summary ---
Author Organization [facility] Address [address] [place] [address] Care Team Providers Care Emergency Management Specialist Name Role Phone Tayo Jones MD Primary Care Provider [phone] Encounter Details Date Type Department Care Team (Late st Contact Info) Description 01/15/2023 Orders Only External Location [address] [place] [address] Provider, External Social History Tobacco Use Types [...] AM EDT Appointment Cardiac Imaging [address] [place] [address] 12/17/2024 9:30 AM EDT Appointment Cardiac Imaging [address] [place] [address] 12/17/2024 4:15 PM EDT Appointment [facility] [address] [place] [address] 12/24/2024 9:15 AM EDT Office Visit [facility] Multidisciplinary Oncology Clinic [address] [place] [address] Farhad Castillo MD [address] [address] documented as of this encounter Procedures Procedure [...] on filedocumented in this encounter Care Teams Emergency Management Specialist Relationship Specialty Start Date End Date Tayo Jones MD [address] [place] [address] PCP - General 07/14/24 documented as of this encounter
--- OUTSIDE RECORDS SUMMARY | 2024-12-15 09:53 | XMS_ITS | Encounter Summary ---
Author Organization [facility] Address [address] [place] [address] Care Team Providers Care Nail Polish Brush Machine Feeder Name Role Phone Tayo Jones MD Primary Care Provider Encounter Details Date Type Department Care Team (Late st Contact Info) Description 01/15/2023 Orders Only External Location [address] [place] [address] Sue Pope MD [address] [place] [phone] Social History Tobacco Use Types Packs/Day Years [...] AM EDT Appointment Cardiac Imaging [address] [place] [address] 12/17/2024 9:30 AM EDT Appointment Cardiac Imaging [address] [place] [address] 12/17/2024 4:15 PM EDT Appointment [facility] Radiology [address] 1st [place] [address] 12/24/2024 9:15 AM EDT Office Visit [facility] Multidisciplinary Oncology Clinic [address] [place] [address] Farhad Castillo MD [address] [address] documented as of this encounter Procedures Procedure [...] on filedocumented in this encounter Care Teams Nail Polish Brush Machine Feeder Relationship Specialty Start Date End Date Tayo Jones MD [address] [place] [address] PCP - General 07/14/24 documented as of this encounter
--- OUTSIDE RECORDS SUMMARY | 2024-12-15 09:53 | XMS_ITS | Encounter Summary ---
Author Organization [facility] Address [address] [place] [address] Care Team Providers Care Building Service Worker Name Role Phone Tayo Jones MD Primary Care Provider [phone] Encounter Details Date Type Department Care Team (Late st Contact Info) Description 05/31/2023 Orders Only External Location [address] [place] [address] Provider, External Social History Tobacco Use Types [...] AM EDT Appointment Cardiac Imaging [address] [place] [address] 12/17/2024 9:30 AM EDT Appointment Cardiac Imaging [address] [place] [address] 12/17/2024 4:15 PM EDT Appointment [facility] Radiology [address] 1[address] [place] [address] 12/24/2024 9:15 AM EDT Office Visit [facility] Multidisciplinary Oncology Clinic [address] [place] [address] Farhad Castillo MD [address] [address] documented as of this encounter Procedures Procedure [...] on filedocumented in this encounter Care Teams Building Service Worker Relationship Specialty Start Date End Date Tayo Jones MD [address] [place] [phone] PCP - General 07/14/24 documented as of this encounter
--- OUTSIDE RECORDS SUMMARY | 2024-12-15 09:54 | XMS_ITS | Clinical Summary ---
Author Organization [facility] Address [address] [place] [address] Care Team Providers Care Cotton Classer Name Role Phone Tayo Jones MD Primary Care Provider [phone] Allergies No known active allergies Medications carvedilol [...] Office Visit [facility] [address] [place] [phone] Farhad Castillo MD Metastatic colon cancer to liver (CMS/HCC) (Primary Dx); High risk surgery, pre-operative cardiovascular examination; Shortness of breath on exertion 11/19/2024 7:09 AM EDT - 11/19/2024 11:59 PM EDT Hospital Encounter [facility] [address] [place] [address] Metastatic colon cancer to liver (CMS/HCC) Discharge Disposition: Home or Self Care 11/19/2024 Travel 10/09/2024 Travel 10/08/2024 12:10 AM EDT - 10/09/2024 3:38 PM EDT Hospital Encounter [facility] Emergency [facility] [address] [place] [phone] Mickie Jefferson MD Hourigan, Jon S, MD Small bowel obstruction (CMS/HCC) (Primary Dx); Abdominal pain, generalized Discharge Disposition: Assisted Facility 10/08/2024 Travel 10/07/2024 Orders Only External Location [address] [place] [address] Provider, External from Last 3 [...] any time in the past 12 m [facility], were you homeless or living in a intermediate (including now)? No 10/09/2024 Utilities Answer Date Recorded In the past 12 months has th e [employer], gas, oil, or water [employer] threatened to shut off services in your [...] AM EDT Appointment Cardiac Imaging [address] [place] [address] 12/17/2024 9:30 AM EDT Appointment Cardiac Imaging [address] [place] [address] 12/17/2024 4:15 PM EDT Appointment [facility] Radiology [address] [place] [address] 12/24/2024 9:15 AM EDT Office Visit [facility] [address] [place] [address] Farhad Castillo MD [address] [phone] Health Maintenance Due Date Last Done Comments [facility]-Infant/Child/Adol SDOH Screenings 1965 Diabetes: Dental Exam 1974 [facility]-DTaP,Tdap,and Td Vaccines (1 - Tdap) 1983 [facility]-Hepatitis A Vaccines (1 of 2 - Risk 2-dose series) 1983 [facility]-Zoster Vaccines (1 of 2) 1983 [facility]-RSV Vaccine: 60+ Years or (1 - Risk 60-74 years 1-dose series) 2024 [id number] Vaccine (5 - season) 2024 01/15/2022, 03/28/2021, 07/27/2020, Additional history exists [facility]-Influenza Vaccine (#1) 2024 [facility]-Diabetes: Hemoglobin A1C [...] this topic Medical Devices Implanted Type Area Cost Consultant Device Identifier Shelf Expiration Date Model / Serial / Lot Port Clearvue Power 8fr - S. - [id number] Implanted:Qty : 1 on 07/31/2024 by Farhad Castillo MD at [facility] Other Medication Pump Left: Chest [employer]-[id number] 07/13/2025 [id number] / . / [id number] Procedures Procedure Name Priority Date/Time Associated Diagnosis [...] LAB HEMATOLOGY METHOD 11/19/2024 11:55 AM EDT [facility] RBC Count 3.98(L) 4.60 - 6.10 10*6/uL LAB HEMATOLOGY METHOD 11/19/2024 11:55 AM EDT [facility] HGB 12.1(L) 13.7 - 17.5 g/dL LAB HEMATOLOGY METHOD 11/19/2024 11:55 AM EDT [facility] HCT 36.4(L) 40.0 - 51.0 % LAB HEMATOLOGY METHOD 11/19/2024 11:55 AM EDT [facility] Platelet Count 341 155 - 369 10*3/uL LAB HEMATOLOGY METHOD 11/19/2024 11:55 AM EDT [facility] MCV 92 79 - 98 fL LAB HEMATOLOGY METHOD 11/19/2024 11:55 AM EDT [facility] MCH 30.4 26.0 - 32.0 pg LAB HEMATOLOGY METHOD 11/19/2024 11:55 AM EDT [facility] MCHC 33.2 30.7 - 35.5 g/dL LAB HEMATOLOGY METHOD 11/19/2024 11:55 AM EDT [facility] RDW 13.9 11.5 - 14.5 % LAB HEMATOLOGY METHOD 11/19/2024 11:55 AM EDT [facility] MPV 8.7(L) 8.8 - 12.5 fL LAB HEMATOLOGY METHOD 11/19/2024 11:55 AM EDT [facility] nRBC 0.0 <=0.0 per 100 WBCs LAB HEMATOLOGY METHOD 11/19/2024 11:55 AM EDT [facility] Blood Venous blood specimen / Unknown Venipuncture / Unknown 11/19/2024 11:26 AM EDT 11/19/2024 11:47 AM EDT us Farhad Castillo MD LAB BLOOD ORDERABLES Final Result Performing Organization Address City/[facility]/ZIP Co de Phone Number [facility] [address] [place] [address] * Prealbumin, Plasma (11/19/2024 11:26 AM EDT) Prealbumin, Plasma 25.7 20.0 - 41.0 mg/dL 11/19/2024 12:19 PM EDT [facility] Blood Venous blood specimen / Unknown Venipuncture / Unknown 11/19/2024 11:26 AM EDT 11/19/2024 11:47 AM EDT Farhad aCstillo MD LAB BLOOD ORDERABLES Final Result [facility] [address] [place] [address] * (ABNORMAL) Hemoglobin A1c (11/19/2024 11:26 AM EDT) Only the most recent of2 resultswithin the time period is included. Hemoglobin A1c 7.3(H) <5.7 % 11/19/2024 12:49 PM EDT [facility] Blood Venous blood specimen / Unknown Venipuncture / Unknown 11/19/2024 11:26 AM EDT 11/19/2024 11:47 AM EDT Narrative [facility] - 11/19/2024 12:49 PM EDT HA1C Interpretive Data: Diagnosis of Diabetes: Diabetic > or = 6.5% Pre-diabetic 5.7 to 6.4% Non-diabetic < or = 5.6% Glycemic Targets for Type I and Type II Diabetics: Non- Adults <7.0% Adults <6.0% Children and Adolescents <7.5% Source: [place] [employer]. Standards of medical care in diabetes,2017. Diabetes Care.2017:40 (suppl 1):S1-S135. Farhad Castillo MD LAB BLOOD ORDERABLES Final Result Performing Organization Address [facility] Co de Phone Number [facility] [address] [place] [address] * (ABNORMAL) CEA, Serum (11/19/2024 11:26 AM EDT) CEA, Serum 7.7(H) <4.0 ng/mL 11/19/2024 12:31 PM EDT [facility] Blood Venous blood specimen / Unknown Venipuncture / Unknown 11/19/2024 11:26 AM EDT 11/19/2024 11:47 AM EDT Narrative [facility] - 11/19/2024 12:31 PM EDT Normal range for smokers: < 5.5 ng/ml Normal range for non-smokers: <=4.0 ng/ml Performed by [employer] electrochemiluminescent immunoassay. Results obtained with different test methods or kits cannot be used interchangeably. Farhad Castillo MD LAB BLOOD ORDERABLES Final Result Performing Organization Address [facility] Co de Phone Number [facility] [address] [place] [address] * (ABNORMAL) Comprehensive Metabolic Panel, Plasma (11/19/2024 11:26 AM EDT) Only the most recent of2 resultswithin the time period is included. Glucose, Plasma 174(H) 74 - 99 mg/dL 11/19/2024 12:19 PM EDT [facility] BUN, Plasma 20 8 - 23 mg/dL 11/19/2024 12:19 PM EDT [facility] Creatinine, Plasma 1.06 0.70 - 1.20 mg/dL 11/19/2024 12:19 PM EDT [facility] BUN/Creatinine Ratio 11/19/2024 12:19 PM EDT [facility] Sodium, Plasma 132(L) 136 - 145 mmol/L 11/19/2024 12:19 PM EDT [facility] Potassium, Plasma 4.7 3.6 - 4.9 mmol/L 11/19/2024 12:19 PM EDT [facility] Chloride, Plasma 101 97 - 107 mmol/L 11/19/2024 12:19 PM EDT [facility] CO2, Plasma 18(L) 22 - 29 mmol/L 11/19/2024 12:19 PM EDT [facility] Anion Gap 13 6 - 16 mmol/L 11/19/2024 12:19 PM EDT [facility] Total Calcium, Plasma 9.3 8.9 - 10.2 mg/dL 11/19/2024 12:19 PM EDT [facility] Total Protein 6.9 6.3 - 7.9 g/dL 11/19/2024 12:19 PM EDT [facility] Albumin, Plasma 3.9 3.5 - 5.2 g/dL 11/19/2024 12:19 PM EDT [facility] AST, Plasma 30 10 - 50 U/L 11/19/2024 12:19 PM EDT [facility] ALT, Plasma 20 10 - 50 U/L 11/19/2024 12:19 PM EDT [facility] Alkaline Phosphatase, Plasma 90 40 - 115 U/L 11/19/2024 12:19 PM EDT [facility] Total Bilirubin, Plasma 0.4 0.2 - 1.1 mg/dL 11/19/2024 12:19 PM EDT [facility] eGFRcr 80.3 mL/min/1.7 3m*2 11/19/2024 12:19 PM EDT [facility] Comment:Reported eGFRcr in m L/min/1.73m2 is based the CKD-EPI 2020 equation that does not use a race coefficient. Blood Venous blood specimen / Unknown Venipuncture / Unknown 11/19/2024 11:26 AM EDT 11/19/2024 11:47 AM EDT Farhad Castillo MD LAB BLOOD ORDERABLES Final Result [facility] [address] [place] [address] * CT Abdomen Pelvis w IV Contrast [...] Total DLP (Dose-Length Product): 3353.28 mGy.cm (accession [id number]), 3353.28 mGy.cm (accession [id number]) Please note: The reported value represents the [...] Total DLP (Dose-Length Product): 3353.28 mGy.cm (accession [id number]),3353.28 mGy.cm (accession [id number]) Please note: The reported valuerepresents the total [...] cm. . Other previously noted lesion within amddvbl5W/8 remains difficult to clearly delineate. Unremarkable gallbladder.Stable [...] Total DLP (Dose-Length Product): 3353.28 mGy.cm (accession [id number]), 3353.28 mGy.cm (accession [id number]) Please note: The reported value represents the [...] Total DLP (Dose-Length Product): 3353.28 mGy.cm (accession [id number]),3353.28 mGy.cm (accession [id number]) Please note: The reported valuerepresents the total [...] cm. . Other previously noted lesion within ehxqjzk5B/8 remains difficult to clearly delineate. Unremarkable gallbladder.Stable [...] Comment 10/09/2024 12:12 PM EDT [facility] Shearing Shed Hand ID Julia Wisdom 025 12:12 PM EDT [facility] Device ID [id number] 10/09/2024 12:12 PM EDT [facility] Specimen Type POC Capillary 10/09/2024 12:12 PM EDT [facility] Blood Capillary blood specimen / Unknown 10/09/2024 12:08 PM EDT 10/09/2024 12:12 PM EDT us Jj Carson MD LAB POINT OF CARE TE ST DOCKED DEVICE UNSOLICITED RESULTS Final Result [facility] [address] [place] [address] * XR Abdomen 1 View (10/09/2024 9:41 [...] - 99 mg/dL 10/09/2024 5:48 AM EDT [facility] BUN, Plasma 36(H) 8 - 23 mg/dL 10/09/2024 5:48 AM EDT [facility] Creatinine, Plasma 1.45(H) 0.70 - 1.20 mg/dL 10/09/2024 5:48 AM EDT [facility] BUN/Creatinine Ratio 25 10/09/2024 5:48 AM EDT [facility] Sodium, Plasma 131(L) 136 - 145 mmol/L 10/09/2024 5:48 AM EDT [facility] Potassium, Plasma 3.4(L) 3.6 - 4.9 mmol/L 10/09/2024 5:48 AM EDT [facility] Comment:Hemolyzed, result ma y be falsely increased. Chloride, Plasma 99 97 - 107 mmol/L 10/09/2024 5:48 AM EDT [facility] CO2, Plasma 17(L) 22 - 29 mmol/L 10/09/2024 5:48 AM EDT [facility] Anion Gap 15 6 - 16 mmol/L 10/09/2024 5:48 AM EDT [facility] Total Calcium, Plasma 8.8(L) 8.9 - 10.2 mg/dL 10/09/2024 5:48 AM EDT [facility] eGFRcr 55.2 mL/min/1.7 3m*2 10/09/2024 5:48 AM EDT [facility] Comment:Reported eGFRcr in m L/min/1.73m2 is based the CKD-EPI 2020 equation that does not use a race coefficient. Blood Venous blood specimen / Unknown Venipuncture / Unknown 10/09/2024 4:28 AM EDT 10/09/2024 5:03 AM EDT us Eva Barnes ARMORED CAR MESSENGER, DNP LAB BLOOD ORDERABLE S Final Result [facility] [address] [place] [address] * XR Gastrograffin Challenge (10/09/2024 1:17 AM [...] obstruction- 8 hour film. contrast given at 0- 10/08 TECHNIQUE: XR GASTROGRAFFIN CHALLENGE COMPARISON: CT [...] - 4.5 mg/dL 10/08/2024 6:00 AM EDT [facility] Blood Venous blood specimen / Unknown Venipuncture / Unknown 10/08/2024 4:59 AM EDT 10/08/2024 5:16 AM EDT us Jj Carson MD LAB BLOOD ORDERABLES Final Res ult [facility] [address] [place] [address] * (ABNORMAL) Magnesium, Plasma (10/08/2024 4:59 AM EDT) Only the most recent of2 resultswithin the time period is included. Magnesium, Plasma 1.7(L) 1.9 - 2.4 mg/dL 10/08/2024 6:00 AM EDT [facility] Blood Venous blood specimen / Unknown Venipuncture / Unknown 10/08/2024 4:59 AM EDT 10/08/2024 5:16 AM EDT us Jj Carson MD LAB BLOOD ORDERABLES Final Res ult Performing Organization Address City/[facility]/ZIP Co de Phone Number [facility] [address] [place] [address] * EKG now - STAT (adult) (10/08/2024 12:55 AM EDT) EKG DIAGNOSIS CLASS Abnormal MUSE ECG Ventricular Rate 85 BPM MUSE ECG Atrial Rate 85 BPM MUSE ECG AR Interval 168 ms MUSE ECG QRSD Interval 162 ms MUSE ECG QT Interval 442 ms MUSE ECG QTC Interval 525 ms MUSE ECG P [place] 16 degrees MUSE ECG R [place] -32 degrees MUSE ECG T Wave [place] 47 degrees MUSE ECG Diagnosis Normal sinus rhythm MUSE ECG Diagnosis Left axis deviation in the presence of LAFB MUSE ECG Diagnosis Right bundle branch block Bifascicular block MUSE ECG Diagnosis Minimal voltage criteria for LVH, may be normal variant ( R in aVL ) MUSE ECG Diagnosis Abnormal ECG MUSE ECG Diagnosis MUSE ECG Diagnosis Confirmed by Adarsh Pichardo ([id number]) on 10/08/2024 10:50:58 AM MUSE ECG 10/08/2024 12:5 5 AM EDT 10/08/2024 10:50 AM EDT us Mickie Jefferson MD ECG ORDERABLES Final Result MUSE ECG * ED HIV 1/2 Antibody/Antigen Screen w/Reflex to HIV 1/2 Differentiation (10/08/2024 12:55 AM EDT) HIV 1 & 2 Antibody/Antigen Screen Non Reactive Non Reactive 10/08/2024 2:00 AM EDT [facility] Comment:Screening for HIV 1 & 2 antibodies, and P24 antigen is NONREACTIVE. No confirmatory testing is required. Blood Venous blood specimen / Unknown Venipuncture / Unknown 10/08/2024 12:55 AM EDT 10/08/2024 1:11 AM EDT Result Kurt Jefferson MD LAB BLOOD ORDERABLES Final Re sult Performing Organization Address [facility] Co de Phone Number [facility] [address] [place] [address] * Lactic acid, venous (10/08/2024 12:55 AM EDT) Pathologist [facility] Lactate, Venous, Whole Blood 1.1 0.5 - 2.2 mmol/L LAB HEMATOLOGY METHOD 10/08/2024 1:10 AM EDT [facility] Blood Venous blood specimen / Unknown Venipuncture / Unknown 10/08/2024 12:55 AM EDT 10/08/2024 1:07 AM EDT Result Kurt Jefferson MD LAB BLOOD ORDERABLES Final Re sult Performing Organization Address [facility] de Phone Number [facility] [address] [place] [address] * Hepatitis C Antibody - ED (10/08/2024 12:55 AM EDT) [facility] Hepatitis C Antibody Negative Negative 10/08/2024 2:16 AM EDT [facility] Blood Venous blood specimen / Unknown Venipuncture / Unknown 10/08/2024 12:55 AM EDT 10/08/2024 1:11 AM EDT us Mickie Jefferson MD LAB BLOOD ORDERABLES Final Re sult Performing Organization Address [facility] Co de Phone Number [facility] [address] [place] [address] * (ABNORMAL) PT-INR (10/08/2024 12:55 AM EDT) [facility] Prothrombin Time 14.7(H) 12.0 - 14.3 sec 10/08/2024 1:27 AM EDT [facility] INR 1.2(H) 0.9 - 1.1 10/08/2024 1:27 AM EDT [facility] Blood Venous blood specimen / Unknown Venipuncture / Unknown 10/08/2024 12:55 AM EDT 10/08/2024 1:05 AM EDT Narrative [facility] - 10/08/2024 1:27 AM EDT OPTIMAL INR RANGES FOR PATIENT ON ORAL ANTICOAGULANT THERAPY Prevention of venous thromboembolism INR 2.0 to 3.0 In patients with heart disease: Atrial fibrillation INR 2.0 to 3.0 Valvular heart disease INR 2.0 to 3.0 Tissue heart valves INR 2.0 to 3.0 Mechanical prosthetic valves INR 2.5 to 3.5 Prevention of recurrent TN INR 2.5 to 3.5 us Mickie Jefferson MD LAB BLOOD ORDERABLES Final Re sult [facility] [address] [place] [address] * (ABNORMAL) CBC w/diff (10/08/2024 12:55 AM EDT) WBC Count 11.32(H) 3.70 - 10.30 10*3/uL LAB HEMATOLOGY METHOD 10/08/2024 1:09 AM EDT [facility] RBC Count 4.20(L) 4.60 - 6.10 10*6/uL LAB HEMATOLOGY METHOD 10/08/2024 1:09 AM EDT [facility] HGB 13.9 13.7 - 17.5 g/dL LAB HEMATOLOGY METHOD 10/08/2024 1:09 AM EDT [facility] HCT 38.0(L) 40.0 - 51.0 % LAB HEMATOLOGY METHOD 10/08/2024 1:09 AM EDT [facility] Platelet Count 293 155 - 369 10*3/uL LAB HEMATOLOGY METHOD 10/08/2024 1:09 AM EDT [facility] MCV 91 79 - 98 fL LAB HEMATOLOGY METHOD 10/08/2024 1:09 AM EDT [facility] MCH 33.1(H) 26.0 - 32.0 pg LAB HEMATOLOGY METHOD 10/08/2024 1:09 AM EDT [facility] MCHC 36.6(H) 30.7 - 35.5 g/dL LAB HEMATOLOGY METHOD 10/08/2024 1:09 AM EDT [facility] RDW 13.5 11.5 - 14.5 % LAB HEMATOLOGY METHOD 10/08/2024 1:09 AM EDT [facility] MPV 10.0 8.8 - 12.5 fL LAB HEMATOLOGY METHOD 10/08/2024 1:09 AM EDT [facility] nRBC 0.0 <=0.0 per 100 WBCs LAB HEMATOLOGY METHOD 10/08/2024 1:09 AM EDT [facility] Differential Type Automated LAB HEMATOLOGY METHOD 10/08/2024 1:09 AM EDT [facility] Neutrophils % 70 % LAB HEMATOLOGY METHOD 10/08/2024 1:09 AM EDT [facility] Lymphocytes % 10 % LAB HEMATOLOGY METHOD 10/08/2024 1:09 AM EDT [facility] Monocytes % 18 % LAB HEMATOLOGY METHOD 10/08/2024 1:09 AM EDT [facility] Eosinophils % 0 % LAB HEMATOLOGY METHOD 10/08/2024 1:09 AM EDT [facility] Basophils % 1 % LAB HEMATOLOGY METHOD 10/08/2024 1:09 AM EDT [facility] Immature Granulocytes % 1 % LAB HEMATOLOGY METHOD 10/08/2024 1:09 AM EDT [facility] Neutrophils Absolute 7.97(H) 1.60 - 6.10 10*3/uL LAB HEMATOLOGY METHOD 10/08/2024 1:09 AM EDT [facility] Lymphocytes Absolute 1.17(L) 1.20 - 3.90 10*3/uL LAB HEMATOLOGY METHOD 10/08/2024 1:09 AM EDT [facility] Monocytes Absolute 2.01(H) 0.30 - 0.90 10*3/uL LAB HEMATOLOGY METHOD 10/08/2024 1:09 AM EDT [facility] Eosinophils Absolute 0.02 0.00 - 0.50 10*3/uL LAB HEMATOLOGY METHOD 10/08/2024 1:09 AM EDT [facility] Basophils Absolute 0.07 0.00 - 0.10 10*3/uL LAB HEMATOLOGY METHOD 10/08/2024 1:09 AM EDT [facility] Immature Granulocytes Absolute 0.08(H) 0.00 - 0.06 10*3/uL LAB HEMATOLOGY METHOD 10/08/2024 1:09 AM EDT [facility] Blood Venous blood specimen / Unknown Venipuncture / Unknown 10/08/2024 12:55 AM EDT 10/08/2024 1:05 AM EDT Narrative [facility] - 10/08/2024 1:09 AM EDT Therapeutic decision making should be based on absolute values, rather than percentages. us Mickie Jefferson MD LAB BLOOD ORDERABLES Final Re sult [facility] [address] [place] [address] * Type and screen (10/08/2024 12:55 AM [...] Final Result Performing Organization Address [facility] de Phone Number BLOOD BANK [address] [place] [address], * CT OUTSIDE IMAGES (10/07/2024 7:58 PM EDT) Anatomical Region Laterality Modality Computed Tomogra phy 10/07/2024 7:58 PM EDT External Provider IMG CT PROCEDURES Final Result from Last 3 Months Insurance [place] Advance Directives * Full Code (Latest Code Status on File) Date Activated Date Inactivated Comments 10/08/2024 4:28 AM 10/09/2024 5:43 PM Question Answer Comments I have reviewed the capacity from the link above and, if needed, have updated to appropriate status: Yes Care Teams Cotton Classer Relationship Specialty Start Date End Date Tayo Jones MD [address] [place] [address] PCP - General 07/14/24
--- OUTSIDE RECORDS SUMMARY | 2024-12-15 09:54 | XMS_ITS | Encounter Summary ---
Author Organization [facility] Address [address] [place] [address] Care Team Providers Care Inspector [employer] Name Role Phone Jeremy Gil MD Unavailable [phone] Andres Alcantara DPM Unavailable Grant Fletcher MD Unavailable [phone] Niko Cueva MD Unavailable None, None Primary Care Provider UnavailGm Vigil DPM Unavailable Reina Byrd NP Unavailable Unavailable Encounter Details Date Type Department Care Team (Late st Contact Info) Description 09/08/2020 Clinical Update [facility] Physicians - Infectious Diseases, [facility] [address] [place] [address] [phone] Grant Fletcher MD [address] [place] [address] [id number] Social History Tobacco Use Types Packs/Day Years [...] (SGPT) (09/07/2020) ALT 5 U/L Plasma Result [facility] Grant Fletcher MD CHEMISTRY ORDERABLES Final Re sult * ALKALINE PHOSPHATASE (09/07/2020) Alkaline Phosphatase 98 U/L Plasma Result [facility] Grant Fletcher MD CHEMISTRY ORDERABLES Final Re sult * ALBUMIN (09/07/2020) Albumin 2.6 Plasma Result [facility] Grant Fletcher MD CHEMISTRY ORDERABLES Final [...] on filedocumented in this encounter Care Teams Inspector [employer]ined Parts Relationship Specialty Start Date End Date None, None [address] [place] [address] PCP - General 10/26/20 Jeremy Gil MD [address] [place] [address] [address] [place] [address] Internal Medicine 08/19/20 Andres Alcantara DPM [address] [facility] [place] [address] Resident Podiatry 08/22/20 Grant Fletcher MD [address] [facility] [address] [place] [address] Infectious Diseases 09/08/20 Niko Cueva MD [address] [facility] [address] [place] [address] Vascular Surgery 09/16/20 Gm Flor DPM [address] [facility] [place], [place] [id number] Podiatry 11/01/20 Reina Byrd NP [address] [facility] [place] [address] Nurse Practitioner Vascular Surgery 11/30/20 documented as of this encounter
--- OUTSIDE RECORDS SUMMARY | 2024-12-15 09:54 | XMS_ITS | Clinical Summary ---
Author Organization [facility] Address [address] [place] [address] Care Team Providers Care Core Sucker Name Role Phone Jeremy Gil MD Unavailable [phone] Andres Alcantara DPM Unavailable Grant Fletcher MD Unavailable [phone] Niko Cueva MD Unavailable None, None Primary Care Provider UnavailGm Vigil DPM Unavailable [phone] Reina Byrd NP Unavailable Unavailable Allergies No known active allergies Medications Insulin Glargine (Lantus) 100 unit/mL (3 mL) Solostar INPNIndications :Type 2 diabetes mellitus with hyperglycemia, with long-term current use of insulin ([facility]) 16 Units by Subcutaneous route every 24 [...] - 1-dose 75+ series) 2039 Insurance MEDICAID [place] Advance Directives For more information, please contact: [phone] * Full Code (Latest Code Status on File) Date Activated Date Inactivated Comments 08/19/2020 3:05 AM No automated ch est compression devices for VAD Patients Care Teams Core Sucker Relationship Specialty Start Date End Date None, None [address] [place] [address] PCP - General 10/26/20 Jeremy Gil MD [address] [facility] [address] [place] [address] Internal Medicine 08/19/20 Andres Alcantara DPM [address] [facility] [place] [address] Resident Podiatry 08/22/20 Grant Fletcher MD [address] [place] [address]. [address] [place] [address] Infectious Diseases 09/08/20 Niko Cueva MD [facility] [address] [place] [address] Vascular Surgery 09/16/20 Gm Flor DPM [address] [place] [address] Podiatry 11/01/20 Reina Byrd NP [address] [address] [place] [address] Nurse Practitioner Vascular Surgery 11/30/20
--- OUTSIDE RECORDS SUMMARY | 2024-12-15 09:54 | XMS_ITS ---
Author Organization [facility] Address [address] [place] [address] Care Team Providers Care [employer] Name Role Phone Tayo Jones MD Primary Care Provider [phone] Active Problems Problem Noted Date Diagnosed Date [...]
--- OUTSIDE RECORDS SUMMARY | 2024-12-15 09:54 | XMS_ITS | Encounter Summary ---
Author Organization [facility] Address [address] [place] [address] Care Team Providers Care Email Manager Name Role Phone Tayo Jones MD Primary Care Provider [phone] Encounter Details Date Type Department Care Team [...] AM EDT Appointment Cardiac Imaging [address] [place] [address] 12/17/2024 9:30 AM EDT Appointment Cardiac Imaging [address] [place] [address] 12/17/2024 4:15 PM EDT Appointment [facility] [address], 1st [place] [address] 12/24/2024 9:15 AM EDT Office Visit [facility] Mult[facility] On[facility] [address] [place] [address] Farhad Castillo MD [address] [address] documented as of this encounter Visit Diagnoses Not on filedocumented in this encounter Additional Health Concerns Assessment Noted Time A fall risk assessment has been complete d for the patient 07/23/2024 8:54 AM EDT A Body Mass Index follow-up plan has been documented for the patient 11/24/2024 5:29 PM EDT documented as of this encounter Care Teams Email Manager Relationship Specialty Start Date End Date Tayo Jones MD [address] [place] [address] PCP - General 07/14/24 documented as of this encounter
[2024-12-15 10:05] LABS: Alanine Aminotransferase 19 U/L (12-78); Albumin Level 3.8 g/dl (3.5-5.0); Albumin/Globulin Ratio 1.4 (1.1-1.8); Alkaline Phosphatase 79 U/L (38-126); Anion Gap 14.5 mEq/L (5-15); Aspartate Amino Transferase 33 U/L (17-59); Bilirubin,Total 0.5 mg/dl (0.2-1.3); Blood Urea Nitrogen 12 mg/dl (9-20); Calcium 9.0 mg/dl (8.4-10.2); Carbon Dioxide 20 mmol/L (22.0-30.0); Chloride 107 mmol/L (98-107); Creatinine Clearance Estimated 143 mL/min (50-200); Creatinine,Serum 0.90 mg/dl (0.66-1.25); Estimated Glomerular Filt Rate 86 ml/min (>60); GFR (African American) 104 ML/MIN (>60); Globulin 2.8 g/dL (1.3-3.2); Glucose 157 mg/dl (74-100); Potassium 4.5 mmoL/L (3.5-5.1); Sodium 137 mmol/L (136-145); Total Protein,Serum 6.6 g/dl (6.3-8.2)
[2024-12-15] MEDS: SODIUM CHLORIDE 0.9% 10ML FLUSH SYRINGE 10 ML IV (10:30)
== END 2024-12-15 10:30 | disposition home or self-care (01) ==
PROVIDERS: PCP Family Medicine; Visit Provider Internal Medicine Medical Oncology
DX: C18.2 Malignant neoplasm of ascending colon (principal)
CPT/HCPCS: 36591; 80053; 85025; J1642

== ENCOUNTER 2024-12-16 10:04 | Outpatient (CLI) | payer MEDICAID, SELFPAY ==
--- OUTSIDE RECORDS SUMMARY | 2024-11-17 05:00 | XMS_ITS | Continuity of Care Document ---
Author Organization [address] [place] [address] [address] [place] [address] Phone Care Team Providers Care Efficiency Manager Name Role Phone Vania Etienne NP Unavailable [...] Diagnoses Date Provider Providers Copied on Encounter [address] [place] [address], [address] [facility] 300, [place], [place], [id number], tel:[phone] [facility] ear care exam (chief complaint) Impacted cerumen, bilateral Tremaine-Hard elder Vania. [address] [facility], [address], [place], [address], [place]. Referring Provider: Tayo Jones. [address] [place] [address], [address] [facility], [place], [place], [id number], tel:[phone] [facility] Nail dystrophyType 2 diabetes mellitus with diabetic peripheral angiopathy without gangreneLong term (current) use of insulinOnychog ryphosis 5 [place]. [address] [place] [address], [address] [facility] 300, [place], [place], [id number], [place] tel:[phone] [facility] Diabetic eye exam (chief complaint) Ocular hypertension, bilateralType 2 diabetes mellitus without complicationsC ombined forms of age-related cataract, bilateral 5 Joy Vides. , [place]. Referring Provider: Tayo Jones. [address] [place] [address], [address] [place] [address], [place], [place], [address], [place] tel:[phone] [facility] No Information 5 Rahul Villatoro. , [place]. [address] [place] [address], [address] [place] [address], [place], [place], [id number], [place] tel:[phone] [facility] Type 2 diabetes mellitus with diabetic peripheral angiopathy without gangreneLong term (current) use of oral hypoglycemic drugsNail dystrophyOnych ogryphosis 5 [place]. SBSQ NF CARE LOW MDM [address] [place] [address], [address] [place], [place] [address]te [address], [place], [place], [id number], [place] tel:[phone] [facility] Acquired absence of other left toe(s)Type 2 diabetes w diabetic peripheral angiopath w/o gangreneNail dystrophyOnych ogryphosis 4 [place] SBSQ NF CARE SF MDM [address] [place] [address], [address] [place] [address], [place], [id number], [place] tel:[phone] [facility] Acquired absence of other left toe(s)Tinea unguiumType 2 diabetes w diabetic peripheral angiopath w/o gangreneNail dystrophy [address] [facility], [address], [place], [address], [place]. [facility], [address] [place], [place] [address]te [address], [place], [place], [id number], [place] tel:[phone] [facility] Acquired absence of other left toe(s)Nail dystrophyTinea unguiumType 2 diabetes w diabetic peripheral angiopath w/o gangrene 4 [address], [address], [place], [address], [place]. Referring Provider: Tayo Jones. [facility], [address] [place], [place] [address]te [address], [place], [place], [id number], tel:[phone] [place] [address] Cataract (chief complaint) Combined forms of age-related cataract, bilateralType 2 diabetes mellitus without complicationsO cular hypertension, bilateral 4 [place], [place]. Referring Provider: Tayo Jones. [address] [place] [address], [address] [place] [address], [place], [place], [id number], tel:[phone] [place] [address] No Information 4 [place], [place]. [facility], [address] [place], [place] [address]te [facility], [place], [place], [address], [place] tel:[phone] [place] [address] Acquired absence of other left toe(s)Tinea unguiumNail dystrophyType 2 diabetes w diabetic peripheral angiopath w/o gangrene [address] [facility], [address], [place], [address], [place]. Referring Provider: Tayo Jones. [address] [place] [address], [address] [place], [place] [address]te [address], [place], [place], [address], [place] tel:[phone] [place] [address] Acquired absence of other left toe(s)Tinea unguiumNail dystrophyType 2 diabetes w diabetic peripheral angiopath w/o gangrene 3 Jacob Sims [address], [address], [place], [address], [place]. [address] [place] [address], [address] [place], [place] [address], [place], [address], [place] tel:[phone] [place] [address] No Information 3 Andres Horne. [address], [address], [place], [place], [address], [place]. tel:[phone] Referring Provider: Tayo Jones. [address] [place] [address], [address] [place], [place] [address], [place], [place], [address], [place] tel:[phone] [facility] Nail dystrophyTinea unguiumType 2 diabetes w diabetic peripheral angiopath w/o gangreneAcquir ed absence of other left toe(s) [address] [facility], [address], [place], [address], [place]. Referring Provider: Tayo Jones. [address] [place] [address], [address] [place], [place] [address], [place], [address], [place] tel:[phone] [facility] Encounter for dental examination and cleaning without abnormal findings 3 Ivett Ye. , [place]. tel:[phone] Referring Provider: Tayo Jones. [address] [place] [address], [address] [place], [place] [address], [place], [address], [place] tel:[phone] [facility] Diabetic eye exam (chief complaint) Type 2 diabetes mellitus without complicationsC ombined forms of age-related cataract, bilateral [address] [facility], [address], [place], [address], [place]. Referring Provider: Tayo Jones. [address] [place] [address], [address] [place], [place] [address], [place], [address], [place] tel:[phone] [facility] Acquired absence of other left toe(s)Tinea unguiumType 2 diabetes w diabetic peripheral angiopath w/o gangrene [address] [facility], [address], [place], [address], [place]. Referring Provider: Tayo Jones. [address] [place] [address], [address] [place], [place] [address], [place], [address], [place] tel:[phone] [facility] Encounter for dental examination and cleaning without abnormal findings 3 [place], [place]. tel:[phone] Referring Provider: Tayo Jones. [facility], [address] [place], [place] [address]te [address], [place], [address], [place] tel:[phone] [facility] Acquired absence of other left toe(s)Tinea unguiumType 2 diabetes w diabetic peripheral angiopath w/o gangrene [address] [facility], [address], [place], [address], [place]. Referring Provider: Tayo Jones. [facility], [address] [place] [address] [address], [place], [address], [place] tel:[phone] [facility] Acquired absence of other left toe(s)Tinea unguiumType 2 diabetes w diabetic peripheral angiopath w/o gangreneNail dystrophy 2 [address] [place] [address], [address], [place], [address], [place]. Referring Provider: Tayo Jones. [facility], [address] [place] [address] [address], [place], [place], [address], [place] tel:[phone] [facility] Encounter for dental examination and cleaning without abnormal findings 2 [place], [place]. Referring Provider: Tayo Jones. [facility], [address] [place], [place] [address]te [address], [place], [address], [place] tel:[phone] [facility] Type 2 diabetes w diabetic peripheral angiopath w/o gangreneTinea unguiumAcquire d absence of other left toe(s) 2 [place], [place]. Referring Provider: Tayo Jones. [facility], [address] [place], [place] [address]te [address], [place], [address], [place] tel:[phone] [facility] Tinea unguiumType 2 diabetes w diabetic peripheral angiopath w/o gangreneAcquir ed absence of other left toe(s) [address] [facility], [address], [place], [address], [place]. Referring Provider: Tayo Jones. [address] [place] [address], [address] [facility], [place], [place], [id number], tel:[phone] [facility] Encounter for dental exam and cleaning w/o abnormal findings [address] [facility], [address], [place], [place], [address], [place]. tel:[phone] Referring Provider: Tayo Jones. [address] [place] [address], [address] [facility], [place], [place], [address], tel:[phone] [facility] Diabetic eye exam (chief complaint) Combined forms of age-related cataract, bilateralType 2 diabetes mellitus without complications [address] [facility], [address], [place], [address], [place]. Referring Provider: Tayo Jones. [address] [place] [address], [address] [facility], [place], [place], [address], tel:[phone] [facility] No Information [address] [facility], [address], [place], [address], [place]. Family History Family Member Type Diagnosis Age At Onset No Information Payers Payer name Insurance type Covered alliance party ID Authoriza tion(s) Medicaid [facility] [id number] Social History Type Description Quantity Date Captured [...] BOOKED Appointment Nayan Womack BOOKED Patient Education Earwax Blockage: Care I [...] Information Instructions Date Instruction Additional Infor mation [facility] if pt, family, and/or facility wish to pursue. Follow up in 6-9 months or sooner if needed. Related to Impacted cerumen, bilateral All of the documente d thickened nails (which includes those nails 2 mm or more in thickness, and possible mycotic component to the nails) were debrided in both length and thickness using both a nail nipper and an electric rotary carbon plant grinder in an atraumatic fashion as needed ; this was performed in an attempt to prevent pain and reduce risk of infection. Alcohol applied to the digits afterwards. PT tolerated procedure well. 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 Related to Nail dystrophy All of the documente d thickened nails (which includes those nails 2 mm or more in thickness, and possible mycotic component to the nails) were debrided in both length and thickness using both a nail nipper and an electric rotary carbon plant grinder in an atraumatic fashion; this was performed in an attempt to prevent pain and reduce risk of infection. Alcohol applied to the digits afterwards. Related to Onychogryphosis A diabetic exam perf ormed. discussed importance [...]
--- OUTSIDE RECORDS SUMMARY | 2024-11-19 07:09 | XMS_ITS | Encounter Summary ---
Author Organization [facility] Address [address] [id number] Care Team Providers Care Firefighter Name Role Phone Tayo Jones MD Primary Care Provider [phone] Reason for Referral * Imaging (Routine) - Closed Specialty Diagnoses / Procedures Referred By Samia pagan Referred To Contact Radiology Diagnoses Metastatic colon cancer to liver (CMS/HCC) Procedures CT Abdomen Pelvis w IV Contrast Farhad Castillo MD [address] [address] Phone: tel: fax: Referral ID Status Reason Start Date Expiration Date Visits Re quested Visits Authorized [id number] Closed 08/03/2024 02/02/2026 1 1 * Imaging (Routine) - Closed Specialty Diagnoses / Procedures Referred By Samia pagan Referred To Contact Radiology Diagnoses Metastatic colon cancer to liver (CMS/HCC) Procedures CT Chest w IV Contrast Farhad Castillo MD [address] [address] Phone: tel: fax: Referral ID Status Reason Start Date Expiration Date Visits Re quested Visits Authorized [id number] Closed 08/03/2024 02/02/2026 1 1 Reason for Visit * Imaging (Routine) - Closed Specialty Diagnoses / Procedures Referred By Samia t Referred To Contact Radiology Diagnoses Metastatic colon cancer to liver (CMS/HCC) Procedures CT Abdomen Pelvis w IV Contrast Farhad Castillo MD [address] [place] [phone] Phone: tel: fax: Referral ID Status Reason Start Date Expiration Date Visits Re quested Visits Authorized [id number] Closed 08/03/2024 02/02/2026 1 1 Encounter Details Date Type Department Care Team (Latest Contact Info) Description 11/19/2024 7:09 AM EDT - 11/19/2024 11:59 PM EDT Hospital Encounter [facility] [address] [place] [address] Metastatic colon cancer to liver (CMS/HCC) Discharge Disposition: Home or Self Care Social History Tobacco Use Types Packs/Day Years Used Date Smoking Tobacco: Never Smokeless Tobacco: Never Alcohol Use Standard Drinks/Week Comments Never 0 (1 standard drink = 0.6 oz pur e alcohol) PHQ-2 Answer Date Recorded Patient Health Questionnaire-2 Score 0 11/19/2024 Humiliation, Afraid, Rape, and Kick questionnair e [...] by your partner or ex-partner? No 10/09/2024 AUDIT-C Answer Date Recorded Q1: How often do you have a drink containing alcohol? Never 11/19/2024 Q2: How many drinks containi ng alcohol do you have on a typical day when you are drinking? Patient does not drink Q3: How often do you have si x or more drinks on one occasion? Never 11/19/2024 Hunger Vital Sign Answer Date Recorded Within [...] any time in the past 12 m [facility], were you homeless or living in a [place] health care facility (including now)? No 10/09/2024 Utilities Answer Date [...] as of this encounter Functional Status * AUDIT-C Score Answer Date of Assessment Author 0 11/19/2024 10:43 AM Jr Martínez * Question Answer Date of Assessment Author Q1: How often do you have a drink containing alcohol? Never 11/19/2024 10:43 AM Jr Martínez Q2: How many drinks containing alcohol do you have on a typical day when you are drinking? Patient does not drink 11/19/2024 10:43 AM Jr Martínez Q3: How often do you have six or more drinks on one occasion? Never 11/19/2024 10:43 AM Jr Martínez * Over the past 2 weeks, how often have you been bothered by any of the following problems? Question Answer Date of Assessment Author Little interest or pleasure in doing things Not at all 11/19/2024 10:49 AM EDT Jr Amaro Feeling down, depressed, or hopeless Not at all 11/19/2024 10:49 AM EDT Jr Amaro Patient Health Questionnaire-2 Score 0 11/19/2024 10:49 AM EDT Anshugiuseppe Jr Sarmientonatasha Pagan documented as of this encounter Medications at [...] in the evening. Take with meals. 07/30/2023 doxycycline (Vibramycin) 100 MG capsule 11/11/2024 ferrous sulfate 325 (65 Fe) MG EC tablet 08/12/2023 insulin lispro (Admelog, HumaLOG) 100 UNIT/ML injection pen Inject 10 Units under the skin 3 (three) times a day with meals. 08/01/2023 Lantus SoloStar 100 UNIT/ML injection pen Inject 35 Units under the skin nightly. 05/29/2024 lisinopril 20 MG tablet 10/26/2024 lisinopril-hydroCH LOROthiazide 20-25 MG tablet Take 1 tablet by mouth daily. magnesium oxide (Mag-Ox) 400 MG tablet 11/07/2024 Multiple Vitamin (multivitamin) tablet Take 1 tablet by mouth daily. ondansetron (Zofran) 4 MG tablet 04/19/2024 potassium chloride CR (Klor-Con M20) 20 MEQ ER tablet 11/09/2024 Quercetin 500 MG capsule Take 2 tablets by mouth daily. sodium bicarbonate 650 MG tablet 11/09/2024 spironolactone (Aldactone) 25 MG tablet Take 1 tablet by mouth daily. 07/11/2024 documented as of this encounter Miscellaneous Notes * Alexsandra Del Real 11/19/2024 7:12 AM EDT Images from the original note were not included. 1639 Caring for Yourself after Contrast Imaging If you had ORAL contrast: ? You can go back to your normal diet and activities as tolerated. ? Drink plenty of fluids, unless told otherwise. If you had IV contrast: ? You can go back to your normal diet and activities as tolerated. ? Drink plenty of fluids, unless told otherwise. ? Leave a bandage on the site for 30 minutes (where the IV was inserted or blood was drawn). If you had Intravesical (bladder) contrast: ? Return to normal diet and activity. What you need to know about delayed reaction to IV contrast What is IV Contrast? ? Contrast is a dye that is put into your body through an IV. ? It is used for imaging scans such as CT scans and MRIs. ? The contrast makes blood vessels, organs and other parts of your body show up better on the scan. What do I need to do after IV contrast? ? Drink lots of fluids. This will help flush the contrast out of your system. ? Drink 2-3 extra glasses or bottles of water within 4 hours of your scan. What is a contrast reaction? ? A contrast reaction is a bad side effect from the contrast dye. ? It is rare but it does happen. ? They can be mild - such as sneezing, itching, or hives. ? They can be severe - such as trouble breathing, throat swelling, and irregular heart beat. When do these reactions happen? ? They often happen right after the contrast is injected. ? Some happen hours after going home. Go to the nearest Emergency Department right away if you have any of these symptoms after you leavethe clinic or hospital. ? Sneezing ? Itching in your mouth, throat, eyes, ears, or skin ? Rash or hives ? Throwing up or stomach sickness ? High heart rate or ?racing? of your heart ? Feeling dizzy or woozy ? Feeling short of breath or like you can?t take a deep breath ? Feeling very anxious for no other reason It is very important that these reactions be treated. Tell the doctor or nurse that you are having a reaction to IV contrast dye. Do not ignore any sign of a reaction! All reactions must be assessed by a doctor. Call 911 if you are alone and your reaction is more than mild sneezing or itching. If you have a mild reaction, call to speak with a Radiologist, explain that you havehad a contrast reaction, as this needs to be added to your medical record. documented in this encounter Plan of Treatment Upcoming Encounters Date Type Department Care Team (Late st Contact Info) Description 12/24/2024 9:15 AM EDT Office Visit [facility] Mult[facility] [address] [place] [address] Farhad Castillo MD [address] [phone] documented as of this encounter Procedures Procedure Name Priority Date/Time Associated Diagnosis Comments CT ABDOMEN PELVIS W IV CONTRAST Routine 11/19/2024 8:55 AM EDT Metastatic colon cancer to liver (CMS/HCC) CT CHEST W IV CONTRAST Routine 11/19/2024 8:55 AM EDT Metastatic colon cancer to liver (CMS/HCC) documented in this encounter Results * CT Abdomen Pelvis w IV Contrast (11/19/2024 8:55 AM EDT) Anatomical Region Laterality Modality Abdomen, Pelvis Computed Tomogra phy Impressions 11/19/2024 10:42 AM EDT Chest: No evidence of disease progression. Abdomen/Pelvis: Continued slight interval decrease in size of liver metastatic deposits. Consider MRI for next follow-up since background parenchymal liver changes create difficulty in visualization of lesions. CRITICAL RESULT: No. COMMUNICATION: Per this written report. Drafted by Da Trevino MD on 11/19/2024 9:35 AM Final report signed by Da Trevino MD on 11/19/2024 10:42 AM Narrative 11/19/2024 10:42 AM EDT CLINICAL INDICATION: Metastatic colon cancer to liver (CMS/HCC) TECHNIQUE: Multiple axial CT images were obtained from thoracic inlet through pubic symphysis following administration of IV contrast, Omnipaque 300, 100 mL. Reformatted images in the coronal and sagittal planes were generated from the axial data set to facilitate diagnostic accuracy. Total DLP (Dose-Length Product): 3353.28 mGy.cm (accession [id number]), 3353.28 mGy.cm (accession [id number]) Please note: The reported value represents the total of one or more individual components during the CT acquisition on this date and at this time, and as such, the same value may appear in more than one CT report depending on the interpreting/reporting physicians. COMPARISON: Chest CT from July 23, 2024. Abdominal CT from October 07, 2024 FINDINGS: Chest: Lymph Nodes and Mediastinum: No lymphadenopathy by CT size criteria. No mediastinal mass lesions. Cardiovascular: The heart is normal in caliber. Thoracic great vessels are patent. Lungs and Pleura: Stable subcentimeter left lingular nodules (series 4 image 248). Stable subcentimeter intrafissural nodule within the right lung (series 4 image 230). No pleural effusions or suspicious thickening. Musculoskeletal and Body Wall: No clearly aggressive bone lesions. Abdomen/Pelvis: Solid Abdominal Organs: Liver demonstrates fatty change and fissural widening which could indicate underlying parenchymal disease. There is a 2.2 cm low-attenuation lesion at the liver dome (series 12 image 20 ), perhaps slightly smaller in size when compared to the prior study. Further low-attenuation lesion as seen on series 12 image 38 currently measures 1.6 cm, previously 2.7 cm. . Other previously noted lesion within segment 4A/8 remains difficult to clearly delineate. Unremarkable gallbladder. Stable nodule within the tip of the pancreatic tail (series 5 image 96). Unremarkable adrenal glands. No hydronephrosis. No suspicious renal mass. There is a small right renal cyst. GI Tract/Mesentery/Peritoneum: Prior right colectomy. Large and small bowel appear normal in caliber. There is a ventral abdominal wall hernia containing small bowel. Mild wall thickening of the segment of small bowel leading to the ileocolic anastomosis. There are subcentimeter likely reactive mesenteric lymph nodes. Pelvic Viscera: No discrete pelvic mass. Lymph Nodes/Vasculature: Splenoportal venous system is patent. Abdominal aorta is normal in caliber and patent. Borderline-enlarged portacaval lymph nodes are again noted measuring up to 1.2 cm (series 9 image 83). Free Fluid: No ascites Musculoskeletal and Body Wall: No clearly aggressive bone lesions. Procedure Note Belinda, Da A, MD - 11/19/2024 CLINICAL INDICATION: Metastatic colon cancer to liver (CMS/HCC) TECHNIQUE: Multiple axial CT images were obtained from thoracic inlet through pubicsymphysis following administration of IV contrast, Omnipaque 300, 100 mL.Reformatted images in the coronal and sagittal planes were generated fromthe axial data set to facilitate diagnostic accuracy. Total DLP (Dose-Length Product): 3353.28 mGy.cm (accession [id number]),3353.28 mGy.cm (accession [id number]) Please note: The reported valuerepresents the total of one or more individual components during the CTacquisition on this date and at this time, and as such, the same value mayappear in more than one CT report depending on the interpreting/reportingphysicians. COMPARISON: Chest CT from July 23, 2024. Abdominal CT from October 07, 2024 FINDINGS: Chest: Lymph Nodes and Mediastinum: No lymphadenopathy by CT size criteria. Nomediastinal mass lesions. Cardiovascular: The heart is normal in caliber. Thoracic great vessels arepatent. Lungs and Pleura: Stable subcentimeter left lingular nodules (series 4image 248). Stable subcentimeter intrafissural nodule within the rightlung (series 4 image 230). No pleural effusions or suspiciousthickening. Musculoskeletal and Body Wall: No clearly aggressive bone lesions. Abdomen/Pelvis: Solid Abdominal Organs: Liver demonstrates fatty change and fissuralwidening which could indicate underlying parenchymal disease. There is a2.2 cm low-attenuation lesion at the liver dome (series 12 image 20 ),perhaps slightly smaller in size when compared to the prior study. Furtherlow-attenuation lesion as seen on series 12 image 38 currently measures1.6 cm, previously 2.7 cm. . Other previously noted lesion within xvzknag4P/8 remains difficult to clearly delineate. Unremarkable gallbladder.Stable nodule within the tip of the pancreatic tail (series 5 image 96).Unremarkable adrenal glands. No hydronephrosis. No suspicious renal mass.There is a small right renal cyst. GI Tract/Mesentery/Peritoneum: Prior right colectomy. Large and smallbowel appear normal in caliber. There is a ventral abdominal wall herniacontaining small bowel. Mild wall thickening of the segment of small bowelleading to the ileocolic anastomosis. There are subcentimeter likelyreactive mesenteric lymph nodes. Pelvic Viscera: No discrete pelvic mass. Lymph Nodes/Vasculature: Splenoportal venous system is patent. Abdominalaorta is normal in caliber and patent. Borderline-enlarged portacavallymph nodes are again noted measuring up to 1.2 cm (series 9 image 83). Free Fluid: No ascites Musculoskeletal and Body Wall: No clearly aggressive bone lesions. IMPRESSION: Chest: No evidence of disease progression. Abdomen/Pelvis: Continued slight interval decrease in size of livermetastatic deposits. Consider MRI for next follow-up since backgroundparenchymal liver changes create difficulty in visualization of lesions. CRITICAL RESULT: No. COMMUNICATION: Per this written report. Drafted by Da Trevino MD on 11/19/2024 9:35 AM Final report signed by Da Trevino MD on 11/19/2024 10:42 AM Farhad Castillo MD IMG CT PROCEDURES Final Re sult * CT Chest w IV Contrast (11/19/2024 8:55 AM EDT) Anatomical Region Laterality Modality Chest Computed Tomogra phy Impressions 11/19/2024 10:42 AM EDT Chest: No evidence of disease progression. Abdomen/Pelvis: Continued slight interval decrease in size of liver metastatic deposits. Consider MRI for next follow-up since background parenchymal liver changes create difficulty in visualization of lesions. CRITICAL RESULT: No. COMMUNICATION: Per this written report. Drafted by Da Trevino MD on 11/19/2024 9:35 AM Final report signed by Da Trevino MD on 11/19/2024 10:42 AM Narrative 11/19/2024 10:42 AM EDT CLINICAL INDICATION: Metastatic colon cancer to liver (CMS/HCC) TECHNIQUE: Multiple axial CT images were obtained from thoracic inlet through pubic symphysis following administration of IV contrast, Omnipaque 300, 100 mL. Reformatted images in the coronal and sagittal planes were generated from the axial data set to facilitate diagnostic accuracy. Total DLP (Dose-Length Product): 3353.28 mGy.cm (accession [id number]), 3353.28 mGy.cm (accession [id number]) Please note: The reported value represents the total of one or more individual components during the CT acquisition on this date and at this time, and as such, the same value may appear in more than one CT report depending on the interpreting/reporting physicians. COMPARISON: Chest CT from July 23, 2024. Abdominal CT from October 07, 2024 FINDINGS: Chest: Lymph Nodes and Mediastinum: No lymphadenopathy by CT size criteria. No mediastinal mass lesions. Cardiovascular: The heart is normal in caliber. Thoracic great vessels are patent. Lungs and Pleura: Stable subcentimeter left lingular nodules (series 4 image 248). Stable subcentimeter intrafissural nodule within the right lung (series 4 image 230). No pleural effusions or suspicious thickening. Musculoskeletal and Body Wall: No clearly aggressive bone lesions. Abdomen/Pelvis: Solid Abdominal Organs: Liver demonstrates fatty change and fissural widening which could indicate underlying parenchymal disease. There is a 2.2 cm low-attenuation lesion at the liver dome (series 12 image 20 ), perhaps slightly smaller in size when compared to the prior study. Further low-attenuation lesion as seen on series 12 image 38 currently measures 1.6 cm, previously 2.7 cm. . Other previously noted lesion within segment 4A/8 remains difficult to clearly delineate. Unremarkable gallbladder. Stable nodule within the tip of the pancreatic tail (series 5 image 96). Unremarkable adrenal glands. No hydronephrosis. No suspicious renal mass. There is a small right renal cyst. GI Tract/Mesentery/Peritoneum: Prior right colectomy. Large and small bowel appear normal in caliber. There is a ventral abdominal wall hernia containing small bowel. Mild wall thickening of the segment of small bowel leading to the ileocolic anastomosis. There are subcentimeter likely reactive mesenteric lymph nodes. Pelvic Viscera: No discrete pelvic mass. Lymph Nodes/Vasculature: Splenoportal venous system is patent. Abdominal aorta is normal in caliber and patent. Borderline-enlarged portacaval lymph nodes are again noted measuring up to 1.2 cm (series 9 image 83). Free Fluid: No ascites Musculoskeletal and Body Wall: No clearly aggressive bone lesions. Procedure Note Da Trevino MD - 11/19/2024 CLINICAL INDICATION: Metastatic colon cancer to liver (CMS/HCC) TECHNIQUE: Multiple axial CT images were obtained from thoracic inlet through pubicsymphysis following administration of IV contrast, Omnipaque 300, 100 mL.Reformatted images in the coronal and sagittal planes were generated fromthe axial data set to facilitate diagnostic accuracy. Total DLP (Dose-Length Product): 3353.28 mGy.cm (accession [id number]),3353.28 mGy.cm (accession [id number]) Please note: The reported valuerepresents the total of one or more individual components during the CTacquisition on this date and at this time, and as such, the same value mayappear in more than one CT report depending on the interpreting/reportingphysicians. COMPARISON: Chest CT from July 23, 2024. Abdominal CT from October 07, 2024 FINDINGS: Chest: Lymph Nodes and Mediastinum: No lymphadenopathy by CT size criteria. Nomediastinal mass lesions. Cardiovascular: The heart is normal in caliber. Thoracic great vessels arepatent. Lungs and Pleura: Stable subcentimeter left lingular nodules (series 4image 248). Stable subcentimeter intrafissural nodule within the rightlung (series 4 image 230). No pleural effusions or suspiciousthickening. Musculoskeletal and Body Wall: No clearly aggressive bone lesions. Abdomen/Pelvis: Solid Abdominal Organs: Liver demonstrates fatty change and fissuralwidening which could indicate underlying parenchymal disease. There is a2.2 cm low-attenuation lesion at the liver dome (series 12 image 20 ),perhaps slightly smaller in size when compared to the prior study. Furtherlow-attenuation lesion as seen on series 12 image 38 currently measures1.6 cm, previously 2.7 cm. . Other previously noted lesion within [id number]/8 remains difficult to clearly delineate. Unremarkable gallbladder.Stable nodule within the tip of the pancreatic tail (series 5 image 96).Unremarkable adrenal glands. No hydronephrosis. No suspicious renal mass.There is a small right renal cyst. GI Tract/Mesentery/Peritoneum: Prior right colectomy. Large and smallbowel appear normal in caliber. There is a ventral abdominal wall herniacontaining small bowel. Mild wall thickening of the segment of small bowelleading to the ileocolic anastomosis. There are subcentimeter likelyreactive mesenteric lymph nodes. Pelvic Viscera: No discrete pelvic mass. Lymph Nodes/Vasculature: Splenoportal venous system is patent. Abdominalaorta is normal in caliber and patent. Borderline-enlarged portacavallymph nodes are again noted measuring up to 1.2 cm (series 9 image 83). Free Fluid: No ascites Musculoskeletal and Body Wall: No clearly aggressive bone lesions. IMPRESSION: Chest: No evidence of disease progression. Abdomen/Pelvis: Continued slight interval decrease in size of livermetastatic deposits. Consider MRI for next follow-up since backgroundparenchymal liver changes create difficulty in visualization of lesions. CRITICAL RESULT: No. COMMUNICATION: Per this written report. Drafted by Da Trevino MD on 11/19/2024 9:35 AM Final report signed by Da Trevino MD on 11/19/2024 10:42 AM Farhad Castillo MD IMG CT PROCEDURES Final Re sult documented in this encounter Visit Diagnoses Diagnosis Metastatic colon cancer to liver (CMS/HCC) documented in this encounter Administered Medications Inactive Administered Medications - up to 3 most recent administrations Medication Order MAR Action Action Date Dose Rate Site iohexol (OMNIPaque) 350 MG/ML injection 150 mL 150 mL, Intravenous, Once in imaging, 1 dose, Starting on Zabrina 11/19/24 at 0712, Until Zabrina 11/19/24 at 0840, Routine, Imaging Protocol Orders Given 11/19/2024 8:40 AM EDT 150 mL iohexol (OMNIPaque) 9 MG/ML oral contrast 500 mL 500 mL, Oral, Once in imaging, 1 dose, Starting on Zabrina 11/19/24 at 0712, Until Zabrina 11/19/24 at 0756, Routine, Imaging Protocol Orders Given 11/19/2024 7:56 AM EDT 500 mL documented in this encounter Additional Health Concerns Assessment Noted Time A fall risk assessment has been complete d for the patient 07/23/2024 8:54 AM EDT A Body Mass Index follow-up plan has been documented for the patient 11/24/2024 5:29 PM EDT documented as of this encounter Care Teams Firefighter Relationship Specialty Start Date End Date Tayo Jones MD [address] [place] [address] PCP - General 07/14/24 documented as of this encounter
--- OUTSIDE RECORDS SUMMARY | 2024-11-19 11:15 | XMS_ITS | Encounter Summary ---
Author Organization [facility] Address [address] [id number] Care Team Providers Care Electronic Warfare Technician Name Role Phone Tayo Jones MD Primary Care Provider [phone] Reason for Referral * Consultation (Routine) - Authorized Specialty Diagnoses / Procedures Referred By Samia pagan Referred To Contact General Surgery Diagnoses Metastatic colon cancer to liver (CMS/HCC) Farhad Castillo MD [address] [phone] Phone: tel: fax: Heidi March MD [address] [place] [address] Phone: tel: fax: Referral ID Status Reason Start Date Expiration Date Visits Requested Visits Authorized [id number] Authorized Specialty Services Required 11/19/2024 05/21/2026 1 1 Scheduling Instructions Hernia repair possible combo surgery w/ Dr. Castillo * Imaging (Routine) - Closed Specialty Diagnoses / Procedures Referred By Samia pagan Referred To Contact Cardiology Diagnoses High risk surgery, pre-operative cardiovascular examination Shortness of breath on exertion Procedures NM Myocardial Perfusion Stress Test Farhad Castillo MD [address] [phone] Phone: tel: fax: Referral ID Status Reason Start Date Expiration Date Visits Re quested Visits Authorized [id number] Closed 11/19/2024 05/21/2026 1 1 * Imaging (Routine) - Closed Specialty Diagnoses / Procedures Referred By Samia pagan Referred To Contact Radiology Diagnoses Metastatic colon cancer to liver (CMS/HCC) Procedures MR Abdomen w and wo IV Contrast Farhad Castillo MD [address] [phone] Phone: tel: fax: Referral ID Status Reason Start Date Expiration Date Visits Re quested Visits Authorized [id number] Closed 11/19/2024 05/21/2026 1 1 Reason for Visit * Reason Comments Routine Follow-up Encounter Details Date Type Department Care Team (Latest Contact Info) Description 11/19/2024 11:15 AM EDT Office Visit [facility] Multidisciplinary Oncology Clinic [address] [place] [phone] Farhad Castillo MD [address] [phone] Metastatic colon cancer to liver (CMS/HCC) (Primary [...] any time in the past [facility] were you homeless or living in a usp (including now)? No 10/09/2024 Utilities Answer Date Recorded In the past 12 months has th e [employer], gas, oil, or water company threatened to [...] RIGHT COLON AND TERMINAL ILEUM, RIGHT HEMICOLECTOMY ([id number]; 11/09/2022): - INVASIVE MODERATELY DIFFERENTIATED ADENOCARCINOMA OF [...] Total DLP (Dose-Length Product): 3353.28 mGy.cm (accession [id number]), 3353.28 mGy.cm (accession [id number]) Please note: The reported value represents the [...] Description 12/24/2024 9:15 AM EDT Office Visit [facility] Multidisciplinary Oncology Clinic [address] [place] [phone] Farhad Castillo MD [address] [phone] Scheduled Referrals Name Type Priority Associated Diagnoses [...] using the following sequences: coronal single shot [id number] fast spin echo, axial T2 weighted sequences [...] 12/17/2024 4:48 PM us Farhad Castillo MD IM MRI PROCEDURES Final R esult * NM [...] performed under direct supervision of the reading manager auto. Study Impression There is no significant patient [...] previous examination/report available for comparison or correlation. us Farhad Castillo MD CV STRESS PROCEDURES Final Result * Prealbumin, Plasma (11/19/2024 11:26 AM EDT) Prealbumin, Plasma 25.7 20.0 - 41.0 mg/dL 11/19/2024 12:19 PM EDT [facility] Blood Venous blood specimen / Unknown Venipuncture / Unknown 11/19/2024 11:26 AM EDT 11/19/2024 11:47 AM EDT us Farhad Castillo MD LAB BLOOD ORDERABLES Final Result [facility] [address] [place] [address] * (ABNORMAL) Hemoglobin A1c (11/19/2024 11:26 AM EDT) Hemoglobin A1c 7.3(H) <5.7 % 11/19/2024 12:49 PM EDT [facility] Blood Venous blood specimen / Unknown Venipuncture / Unknown 11/19/2024 11:26 AM EDT 11/19/2024 11:47 AM EDT Narrative [facility] - 11/19/2024 12:49 PM EDT HA1C Interpretive Data: Diagnosis of Diabetes: Diabetic > or = 6.5% Pre-diabetic 5.7 to 6.4% Non-diabetic < or = 5.6% Glycemic Targets for Type I and Type II Diabetics: Non- Adults <7.0% Adults <6.0% Children and Adolescents <7.5% Source: [place] [employer]. Standards of medical care in diabetes,2017. Diabetes Care.2017:40 (suppl 1):S1-S135. Farhad Castillo MD LAB BLOOD ORDERABLES Final Result Performing Organization Address [facility] de Phone Number [facility] [address] [place] [address] * (ABNORMAL) CEA, Serum (11/19/2024 11:26 AM EDT) Pathologist [facility] CEA, Serum 7.7(H) <4.0 ng/mL 11/19/2024 12:31 PM EDT [facility] Blood Venous blood specimen / Unknown Venipuncture / Unknown 11/19/2024 11:26 AM EDT 11/19/2024 11:47 AM EDT Narrative [facility] - 11/19/2024 12:31 PM EDT Normal range for smokers: < 5.5 ng/ml Normal range for non-smokers: <=4.0 ng/ml Performed by [employer] electrochemiluminescent immunoassay. Results obtained with different test methods or kits cannot be used interchangeably. Farhad Castillo MD LAB BLOOD ORDERABLES Final Result Performing Organization Address [facility] de Phone Number [facility] [address] [place] [address] * (ABNORMAL) CBC W/O Differential (11/19/2024 11:26 AM EDT) [facility] WBC Count 8.37 3.70 - 10.30 10*3/uL LAB HEMATOLOGY METHOD 11/19/2024 11:55 AM EDT [facility] RBC Count 3.98(L) 4.60 - 6.10 10*6/uL LAB HEMATOLOGY METHOD 11/19/2024 11:55 AM EDT [facility] HGB 12.1(L) 13.7 - 17.5 g/dL LAB HEMATOLOGY METHOD 11/19/2024 11:55 AM EDT [facility] HCT 36.4(L) 40.0 - 51.0 % LAB HEMATOLOGY METHOD 11/19/2024 11:55 AM EDT [facility] Platelet Count 341 155 - 369 10*3/uL LAB HEMATOLOGY METHOD 11/19/2024 11:55 AM EDT [facility] MCV 92 79 - 98 fL LAB HEMATOLOGY METHOD 11/19/2024 11:55 AM EDT [facility] MCH 30.4 26.0 - 32.0 pg LAB HEMATOLOGY METHOD 11/19/2024 11:55 AM EDT [facility] MCHC 33.2 30.7 - 35.5 g/dL LAB HEMATOLOGY METHOD 11/19/2024 11:55 AM EDT [facility] RDW 13.9 11.5 - 14.5 % LAB HEMATOLOGY METHOD 11/19/2024 11:55 AM EDT [facility] MPV 8.7(L) 8.8 - 12.5 fL LAB HEMATOLOGY METHOD 11/19/2024 11:55 AM EDT [facility] nRBC 0.0 <=0.0 per 100 WBCs LAB HEMATOLOGY METHOD 11/19/2024 11:55 AM EDT [facility] Blood Venous blood specimen / Unknown Venipuncture / Unknown 11/19/2024 11:26 AM EDT 11/19/2024 11:47 AM EDT us Farhad Castillo MD LAB BLOOD ORDERABLES Final Result [facility] [address] [place] [address] * (ABNORMAL) Comprehensive Metabolic Panel, Plasma (11/19/2024 11:26 AM EDT) Pathologist [facility] Glucose, Plasma 174(H) 74 - 99 mg/dL 11/19/2024 12:19 PM EDT [facility] BUN, Plasma 20 8 - 23 mg/dL 11/19/2024 12:19 PM EDT [facility] Creatinine, Plasma 1.06 0.70 - 1.20 mg/dL 11/19/2024 12:19 PM EDT [facility] BUN/Creatinine Ratio 19 11/19/2024 12:19 PM EDT [facility] Sodium, Plasma 132(L) 136 - 145 mmol/L 11/19/2024 12:19 PM EDT [facility] Potassium, Plasma 4.7 3.6 - 4.9 mmol/L 11/19/2024 12:19 PM EDT [facility] Chloride, Plasma 101 97 - 107 mmol/L 11/19/2024 12:19 PM EDT [facility] CO2, Plasma 18(L) 22 - 29 mmol/L 11/19/2024 12:19 PM EDT [facility] Anion Gap 13 6 - 16 mmol/L 11/19/2024 12:19 PM EDT [facility] Total Calcium, Plasma 9.3 8.9 - 10.2 mg/dL 11/19/2024 12:19 PM EDT [facility] Total Protein 6.9 6.3 - 7.9 g/dL 11/19/2024 12:19 PM EDT [facility] Albumin, Plasma 3.9 3.5 - 5.2 g/dL 11/19/2024 12:19 PM EDT [facility] AST, Plasma 30 10 - 50 U/L 11/19/2024 12:19 PM EDT [facility] ALT, Plasma 20 10 - 50 U/L 11/19/2024 12:19 PM EDT [facility] Alkaline Phosphatase, Plasma 90 40 - 115 U/L 11/19/2024 12:19 PM EDT [facility] Total Bilirubin, Plasma 0.4 0.2 - 1.1 mg/dL 11/19/2024 12:19 PM EDT [facility] eGFRcr 80.3 mL/min/1.7 3m*2 11/19/2024 12:19 PM EDT [facility] Comment:Reported eGFRcr in m L/min/1.73m2 is based the CKD-EPI 2020 equation that does not use a race coefficient. Blood Venous blood specimen / Unknown Venipuncture / Unknown 11/19/2024 11:26 AM EDT 11/19/2024 11:47 AM EDT us Farhad Castillo MD LAB BLOOD ORDERABLES Final Result [facility] [address] [place] [address] documented in this encounter Visit Diagnoses Diagnosis [...] documented as of this encounter Care Teams Electronic Warfare Technician Relationship Specialty Start Date End Date Tayo Jones MD [address] [place] [address] PCP - General 07/14/24 documented as of this encounter
--- OUTSIDE RECORDS SUMMARY | 2024-12-17 08:00 | XMS_ITS | Encounter Summary ---
Author Organization [facility] Address [address] [place] [address] Care Team Providers Care Branch Operations Specialist Name Role Phone Tayo Jones MD Primary Care Provider [phone] Reason for Referral * Imaging (Routine) - Closed Specialty Diagnoses / Procedures Referred By Samia pagan Referred To Contact Cardiology Diagnoses High risk surgery, pre-operative cardiovascular examination Shortness of breath on exertion Procedures NM Myocardial Perfusion Stress Test Farhad Castillo MD [address] [address] Phone: tel: fax: Referral ID Status Reason Start Date Expiration Date Visits Re quested Visits Authorized [id number] Closed 11/19/2024 05/21/2026 1 1 Reason for Visit * Imaging (Routine) - Closed Specialty Diagnoses / Procedures Referred By Samia pagan Referred To Contact Cardiology Diagnoses High risk surgery, pre-operative cardiovascular examination Shortness of breath on exertion Procedures NM Myocardial Perfusion Stress Test Farhad Castillo MD [address] [address] Phone: tel: fax: Referral ID Status Reason Start Date Expiration Date Visits Re quested Visits Authorized [id number] Closed 11/19/2024 05/21/2026 1 1 Encounter Details Date Type Department Care Team (Latest Contact Info) Description 12/17/2024 8:00 AM EDT - 12/17/2024 8:06 AM EDT Hospital Encounter Cardiac Imaging [address] [place] [address] High risk surgery, pre-operative cardiovascular examination; Shortness [...] any time in the past 12 m [facility], were you homeless or living in a mcc (including now)? No 10/09/2024 Utilities Answer Date Recorded In the past 12 months has e [employer], gas, oil, or water company threatened to [...] Description 12/24/2024 9:15 AM EDT Office Visit [facility] Multidisciplinary Oncology Clinic [address] [place] [address] Farhad Castillo MD [address] [place] [address] documented as of this encounter Procedures Procedure [...] performed under direct supervision of the reading ear nose throat surgeon. Study Impression There is no significant patient [...] documented as of this encounter Care Teams Branch Operations Specialist Relationship Specialty Start Date End Date Tayo Jones MD [address] [place] [address] PCP - General 07/14/24 documented as of this encounter
--- OUTSIDE RECORDS SUMMARY | 2024-12-17 08:07 | XMS_ITS | Encounter Summary ---
Author Organization [facility] Address [address] [place] [address] Care Team Providers Care Data Communications Engineer Name Role Phone Tayo Jones MD Primary Care Provider [phone] Reason for Visit * Imaging (Routine) - Closed Specialty Diagnoses / Procedures Referred By Samia pagan Referred To Contact Cardiology Diagnoses High risk surgery, pre-operative cardiovascular examination Shortness of breath on exertion Procedures NM Myocardial Perfusion Stress Test Farhad Castillo MD [address] [place] [phone] Phone: tel: fax: Referral ID Status Reason Start Date Expiration Date Visits Re quested Visits Authorized [id number] Closed 11/19/2024 05/21/2026 1 1 Encounter Details Date Type Department Care Team (Latest Contact Info) Description 12/17/2024 8:07 AM EDT - 12/17/2024 11:26 AM EDT Hospital Encounter Cardiac Imaging [address] [place] [address] Discharge Disposition: Home or Self Care Social [...] were you homeless or living in a half-way (including now)? No 10/09/2024 Utilities Answer Date Recorded In the past 12 months has th e [employer], gas, oil, or water company threatened to [...] Description 12/24/2024 9:15 AM EDT Office Visit [facility] Multidisciplinary Oncology Clinic [address] [place] [address] Farhad Castillo MD [address] [address] documented as of this encounter Procedures Procedure [...] documented as of this encounter Care Teams Data Communications Engineer Relationship Specialty Start Date End Date Tayo Jones MD [address] [place] [address] PCP - General 07/14/24 documented as of this encounter
--- OUTSIDE RECORDS SUMMARY | 2024-12-17 11:27 | XMS_ITS | Encounter Summary ---
Author Organization [facility] Address [address] [place] [id number] Care Team Providers Care Curriculum Counselor Name Role Phone Tayo Jones MD Primary Care Provider [phone] Reason for Referral * Imaging (Routine) - Closed Specialty Diagnoses / Procedures Referred By Samia pagan Referred To Contact Radiology Diagnoses Metastatic colon cancer to liver (CMS/HCC) Procedures MR Abdomen w and wo IV Contrast Farhad Castillo MD [address] [address] Phone: tel: fax: Referral ID Status Reason Start Date Expiration Date Visits Re quested Visits Authorized [id number] Closed 11/19/2024 05/21/2026 1 1 Reason for Visit * Imaging (Routine) - Closed Specialty Diagnoses / Procedures Referred By Samia pagan Referred To Contact Radiology Diagnoses Metastatic colon cancer to liver (CMS/HCC) Procedures MR Abdomen w and wo IV Contrast Farhad Castillo MD [address] [address] Phone: tel: fax: Referral ID Status Reason Start Date Expiration Date Visits Re quested Visits Authorized [id number] Closed 11/19/2024 05/21/2026 1 1 Encounter Details Date Type Department Care Team (Latest Contact Info) Description 12/17/2024 11:27 AM EDT - 12/17/2024 11:59 PM EDT Hospital Encounter [facility] Radiology [address] [place] [address] Metastatic colon cancer to liver (CMS/HCC) Discharge [...] any time in the past 12 m [facility], were you homeless or living in a group home (including now)? No 10/09/2024 Utilities Answer Date Recorded In the past 12 months has e [employer], [employer], oil, or water [email or web address] threatened to shut off services in your [...] Description 12/24/2024 9:15 AM EDT Office Visit [facility] Multidisciplinary Oncology Clinic [address] [place] [address] Farhad Castillo MD [address] [address] documented as of this encounter Procedures Procedure [...] using the following sequences: coronal single shot [id number] fast spin echo, axial T2 weighted sequences [...] documented as of this encounter Care Teams Curriculum Counselor Relationship Specialty Start Date End Date Tayo Jones MD [address] [place] [address] PCP - General 07/14/24 documented as of this encounter
--- OUTSIDE RECORDS SUMMARY | 2024-12-22 10:13 | XMS_ITS | Clinical Summary ---
Author Organization [facility] Address [address] [place] [address] Care Team Providers Care Licensed Practical Nurse Clinic Nurse Name Role Phone Jeremy Gil MD Unavailable Andres Alcantara DPM Unavailable Garnt Fletcher MD Unavailable Niko Cueva MD Unavailable None, None Primary Care Provider UnavailGm Vigil DPM Unavailable Reina Byrd NP Unavailable Unavailable Allergies No known active allergies Medications Insulin Glargine (Lantus) 100 unit/mL (3 mL) Solostar INPNIndications :Type 2 diabetes mellitus with hyperglycemia, with long-term current use of insulin ([facility]) 16 Units by Subcutaneous route every 24 [...] PCV) 014 Zoster-RZV(Shingrix) (1 of 2) 2014 Depression Screening 04/15/2024 COVID-19 Vaccine (1 - 2023- season) 2024 Influenza Vaccination (#1) 2024 RSV Vaccines (1 - 1-dose 75+ series) 2039 Insurance MEDICAID [place] Advance Directives For more information, please contact: [phone] * Full Code (Latest Code Status on File) Date Activated Date Inactivated Comments 08/19/2020 3:05 AM No automated ch est compression devices for VAD Patients Care Teams Licensed Practical Nurse Clinic Nurse Relationship Specialty Start Date End Date None, None [address] [place] [address] PCP - General 10/26/20 Jeremy Gil MD [address] [facility] Room [address] [place] [address] Internal Medicine 08/19/20 Andres Alcantara DPM [address] [facility]. [address] [place] [address] Resident Podiatry 08/22/20 Grant Fletcher MD [address] [place] [address]. [address] [place] [address] Infectious Diseases 09/08/20 Niko Cueva MD [facility] [address] [place] [address] Vascular Surgery 09/16/20 Gm Flor DPM [address] [place] [address] [place] [address] Podiatry 11/01/20 Reina Byrd NP [address] [place] [address] [place] [address] Nurse Practitioner Vascular Surgery 11/30/20
--- OUTSIDE RECORDS SUMMARY | 2024-12-22 10:13 | XMS_ITS | Encounter Summary ---
Author Organization [facility] Address [address] [place] [address] Care Team Providers Care Acrobatic Rigger Name Role Phone Tayo Jones MD Primary Care Provider [phone] Encounter Details Date Type Department Care Team (Late Contact Info) Description 05/31/2023 Orders Only External Location [address] [place] [address] Provider, External Social History Tobacco Use Types [...] Description 12/24/2024 9:15 AM EDT Office Visit [facility] Multidisciplinary Oncology Clinic [address] [place] [address] Farhad Castillo MD [address] [address] documented as of this encounter Procedures Procedure Name Priority Date/Time Associated Diagnosis Comments CT MSK OUTSIDE IMAGES 05/31/2023 9:19 AM EST documented in this encounter Results * CT MSK OUTSIDE IMAGES (05/31/2023 9:19 AM EST) Anatomical Region Laterality Modality Computed Tomogra phy 05/31/2023 9:19 AM EST External Provider IMG CT PROCEDURES Final Result documented in this encounter Visit Diagnoses Not on filedocumented in this encounter Care Teams Acrobatic Rigger Relationship Specialty Start Date End Date Tayo Jones MD [address] [place] [id number] PCP - General 07/14/24 documented as of this encounter
--- OUTSIDE RECORDS SUMMARY | 2024-12-22 10:13 | XMS_ITS | Encounter Summary ---
Author Organization [facility] Address [address] [place] [address] Care Team Providers Care Horse Groomer Name Role Phone Tayo Jones MD Primary Care Provider [phone] Encounter Details Date Type Department Care Team (Late Contact Info) Description 01/24/2023 Orders Only External Location [address] [place] [address] Sue Pope MD [address] [place], [place] [id number] Social History Tobacco Use Types Packs/Day Years [...] Department Care Team (Late Contact Info) Description 12/24/2024 9:15 AM EDT Office Visit [facility] Multidisciplinary Oncology Clinic [address] [place] [address] Farhad Castillo MD [address] [address] documented as of this encounter Procedures Procedure [...] on filedocumented in this encounter Care Teams Horse Groomer Relationship Specialty Start Date End Date Tayo Jones MD [address] [place] [address] PCP - General 07/14/24 documented as of this encounter
--- OUTSIDE RECORDS SUMMARY | 2024-12-22 10:13 | XMS_ITS | Encounter Summary ---
Author Organization [facility] Address [address] [place] [address] Care Team Providers Care Builder'S Labourer Name Role Phone Tayo Jones MD Primary Care Provider [phone] Encounter Details Date Type Department Care Team (Late Contact Info) Description 01/15/2023 Orders Only External Location [address] [place] [phone] Provider, External Social History Tobacco Use Types [...] Description 12/24/2024 9:15 AM EDT Office Visit [facility] Multidisciplinary Oncology Clinic [address] [place] [address] Farhad Castillo MD [address] [address] documented as of this encounter Procedures Procedure Name Priority Date/Time Associated Diagnosis Comments CT THORACIC OUTSIDE IMAGES 01/15/2023 9:37 AM EDT documented in this encounter Results * CT THORACIC OUTSIDE IMAGES (01/15/2023 9:37 AM EDT) Anatomical Region Laterality Modality Computed Tomogra phy 01/15/2023 9:37 AM EDT External Provider IMG CT PROCEDURES Final Result documented in this encounter Visit Diagnoses Not on filedocumented in this encounter Care Teams Builder'S Labourer Relationship Specialty Start Date End Date Tayo Jones MD [address] [place] [phone] PCP - General 07/14/24 documented as of this encounter
--- OUTSIDE RECORDS SUMMARY | 2024-12-22 10:13 | XMS_ITS | Encounter Summary ---
Author Organization [facility] Address [address] [place] [address] Care Team Providers Care Crm Marketing Specialist Name Role Phone Tayo Jones MD Primary Care Provider [phone] Encounter Details Date Type Department Care Team (Late Contact Info) Description 05/06/2024 Orders Only External Location [address] [place] [address] Provider, External Social History Tobacco Use Types [...] Office Visit [facility] Multidisciplinary Oncology Clinic [address] [place] [address] Farhad Castillo MD [address] [address] documented as of this encounter Procedures Procedure Name Priority Date/Time Associated Diagnosis Comments CT THORACIC OUTSIDE IMAGES 05/06/2024 10:37 AM EST documented in this encounter Results * CT THORACIC OUTSIDE IMAGES (05/06/2024 10:37 AM EST) Anatomical Region Laterality Modality Computed Tomogra phy 05/06/2024 10:3 7 AM EST External Provider IMG CT PROCEDURES Final Result documented in this encounter Visit Diagnoses Not on filedocumented in this encounter Care Teams Crm Marketing Specialist Relationship Specialty Start Date End Date Tayo Jones MD [address] [place] [phone] PCP - General 07/14/24 documented as of this encounter
--- OUTSIDE RECORDS SUMMARY | 2024-12-22 10:13 | XMS_ITS ---
Author Organization [facility] Address [address] [place] [address] Care Team Providers Care Border Measurer And Cutter Name Role Phone Tayo Jones MD Primary Care Provider [phone] Active Problems Problem Noted Date Diagnosed Date [...]
--- OUTSIDE RECORDS SUMMARY | 2024-12-22 10:13 | XMS_ITS | Encounter Summary ---
Author Organization [facility] Address [address] [place] [address] Care Team Providers Care Lead Quality Control Technician Name Role Phone Tayo Jones MD Primary Care Provider [phone] Encounter Details Date Type Department Care Team [...] in the past 12 m [facility], were you homeless or living in a fpc (including now)? No 10/09/2024 Utilities Answer Date [...] Not at all 11/19/2024 10:49 AM EDT Karishmaritugiuseppe Andrewsayra Foote Feeling down, depressed, or hopeless Not at all 11/19/2024 10:49 AM EDT Anshugiuseppe Andrewsayra kaur T Patient Health Questionnaire-2 Score 0 11/19/2024 10:49 AM EDT Jr Amaro documented as of this encounter Plan of Treatment Upcoming Encounters Date Type Department Care Team (Late st Contact Info) Description 12/24/2024 9:15 AM EDT Office Visit [facility] Multidisciplinary Oncology Clinic [address] [place] [address] Farhad Castillo MD [address] [address] documented as of this encounter Visit Diagnoses Not on filedocumented in this encounter Additional Health Concerns Assessment Noted Time A fall risk assessment has been complete d for the patient 07/23/2024 8:54 AM EDT A Body Mass Index follow-up plan has been documented for the patient 11/24/2024 5:29 PM EDT documented as of this encounter Care Teams Lead Quality Control Technician Relationship Specialty Start Date End Date Tayo Jones MD [address] [place] [address] PCP - General 07/14/24 documented as of this encounter
--- OUTSIDE RECORDS SUMMARY | 2024-12-22 10:13 | XMS_ITS | Encounter Summary ---
Author Organization [facility] Address [address] [place] [address] Care Team Providers Care Signwriter Name Role Phone Tayo Jones MD Primary Care Provider [phone] Encounter Details Date Type Department Care Team (Late Contact Info) Description 02/18/2023 Orders Only External Location [address] [place] [phone] Provider, External Social History Tobacco Use Types [...] Description 12/24/2024 9:15 AM EDT Office Visit [facility] Multidisciplinary Oncology Clinic [address] [place] [phone] Farhad Castillo MD [address] [address] documented as of this encounter Procedures Procedure [...] on filedocumented in this encounter Care Teams Signwriter Relationship Specialty Start Date End Date Tayo Jones MD [address] [place] [phone] PCP - General 07/14/24 documented as of this encounter
--- OUTSIDE RECORDS SUMMARY | 2024-12-22 10:13 | XMS_ITS | Encounter Summary ---
Author Organization [facility] Address [address] [place] [address] Care Team Providers Care Brick Burner Name Role Phone Tayo Jones MD Primary Care Provider [phone] Encounter Details Date Type Department Care Team (Latest Contact Info) Description 12/17/2024 Travel Social History Tobacco Use Types Packs/Day [...] any time in the past 12 m [facility], were you homeless or [...] Description 12/24/2024 9:15 AM EDT Office Visit [facility] Multidisciplinary Oncology Clinic [address] [place] [phone] Farhad Castillo MD [address] [address] documented as of this encounter Visit Diagnoses Not on filedocumented in this encounter Additional Health Concerns Assessment Noted Time A fall risk assessment has been complete d for the patient 07/23/2024 8:54 AM EDT A Body Mass Index follow-up plan has been documented for the patient 11/24/2024 5:29 PM EDT documented as of this encounter Care Teams Brick Burner Relationship Specialty Start Date End Date Tayo Jones MD [address] [place] [address] PCP - General 07/14/24 documented as of this encounter
--- OUTSIDE RECORDS SUMMARY | 2024-12-22 10:13 | XMS_ITS | Encounter Summary ---
Author Organization [facility] Address [address] [place] [address] Care Team Providers Care Ssds Mk 2 Advanced Operator Name Role Phone Tayo Jones MD Primary Care Provider [phone] Encounter Details Date Type Department Care Team (Late Contact Info) Description 07/16/2024 Lab Requisition [facility] [address] [place] [address] Farhad Castillo MD [address] [phone] Other acute appendicitis without perforation or gangrene [...] Description 12/24/2024 9:15 AM EDT Office Visit [facility] [address] [place] [address] Farhad Castillo MD [address] [phone] documented as of this encounter Procedures Procedure Name Priority Date/Time Associated Diagnosis Comments SURGICAL PATHOLOGY CONSULT Routine 07/16/2024 1:13 PM EDT Other acute appendicitis without perforation or gangrene documented in this encounter Results * Surgical Pathology Consult (07/16/2024 1:13 PM EDT) Case Report Sugical Pathology Consult Case: [id number] Authorizing Provider: Farhad Castillo MD Collected: 07/16/2024 1313 Ordering Location: [facility] Lab Received: 07/16/2024 1313 Pathologist: Constance Murphy MD Specimen: Colon, [id number] 07/17/2024 1:08 PM EDT [facility] Final Diagnosis RIGHT COLON AND TERMINAL ILEUM, RIGHT HEMICOLECTOMY ([id number]; 11/09/2022): - 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 - TUMOR BUDDING SCORE: HIGH (10 OR GREATER). - NO TUMOR SEEN IN TWENTY ONE LYMPH NODES (0/21). 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 07/17/2024 1:08 PM EDT [facility] Clinical Information K35.890 - Other acute appendicitis without perforation or gangrene [ICD-10-CM] 07/17/2024 1:08 PM EDT [facility] Gross Description A. [id number] Received along with a corresponding pathology report from [facility] are 29 slides labeled outside case: [id number] collected on 11/09/2022. 07/17/2024 1:08 PM EDT [facility] Note: A resident was involved in the service. I attest I examined the relevant preparations for the specimens and confirmed the diagnosis or interpretation. 07/17/2024 1:08 PM EDT [facility] Tissue Colon structure / Unknown 07/16/2024 1:13 PM EDT 07/16/2024 1:13 PM EDT us Farhad Castillo MD LAB PATHOLOGY ORDERABLES F inal Result [facility] [address] [place] [address] documented in this encounter Visit Diagnoses Diagnosis Other acute appendicitis without perforation or gangrene documented in this encounter Care Teams Ssds Mk 2 Advanced Operator Relationship Specialty Start Date End Date Tayo Jones MD [address] [phone] PCP - General 07/14/24 documented as of this encounter
--- OUTSIDE RECORDS SUMMARY | 2024-12-22 10:13 | XMS_ITS | Encounter Summary ---
Author Organization [facility] Address [address] [place] [address] Care Team Providers Care Aircraft Parts Assembler Name Role Phone Tayo Jones MD Primary Care Provider [phone] Encounter Details Date Type Department Care Team (Late Contact Info) Description 01/15/2023 Orders Only External Location [address] [place] [address] Sue Pope MD [address] [place], [place] [phone] Social History Tobacco Use Types Packs/Day Years [...] Description 12/24/2024 9:15 AM EDT Office Visit [facility] Multidisciplinary Oncology Clinic [address] [place] [address] Farhad Castillo MD [address] [phone] documented as of this encounter Procedures Procedure Name Priority Date/Time Associated Diagnosis Comments CT OUTSIDE IMAGES 01/15/2023 9:37 AM EDT documented in this encounter Results * CT OUTSIDE IMAGES (01/15/2023 9:37 AM EDT) Anatomical Region Laterality Modality Computed Tomogra phy 01/15/2023 9:37 AM EDT uSe Pope MD IMG CT PROCEDURES Final Result documented in this encounter Visit Diagnoses Not on filedocumented in this encounter Care Teams Aircraft Parts Assembler Relationship Specialty Start Date End Date Tayo Jones MD [address] [place] [address] PCP - General 07/14/24 documented as of this encounter
--- OUTSIDE RECORDS SUMMARY | 2024-12-22 10:13 | XMS_ITS | Encounter Summary ---
Author Organization [facility] Address [address] [place] [address] Care Team Providers Care Stove Mounter Name Role Phone Tayo Jones MD Primary Care Provider [phone] Encounter Details Date Type Department Care Team (Late Contact Info) Description 06/15/2024 Orders Only External Location [address] [place] [phone] Provider, External Social History Tobacco Use Types [...] Description 12/24/2024 9:15 AM EDT Office Visit [facility] Multidisciplinary Oncology Clinic [address] [place] [phone] Farhad Castillo MD [address] [phone] documented as of this encounter Procedures Procedure [...] on filedocumented in this encounter Care Teams Stove Mounter Relationship Specialty Start Date End Date Tayo Jones MD [address] [place] [address] PCP - General 07/14/24 documented as of this encounter
--- OUTSIDE RECORDS SUMMARY | 2024-12-22 10:13 | XMS_ITS | Encounter Summary ---
Author Organization [facility] Address [address] [place] [address] Care Team Providers Care Brick Setter Operator Name Role Phone Jeremy Gil MD Unavailable Andres Alcantara DPM Unavailable Grant Fletcher MD Unavailable Niko Cueva MD Unavailable None, None Primary Care Provider UnavailGm Vigil DPM Unavailable Reina Byrd NP Unavailable Unavailable Encounter Details Date Type Department Care Team (Late st Contact Info) Description 09/08/[address] [facility] Physicians - Infectious Diseases, [facility] [address] [place] [address] [phone] Grant Fletcher MD [address] [place] [address] [phone] Social History Tobacco Use Types Packs/Day Years [...] ALT 5 U/L Plasma Result [facility] Grant Fletcher MD CHEMISTRY ORDERABLES Final Re sult * ALKALINE PHOSPHATASE (09/07/2020) Alkaline Phosphatase 98 U/L Plasma Result [facility] Grant Fletcher MD CHEMISTRY ORDERABLES Final Re sult * ALBUMIN (09/07/2020) Albumin 2.6 Plasma Result [facility] Grant Fletcher MD CHEMISTRY ORDERABLES Final Re [...] filedocumented in this encounter Care Teams Brick Setter Operator Relationship Specialty Start Date End Date None, None [address] [place] [address] PCP - General 10/26/20 Jeremy Gil MD [address] [place] [address] [address] [place] [address] Internal Medicine 08/19/20 Andres Alcantara DPM [address] [facility]. [address] [place] [address] Resident Podiatry 08/22/20 Grnat Fletcher MD [address] [facility] [address] [place] [address] Infectious Diseases 09/08/20 Niko Cueva MD [address] [facility] [address] [place] [address] Vascular Surgery 09/16/20 Gm Flor DPM [address] [facility] [place], [place] [phone] Podiatry 11/01/20 Reina Byrd NP [address] [facility] [place] [address] Nurse Practitioner Vascular Surgery 11/30/20 documented as of this encounter
--- OUTSIDE RECORDS SUMMARY | 2024-12-22 10:13 | XMS_ITS | Encounter Summary ---
Author Organization [facility] Address [address] [place] [address] Care Team Providers Care Ordnance Artificer Name Role Phone Tayo Jones MD Primary Care Provider [phone] Encounter Details Date Type Department Care Team (Late Contact Info) Description 05/06/2024 Orders Only External Location [address] [place] [phone] Provider, External Social History Tobacco Use Types [...] Description 12/24/2024 9:15 AM EDT Office Visit [facility] Multidisciplinary Oncology Clinic [address] [place] [phone] Farhad Castillo MD [address] [phone] documented as of this encounter Procedures Procedure [...] on filedocumented in this encounter Care Teams Ordnance Artificer Relationship Specialty Start Date End Date Tayo Jones MD [address] [phone] PCP - General 07/14/24 documented as of this encounter
--- OUTSIDE RECORDS SUMMARY | 2024-12-22 10:13 | XMS_ITS | Clinical Summary ---
Author Organization [facility] Address [address] [place] [address] Care Team Providers Care Signal Operator Technical Name Role Phone Tayo [place] MD Primary Care Provider [phone] Allergies No known active allergies Medications carvedilol [...] Encounters Date Type Department Care Team Description 12/17/2024 11:27 AM EDT - 12/17/2024 11:59 PM EDT Hospital Encounter [facility] Radiology [address], [address] [place] [address] Metastatic colon cancer to liver (CMS/HCC) Discharge Disposition: Home or Self Care 12/17/2024 8:07 AM EDT - 12/17/2024 11:26 AM EDT Hospital Encounter Cardiac Imaging [address] [place] [address] Discharge Disposition: Home or Self Care 12/17/2024 8:00 AM EDT - 12/17/2024 8:06 AM EDT Hospital Encounter Cardiac Imaging [address] [place] [address] High risk surgery, pre-operative cardiovascular examination; Shortness of breath on exertion Discharge Disposition: Home or Self Care 12/17/2024 Travel 11/19/2024 11:15 AM EDT Office Visit [facility] Multidisciplinary Oncology Clinic [address] [place] [address] Farhad Castillo MD Metastatic colon cancer to liver (CMS/HCC) (Primary Dx); High risk surgery, pre-operative cardiovascular examination; Shortness of breath on exertion 11/19/2024 7:09 AM EDT - 11/19/2024 11:59 PM EDT Hospital Encounter [facility] CT [address] [place] [address] Metastatic colon cancer to liver (CMS/HCC) Discharge Disposition: Home or Self Care 11/19/2024 Travel 10/09/2024 Travel 10/08/2024 12:10 AM EDT - 10/09/2024 3:38 PM EDT Hospital Encounter [facility] Emergency [facility] [address] [place] [phone] Mickie Jefferson MD Hourigan, Jon S, MD Small bowel obstruction (CMS/HCC) (Primary Dx); Abdominal pain, generalized Discharge Disposition: Shelter Facility 10/08/2024 Travel 10/07/2024 Orders Only External Location [address] [place] [address] Provider, External from Last 3 [...] EDT Inhaled Oxygen Concentration - - Weight 113 kg (249 lb 5.4 oz) 12/17/2024 11:32 A M EDT Height 180.3 cm (5' 11 ) 11/19/2024 10:43 AM EDT Body Mass Index 34.78 11/19/2024 10:43 AM EDT Plan of Treatment Upcoming Encounters Date Type Department Care Team (Late st Contact Info) Description 12/24/2024 9:15 AM EDT Office Visit [facility] Multidisciplinary Oncology Clinic [address] [place] [address] Farhad Castillo MD [address] [place] [phone] Health Maintenance Due Date Last Done Comments [facility]-/Child/Adol SDOH Screenings 1964 Diabetes: Dental Exam 1974 [facility]-DTaP,Tdap,and Td Vaccines (1 - Tdap) 1983 [facility]-Hepatitis A Vaccines (1 of 2 - Risk 2-dose series) 1983 [facility]-Zoster Vaccines (1 of 2) 1983 [facility]-RSV Vaccine: 60+ Years or (1 - Risk 60-74 years 1-dose series) 2024 [id number] Vaccine ( season) 2024 01/15/2022, 03/28/2021, 07/27/2020, Additional history [...] this topic Medical Devices Implanted Type Area Game Engineer Device Identifier Shelf Expiration Date Model / Serial / Lot Port Clearvue Power 8fr - S. - [id number] Implanted:Qty : 1 on 07/31/2024 by Farhad Castillo MD at [facility] Other Medication Pump Left: Chest [employer]-[id number] 07/13/2025 [id number] / . / [id number] Procedures Procedure Name Priority Date/Time Associated Diagnosis Comments MR ABDOMEN W AND WO IV CONTRAST Routine 12/17/2024 12:29 PM EDT Metastatic colon cancer to liver (CMS/HCC) NM MYOCARDIAL SPECT REGADENOSON STRESS (MULTI STUDY) Routine 12/17/2024 9:45 AM EDT High risk surgery, pre-operative cardiovascular examination Shortness of breath on exertion PREALBUMIN, PLASMA Routine 11/19/2024 11 :26 AM [...] EDT from Last 3 Months Results * MR Abdomen w and wo [...] using the following sequences: coronal single shot [id number] fast spin echo, axial T2 weighted sequences [...] performed under direct supervision of the reading director regulatory affairs. Study Impression There is no significant patient [...] MD CV STRESS PROCEDURES Final Result * (ABNORMAL) CBC W/O Differential (11/19/2024 11:26 AM EDT) Only the most recent of3 resultswithin the time period is included. WBC Count 8.37 3.70 - 10.30 10*3/uL LAB HEMATOLOGY METHOD 11/19/2024 11:55 AM EDT [facility] RBC Count 3.98(L) 4.60 - 6.10 10*6/uL LAB HEMATOLOGY METHOD 11/19/2024 11:55 AM EDT [facility] HGB 12.1(L) 13.7 - 17.5 g/dL LAB HEMATOLOGY METHOD 11/19/2024 11:55 AM EDT [facility] HCT 36.4(L) 40.0 - 51.0 % LAB HEMATOLOGY METHOD 11/19/2024 11:55 AM EDT [facility] Platelet Count 341 155 - 369 10*3/uL LAB HEMATOLOGY METHOD 11/19/2024 11:55 AM EDT [facility] MCV 92 79 - 98 fL LAB HEMATOLOGY METHOD 11/19/2024 11:55 AM EDT [facility] MCH 30.4 26.0 - 32.0 pg LAB HEMATOLOGY METHOD 11/19/2024 11:55 AM EDT [facility] MCHC 33.2 30.7 - 35.5 g/dL LAB HEMATOLOGY METHOD 11/19/2024 11:55 AM EDT [facility] RDW 13.9 11.5 - 14.5 % LAB HEMATOLOGY METHOD 11/19/2024 11:55 AM EDT [facility] MPV 8.7(L) 8.8 - 12.5 fL LAB HEMATOLOGY METHOD 11/19/2024 11:55 AM EDT [facility] nRBC 0.0 <=0.0 per 100 WBCs LAB HEMATOLOGY METHOD 11/19/2024 11:55 AM EDT [facility] Blood Venous blood specimen / Unknown Venipuncture / Unknown 11/19/2024 11:26 AM EDT 11/19/2024 11:47 AM EDT Farhad Castillo MD LAB BLOOD ORDERABLES Final Result [facility] [address] [place] [address] * Prealbumin, Plasma (11/19/2024 11:26 AM EDT) Prealbumin, Plasma 25.7 20.0 - 41.0 mg/dL 11/19/2024 12:19 PM EDT [facility] Blood Venous blood specimen / Unknown Venipuncture / Unknown 11/19/2024 11:26 AM EDT 11/19/2024 11:47 AM EDT Farhad Castillo MD LAB BLOOD ORDERABLES Final Result [facility] [address] [place] [address] * (ABNORMAL) Hemoglobin A1c (11/19/2024 11:26 AM EDT) Only the most recent of2 resultswithin the time period is included. Hemoglobin A1c 7.3(H) <5.7 % 11/19/2024 12:49 PM EDT [facility] Blood Venous blood specimen / Unknown Venipuncture / Unknown 11/19/2024 11:26 AM EDT 11/19/2024 11:47 AM EDT Narrative [facility] - 11/19/2024 12:49 PM EDT HA1C Interpretive Data: Diagnosis of Diabetes: Diabetic > or = 6.5% Pre-diabetic 5.7 to 6.4% Non-diabetic < or = 5.6% Glycemic Targets for Type I and Type II Diabetics: Non- Adults <7.0% Adults <6.0% Children and Adolescents <7.5% Source: [place] [employer]. Standards of medical care in diabetes,2017. Diabetes Care.2017:40 (suppl 1):S1-S135. Farhad Castillo MD LAB BLOOD ORDERABLES Final Result Performing Organization Address City/[facility]/ZIP Co de Phone Number [facility] [address] [place] [address] * (ABNORMAL) CEA, Serum (11/19/2024 11:26 AM EDT) CEA, Serum 7.7(H) <4.0 ng/mL 11/19/2024 12:31 PM EDT [facility] Blood Venous blood specimen / Unknown Venipuncture / Unknown 11/19/2024 11:26 AM EDT 11/19/2024 11:47 AM EDT Narrative [facility] - 11/19/2024 12:31 PM EDT Normal range for smokers: < 5.5 ng/ml Normal range for non-smokers: <=4.0 ng/ml Performed by [employer] electrochemiluminescent immunoassay. Results obtained with different test methods or kits cannot be used interchangeably. Farhad Castillo MD LAB BLOOD ORDERABLES Final Result [facility] [address] [place] [address] * (ABNORMAL) Comprehensive Metabolic Panel, Plasma (11/19/2024 11:26 AM EDT) Only the most recent of2 resultswithin the time period is included. Glucose, Plasma 174(H) 74 - 99 mg/dL 11/19/2024 12:19 PM EDT [facility] BUN, Plasma 20 8 - 23 mg/dL 11/19/2024 12:19 PM EDT [facility] Creatinine, Plasma 1.06 0.70 - 1.20 mg/dL 11/19/2024 12:19 PM EDT [facility] BUN/Creatinine Ratio 11/19/2024 12:19 PM EDT [facility] Sodium, Plasma 132(L) 136 - 145 mmol/L 11/19/2024 12:19 PM EDT [facility] Potassium, Plasma 4.7 3.6 - 4.9 mmol/L 11/19/2024 12:19 PM EDT [facility] Chloride, Plasma 101 97 - 107 mmol/L 11/19/2024 12:19 PM EDT [facility] CO2, Plasma 18(L) 22 - 29 mmol/L 11/19/2024 12:19 PM EDT [facility] Anion Gap 13 6 - 16 mmol/L 11/19/2024 12:19 PM EDT [facility] Total Calcium, Plasma 9.3 8.9 - 10.2 mg/dL 11/19/2024 12:19 PM EDT [facility] Total Protein 6.9 6.3 - 7.9 g/dL 11/19/2024 12:19 PM EDT [facility] Albumin, Plasma 3.9 3.5 - 5.2 g/dL 11/19/2024 12:19 PM EDT [facility] AST, Plasma 30 10 - 50 U/L 11/19/2024 12:19 PM EDT [facility] ALT, Plasma 20 10 - 50 U/L 11/19/2024 12:19 PM EDT [facility] Alkaline Phosphatase, Plasma 90 40 - 115 U/L 11/19/2024 12:19 PM EDT [facility] Total Bilirubin, Plasma 0.4 0.2 - 1.1 mg/dL 11/19/2024 12:19 PM EDT [facility] eGFRcr 80.3 mL/min/1.7 3m*2 11/19/2024 12:19 PM EDT [facility] Comment:Reported eGFRcr in m L/min/1.73m2 is based the CKD-EPI 2020 equation that does not use a race coefficient. Blood Venous blood specimen / Unknown Venipuncture / Unknown 11/19/2024 11:26 AM EDT 11/19/2024 11:47 AM EDT us Farhad Castillo MD LAB BLOOD ORDERABLES Final Result [facility] [address] [place] [address] * CT Abdomen Pelvis w IV Contrast [...] Total DLP (Dose-Length Product): 3353.28 mGy.cm (accession [id number]), 3353.28 mGy.cm (accession [id number]) Please note: The reported value represents the [...] Total DLP (Dose-Length Product): 3353.28 mGy.cm (accession [id number]),3353.28 mGy.cm (accession [id number]) Please note: The reported valuerepresents the total [...] cm. . Other previously noted lesion within fxfyric0D/8 remains difficult to clearly delineate. Unremarkable gallbladder.Stable [...] Total DLP (Dose-Length Product): 3353.28 mGy.cm (accession [id number]), 3353.28 mGy.cm (accession [id number]) Please note: The reported value represents the [...] Total DLP (Dose-Length Product): 3353.28 mGy.cm (accession [id number]),3353.28 mGy.cm (accession [id number]) Please note: The reported valuerepresents the total [...] cm. . Other previously noted lesion within lkxikze3G/8 remains difficult to clearly delineate. Unremarkable gallbladder.Stable [...] Comment 10/09/2024 12:12 PM EDT [facility] Card Game Operator ID Julia Wisdom [id number] 12:12 PM EDT [facility] Device ID [id number] 10/09/2024 12:12 PM EDT [facility]ALTH[facility]ARE LAB Specimen Type POC Capillary 10/09/2024 12:12 PM EDT [facility] Blood Capillary blood specimen / Unknown 10/09/2024 12:08 PM EDT 10/09/2024 12:12 PM EDT Jj Carson MD LAB POINT OF CARE TE ST DOCKED DEVICE UNSOLICITED RESULTS Final Result [facility] [address] [place] [address] * XR Abdomen 1 View (10/09/2024 9:41 [...] - 99 mg/dL 10/09/2024 5:48 AM EDT [facility] BUN, Plasma 36(H) 8 - 23 mg/dL 10/09/2024 5:48 AM EDT [facility] Creatinine, Plasma 1.45(H) 0.70 - 1.20 mg/dL 10/09/2024 5:48 AM EDT [facility] BUN/Creatinine Ratio 25 10/09/2024 5:48 AM EDT [facility] Sodium, Plasma 131(L) 136 - 145 mmol/L 10/09/2024 5:48 AM EDT [facility] Potassium, Plasma 3.4(L) 3.6 - 4.9 mmol/L 10/09/2024 5:48 AM EDT [facility] Comment:Hemolyzed, result ma y be falsely increased. Chloride, Plasma 99 97 - 107 mmol/L 10/09/2024 5:48 AM EDT [facility] CO2, Plasma 17(L) 22 - 29 mmol/L 10/09/2024 5:48 AM EDT [facility] Anion Gap 15 6 - 16 mmol/L 10/09/2024 5:48 AM EDT [facility] Total Calcium, Plasma 8.8(L) 8.9 - 10.2 mg/dL 10/09/2024 5:48 AM EDT [facility] eGFRcr 55.2 mL/min/1.7 3m*2 10/09/2024 5:48 AM EDT [facility] Comment:Reported eGFRcr in m L/min/1.73m2 is based the CKD-EPI 2020 equation that does not use a race coefficient. Blood Venous blood specimen / Unknown Venipuncture / Unknown 10/09/2024 4:28 AM EDT 10/09/2024 5:03 AM EDT us Eva Barnes STEEL FLOOR PAN PLACING SUPERVISOR, DNP LAB BLOOD ORDERABLE S Final Result [facility] [address] [place] [address] * XR Gastrograffin Challenge (10/09/2024 1:17 AM [...] resultswithin the time period is included. Pathologist [facility] Phosphorus, Plasma 3.8 2.5 - 4.5 mg/dL 10/08/2024 6:00 AM EDT [facility] Blood Venous blood specimen / Unknown Venipuncture / Unknown 10/08/2024 4:59 AM EDT 10/08/2024 5:16 AM EDT us Jj Carson MD LAB BLOOD ORDERABLES Final Res ult [facility] [address] [place] [address] * (ABNORMAL) Magnesium, Plasma (10/08/2024 4:59 AM EDT) Only the most recent of2 resultswithin the time period is included. [facility] Magnesium, Plasma 1.7(L) 1.9 - 2.4 mg/dL 10/08/2024 6:00 AM EDT [facility] Blood Venous blood specimen / Unknown Venipuncture / Unknown 10/08/2024 4:59 AM EDT 10/08/2024 5:16 AM EDT us Jj Carson MD LAB BLOOD ORDERABLES Final Res ult [facility] [address] [place] [address] * EKG now - STAT (adult) (10/08/2024 12:55 AM EDT) [facility] EKG DIAGNOSIS CLASS Abnormal MUSE ECG Ventricular Rate 85 BPM MUSE ECG Atrial Rate 85 BPM MUSE ECG VT Interval 168 ms MUSE ECG QRSD Interval 162 ms MUSE ECG QT Interval 442 ms MUSE ECG QTC Interval 525 ms MUSE ECG P [place] 16 degrees MUSE ECG R [place] -32 degrees MUSE ECG T Wave [place] 47 degrees MUSE ECG Diagnosis Normal sinus rhythm MUSE ECG Diagnosis Left axis deviation in the presence of LAFB MUSE ECG Diagnosis Right bundle branch block Bifascicular block MUSE ECG Diagnosis Minimal voltage criteria for LVH, may be normal variant ( R in aVL ) MUSE ECG Diagnosis Abnormal ECG MUSE ECG Diagnosis MUSE ECG Diagnosis Confirmed by Adarsh Pichardo ([id number]) on 10/08/2024 10:50:58 AM MUSE ECG 10/08/2024 12:5 5 AM EDT 10/08/2024 10:50 AM EDT us Mickie Jefferson MD ECG ORDERABLES Final Result MUSE ECG * ED HIV 1/2 Antibody/Antigen Screen w/Reflex to HIV 1/2 Differentiation (10/08/2024 12:55 AM EDT) [facility] HIV 1 & 2 Antibody/Antigen Screen Non Reactive Non Reactive 10/08/2024 2:00 AM EDT [facility] Comment:Screening for HIV 1 & 2 antibodies, and P24 antigen is NONREACTIVE. No confirmatory testing is required. Blood Venous blood specimen / Unknown Venipuncture / Unknown 10/08/2024 12:55 AM EDT 10/08/2024 1:11 AM EDT us Mickie Jefferson MD LAB BLOOD ORDERABLES Final Re sult Performing Organization Address [facility] Co de Phone Number [facility] [address] [place] [address] * Lactic acid, venous (10/08/2024 12:55 AM EDT) [facility] Lactate, Venous, Whole Blood 1.1 0.5 - 2.2 mmol/L LAB HEMATOLOGY METHOD 10/08/2024 1:10 AM EDT [facility] Blood Venous blood specimen / Unknown Venipuncture / Unknown 10/08/2024 12:55 AM EDT 10/08/2024 1:07 AM EDT us Mickie Jefferson MD LAB BLOOD ORDERABLES Final Re sult Performing Organization Address [facility] Co de Phone Number [facility] [address] [place] [address] * Hepatitis C Antibody - ED (10/08/2024 12:55 AM EDT) [facility] Hepatitis C Antibody Negative Negative 10/08/2024 2:16 AM EDT [facility] Blood Venous blood specimen / Unknown Venipuncture / Unknown 10/08/2024 12:55 AM EDT 10/08/2024 1:11 AM EDT us Mickie Jefferson MD LAB BLOOD ORDERABLES Final Re sult Performing Organization Address [facility] Co de Phone Number [facility] [address] [place] [address] * (ABNORMAL) PT-INR (10/08/2024 12:55 AM EDT) [facility] Prothrombin Time 14.7(H) 12.0 - 14.3 sec 10/08/2024 1:27 AM EDT [facility] INR 1.2(H) 0.9 - 1.1 10/08/2024 1:27 AM EDT [facility] Blood Venous blood specimen / Unknown Venipuncture / Unknown 10/08/2024 12:55 AM EDT 10/08/2024 1:05 AM EDT Narrative [facility] - 10/08/2024 1:27 AM EDT OPTIMAL INR RANGES FOR PATIENT ON ORAL ANTICOAGULANT THERAPY Prevention of venous thromboembolism INR 2.0 to 3.0 In patients with heart disease: Atrial fibrillation INR 2.0 to 3.0 Valvular heart disease INR 2.0 to 3.0 Tissue heart valves INR 2.0 to 3.0 Mechanical prosthetic valves INR 2.5 to 3.5 Prevention of recurrent ME INR 2.5 to 3.5 us Mickie Jefferson MD LAB BLOOD ORDERABLES Final Re sult [facility] [address] [place] [address] * (ABNORMAL) CBC w/diff (10/08/2024 12:55 AM EDT) WBC Count 11.32(H) 3.70 - 10.30 10*3/uL LAB HEMATOLOGY METHOD 10/08/2024 1:09 AM EDT [facility] RBC Count 4.20(L) 4.60 - 6.10 10*6/uL LAB HEMATOLOGY METHOD 10/08/2024 1:09 AM EDT [facility] HGB 13.9 13.7 - 17.5 g/dL LAB HEMATOLOGY METHOD 10/08/2024 1:09 AM EDT [facility] HCT 38.0(L) 40.0 - 51.0 % LAB HEMATOLOGY METHOD 10/08/2024 1:09 AM EDT [facility] Platelet Count 293 155 - 369 10*3/uL LAB HEMATOLOGY METHOD 10/08/2024 1:09 AM EDT [facility] MCV 91 79 - 98 fL LAB HEMATOLOGY METHOD 10/08/2024 1:09 AM EDT [facility] MCH 33.1(H) 26.0 - 32.0 pg LAB HEMATOLOGY METHOD 10/08/2024 1:09 AM EDT [facility] MCHC 36.6(H) 30.7 - 35.5 g/dL LAB HEMATOLOGY METHOD 10/08/2024 1:09 AM EDT [facility] RDW 13.5 11.5 - 14.5 % LAB HEMATOLOGY METHOD 10/08/2024 1:09 AM EDT [facility] MPV 10.0 8.8 - 12.5 fL LAB HEMATOLOGY METHOD 10/08/2024 1:09 AM EDT [facility] nRBC 0.0 <=0.0 per 100 WBCs LAB HEMATOLOGY METHOD 10/08/2024 1:09 AM EDT [facility] Differential Type Automated LAB HEMATOLOGY METHOD 10/08/2024 1:09 AM EDT [facility] Neutrophils % 70 % LAB HEMATOLOGY METHOD 10/08/2024 1:09 AM EDT [facility] Lymphocytes % 10 % LAB HEMATOLOGY METHOD 10/08/2024 1:09 AM EDT [facility] Monocytes % 18 % LAB HEMATOLOGY METHOD 10/08/2024 1:09 AM EDT [facility] Eosinophils % 0 % LAB HEMATOLOGY METHOD 10/08/2024 1:09 AM EDT [facility] Basophils % 1 % LAB HEMATOLOGY METHOD 10/08/2024 1:09 AM EDT [facility] Immature Granulocytes % 1 % LAB HEMATOLOGY METHOD 10/08/2024 1:09 AM EDT [facility] Neutrophils Absolute 7.97(H) 1.60 - 6.10 10*3/uL LAB HEMATOLOGY METHOD 10/08/2024 1:09 AM EDT [facility] Lymphocytes Absolute 1.17(L) 1.20 - 3.90 10*3/uL LAB HEMATOLOGY METHOD 10/08/2024 1:09 AM EDT [facility] Monocytes Absolute 2.01(H) 0.30 - 0.90 10*3/uL LAB HEMATOLOGY METHOD 10/08/2024 1:09 AM EDT [facility] Eosinophils Absolute 0.02 0.00 - 0.50 10*3/uL LAB HEMATOLOGY METHOD 10/08/2024 1:09 AM EDT [facility] Basophils Absolute 0.07 0.00 - 0.10 10*3/uL LAB HEMATOLOGY METHOD 10/08/2024 1:09 AM EDT [facility] Immature Granulocytes Absolute 0.08(H) 0.00 - 0.06 10*3/uL LAB HEMATOLOGY METHOD 10/08/2024 1:09 AM EDT [facility] Blood Venous blood specimen / Unknown Venipuncture / Unknown 10/08/2024 12:55 AM EDT 10/08/2024 1:05 AM EDT Narrative [facility] - 10/08/2024 1:09 AM EDT Therapeutic decision making should be based on absolute values, rather than percentages. us Mickie Jefferson MD LAB BLOOD ORDERABLES Final Re sult Performing Organization Address City/[facility]/ZIP Co de Phone Number [facility] [address] [place] [address] * Type and screen (10/08/2024 12:55 AM [...] ORDERABLE S Final Result Performing Organization Address [facility] Co de Phone Number BLOOD BANK [address] [place] [address], * CT OUTSIDE IMAGES (10/07/2024 7:58 PM EDT) Anatomical Region Laterality Modality Computed Tomogra phy 10/07/2024 7:58 PM EDT us External Provider IMG CT PROCEDURES Final Result from Last [address] [address] [place] Advance Directives * Full Code (Latest Code Status on File) Date Activated Date Inactivated Comments 10/08/2024 4:28 AM 10/09/2024 5:43 PM Question Answer Comments I have reviewed the capacity from the link above and, if needed, have updated to appropriate status: Yes Care Teams Signal Operator Technical Relationship Specialty Start Date End Date Tayo Jones MD [address] [place] [address] PCP - General 07/14/24
== END 2024-12-16 23:59 | disposition home or self-care (01) ==
LOC: LAB.DROPOF 12-22 10:05
PROVIDERS: PCP Family Medicine; Visit Provider Internal Medicine Medical Oncology
DX: R69 Illness, unspecified (principal)
CPT/HCPCS: J1642

== ENCOUNTER 2024-12-29 13:44 | Outpatient (CLI) | payer MEDICAID, SELFPAY ==
--- OUTSIDE RECORDS SUMMARY | 2024-11-19 07:09 | XMS_ITS | Encounter Summary ---
Author Organization [facility] Address [address] [id number] Care Team Providers Care Locomotive Boilermaker Name Role Phone Tayo Jones MD Primary Care Provider Reason for Referral * Imaging (Routine) - Closed Specialty Diagnoses / Procedures Referred By Samia pagan Referred To Contact Radiology Diagnoses Metastatic colon cancer to liver (CMS/HCC) Procedures CT Abdomen Pelvis w IV Contrast Farhad Castillo MD [address] [address] Phone: tel: fax: Referral ID Status Reason Start Date Expiration Date Visits Re quested Visits Authorized [id number] Closed 08/03/2024 02/02/2026 1 1 * Imaging (Routine) - Closed Specialty Diagnoses / Procedures Referred By Samia pagan Referred To Contact Radiology Diagnoses Metastatic colon cancer to liver (CMS/HCC) Procedures CT Chest w IV Contrast Farhad Castillo MD [address] [address] Phone: tel: fax: Referral ID Status Reason Start Date Expiration Date Visits Re quested Visits Authorized [id number] Closed 08/03/2024 02/02/2026 1 1 Reason for Visit * Imaging (Routine) - Closed Specialty Diagnoses / Procedures Referred By Samia t Referred To Contact Radiology Diagnoses Metastatic colon cancer to liver (CMS/HCC) Procedures CT Abdomen Pelvis w IV Contrast Farhad Castillo MD [address] [place] [phone] Phone: tel: fax: Referral ID Status Reason Start Date Expiration Date Visits Re quested Visits Authorized [id number] Closed 08/03/2024 02/02/2026 1 1 Encounter Details Date Type Department Care Team (Latest Contact Info) Description 11/19/2024 7:09 AM EDT - 11/19/2024 11:59 PM EDT Hospital Encounter [facility] CT [address] [place] [address] Metastatic colon cancer to liver [...] any time in the past 12 m [facility], were you homeless or living in a custodial (including now)? No 10/09/2024 Utilities Answer Date [...] Score 0 11/19/2024 10:49 AM EDT Anshugiuseppe Andrewsayra Pagan documented as of this encounter Medications [...] nightly. 05/29/2024 lisinopril 20 MG tablet 10/26/2024 lisinopril-hydroC HLOROthiazide 20-25 MG tablet Take 1 tablet by mouth daily. loperamide (Imodium A-D) 2 MG tablet 04/19/2024 magnesium oxide (Mag-Ox) 400 MG tablet 11/07/2024 Multiple Vitamin (multivitamin) tablet Take 1 tablet by mouth daily. ondansetron (Zofran) 4 MG tablet 04/19/2024 potassium chloride CR (Klor-Con M20) 20 MEQ ER tablet 11/09/2024 Quercetin 500 MG capsule Take 2 tablets by mouth daily. sodium bicarbonate 650 MG tablet 11/09/2024 spironolactone (Aldactone) 25 MG tablet Take 1 tablet by mouth daily. 07/11/2024 doxycycline (Vibramycin) 100 MG capsule 11/11/2024 12/24/2024 documented as of this encounter Miscellaneous Notes * Cony Burleson Alexsandra R - 11/19/2024 7:12 AM EDT Images from the [...] Care Team (Late st Contact Info) Description 01/06/2025 Hospital Encounter [facility] [address] [place] [address] Farhad Castillo MD 800 [facility] [address] [place] [id number] 02/04/2025 10:15 AM EDT Office Visit [facility] [address], [address] [place] [address] Heidi March MD [address] [place] [address] Scheduled Procedures Name Priority Associated Diagnoses Date/Ti me HEPATECTOMY, PARTIAL Metastatic colon cancer to liver (CMS/HCC) REPAIR, HERNIA, EPIGASTRIC Metastatic colon cancer to liver (CMS/HCC) documented as of this encounter Procedures Procedure [...] Total DLP (Dose-Length Product): 3353.28 mGy.cm (accession [id number]), 3353.28 mGy.cm (accession [id number]) Please note: The reported value represents the [...] Total DLP (Dose-Length Product): 3353.28 mGy.cm (accession [id number]),3353.28 mGy.cm (accession [id number]) Please note: The reported valuerepresents the total [...] cm. . Other previously noted lesion within iivkewi3W/8 remains difficult to clearly delineate. Unremarkable gallbladder.Stable [...] Total DLP (Dose-Length Product): 3353.28 mGy.cm (accession [id number]), 3353.28 mGy.cm (accession [id number]) Please note: The reported value represents the [...] Total DLP (Dose-Length Product): 3353.28 mGy.cm (accession [id number]),3353.28 mGy.cm (accession [id number]) Please note: The reported valuerepresents the total [...] cm. . Other previously noted lesion within iqarvno2Y/8 remains difficult to clearly delineate. Unremarkable gallbladder.Stable [...] documented as of this encounter Care Teams Locomotive Boilermaker Relationship Specialty Start Date End Date Tayo Jones MD [address] [phone] PCP - General 07/14/24 documented as of this encounter
--- OUTSIDE RECORDS SUMMARY | 2024-11-19 11:15 | XMS_ITS | Encounter Summary ---
Author Organization [facility] Address [address] [id number] Care Team Providers Care Prefitter Doors Name Role Phone Tayo Jones MD Primary Care Provider [phone] Reason for Referral * Consultation (Routine) - Authorized Specialty Diagnoses / Procedures Referred By Samia pagan Referred To Contact General Surgery Diagnoses Metastatic colon cancer to liver (CMS/HCC) Farhad Castillo MD [address] [address] Phone: tel: fax: Heidi March MD [address] [place] [address] Phone: tel: fax: Referral ID Status Reason Start Date Expiration Date Visits Requested Visits Authorized [id number] Authorized Specialty Services Required 11/19/2024 05/21/2026 1 1 Scheduling Instructions Hernia repair possible combo surgery w/ Dr. Castillo * Imaging (Routine) - Closed Specialty Diagnoses / Procedures Referred By Samia pagan Referred To Contact Cardiology Diagnoses High risk surgery, pre-operative cardiovascular examination Shortness of breath on exertion Procedures NM Myocardial Perfusion Stress Test Farhad Castillo MD [address] [address] Phone: tel: fax: Referral ID Status Reason Start Date Expiration Date Visits Re quested Visits Authorized [id number] Closed 11/19/2024 05/21/2026 1 1 * Imaging (Routine) - Closed Specialty Diagnoses / Procedures Referred By Samia pagan Referred To Contact Radiology Diagnoses Metastatic colon cancer to liver (CMS/HCC) Procedures MR Abdomen w and wo IV Contrast Farhad Castillo MD [address] [address] Phone: tel: fax: Referral ID Status Reason Start Date Expiration Date Visits Re quested Visits Authorized [id number] Closed 11/19/2024 05/21/2026 1 1 Reason for Visit * Reason Comments Routine Follow-up Encounter Details Date Type Department Care Team (Latest Contact Info) Description 11/19/2024 11:15 AM EDT Office Visit [facility] Multidisciplinary Oncology Clinic [address] [place] [phone] Farhad Castillo MD [address] [phone] Metastatic colon cancer to liver (CMS/HCC) (Primary Dx); High risk surgery, pre-operative cardiovascular examination; Shortness of breath on exertion Social History Tobacco Use Types Packs/Day Years [...] any time in the past 12 m [facility], were you homeless or living in a jail (including now)? No 10/09/2024 Utilities Answer Date Recorded In the past 12 months has th e [employer], gas, oil, or water company threatened to [...] Sign Reading Time Taken Comments Blood Pressure 121/75 11/19/2024 10:43 AM EDT Pulse 98 11/19/2024 10:43 AM EDT Temperature 36.5 C (97.7 F) 11/19/2024 10:43 AM EDT Respiratory Rate - - Oxygen Saturation 97% 11/19/2024 10:43 AM EDT Inhaled Oxygen Concentration - - Weight 112 kg (246 lb 11.1 oz) 11/19/2024 10:43 AM EDT Height 180.3 cm (5' 11 ) 11/19/2024 10:43 AM EDT Body Mass Index 34.41 11/19/2024 10:43 AM EDT documented in this encounter Functional Status * AUDIT-C Score Answer Date of Assessment Author 0 11/19/2024 10:43 AM EDT Jr Amaro * Question Answer Date of Assessment Author Q1: How often do you have a drink containing alcohol? Never 11/19/2024 10:43 AM EDT Jr Amaro T Q2: How many drinks containing alcohol do you have on a typical day when you are drinking? Patient does not drink 11/19/2024 10:43 AM EDT Jr Amaro Q3: How often do you have six or more drinks on one occasion? Never 11/19/2024 10:43 AM EDT Jr Amaro * Over the past 2 weeks, how often have you been bothered by any of the following problems? Question Answer Date of Assessment Author Little interest or pleasure in doing things Not at all 11/19/2024 10:49 AM EDJr Ross Feeling down, depressed, or hopeless Not at all 11/19/2024 10:49 AM EDT Jr Amaro Patient Health Questionnaire-2 Score 0 11/19/2024 10:49 AM EDT Jr Amaro documented as of this encounter Miscellaneous Notes * Progress Notes - Farhad Castillo MD - 11/19/2024 11:15 AM EDT Surgical Oncology Outpatient Follow-Up Chief complaint: Nayan Womack is a 59 y.o. Stage IV Colon CA History of Present Illness: HPI patient is a very pleasant 59-year-old with a history of stage IV colon cancer, he is currently under the care of Dr. Tayo Ray. He was originally diagnosed with a right-sided colon cancer in October of 2022 he completed adjuvant Xeloda in December of 2022 he was lost to follow-up through March of 2023 after completing 3 months of adjuvant Xeloda. In March of 2024 CEA was rising to 4.8 on routine clinical follow-up, CT scan demonstrated 2 liver lesions follow-up PET scan in June of 2024 demonstrated 3 FDG avid lesions predominantly located in segment 7 and 6 of the liver. He was then seen by our service on July 23, 2024 and we recommended perioperative systemic chemotherapy. He has now completed 3 months of treatment with single agent Irinotecan with Dr. Matthew and comes for restaging scans and discussion of liver directed therapy. Past Medical History: Past Medical History Pertinent Negatives[1] See above Past Surgical History: Surgical History[2] See above Social History: Tobacco: Tobacco Use: Low Risk (11/19/2024) Patient History Smoking Tobacco Use: Never Smokeless Tobacco Use: Never Passive Exposure: Not on file Alcohol: Alcohol Use: Not At Risk (11/19/2024) AUDIT-C Frequency of Alcohol Consumption: Never Average Number of Drinks: Patient does not drink Frequency of Binge Drinking: Never Illicit drug use: Social History Substance and Sexual Activity Drug Use Never Allergies: Allergies[3] Family Medical History: family history includes paternal aunt breast cancer in an other family member. Home Medications: Prior to Admission medications Medication Sig Start Date End Date Taking? Authorizing Provider acetaminophen (Tylenol) 500 MG tablet Take 1 tablet by mouth every 6 hours as needed for pain. 07/31/24 Yes Farhad Castillo MD carvedilol (Coreg) 12.5 MG tablet Take by mouth in the morning and in the evening. Take with meals.07/30/23 Yes Tj Guerra MD doxycycline (Vibramycin) 100 MG capsule 11/11/24 Yes Tj Guerra MD ferrous sulfate 325 (65 Fe) MG EC tablet 08/12/23 Yes Tj Guerra MD insulin lispro (Admelog, HumaLOG) 100 UNIT/ML injection pen Inject 10 Units under the skin 3 (three) times a day with meals. 08/01/23 Yes Tj Guerra MD lisinopril 20 MG tablet 10/26/24 Yes Tj Guerra MD lisinopril-hydroCHLOROthiazide 20-25 MG tablet Take 1 tablet by mouth daily. Yes Tj Guerra MD magnesium oxide (Mag-Ox) 400 MG tablet 11/07/24 Yes Tj Guerra MD Multiple Vitamin (multivitamin) tablet Take 1 tablet by mouth daily. Yes Tj Guerra MD potassium chloride CR (Klor-Con M20) 20 MEQ ER tablet 11/09/24 Yes Tj Guerra MD sodium bicarbonate 650 MG tablet 11/09/24 Yes Tj Guerra MD spironolactone (Aldactone) 25 MG tablet Take 1 tablet by mouth daily. 07/11/24 Yes Tj Guerra MD amLODIPine (Norvasc) 5 MG tablet Take 1 tablet by mouth in the morning. Patient not taking: Reported on 07/27/2024 Tj Guerra MD capecitabine (Xeloda) 500 MG chemo tablet Take 3 tablets (1,500 mg total) by mouth 2 (two) times a day. Swallow whole with water. Do not crush or cut. Tj Guerra MD Lanejus SoloStar 100 UNIT/ML injection pen Inject 35 Units under the skin nightly. 05/29/24 Tj Guerra MD ondansetron (Zofran) 4 MG tablet 04/19/24 Tj Guerra MD Quercetin 500 MG capsule Take 2 tablets by mouth daily. Tj Guerra MD Review of Systems: 14 ROS was conducted and is otherwise negative unless noted in HPI. Objective: All laboratory, images, tracings, and vital sign data are personally reviewed unless otherwise noted. Visit Vitals BP 121/75 (BP Location: Right arm, Patient Position: Sitting, BP Cuff Size: Adult) Pulse 98 Temp 36.5 ??C (97.7 ??F) (Oral) Ht 1.803 m (5' 11 ) Wt 112 kg (246 lb 11.1 oz) SpO2 97% BMI 34.41 kg/m?? Physical exam: GENERAL: WD, WN, NAD. EYES: No scleral icterus or conjunctivitis HENT: Atraumatic, normocephalic, nares patent, mucus membranes moist NECK: Supple, no JVD, no evidence of bruit bilaterally RESP/CHEST: Symmetric expansion; non labored. CTA bilaterally. CARD: Regular rate and rhythm, no murmur Extremities: No cyanosis or clubbing. Pedal pulses palpable +2. GI: No organomegaly or masses. Soft, Nontender, nondistended. BS present and normoactive x 4 quadrants SKIN: No rash, sores, lesions or subcutaneous nodules. NEURO: AAOx4. Motor intact and no focal deficits PSYCH: Mood and affect congruent and appropriate to situation. CBC, CMP, CEA, Pre-albumin and HgBA1C Pending Lab Results Component Value Date WBC 8.37 11/19/2024 HGB 12.1 (L) 11/19/2024 HCT 36.4 (L) 11/19/2024 MCV 92 11/19/2024 PLT 341 11/19/2024 Lab Results Component Value Date ALT 20 11/19/2024 AST 30 11/19/2024 ALKPHOS 90 11/19/2024 BILITOT 0.4 11/19/2024 Lab Results Component Value Date CREATININE 1.06 11/19/2024 BUN 20 11/19/2024 NA 132 (L) 11/19/2024 K 4.7 11/19/2024 CL 101 11/19/2024 CO2 18 (L) 11/19/2024 Recent Labs Units 07/23/24 1036 11/19/24 1126 CEA ng/mL 9.1* 7.7* Final Diagnosis (no units) Date/Time Value 07/16/2024 1313 RIGHT COLON AND TERMINAL ILEUM, RIGHT HEMICOLECTOMY ([id number]; 11/09/2022): - 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 - TUMOR BUDDING SCORE: HIGH (10 OR GREATER). - NO TUMOR SEEN IN TWENTY ONE LYMPH NODES (0/21). Comment (no units) Date/Time Value 07/16/2024 1313 Per pathology report immunohistochemical stains for MMR proteins showed retained nuclear immunoreaction for all 4 proteins (MLH-1, MSH-2, MSH-6, and PMS-2). Radiographics/Diagnostics: === 11/19/24 === CT ABDOMEN PELVIS W IV CONTRAST - Narrative - CLINICAL INDICATION: Metastatic colon cancer to liver (CMS/HCC) TECHNIQUE: Multiple axial CT images were obtained from thoracic inlet through pubic symphysis following administration of IV contrast, Omnipaque 300, 100 mL. Reformatted images in the coronal and sagittal planes were generated from the axial data set to facilitate diagnostic accuracy. Total DLP (Dose-Length Product): 3353.28 mGy.cm (accession [id number]), 3353.28 mGy.cm (accession [id number]) Please note: The reported value represents the total of one or more individual components during the CT acquisition on this date and at this time, and as such, the same value may appear in morethan one CT report depending on the interpreting/reporting [...] parenchymal disease. There is a 2.2 cm low- attenuation lesion at the liver dome (series 12 [...] is patent. Abdominal aorta is normal in caliberand patent. Borderline-enlarged portacaval lymph nodes are again noted measuring up to 1.2 cm (series 9 image 83). Free Fluid: No ascites Musculoskeletal and Body Wall: No clearly aggressive bone lesions. - Impression - Chest: No evidence of disease progression. Abdomen/Pelvis: Continued slight interval decrease in size of liver metastatic deposits. Consider MRI for next follow-up since background parenchymal liver changes create difficulty in visualization of lesions. CRITICAL RESULT: No. COMMUNICATION: Per this written report. Drafted by Da Trevino MD on 11/19/2024 9:35 AM Final report signed by Da Trevino MD on 11/19/2024 10:42 AM === 02/18/23 === MR OUTSIDE IMAGES Assessment & Plan: Quentin is a 59-year-old with stage IV colon cancer originally diagnosed in October of 2022 after a perforated appendectomy demonstrated a right side of the colon lesion, right hemicolectomy was then performed he had a T4 a N0 colon cancer he completed 3 months of adjuvant Xeloda in December of 2022 and then he was lost to follow-up. In March of 2024 he had a rising CEA as well as 3 separate small lesions located in the right liver which were biopsy-proven adenocarcinoma of the colon. He has now completed 3 months of systemic chemotherapy with single agent Irinotecanand comes to discuss liver directed therapy options. Based on my reviews had an excellent response w ith limited disease located in the right liver specifically segment 6 and 7, I have placed him on for upper GI tumor board review this week. Additionally I would like to obtain an MRI liver protocol to ensure that there were no new lesions, we will also obtain a cardiac stress test for cardiac risk stratification purposes. We will also need to coordinate additional care with 1 of our hernia specialists as he has a large incisional hernia from his previous right-sided colon operation. I assume that we will likely operate on him within the next 4-6 weeks based on preoperative workup. All immediate questions were reviewed and discussed in detail and follow-up for consent will be obtained 1-2 weeks prior to surgery. Tumor board review confirms excellent response to systemic therapy with 2 residual small lesions located in segment 8 high in the dome of the liver and segment 6 also relatively peripherally both amenable to curative surgical resection. I will need to coordinate additional care with either of our hernia specialist to schedule combo cases. I spent 60 minutes was spent on this encounter; including preparing to see the patient, which involved review/interpretation of diagnostics and reports; obtaining and/or reviewing separately obtainedhistory; performing appropriate physical exam; ordering/scheduling medications, tests or procedures; communicating findings, discussing diagnosis, prognosis, and treatment plans and counseling/educating the patient, family and/or caregiver; documentation in EMR; and care coordination. His chronic comorbid conditions that impact our treatment planning include: Diabetes (DM) - poorly controlled, with a last HbA1C of: 7.6 Obesity - needs improvement, with a last BMI of: Body mass index is 34.41 kg/m??. Metastatic Cancer Farhad Castillo MD 11/19/24 10:59 AM [1] Past Medical History: Diagnosis Date Diabetes (CMS/HCC) High blood pressure [2] Past Surgical History: Procedure Laterality Date APPENDECTOMY FOOT SURGERY Left surgery dur to diabetes LEG SURGERY Right surgery dur to diabetes [3] No Known Allergies documented in this encounter Plan of Treatment Upcoming Encounters Date Type Department Care Team (Late st Contact Info) Description 01/06/2025 Hospital Encounter [facility] [address] [place] [address] Farhad Castillo MD [address] [phone] 02/04/2025 10:15 AM EDT Office Visit [facility] General Surgery [address] [place] [address] Heidi March MD [address] [place] [address] Scheduled Procedures Name Priority Associated Diagnoses Date/Ti me HEPATECTOMY, PARTIAL Metastatic colon cancer to liver (CMS/HCC) REPAIR, HERNIA, EPIGASTRIC Metastatic colon cancer to liver (CMS/HCC) Scheduled Referrals Name Type Priority Associated Diagnoses Order Schedule Ambulatory referral to Endocrine Surgery ([facility]) Outpatient Referral Routine Metastatic colon cancer to liver (CMS/HCC) Expected: 12/03/2024, Expires: 05/23/2026 documented as of this encounter Results * MR Abdomen w and wo IV Contrast (12/17/2024 12:29 PM EDT) Anatomical Region Laterality Modality Abdomen Magnetic Resonan ce Impressions 12/17/2024 4:48 PM EDT Stable size of hepatic metastatic lesions and the mildly enlarged gregory hepatis/portacaval nodes allowing for differences in modality, no new suspicious focal hepatic lesion. CRITICAL RESULT: No. COMMUNICATION: Per this written report. By electronically signing this report, I, the attending physician, attest that I have personally reviewed the images/data for the above examination(s) and agree with the final edited report. Drafted by Shiraz Valencia MD on 12/17/2024 1:59 PM Final report signed by Tawana Borrego MD on 12/17/2024 4:48 PM Narrative 12/17/2024 4:48 PM EDT CLINICAL INDICATION: Metastatic colon cancer to liver (CMS/HCC) TECHNIQUE: MR imaging of the abdomen was performed with and without intravenous contrast material using the following sequences: coronal single shot T2 weighted fast spin echo, axial T2 weighted sequences with and without fat saturation, axial dual phase gradient echo, pre and dynamic postcontrast 3-D T1 weighted gradient echo with fat saturation (axial and coronal), and axial diffusion. 11.3 mL of Gadavist was administered. COMPARISON: 11/19/2024 CT abdomen and pelvis 02/18/2023 MR abdomen FINDINGS: Liver: Diffuse hepatic steatosis. Morphologic changes suggestive of chronic parenchymal disease characterized by fissural widening. No significant iron deposition. Redemonstration of hepatic metastatic lesions which demonstrate intermediate T2 signal and enhancement, though without significant restricted diffusion. No new suspicious focal hepatic lesion. Prior Index lesions detailed below: -At the dome, stable 2.2 cm enhancing lesion seen on 11:18 -Segment 8, 1.8 cm enhancing lesion, stable on remeasurement allowing for differences in modality, seen on 11:34 -Segment 4A/8, 1.7 cm enhancing lesion, grossly stable though difficult to delineate on comparison, seen on 11:25 Gallbladder and biliary tree: Unremarkable. No biliary ductal dilatation. Pancreas: Normal signal intensity. No pancreatic ductal dilatation. No suspicious mass or lesion. Spleen: Unremarkable. Adrenal Glands: Unremarkable. Kidneys: Nodular nephrosis, right lower pole simple cyst. Vasculature: Normal caliber abdominal aorta. Patent major vasculature. Lymph Nodes: Similar 13 mm and 12 mm gregory hepatis/portacaval nodes on 7:17 and 20 Fluid Survey: No ascites. Musculoskeletal: No aggressive osseus lesions. Procedure Note Tawana Borrego MD - 12/17/2024 CLINICAL INDICATION: Metastatic colon cancer to liver (CMS/HCC) TECHNIQUE: MR imaging of the abdomen was performed with and without intravenouscontrast material using the following sequences: coronal single shot [id number] fast spin echo, axial T2 weighted sequences with and without fatsaturation, axial dual phase gradient echo, pre and dynamic postcontrast3-D T1 weighted gradient echo with fat saturation (axial and coronal), andaxial diffusion. 11.3 mL of Gadavist was administered. COMPARISON: 11/19/2024 CT abdomen and pelvis 02/18/2023 MR abdomen FINDINGS: Liver: Diffuse hepatic steatosis. Morphologic changes suggestive ofchronic parenchymal disease characterized by fissural widening. Nosignificant iron deposition. Redemonstration of hepatic metastatic lesionswhich demonstrate intermediate T2 signal and enhancement, though withoutsignificant restricted diffusion. No new suspicious focal hepatic lesion.Prior Index lesions detailed below: -At the dome, stable 2.2 cm enhancing lesion seen on 11:18 -Segment 8, 1.8 cm enhancing lesion, stable on remeasurement allowing fordifferences in modality, seen on 11:34 -Segment 4A/8, 1.7 cm enhancing lesion, grossly stable though difficult todelineate on comparison, seen on 11:25 Gallbladder and biliary tree: Unremarkable. No biliary ductaldilatation. Pancreas: Normal signal intensity. No pancreatic ductal dilatation. Nosuspicious mass or lesion. Spleen: Unremarkable. Adrenal Glands: Unremarkable. Kidneys: Nodular nephrosis, right lower pole simple cyst. Vasculature: Normal caliber abdominal aorta. Patent major vasculature. Lymph Nodes: Similar 13 mm and 12 mm gregory hepatis/portacaval nodes on7:17 and 20 Fluid Survey: No ascites. Musculoskeletal: No aggressive osseus lesions. IMPRESSION: Stable size of hepatic metastatic lesions and the mildly enlarged portahepatis/portacaval nodes allowing for differences in modality, no newsuspicious focal hepatic lesion. CRITICAL RESULT: No. COMMUNICATION: Per this written report. By electronically signing this report, I, the attending physician, attestthat I have personally reviewed the images/data for the aboveexamination(s) and agree with the final edited report. Drafted by Shiraz Valencia MD on 12/17/2024 1:59 PM Final report signed by Tawana Borrego MD on 12/17/2024 4:48 PM us Farhad Castillo MD IMG MRI PROCEDURES Final R esult * NM MYOCARDIAL SPECT REGADENOSON STRESS (MULTI STUDY) (12/17/2024 9:45 AM EDT) Target HR 136 bpm MUSE MPHR 160 bpm MUSE Resting HR 69 bpm MUSE Baseline Systolic BP 132 MUSE Baseline Diastolic BP 79 MUSE Pharma PK HR 86 bpm MUSE Pharmacologic Peak BP Systolic 107 mmHg MUSE Pharmacologic Peak BP Diastolic 67 mmHg MUSE Anatomical Region Laterality Modality Nuclear Medicine Narrative 12/17/2024 5:25 PM EDT Combined ECG/SPECT: This is a normal nuclear stress test. There is no evidence of myocardial ischemia. Stress ECG: No ischemic ST segment changes occurred with stress. Perfusion: SPECT images demonstrate normal myocardial perfusion. Function: LVEF: 65 - 69%. Gated SPECT images demonstrate normal systolic function. Regional wall motion is normal. Normal left ventricular cavity size. There is no previous examination/report available for comparison or correlation. Technical Details A one-day protocol was followed. 8 mCi of Tc-99m sestamibi were injected intravenously at rest. After a waiting period of 40-60 minutes, SPECT imaging of the heart was performed in the sitting upright position with three-dimensional tomographic reconstructions. 0.4 mg of regadenoson was infused over 10-12 seconds followed by 24.9 mCi of Tc-99m sestamibi injected intravenously. After a waiting period of 40-60 minutes, post-stress SPECT imaging of the heart was performed in the sitting upright and supine positions with three-dimensional tomographic reconstructions. Gated SPECT data were obtained to calculate left ventricular volumes and ejection fraction post-stress. Motion correction was not applied to the rest and/or post-stress acquisitions. Stress Findings A pharmacological stress test was performed. The pharmacologic test was performed using regadenoson. The patient started with a baseline heart rate of 69bpm, and increased to 86bpm with stress pharmacologic agent. The patient's baseline blood pressure was 132/79, and changed to 107/67 with stress medication. The patient's BP decreased during the pharmacologic stress. The patient experienced no chest pain. The patient reached the end of the planned protocol. Stress ECG Baseline ECG: The baseline ECG shows normal sinus rhythm, 69 bpm, right bundle branch block, left axis deviation and a primary T wave abnormality. Baseline ECG shows no ST segment deviation. Stress and Recovery ECG: Stress ECG showed NSR, [address] segment changes occurred. There were no arrhythmias during stress. There were no arrhythmias during recovery. ECG Conclusion: No ischemic ST segment changes occurred with stress. The stress test was performed under direct supervision of the reading graphics editor. Study Impression There is no significant patient motion noted. The SPECT images demonstrate a normal left ventricular cavity size with an estimated left ventricular end-diastolic volume of 81 mL (normal: <149 mL for males, < 102 mL for females, small: <45 mL). There is no stress-induced transient ischemic dilation (TID) of the left ventricular cavity. SPECT images demonstrate normal myocardial perfusion. There is no perfusion defect located in the myocardium. There is a sufficiently regular cardiac rhythm. The gated SPECT images demonstrate normal systolic function. Regional wall motion is normal. The calculated post-stress LVEF is 65 - 69%. Nuclear Conclusion Combined ECG/SPECT: This is a normal nuclear stress test. There is no previous examination/report available for comparison or correlation. Farhad Castillo MD CV STRESS PROCEDURES Final Result * Prealbumin, Plasma (11/19/2024 11:26 AM EDT) Prealbumin, Plasma 25.7 20.0 - 41.0 mg/dL 11/19/2024 12:19 PM EDT [facility] Blood Venous blood specimen / Unknown Venipuncture / Unknown 11/19/2024 11:26 AM EDT 11/19/2024 11:47 AM EDT Farhad Castillo MD LAB BLOOD ORDERABLES Final Result [facility] [address] [place] [address] * (ABNORMAL) Hemoglobin A1c (11/19/2024 11:26 AM EDT) Hemoglobin A1c 7.3(H) <5.7 % 11/19/2024 12:49 PM EDT [facility] Blood Venous blood specimen / Unknown Venipuncture / Unknown 11/19/2024 11:26 AM EDT 11/19/2024 11:47 AM EDT Narrative [facility] - 11/19/2024 12:49 PM EDT HA1C Interpretive Data: Diagnosis of [...] Organization Address [facility] [facility] Co de Phone Number [facility] [address] [place] [address] * (ABNORMAL) CEA, Serum (11/19/2024 11:26 AM EDT) CEA, Serum 7.7(H) <4.0 ng/mL 11/19/2024 12:31 PM EDT [facility] Blood Venous blood specimen / Unknown Venipuncture / Unknown 11/19/2024 11:26 AM EDT 11/19/2024 11:47 AM EDT Narrative [facility] - 11/19/2024 12:31 PM EDT Normal range for smokers: < 5.5 ng/ml Normal range for non-smokers: <=4.0 ng/ml Performed by [employer] electrochemiluminescent immunoassay. Results obtained with different test methods or kits cannot be used interchangeably. Farhad Castillo MD LAB BLOOD ORDERABLES Final Result Performing Organization Address City/[facility]/ZIP Co de Phone Number [facility] [address] [place] [address] * (ABNORMAL) CBC W/O Differential (11/19/2024 11:26 AM EDT) WBC Count 8.37 3.70 - 10.30 10*3/uL LAB HEMATOLOGY METHOD 11/19/2024 11:55 AM EDT [facility] RBC Count 3.98(L) 4.60 - 6.10 10*6/uL LAB HEMATOLOGY METHOD 11/19/2024 11:55 AM EDT [facility] HGB 12.1(L) 13.7 - 17.5 g/dL LAB HEMATOLOGY METHOD 11/19/2024 11:55 AM EDT [facility] HCT 36.4(L) 40.0 - 51.0 % LAB HEMATOLOGY METHOD 11/19/2024 11:55 AM EDT [facility] Platelet Count 341 155 - 369 10*3/uL LAB HEMATOLOGY METHOD 11/19/2024 11:55 AM EDT [facility] MCV 92 79 - 98 fL LAB HEMATOLOGY METHOD 11/19/2024 11:55 AM EDT [facility] MCH 30.4 26.0 - 32.0 pg LAB HEMATOLOGY METHOD 11/19/2024 11:55 AM EDT [facility] MCHC 33.2 30.7 - 35.5 g/dL LAB HEMATOLOGY METHOD 11/19/2024 11:55 AM EDT [facility] RDW 13.9 11.5 - 14.5 % LAB HEMATOLOGY METHOD 11/19/2024 11:55 AM EDT [facility] MPV 8.7(L) 8.8 - 12.5 fL LAB HEMATOLOGY METHOD 11/19/2024 11:55 AM EDT [facility] nRBC 0.0 <=0.0 per 100 WBCs LAB HEMATOLOGY METHOD 11/19/2024 11:55 AM EDT [facility] Blood Venous blood specimen / Unknown Venipuncture / Unknown 11/19/2024 11:26 AM EDT 11/19/2024 11:47 AM EDT Farhad Castillo MD LAB BLOOD ORDERABLES Final Result [facility] [address] [place] [address] * (ABNORMAL) Comprehensive Metabolic Panel, Plasma (11/19/2024 11:26 AM EDT) [facility] Glucose, Plasma 174(H) 74 - 99 mg/dL 11/19/2024 12:19 PM EDT [facility] BUN, Plasma 20 8 - 23 mg/dL 11/19/2024 12:19 PM EDT [facility] Creatinine, Plasma 1.06 0.70 - 1.20 mg/dL 11/19/2024 12:19 PM EDT [facility] BUN/Creatinine Ratio 19 11/19/2024 12:19 PM EDT [facility] Sodium, Plasma 132(L) 136 - 145 mmol/L 11/19/2024 12:19 PM EDT [facility] Potassium, Plasma 4.7 3.6 - 4.9 mmol/L 11/19/2024 12:19 PM EDT [facility] Chloride, Plasma 101 97 - 107 mmol/L 11/19/2024 12:19 PM EDT [facility] CO2, Plasma 18(L) 22 - 29 mmol/L 11/19/2024 12:19 PM EDT [facility] Anion Gap 13 6 - 16 mmol/L 11/19/2024 12:19 PM EDT [facility] Total Calcium, Plasma 9.3 8.9 - 10.2 mg/dL 11/19/2024 12:19 PM EDT [facility] Total Protein 6.9 6.3 - 7.9 g/dL 11/19/2024 12:19 PM EDT [facility] Albumin, Plasma 3.9 3.5 - 5.2 g/dL 11/19/2024 12:19 PM EDT [facility] AST, Plasma 30 10 - 50 U/L 11/19/2024 12:19 PM EDT [facility] ALT, Plasma 20 10 - 50 U/L 11/19/2024 12:19 PM EDT [facility] Alkaline Phosphatase, Plasma 90 40 - 115 U/L 11/19/2024 12:19 PM EDT [facility] Total Bilirubin, Plasma 0.4 0.2 - 1.1 mg/dL 11/19/2024 12:19 PM EDT [facility] eGFRcr 80.3 mL/min/1.7 3m*2 11/19/2024 12:19 PM EDT [facility] Comment:Reported eGFRcr in m L/min/1.73m2 is based the CKD-EPI 2020 equation that does not use a race coefficient. Blood Venous blood specimen / Unknown Venipuncture / Unknown 11/19/2024 11:26 AM EDT 11/19/2024 11:47 AM EDT us Farhad Castillo MD LAB BLOOD ORDERABLES Final Result [facility] [address] [place] [address] documented in this encounter Visit Diagnoses Diagnosis Metastatic colon cancer to liver (CMS/HCC)- Primary High risk surgery, pre-operative cardiovascular examination Pre-operative cardiovascular examination Shortness of breath on exertion Shortness of breath High risk surgery, pre-operative cardiovascular examination Pre-operative cardiovascular examination Shortness of breath on exertion Shortness of breath Metastatic colon cancer to liver (CMS/HCC) documented in this encounter Additional Health Concerns Assessment Noted Time A fall risk assessment has been complete d for the patient 07/23/2024 8:54 AM EDT A Body Mass Index follow-up plan has been documented for the patient 11/24/2024 5:29 PM EDT documented as of this encounter Care Teams Prefitter Doors Relationship Specialty Start Date End Date Tayo Jones MD [address] [place] [address] PCP - General 07/14/24 documented as of this encounter
--- OUTSIDE RECORDS SUMMARY | 2024-12-17 08:00 | XMS_ITS | Encounter Summary ---
Author Organization [facility] Address [address] [place] [address] Care Team Providers Care Diver'S Tender Name Role Phone Tayo Jones MD Primary Care Provider [phone] Reason for Referral * Imaging (Routine) - Closed Specialty Diagnoses / Procedures Referred By Samia pagan Referred To Contact Cardiology Diagnoses High risk surgery, pre-operative cardiovascular examination Shortness of breath on exertion Procedures NM Myocardial Perfusion Stress Test Farhad Castillo MD [address] [address] Phone: tel: fax: Referral ID Status Reason Start Date Expiration Date Visits Re quested Visits Authorized [id number] Closed 11/19/2024 05/21/2026 1 1 Reason for Visit * Imaging (Routine) - Closed Specialty Diagnoses / Procedures Referred By Samia pagan Referred To Contact Cardiology Diagnoses High risk surgery, pre-operative cardiovascular examination Shortness of breath on exertion Procedures NM Myocardial Perfusion Stress Test Farhad Castillo MD [address] [address] Phone: tel: fax: Referral ID Status Reason Start Date Expiration Date Visits Re quested Visits Authorized [id number] Closed 11/19/2024 05/21/2026 1 1 Encounter Details Date Type Department Care Team (Latest Contact Info) Description 12/17/2024 8:00 AM EDT - 12/17/2024 8:06 AM EDT Hospital Encounter Cardiac Imaging [address] [place] [address] High risk surgery, pre-operative cardiovascular examination; Shortness [...] any time in the past 12 m [facility], were you homeless or living in a fdc (including now)? No 10/09/2024 Utilities Answer Date Recorded In the past 12 months has e [employer], gas, oil, or water company threatened to [...] doxycycline (Vibramycin) 100 MG capsule 11/11/2024 12/24/2024 mupirocin (Bactroban) 2 % ointment 11/24/2024 12/24/2024 documented as of this encounter Plan of Treatment Upcoming Encounters Date Type Department Care Team (Late st Contact Info) Description 01/06/2025 Hospital Encounter [facility] A OPERATING ROOM [address] [place] [address] Farhad Castillo MD [address] 1[address] [place] [address] 02/04/2025 10:15 AM EDT Office Visit [facility] General Surgery [address], 1st [place] [address] Heidi March MD [address] [place] [address] Scheduled Procedures Name Priority Associated [...] performed under direct supervision of the reading sap director. Study Impression There is no significant patient [...] documented as of this encounter Care Teams Diver'S Tender Relationship Specialty Start Date End Date Tayo Jones MD [address] [id number] PCP - General 07/14/24 documented as of this encounter
--- OUTSIDE RECORDS SUMMARY | 2024-12-17 08:07 | XMS_ITS | Encounter Summary ---
Author Organization [facility] Address [address] [place] [address] Care Team Providers Care Laborer Landscape Name Role Phone Tayo Jones MD Primary Care Provider [phone] Reason for Visit * Imaging (Routine) - Closed Specialty Diagnoses / Procedures Referred By Samia pagan Referred To Contact Cardiology Diagnoses High risk surgery, pre-operative cardiovascular examination Shortness of breath on exertion Procedures NM Myocardial Perfusion Stress Test Farhad Castillo MD [address] [place] [address] Phone: tel: fax: Referral ID Status Reason Start Date Expiration Date Visits Re quested Visits Authorized [id number] Closed 11/19/2024 05/21/2026 1 1 Encounter Details Date Type Department Care Team (Latest Contact Info) Description 12/17/2024 8:07 AM EDT - 12/17/2024 11:26 AM EDT Hospital Encounter Cardiac Imaging [address] [place] [address] Discharge Disposition: Home or Self Care Social [...] in the past 12 m [facility], were you homeless or living in a care home (including now)? No 10/09/2024 Utilities Answer Date Recorded In the past 12 months has th e [employer], gas, oil, or water company threatened to [...] Hospital Encounter [facility] A OPERATING ROOM [address] [place] [address] Farhad Castillo MD [address] [phone] 02/04/2025 10:15 AM EDT Office Visit [facility] General Surgery [address], [address] [place] [address] Heidi March MD [address] [place] [address] Scheduled Procedures Name Priority Associated [...] documented as of this encounter Care Teams Laborer Landscape Relationship Specialty Start Date End Date Tayo Jones MD [address] [place] [address] PCP - General 07/14/24 documented as of this encounter
--- OUTSIDE RECORDS SUMMARY | 2024-12-17 11:27 | XMS_ITS | Encounter Summary ---
Author Organization [facility] Address [address] [place] [address] Care Team Providers Care Telephone Service Representative Name Role Phone Tayo Jones MD Primary Care Provider [phone] Reason for Referral * Imaging (Routine) - Closed Specialty Diagnoses / Procedures Referred By Samia pagan Referred To Contact Radiology Diagnoses Metastatic colon cancer to liver (CMS/HCC) Procedures MR Abdomen w and wo IV Contrast Farhad Castillo MD [address] [address] Phone: tel: fax: Referral ID Status Reason Start Date Expiration Date Visits Re quested Visits Authorized [id number] Closed 11/19/2024 05/21/2026 1 1 Reason for Visit * Imaging (Routine) - Closed Specialty Diagnoses / Procedures Referred By Samia pagan Referred To Contact Radiology Diagnoses Metastatic colon cancer to liver (CMS/HCC) Procedures MR Abdomen w and wo IV Contrast Farhad Castillo MD [address] [address] Phone: tel: fax: Referral ID Status Reason Start Date Expiration Date Visits Re quested Visits Authorized [id number] Closed 11/19/2024 05/21/2026 1 1 Encounter Details Date Type Department Care Team (Latest Contact Info) Description 12/17/2024 11:27 AM EDT - 12/17/2024 11:59 PM EDT Hospital Encounter [facility] Radiology [address] [place] [address] Metastatic colon cancer to liver (CMS/HCC) Discharge [...] any time in the past 12 m [facility], were you homeless or living in a care home (including now)? No 10/09/2024 Utilities Answer Date Recorded In the past 12 months has e [employer], [employer], oil, or water [employer] threatened to shut off services in your [...] Hospital Encounter [facility] A OPERATING ROOM [address] [place] [address] Farhad Castillo MD 800 [facility] [address] [place] [address] 02/04/2025 10:15 AM EDT Office Visit [facility] General Surgery [address], [address] [place] [address] Heidi March MD [address] [place] [address] Scheduled Procedures Name Priority Associated Diagnoses Date/Ti [...] using the following sequences: coronal single shot [id number] fast spin echo, axial T2 weighted sequences [...] documented as of this encounter Care Teams Telephone Service Representative Relationship Specialty Start Date End Date Tayo Jones MD [address] [place] [address] PCP - General 07/14/24 documented as of this encounter
--- OUTSIDE RECORDS SUMMARY | 2024-12-24 09:15 | XMS_ITS | Encounter Summary ---
Author Organization [facility] Address [address] [place] [address] Care Team Providers Care Nailhead Operator Name Role Phone Tayo Jones MD Primary Care Provider [phone] Reason for Referral * Consultation (Routine) - Authorized Specialty Diagnoses / Procedures Referred By Samia pagan Referred To Contact General Surgery Diagnoses Metastatic colon cancer to liver (CMS/HCC) Hernia Farhad Castillo MD [address] [address] Phone: tel: fax: Heidi March MD [address] [place] [address] Phone: tel: fax: Referral ID Status Reason Start Date Expiration Date Visits Requested Visits Authorized [id number] Authorized Specialty Services Required 12/24/2024 06/25/2026 1 1 Scheduling Instructions OK'D by Dr. March to be seen today. Combo surgery w/ on 01/06/2025 Reason for Visit * Reason Comments Follow-up Encounter Details Date Type Department Care Team (Latest Contact Info) Description 12/24/2024 9:15 AM EDT Office Visit [facility] Multidisciplinary Oncology Clinic [address] [place] [address] Farhad Castillo MD [address] [address] Metastatic colon cancer to liver [...] Recorded In the past 12 months has [employer], gas, oil, or water company threatened [...] of this encounter Miscellaneous Notes * H&P - Kalie Clemente - 12/24/2024 9:15 AM EDT Surgical Oncology [...] RIGHT COLON AND TERMINAL ILEUM, RIGHT HEMICOLECTOMY ([id number]; 11/09/2022): - INVASIVE MODERATELY DIFFERENTIATED ADENOCARCINOMA OF [...] saw and evaluated the patient with the medical/HAMMER FITTER/PA student. I discussed the case with the medical/HAMMER FITTER/PA student and agree with the findings and plan as documented. I personally performed the Examand Medical Decision Making. documented in this encounter Plan of Treatment Upcoming Encounters Date Type Department Care Team (Late st Contact Info) Description 01/06/2025 Hospital Encounter [facility] [address] [place] [address] Farhad Castillo MD [address] [facility] [address] [place] [address] 02/04/2025 10:15 AM EDT Office Visit [place] [facility] [address] [place] [address] Heidi March MD [address] [place] [address] Scheduled Orders Name Type Priority Associated Diagnoses Orde r Schedule ECG Adult ECG Routine Metastatic colon cancer to liver (CMS/HCC) 1 Occurrences starting 12/24/2024 until 12/24/2025 Scheduled Procedures Name Priority Associated Diagnoses Date/Ti [...] LAB COAGULATION METHOD 12/24/2024 9:59 AM EDT [facility] Blood Venous blood specimen / Unknown Venipuncture / Unknown 12/24/2024 9:22 AM EDT 12/24/2024 9:38 AM EDT Farhad Castillo MD LAB BLOOD ORDERABLES Final Result [facility] [address] [place] [address] * Prothrombin Time/INR (12/24/2024 9:22 AM EDT) Prothrombin Time 14.0 12.0 - 14.3 sec LAB COAGULATION METHOD 12/24/2024 9:59 AM EDT [facility] INR 1.1 0.9 - 1.1 LAB COAGULATION METHOD 12/24/2024 9:59 AM EDT [facility] Blood Venous blood specimen / Unknown Venipuncture / Unknown 12/24/2024 9:22 AM EDT 12/24/2024 9:38 AM EDT Narrative [facility] - 12/24/2024 9:59 AM EDT [...] of recurrent [place] INR 2.5 to 3.5 Farhad Castillo MD LAB BLOOD ORDERABLES Final Result [facility] [address] [place] [address] * Prealbumin, Plasma (12/24/2024 9:22 AM EDT) Prealbumin, Plasma 21.3 20.0 - 41.0 mg/dL 12/24/2024 10:24 AM EDT [facility] Blood Venous blood specimen / Unknown Venipuncture / Unknown 12/24/2024 9:22 AM EDT 12/24/2024 9:38 AM EDT Farhad Castillo MD LAB BLOOD ORDERABLES Final Result [facility] [address] [place] [address] * (ABNORMAL) Comprehensive Metabolic Panel, Plasma (12/24/2024 9:22 AM EDT) Glucose, Plasma 194(H) 74 - 99 mg/dL 12/24/2024 10:24 AM EDT [facility] BUN, Plasma 12 8 - 23 mg/dL 12/24/2024 10:24 AM EDT [facility] Creatinine, Plasma 0.89 0.70 - 1.20 mg/dL 12/24/2024 10:24 AM EDT [facility] BUN/Creatinine Ratio 13 12/24/2024 10:24 AM EDT [facility] Sodium, Plasma 139 136 - 145 mmol/L 12/24/2024 10:24 AM EDT [facility] Potassium, Plasma 4.8 3.6 - 4.9 mmol/L 12/24/2024 10:24 AM EDT [facility] Chloride, Plasma 104 97 - 107 mmol/L 12/24/2024 10:24 AM EDT [facility] CO2, Plasma 21(L) 22 - 29 mmol/L 12/24/2024 10:24 AM EDT [facility] Anion Gap 14 6 - 16 mmol/L 12/24/2024 10:24 AM EDT [facility] Total Calcium, Plasma 8.8(L) 8.9 - 10.2 mg/dL 12/24/2024 10:24 AM EDT [facility] Total Protein 6.7 6.3 - 7.9 g/dL 12/24/2024 10:24 AM EDT [facility] Albumin, Plasma 3.6 3.5 - 5.2 g/dL 12/24/2024 10:24 AM EDT [facility] AST, Plasma 27 10 - 50 U/L 12/24/2024 10:24 AM EDT [facility] ALT, Plasma 13 10 - 50 U/L 12/24/2024 10:24 AM EDT [facility] Alkaline Phosphatase, Plasma 78 40 - 115 U/L 12/24/2024 10:24 AM EDT [facility] Total Bilirubin, Plasma 0.4 0.2 - 1.1 mg/dL 12/24/2024 10:24 AM EDT [facility] eGFRcr 98.1 mL/min/1.7 3m*2 12/24/2024 10:24 AM EDT [facility] Comment:Reported eGFRcr in m L/min/1.73m2 is based the CKD-EPI 2020 equation that does not use a race coefficient. Blood Venous blood specimen / Unknown Venipuncture / Unknown 12/24/2024 9:22 AM EDT 12/24/2024 9:38 AM EDT Farhad Castillo MD LAB BLOOD ORDERABLES Final Result [facility] [address] [place] [address] * (ABNORMAL) CBC W/O Differential (12/24/2024 9:22 AM EDT) WBC Count 8.85 3.70 - 10.30 10*3/uL LAB HEMATOLOGY METHOD 12/24/2024 10:09 AM EDT [facility] RBC Count 4.28(L) 4.60 - 6.10 10*6/uL LAB HEMATOLOGY METHOD 12/24/2024 10:09 AM EDT [facility] HGB 12.8(L) 13.7 - 17.5 g/dL LAB HEMATOLOGY METHOD 12/24/2024 10:09 AM EDT [facility] HCT 39.4(L) 40.0 - 51.0 % LAB HEMATOLOGY METHOD 12/24/2024 10:09 AM EDT [facility] Platelet Count 279 155 - 369 10*3/uL LAB HEMATOLOGY METHOD 12/24/2024 10:09 AM EDT [facility] MCV 92 79 - 98 fL LAB HEMATOLOGY METHOD 12/24/2024 10:09 AM EDT [facility] MCH 29.9 26.0 - 32.0 pg LAB HEMATOLOGY METHOD 12/24/2024 10:09 AM EDT [facility] MCHC 32.5 30.7 - 35.5 g/dL LAB HEMATOLOGY METHOD 12/24/2024 10:09 AM EDT [facility] RDW 13.9 11.5 - 14.5 % LAB HEMATOLOGY METHOD 12/24/2024 10:09 AM EDT [facility] MPV 9.4 8.8 - 12.5 fL LAB HEMATOLOGY METHOD 12/24/2024 10:09 AM EDT [facility] nRBC 0.0 <=0.0 per 100 WBCs LAB HEMATOLOGY METHOD 12/24/2024 10:09 AM EDT [facility] Blood Venous blood specimen / Unknown Venipuncture / Unknown 12/24/2024 9:22 AM EDT 12/24/2024 9:46 AM EDT Farhad Castillo MD LAB BLOOD ORDERABLES Final Result [facility] [address] [place] [address] documented in this encounter Visit Diagnoses Diagnosis Metastatic colon cancer to liver (CMS/HCC)- Primary Hernia Metastatic colon cancer to liver (CMS/HCC)- Primary documented in this encounter Additional Health Concerns Active Problems Noted Date Diagnosed Date Autogenerated Problem 12/24/2024 Assessment Noted Time A fall risk assessment has been complete d for the patient 12/24/2024 8:48 AM EDT A Body Mass Index follow-up plan has been documented for the patient 12/25/2024 9:19 AM EDT documented as of this encounter Care Teams Nailhead Operator Relationship Specialty Start Date End Date Tayo Jones MD [address] [place] [address] PCP - General 07/14/24 documented as of this encounter
--- OUTSIDE RECORDS SUMMARY | 2024-12-24 10:45 | XMS_ITS | Encounter Summary ---
Author Organization [facility] Address [address] [place] [address] Care Team Providers Care Clinical Programmer Name Role Phone Tayo Jones MD Primary Care Provider [phone] Reason for Visit * Reason Comments Consult Encounter Details Date Type Department Care Team (Late st Contact Info) Description 12/24/2024 10:45 AM EDT Consult [facility] General Surgery [address] [place] [address] Heidi March MD [address] [place] [address] Personal history of nutritional deficiency [...] time in the past 12 m [facility], were you homeless or living in [...] from the original note were not included. [id number] Hernia Repair Surgery A hernia is a [...] herbs you take. Thisincludes both prescription and pupl-urj-bselkns medicines. Ask if you should stop taking [...] Shortly before surgery, an anesthesiologist or nurse electrical tryout person will talk with you. They'll explain the [...] injury Last Reviewed Date: 2023 00:00:00 ?? [id number] [employer]. All rights reserved. This information is not intended as a substitute for professional medical care. Always follow your healthcare professional's instructions. documented in this encounter Plan of Treatment Upcoming Encounters Date Type Department Care Team (Late st Contact Info) Description 01/06/2025 Hospital Encounter [facility] OPER[facility] [address] [place] [address] aFrhad Castillo MD [address] [facility] [address] [place] [address] 02/04/2025 10:15 AM EDT Office [facility] [address] [place] [address] Heidi March MD [address] [place] [address] Scheduled Procedures Name Priority Associated Diagnoses Date/Ti me HEPATECTOMY, PARTIAL Metastatic colon cancer to liver (CMS/HCC) REPAIR, HERNIA, EPIGASTRIC Metastatic colon cancer to liver (CMS/HCC) documented as of this encounter Goals Goal [...] Hemoglobin A1C 6.7 <5.7% Non-Diabet ic % [facility] Kit Lot Number [id number] [facility] Kit Expiration Date 10/12/26 [facility] Blood Venous blood specimen / Unknown 12/24/2024 10:39 AM EDT Heidi March MD POINT OF CARE TEST ENTER/KINGSLEY T ORDERABLES Final Result Performing Organization Address City/State/[facility] Co de Phone Number HEALTHCARE [facility] [address] [place] [address] documented in this encounter Visit Diagnoses Diagnosis Personal history of nutritional deficiency- Primary Incisional hernia, without obstruction or gangrene Metastatic colon cancer to liver (CMS/HCC) Metastatic colon cancer to liver (CMS/HCC)- Primary [...] documented as of this encounter Care Teams Clinical Programmer Relationship Specialty Start Date End Date Tayo Jones MD [address] [place] [address] PCP - General 07/14/24 documented as of this encounter
--- OUTSIDE RECORDS SUMMARY | 2024-12-29 13:49 | XMS_ITS | Clinical Summary ---
Author Organization [facility] Address [address] [place] [address] Care Team Providers Care Survey Research Manager Name Role Phone Jeremy Gil MD Unavailable [phone] Andres Alcantara DPM Unavailable Grant Fletcher MD Unavailable [phone] Niko Cueva MD Unavailable [phone] None, None Primary Care Provider UnavailGm Vigil DPM Unavailable [phone] Reina Byrd NP Unavailable Unavailable Allergies No known active allergies Medications Insulin Glargine (Lantus) 100 unit/mL (3 mL) Solostar INPNIndications :Type 2 diabetes mellitus with hyperglycemia, with long-term current use of insulin ([facility]) 16 Units by Subcutaneous route every 24 [...] - 1-dose 75+ series) 2039 Insurance MEDICAID [place] Advance Directives For more information, please contact: [phone] * Full Code (Latest Code Status on File) Date Activated Date Inactivated Comments 08/19/2020 3:05 AM No automated ch est compression devices for VAD Patients Care Teams Survey Research Manager Relationship Specialty Start Date End Date None, None [address] [place] [address] PCP - General 10/26/20 Jeremy Gil MD [address] [facility] Room [address] [place] [address] Internal Medicine 08/19/20 Andres Alcantara DPM [address] [facility]. [address] [place] [address] Resident Podiatry 08/22/20 Grant Fletcher MD [address] [place] [address]. [address] [place] [address] Infectious Diseases 09/08/20 Niko Cueva MD [facility] [address] [place] [address] Vascular Surgery 09/16/20 Gm Flor DPM [address] [place] [address] [place] [address] Podiatry 11/01/20 Reina Byrd NP [address] [place] [address] [place] [address] Nurse Practitioner Vascular Surgery 11/30/20
--- OUTSIDE RECORDS SUMMARY | 2024-12-29 13:49 | XMS_ITS | Encounter Summary ---
Author Organization [facility] Address [address] [place] [address] Care Team Providers Care Geophysics Professor Name Role Phone Tayo Jones MD Primary Care Provider [phone] Encounter Details Date Type Department Care Team (Late Contact Info) Description 01/24/2023 Orders Only External Location [address] [place] [phone] Sue Pope MD [address] [place] [address] [id number] Social History Tobacco Use Types Packs/Day Years [...] Department Care Team (Late Contact Info) Description 01/06/2025 Hospital Encounter [facility] [address] [place] [phone] Farhad Castillo MD [address] [address] 02/04/2025 10:15 AM EDT Office Visit [facility] [address], [address] [place] [phone] Heidi March MD [address] [place] [phone] Scheduled Procedures Name Priority Associated Diagnoses Date/Ti [...] on filedocumented in this encounter Care Teams Geophysics Professor Relationship Specialty Start Date End Date Tayo Jones MD [address] [phone] PCP - General 07/14/24 documented as of this encounter
--- OUTSIDE RECORDS SUMMARY | 2024-12-29 13:49 | XMS_ITS | Encounter Summary ---
Author Organization [facility] Address [address] [place] [address] Care Team Providers Care Aoc Plans Intelligence Officer Name Role Phone Tayo Jones MD Primary Care Provider [phone] Encounter Details Date Type Department Care Team (Late Contact Info) Description 06/15/2024 Orders Only External Location [address] [place] [address] Provider, External Social History Tobacco Use Types [...] Hospital Encounter [facility] [address] [place] [address] Farhad Castillo MD [address] [phone] 02/04/2025 10:15 AM EDT Office Visit [facility] [address], [address] [place] [phone] Heidi March MD [address] [place] [address] Scheduled Procedures Name Priority Associated Diagnoses Date/Ti [...] on filedocumented in this encounter Care Teams Aoc Plans Intelligence Officer Relationship Specialty Start Date End Date Tayo Jones MD [address] [place] [address] PCP - General 07/14/24 documented as of this encounter
--- OUTSIDE RECORDS SUMMARY | 2024-12-29 13:49 | XMS_ITS | Encounter Summary ---
Author Organization [facility] Address [address] [place] [address] Care Team Providers Care Displayer Merchandise Name Role Phone Tayo Jones MD Primary Care Provider [phone] Encounter Details Date Type Department Care Team (Late Contact Info) Description 01/15/2023 Orders Only External Location [address] [place] [phone] Sue Pope MD [address] [place] [phone] Social History Tobacco Use Types Packs/Day Years [...] Hospital Encounter [facility] [address] [place] [phone] Farhad Castillo MD [address] [address] 02/04/2025 10:15 AM EDT [facility] [address], [address] [place] [phone] Heidi March MD [address] [place] [phone] Scheduled Procedures Name Priority Associated Diagnoses Date/Ti [...] on filedocumented in this encounter Care Teams Displayer Merchandise Relationship Specialty Start Date End Date Tayo Jones MD [address] [phone] PCP - General 07/14/24 documented as of this encounter
--- OUTSIDE RECORDS SUMMARY | 2024-12-29 13:49 | XMS_ITS | Encounter Summary ---
Author Organization [facility] Address [address] [place] [address] Care Team Providers Care Party Plan Sales Unit Sales Leader Name Role Phone Tayo Jones MD Primary Care Provider [phone] Encounter Details Date Type Department Care Team (Late Contact Info) Description 01/15/2023 Orders Only External Location [address] [place] [address] Provider, External Social History Tobacco Use Types [...] Hospital Encounter [facility] [address] [place] [address] Farhad Castillo MD [address] [phone] 02/04/2025 10:15 AM EDT Office Visit [place] [facility] [address], [address] [place] [phone] Heidi March MD [address] [place] [address] Scheduled Procedures Name Priority Associated Diagnoses Date/Ti [...] on filedocumented in this encounter Care Teams Party Plan Sales Unit Sales Leader Relationship Specialty Start Date End Date Tayo Jones MD [address] [phone] PCP - General 07/14/24 documented as of this encounter
--- OUTSIDE RECORDS SUMMARY | 2024-12-29 13:49 | XMS_ITS | Encounter Summary ---
Author Organization [facility] Address [address] [place] [address] Care Team Providers Care Log Brander Name Role Phone Tayo Jones MD Primary Care Provider [phone] Encounter Details Date Type Department Care Team [...] time in the past 12 m [facility], were you homeless or living in a [...] 11/19/2024 10:49 AM EDT Karishmaritugiuseppe Andrewsayra Foote Patient Health Questionnaire-2 Score 0 11/19/2024 10:49 AM EDT Jr Amaro documented as of this encounter Plan of Treatment Upcoming Encounters Date Type Department Care Team (Late st Contact Info) Description 01/06/2025 Hospital Encounter [facility] [address] [place] [address] Farhad Castillo MD [address] [place] [address] 02/04/2025 10:15 AM EDT Office Visit [facility] General Surgery [address], [address] [place] [address] Heidi March MD [address] [place] [address] Scheduled Procedures Name Priority Associated Diagnoses Date/Ti me HEPATECTOMY, PARTIAL Metastatic colon cancer to liver (CMS/HCC) REPAIR, HERNIA, EPIGASTRIC Metastatic colon cancer to liver (CMS/HCC) documented as of this encounter Visit Diagnoses Not on filedocumented in this encounter Additional Health Concerns Assessment Noted Time A fall risk assessment has been complete d for the patient 07/23/2024 8:54 AM EDT A Body Mass Index follow-up plan has been documented for the patient 11/24/2024 5:29 PM EDT documented as of this encounter Care Teams Log Brander Relationship Specialty Start Date End Date Tayo Jones MD [address] [place] [address] PCP - General 07/14/24 documented as of this encounter
--- OUTSIDE RECORDS SUMMARY | 2024-12-29 13:49 | XMS_ITS | Encounter Summary ---
Author Organization [facility] Address [address] [id number] Care Team Providers Care Licensing Services Clerk Name Role Phone Tayo Jones MD Primary Care Provider [phone] Encounter Details Date Type Department Care Team ([facility] st Contact Info) Description 12/23/2024 Orders Only [facility] [address] [place] [address] Farhad Castillo MD [address] [phone] Social History Tobacco Use Types Packs/Day Years [...] Chio Mckeon documented as of this encounter Plan of Treatment Upcoming Encounters Date Type Department Care Team (Late st Contact Info) Description 01/06/2025 Hospital Encounter [facility] A OPERATING ROOM [address] [place] [address] Farhad Castillo MD [address] [place] [address] 02/04/2025 10:15 AM EDT Office Visit [facility] General Surgery [address], 1st [place] [address] Heidi March MD [address] [place] [address] Scheduled Procedures Name Priority Associated [...] documented as of this encounter Care Teams Licensing Services Clerk Relationship Specialty Start Date End Date Tayo Jones MD [address] [place] [address] PCP - General 07/14/24 documented as of this encounter
--- OUTSIDE RECORDS SUMMARY | 2024-12-29 13:49 | XMS_ITS | Encounter Summary ---
Author Organization [facility] Address [address] [place] [address] Care Team Providers Care Shank Carrier Name Role Phone Tayo Jones MD Primary Care Provider [phone] Encounter Details Date Type Department Care Team [...] Hospital Encounter [facility] A OPERATING ROOM [address] [place] [address] Farhad Castillo MD [address] [address] 02/04/2025 10:15 AM EDT Office Visit [facility] [address], 1st [place] [address] Heidi March MD [address] [place] [address] Scheduled Procedures Name Priority Associated Diagnoses Date/Ti [...] documented as of this encounter Care Teams Shank Carrier Relationship Specialty Start Date End Date Tayo Jones MD [address] [place] [address] PCP - General 07/14/24 documented as of this encounter
--- OUTSIDE RECORDS SUMMARY | 2024-12-29 13:49 | XMS_ITS | Encounter Summary ---
Author Organization [facility] Address [address] [place] [address] Care Team Providers Care Security Associate Name Role Phone Tayo Jones MD Primary Care Provider [phone] Encounter Details Date Type Department Care Team (Late Contact Info) Description 05/06/2024 Orders Only External Location [address] [place] [address] Provider, External Social History Tobacco Use Types [...] Hospital Encounter [facility] A OPERATING ROOM [address] [place] [address] Farhad Castillo MD [address] [phone] 02/04/2025 10:15 AM EDT Office Visit [place] [facility] [address], 1st [place] [address] Heidi March MD [address] [place] [address] Scheduled Procedures Name Priority Associated Diagnoses Date/Ti [...] filedocumented in this encounter Care Teams Security Associate Relationship Specialty Start Date End Date Tayo Jones MD [address] [id number] PCP - General 07/14/24 documented as of this encounter
--- OUTSIDE RECORDS SUMMARY | 2024-12-29 13:49 | XMS_ITS | Encounter Summary ---
Author Organization [facility] Address [address] [place] [address] Care Team Providers Care Rubber Insulator Name Role Phone Tayo Jones MD Primary Care Provider [phone] Encounter Details Date Type Department Care Team (Latest Contact Info) Description 12/24/2024 Travel Social History Tobacco Use Types Packs/Day [...] 01/06/2025 Hospital Encounter [facility] A OPERATING ROOM [address] [place] [address] Farhad Castillo MD [address] [place] [address] 02/04/2025 10:15 AM EDT Office Visit [facility] General Surgery [address], 1st [place] [address] Heidi March MD [address] [place] [address] Scheduled Procedures Name Priority Associated [...] documented as of this encounter Care Teams Rubber Insulator Relationship Specialty Start Date End Date Tayo Jones MD [address] [place] [address] PCP - General 07/14/24 documented as of this encounter
--- OUTSIDE RECORDS SUMMARY | 2024-12-29 13:49 | XMS_ITS | Encounter Summary ---
Author Organization [facility] Address [address] [place] [address] Care Team Providers Care Senior Product Integrity Engineer Name Role Phone Jeremy Gil MD Unavailable Andres Alcantara DPM Unavailable [phone] Grant Fletcher MD Unavailable Niko Cueva MD Unavailable None, None Primary Care Provider UnavailGm Vigil DPM Unavailable Reina Byrd NP Unavailable Unavailable Encounter Details Date Type Department Care Team (Late st Contact Info) Description 09/08/2020 Clinical Update [facility] Physicians - Infectious Diseases, [facility] [address] [place] [address] [phone] Grant Fletcher MD [address] [place] [address] [id number] Social History Tobacco Use Types Packs/Day Years [...] (09/07/2020) ALT 5 U/L Plasma Result [facility] Grant Fletcher MD CHEMISTRY ORDERABLES Final Re sult * ALKALINE PHOSPHATASE (09/07/2020) Alkaline Phosphatase 98 U/L Plasma Result [facility] Grant Fletcher MD CHEMISTRY ORDERABLES Final Re sult * ALBUMIN (09/07/2020) Albumin 2.6 Plasma Result [facility] Grant Fletcher MD CHEMISTRY ORDERABLES Final Re [...] filedocumented in this encounter Care Teams Senior Product Integrity Engineer Relationship Specialty Start Date End Date None, None [address] [place] [address] PCP - General 10/26/20 Jeremy Gil MD [address] [place] [address] Room [address] [place] [address] Internal Medicine 08/19/20 Andres Alcantara DPM [address] [facility] [place] [address] Resident Podiatry 08/22/20 Grant Fletcher MD [address] [facility] [address] [place] [address] Infectious Diseases 09/08/20 Niko Cueva MD [address] [facility] [address] [place] [address] Vascular Surgery 09/16/20 Gm Flor DPM [address] [facility] [place], [place] [id number] Podiatry 11/01/20 Reina Byrd NP [address] [place] [address] Nurse Practitioner Vascular Surgery 11/30/20 documented as of this encounter
--- OUTSIDE RECORDS SUMMARY | 2024-12-29 13:49 | XMS_ITS | Encounter Summary ---
Author Organization [facility] Address [address] [place] [address] Care Team Providers Care Hospital Account Liaison Name Role Phone Tayo Jones MD Primary Care Provider [phone] Encounter Details Date Type Department Care Team (Late Contact Info) Description 07/16/2024 Lab Requisition [facility] H [facility] [address] [place] [address] Farhad Castillo MD [address] [address] Other acute appendicitis without perforation [...] Hospital Encounter [facility] A OPERATING ROOM [address] [place] [phone] Farhad Castillo MD [address] [address] 02/04/2025 10:15 AM EDT Office Visit [place] [facility] [address], 1st [place] [address] Heidi March MD [address] [place] [address] Scheduled Procedures Name Priority Associated Diagnoses Date/Ti [...] EDT) Case Report Sugical Pathology Consult Case: [id number] Authorizing Provider: Farhad Castillo MD Collected: 07/16/20243 Ordering Location: [facility] Lab Received: 07/16/2024 1313 Pathologist: Constance Murphy MD Specimen: Colon, [id number] 07/17/2024 1:08 PM EDT [facility] Final Diagnosis RIGHT COLON AND TERMINAL ILEUM, RIGHT HEMICOLECTOMY ([id number]; 11/09/2022): - 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 - TUMOR BUDDING SCORE: HIGH (10 OR GREATER). - NO TUMOR SEEN IN TWENTY ONE LYMPH NODES (0/21). 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 07/17/2024 1:08 PM EDT [facility] Clinical Information K35.890 - Other acute appendicitis without perforation or gangrene [ICD-10-CM] 07/17/2024 1:08 PM EDT [facility] Gross Description A. [id number] Received along with a corresponding pathology report from [facility] are 29 slides labeled outside case: [id number] collected on 11/09/2022. 07/17/2024 1:08 PM EDT [facility] Note: A resident was involved in the service. I attest I examined the relevant preparations for the specimens and confirmed the diagnosis or interpretation. 07/17/2024 1:08 PM EDT [facility] Tissue Colon structure / Unknown 07/16/2024 1:13 PM EDT 07/16/2024 1:13 PM EDT Farhad Castillo MD LAB PATHOLOGY ORDERABLES F inal Result [facility] [address] [place] [address] documented in this encounter Visit Diagnoses Diagnosis Other acute appendicitis without perforation or gangrene documented in this encounter Care Teams Hospital Account Liaison Relationship Specialty Start Date End Date Tayo Jones MD [address] [phone] PCP - General 07/14/24 documented as of this encounter
--- OUTSIDE RECORDS SUMMARY | 2024-12-29 13:49 | XMS_ITS | Encounter Summary ---
Author Organization [facility] Address [address] [place] [address] Care Team Providers Care Np Name Role Phone Tayo Jones MD Primary Care Provider [phone] Encounter Details Date Type Department Care Team (Late Contact Info) Description 02/18/2023 Orders Only External Location [address] [place] [address] Provider, External Social History Tobacco Use Types [...] Hospital Encounter [facility] A OPERATING ROOM [address] [place] [address] Farhad Castillo MD [address] [phone] 02/04/2025 10:15 AM EDT Office Visit [place] [facility] Surgery [address], 1st [place] [address] Heidi March MD [address] [place] [address] Scheduled Procedures Name Priority Associated Diagnoses Date/Ti [...] on filedocumented in this encounter Care Teams Np Relationship Specialty Start Date End Date Tayo Jones MD [address] [place] [address] PCP - General 07/14/24 documented as of this encounter
--- OUTSIDE RECORDS SUMMARY | 2024-12-29 13:49 | XMS_ITS | Encounter Summary ---
Author Organization [facility] Address [address] [id number] Care Team Providers Care Flooring Helper Name Role Phone Tayo Jones MD Primary Care Provider [phone] Encounter Details Date Type Department Care Team ([facility] st Contact Info) Description 12/29/2024 Telephone [facility] [address] [place] [address] Farhad Castillo MD [address] [phone] Social History Tobacco Use Types Packs/Day Years [...] encounter Miscellaneous Notes * Telephone Encounter - Janie Plascencia RN - 12/29/2024 11:37 AM EDT Called and spoke with Jamee, let her know pt will be admitted after surgery for about 3 days. She verbalized understanding and had no further questions. * Telephone Encounter - Annalisa Pacheco - 12/29/2024 11:25 AM EDT Patient Phone Message Reason for Call: Jamee from [facility] calling about patients upcoming surgery on 01/06. Asking if he will be admitted and how long will his stay be. Best contact number and optimal time of day to reach caller: [phone] Ext 225 Note: Please do not reply to this message. Follow-up communication and further actions as a result of this message need to be communicated with the patient directly, if the patient is not active onMyChart. If the patient is active on MyChart, they will receive notification of the communication/outcome via [employer]. documented in this encounter Plan of Treatment Upcoming Encounters Date Type Department Care Team (Late st Contact Info) Description 01/06/2025 Hospital Encounter [facility] A OPERATING ROOM [address] [place] [address] Farhad Castillo MD [address] [address] 02/04/2025 10:15 AM EDT Office Visit [place] [facility] Surgery [address], 1st [place] [address] Heidi March MD [address] [place] [address] Scheduled Procedures Name Priority Associated Diagnoses Date/Ti [...] documented as of this encounter Care Teams Flooring Helper Relationship Specialty Start Date End Date Tayo Jones MD [address] [place] [address] PCP - General 07/14/24 documented as of this encounter
--- OUTSIDE RECORDS SUMMARY | 2024-12-29 13:49 | XMS_ITS | Encounter Summary ---
Author Organization [facility] Address [address] [place] [address] Care Team Providers Care Treating And Pumping Supervisor Name Role Phone Tayo Jones MD Primary Care Provider [phone] Encounter Details Date Type Department Care Team (Late Contact Info) Description 05/06/2024 Orders Only External Location [address] [place] [address] Provider, External Social History Tobacco Use Types [...] Hospital Encounter [facility] A OPERATING ROOM [address] [place] [address] Farhad Castillo MD [address] [phone] 02/04/2025 10:15 AM EDT Office [facility] [place] [facility] [address], 1st [place] [address] Heidi March MD [address] [place] [address] Scheduled Procedures Name Priority Associated Diagnoses Date/Ti [...] on filedocumented in this encounter Care Teams Treating And Pumping Supervisor Relationship Specialty Start Date End Date Tayo Jones MD [address] [phone] PCP - General 07/14/24 documented as of this encounter
--- OUTSIDE RECORDS SUMMARY | 2024-12-29 13:49 | XMS_ITS | Encounter Summary ---
Author Organization [facility] Address [address] [place] [address] Care Team Providers Care Commonwealth Attorney Name Role Phone Tayo Jones MD Primary Care Provider Encounter Details Date Type Department Care Team (Late Contact Info) Description 05/31/2023 Orders Only External Location [address] [place] [address] Provider, External Social History Tobacco Use Types [...] Hospital Encounter [facility] A OPERATING ROOM [address] [place] [address] Farhad Castillo MD [address] [phone] 02/04/2025 10:15 AM EDT Office Visit [place] [facility] General Surgery [address], 1st [place] [address] Heidi March MD [address] [place] [address] Scheduled Procedures Name Priority Associated Diagnoses Date/Ti [...] on filedocumented in this encounter Care Teams Commonwealth Attorney Relationship Specialty Start Date End Date Tayo Jones MD [address] [phone] PCP - General 07/14/24 documented as of this encounter
--- OUTSIDE RECORDS SUMMARY | 2024-12-29 13:50 | XMS_ITS ---
Author Organization [facility] Address [address] [place] [address] Care Team Providers Care Nozzle Tender Name Role Phone Tayo Jones MD Primary Care Provider [phone] Active Problems Problem Noted Date Diagnosed Date Incisional hernia, without obstruction or gangre ne 12/24/2024 Bowel obstruction 10/08/2024 Obesity (BMI 35.0-39.9 without [...]
--- OUTSIDE RECORDS SUMMARY | 2024-12-29 13:50 | XMS_ITS | Clinical Summary ---
Author Organization [facility] Address [address] [place] [address] Care Team Providers Care Signal Tower Director Name Role Phone Tayo Jones MD Primary Care Provider [phone] Allergies No known active allergies Medications carvedilol (Coreg) 12.5 MG tablet Take by mouth in the morning and in the evening. Take with meals. 07/30/19 24 Active ferrous sulfate 325 (65 Fe) MG EC tablet 08/12/19 24 Active insulin lispro (Admelog, HumaLOG) 100 UNIT/ML injection pen Inject 10 Units under the skin 3 (three) times a day with meals. 08/01/19 24 Active Lantus SoloStar 100 UNIT/ML injection pen Inject 35 Units under the skin nightly. 05/29/19 25 Active ondansetron (Zofran) 4 MG tablet 04/19/19 25 Active spironolactone (Aldactone) 25 MG tablet Take 1 tablet by mouth daily. 07/12/19 25 Active capecitabine (Xeloda) 500 MG chemo tablet [...] hours as needed for pain. 50 tablet 08/01/19 25 Active Additional Information Patient not taking.Reported on 12/24/2024 lisinopril 20 MG tablet 10/27/19 25 Active magnesium oxide (Mag-Ox) 400 MG tablet 11/08/19 25 Active potassium chloride CR (Klor-Con M20) 20 MEQ ER tablet 11/10/19 25 Active sodium bicarbonate 650 MG tablet 11/10/19 25 Active loperamide (Imodium A-D) 2 MG tablet 04/19/19 25 Active Nutritional Supplements (Impact Advanced Recovery) liquid Drink 1 178ml carton 2 per day X 5 days before surgery 2500 mL 12/25/19 25 Active mupirocin (Bactroban) 2 % ointment Apply topically 2 times a day. 1 g 12/25/19 25 Active doxycycline (Vibramycin) 100 MG capsule 11/12/19 25 025 Discontinued mupirocin (Bactroban) 2 % ointment 11/25/19 25 025 Discontinued Active Problems Problem Noted Date Diagnosed Date Incisional hernia, without obstruction or gangre ne 12/24/2024 Bowel obstruction 10/08/2024 Obesity (BMI 35.0-39.9 without comorbidity) 07/14 Metastatic colon cancer to liver 07/23/2024 Encounters Date Type Department Care Team Description 12/29/2024 Telephone [facility] [address] [place] [phone] Farhad Castillo MD 12/24/2024 10:45 AM EDT Consult [facility] General Surgery [address] [place] [address] Heidi March MD Personal history of nutritional deficiency (Primary Dx); Incisional hernia, without obstruction or gangrene; Metastatic colon cancer to liver (CMS/HCC) 12/24/2024 9:15 AM EDT Office Visit [facility] [address] [place] [phone] Farhad Castillo MD Metastatic colon cancer to liver (CMS/HCC) (Primary Dx); Hernia 12/24/2024 Travel 12/23/2024 Orders Only [facility] [address] [place] [phone] Farhad Castillo MD 12/17/2024 11:27 AM EDT - 12/17/2024 11:59 PM EDT Hospital Encounter [facility] [address] [place] [address] Metastatic colon cancer to liver (CMS/HCC) Discharge Disposition: Home or Self Care 12/17/2024 8:07 AM EDT - 12/17/2024 11:26 AM EDT Hospital Encounter Cardiac Imaging [address] [place] [address] Discharge Disposition: Home or Self Care 12/17/2024 8:00 AM EDT - 12/17/2024 8:06 AM EDT Hospital Encounter Cardiac Imaging [address] [place] [phone] High risk surgery, pre-operative cardiovascular examination; Shortness of breath on exertion Discharge Disposition: Home or Self Care 12/17/2024 Travel 11/19/2024 11:15 AM EDT Office Visit [facility] Multidisciplinary Oncology Clinic [address] [place] [phone] Farhad Castillo MD Metastatic colon cancer to liver (CMS/HCC) (Primary Dx); High risk surgery, pre-operative cardiovascular examination; Shortness of breath on exertion 11/19/2024 7:09 AM EDT - 11/19/2024 11:59 PM EDT Hospital Encounter [facility] [address] [place] [address] Metastatic colon cancer to liver (CMS/HCC) Discharge Disposition: Home or Self Care 11/19/2024 Travel 10/09/2024 Travel 10/08/2024 12:10 AM EDT - 10/09/2024 3:38 PM EDT Hospital Encounter [facility] Emergency Department [address] [place] [phone] Mickie Jefferson MD Hourigan, Jon S, MD Small bowel obstruction (CMS/HCC) (Primary Dx); Abdominal pain, generalized Discharge Disposition: Care Home Facility 10/08/2024 Travel 10/07/2024 Orders Only External Location [address] [place] [phone] Provider, External from Last 3 Months Family [...] any time in the past 12 m [facility], were you homeless or [...] Mass Index 37.25 12/24/2024 10:17 AM EDT Plan of Treatment Upcoming Encounters Date Type Department Care Team (Late st Contact Info) Description 01/06/2025 Hospital Encounter [facility] A OPERATING ROOM [address] [place] [address] Farhad Castillo MD [address] [address] 02/04/2025 10:15 AM EDT [facility] General Surgery [address], [address] [place] [address] Heidi March MD [address] [place] [address] Scheduled Procedures Name Priority Associated Diagnoses Date/Ti me HEPATECTOMY, PARTIAL Metastatic colon cancer to liver (CMS/HCC) REPAIR, HERNIA, EPIGASTRIC Metastatic colon cancer to liver (CMS/HCC) Health Maintenance Due Date Last Done Comments [facility]-/Child/Adol SDOH Screenings 1965 Diabetes: Dental Exam 1974 [facility]-DTaP,Tdap,and Td Vaccines (1 - Tdap) 1983 [facility]-Hepatitis A Vaccines (1 of 2 - Risk 2-dose series) 1983 [facility]-Zoster Vaccines (1 of 2) 1983 [facility]-RSV Vaccine: 60+ Years or (1 - Risk 60-74 years 1-dose series) 2024 [id number] Vaccine ( - 2024- season) 2024 01/15/2022, 03/28/2021, 07/27/2020, Additional history exists [facility]-Influenza Vaccine (#1) 2024 [facility]- SDOH Screenings 04/10/2025 [facility]-Adult SDOH Screenings 04/10/2025 10/09/2024 [facility]-Diabetes: Hemoglobin A1C 06/23/2025 12/24/2024, 11/19/2024, 10/08/2024, Additional history exists [facility]-Depression Screening 12/24/2025 12/24/2024 [facility]-Pneumococcal Vaccine: 50+ Years Completed 05/27/2024, 09/12/2020 [facility]-HIV Screening Completed 10/08/2024 [facility]-Hepatitis C Screening Completed 10/08/2024 [facility]-Obesity Intervention Completed 025, 11/19/2024, 10/07/2024, Additional history exists HPV Vaccines Aged Out No longer eligi [...] on patient's age to complete this topic Goals Goal Patient Goal Type Associated Problems Recent Progress Patient-Stated? Author Autogenera inessa Goal Care Plan Autogenerated Problem No Pandalai, Farhad K, MD Medical Devices Implanted Type Area Plastics Heat Welder Device Identifier Shelf Expiration Date Model / Serial / Lot Port Clearvue Power 8fr - S. - [id number] Implanted:Qty : 1 on 07/31/2024 by Farhad Castillo MD at [facility] Other Medication Pump Left: Chest [id number] 07/13/2025 [id number] / . / [id number] Procedures Procedure Name Priority Date/Time Associated Diagnosis Comments POCT GLYCOSYLATED HEMOGLOBIN (HGB A1C) Routine 12/24/2024 10:39 AM EDT Personal history of nutritional deficiency APTT Routine 12/24/2024 9:22 AM EDT Metastatic colon cancer to liver (CMS/HCC) PROTHROMBIN TIME(PT) / INR Routine 12/24/2024 9:22 AM EDT Metastatic colon cancer to liver (CMS/HCC) PREALBUMIN, PLASMA Routine 12/24/2024 9: 22 AM EDT Metastatic colon cancer to liver (CMS/HCC) COMPREHENSIVE METABOLIC PANEL, PLASMA Routine 12/24/2024 9:22 AM EDT Metastatic colon cancer to liver (CMS/HCC) CBC W/O DIFFERENTIAL Routine 12/24/2024 9:22 AM EDT Metastatic colon cancer to liver (CMS/HCC) MR ABDOMEN W AND WO IV CONTRAST [...] EDT from Last 3 Months Results * POCT Glycosylated Hemoglobin (Hgb A1C) (12/24/2024 10:39 AM EDT) [facility] POCT Hemoglobin A1C 6.7 <5.7% Non-Diabet ic % [employer] [facility] Kit Lot Number [id number] [facility] [employer] LAB Kit Expiration Date 10/12/26 [employer] [facility] Blood Venous blood specimen / Unknown 12/24/2024 10:39 AM EDT us Heidi March MD POINT OF CARE TEST ENTER/KINGSLEY T ORDERABLES Final Result Performing Organization Address City/[facility]/ZIP Co de Phone Number [facility] [address] [place] [address] * APTT (12/24/2024 9:22 AM EDT) [facility] aPTT 25 25 - 35 sec LAB COAGULATION METHOD 12/24/2024 9:59 AM EDT [facility] Blood Venous blood specimen / Unknown Venipuncture / Unknown 12/24/2024 9:22 AM EDT 12/24/2024 9:38 AM EDT us Farhad Castillo MD LAB BLOOD ORDERABLES Final Result [facility] [address] [place] [address] * Prothrombin Time/INR (12/24/2024 9:22 AM EDT) Only the most recent of2 resultswithin the time period is included. [facility] Prothrombin Time 14.0 12.0 - 14.3 sec LAB COAGULATION METHOD 12/24/2024 9:59 AM EDT [facility] INR 1.1 0.9 - 1.1 LAB COAGULATION METHOD 12/24/2024 9:59 AM EDT [facility] Blood Venous blood specimen / Unknown Venipuncture / Unknown 12/24/2024 9:22 AM EDT 12/24/2024 9:38 AM EDT Narrative [facility] - 12/24/2024 9:59 AM EDT OPTIMAL INR RANGES FOR PATIENT ON ORAL ANTICOAGULANT THERAPY Prevention of venous thromboembolism INR 2.0 to 3.0 In patients with heart disease: Atrial fibrillation INR 2.0 to 3.0 Valvular heart disease INR 2.0 to 3.0 Tissue heart valves INR 2.0 to 3.0 Mechanical prosthetic valves INR 2.5 to 3.5 Prevention of recurrent NM INR 2.5 to 3.5 Farhad Castillo MD LAB BLOOD ORDERABLES Final Result [facility] [address] [place] [address] * (ABNORMAL) CBC W/O Differential (12/24/2024 9:22 AM EDT) Only the most recent of4 resultswithin the time period is included. [facility] WBC Count 8.85 3.70 - 10.30 10*3/uL LAB HEMATOLOGY METHOD 12/24/2024 10:09 AM EDT [facility] RBC Count 4.28(L) 4.60 - 6.10 10*6/uL LAB HEMATOLOGY METHOD 12/24/2024 10:09 AM EDT [facility] HGB 12.8(L) 13.7 - 17.5 g/dL LAB HEMATOLOGY METHOD 12/24/2024 10:09 AM EDT [facility] HCT 39.4(L) 40.0 - 51.0 % LAB HEMATOLOGY METHOD 12/24/2024 10:09 AM EDT [facility] Platelet Count 279 155 - 369 10*3/uL LAB HEMATOLOGY METHOD 12/24/2024 10:09 AM EDT [facility] MCV 92 79 - 98 fL LAB HEMATOLOGY METHOD 12/24/2024 10:09 AM EDT [facility] MCH 29.9 26.0 - 32.0 pg LAB HEMATOLOGY METHOD 12/24/2024 10:09 AM EDT [facility] MCHC 32.5 30.7 - 35.5 g/dL LAB HEMATOLOGY METHOD 12/24/2024 10:09 AM EDT [facility] RDW 13.9 11.5 - 14.5 % LAB HEMATOLOGY METHOD 12/24/2024 10:09 AM EDT [facility] MPV 9.4 8.8 - 12.5 fL LAB HEMATOLOGY METHOD 12/24/2024 10:09 AM EDT [facility] nRBC 0.0 <=0.0 per 100 WBCs LAB HEMATOLOGY METHOD 12/24/2024 10:09 AM EDT [facility] Blood Venous blood specimen / Unknown Venipuncture / Unknown 12/24/2024 9:22 AM EDT 12/24/2024 9:46 AM EDT us Farhad Castillo MD LAB BLOOD ORDERABLES Final Result [facility] [address] [place] [address] * Prealbumin, Plasma (12/24/2024 9:22 AM EDT) Only the most recent of2 resultswithin the time period is included. Prealbumin, Plasma 21.3 20.0 - 41.0 mg/dL 12/24/2024 10:24 AM EDT [facility] Blood Venous blood specimen / Unknown Venipuncture / Unknown 12/24/2024 9:22 AM EDT 12/24/2024 9:38 AM EDT us Farhad Castillo MD LAB BLOOD ORDERABLES Final Result [facility] [address] [place] [address] * (ABNORMAL) Comprehensive Metabolic Panel, Plasma (12/24/2024 9:22 AM EDT) Only the most recent of3 resultswithin the time period is included. Glucose, Plasma 194(H) 74 - 99 mg/dL 12/24/2024 10:24 AM EDT [facility] BUN, Plasma 12 8 - 23 mg/dL 12/24/2024 10:24 AM EDT [facility] Creatinine, Plasma 0.89 0.70 - 1.20 mg/dL 12/24/2024 10:24 AM EDT [facility] BUN/Creatinine Ratio 13 12/24/2024 10:24 AM EDT [facility] Sodium, Plasma 139 136 - 145 mmol/L 12/24/2024 10:24 AM EDT [facility] Potassium, Plasma 4.8 3.6 - 4.9 mmol/L 12/24/2024 10:24 AM EDT [facility] Chloride, Plasma 104 97 - 107 mmol/L 12/24/2024 10:24 AM EDT [facility] CO2, Plasma 21(L) 22 - 29 mmol/L 12/24/2024 10:24 AM EDT [facility] Anion Gap 14 6 - 16 mmol/L 12/24/2024 10:24 AM EDT [facility] Total Calcium, Plasma 8.8(L) 8.9 - 10.2 mg/dL 12/24/2024 10:24 AM EDT [facility] Total Protein 6.7 6.3 - 7.9 g/dL 12/24/2024 10:24 AM EDT [facility] Albumin, Plasma 3.6 3.5 - 5.2 g/dL 12/24/2024 10:24 AM EDT [facility] AST, Plasma 27 10 - 50 U/L 12/24/2024 10:24 AM EDT [facility] ALT, Plasma 13 10 - 50 U/L 12/24/2024 10:24 AM EDT [facility] Alkaline Phosphatase, Plasma 78 40 - 115 U/L 12/24/2024 10:24 AM EDT [facility] Total Bilirubin, Plasma 0.4 0.2 - 1.1 mg/dL 12/24/2024 10:24 AM EDT [facility] eGFRcr 98.1 mL/min/1.7 3m*2 12/24/2024 10:24 AM EDT [facility] Comment:Reported eGFRcr in m L/min/1.73m2 is based the CKD-EPI 2020 equation that does not use a race coefficient. Blood Venous blood specimen / Unknown Venipuncture / Unknown 12/24/2024 9:22 AM EDT 12/24/2024 9:38 AM EDT us Farhad Castillo MD LAB BLOOD ORDERABLES Final Result [facility] [address] [place] [address] * MR Abdomen w and wo IV [...] using the following sequences: coronal single shot [id number] fast spin echo, axial T2 weighted sequences [...] performed under direct supervision of the reading assistant womens volleyball coach. Study Impression There is no significant patient [...] CV STRESS PROCEDURES Final Result * (ABNORMAL) Hemoglobin A1c (11/19/2024 11:26 AM EDT) Only the most recent of2 resultswithin the time period is included. Hemoglobin A1c 7.3(H) <5.7 % 11/19/2024 12:49 PM EDT [facility] Blood Venous blood specimen / Unknown Venipuncture / Unknown 11/19/2024 11:26 AM EDT 11/19/2024 11:47 AM EDT Narrative [facility] - 11/19/2024 12:49 PM EDT HA1C Interpretive Data: Diagnosis of Diabetes: Diabetic > or = 6.5% Pre-diabetic 5.7 to 6.4% Non-diabetic < or = 5.6% Glycemic Targets for Type I and Type II Diabetics: Non- Adults <7.0% Adults <6.0% Children and Adolescents <7.5% Source: [place] [employer]. Standards of medical care in diabetes,2017. Diabetes Care.2017:40 (suppl 1):S1-S135. us Farhad Castillo MD LAB BLOOD ORDERABLES Final Result [facility] [address] [place] [address] * (ABNORMAL) CEA, Serum (11/19/2024 11:26 AM EDT) CEA, Serum 7.7(H) <4.0 ng/mL 11/19/2024 12:31 PM EDT [facility] Blood Venous blood specimen / Unknown Venipuncture / Unknown 11/19/2024 11:26 AM EDT 11/19/2024 11:47 AM EDT Narrative [facility] - 11/19/2024 12:31 PM EDT Normal range for smokers: < 5.5 ng/ml Normal range for non-smokers: <=4.0 ng/ml Performed by [employer] electrochemiluminescent immunoassay. Results obtained with different test methods or kits cannot be used interchangeably. us Farhad Castillo MD LAB BLOOD ORDERABLES Final Result [facility] [address] [place] [address] * CT Abdomen Pelvis w IV Contrast [...] Total DLP (Dose-Length Product): 3353.28 mGy.cm (accession [id number]), 3353.28 mGy.cm (accession [id number]) Please note: The reported value represents the [...] Total DLP (Dose-Length Product): 3353.28 mGy.cm (accession [id number]),3353.28 mGy.cm (accession [id number]) Please note: The reported valuerepresents the total [...] cm. . Other previously noted lesion within [id number] remains difficult to clearly delineate. Unremarkable gallbladder.Stable [...] Per this written report. Drafted by Da Trevnio MD on 11/19/2024 9:35 AM Final report [...] Total DLP (Dose-Length Product): 3353.28 mGy.cm (accession [id number]), 3353.28 mGy.cm (accession [id number]) Please note: The reported value represents the [...] Total DLP (Dose-Length Product): 3353.28 mGy.cm (accession [id number]),3353.28 mGy.cm (accession [id number]) Please note: The reported valuerepresents the total [...] cm. . Other previously noted lesion within [id number]/8 remains difficult to clearly delineate. Unremarkable gallbladder.Stable [...] aD Trevino MD on 11/19/2024 10:42 AM us [...] Comment 10/09/2024 12:12 PM EDT [facility] Service Developer ID Julia Wisdom [id number] 12:12 PM EDT [facility] Device ID [id number] 10/09/2024 12:12 PM EDT [facility] Specimen Type POC Capillary 10/09/2024 12:12 PM EDT [facility] Blood Capillary blood specimen / Unknown 10/09/2024 12:08 PM EDT 10/09/2024 12:12 PM EDT us Jj Carson MD LAB POINT OF CARE TE ST DOCKED DEVICE UNSOLICITED RESULTS Final Result [facility] [address] [place] [address] * XR Abdomen 1 View (10/09/2024 9:41 [...] - 99 mg/dL 10/09/2024 5:48 AM EDT [facility] BUN, Plasma 36(H) 8 - 23 mg/dL 10/09/2024 5:48 AM EDT [facility] Creatinine, Plasma 1.45(H) 0.70 - 1.20 mg/dL 10/09/2024 5:48 AM EDT [facility] BUN/Creatinine Ratio 25 10/09/2024 5:48 AM EDT [facility] Sodium, Plasma 131(L) 136 - 145 mmol/L 10/09/2024 5:48 AM EDT [facility] Potassium, Plasma 3.4(L) 3.6 - 4.9 mmol/L 10/09/2024 5:48 AM EDT [facility] Comment:Hemolyzed, result ma y be falsely increased. Chloride, Plasma 99 97 - 107 mmol/L 10/09/2024 5:48 AM EDT [facility] CO2, Plasma 17(L) 22 - 29 mmol/L 10/09/2024 5:48 AM EDT [facility] Anion Gap 15 6 - 16 mmol/L 10/09/2024 5:48 AM EDT [facility] Total Calcium, Plasma 8.8(L) 8.9 - 10.2 mg/dL 10/09/2024 5:48 AM EDT [facility] eGFRcr 55.2 mL/min/1.7 3m*2 10/09/2024 5:48 AM EDT [facility] Comment:Reported eGFRcr in m L/min/1.73m2 is based the CKD-EPI 2020 equation that does not use a race coefficient. Blood Venous blood specimen / Unknown Venipuncture / Unknown 10/09/2024 4:28 AM EDT 10/09/2024 5:03 AM EDT us Eva Foote Automated Weaver CANDIDA, EBONIE LAB BLOOD ORDERABLE S Final Result [facility] [address] [place] [address] * XR Gastrograffin Challenge (10/09/2024 1:17 AM [...] - 4.5 mg/dL 10/08/2024 6:00 AM EDT [facility] Blood Venous blood specimen / Unknown Venipuncture / Unknown 10/08/2024 4:59 AM EDT 10/08/2024 5:16 AM EDT us Jj Carson MD LAB BLOOD ORDERABLES Final Res ult [facility] [address] [place] [address] * (ABNORMAL) Magnesium, Plasma (10/08/2024 4:59 AM EDT) Only the most recent of2 resultswithin the time period is included. Magnesium, Plasma 1.7(L) 1.9 - 2.4 mg/dL 10/08/2024 6:00 AM EDT [facility] Blood Venous blood specimen / Unknown Venipuncture / Unknown 10/08/2024 4:59 AM EDT 10/08/2024 5:16 AM EDT us Jj Carson MD LAB BLOOD ORDERABLES Final Res ult [facility] [address] [place] [address] * EKG now - STAT (adult) (10/08/2024 12:55 AM EDT) EKG DIAGNOSIS CLASS Abnormal MUSE ECG Ventricular Rate 85 BPM MUSE ECG Atrial Rate 85 BPM MUSE ECG NM Interval 168 ms MUSE ECG QRSD Interval 162 ms MUSE ECG QT Interval 442 ms MUSE ECG QTC Interval 525 ms MUSE ECG P [place] 16 degrees MUSE ECG R [place] -32 degrees MUSE ECG T Wave [place] 47 degrees MUSE ECG Diagnosis Normal sinus rhythm MUSE ECG Diagnosis Left axis deviation in the presence of LAFB MUSE ECG Diagnosis Right bundle branch block Bifascicular block MUSE ECG Diagnosis Minimal voltage criteria for LVH, may be normal variant ( R in aVL ) MUSE ECG Diagnosis Abnormal ECG MUSE ECG Diagnosis MUSE ECG Diagnosis Confirmed by Adarsh Pichardo ([id number]) on 10/08/2024 10:50:58 AM MUSE ECG 10/08/2024 12:5 5 AM EDT 10/08/2024 10:50 AM EDT Mickie Jefferson MD ECG ORDERABLES Final Result MUSE ECG * ED HIV 1/2 Antibody/Antigen Screen w/Reflex to HIV 1/2 Differentiation (10/08/2024 12:55 AM EDT) HIV 1 & 2 Antibody/Antigen Screen Non Reactive Non Reactive 10/08/2024 2:00 AM EDT [facility] Comment:Screening for HIV 1 & 2 antibodies, and P24 antigen is NONREACTIVE. No confirmatory testing is required. Blood Venous blood specimen / Unknown Venipuncture / Unknown 10/08/2024 12:55 AM EDT 10/08/2024 1:11 AM EDT Mickie Jefferson MD LAB BLOOD ORDERABLES Final Re sult Performing Organization Address [facility]/ZIP Co de Phone Number [facility] [address] [place] [address] * Lactic acid, venous (10/08/2024 12:55 AM EDT) [facility] Lactate, Venous, Whole Blood 1.1 0.5 - 2.2 mmol/L LAB HEMATOLOGY METHOD 10/08/2024 1:10 AM EDT [facility] Blood Venous blood specimen / Unknown Venipuncture / Unknown 10/08/2024 12:55 AM EDT 10/08/2024 1:07 AM EDT us Mickie Jefferson MD LAB BLOOD ORDERABLES Final Re sult Performing Organization Address [facility] Co de Phone Number [facility] [address] [place] [address] * Hepatitis C Antibody - ED (10/08/2024 12:55 AM EDT) [facility] Hepatitis C Antibody Negative Negative 10/08/2024 2:16 AM EDT [facility] Blood Venous blood specimen / Unknown Venipuncture / Unknown 10/08/2024 12:55 AM EDT 10/08/2024 1:11 AM EDT us Mickei Jefferson MD LAB BLOOD ORDERABLES Final Re sult Performing Organization Address [facility]/ZIP Co de Phone Number [facility] [address] [place] [address] * (ABNORMAL) CBC w/diff (10/08/2024 12:55 AM EDT) [facility] WBC Count 11.32(H) 3.70 - 10.30 10*3/uL LAB HEMATOLOGY METHOD 10/08/2024 1:09 AM EDT [facility] RBC Count 4.20(L) 4.60 - 6.10 10*6/uL LAB HEMATOLOGY METHOD 10/08/2024 1:09 AM EDT [facility] HGB 13.9 13.7 - 17.5 g/dL LAB HEMATOLOGY METHOD 10/08/2024 1:09 AM EDT [facility] HCT 38.0(L) 40.0 - 51.0 % LAB HEMATOLOGY METHOD 10/08/2024 1:09 AM EDT [facility] Platelet Count 293 155 - 369 10*3/uL LAB HEMATOLOGY METHOD 10/08/2024 1:09 AM EDT [facility] MCV 91 79 - 98 fL LAB HEMATOLOGY METHOD 10/08/2024 1:09 AM EDT [facility] MCH 33.1(H) 26.0 - 32.0 pg LAB HEMATOLOGY METHOD 10/08/2024 1:09 AM EDT [facility] MCHC 36.6(H) 30.7 - 35.5 g/dL LAB HEMATOLOGY METHOD 10/08/2024 1:09 AM EDT [facility] RDW 13.5 11.5 - 14.5 % LAB HEMATOLOGY METHOD 10/08/2024 1:09 AM EDT [facility] MPV 10.0 8.8 - 12.5 fL LAB HEMATOLOGY METHOD 10/08/2024 1:09 AM EDT [facility] nRBC 0.0 <=0.0 per 100 WBCs LAB HEMATOLOGY METHOD 10/08/2024 1:09 AM EDT [facility] Differential Type Automated LAB HEMATOLOGY METHOD 10/08/2024 1:09 AM EDT [facility] Neutrophils % 70 % LAB HEMATOLOGY METHOD 10/08/2024 1:09 AM EDT [facility] Lymphocytes % 10 % LAB HEMATOLOGY METHOD 10/08/2024 1:09 AM EDT [facility] Monocytes % 18 % LAB HEMATOLOGY METHOD 10/08/2024 1:09 AM EDT [facility] Eosinophils % 0 % LAB HEMATOLOGY METHOD 10/08/2024 1:09 AM EDT [facility] Basophils % 1 % LAB HEMATOLOGY METHOD 10/08/2024 1:09 AM EDT [facility] Immature Granulocytes % 1 % LAB HEMATOLOGY METHOD 10/08/2024 1:09 AM EDT [facility] Neutrophils Absolute 7.97(H) 1.60 - 6.10 10*3/uL LAB HEMATOLOGY METHOD 10/08/2024 1:09 AM EDT [facility] Lymphocytes Absolute 1.17(L) 1.20 - 3.90 10*3/uL LAB HEMATOLOGY METHOD 10/08/2024 1:09 AM EDT [facility] Monocytes Absolute 2.01(H) 0.30 - 0.90 10*3/uL LAB HEMATOLOGY METHOD 10/08/2024 1:09 AM EDT [facility] Eosinophils Absolute 0.02 0.00 - 0.50 10*3/uL LAB HEMATOLOGY METHOD 10/08/2024 1:09 AM EDT [facility] Basophils Absolute 0.07 0.00 - 0.10 10*3/uL LAB HEMATOLOGY METHOD 10/08/2024 1:09 AM EDT [facility] Immature Granulocytes Absolute 0.08(H) 0.00 - 0.06 10*3/uL LAB HEMATOLOGY METHOD 10/08/2024 1:09 AM EDT [facility] Blood Venous blood specimen / Unknown Venipuncture / Unknown 10/08/2024 12:55 AM EDT 10/08/2024 1:05 AM EDT Narrative [facility] - 10/08/2024 1:09 AM EDT Therapeutic decision making should be based on absolute values, rather than percentages. us Mickie Jefferson MD LAB BLOOD ORDERABLES Final Re sult Performing Organization Address City/[facility]/ZIP Co de Phone Number [facility] [address] [place] [address] * Type and screen (10/08/2024 12:55 AM [...] ORDERABLE S Final Result Performing Organization Address City/[facility]/ZIP Co de Phone Number BLOOD B[facility] [address] [place] [id number], * CT OUTSIDE IMAGES (10/07/2024 7:58 PM EDT) Anatomical Region Laterality Modality Computed Tomogra phy 10/07/2024 7:58 PM EDT us External Provider IMG CT PROCEDURES Final Result from Last 3 Months Additional Health Concerns Active Problems Noted Date Diagnosed Date Autogenerated Problem 12/24/2024 Insurance MEDICA[place] Advance Directives * Full Code (Latest Code Status on File) Date Activated Date Inactivated Comments 10/08/2024 4:28 AM 10/09/2024 5:43 PM Question Answer Comments I have reviewed the capacity from the link above and, if needed, have updated to appropriate status: Yes Care Teams Signal Tower Director Relationship Specialty Start Date End Date Tayo Jones MD [address] [place] [address] PCP - General 07/14/24
[2024-12-29 14:02] LABS: Hematocrit 38.1 % (42.0-52.0); Hemoglobin 12.5 g/dL (14.1-18.0); Immature Granulocytes % 0.3 %; Mean Corpuscular HGB Conc 32.8 g/dL (31.8-35.4); Mean Corpuscular Hemoglobin 30.3 pg (27.0-31.2); Mean Corpuscular Volume 92.3 fl (80-94); Nucleated Red Blood Cells % 0 %; Platelet Count 294 K/mm3 (142-424); Red Blood Count 4.13 M/mm3 (4.60-6.20); Red Cell Distribution Width-SD 46.2 fL; White Blood Count 9.9 K/mm3 (4.8-10.8)
[2024-12-29 14:12] LABS: Albumin Level 4.0 g/dl (3.5-5.0); Chloride 105 mmol/L (98-107); Potassium 4.7 mmoL/L (3.5-5.1); Sodium 137 mmol/L (136-145)
[2024-12-29 14:14] LABS: Blood Urea Nitrogen 21 mg/dl (9-20); Creatinine,Serum 1.00 mg/dl (0.66-1.25); Estimated Glomerular Filt Rate 76 ml/min (>60); GFR (African American) 92 ML/MIN (>60)
[2024-12-29 14:15] LABS: Alanine Aminotransferase 16 U/L (12-78); Albumin/Globulin Ratio 1.3 (1.1-1.8); Alkaline Phosphatase 76 U/L (38-126); Anion Gap 13.7 mEq/L (5-15); Aspartate Amino Transferase 35 U/L (17-59); Bilirubin,Total 0.4 mg/dl (0.2-1.3); Calcium 9.2 mg/dl (8.4-10.2); Carbon Dioxide 23 mmol/L (22.0-30.0); Globulin 3.0 g/dL (1.3-3.2); Glucose 240 mg/dl (74-100); Total Protein,Serum 7.0 g/dl (6.3-8.2)
[2024-12-29] MEDS: SODIUM CHLORIDE 0.9% 10ML FLUSH SYRINGE 10 ML IV (15:12)
== END 2024-12-29 14:05 | disposition home or self-care (01) ==
LOC: INF 13:45
PROVIDERS: PCP Family Medicine; Visit Provider Internal Medicine Medical Oncology
DX: C18.2 Malignant neoplasm of ascending colon (principal)
CPT/HCPCS: 36591; 80053; 85025; J1642

== ENCOUNTER 2025-02-09 08:56 | Outpatient (CLI) | payer MEDICAID, SELFPAY ==
--- OUTSIDE RECORDS SUMMARY | 2024-12-17 08:00 | XMS_ITS | Encounter Summary ---
Author Organization [facility] Address [address] [place] [address] Care Team Providers Care Geriatrics Physician Name Role Phone Tayo Jones MD Primary Care Provider [phone] Reason for Referral * Imaging (Routine) - Closed Specialty Diagnoses / Procedures Referred By Samia pagan Referred To Contact Cardiology Diagnoses High risk surgery, pre-operative cardiovascular examination Shortness of breath on exertion Procedures NM Myocardial Perfusion Stress Test Farhad Castillo MD [address] [address] Phone: tel: fax: Referral ID Status Reason Start Date Expiration Date Visits Re quested Visits Authorized [id number] Closed 11/19/2024 05/21/2026 1 1 Reason for Visit * Imaging (Routine) - Closed Specialty Diagnoses / Procedures Referred By Samia pagan Referred To Contact Cardiology Diagnoses High risk surgery, pre-operative cardiovascular examination Shortness of breath on exertion Procedures NM Myocardial Perfusion Stress Test Farhad Castillo MD [address] [address] Phone: tel: fax: Referral ID Status Reason Start Date Expiration Date Visits Re quested Visits Authorized [id number] Closed 11/19/2024 05/21/2026 1 1 Encounter Details Date Type Department Care Team (Latest Contact Info) Description 12/17/2024 8:00 AM EDT - 12/17/2024 8:06 AM EDT Hospital Encounter Cardiac Imaging [address] [place] [address] High risk surgery, pre-operative cardiovascular examination; Shortness [...] any time in the past 12 m [facility], were you homeless or living in a mcc (including now)? No 10/09/2024 Utilities Answer Date Recorded In the past 12 months has th e [employer], gas, oil, or water company threatened to [...] Take 1 tablet by mouth daily. 07/11/2024 acetaminophen (Tylenol) 500 MG tablet Take 1 [...] Upcoming Encounters Date Type Department Care Team ([facility] st Contact Info) Description 02/11/2025 8:20 AM EDT Appointment [facility] Radiology [address] [place] [address] 02/11/2025 9:00 AM EDT Office Visit [facility] [address] [place] [address] Farhad Castillo MD [address] [address] documented as of this encounter Procedures Procedure [...] performed under direct supervision of the reading professor of forest planning. Study Impression There is no significant patient [...] documented as of this encounter Care Teams Geriatrics Physician Relationship Specialty Start Date End Date Tayo Jones MD [address] [place] [phone] PCP - General 07/14/24 documented as of this encounter
--- OUTSIDE RECORDS SUMMARY | 2024-12-17 08:07 | XMS_ITS | Encounter Summary ---
Author Organization [facility] Address [address] [place] [address] Care Team Providers Care Genetics Teacher Name Role Phone Tayo Jones MD Primary Care Provider Reason for Visit * Imaging (Routine) - Closed Specialty Diagnoses / Procedures Referred By Samia pagan Referred To Contact Cardiology Diagnoses High risk surgery, pre-operative cardiovascular examination Shortness of breath on exertion Procedures NM Myocardial Perfusion Stress Test Farhad Castillo MD [address] [place] [address] Phone: tel: fax: Referral ID Status Reason Start Date Expiration Date Visits Re quested Visits Authorized [id number] Closed 11/19/2024 05/21/2026 1 1 Encounter Details Date Type Department Care Team (Latest Contact Info) Description 12/17/2024 8:07 AM EDT - 12/17/2024 11:26 AM EDT Hospital Encounter Cardiac Imaging [address] [place] [address] Discharge Disposition: Home or Self Care Social [...] time in the past 12 m [facility], were you homeless or living in a nursing home (including now)? No 10/09/2024 Utilities Answer Date Recorded In the past 12 months has th e [email or web address], gas, oil, or water company threatened to [...] Care Team (Late st Contact Info) Description 02/11/2025 8:20 AM EDT Appointment [facility] Radiology [address] [place] [address] 02/11/2025 9:00 AM EDT Office Visit [facility] [address] [place] [address] Farhad Castillo MD [address] [place] [address] documented as of this encounter Procedures Procedure [...] documented as of this encounter Care Teams Genetics Teacher Relationship Specialty Start Date End Date Tayo Jones MD [address] [place] [address] PCP - General 07/14/24 documented as of this encounter
--- OUTSIDE RECORDS SUMMARY | 2024-12-17 11:27 | XMS_ITS | Encounter Summary ---
Author Organization [facility] Address [address] [place] [address] Care Team Providers Care Director Product Development Name Role Phone Tayo Jones MD Primary Care Provider [phone] Reason for Referral * Imaging (Routine) - Closed Specialty Diagnoses / Procedures Referred By Samia pagan Referred To Contact Radiology Diagnoses Metastatic colon cancer to liver Procedures MR Abdomen w and wo IV Contrast Farhad Castillo MD [address] [address] Phone: tel: fax: Referral ID Status Reason Start Date Expiration Date Visits Re quested Visits Authorized [id number] Closed 11/19/2024 05/21/2026 1 1 Reason for Visit * Imaging (Routine) - Closed Specialty Diagnoses / Procedures Referred By Samia pagan Referred To Contact Radiology Diagnoses Metastatic colon cancer to liver Procedures MR Abdomen w and wo IV Contrast Farhad Castillo MD [address] [address] Phone: tel: fax: Referral ID Status Reason Start Date Expiration Date Visits Re quested Visits Authorized [id number] Closed 11/19/2024 05/21/2026 1 1 Encounter Details Date Type Department Care Team (Latest Contact Info) Description 12/17/2024 11:27 AM EDT - 12/17/2024 11:59 PM EDT Hospital Encounter [facility] Radiology [address] [place] [address] Metastatic colon cancer to liver [...] time in the past 12 m [facility], were you homeless or living in a [place] [facility] facility (including now)? No 10/09/2024 Utilities Answer Date Recorded In the past 12 months has e [employer], [employer], [employer], or water [employer] threatened to shut off services in your [...] Info) Description 02/11/2025 8:20 AM EDT Appointment [facility] [address] [place] [address] 02/11/2025 9:00 AM EDT Office Visit [facility] Oncology [facility] [address] [place] [address] Farhad Castillo MD [address] [address] documented as of this encounter Procedures Procedure [...] using the following sequences: coronal single shot [id number] fast spin echo, axial T2 weighted sequences [...] documented as of this encounter Care Teams Director Product Development Relationship Specialty Start Date End Date Tayo Jones MD [address] [place] [address] PCP - General 07/14/24 documented as of this encounter
--- OUTSIDE RECORDS SUMMARY | 2024-12-24 09:15 | XMS_ITS | Encounter Summary ---
Author Organization [facility] Address [address] [place] [address] Care Team Providers Care Mannequin Mounter Name Role Phone Tayo Jones MD Primary Care Provider Reason for Referral * Consultation (Routine) - Closed Specialty Diagnoses / Procedures Referred By Samia pagan Referred To Contact General Surgery Diagnoses Metastatic colon cancer to liver Hernia Farhad Castillo MD [address] [address] Phone: tel: fax: Heidi March MD [address] [facility] [address] [place] [address] Phone: tel: fax: Referral ID Status Reason Start Date Expiration Date V isits Requested Visits Authorized [id number] Closed Specialty Services Required 12/24/2024 06/25/2026 1 1 Scheduling Instructions OK'D by Dr. March to be seen today. Combo surgery w/ on 01/06/2025 Reason for Visit * Reason Comments Follow-up Encounter Details Date Type Department Care Team (Latest Contact Info) Description 12/24/2024 9:15 AM EDT Office Visit [facility] Multidisciplinary Oncology Clinic [address] [place] [id number] Farhad Castillo MD [address] [address] Metastatic colon cancer to liver [...] RIGHT COLON AND TERMINAL ILEUM, RIGHT HEMICOLECTOMY ([id number]; 11/09/2022): - INVASIVE MODERATELY DIFFERENTIATED ADENOCARCINOMA OF [...] saw and evaluated the patient with the medical/FARMWORKER RICE/PA student. I discussed the case with the medical/FARMWORKER RICE/PA student and agree with the findings and plan as documented. I personally performed the Examand Medical Decision Making. documented in this encounter Plan of Treatment Upcoming Encounters Date Type Department Care Team (Late st Contact Info) Description 02/11/2025 8:20 AM EDT Appointment [facility] [address] [place] [address] 02/11/2025 9:00 AM EDT Office Visit [facility] Mult[facility]cology [facility] [address] [place] [address] Farhad Castillo MD [address] [address] Scheduled Orders Name Type Priority Associated Diagnoses [...] LAB COAGULATION METHOD 12/24/2024 9:59 AM EDT [facility] Blood Venous blood specimen / Unknown Venipuncture / Unknown 12/24/2024 9:22 AM EDT 12/24/2024 9:38 AM EDT us Farhad Castillo MD LAB BLOOD ORDERABLES Final Result [facility] [address] [place] [address] * Prothrombin Time/INR (12/24/2024 9:22 AM EDT) Prothrombin Time 14.0 12.0 - 14.3 sec LAB COAGULATION METHOD 12/24/2024 9:59 AM EDT [facility] INR 1.1 0.9 - 1.1 LAB COAGULATION METHOD 12/24/2024 9:59 AM EDT [facility] Blood Venous blood specimen / Unknown Venipuncture / Unknown 12/24/2024 9:22 AM EDT 12/24/2024 9:38 AM EDT Narrative [facility] - 12/24/2024 9:59 AM EDT OPTIMAL INR RANGES FOR PATIENT ON ORAL ANTICOAGULANT THERAPY Prevention of venous thromboembolism INR 2.0 to 3.0 In patients with heart disease: Atrial fibrillation INR 2.0 to 3.0 Valvular heart disease INR 2.0 to 3.0 Tissue heart valves INR 2.0 to 3.0 Mechanical prosthetic valves INR 2.5 to 3.5 Prevention of recurrent PR INR 2.5 to 3.5 us Farhad Castillo MD LAB BLOOD ORDERABLES Final Result Performing Organization Address City/[facility] Co de Phone Number [facility] [address] [place] [address] * Prealbumin, Plasma (12/24/2024 9:22 AM EDT) Prealbumin, Plasma 21.3 20.0 - 41.0 mg/dL 12/24/2024 10:24 AM EDT [facility] Blood Venous blood specimen / Unknown Venipuncture / Unknown 12/24/2024 9:22 AM EDT 12/24/2024 9:38 AM EDT Farhad Castillo MD LAB BLOOD ORDERABLES Final Result [facility] [address] [place] [address] * (ABNORMAL) Comprehensive Metabolic Panel, Plasma (12/24/2024 9:22 AM EDT) Glucose, Plasma 194(H) 74 - 99 mg/dL 12/24/2024 10:24 AM EDT [facility] BUN, Plasma 12 8 - 23 mg/dL 12/24/2024 10:24 AM EDT [facility] Creatinine, Plasma 0.89 0.70 - 1.20 mg/dL 12/24/2024 10:24 AM EDT [facility] BUN/Creatinine Ratio 13 12/24/2024 10:24 AM EDT [facility] Sodium, Plasma 139 136 - 145 mmol/L 12/24/2024 10:24 AM EDT [facility] Potassium, Plasma 4.8 3.6 - 4.9 mmol/L 12/24/2024 10:24 AM EDT [facility] Chloride, Plasma 104 97 - 107 mmol/L 12/24/2024 10:24 AM EDT [facility] CO2, Plasma 21(L) 22 - 29 mmol/L 12/24/2024 10:24 AM EDT [facility] Anion Gap 14 6 - 16 mmol/L 12/24/2024 10:24 AM EDT [facility] Total Calcium, Plasma 8.8(L) 8.9 - 10.2 mg/dL 12/24/2024 10:24 AM EDT [facility] Total Protein 6.7 6.3 - 7.9 g/dL 12/24/2024 10:24 AM EDT [facility] Albumin, Plasma 3.6 3.5 - 5.2 g/dL 12/24/2024 10:24 AM EDT [facility] AST, Plasma 27 10 - 50 U/L 12/24/2024 10:24 AM EDT [facility] ALT, Plasma 13 10 - 50 U/L 12/24/2024 10:24 AM EDT [facility] Alkaline Phosphatase, Plasma 78 40 - 115 U/L 12/24/2024 10:24 AM EDT [facility] Total Bilirubin, Plasma 0.4 0.2 - 1.1 mg/dL 12/24/2024 10:24 AM EDT [facility] eGFRcr 98.1 mL/min/1.7 3m*2 12/24/2024 10:24 AM EDT [facility] Comment:Reported eGFRcr in m L/min/1.73m2 is based the CKD-EPI 2020 equation that does not use a race coefficient. Blood Venous blood specimen / Unknown Venipuncture / Unknown 12/24/2024 9:22 AM EDT 12/24/2024 9:38 AM EDT us Farhad Castillo MD LAB BLOOD ORDERABLES Final Result [facility] [address] [place] [address] * (ABNORMAL) CBC W/O Differential (12/24/2024 9:22 AM EDT) WBC Count 8.85 3.70 - 10.30 10*3/uL LAB HEMATOLOGY METHOD 12/24/2024 10:09 AM EDT [facility] RBC Count 4.28(L) 4.60 - 6.10 10*6/uL LAB HEMATOLOGY METHOD 12/24/2024 10:09 AM EDT [facility] HGB 12.8(L) 13.7 - 17.5 g/dL LAB HEMATOLOGY METHOD 12/24/2024 10:09 AM EDT [facility] HCT 39.4(L) 40.0 - 51.0 % LAB HEMATOLOGY METHOD 12/24/2024 10:09 AM EDT [facility] Platelet Count 279 155 - 369 10*3/uL LAB HEMATOLOGY METHOD 12/24/2024 10:09 AM EDT [facility] MCV 92 79 - 98 fL LAB HEMATOLOGY METHOD 12/24/2024 10:09 AM EDT [facility] MCH 29.9 26.0 - 32.0 pg LAB HEMATOLOGY METHOD 12/24/2024 10:09 AM EDT [facility] MCHC 32.5 30.7 - 35.5 g/dL LAB HEMATOLOGY METHOD 12/24/2024 10:09 AM EDT [facility] RDW 13.9 11.5 - 14.5 % LAB HEMATOLOGY METHOD 12/24/2024 10:09 AM EDT [facility] MPV 9.4 8.8 - 12.5 fL LAB HEMATOLOGY METHOD 12/24/2024 10:09 AM EDT [facility] nRBC 0.0 <=0.0 per 100 WBCs LAB HEMATOLOGY METHOD 12/24/2024 10:09 AM EDT [facility] Blood Venous blood specimen / Unknown Venipuncture / Unknown 12/24/2024 9:22 AM EDT 12/24/2024 9:46 AM EDT Farhad Castillo MD LAB BLOOD ORDERABLES Final Result [facility] [address] [place] [address] documented in this encounter Visit Diagnoses Diagnosis [...] documented as of this encounter Care Teams Mannequin Mounter Relationship Specialty Start Date End Date Tayo Jones MD [address] [place] [address] PCP - General 07/14/24 documented as of this encounter
--- OUTSIDE RECORDS SUMMARY | 2024-12-24 10:45 | XMS_ITS | Encounter Summary ---
Author Organization [facility] Address [address] [place] [address] Care Team Providers Care Supervisor Molding Name Role Phone Tayo Jones MD Primary Care Provider Reason for Visit * Reason Comments Consult Encounter Details Date Type Department Care Team (Late st Contact Info) Description 12/24/2024 10:45 AM EDT Consult [facility] General Surgery [address] [place] [address] Heidi March MD [address] [place] [address] Personal history of nutritional deficiency [...] any time in the past 12 m [facility], were you homeless or living in [...] from the original note were not included. [id number] Hernia Repair Surgery A hernia is a [...] herbs you take. Thisincludes both prescription and vlwb-eai-wsnjdun medicines. Ask if you should stop taking [...] Shortly before surgery, an anesthesiologist or nurse transportation economics teacher will talk with you. They'll explain the [...] injury Last Reviewed Date: 2023 00:00:00 ?? [id number] [employer]. All rights reserved. This information is not [...] motor intact and no focal deficits Skin: [place], warm, well perfused Assessment/Plan Problem List Items [...] repair is indicated. Patient resides at a skilled nursing who manages his medical history and medications. [...] saw and evaluated the patient with the medical/AQUATIC PHYSIOTHERAPIST/PA student. I discussed the case with the medical/AQUATIC PHYSIOTHERAPIST/PA student and agree with the findings and [...] patient will be going back to his skilled nursing postoperatively. documented in this encounter Plan of Treatment Upcoming Encounters Date Type Department Care Team (Late st Contact Info) Description 02/11/2025 8:20 AM EDT Appointment [facility] [address] [place] [address] 02/11/2025 9:00 AM EDT Office Visit [facility] [address] [place] [address] Farhad Castillo MD [address] [address] documented as of this encounter Goals Goal [...] A1C 6.7 <5.7% Non-Diabet ic % [facility] [employer] Kit Lot Number [id number] [facility] Kit Expiration Date 10/12/26 [facility] Blood Venous blood specimen / Unknown 12/24/2024 10:39 AM EDT Heidi March MD POINT OF CARE TEST ENTER/KINGSLEY T ORDERABLES Final Result [facility] [address] [place] [address] documented in this encounter Visit Diagnoses Diagnosis [...] documented as of this encounter Care Teams Supervisor Molding Relationship Specialty Start Date End Date Tayo Jones MD [address] [place] [address] PCP - General 07/14/24 documented as of this encounter
--- OUTSIDE RECORDS SUMMARY | 2024-12-29 13:45 | XMS_ITS | Encounter Summary ---
Author Organization [facility] Address [address] [place] [address] Care Team Providers Care Gerontological Nurse Practitioner Name Role Phone Tayo Jones MD Primary Care Provider [phone] Encounter Details Date Type Department Care Team (Late st Contact Info) Description 12/29/2024 1:45 PM EDT Pre-Admission Testing [facility] Pre-op Clinic [address], [address] [place] [address] Anesthesia Record Procedure Summary Procedure Name Responsible Anesthesiologist Anesthesia Start Time Anesthesia Stop Time HEPATECTOMY, PARTIAL, microwave ablation, cholecystectomy Andres Rojas, REBAR BENDER 01/06/25 1102 01/06/25 1606 Events Date Time [...] 1558 Out of Room 1606 Fidel Dilaudid HEAD OF SALES AND MARKETING ca rtridge given to sammie Salas RN by pharmacy. Dilaudid HEAD OF SALES AND MARKETING cartridge handed off to POLICE DETECTIVE Judith Murphy. 1606 Handoff to Receiving I [...] Site Prep: Alcohol, Chlorhexidine ; Local Anesth: [place]; Technique: Anatomical landmarks; Inserted by: doc mann; Insertion Attempts: 1; Patient Tolerance: Tolerated well; Removal Date: 01/11/25; Removal Time: 0500; Removal Reason: Leaking 01/06/25 0945 by Maira Carney RN 01/11/25 0500 by Valerie Cheung Epidural Placement Date: 01/06/25; Placement Time: 1008 [...] Time: 1555 01/06/25 1113 by Andres Rojas REBAR BENDER 01/06/25 1555 by Andres Rjoas CRNA Peripheral IV Placement Date: 01/06/25; Placement Time: 1115 (created via procedure documentation); Catheter Size: 16 G; Orientation: Right; Location: Wrist; Insertion Attempts: 1; Removal Date: 01/09/25; Removal Time: 0604; Removal Reason: Infiltrated 01/06/25 1115 by Andres Rojas, REBAR BENDER 01/09/25 0604 by Marisela Avelar RN Peripheral IV Placement Date: 01/06/25; Placement Time: 1115 (created via procedure documentation); Catheter Size: 18 G; Orientation: Left; Location: Hand; Insertion Attempts: 1; Removal Date: 01/09/25; Removal Time: 0603; Removal Reason: Leaking 01/06/25 1115 by Andres Rojas, REBAR BENDER 01/09/25 0603 by Marisela Avelar RN Urethral [...] any time in the past 12 m [facility], were you homeless or living in a [...] Evaluation Note - Eva Fragoso, CANDIDA - 12/29/2024 1:45 PM EDT Images from the original note were not included. HPI Nayan Womack is a 59 y.o. male who presents with Pre-op Diagnosis * Metastatic colon cancer to liver (CMS/HCC) [C18.9, C78.7] now scheduled for HEPATECTOMY, PARTIAL (N/A), REPAIR, HERNIA, EPIGASTRIC (N/A) with Farhad Castillo MD and Dr. March on 01/06/2025 in [facility] [place]. Past Medical History[1] Family History[2] Social History[3] [...] or past [place]. hypertension: is well controlled. Exercise tolerance is [...] screen with patient's nurse, Keya, at the senior care. Eva Henning APRN [1] Past Medical History: [...] card, photo ID, along with power of workers compensation attorney, guardianship or advanced directives if applicable [...] AM EDT Appointment [facility] [address] [place] [address] 02/11/2025 9:00 AM EDT Office Visit [facility] [address] [place] [phone] Farhad Castillo MD [address] [address] documented as of this encounter Goals Goal [...] documented as of this encounter Care Teams Gerontological Nurse Practitioner Relationship Specialty Start Date End Date Tayo Jones MD [address] [place] [address] PCP - General 07/14/24 documented as of this encounter
--- OUTSIDE RECORDS SUMMARY | 2025-01-06 09:09 | XMS_ITS | Encounter Summary ---
Author Organization [facility] Address [address] [id number] Care Team Providers Care Senior Operations Manager Name Role Phone Tayo Jones MD Primary Care Provider [phone] Reason for Visit * Auth/Cert (Routine) Specialty Diagnoses / Procedures Referred By Samia pagan Referred To Contact Diagnoses Metastatic colon cancer to liver Metastatic colon cancer to liver (CMS/HCC) [C18.9, C78.7] Procedures ID RESEC LIVER,PART LOBECTOMY ID RPR AA HERNIA 1ST 3-10 CM REDUCIBLE HEPATECTOMY, PARTIAL REPAIR, HERNIA, EPIGASTRIC Farhad Castillo MD [address] [address] Phone: tel: fax: PAV A OPERATING ROOM [address] [place] [address] Phone: tel: Referral ID Status Reason Start Date Expiration Date Visits Re quested Visits Authorized [id number] 1 1 Encounter Details Date Type Department Care Team (Latest Contact Info) Description 01/06/2025 9:09 AM EDT - 01/13/2025 9:50 AM EDT Hospital Encounter PAV A Inpatient [facility] [address] [place] [id number] Farhad Castillo MD [address] [address] Metastatic colon cancer to liver (CMS/HCC) Discharge Disposition: [facility]ci Facility Social History Tobacco Use Types Packs/Day [...] living in a snf (including now)? 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 mupirocin (Bactroban) 2 % ointment Apply topically 2 times a day. 1 g 12/24/2024 naloxone (Narcan) 4 mg/0.1 mL nasal spray 1. Give 1 spray in nostril for no/slow breathing or cannot wake after opioid use 2. Call 911 3. Repeat in other nostril if symptoms continue 1 each 01/13/2025 Nutritional Supplements (Impact Advanced Recovery) liquid Drink 1 178ml carton 2 per day X 5 days before surgery 2500 mL 12/24/2024 ondansetron (Zofran) 4 MG tablet 04/19/2024 pantoprazole (Protonix) 40 MG EC tablet Take [...] Take 1 tablet by mouth daily. 07/11/2024 enoxaparin (Lovenox) 40 MG/0.4ML solution prefilled syringe [...] Note Faith Snyder 59 y.o. male CSN: [id number] Admission: 01/06/2025 9:09 AM Primary Problem: Metastatic colon cancer to liver Primary Front Desk Lead: Primary Caregiver: Other (Comment) (staff) Assistance Available at Discharge: Availability of Care Givers (#Hours): 24 hours Family/Front Desk Lead(s) Willingness Assessed to care for patient at home: Yes Family/Front Desk Lead(s) Readiness Assessed to care for patient at home: Yes Housing Circumstances-Z Codes: Housing Circumstances (select all that apply): None Applicable Discharge Facility/Level of Care Needs: Discharge Facility/Level of Care Needs: 63-Manager Social Work care DME/Equipment Needed after Discharge: Equipment Currently Used at Home: cane, straight Readmission Within the Last 30 Days: Readmission Within the Last 30 Days: no previous admission in last 30 days Medicare Documentation: Medicare Second Notice?: No Follow-up: [facility] phone [phone] [facility] phone [phone] terminal clerk resident Follow up Discharge Transportation: Transportation Home [...] caliber at 1000 this date back to [facility] where pt resides for LTC. Pt meets FPG 300%. SW faxed the DC summary and provided the information below to 1st call provider and bedside RN. Pharmacy for controlled meds: [facility] NFR: [phone] ext [phone] Fax the DC summary: [phone] Elle Andre, FOUNTAIN PEN TURNER, PURIFICATION SUPERVISOR Social Work Senior Department of Case Management [facility] * Care Plan - Katelynn Lowery RN [...] RN Katelynn to call report back to [facility]. Belongings packed. [employer] to transport patient back. * [facility] - Bhakti Cooley RN - 01/13/2025 8:03 AM EDT Images from the original note were not included. [id number] Cyclobenzaprine WHY is this medicine prescribed? Cyclobenzaprine [...] of all of the prescription and nonprescription (wktm-que-huqjtdv) medicines, vitamins, minerals, and dietary supplements you [...] or pharmacist about specific clinical use. The [employer] represents that the information provided hereunder was formulated with a reasonable standard of care, and in conformity with professional standards in the field. The [employer] makes no representations or warranties, express or implied, including, but not limited to, any implied warranty of merchantability and/or fitness for a particular purpose, with respect to such information and specifically disclaims all such warranties. Users are advised that decisions regarding drug therapy are complex medical decisions requiring the independent, informed decision of an appropriate health caregivers homecare, and the information is provided for informational purposes only. The entire monograph for a drug should be reviewed for a thorough understanding of the drug's actions, uses and side effects. The [employer] does not endorse or recommend the use of any drug.The information is not a substitute for medical care. AHFS?? Patient Medication Information?. ?? Copyright, 2023. The [employer]??, [address], [address], [place], [place]. All Rights Reserved. Duplication for commercial use must be authorized by [facility]. Selected Revisions: May 30, 2016. AHFS?? Patient Medication Information?. ?? Copyright, 2024 * Bhakti Nolen RN - 01/13/2025 8:02 AM EDT 1087 Oxycodone Oral Tablet, Immediate Release Brand Names: Oxaydo, Roxicodone What is this medicine? Oxycodone (mj-d-RQB-done) is an opioid pain reliever. It is [...] a special medication guide each time you case picker this medicine. ? Overdosage: Taking too [...] should report to your doctor or health caregivers homecare as soon as possible: ? allergic reactions [...] attention (report to your doctor or health caregivers homecare if they continue or are bothersome): ? constipation ? dry mouth ? itching ? nausea, vomiting ? upset stomach This list may not describe all possible side effects. Call your doctor for medical advice about side effects. You may report side effects to FDA at [phone]-HLL-8720. Where should I keep my medicine? This [...] location. To find a disposal location, visit [facility]/[place]. If you cannot take unused medicine to a proper location, you can mix the medicine with coffee grounds or tania litter and dispose of in the normal trash. Your doctor may also give you a special disposal pouch for this medicine. You can also flush the medicine down the toilet. * [facility] - Bhakti Cooley RN - 01/13/2025 8:02 AM EDT Images from the original note were not included. [id number] Enoxaparin Injection IMPORTANT WARNING: If you have [...] of all of the prescription and nonprescription (vhap-gnm-akodykx) medicines, vitamins, minerals, and dietary supplements you [...] or pharmacist about specific clinical use. The [employer]. represents that the information provided hereunder was formulated with a reasonable standard of care, and in conformity with professional standards in the field. The [employer]. makes no representations or warranties, express or implied, including, but not limited to, any implied warranty of merchantability and/or fitness for a particular purpose, with respect to such information and specifically disclaims all such warranties. Users are advised that decisions regarding drug therapy are complex medical decisions requiring the independent, informed decision of an appropriate health caregivers homecare, and the information is provided for informational purposes only. The entire monograph for a drug should be reviewed for a thorough understanding of the drug's actions, uses and side effects. The [employer] does not endorse or recommend the use of any drug.The information is not a substitute for medical care. AHFS?? Patient Medication Information?. ?? Copyright, 2023. The [employer]??, [address], [address], [place], [place]. All Rights Reserved. Duplication for commercial use must be authorized by [facility]. Selected Revisions: November 02, 2023. AHFS?? Patient Medication Information?. ?? Copyright, 2024 * [facility] - Bhakti Cooley RN - 01/13/2025 8:02 [...] contact your doctor after hours, please call [phone] and ask for the doctors berna for GOLD Surgery. Clinic information for Dr. Castillo: [facility] [address] [place], [place] [phone] * Discharge Summary - Paulo Jay, CUTTER IN - 01/13/2025 7:51 AM EDT Hospitalization Admit Date/Time: 01/06/2025 9:09 AM Admitting Attending: Farhad Castillo Discharge Date: 01/13/25 Discharge Attending Physician: Farhad Castillo MD PCP name and Address: Tayo Jones MD [address] [place] [address] Referring provider name and address: No referring provider defined for this encounter. Chief Concern, Brief History of Present Illness, and Hospital Course Faith Snyder is a 59 y.o. male with a past medical history of DM, HTN, presented to [facility] as a scheduled surgical intervention for [...] Your Medications These medications were sent to [place], [place] - [address] [facility] [address] [facility] [address] [place] [address] Lantus SoloStar 100 UNIT/ML injection pen naloxone [...] Signed 01/08/2025 11:18 AM by Paulo Jay CUTTER IN - common post-op finding likely reactive 2/2 [...] vomiting, or feeling unwell - Call the [facility] with any questions or concerns during [...] Center 02/04/2025 10:15 AM [facility]idi March [facility] Test Results Pending At Discharge Pertinent [...] saw and evaluated the patient with the CUTTER IN. I attest to being involved in providing substantive time in patient care. I discussed the case with them and agree with the findings as documented. The discussion and plan reflect my edits and medical decision making. Dr. Montserrat Connor MD Industrial/Organizational Psychologist of Surgical Oncology [facility] * Care Plan - Tereza Pham RN - 01/13/2025 6:33 AM EDT Problem: [...] Note Faith Snyder 59 y.o. male CSN: [id number] Admission: 01/06/2025 9:09 AM Primary Problem: Metastatic [...] caliber on 01/13/25 at 1100 back to [facility]. Pharmacy for controlled meds: [facility] NFR: [phone] ext [phone] Fax the DC summary: [phone] Elle Andre, FOUNTAIN PEN TURNER, PURIFICATION SUPERVISOR Social Work Senior Department of Case Management [facility] * Consults - Naz Posey RN - 01/12/2025 8:02 AM EDT Epidural catheter removed yesterday. Catheter site clean, dry, intact, and open to air at this time. Acute Pain will sign off. Please Contact Acute Pain Service with any additional questions or concerns via [employer] orpage [phone]. * Progress Notes - Oziel Morris MD - 01/12/2025 6:47 AM EDT Images from the original note were not included. [facility] Department of Surgery Division of General, Endocrine, [...] Edited by: Cyndi Sol MD at 01/12/2025 9075 Review of Systems: Relevant review of systems [...] Signed 01/08/2025 11:18 AM by Paulo Jay CUTTER IN - multimodal pain management - transition PO pain meds as diet advances and prior to discharge Electrolyte abnormality Overview Signed 01/08/2025 11:18 AM by Paulo Jay CUTTER IN - daily/PRN CMP, Mg, Phos - replete as appropriate - goal: K>4, phos>3, mg>2 Leukocytosis Overview Signed 01/08/2025 11:18 AM by Paulo Jay CUTTER IN - common post-op finding likely reactive 2/2 [...] PRN, oxycodone LDA: LUQ EL, PIV PT/OT: half-way with home/inpatient PT/OT Edited by: Cyndi Sol [...] medical decision making. Dr. Montserrat Connor MD Industrial/Organizational Psychologist of Surgical Oncology [facility] * Progress Notes - Kd Boyd MD [...] 24 hours Assessment: doing well Plan: wean SUPERINTENDENT TRACK Plan explained/all questions answered/plan in agreement with: Patient Patient seen and examined today on rounds with AP Nurse. Epidural analgesics infusing for the management of postop pain. Analgesic medication rate and use reviewed. Patient doing well and quite comfortable. Patient reports the epidural SUPERINTENDENT TRACK doses are effective. No significant adverse effects noted. My plan is to STOP the epidural infusion basal and SUPERINTENDENT TRACK settings. Will follow. Reason for Block: post-op [...] with any additional questions or concerns via [employer] orpage [phone]. * Progress Notes - Jessica Benoit RN - 01/11/2025 10:33 AM EDT Case Management Adult Progress Note Faith Snyder 59 y.o. male CSN: [id number] Admission: 01/06/2025 9:09 AM Primary Problem: Metastatic colon cancer to liver Anticipated Discharge Date: 01/15 Has Discharge Plans Changed? No Medicare Second Notice: Housing Circumstances: Not Applicable Housing Circumstances Action Taken: Medically Ready for Discharge: no Additional Comments [facility] phone [phone] will accept him hadaphne as a long term care resident. POC reviewed with primary team. [...] with any additional questions or concerns via [employer] orpage [phone]. * Consults - Marylin Yang RN - [...] (PF) 1.25 mg/mL in 100 mL (PF) SUPERINTENDENT TRACK no dose Epidural Continuous hydromorphone 10 mcg/mL [...] with any additional questions or concerns via [employer] Message3. * Progress Notes - Paulo Jay, CUTTER IN - 01/11/2025 7:47 AM EDT Images from [...] Signed 01/08/2025 11:18 AM by Paulo Jay CUTTER IN - daily/PRN CMP, Mg, Phos - replete [...] LDA: Epidural, LUQ EL, PIV, NGT PT/OT: half-way with home/inpatient PT/OT Edited by: Paulo Jay [...] medical decision making. Dr. Montserrat Connor MD Industrial/Organizational Psychologist of Surgical Oncology [facility] * Progress Notes - Linus Hernandez MD - 01/11/2025 7:21 AM EDT Images from the original note were not included. [facility] Department of Surgery Division of General, [...] (PF) 1.25 mg/mL in 100 mL (PF) SUPERINTENDENT TRACK no dose Epidural Continuous hydromorphone 10 mcg/mL [...] with any additional questions or concerns via [employer] orpage [phone]. * Progress Notes - Kaitlin Judd MD - 01/10/2025 1:06 PM EDT Acute Pain Service Pain scale (0-10): 0/10 Side Effects Nausea/Vomiting: no Pruritus: no Confusion: no Sedation: no Numbness/Tingling: no Postural headache: no Additional side effects: no Outcomes Able to take PO: yes Has ambulated: yes Assessment & Plan in the Next 24 hours Assessment: doing well Plan: wean SUPERINTENDENT TRACK Plan explained/all questions answered/plan in agreement with: [...] LDA: Epidural, LUQ EL, PIV, NGT PT/OT: half-way with home/inpatient PT/OT Edited by: Linus Hernandez [...] medical decision making. Dr. Montserrat Connor MD Industrial/Organizational Psychologist of Surgical Oncology [facility] * Care Plan - Linda Brannon [...] Isolation Precautions: precautions maintained * Procedures - Iliana Lee RN - 01/10/2025 10:19 AM EDTAssociated [...] (PF) 1.25 mg/mL in 100 mL (PF) SUPERINTENDENT TRACK no dose Epidural Continuous hydromorphone 10 mcg/mL [...] with any additional questions or concerns via [employer] orpaMapidy [phone]. * Care Plan - Cathryn Lomas RN [...] (PF) 1.25 mg/mL in 100 mL (PF) SUPERINTENDENT TRACK no dose Epidural Continuous hydromorphone 10 mcg/mL [...] with any additional questions or concerns via [employer] orpage [phone]. * Care Plan - Nancy Hughes RN [...] 24 hours Assessment: doing well Plan: continue SUPERINTENDENT TRACK at current rate Plan explained/all questions answered/plan [...] abdomen. COMPARISON: Abdominal radiograph 01/08/2025 FINDINGS: Limited rqhhh-ul-ihmn abdominal radiograph for the purpose of locating [...] Signed 01/08/2025 11:18 AM by Paulo Jay CUTTER IN - daily/PRN CMP, Mg, Phos - replete as appropriate - goal: K>4, phos>3, mg>2 Leukocytosis Overview Signed 01/08/2025 11:18 AM by Paulo Jay CUTTER IN - common post-op finding likely reactive 2/2 [...] LDA: Epidural, LUQ EL, PIV, NGT PT/OT: half-way with home/inpatient PT/OT Edited by: Cyndi Sol MD at 01/09/2025 9135 Dispo: Continue Current Level of Care Cyndi [...] reflect my edits and medical decision making. Harvey trial. Encourage ambulation. Decrease SUPERINTENDENT TRACK basal rate. Dr. Montserrat Connor MD Industrial/Organizational Psychologist of Surgical Oncology [facility] * Consults - Renata Garcia RN - [...] (PF) 1.25 mg/mL in 100 mL (PF) SUPERINTENDENT TRACK no dose Epidural Continuous hydromorphone 10 mcg/mL [...] with any additional questions or concerns via [employer] orpage [phone]. * Care Plan - Marisela Avelar RN [...] APS rounds Location: Asleep Pain Rating (0-10): [facility] Comfort/ Acceptable Pain Level: [facility] Acute Pain Service Comments: Patient is currently [...] (PF) 1.25 mg/mL in 100 mL (PF) SUPERINTENDENT TRACK no dose Epidural Continuous hydromorphone 10 mcg/mL [...] with any additional questions or concerns via [employer] orpaMapidy [phone]. * Care Plan - Nancy Hughes RN [...] of bowel function. Dr. Montserrat Connor MD Industrial/Organizational Psychologist of Surgical Oncology [facility] * Consults - Veda Bray RD - 01/08/2025 9:20 AM EDT Adult Nutrition Evaluation Note Faith Snyder 59 y.o. male CSN: [id number] Room/Bed 124/124A Nutrition evaluation type: assessment Reason [...] 33.49 Weight Evaluation: Obese-Class 1 (BMI 30-34.9) [place] Body Weight (kg): 78.2 Percent [place] Body Weight: 139 Adjusted Body Weight (kg): 85.9 Estimated Needs: Kcal/ K-30 Kcal Provided: 4929-6889 Kcal Needs Based On: Adjusted weight Gm [...] (PF) 1.25 mg/mL in 100 mL (PF) SUPERINTENDENT TRACK no dose Epidural Continuous hydromorphone 10 mcg/mL [...] with any additional questions or concerns via [employer] orpage [phone]. * Care Plan - Cathryn Lomas RN [...] (PF) 1.25 mg/mL in 100 mL (PF) SUPERINTENDENT TRACK no dose Epidural Continuous hydromorphone 10 mcg/mL [...] with any additional questions or concerns via [employer] orDrDoctor5. * Care Plan - Bonnie Scott RN [...] medical history of DM, HTN, presented to [facility] as a scheduled surgical intervention for [...] with ventral incisional hernia repair with mesh (Acna) 01/06/25 Plan: - recommend aggressive management of BG to ensure levels below 200 - OOB, ambulate - rest of care per primary team - [facility] will continue to follow Please page on-call resident for any questions or concerns. Oziel Morris MD PGY-5 General Surgery Pager: [phone] Cosigned by Heidi March MD at 01/08/2025 [...] Note Faith Snyder 59 y.o. male CSN: [id number] Admission: 01/06/2025 9:09 AM Primary Problem: Metastatic colon cancer to liver Business Office Associate reviewed chart and spoke with patient to complete this Initial Case Management Assessment. PCP: Tayo Jones MD Emergency Contact: Extended Emergency Contact Information Primary Emergency Contact: SWATI SNYDER [place] [employer] Relation: Sister Preferred language: Burmese Insurance: Primary Visit Coverage Payer Plan Sponsor Code Group Number Group Name MEDICAID-[facility] MEDICAID TRADITIONAL Primary Visit Coverage Subscriber Subscriber ID Subscriber Name Subscriber N Subscriber Address [id number] FAITH SNYDER [phone] [address] [place] [address] Patient information:lives as a LT resident Daily Living Activities: Functional Status: Moderate assistance Living Arrangements: Snf Type of Residence: Single Level, FCI/residential care, half-way facility [address] [facility] [address] Current DME: Equipment Currently Used at Home: cane, straight Income Information: Income Source: Disabled Income/Expense Information: Income meets expenses Current Resources Utilized: None Housing Circumstances-Z Codes: Housing Circumstances (select all that apply): None Applicable Patient Referred to: [facility] phone [phone] Anticipated Discharge Date: 9/29/25 Patient's Discharge Goal: [facility] phone [phone] Assistance Available at Discharge: 05/11 Discharge Transport: medicaid transport Follow Up Transport: medicaid transport Home Health / Home Infusion / Outpatient Dialysis Services: none Living Will/Advance Directive/Power of Sharemilker /Guardian: No LW SÁNCHEZ is sister Swati Snyder Additional Comments: Business Office Associate provided introduction of CM and information on CM role. Confirmed demographics in [place] accurate. Jessica Benoit RN * Significant Event [...] or living in a snf (including now)? N Food Insecurity Within the past 12 months, you worried that your food would run out before you got the money to buymore. Never true Within the past 12 months, the food you bought just didn't last and you didn't have money to get more. Never true Utilities In the past 12 months has the electric, gas, oil, or water [employer] threatened to shut off services in your [...] Treatment Time 39 min PT Discharge Recommendations half-way facility, Home health PT, Home health OT [...] Chair since being admitted to the hospital. Dry Mill Worker (if applicable) Not Applicable HOME LIVING/SET-UP Lives With (roommate) [facility] Home Equipment Cane (patient believes he would have access to other equipment) Home Layout One level Bathroom Layout Bathroom: Tub/Shower: Walk-in shower, Grab bars Bathroom: Toilet: Standard, Grab bars Bathroom: Accessibility: Accessible, Accessible via wheelchair, Accessible via walker Additional Comments PRIOR LEVEL OF FUNCTION Assist at Home (intermittent assist from staff) Level of Mobility Ambulatory- household only Mobility Cooper Independent gait with device History of Falls [...] Treatment Minutes 24 BED MOBILITY Level of Cooper Physical/Non- physical Assist Adaptive Equipment Utilized Rolling/ [...] sitting edge of bed. TRANSFERS Level of Cooper Physical/Non- physical Assist Adaptive Equipment Utilized Sit [...] Limits, Stooped posture, Forward head Level of Cooper Balance Support Interventions Static Sit Standby assist [...] Assessments Standardized Assessments: AMPA 6-Clicks Mobility Assessment [facility] 6-Clicks Mobility Assessment Difficulty patient has [...] climbing 3-5 steps with a railing?: Unable [facility] 6-Clicks Mobility Assessment Total : 13 [...] Making Moderate complexity PT RECOMMENDATIONS Discharge Destination half-way facility, Home health PT, Home health OT [...] Snyder Today's Date: 01/07/2025 OT Discharge Recommendations: half-way facility, Home health OT, Home health PT [...] her. Participants in Care Family/Caregiver Present: No Dry Mill Worker: Not Applicable Presentation Oxygen Therapy: Supplemental oxygen [...] Home Living/Set-up Lives With: (roommate) Home Type[facility] Home Adaptive Equipment: Cane (patient believes he would have access to other equipment) Home Layout: One level Bathroom: Tub/Shower: Walk-in shower, Grab bars Bathroom: Toilet: Standard, Grab bars Bathroom: Accessibility: Accessible, Accessible via wheelchair, Accessible via walker Prior Level of Function Receives Help From: (intermittent assist from staff) Level of Mobility: Ambulatory- household only Mobility Cooper: Independent gait with device ADL Performance: Needs [...] Mobility Bed Mobility Exam: Rolling/Turning Level of Cooper: Moderate assist (50% patient effort) Physical/Nonphysical Assist: Verbal Cues, Minimal cues Assistive Device: Bed rails Bed Mobility Exam: Scooting/Bridging Level of Cooper: Contact guard Physical/Nonphysical Assist: Verbal Cues, Nonverbal cues (demo/gestures), Minimal cues Bed Mobility Exam: Supine to Sit Level of Cooper: Moderate assist (50% patient's effort) Physical/Nonphysical Assist: Verbal Cues, Nonverbal cues (demo/gestures), Additional assist utilized for safety Assistive Device: Bed rails Transfers Transfer Exam: Sit to stand Level of Cooper: Minimum assist (75% patient's effort) Physical/Nonphysical Assist: Verbal Cues, Nonverbal cues (demo/gestures), Minimal cues, Set-up required Assistive Device: Walker, rolling Transfer Exam: Stand to Sit Level of Cooper: Minimum assist (75% patient's effort) Physical/Nonphysical Assist: Set-up required, Verbal Cues, Nonverbal cues (demo/gestures), Minimal cues Assistive Device: Walker, rolling Transfer Exam: Bed to Chair/Chair to Bed Level of Cooper: Minimum assist (75% patient's effort) Physical/Nonphysical Assist: [...] overall support return to baseline. Standardized Assessments [facility] 6-Click Daily Activities Help from Other: Don/Doff Regular Lower Body Clothings: A lot Help From Other: Bathing: A lot Help From Other: Toileting: A lot Help From Other: Don/Doff Upper Body Clothings: A lot Help From Other: Grooming: Little Help From Other: Eating Meals: None [facility] 6 Click - Daily Activities Score: 15 [...] Eval complexity: Moderate OT Recommendations Discharge Destination: half-way facility, Home health OT, Home health PT [...] mL/hr and encouraged patient to utilize the SUPERINTENDENT TRACK button to help manage pain better. Will [...] (PF) 1.25 mg/mL in 100 mL (PF) SUPERINTENDENT TRACK no dose Epidural Continuous hydromorphone 10 mcg/mL [...] with any additional questions or concerns via [employer] orpaMapidy [id number]. * Progress Notes - Kd Hollins MD [...] Service Comments: Pain Service comments: Will continue SUPERINTENDENT TRACK and/ or infusion until primary service decides it is appropriate to discontinue SUPERINTENDENT TRACK and/ or infusion. * Significant Event - Brandon Diggs MD - 01/06/2025 8:01 PM EDT Images from the original note were not included. [facility] [place] [facility] Department of Surgery Division of General, [...] nursing staff. I have notified senior resident/attending diffusion operator with any issues or concerns. Brandon Diggs [...] from the original note were not included. [facility] Department of Surgery Division of Surgical Oncology [...] nursing staff. I have notified senior resident/attending diffusion operator with any issues or concerns. Brandon Diggs [...] (PF) 1.25 mg/mL in 100 mL (PF) SUPERINTENDENT TRACK no dose Epidural Continuous hydromorphone 10 mcg/mL [...] open partial right hepatectomy, incisional hernia repair SUPERINTENDENT TRACK Education: Patient/ family SUPERINTENDENT TRACK education done: Yes Pre-hook-up Assessment: Pain Rating (0-10): 7 Comfort/ Acceptable Pain Level: 3 Location: abdomen Epidural insertion site: occlusive dressing intact Epidural motor function: Able to bend knees Hook-up Time: Hooked up at 1750 with 5 ml bolus. Additional Comments: Negative Aspiration. * Op Note - Farhad Castillo MD - 01/06/2025 11:44 AM EDT Operative Note Date: 01/06/25 Location: [place] Name: Faith Snyder, : 1965, Diagnoses: Pre-op Diagnosis Metastatic colon cancer to liver Post-op Diagnosis Metastatic colon cancer to liver Procedure(s): Segment 8 Liver Resection Segment 7 MWA (100W, 2 min, 100W 40 seconds tract ablation) Intra-operative US to guide resection and ablation Open Cholecystectomy Attending Surgeon(s): Panel 1: * Farhad Castillo - Primary Panel 2: * Heidi March - Primary Silica Mixer Operator(s): Panel 1: * Kd Hollins MD - [...] Catheter Indication Reasons Recent Urologic, Colorectal or BELT AND LINK SHOP SUPERVISOR surgery 01/07/25799 Output (mL) 175 mL 01/07/25 1524 Implants Type Name Action Serial No. MESH PHASIX ST [id number] - [id number] Implanted Specimen: Specimens ID Source Frozen? 1 [...] The abdomen was shaved and then prepped and draped in a sterile fashion after a Wu [...] to the central tendon of the diaphragm. This proved to be quite technically demanding as the patient had a very large intra-abdominal mass in the liver itself was very soft and fatty. Ultimately we were able to bring the liver up into the field and perform a complete intraoperative ultrasonography which demonstrated a solitary 4 cm lesion located in segment 8 as well as a 3 cm lesion located deep in segment 7. Laparotomy sponges were placed to elevate the liver and a nonanatomic segment [...] the operation will be dictated by the g em service including the closure. I was present [...] cm incisional hernia repair with open underlay [id number] Phasix ST OPS Partial omentectomy Excision skin/scar/sac [id number] Attending Surgeon(s): Panel 2: * Heidi March - Primary Silica Mixer Operator(s): Panel 1: * Kd Hollins MD - Resident - Assisting, science intern Panel 2: * Oziel Raza MD - Fellow - Assisting as no qualified resident available to assist Anesthesia: General ASA: III Blood Administration: Blood Product Administration History None Estimated Blood Loss: 3 mL Drains: Closed/Suction Drain LUQ Bulb 19 Fr. (Active) Site Description Unable to view 01/10/25 193 Dressing Status Clean;Dry 01/11/25 0608 Drainage Appearance Serosanguineous 01/11/25607 Status To bulb suction 01/11/25 06 Output (mL) 1 mL 01/11/25607 [REMOVED] Urethral Catheter Temperature probe;Non-latex 16 Fr. (Removed) Site Assessment Clean;Skin intact 01/08/25799 CAUTI: Collection Container Standard drainage bag;Collection container below bladder and tubing free of kinks 01/08/25799 CAUTI: Securement Method Securing device (Describe) 01/08/25799 CAUTI: Specimen Collection Port Covered with Alcohol Cap Yes 01/08/25799 CAUTI: Urinary Catheter Indication Yes, meets indication reason 01/08/25799 CAUTI: Urinary Catheter Indication Reasons Recent Urologic, Colorectal or BELT AND LINK SHOP SUPERVISOR surgery 01/08/25799 Output (mL) 200 mL 01/08/25799 Implants Type Name Action Serial No. MESH PHASIX ST [id number] - [id number] Implanted Specimen: Specimens ID Source Frozen? 1 Other (specify site) No Description: Partial Omentectomy 2 Other (specify site) No Description: Segment 8 partial hepatectomy 3 Gallbladder No Description: gallbladder Findings: Complex multiple large Chilean-cheese hernia defects along the entirety of his [...] and and in fact he had multiple Chilean cheese defects for the entirety of his [...] a LigaSure. During this due to the Chilean cheese configuration and multiple areas where the [...] PDS suture. This was run circumferentially. The innerfish was then removed from the mesh. The anterior fascia was then closed in interrupted [id number] fashion with the midline pexing to the bilaminar Phasix mesh as part of the OPS system. In doing so there was no evidence of bleeding. Our subcutaneous area was evaluated. There was no evidence of additional bleeding. A 19 Sudanese Linus drain was placed in the subcutaneous tissue marked by nylonsuture. Skin was then closed in layers including a 2-0 Vicryl quilting to reduce space followed by 3-0 Vicryl deep dermal and a 4-0 [...] 01/06/2025 11:44 AM EDT Date: 01/06/25 Location: [place] Name: Faith Snyder, : 1965, Diagnoses: Pre-op Diagnosis Metastatic colon cancer to liver Post-op Diagnosis Metastatic colon cancer to liver Procedure(s): Ventral incisional hernia repair with Phasix mesh Partial omentectomy Attending Surgeon(s): Panel 1: * Farhad Castillo - Primary Panel 2: * Heidi March - Primary Silica Mixer Operator(s): Panel 1: * Kd Hollins MD - Resident - Assisting Panel 2: * Oziel Raza MD - Resident - Assisting Anesthesia: General ASA: III Blood Administration: Blood Product Administration History None Estimated Blood Loss: 3 mL Drains: Closed/Suction Drain LUQ Bulb 19 Fr. (Active) Urethral Catheter Temperature probe;Non-latex 16 Fr. (Active) Implants Type Name Action Serial No. MESH PHASIX ST [id number] - [id number] Implanted Specimen: Specimens ID Source Frozen? 1 [...] 01/06/2025 11:44 AM EDT Date: 01/06/25 Location: [place] [facility] Name: Faith Snyder, : 1965, Diagnoses: Pre-op Diagnosis Metastatic colon cancer to liver Post-op Diagnosis Metastatic colon cancer to liver Procedure(s): Segment 8 partial hepatectomy Segment 6 microwave ablation Open cholecystectomy Attending Surgeon(s): Panel 1: * Farhad Castillo - Primary Panel 2: * Heidi March - Primary Silica Mixer Operator(s): Panel 1: * Kd Hollins MD - Resident - Assisting Panel 2: * Oziel Raza MD - Resident - Assisting Anesthesia: General ASA: III Blood Administration: Blood Product Administration History None Estimated Blood Loss: 3 mL Drains: Closed/Suction Drain LUQ Bulb 19 Fr. (Active) Urethral Catheter Temperature probe;Non-latex 16 Fr. (Active) Implants Type Name Action Serial No. MESH PHASIX ST [id number] - [id number] Implanted Specimen: Specimens ID Source Frozen? 1 [...] 8:15 AM EDT Associated attestation - Farhad Castillo MD - 01/07/2025 8:15 AM EDT I [...] RIGHT COLON AND TERMINAL ILEUM, RIGHT HEMICOLECTOMY ([id number]; 11/09/2022): - INVASIVE MODERATELY DIFFERENTIATED ADENOCARCINOMA OF [...] AM EDT Appointment [facility] [address] [place] [address] 02/11/2025 9:00 AM EDT Office Visit [facility] Multidisciplinary Oncology Clinic [address] [place] [address] Farhad Castillo MD [address] [phone] documented as of this encounter Goals Goal [...] EDT Metastatic colon cancer to liver (CMS/HCC) ID RPR AA HERNIA 1ST 3-10 CM REDUCIBLE 01/06/2025 10:47 AM EDT Metastatic colon cancer to liver (CMS/HCC) Incisional hernia without obstruction or gangrene ID RESEC LIVER,PART LOBECTOMY 01/06/2025 10:47 AM EDT Metastatic colon cancer to liver (CMS/HCC) Incisional hernia without obstruction or gangrene POCT GLUCOSE METER UNSOLICITED RESULTS Routine 01/06/2025 9:37 AM EDT documented in this encounter Results * (ABNORMAL) POCT glucose meter (01/13/2025 7:02 AM EDT) POCT Glucose 134(H) 74 - 99 mg/dL 01/13/2025 7:03 AM EDT [facility] Comment:Accuracy of a glucos e result [...] Comment 01/13/2025 7:03 AM EDT [facility] Sprinkler Driver ID Vita Holder 01/13/2025 7:03 AM EDT [facility]ARE [facility] Device ID [id number] 01/13/2025 7:03 AM EDT [facility] Specimen Type POC Capillary 01/13/2025 7:03 AM EDT [facility] Blood Capillary blood specimen / Unknown 01/13/2025 7:02 AM EDT 01/13/2025 7:03 AM EDT us Farhad Castillo MD LAB POINT OF CARE TEST DOCKED DEVICE UNSOLICITED RESULTS Final Result Performing Organization Address [facility] Co de Phone Number [facility] [address] [place] [address] * Phosphorus (01/13/2025 3:37 AM EDT) Phosphorus, Plasma 3.3 2.5 - 4.5 mg/dL 01/13/2025 4:45 AM EDT [facility] Blood Venous blood specimen / Unknown Venipuncture / Unknown 01/13/2025 3:37 AM EDT 01/13/2025 4:14 AM EDT us Farhad Castillo MD LAB BLOOD ORDERABLES Final Result [facility] [address] [place] [address] * (ABNORMAL) Magnesium (01/13/2025 3:37 AM EDT) Magnesium, Plasma 1.8(L) 1.9 - 2.4 mg/dL 01/13/2025 4:45 AM EDT [facility] Blood Venous blood specimen / Unknown Venipuncture / Unknown 01/13/2025 3:37 AM EDT 01/13/2025 4:14 AM EDT us Farhad Castillo MD LAB BLOOD ORDERABLES Final Result [facility] [address] [place] [address] * (ABNORMAL) Comprehensive metabolic panel (01/13/2025 3:37 AM EDT) Glucose, Plasma 156(H) 74 - 99 mg/dL 01/13/2025 4:45 AM EDT [facility] BUN, Plasma 8 8 - 23 mg/dL 01/13/2025 4:45 AM EDT [facility] Creatinine, Plasma 0.79 0.70 - 1.20 mg/dL 01/13/2025 4:45 AM EDT [facility] BUN/Creatinine Ratio 10 01/13/2025 4:45 AM EDT [facility] Sodium, Plasma 136 136 - 145 mmol/L 01/13/2025 4:45 AM EDT [facility] Potassium, Plasma 3.6 3.6 - 4.9 mmol/L 01/13/2025 4:45 AM EDT [facility] Chloride, Plasma 103 97 - 107 mmol/L 01/13/2025 4:45 AM EDT [facility] CO2, Plasma 23 22 - 29 mmol/L 01/13/2025 4:45 AM EDT [facility] Anion Gap 10 6 - 16 mmol/L 01/13/2025 4:45 AM EDT [facility] Total Calcium, Plasma 8.4(L) 8.9 - 10.2 mg/dL 01/13/2025 4:45 AM EDT [facility] Total Protein 5.7(L) 6.3 - 7.9 g/dL 01/13/2025 4:45 AM EDT [facility] Albumin, Plasma 2.7(L) 3.5 - 5.2 g/dL 01/13/2025 4:45 AM EDT [facility] AST, Plasma 20 10 - 50 U/L 01/13/2025 4:45 AM EDT [facility] ALT, Plasma 15 10 - 50 U/L 01/13/2025 4:45 AM EDT [facility] Alkaline Phosphatase, Plasma 67 40 - 115 U/L 01/13/2025 4:45 AM EDT [facility] Total Bilirubin, Plasma 0.4 0.2 - 1.1 mg/dL 01/13/2025 4:45 AM EDT [facility] eGFRcr 101.7 mL/min/1.7 3m*2 01/13/2025 4:45 AM EDT [facility] Comment:Reported eGFRcr in m L/min/1.73m2 is based the CKD-EPI 2020 equation that does not use a race coefficient. Blood Venous blood specimen / Unknown Venipuncture / Unknown 01/13/2025 3:37 AM EDT 01/13/2025 4:14 AM EDT Farhad Castillo MD LAB BLOOD ORDERABLES Final Result [facility] [address] [place] [address] * (ABNORMAL) CBC W/O Differential (01/13/2025 3:37 AM EDT) WBC Count 11.46(H) 3.70 - 10.30 10*3/uL LAB HEMATOLOGY METHOD 01/13/2025 4:24 AM EDT [facility] RBC Count 3.36(L) 4.60 - 6.10 10*6/uL LAB HEMATOLOGY METHOD 01/13/2025 4:24 AM EDT [facility] HGB 9.9(L) 13.7 - 17.5 g/dL LAB HEMATOLOGY METHOD 01/13/2025 4:24 AM EDT [facility] HCT 30.6(L) 40.0 - 51.0 % LAB HEMATOLOGY METHOD 01/13/2025 4:24 AM EDT [facility] Platelet Count 244 155 - 369 10*3/uL LAB HEMATOLOGY METHOD 01/13/2025 4:24 AM EDT [facility] MCV 91 79 - 98 fL LAB HEMATOLOGY METHOD 01/13/2025 4:24 AM EDT [facility] MCH 29.5 26.0 - 32.0 pg LAB HEMATOLOGY METHOD 01/13/2025 4:24 AM EDT [facility] MCHC 32.4 30.7 - 35.5 g/dL LAB HEMATOLOGY METHOD 01/13/2025 4:24 AM EDT [facility] RDW 13.2 11.5 - 14.5 % LAB HEMATOLOGY METHOD 01/13/2025 4:24 AM EDT [facility] MPV 8.8 8.8 - 12.5 fL LAB HEMATOLOGY METHOD 01/13/2025 4:24 AM EDT [facility] nRBC 0.0 <=0.0 per 100 WBCs LAB HEMATOLOGY METHOD 01/13/2025 4:24 AM EDT [facility] Blood Venous blood specimen / Unknown Venipuncture / Unknown 01/13/2025 3:37 AM EDT 01/13/2025 4:17 AM EDT Farhad Castillo MD LAB BLOOD ORDERABLES Final Result [facility] [address] [place] [address] * (ABNORMAL) POCT glucose meter (01/12/2025 7:26 [...] Comment 01/12/2025 7:28 PM EDT [facility] Sprinkler Driver ID Niurka Taylor 01/12/2025 7:28 PM EDT [facility] Device ID [id number] 01/12/2025 7:28 PM EDT [facility] Specimen Type POC Capillary 01/12/2025 7:28 PM EDT [facility] Blood Capillary blood specimen / Unknown 01/12/2025 7:26 PM EDT 01/12/2025 7:28 PM EDT Farhad Castillo MD LAB POINT OF CARE TEST DOCKED DEVICE UNSOLICITED RESULTS Final Result Performing Organization Address City/[facility]/ZIP Co de Phone Number [facility] [address] [place] [address] * (ABNORMAL) POCT glucose meter (01/12/2025 4:09 PM EDT) Pathologist [facility] POCT Glucose 157(H) 74 - 99 mg/dL [...] for testing. Comment 01/12/2025 4:11 PM EDT [facility] Sprinkler Driver ID Vita Holder 01/12/2025 4:11 PM EDT [facility] Device ID [id number] 01/12/2025 4:11 PM EDT [facility] Specimen Type POC Capillary 01/12/2025 4:11 PM EDT [facility] Blood Capillary blood specimen / Unknown 01/12/2025 4:09 PM EDT 01/12/2025 4:11 PM EDT Farhad Castillo MD LAB POINT OF CARE TEST DOCKED DEVICE UNSOLICITED RESULTS Final Result Performing Organization Address City/[facility] Co de Phone Number [facility] [address] [place] [address] * (ABNORMAL) POCT glucose meter (01/12/2025 11:54 AM EDT) [facility] POCT Glucose 181(H) 74 - 99 mg/dL [...] 01/12/2025 11:56 AM EDT [facility] Sprinkler Driver ID Vita Holder 01/12/2025 11:56 AM EDT [facility] Device ID [id number] 01/12/2025 11:56 AM EDT [facility] Specimen Type POC Capillary 01/12/2025 11:56 AM EDT [facility] Blood Capillary blood specimen / Unknown 01/12/2025 11:54 AM EDT 01/12/2025 11:56 AM EDT Farhad Castillo MD LAB POINT OF CARE TEST DOCKED DEVICE UNSOLICITED RESULTS Final Result Performing Organization Address City/[facility]/ZIP Co de Phone Number [facility]ARE [facility] [address] [place] [address] * (ABNORMAL) POCT glucose meter (01/12/2025 8:08 [...] Comment 01/12/2025 8:10 AM EDT [facility] Sprinkler Driver ID Vita Holder 01/12/2025 8:10 AM EDT [facility] Device ID [id number] 01/12/2025 8:10 AM EDT [facility] Specimen Type POC Capillary 01/12/2025 8:10 AM EDT [facility] Blood Capillary blood specimen / Unknown 01/12/2025 8:08 AM EDT 01/12/2025 8:10 AM EDT Farhad Castillo MD LAB POINT OF CARE TEST DOCKED DEVICE UNSOLICITED RESULTS Final Result Performing Organization Address City/[facility]/ZIP Co de Phone Number [facility] [address] [place] [address] * Phosphorus (01/12/2025 3:39 AM EDT) Phosphorus, Plasma 3.1 2.5 - 4.5 mg/dL 01/12/2025 4:34 AM EDT [facility] Blood Venous blood specimen / Unknown Venipuncture / Unknown 01/12/2025 3:39 AM EDT 01/12/2025 4:06 AM EDT us Farhad Castillo MD LAB BLOOD ORDERABLES Final Result Performing Organization Address City/[facility]/ZIP Co de Phone Number [facility] [address] [place] [address] * Magnesium (01/12/2025 3:39 AM EDT) Magnesium, Plasma 1.9 1.9 - 2.4 mg/dL 01/12/2025 4:34 AM EDT [facility] Blood Venous blood specimen / Unknown Venipuncture / Unknown 01/12/2025 3:39 AM EDT 01/12/2025 4:06 AM EDT us Farhad Castillo MD LAB BLOOD ORDERABLES Final Result Performing Organization Address City/[facility]/ZIP Co de Phone Number [facility] [address] [place] [address] * (ABNORMAL) Comprehensive metabolic panel (01/12/2025 3:39 AM EDT) Glucose, Plasma 139(H) 74 - 99 mg/dL 01/12/2025 4:34 AM EDT [facility] BUN, Plasma 7(L) 8 - 23 mg/dL 01/12/2025 4:34 AM EDT [facility] Creatinine, Plasma 0.77 0.70 - 1.20 mg/dL 01/12/2025 4:34 AM EDT [facility] BUN/Creatinine Ratio 9 01/12/2025 4:34 AM EDT [facility] Sodium, Plasma 137 136 - 145 mmol/L 01/12/2025 4:34 AM EDT [facility] Potassium, Plasma 3.7 3.6 - 4.9 mmol/L 01/12/2025 4:34 AM EDT [facility] Chloride, Plasma 105 97 - 107 mmol/L 01/12/2025 4:34 AM EDT [facility] CO2, Plasma 23 22 - 29 mmol/L 01/12/2025 4:34 AM EDT [facility] Anion Gap 9 6 - 16 mmol/L 01/12/2025 4:34 AM EDT [facility] Total Calcium, Plasma 8.4(L) 8.9 - 10.2 mg/dL 01/12/2025 4:34 AM EDT [facility] Total Protein 5.5(L) 6.3 - 7.9 g/dL 01/12/2025 4:34 AM EDT [facility] Albumin, Plasma 2.7(L) 3.5 - 5.2 g/dL 01/12/2025 4:34 AM EDT [facility] AST, Plasma 22 10 - 50 U/L 01/12/2025 4:34 AM EDT [facility] ALT, Plasma 16 10 - 50 U/L 01/12/2025 4:34 AM EDT [facility] Alkaline Phosphatase, Plasma 65 40 - 115 U/L 01/12/2025 4:34 AM EDT [facility] Total Bilirubin, Plasma 0.4 0.2 - 1.1 mg/dL 01/12/2025 4:34 AM EDT [facility] eGFRcr 102.5 mL/min/1.7 3m*2 01/12/2025 4:34 AM EDT [facility] Comment:Reported eGFRcr in m L/min/1.73m2 is based the CKD-EPI 2020 equation that does not use a race coefficient. Blood Venous blood specimen / Unknown Venipuncture / Unknown 01/12/2025 3:39 AM EDT 01/12/2025 4:06 AM EDT us Farhad Castillo MD LAB BLOOD ORDERABLES Final Result [facility] [address] [place] [address] * (ABNORMAL) CBC W/O Differential (01/12/2025 3:39 AM EDT) WBC Count 10.27 3.70 - 10.30 10*3/uL LAB HEMATOLOGY METHOD 01/12/2025 4:19 AM EDT [facility] RBC Count 3.40(L) 4.60 - 6.10 10*6/uL LAB HEMATOLOGY METHOD 01/12/2025 4:19 AM EDT [facility] HGB 10.2(L) 13.7 - 17.5 g/dL LAB HEMATOLOGY METHOD 01/12/2025 4:19 AM EDT [facility] HCT 31.0(L) 40.0 - 51.0 % LAB HEMATOLOGY METHOD 01/12/2025 4:19 AM EDT [facility] Platelet Count 250 155 - 369 10*3/uL LAB HEMATOLOGY METHOD 01/12/2025 4:19 AM EDT [facility] MCV 91 79 - 98 fL LAB HEMATOLOGY METHOD 01/12/2025 4:19 AM EDT [facility] MCH 30.0 26.0 - 32.0 pg LAB HEMATOLOGY METHOD 01/12/2025 4:19 AM EDT [facility] MCHC 32.9 30.7 - 35.5 g/dL LAB HEMATOLOGY METHOD 01/12/2025 4:19 AM EDT [facility] RDW 13.3 11.5 - 14.5 % LAB HEMATOLOGY METHOD 01/12/2025 4:19 AM EDT [facility] MPV 8.7(L) 8.8 - 12.5 fL LAB HEMATOLOGY METHOD 01/12/2025 4:19 AM EDT [facility] nRBC 0.0 <=0.0 per 100 WBCs LAB HEMATOLOGY METHOD 01/12/2025 4:19 AM EDT [facility] Blood Venous blood specimen / Unknown Venipuncture / Unknown 01/12/2025 3:39 AM EDT 01/12/2025 4:07 AM EDT us Farhad Castillo MD LAB BLOOD ORDERABLES Final Result [facility] [address] [place] [address] * (ABNORMAL) POCT glucose meter (01/11/2025 7:57 PM EDT) Pathologist [facility] POCT Glucose 146(H) 74 - 99 mg/dL [...] for testing. Comment 01/11/2025 7:59 PM EDT [facility] Sprinkler Driver ID Bere Wheeler 025 7:59 PM EDT [facility] Device ID [id number] 01/11/2025 7:59 PM EDT [facility] Specimen Type POC Capillary 01/11/2025 7:59 PM EDT [facility] Blood Capillary blood specimen / Unknown 01/11/2025 7:57 PM EDT 01/11/2025 7:59 PM EDT us Farhad Castillo MD LAB POINT OF CARE TEST DOCKED DEVICE UNSOLICITED RESULTS Final Result Performing Organization Address City/State/[facility] Co de Phone Number [facility] [address] [place] [address] * (ABNORMAL) POCT glucose meter (01/11/2025 4:42 PM EDT) Pathologist [facility] POCT Glucose 140(H) 74 - 99 mg/dL [...] 01/11/2025 4:45 PM EDT [facility] Sprinkler Driver ID Domenica Hdz 01/11/2025 4:45 PM EDT [facility] Device ID [id number] 01/11/2025 4:45 PM EDT [facility] Specimen Type POC Capillary 01/11/2025 4:45 PM EDT [facility] Blood Capillary blood specimen / Unknown 01/11/2025 4:42 PM EDT 01/11/2025 4:45 PM EDT Farhad Castillo MD LAB POINT OF CARE TEST DOCKED DEVICE UNSOLICITED RESULTS Final Result Performing Organization Address City/[facility]/ZIP Co de Phone Number [facility]ALTHCARE [facility] [address] [place] [address] * (ABNORMAL) POCT glucose meter (01/11/2025 11:33 [...] for testing. Comment 01/11/2025 11:38 AM EDT [facility]ALTHCARE [facility] Sprinkler Driver ID Domenica Hdz 01/11/2025 11:38 AM EDT [facility]ALTH[facility]ARE LAB Device ID [id number] 01/11/2025 11:38 AM EDT HEALTHCARE LAB Specimen Type POC Capillary 01/11/2025 11:38 AM EDT [facility] Blood Capillary blood specimen / Unknown 01/11/2025 11:33 AM EDT 01/11/2025 11:38 AM EDT Farhad Castillo MD LAB POINT OF CARE TEST DOCKED DEVICE UNSOLICITED RESULTS Final Result [facility] [address] [place] [address] * (ABNORMAL) POCT glucose meter (01/11/2025 9:01 [...] Comment 01/11/2025 9:09 AM EDT [facility]ALTHCARE LAB Sprinkler Driver ID Domenica Hdz 01/11/2025 9:09 AM EDT HEALTHCARE LAB Device ID [id number] 01/11/2025 9:09 AM EDT [facility]ALTHCARE LAB Specimen Type POC Capillary 01/11/2025 9:09 AM EDT [facility] Blood Capillary blood specimen / Unknown 01/11/2025 9:01 AM EDT 01/11/2025 9:09 AM EDT us Farhad Castillo MD LAB POINT OF CARE TEST DOCKED DEVICE UNSOLICITED RESULTS Final Result Performing Organization Address City/State/[facility] Co de Phone Number [facility]ALTHCARE LAB [address] [place] [address] * (ABNORMAL) POCT glucose meter (01/11/2025 5:37 [...] Comment 01/11/2025 5:39 AM EDT [facility]ARE LAB Sprinkler Driver ID Bere Wheeler 025 5:39 AM EDT HEALTHCARE LAB Device ID [id number] 01/11/2025 5:39 AM EDT HEALTHCARE LAB Specimen Type POC Capillary 01/11/2025 5:39 AM EDT [facility] Blood Capillary blood specimen / Unknown 01/11/2025 5:37 AM EDT 01/11/2025 5:39 AM EDT us Farhad Castillo MD LAB POINT OF CARE TEST DOCKED DEVICE UNSOLICITED RESULTS Final Result Performing Organization Address City/[facility]/ZIP Co de Phone Number [facility] [address] [place] [address] * Phosphorus (01/11/2025 3:49 AM EDT) Phosphorus, Plasma 3.4 2.5 - 4.5 mg/dL 01/11/2025 4:49 AM EDT [facility] Blood Venous blood specimen / Unknown Venipuncture / Unknown 01/11/2025 3:49 AM EDT 01/11/2025 4:19 AM EDT us Farhad Castillo MD LAB BLOOD ORDERABLES Final Result Performing Organization Address City/[facility]/ZIP Co de Phone Number [facility] [address] [place] [address] * Magnesium (01/11/2025 3:49 AM EDT) Magnesium, Plasma 1.9 1.9 - 2.4 mg/dL 01/11/2025 4:49 AM EDT [facility] Blood Venous blood specimen / Unknown Venipuncture / Unknown 01/11/2025 3:49 AM EDT 01/11/2025 4:19 AM EDT us Farhad Castillo MD LAB BLOOD ORDERABLES Final Result Performing Organization Address City/[facility]/ZIP Co de Phone Number [facility] [address] [place] [address] * (ABNORMAL) Comprehensive metabolic panel (01/11/2025 3:49 AM EDT) Glucose, Plasma 105(H) 74 - 99 mg/dL 01/11/2025 4:49 AM EDT [facility] BUN, Plasma 8 8 - 23 mg/dL 01/11/2025 4:49 AM EDT [facility] Creatinine, Plasma 0.75 0.70 - 1.20 mg/dL 01/11/2025 4:49 AM EDT [facility] BUN/Creatinine Ratio 11 01/11/2025 4:49 AM EDT [facility] Sodium, Plasma 136 136 - 145 mmol/L 01/11/2025 4:49 AM EDT [facility] Potassium, Plasma 3.6 3.6 - 4.9 mmol/L 01/11/2025 4:49 AM EDT [facility] Chloride, Plasma 103 97 - 107 mmol/L 01/11/2025 4:49 AM EDT [facility] CO2, Plasma 23 22 - 29 mmol/L 01/11/2025 4:49 AM EDT [facility] Anion Gap 10 6 - 16 mmol/L 01/11/2025 4:49 AM EDT [facility] Total Calcium, Plasma 8.6(L) 8.9 - 10.2 mg/dL 01/11/2025 4:49 AM EDT [facility] Total Protein 5.8(L) 6.3 - 7.9 g/dL 01/11/2025 4:49 AM EDT [facility] Albumin, Plasma 2.7(L) 3.5 - 5.2 g/dL 01/11/2025 4:49 AM EDT [facility] AST, Plasma 29 10 - 50 U/L 01/11/2025 4:49 AM EDT [facility] ALT, Plasma 25 10 - 50 U/L 01/11/2025 4:49 AM EDT [facility] Alkaline Phosphatase, Plasma 66 40 - 115 U/L 01/11/2025 4:49 AM EDT [facility] Total Bilirubin, Plasma 0.4 0.2 - 1.1 mg/dL 01/11/2025 4:49 AM EDT [facility] eGFRcr 103.3 mL/min/1.7 3m*2 01/11/2025 4:49 AM EDT [facility] Comment:Reported eGFRcr in m L/min/1.73m2 is based the CKD-EPI 2020 equation that does not use a race coefficient. Blood Venous blood specimen / Unknown Venipuncture / Unknown 01/11/2025 3:49 AM EDT 01/11/2025 4:19 AM EDT Farhad Castillo MD LAB BLOOD ORDERABLES Final Result [facility] [address] [place] [address] * (ABNORMAL) CBC W/O Differential (01/11/2025 3:49 AM EDT) WBC Count 10.73(H) 3.70 - 10.30 10*3/uL LAB HEMATOLOGY METHOD 01/11/2025 4:32 AM EDT [facility] RBC Count 3.40(L) 4.60 - 6.10 10*6/uL LAB HEMATOLOGY METHOD 01/11/2025 4:32 AM EDT [facility] HGB 10.3(L) 13.7 - 17.5 g/dL LAB HEMATOLOGY METHOD 01/11/2025 4:32 AM EDT [facility] HCT 31.1(L) 40.0 - 51.0 % LAB HEMATOLOGY METHOD 01/11/2025 4:32 AM EDT [facility] Platelet Count 254 155 - 369 10*3/uL LAB HEMATOLOGY METHOD 01/11/2025 4:32 AM EDT [facility] MCV 92 79 - 98 fL LAB HEMATOLOGY METHOD 01/11/2025 4:32 AM EDT [facility] MCH 30.3 26.0 - 32.0 pg LAB HEMATOLOGY METHOD 01/11/2025 4:32 AM EDT [facility] MCHC 33.1 30.7 - 35.5 g/dL LAB HEMATOLOGY METHOD 01/11/2025 4:32 AM EDT [facility] RDW 13.2 11.5 - 14.5 % LAB HEMATOLOGY METHOD 01/11/2025 4:32 AM EDT [facility] MPV 8.7(L) 8.8 - 12.5 fL LAB HEMATOLOGY METHOD 01/11/2025 4:32 AM EDT [facility] nRBC 0.0 <=0.0 per 100 WBCs LAB HEMATOLOGY METHOD 01/11/2025 4:32 AM EDT [facility] Blood Venous blood specimen / Unknown Venipuncture / Unknown 01/11/2025 3:49 AM EDT 01/11/2025 4:20 AM EDT Farhad Castillo MD LAB BLOOD ORDERABLES Final Result Performing Organization Address City/[facility]/ZIP Co de Phone Number [facility] [address] [place] [address] * (ABNORMAL) POCT glucose meter (01/11/2025 1:02 [...] for testing. Comment 01/11/2025 1:04 AM EDT [facility] Sprinkler Driver ID Bere Wheeler 025 1:04 AM EDT [facility] Device ID [id number] 01/11/2025 1:04 AM EDT [facility] Specimen Type POC Capillary 01/11/2025 1:04 AM EDT [facility] Blood Capillary blood specimen / Unknown 01/11/2025 1:02 AM EDT 01/11/2025 1:04 AM EDT us Farhad Castillo MD LAB POINT OF CARE TEST DOCKED DEVICE UNSOLICITED RESULTS Final Result Performing Organization Address City/[facility] Co de Phone Number [facility]ALTHCARE LAB [address] [place] [address] * POCT glucose meter (01/11/2025 12:34 AM [...] Comment 01/11/2025 12:36 AM EDT [facility]ALTHCARE LAB Sprinkler Driver ID Bere Wheeler 025 12:36 AM EDT HEALTHCARE LAB Device ID [id number] 01/11/2025 12:36 AM EDT [facility]ARE LAB Specimen Type POC Capillary 01/11/2025 12:36 AM EDT [facility] Blood Capillary blood specimen / Unknown 01/11/2025 12:34 AM EDT 01/11/2025 12:36 AM EDT Farhad Castillo MD LAB POINT OF CARE TEST DOCKED DEVICE UNSOLICITED RESULTS Final Result Performing Organization Address City/[facility]/ZIP Co de Phone Number [facility]ALTH[facility]ARE [facility] [address] [place] [address] * POCT glucose meter (01/10/2025 11:35 PM EDT) [facility] POCT Glucose 90 74 - 99 mg/dL [...] Comment 01/10/2025 11:37 PM EDT HEALTHCARE LAB Sprinkler Driver ID Bere Wheeler 025 11:37 PM EDT HEALTHCARE LAB Device ID [id number] 01/10/2025 11:37 PM EDT [facility]CARE LAB Specimen Type POC Capillary 01/10/2025 11:37 PM EDT [facility] Blood Capillary blood specimen / Unknown 01/10/2025 11:35 PM EDT 01/10/2025 11:37 PM EDT us Farhad Castillo MD LAB POINT OF CARE TEST DOCKED DEVICE UNSOLICITED RESULTS Final Result Performing Organization Address City/[facility]/ZIP Co de Phone Number [facility]ARE [facility] [address] [place] [address] * (ABNORMAL) POCT glucose meter (01/10/2025 5:12 PM EDT) [facility] POCT Glucose 125(H) 74 - 99 mg/dL [...] for testing. Comment 01/10/2025 5:14 PM EDT [facility] Sprinkler Driver ID Vita Holder 01/10/2025 5:14 PM EDT HEALTHCARE LAB Device ID [id number] 01/10/2025 5:14 PM EDT [facility]ARE [facility] Specimen Type POC Capillary 01/10/2025 5:14 PM EDT [facility] Blood Capillary blood specimen / Unknown 01/10/2025 5:12 PM EDT 01/10/2025 5:14 PM EDT Farhad Castillo MD LAB POINT OF CARE TEST DOCKED DEVICE UNSOLICITED RESULTS Final Result Performing Organization Address City/State/[facility] Co de Phone Number [facility]ARE [facility] [address] [place] [address] * POCT glucose meter (01/10/2025 11:26 AM EDT) [facility] POCT Glucose 96 74 - 99 mg/dL [...] 01/10/2025 11:28 AM EDT [facility] Sprinkler Driver ID Vita Holder 01/10/2025 11:28 AM EDT HEALTHCARE LAB Device ID [id number] 01/10/2025 11:28 AM EDT HEALTHCARE [facility] Specimen Type POC Capillary 01/10/2025 11:28 AM EDT [facility] Blood Capillary blood specimen / Unknown 01/10/2025 11:26 AM EDT 01/10/2025 11:28 AM EDT Farhad Castillo MD LAB POINT OF CARE TEST DOCKED DEVICE UNSOLICITED RESULTS Final Result Performing Organization Address City/State/[facility] Co de Phone Number HEALTHCARE LAB [address] [place] [address] * PERIPHERAL IV ([employer] LINK) (01/10/2025 10:19 AM EDT) Narrative Iliana Lee, RN - 01/10/2025 10:19 AM EDT Iliana [...] POCT glucose meter (01/10/2025 6:16 AM EDT) [facility] POCT Glucose 111(H) 74 - 99 mg/dL [...] 01/10/2025 6:18 AM EDT [facility] Sprinkler Driver ID Cookie Garcia 025 6:18 AM EDT HEALTHCARE LAB Device ID [id number] 01/10/2025 6:18 AM EDT [facility]ALTHCARE [facility] Specimen Type POC Capillary 01/10/2025 6:18 AM EDT [facility] Blood Capillary blood specimen / Unknown 01/10/2025 6:16 AM EDT 01/10/2025 6:18 AM EDT us Farhad Castillo MD LAB POINT OF CARE TEST DOCKED DEVICE UNSOLICITED RESULTS Final Result [facility] [address] [place] [address] * Phosphorus (01/10/2025 3:56 AM EDT) Phosphorus, Plasma 3.2 2.5 - 4.5 mg/dL 01/10/2025 4:34 AM EDT [facility] Blood Venous blood specimen / Unknown Venipuncture / Unknown 01/10/2025 3:56 AM EDT 01/10/2025 4:03 AM EDT us Farhad Castillo MD LAB BLOOD ORDERABLES Final Result [facility] [address] [place] [address] * Magnesium (01/10/2025 3:56 AM EDT) Magnesium, Plasma 2.1 1.9 - 2.4 mg/dL 01/10/2025 4:34 AM EDT [facility] Blood Venous blood specimen / Unknown Venipuncture / Unknown 01/10/2025 3:56 AM EDT 01/10/2025 4:03 AM EDT us Farhad Castillo MD LAB BLOOD ORDERABLES Final Result [facility] [address] [place] [address] * (ABNORMAL) Comprehensive metabolic panel (01/10/2025 3:56 AM EDT) Pathologist [facility] Glucose, Plasma 104(H) 74 - 99 mg/dL 01/10/2025 4:34 AM EDT [facility] BUN, Plasma 10 8 - 23 mg/dL 01/10/2025 4:34 AM EDT [facility] Creatinine, Plasma 0.78 0.70 - 1.20 mg/dL 01/10/2025 4:34 AM EDT [facility] BUN/Creatinine Ratio 13 01/10/2025 4:34 AM EDT [facility] Sodium, Plasma 136 136 - 145 mmol/L 01/10/2025 4:34 AM EDT [facility] Potassium, Plasma 4.0 3.6 - 4.9 mmol/L 01/10/2025 4:34 AM EDT [facility] Chloride, Plasma 102 97 - 107 mmol/L 01/10/2025 4:34 AM EDT [facility] CO2, Plasma 23 22 - 29 mmol/L 01/10/2025 4:34 AM EDT [facility] Anion Gap 11 6 - 16 mmol/L 01/10/2025 4:34 AM EDT [facility] Total Calcium, Plasma 8.3(L) 8.9 - 10.2 mg/dL 01/10/2025 4:34 AM EDT [facility] Total Protein 5.7(L) 6.3 - 7.9 g/dL 01/10/2025 4:34 AM EDT [facility] Albumin, Plasma 2.6(L) 3.5 - 5.2 g/dL 01/10/2025 4:34 AM EDT [facility] AST, Plasma 31 10 - 50 U/L 01/10/2025 4:34 AM EDT [facility] ALT, Plasma 35 10 - 50 U/L 01/10/2025 4:34 AM EDT [facility] Alkaline Phosphatase, Plasma 61 40 - 115 U/L 01/10/2025 4:34 AM EDT [facility] Total Bilirubin, Plasma 0.5 0.2 - 1.1 mg/dL 01/10/2025 4:34 AM EDT [facility] eGFRcr 102.1 mL/min/1.7 3m*2 01/10/2025 4:34 AM EDT [facility] Comment:Reported eGFRcr in m L/min/1.73m2 is based the CKD-EPI 2020 equation that does not use a race coefficient. Blood Venous blood specimen / Unknown Venipuncture / Unknown 01/10/2025 3:56 AM EDT 01/10/2025 4:03 AM EDT Farhad Castillo MD LAB BLOOD ORDERABLES Final Result [facility] [address] [place] [address] * (ABNORMAL) CBC W/O Differential (01/10/2025 3:56 AM EDT) WBC Count 12.33(H) 3.70 - 10.30 10*3/uL LAB HEMATOLOGY METHOD 01/10/2025 4:18 AM EDT [facility] RBC Count 3.60(L) 4.60 - 6.10 10*6/uL LAB HEMATOLOGY METHOD 01/10/2025 4:18 AM EDT [facility] HGB 10.6(L) 13.7 - 17.5 g/dL LAB HEMATOLOGY METHOD 01/10/2025 4:18 AM EDT [facility] HCT 33.1(L) 40.0 - 51.0 % LAB HEMATOLOGY METHOD 01/10/2025 4:18 AM EDT [facility] Platelet Count 244 155 - 369 10*3/uL LAB HEMATOLOGY METHOD 01/10/2025 4:18 AM EDT [facility] MCV 92 79 - 98 fL LAB HEMATOLOGY METHOD 01/10/2025 4:18 AM EDT [facility] MCH 29.4 26.0 - 32.0 pg LAB HEMATOLOGY METHOD 01/10/2025 4:18 AM EDT [facility] MCHC 32.0 30.7 - 35.5 g/dL LAB HEMATOLOGY METHOD 01/10/2025 4:18 AM EDT [facility] RDW 13.3 11.5 - 14.5 % LAB HEMATOLOGY METHOD 01/10/2025 4:18 AM EDT [facility] MPV 9.1 8.8 - 12.5 fL LAB HEMATOLOGY METHOD 01/10/2025 4:18 AM EDT [facility] nRBC 0.0 <=0.0 per 100 WBCs LAB HEMATOLOGY METHOD 01/10/2025 4:18 AM EDT [facility] Blood Venous blood specimen / Unknown Venipuncture / Unknown 01/10/2025 3:56 AM EDT 01/10/2025 4:03 AM EDT Farhad Castillo MD LAB BLOOD ORDERABLES Final Result [facility] [address] [place] [address] * (ABNORMAL) POCT glucose meter (01/09/2025 11:45 PM EDT) [facility] POCT Glucose 131(H) 74 - 99 mg/dL 01/09/2025 [...] Comment 01/09/2025 11:52 PM EDT HEALTHCARE LAB Sprinkler Driver ID Cookie Garcia 025 11:52 PM EDT HEALTHCARE LAB Device ID [id number] 01/09/2025 11:52 PM EDT [facility]ALTH[facility]ARE LAB Specimen Type POC Capillary 01/09/2025 11:52 PM EDT [facility] Blood Capillary blood specimen / Unknown 01/09/2025 11:45 PM EDT 01/09/2025 11:52 PM EDT us Farhad Castillo MD LAB POINT OF CARE TEST DOCKED DEVICE UNSOLICITED RESULTS Final Result Performing Organization Address City/[facility]/ZIP Co de Phone Number HEALTHCARE [facility] [address] [place] [address] * (ABNORMAL) POCT glucose meter (01/09/2025 5:44 PM EDT) [facility] POCT Glucose 126(H) 74 - 99 mg/dL [...] for testing. Comment 01/09/2025 5:46 PM EDT [facility] Sprinkler Driver ID Craa Adams Anitra 01/09/2025 5:46 PM EDT HEALTHCARE LAB Device ID [id number] 01/09/2025 5:46 PM EDT [facility]ALTH[facility]ARE LAB Specimen Type POC Capillary 01/09/2025 5:46 PM EDT [facility] Blood Capillary blood specimen / Unknown 01/09/2025 5:44 PM EDT 01/09/2025 5:46 PM EDT Farhad Castillo MD LAB POINT OF CARE TEST DOCKED DEVICE UNSOLICITED RESULTS Final Result Performing Organization Address City/State/[facility] Co de Phone Number [facility]ARE [facility] [address] [place] [address] * (ABNORMAL) POCT glucose meter (01/09/2025 11:55 AM EDT) [facility] POCT Glucose 119(H) 74 - 99 mg/dL [...] 01/09/2025 11:57 AM EDT [facility] Sprinkler Driver ID Cara Adams 01/09/2025 11:57 AM EDT [facility] Device ID [id number] 01/09/2025 11:57 AM EDT [facility] Specimen Type POC Capillary 01/09/2025 11:57 AM EDT [facility] Blood Capillary blood specimen / Unknown 01/09/2025 11:55 AM EDT 01/09/2025 11:57 AM EDT us Farhad Castillo MD LAB POINT OF CARE TEST DOCKED DEVICE UNSOLICITED RESULTS Final Result Performing Organization Address City/[facility]/ZIP Co de Phone Number [facility] [address] [place] [address] * (ABNORMAL) Phosphorus (01/09/2025 3:54 AM EDT) Phosphorus, Plasma 2.4(L) 2.5 - 4.5 mg/dL 01/09/2025 4:34 AM EDT [facility] Blood Venous blood specimen / Unknown Venipuncture / Unknown 01/09/2025 3:54 AM EDT 01/09/2025 3:59 AM EDT us Farhad Castillo MD LAB BLOOD ORDERABLES Final Result Performing Organization Address City/[facility]/ZIP Co de Phone Number [facility] [address] [place] [address] * (ABNORMAL) Magnesium (01/09/2025 3:54 AM EDT) Magnesium, Plasma 1.8(L) 1.9 - 2.4 mg/dL 01/09/2025 4:34 AM EDT [facility] Blood Venous blood specimen / Unknown Venipuncture / Unknown 01/09/2025 3:54 AM EDT 01/09/2025 3:59 AM EDT us Fahrad Castillo MD LAB BLOOD ORDERABLES Final Result [facility] [address] [place] [address] * (ABNORMAL) Comprehensive metabolic panel (01/09/2025 3:54 AM EDT) Glucose, Plasma 131(H) 74 - 99 mg/dL 01/09/2025 4:34 AM EDT [facility] BUN, Plasma 10 8 - 23 mg/dL 01/09/2025 4:34 AM EDT [facility] Creatinine, Plasma 0.79 0.70 - 1.20 mg/dL 01/09/2025 4:34 AM EDT [facility] BUN/Creatinine Ratio 13 01/09/2025 4:34 AM EDT [facility] Sodium, Plasma 134(L) 136 - 145 mmol/L 01/09/2025 4:34 AM EDT [facility] Potassium, Plasma 4.0 3.6 - 4.9 mmol/L 01/09/2025 4:34 AM EDT [facility] Chloride, Plasma 102 97 - 107 mmol/L 01/09/2025 4:34 AM EDT [facility] CO2, Plasma 24 22 - 29 mmol/L 01/09/2025 4:34 AM EDT [facility] Anion Gap 8 6 - 16 mmol/L 01/09/2025 4:34 AM EDT [facility] Total Calcium, Plasma 8.3(L) 8.9 - 10.2 mg/dL 01/09/2025 4:34 AM EDT [facility] Total Protein 5.5(L) 6.3 - 7.9 g/dL 01/09/2025 4:34 AM EDT [facility] Albumin, Plasma 2.8(L) 3.5 - 5.2 g/dL 01/09/2025 4:34 AM EDT [facility] AST, Plasma 50 10 - 50 U/L 01/09/2025 4:34 AM EDT [facility] ALT, Plasma 52(H) 10 - 50 U/L 01/09/2025 4:34 AM EDT [facility] Alkaline Phosphatase, Plasma 64 40 - 115 U/L 01/09/2025 4:34 AM EDT [facility] Total Bilirubin, Plasma 0.6 0.2 - 1.1 mg/dL 01/09/2025 4:34 AM EDT [facility] eGFRcr 101.7 mL/min/1.7 3m*2 01/09/2025 4:34 AM EDT [facility] Comment:Reported eGFRcr in m L/min/1.73m2 is based the CKD-EPI 2020 equation that does not use a race coefficient. Blood Venous blood specimen / Unknown Venipuncture / Unknown 01/09/2025 3:54 AM EDT 01/09/2025 3:59 AM EDT Farhad Castillo MD LAB BLOOD ORDERABLES Final Result [facility] [address] [place] [address] * (ABNORMAL) CBC W/O Differential (01/09/2025 3:54 AM EDT) WBC Count 14.81(H) 3.70 - 10.30 10*3/uL LAB HEMATOLOGY METHOD 01/09/2025 4:15 AM EDT [facility] RBC Count 3.53(L) 4.60 - 6.10 10*6/uL LAB HEMATOLOGY METHOD 01/09/2025 4:15 AM EDT [facility] HGB 10.5(L) 13.7 - 17.5 g/dL LAB HEMATOLOGY METHOD 01/09/2025 4:15 AM EDT [facility] HCT 32.5(L) 40.0 - 51.0 % LAB HEMATOLOGY METHOD 01/09/2025 4:15 AM EDT [facility] Platelet Count 211 155 - 369 10*3/uL LAB HEMATOLOGY METHOD 01/09/2025 4:15 AM EDT [facility] MCV 92 79 - 98 fL LAB HEMATOLOGY METHOD 01/09/2025 4:15 AM EDT [facility] MCH 29.7 26.0 - 32.0 pg LAB HEMATOLOGY METHOD 01/09/2025 4:15 AM EDT [facility] MCHC 32.3 30.7 - 35.5 g/dL LAB HEMATOLOGY METHOD 01/09/2025 4:15 AM EDT [facility] RDW 13.4 11.5 - 14.5 % LAB HEMATOLOGY METHOD 01/09/2025 4:15 AM EDT [facility] MPV 8.9 8.8 - 12.5 fL LAB HEMATOLOGY METHOD 01/09/2025 4:15 AM EDT [facility] nRBC 0.0 <=0.0 per 100 WBCs LAB HEMATOLOGY METHOD 01/09/2025 4:15 AM EDT [facility] Blood Venous blood specimen / Unknown Venipuncture / Unknown 01/09/2025 3:54 AM EDT 01/09/2025 4:02 AM EDT Farhad Castillo MD LAB BLOOD ORDERABLES Final Result Performing Organization Address City/[facility]/ZIP Co de Phone Number [facility] [address] [place] [address] * (ABNORMAL) POCT glucose meter (01/08/2025 11:55 [...] Comment 01/08/2025 11:57 PM EDT [facility]ARE [facility] Sprinkler Driver ID Cookie Garcia 025 11:57 PM EDT [facility]ALTH[facility]ARE [facility] Device ID [id number] 01/08/2025 11:57 PM EDT [facility] Specimen Type POC Capillary 01/08/2025 11:57 PM EDT [facility] Blood Capillary blood specimen / Unknown 01/08/2025 11:55 PM EDT 01/08/2025 11:57 PM EDT Farhad Castillo MD LAB POINT OF CARE TEST DOCKED DEVICE UNSOLICITED RESULTS Final Result Performing Organization Address City/[facility]/ZIP Co de Phone Number [facility] [address] [place] [address] * (ABNORMAL) POCT glucose meter (01/08/2025 6:21 [...] 01/08/2025 6:22 PM EDT [facility] Sprinkler Driver ID Nancy Hughes 01/08/2025 6:22 PM EDT [facility] Device ID [id number] 01/08/2025 6:22 PM EDT [facility] Specimen Type POC Capillary 01/08/2025 6:22 PM EDT [facility] Blood Capillary blood specimen / Unknown 01/08/2025 6:21 PM EDT 01/08/2025 6:22 PM EDT Farhad Castillo MD LAB POINT OF CARE TEST DOCKED DEVICE UNSOLICITED RESULTS Final Result [facility] [address] [place] [address] * (ABNORMAL) POCT glucose meter (01/08/2025 2:21 PM EDT) [facility] POCT Glucose 197(H) 74 - 99 mg/dL [...] 01/08/2025 2:23 PM EDT [facility] Sprinkler Driver ID Mayra Jefferson 01/08/2025 2:23 PM EDT [facility] Device ID [id number] 01/08/2025 2:23 PM EDT [facility] Specimen Type POC Capillary 01/08/2025 2:23 PM EDT [facility] Blood Capillary blood specimen / Unknown 01/08/2025 2:21 PM EDT 01/08/2025 2:23 PM EDT us Farhad Castillo MD LAB POINT OF CARE TEST DOCKED DEVICE UNSOLICITED RESULTS Final Result [facility] [address] [place] [address] * XR Abdomen 1 View (01/08/2025 10:12 [...] abdomen. COMPARISON: Abdominal radiograph 01/08/2025 FINDINGS: Limited [id number] abdominal radiograph for the purpose of locating tube position. The tip and side port of the nasogastric tube are within the proximal stomach. Procedure Note Kareem Marie MD - 01/08/2025 CLINICAL INDICATION: NGT confirmation TECHNIQUE: Supine radiograph of the abdomen. COMPARISON: Abdominal radiograph 01/08/2025 FINDINGS: Limited [id number] abdominal radiograph for the purpose of locatingtube [...] on 01/08/2025 11:54 AM us Paulo Jay CUTTER IN IMG XR PROCEDURES Final Resul t * [...] Comment 01/08/2025 8:34 AM EDT [facility] Sprinkler Driver ID Mayra Jefferson 01/08/2025 8:34 AM EDT [facility] Device ID [id number] 01/08/2025 8:34 AM EDT [facility] Specimen Type POC Capillary 01/08/2025 8:34 AM EDT [employer] [facility] Blood Capillary blood specimen / Unknown 01/08/2025 8:32 AM EDT 01/08/2025 8:34 AM EDT Farhad Castillo MD LAB POINT OF CARE TEST DOCKED DEVICE UNSOLICITED RESULTS Final Result Performing Organization Address City/State/[facility] Co de Phone Number [facility] [address] [place] [address] * XR Abdomen 1 View (01/08/2025 8:20 [...] MD on 01/08/2025 9:19 AM Paulo Jay CUTTER IN IMG XR PROCEDURES Final Resul t * (ABNORMAL) Phosphorus (01/08/2025 3:05 AM EDT) Phosphorus, Plasma 2.3(L) 2.5 - 4.5 mg/dL 01/08/2025 3:54 AM EDT [facility] Blood Venous blood specimen / Unknown Venipuncture / Unknown 01/08/2025 3:05 AM EDT 01/08/2025 3:14 AM EDT Farhad Castillo MD LAB BLOOD ORDERABLES Final Result [facility] [address] [place] [address] * Magnesium (01/08/2025 3:05 AM EDT) Magnesium, Plasma 2.1 1.9 - 2.4 mg/dL 01/08/2025 3:54 AM EDT [facility] Blood Venous blood specimen / Unknown Venipuncture / Unknown 01/08/2025 3:05 AM EDT 01/08/2025 3:14 AM EDT Farhad Castillo MD LAB BLOOD ORDERABLES Final Result Performing Organization Address [facility] Co de Phone Number [facility] [address] [place] [address] * (ABNORMAL) Comprehensive metabolic panel (01/08/2025 3:05 AM EDT) Glucose, Plasma 188(H) 74 - 99 mg/dL 01/08/2025 3:54 AM EDT [facility] BUN, Plasma 13 8 - 23 mg/dL 01/08/2025 3:54 AM EDT [facility] Creatinine, Plasma 0.79 0.70 - 1.20 mg/dL 01/08/2025 3:54 AM EDT [facility] BUN/Creatinine Ratio 16 01/08/2025 3:54 AM EDT [facility] Sodium, Plasma 137 136 - 145 mmol/L 01/08/2025 3:54 AM EDT [facility] Potassium, Plasma 4.0 3.6 - 4.9 mmol/L 01/08/2025 3:54 AM EDT [facility] Chloride, Plasma 103 97 - 107 mmol/L 01/08/2025 3:54 AM EDT [facility] CO2, Plasma 22 22 - 29 mmol/L 01/08/2025 3:54 AM EDT [facility] Anion Gap 12 6 - 16 mmol/L 01/08/2025 3:54 AM EDT [facility] Total Calcium, Plasma 8.4(L) 8.9 - 10.2 mg/dL 01/08/2025 3:54 AM EDT [facility] Total Protein 5.9(L) 6.3 - 7.9 g/dL 01/08/2025 3:54 AM EDT [facility] Albumin, Plasma 2.9(L) 3.5 - 5.2 g/dL 01/08/2025 3:54 AM EDT [facility] AST, Plasma 116(H) 10 - 50 U/L 01/08/2025 3:54 AM EDT [facility] ALT, Plasma 91(H) 10 - 50 U/L 01/08/2025 3:54 AM EDT [facility] Alkaline Phosphatase, Plasma 62 40 - 115 U/L 01/08/2025 3:54 AM EDT [facility] Total Bilirubin, Plasma 0.9 0.2 - 1.1 mg/dL 01/08/2025 3:54 AM EDT [facility] eGFRcr 101.7 mL/min/1.7 3m*2 01/08/2025 3:54 AM EDT [facility] Comment:Reported eGFRcr in m L/min/1.73m2 is based the CKD-EPI 2020 equation that does not use a race coefficient. Blood Venous blood specimen / Unknown Venipuncture / Unknown 01/08/2025 3:05 AM EDT 01/08/2025 3:14 AM EDT us Farhad Castillo MD LAB BLOOD ORDERABLES Final Result [facility] [address] [place] [address] * (ABNORMAL) CBC W/O Differential (01/08/2025 3:05 AM EDT) WBC Count 19.28(H) 3.70 - 10.30 10*3/uL LAB HEMATOLOGY METHOD 01/08/2025 3:25 AM EDT [facility] RBC Count 3.88(L) 4.60 - 6.10 10*6/uL LAB HEMATOLOGY METHOD 01/08/2025 3:25 AM EDT [facility] HGB 11.7(L) 13.7 - 17.5 g/dL LAB HEMATOLOGY METHOD 01/08/2025 3:25 AM EDT [facility] HCT 35.7(L) 40.0 - 51.0 % LAB HEMATOLOGY METHOD 01/08/2025 3:25 AM EDT [facility] Platelet Count 244 155 - 369 10*3/uL LAB HEMATOLOGY METHOD 01/08/2025 3:25 AM EDT [facility] MCV 92 79 - 98 fL LAB HEMATOLOGY METHOD 01/08/2025 3:25 AM EDT [facility] MCH 30.2 26.0 - 32.0 pg LAB HEMATOLOGY METHOD 01/08/2025 3:25 AM EDT [facility] MCHC 32.8 30.7 - 35.5 g/dL LAB HEMATOLOGY METHOD 01/08/2025 3:25 AM EDT [facility] RDW 13.7 11.5 - 14.5 % LAB HEMATOLOGY METHOD 01/08/2025 3:25 AM EDT [facility] MPV 9.2 8.8 - 12.5 fL LAB HEMATOLOGY METHOD 01/08/2025 3:25 AM EDT [facility] nRBC 0.0 <=0.0 per 100 WBCs LAB HEMATOLOGY METHOD 01/08/2025 3:25 AM EDT [facility] Blood Venous blood specimen / Unknown Venipuncture / Unknown 01/08/2025 3:05 AM EDT 01/08/2025 3:16 AM EDT us Farhad Castillo MD LAB BLOOD ORDERABLES Final Result [facility] [address] [place] [address] * (ABNORMAL) POCT glucose meter (01/08/2025 2:59 AM EDT) [facility] POCT Glucose 165(H) 74 - 99 mg/dL 01/08/2025 3:01 AM EDT [facility] Comment:Accuracy of a glucos e result [...] Comment 01/08/2025 3:01 AM EDT [facility] Sprinkler Driver ID Flor Glze 01/08/2025 3:01 AM EDT [facility] Device ID [id number] 01/08/2025 3:01 AM EDT [facility] Specimen Type POC Capillary 01/08/2025 3:01 AM EDT [facility] Blood Capillary blood specimen / Unknown 01/08/2025 2:59 AM EDT 01/08/2025 3:01 AM EDT Farhad Castillo MD LAB POINT OF CARE TEST DOCKED DEVICE UNSOLICITED RESULTS Final Result Performing Organization Address City/[facility] Co de Phone Number [facility] [address] [place] [address] * (ABNORMAL) POCT glucose meter (01/07/2025 8:31 PM EDT) [facility] POCT Glucose 243(H) 74 - 99 mg/dL [...] Comment 01/07/2025 8:32 PM EDT [facility] Sprinkler Driver ID Flor Glez 01/07/2025 8:32 PM EDT [facility] Device ID [id number] 01/07/2025 8:32 PM EDT [facility] Specimen Type POC Capillary 01/07/2025 8:32 PM EDT [facility] Blood Capillary blood specimen / Unknown 01/07/2025 8:31 PM EDT 01/07/2025 8:32 PM EDT us Farhad Castillo MD LAB POINT OF CARE TEST DOCKED DEVICE UNSOLICITED RESULTS Final Result Performing Organization Address City/[facility]/ZIP Co de Phone Number [facility] [address] [place] [address] * (ABNORMAL) POCT glucose meter (01/07/2025 5:05 PM EDT) [facility] POCT Glucose 251(H) 74 - 99 mg/dL [...] Comment 01/07/2025 5:09 PM EDT [facility] Sprinkler Driver ID Myra Pete 01/08/20 5:09 PM EDT [facility] Device ID [id number] 01/07/2025 5:09 PM EDT [facility] Specimen Type POC Capillary 01/07/2025 5:09 PM EDT [facility] Blood Capillary blood specimen / Unknown 01/07/2025 5:05 PM EDT 01/07/2025 5:09 PM EDT Farhad Castillo MD LAB POINT OF CARE TEST DOCKED DEVICE UNSOLICITED RESULTS Final Result [facility] [address] [place] [address] * (ABNORMAL) POCT glucose meter (01/07/2025 12:22 PM EDT) [facility] POCT Glucose 300(H) 74 - 99 mg/dL [...] 01/07/2025 12:26 PM EDT [facility] Sprinkler Driver ID Myra Pete 01/08/20 12:26 PM EDT [facility] Device ID [id number] 01/07/2025 12:26 PM EDT [facility] Specimen Type POC Capillary 01/07/2025 12:26 PM EDT [facility] Blood Capillary blood specimen / Unknown 01/07/2025 12:22 PM EDT 01/07/2025 12:26 PM EDT Farhad Castillo MD LAB POINT OF CARE TEST DOCKED DEVICE UNSOLICITED RESULTS Final Result Performing Organization Address City/[facility]/ZIP Co de Phone Number [facility] [address] [place] [address] * (ABNORMAL) POCT glucose meter (01/07/2025 5:19 [...] Comment 01/07/2025 5:21 AM EDT [facility] Sprinkler Driver ID Bere Wheeler 025 5:21 AM EDT [facility] Device ID [id number] 01/07/2025 5:21 AM EDT [facility] Specimen Type POC Capillary 01/07/2025 5:21 AM EDT [facility] Blood Capillary blood specimen / Unknown 01/07/2025 5:19 AM EDT 01/07/2025 5:21 AM EDT Farhad Castillo MD LAB POINT OF CARE TEST DOCKED DEVICE UNSOLICITED RESULTS Final Result [facility] [address] [place] [address] * Phosphorus (01/07/2025 3:26 AM EDT) Phosphorus, Plasma 3.5 2.5 - 4.5 mg/dL 01/07/2025 4:18 AM EDT [facility] Blood Venous blood specimen / Unknown Venipuncture / Unknown 01/07/2025 3:26 AM EDT 01/07/2025 3:50 AM EDT us Farhad Castillo MD LAB BLOOD ORDERABLES Final Result Performing Organization Address City/[facility]/ZIP Co de Phone Number [facility] [address] [place] [address] * Magnesium (01/07/2025 3:26 AM EDT) Magnesium, Plasma 1.9 1.9 - 2.4 mg/dL 01/07/2025 4:18 AM EDT [facility] Blood Venous blood specimen / Unknown Venipuncture / Unknown 01/07/2025 3:26 AM EDT 01/07/2025 3:50 AM EDT us Farhad Castillo MD LAB BLOOD ORDERABLES Final Result Performing Organization Address City/[facility] Co de Phone Number [facility] [address] [place] [address] * (ABNORMAL) Comprehensive metabolic panel (01/07/2025 3:26 AM EDT) Glucose, Plasma 312(H) 74 - 99 mg/dL 01/07/2025 4:18 AM EDT [facility] BUN, Plasma 20 8 - 23 mg/dL 01/07/2025 4:18 AM EDT [facility] Creatinine, Plasma 0.93 0.70 - 1.20 mg/dL 01/07/2025 4:18 AM EDT [facility] BUN/Creatinine Ratio 22 01/07/2025 4:18 AM EDT [facility] Sodium, Plasma 137 136 - 145 mmol/L 01/07/2025 4:18 AM EDT [facility] Potassium, Plasma 4.9 3.6 - 4.9 mmol/L 01/07/2025 4:18 AM EDT [facility] Chloride, Plasma 104 97 - 107 mmol/L 01/07/2025 4:18 AM EDT [facility] CO2, Plasma 19(L) 22 - 29 mmol/L 01/07/2025 4:18 AM EDT [facility] Anion Gap 14 6 - 16 mmol/L 01/07/2025 4:18 AM EDT [facility] Total Calcium, Plasma 8.5(L) 8.9 - 10.2 mg/dL 01/07/2025 4:18 AM EDT [facility] Total Protein 6.2(L) 6.3 - 7.9 g/dL 01/07/2025 4:18 AM EDT [facility] Albumin, Plasma 3.3(L) 3.5 - 5.2 g/dL 01/07/2025 4:18 AM EDT [facility] AST, Plasma 284(H) 10 - 50 U/L 01/07/2025 4:18 AM EDT [facility] ALT, Plasma 125(H) 10 - 50 U/L 01/07/2025 4:18 AM EDT [facility] Alkaline Phosphatase, Plasma 69 40 - 115 U/L 01/07/2025 4:18 AM EDT [facility] Total Bilirubin, Plasma 0.8 0.2 - 1.1 mg/dL 01/07/2025 4:18 AM EDT [facility] eGFRcr 94.0 mL/min/1.7 3m*2 01/07/2025 4:18 AM EDT [facility] Comment:Reported eGFRcr in m L/min/1.73m2 is based the CKD-EPI 2020 equation that does not use a race coefficient. Blood Venous blood specimen / Unknown Venipuncture / Unknown 01/07/2025 3:26 AM EDT 01/07/2025 3:50 AM EDT us Farhad Castillo MD LAB BLOOD ORDERABLES Final Result [facility] [address] [place] [address] * (ABNORMAL) CBC W/O Differential (01/07/2025 3:26 AM EDT) WBC Count 18.29(H) 3.70 - 10.30 10*3/uL LAB HEMATOLOGY METHOD 01/07/2025 3:58 AM EDT [facility] RBC Count 4.42(L) 4.60 - 6.10 10*6/uL LAB HEMATOLOGY METHOD 01/07/2025 3:58 AM EDT [facility] HGB 13.1(L) 13.7 - 17.5 g/dL LAB HEMATOLOGY METHOD 01/07/2025 3:58 AM EDT [facility] HCT 40.0 40.0 - 51.0 % LAB HEMATOLOGY METHOD 01/07/2025 3:58 AM EDT [facility] Platelet Count 284 155 - 369 10*3/uL LAB HEMATOLOGY METHOD 01/07/2025 3:58 AM EDT [facility] MCV 91 79 - 98 fL LAB HEMATOLOGY METHOD 01/07/2025 3:58 AM EDT [facility] MCH 29.6 26.0 - 32.0 pg LAB HEMATOLOGY METHOD 01/07/2025 3:58 AM EDT [facility] MCHC 32.8 30.7 - 35.5 g/dL LAB HEMATOLOGY METHOD 01/07/2025 3:58 AM EDT [facility] RDW 13.5 11.5 - 14.5 % LAB HEMATOLOGY METHOD 01/07/2025 3:58 AM EDT [facility] MPV 9.2 8.8 - 12.5 fL LAB HEMATOLOGY METHOD 01/07/2025 3:58 AM EDT [facility] nRBC 0.0 <=0.0 per 100 WBCs LAB HEMATOLOGY METHOD 01/07/2025 3:58 AM EDT [facility] Blood Venous blood specimen / Unknown Venipuncture / Unknown 01/07/2025 3:26 AM EDT 01/07/2025 3:50 AM EDT us Farhad Castillo MD LAB BLOOD ORDERABLES Final Result [facility] [address] [place] [address] * (ABNORMAL) POCT glucose meter (01/06/2025 11:31 [...] Comment 01/06/2025 11:33 PM EDT [facility] Sprinkler Driver ID Bere Wheeler 025 11:33 PM EDT [facility] Device ID [id number] 01/06/2025 11:33 PM EDT [facility] Specimen Type POC Capillary 01/06/2025 11:33 PM EDT [facility] Blood Capillary blood specimen / Unknown 01/06/2025 11:31 PM EDT 01/06/2025 11:33 PM EDT us Farhad Castillo MD LAB POINT OF CARE TEST DOCKED DEVICE UNSOLICITED RESULTS Final Result [facility] [address] [place] [address] * (ABNORMAL) Blood gas panel, arterial (01/06/2025 5:03 PM EDT) pH, Arterial 7.35 7.31 - 7.42 LAB HEMATOLOGY METHOD 01/06/2025 5:09 PM EDT [facility] pCO2, Arterial 40 32 - 45 mmHg LAB HEMATOLOGY METHOD 01/06/2025 5:09 PM EDT [facility] pO2, Arterial 109 >80 mmHg LAB HEMATOLOGY METHOD 01/06/2025 5:09 PM EDT [facility] SO2, Measured, Arterial 97 94 - 98 % LAB HEMATOLOGY METHOD 01/06/2025 5:09 PM EDT [facility] Base Excess, Arterial -3.1(L) -2.0 - 3.0 mmol/L LAB HEMATOLOGY METHOD 01/06/2025 5:09 PM EDT [facility] Bicarbonate, Calculated, Arterial 22 22 - 26 mmol/L LAB HEMATOLOGY METHOD 01/06/2025 5:09 PM EDT [facility] Hematocrit, Whole Blood 39.4(L) 40.0 - 51.0 % LAB HEMATOLOGY METHOD 01/06/2025 5:09 PM EDT [facility] Sodium, Whole Blood 139 136 - 145 mmol/L LAB HEMATOLOGY METHOD 01/06/2025 5:09 PM EDT [facility] Potassium, Whole Blood 5.0(H) 3.6 - 4.9 mmol/L LAB HEMATOLOGY METHOD 01/06/2025 5:09 PM EDT [facility] Chloride, Whole Blood 108(H) 97 - 107 mmol/L LAB HEMATOLOGY METHOD 01/06/2025 5:09 PM EDT [facility] Glucose, Whole Blood 227(H) 74 - 99 mg/dL LAB HEMATOLOGY METHOD 01/06/2025 5:09 PM EDT [facility] Ionized Calcium, Whole Blood 4.6 4.6 - 5.1 mg/dL LAB HEMATOLOGY METHOD 01/06/2025 5:09 PM EDT [facility] Lactate, Arterial, Whole Blood 1.9(H) 0.5 - 1.6 mmol/L LAB HEMATOLOGY METHOD 01/06/2025 5:09 PM EDT [facility] Blood Arterial blood specimen / Unknown Arterial Puncture / Unknown 01/06/2025 5:03 PM EDT 01/06/2025 5:08 PM EDT us Cheng Peña MD LAB BLOOD ORDERABLES Final Res ult [facility] [address] [place] [address] * (ABNORMAL) POCT glucose meter (01/06/2025 4:40 PM EDT) POCT Glucose 186(H) 74 - [...] Comment 01/06/2025 4:42 PM EDT [facility] Sprinkler Driver ID Judith Murphy 01/06/2025 4:42 PM EDT [facility] Device ID [id number] 01/06/2025 4:42 PM EDT [facility] Specimen Type POC Capillary 01/06/2025 4:42 PM EDT [facility] Blood Capillary blood specimen / Unknown 01/06/2025 4:40 PM EDT 01/06/2025 4:42 PM EDT Farhad Castillo MD LAB POINT OF CARE TEST DOCKED DEVICE UNSOLICITED RESULTS Final Result [facility] [address] [place] [address] * (ABNORMAL) Comprehensive metabolic panel (01/06/2025 4:26 PM EDT) Glucose, Plasma 187(H) 74 - 99 mg/dL 01/06/2025 4:26 PM EDT [facility] BUN, Plasma 21 8 - 23 mg/dL 01/06/2025 4:26 PM EDT [facility] Creatinine, Plasma 0.92 0.70 - 1.20 mg/dL 01/06/2025 4:26 PM EDT [facility] BUN/Creatinine Ratio 23 01/06/2025 4:26 PM EDT [facility] Sodium, Plasma 138 136 - 145 mmol/L 01/06/2025 4:26 PM EDT [facility] Potassium, Plasma 5.5(H) 3.6 - 4.9 mmol/L 01/06/2025 4:26 PM EDT [facility] Chloride, Plasma 105 97 - 107 mmol/L 01/06/2025 4:26 PM EDT [facility] CO2, Plasma 21(L) 22 - 29 mmol/L 01/06/2025 4:26 PM EDT [facility] Anion Gap 12 6 - 16 mmol/L 01/06/2025 4:26 PM EDT [facility] Total Calcium, Plasma 8.4(L) 8.9 - 10.2 mg/dL 01/06/2025 4:26 PM EDT [facility] Total Protein 5.9(L) 6.3 - 7.9 g/dL 01/06/2025 4:26 PM EDT [facility] Albumin, Plasma 3.4(L) 3.5 - 5.2 g/dL 01/06/2025 4:26 PM EDT [facility] AST, Plasma 306(H) 10 - 50 U/L 01/06/2025 4:26 PM EDT [facility] ALT, Plasma 101(H) 10 - 50 U/L 01/06/2025 4:26 PM EDT [facility] Alkaline Phosphatase, Plasma 73 40 - 115 U/L 01/06/2025 4:26 PM EDT [facility] Total Bilirubin, Plasma 0.7 0.2 - 1.1 mg/dL 01/06/2025 4:26 PM EDT [facility] eGFRcr 95.2 mL/min/1.7 3m*2 01/06/2025 4:26 PM EDT [facility] Comment:Reported eGFRcr in m L/min/1.73m2 is based the CKD-EPI 2020 equation that does not use a race coefficient. Blood Venous blood specimen / Unknown 01/06/2025 3:55 PM EDT Andres Rojas [facility] LAB BLOOD ORDERABLES Final Result [facility] [address] [place] [address] * (ABNORMAL) CBC (01/06/2025 4:16 PM EDT) WBC Count 16.98(H) 3.70 - 10.30 10*3/uL LAB HEMATOLOGY METHOD 01/06/2025 4:16 PM EDT [facility] RBC Count 4.22(L) 4.60 - 6.10 10*6/uL LAB HEMATOLOGY METHOD 01/06/2025 4:16 PM EDT [facility] HGB 12.6(L) 13.7 - 17.5 g/dL LAB HEMATOLOGY METHOD 01/06/2025 4:16 PM EDT [facility] HCT 38.9(L) 40.0 - 51.0 % LAB HEMATOLOGY METHOD 01/06/2025 4:16 PM EDT [facility] Platelet Count 307 155 - 369 10*3/uL LAB HEMATOLOGY METHOD 01/06/2025 4:16 PM EDT [facility] MCV 92 79 - 98 fL LAB HEMATOLOGY METHOD 01/06/2025 4:16 PM EDT [facility] MCH 29.9 26.0 - 32.0 pg LAB HEMATOLOGY METHOD 01/06/2025 4:16 PM EDT [facility] MCHC 32.4 30.7 - 35.5 g/dL LAB HEMATOLOGY METHOD 01/06/2025 4:16 PM EDT [facility] RDW 13.4 11.5 - 14.5 % LAB HEMATOLOGY METHOD 01/06/2025 4:16 PM EDT [facility] MPV 9.4 8.8 - 12.5 fL LAB HEMATOLOGY METHOD 01/06/2025 4:16 PM EDT [facility] nRBC 0.0 <=0.0 per 100 WBCs LAB HEMATOLOGY METHOD 01/06/2025 4:16 PM EDT [facility] Blood Venous blood specimen / Unknown 01/06/2025 4:06 PM EDT us Andres Rojas [facility] LAB BLOOD ORDERABLES Final Result [facility] [address] [place] [address] * (ABNORMAL) Blood gas, arterial (01/06/2025 3:36 PM EDT) pH, Arterial 7.32 7.31 - 7.42 LAB HEMATOLOGY METHOD 01/06/2025 3:48 PM EDT [facility] pCO2, Arterial 45 32 - 45 mmHg LAB HEMATOLOGY METHOD 01/06/2025 3:48 PM EDT [facility] pO2, Arterial 178 >80 mmHg LAB HEMATOLOGY METHOD 01/06/2025 3:48 PM EDT [facility] SO2, Measured, Arterial 98 94 - 98 % LAB HEMATOLOGY METHOD 01/06/2025 3:48 PM EDT [facility] Base Excess, Arterial -3.2(L) -2.0 - 3.0 mmol/L LAB HEMATOLOGY METHOD 01/06/2025 3:48 PM EDT [facility] Bicarbonate, Calculated, Arterial 23 22 - 26 mmol/L LAB HEMATOLOGY METHOD 01/06/2025 3:48 PM EDT [facility] Hematocrit, Whole Blood 38.8(L) 40.0 - 51.0 % LAB HEMATOLOGY METHOD 01/06/2025 3:48 PM EDT [facility] Sodium, Whole Blood 138 136 - 145 mmol/L LAB HEMATOLOGY METHOD 01/06/2025 3:48 PM EDT [facility] Potassium, Whole Blood 5.1(H) 3.6 - 4.9 mmol/L LAB HEMATOLOGY METHOD 01/06/2025 3:48 PM EDT [facility] Chloride, Whole Blood 109(H) 97 - 107 mmol/L LAB HEMATOLOGY METHOD 01/06/2025 3:48 PM EDT [facility] Glucose, Whole Blood 189(H) 74 - 99 mg/dL LAB HEMATOLOGY METHOD 01/06/2025 3:48 PM EDT [facility] Ionized Calcium, Whole Blood 4.5(L) 4.6 - 5.1 mg/dL LAB HEMATOLOGY METHOD 01/06/2025 3:48 PM EDT [facility] Lactate, Arterial, Whole Blood 1.8(H) 0.5 - 1.6 mmol/L LAB HEMATOLOGY METHOD 01/06/2025 3:48 PM EDT [facility] Blood Arterial blood specimen / Unknown Arterial Puncture / Unknown 01/06/2025 3:36 PM EDT 01/06/2025 3:47 PM EDT Andres Rojas [facility] LAB BLOOD ORDERABLES Final Result [facility] [address] [place] [address] * (ABNORMAL) Blood gas, arterial (01/06/2025 1:27 PM EDT) pH, Arterial 7.35 7.31 - 7.42 LAB HEMATOLOGY METHOD 01/06/2025 1:32 PM EDT [facility] pCO2, Arterial 40 32 - 45 mmHg LAB HEMATOLOGY METHOD 01/06/2025 1:32 PM EDT [facility] pO2, Arterial 189 >80 mmHg LAB HEMATOLOGY METHOD 01/06/2025 1:32 PM EDT [facility] SO2, Measured, Arterial 98 94 - 98 % LAB HEMATOLOGY METHOD 01/06/2025 1:32 PM EDT [facility] Base Excess, Arterial -3.3(L) -2.0 - 3.0 mmol/L LAB HEMATOLOGY METHOD 01/06/2025 1:32 PM EDT [facility] Bicarbonate, Calculated, Arterial 22 22 - 26 mmol/L LAB HEMATOLOGY METHOD 01/06/2025 1:32 PM EDT [facility] Hematocrit, Whole Blood 37.0(L) 40.0 - 51.0 % LAB HEMATOLOGY METHOD 01/06/2025 1:32 PM EDT [facility] Sodium, Whole Blood 138 136 - 145 mmol/L LAB HEMATOLOGY METHOD 01/06/2025 1:32 PM EDT [facility] Potassium, Whole Blood 4.4 3.6 - 4.9 mmol/L LAB HEMATOLOGY METHOD 01/06/2025 1:32 PM EDT [facility] Chloride, Whole Blood 111(H) 97 - 107 mmol/L LAB HEMATOLOGY METHOD 01/06/2025 1:32 PM EDT [facility] Glucose, Whole Blood 184(H) 74 - 99 mg/dL LAB HEMATOLOGY METHOD 01/06/2025 1:32 PM EDT [facility] Ionized Calcium, Whole Blood 4.4(L) 4.6 - 5.1 mg/dL LAB HEMATOLOGY METHOD 01/06/2025 1:32 PM EDT [facility] Lactate, Arterial, Whole Blood 1.6 0.5 - 1.6 mmol/L LAB HEMATOLOGY METHOD 01/06/2025 1:32 PM EDT [facility] Blood Arterial blood specimen / Unknown Arterial Puncture / Unknown 01/06/2025 1:27 PM EDT 01/06/2025 1:31 PM EDT us Andres Rojas [employer] LAB BLOOD ORDERABLES Final Result [facility] [address] [place] [address] * Surgical Pathology Exam (01/06/2025 12:59 PM EDT) Case Report Surgical Pathology Case: [id number] Authorizing Provider: Heidi March MD Collected: 01/06/2025 1213 Ordering Location: [facility] Received: 01/06/2025 1618 Pathologist: Paulo Morrison MD Specimens: A) - Other (specify site), Partial Omentectomy B) - Other (specify site), Segment 8 partial hepatectomy C) - Gallbladder, gallbladder 01/11/2025 10:28 AM EDT [facility] Final Diagnosis A. OMENTUM, [...] NEGATIVE FOR TUMOR 01/11/2025 10:28 AM EDT [facility] at 1028 EDT Comment The background liver parenchyma harbors features of chronic liver disease, namely steatohepatitis. Further clinical workup may be indicated for appropriate classification and staging. 01/11/2025 10:28 AM EDT [facility] Clinical Information Metastatic colon cancer to liver (CMS/HCC) [C18.9, C78.7] 01/11/2025 10:28 AM EDT [facility] Gross Description A. PARTIAL [...] cut surface is martino-yellow and lobulated. The ict sales representative section of specimen are submitted as: A1: Senior Business Process Analyst section of nodule A2-A3: Senior Business Process Analyst section of specimen Cold Time: 4h 05m [...] nodule. No additional nodule or mass identified. Senior Business Process Analyst sectioned of specimen are submitted as: B1: [...] grossly identified. Cystic duct margin (en face), ict sales representative sections of gallbladder neck, and body are submitted in cassette C1. Cold Time: 2h 32m YAHIR Toney 01/11/2025 10:28 AM EDT [facility] Note: A resident was involved in the service. I attest I examined the relevant preparations for the specimens and confirmed the diagnosis or interpretation. 01/11/2025 10:28 AM EDT [facility] Tissue Topography unknown / [...] MD LAB PATHOLOGY ORDERABLES F inal Result [facility] [address] [place] [address] * Surgical Pathology Exam (01/06/2025 12:13 PM EDT) Case Report Surgical Pathology Case: [id number] Authorizing Provider: Heidi March MD Collected: 01/06/2025 1213 Ordering Location: [facility] A OPERATING ROOM Received: 01/06/2025 1618 Pathologist: Paulo Morrison MD Specimens: A) - Other (specify site), Partial Omentectomy B) - Other (specify site), Segment 8 partial hepatectomy C) - Gallbladder, gallbladder 01/11/2025 10:28 AM EDT [facility] Final Diagnosis A. OMENTUM, PARTIAL OMENTECTOMY: - [...] NEGATIVE FOR TUMOR 01/11/2025 10:28 AM EDT [facility] at 1028 EDT Comment The background liver parenchyma harbors features of chronic liver disease, namely steatohepatitis. Further clinical workup may be indicated for appropriate classification and staging. 01/11/2025 10:28 AM EDT [facility] Clinical Information Metastatic colon cancer to liver (CMS/HCC) [C18.9, C78.7] 01/11/2025 10:28 AM EDT [facility] Gross Description A. PARTIAL [...] cut surface is martino-yellow and lobulated. The ict sales representative section of specimen are submitted as: A1: Senior Business Process Analyst section of nodule A2-A3: Senior Business Process Analyst section of specimen Cold Time: 4h 05m [...] nodule. No additional nodule or mass identified. Senior Business Process Analyst sectioned of specimen are submitted as: B1: [...] grossly identified. Cystic duct margin (en face), ict sales representative sections of gallbladder neck, and body are submitted in cassette C1. Cold Time: 2h 32m YAHIR Toney 01/11/2025 10:28 AM EDT [facility] Note: A resident was involved in the service. I attest I examined the relevant preparations for the specimens and confirmed the diagnosis or interpretation. 01/11/2025 10:28 AM EDT [facility] Tissue Topography unknown / [...] ORDERABLES Fin al Result Performing Organization Address City/[facility]/ZIP Co de Phone Number [facility] [address] [place] [address] * (ABNORMAL) POCT glucose meter (01/06/2025 9:37 [...] Comment 01/06/2025 9:38 AM EDT [facility] Sprinkler Driver ID Luiza Ramesh 01/06/2025 9:38 AM EDT [facility] Device ID [id number] 01/06/2025 9:38 AM EDT [facility] Specimen Type POC Capillary 01/06/2025 9:38 AM EDT [facility] Blood Capillary blood specimen / Unknown 01/06/2025 9:37 AM EDT 01/06/2025 9:38 AM EDT us Farhad Castillo MD LAB POINT OF CARE TEST DOCKED DEVICE UNSOLICITED RESULTS Final Result Performing Organization Address [facility]/ZIP Co de Phone Number [facility] [address] [place] [address] documented in this encounter Visit Diagnoses Diagnosis [...] times daily with meals, First dose on Sat01/07/25 at 0900, Until Discontinued, Routine Given 01/07/2025 9:06 AM EDT 12.5 mg carvedilol (Coreg) tablet 12.5 mg 12.5 mg, Oral, 2 times daily, First dose (after last modification) on Sat01/07/25 at 2100, Until Discontinued, Routine Given 01/08/2025 [...] Zabrina 01/07/25 at 0730, Last dose on Zabrina 01/07/25 at 1930, Routine New Bag 01/07/2025 [...] (PF) 1.25 mg/mL in 100 mL (PF) SUPERINTENDENT TRACK Continuous Rate: 2 mL/hr, PCEA Dose: 1 [...] nightly, First dose (after last modification) on Zabrina 01/07/25 at 2100, Until Discontinued, Routine, Recovery(Phase [...] 2 g, Intravenous, Once, 1 dose, On Sat01/07/25 at 0630, Routine New Bag 01/07/2025 6:54 AM EDT 2 g [...] Pham RN) 0810 (Given - Provider: Katelynn Lwoery RN) enoxaparin (Lovenox) syringe 40 mg 40 [...] parameters not met)1658 (Not Given - Provider: Flor Abarca RN [...] Bandar Bettencourt - Reason: Order parameters not met)2028 (Not Given - Provider: Tereza Pham RN [...] 1800, Until Discontinued, Routine 00[facility] Provider: Valerie Cheung - Comment: parimeters [...] 0645, Routine 0556 (Given - Provider: Bandar Bettencoutr) potassium chloride IVPB 10 mEq (COMPLETED) 10 [...] documented as of this encounter Care Teams Senior Operations Manager Relationship Specialty Start Date End Date Tayo Jones MD [address] [place] [address] PCP - General 07/14/24 documented as of this encounter
--- OUTSIDE RECORDS SUMMARY | 2025-01-06 10:50 | XMS_ITS | Encounter Summary ---
Author Organization [facility] Address [address] [id number] Care Team Providers Care Telecommunications Engineer Name Role Phone Tayo Jones MD Primary Care Provider [phone] Reason for Visit * Auth/Cert (Routine) Specialty Diagnoses / Procedures Referred By Samia pagan Referred To Contact Diagnoses Metastatic colon cancer to liver Metastatic colon cancer to liver (CMS/HCC) [C18.9, C78.7] Procedures SC RESEC LIVER,PART LOBECTOMY SC RPR AA HERNIA 1ST 3-10 CM REDUCIBLE HEPATECTOMY, PARTIAL REPAIR, HERNIA, EPIGASTRIC Farhad Castillo MD [address] [address] Phone: tel: fax: [facility] [address] [place] [phone] Phone: tel: Referral ID Status Reason Start Date Expiration Date Visits Re quested Visits Authorized [id number] 1 1 Encounter Details Date Type Department Care Team (Late st Contact Info) Description 01/06/2025 10:50 AM EDT - 01/06/2025 4:15 PM EDT Surgery [facility] [address] [place] [phone] Farhad Castillo MD [address] [phone] HEPATECTOMY, PARTIAL, microwave ablation, cholecystectomy [29503 (CPT )] Surgery Details Date/Time Status Location [...] living in a custodial (including now)? No 01/07/2025 [facility] Utilities Answer Date Recorded In the past [...] Instructions * Discharge Instructions* Misty, Paulo G, PRODUCT SAFETY TEST ENGINEER - 01/13/2025 7:56 AM EDT Post-Operative Discharge [...] unwell - Call the [facility] with any questions or concerns [...] Note Faith Snyder 59 y.o. male CSN: [id number] Admission: 01/06/2025 9:09 AM Primary Problem: Metastatic colon cancer to liver Primary Brazing Machine Feeder: Primary Caregiver: Other (Comment) (staff) Assistance Available at Discharge: Availability of Care Givers (#Hours): 24 hours Family/Brazing Machine Feeder(s) Willingness Assessed to care for patient at home: Yes Family/Brazing Machine Feeder(s) Readiness Assessed to care for patient at home: Yes Housing Circumstances-Z Codes: Housing Circumstances (select all that apply): None Applicable Discharge Facility/Level of Care Needs: Discharge Facility/Level of Care Needs: 63-Waiter/Waitress Second Class care DME/Equipment Needed after Discharge: Equipment Currently Used at Home: cane, straight Readmission Within the Last 30 Days: Readmission Within the Last 30 Days: no previous admission in last 30 days Medicare Documentation: Medicare Second Notice?: No Follow-up: [facility] phone [phone] [facility] phone [phone] snf resident Follow up Discharge Transportation: Transportation Home at Discharge: Medical Transport ([facility] [facility]) Has discharge transport been arranged?: Yes What day is the transport expected?: 01/13/25 What time is the transport expected?: 1000 Follow Up Transport: Transportation Needed to Follow up Appoinments: Medical Transport Additional Comments: Pt is MR to DC this date. Pt will DC via [facility] [employer] [facility] at 1000 this date back to [facility] where pt resides for LTC. Pt meets FPG 300%. SW faxed the DC summary and provided the information below to 1st call provider and bedside RN. Pharmacy for controlled meds: [facility] NFR: [phone] ext [phone] Fax the DC summary: [phone] Elle Andre, WARDROBE ASSISTANT, HYPO SPLASHER Social Work Senior Department of Case Management [facility], [place] * Care Plan - Katelynn Lowery RN [...] RN Katelynn to call report back to [facility]. Belongings packed. [facility] to transport patient back. * Krames OnFHIR - Bhakti Cooley RN - 01/13/2025 8:03 AM EDT Images from the original note were not included. [id number] Cyclobenzaprine WHY is this medicine prescribed? Cyclobenzaprine [...] of all of the prescription and nonprescription (cpxw-svd-aarjqka) medicines, vitamins, minerals, and dietary supplements you [...] or pharmacist about specific clinical use. The [employer] [employer] represents that the information provided hereunder was formulated with a reasonable standard of care, and in conformity with professional standards in the field. The [place] [employer] makes no representations or warranties, express or implied, including, but not limited to, any implied warranty of merchantability and/or fitness for a particular purpose, with respect to such information and specifically disclaims all such warranties. Users are advised that decisions regarding drug therapy are complex medical decisions requiring the independent, informed decision of an appropriate health complex care nurse practitioner, and the information is provided for informational purposes only. The entire monograph for a drug should be reviewed for a thorough understanding of the drug's actions, uses and side effects. The [employer] [employer] does not endorse or recommend the use of any drug.The information is not a substitute for medical care. AHFS?? Patient Medication Information?. ?? Copyright, 2023. The [employer]??, [address], [address], [place], [place]. All Rights Reserved. Duplication for commercial use must be authorized by [facility]. Selected Revisions: May 30, 2016. AHFS?? Patient Medication Information?. ?? Copyright, 2024 * Cony OnRICHARIR - Bhakti Cooley RN - 01/13/2025 8:02 AM EDT 1087 Oxycodone Oral Tablet, Immediate Release Brand Names: Oxaydo, Roxicodone What is this medicine? Oxycodone (qp-x-FOH-done) is an opioid pain reliever. It is [...] a special medication guide each time you fruit picker machine operator this medicine. ? Overdosage: Taking too much [...] should report to your doctor or health complex care nurse practitioner as soon as possible: ? allergic reactions [...] attention (report to your doctor or health complex care nurse practitioner if they continue or are bothersome): ? constipation ? dry mouth ? itching ? nausea, vomiting ? upset stomach This list may not describe all possible side effects. Call your doctor for medical advice about side effects. You may report side effects to FDA at 3-097-BAL-0504. Where should I keep my medicine? This [...] location. To find a disposal location, visit [facility]/[place]. If you cannot take unused medicine to [...] from the original note were not included. [id number] Enoxaparin Injection IMPORTANT WARNING: If you have [...] of all of the prescription and nonprescription (qhea-yyu-blibclv) medicines, vitamins, minerals, and dietary supplements you [...] or pharmacist about specific clinical use. The [place] [employer] represents that the information provided hereunder was formulated with a reasonable standard of care, and in conformity with professional standards in the field. The [employer] [employer] makes no representations or warranties, express or implied, including, but not limited to, any implied warranty of merchantability and/or fitness for a particular purpose, with respect to such information and specifically disclaims all such warranties. Users are advised that decisions regarding drug therapy are complex medical decisions requiring the independent, informed decision of an appropriate health complex care nurse practitioner, and the information is provided for informational purposes only. The entire monograph for a drug should be reviewed for a thorough understanding of the drug's actions, uses and side effects. The [employer] [employer] does not endorse or recommend the use of any drug.The information is not a substitute for medical care. AHFS?? Patient Medication Information?. ?? Copyright, 2023. The [employer]??, [address], [address], [place], [place]. All Rights Reserved. Duplication for commercial use must be authorized by [facility]. Selected Revisions: November 02, 2023. AHFS?? Patient [...] contact your doctor after hours, please call [phone] and ask for the doctors oncanabel for GOLD Surgery. Clinic information for Dr. Castillo: [facility] [address] [place] [address] * Discharge Summary - Paulo Jay APRN - 01/13/2025 7:51 AM EDT Hospitalization Admit Date/Time: 01/06/2025 9:09 AM Admitting Attending: Farhad Castillo Discharge Date: 01/13/25 Discharge Attending Physician: Farhad Castillo MD PCP name and Address: Tayo Jones MD [address] [place] [address] Referring provider name and address: No referring provider defined for this encounter. Chief Concern, Brief History of Present Illness, and Hospital Course Faith Snyder is a 59 y.o. male with a past medical history of DM, HTN, presented to [facility] as a scheduled surgical intervention [...] Your Medications These medications were sent to [facility] - [place], [place] - [address] [place] [id number] Lantus SoloStar 100 UNIT/ML injection pen naloxone [...] Signed 01/08/2025 11:18 AM by Paulo Jay PRODUCT SAFETY TEST ENGINEER - multimodal pain management - transition PO pain meds as diet advances and prior to discharge Electrolyte abnormality Overview Signed 01/08/2025 11:18 AM by Paulo Jay PRODUCT SAFETY TEST ENGINEER - daily/PRN CMP, Mg, Phos - replete [...] vomiting, or feeling unwell - Call the [facility] with any questions or concerns [...] 02/04/2025 10:15 AM Heidi March MD [facility] Test Results Pending At Discharge Pertinent Physical [...] saw and evaluated the patient with the PRODUCT SAFETY TEST ENGINEER. I attest to being involved in providing substantive time in patient care. I discussed the case with them and agree with the findings as documented. The discussion and plan reflect my edits and medical decision making. Dr. Montserrat Connor MD Milk Bottling Machine Operator of Surgical Oncology [facility] * Care Plan - Tereza Pham RN [...] Note Faith Snyder 59 y.o. male CSN: [id number] Admission: 01/06/2025 9:09 AM Primary Problem: Metastatic [...] caliber on 01/13/25 at 1100 back to [facility]. Pharmacy for controlled meds: [facility] Mallory NFR: [phone] ext [phone] Fax the DC summary: [phone] Elle Andre, WARDROBE ASSISTANT, HYPO SPLASHER Social Work Senior Department of Case Management [facility], [place] * Consults - Naz Posey RN - 01/12/2025 8:02 AM EDT Epidural catheter removed yesterday. Catheter site clean, dry, intact, and open to air at this time. Acute Pain will sign off. Please Contact Acute Pain Service with any additional questions or concerns via [employer] [email or web address]. * Progress Notes - Oziel Morris MD - 01/12/2025 6:47 AM EDT Images from the original note were not included. [facility] Department of Surgery Division of [...] Signed 01/08/2025 11:18 AM by Paulo Jay PRODUCT SAFETY TEST ENGINEER - multimodal pain management - transition PO pain meds as diet advances and prior to discharge Electrolyte abnormality Overview Signed 01/08/2025 11:18 AM by Paulo Jay PRODUCT SAFETY TEST ENGINEER - daily/PRN CMP, Mg, Phos - replete as appropriate - goal: K>4, phos>3, mg>2 Leukocytosis Overview Signed 01/08/2025 11:18 AM by Paulo Jay PRODUCT SAFETY TEST ENGINEER - common post-op finding likely reactive 2/2 [...] Edited by: Cyndi Sol MD at 01/12/2025 0754 Review of Systems: Relevant review of systems [...] Signed 01/08/2025 11:18 AM by Paulo Jay PRODUCT SAFETY TEST ENGINEER - multimodal pain management - transition PO pain meds as diet advances and prior to discharge Electrolyte abnormality Overview Signed 01/08/2025 11:18 AM by Paulo Jay PRODUCT SAFETY TEST ENGINEER - daily/PRN CMP, Mg, Phos - replete as appropriate - goal: K>4, phos>3, mg>2 Leukocytosis Overview Signed 01/08/2025 11:18 AM by Paulo Jay PRODUCT SAFETY TEST ENGINEER - common post-op finding likely reactive 2/2 [...] PRN, oxycodone LDA: LUQ EL, PIV PT/OT: senior care with home/inpatient PT/OT Edited by: Cyndi Sol [...] medical decision making. Dr. Montserrat Connor MD Milk Bottling Machine Operator of Surgical Oncology [facility] * Progress Notes - Kd Boyd MD [...] 24 hours Assessment: doing well Plan: wean BORING MILL OPERATOR FOR METAL Plan explained/all questions answered/plan in agreement with: Patient Patient seen and examined today on rounds with AP Nurse. Epidural analgesics infusing for the management of postop pain. Analgesic medication rate and use reviewed. Patient doing well and quite comfortable. Patient reports the epidural BORING MILL OPERATOR FOR METAL doses are effective. No significant adverse effects noted. My plan is to STOP the epidural infusion basal and BORING MILL OPERATOR FOR METAL settings. Will follow. Reason for Block: post-op [...] with any additional questions or concerns via [employer] Secure Chat orpage [phone]. * Progress Notes - Jessica Benoit RN - 01/11/2025 10:33 AM EDT Case Management Adult Progress Note Faith Snyder 59 y.o. male CSN: [id number] Admission: 01/06/2025 9:09 AM Primary Problem: Metastatic colon cancer to liver Anticipated Discharge Date: 01/15 Has Discharge Plans Changed? No Medicare Second Notice: Housing Circumstances: Not Applicable Housing Circumstances Action Taken: Medically Ready for Discharge: no Additional Comments [facility] phone [phone] will accept him hack as a alf care resident. POC reviewed with primary team. [...] with any additional questions or concerns via [employer] [email or web address] Security [phone]. * Consults - Marylin Yang RN - [...] (PF) 1.25 mg/mL in 100 mL (PF) BORING MILL OPERATOR FOR METAL no dose Epidural Continuous hydromorphone 10 mcg/mL [...] with any additional questions or concerns via [employer] orpage [phone]. * Progress Notes - Paulo Jay, PRODUCT SAFETY TEST ENGINEER - 01/11/2025 7:47 AM EDT Images from [...] Signed 01/08/2025 11:18 AM by Paulo Jay PRODUCT SAFETY TEST ENGINEER - multimodal pain management - transition PO [...] LDA: Epidural, LUQ EL, PIV, NGT PT/OT: senior care with home/inpatient PT/OT Edited by: Paulo Jay [...] medical decision making. Dr. Montserrat Connor MD Milk Bottling Machine Operator of Surgical Oncology [facility] * Progress Notes - Linus Hernandez MD - 01/11/2025 7:21 AM EDT Images from the original note were not included. [facility] Department of Surgery Division of [...] Signed 01/08/2025 11:18 AM by Paulo Jay PRODUCT SAFETY TEST ENGINEER - daily/PRN CMP, Mg, Phos - replete [...] (PF) 1.25 mg/mL in 100 mL (PF) BORING MILL OPERATOR FOR METAL no dose Epidural Continuous hydromorphone 10 mcg/mL [...] with any additional questions or concerns via [employer] [email or web address] Security [phone]. * Progress Notes - Kaitlin Judd MD - 01/10/2025 1:06 PM EDT Acute Pain Service Pain scale (0-10): 0/10 Side Effects Nausea/Vomiting: no Pruritus: no Confusion: no Sedation: no Numbness/Tingling: no Postural headache: no Additional side effects: no Outcomes Able to take PO: yes Has ambulated: yes Assessment & Plan in the Next 24 hours Assessment: doing well Plan: wean BORING MILL OPERATOR FOR METAL Plan explained/all questions answered/plan in agreement with: [...] Leukocytosis Overview Signed 01/08/2025 11:18 AM by Paluo Jay APRN - common post-op finding likely [...] LDA: Epidural, LUQ EL, PIV, NGT PT/OT: senior care with home/inpatient PT/OT Edited by: Linus Hernandez [...] medical decision making. Dr. Montserrat Connor MD Milk Bottling Machine Operator of Surgical Oncology [facility] * Care Plan - Linda Brannon RN [...] (PF) 1.25 mg/mL in 100 mL (PF) BORING MILL OPERATOR FOR METAL no dose Epidural Continuous hydromorphone 10 mcg/mL [...] with any additional questions or concerns via [employer] [email or web address] Security 2382. * Care Plan - Cathryn Lomas RN [...] (PF) 1.25 mg/mL in 100 mL (PF) BORING MILL OPERATOR FOR METAL no dose Epidural Continuous hydromorphone 10 mcg/mL [...] with any additional questions or concerns via [employer] [email or web address] Security [phone]. * Care Plan - Nancy Hughes RN [...] 24 hours Assessment: doing well Plan: continue BORING MILL OPERATOR FOR METAL at current rate Plan explained/all questions answered/plan [...] abdomen. COMPARISON: Abdominal radiograph 01/08/2025 FINDINGS: Limited aoscb-ek-hzbc abdominal radiograph for the purpose of locating [...] Signed 01/08/2025 11:18 AM by Paulo Jay PRODUCT SAFETY TEST ENGINEER - daily/PRN CMP, Mg, Phos - replete as appropriate - goal: K>4, phos>3, mg>2 Leukocytosis Overview Signed 01/08/2025 11:18 AM by Paulo Jay PRODUCT SAFETY TEST ENGINEER - common post-op finding likely reactive 2/2 [...] LDA: Epidural, LUQ EL, PIV, NGT PT/OT: senior care with home/inpatient PT/OT Edited by: Cyndi Sol MD at 01/09/2025 0758 Dispo: Continue Current Level of Care Cyndi [...] reflect my edits and medical decision making. Cross Anchor trial. Encourage ambulation. Decrease BORING MILL OPERATOR FOR METAL basal rate. Dr. Montserrat Connor MD Milk Bottling Machine Operator of Surgical Oncology [facility] * Consults - Renata Garcia RN - 01/09/2025 9:17 AM EDT Acute Pain Service Follow-Up Evaluation Faith Snyder is a 59 y.o. male Follow-Up: Follow-up reason: APS rounds Location: abdomen Pain Rating (0-10): sleeping Comfort/ Acceptable Pain Level: [facility] Acute Pain Service Comments: Patient is [...] (PF) 1.25 mg/mL in 100 mL (PF) BORING MILL OPERATOR FOR METAL no dose Epidural Continuous hydromorphone 10 mcg/mL [...] with any additional questions or concerns via [employer] Secure Chat orpage [phone]. * Care Plan - Marisela Avelar RN [...] APS rounds Location: Asleep Pain Rating (0-10): [facility] Comfort/ Acceptable Pain Level: [facility] Acute Pain Service Comments: Patient [...] (PF) 1.25 mg/mL in 100 mL (PF) BORING MILL OPERATOR FOR METAL no dose Epidural Continuous hydromorphone 10 mcg/mL [...] with any additional questions or concerns via [employer] [email or web address]. * Care Plan - Nancy Hughes RN [...] of bowel function. Dr. Montserrat Connor MD Milk Bottling Machine Operator of Surgical Oncology [facility] * Consults - Veda Bray RD - 01/08/2025 9:20 AM EDT Adult Nutrition Evaluation Note Faith Snyder 59 y.o. male CSN: [id number] Room/Bed 124/124A Nutrition evaluation type: assessment Reason [...] Supplemental oxygen O2 Delivery Method: Nasal cannula [place] Coma Scale Score: 15 Sandeep Scale Score: [...] 33.49 Weight Evaluation: Obese-Class 1 (BMI 30-34.9) [place] Body Weight (kg): 78.2 Percent [place] Body Weight: 139 Adjusted Body Weight (kg): 85.9 Estimated Needs: Kcal/ K-30 Kcal Provided: 9379-7810 Kcal Needs Based On: Adjusted weight Gm [...] (PF) 1.25 mg/mL in 100 mL (PF) BORING MILL OPERATOR FOR METAL no dose Epidural Continuous hydromorphone 10 mcg/mL [...] with any additional questions or concerns via [employer] orpage [phone]. * Care Plan - Cathryn Lomas RN [...] (PF) 1.25 mg/mL in 100 mL (PF) BORING MILL OPERATOR FOR METAL no dose Epidural Continuous hydromorphone 10 mcg/mL [...] with any additional questions or concerns via [employer] [email or web address] Security [phone]. * Care Plan - Bonnie Scott RN [...] medical history of DM, HTN, presented to [facility] as a scheduled surgical intervention [...] Oziel Morris MD PGY-5 General Surgery Pager: [phone] Cosigned by Heidi March MD at 01/08/2025 [...] Note Faith Snyder 59 y.o. male CSN: [id number] Admission: 01/06/2025 9:09 AM Primary Problem: Metastatic colon cancer to liver Charger Operator reviewed chart and spoke with patient to complete this Initial Case Management Assessment. PCP: Tayo Jones MD Emergency Contact: Extended Emergency Contact Information Primary Emergency Contact: SWATI SNYDER Mobile Relation: Sister Preferred language: Polish Insurance: Primary Visit Coverage Payer Plan Sponsor Code Group Number Group Name MEDICAID-[facility] MEDICAID TRADITIONAL Primary Visit Coverage Subscriber Subscriber ID Subscriber Name Subscriber SSN Subscriber Address [id number] FAITH SNYDER [id number] [address] Patient information:lives as a LT resident Daily Living Activities: Functional Status: Moderate assistance Living Arrangements: [facility] Type of Residence: Single Level, penitentiary/residential care, senior care facility [address] [place] [address] Current DME: Equipment Currently Used at Home: cane, straight Income Information: Income Source: Disabled Income/Expense Information: Income meets expenses Current Resources Utilized: None Housing Circumstances-Z Codes: Housing Circumstances (select all that apply): None Applicable Patient Referred to: [facility] phone [phone] Anticipated Discharge Date: 01/11/25 Patient's Discharge Goal: [facility] phone [phone] Assistance Available at Discharge: 05/11 Discharge Transport: medicaid transport Follow Up Transport: medicaid transport Home Health / Home Infusion / Outpatient Dialysis Services: none Living Will/Advance Directive/Power of Exercise Specialist /Guardian: No LW POA is sister Swati Snyder Additional Comments: Charger Operator provided introduction of CM and information on CM role. [facility] Jessica Benoit RN * Significant Event [...] or living in a custodial (including now)? N Food Insecurity Within the past 12 months, you worried that your food would run out before you got the money to buymore. Never true Within the past 12 months, the food you bought just didn't last and you didn't have money to get more. Never true Utilities In the past 12 months has the [employer], gas, oil, or water [employer] threatened to shut off services in your [...] Treatment Time 39 min PT Discharge Recommendations senior care facility, Home health PT, Home health OT [...] Chair since being admitted to the hospital. Boat Cleaning Supervisor (if applicable) Not Applicable HOME LIVING/SET-UP Lives With (roommate) Home Type senior care facility ([facility] multimedia educational specialist resident) Home Equipment Cane (patient believes he would have access to other equipment) Home Layout One level Bathroom Layout Bathroom: Tub/Shower: Walk-in shower, Grab bars Bathroom: Toilet: Standard, Grab bars Bathroom: Accessibility: Accessible, Accessible via wheelchair, Accessible via walker Additional Comments PRIOR LEVEL OF FUNCTION Assist at Home (intermittent assist from staff) Level of Mobility Ambulatory- household only Mobility Jakin Independent gait with device History of Falls [...] Treatment Minutes 24 BED MOBILITY Level of Jakin Physical/Non- physical Assist Adaptive Equipment Utilized Rolling/ [...] sitting edge of bed. TRANSFERS Level of Jakin Physical/Non- physical Assist Adaptive Equipment Utilized Sit [...] Limits, Stooped posture, Forward head Level of Jakin Balance Support Interventions Static Sit Standby assist [...] support STANDARDIZED ASSESSMENTS Standardized Assessments Standardized Assessments: [facility] 6-Clicks Mobility Assessment [facility] 6-Clicks Mobility Assessment Difficulty patient has [...] climbing 3-5 steps with a railing?: Unable [facility] 6-Clicks Mobility Assessment Total : 13 [...] Making Moderate complexity PT RECOMMENDATIONS Discharge Destination senior care facility, Home health PT, Home health OT [...] Snyder Today's Date: 01/07/2025 OT Discharge Recommendations: senior care facility, Home health OT, Home health PT [...] her. Participants in Care Family/Caregiver Present: No Boat Cleaning Supervisor: Not Applicable Presentation Oxygen Therapy: Supplemental oxygen [...] Home Living/Set-up Lives With: (roommate) Home Type: [facility] Home Adaptive Equipment: Cane (patient believes he would have access to other equipment) Home Layout: One level Bathroom: Tub/Shower: Walk-in shower, Grab bars Bathroom: Toilet: Standard, Grab bars Bathroom: Accessibility: Accessible, Accessible via wheelchair, Accessible via walker Prior Level of Function Receives Help From: (intermittent assist from staff) Level of Mobility: Ambulatory- household only Mobility Jakin: Independent gait with device ADL Performance: Needs [...] Mobility Bed Mobility Exam: Rolling/Turning Level of Jakin: Moderate assist (50% patient effort) Physical/Nonphysical Assist: Verbal Cues, Minimal cues Assistive Device: Bed rails Bed Mobility Exam: Scooting/Bridging Level of Jakin: Contact guard Physical/Nonphysical Assist: Verbal Cues, Nonverbal cues (demo/gestures), Minimal cues Bed Mobility Exam: Supine to Sit Level of Jakin: Moderate assist (50% patient's effort) Physical/Nonphysical Assist: Verbal Cues, Nonverbal cues (demo/gestures), Additional assist utilized for safety Assistive Device: Bed rails Transfers Transfer Exam: Sit to stand Level of Jakin: Minimum assist (75% patient's effort) Physical/Nonphysical Assist: Verbal Cues, Nonverbal cues (demo/gestures), Minimal cues, Set-up required Assistive Device: Walker, rolling Transfer Exam: Stand to Sit Level of Jakin: Minimum assist (75% patient's effort) Physical/Nonphysical Assist: Set-up required, Verbal Cues, Nonverbal cues (demo/gestures), Minimal cues Assistive Device: Walker, rolling Transfer Exam: Bed to Chair/Chair to Bed Level of Jakin: Minimum assist (75% patient's effort) Physical/Nonphysical Assist: [...] overall support return to baseline. Standardized Assessments [facility] 6-Click Daily Activities Help from Other: Don/Doff Regular Lower Body Clothings: A lot Help From Other: Bathing: A lot Help From Other: Toileting: A lot Help From Other: Don/Doff Upper Body Clothings: A lot Help From Other: Grooming: Little Help From Other: Eating Meals: None [facility] 6 Click - Daily Activities Score: 15 [...] Eval complexity: Moderate OT Recommendations Discharge Destination: senior care facility, Home health OT, Home health PT [...] mL/hr and encouraged patient to utilize the BORING MILL OPERATOR FOR METAL button to help manage pain better. Will [...] (PF) 1.25 mg/mL in 100 mL (PF) BORING MILL OPERATOR FOR METAL no dose Epidural Continuous hydromorphone 10 mcg/mL [...] with any additional questions or concerns via [employer] Secure Chat orpage [phone]. * Progress Notes - Kd Hollins MD [...] PCEA w/ dilaudid, IV robaxin LDA: Epidural, Uw, EL, PIV PT/OT: Consulted Edited by: Kd [...] Service Comments: Pain Service comments: Will continue BORING MILL OPERATOR FOR METAL and/ or infusion until primary service decides it is appropriate to discontinue BORING MILL OPERATOR FOR METAL and/ or infusion. * Significant Event - [...] nursing staff. I have notified senior resident/attending education counselor with any issues or concerns. Brandon Diggs [...] from the original note were not included. [facility] Department of Surgery Division of [...] nursing staff. I have notified senior resident/attending education counselor with any issues or concerns. Brandon Diggs [...] (PF) 1.25 mg/mL in 100 mL (PF) BORING MILL OPERATOR FOR METAL no dose Epidural Continuous hydromorphone 10 mcg/mL [...] open partial right hepatectomy, incisional hernia repair BORING MILL OPERATOR FOR METAL Education: Patient/ family BORING MILL OPERATOR FOR METAL education done: Yes Pre-hook-up Assessment: Pain Rating (0-10): 7 Comfort/ Acceptable Pain Level: 3 Location: abdomen Epidural insertion site: occlusive dressing intact Epidural motor function: Able to bend knees Hook-up Time: Hooked up at 1750 with 5 ml bolus. Additional Comments: Negative Aspiration. * Op Note - Farhad Castillo MD - 01/06/2025 11:44 AM EDT Operative Note Date: 01/06/25 Location: [facility] [place] [facility] Name: Faith Snyder, : 1965, Diagnoses: Pre-op Diagnosis Metastatic colon cancer to liver Post-op Diagnosis Metastatic colon cancer to liver Procedure(s): Segment 8 Liver Resection Segment 7 MWA (100W, 2 min, 100W 40 seconds tract ablation) Intra-operative US to guide resection and ablation Open Cholecystectomy Attending Surgeon(s): Panel 1: * Farhad Castillo - Primary Panel 2: * Heidi March - Primary Hepatologist(s): Panel 1: * Kd Hollins MD - [...] Catheter Indication Reasons Recent Urologic, Colorectal or KEYMODULE ASSEMBLY MACHINE TENDER surgery 01/07/25799 Output (mL) 175 mL 01/07/25 1524 Implants Type Name Action Serial No. MESH PHASIX ST [id number] - [id number] Implanted Specimen: Specimens ID Source Frozen? 1 [...] the operation will be dictated by the [facility] including the closure. I was present [...] AM EDT Operative Note Date: 01/06/25 Location: [place] [place] [facility] Name: Faith Snyder, : 1965, Diagnoses: Pre-op Diagnosis Metastatic colon cancer to liver Incisional hernia without obstruction or gangrene Post-op Diagnosis Metastatic colon cancer to liver Incisional hernia without obstruction or gangrene Procedure(s): Open complex >10 cm incisional hernia repair with open underlay [id number] Phasix ST OPS Partial omentectomy Excision skin/scar/sac [id number] Attending Surgeon(s): Panel 2: * Heidi March - Primary Hepatologist(s): Panel 1: * Kd Hollins MD - Resident - Assisting, sports marketing internship Panel 2: * Oziel Raza MD - [...] Catheter Indication Reasons Recent Urologic, Colorectal or KEYMODULE ASSEMBLY MACHINE TENDER surgery 01/08/25799 Output (mL) 200 mL 09/26/25 0800 Implants Type Name Action Serial No. MESH PHASIX ST [id number] - [id number] Implanted Specimen: Specimens ID Source Frozen? 1 Other (specify site) No Description: Partial Omentectomy 2 Other (specify site) No Description: Segment 8 partial hepatectomy 3 Gallbladder No Description: gallbladder Findings: Complex multiple large [place]-cheese hernia defects along the entirety of his [...] and and in fact he had multiple [place] cheese defects for the entirety of his [...] a LigaSure. During this due to the [place] cheese configuration and multiple areas where the [...] anterior fascia was then closed in interrupted [id number] fashion with the midline pexing to the bilaminar Phasix mesh as part of the OPS system. In doing so there was no evidence of bleeding. Our subcutaneous area was evaluated. There was no evidence ofadditional bleeding. A 19 Bulgarian Linus drain was placed in the subcutaneous [...] 01/06/2025 11:44 AM EDT Date: 01/06/25 Location: [facility] [place] [facility] Name: Faith Snyder, : 1965, Diagnoses: Pre-op Diagnosis Metastatic colon cancer to liver Post-op Diagnosis Metastatic colon cancer to liver Procedure(s): Ventral incisional hernia repair with Phasix mesh Partial omentectomy Attending Surgeon(s): Panel 1: * Farhad Castillo - Primary Panel 2: * Heidi March - Primary Hepatologist(s): Panel 1: * Kd Hollins MD - Resident - Assisting Panel 2: * Oziel Raza MD - Resident - Assisting Anesthesia: General ASA: III Blood Administration: Blood Product Administration History None Estimated Blood Loss: 3 mL Drains: Closed/Suction Drain LUQ Bulb 19 Fr. (Active) Urethral Catheter Temperature probe;Non-latex 16 Fr. (Active) Implants Type Name Action Serial No. MESH PHASIX ST [id number] - [id number] Implanted Specimen: Specimens ID Source Frozen? 1 [...] 01/06/2025 11:44 AM EDT Date: 01/06/25 Location: [facility] [place] [facility] Name: Faith Snyder, : 1965, Diagnoses: Pre-op Diagnosis Metastatic colon cancer to liver Post-op Diagnosis Metastatic colon cancer to liver Procedure(s): Segment 8 partial hepatectomy Segment 6 microwave ablation Open cholecystectomy Attending Surgeon(s): Panel 1: * Farhad Castillo - Primary Panel 2: * Heidi March - Primary Hepatologist(s): Panel 1: * Kd Hollins MD - Resident - Assisting Panel 2: * Oziel Raza MD - Resident - Assisting Anesthesia: General ASA: III Blood Administration: Blood Product Administration History None Estimated Blood Loss: 3 mL Drains: Closed/Suction Drain LUQ Bulb 19 Fr. (Active) Urethral Catheter Temperature probe;Non-latex 16 Fr. (Active) Implants Type Name Action Serial No. MESH PHASIX ST [id number] - [id number] Implanted Specimen: Specimens ID Source Frozen? 1 [...] RIGHT COLON AND TERMINAL ILEUM, RIGHT HEMICOLECTOMY ([id number]; 11/09/2022): - INVASIVE MODERATELY DIFFERENTIATED ADENOCARCINOMA OF [...] Description 02/11/2025 8:20 AM EDT Appointment [facility] [address] [place] [address] 02/11/2025 9:00 AM EDT Office Visit [facility] [address] [place] [address] Farhad Castillo MD [address] [place] [address] documented as of this encounter Goals Goal [...] EDT Metastatic colon cancer to liver (CMS/HCC) SC RPR AA HERNIA 1ST 3-10 CM REDUCIBLE 01/06/2025 10:47 AM EDT Metastatic colon cancer to liver (CMS/HCC) Incisional hernia without obstruction or gangrene SC RESEC LIVER,PART LOBECTOMY 01/06/2025 10:47 AM EDT Metastatic colon cancer to liver (CMS/HCC) Incisional hernia without obstruction or gangrene POCT GLUCOSE METER UNSOLICITED RESULTS Routine 01/06/2025 9:37 AM EDT documented in this encounter Results * (ABNORMAL) POCT glucose meter (01/13/2025 7:02 AM EDT) [facility] POCT Glucose 134(H) 74 - 99 mg/dL [...] Comment 01/13/2025 7:03 AM EDT [facility] Divorce Attorney ID Vita Holder 01/13/2025 7:03 AM EDT [facility] Device ID [id number] 01/13/2025 7:03 AM EDT [facility] Specimen Type POC Capillary 01/13/2025 7:03 AM EDT [facility] Blood Capillary blood specimen / Unknown 01/13/2025 7:02 AM EDT 01/13/2025 7:03 AM EDT us Farhad Castillo MD LAB POINT OF CARE TEST DOCKED DEVICE UNSOLICITED RESULTS Final Result Performing Organization Address City/[facility]/ZIP Co de Phone Number [facility] [address] [place] [address] * Phosphorus (01/13/2025 3:37 AM EDT) [facility] Phosphorus, Plasma 3.3 2.5 - 4.5 mg/dL 01/13/2025 4:45 AM EDT [facility] Blood Venous blood specimen / Unknown Venipuncture / Unknown 01/13/2025 3:37 AM EDT 01/13/2025 4:14 AM EDT us Farhad Castillo MD LAB BLOOD ORDERABLES Final Result [facility] [address] [place] [address] * (ABNORMAL) Magnesium (01/13/2025 3:37 AM EDT) [facility] Magnesium, Plasma 1.8(L) 1.9 - 2.4 mg/dL 01/13/2025 4:45 AM EDT [facility] Blood Venous blood specimen / Unknown Venipuncture / Unknown 01/13/2025 3:37 AM EDT 01/13/2025 4:14 AM EDT Farhad Castillo MD LAB BLOOD ORDERABLES Final Result [facility] [address] [place] [address] * (ABNORMAL) Comprehensive metabolic panel (01/13/2025 3:37 AM EDT) Glucose, Plasma 156(H) 74 - 99 mg/dL 01/13/2025 4:45 AM EDT [facility] BUN, Plasma 8 8 - 23 mg/dL 01/13/2025 4:45 AM EDT [facility] Creatinine, Plasma 0.79 0.70 - 1.20 mg/dL 01/13/2025 4:45 AM EDT [facility] BUN/Creatinine Ratio 10 01/13/2025 4:45 AM EDT [facility] Sodium, Plasma 136 136 - 145 mmol/L 01/13/2025 4:45 AM EDT [facility] Potassium, Plasma 3.6 3.6 - 4.9 mmol/L 01/13/2025 4:45 AM EDT [facility] Chloride, Plasma 103 97 - 107 mmol/L 01/13/2025 4:45 AM EDT [facility] CO2, Plasma 23 22 - 29 mmol/L 01/13/2025 4:45 AM EDT [facility] Anion Gap 10 6 - 16 mmol/L 01/13/2025 4:45 AM EDT [facility] Total Calcium, Plasma 8.4(L) 8.9 - 10.2 mg/dL 01/13/2025 4:45 AM EDT [facility] Total Protein 5.7(L) 6.3 - 7.9 g/dL 01/13/2025 4:45 AM EDT [facility] Albumin, Plasma 2.7(L) 3.5 - 5.2 g/dL 01/13/2025 4:45 AM EDT [facility] AST, Plasma 20 10 - 50 U/L 01/13/2025 4:45 AM EDT [facility] ALT, Plasma 15 10 - 50 U/L 01/13/2025 4:45 AM EDT [facility] Alkaline Phosphatase, Plasma 67 40 - 115 U/L 01/13/2025 4:45 AM EDT [facility] Total Bilirubin, Plasma 0.4 0.2 - 1.1 mg/dL 01/13/2025 4:45 AM EDT [facility] eGFRcr 101.7 mL/min/1.7 3m*2 01/13/2025 4:45 AM EDT [facility] Comment:Reported eGFRcr in m L/min/1.73m2 is based the CKD-EPI 2020 equation that does not use a race coefficient. Blood Venous blood specimen / Unknown Venipuncture / Unknown 01/13/2025 3:37 AM EDT 01/13/2025 4:14 AM EDT us Farhad Castillo MD LAB BLOOD ORDERABLES Final Result [facility] [address] [place] [address] * (ABNORMAL) CBC W/O Differential (01/13/2025 3:37 AM EDT) WBC Count 11.46(H) 3.70 - 10.30 10*3/uL LAB HEMATOLOGY METHOD 01/13/2025 4:24 AM EDT [facility] RBC Count 3.36(L) 4.60 - 6.10 10*6/uL LAB HEMATOLOGY METHOD 01/13/2025 4:24 AM EDT [facility] HGB 9.9(L) 13.7 - 17.5 g/dL LAB HEMATOLOGY METHOD 01/13/2025 4:24 AM EDT [facility] HCT 30.6(L) 40.0 - 51.0 % LAB HEMATOLOGY METHOD 01/13/2025 4:24 AM EDT [facility] Platelet Count 244 155 - 369 10*3/uL LAB HEMATOLOGY METHOD 01/13/2025 4:24 AM EDT [facility] MCV 91 79 - 98 fL LAB HEMATOLOGY METHOD 01/13/2025 4:24 AM EDT [facility] MCH 29.5 26.0 - 32.0 pg LAB HEMATOLOGY METHOD 01/13/2025 4:24 AM EDT [facility] MCHC 32.4 30.7 - 35.5 g/dL LAB HEMATOLOGY METHOD 01/13/2025 4:24 AM EDT [facility] RDW 13.2 11.5 - 14.5 % LAB HEMATOLOGY METHOD 01/13/2025 4:24 AM EDT [facility] MPV 8.8 8.8 - 12.5 fL LAB HEMATOLOGY METHOD 01/13/2025 4:24 AM EDT [facility] nRBC 0.0 <=0.0 per 100 WBCs LAB HEMATOLOGY METHOD 01/13/2025 4:24 AM EDT [facility] Blood Venous blood specimen / Unknown Venipuncture / Unknown 01/13/2025 3:37 AM EDT 01/13/2025 4:17 AM EDT us Farhad Castillo MD LAB BLOOD ORDERABLES Final Result [facility] [address] [place] [address] * (ABNORMAL) POCT glucose meter (01/12/2025 7:26 [...] for testing. Comment 01/12/2025 7:28 PM EDT [facility] Divorce Attorney ID Niurka Taylor 01/12/2025 7:28 PM EDT [facility] Device ID [id number] 01/12/2025 7:28 PM EDT [facility] Specimen Type POC Capillary 01/12/2025 7:28 PM EDT [facility] Blood Capillary blood specimen / Unknown 01/12/2025 7:26 PM EDT 01/12/2025 7:28 PM EDT Farhad Castillo MD LAB POINT OF CARE TEST DOCKED DEVICE UNSOLICITED RESULTS Final Result Performing Organization Address City/[facility]/ZIP Co de Phone Number [facility] [address] [place] [address] * (ABNORMAL) POCT glucose meter (01/12/2025 4:09 [...] Comment 01/12/2025 4:11 PM EDT [facility] Divorce Attorney ID Vita Holder 01/12/2025 4:11 PM EDT [facility] Device ID [id number] 01/12/2025 4:11 PM EDT [facility] Specimen Type POC Capillary 01/12/2025 4:11 PM EDT [facility] Blood Capillary blood specimen / Unknown 01/12/2025 4:09 PM EDT 01/12/2025 4:11 PM EDT Farhad Castillo MD LAB POINT OF CARE TEST DOCKED DEVICE UNSOLICITED RESULTS Final Result [facility] [address] [place] [address] * (ABNORMAL) POCT glucose meter (01/12/2025 11:54 [...] Comment 01/12/2025 11:56 AM EDT [facility] Divorce Attorney ID Vita Holder 01/12/2025 11:56 AM EDT [facility] Device ID [id number] 01/12/2025 11:56 AM EDT [facility] Specimen Type POC Capillary 01/12/2025 11:56 AM EDT [facility] Blood Capillary blood specimen / Unknown 01/12/2025 11:54 AM EDT 01/12/2025 11:56 AM EDT us Farhad Castillo MD LAB POINT OF CARE TEST DOCKED DEVICE UNSOLICITED RESULTS Final Result Performing Organization Address City/State/[facility] Co de Phone Number [facility] [address] [place] [address] * (ABNORMAL) POCT glucose meter (01/12/2025 8:08 [...] Comment 01/12/2025 8:10 AM EDT [facility] Divorce Attorney ID Vita Holder 01/12/2025 8:10 AM EDT [facility] Device ID [id number] 01/12/2025 8:10 AM EDT [facility] Specimen Type POC Capillary 01/12/2025 8:10 AM EDT [facility] Blood Capillary blood specimen / Unknown 01/12/2025 8:08 AM EDT 01/12/2025 8:10 AM EDT us Farhad K Pandalai MD LAB POINT OF CARE TEST DOCKED DEVICE UNSOLICITED RESULTS Final Result Performing Organization Address City/[facility]/ZIP Co de Phone Number [facility] [address] [place] [address] * Phosphorus (01/12/2025 3:39 AM EDT) Phosphorus, Plasma 3.1 2.5 - 4.5 mg/dL 01/12/2025 4:34 AM EDT [facility] Blood Venous blood specimen / Unknown Venipuncture / Unknown 01/12/2025 3:39 AM EDT 01/12/2025 4:06 AM EDT us Farhad Castillo MD LAB BLOOD ORDERABLES Final Result Performing Organization Address City/[facility] Co de Phone Number [facility] [address] [place] [address] * Magnesium (01/12/2025 3:39 AM EDT) Magnesium, Plasma 1.9 1.9 - 2.4 mg/dL 01/12/2025 4:34 AM EDT [facility] Blood Venous blood specimen / Unknown Venipuncture / Unknown 01/12/2025 3:39 AM EDT 01/12/2025 4:06 AM EDT us Farhad Castillo MD LAB BLOOD ORDERABLES Final Result Performing Organization Address City/[facility]/ZIP Co de Phone Number [facility] [address] [place] [address] * (ABNORMAL) Comprehensive metabolic panel (01/12/2025 3:39 AM EDT) Glucose, Plasma 139(H) 74 - 99 mg/dL 01/12/2025 4:34 AM EDT [facility] BUN, Plasma 7(L) 8 - 23 mg/dL 01/12/2025 4:34 AM EDT [facility] Creatinine, Plasma 0.77 0.70 - 1.20 mg/dL 01/12/2025 4:34 AM EDT [facility] BUN/Creatinine Ratio 9 01/12/2025 4:34 AM EDT [facility] Sodium, Plasma 137 136 - 145 mmol/L 01/12/2025 4:34 AM EDT [facility] Potassium, Plasma 3.7 3.6 - 4.9 mmol/L 01/12/2025 4:34 AM EDT [facility] Chloride, Plasma 105 97 - 107 mmol/L 01/12/2025 4:34 AM EDT [facility] CO2, Plasma 23 22 - 29 mmol/L 01/12/2025 4:34 AM EDT [facility] Anion Gap 9 6 - 16 mmol/L 01/12/2025 4:34 AM EDT [facility] Total Calcium, Plasma 8.4(L) 8.9 - 10.2 mg/dL 01/12/2025 4:34 AM EDT [facility] Total Protein 5.5(L) 6.3 - 7.9 g/dL 01/12/2025 4:34 AM EDT [facility] Albumin, Plasma 2.7(L) 3.5 - 5.2 g/dL 01/12/2025 4:34 AM EDT [facility] AST, Plasma 22 10 - 50 U/L 01/12/2025 4:34 AM EDT [facility] ALT, Plasma 16 10 - 50 U/L 01/12/2025 4:34 AM EDT [facility] Alkaline Phosphatase, Plasma 65 40 - 115 U/L 01/12/2025 4:34 AM EDT [facility] Total Bilirubin, Plasma 0.4 0.2 - 1.1 mg/dL 01/12/2025 4:34 AM EDT [facility] eGFRcr 102.5 mL/min/1.7 3m*2 01/12/2025 4:34 AM EDT [facility] Comment:Reported eGFRcr in m L/min/1.73m2 is based the CKD-EPI 2020 equation that does not use a race coefficient. Blood Venous blood specimen / Unknown Venipuncture / Unknown 01/12/2025 3:39 AM EDT 01/12/2025 4:06 AM EDT us Farhad Castillo MD LAB BLOOD ORDERABLES Final Result [facility] [address] [place] [address] * (ABNORMAL) CBC W/O Differential (01/12/2025 3:39 AM EDT) WBC Count 10.27 3.70 - 10.30 10*3/uL LAB HEMATOLOGY METHOD 01/12/2025 4:19 AM EDT [facility] RBC Count 3.40(L) 4.60 - 6.10 10*6/uL LAB HEMATOLOGY METHOD 01/12/2025 4:19 AM EDT [facility] HGB 10.2(L) 13.7 - 17.5 g/dL LAB HEMATOLOGY METHOD 01/12/2025 4:19 AM EDT [facility] HCT 31.0(L) 40.0 - 51.0 % LAB HEMATOLOGY METHOD 01/12/2025 4:19 AM EDT [facility] Platelet Count 250 155 - 369 10*3/uL LAB HEMATOLOGY METHOD 01/12/2025 4:19 AM EDT [facility] MCV 91 79 - 98 fL LAB HEMATOLOGY METHOD 01/12/2025 4:19 AM EDT [facility] MCH 30.0 26.0 - 32.0 pg LAB HEMATOLOGY METHOD 01/12/2025 4:19 AM EDT [facility] MCHC 32.9 30.7 - 35.5 g/dL LAB HEMATOLOGY METHOD 01/12/2025 4:19 AM EDT [facility] RDW 13.3 11.5 - 14.5 % LAB HEMATOLOGY METHOD 01/12/2025 4:19 AM EDT [facility] MPV 8.7(L) 8.8 - 12.5 fL LAB HEMATOLOGY METHOD 01/12/2025 4:19 AM EDT [facility] nRBC 0.0 <=0.0 per 100 WBCs LAB HEMATOLOGY METHOD 01/12/2025 4:19 AM EDT [facility] Blood Venous blood specimen / Unknown Venipuncture / Unknown 01/12/2025 3:39 AM EDT 01/12/2025 4:07 AM EDT Farhad Castillo MD LAB BLOOD ORDERABLES Final Result Performing Organization Address City/[facility]/ZIP Co de Phone Number [facility] [address] [place] [address] * (ABNORMAL) POCT glucose meter (01/11/2025 7:57 PM EDT) POCT Glucose 146(H) 74 - 99 mg/dL 01/11/2025 7:59 PM EDT [facility] Comment:Accuracy of a [...] Comment 01/11/2025 7:59 PM EDT [facility] Divorce Attorney ID Bere Wheeler 025 7:59 PM EDT [facility] Device ID [id number] 01/11/2025 7:59 PM EDT [facility] Specimen Type POC Capillary 01/11/2025 7:59 PM EDT [facility] Blood Capillary blood specimen / Unknown 01/11/2025 7:57 PM EDT 01/11/2025 7:59 PM EDT Farhad Castillo MD LAB POINT OF CARE TEST DOCKED DEVICE UNSOLICITED RESULTS Final Result Performing Organization Address City/[facility] Co de Phone Number [facility] [address] [place] [address] * (ABNORMAL) POCT glucose meter (01/11/2025 4:42 [...] 01/11/2025 4:45 PM EDT [facility] Divorce Attorney ID Domenica Hdz 01/11/2025 4:45 PM EDT [facility] Device ID [id number] 01/11/2025 4:45 PM EDT [facility] Specimen Type POC Capillary 01/11/2025 4:45 PM EDT [facility] Blood Capillary blood specimen / Unknown 01/11/2025 4:42 PM EDT 01/11/2025 4:45 PM EDT us Farhad Castillo MD LAB POINT OF CARE TEST DOCKED DEVICE UNSOLICITED RESULTS Final Result Performing Organization Address City/[facility] Co de Phone Number [facility] [address] [place] [address] * (ABNORMAL) POCT glucose meter (01/11/2025 11:33 [...] 01/11/2025 11:38 AM EDT [facility] Divorce Attorney ID Domenica Hdz 01/11/2025 11:38 AM EDT [facility] Device ID [id number] 01/11/2025 11:38 AM EDT [facility] Specimen Type POC Capillary 01/11/2025 11:38 AM EDT [facility] Blood Capillary blood specimen / Unknown 01/11/2025 11:33 AM EDT 01/11/2025 11:38 AM EDT us Farhad Castillo MD LAB POINT OF CARE TEST DOCKED DEVICE UNSOLICITED RESULTS Final Result Performing Organization Address City/[facility]/ZIP Co de Phone Number [facility] [address] [place] [address] * (ABNORMAL) POCT glucose meter (01/11/2025 9:01 AM EDT) Pathologist [facility] POCT Glucose 129(H) 74 - 99 mg/dL [...] Comment 01/11/2025 9:09 AM EDT [facility] Divorce Attorney ID Domencia Hdz 01/11/2025 9:09 AM EDT [facility] Device ID [id number] 01/11/2025 9:09 AM EDT [facility] Specimen Type POC Capillary 01/11/2025 9:09 AM EDT [facility] Blood Capillary blood specimen / Unknown 01/11/2025 9:01 AM EDT 01/11/2025 9:09 AM EDT us Farhad Castillo MD LAB POINT OF CARE TEST DOCKED DEVICE UNSOLICITED RESULTS Final Result Performing Organization Address City/State/[facility] Co de Phone Number [facility] [address] [place] [address] * (ABNORMAL) POCT glucose meter (01/11/2025 5:37 AM EDT) Pathologist [facility] POCT Glucose 105(H) 74 - 99 mg/dL [...] 01/11/2025 5:39 AM EDT [facility] Divorce Attorney ID Bere Wheeler 025 5:39 AM EDT [facility] Device ID [id number] 01/11/2025 5:39 AM EDT [facility] Specimen Type POC Capillary 01/11/2025 5:39 AM EDT [facility] Blood Capillary blood specimen / Unknown 01/11/2025 5:37 AM EDT 01/11/2025 5:39 AM EDT us Farhad Castillo MD LAB POINT OF CARE TEST DOCKED DEVICE UNSOLICITED RESULTS Final Result Performing Organization Address City/[facility]/ZIP Co de Phone Number [facility] [address] [place] [address] * Phosphorus (01/11/2025 3:49 AM EDT) Phosphorus, Plasma 3.4 2.5 - 4.5 mg/dL 01/11/2025 4:49 AM EDT [facility] Blood Venous blood specimen / Unknown Venipuncture / Unknown 01/11/2025 3:49 AM EDT 01/11/2025 4:19 AM EDT us Farhad Castillo MD LAB BLOOD ORDERABLES Final Result Performing Organization Address City/[facility]/ZIP Co de Phone Number [facility] [address] [place] [address] * Magnesium (01/11/2025 3:49 AM EDT) Magnesium, Plasma 1.9 1.9 - 2.4 mg/dL 01/11/2025 4:49 AM EDT [facility] Blood Venous blood specimen / Unknown Venipuncture / Unknown 01/11/2025 3:49 AM EDT 01/11/2025 4:19 AM EDT us Farhad Castillo MD LAB BLOOD ORDERABLES Final Result Performing Organization Address City/[facility]/ZIP Co de Phone Number [facility] [address] [place] [address] * (ABNORMAL) Comprehensive metabolic panel (01/11/2025 3:49 AM EDT) Glucose, Plasma 105(H) 74 - 99 mg/dL 01/11/2025 4:49 AM EDT [facility] BUN, Plasma 8 8 - 23 mg/dL 01/11/2025 4:49 AM EDT [facility] Creatinine, Plasma 0.75 0.70 - 1.20 mg/dL 01/11/2025 4:49 AM EDT [facility] BUN/Creatinine Ratio 11 01/11/2025 4:49 AM EDT [facility] Sodium, Plasma 136 136 - 145 mmol/L 01/11/2025 4:49 AM EDT [facility] Potassium, Plasma 3.6 3.6 - 4.9 mmol/L 01/11/2025 4:49 AM EDT [facility] Chloride, Plasma 103 97 - 107 mmol/L 01/11/2025 4:49 AM EDT [facility] CO2, Plasma 23 22 - 29 mmol/L 01/11/2025 4:49 AM EDT [facility] Anion Gap 10 6 - 16 mmol/L 01/11/2025 4:49 AM EDT [facility] Total Calcium, Plasma 8.6(L) 8.9 - 10.2 mg/dL 01/11/2025 4:49 AM EDT [facility] Total Protein 5.8(L) 6.3 - 7.9 g/dL 01/11/2025 4:49 AM EDT [facility] Albumin, Plasma 2.7(L) 3.5 - 5.2 g/dL 01/11/2025 4:49 AM EDT [facility] AST, Plasma 29 10 - 50 U/L 01/11/2025 4:49 AM EDT [facility] ALT, Plasma 25 10 - 50 U/L 01/11/2025 4:49 AM EDT [facility] Alkaline Phosphatase, Plasma 66 40 - 115 U/L 01/11/2025 4:49 AM EDT [facility] Total Bilirubin, Plasma 0.4 0.2 - 1.1 mg/dL 01/11/2025 4:49 AM EDT [facility] eGFRcr 103.3 mL/min/1.7 3m*2 01/11/2025 4:49 AM EDT [facility] Comment:Reported eGFRcr in m L/min/1.73m2 is based the CKD-EPI 2020 equation that does not use a race coefficient. Blood Venous blood specimen / Unknown Venipuncture / Unknown 01/11/2025 3:49 AM EDT 01/11/2025 4:19 AM EDT Farhad Castillo MD LAB BLOOD ORDERABLES Final Result [facility] [address] [place] [address] * (ABNORMAL) CBC W/O Differential (01/11/2025 3:49 AM EDT) WBC Count 10.73(H) 3.70 - 10.30 10*3/uL LAB HEMATOLOGY METHOD 01/11/2025 4:32 AM EDT [facility] RBC Count 3.40(L) 4.60 - 6.10 10*6/uL LAB HEMATOLOGY METHOD 01/11/2025 4:32 AM EDT [facility] HGB 10.3(L) 13.7 - 17.5 g/dL LAB HEMATOLOGY METHOD 01/11/2025 4:32 AM EDT [facility] HCT 31.1(L) 40.0 - 51.0 % LAB HEMATOLOGY METHOD 01/11/2025 4:32 AM EDT [facility] Platelet Count 254 155 - 369 10*3/uL LAB HEMATOLOGY METHOD 01/11/2025 4:32 AM EDT [facility] MCV 92 79 - 98 fL LAB HEMATOLOGY METHOD 01/11/2025 4:32 AM EDT [facility] MCH 30.3 26.0 - 32.0 pg LAB HEMATOLOGY METHOD 01/11/2025 4:32 AM EDT [facility] MCHC 33.1 30.7 - 35.5 g/dL LAB HEMATOLOGY METHOD 01/11/2025 4:32 AM EDT [facility] RDW 13.2 11.5 - 14.5 % LAB HEMATOLOGY METHOD 01/11/2025 4:32 AM EDT [facility] MPV 8.7(L) 8.8 - 12.5 fL LAB HEMATOLOGY METHOD 01/11/2025 4:32 AM EDT [facility] nRBC 0.0 <=0.0 per 100 WBCs LAB HEMATOLOGY METHOD 01/11/2025 4:32 AM EDT [facility] Blood Venous blood specimen / Unknown Venipuncture / Unknown 01/11/2025 3:49 AM EDT 01/11/2025 4:20 AM EDT us Farhad Castillo MD LAB BLOOD ORDERABLES Final Result Performing Organization Address City/[facility]/ZIP Co de Phone Number [facility] [address] [place] [address] * (ABNORMAL) POCT glucose meter (01/11/2025 1:02 AM EDT) POCT Glucose 101(H) 74 - 99 mg/dL 01/11/2025 1:04 AM EDT [facility] Comment:Accuracy of [...] Comment 01/11/2025 1:04 AM EDT [facility] Divorce Attorney ID Bere Wheeler 025 1:04 AM EDT [facility] Device ID [id number] 01/11/2025 1:04 AM EDT [facility] Specimen Type POC Capillary 01/11/2025 1:04 AM EDT [facility] Blood Capillary blood specimen / Unknown 01/11/2025 1:02 AM EDT 01/11/2025 1:04 AM EDT us Farhad Castillo MD LAB POINT OF CARE TEST DOCKED DEVICE UNSOLICITED RESULTS Final Result [facility] [address] [place] [address] * POCT glucose meter (01/11/2025 12:34 AM [...] Comment 01/11/2025 12:36 AM EDT [facility] Divorce Attorney ID Bere Wheeler 025 12:36 AM EDT [facility] Device ID [id number] 01/11/2025 12:36 AM EDT [facility] Specimen Type POC Capillary 01/11/2025 12:36 AM EDT [facility] Blood Capillary blood specimen / Unknown 01/11/2025 12:34 AM EDT 01/11/2025 12:36 AM EDT us Farhad Castillo MD LAB POINT OF CARE TEST DOCKED DEVICE UNSOLICITED RESULTS Final Result Performing Organization Address City/State/[facility] Co de Phone Number [facility] [address] [place] [address] * POCT glucose meter (01/10/2025 11:35 PM EDT) [facility] POCT Glucose 90 74 - 99 mg/dL [...] 01/10/2025 11:37 PM EDT [facility] Divorce Attorney ID Bere Wheeler 025 11:37 PM EDT [facility] Device ID [id number] 01/10/2025 11:37 PM EDT [facility] Specimen Type POC Capillary 01/10/2025 11:37 PM EDT [facility] Blood Capillary blood specimen / Unknown 01/10/2025 11:35 PM EDT 01/10/2025 11:37 PM EDT us Farhad Castillo MD LAB POINT OF CARE TEST DOCKED DEVICE UNSOLICITED RESULTS Final Result Performing Organization Address City/[facility]/ZIP Co de Phone Number [facility] [address] [place] [address] * (ABNORMAL) POCT glucose meter (01/10/2025 5:12 PM EDT) POCT Glucose 125(H) 74 - 99 mg/dL [...] Comment 01/10/2025 5:14 PM EDT [facility] Divorce Attorney ID Vita Holder 01/10/2025 5:14 PM EDT [facility] Device ID [id number] 01/10/2025 5:14 PM EDT [facility] Specimen Type POC Capillary 01/10/2025 5:14 PM EDT [facility] Blood Capillary blood specimen / Unknown 01/10/2025 5:12 PM EDT 01/10/2025 5:14 PM EDT Farhad Castillo MD LAB POINT OF CARE TEST DOCKED DEVICE UNSOLICITED RESULTS Final Result Performing Organization Address City/[facility] Co de Phone Number [facility] [address] [place] [address] * POCT glucose meter (01/10/2025 11:26 AM EDT) Pathologist [facility] POCT Glucose 96 74 - 99 mg/dL [...] 01/10/2025 11:28 AM EDT [facility] Divorce Attorney ID Vita Holder 01/10/2025 11:28 AM EDT [facility] Device ID [id number] 01/10/2025 11:28 AM EDT [facility] Specimen Type POC Capillary 01/10/2025 11:28 AM EDT [facility] Blood Capillary blood specimen / Unknown 01/10/2025 11:26 AM EDT 01/10/2025 11:28 AM EDT Farhad Castillo MD LAB POINT OF CARE TEST DOCKED DEVICE UNSOLICITED RESULTS Final Result Performing Organization Address City/State/[facility] Co de Phone Number [facility] [address] [place] [address] * PERIPHERAL IV (SMART[employer] LINK) (01/10/2025 10:19 [...] glucose meter (01/10/2025 6:16 AM EDT) Pathologist [facility] POCT Glucose 111(H) 74 - 99 mg/dL [...] Comment 01/10/2025 6:18 AM EDT [facility] Divorce Attorney ID Cookie Garcia 025 6:18 AM EDT [facility] Device ID [id number] 01/10/2025 6:18 AM EDT [facility] Specimen Type POC Capillary 01/10/2025 6:18 AM EDT [facility] Blood Capillary blood specimen / Unknown 01/10/2025 6:16 AM EDT 01/10/2025 6:18 AM EDT us Farhad Castillo MD LAB POINT OF CARE TEST DOCKED DEVICE UNSOLICITED RESULTS Final Result Performing Organization Address City/[facility] Co de Phone Number [facility] [address] [place] [address] * Phosphorus (01/10/2025 3:56 AM EDT) Phosphorus, Plasma 3.2 2.5 - 4.5 mg/dL 01/10/2025 4:34 AM EDT [facility] Blood Venous blood specimen / Unknown Venipuncture / Unknown 01/10/2025 3:56 AM EDT 01/10/2025 4:03 AM EDT us Farhad Castillo MD LAB BLOOD ORDERABLES Final Result [facility] [address] [place] [address] * Magnesium (01/10/2025 3:56 AM EDT) Magnesium, Plasma 2.1 1.9 - 2.4 mg/dL 01/10/2025 4:34 AM EDT [facility] Blood Venous blood specimen / Unknown Venipuncture / Unknown 01/10/2025 3:56 AM EDT 01/10/2025 4:03 AM EDT Result Kurt Castillo MD LAB BLOOD ORDERABLES Final Result [facility] [address] [place] [address] * (ABNORMAL) Comprehensive metabolic panel (01/10/2025 3:56 AM EDT) Glucose, Plasma 104(H) 74 - 99 mg/dL 01/10/2025 4:34 AM EDT [facility] BUN, Plasma 10 8 - 23 mg/dL 01/10/2025 4:34 AM EDT [facility] Creatinine, Plasma 0.78 0.70 - 1.20 mg/dL 01/10/2025 4:34 AM EDT [facility] BUN/Creatinine Ratio 13 01/10/2025 4:34 AM EDT [facility] Sodium, Plasma 136 136 - 145 mmol/L 01/10/2025 4:34 AM EDT [facility] Potassium, Plasma 4.0 3.6 - 4.9 mmol/L 01/10/2025 4:34 AM EDT [facility] Chloride, Plasma 102 97 - 107 mmol/L 01/10/2025 4:34 AM EDT [facility] CO2, Plasma 23 22 - 29 mmol/L 01/10/2025 4:34 AM EDT [facility] Anion Gap 11 6 - 16 mmol/L 01/10/2025 4:34 AM EDT [facility] Total Calcium, Plasma 8.3(L) 8.9 - 10.2 mg/dL 01/10/2025 4:34 AM EDT [facility] Total Protein 5.7(L) 6.3 - 7.9 g/dL 01/10/2025 4:34 AM EDT [facility] Albumin, Plasma 2.6(L) 3.5 - 5.2 g/dL 01/10/2025 4:34 AM EDT [facility] AST, Plasma 31 10 - 50 U/L 01/10/2025 4:34 AM EDT [facility] ALT, Plasma 35 10 - 50 U/L 01/10/2025 4:34 AM EDT [facility] Alkaline Phosphatase, Plasma 61 40 - 115 U/L 01/10/2025 4:34 AM EDT [facility] Total Bilirubin, Plasma 0.5 0.2 - 1.1 mg/dL 01/10/2025 4:34 AM EDT [facility] eGFRcr 102.1 mL/min/1.7 3m*2 01/10/2025 4:34 AM EDT [facility] Comment:Reported eGFRcr in m L/min/1.73m2 is based the CKD-EPI 2020 equation that does not use a race coefficient. Blood Venous blood specimen / Unknown Venipuncture / Unknown 01/10/2025 3:56 AM EDT 01/10/2025 4:03 AM EDT us Farhad Castillo MD LAB BLOOD ORDERABLES Final Result [facility] [address] [place] [address] * (ABNORMAL) CBC W/O Differential (01/10/2025 3:56 AM EDT) WBC Count 12.33(H) 3.70 - 10.30 10*3/uL LAB HEMATOLOGY METHOD 01/10/2025 4:18 AM EDT [facility] RBC Count 3.60(L) 4.60 - 6.10 10*6/uL LAB HEMATOLOGY METHOD 01/10/2025 4:18 AM EDT [facility] HGB 10.6(L) 13.7 - 17.5 g/dL LAB HEMATOLOGY METHOD 01/10/2025 4:18 AM EDT [facility] HCT 33.1(L) 40.0 - 51.0 % LAB HEMATOLOGY METHOD 01/10/2025 4:18 AM EDT [facility] Platelet Count 244 155 - 369 10*3/uL LAB HEMATOLOGY METHOD 01/10/2025 4:18 AM EDT [facility] MCV 92 79 - 98 fL LAB HEMATOLOGY METHOD 01/10/2025 4:18 AM EDT [facility] MCH 29.4 26.0 - 32.0 pg LAB HEMATOLOGY METHOD 01/10/2025 4:18 AM EDT [facility] MCHC 32.0 30.7 - 35.5 g/dL LAB HEMATOLOGY METHOD 01/10/2025 4:18 AM EDT [facility] RDW 13.3 11.5 - 14.5 % LAB HEMATOLOGY METHOD 01/10/2025 4:18 AM EDT [facility] MPV 9.1 8.8 - 12.5 fL LAB HEMATOLOGY METHOD 01/10/2025 4:18 AM EDT [facility] nRBC 0.0 <=0.0 per 100 WBCs LAB HEMATOLOGY METHOD 01/10/2025 4:18 AM EDT [facility] Blood Venous blood specimen / Unknown Venipuncture / Unknown 01/10/2025 3:56 AM EDT 01/10/2025 4:03 AM EDT us Farhad Castillo MD LAB BLOOD ORDERABLES Final Result [facility] [address] [place] [address] * (ABNORMAL) POCT glucose meter (01/09/2025 11:45 PM EDT) [facility] POCT Glucose 131(H) 74 - 99 mg/dL [...] Comment 01/09/2025 11:52 PM EDT [facility] Divorce Attorney ID ZaCookie mehta 025 11:52 PM EDT [facility] Device ID [id number] 01/09/2025 11:52 PM EDT [facility] Specimen Type POC Capillary 01/09/2025 11:52 PM EDT [facility] Blood Capillary blood specimen / Unknown 01/09/2025 11:45 PM EDT 01/09/2025 11:52 PM EDT us Farhad Castillo MD LAB POINT OF CARE TEST DOCKED DEVICE UNSOLICITED RESULTS Final Result Performing Organization Address [facility] Co de Phone Number [facility] [address] [place] [address] * (ABNORMAL) POCT glucose meter (01/09/2025 5:44 PM EDT) Pathologist [facility] POCT Glucose 126(H) 74 - 99 mg/dL [...] 01/09/2025 5:46 PM EDT [facility] Divorce Attorney ID Cara Adams 01/09/2025 5:46 PM EDT [facility] Device ID [id number] 01/09/2025 5:46 PM EDT [facility] Specimen Type POC Capillary 01/09/2025 5:46 PM EDT [facility] Blood Capillary blood specimen / Unknown 01/09/2025 5:44 PM EDT 01/09/2025 5:46 PM EDT Farhad Castillo MD LAB POINT OF CARE TEST DOCKED DEVICE UNSOLICITED RESULTS Final Result Performing Organization Address [facility] Co de Phone Number [facility] [address] [place] [address] * (ABNORMAL) POCT glucose meter (01/09/2025 11:55 AM EDT) Pathologist [facility] POCT Glucose 119(H) 74 - 99 mg/dL [...] 01/09/2025 11:57 AM EDT [facility] Divorce Attorney ID Cara Adams 01/09/2025 11:57 AM EDT [facility] Device ID [id number] 01/09/2025 11:57 AM EDT [facility] Specimen Type POC Capillary 01/09/2025 11:57 AM EDT [facility] Blood Capillary blood specimen / Unknown 01/09/2025 11:55 AM EDT 01/09/2025 11:57 AM EDT us Farhad Castillo MD LAB POINT OF CARE TEST DOCKED DEVICE UNSOLICITED RESULTS Final Result Performing Organization Address City/[facility]/ZIP Co de Phone Number [facility] [address] [place] [address] * (ABNORMAL) Phosphorus (01/09/2025 3:54 AM EDT) Phosphorus, Plasma 2.4(L) 2.5 - 4.5 mg/dL 01/09/2025 4:34 AM EDT [facility] Blood Venous blood specimen / Unknown Venipuncture / Unknown 01/09/2025 3:54 AM EDT 01/09/2025 3:59 AM EDT us Farhad Castillo MD LAB BLOOD ORDERABLES Final Result Performing Organization Address City/[facility]/ZIP Co de Phone Number [facility] [address] [place] [address] * (ABNORMAL) Magnesium (01/09/2025 3:54 AM EDT) Magnesium, Plasma 1.8(L) 1.9 - 2.4 mg/dL 01/09/2025 4:34 AM EDT [facility] Blood Venous blood specimen / Unknown Venipuncture / Unknown 01/09/2025 3:54 AM EDT 01/09/2025 3:59 AM EDT us Farhad Castillo MD LAB BLOOD ORDERABLES Final Result Performing Organization Address City/[facility]/ZIP Co de Phone Number [facility] [address] [place] [address] * (ABNORMAL) Comprehensive metabolic panel (01/09/2025 3:54 AM EDT) [facility] Glucose, Plasma 131(H) 74 - 99 mg/dL 01/09/2025 4:34 AM EDT [facility] BUN, Plasma 10 8 - 23 mg/dL 01/09/2025 4:34 AM EDT [facility] Creatinine, Plasma 0.79 0.70 - 1.20 mg/dL 01/09/2025 4:34 AM EDT [facility] BUN/Creatinine Ratio 13 01/09/2025 4:34 AM EDT [facility] Sodium, Plasma 134(L) 136 - 145 mmol/L 01/09/2025 4:34 AM EDT [facility] Potassium, Plasma 4.0 3.6 - 4.9 mmol/L 01/09/2025 4:34 AM EDT [facility] Chloride, Plasma 102 97 - 107 mmol/L 01/09/2025 4:34 AM EDT [facility] CO2, Plasma 24 22 - 29 mmol/L 01/09/2025 4:34 AM EDT [facility] Anion Gap 8 6 - 16 mmol/L 01/09/2025 4:34 AM EDT [facility] Total Calcium, Plasma 8.3(L) 8.9 - 10.2 mg/dL 01/09/2025 4:34 AM EDT [facility] Total Protein 5.5(L) 6.3 - 7.9 g/dL 01/09/2025 4:34 AM EDT [facility] Albumin, Plasma 2.8(L) 3.5 - 5.2 g/dL 01/09/2025 4:34 AM EDT [facility] AST, Plasma 50 10 - 50 U/L 01/09/2025 4:34 AM EDT [facility] ALT, Plasma 52(H) 10 - 50 U/L 01/09/2025 4:34 AM EDT [facility] Alkaline Phosphatase, Plasma 64 40 - 115 U/L 01/09/2025 4:34 AM EDT [facility] Total Bilirubin, Plasma 0.6 0.2 - 1.1 mg/dL 01/09/2025 4:34 AM EDT [facility] eGFRcr 101.7 mL/min/1.7 3m*2 01/09/2025 4:34 AM EDT [facility] Comment:Reported eGFRcr in m L/min/1.73m2 is based the CKD-EPI 2020 equation that does not use a race coefficient. Blood Venous blood specimen / Unknown Venipuncture / Unknown 01/09/2025 3:54 AM EDT 01/09/2025 3:59 AM EDT us Farhad Castillo MD LAB BLOOD ORDERABLES Final Result [facility] [address] [place] [address] * (ABNORMAL) CBC W/O Differential (01/09/2025 3:54 AM EDT) WBC Count 14.81(H) 3.70 - 10.30 10*3/uL LAB HEMATOLOGY METHOD 01/09/2025 4:15 AM EDT [facility] RBC Count 3.53(L) 4.60 - 6.10 10*6/uL LAB HEMATOLOGY METHOD 01/09/2025 4:15 AM EDT [facility] HGB 10.5(L) 13.7 - 17.5 g/dL LAB HEMATOLOGY METHOD 01/09/2025 4:15 AM EDT [facility] HCT 32.5(L) 40.0 - 51.0 % LAB HEMATOLOGY METHOD 01/09/2025 4:15 AM EDT [facility] Platelet Count 211 155 - 369 10*3/uL LAB HEMATOLOGY METHOD 01/09/2025 4:15 AM EDT [facility] MCV 92 79 - 98 fL LAB HEMATOLOGY METHOD 01/09/2025 4:15 AM EDT [facility] MCH 29.7 26.0 - 32.0 pg LAB HEMATOLOGY METHOD 01/09/2025 4:15 AM EDT [facility] MCHC 32.3 30.7 - 35.5 g/dL LAB HEMATOLOGY METHOD 01/09/2025 4:15 AM EDT [facility] RDW 13.4 11.5 - 14.5 % LAB HEMATOLOGY METHOD 01/09/2025 4:15 AM EDT [facility] MPV 8.9 8.8 - 12.5 fL LAB HEMATOLOGY METHOD 01/09/2025 4:15 AM EDT [facility] nRBC 0.0 <=0.0 per 100 WBCs LAB HEMATOLOGY METHOD 01/09/2025 4:15 AM EDT [facility] Blood Venous blood specimen / Unknown Venipuncture / Unknown 01/09/2025 3:54 AM EDT 01/09/2025 4:02 AM EDT us Farhad Castillo MD LAB BLOOD ORDERABLES Final Result Performing Organization Address City/[facility] Co de Phone Number [facility] [address] [place] [address] * (ABNORMAL) POCT glucose meter (01/08/2025 11:55 PM EDT) [facility] Signature POCT Glucose 141(H) 74 - 99 mg/dL 01/08/2025 11:57 PM EDT [facility] Comment:Accuracy of a [...] Comment 01/08/2025 11:57 PM EDT [facility] Divorce Attorney ID Cookie Garcia 025 11:57 PM EDT [facility] Device ID [id number] 01/08/2025 11:57 PM EDT [facility] Specimen Type POC Capillary 01/08/2025 11:57 PM EDT [facility] Blood Capillary blood specimen / Unknown 01/08/2025 11:55 PM EDT 01/08/2025 11:57 PM EDT us Farhad Castillo MD LAB POINT OF CARE TEST DOCKED DEVICE UNSOLICITED RESULTS Final Result Performing Organization Address City/[facility]/ZIP Co de Phone Number [facility] [address] [place] [address] * (ABNORMAL) POCT glucose meter (01/08/2025 6:21 PM EDT) [facility] POCT Glucose 160(H) 74 - 99 mg/dL [...] Comment 01/08/2025 6:22 PM EDT [facility] Divorce Attorney ID Nancy Hughes 01/08/2025 6:22 PM EDT [facility] Device ID [id number] 01/08/2025 6:22 PM EDT [facility] Specimen Type POC Capillary 01/08/2025 6:22 PM EDT [facility] Blood Capillary blood specimen / Unknown 01/08/2025 6:21 PM EDT 01/08/2025 6:22 PM EDT Farhad Castillo MD LAB POINT OF CARE TEST DOCKED DEVICE UNSOLICITED RESULTS Final Result [facility] [address] [place] [address] * (ABNORMAL) POCT glucose meter (01/08/2025 2:21 PM EDT) [facility] POCT Glucose 197(H) 74 - 99 mg/dL [...] 01/08/2025 2:23 PM EDT [facility] Divorce Attorney ID Mayra Jefferson 01/08/2025 2:23 PM EDT [facility] Device ID [id number] 01/08/2025 2:23 PM EDT [facility] Specimen Type POC Capillary 01/08/2025 2:23 PM EDT [facility] Blood Capillary blood specimen / Unknown 01/08/2025 2:21 PM EDT 01/08/2025 2:23 PM EDT Farhad Castillo MD LAB POINT OF CARE TEST DOCKED DEVICE UNSOLICITED RESULTS Final Result [facility] [address] [place] [address] * XR Abdomen 1 View (01/08/2025 10:12 [...] abdomen. COMPARISON: Abdominal radiograph 01/08/2025 FINDINGS: Limited [id number] abdominal radiograph for the purpose of locating tube position. The tip and side port of the nasogastric tube are within the proximal stomach. Procedure Note Kareem Marie MD - 01/08/2025 CLINICAL INDICATION: NGT confirmation TECHNIQUE: Supine radiograph of the abdomen. COMPARISON: Abdominal radiograph 01/08/2025 FINDINGS: Limited [id number] abdominal radiograph for the purpose of locatingtube [...] MD on 01/08/2025 11:54 AM us Paulo G Misty [employer]ODUCT SAF[employer]Y TEST ENGINEER IMG XR PROCEDURES Final Resul t * (ABNORMAL) POCT glucose meter (01/08/2025 8:32 AM EDT) POCT Glucose 227(H) 74 - 99 mg/dL 01/08/2025 8:34 AM EDT [facility] Comment:Accuracy of [...] Comment 01/08/2025 8:34 AM EDT [facility] Divorce Attorney ID Mayra Jefferson 01/08/2025 8:34 AM EDT [facility] Device ID [id number] 01/08/2025 8:34 AM EDT [facility] Specimen Type POC Capillary 01/08/2025 8:34 AM EDT [facility] Blood Capillary blood specimen / Unknown 01/08/2025 8:32 AM EDT 01/08/2025 8:34 AM EDT us Farhad Castillo MD LAB POINT OF CARE TEST DOCKED DEVICE UNSOLICITED RESULTS Final Result [facility] [address] [place] [address] * XR Abdomen 1 View (01/08/2025 8:20 [...] MD on 01/08/2025 9:19 AM Paulo Jay [employer]ODUCT SAFETY TEST ENGINEER IMG XR PROCEDURES Final Resul t * (ABNORMAL) Phosphorus (01/08/2025 3:05 AM EDT) Phosphorus, Plasma 2.3(L) 2.5 - 4.5 mg/dL 01/08/2025 3:54 AM EDT [facility] Blood Venous blood specimen / Unknown Venipuncture / Unknown 01/08/2025 3:05 AM EDT 01/08/2025 3:14 AM EDT us Farhad Castillo MD LAB BLOOD ORDERABLES Final Result Performing Organization Address City/[facility]/ZIP Co de Phone Number [facility] [address] [place] [address] * Magnesium (01/08/2025 3:05 AM EDT) Magnesium, Plasma 2.1 1.9 - 2.4 mg/dL 01/08/2025 3:54 AM EDT [facility] Blood Venous blood specimen / Unknown Venipuncture / Unknown 01/08/2025 3:05 AM EDT 01/08/2025 3:14 AM EDT us Farhad Castillo MD LAB BLOOD ORDERABLES Final Result Performing Organization Address [facility]/ZIP Co de Phone Number [facility] [address] [place] [address] * (ABNORMAL) Comprehensive metabolic panel (01/08/2025 3:05 AM EDT) Glucose, Plasma 188(H) 74 - 99 mg/dL 01/08/2025 3:54 AM EDT [facility] BUN, Plasma 13 8 - 23 mg/dL 01/08/2025 3:54 AM EDT [facility] Creatinine, Plasma 0.79 0.70 - 1.20 mg/dL 01/08/2025 3:54 AM EDT [facility] BUN/Creatinine Ratio 16 01/08/2025 3:54 AM EDT [facility] Sodium, Plasma 137 136 - 145 mmol/L 01/08/2025 3:54 AM EDT [facility] Potassium, Plasma 4.0 3.6 - 4.9 mmol/L 01/08/2025 3:54 AM EDT [facility] Chloride, Plasma 103 97 - 107 mmol/L 01/08/2025 3:54 AM EDT [facility] CO2, Plasma 22 22 - 29 mmol/L 01/08/2025 3:54 AM EDT [facility] Anion Gap 12 6 - 16 mmol/L 01/08/2025 3:54 AM EDT [facility] Total Calcium, Plasma 8.4(L) 8.9 - 10.2 mg/dL 01/08/2025 3:54 AM EDT [facility] Total Protein 5.9(L) 6.3 - 7.9 g/dL 01/08/2025 3:54 AM EDT [facility] Albumin, Plasma 2.9(L) 3.5 - 5.2 g/dL 01/08/2025 3:54 AM EDT [facility] AST, Plasma 116(H) 10 - 50 U/L 01/08/2025 3:54 AM EDT [facility] ALT, Plasma 91(H) 10 - 50 U/L 01/08/2025 3:54 AM EDT [facility] Alkaline Phosphatase, Plasma 62 40 - 115 U/L 01/08/2025 3:54 AM EDT [facility] Total Bilirubin, Plasma 0.9 0.2 - 1.1 mg/dL 01/08/2025 3:54 AM EDT [facility] eGFRcr 101.7 mL/min/1.7 3m*2 01/08/2025 3:54 AM EDT [facility] Comment:Reported eGFRcr in m L/min/1.73m2 is based the CKD-EPI 2020 equation that does not use a race coefficient. Blood Venous blood specimen / Unknown Venipuncture / Unknown 01/08/2025 3:05 AM EDT 01/08/2025 3:14 AM EDT us Farhad Castillo MD LAB BLOOD ORDERABLES Final Result [facility] [address] [place] [address] * (ABNORMAL) CBC W/O Differential (01/08/2025 3:05 AM EDT) WBC Count 19.28(H) 3.70 - 10.30 10*3/uL LAB HEMATOLOGY METHOD 01/08/2025 3:25 AM EDT [facility] RBC Count 3.88(L) 4.60 - 6.10 10*6/uL LAB HEMATOLOGY METHOD 01/08/2025 3:25 AM EDT [facility] HGB 11.7(L) 13.7 - 17.5 g/dL LAB HEMATOLOGY METHOD 01/08/2025 3:25 AM EDT [facility] HCT 35.7(L) 40.0 - 51.0 % LAB HEMATOLOGY METHOD 01/08/2025 3:25 AM EDT [facility] Platelet Count 244 155 - 369 10*3/uL LAB HEMATOLOGY METHOD 01/08/2025 3:25 AM EDT [facility] MCV 92 79 - 98 fL LAB HEMATOLOGY METHOD 01/08/2025 3:25 AM EDT [facility] MCH 30.2 26.0 - 32.0 pg LAB HEMATOLOGY METHOD 01/08/2025 3:25 AM EDT [facility] MCHC 32.8 30.7 - 35.5 g/dL LAB HEMATOLOGY METHOD 01/08/2025 3:25 AM EDT [facility] RDW 13.7 11.5 - 14.5 % LAB HEMATOLOGY METHOD 01/08/2025 3:25 AM EDT [facility] MPV 9.2 8.8 - 12.5 fL LAB HEMATOLOGY METHOD 01/08/2025 3:25 AM EDT [facility] nRBC 0.0 <=0.0 per 100 WBCs LAB HEMATOLOGY METHOD 01/08/2025 3:25 AM EDT [facility] Blood Venous blood specimen / Unknown Venipuncture / Unknown 01/08/2025 3:05 AM EDT 01/08/2025 3:16 AM EDT us Farhad Castillo MD LAB BLOOD ORDERABLES Final Result [facility] [address] [place] [address] * (ABNORMAL) POCT glucose meter (01/08/2025 2:59 [...] Comment 01/08/2025 3:01 AM EDT [facility] Divorce Attorney ID Flor Glez 01/08/2025 3:01 AM EDT [facility] Device ID [id number] 01/08/2025 3:01 AM EDT [facility] Specimen Type POC Capillary 01/08/2025 3:01 AM EDT [facility] Blood Capillary blood specimen / Unknown 01/08/2025 2:59 AM EDT 01/08/2025 3:01 AM EDT Farhad Castillo MD LAB POINT OF CARE TEST DOCKED DEVICE UNSOLICITED RESULTS Final Result [facility] [address] [place] [address] * (ABNORMAL) POCT glucose meter (01/07/2025 8:31 PM EDT) [facility] POCT Glucose 243(H) 74 - 99 mg/dL [...] Comment 01/07/2025 8:32 PM EDT [facility] Divorce Attorney ID Flor Glez 01/07/2025 8:32 PM EDT [facility] Device ID [id number] 01/07/2025 8:32 PM EDT [facility] Specimen Type POC Capillary 01/07/2025 8:32 PM EDT [facility] Blood Capillary blood specimen / Unknown 01/07/2025 8:31 PM EDT 01/07/2025 8:32 PM EDT Farhad Castillo MD LAB POINT OF CARE TEST DOCKED DEVICE UNSOLICITED RESULTS Final Result Performing Organization Address City/[facility]/ZIP Co de Phone Number [facility] [address] [place] [address] * (ABNORMAL) POCT glucose meter (01/07/2025 5:05 [...] Comment 01/07/2025 5:09 PM EDT [facility] Divorce Attorney ID Myra Pete 01/08/20 5:09 PM EDT [facility] LAB Device ID [id number] 01/07/2025 5:09 PM EDT [facility] Specimen Type POC Capillary 01/07/2025 5:09 PM EDT [facility] Blood Capillary blood specimen / Unknown 01/07/2025 5:05 PM EDT 01/07/2025 5:09 PM EDT Farhad Castillo MD LAB POINT OF CARE TEST DOCKED DEVICE UNSOLICITED RESULTS Final Result Performing Organization Address City/[facility]/ZIP Co de Phone Number [facility] [address] [place] [address] * (ABNORMAL) POCT glucose meter (01/07/2025 12:22 PM EDT) Pathologist [facility] POCT Glucose 300(H) 74 - 99 mg/dL [...] Comment 01/07/2025 12:26 PM EDT [facility] Divorce Attorney ID Myra Pete 01/08/20 12:26 PM EDT [facility] LAB Device ID [id number] 01/07/2025 12:26 PM EDT [facility] Specimen Type POC Capillary 01/07/2025 12:26 PM EDT [facility] Blood Capillary blood specimen / Unknown 01/07/2025 12:22 PM EDT 01/07/2025 12:26 PM EDT us Farhad Castillo MD LAB POINT OF CARE TEST DOCKED DEVICE UNSOLICITED RESULTS Final Result Performing Organization Address City/[facility] Co de Phone Number [facility] [address] [place] [address] * (ABNORMAL) POCT glucose meter (01/07/2025 5:19 [...] Comment 01/07/2025 5:21 AM EDT [facility] Divorce Attorney ID Bere Wheeler 025 5:21 AM EDT [facility]ARE LAB Device ID [id number] 01/07/2025 5:21 AM EDT [facility] Specimen Type POC Capillary 01/07/2025 5:21 AM EDT [facility] Blood Capillary blood specimen / Unknown 01/07/2025 5:19 AM EDT 01/07/2025 5:21 AM EDT us Farhad Castillo MD LAB POINT OF CARE TEST DOCKED DEVICE UNSOLICITED RESULTS Final Result Performing Organization Address City/[facility] Co de Phone Number [facility] [address] [place] [address] * Phosphorus (01/07/2025 3:26 AM EDT) Phosphorus, Plasma 3.5 2.5 - 4.5 mg/dL 01/07/2025 4:18 AM EDT [facility] Blood Venous blood specimen / Unknown Venipuncture / Unknown 01/07/2025 3:26 AM EDT 01/07/2025 3:50 AM EDT us Farhad Castillo MD LAB BLOOD ORDERABLES Final Result [facility] [address] [place] [address] * Magnesium (01/07/2025 3:26 AM EDT) Magnesium, Plasma 1.9 1.9 - 2.4 mg/dL 01/07/2025 4:18 AM EDT [facility] Blood Venous blood specimen / Unknown Venipuncture / Unknown 01/07/2025 3:26 AM EDT 01/07/2025 3:50 AM EDT us Farhad Castillo MD LAB BLOOD ORDERABLES Final Result [facility] [address] [place] [address] * (ABNORMAL) Comprehensive metabolic panel (01/07/2025 3:26 AM EDT) Glucose, Plasma 312(H) 74 - 99 mg/dL 01/07/2025 4:18 AM EDT [facility] BUN, Plasma 20 8 - 23 mg/dL 01/07/2025 4:18 AM EDT [facility] Creatinine, Plasma 0.93 0.70 - 1.20 mg/dL 01/07/2025 4:18 AM EDT [facility] BUN/Creatinine Ratio 22 01/07/2025 4:18 AM EDT [facility] Sodium, Plasma 137 136 - 145 mmol/L 01/07/2025 4:18 AM EDT [facility] Potassium, Plasma 4.9 3.6 - 4.9 mmol/L 01/07/2025 4:18 AM EDT [facility] Chloride, Plasma 104 97 - 107 mmol/L 01/07/2025 4:18 AM EDT [facility] CO2, Plasma 19(L) 22 - 29 mmol/L 01/07/2025 4:18 AM EDT [facility] Anion Gap 14 6 - 16 mmol/L 01/07/2025 4:18 AM EDT [facility] Total Calcium, Plasma 8.5(L) 8.9 - 10.2 mg/dL 01/07/2025 4:18 AM EDT [facility] Total Protein 6.2(L) 6.3 - 7.9 g/dL 01/07/2025 4:18 AM EDT [facility] Albumin, Plasma 3.3(L) 3.5 - 5.2 g/dL 01/07/2025 4:18 AM EDT [facility] AST, Plasma 284(H) 10 - 50 U/L 01/07/2025 4:18 AM EDT [facility] ALT, Plasma 125(H) 10 - 50 U/L 01/07/2025 4:18 AM EDT [facility] Alkaline Phosphatase, Plasma 69 40 - 115 U/L 01/07/2025 4:18 AM EDT [facility] Total Bilirubin, Plasma 0.8 0.2 - 1.1 mg/dL 01/07/2025 4:18 AM EDT [facility] eGFRcr 94.0 mL/min/1.7 3m*2 01/07/2025 4:18 AM EDT [facility] Comment:Reported eGFRcr in m L/min/1.73m2 is based the CKD-EPI 2020 equation that does not use a race coefficient. Blood Venous blood specimen / Unknown Venipuncture / Unknown 01/07/2025 3:26 AM EDT 01/07/2025 3:50 AM EDT us Farhad Castillo MD LAB BLOOD ORDERABLES Final Result [facility] [address] [place] [address] * (ABNORMAL) CBC W/O Differential (01/07/2025 3:26 AM EDT) WBC Count 18.29(H) 3.70 - 10.30 10*3/uL LAB HEMATOLOGY METHOD 01/07/2025 3:58 AM EDT [facility] RBC Count 4.42(L) 4.60 - 6.10 10*6/uL LAB HEMATOLOGY METHOD 01/07/2025 3:58 AM EDT [facility] HGB 13.1(L) 13.7 - 17.5 g/dL LAB HEMATOLOGY METHOD 01/07/2025 3:58 AM EDT [facility] HCT 40.0 40.0 - 51.0 % LAB HEMATOLOGY METHOD 01/07/2025 3:58 AM EDT [facility] Platelet Count 284 155 - 369 10*3/uL LAB HEMATOLOGY METHOD 01/07/2025 3:58 AM EDT [facility] MCV 91 79 - 98 fL LAB HEMATOLOGY METHOD 01/07/2025 3:58 AM EDT [facility] MCH 29.6 26.0 - 32.0 pg LAB HEMATOLOGY METHOD 01/07/2025 3:58 AM EDT [facility] MCHC 32.8 30.7 - 35.5 g/dL LAB HEMATOLOGY METHOD 01/07/2025 3:58 AM EDT [facility] RDW 13.5 11.5 - 14.5 % LAB HEMATOLOGY METHOD 01/07/2025 3:58 AM EDT [facility] MPV 9.2 8.8 - 12.5 fL LAB HEMATOLOGY METHOD 01/07/2025 3:58 AM EDT [facility] nRBC 0.0 <=0.0 per 100 WBCs LAB HEMATOLOGY METHOD 01/07/2025 3:58 AM EDT [facility] Blood Venous blood specimen / Unknown Venipuncture / Unknown 01/07/2025 3:26 AM EDT 01/07/2025 3:50 AM EDT us Farhad Castillo MD LAB BLOOD ORDERABLES Final Result [facility] [address] [place] [address] * (ABNORMAL) POCT glucose meter (01/06/2025 11:31 [...] Comment 01/06/2025 11:33 PM EDT [facility] Divorce Attorney ID Bere Wheeler 025 11:33 PM EDT [facility] Device ID [id number] 01/06/2025 11:33 PM EDT [facility] Specimen Type POC Capillary 01/06/2025 11:33 PM EDT [facility] Blood Capillary blood specimen / Unknown 01/06/2025 11:31 PM EDT 01/06/2025 11:33 PM EDT Farhad Castillo MD LAB POINT OF CARE TEST DOCKED DEVICE UNSOLICITED RESULTS Final Result [facility] [address] [place] [address] * (ABNORMAL) Blood gas panel, arterial (01/06/2025 5:03 PM EDT) pH, Arterial 7.35 7.31 - 7.42 LAB HEMATOLOGY METHOD 01/06/2025 5:09 PM EDT [facility] pCO2, Arterial 40 32 - 45 mmHg LAB HEMATOLOGY METHOD 01/06/2025 5:09 PM EDT [facility] pO2, Arterial 109 >80 mmHg LAB HEMATOLOGY METHOD 01/06/2025 5:09 PM EDT [facility] SO2, Measured, Arterial 97 94 - 98 % LAB HEMATOLOGY METHOD 01/06/2025 5:09 PM EDT [facility] Base Excess, Arterial -3.1(L) -2.0 - 3.0 mmol/L LAB HEMATOLOGY METHOD 01/06/2025 5:09 PM EDT [facility] Bicarbonate, Calculated, Arterial 22 22 - 26 mmol/L LAB HEMATOLOGY METHOD 01/06/2025 5:09 PM EDT [facility] Hematocrit, Whole Blood 39.4(L) 40.0 - 51.0 % LAB HEMATOLOGY METHOD 01/06/2025 5:09 PM EDT [facility] Sodium, Whole Blood 139 136 - 145 mmol/L LAB HEMATOLOGY METHOD 01/06/2025 5:09 PM EDT [facility] Potassium, Whole Blood 5.0(H) 3.6 - 4.9 mmol/L LAB HEMATOLOGY METHOD 01/06/2025 5:09 PM EDT [facility] Chloride, Whole Blood 108(H) 97 - 107 mmol/L LAB HEMATOLOGY METHOD 01/06/2025 5:09 PM EDT [facility] Glucose, Whole Blood 227(H) 74 - 99 mg/dL LAB HEMATOLOGY METHOD 01/06/2025 5:09 PM EDT [facility] Ionized Calcium, Whole Blood 4.6 4.6 - 5.1 mg/dL LAB HEMATOLOGY METHOD 01/06/2025 5:09 PM EDT [facility] Lactate, Arterial, Whole Blood 1.9(H) 0.5 - 1.6 mmol/L LAB HEMATOLOGY METHOD 01/06/2025 5:09 PM EDT [facility] Blood Arterial blood specimen / Unknown Arterial Puncture / Unknown 01/06/2025 5:03 PM EDT 01/06/2025 5:08 PM EDT us Cheng Peña MD LAB BLOOD ORDERABLES Final Res ult [facility] [address] [place] [address] * (ABNORMAL) POCT glucose meter (01/06/2025 4:40 PM EDT) Pathologist [facility] POCT Glucose 186(H) 74 - 99 mg/dL [...] Comment 01/06/2025 4:42 PM EDT [facility]ALTH[facility] Divorce Attorney ID Judith Murphy 01/06/2025 4:42 PM EDT [facility]ALTH[facility]ARE LAB Device ID [id number] 01/06/2025 4:42 PM EDT [facility] Specimen Type POC Capillary 01/06/2025 4:42 PM EDT [facility] Blood Capillary blood specimen / Unknown 01/06/2025 4:40 PM EDT 01/06/2025 4:42 PM EDT Farhad Castillo MD LAB POINT OF CARE TEST DOCKED DEVICE UNSOLICITED RESULTS Final Result [facility] [address] [place] [address] * (ABNORMAL) Comprehensive metabolic panel (01/06/2025 4:26 PM EDT) Glucose, Plasma 187(H) 74 - 99 mg/dL 01/06/2025 4:26 PM EDT [facility] BUN, Plasma 21 8 - 23 mg/dL 01/06/2025 4:26 PM EDT [facility] Creatinine, Plasma 0.92 0.70 - 1.20 mg/dL 01/06/2025 4:26 PM EDT [facility] BUN/Creatinine Ratio 23 01/06/2025 4:26 PM EDT [facility] Sodium, Plasma 138 136 - 145 mmol/L 01/06/2025 4:26 PM EDT [facility] Potassium, Plasma 5.5(H) 3.6 - 4.9 mmol/L 01/06/2025 4:26 PM EDT [facility] Chloride, Plasma 105 97 - 107 mmol/L 01/06/2025 4:26 PM EDT [facility] CO2, Plasma 21(L) 22 - 29 mmol/L 01/06/2025 4:26 PM EDT [facility] Anion Gap 12 6 - 16 mmol/L 01/06/2025 4:26 PM EDT [facility] Total Calcium, Plasma 8.4(L) 8.9 - 10.2 mg/dL 01/06/2025 4:26 PM EDT [facility] Total Protein 5.9(L) 6.3 - 7.9 g/dL 01/06/2025 4:26 PM EDT [facility] Albumin, Plasma 3.4(L) 3.5 - 5.2 g/dL 01/06/2025 4:26 PM EDT [facility] AST, Plasma 306(H) 10 - 50 U/L 01/06/2025 4:26 PM EDT [facility] ALT, Plasma 101(H) 10 - 50 U/L 01/06/2025 4:26 PM EDT [facility] Alkaline Phosphatase, Plasma 73 40 - 115 U/L 01/06/2025 4:26 PM EDT [facility] Total Bilirubin, Plasma 0.7 0.2 - 1.1 mg/dL 01/06/2025 4:26 PM EDT [facility] eGFRcr 95.2 mL/min/1.7 3m*2 01/06/2025 4:26 PM EDT [facility] Comment:Reported eGFRcr in m L/min/1.73m2 is based the CKD-EPI 2020 equation that does not use a race coefficient. Blood Venous blood specimen / Unknown 01/06/2025 3:55 PM EDT Andres Rojas [facility] BLOOD ORDERABLES Final Result [facility] [address] [place] [address] * (ABNORMAL) CBC (01/06/2025 4:16 PM EDT) WBC Count 16.98(H) 3.70 - 10.30 10*3/uL LAB HEMATOLOGY METHOD 01/06/2025 4:16 PM EDT [facility] RBC Count 4.22(L) 4.60 - 6.10 10*6/uL LAB HEMATOLOGY METHOD 01/06/2025 4:16 PM EDT [facility] HGB 12.6(L) 13.7 - 17.5 g/dL LAB HEMATOLOGY METHOD 01/06/2025 4:16 PM EDT [facility] HCT 38.9(L) 40.0 - 51.0 % LAB HEMATOLOGY METHOD 01/06/2025 4:16 PM EDT [facility] Platelet Count 307 155 - 369 10*3/uL LAB HEMATOLOGY METHOD 01/06/2025 4:16 PM EDT [facility] MCV 92 79 - 98 fL LAB HEMATOLOGY METHOD 01/06/2025 4:16 PM EDT [facility] MCH 29.9 26.0 - 32.0 pg LAB HEMATOLOGY METHOD 01/06/2025 4:16 PM EDT [facility] MCHC 32.4 30.7 - 35.5 g/dL LAB HEMATOLOGY METHOD 01/06/2025 4:16 PM EDT [facility] RDW 13.4 11.5 - 14.5 % LAB HEMATOLOGY METHOD 01/06/2025 4:16 PM EDT [facility] MPV 9.4 8.8 - 12.5 fL LAB HEMATOLOGY METHOD 01/06/2025 4:16 PM EDT [facility] nRBC 0.0 <=0.0 per 100 WBCs LAB HEMATOLOGY METHOD 01/06/2025 4:16 PM EDT [facility] Blood Venous blood specimen / Unknown 01/06/2025 4:06 PM EDT us Andres Rojas [facility] BLOOD ORDERABLES Final Result [facility] [address] [place] [address] * (ABNORMAL) Blood gas, arterial (01/06/2025 3:36 PM EDT) pH, Arterial 7.32 7.31 - 7.42 LAB HEMATOLOGY METHOD 01/06/2025 3:48 PM EDT [facility] pCO2, Arterial 45 32 - 45 mmHg LAB HEMATOLOGY METHOD 01/06/2025 3:48 PM EDT [facility] pO2, Arterial 178 >80 mmHg LAB HEMATOLOGY METHOD 01/06/2025 3:48 PM EDT [facility] SO2, Measured, Arterial 98 94 - 98 % LAB HEMATOLOGY METHOD 01/06/2025 3:48 PM EDT [facility] Base Excess, Arterial -3.2(L) -2.0 - 3.0 mmol/L LAB HEMATOLOGY METHOD 01/06/2025 3:48 PM EDT [facility] Bicarbonate, Calculated, Arterial 23 22 - 26 mmol/L LAB HEMATOLOGY METHOD 01/06/2025 3:48 PM EDT [facility] Hematocrit, Whole Blood 38.8(L) 40.0 - 51.0 % LAB HEMATOLOGY METHOD 01/06/2025 3:48 PM EDT [facility] Sodium, Whole Blood 138 136 - 145 mmol/L LAB HEMATOLOGY METHOD 01/06/2025 3:48 PM EDT [facility] Potassium, Whole Blood 5.1(H) 3.6 - 4.9 mmol/L LAB HEMATOLOGY METHOD 01/06/2025 3:48 PM EDT [facility] Chloride, Whole Blood 109(H) 97 - 107 mmol/L LAB HEMATOLOGY METHOD 01/06/2025 3:48 PM EDT [facility] Glucose, Whole Blood 189(H) 74 - 99 mg/dL LAB HEMATOLOGY METHOD 01/06/2025 3:48 PM EDT [facility] Ionized Calcium, Whole Blood 4.5(L) 4.6 - 5.1 mg/dL LAB HEMATOLOGY METHOD 01/06/2025 3:48 PM EDT [facility] Lactate, Arterial, Whole Blood 1.8(H) 0.5 - 1.6 mmol/L LAB HEMATOLOGY METHOD 01/06/2025 3:48 PM EDT [facility] Blood Arterial blood specimen / Unknown Arterial Puncture / Unknown 01/06/2025 3:36 PM EDT 01/06/2025 3:47 PM EDT Andres Rojas [facility] LAB BLOOD ORDERABLES Final Result [facility] [address] [place] [address] * (ABNORMAL) Blood gas, arterial (01/06/2025 1:27 PM EDT) pH, Arterial 7.35 7.31 - 7.42 LAB HEMATOLOGY METHOD 01/06/2025 1:32 PM EDT [facility] pCO2, Arterial 40 32 - 45 mmHg LAB HEMATOLOGY METHOD 01/06/2025 1:32 PM EDT [facility] pO2, Arterial 189 >80 mmHg LAB HEMATOLOGY METHOD 01/06/2025 1:32 PM EDT [facility] SO2, Measured, Arterial 98 94 - 98 % LAB HEMATOLOGY METHOD 01/06/2025 1:32 PM EDT [facility] Base Excess, Arterial -3.3(L) -2.0 - 3.0 mmol/L LAB HEMATOLOGY METHOD 01/06/2025 1:32 PM EDT [facility] Bicarbonate, Calculated, Arterial 22 22 - 26 mmol/L LAB HEMATOLOGY METHOD 01/06/2025 1:32 PM EDT [facility] Hematocrit, Whole Blood 37.0(L) 40.0 - 51.0 % LAB HEMATOLOGY METHOD 01/06/2025 1:32 PM EDT [facility] Sodium, Whole Blood 138 136 - 145 mmol/L LAB HEMATOLOGY METHOD 01/06/2025 1:32 PM EDT [facility] Potassium, Whole Blood 4.4 3.6 - 4.9 mmol/L LAB HEMATOLOGY METHOD 01/06/2025 1:32 PM EDT [facility] Chloride, Whole Blood 111(H) 97 - 107 mmol/L LAB HEMATOLOGY METHOD 01/06/2025 1:32 PM EDT [facility] Glucose, Whole Blood 184(H) 74 - 99 mg/dL LAB HEMATOLOGY METHOD 01/06/2025 1:32 PM EDT [facility] Ionized Calcium, Whole Blood 4.4(L) 4.6 - 5.1 mg/dL LAB HEMATOLOGY METHOD 01/06/2025 1:32 PM EDT [facility] Lactate, Arterial, Whole Blood 1.6 0.5 - 1.6 mmol/L LAB HEMATOLOGY METHOD 01/06/2025 1:32 PM EDT [facility] Blood Arterial blood specimen / Unknown Arterial Puncture / Unknown 01/06/2025 1:27 PM EDT 01/06/2025 1:31 PM EDT us Andres Rojas [facility] LAB BLOOD ORDERABLES Final Result [facility] [address] [place] [address] * Surgical Pathology Exam (01/06/2025 12:59 PM EDT) Case Report Surgical Pathology Case: [id number] Authorizing Provider: Heidi March MD Collected: 01/06/2025 1213 Ordering Location: [facility] OPERATING ROOM Received: 01/06/2025 1618 Pathologist: Paulo Morrison MD Specimens: A) - Other (specify site), Partial Omentectomy B) - Other (specify site), Segment 8 partial hepatectomy C) - Gallbladder, gallbladder 01/11/2025 10:28 AM EDT [facility] Final Diagnosis A. OMENTUM, PARTIAL OMENTECTOMY: [...] NEGATIVE FOR TUMOR 01/11/2025 10:28 AM EDT [facility] at 1028 EDT Comment The background liver parenchyma harbors features of chronic liver disease, namely steatohepatitis. Further clinical workup may be indicated for appropriate classification and staging. 01/11/2025 10:28 AM EDT [facility] Clinical Information Metastatic colon cancer to liver (CMS/HCC) [C18.9, C78.7] 01/11/2025 10:28 AM EDT [facility] Gross Description A. PARTIAL OMENTECTOMY [...] cut surface is martino-yellow and lobulated. The access representative section of specimen are submitted as: A1: Bag Liner section of nodule A2-A3: Bag Liner section of specimen Cold Time: 4h 05m [...] nodule. No additional nodule or mass identified. Bag Liner sectioned of specimen are submitted as: B1: [...] grossly identified. Cystic duct margin (en face), access representative sections of gallbladder neck, and body are submitted in cassette C1. Cold Time: 2h 32m YAHIR Toney 01/11/2025 10:28 AM EDT [facility] Note: A resident was involved in the service. I attest I examined the relevant preparations for the specimens and confirmed the diagnosis or interpretation. 01/11/2025 10:28 AM EDT [facility] Tissue Topography unknown / Unknown [...] MD LAB PATHOLOGY ORDERABLES F inal Result [facility] [address] [place] [address] * Surgical Pathology Exam (01/06/2025 12:13 PM EDT) Case Report Surgical Pathology Case: [id number] Authorizing Provider: Heidi March MD Collected: 01/06/2025 1213 Ordering Location: [facility] OPERATING RO[facility] Received: 01/06/2025 1618 Pathologist: Paulo Morrison MD Specimens: A) - Other (specify site), Partial Omentectomy B) - Other (specify site), Segment 8 partial hepatectomy C) - Gallbladder, gallbladder 01/11/2025 10:28 AM EDT [facility] Final Diagnosis A. OMENTUM, PARTIAL [...] NEGATIVE FOR TUMOR 01/11/2025 10:28 AM EDT [facility] at 1028 EDT Comment The background liver parenchyma harbors features of chronic liver disease, namely steatohepatitis. Further clinical workup may be indicated for appropriate classification and staging. 01/11/2025 10:28 AM EDT [facility] Clinical Information Metastatic colon cancer to liver (CMS/HCC) [C18.9, C78.7] 01/11/2025 10:28 AM EDT [facility] Gross Description A. PARTIAL OMENTECTOMY [...] cut surface is martino-yellow and lobulated. The access representative section of specimen are submitted as: A1: Bag Liner section of nodule A2-A3: Bag Liner section of specimen Cold Time: 4h 05m [...] nodule. No additional nodule or mass identified. Bag Liner sectioned of specimen are submitted as: B1: [...] grossly identified. Cystic duct margin (en face), access representative sections of gallbladder neck, and body are submitted in cassette C1. Cold Time: 2h 32m YAHIR Toney 01/11/2025 10:28 AM [facility] Note: A resident was involved in the service. I attest I examined the relevant preparations for the specimens and confirmed the diagnosis or interpretation. 01/11/2025 10:28 AM EDT [facility] Tissue Topography unknown / Unknown [...] MD LAB PATHOLOGY ORDERABLES Fin al Result [facility] [address] [place] [address] * (ABNORMAL) POCT glucose meter (01/06/2025 9:37 [...] Comment 01/06/2025 9:38 AM EDT [facility] Divorce Attorney ID Luiza Ramesh 01/06/2025 9:38 AM EDT [facility] Device ID [id number] 01/06/2025 9:38 AM EDT [facility] Specimen Type POC Capillary 01/06/2025 9:38 AM EDT [facility] Blood Capillary blood specimen / Unknown 01/06/2025 9:37 AM EDT 01/06/2025 9:38 AM EDT us Farhad Castillo MD LAB POINT OF CARE TEST DOCKED DEVICE UNSOLICITED RESULTS Final Result [facility] [address] [place] [address] documented in this encounter Visit Diagnoses Diagnosis [...] Abarca RN)1829 (Given - Provider: Flor Abarca RN)214 (Given [...] Abarca RN) 1726 (Given - Provider: Katelynn Lowery RN) insulin lispro (Admelog) 100 units/mL injection - [...] not met)2027 (Not Given - Provider: Tereza Pham, JAN - Reason: Hold for condition: must add [...] RN) 0845 (Given - Provider: Katelynn Lowery, RN) 0810 (Given - Provider: Katelynn Lowery, RN) potassium chloride CR (Klor-Con) ER tablet [...] documented as of this encounter Care Teams Telecommunications Engineer Relationship Specialty Start Date End Date Tayo Jones MD [address] [place] [address] PCP - General 07/14/24 documented as of this encounter
--- OUTSIDE RECORDS SUMMARY | 2025-01-06 11:02 | XMS_ITS | Encounter Summary ---
Author Organization [facility] Address [address] [id number] Care Team Providers Care Accordion Tuner Name Role Phone Tayo Jones MD Primary Care Provider [phone] Reason for Visit * Auth/Cert (Routine) Specialty Diagnoses / Procedures Referred By Samia pagan Referred To Contact Diagnoses Metastatic colon cancer to liver Metastatic colon cancer to liver (CMS/HCC) [C18.9, C78.7] Procedures TX RESEC LIVER,PART LOBECTOMY TX RPR AA HERNIA 1ST 3-10 CM REDUCIBLE HEPATECTOMY, PARTIAL REPAIR, HERNIA, EPIGASTRIC Farhad Castillo MD [address] [address] Phone: tel: fax: [facility] [address] [place] [phone] Phone: tel: Referral ID Status Reason Start Date Expiration Date Visits Re quested Visits Authorized [id number] 1 1 Encounter Details Date Type Department Care Team (Late st Contact Info) Description 01/06/2025 11:02 AM EDT Anesthesia Event [facility] [address] [place] [phone] Andres Rojas CRNA [address] [place] [address] Celeste Patton CRNA [address] [place] [address] Anesthesia Record Procedure Summary Procedure [...] 1558 Out of Room 1606 Fidel Dilaudid MACHINE CAPTAIN ca rtridge given to sammie Salas RN by pharmacy. Dilaudid MACHINE CAPTAIN cartridge handed off to VIDEO GAME TESTER Judith Murphy. 1606 Handoff to Receiving I [...] Site Prep: Alcohol, Chlorhexidine ; Local Anesth: [place]; Technique: Anatomical landmarks; Inserted by: doc mann; [...] any time in the past 12 m [facility], were you homeless or living in a prison (including now)? No 01/07/2025 [facility] Utilities Answer Date Recorded In the past 12 months has th e [employer], gas, oil, or water company threatened to [...] (Past 1 Month) No 025 9:31 AM EDT Maira Carney RN 2. Non-Specific Active Suici [...] and Staff Patient location during procedure: OR CUSTOMER RESOLUTION SPECIALIST: Andres Rojas CRNA Other anesthesia staff: Bina [...] portions of the procedure(s) and immediately available [facility] services the entire duration. See [...] MD [place] [facility] [place] Past Medical History[1] Family History[2] Social History[3] [...] CAD, CHF, dyspnea, dysrhythmias, pacemaker or past [place]. hypertension: is well controlled. Exercise tolerance is [...] Plan ASA 3 Plan was reviewed with: CUSTOMER RESOLUTION SPECIALIST Anesthesia technique(s) discussed with the patient/family: general Anesthesia plan agreed upon was: general Comment: RAYO phone screen with patient's nurse, [place], [facility]. Anesthetic plan and risks discussed with patient. [...] AM EDT Appointment [facility] Rad[facility] [address] [place] [address] 02/11/2025 9:00 AM EDT Office Visit [facility] Multidisciplinary Oncology Clinic [address] [place] [address] Farhad Castillo MD [address] [address] documented as of this encounter Goals Goal [...] ANESTHESIA PLACEHOLDER Routine 01/06/2025 11:13 AM EDT TX AN ELECTIVE ENDOTRACHEAL AIRWAY Routine 01/06/2025 11:13 [...] ANESTHESIA ORDERABLES Edited Result - Final * TX AN ELECTIVE ENDOTRACHEAL AIRWAY, PB ANESTHESIA PLACEHOLDER (01/06/2025 11:13 AM EDT) Narrative Andres Rojas CRNA - 01/06/2025 11:13 AM EDT Andres Rojas CRNA 01/06/2025 12:11 PM Airway Date/Time: 01/06/2025 11:13 AM Reason: elective Airway not difficult General Information and Staff Patient location during procedure: OR CUSTOMER RESOLUTION SPECIALIST: Andres Rojas CRNA Other anesthesia staff: Bina [...] Atraumatic. No change to dentition. us Kathe ePralta MD ANESTHESIA ORDERABLES Edited Result - Final * PB ANESTHESIA NON-TIMED PROCEDURE PLACEHOLDER (01/06/2025 10:08 AM EDT) Narrative Cheng Peña MD - 01/06/2025 10:08 AM EDT Cehng Peña MD 01/06/2025 11:23 AM Epidural Block [...] documented as of this encounter Care Teams Accordion Tuner Relationship Specialty Start Date End Date Tayo Jones MD [address] [place] [address] PCP - General 07/14/24 documented as of this encounter
--- OUTSIDE RECORDS SUMMARY | 2025-02-04 10:15 | XMS_ITS | Encounter Summary ---
Author Organization [facility] Address [address] [place] [address] Care Team Providers Care Animal Attendants And Trainers Name Role Phone Taoy Jones MD Primary Care Provider [phone] Reason for Visit * Reason Comments Post-op From surgery * Consultation (Routine) - Closed Specialty Diagnoses / Procedures Referred By Samia t Referred To Contact General Surgery Diagnoses Metastatic colon cancer to liver Hernia Farhad Castillo MD [address] [address] Phone: tel: fax: Heidi March MD [address] [address] Phone: tel: fax: Referral ID Status Reason Start Date Expiration Date V isits Requested Visits Authorized [id number] Closed Specialty Services Required 12/24/2024 06/25/2026 1 1 Encounter Details Date Type Department Care Team (Late st Contact Info) Description 02/04/2025 10:15 AM EDT Office Visit [place] [facility] [address] [place] [address] Heidi March MD [phone] [place] [address] Incisional hernia, without obstruction or [...] in a jail (including now)? No 01/07/2025 [facility] Utilities Answer Date Recorded In [...] drink first t rah in the morning (EYE-COUNTER SUPPLY WORKER) to steady your nerves or to get [...] visit. Cosigned by Heidi March MD at 02/08/2025 3:47 PM EDT Associated [...] EDT Appointment [facility] Radiology [address] [place] [address] 02/11/2025 9:00 AM EDT Office Visit [facility] [address] [place] [address] Farhad Castillo MD [address] [phone] documented as of this encounter Goals Goal [...] documented as of this encounter Care Teams Animal Attendants And Trainers Relationship Specialty Start Date End Date Tayo Jones MD [address] [id number] PCP - General 07/14/24 documented as of this encounter
--- OUTSIDE RECORDS SUMMARY | 2025-02-09 09:08 | XMS_ITS | Encounter Summary ---
Author Organization [facility] Address [address] [place] [address] Care Team Providers Care Cleaner Assistant Name Role Phone Tayo Jones MD Primary Care Provider Encounter Details Date Type Department Care Team (Latest Contact Info) Description 02/04/2025 Travel Social History Tobacco Use Types Packs/Day [...] time in the past 12 m [facility], were you homeless or living in a intermediate (including now)? No 01/07/2025 [facility] Utilities Answer Date Recorded In the past [...] drink first t rah in the morning (EYE-ANIMAL GROOMER) to steady your nerves or to get [...] things Not at all 02/04/2025 9:45 AM TRACE [facility] S Feeling down, depressed, or hopeless Not at all 02/04/2025 9:45 AM EDQamar Grajeda'Vita Perez Patient Health Questionnaire -2 Score 0 02/04/2025 9:45 AM EDQamar Grajeda'Vita Perez * Question Answer Date of Assessment Author Trouble falling or staying asleep, or sleeping too much Not at all 02/04/2025 9:45 AM EDT [facility] S Feeling tired or having quentin le energy Not at all 02/04/2025 9:45 AM EDT [facility] S Poor appetite or overeating Not at all 02/04/2025 9: 45 AM EDT [facility] S Feeling bad about yourself - or that you are a failure or have let yourself or your family down Not at all 02/04/2025 9:45 AM EDT [facility] S Trouble concentrating on thi ngs, such as reading the newspaper or watching television Not at all 02/04/2025 9:45 AM EDT [facility] S Moving or speaking so slowly that other people could have noticed? Or the opposite - being so fidgety or restless that you have been moving around a lot more than usual. Not at all 02/04/2025 9:45 AM TRACE Graj[facility]ita Perez Thoughts that you would be better off or hurting yourself in some way Not at all 02/04/2025 9:45 AM EDQamar Grajeda'Vita Perez Patient Health Questionnaire -9 Score 0 02/04/2025 9:45 AM TRACE [facility] Perez * How difficult have these problems made it for you to do your work, take care of things at home, or get along with other people? Answer Date of Assessment Author Not difficult at all 02/04/2025 9:45 AM EDQamar [facility] V[facility] [place] documented as of this encounter Plan of Treatment Upcoming Encounters Date Type Department Care Team (Late st Contact Info) Description 02/11/2025 8:20 AM EDT Appointment [facility] Radiology [address] [place] [address] 02/11/2025 9:00 AM EDT Office Visit [facility] [address] [place] [address] Farhad Castillo MD [address] [phone] documented as of this encounter Goals Goal [...] documented as of this encounter Care Teams Cleaner Assistant Relationship Specialty Start Date End Date Tayo Jones MD [address] [place] [address] PCP - General 07/14/24 documented as of this encounter
--- OUTSIDE RECORDS SUMMARY | 2025-02-09 09:08 | XMS_ITS | Encounter Summary ---
Author Organization [facility] Address [address] [place] [address] Care Team Providers Care Manager Long Term Care Name Role Phone Tayo Jones MD Primary Care Provider [phone] Encounter Details Date Type Department Care Team (Late Contact Info) Description 07/16/2024 Lab Requisition [facility] [address] [place] [phone] Farhad Castillo MD [address] [address] Other acute appendicitis without perforation [...] Department Care Team (Late Contact Info) Description 02/11/2025 8:20 AM EDT Appointment [facility] Radiology [address] [place] [phone] 02/11/2025 9:00 AM EDT Office Visit [facility] [address] [place] [phone] Farhad Castillo MD [address] [address] documented as of this encounter Procedures Procedure Name Priority Date/Time Associated Diagnosis Comments SURGICAL PATHOLOGY CONSULT Routine 07/16/2024 1:13 PM EDT Other acute appendicitis without perforation or gangrene documented in this encounter Results * Surgical Pathology Consult (07/16/2024 1:13 PM EDT) Case Report Sugical Pathology Consult Case: [id number] Authorizing Provider: Farhad Castillo MD Collected: 07/16/2024 1313 Ordering Location: [facility] Lab Received: 07/16/2024 1313 Pathologist: Constance Murphy MD Specimen: Colon, [id number] 07/17/2024 1:08 PM EDT [facility] Final Diagnosis RIGHT COLON AND TERMINAL ILEUM, RIGHT HEMICOLECTOMY ([id number]; 11/09/2022): - 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 - TUMOR BUDDING SCORE: HIGH (10 OR GREATER). - NO TUMOR SEEN IN TWENTY ONE LYMPH NODES (0/21). 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 07/17/2024 1:08 PM EDT [facility] Clinical Information K35.890 - Other acute appendicitis without perforation or gangrene [ICD-10-CM] 07/17/2024 1:08 PM EDT [facility] Gross Description A. [id number] Received along with a corresponding pathology report from [facility] are 29 slides labeled outside case: [id number] collected on 11/09/2022. 07/17/2024 1:08 PM EDT [facility] Note: A resident was involved in the service. I attest I examined the relevant preparations for the specimens and confirmed the diagnosis or interpretation. 07/17/2024 1:08 PM EDT [facility] Tissue Colon structure / Unknown 07/16/2024 1:13 PM EDT 07/16/2024 1:13 PM EDT us Farhad Castillo MD LAB PATHOLOGY ORDERABLES F inal Result [facility] [address] [place] [address] documented in this encounter Visit Diagnoses Diagnosis Other acute appendicitis without perforation or gangrene documented in this encounter Care Teams Manager Long Term Care Relationship Specialty Start Date End Date Tayo Jones MD [address] [id number] PCP - General 07/14/24 documented as of this encounter
--- OUTSIDE RECORDS SUMMARY | 2025-02-09 09:08 | XMS_ITS | Encounter Summary ---
Author Organization [facility] Address [address] [place] [address] Care Team Providers Care Dance Costume Designer Name Role Phone Tayo Jones MD Primary Care Provider Encounter Details Date Type Department Care Team ([facility] st Contact Info) Description 01/27/2025 Telephone [facility] [address] [place] [address] Renee Salas Social History Tobacco Use Types Packs/Day Years [...] in the past 12 m [facility], were you homeless or living in a detention (including now)? No 01/07/2025 [facility] Utilities Answer Date Recorded In [...] drink first t rah in the morning (EYE-PROCESS CONTROL PROGRAMMER) to steady your nerves or to get rid of a hangover? 0 01/12/2025 CAGE Questionnaire Score 0 025 Sex and Gender Information Value Date Recorded Sex Assigned at Male 07/31/2024 7:25 AM EDT Legal Sex Male 12:34 PM EDT Gender Identity Male 07/31/2024 7:25 AM EDT Sexual Orientation Not on file documented as of this encounter Miscellaneous Notes * Telephone Encounter - Renee Salas Yang - 01/27/2025 10:52 AM EDT Left message for Jamee at [facility] calling to check on patient as he missed a post-op follow up yesterday. Will need appointment soon if lenin or stitches need to removed. Requested call back. documented in this encounter Plan of Treatment Upcoming Encounters Date Type Department Care Team (Late st Contact Info) Description 02/11/2025 8:20 AM EDT Appointment [facility] Radiology [address] [place] [address] 02/11/2025 9:00 AM EDT Office Visit [facility] [address] [place] [address] Farhad Castillo MD [address] [phone] documented as of this encounter Goals Goal [...] documented as of this encounter Care Teams Dance Costume Designer Relationship Specialty Start Date End Date Tayo Jones MD [address] [id number] PCP - General 07/14/24 documented as of this encounter
--- OUTSIDE RECORDS SUMMARY | 2025-02-09 09:08 | XMS_ITS | Encounter Summary ---
Author Organization [facility] Address [address] [place] [address] Care Team Providers Care Lavatory Attendant Name Role Phone Tayo Jones MD Primary Care Provider [phone] Encounter Details Date Type Department Care Team (Late Contact Info) Description 06/15/2024 Orders Only External Location [address] [place] [address] Provider, External Social History Tobacco Use Types [...] AM EDT Appointment [facility] Radiology [address] [place] [address] 02/11/2025 9:00 AM EDT Office Visit [facility] [address] [place] [address] Farhad Castillo MD [address] [address] documented as of this encounter Procedures Procedure [...] on filedocumented in this encounter Care Teams Lavatory Attendant Relationship Specialty Start Date End Date Tayo Jones MD [address] [place] [address] PCP - General 07/14/24 documented as of this encounter
--- OUTSIDE RECORDS SUMMARY | 2025-02-09 09:09 | XMS_ITS | Encounter Summary ---
Author Organization [facility] Address [address] [place] [address] Care Team Providers Care Social Insurance Analyst Name Role Phone Tayo Jones MD Primary Care Provider [phone] Encounter Details Date Type Department Care Team (Late Contact Info) Description 05/06/2024 Orders Only External Location [address] [place] [address] Provider, External Social History Tobacco Use Types [...] AM EDT Appointment [facility] [address] [place] [address] 02/11/2025 9:00 AM EDT Office Visit [facility] [address] [place] [address] Farhad Castillo MD [address] [address] documented as of this encounter Procedures Procedure [...] on filedocumented in this encounter Care Teams Social Insurance Analyst Relationship Specialty Start Date End Date Tayo Jones MD [address] [place] [address] PCP - General 07/14/24 documented as of this encounter
--- OUTSIDE RECORDS SUMMARY | 2025-02-09 09:09 | XMS_ITS | Encounter Summary ---
Author Organization [facility] Address [address] [place] [address] Care Team Providers Care Beverage Steward Name Role Phone Tayo Jones MD Primary Care Provider [phone] Encounter Details Date Type Department Care Team (Late Contact Info) Description 01/15/2023 Orders Only External Location [address] [place] [phone] Sue Pope MD [address] [place], [place] [phone] Social History Tobacco Use Types Packs/Day Years [...] EDT Appointment [facility] G Radiology [address] [place] [phone] 02/11/2025 9:00 AM EDT Office Visit [facility] [address] [place] [address] Farhad Castillo MD [address] [phone] documented as of this encounter Procedures Procedure Name Priority Date/Time Associated Diagnosis Comments CT OUTSIDE IMAGES 01/15/2023 9:37 AM EDT documented in this encounter Results * CT OUTSIDE IMAGES (01/15/2023 9:37 AM EDT) Anatomical Region Laterality Modality Computed Tomogra phy 01/15/2023 9:37 AM EDT us Sue Pope MD IMG CT PROCEDURES Final Result documented in this encounter Visit Diagnoses Not on filedocumented in this encounter Care Teams Beverage Steward Relationship Specialty Start Date End Date Tayo Jones MD [address] [place] [address] PCP - General 07/14/24 documented as of this encounter
--- OUTSIDE RECORDS SUMMARY | 2025-02-09 09:09 | XMS_ITS | Encounter Summary ---
Author Organization [facility] Address [address] [place] [address] Care Team Providers Care Die Try Out Worker Name Role Phone Tayo Jones MD Primary Care Provider [phone] Encounter Details Date Type Department Care Team (Late Contact Info) Description 02/18/2023 Orders Only External Location [address] [place] [address] Provider, External Social History Tobacco Use Types [...] AM EDT Appointment [facility] [address] [place] [address] 02/11/2025 9:00 AM EDT Office Visit [facility] [address] [place] [address] Farhad Castillo MD [address] [address] documented as of this encounter Procedures Procedure [...] on filedocumented in this encounter Care Teams Die Try Out Worker Relationship Specialty Start Date End Date Tayo Jones MD [address] [place] [address] PCP - General 07/14/24 documented as of this encounter
--- OUTSIDE RECORDS SUMMARY | 2025-02-09 09:09 | XMS_ITS | Encounter Summary ---
Author Organization [facility] Address [address] [place] [address] Care Team Providers Care Coupon Clerk Name Role Phone Tayo Jones MD Primary Care Provider [phone] Encounter Details Date Type Department Care Team (Late Contact Info) Description 01/24/2023 Orders Only External Location [address] [place] [address] Sue Pope MD [address] [place], [place] [id number] Social History Tobacco Use Types Packs/Day Years [...] EDT Appointment [facility] Radiology [address] [place] [address] 02/11/2025 9:00 AM EDT Office Visit [facility] [address] [place] [address] Farhad Castillo MD [address] [phone] documented as of this encounter Procedures Procedure Name Priority Date/Time Associated Diagnosis Comments CT OUTSIDE IMAGES 01/24/2023 9:34 AM EDT documented in this encounter Results * CT OUTSIDE IMAGES (01/24/2023 9:34 AM EDT) Anatomical Region Laterality Modality Computed Tomogra phy 01/24/2023 9:34 AM EDT us Sue Pope MD IMG CT PROCEDURES Final Result documented in this encounter Visit Diagnoses Not on filedocumented in this encounter Care Teams Coupon Clerk Relationship Specialty Start Date End Date Tayo Jones MD [address] [place] [address] PCP - General 07/14/24 documented as of this encounter
--- OUTSIDE RECORDS SUMMARY | 2025-02-09 09:09 | XMS_ITS | Encounter Summary ---
Author Organization [facility] Address [address] [place] [address] Care Team Providers Care Cartographic Aide Name Role Phone Tayo Jones MD Primary Care Provider [phone] Encounter Details Date Type Department Care Team (Late Contact Info) Description 05/06/2024 Orders Only External Location [address] [place] [address] Provider, External Social History Tobacco Use Types [...] AM EDT Appointment [facility] Rad[facility] [address] [place] [address] 02/11/2025 9:00 AM EDT Office Visit [facility] [address] [place] [address] Farhad Castillo MD [address] [address] documented as of this encounter Procedures Procedure [...] on filedocumented in this encounter Care Teams Cartographic Aide Relationship Specialty Start Date End Date Tayo Jones MD [address] [place] [address] PCP - General 07/14/24 documented as of this encounter
--- OUTSIDE RECORDS SUMMARY | 2025-02-09 09:09 | XMS_ITS | Encounter Summary ---
Author Organization [facility] Address [address] [place] [address] Care Team Providers Care Game Show Host Name Role Phone Tayo Jones MD Primary Care Provider Encounter Details Date Type Department Care Team (Late Contact Info) Description 05/31/2023 Orders Only External Location [address] [place] [address] Provider, External Social History Tobacco Use Types [...] AM EDT Appointment [facility] [address] [place] [address] 02/11/2025 9:00 AM EDT Office Visit [facility] [address] [place] [address] Farhad Castillo MD [address] [address] documented as of this encounter Procedures Procedure [...] on filedocumented in this encounter Care Teams Game Show Host Relationship Specialty Start Date End Date Tayo Jones MD [address] [place] [address] PCP - General 07/14/24 documented as of this encounter
--- OUTSIDE RECORDS SUMMARY | 2025-02-09 09:09 | XMS_ITS | Encounter Summary ---
Author Organization [facility] Address [address] [id number] Care Team Providers Care Integrated Circuit Design Engineer Name Role Phone Tayo Jones MD Primary Care Provider [phone] Encounter Details Date Type Department Care Team ([facility] st Contact Info) Description 12/29/2024 Telephone [facility] [address] [place] [address] Farhad Castillo MD [address] [phone] Social History Tobacco Use Types Packs/Day Years [...] Phone Message Reason for Call: Jamee from [facility] calling about patients upcoming surgery on 01/06. Asking if he will be admitted and how long will his stay be. Best contact number and optimal time of day to reach caller: [phone] Ext [phone] Note: Please do not reply to this message. Follow-up communication and further actions as a result of this message need to be communicated with the patient directly, if the patient is not active onMyChart. If the patient is active on MyChart, they will receive notification of the communication/outcome via [employer]. documented in this encounter Plan of Treatment Upcoming Encounters Date Type Department Care Team (Late st Contact Info) Description 02/11/2025 8:20 AM EDT Appointment [facility] Radiology [address] [place] [address] 02/11/2025 9:00 AM EDT Office Visit [facility] [address] [place] [address] Farhad Castillo MD [address] [address] documented as of this encounter Goals Goal [...] documented as of this encounter Care Teams Integrated Circuit Design Engineer Relationship Specialty Start Date End Date Tayo Jones MD [address] [place] [address] PCP - General 07/14/24 documented as of this encounter
--- OUTSIDE RECORDS SUMMARY | 2025-02-09 09:09 | XMS_ITS | Encounter Summary ---
Author Organization [facility] Address [address] [place] [address] Care Team Providers Care Biophysics Scientist Name Role Phone Tayo Jones MD Primary Care Provider [phone] Encounter Details Date Type Department Care Team (Late st Contact Info) Description 01/15/2023 Orders Only External Location [address] [place] [address] Provider, External Social History Tobacco Use Types [...] AM EDT Appointment [facility] [address] [place] [address] 02/11/2025 9:00 AM EDT Office Visit [facility] [address] [place] [address] Farhad Castillo MD [address] [address] documented as of this encounter Procedures Procedure [...] on filedocumented in this encounter Care Teams Biophysics Scientist Relationship Specialty Start Date End Date Tayo Joens MD [address] [place] [address] PCP - General 07/14/24 documented as of this encounter
--- OUTSIDE RECORDS SUMMARY | 2025-02-09 09:10 | XMS_ITS | Encounter Summary ---
Author Organization [facility] Address [address] [place] [address] Care Team Providers Care Fittings Finisher Name Role Phone Jeremy Gil MD Unavailable Andres Alcantara DPM Unavailable [phone] Grant Fletcher MD Unavailable [phone] Niko Cueva MD Unavailable [phone] None, None Primary Care Provider UnavailGm Vigil DPM Unavailable Reina Byrd NP Unavailable Unavailable Encounter Details Date Type Department Care Team (Late st Contact Info) Description 09/08/2020 Clinical Update [facility] Physicians - Infectious Diseases, [facility] [address] [place] [address] [phone] Grant Fletcher MD [address] [place] [address] [id number] Social History Tobacco Use Types Packs/Day Years [...] U/L Plasma Result [facility] Grant Fletcher MD CHEMISTRY ORDERABLES Final Re sult * ALKALINE PHOSPHATASE (09/07/2020) Alkaline Phosphatase 98 U/L Plasma Result [facility] Grant Fletcher MD CHEMISTRY ORDERABLES Final Re sult * ALBUMIN (09/07/2020) Albumin 2.6 Plasma Result [facility] Grant Fletcher MD CHEMISTRY ORDERABLES [...] on filedocumented in this encounter Care Teams Fittings Finisher Relationship Specialty Start Date End Date None, None [address] [place] [address] PCP - General 10/26/20 Jeremy Gil MD [address] [place] [address] Room [address] [place] [address] Internal Medicine 08/19/20 Andres Alcantara DPM [address] [facility]. [address] [place] [address] Resident Podiatry 08/22/20 Grant Fletcher MD [address] [facility] [address] [place] [address] Infectious Diseases 09/08/20 Niko Cueva MD [address] [facility] [address] [place] [address] Vascular Surgery 09/16/20 Gm Flor DPM [address] [facility]. [address] [place], [place] [phone] Podiatry 11/01/20 Reina Byrd NP [address] [facility] [place] [address] Nurse Practitioner Vascular Surgery 11/30/20 documented as of this encounter
--- OUTSIDE RECORDS SUMMARY | 2025-02-09 09:10 | XMS_ITS | Encounter Summary ---
Author Organization [facility] Address [address] [id number] Care Team Providers Care Tug Captain Name Role Phone Tayo Jones MD Primary Care Provider [phone] Encounter Details Date Type Department Care Team ([facility] st Contact Info) Description 12/23/2024 Orders Only [facility] [address] [place] [address] Farhad Castillo MD [address] [phone] Social History Tobacco Use Types Packs/Day Years [...] any time in the past 12 m [facility], were you homeless or living [...] EDT Appointment [facility] G Radiology [address] [place] [address] 02/11/2025 9:00 AM EDT Office Visit [facility] [address] [place] [address] Farhad Castillo MD [address] [address] documented as of this encounter Visit Diagnoses Not on filedocumented in this encounter Additional Health Concerns Assessment Noted Time A fall risk assessment has been complete d for the patient 07/23/2024 8:54 AM EDT A Body Mass Index follow-up plan has been documented for the patient 11/24/2024 5:29 PM EDT documented as of this encounter Care Teams Tug Captain Relationship Specialty Start Date End Date Tayo Jones MD [address] [place] [address] PCP - General 07/14/24 documented as of this encounter
--- OUTSIDE RECORDS SUMMARY | 2025-02-09 09:10 | XMS_ITS | Clinical Summary ---
Author Organization [facility] Address [address] [place] [address] Care Team Providers Care Mattress Filling Machine Tender Name Role Phone Tayo Jones MD Primary Care Provider [phone] Allergies No known active allergies Medications carvedilol (Coreg) 12.5 MG tablet Take by mouth in the morning and in the evening. Take with meals. 07/30/19 24 Active ferrous sulfate 325 (65 Fe) MG EC tablet 08/12/19 24 Active ondansetron (Zofran) 4 MG tablet 04/19/19 25 Active spironolactone (Aldactone) 25 MG tablet Take 1 tablet by mouth daily. 07/12/19 25 Active Multiple Vitamin (multivitamin) tablet Take 1 tablet by mouth daily. Active Quercetin 500 MG capsule Take 2 tablets by mouth daily. Active magnesium oxide (Mag-Ox) 400 MG tablet Take 1 tablet by mouth 2 times a day. 11/08/19 25 Active potassium chloride CR (Klor-Con M20) 20 MEQ ER tablet Take 1 tablet by mouth 2 times a day. 11/10/19 25 Active sodium bicarbonate 650 MG tablet Take 1 tablet by mouth 2 times a day. 11/10/19 25 Active loperamide (Imodium A-D) 2 MG tablet Take by mouth 3 times a day as needed. 04/19/19 25 Active Nutritional Supplements (Impact Advanced Recovery) liquid Drink 1 178ml carton 2 per day X 5 days before surgery 2500 mL 12/25/19 25 Active Additional Information Patient not taking.Reported on 02/04/2025 mupirocin (Bactroban) 2 % ointment Apply topically 2 times a day. 1 g 12/25/19 25 Active lisinopril 20 MG tablet Take 0.5 tablets by mouth daily. 01/14/20 Active insulin lispro (Admelog, HumaLOG) 100 UNIT/ML injection pen Inject 3 Units under the skin 3 times a day with meals. 01/14/20 Active cyclobenzaprin e (Flexeril) 5 MG tablet Take 1 tablet by mouth 3 times a day. 01/14/20 Active pantoprazole (Protonix) 40 MG EC tablet Take 1 tablet by mouth daily. Do not crush, chew, or split. 01/14/20 Active Lantus SoloStar 100 UNIT/ML injection pen Inject 12 Units under the skin nightly. 01/14/20 Active naloxone (Narcan) 4 mg/0.1 mL nasal spray 1. Give 1 spray in nostril for no/slow breathing or cannot wake after opioid use 2. Call 911 3. Repeat in other nostril if symptoms continue 1 each 01/14/20 Active insulin lispro (Admelog, HumaLOG) 100 UNIT/ML injection pen Inject 10 Units under the skin 3 times a day with meals. 08/01/19 Discontinued Lantus SoloStar 100 UNIT/ML injection pen Inject 35 Units under the skin nightly. 05/29/19 Discontinued capecitabine (Xeloda) 500 MG chemo tablet Take 3 tablets (1,500 mg total) by mouth 2 (two) times a day. Swallow whole with water. Do not crush or cut. Discontinued(S top Taking at Discharge) acetaminophen (Tylenol) 500 MG tablet Take 1 tablet by mouth every 6 hours as needed for pain. 50 tablet 08/01/19 Discontinued(S top Taking at Discharge) lisinopril 20 MG tablet Take 1 tablet by mouth daily. 10/27/19 Discontinued Lantus SoloStar 100 UNIT/ML injection pen Inject 12 Units under the skin nightly. 15 mL 5 01/14/20 Discontinued cyclobenzaprin e (Flexeril) 5 MG tablet Take 1 tablet by mouth 3 times a day. 01/14/20 Discontinued enoxaparin (Lovenox) 40 MG/0.4ML solution prefilled syringe Inject 0.4 mL under the skin daily for 21 days. 01/14/20 025 Discontinued oxyCODONE (Roxicodone) 5 MG immediate release tablet Take 1 tablet by mouth every 6 hours as needed for moderate pain. 01/14/20 025 Discontinued naloxone (Narcan) 4 mg/0.1 mL nasal spray 1. Give 1 spray in nostril for no/slow breathing or cannot wake after opioid use 2. Call 911 3. Repeat in other nostril if symptoms continue 1 each 01/14/20 Discontinued pantoprazole (Protonix) 40 MG EC tablet Take 1 tablet by mouth daily. Do not crush, chew, or split. 30 tablet 1 01/14/20 Discontinued enoxaparin (Lovenox) 40 MG/0.4ML solution prefilled syringe Inject 0.4 mL under the skin daily for 21 days. 01/14/20 oxyCODONE (Roxicodone) 5 MG immediate release tablet Take 1 tablet by mouth every 4 hours as needed for moderate pain for up to 3 days. 18 tablet 01/14/20 Active Problems Problem Noted Date Diagnosed Date Post-op pain 01/08/2025 Overview (01/08/2025): - multimodal pain management - transition PO pain meds as diet advances and prior to discharge Electrolyte abnormality 01/08/2025 Overview (01/08/2025): - daily/PRN CMP, Mg, Phos - replete as appropriate - goal: K>4, phos>3, mg>2 Leukocytosis 01/08/2025 Overview (01/08/2025): - common post-op finding likely reactive 2/2 surgery - daily/prn CBC - monitor for s/s of active infection Incisional hernia, without obstruction or gangre ne 12/24/2024 Bowel obstruction 10/08/2024 Obesity (BMI 35.0-39.9 without comorbidity) 07/14 Metastatic colon cancer to liver 07/23/2024 Overview (01/08/2025): 01/06/25: OR for partial hepatectomy, cholecystectomy,[Jonathan] and hernia repair [Anca] Encounters Date Type Department Care Team Description 02/04/2025 10:15 AM EDT Office Visit [facility] [address], [address] [place] [address] Heidi March MD Incisional hernia, without obstruction or gangrene (Primary Dx) 02/04/2025 Travel 01/27/2025 Telephone [facility] [address] [place] [phone] Renee Salas 01/08/2025 Travel 01/06/2025 11:02 AM EDT Anesthesia Event [facility] [address] [place] [address] Andres Rojas, [facility] Eva Fragoso, CANDIDA 01/06/2025 10:50 AM EDT - 01/06/2025 4:15 PM EDT Surgery [facility] [address] [place] [address] Farhad Castillo MD HEPATECTOMY, PARTIAL, microwave ablation, cholecystectomy [91556 (CPT )] 01/06/2025 9:09 AM EDT - 01/13/2025 9:50 AM EDT Hospital Encounter [facility]patient [facility] [address] [place] [address] Farhad Castillo MD Metastatic colon cancer to liver (CMS/HCC) Discharge Disposition: [facility] 01/06/2025 Travel 01/05/2025 Telephone [facility] [address], [address] [place] [address] Eva Dale RN 12/29/2024 1:45 PM EDT Pre-Admission Testing [facility] [address], [address] [place] [address] 12/29/2024 Travel 12/29/2024 Telephone [facility] [address] [place] [address] Farhad Castillo MD 12/24/2024 10:45 AM EDT Consult [facility] [address], [address] [place] [address] Heidi March MD Personal history of nutritional deficiency (Primary Dx); Incisional hernia, without obstruction or gangrene; Metastatic colon cancer to liver (CMS/HCC) 12/24/2024 9:15 AM EDT Office Visit [facility] Mult[facility]isciplinary Oncology Clinic [address] [place] [address] Farhad Castillo MD Metastatic colon cancer to liver (CMS/HCC) (Primary Dx); Hernia 12/24/2024 Travel 12/23/2024 Orders Only [facility] [address] [place] [address] Farhad Castillo MD 12/17/2024 11:27 AM EDT - 12/17/2024 11:59 PM EDT Hospital Encounter [facility] Radiology [address], [address] [place] [address] Metastatic colon cancer to liver (CMS/HCC) Discharge Disposition: Home or Self Care 12/17/2024 8:07 AM EDT - 12/17/2024 11:26 AM EDT Hospital Encounter Cardiac Imaging [address] [place] [address] Discharge Disposition: Home or Self Care 12/17/2024 8:00 AM EDT - 12/17/2024 8:06 AM EDT Hospital Encounter [facility] [address] [place] [address] High risk surgery, pre-operative cardiovascular examination; Shortness of breath on exertion Discharge Disposition: Home or Self Care 12/17/2024 Travel 11/19/2024 11:15 AM EDT Office Visit [facility] [address] [place] [address] Farhad Castillo MD Metastatic colon cancer to liver (CMS/HCC) (Primary Dx); High risk surgery, pre-operative cardiovascular examination; Shortness of breath on exertion 11/19/2024 7:09 AM EDT - 11/19/2024 11:59 PM EDT Hospital Encounter [facility] [address] [place] [address] Metastatic colon cancer to liver (CMS/HCC) Discharge Disposition: Home or Self Care 11/19/2024 Travel from Last 3 Months Family History [...] living in a fci (including now)? No 01/07/2025 [facility] Utilities Answer Date Recorded In [...] drink first t rah in the morning (EYE-WELDER APPRENTICE COMBINATION) to steady your nerves or to get [...] F) 02/04/2025 9:43 AM EDT Respiratory Rate 18 01/13/2025 7:00 AM EDT Oxygen Saturation 97% 01/13/2025 7:00 AM EDT Inhaled Oxygen Concentration - - Weight 114 kg (251 lb 9.6 oz) 02/04/2025 9:43 AM EDT Height 175.5 cm (5' 9.09 ) 02/04/2025 9:43 AM ED T Body Mass Index 37.05 02/04/2025 9:43 AM EDT Plan of Treatment Upcoming Encounters Date Type Department Care Team (Late st Contact Info) Description 02/11/2025 8:20 AM EDT Appointment [facility] [address] [place] [address] 02/11/2025 9:00 AM EDT Office Visit [facility] [address] [place] [phone] Farhad Castillo MD [address] [address] Health Maintenance Due Date Last Done Comments [facility]-Infant/Child/Adol SDOH Screenings 1964 Diabetes: Dental Exam 1974 [facility]-DTaP,Tdap,and Td Vaccines (1 - Tdap) 1983 [facility]-Hepatitis A Vaccines (1 of 2 - Risk 2-dose series) 1983 [facility]-Zoster Vaccines (1 of 2) 1983 [facility]-RSV Vaccine: 60+ Years or (1 - Risk 60-74 years 1-dose series) 2024 [id number] Vaccine ( - 2024- season) 2024 01/15/2022, 03/28/2021, 07/27/2020, Additional history exists [facility]-Influenza Vaccine (#1) 2024 [facility]-Diabetes: Hemoglobin A1C 06/23/2025 12/24/2024, 11/19/2024, 10/08/2024, Additional history exists [facility]- SDOH Screenings 07/07/2025 [facility]-Adult SDOH Screenings 07/07/2025 01/07/2025 [facility]-Depression Screening 02/04/2026 02/04/2025, 01/14 [facility]-Pneumococcal Vaccine: 50+ Years Completed 05/27/2024, 09/12/2020 [facility]-HIV Screening Completed 10/08/2024 [facility]-Hepatitis C Screening Completed 10/08/2024 [facility]-Obesity Intervention Completed 025, 12/24/2024, 12/24/2024, Additional history exists HPV Vaccines Aged Out [...] Plan Autogenerated Problem No Farhad Castillo MD Medical Devices Implanted Type Area Antenna Machine Operator Device Identifier Shelf Expiration Date Model / Serial / Lot Port Clearvue Power 8fr - S. - [id number] Implanted:Qt y: 1 on 07/31/2024 by Farhad Castillo MD at [facility] Other Medication Pump Left: Chest [employer]-[id number] 07/13/2025 [id number] / . / [id number] [id number] - [id number] Implanted:Qt y: 1 on 01/06/2025 by Heidi March MD at [facility] N/A: Abdomen [id number] 03/12/2026 [id number] / / [id number] Procedures Procedure Name Priority Date/Time Associated Diagnosis Comments POCT GLUCOSE METER UNSOLICITED RESULTS Routine 01/13/2025 7:02 AM EDT PHOSPHORUS, PLASMA Routine 01/13/2025 3: 37 AM EDT MAGNESIUM, PLASMA Routine 01/13/2025 3:3 7 AM EDT COMPREHENSIVE METABOLIC PANEL, PLASMA Routine 01/13/2025 3:37 AM EDT CBC W/O DIFFERENTIAL Routine 01/13/2025 3:37 AM EDT POCT GLUCOSE METER UNSOLICITED RESULTS Routine 01/12/2025 7:26 PM EDT POCT GLUCOSE METER UNSOLICITED RESULTS Routine 01/12/2025 4:09 PM EDT POCT GLUCOSE METER UNSOLICITED RESULTS Routine 01/12/2025 11:54 AM EDT POCT GLUCOSE METER UNSOLICITED RESULTS Routine 01/12/2025 8:08 AM EDT PHOSPHORUS, PLASMA Routine 01/12/2025 3: 39 AM EDT MAGNESIUM, PLASMA Routine 01/12/2025 3:3 9 AM EDT COMPREHENSIVE METABOLIC PANEL, PLASMA Routine 01/12/2025 3:39 AM EDT CBC W/O DIFFERENTIAL Routine 01/12/2025 3:39 AM EDT POCT GLUCOSE METER UNSOLICITED RESULTS Routine 01/11/2025 7:57 PM EDT POCT GLUCOSE METER UNSOLICITED RESULTS Routine 01/11/2025 4:42 PM EDT POCT GLUCOSE METER UNSOLICITED RESULTS Routine 01/11/2025 11:33 AM EDT POCT GLUCOSE METER UNSOLICITED RESULTS Routine 01/11/2025 9:01 AM EDT POCT GLUCOSE METER UNSOLICITED RESULTS Routine 01/11/2025 5:37 AM EDT PHOSPHORUS, PLASMA Routine 01/11/2025 3: 49 AM EDT MAGNESIUM, PLASMA Routine 01/11/2025 3:4 9 AM EDT COMPREHENSIVE METABOLIC PANEL, PLASMA Routine 01/11/2025 3:49 AM EDT CBC W/O DIFFERENTIAL Routine 01/11/2025 3:49 AM EDT POCT GLUCOSE [...] UNSOLICITED RESULTS Routine 01/10/2025 6:16 AM EDT PHOSPHORUS, PLASMA Routine 01/10/2025 3: 56 AM EDT MAGNESIUM, PLASMA Routine 01/10/2025 3:5 6 AM EDT COMPREHENSIVE METABOLIC PANEL, PLASMA Routine 01/10/2025 3:56 AM EDT CBC W/O DIFFERENTIAL Routine 01/10/2025 3:56 AM EDT POCT GLUCOSE METER UNSOLICITED RESULTS Routine 01/09/2025 11:45 PM EDT POCT GLUCOSE METER UNSOLICITED RESULTS Routine 01/09/2025 5:44 PM EDT POCT GLUCOSE METER UNSOLICITED RESULTS Routine 01/09/2025 11:55 AM EDT PHOSPHORUS, PLASMA Routine 01/09/2025 3: 54 AM EDT MAGNESIUM, PLASMA Routine 01/09/2025 3:5 4 AM EDT COMPREHENSIVE METABOLIC PANEL, PLASMA Routine 01/09/2025 3:54 AM EDT CBC W/O DIFFERENTIAL Routine 01/09/2025 3:54 AM EDT POCT GLUCOSE [...] VIEW STAT 01/08/2025 8:2 0 AM EDT PHOSPHORUS, PLASMA Routine 01/08/2025 3: 05 AM EDT MAGNESIUM, PLASMA Routine 01/08/2025 3:0 5 AM EDT COMPREHENSIVE METABOLIC PANEL, PLASMA Routine 01/08/2025 3:05 AM EDT CBC W/O DIFFERENTIAL Routine 01/08/2025 3:05 AM EDT POCT GLUCOSE METER UNSOLICITED RESULTS Routine 01/08/2025 2:59 AM EDT POCT GLUCOSE METER UNSOLICITED RESULTS Routine 01/07/2025 8:31 PM EDT POCT GLUCOSE METER UNSOLICITED RESULTS Routine 01/07/2025 5:05 PM EDT POCT GLUCOSE METER UNSOLICITED RESULTS Routine 01/07/2025 12:22 PM EDT POCT GLUCOSE METER UNSOLICITED RESULTS Routine 01/07/2025 5:19 AM EDT PHOSPHORUS, PLASMA Routine 01/07/2025 3: 26 AM EDT MAGNESIUM, PLASMA Routine 01/07/2025 3:2 6 AM EDT COMPREHENSIVE METABOLIC PANEL, PLASMA Routine 01/07/2025 3:26 AM EDT CBC W/O DIFFERENTIAL Routine 01/07/2025 3:26 AM EDT POCT GLUCOSE [...] EDT Metastatic colon cancer to liver (CMS/HCC) ANESTHESIA ARTERIAL LINE PLACEMENT Routine 01/06/2025 11:24 AM EDT ANESTHESIA PERIPHERAL IV PLACEMENT Routine 01/06/2025 11:15 AM EDT ANESTHESIA PERIPHERAL IV PLACEMENT Routine 01/06/2025 11:15 AM EDT PB ANESTHESIA PLACEHOLDER Routine 01/06/2025 11:13 AM EDT VT AN ELECTIVE ENDOTRACHEAL AIRWAY Routine 01/06/2025 11:13 AM EDT VT RPR AA HERNIA 1ST 3-10 CM REDUCIBLE 01/06/2025 10:47 AM EDT Metastatic colon cancer to liver (CMS/HCC) Incisional hernia without obstruction or gangrene VT RESEC LIVER,PART LOBECTOMY 01/06/2025 10:47 AM EDT Metastatic colon cancer to liver (CMS/HCC) Incisional hernia without obstruction or gangrene PB ANESTHESIA NON-TIMED PROCEDURE PLACEHOLDER Routine 01/06/2025 10:08 AM EDT POCT GLUCOSE METER UNSOLICITED RESULTS Routine 01/06/2025 9:37 AM EDT POCT GLYCOSYLATED HEMOGLOBIN (HGB A1C) Routine 12/24/2024 [...] EDT Metastatic colon cancer to liver (CMS/HCC) HEPATITIS C ANTIBODY - ED W/REFLEX TO HCV QUANT PCR STAT 10/08/2024 12:55 AM EDT ED HIV 1/2 ANTIBODY/ANTIGEN SCREEN WITH REFLEX TO HIV I/II DIFFERENTIATION STAT 10/08/2024 12:55 AM EDT from Last 3 Months or Most Recently Relevant to Health Maintenance Results * (ABNORMAL) POCT glucose meter (01/13/2025 7:02 AM EDT) Only the most recent of31 resultswithin the time period is included. POCT Glucose 134(H) 74 - 99 mg/dL 01/13/2025 7:03 AM EDT [facility] Comment:Accuracy of a [...] for testing. Comment 01/13/2025 7:03 AM EDT [facility] Computer Forensics Analyst ID Vita Holder 01/13/2025 7:03 AM EDT [facility] Device ID [id number] 01/13/2025 7:03 AM EDT [facility] Specimen Type POC Capillary 01/13/2025 7:03 AM EDT [facility] Blood Capillary blood specimen / Unknown 01/13/2025 7:02 AM EDT 01/13/2025 7:03 AM EDT Farhad Castillo MD LAB POINT OF CARE TEST DOCKED DEVICE UNSOLICITED RESULTS Final Result [facility] [address] [place] [address] * (ABNORMAL) CBC W/O Differential (01/13/2025 3:37 AM EDT) Only the most recent of10 resultswithin the time period is included. WBC Count 11.46(H) 3.70 - 10.30 10*3/uL LAB HEMATOLOGY METHOD 01/13/2025 4:24 AM EDT [facility] RBC Count 3.36(L) 4.60 - 6.10 10*6/uL LAB HEMATOLOGY METHOD 01/13/2025 4:24 AM EDT [facility] HGB 9.9(L) 13.7 - 17.5 g/dL LAB HEMATOLOGY METHOD 01/13/2025 4:24 AM EDT [facility] HCT 30.6(L) 40.0 - 51.0 % LAB HEMATOLOGY METHOD 01/13/2025 4:24 AM EDT [facility] Platelet Count 244 155 - 369 10*3/uL LAB HEMATOLOGY METHOD 01/13/2025 4:24 AM EDT [facility] MCV 91 79 - 98 fL LAB HEMATOLOGY METHOD 01/13/2025 4:24 AM EDT [facility] MCH 29.5 26.0 - 32.0 pg LAB HEMATOLOGY METHOD 01/13/2025 4:24 AM EDT [facility] MCHC 32.4 30.7 - 35.5 g/dL LAB HEMATOLOGY METHOD 01/13/2025 4:24 AM EDT [facility] RDW 13.2 11.5 - 14.5 % LAB HEMATOLOGY METHOD 01/13/2025 4:24 AM EDT [facility] MPV 8.8 8.8 - 12.5 fL LAB HEMATOLOGY METHOD 01/13/2025 4:24 AM EDT [facility] nRBC 0.0 <=0.0 per 100 WBCs LAB HEMATOLOGY METHOD 01/13/2025 4:24 AM EDT [facility] Blood Venous blood specimen / Unknown Venipuncture / Unknown 01/13/2025 3:37 AM EDT 01/13/2025 4:17 AM EDT Farhad Castillo MD LAB BLOOD ORDERABLES Final Result [facility] [address] [place] [address] * Phosphorus (01/13/2025 3:37 AM EDT) Only the most recent of7 resultswithin the time period is included. Phosphorus, Plasma 3.3 2.5 - 4.5 mg/dL 01/13/2025 4:45 AM EDT [facility] Blood Venous blood specimen / Unknown Venipuncture / Unknown 01/13/2025 3:37 AM EDT 01/13/2025 4:14 AM EDT Farhad Castillo MD LAB BLOOD ORDERABLES Final Result Performing Organization Address City/[facility]/ZIP Co de Phone Number [facility] [address] [place] [address] * (ABNORMAL) Magnesium (01/13/2025 3:37 AM EDT) Only the most recent of7 resultswithin the time period is included. Magnesium, Plasma 1.8(L) 1.9 - 2.4 mg/dL 01/13/2025 4:45 AM EDT [facility] Blood Venous blood specimen / Unknown Venipuncture / Unknown 01/13/2025 3:37 AM EDT 01/13/2025 4:14 AM EDT Farhad Castillo MD LAB BLOOD ORDERABLES Final Result Performing Organization Address City/[facility] Co de Phone Number [facility] [address] [place] [address] * (ABNORMAL) Comprehensive metabolic panel (01/13/2025 3:37 AM EDT) Only the most recent of10 resultswithin the time period is included. Glucose, Plasma 156(H) 74 - 99 mg/dL 01/13/2025 4:45 AM EDT [facility] BUN, Plasma 8 8 - 23 mg/dL 01/13/2025 4:45 AM EDT [facility] Creatinine, Plasma 0.79 0.70 - 1.20 mg/dL 01/13/2025 4:45 AM EDT [facility] BUN/Creatinine Ratio 10 01/13/2025 4:45 AM EDT [facility] Sodium, Plasma 136 136 - 145 mmol/L 01/13/2025 4:45 AM EDT [facility] Potassium, Plasma 3.6 3.6 - 4.9 mmol/L 01/13/2025 4:45 AM EDT [facility] Chloride, Plasma 103 97 - 107 mmol/L 01/13/2025 4:45 AM EDT [facility] CO2, Plasma 23 22 - 29 mmol/L 01/13/2025 4:45 AM EDT [facility] Anion Gap 10 6 - 16 mmol/L 01/13/2025 4:45 AM EDT [facility] Total Calcium, Plasma 8.4(L) 8.9 - 10.2 mg/dL 01/13/2025 4:45 AM EDT [facility] Total Protein 5.7(L) 6.3 - 7.9 g/dL 01/13/2025 4:45 AM EDT [facility] Albumin, Plasma 2.7(L) 3.5 - 5.2 g/dL 01/13/2025 4:45 AM EDT [facility] AST, Plasma 20 10 - 50 U/L 01/13/2025 4:45 AM EDT [facility] ALT, Plasma 15 10 - 50 U/L 01/13/2025 4:45 AM EDT [facility] Alkaline Phosphatase, Plasma 67 40 - 115 U/L 01/13/2025 4:45 AM EDT [facility] Total Bilirubin, Plasma 0.4 0.2 - 1.1 mg/dL 01/13/2025 4:45 AM EDT [facility] eGFRcr 101.7 mL/min/1.7 3m*2 01/13/2025 4:45 AM EDT [facility] Comment:Reported eGFRcr in m L/min/1.73m2 is based the CKD-EPI 2020 equation that does not use a race coefficient. Blood Venous blood specimen / Unknown Venipuncture / Unknown 01/13/2025 3:37 AM EDT 01/13/2025 4:14 AM EDT us Farhad Castillo MD LAB BLOOD ORDERABLES Final Result [facility] [address] [place] [address] * PERIPHERAL IV (SMARTFORM LINK) (01/10/2025 10:19 AM EDT) Narrative Iliana Lee, RN - 01/10/2025 10:19 AM EDT Iliana Lee, RN 01/10/2025 10:20 AM Insert peripheral IV Performed by: Iliana Lee RN Authorized by: Farhad Castillo MD Hand [...] All pertinent images were uploaded to PACS. us Farhad Castillo MD IV THERAPY ORDERABLES Caprice grigsby Result * XR Abdomen 1 View (01/08/2025 10:12 AM EDT) Only the most recent of2 [...] abdomen. COMPARISON: Abdominal radiograph 01/08/2025 FINDINGS: Limited [id number] abdominal radiograph for the purpose of locating tube position. The tip and side port of the nasogastric tube are within the proximal stomach. Procedure Note Kareem Marie MD - 01/08/2025 CLINICAL INDICATION: NGT confirmation TECHNIQUE: Supine radiograph of the abdomen. COMPARISON: Abdominal radiograph 01/08/2025 FINDINGS: Limited [id number] abdominal radiograph for the purpose of locatingtube [...] Kareem Marie MD on 01/08/2025 11:54 AM Paulo Santiago Misty HUMAN MACHINE INTERFACE ENGINEER IMG XR PROCEDURES Final Resul t * (ABNORMAL) Blood gas panel, arterial (01/06/2025 5:03 PM EDT) Only the most recent of3 resultswithin the time period is included. pH, Arterial 7.35 7.31 - 7.42 LAB HEMATOLOGY METHOD 01/06/2025 5:09 PM EDT [facility] pCO2, Arterial 40 32 - 45 mmHg LAB HEMATOLOGY METHOD 01/06/2025 5:09 PM EDT [facility] pO2, Arterial 109 >80 mmHg LAB HEMATOLOGY METHOD 01/06/2025 5:09 PM EDT [facility] SO2, Measured, Arterial 97 94 - 98 % LAB HEMATOLOGY METHOD 01/06/2025 5:09 PM EDT [facility] Base Excess, Arterial -3.1(L) -2.0 - 3.0 mmol/L LAB HEMATOLOGY METHOD 01/06/2025 5:09 PM EDT [facility] Bicarbonate, Calculated, Arterial 22 22 - 26 mmol/L LAB HEMATOLOGY METHOD 01/06/2025 5:09 PM EDT [facility] Hematocrit, Whole Blood 39.4(L) 40.0 - 51.0 % LAB HEMATOLOGY METHOD 01/06/2025 5:09 PM EDT [facility] Sodium, Whole Blood 139 136 - 145 mmol/L LAB HEMATOLOGY METHOD 01/06/2025 5:09 PM EDT [facility] Potassium, Whole Blood 5.0(H) 3.6 - 4.9 mmol/L LAB HEMATOLOGY METHOD 01/06/2025 5:09 PM EDT [facility] Chloride, Whole Blood 108(H) 97 - 107 mmol/L LAB HEMATOLOGY METHOD 01/06/2025 5:09 PM EDT [facility] Glucose, Whole Blood 227(H) 74 - 99 mg/dL LAB HEMATOLOGY METHOD 01/06/2025 5:09 PM EDT [facility] Ionized Calcium, Whole Blood 4.6 4.6 - 5.1 mg/dL LAB HEMATOLOGY METHOD 01/06/2025 5:09 PM EDT [facility] Lactate, Arterial, Whole Blood 1.9(H) 0.5 - 1.6 mmol/L LAB HEMATOLOGY METHOD 01/06/2025 5:09 PM EDT [facility] Blood Arterial blood specimen / Unknown Arterial Puncture / Unknown 01/06/2025 5:03 PM EDT 01/06/2025 5:08 PM EDT us Cheng Peña MD LAB BLOOD ORDERABLES Final Res ult [facility] [address] [id number] * Surgical Pathology Exam (01/06/2025 12:59 PM EDT) Only the most recent of2 resultswithin the time period is included. Case Report Surgical Pathology Case: [id number] Authorizing Provider: Heidi March MD Collected: 01/06/2025 1213 Ordering Location: [facility] A OPERATING ROOM Received: 01/06/2025 1618 Pathologist: Paulo Morrison MD Specimens: A) - Other (specify site), Partial Omentectomy B) - Other (specify site), Segment 8 partial hepatectomy C) - Gallbladder, gallbladder 01/11/2025 10:28 AM EDT [facility] Final Diagnosis A. OMENTUM, PARTIAL [...] NEGATIVE FOR TUMOR 01/11/2025 10:28 AM EDT [facility] at 1028 EDT Comment The background liver parenchyma harbors features of chronic liver disease, namely steatohepatitis. Further clinical workup may be indicated for appropriate classification and staging. 01/11/2025 10:28 AM EDT [facility] Clinical Information Metastatic colon cancer to liver (CMS/HCC) [C18.9, C78.7] 01/11/2025 10:28 AM EDT [facility] Gross Description A. PARTIAL OMENTECTOMY [...] cut surface is martino-yellow and lobulated. The inbound customer service representative section of specimen are submitted as: A1: Salvage Mechanic section of nodule A2-A3: Salvage Mechanic section of specimen Cold Time: 4h 05m [...] nodule. No additional nodule or mass identified. Salvage Mechanic sectioned of specimen are submitted as: B1: [...] grossly identified. Cystic duct margin (en face), inbound customer service representative sections of gallbladder neck, and body are submitted in cassette C1. Cold Time: 2h 32m YAHIR Toney 01/11/2025 10:28 AM EDT [facility] Note: A resident was involved in the service. I attest I examined the relevant preparations for the specimens and confirmed the diagnosis or interpretation. 01/11/2025 10:28 AM EDT [facility] Tissue Topography unknown / Unknown [...] MD LAB PATHOLOGY ORDERABLES F inal Result [facility] [address] [place] [address] * PB ANESTHESIA NON-TIMED PROCEDURE PLACEHOLDER (01/06/2025 [...] Location: hand Site prep: alcohol Attempts: 1 Result Kurt Peralta MD ANESTHESIA ORDERABLES Edited Result - Final * Peripheral IV (01/06/2025 11:15 AM EDT) Narrative Andres Rojas CRNA - 01/06/2025 11:15 AM EDT Andres Rojas CRNA 01/06/2025 12:11 PM Peripheral IV Date/Time: 01/06/2025 11:15 AM Placement Needle size: 16 G Location: wrist Site prep: alcohol Attempts: 1 us Kathe Peralta MD ANESTHESIA ORDERABLES Edited Result - Final * VT AN ELECTIVE ENDOTRACHEAL AIRWAY, PB ANESTHESIA PLACEHOLDER (01/06/2025 11:13 AM EDT) Narrative Andres Rojas CRNA - 01/06/2025 11:13 AM EDT Andres Rojas CRNA 01/06/2025 12:11 PM Airway Date/Time: 01/06/2025 11:13 AM Reason: elective Airway not difficult General Information and Staff Patient location during procedure: OR FREIGHT CAR INSPECTOR: Andres Rojas CRNA Other anesthesia staff: Bina [...] MD ANESTHESIA ORDERABLES Final R esult * POCT Glycosylated Hemoglobin (Hgb A1C) (12/24/2024 10:39 AM EDT) Pathologist [facility] POCT Hemoglobin A1C 6.7 <5.7% Non-Diabet ic % [facility] Kit Lot Number [id number] [facility] Kit Expiration Date 10/12/26 [facility] Blood Venous blood specimen / Unknown 12/24/2024 10:39 AM EDT us Heidi March MD POINT OF CARE TEST ENTER/KINGSLEY T ORDERABLES Final Result Performing Organization Address City/[facility]/ZIP Co de Phone Number [facility] [address] [place] [address] * APTT (12/24/2024 9:22 AM EDT) Pathologist [facility] aPTT 25 25 - 35 sec LAB COAGULATION METHOD 12/24/2024 9:59 AM EDT [facility] Blood Venous blood specimen / Unknown Venipuncture / Unknown 12/24/2024 9:22 AM EDT 12/24/2024 9:38 AM EDT us Farhad Castillo MD LAB BLOOD ORDERABLES Final Result Performing Organization Address City/[facility]/ZIP Co de Phone Number [facility] [address] [place] [address] * Prothrombin Time/INR (12/24/2024 9:22 AM EDT) Pathologist [facility] Prothrombin Time 14.0 12.0 - 14.3 sec LAB COAGULATION METHOD 12/24/2024 9:59 AM EDT [facility] INR 1.1 0.9 - 1.1 LAB COAGULATION METHOD 12/24/2024 9:59 AM EDT [facility] Blood Venous blood specimen / Unknown Venipuncture / Unknown 12/24/2024 9:22 AM EDT 12/24/2024 9:38 AM EDT Narrative [facility] - 12/24/2024 9:59 AM EDT OPTIMAL INR RANGES FOR PATIENT ON ORAL ANTICOAGULANT THERAPY Prevention of venous thromboembolism INR 2.0 to 3.0 In patients with heart disease: Atrial fibrillation INR 2.0 to 3.0 Valvular heart disease INR 2.0 to 3.0 Tissue heart valves INR 2.0 to 3.0 Mechanical prosthetic valves INR 2.5 to 3.5 Prevention of recurrent [place] INR 2.5 to 3.5 Farhad Castillo MD LAB BLOOD ORDERABLES Final Result Performing Organization Address City/[facility] [place] [address] * Prealbumin, Plasma (12/24/2024 9:22 AM EDT) Only the most recent of2 resultswithin the time period is included. Prealbumin, Plasma 21.3 20.0 - 41.0 mg/dL 12/24/2024 10:24 AM EDT [facility] Blood Venous blood specimen / Unknown Venipuncture / Unknown 12/24/2024 9:22 AM EDT 12/24/2024 9:38 AM EDT Farhad Castillo MD LAB BLOOD ORDERABLES Final Result Performing Organization Address [facility] [place] [address] * MR Abdomen w and wo IV [...] using the following sequences: coronal single shot [id number] fast spin echo, axial T2 weighted sequences [...] performed under direct supervision of the reading local combination truck driver. Study Impression There is no significant patient [...] 7.3(H) <5.7 % 11/19/2024 12:49 PM EDT [facility] Blood Venous blood specimen / Unknown Venipuncture / Unknown 11/19/2024 11:26 AM EDT 11/19/2024 11:47 AM EDT Narrative [facility] - 11/19/2024 12:49 PM EDT HA1C Interpretive Data: Diagnosis of Diabetes: Diabetic > or = 6.5% Pre-diabetic 5.7 to 6.4% Non-diabetic < or = 5.6% Glycemic Targets for Type I and Type II Diabetics: Non- Adults <7.0% Adults <6.0% Children and Adolescents <7.5% Source: [place] [employer]. Standards of medical care in diabetes,2017. Diabetes Care.2017:40 (suppl 1):S1-S135. Farhad Castillo MD LAB BLOOD ORDERABLES Final Result [facility] [address] [place] [address] * (ABNORMAL) CEA, Serum (11/19/2024 11:26 AM EDT) CEA, Serum 7.7(H) <4.0 ng/mL 11/19/2024 12:31 PM EDT [facility] Blood Venous blood specimen / Unknown Venipuncture / Unknown 11/19/2024 11:26 AM EDT 11/19/2024 11:47 AM EDT Narrative [facility] - 11/19/2024 12:31 PM EDT Normal range for smokers: < 5.5 ng/ml Normal range for non-smokers: <=4.0 ng/ml Performed by [employer] electrochemiluminescent immunoassay. Results obtained with different test methods or kits cannot be used interchangeably. us Farhad Castillo MD LAB BLOOD ORDERABLES Final Result [facility] [address] [place] [address] * CT Abdomen Pelvis w IV Contrast [...] Total DLP (Dose-Length Product): 3353.28 mGy.cm (accession [id number]), 3353.28 mGy.cm (accession [id number]) Please note: The reported value represents the [...] Total DLP (Dose-Length Product): 3353.28 mGy.cm (accession [id number]),3353.28 mGy.cm (accession [id number]) Please note: The reported valuerepresents the total [...] cm. . Other previously noted lesion within jytcedj5X/8 remains difficult to clearly delineate. Unremarkable gallbladder.Stable [...] Total DLP (Dose-Length Product): 3353.28 mGy.cm (accession [id number]), 3353.28 mGy.cm (accession [id number]) Please note: The reported value represents the [...] Total DLP (Dose-Length Product): 3353.28 mGy.cm (accession [id number]),3353.28 mGy.cm (accession [id number]) Please note: The reported valuerepresents the total [...] cm. . Other previously noted lesion within gpcdowh8W/8 remains difficult to clearly delineate. Unremarkable gallbladder.Stable [...] IMG CT PROCEDURES Final Re sult * ED HIV 1/2 Antibody/Antigen Screen w/Reflex to HIV 1/2 Differentiation (10/08/2024 12:55 AM EDT) Pathologist [facility] HIV 1 & 2 Antibody/Antigen Screen Non Reactive Non Reactive 10/08/2024 2:00 AM EDT [facility] Comment:Screening for HIV 1 & 2 antibodies, and P24 antigen is NONREACTIVE. No confirmatory testing is required. Blood Venous blood specimen / Unknown Venipuncture / Unknown 10/08/2024 12:55 AM EDT 10/08/2024 1:11 AM EDT us Mickie Jefferson MD LAB BLOOD ORDERABLES Final Re sult Performing Organization Address [facility] Co de Phone Number [facility] [address] [place] [address] * Hepatitis C Antibody - ED (10/08/2024 12:55 AM EDT) [facility] Hepatitis C Antibody Negative Negative 10/08/2024 2:16 AM EDT [facility] Blood Venous blood specimen / Unknown Venipuncture / Unknown 10/08/2024 12:55 AM EDT 10/08/2024 1:11 AM EDT us Mickie Jefferson MD LAB BLOOD ORDERABLES Final Re sult Performing Organization Address City/[facility] Co de Phone Number [facility] [address] [place] [address] from Last 3 Months or Most Recently Relevant to Health Maintenance Additional Health Concerns Active Problems Noted Date Diagnosed Date Autogenerated Problem 12/24/2024 Insurance [place] Advance Directives * Full Code (Latest Code Status on File) Date Activated Date Inactivated Comments 10/08/2024 4:28 AM 10/09/2024 5:43 PM Question Answer Comments I have reviewed the capacity from the link above and, if needed, have updated to appropriate status: Yes Care Teams Mattress Filling Machine Tender Relationship Specialty Start Date End Date Tayo Jones MD [address] [place] [address] PCP - General 07/14/24
--- OUTSIDE RECORDS SUMMARY | 2025-02-09 09:10 | XMS_ITS | Encounter Summary ---
Author Organization [facility] Address [address] [place] [address] Care Team Providers Care Pot Builder Name Role Phone Tayo Jones MD Primary Care Provider [phone] Encounter Details Date Type Department Care Team [...] EDT Appointment [facility] Radiology [address] [place] [facility] [place] [address] 02/11/2025 9:00 AM EDT Office Visit [facility] [address] [place] [address] Farhad Castillo MD [address] [address] documented as of this encounter Goals Goal [...] documented as of this encounter Care Teams Pot Builder Relationship Specialty Start Date End Date Tayo Jones MD [address] [id number] PCP - General 07/14/24 documented as of this encounter
--- OUTSIDE RECORDS SUMMARY | 2025-02-09 09:10 | XMS_ITS | Encounter Summary ---
Author Organization [facility] [place] Address [address] [place] [address] Care Team Providers Care Paste Up Artist Name Role Phone Tayo Jones MD Primary Care Provider [phone] Encounter Details Date Type Department Care Team [...] AM EDT Appointment [facility] Radiology [address] [place] [address] 02/11/2025 9:00 AM EDT Office Visit [facility] [address] [place] [address] Farhad Castillo MD [address] [phone] documented as of this encounter Visit Diagnoses Not on filedocumented in this encounter Additional Health Concerns Assessment Noted Time A fall risk assessment has been complete d for the patient 07/23/2024 8:54 AM EDT A Body Mass Index follow-up plan has been documented for the patient 11/24/2024 5:29 PM EDT documented as of this encounter Care Teams Paste Up Artist Relationship Specialty Start Date End Date Tayo Jones MD [address] [id number] PCP - General 07/14/24 documented as of this encounter
--- OUTSIDE RECORDS SUMMARY | 2025-02-09 09:10 | XMS_ITS | Clinical Summary ---
Author Organization [facility] Address [address] [place] [address] Care Team Providers Care Software Test Engineer Name Role Phone Jeremy Gil MD Unavailable Andres Alcantara DPM Unavailable [phone] Grant Fletcher MD Unavailable [phone] Niko Cueva MD Unavailable None, None Primary Care Provider UnavailGm Vigil DPM Unavailable [phone] Reina Byrd NP Unavailable Unavailable Allergies No known active allergies Medications Insulin Glargine (Lantus) 100 unit/mL (3 mL) Solostar INPNIndications :Type 2 diabetes mellitus with hyperglycemia, with long-term current use of insulin ([facility]) 16 Units by Subcutaneous route every 24 [...] Advance Directives For more information, please contact: [phone] * Full Code (Latest Code Status on File) Date Activated Date Inactivated Comments 08/19/2020 3:05 AM No automated ch est compression devices for VAD Patients Care Teams Software Test Engineer Relationship Specialty Start Date End Date None, None [address] [place] [address] PCP - General 10/26/20 Jeremy Gil MD [address] [facility] [address] [place] [address] Internal Medicine 08/19/20 Andres Alcantara DPM [address] [facility] [place] [address] Resident Podiatry 08/22/20 Grant Fletcher MD [address] [place] [address]. [address] [place] [address] Infectious Diseases 09/08/20 Niko Cueva MD [facility] [facility] [address] [place] [address] Vascular Surgery 09/16/20 Gm Flor DPM [address] [place] [address] [place] [address] Podiatry 11/01/20 Reina Byrd NP [address] [place] [address] [place] [address] Nurse Practitioner Vascular Surgery 11/30/20
--- OUTSIDE RECORDS SUMMARY | 2025-02-09 09:10 | XMS_ITS | Encounter Summary ---
Author Organization [facility] Address [address] [place] [address] Care Team Providers Care Windows Vmware Engineer Name Role Phone Tayo Jones MD Primary Care Provider [phone] Encounter Details Date Type Department Care Team (Latest Contact Info) Description 12/29/2024 Travel Social History Tobacco Use Types Packs/Day [...] in the past 12 m [facility], were you homeless or living [...] AM EDT Appointment [facility] Radiology [address] [place] [address] 02/11/2025 9:00 AM EDT Office Visit [facility] [address] [place] [address] Farhad Castillo MD [address] [address] documented as of this encounter Goals Goal [...] as of this encounter Care Teams Windows Vmware Engineer Relationship Specialty Start Date End Date Tayo Jones MD [address] [place] [phone] PCP - General 07/14/24 documented as of this encounter
--- OUTSIDE RECORDS SUMMARY | 2025-02-09 09:11 | XMS_ITS | Encounter Summary ---
Author Organization [facility] Address [address] [place] [address] Care Team Providers Care Medical Office Professional Instructor Name Role Phone Tayo Jones MD Primary Care Provider [phone] Encounter Details Date Type Department Care Team (Latest Contact Info) Description 01/06/2025 Travel Social History Tobacco Use Types Packs/Day [...] living in a chcf (including now)? No 01/07/2025 [facility] Utilities Answer Date Recorded In the past 12 months has th e electric, gas, oil, or water [employer] threatened to shut off services in your [...] (Past 1 Month) No 025 9:31 AM Maira Ruiz, RN 2. Non-Specific Active Suici sol Thoughts (Past 1 Month) No 01/06/2025 9:31 AM Maira Ruiz, RN 6. Suicidal Behavior (Lifetime) No 9:31 AM Maira Ruiz RN documented as of this encounter Plan of Treatment Upcoming Encounters Date Type Department Care Team (Late st Contact Info) Description 02/11/2025 8:20 AM EDT Appointment [facility] Radiology [address] [place] [address] 02/11/2025 9:00 AM EDT Office Visit [facility] [address] [place] [address] Farhad Castillo MD [address] [phone] documented as of this encounter Goals Goal [...] documented as of this encounter Care Teams Medical Office Professional Instructor Relationship Specialty Start Date End Date Tayo Jones MD [address] [phone] PCP - General 07/14/24 documented as of this encounter
--- OUTSIDE RECORDS SUMMARY | 2025-02-09 09:11 | XMS_ITS ---
Author Organization [facility] Address [address] [place] [address] Care Team Providers Care Domestic Violence Counselor Name Role Phone Tayo Jones MD Primary Care Provider [phone] Active Problems Problem Noted Date Diagnosed Date [...] Overview (01/08/2025): 01/06/25: OR for partial hepatectomy, cholecystectomy,[Pandalai] and hernia repair [Anca] Current Treatment and Therapy Plans No current plan information found. Past Treatment and Therapy Plans No past plan information found. Lifetime Dose Tracking * Chemical Lifetime Dose Automatic Entry Manual Entr y Fluoro Time 0.797 minutes 0.797 minutes 0 minutes Air Kerma 9.2 mGy 9.2 mGy 0 mGy
--- OUTSIDE RECORDS SUMMARY | 2025-02-09 09:11 | XMS_ITS | Encounter Summary ---
Author Organization [facility] Address [address] [place] [address] Care Team Providers Care Mixing Plant Dumper Name Role Phone Tayo Jones MD Primary Care Provider [phone] Encounter Details Date Type Department Care Team (Latest Contact Info) Description 01/08/2025 Travel Social History Tobacco Use Types Packs/Day [...] in a fci (including now)? No 01/07/2025 [facility] Utilities Answer Date Recorded In the [...] AM EDT Appointment [facility] Radiology [address] [place] [address] 02/11/2025 9:00 AM EDT Office Visit [facility] [address] [place] [address] Farhad Castillo MD [address] [address] documented as of this encounter Goals Goal [...] documented as of this encounter Care Teams Mixing Plant Dumper Relationship Specialty Start Date End Date Tayo Jones MD [address] [place] [address] PCP - General 07/14/24 documented as of this encounter
--- OUTSIDE RECORDS SUMMARY | 2025-02-09 09:11 | XMS_ITS | Encounter Summary ---
Author Organization [facility] Address [address] [id number] Care Team Providers Care Television Repair Teacher Name Role Phone Tayo Jones MD Primary Care Provider [phone] Encounter Details Date Type Department Care Team (Late st Contact Info) Description 01/05/2025 Telephone [facility] General Surgery [address] [place] [phone] Eva Dale RN [facility] [place] [address] Social History Tobacco Use Types Packs/Day Years [...] EDT Appointment [facility] [address] [place] [address] 02/11/2025 9:00 AM EDT Office Visit [facility] [address] [place] [address] Farhda Castillo MD [address] [address] documented as of this encounter Goals Goal Patient Goal Type Associated Problems Recent Progress Patient-Stated? Author Autogene inessa Goal Care Plan Autogenerated Problem No [...] documented as of this encounter Care Teams Television Repair Teacher Relationship Specialty Start Date End Date Tayo Jones MD [address] [place] [address] PCP - General 07/14/24 documented as of this encounter
[2025-02-09] MEDS: SODIUM CHLORIDE 0.9% 10ML FLUSH SYRINGE 10 ML IV (09:20)
== END 2025-02-09 23:59 | disposition home or self-care (01) ==
LOC: INF 08:56
PROVIDERS: PCP Family Medicine; Visit Provider Internal Medicine Medical Oncology
DX: C18.2 Malignant neoplasm of ascending colon (principal)
CPT/HCPCS: 96523; J1642

== ENCOUNTER 2025-02-15 10:59 | Outpatient (CLI) | payer MEDICAID, SELFPAY ==
--- OUTSIDE RECORDS SUMMARY | 2024-12-17 07:00 | XMS_ITS | Encounter Summary ---
Author Organization [facility] Address [address] [place] [address] Care Team Providers Care Veneer Taper Name Role Phone aTyo Jones MD Primary Care Provider [phone] Reason for Referral * Imaging (Routine) - Closed Specialty Diagnoses / Procedures Referred By Samia pagan Referred To Contact Cardiology Diagnoses High risk surgery, pre-operative cardiovascular examination Shortness of breath on exertion Procedures NM Myocardial Perfusion Stress Test Farhad Castillo MD [address] [address] Phone: tel: fax: Referral ID Status Reason Start Date Expiration Date Visits Re quested Visits Authorized [id number] Closed 11/19/2024 05/21/2026 1 1 Reason for Visit * Imaging (Routine) - Closed Specialty Diagnoses / Procedures Referred By Samia pagan Referred To Contact Cardiology Diagnoses High risk surgery, pre-operative cardiovascular examination Shortness of breath on exertion Procedures NM Myocardial Perfusion Stress Test Farhad Castillo MD [address] [address] Phone: tel: fax: Referral ID Status Reason Start Date Expiration Date Visits Re quested Visits Authorized [id number] Closed 11/19/2024 05/21/2026 1 1 Encounter Details Date Type Department Care Team (Latest Contact Info) Description 12/17/2024 8:00 AM EDT - 12/17/2024 8:06 AM EDT Hospital Encounter Cardiac Imaging [address] [place] [address] High risk surgery, pre-operative cardiovascular examination; Shortness of breath on exertion Discharge Disposition: Home or Self Care Social History Tobacco Use Types Packs/Day Years Used Date Smoking Tobacco: Never Smokeless Tobacco: Never Alcohol Use Standard Drinks/Week Comments Never 0 (1 standard drink = 0.6 oz pur e alcohol) PHQ-2 Answer Date Recorded Patient Health Questionnaire-2 Score 0 12/24/2024 Humiliation, Afraid, Rape, and Kick questionnair e [...] the past 12 months has th e [employer], gas, oil, or water company threatened to shut off services in your home? No 10/09/2024 Sex and Gender Information Value Date Recorded Sex Assigned at Male 07/31/2024 7:25 AM EDT Legal Sex Male 12:34 PM EDT Gender Identity Male 07/31/2024 7:25 AM EDT Sexual Orientation Not on file documented as of this encounter Medications at Time of Discharge carvedilol (Coreg) 12.5 MG tablet Take by mouth in the morning and in the evening. Take with meals. 07/30/2023 ferrous sulfate 325 (65 Fe) MG EC tablet 08/12/2023 loperamide (Imodium A-D) 2 MG tablet Take by mouth 3 times a day as needed. 04/19/2024 magnesium oxide (Mag-Ox) 400 MG tablet Take 1 tablet by mouth 2 times a day. 11/07/2024 Multiple Vitamin (multivitamin) tablet Take 1 tablet by mouth daily. potassium chloride CR (Klor-Con M20) 20 MEQ ER tablet Take 1 tablet by mouth 2 times a day. 11/09/2024 Quercetin 500 MG capsule Take 2 tablets by mouth daily. sodium bicarbonate 650 MG tablet Take 1 tablet by mouth 2 times a day. 11/09/2024 spironolactone (Aldactone) 25 MG tablet Take 1 tablet by mouth daily. 07/11/2024 ondansetron (Zofran) 4 MG tablet 04/19/2024 acetaminophen (Tylenol) 500 MG tablet Take 1 tablet by mouth every 6 hours as needed for pain. 50 tablet 07/31/2024 01/13/2025 amLODIPine (Norvasc) 5 MG tablet Take 1 tablet by mouth in the morning. 01/08/2025 capecitabine (Xeloda) 500 MG chemo tablet Take 3 tablets (1,500 mg total) by mouth 2 (two) times a day. Swallow whole with water. Do not crush or cut. 01/13/2025 doxycycline (Vibramycin) 100 MG capsule 11/11/2024 12/24/2024 insulin lispro (Admelog, HumaLOG) 100 UNIT/ML injection pen Inject 10 Units under the skin 3 times a day with meals. 08/01/2023 01/13/2025 Lantus SoloStar 100 UNIT/ML injection pen Inject 35 Units under the skin nightly. 05/29/2024 01/13/2025 lisinopril 20 MG tablet Take 1 tablet by mouth daily. 10/26/2024 01/13/2025 lisinopril-hydroC HLOROthiazide 20-25 MG tablet Take 1 tablet by mouth daily. 01/08/2025 mupirocin (Bactroban) 2 % ointment 11/24/2024 12/24/2024 documented as of this encounter Plan of Treatment Upcoming Encounters Date Type Department Care Team (Late st Contact Info) Description 05/13/2025 7:30 AM EST Appointment [facility] A Radiology [address] [place] [address] 05/13/2025 10:15 AM EST Office Visit [facility] [address] [place] [address] Farhad Castillo MD [address] [address] documented as of this encounter Procedures Procedure Name Priority Date/Time Associated Diagnosis Comments NM MYOCARDIAL SPECT REGADENOSON STRESS (MULTI STUDY) Routine 12/17/2024 9:45 AM EDT High risk surgery, pre-operative cardiovascular examination Shortness of breath on exertion documented in this encounter Results * NM MYOCARDIAL SPECT REGADENOSON STRESS (MULTI [...] performed under direct supervision of the reading gasket inspector. Study Impression There is no significant patient [...] Castillo MD CV STRESS PROCEDURES Final Result documented in this encounter Visit Diagnoses Diagnosis High risk surgery, pre-operative cardiovascular examination Pre-operative cardiovascular examination Shortness of breath on exertion Shortness of breath documented in this encounter Administered Medications Inactive Administered Medications - up to 3 most recent administrations Medication Order MAR Action Action Date Dose Rate Site Technetium Tc 99m Sestamibi radio-isotope injection 8 millicurie 8 millicurie, Intravenous, Once, 1 dose, On Zabrina 12/17/24 at 0930, Routine Given 12/17/2024 8:39 AM EDT 8 millicuries documented in this encounter Additional Health Concerns Assessment Noted Time A fall risk assessment has been complete d for the patient 07/23/2024 8:54 AM EDT A Body Mass Index follow-up plan has been documented for the patient 11/24/2024 5:29 PM EDT documented as of this encounter Care Teams Veneer Taper Relationship Specialty Start Date End Date Tayo Jones MD [address] [place] [address] PCP - General 07/14/24 documented as of this encounter
--- OUTSIDE RECORDS SUMMARY | 2024-12-17 07:07 | XMS_ITS | Encounter Summary ---
Author Organization [facility] Address [address] [place] [address] Care Team Providers Care Tobacco Shaker Name Role Phone Tayo Jones MD Primary Care Provider [phone] Reason for Visit * Imaging (Routine) - Closed Specialty Diagnoses / Procedures Referred By Samia pagan Referred To Contact Cardiology Diagnoses High risk surgery, pre-operative cardiovascular examination Shortness of breath on exertion Procedures NM Myocardial Perfusion Stress Test Farhad Castillo MD [address] [place] [address] Phone: tel: fax: Referral ID Status Reason Start Date Expiration Date Visits Re quested Visits Authorized [id number] Closed 11/19/2024 05/21/2026 1 1 Encounter Details Date Type Department Care Team (Latest Contact Info) Description 12/17/2024 8:07 AM EDT - 12/17/2024 11:26 AM EDT Hospital Encounter Cardiac Imaging [address] [place] [address] Discharge Disposition: Home or Self Care Social [...] the past 12 months has th e [employer], gas, oil, or water company threatened to [...] EST Appointment [facility] Radiology [address] [place] [address] 05/13/2025 10:15 AM EST Office Visit [facility] [address] [place] [address] Farhad Castillo MD [address] [address] documented as of this encounter Procedures Procedure Name Priority Date/Time Associated Diagnosis Comments NM MYOCARDIAL SPECT REGADENOSON STRESS (MULTI STUDY) Routine 12/17/2024 9:45 AM EDT High risk surgery, pre-operative cardiovascular examination Shortness of breath on exertion documented in this encounter Visit Diagnoses Not on filedocumented in this encounter Administered Medications Inactive Administered Medications - up to 3 most recent administrations Medication Order MAR Action Action Date Dose Rate Site Technetium Tc 99m Sestamibi radio-isotope injection 24.9 millicurie 24.9 millicurie, Intravenous, Once, 1 dose, On Zabrina 12/17/24 at 1000, Routine Given 12/17/2024 9:30 AM EDT 24.9 millicuries documented in this encounter Additional Health Concerns Assessment Noted Time A fall risk assessment has been complete d for the patient 07/23/2024 8:54 AM EDT A Body Mass Index follow-up plan has been documented for the patient 11/24/2024 5:29 PM EDT documented as of this encounter Care Teams Tobacco Shaker Relationship Specialty Start Date End Date Tayo Jones MD [address] [place] [address] PCP - General 07/14/24 documented as of this encounter
--- OUTSIDE RECORDS SUMMARY | 2024-12-17 10:27 | XMS_ITS | Encounter Summary ---
Author Organization [facility] Address [address] [place] [address] Care Team Providers Care Finished Hardware Erector Name Role Phone Tayo Jones MD Primary Care Provider [phone] Reason for Referral * Imaging (Routine) - Closed Specialty Diagnoses / Procedures Referred By Samia pagan Referred To Contact Radiology Diagnoses Metastatic colon cancer to liver Procedures MR Abdomen w and wo IV Contrast Farhad Castillo MD [address] [address] Phone: tel: fax: Referral ID Status Reason Start Date Expiration Date Visits Re quested Visits Authorized [id number] Closed 11/19/2024 05/21/2026 1 1 Reason for Visit * Imaging (Routine) - Closed Specialty Diagnoses / Procedures Referred By Samia pagan Referred To Contact Radiology Diagnoses Metastatic colon cancer to liver Procedures MR Abdomen w and wo IV Contrast Farhad Castillo MD [address] [address] Phone: tel: fax: Referral ID Status Reason Start Date Expiration Date Visits Re quested Visits Authorized [id number] Closed 11/19/2024 05/21/2026 1 1 Encounter Details Date Type Department Care Team (Latest Contact Info) Description 12/17/2024 11:27 AM EDT - 12/17/2024 11:59 PM EDT Hospital Encounter [facility] [address], 1[address] [place] [address] Metastatic colon cancer to liver [...] any time in the past 12 m [facility], were you homeless or living in a fdc (including now)? No 10/09/2024 Utilities Answer Date Recorded In the past 12 months has e [employer], [employer], [employer], or water [employer] threatened to shut off services in your [...] EST Appointment [facility] Radiology [address] [place] [address] 05/13/2025 10:15 AM EST Office Visit [facility] [address] [place] [address] Farhad Castillo MD [address] [address] documented as of this encounter Procedures Procedure Name Priority Date/Time Associated Diagnosis Comments MR ABDOMEN W AND WO IV CONTRAST Routine 12/17/2024 12:29 PM EDT Metastatic colon cancer to liver (CMS/HCC) documented in this encounter Results * MR Abdomen w [...] using the following sequences: coronal single shot [id number] fast spin echo, axial T2 weighted sequences [...] Tawana Borrego MD on 12/17/2024 4:48 PM Farhad Castillo MD IMG MRI PROCEDURES Final R esult documented in this encounter Visit Diagnoses Diagnosis Metastatic colon cancer to liver documented in this encounter Administered Medications Inactive Administered Medications - up to 3 most recent administrations Medication Order MAR Action Action Date Dose Rate Site gadobutrol (Gadavist) injection 11.3 mL 11.3 mL (0.1 mL/kg 113 kg), Intravenous, Once in imaging, 1 dose, Starting on Zabrina 12/17/24 at 1133, Until Zabrina 12/17/24 at 1228, Routine, Imaging Protocol Orders Given 12/17/2024 12:28 PM EDT 11.3 mL documented in this encounter Additional Health Concerns Assessment Noted Time A fall risk assessment has been complete d for the patient 07/23/2024 8:54 AM EDT A Body Mass Index follow-up plan has been documented for the patient 11/24/2024 5:29 PM EDT documented as of this encounter Care Teams Finished Hardware Erector Relationship Specialty Start Date End Date Tayo Jones MD [address] [place] [address] PCP - General 07/14/24 documented as of this encounter
--- OUTSIDE RECORDS SUMMARY | 2024-12-24 08:15 | XMS_ITS | Encounter Summary ---
Author Organization [facility] Address [address] [place] [address] Care Team Providers Care Lamps Tester And Inspector Name Role Phone Tayo Jones MD Primary Care Provider [phone] Reason for Referral * Consultation (Routine) - Closed Specialty Diagnoses / Procedures Referred By Samia pagan Referred To Contact General Surgery Diagnoses Metastatic colon cancer to liver Hernia Farhad Castillo MD [address] [address] Phone: tel: fax: Heidi March MD [address] [facility] [address] [place] [address] Phone: tel: fax: Referral ID Status Reason Start Date Expiration Date V isits Requested Visits Authorized [id number] Closed Specialty Services Required 12/24/2024 06/25/2026 1 1 Scheduling Instructions OK'D by Dr. March to be seen today. Combo surgery w/ on 01/06/2025 Reason for Visit * Reason Comments Follow-up Encounter Details Date Type Department Care Team (Latest Contact Info) Description 12/24/2024 9:15 AM EDT Office Visit [facility] Multidisciplinary Oncology Clinic [address] [place] [phone] Farhad Castillo MD [address] [address] Metastatic colon cancer to liver (CMS/HCC) (Primary Dx); Hernia Social History Tobacco Use Types Packs/Day Years [...] Sign Reading Time Taken Comments Blood Pressure 116/77 12/24/2024 8:46 AM EDT Pulse 70 12/24/2024 8:46 AM EDT Temperature 37.2 C (99 F) 12/24/2024 8:46 AM EDT Respiratory Rate - - Oxygen Saturation 98% 12/24/2024 8:46 AM EDT Inhaled Oxygen Concentration - - Weight 115 kg (254 lb 6.6 oz) 12/24/2024 8:46 AM EDT Height 180.3 cm (5' 11 ) 12/24/2024 8:46 AM EDT Body Mass Index 35.48 12/24/2024 8:46 AM EDT documented in this encounter Functional Status * Over the past 2 weeks, how often have you been bothered by any of the following problems? Question Answer Date of Assessment Author Little interest or pleasure in doing things Not at all 12/24/2024 8:48 AM EDT Chio Mckeon Feeling down, depressed, or hopeless Not at all 12/24/2024 8:48 AM EDT Chio Mckeon Patient Health Questionnaire -2 Score 0 12/24/2024 8:48 AM EDT Chio Mckeon * Question Answer Date of Assessment Author Thoughts that you would be b dominic off or hurting yourself in some way Not at all 12/24/2024 8:48 AM EDT Chio Mckeon documented as of this encounter Miscellaneous Notes * H&P Kalie Feliciano - 12/24/2024 9:15 AM EDT Surgical Oncology Outpatient Chief complaint: Nayan Womack is a 59 y.o. Stage IV Colon CA with Liver Metastases History of Present Illness: Mr. Kaba is a 59 yo M who is here with his sister to discuss next steps management with updated imaging iso metastatic stage 4 colon cancer with metastasis to the liver. He has a PMHx of DM, on insulin with A1c of 7.3, and obesity. History of stage III R colon cancer in October 2022, for which he co mpleted 3 months of adjuvant Xoleda by Dec 2022 post R hemicolectomy. Complicated by incisional hernia, present. In 03/2024, had an increased CEA of 4.8 on RTC, indicating further workup. CT scan showed 2 liver lesions and follow-up 06/2024 PET scan showed 3 FDG avid lesions predominantly located in segment 7 and 6 of the liver. He was referred to our service on 07/2024, where he initiated 3 months of neoadjuvant Irinotecan with Dr. Matthew sp port placement 07/2024 , now complete. He is here post updated imaging to assess possibility of surgical management. Overall, Mr. Kaba is doing well today with no changes since last visit. Denies pain, systemic symptoms, weight loss, fatigue, changes in BM. Denies hx of heart problems, stroke, smoking, alcohol use, recent use of blood thinners. Past Medical History: Past Medical History Pertinent [...] morning. Patient not taking: Reported on 07/27/2024 Provider, Historical capecitabine (Xeloda) 500 MG chemo tablet Take 3 tablets (1,500 mg total) by mouth 2 (two) times a day. Swallow whole with water. Do not crush or cut. Provider, Historical carvedilol (Coreg) 12.5 MG tablet Take by mouth in the morning and in the evening. Take with meals.07/30/23 Provider, Historical doxycycline (Vibramycin) 100 MG capsule 11/11/24 Provider, Historical ferrous sulfate 325 (65 Fe) MG EC tablet 08/12/23 Provider, Historical insulin lispro (Admelog, HumaLOG) 100 UNIT/ML injection pen Inject 10 Units under the skin 3 (three) times a day with meals. 08/01/23 Provider, Historical Lantus SoloStar 100 UNIT/ML injection pen Inject 35 Units under the skin nightly. 05/29/24 Provider,Historical lisinopril 20 MG tablet 10/26/24 Provider, Historical lisinopril-hydroCHLOROthiazide 20-25 MG tablet Take 1 tablet by mouth daily. Provider, Historical magnesium oxide (Mag-Ox) 400 MG tablet 11/07/24 Provider, Historical Multiple Vitamin (multivitamin) tablet Take 1 tablet by mouth daily. Provider, Historical ondansetron (Zofran) 4 MG tablet 04/19/24 Provider, Historical potassium chloride CR (Klor-Con M20) 20 MEQ ER tablet 11/09/24 Provider, Historical Quercetin 500 MG capsule Take 2 tablets by mouth daily. Provider, Historical sodium bicarbonate 650 MG tablet 11/09/24 Provider, Historical spironolactone (Aldactone) 25 MG tablet Take 1 tablet by mouth daily. 07/11/24 Provider, Historical Review of Systems: 14 ROS was conducted and is otherwise negative unless noted in HPI. Physical exam: GENERAL: WD, WN, NAD. EYES: [...] and affect congruent and appropriate to situation. Objective: All laboratory, images, tracings, and vital sign data are personally reviewed unless otherwise noted. Lab Results Component Value Date WBC 8.85 12/24/2024 HGB 12.8 (L) 12/24/2024 HCT 39.4 (L) 12/24/2024 MCV 92 12/24/2024 PLT 279 12/24/2024 Lab Results Component Value Date ALT 13 12/24/2024 AST 27 12/24/2024 ALKPHOS 78 12/24/2024 BILITOT 0.4 12/24/2024 Lab Results Component Value Date CREATININE 0.89 12/24/2024 BUN 12 12/24/2024 NA 139 12/24/2024 K 4.8 12/24/2024 CL 104 12/24/2024 CO2 21 (L) 12/24/2024 Recent Labs Units 07/23/24 1036 11/19/24 1126 CEA ng/mL 9.1* 7.7* Lab Results Component Value Date CEA 7.7 (H) 11/19/2024 Final Diagnosis (no units) Date/Time Value 07/16/2024 1313 RIGHT COLON AND TERMINAL ILEUM, RIGHT HEMICOLECTOMY ([id number]; 11/09/2022): - INVASIVE MODERATELY DIFFERENTIATED ADENOCARCINOMA OF [...] (MLH-1, MSH-2, MSH-6, and PMS-2). Radiographics/Diagnostics: === 12/17/24 === MR Abdomen w and wo IV Contrast CLINICAL INDICATION: Metastatic colon cancer to liver [...] coronal), and axial diffusion. 11.3 mL of Gadavistwas administered. COMPARISON: 11/19/2024 CT abdomen and pelvis [...] grossly stable though difficult to delineate on comparison,seen on 11:25 Gallbladder and biliary tree: Unremarkable. [...] Tawana Borrego MD on 12/17/2024 4:48 PM Assessment & Plan: I had a conversation with the patient and family reviewing the surgical management of metastatic stage 4 colon cancer to the liver in the setting of chronic incisional hernia. I reviewed the anatomy and function of the upper GI tract as well as the location of the metastatic lesions in the right lobe of the liver. Of note, patient has already undergone genetic testing. Based on my review of imaging, which showed 2 stable liver lesions without new findings and normal perioperative cardiac stress testing, this appears to be a case of resectable liver mets. I discussed our recommendation to proceed with an open partial right hepatectomy in combination with a ventralincisional hernia repair. We recommend referral to Dr. March and General Surgery team for further assessment and management recommendations during surgical intervention. I broadly reviewed the operation as well as routine length of hospital stay between 5 and 7 days. Ireviewed routine postoperative care including nasogastric suctioning, epidural catheter placement, Wu catheter placement, as well as possible need for total parental nutrition, subcutaneous or IV medications and drainage for possible infection and/or hemorrhage. I established complications of the operation including biliary leak, intra-abdominal abscess, bleeding, hematoma were all broadly reviewed. Consent was obtained. To assess liver function, APTT, INR, CMP, prealbumin are obtained. All of their questions were answered in detail. Consent was obtained in clinic today, preoperative nursing and education were also performed and wecoordinated additional care with Dr. Heidi March for complex ventral hernia repair on 01/06/2025. I spent 60 minutes was spent on [...] our treatment planning include: Diabetes (DM) - borderline controlled, with a last HbA1C of: 6.7 Obesity - poorly controlled, with a last BMI of: Body mass index is 35.48 kg/m??. Metastatic Cancer Incisional Hernia ANA Braga 12/24/24 8:49 AM [1] Past Medical History: Diagnosis Date Diabetes (CMS/HCC) High blood pressure [2] Past Surgical History: Procedure Laterality Date APPENDECTOMY FOOT SURGERY Left surgery dur to diabetes LEG SURGERY Right surgery dur to diabetes [3] No Known Allergies Cosigned by Farhad Castillo MD at 12/25/2024 9:19 AM EDT Associated attestation - Farhad Castillo MD - 12/25/2024 9:19 AM EDT I saw and evaluated the patient with the medical/EVENING SITTER/PA student. I discussed the case with the medical/EVENING SITTER/PA student and agree with the findings and plan as documented. I personally performed the Examand Medical Decision Making. documented in this encounter Plan of Treatment Upcoming Encounters Date Type Department Care Team (Late st Contact Info) Description 05/13/2025 7:30 AM EST Appointment [facility] [address] [place] [address] 05/13/2025 10:15 AM EST Office Visit [facility] [address] [place] [address] Farhad Castillo MD [address] [address] Scheduled Orders Name Type Priority Associated Diagnoses Orde r Schedule ECG Adult ECG Routine Metastatic colon cancer to liver (CMS/HCC) 1 Occurrences starting 12/24/2024 until 12/24/2025 Scheduled Referrals Name Type Priority Associated Diagnoses Order Schedule Ambulatory referral to General Surgery ([facility]) Outpatient Referral Routine Metastatic colon cancer to liver (CMS/HCC) Hernia Expected: 12/24/2024, Expires: 06/27/2026 documented as of this encounter Goals Goal Patient Goal Type Associated Problems Recent Progress Patient-Stated? Author Autogenera inessa Goal Care Plan Autogenerated Problem No Farhad Castillo MD documented as of this encounter Results * APTT (12/24/2024 9:22 AM EDT) aPTT 25 25 - 35 sec LAB COAGULATION METHOD 12/24/2024 9:59 AM EDT [facility] Blood Venous blood specimen / Unknown Venipuncture / Unknown 12/24/2024 9:22 AM EDT 12/24/2024 9:38 AM EDT us Farhad Castillo MD LAB BLOOD ORDERABLES Final Result [facility] [address] [place] [address] * Prothrombin Time/INR (12/24/2024 9:22 AM EDT) Prothrombin Time 14.0 12.0 - 14.3 sec LAB COAGULATION METHOD 12/24/2024 9:59 AM EDT [facility] INR 1.1 0.9 - 1.1 LAB COAGULATION METHOD 12/24/2024 9:59 AM EDT [facility] Blood Venous blood specimen / Unknown Venipuncture / Unknown 12/24/2024 9:22 AM EDT 12/24/2024 9:38 AM EDT Narrative [facility] - 12/24/2024 9:59 AM EDT OPTIMAL INR RANGES FOR PATIENT ON ORAL ANTICOAGULANT THERAPY Prevention of venous thromboembolism INR 2.0 to 3.0 In patients with heart disease: Atrial fibrillation INR 2.0 to 3.0 Valvular heart disease INR 2.0 to 3.0 Tissue heart valves INR 2.0 to 3.0 Mechanical prosthetic valves INR 2.5 to 3.5 Prevention of recurrent NE INR 2.5 to 3.5 us Farhad Castillo MD LAB BLOOD ORDERABLES Final Result Performing Organization Address [facility] Co de Phone Number [facility] [address] [place] [address] * Prealbumin, Plasma (12/24/2024 9:22 AM EDT) Prealbumin, Plasma 21.3 20.0 - 41.0 mg/dL 12/24/2024 10:24 AM EDT [facility] Blood Venous blood specimen / Unknown Venipuncture / Unknown 12/24/2024 9:22 AM EDT 12/24/2024 9:38 AM EDT us Farhad Castillo MD LAB BLOOD ORDERABLES Final Result [facility] [address] [place] [address] * (ABNORMAL) Comprehensive Metabolic Panel, Plasma (12/24/2024 9:22 AM EDT) Glucose, Plasma 194(H) 74 - 99 mg/dL 12/24/2024 10:24 AM EDT [facility] BUN, Plasma 12 8 - 23 mg/dL 12/24/2024 10:24 AM EDT [facility] Creatinine, Plasma 0.89 0.70 - 1.20 mg/dL 12/24/2024 10:24 AM EDT [facility] BUN/Creatinine Ratio 13 12/24/2024 10:24 AM EDT [facility] Sodium, Plasma 139 136 - 145 mmol/L 12/24/2024 10:24 AM EDT [facility] Potassium, Plasma 4.8 3.6 - 4.9 mmol/L 12/24/2024 10:24 AM EDT [facility] Chloride, Plasma 104 97 - 107 mmol/L 12/24/2024 10:24 AM EDT [facility] CO2, Plasma 21(L) 22 - 29 mmol/L 12/24/2024 10:24 AM EDT [facility] Anion Gap 14 6 - 16 mmol/L 12/24/2024 10:24 AM EDT [facility] Total Calcium, Plasma 8.8(L) 8.9 - 10.2 mg/dL 12/24/2024 10:24 AM EDT [facility] Total Protein 6.7 6.3 - 7.9 g/dL 12/24/2024 10:24 AM EDT [facility] Albumin, Plasma 3.6 3.5 - 5.2 g/dL 12/24/2024 10:24 AM EDT [facility] AST, Plasma 27 10 - 50 U/L 12/24/2024 10:24 AM EDT [facility] ALT, Plasma 13 10 - 50 U/L 12/24/2024 10:24 AM EDT [facility] Alkaline Phosphatase, Plasma 78 40 - 115 U/L 12/24/2024 10:24 AM EDT [facility] Total Bilirubin, Plasma 0.4 0.2 - 1.1 mg/dL 12/24/2024 10:24 AM EDT [facility] eGFRcr 98.1 mL/min/1.7 3m*2 12/24/2024 10:24 AM EDT [facility] Comment:Reported eGFRcr in m L/min/1.73m2 is based the CKD-EPI 2020 equation that does not use a race coefficient. Blood Venous blood specimen / Unknown Venipuncture / Unknown 12/24/2024 9:22 AM EDT 12/24/2024 9:38 AM EDT us Farhad Castillo MD LAB BLOOD ORDERABLES Final Result [facility] [address] [place] [address] * (ABNORMAL) CBC W/O Differential (12/24/2024 9:22 AM EDT) WBC Count 8.85 3.70 - 10.30 10*3/uL LAB HEMATOLOGY METHOD 12/24/2024 10:09 AM EDT [facility] RBC Count 4.28(L) 4.60 - 6.10 10*6/uL LAB HEMATOLOGY METHOD 12/24/2024 10:09 AM EDT [facility] HGB 12.8(L) 13.7 - 17.5 g/dL LAB HEMATOLOGY METHOD 12/24/2024 10:09 AM EDT [facility] HCT 39.4(L) 40.0 - 51.0 % LAB HEMATOLOGY METHOD 12/24/2024 10:09 AM EDT [facility] Platelet Count 279 155 - 369 10*3/uL LAB HEMATOLOGY METHOD 12/24/2024 10:09 AM EDT [facility] MCV 92 79 - 98 fL LAB HEMATOLOGY METHOD 12/24/2024 10:09 AM EDT [facility] MCH 29.9 26.0 - 32.0 pg LAB HEMATOLOGY METHOD 12/24/2024 10:09 AM EDT [facility] MCHC 32.5 30.7 - 35.5 g/dL LAB HEMATOLOGY METHOD 12/24/2024 10:09 AM EDT [facility] RDW 13.9 11.5 - 14.5 % LAB HEMATOLOGY METHOD 12/24/2024 10:09 AM EDT [facility] MPV 9.4 8.8 - 12.5 fL LAB HEMATOLOGY METHOD 12/24/2024 10:09 AM EDT [facility] nRBC 0.0 <=0.0 per 100 WBCs LAB HEMATOLOGY METHOD 12/24/2024 10:09 AM EDT [facility] Blood Venous blood specimen / Unknown Venipuncture / Unknown 12/24/2024 9:22 AM EDT 12/24/2024 9:46 AM EDT us Farhad Castillo MD LAB BLOOD ORDERABLES Final Result [facility] [address] [place] [address] documented in this encounter Visit Diagnoses Diagnosis Metastatic colon cancer to liver- Primary Hernia documented in this encounter Additional Health Concerns Active Problems Noted Date Diagnosed Date Autogenerated Problem 12/24/2024 Assessment Noted Time A fall risk assessment has been complete d for the patient 12/24/2024 8:48 AM EDT A Body Mass Index follow-up plan has been documented for the patient 12/29/2024 3:27 PM EDT documented as of this encounter Care Teams Lamps Tester And Inspector Relationship Specialty Start Date End Date Tayo Jones MD [address] [place] [address] PCP - General 07/14/24 documented as of this encounter
--- OUTSIDE RECORDS SUMMARY | 2024-12-24 09:45 | XMS_ITS | Encounter Summary ---
Author Organization [facility] Address [address] [place] [address] Care Team Providers Care Quotation Clerk Name Role Phone Tayo Jones MD Primary Care Provider [phone] Reason for Visit * Reason Comments Consult Encounter Details Date Type Department Care Team (Late st Contact Info) Description 12/24/2024 10:45 AM EDT Consult [facility] General Surgery [address] [place] [address] Heidi March MD [address] [place] [address] Personal history of nutritional deficiency (Primary Dx); Incisional hernia, without obstruction or gangrene; Metastatic colon cancer to liver (CMS/HCC) Social History Tobacco Use Types Packs/Day Years [...] any time in the past 12 m [facility], were you homeless or living in [...] Sign Reading Time Taken Comments Blood Pressure 145/76 12/24/2024 10:17 AM EDT Pulse 75 12/24/2024 10:17 AM EDT Temperature 36.4 C (97.5 F) 12/24/2024 10:17 AM EDT Respiratory Rate 16 12/24/2024 10:17 AM EDT Oxygen Saturation 98% 12/24/2024 10:17 AM EDT Inhaled Oxygen Concentration - - Weight 115 kg (254 lb 1.6 oz) 12/24/2024 10:17 A M EDT Height 175.9 cm (5' 9.25 ) 12/24/2024 10:17 AM E DT Body Mass Index 37.25 12/24/2024 10:17 AM EDT documented in this encounter Functional [...] as of this encounter Miscellaneous Notes * Eva Reynolds RN - 12/24/2024 2:40 PM EDT Images from the original note were not included. [id number] Hernia Repair Surgery A hernia is a weakness or defect in the wall of the belly (abdomen). This causes an internal organ to stick out (protrude) through the wall of muscle or tissue that normally holds it in place. A hernia won't heal on its own. Surgery is needed to fix the defect in the abdominal wall. If not treated,a hernia can get larger. In rare cases, it can also lead to serious health complications. Fortunately hernia surgery can be done quickly and safely. Below is an overview of hernia repair surgery. Getting ready for surgery Your healthcare provider will talk with you about getting ready for surgery. Follow all the instructions you?re given and be sure to: ? Tell your healthcare provider about any medicines, supplements, vitamins, or herbs you take. Thisincludes both prescription and ixki-yrf-ovkvlwj medicines. Ask if you should stop taking any of them. ? In general, stop taking aspirin, ibuprofen, naproxen, and other nonsteroidal anti-inflammatory drugs (NSAIDs) 3 days before surgery. But if you take aspirin, or other antiplatelet medicines, for a heart condition or a past stroke, talk with your providers before stopping. ? Arrange for an adult family member or friend to give you a ride home after surgery. ? Stop smoking. Smoking affects blood flow and can slow healing. Smoking can make you more likely to have complications from anesthesia and the surgery. ? Gently wash the surgical area the night before surgery. You may be given a special scrub to use. ? Follow any directions you're given for not eating or drinking before surgery. The day of surgery Arrive at the hospital or surgical center at your scheduled time. You?ll be asked to change into a patient gown. You?ll then be given an IV (intravenous) line for fluids and medicine. Shortly before surgery, an anesthesiologist or nurse cardiac care unit nurse will talk with you. They'll explain the types of anesthesia used to prevent pain during surgery. You'll have 1 or more of the following: ? Monitored sedation to make you relaxed and sleepy. ? Local anesthesia to numb the surgical site. ? Regional anesthesia to numb certain areas of your body. ? General anesthesia to let you sleep during surgery. Fixing the weakness Surgery treats a hernia by repairing the weakness in the abdominal wall. Most hernias are treated using tension-free repairs. This is surgery that uses special mesh materials to repair the weak area.The mesh covers the weak area like a patch. The mesh is made of strong, flexible plastic that staysin the body. Over time, nearby tissues grow into the mesh to strengthen the repair. After surgery When the procedure is over, you?ll be taken to the PACU (post anesthesia care unit) to be watched. Your blood pressure, breathing, and heart rate will be monitored. You?ll also have some type of bandage over the surgical site. To help reduce discomfort, you?ll be given pain medicines as needed. Youmay also be given breathing exercises to keep your lungs clear. Later you?ll be asked to get up andwalk. This helps prevent blood clots in the legs. You can go home when your healthcare provider says you?re ready. Risks and possible complications of hernia surgery ? Bleeding ? Infection ? Numbness or pain in the groin or leg ? Risk the hernia will recur ? Damage to the testicles or testicular function ? Anesthesia risks ? Mesh complications ? Inability to pee ? Bowel or bladder injury Last Reviewed Date: 2023 00:00:00 ?? [id number] [employer]. All rights reserved. This information is not intended as a substitute for professional medical care. Always follow your healthcare professional's instructions. * Progress Notes - Reina Benoit - 12/24/2024 10:45 AM EDT Subjective Nayan Womack is a 59 y.o. male presenting in Consultation for an incisional hernia from Dr. Slater with Surgical Oncology. Patient to undergo a combined hepatectomy due to metaststic colon cancer to the liver and incisional hernia repair. Patient reports incisional periumbilical hernia secondary to prior colectomy incision. He describesan abdominal bulge in the periumbilical area which is currently not painful, but gradually progressing in size. No history of obstruction, however hernia has to be taken care of to allow for his cancer operation. Currently experiencing no symptoms. Currently denies symptoms of pain, history of bowel obstructions, bowel changes, constipation, nausea, vomiting, diarrhea, skin changes, draining wounds, fevers, and chills. Prior Ventral hernia repair: No Recent testing: CT scan - 11/19/24 Impression: Prior right colectomy. Large and small bowel appear normal in caliber. There is a ventral abdominal wall hernia containing small bowel. Mild wall thickening of the segment of small bowel leading to the ileocolic anastomosis US - not performed I personally reviewed imaging. Outside medical records reviewed and commented on above. Body mass index is 37.25 kg/m??. Non-smoker Medical/Surgical/Social/Family History Past Medical History[1] Surgical History[2] Social History[3] Family History[4] Family History[5] Current Medications[6] Allergies Patient has no known allergies. Review of Systems Constitutional: Negative for activity change, appetite change, chills and fever. HENT: Negative for congestion. Cardiovascular: Negative for chest pain. Gastrointestinal: Positive for abdominal distention. Negative for diarrhea, nausea and vomiting. Genitourinary: Negative for decreased urine volume, difficulty urinating and frequency. Musculoskeletal: Negative for arthralgias. Skin: Ventral hernia present Neurological: Negative for dizziness and weakness. Objective Visit Vitals BP (!) 145/76 (BP Location: Right arm, Patient Position: Sitting) Pulse 75 Temp 36.4 ??C (97.5 ??F) (Temporal) Ht 1.759 m (5' 9.25 ) Wt 115 kg (254 lb 1.6 oz) SpO2 98% BMI 37.25 kg/m?? Physical Exam Constitutional: well developed, well nourished, and in no acute distress Eyes: equal, round, and reactive Ears, Nose, Throat: normal atraumatic, no neck masses Respiratory: Normal Effort, Normal Rate Cardiac: Heart regular rate and rhythm Abdomen: Soft, non-tender; no organomegaly or masses. Hernias: incisional hernia present, reducible. No overlying skin changes. Genitourinary: not indicated Musculoskeletal: normal strength, tone, and muscle mass, no deformities, ambulates easily onto the chair, short steps, use his cane to get down for stability. Psychiatric: oriented to time, place and person, mood and affect are within normal limits Neurologic: motor intact and no focal deficits Skin: [place], warm, well perfused Assessment/Plan Problem List Items Addressed This Visit Metastatic colon cancer to liver (CMS/HCC) Incisional hernia, without obstruction or gangrene Other Visit Diagnoses Personal history of nutritional deficiency - Primary Relevant Orders POCT Glycosylated Hemoglobin (Hgb A1C) (Completed) Patient is a 59 y.o. male presenting in consultation for an incisional hernia from Dr. Castillo with Surgical Oncology. Patient to undergo a combined hepatectomy with Dr. Castillo with Surgical Oncology due to metaststic colon cancer to the liver and incisional hernia repair done by Dr. March. At this time patient's incisional hernia is quite large and continues to progress, therefore a repair is indicated. Patient resides at a correction who manages his medical history and medications. He was advised that he will need support when discharged. We have discussed factors impacting hernia outcomes including weight, smoking, infection, and bloodsugar control. We have discussed that hernias may recur in the patient's lifetime as hernias may recur with chronic cough, intra-abdominal pressure, obesity or heavy lifting/strenuous activity. Risks, benefits and alternatives including non-operative management were discussed. Operative risksincluding bleeding, infection, mesh infection or complication requiring future mesh removal, intestinal injury, need for intestinal resection, hernia recurrence, seroma, as well as anesthetic-related complications including deep venous thrombosis, pulmonary embolism, pneumonia, renal failure and were discussed. We discussed the options of synthetic versus biologic mesh. Patient information regarding the limitations and restrictions in the post- operative period as wellas the pre-operative preparation were provided to the patient and reviewed. All of the patient's questions were answered and informed consent was obtained. Arrangements are being made to perform an open incisional hernia repair with possible Phasix mesh implantation in the near future. His chronic comorbid conditions that impact our treatment planning include: Metastatic Cancer Reina Benoit, MS3 [1] Past Medical History: Diagnosis Date Diabetes (CMS/HCC) High blood pressure [2] Past Surgical History: Procedure Laterality Date APPENDECTOMY FOOT SURGERY Left surgery dur to diabetes LEG SURGERY Right surgery dur to diabetes [3] Social History Tobacco Use Smoking status: Never Smokeless tobacco: Never Vaping Use Vaping status: Never Used Substance Use Topics Alcohol use: Never Drug use: Never [4] Family History Problem Relation Name Age of Onset Other (paternal aunt breast cancer) Other Anesthesia problems Neg Hx Malig Hyperthermia Neg Hx [5] Family History Problem Relation Name Age of Onset Other (paternal aunt breast cancer) Other Anesthesia problems Neg Hx Malig Hyperthermia Neg Hx [6] Current Outpatient Medications Medication Sig Dispense Refill carvedilol (Coreg) 12.5 MG tablet Take by mouth in the morning and in the evening. Take with meals. ferrous sulfate 325 (65 Fe) MG EC tablet insulin lispro (Admelog, HumaLOG) 100 UNIT/ML injection pen Inject 10 Units under the skin 3 (three) times a day with meals. Lantus SoloStar 100 UNIT/ML injection pen Inject 35 Units under the skin nightly. lisinopril 20 MG tablet loperamide (Imodium A-D) 2 MG tablet magnesium oxide (Mag-Ox) 400 MG tablet Multiple Vitamin (multivitamin) tablet Take 1 tablet by mouth daily. potassium chloride CR (Klor-Con M20) 20 MEQ ER tablet sodium bicarbonate 650 MG tablet spironolactone (Aldactone) 25 MG tablet Take 1 tablet by mouth daily. acetaminophen (Tylenol) 500 MG tablet Take 1 tablet by mouth every 6 hours as needed for pain. (Patient not taking: Reported on 12/24/2024) 50 tablet 0 amLODIPine (Norvasc) 5 MG tablet Take 1 tablet by mouth in the morning. (Patient not taking: Reported on 12/24/2024) capecitabine (Xeloda) 500 MG chemo tablet Take 3 tablets (1,500 mg total) by mouth 2 (two) times a day. Swallow whole with water. Do not crush or cut. (Patient not taking: Reported on 12/24/2024) lisinopril-hydroCHLOROthiazide 20-25 MG tablet Take 1 tablet by mouth daily. (Patient not taking: Reported on 12/24/2024) mupirocin (Bactroban) 2 % ointment Apply topically 2 times a day. 1 g 0 Nutritional Supplements (Impact Advanced Recovery) liquid Drink 1 178ml carton 2 per day X 5 days before surgery 2500 mL 0 ondansetron (Zofran) 4 MG tablet (Patient not taking: Reported on 12/24/2024) Quercetin 500 MG capsule Take 2 tablets by mouth daily. (Patient not taking: Reported on 12/24/2024) No current facility-administered medications for this visit. Cosigned by Heidi March MD at 12/29/2024 3:27 PM EDT Associated attestation - Heidi March MD - 12/29/2024 3:27 PM EDT I saw and evaluated the patient with the medical/CUT OUT OPERATOR/PA student. I discussed the case with the medical/CUT OUT OPERATOR/PA student and agree with the findings and plan as documented. I personally performed the Examand Medical Decision Making. Possible primary repair versus retrorectus Phasix to be determined at the time of operation. Significant skin resection required to allow for the patient is widened defect to be closed. Family aware that this is a cancer operation with fascial closure afterwards in the risk of hernia recurrence is still 20-30%. The patient will be going back to his correction postoperatively. documented in this encounter Plan of Treatment Upcoming Encounters Date Type Department Care Team (Late st Contact Info) Description 05/13/2025 7:30 AM EST Appointment [facility] [address] [place] [address] 05/13/2025 10:15 AM EST Office Visit [facility] [address] [place] [address] Farhad Castillo MD [address] [address] documented as of this encounter Goals Goal Patient Goal Type Associated Problems Recent Progress Patient-Stated? Author Autogenera inessa Goal Care Plan Autogenerated Problem No Farhad Castillo MD documented as of this encounter Procedures Procedure Name Priority Date/Time Associated Diagnosis Comments POCT GLYCOSYLATED HEMOGLOBIN (HGB A1C) Routine 12/24/2024 10:39 AM EDT Personal history of nutritional deficiency documented in this encounter Results * POCT Glycosylated Hemoglobin (Hgb A1C) (12/24/2024 10:39 AM EDT) POCT Hemoglobin A1C 6.7 <5.7% Non-Diabet ic % [facility] Kit Lot Number [id number] [facility] Kit Expiration Date 10/12/26 [facility] Blood Venous blood specimen / Unknown 12/24/2024 10:39 AM EDT Heidi March MD POINT OF CARE TEST ENTER/KINGSLEY T ORDERABLES Final Result [facility] [address] [place] [address] documented in this encounter Visit Diagnoses Diagnosis Personal history of nutritional deficiency- Primary Incisional hernia, without obstruction or gangrene Metastatic colon cancer to liver documented in this encounter Additional Health Concerns Active Problems Noted Date Diagnosed Date Autogenerated Problem 12/24/2024 Assessment Noted Time A fall risk assessment has been complete d for the patient 12/24/2024 8:48 AM EDT A Body Mass Index follow-up plan has been documented for the patient 12/29/2024 3:27 PM EDT documented as of this encounter Care Teams Quotation Clerk Relationship Specialty Start Date End Date Tayo Jones MD [address] [place] [address] PCP - General 07/14/24 documented as of this encounter
--- OUTSIDE RECORDS SUMMARY | 2024-12-29 12:45 | XMS_ITS | Encounter Summary ---
Author Organization [facility] Address [address] [place] [address] Care Team Providers Care Porter Head Name Role Phone Tayo Jones MD Primary Care Provider [phone] Encounter Details Date Type Department Care Team (Late st Contact Info) Description 12/29/2024 1:45 PM EDT Pre-Admission Testing [facility] [address], [address] [place] [address] Anesthesia Record Procedure Summary Procedure Name Responsible Anesthesiologist Anesthesia Start Time Anesthesia Stop Time HEPATECTOMY, PARTIAL, microwave ablation, cholecystectomy Andres Rojas, FLIGHT SUPERINTENDENT 01/06/25 1102 01/06/25 1606 Events Date Time Event Comment 01/06/2025 0840 1102 In Room 1102 An Start The patient was reevaluated immediately before sedation and remains eligible for anesthesia plan. 1102 An Start Data 1109 An Induction The patient was reevaluated immediately before moderate or deep sedation use and before anesthesia induction. 1113 An Intubation 1128 Anesthesia Ready 1144 Proc Start 1542 Proc Fin 1555 An Extubation 1555 an stop data 1558 Out of Room 1606 Fidel Dilaudid COLLAR WORKER ca rtridge given to sammie Salas RN by pharmacy. Dilaudid COLLAR WORKER cartridge handed off to TRIMMER LOADER Judith Murphy. 1606 Handoff to Receiving I compl eted my handoff to the receiving clinician during which we: 1. Identified the patient 2. Identified the responsible provider 3. Reviewed the pertinent medical history 4. Discussed the surgical course 5. Reviewed intra-op anesthesia management and issues during anesthesia 6. Set expectations for post-procedure period 7. Allowed opportunity for questions and acknowledgement of understanding. 1606 An Stop Meds * Agents No agents on file. * Blood No blood administrations on file. Lines, Drains, and Airways Type Details Placement Removal Wound 07/31/24; 0811; N; Y es; Surgical; Open Surg; Abdomen; Left, Upper 07/31/24 0811 by Nayan Patel RN Wound 01/06/25; 1156; N; Y es; Surgical; Open Surg; Abdomen; Mid 01/06/25 1156 by Flaquita Salas RN Peripheral IV Placement Date: 01/06/25; Placement Time: 0945; Catheter Size: 18 G; Orientation: Left, Posterior; Location: Hand; Site Prep: Alcohol, Chlorhexidine ; Local Anesth: [place]; Technique: Anatomical landmarks; Inserted by: doc mann; Insertion Attempts: 1; Patient Tolerance: Tolerated well; Removal Date: 01/11/25; Removal Time: 0500; Removal Reason: Leaking 01/06/25 0945 by Maira Carney RN 01/11/25 0500 by Valerie Cheung RN Epidural Placement Date: 01/06/25; Placement Time: 1008 (created via procedure documentation); Patient Tolerance: Tolerated well; Removal Date: 01/11/25; Removal Time: 1235 01/06/25 1008 by Iban Emery MD 01/11/25 1235 by Shanell Bravo RN ETT Placement Date: 01/06/25; Placement Time: 1113 (created via procedure documentation); Mask Ventilation: 2; Technique: Video laryngoscopy; Type: ETT - single; Cuffed: Yes; Location: Oral; Grade View: Grade I; Insertion Attempts: 1; Placement Verification: Auscultation, Capnometry; Airway Comments: IV induction, easy mask with oral airway and two hand mask technique. DL with hyper 4 AMBU, grade 1 view, easy intubation. Atraumatic. No change to dentition. ; Placed by: Other (Comment); Removal Date: 01/06/25; Removal Time: 1555 01/06/25 1113 by Andres Rojas CRNA 01/06/25 1555 by Andres Rojas CRNA Peripheral IV Placement Date: 01/06/25; Placement Time: 1115 (created via procedure documentation); Catheter Size: 16 G; Orientation: Right; Location: Wrist; Insertion Attempts: 1; Removal Date: 01/09/25; Removal Time: 0604; Removal Reason: Infiltrated 01/06/25 1115 by Andres Rojas, FLIGHT SUPERINTENDENT 01/09/25 0604 by Marisela Avelar RN Peripheral IV Placement Date: 01/06/25; Placement Time: 1115 (created via procedure documentation); Catheter Size: 18 G; Orientation: Left; Location: Hand; Insertion Attempts: 1; Removal Date: 01/09/25; Removal Time: 0603; Removal Reason: Leaking 01/06/25 1115 by Andres Rojas, FLIGHT SUPERINTENDENT 01/09/25 0603 by Marisela Avelar RN Urethral Catheter Placement Date: 01/06/25; Placement Time: 1121; Inserted by: Edmar Salas RN; Type: Temperature probe, Non-latex; Size: 16 Fr.; Balloon Size: 10 mL; Urine Returned: Yes; Removal Date: 01/08/25; Removal Time: 1041; Removal Reason: Per order 01/06/25 1121 by Flaquita Salas RN 01/08/25 1041 by Nancy Hughes RN Arterial Line Placement Date: 01/06/25; Placement Time: 1124 (created via procedure documentation); Size: 20 G; Orientation: Right; Location: Radial; Inserted by: Anesthesiologist; Securement: Taped; Removal Date: 01/06/25; Removal Time: 175; Removal Reason: Per protocol 01/06/25 1124 by Kathe Peralta MD 01/06/25 1752 by Guy Scott RN Closed/Suction Drain 01/06/25; 1456; No; Yes; LUQ; Bulb; 19 Fr. 01/06/25 1456 by Flaquita Salas RN 01/12/25 0000 by Katelynn Lowery RN documented in this encounter Social History [...] any time in the past 12 m [facility], were you homeless or living in a residential (including now)? No 10/09/2024 Utilities Answer Date [...] Sign Reading Time Taken Comments Blood Pressure - - Pulse - - Temperature - - Respiratory Rate - - Oxygen Saturation - - Inhaled Oxygen Concentration - - Weight 110 kg (243 lb) 12/29/2024 2:13 PM EDT Height - - Body Mass Index 35.63 12/24/2024 10:17 AM EDT documented in this encounter Miscellaneous Notes * PAT Evaluation Note - Eva Fragoso APRN - 12/29/2024 1:45 PM EDT Images from the original note were not included. HPI Nayan Womack is a 59 y.o. male who presents with Pre-op Diagnosis * Metastatic colon cancer to liver (CMS/HCC) [C18.9, C78.7] now scheduled for HEPATECTOMY, PARTIAL (N/A), REPAIR, HERNIA, EPIGASTRIC (N/A) with Farhad Castillo MD and Dr. [place] [facility] [place] Past Medical History[1] Family History[2] Social History[3] SURGICAL HISTORY: Surgical History[4] Allergies[5] MEDICATIONS: Current Medications[6] ROS Anesthesia: Date of last anesthetic: 07/2024 Airway not difficult Successful airway: ETT Cuffed: yes Successful intubation [...] attempt, grade 2a view with lopro 4. history of previous anesthesia. Does not have a history of anesthetic complications and obstructivesleep apnea. Cardiovascular: hyperlipidemia and PVD. Does not have atrial fibrillation, CAD, CHF, dyspnea, dysrhythmias, pacemaker or past [place]. hypertension: is well controlled. Exercise tolerance is 1 flight of stairs. Does not have chest pain. Cardio additional comments: Stress test 12/2024 Normal . Respiratory: Does not have home oxygen. Patient [...] calf abscess s/p I&D, washout and closure Lt lateral foot by 5th toe ulcer very small per nurse, getting betadine Gastrointestinal: Does not have GERD.GI malignancy (metastatic colon cancer 10/2022 s/p right hemicolectomy/chemo c/b incisional hernia with mets to liver s/p chemo). Does not have cirrhosis. obese. Genitourinary: Does not have chronic renal disease. Hematological/Lymphatic: anemia (FRANSISCO). no hemophilia.History of no DVT. History of no pulmonary embolism. Not in a hypercoagulable state. history of chemotherapy (a few months ago) without cardiopulmonary complications. Doesnot have HIV, MRSA or tuberculosis. Hem/Lymph ROS additional comments: Has a port placed 07/2024, functioning well Endocrine/Metabolic: diabetes mellitus type 2.well controlled. AM glucose 210, last A1c 6.7 Does not have thyroid disorder. Lab Results Component Value Date WBC 8.85 12/24/2024 HGB 12.8 (L) 12/24/2024 HCT 39.4 (L) 12/24/2024 MCV 92 12/24/2024 PLT 279 12/24/2024 Lab Results Component Value Date GLUCOSE 194 (H) 12/24/2024 BUN 12 12/24/2024 CREATININE 0.89 12/24/2024 BCR 13 12/24/2024 NA 139 12/24/2024 K 4.8 12/24/2024 CL 104 12/24/2024 CO2 21 (L) 12/24/2024 ALBUMIN 3.6 12/24/2024 ALKPHOS 78 12/24/2024 BILITOT 0.4 12/24/2024 Lab Results Component Value Date HGBA1C 6.7 12/24/2024 Lab Results Component Value Date INR 1.1 12/24/2024 INR 1.2 (H) 10/08/2024 INR 1.1 07/23/2024 Visit Vitals Wt 110 kg (243 lb) BMI 35.63 kg/m?? Smoking Status Never BSA 2.32 m?? 12/29/2024 2:13 PM Vitals Weight (kg) 110.224 kg BMI 35.63 kg/m2 BSA (m2) 2.32 m2 Physical Exam Anesthesia Plan ASA 3 Anesthesia technique(s) discussed with the patient/family: general Comment: RAYO phone screen with [facility] Keya[facility] Eva Henning APRN [1] Past Medical History: [...] dur to diabetes [5] No Known Allergies [6] Current Outpatient Medications: carvedilol, Take by mouth in the morning and in the evening. Take with meals. ferrous sulfate, insulin lispro, Inject 10 Units under the skin 3 times a day with meals. Lantus SoloStar, Inject 35 Units under the skin nightly. lisinopril, Take 1 tablet by mouth daily. loperamide, Take by mouth 3 times a day as needed. magnesium oxide, Take 1 tablet by mouth 2 times a day. multivitamin, Take 1 tablet by mouth daily. potassium chloride CR, Take 1 tablet by mouth 2 times a day. sodium bicarbonate, Take 1 tablet by mouth 2 times a day. spironolactone, Take 1 tablet by mouth daily. acetaminophen, Take 1 tablet by mouth every 6 hours as needed for pain. (Patient not taking: Reported on 12/24/2024) amLODIPine, Take 1 tablet by mouth in the morning. (Patient not taking: Reported on 12/24/2024) capecitabine, Take 3 tablets (1,500 mg total) by mouth 2 (two) times a day. Swallow whole with water. Do not crush or cut. (Patient not taking: Reported on 12/24/2024) lisinopril-hydroCHLOROthiazide, Take 1 tablet by mouth daily. (Patient not taking: Reported on 12/24/2024) mupirocin, Apply topically 2 times a day. Impact Advanced Recovery, Drink 1 178ml carton 2 per day X 5 days before surgery ondansetron, Quercetin, Take 2 tablets by mouth daily. (Patient not taking: Reported on 12/24/2024) * Preprocedure Instructions - Eva Fragoso APRN - 12/29/2024 1:45 PM EDT Home Medication Instructions Current Medications Medication Instructions carvedilol (Coreg) 12.5 MG tablet Take morning of surgery ferrous sulfate 325 (65 Fe) MG EC tablet Hold day of surgery insulin lispro (Admelog, HumaLOG) 100 UNIT/ML injection pen Hold day of surgery Lantus SoloStar 100 UNIT/ML injection pen Take 1/2 usual dose of your insulin night before surgery lisinopril 20 MG tablet Hold day of surgery loperamide (Imodium A-D) 2 MG tablet Take as needed magnesium oxide (Mag-Ox) 400 MG tablet Hold day of surgery Multiple Vitamin (multivitamin) tablet Hold day of surgery potassium chloride CR (Klor-Con M20) 20 MEQ ER tablet Hold day of surgery sodium bicarbonate 650 MG tablet Hold day of surgery spironolactone (Aldactone) 25 MG tablet Hold [...] to 2 hours prior to arrival. No red or purple. No coffee or tea. No alcohol or smoking prior to surgery Arrive on time to avoid delays Parking/Registration procedure explained You MUST have a responsible adult available for transport to and from hospital Visitation policy for the day of surgery reviewed Bring insurance card, photo ID, along with power of research attorney, guardianship or advanced directives if applicable [...] EST Appointment [facility] [address] [place] [address] 05/13/2025 10:15 AM EST Office Visit [facility] [address] [place] [phone] Farahd Castillo MD [address] [address] documented as of this encounter Goals Goal Patient Goal Type Associated Problems Recent Progress Patient-Stated? Author Autogenera inessa Goal Care Plan Autogenerated Problem No Farhad Castillo MD documented as of this encounter Visit Diagnoses Not on filedocumented in this encounter Additional Health Concerns Active Problems Noted Date Diagnosed Date Autogenerated Problem 12/24/2024 Assessment Noted Time A fall risk assessment has been complete d for the patient 12/24/2024 8:48 AM EDT A Body Mass Index follow-up plan has been documented for the patient 12/29/2024 3:27 PM EDT documented as of this encounter Care Teams Porter Head Relationship Specialty Start Date End Date Tayo Jones MD [address] [place] [address] PCP - General 07/14/24 documented as of this encounter
--- OUTSIDE RECORDS SUMMARY | 2025-01-06 08:09 | XMS_ITS | Encounter Summary ---
Author Organization [facility] Address [address] [id number] Care Team Providers Care Relief Map Modeler Name Role Phone Tayo Jones MD Primary Care Provider [phone] Reason for Visit * Auth/Cert (Routine) Specialty Diagnoses / Procedures Referred By Samia pagan Referred To Contact Diagnoses Metastatic colon cancer to liver Metastatic colon cancer to liver (CMS/HCC) [C18.9, C78.7] Procedures GA RESEC LIVER,PART LOBECTOMY GA RPR AA HERNIA 1ST 3-10 CM REDUCIBLE HEPATECTOMY, PARTIAL REPAIR, HERNIA, EPIGASTRIC Farhad Castillo MD [address] [address] Phone: tel: fax: PAV A OPERATING ROOM [address] [place] [address] Phone: tel: Referral ID Status Reason Start Date Expiration Date Visits Re quested Visits Authorized [id number] 1 1 Encounter Details Date Type Department Care Team (Latest Contact Info) Description 01/06/2025 9:09 AM EDT - 01/13/2025 9:50 AM EDT Hospital Encounter PAV A Inpatient [facility] [address] [place] [phone] Farhad Castillo MD [address] [phone] Metastatic colon cancer to liver (CMS/HCC) Discharge Disposition: Long-Term Facility Social History Tobacco [...] afraid of your partner or ex-partner? No 01/07/2025 Within the last year, have y ou been humiliated or emotionally abused in other ways by your partner or ex-partner? No Within the last year, have y ou been kicked, hit, slapped, or otherwise physically hurt by your partner or ex-partner? No 01/07/2025 Within the last year, have y ou been raped or forced to have any kind of sexual activity by your partner or ex-partner? No 01/07/2025 AUDIT-C Answer Date Recorded Q1: How often [...] the money to buy more. Never true 01/08/20 Within the past 12 months, t he food you bought just didn't last and you didn't have money to get more. Never true 01/07/2025 PRAPARE - Transportation Answer Date Re corded In the past 12 months, has l ack of transportation kept you from medical appointments or from getting medications? No 12/15 In the past 12 months, has l ack of transportation kept you from meetings, work, or from getting things needed for daily living? No 01/07/2025 Housing Stability Vital Sign Answer Marciano e Recorded In the last 12 months, was t here a time when you were not able to pay the mortgage or rent on time? No 01/07/2025 In the past 12 months, how m any times have you moved where you were living? 0 01/07/2025 At any time in the past 12 m [facility], were you homeless or living in a senior living (including now)? No 01/07/2025 [facility] Utilities Answer Date Recorded In the past 12 months has th [employer], gas, oil, or water company threatened to shut off services in your home? No 01/07/2025 CAGE ASSESSMENT Answer Date Recorded Cage unable to access Not on file 01/12/2025 Cage max number of drinks Not on file 2024 Cage Beverages a week Not on file 01/12/2025 Have you ever felt you should CUT down on your d rinking? 0 01/12/2025 Have you been ANNOYED by people criticizing your drinking? 0 01/12/2025 Have you felt GUILTY about your drinking? 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 0 01/12/2025 CAGE Questionnaire Score 0 025 Sex and Gender Information Value Date Recorded Sex Assigned at Male 07/31/2024 7:25 AM EDT Legal Sex Male 12:34 PM EDT Gender Identity Male 07/31/2024 7:25 AM EDT Sexual Orientation Not on file documented as of this encounter Last Filed Vital Signs Vital Sign Reading Time Taken Comments Blood Pressure 129/71 01/13/2025 7:00 AM EDT Pulse 57 01/13/2025 7:00 AM EDT Temperature 36.9 C (98.4 F) 01/13/2025 7:00 AM EDT Respiratory Rate 18 01/13/2025 7:00 AM EDT Oxygen Saturation 97% 01/13/2025 7:00 AM EDT Inhaled Oxygen Concentration - - Weight 122 kg (268 lb 15.4 oz) 01/11/2025 3:48 A M EDT Height 180.3 cm (5' 11 ) 01/06/2025 9:21 AM EDT Body Mass Index 37.51 01/06/2025 9:21 AM EDT documented in this encounter Functional [...] all 12/24/2024 8:48 AM EDT Chio Mckeon * Calculated C-SSRS Risk Score (Lifetime/Recent) Answer Date of Assessment Author No Risk Indicated 01/13/2025 8:21 AM EDT Katelynn Lowery RN * Question Answer Date of Assessment Author 1. Wish to be (Past 1 Month) No 025 8:21 AM EDT Katelynn Lowery RN 2. Non-Specific Active Suici sol Thoughts (Past 1 Month) No 01/13/2025 8:21 AM EDT Ashley Lowery RN 6. Suicidal Behavior (Lifetime) No 8:21 AM EDT Katelynn Lowery RN documented as of this encounter Discharge Instructions * Discharge Instructions* Paulo Jay, TEXTILE MACHINERY SALES REPRESENTATIVE - 01/13/2025 7:56 AM EDT Post-Operative Discharge Instructions: Medications: - Insulin [CHANGE]: Your insulin regimen has changed and has required less after the surgery. You will be discharged with 12 units Glargine nightly, Lispro 3 unit TID with resistant sliding scale. - Lisinopril [CHANGE]: You were taking 20mg daily of lisinopril. You did not need lisinopril duringthis hospitalization and can restart at 10mg daily for now and can increase as appropriate. - Pain medication: You will be discharged with flexeril for as needed daily pain management. You will also be prescribed oxycodone for as needed breakthrough severe pain. - Lovenox: You will be on lovenox for 28 days from the surgery date (01/06/2025) and will end on 02/03/25. - You may resume your previous medications unless otherwise instructed. Nutrition: - You should consume a regular diet as tolerated, focusing on liquids to keep yourself hydrated. Please refer to diet education for more instructions on what you can or cannot eat. Activity: - Walking and climbing stairs is ok and encouraged. You should refrain from any strenuous activity/exercise until your follow up appointment. - No lifting anything more than 10 pounds for the next 6 weeks - You may not drive for 48 hours after surgery, or while taking narcotics Dressing: - A special skin glue is used to close and cover your incision. Do not pick it off, it will fall ofon its own after approximately 2 weeks. The glue is waterproof but you should not soak your incision or take a tub bath for 2 weeks. - You should try to keep your incisions as clean and dry as possible - You may shower. Let the soapy water run over your incisions. Do not scrub at your incisions. After you shower, pat your incisions dry with a clean towel. - Do NOT soak your incisions, or take a tub bath for 2 weeks. Potential Issues: - It is normal to [...] if you have a fever greater than 101 F - Call the office if you have severe abdominal discomfort, nausea and vomiting, or feeling unwell - Call the [facility] with any questions or concerns during regular business hours (9am-5pm Saturday through Saturday except holidays). The number is . - If outside regular business hours, please call the after hours number at . Follow Up: - You will follow-up with Julia Dotson APRN in clinic in 2 weeks and then [address] Castillo. documented in this encounter Medications at Time of Discharge carvedilol (Coreg) 12.5 MG tablet Take by mouth in the morning and in the evening. Take with meals. 07/30/2023 cyclobenzaprine (Flexeril) 5 MG tablet Take 1 tablet by mouth 3 times a day. 01/13/2025 ferrous sulfate 325 (65 Fe) MG EC tablet 08/12/2023 insulin lispro (Admelog, HumaLOG) 100 UNIT/ML injection pen Inject 3 Units under the skin 3 times a day with meals. 01/13/2025 Lantus SoloStar 100 UNIT/ML injection pen Inject 12 Units under the skin nightly. 01/13/2025 lisinopril 20 MG tablet Take 0.5 tablets by mouth daily. 01/13/2025 loperamide (Imodium A-D) 2 MG tablet Take by mouth 3 times a day as needed. 04/19/2024 magnesium oxide (Mag-Ox) 400 MG tablet Take 1 tablet by mouth 2 times a day. 11/07/2024 Multiple Vitamin (multivitamin) tablet Take 1 tablet by mouth daily. naloxone (Narcan) 4 mg/0.1 mL nasal spray 1. Give 1 spray in nostril for no/slow breathing or cannot wake after opioid use 2. Call 911 3. Repeat in other nostril if symptoms continue 1 each 01/13/2025 pantoprazole (Protonix) 40 MG EC tablet Take 1 tablet by mouth daily. Do not crush, chew, or split. 01/13/2025 potassium chloride CR (Klor-Con M20) 20 MEQ ER tablet Take 1 tablet by mouth 2 times a day. 11/09/2024 Quercetin 500 MG capsule Take 2 tablets by mouth daily. sodium bicarbonate 650 MG tablet Take 1 tablet by mouth 2 times a day. 11/09/2024 spironolactone (Aldactone) 25 MG tablet Take 1 tablet by mouth daily. 07/11/2024 mupirocin (Bactroban) 2 % ointment Apply topically 2 times a day. 1 g 12/24/2024 Nutritional Supplements (Impact Advanced Recovery) liquid Drink 1 178ml carton 2 per day X 5 days before surgery 2500 mL 12/24/2024 ondansetron (Zofran) 4 MG tablet 04/19/2024 enoxaparin (Lovenox) 40 MG/0.4ML solution prefilled syringe Inject 0.4 mL under the skin daily for 21 days. 01/13/2025 oxyCODONE (Roxicodone) 5 MG immediate release tablet Take 1 tablet by mouth every 4 hours as needed for moderate pain for up to 3 days. 18 tablet 01/13/2025 documented as of this encounter Miscellaneous Notes * Query Clarification Note - Farhad Castillo MD - 01/13/2025 9:50 AM EDT Physician Clarification Please review the following and provide your response below. []-Acute blood loss anemia []-Acute on Chronic anemia [x]-Dilutional Anemia []-Other (please specify) This documentation will become part of the patient's medical record. * Progress Notes - Elle Andre - 01/13/2025 9:50 AM EDT Case Management Discharge Note Faith Snyder 59 y.o. male CSN: [id number] Admission: 01/06/2025 9:09 AM Primary Problem: Metastatic colon cancer to liver Primary Leather Whitener: Primary Caregiver: Other (Comment) (staff) Assistance Available at Discharge: Availability of Care Givers (#Hours): 24 hours Family/Leather Whitener(s) Willingness Assessed to care for patient at home: Yes Family/Leather Whitener(s) Readiness Assessed to care for patient at home: Yes Housing Circumstances-Z Codes: Housing Circumstances (select all that apply): None Applicable Discharge Facility/Level of Care Needs: Discharge Facility/Level of Care Needs: 63-Cut Plug Packer care DME/Equipment Needed after Discharge: Equipment Currently Used at Home: cane, straight Readmission Within the Last 30 Days: Readmission Within the Last 30 Days: no previous admission in last 30 days Medicare Documentation: Medicare Second Notice?: No [facility] [phone] [facility] phone [phone] centerpuncher resident Follow up Discharge Transportation: Transportation Home at Discharge: Medical Transport ([facility]) Has discharge transport been arranged?: Yes What day is the transport expected?: 01/13/25 What time is the transport expected?: 1000 Follow Up Transport: Transportation Needed to Follow up Appoinments: Medical Transport Additional Comments: Pt is MR to DC this date. Pt will DC via [facility] at 1000 this date back to [facility] where pt resides for LTC. Pt meets FPG 300%. SW faxed the DC summary and provided the information below to 1st call provider and bedside RN. Pharmacy for controlled meds: [facility] NFR: [phone] ext [phone] Fax the DC summary: [phone] Elle Andre, QUARTER FOLDER, REINFORCED CONCRETE INSPECTOR Social Work Senior Department of Case Management [facility] * Care Plan - Katelynn Lowery RN - 01/13/2025 9:40 AM EDT Problem: Adult Inpatient Plan of Care Goal: Plan of Care Review Outcome: Ongoing, Progressing Flowsheets (Taken 01/13/2025 06 by Tereza Pham, RN) Progress: improving Outcome Evaluation: pt deneis any pain throughout shift, ambulatory to bathroom. bs stable Plan of Care Reviewed With: patient Goal: Absence of Hospital-Acquired Illness or Injury Outcome: Ongoing, Progressing Intervention: Identify and Manage Fall Risk Flowsheets (Taken 01/13/2025 0600 by Tereza Pham, RN) Safety Promotion/Fall Prevention: activity supervised Intervention: Prevent Skin Injury Flowsheets Taken 01/13/2025 0821 by Katelynn Lowery RN Body Position: weight shifting Taken 01/13/202530 by Tereza Pham, RN Skin Protection: incontinence pads utilized protective footwear used pulse oximeter probe site changed transparent dressing maintained Intervention: Prevent and Manage VTE (Venous Thromboembolism) Risk Flowsheets (Taken 01/13/2025 0000 by Tereza Pham, RN) VTE Prevention/Management: medication Intervention: Prevent Infection Flowsheets (Taken 01/13/2025 0630 by Tereza Pham, RN) Infection Prevention: hand hygiene promoted personal protective equipment utilized rest/sleep promoted Goal: Optimal Comfort and Wellbeing Outcome: Ongoing, Progressing Intervention: Monitor Pain and Promote Comfort Flowsheets (Taken 01/12/20251999 by Tereza Pham, RN) Pain Management Interventions: emotional support pillow support provided position adjusted rest relaxation techniques promoted quiet environment facilitated Intervention: Provide Person-Centered Care Flowsheets (Taken 01/13/2025629 by Tereza Pham, RN) Trust Relationship/Rapport: care explained choices provided emotional support provided empathic listening provided questions answered questions encouraged reassurance provided thoughts/feelings acknowledged Problem: Skin Injury Risk Increased Goal: Skin Health and Integrity Outcome: Ongoing, Progressing Intervention: Optimize Skin Protection Flowsheets Taken 01/13/2025820 by Katelynn Lowery RN Activity Management: activity adjusted per tolerance ambulated in street back to bed Taken 01/13/2025629 by Tereza Pham RN Pressure Reduction Techniques: frequent weight shift encouraged heels elevated off bed rest period provided between sit times Pressure Reduction Devices: positioning supports utilized Skin Protection: incontinence pads utilized protective footwear used pulse oximeter probe site changed transparent dressing maintained Taken 01/13/2025599 by Tereza Pham RN Head of Bed (HOB) Positioning: HOB elevated Intervention: Promote and Optimize Oral Intake Flowsheets (Taken 01/13/2025629 by Tereza Pham, JAN) Oral Nutrition Promotion: rest periods promoted Nutrition Interventions: diet advanced Problem: Infection Goal: Absence of Infection Signs and Symptoms Outcome: Ongoing, Progressing Intervention: Prevent or Manage Infection Flowsheets Taken 01/13/2025820 by Katelynn Lowery RN Isolation Precautions: precautions maintained Taken 01/13/2025629 by Tereza Pham RN Infection Management: aseptic technique maintained Fever Reduction/Comfort Measures: fluid intake increased lightweight bedding lightweight clothing Problem: Fall Injury Risk Goal: Absence of Fall and Fall-Related Injury Outcome: Ongoing, Progressing Intervention: Identify and Manage Contributors Flowsheets (Taken 01/13/2025629 by Tereza Pham, JAN) Medication Review/Management: medications reviewed Self-Care Promotion: independence encouraged Intervention: Promote Injury-Free Environment Flowsheets (Taken 01/13/2025599 by Tereza Pham RN) Safety Promotion/Fall Prevention: activity supervised * Nursing Note - Bhakti Cooley RN - 01/13/2025 8:40 AM EDT AVS discharge instructions printed and reviewed with patient: s/s of infection, how to reach doctors, follow up, discharge diet, discharge activity, showering, home medications continued, new medications. Educational attachments given on controlled medications and lovenox injection. Bedside RN Katelynn to call report back to [facility]. Belongings packed. [facility] to transport patient back. * [facility] - Bhakti Cooley RN - 01/13/2025 8:03 AM EDT Images from the original note were not included. [id number] Cyclobenzaprine WHY is this medicine prescribed? Cyclobenzaprine is used with rest, physical therapy, and other measures to relax muscles and relieve pain and discomfort caused by strains, sprains, and other muscle injuries. Cyclobenzaprine is in aclass of medications called skeletal muscle relaxants. It works by acting in the brain and nervous system to allow the muscles to relax. HOW should this medicine be used? Cyclobenzaprine comes as a tablet and an extended-release capsule to take by mouth. The tablet is usually taken with or without food three times a day. The extended-release capsule is usually taken with or without food once a day. Do not take this drug for more than 3 weeks without talking to your doctor. Follow the directions on your prescription label carefully, and ask your doctor or pharmacist to explain any part you do not understand. Take cyclobenzaprine exactly as directed. Do not take more or less of it or take it more often than prescribed by your doctor. Swallow the extended-release capsules whole; do not chew or crush them. If you are not able to swallow the extended-release capsule whole, mix the contents of the capsule with applesauce. Eat the mixture right away and swallow without chewing. After you eat the mixture, take a drink, and swish and swallow to make sure that you have received all the medication. Are there OTHER USES for this medicine? This medication is sometimes prescribed for other uses; ask your doctor or pharmacist for more information. What SPECIAL PRECAUTIONS should I follow? Before taking cyclobenzaprine, ? tell your doctor and pharmacist if you are allergic to cyclobenzaprine, any other medications, orany of the ingredients in cyclobenzaprine tablets or capsules. Ask your pharmacist for a list of the ingredients. ? tell your doctor or pharmacist if you are taking the following medications or have stopped takingthem within the past two weeks: monoamine oxidase (MAO) inhibitors, including isocarboxazid (Marplan), phenelzine (Nardil), rasagiline (Azilect), selegiline (Eldepryl, Emsam, Zelapar), and tranylcypromine (Parnate). ? some medications should not be taken with cyclobenzaprine. Other medications may cause dosing changes or extra monitoring when taken with cyclobenzaprine. Make sure you have discussed any medications you are currently taking or plan to take before starting cyclobenzaprine with your doctor and pharmacist. Before starting, stopping, or changing any medications while taking cyclobenzaprine, pleaseget the advice of your doctor or pharmacist. ? tell your doctor if you are recovering from a recent heart attack, or if you have an overactive thyroid gland. heart failure (condition in which the heart is unable to pump enough blood to the other parts of the body), or an irregular heartbeat, heart block, or other problems with the electrical impulses of your heart. Your doctor will probably tell you not to take cyclobenzaprine. ? tell your doctor if you have increased pressure in the eye or glaucoma, difficulty urinating, or liver disease. ? tell your doctor if you are , plan to become , or are . If you become while taking cyclobenzaprine, call your doctor immediately. ? talk to your doctor about the risks and benefits of taking cyclobenzaprine if you are 65 years ofage or older. Older adults should not usually take cyclobenzaprine because it is not as safe or effective as other medications that can be used to treat the same condition. ? you should know that this drug may make you drowsy. Do not drive a car or operate machinery untilyou know how cyclobenzaprine affects you. ? ask your doctor about the safe use of alcoholic beverages while you are taking cyclobenzaprine. Cyclobenzaprine can make the effects of alcohol worse. What should I do IF I FORGET to take a dose? Take the missed dose as soon as you remember it. However, if it is almost time for the next dose, skip the missed dose and continue your regular dosing schedule. Do not take a double dose to make up for the missed one. What SIDE EFFECTS can this medicine cause? If you experience any of the following symptoms, call your doctor immediately: ? skin rash ? hives ? swelling of the face or tongue ? difficulty breathing or swallowing ? irregular or fast heart rate ? chest pain If you experience a serious side effect, you or your doctor may send a report to the Food and Drug Administration's (FDA) MedWatch Adverse Event Reporting program online (https://www.fda.gov/Safety/MedWatch) or by phone ( ). What should I know about STORAGE and DISPOSAL of this medication? Keep this medication in the container it came in, tightly closed, and out of reach of children. Store it at room temperature and away from excess heat and moisture (not in the bathroom). Store the extended-release capsule away from light. Dispose of unneeded medications in a way so that pets, children, and other people cannot take them.Do not flush this medication down the toilet. Use a medicine take-back program. Talk to your pharmacist about take-back programs in your community. Visit the FDA's Safe Disposal of Medicines website h ttps://goo.gl/c4Rm4p for more information. Keep all medication out of sight and reach of children as many containers are not child-resistant. Always lock safety caps. Place the medication in a safe location - one that is up and away and out of their sight and reach. https://www.upandaway.org What should I do in case of OVERDOSE? In case of overdose, call the poison control helpline at . Information is also available online at https://www.poisonhelp.org/help. If the victim has collapsed, had a seizure, has trouble breathing, or can't be awakened, immediately call emergency services at 911. Symptoms of overdose may include the following: ? drowsiness ? fast or irregular heartbeat ? feeling agitated ? confusion ? trouble speaking or moving ? dizziness ? nausea ? vomiting ? hallucination (seeing things or hearing voices that do not exist) ? tremor ? loss of consciousness What OTHER INFORMATION should I know? Keep all appointments with your doctor. Do not let anyone else take your medication. Ask your pharmacist any questions you have about refilling your prescription. Keep a written list of all of the prescription and nonprescription (wxha-cdx-yjoaces) medicines, vitamins, minerals, and dietary supplements you are taking. Bring this list with you each time you visit a doctor or if you are admitted to the hospital. You should carry the list with you in case of aury rgencies. Brand Name(s): ? Amrix?? ? Flexeril? also available generically ?? This branded product is no longer on the market. Generic alternatives may be available. This report on medications is for your information only, and is not considered individual patient advice. Because of the changing nature of drug information, please consult your physician or pharmacist about specific clinical use. The [employer] represents that the information provided hereunder was formulated with a reasonable standard of care, and in conformity with professional standards in the field. The [employer] makes no representations or warranties, express or implied, including, but not limited to, any implied warranty of merchantability and/or fitness for a particular purpose, with respect to such information and specifically disclaims all such warranties. Users are advised that decisions regarding drug therapy are complex medical decisions requiring the independent, informed decision of an appropriate health adult day care worker, and the information is provided for informational purposes only. The entire monograph for a drug should be reviewed for a thorough understanding of the drug's actions, uses and side effects. The [employer] does not endorse or recommend the use of any drug.The information is not a substitute for medical care. AHFS?? Patient Medication Information?. ?? Copyright, 2023. The [employer]??, [address], [address], [place], [place]. All Rights Reserved. Duplication for commercial use must be authorized by [facility]. Selected Revisions: May 30, 2016. AHFS?? Patient Medication Information?. ?? Copyright, 2024 * Bhakti Nolen RN - 01/13/2025 8:02 AM EDT 1087 Oxycodone Oral Tablet, Immediate Release Brand Names: Oxaydo, Roxicodone What is this medicine? Oxycodone (gx-u-DER-done) is an opioid pain reliever. It is used to treat moderate to severe pain. What should I tell my health care provider before I take this medicine? They need to know if you have any of these conditions: ? Vic's disease ? Brain tumor or head injury ? Personal or family history of drug abuse or addiction ? Heart disease ? Frequent alcohol use ? Kidney disease ? Liver disease ? Lung disease, asthma, or breathing problems ? Depression, anxiety, or other psychiatric disease ? Allergy or unusual reaction to oxycodone, acetaminophen or other pain relievers ? , trying to get , or How should I use this medicine? Take this medicine as prescribed by your doctor, and follow the directions on the prescription label. ? Take this medicine as prescribed by your doctor. Follow the directions on the prescription label. ? Do not take this medicine more often than directed. ? This medicine should be taken with a full glass of water. ? If it upsets your stomach, you may take it with food. You do not have to take this medicine with food. ? Do not crush, cut, chew, lick, wet, soak, or otherwise manipulate a tablet before taking. ? Do not share this medicine with others. This medicine is only for you. ? The pharmacy will give you a special medication guide each time you roll picker this medicine. ? Overdosage: Taking too much of this medicine can be deadly. Your doctor may prescribe another medicine with this medicine to treat an accidental overdose. If you think you have taken too much of this medicine, call 911 immediately. What if I miss a dose? If you miss a dose, you may take it as soon as you remember. If it is almost time for your next dose, take only that dose. Do not take double or extra doses. What may interact with this medicine? ? Alcohol ? Medicines for sleep, depression, anxiety, or psychiatric diseases ? Seizure medicines like gabapentin, pregabalin, phenytoin, or phenobarbital ? Other pain medicines like tramadol, hydrocodone, fentanyl, or morphine ? Muscle relaxers ? Certain nausea medicines like chlorpromazine or promethazine ? Cannabinoids like droperidol ? Certain antibiotics like erythromycin, clarithromycin, rifampin, ritonavir, voriconazole, or ketoconazole ? Allergy medicines like diphenhydramine This list may not describe all possible interactions. Give your health care provider a list of all the medicines, herbs, non-prescription drugs, or dietary supplements you use. Also tell them if you smoke, drink alcohol, or use illegal drugs. Some items may interact with your medicine. What should I watch for while using this medicine? ? Before you start taking this medicine, talk with your doctor about how long you should be on thismedicine. You should also talk to your doctor about other things you can do to treat pain, including other medicines or non-drug treatments like meditation or acupuncture. While taking this medicine,tell your doctor if your pain does not go away or gets worse or if you have a new or different typeof pain. ? It is possible you could become dependent on this medicine. The risk of dependence increases the longer you are on the medicine. Dependence is not addiction; however, if you have a personal or family history of addiction, you are at higher risk for becoming addicted to this medicine. Talk to yourdoctor if you are worried about dependence or addiction. ? If you take this medicine for a long time and suddenly stop taking this medicine, you may withdraw from this medicine. Withdrawal from this medicine may cause sweating, pain, diarrhea, anxiety, tremor, and other symptoms. Stopping the medicine slowly can reduce withdrawal symptoms. ? This medicine may cause dizziness or drowsiness, especially when you change doses or first start the medicine. Do not drive, use machinery, or do anything dangerous until you know how your body reacts to this medicine. ? This medicine causes constipation. Unless your doctor tells you not to, you should take a stool softener while on this medicine. Tell your doctor if you have not had a bowel movement in 3 or more days while on this medicine. ? This medicine can also cause dry mouth. Drinking water, chewing gum, or sucking on hard candy canhelp. It is important to keep regular dentist appointments. What side effects may I notice from receiving this medicine? Side effects that you should report to your doctor or health adult day care worker as soon as possible: ? allergic reactions like skin rash, itching or hives, swelling of the face, lips, or tongue ? breathing problems ? confusion ? craving for the medicine or withdrawal symptoms with a missed dose ? feeling faint or lightheaded, falls ? trouble passing urine or change in the amount of urine ? unusually weak or tired Side effects that usually do not require medical attention (report to your doctor or health adult day care worker if they continue or are bothersome): ? constipation ? dry mouth ? itching ? nausea, vomiting ? upset stomach This list may not describe all possible side effects. Call your doctor for medical advice about side effects. You may report side effects to FDA at 8-434-LIO-4080. Where should I keep my medicine? This medicine should be kept in a locked cabinet away from children and protected from theft. This medicine can be abused. Do not share this medicine with anyone. Selling or giving away this medicineis against the law. Store at room temperature (60-80??F) in a dry place that is protected from light. Do not save unused medicine that is no longer needed. Unused medicine should be taken to a proper disposal location. To find a disposal location, visit [facility]. If you cannot take unused medicine to a proper location, you can mix the medicine with coffee grounds or tania litter and dispose of in the normal trash. Your doctor may also give you a special disposal pouch for this medicine. You can also flush the medicine down the toilet. * [facility] - Bhakti Cooley RN - 01/13/2025 8:02 AM EDT Images from the original note were not included. [id number] Enoxaparin Injection IMPORTANT WARNING: If you have epidural or spinal anesthesia or a spinal puncture while taking a 'blood thinner' such as enoxaparin, you are at risk for having a blood clot form in or around your spine that could causeyou to become paralyzed. Tell your doctor if you are taking other anticoagulants ('blood thinners')such as warfarin (Coumadin), anagrelide (Agrylin), aspirin or nonsteroidal anti-inflammatory drugs (ibuprofen, naproxen), cilostazol (Pletal), clopidogrel (Plavix), dipyridamole (Persantine), eptifibatide (Integrilin), prasugrel (Effient), sulfinpyrazone (Anturane), ticlopidine (Ticlid), and tirofiban (Aggrastat). If you experience any of the following symptoms, call your doctor immediately: numbness, tingling, leg weakness or paralysis, and loss of control over your bladder or bowels. Talk to your doctor about the risk of taking enoxaparin. Keep all appointments with your doctor. WHY is this medicine prescribed? Enoxaparin is used to prevent blood clots in the leg in patients who are on bedrest or who are having hip replacement, knee replacement, or stomach surgery. It is used in combination with aspirin to prevent complications from angina (chest pain) and heart attacks. It is also used in combination with warfarin to treat blood clots in the leg. Enoxaparin is in a class of medications called low molecular weight heparins. It works by stopping the formation of substances that cause clots. HOW should this medicine be used? Enoxaparin comes as an injection in a syringe to be injected just under the skin (subcutaneously) but not into your muscle. It is usually given twice a day. You will probably begin using the drug while you are in the hospital and then use it for a total of 10 to 14 days. Follow the directions on your prescription label carefully, and ask your doctor or pharmacist to explain any part you do not understand. Use enoxaparin exactly as directed. Do not inject more or less of it or inject it more often than prescribed by your doctor. Continue to use enoxaparin even if you feel well. Do not stop taking enoxaparin without talking to your doctor. Your healthcare provider will teach you how to give yourself the shot or arrangements will be made for someone else to give you the shot. Enoxaparin is usually injected in the stomach area. You must use a different area of the stomach each time you give the shot. If you have questions about where to give the shot, ask your healthcare provider. Each syringe has enough drug in it for one shot. Do not use the syringe and needle more than one time. Your doctor, pharmacist, or health care provider will tell you how to dispose of used needles and syringes to avoid accidental injury. Keep syringes and needles out of reach of children. To inject enoxaparin, follow these instructions: ? Wash your hands and the area of skin where you will give the shot. ? Look at the syringe to be sure the drug is clear and colorless or pale yellow. ? Take the cap off the needle. Do not push any air or drug out of the syringe before giving the shot unless your healthcare provider tells you to. ? Lie down and pinch a fold of skin between your finger and thumb. Push the entire needle into the skin and then press down on the syringe plunger to inject the drug. Hold onto the skin the entire time you give the shot. Do not rub the site after you give the shot. Are there OTHER USES for this medicine? This medication may be prescribed for other uses; ask your doctor or pharmacist for more information. What SPECIAL PRECAUTIONS should I follow? Before taking enoxaparin, ? tell your doctor and pharmacist if you are allergic to enoxaparin, heparin, any other drugs, or pork products. ? tell your doctor and pharmacist what prescription and nonprescription medications, vitamins, nutritional supplements, and herbal products you are taking or plan to take while receiving enoxaparin. Your doctor may need to change the doses of your medications or monitor you carefully for side effects. ? the following nonprescription products may interact with enoxaparin: aspirin and nonsteroidal anti-inflammatory drugs (NSAIDs) such as ibuprofen (Advil, Motrin, others) and naproxen (Aleve, Naprosyn, others). Be sure to let your doctor and pharmacist know that you are taking these medications before you start receiving enoxaparin. Do not start any of these medications while receiving enoxaparinwithout discussing with your healthcare provider. ? tell your doctor if you have an artificial heart valve and if you have or have ever had kidney disease, an infection in your heart, a stroke, a bleeding disorder, ulcers, or a low platelet count. ? tell your doctor if you are , plan to become , or are breast- feeding. If you become while taking enoxaparin, call your doctor. ? if you are having surgery, including dental surgery, tell the doctor or dentist that you are taking enoxaparin. What should I do IF I FORGET to take a dose? Inject the missed dose as soon as you remember it. However, if it is almost time for the next dose,skip the missed dose and continue your regular dosing schedule. Do not inject a double dose to makeup for a missed one. What SIDE EFFECTS can this medicine cause? If you experience any of the following symptoms or those listed in the IMPORTANT WARNING section, call your doctor immediately: ? unusual bleeding or bruising ? black or bloody stools ? blood in urine ? swollen ankles and/or feet If you experience a serious side effect, you or your doctor may send a report to the Food and Drug Administration's (FDA) MedWatch Adverse Event Reporting program online (https://www.fda.gov/Safety/MedWatch) or by phone ( ). What should I know about STORAGE and DISPOSAL of this medication? Keep this medication out of reach of children. Store the syringes at room temperature and away fromexcess heat and moisture (not in the bathroom). Do not use the syringe if it leaks or if the fluid is dark or contains particles. Dispose of unneeded medications in a way so that pets, children, and other people cannot take them.Do not flush this medication down the toilet. Use a medicine take-back program. Talk to your pharmacist about take-back programs in your community. Visit the FDA's Safe Disposal of Medicines website h ttps://goo.gl/c4Rm4p for more information. Keep all medication out of sight and reach of children as many containers are not child-resistant. Always lock safety caps. Place the medication in a safe location - one that is up and away and out of their sight and reach. https://www.upandaway.org What should I do in case of OVERDOSE? In case of overdose, call the poison control helpline at . Information is also available online at https://www.poisonhelp.org/help. If the victim has collapsed, had a seizure, has trouble breathing, or can't be awakened, immediately call emergency services at 911. What OTHER INFORMATION should I know? Keep all appointments with your doctor and the laboratory. Your doctor will order certain lab teststo monitor your enoxaparin therapy. Enoxaparin prevents blood from clotting so it may take longer than usual for you to stop bleeding if you are cut or injured. Avoid activities that have a high risk of causing injury. Call your doctorif bleeding is unusual. Do not let anyone else use your medication. Your prescription is probably not refillable. Keep a written list of all of the prescription and nonprescription (tpax-vtq-[id number]) medicines, vitamins, minerals, and dietary supplements you are taking. Bring this list with you each time you visit a doctor or if you are admitted to the hospital. You should carry the list with you in case of aury rgencies. Brand Name(s): ? Lovenox?? also available generically This report on medications is for your information only, and is not considered individual patient advice. Because of the changing nature of drug information, please consult your physician or pharmacist about specific clinical use. The [employer] represents that the information provided hereunder was formulated with a reasonable standard of care, and in conformity with professional standards in the field. The [employer] makes no representations or warranties, express or implied, including, but not limited to, any implied warranty of merchantability and/or fitness for a particular purpose, with respect to such information and specifically disclaims all such warranties. Users are advised that decisions regarding drug therapy are complex medical decisions requiring the independent, informed decision of an appropriate health adult day care worker, and the information is provided for informational purposes only. The entire monograph for a drug should be reviewed for a thorough understanding of the drug's actions, uses and side effects. The [employer] does not endorse or recommend the use of any drug.The information is not a substitute for medical care. AHFS?? Patient Medication Information?. ?? Copyright, 2023. The [employer]??, [address], [address], [place], [place]. All Rights Reserved. Duplication for commercial use must be authorized by [facility]. Selected Revisions: November 02, 2023. AHFS?? Patient Medication Information?. ?? Copyright, 2024 * [facility] - Bhakti Cooley RN - 01/13/2025 8:02 AM EDT Images from the original note were not included. 217 Giving a Subcutaneous (Sub-Q) Enoxaparin (Lovenox) Injection (UK) Giving yourself a subcutaneous injection (also called a sub-Q injection) means inserting medicine into the fat just under your skin. The needle used for a sub- Q injection is very small and doesn?t cause much pain. Many medicines are given in this way. Enoxaparin (Lovenox) is a blood thinner used to prevent or treat blood clots. Why you take enoxaparin (Lovenox): Keep taking this medicine for this time period: Injections can be given once or twice a day. Your doctor has prescribed the amount and times to inject. The prescription will also say how long you need to take it. Amount per injection: Times each day: Preparing a Work Area ? Put any pets in another room. ? Wash your hands for 1 to 2 minutes with liquid soap. ? Clean your area with soap and water. ? Collect the following items: o Your medication o Alcohol wipes or swabs o A puncture-proof plastic container to dispose of your used needles and syringes. Use a sharps container or an empty laundry detergent bottle. ? Wash your hands again. Selecting Your Injection Site ? Inject this medicine in your abdomen at least 2 inches from the belly button. ? Avoid areas that are red, swollen, or bruised. ? Rotate your injection sites. Choose a site that is at least 2 inches away from your last injection site. ? Sit or lie in a comfortable position. Preparing the Medicine ? Check the medicine in the syringe for changes in color, debris, or cloudiness. ? Don?t use the medicine if you notice anything different about the contents of the syringe. ? Call your doctor or pharmacist if you question whether the medicine is safe to use. ? Remove the syringe from its package. Don?t use the syringe if the package is already open or has holes in it. Giving the Injection ? Using an alcohol swab, clean the injection site. Make sure the cleaned area is about 2 inches in diameter. ? Let the injection site dry. ? Take the cap off the needle. ? There is an air bubble in the syringe. If the air bubble is not at the top of the syringe near the plunger, flick the syringe with your other fingers. The air bubble should be injected last to helpprevent skin irritation and make sure you receive all of the medicine. ? Hold the syringe like a pencil. ? With your other hand, place your thumb and forefinger on either side of the clean injection site.Pinch up about an inch of skin. ? Insert the needle at a 90?? angle into the pinched-up skin. Do this quickly; it will hurt less. ? Be sure to insert the needle with the bevel up and insert all the way to the end of the needle. This will help you inject the medicine correctly. ? Keep the skin pinched up. ? To inject the medicine , slowly push the plunger all the way down with your finger. After the Injection ? Pull the needle from the skin and release the pinched-up skin. ? Hold the alcohol swab on the injection site for a few seconds. Don?t rub the injection site. ? If you see blood or clear fluid, press on the injection site with the gauze or cotton ball for 5 to 8 minutes. Don?t rub while pressing. Apply a bandage if you wish. ? Don?t recap the needle. ? Put the empty syringe in the disposal container. Never put loose needles in the trash. ? Call your local waste company or public health department to find out the proper way to dispose of used syringes. * Discharge Instr - Other Orders - Bhakti Cooley RN - 01/13/2025 8:01 AM EDT If you need to contact your doctor after hours, please call [phone] and ask for the doctors berna for [facility]. Clinic information for Dr. Castillo: [facility] [address], [place] [phone] * Discharge Summary - Paulo Jay, [employer] MACH[employer]ERY SALES REPRESENTATIVE - 01/13/2025 7:51 AM EDT Hospitalization Admit Date/Time: 01/06/2025 9:09 AM Admitting Attending: Farhad Castillo Discharge Date: 01/13/25 Discharge Attending Physician: Farhad Castillo MD PCP name and Address: Tayo Jones MD [address] [place] [address] Referring provider name and address: No referring provider defined for this encounter. Chief Concern, Brief History of Present Illness, and Hospital Course Faith Snyder is a 59 y.o. male with a past medical history of DM, HTN, presented to [facility] as a scheduled surgical intervention for management of metastatic colon cancer to liver. On 01/06/2025, the patient underwent segment 8 partial hepatectomy, segment 6 microwave ablation, open cholecystectomy by Dr. Castillo, ventral incisional hernia repair with phasix mesh and partial omentectomy by Dr. March. The procedure was tolerated well with no intraoperative complications. Surgical Pathology was significant for metastatic moderately differentiated adenocarcinoma, morphologically consistent with the patients known cecum primary. The remaining hospital course was uncomplicated. Discharge medication to highlight: - Insulin [CHANGE]: Patients insulin regimen has changed and has requires less post-operatively. Patient will be discharged with 12u Glargine nightly, Lispro 3 unit TID with resistant sliding scale. - Lisinopril [CHANGE]: Patient was taking 20mg daily. Patient was not requiring lisinopril during this hospitalization and should start at 10mg daily for now and can increase as appropriate. - Pain medication: Patient will be discharged with flexeril for regular daily pain management. Patient will also be prescribed oxycodone for as needed breakthrough severe pain. - Lovenox: Patient will be on lovenox for 28 days from the surgery date (01/06/2025) and will end on02/03/25. - Restart home meds as listed below Significant to discharge: - patient will require PT/OT upon return to his facility. He will require intermittent assistance and a rolling walker with wheelchair for longer distances. On 01/13/25, patient has been hemodynamically stable and deemed medically appropriate for discharge.Currently, the patient's pain is well controlled on an oral regimen. They have return of bowel function and are tolerating a regular diet with no nausea/vomiting. There were no difficulties voiding. The patient will be discharged to Nursing facility (specify). Follow-up appointments: - The patient will follow-up with Julia Dotson APRN in clinic in 2 weeks and then [address] Castillo. Surgeries and Procedures HEPATECTOMY, PARTIAL, microwave ablation, cholecystectomy (N/A), REPAIR, HERNIA, incisional with mesh (N/A) Medication List .. carvedilol 12.5 MG tablet Commonly known as: Coreg Take by mouth in the morning and in the evening. Take with meals. cyclobenzaprine 5 MG tablet Commonly known as: Flexeril Take 1 tablet by mouth 3 times a day. enoxaparin 40 MG/0.4ML solution prefilled syringe Commonly known as: Lovenox Inject 0.4 mL under the skin daily for 21 days. ferrous sulfate 325 (65 Fe) MG EC tablet Impact [facility] Recovery liquid Drink 1 178ml carton 2 per day X 5 days before surgery insulin lispro 100 UNIT/ML injection pen Commonly known as: Admelog, HumaLOG Inject 3 Units under the skin 3 times a day with meals. Lantus SoloStar 100 UNIT/ML injection pen Generic drug: insulin glargine Inject 12 Units under the skin nightly. lisinopril 20 MG tablet Take 0.5 tablets by mouth daily. loperamide 2 MG tablet Commonly known as: Imodium A-D Take by mouth 3 times a day as needed. magnesium oxide 400 MG tablet Commonly known as: Mag-Ox Take 1 tablet by mouth 2 times a day. multivitamin tablet Take 1 tablet by mouth daily. mupirocin 2 % ointment Commonly known as: Bactroban Apply topically 2 times a day. naloxone 4 mg/0.1 mL nasal spray Commonly known as: Narcan 1. Give 1 spray in nostril for no/slow breathing or cannot wake after opioid use 2. Call 911 3. Repeat in other nostril if symptoms continue oxyCODONE 5 MG immediate release tablet Commonly known as: Roxicodone Take 1 tablet by mouth every 6 hours as needed for moderate pain. pantoprazole 40 MG EC tablet Commonly known as: Protonix Take 1 tablet by mouth daily. Do not crush, chew, or split. potassium chloride CR 20 MEQ ER tablet Commonly known as: Klor-Con M20 Take 1 tablet by mouth 2 times a day. Quercetin 500 MG capsule Take 2 tablets by mouth daily. sodium bicarbonate 650 MG tablet Take 1 tablet by mouth 2 times a day. spironolactone 25 MG tablet Commonly known as: Aldactone Take 1 tablet by mouth daily. . ondansetron 4 MG tablet Commonly known as: Zofran Where to Get Your Medications These medications were sent to [place], [place] - [address] [facility] [address] [facility] [place] [address] Lantus SoloStar 100 UNIT/ML injection pen naloxone 4 mg/0.1 mL nasal spray pantoprazole 40 MG EC tablet Information about where to get these medications is not yet available Ask your nurse or doctor about these medications cyclobenzaprine 5 MG tablet enoxaparin 40 MG/0.4ML solution prefilled syringe insulin lispro 100 UNIT/ML injection pen lisinopril 20 MG tablet oxyCODONE 5 MG immediate release tablet Discharge Diagnosis Medical Problems Active and Resolved Hospital Problems Hospital Post-op pain Overview Signed 01/08/2025 11:18 AM by Paulo Jay APRN - multimodal pain management - transition PO pain meds as diet advances and prior to discharge Electrolyte abnormality Overview Signed 01/08/2025 11:18 AM by Paulo Jay APRN - daily/PRN CMP, Mg, Phos - replete as appropriate - goal: K>4, phos>3, mg>2 Leukocytosis Overview Signed 01/08/2025 11:18 AM by Paulo Jay TEXTILE MACHINERY SALES REPRESENTATIVE - common post-op finding likely reactive 2/2 surgery - daily/prn CBC - monitor for s/s of active infection * (Principal) Metastatic colon cancer to liver Overview Signed 01/08/2025 11:17 AM by Paulo Jay APRN 01/06/25: OR for partial hepatectomy, cholecystectomy,[Pandalai] and hernia repair [Anca] Post Discharge Instructions Medications: - Insulin [CHANGE]: Your insulin regimen has changed and has required less after the surgery. You will be discharged with 12 units Glargine nightly, Lispro 3 unit TID with resistant sliding scale. - Lisinopril [CHANGE]: You were taking 20mg daily of lisinopril. You did not need lisinopril duringthis hospitalization and can restart at 10mg daily for now and can increase as appropriate. - Pain medication: You will be discharged with flexeril for as needed daily pain management. You will also be prescribed oxycodone for as needed breakthrough severe pain. - Lovenox: You will be on lovenox for 28 days from the surgery date (01/06/2025) and will end on 02/03/25. - You may resume your previous medications unless otherwise instructed. Nutrition: - You should consume a regular diet as tolerated, focusing on liquids to keep yourself hydrated. Please refer to diet education for more instructions on what you can or cannot eat. Activity: - Walking and climbing stairs is ok and encouraged. You should refrain from any strenuous activity/exercise until your follow up appointment. - No lifting anything more than 10 pounds for the next 6 weeks - You may not drive for 48 hours after surgery, or while taking narcotics Dressing: - A special skin glue is used to close and cover your incision. Do not pick it off, it will fall ofon its own after approximately 2 weeks. The glue is waterproof but you should not soak your incision or take a tub bath for 2 weeks. - You should try to keep your incisions as clean and dry as possible - You may shower. Let the soapy water run over your incisions. Do not scrub at your incisions. After you shower, pat your incisions dry with a clean towel. - Do NOT soak your incisions, or take a tub bath for 2 weeks. Potential Issues: - It is normal to [...] if you have a fever greater than 101 F - Call the office if you have severe abdominal discomfort, nausea and vomiting, or feeling unwell - Call the [facility] with any questions or concerns during regular business hours (9am-5pm Saturday through Saturday except holidays). The number is . - If outside regular business hours, please call the after hours number at . Follow Up: - You will follow-up with Julia Dotson APRN in clinic in 2 weeks and then [address] Castillo. Outpatient Follow-Up Future Appointments Date Time Provider Department Center 02/04/2025 10:15 AM [facility]idi [facility] Test Results Pending At Discharge Pertinent Physical Exam At Time of Discharge Physical Exam Vitals reviewed. Constitutional: General: He is not in acute distress. Appearance: Normal appearance. HENT: Head: Normocephalic and atraumatic. Nose: Nose normal. Mouth/Throat: Mouth: Mucous membranes are moist. Eyes: General: No scleral icterus. Extraocular Movements: Extraocular movements intact. Conjunctiva/sclera: Conjunctivae normal. Cardiovascular: Rate and Rhythm: Normal rate. Pulmonary: Effort: Pulmonary effort is normal. No respiratory distress. Abdominal: General: There is no distension. Palpations: Abdomen is soft. Tenderness: There is no abdominal tenderness. There is no guarding or rebound. Comments: Appropriately tender, Midline abdominal incision C/D/I, abdominal binder in place Musculoskeletal: General: Normal range of motion. Skin: General: Skin is warm and dry. Coloration: Skin is not jaundiced. Neurological: General: No focal deficit present. Mental Status: He is alert and oriented to person, place, and time. Mental status is at baseline. Psychiatric: Mood and Affect: Mood normal. Behavior: Behavior normal. Thought Content: Thought content normal. Judgment: Judgment normal. Discharge Disposition/Condition Disposition: Nursing facility (specify) Condition: Stable (s/sx potential problems absent or manageable) I spent >30 minutes of patient care and instruction time in preparation for this discharge. Cosigned by Montserrat Connor MD at 01/13/2025 4:35 PM EDT Associated attestation - Montserrat Connor MD - 01/13/2025 4:35 PM EDT Images from the original note were not included. Attending Attestation: I personally saw and evaluated the patient with the TEXTILE MACHINERY SALES REPRESENTATIVE. I attest to being involved in providing substantive time in patient care. I discussed the case with them and agree with the findings as documented. The discussion and plan reflect my edits and medical decision making. Dr. Montserrat Connor MD Machine Adjuster of Surgical Oncology [facility] * Care Plan - Tereza Phma RN - 01/13/2025 6:33 AM EDT Problem: Adult Inpatient Plan of Care Goal: Plan of Care Review Outcome: Ongoing, Progressing Flowsheets (Taken 01/13/2025629) Progress: improving Outcome Evaluation: pt deneis any pain throughout shift, ambulatory to bathroom. bs stable Plan of Care Reviewed With: patient Goal: Absence of Hospital-Acquired Illness or Injury Outcome: Ongoing, Progressing Intervention: Prevent Skin Injury Flowsheets (Taken 01/13/2025629) Skin Protection: incontinence pads utilized protective footwear used pulse oximeter probe site changed transparent dressing maintained Intervention: Prevent Infection Flowsheets (Taken 01/13/2025629) Infection Prevention: hand hygiene promoted personal protective equipment utilized rest/sleep promoted Goal: Optimal Comfort and Wellbeing Outcome: Ongoing, Progressing Intervention: Provide Person-Centered Care Flowsheets (Taken 01/13/2025629) Trust Relationship/Rapport: care explained choices provided emotional support provided empathic listening provided questions answered questions encouraged reassurance provided thoughts/feelings acknowledged Problem: Skin Injury Risk Increased Goal: Skin Health and Integrity Outcome: Ongoing, Progressing Intervention: Optimize Skin Protection Flowsheets (Taken 01/13/2025629) Pressure Reduction Techniques: frequent weight shift encouraged heels elevated off bed rest period provided between sit times Pressure Reduction Devices: positioning supports utilized Skin Protection: incontinence pads utilized protective footwear used pulse oximeter probe site changed transparent dressing maintained Intervention: Promote and Optimize Oral Intake Flowsheets (Taken 01/13/2025629) Oral Nutrition Promotion: rest periods promoted Nutrition Interventions: diet advanced Problem: Infection Goal: Absence of Infection Signs and Symptoms Outcome: Ongoing, Progressing Intervention: Prevent or Manage Infection Flowsheets (Taken 01/13/2025629) Infection Management: aseptic technique maintained Fever Reduction/Comfort Measures: fluid intake increased lightweight bedding lightweight clothing Problem: Fall Injury Risk Goal: Absence of Fall and Fall-Related Injury Outcome: Ongoing, Progressing Intervention: Identify and Manage Contributors Flowsheets (Taken 01/13/2025629) Medication Review/Management: medications reviewed Self-Care Promotion: independence encouraged * Progress Notes - Elle Andre - 01/12/2025 10:10 AM EDT Case Management Adult Progress Note Faith Snyder 59 y.o. male CSN: [id number] Admission: 01/06/2025 9:09 AM Primary Problem: Metastatic colon cancer to liver Anticipated Discharge Date: 24 hours Additional Comments: SW spoke with MDs this date re: pt's plan of care. According to MDs, this pt is not medically stable for DC this date but is anticipated to be stable within 24 hrs. Pt meets FPG 300%. Pt will DC via caliber on 01/13/25 at 1100 back to [facility]. Pharmacy for controlled meds: [facility] NFR: [phone] ext 4 Fax the DC summary: [phone] Elle Andre, QUARTER FOLDER, REINFORCED CONCRETE INSPECTOR Social Work Senior Department of Case Management [facility] * Consults - Naz Posey RN - 01/12/2025 8:02 AM EDT Epidural catheter removed yesterday. Catheter site clean, dry, intact, and open to air at this time. Acute Pain will sign off. Please Contact Acute Pain Service with any additional questions or concerns via [employer] orpage [phone]. * Progress Notes - Oziel Morris MD - 01/12/2025 6:47 AM EDT Images from the original note were not included. [facility] Department of Surgery Division of General, Endocrine, & Metabolic Surgery Surgery Progress Note 01/12/25 Faith Snyder Subjective Subjective: HPI 59 yo M a PMHx of DM, on insulin with A1c of 7.3, and obesity with metastatic stage 4 colon cancer with metastasis to the liver. 01/06/25: Partial hepatectomy, cholecystectomy [Pandalai] and hernia repair [Anca] Interval: NAEO. Drains with minimal output, remains very thin serosanguinous. Otherwise continues to progress appropriately post-operatively Edited by: Oziel Morris MD at 01/12/2025 0648 Review of Systems: Relevant review of systems was obtained as able and is negative unless stated above in HPI. Objective Objective: Vital signs: Vitals: 01/12/25 0336 BP: 138/71 Pulse: 73 Resp: 18 Temp: 36.8 ??C (98.2 ??F) SpO2: 96% Physical Exam: Physical Exam Constitutional: Appearance: Normal appearance. Cardiovascular: Rate and Rhythm: Normal rate. Pulmonary: Effort: Pulmonary effort is normal. Abdominal: General: Abdomen is flat. Palpations: Abdomen is soft. Comments: Midline incision clean, dry and intact. Abdominal binder in place. EL drain thin SS, minimal in bulb Skin: General: Skin is warm and dry. Neurological: General: No focal deficit present. Mental Status: He is alert and oriented to person, place, and time. Psychiatric: Mood and Affect: Mood normal. Behavior: Behavior normal. Intake/Output Summary (Last 24 hours) at 01/12/2025 0648 Last data filed at 01/12/2025 0500 Gross per 24 hour Intake 1560 ml Output 1210 ml Net 350 ml Lines/Drains/Tubes: Patient Lines/Drains/Airways Status Active Airway None Output by Drain (mL) 01/10/25 0700 - 01/10/25 1859 01/10/25 1900 - 01/11/25 0659 01/11/25 0700 - 01/11/25 1859 01/11/25 1900 - 01/12/25 0648 Closed/Suction Drain LUQ Bulb 19 Fr. 27 0 10 Labs in last 18 hours: CBC WBC 10.27 Hb 10.2 (L) Plt 250 Hct 31.0 (L) ANC ?? INR ??, PTT ??, Anti-Xa ?? MCV 91 BMP Na 137 Cl 105 BUN 7 (L) Glu 139 (H) K 3.7 Co2 23 Cr 0.77 Ca 8.4 (L) iCa ?? Mg 1.9, Phos 3.1 Lactate ?? LFT AST 22 AlkPhos 65 T Prot 5.5 (L) ALK 16 Bili 0.4 Alb ?? D.Bili ?? Lab Trends: H/H Results from last 7 days Lab Units 01/12/25 0339 01/11/25 0349 01/10/25 0356 HEMOGLOBIN g/dL 10.2* 10.3* 10.6* HEMATOCRIT % 31.0* 31.1* 33.1* INR Cr Results from last 7 days Lab Units 01/12/25 0339 01/11/25 0349 01/10/25 0356 CREATININE mg/dL 0.77 0.75 0.78 Lactate Results from last 7 days Lab Units 01/06/25 1703 01/06/25 1536 01/06/25 1327 LACTIC ACID, WHOLE B mmol/L 1.9* 1.8* 1.6 Radiographic Interpretation: No imagining today. Medications reviewed. Vital signs reviewed. Labs reviewed. Assessment/Plan Assessment and Plan: Medical Problems Problem List * (Principal) Metastatic colon cancer to liver (CMS/HCC) Overview Signed 01/08/2025 11:17 AM by Paulo Jay APRN 01/06/25: OR for partial hepatectomy, cholecystectomy,[Pandalai] and hernia repair [Anca] Obesity (BMI 35.0-39.9 without comorbidity) Bowel obstruction (CMS/HCC) Incisional hernia, without obstruction or gangrene Post-op pain Overview Signed 01/08/2025 11:18 AM by Paulo Jay APRN - multimodal pain management - transition PO pain meds as diet advances and prior to discharge Electrolyte abnormality Overview Signed 01/08/2025 11:18 AM by Paulo Jay APRN - daily/PRN CMP, Mg, Phos - replete as appropriate - goal: K>4, phos>3, mg>2 Leukocytosis Overview Signed 01/08/2025 11:18 AM by Paulo Jay APRN - common post-op finding likely reactive 2/2 surgery - daily/prn CBC - monitor for s/s of active infection Present on Admission: Metastatic colon cancer to liver (CMS/HCC) Plan: - Flexeril TID - Encourage ambulation - Continue abdominal binder - will remove drains today - Rest of management per primary team Dispo: Continue Current Level of Care Oziel Morris MD Cosigned by Heidi March MD at 01/12/2025 1:44 PM EDT Associated attestation - Heidi March MD - 01/12/2025 1:44 PM EDT I saw and evaluated the patient with the resident/fellow. I discussed the case with the resident/fellow and agree with the findings and plan as documented. * Progress Notes - Cyndi Sol MD - 01/12/2025 6:09 AM EDT Images from the original note were not included. Department of Surgery Division of Surgical Oncology Surgery Progress Note 01/12/25 Faith Snyder Subjective Subjective: HPI 59M w/ PMHx of DM, on insulin with A1c of 7.3, and obesity with metastatic stage 4 colon cancer with metastasis to the liver open partial right hepatectomy in combination with a ventral incisional hernia repair. 01/06/25: OR for partial hepatectomy, cholecystectomy,[Pandalai] and hernia repair [Anca] Interval: POD6. NAEO. VSS WNL. AF. RA. Patient states that he feels good today. He is passing gas and having bowel movements. He feels like his pain is currently well controlled on oral regimen. EL drain was removed prior to rounds. Patient states he feels like his normal self. He is still wearing an abdominal binder. He denies nausea or vomiting on a full liquid diet. I/O 24hr: I: 1560PO O: UOP 1200 + x1 unmeasured, LUQ drain 10(27), BM x2 Edited by: Cyndi Sol MD at 01/12/2025 7236 Review of Systems: Relevant review of systems was obtained as able and is negative unless stated above in HPI. Objective Objective: Vital signs: Vitals: 01/12/25 0807 BP: 121/72 Pulse: 65 Resp: 18 Temp: 36.7 ??C (98.1 ??F) SpO2: 96% Physical Exam: Physical Exam Vitals reviewed. Constitutional: General: He is not in acute distress. Appearance: Normal appearance. HENT: Head: Normocephalic and atraumatic. Nose: Nose normal. Mouth/Throat: Mouth: Mucous membranes are moist. Eyes: General: No scleral icterus. Extraocular Movements: Extraocular movements intact. Conjunctiva/sclera: Conjunctivae normal. Cardiovascular: Rate and Rhythm: Normal rate. Pulmonary: Effort: Pulmonary effort is normal. No respiratory distress. Abdominal: General: There is no distension. Palpations: Abdomen is soft. Tenderness: There is no abdominal tenderness. There is no guarding or rebound. Comments: Appropriately tender, Midline abdominal incision C/D/I, abdominal binder in place Musculoskeletal: General: Normal range of motion. Skin: General: Skin is warm and dry. Capillary Refill: Capillary refill takes less than 2 seconds. Coloration: Skin is not jaundiced. Neurological: General: No focal deficit present. Mental Status: He is alert and oriented to person, place, and time. Psychiatric: Mood and Affect: Mood normal. Behavior: Behavior normal. Thought Content: Thought content normal. Judgment: Judgment normal. Intake/Output Summary (Last 24 hours) at 01/12/2025 0814 Last data filed at 01/12/2025 0807 Gross per 24 hour Intake 1660 ml Output 1210 ml Net 450 ml Lines/Drains/Tubes: Patient Lines/Drains/Airways Status Active Airway None Output by Drain (mL) 01/10/25 0700 - 01/10/25 1859 01/10/25 1900 - 01/11/25 0659 01/11/25 07 - 01/11/25 1859 01/11/25 1900 - 01/12/25 0659 01/12/25 0700 - 01/12/25 0814 Closed/Suction Drain LUQ Bulb 19 Fr. 27 0 10 Labs in last 18 hours: CBC WBC 10.27 Hb 10.2 (L) Plt 250 Hct 31.0 (L) ANC ?? INR ??, PTT ??, Anti-Xa ?? MCV 91 BMP Na 137 Cl 105 BUN 7 (L) Glu 139 (H) K 3.7 Co2 23 Cr 0.77 Ca 8.4 (L) iCa ?? Mg 1.9, Phos 3.1 Lactate ?? LFT AST 22 AlkPhos 65 T Prot 5.5 (L) ALK 16 Bili 0.4 Alb ?? D.Bili ?? Lab Trends: H/H Results from last 7 days Lab Units 01/12/25 0339 01/11/25 0349 01/10/25 0356 HEMOGLOBIN g/dL 10.2* 10.3* 10.6* HEMATOCRIT % 31.0* 31.1* 33.1* INR Cr Results from last 7 days Lab Units 01/12/25 0339 01/11/25 0349 01/10/25 0356 CREATININE mg/dL 0.77 0.75 0.78 Lactate Results from last 7 days Lab Units 01/06/25 1703 01/06/25 1536 01/06/25 1327 LACTIC ACID, WHOLE B mmol/L 1.9* 1.8* 1.6 Radiographic Interpretation: I have reviewed the imaging above and agree with the radiologist interpretation. Medications reviewed. Vital signs reviewed. Labs reviewed. Assessment/Plan Assessment and Plan: Medical Problems Problem List * (Principal) Metastatic colon cancer to liver (CMS/HCC) Overview Signed 01/08/2025 11:17 AM by Paulo Jay APRN 01/06/25: OR for partial hepatectomy, cholecystectomy,[Pandalai] and hernia repair [Anca] Obesity (BMI 35.0-39.9 without comorbidity) Bowel obstruction (CMS/HCC) Incisional hernia, without obstruction or gangrene Post-op pain Overview Signed 01/08/2025 11:18 AM by Paulo Jay TEXTILE MACHINERY SALES REPRESENTATIVE - multimodal pain management - transition PO pain meds as diet advances and prior to discharge Electrolyte abnormality Overview Signed 01/08/2025 11:18 AM by Paulo Jay 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 CMP, Mg, Phos - replete as appropriate - goal: K>4, phos>3, mg>2 Leukocytosis Overview Signed 01/08/2025 11:18 AM by Paulo Jay TEXTILE MACHINERY SALES REPRESENTATIVE - common post-op finding likely reactive 2/2 surgery - daily/prn CBC - monitor for s/s of active infection Present on Admission: Metastatic colon cancer to liver (CMS/HCC) Plan: - Advance to GI soft - PO pain - consider HLIV in the PM - Encourage ambulating in the halls Diet: GI soft GI ppx: PPI Bowel Reg: --- Abx: Cefoxitin Endo: Resistant SSI DVT ppx: SQH Pain: flexeril, dilaudid PRN, oxycodone LDA: LUQ EL, PIV [facility]in[facility] PT[facility]OT Edited by: Cyndi Sol MD at 01/12/2025 0813 Dispo: Continue Current Level of Care Cyndi Sol MD Cosigned by Montserrat Connor MD at 01/13/2025 4:36 PM EDT Associated attestation - Montserrat Connor MD - 01/13/2025 4:36 PM EDT Images from the original note were not included. Attending Attestation: I personally saw and evaluated the patient with the resident. I attest to being involved in providing substantive time in patient care. I discussed the case with them and agree with the findings as documented. The discussion and plan reflect my edits and medical decision making. Dr. Montserrat Connor MD Machine Adjuster of Surgical Oncology [facility] * Progress Notes - Kd Boyd MD - 01/11/2025 4:17 PM EDT Acute Pain Service Pain management goal: 2/10 Pain scale (0-10): 3/10 (patient reports the epidural worked well for pain relief) Side Effects Nausea/Vomiting: no Pruritus: no Confusion: no Sedation: no Numbness/Tingling: no Catheter inspected per protocol: yes Outcomes Able to take oral medications: taking water. Has ambulated: walking regularly. Assessment & Plan in the Next 24 hours Assessment: doing well Plan: wean SUPERVISOR ACOU[employer] TILE CARPENTERS Plan explained/all questions answered/plan in agreement with: Patient Patient seen and examined today on rounds with AP Nurse. Epidural analgesics infusing for the management of postop pain. Analgesic medication rate and use reviewed. Patient doing well and quite comfortable. Patient reports the epidural SUPERVISOR [employer]PENT[employer] doses are effective. No significant adverse effects noted. My plan is to STOP the epidural infusion basal and SUPERVISOR ACOU[employer]ICAL TILE [employer]PENTERS settings. Will follow. Reason for Block: post-op pain management * Consults - Shanell Bravo RN - 01/11/2025 12:36 PM EDT Acute Pain Service Follow-Up Evaluation Faith Snyder is a 59 y.o. male Visit Type: Routine Current Pain Treatment: Epidural removed 01/11/25 @ 1230, open partial right hepatectomy, incisional hernia repair Follow-Up: Follow-up reason: APS rounds Pain Rating (0-10): 0 Comfort/ Acceptable Pain Level: 0 Epidural catheter removed @ 1230 tip intact. Acute Pain service will continue to monitor catheter site at least 12 hrs post removal. Follow-Up: Follow-Up: Site check tomorrow. Acute Pain Service Comments: Pain Service comments: Please Contact Acute Pain Service with any additional questions or concerns via [employer] orpage [phone]. * Progress Notes - Jessica Benoit RN - 01/11/2025 10:33 AM EDT Case Management Adult Progress Note Faith Snyder 59 y.o. male CSN: [id number] Admission: 01/06/2025 9:09 AM Primary Problem: Metastatic colon cancer to liver Anticipated Discharge Date: 01/15 Has Discharge Plans Changed? No Medicare Second Notice: Housing Circumstances: Not Applicable Housing Circumstances Action Taken: Medically Ready for Discharge: no Additional Comments [facility] phone [phone] will accept him [place] as a detention care resident. POC reviewed with primary team. Refer to primary team's progress note for details. Pt not medicallyready to d\c. Advance to FLD. DC epidural and change to PO pain control. Jessica Benoit RN * Consults - Marylin Yang RN - 01/11/2025 8:35 AM EDT Acute Pain Service Follow-Up Evaluation Faith Snyder is a 59 y.o. male Visit Type: Routine Current Pain Treatment: Epidural Hydromorphone 10 mcg/ml and Bupivacaine 1.25 mg/ml 05/16/09 T8-T9 12cm @ skin - open partialright hepatectomy, incisional hernia repair Follow-Up: Follow-up reason: APS rounds Pain Rating (0-10): 0 Comfort/ Acceptable Pain Level: 0 Epidural capped @ 0835. Follow-Up: Follow-Up: Acute Pain service will continue to follow. Acute Pain Service Comments: Pain Service comments: Plan to discontinue when appropriate. Please Contact Acute Pain Service with any additional questions or concerns via [employer] orpage [phone]. * Consults - Marylin Yang RN - 01/11/2025 8:35 AM EDT Acute Pain Service Follow-Up Evaluation Faith Snyder is a 59 y.o. male Follow-Up: Follow-up reason: APS rounds Pain Rating (0-10): 0 Acute Pain Service Comments: Patient is currently receiving the following: Epidural Catheter Medication: received 0 doses of Bupivacaine and Hydromorphone totaling 52.2 mL in24 hours Will continue Patient Controlled Analgesia infusion until primary service decides it is appropriateto discontinue. Epidural Site: normal Follow-Up: Follow-Up: Acute Pain Service will continue to follow and adjust as needed. Visit Type: Routine Current Analgesic Treatments: Inpatient Analgesics Active Medications Medication Name Dose Route Frequency cyclobenzaprine (Flexeril) tablet 5 mg 5 mg Oral TID HYDROmorphone (Dilaudid) injection 0.25 mg 0.25 mg Intravenous q2h PRN for For breakthrough pain 1 hour after Oxycodone HYDROmorphone (PF) 10 mcg/mL + bupivacaine (PF) 1.25 mg/mL in 100 mL (PF) SUPERVISOR [employer] no dose Epidural Continuous hydromorphone 10 mcg/mL + bupivacaine 1.25 mg/mL clinician bolus dose 1-5 mL Epidural PRN for severe pain naloxone (Narcan) 2 mg in sodium chloride 0.9 % 100 mL (0.02 mg/mL) infusion (Urinary Retention or Pruritus) 0.25-1 mcg/kg/hr Intravenous Titrated PRN for urinary retention, itching Rate: 1.36-5.45 mL/hr naloxone (Narcan) injection 0.08 mg 0.08 mg Intravenous q1 min PRN for respiratory depression, For respiratory rate < 10 oxyCODONE (Roxicodone) immediate release tablet 5 mg 5 mg Oral q6h PRN for moderate pain oxyCODONE (Roxicodone) immediate release tablet 10 mg 10 mg Oral q6h PRN for severe pain Future Medications Medication Name Dose Route Frequency Epidural Hydromorphone 10 mcg/ml and Bupivacaine 1.25 mg/ml 05/16/09 T8-T9 12cm @ skin - open partialright hepatectomy, incisional hernia repair Blood pressure (!) 152/67, pulse 65, temperature 36.5 ??C (97.7 ??F), temperature source Axillary, resp. rate 18, height 1.803 m (5' 11 ), weight 122 kg (268 lb 15.4 oz), SpO2 96%. Please Contact Acute Pain Service with any additional questions or concerns via [employer] [email or web address]. * Progress Notes - Paulo Jay, TEXTILE MACHINERY SALES REPRESENTATIVE - 01/11/2025 7:47 AM EDT Images from the original note were not included. Department of Surgery Division of Surgical Oncology Surgery Progress Note 01/11/25 Faith Snyder Subjective Subjective: HPI 59 yo M a PMHx of DM, on insulin with A1c of 7.3, and obesity with metastatic stage 4 colon cancer with metastasis to the liver open partial right hepatectomy in combination with a ventral incisionalhernia repair. 01/06/25: OR for partial hepatectomy, cholecystectomy,[Pandalai] and hernia repair [Anca] Interval: POD5. NAEO. VSS with mild HTN consistent with prior. AF. 2L NC. Patient is having BM and passing flatus. He denies N/V and reports his pain is well-controlled. He is ambulating the halls. I/O 24hr: I: 720 PO O: UOP 950, LUQ drain 26(35), BM x1 Edited by: Paulo Jay APRN at 01/11/2025 0610 Review of Systems: Relevant review of systems was obtained as able and is negative unless stated above in HPI. Objective Objective: Vital signs: Vitals: 01/11/25 0511 BP: (!) 152/67 Pulse: 65 Resp: Temp: SpO2: Physical Exam: Physical Exam Vitals reviewed. Constitutional: General: He is not in acute distress. Appearance: He is ill-appearing. HENT: Head: Normocephalic and atraumatic. Nose: Nose normal. Mouth/Throat: Mouth: Mucous membranes are moist. Eyes: General: No scleral icterus. Extraocular Movements: Extraocular movements intact. Conjunctiva/sclera: Conjunctivae normal. Pulmonary: Effort: Pulmonary effort is normal. No respiratory distress. Comments: On 1L NC Abdominal: General: There is no distension. Palpations: Abdomen is soft. Tenderness: There is no abdominal tenderness. There is no guarding or rebound. Comments: Appropriately tender, EL drain serosanguinous, Midline abdominal incision C/D/I, abdominal binder in place Musculoskeletal: General: Normal range of motion. Skin: General: Skin is warm and dry. Capillary Refill: Capillary refill takes less than 2 seconds. Coloration: Skin is not jaundiced. Neurological: General: No focal deficit present. Mental Status: He is alert and oriented to person, place, and time. Psychiatric: Mood and Affect: Mood normal. Behavior: Behavior normal. Thought Content: Thought content normal. Judgment: Judgment normal. Intake/Output Summary (Last 24 hours) at 01/11/2025 0747 Last data filed at 01/11/2025 0510 Gross per 24 hour Intake 1408 ml Output 976 ml Net 432 ml Lines/Drains/Tubes: Patient Lines/Drains/Airways Status Active Airway None Output by Drain (mL) 01/09/25 07 - 01/09/25 18501/09/25 190 - 01/10/25 0659 01/10/25 07 - 01/10/25 1859 01/10/25 1900 - 01/11/25 0659 01/11/25 07 - 01/11/25 0747 Closed/Suction Drain LUQ Bulb 19 Fr. 30 5 26 Labs in last 18 hours: CBC WBC 10.73 (H) Hb 10.3 (L) Plt 254 Hct 31.1 (L) ANC ?? INR ??, PTT ??, Anti-Xa ?? MCV 92 BMP Na 136 Cl 103 BUN 8 Glu 105 (H) K 3.6 Co2 23 Cr 0.75 Ca 8.6 (L) iCa ?? Mg 1.9, Phos 3.4 Lactate ?? LFT AST 29 AlkPhos 66 T Prot 5.8 (L) ALK 25 Bili 0.4 Alb ?? D.Bili ?? Lab Trends: H/H Results from last 7 days Lab Units 01/11/25 0349 01/10/25 0356 01/09/25 0354 HEMOGLOBIN g/dL 10.3* 10.6* 10.5* HEMATOCRIT % 31.1* 33.1* 32.5* INR Cr Results from last 7 days Lab Units 01/11/25 0349 01/10/25 0356 01/09/25 0354 CREATININE mg/dL 0.75 0.78 0.79 Lactate Results from last 7 days Lab Units 01/06/25 1703 01/06/25 1536 01/06/25 1327 LACTIC ACID, WHOLE B mmol/L 1.9* 1.8* 1.6 Radiographic Interpretation: I have reviewed the imaging above and agree with the radiologist interpretation. Medications reviewed. Vital signs reviewed. Labs reviewed. Assessment/Plan Assessment and Plan: Medical Problems Problem List * (Principal) Metastatic colon cancer to liver (CMS/HCC) Overview Signed 01/08/2025 11:17 AM by Paulo Jay APRN 01/06/25: OR for partial hepatectomy, cholecystectomy,[Pandalai] and hernia repair [Anca] Obesity (BMI 35.0-39.9 without comorbidity) Bowel obstruction (CMS/HCC) Incisional hernia, without obstruction or gangrene Post-op pain Overview Signed 01/08/2025 11:18 AM by Paulo Jay APRN - multimodal pain management - transition PO pain meds as diet advances and prior to discharge Electrolyte abnormality Overview Signed 01/08/2025 11:18 AM by Paulo Jay 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 CMP, Mg, Phos - replete as appropriate - goal: K>4, phos>3, mg>2 Leukocytosis Overview Signed 01/08/2025 11:18 AM by Paulo Jay APRN - common post-op finding likely reactive 2/2 surgery - daily/prn CBC - monitor for s/s of active infection Present on Admission: Metastatic colon cancer to liver (CMS/HCC) Plan: - Advance to FLD - restart coreg - PO pain - D/c epidural - consider HLIV in the PM - Encourage ambulating in the halls Diet: FLD, LR @ 42 GI ppx: PPI Bowel Reg: --- Abx: Cefoxitin Endo: Resistant SSI DVT ppx: SQH Pain: PCEA w/ dilaudid, IV robaxin LDA: Epidural, LUQ EL, PIV, NGT [facility]OT[facility] Edited by: Paulo Jay APRN at 01/11/2025 0746 Dispo: Continue Current Level of Care Paulo Jay APRN Cosigned by Montserrat Connor MD at 01/12/2025 7:41 PM EDT Associated attestation - Montserrat Connor MD - 01/12/2025 7:41 PM EDT Images from the original note were not included. Attending Attestation: I personally saw and evaluated the patient with the resident. I attest to being involved in providing substantive time in patient care. I discussed the case with them and agree with the findings as documented. The discussion and plan reflect my edits and medical decision making. Dr. Montserrat Connor MD Machine Adjuster of Surgical Oncology [facility] * Progress Notes - Linus Hernandez MD - 01/11/2025 7:21 AM EDT Images from the original note were not included. [facility] Department of Surgery Division of General, Endocrine, & Metabolic Surgery Surgery Progress Note 01/11/25 Faith Snyder Subjective Subjective: HPI 59 yo M a PMHx of DM, on insulin with A1c of 7.3, and obesity with metastatic stage 4 colon cancer with metastasis to the liver. 01/06/25: Partial hepatectomy, cholecystectomy [Pandalai] and hernia repair [Anca] Interval: NAEO. VSS. AF. 2L NC. Pt is passing flatus and having Bms. Tolerating a CLD. He is getting OOB and ambulating in the halls. EL drain with 26cc SS output over the past 24 hours from 35 the day prior. Edited by: Linus Hernandez MD at 01/11/2025 0723 Review of Systems: Relevant review of systems was obtained as able and is negative unless stated above in HPI. Objective Objective: Vital signs: Vitals: 01/11/25 0511 BP: (!) 152/67 Pulse: 65 Resp: Temp: SpO2: Physical Exam: Physical Exam Constitutional: Appearance: Normal appearance. Cardiovascular: Rate and Rhythm: Normal rate. Pulmonary: Effort: Pulmonary effort is normal. Abdominal: General: Abdomen is flat. Palpations: Abdomen is soft. Comments: Midline incision clean, dry and intact. Abdominal binder in place. EL drain with SS output Skin: General: Skin is warm and dry. Neurological: General: No focal deficit present. Mental Status: He is alert and oriented to person, place, and time. Psychiatric: Mood and Affect: Mood normal. Behavior: Behavior normal. Intake/Output Summary (Last 24 hours) at 01/11/2025 07 Last data filed at 01/11/2025 0510 Gross per 24 hour Intake 1408 ml Output 976 ml Net 432 ml Lines/Drains/Tubes: Patient Lines/Drains/Airways Status Active Airway None Output by Drain (mL) 01/09/25 07 - 01/09/25 18501/09/25 190 - 01/10/25 0659 01/10/25 07 - 01/10/25 1859 01/10/25 1900 - 01/11/25 0659 01/11/25 07 - 01/11/25 0723 Closed/Suction Drain LUQ Bulb 19 Fr. 30 5 26 Labs in last 18 hours: CBC WBC 10.73 (H) Hb 10.3 (L) Plt 254 Hct 31.1 (L) ANC ?? INR ??, PTT ??, Anti-Xa ?? MCV 92 BMP Na 136 Cl 103 BUN 8 Glu 105 (H) K 3.6 Co2 23 Cr 0.75 Ca 8.6 (L) iCa ?? Mg 1.9, Phos 3.4 Lactate ?? LFT AST 29 AlkPhos 66 T Prot 5.8 (L) ALK 25 Bili 0.4 Alb ?? D.Bili ?? Lab Trends: H/H Results from last 7 days Lab Units 01/11/25 0349 01/10/25 0356 01/09/25 0354 HEMOGLOBIN g/dL 10.3* 10.6* 10.5* HEMATOCRIT % 31.1* 33.1* 32.5* INR Cr Results from last 7 days Lab Units 01/11/25 0349 01/10/25 0356 01/09/25 0354 CREATININE mg/dL 0.75 0.78 0.79 Lactate Results from last 7 days Lab Units 01/06/25 1703 01/06/25 1536 01/06/25 1327 LACTIC ACID, WHOLE B mmol/L 1.9* 1.8* 1.6 Radiographic Interpretation: No imagining today. Medications reviewed. Vital signs reviewed. Labs reviewed. Assessment/Plan Assessment and Plan: Medical Problems Problem List * (Principal) Metastatic colon cancer to liver (CMS/HCC) Overview Signed 01/08/2025 11:17 AM by Paulo Jay APRN 01/06/25: OR for partial hepatectomy, cholecystectomy,[Pandalai] and hernia repair [Anca] Obesity (BMI 35.0-39.9 without comorbidity) Bowel obstruction (CMS/HCC) Incisional hernia, without obstruction or gangrene Post-op pain Overview Signed 01/08/2025 11:18 AM by Paulo Jay APRN - multimodal pain management - transition PO pain meds as diet advances and prior to discharge Electrolyte abnormality Overview Signed 01/08/2025 11:18 AM by Paulo Jay APRN - daily/PRN CMP, Mg, Phos - replete as appropriate - goal: K>4, phos>3, mg>2 Leukocytosis Overview Signed 01/08/2025 11:18 AM by Paulo Jay APRN - common post-op finding likely reactive 2/2 surgery - daily/prn CBC - monitor for s/s of active infection Present on Admission: Metastatic colon cancer to liver (CMS/HCC) Plan: - Flexeril TID - Encourage ambulation - Continue abdominal binder - Rest of management per primary team Edited by: Linus Hernandez MD at 01/11/2025 0721 Dispo: Continue Current Level of Care Linus Hernandez MD Cosigned by Heidi March MD at 01/11/2025 2:42 PM EDT Associated attestation - Heidi March MD - 01/11/2025 2:42 PM EDT I saw and evaluated the patient with the resident/fellow. I discussed the case with the resident/fellow and agree with the findings and plan as documented. The patient progressing well, added boost for nutrition. Expect drains to likely be removed tomorrow. * Care Plan - Valerie Cheung - 01/11/2025 12:30 AM EDT Problem: Adult Inpatient Plan of Care Goal: Plan of Care Review Outcome: Ongoing, Progressing Flowsheets (Taken 01/11/202529) Progress: improving Outcome Evaluation: pateint will give understanding of need to continue to monitor his blood sugarssecond to episodes of running below 100. Plan of Care Reviewed With: patient Goal: Patient-Specific Goal (Individualized) Outcome: Ongoing, Progressing Flowsheets (Taken 01/11/202529) Patient/Family-Specific Goals (Include Timeframe): Patient will have pain managed with pharmacological and non pharmocolgical methods to assist in meeting comfort needs by the end of the shift Individualized Care Needs: Patient to continue to have EPidural to continue to assist in meeting his pain management goals Anxieties, Fears or Concerns: Pain management Goal: Absence of Hospital-Acquired Illness or Injury Outcome: Ongoing, Progressing Intervention: Identify and Manage Fall Risk Flowsheets (Taken 01/11/202529) Safety Promotion/Fall Prevention: activity supervised nonskid shoes/slippers when out of bed clutter-free environment maintained fall prevention program maintained assistive device/personal items within reach room organization consistent safety round/check completed Intervention: Prevent Skin Injury Flowsheets (Taken 01/11/202529) Body Position: neutral body alignment Skin Protection: incontinence pads utilized Intervention: Prevent and Manage VTE (Venous Thromboembolism) Risk Flowsheets (Taken 01/11/202529) VTE Prevention/Management: (Patient continues to be able to off load and shift his wgt with gettingOOB to ambulate with assistance as diaz) medication Intervention: Prevent Infection Flowsheets (Taken 01/11/202529) Infection Prevention: environmental surveillance performed hand hygiene promoted Goal: Optimal Comfort and Wellbeing Outcome: Ongoing, Progressing Intervention: Monitor Pain and Promote Comfort Flowsheets (Taken 01/11/202529) Pain Management Interventions: medication (see MAR) pain pump in use quiet environment facilitated relaxation techniques promoted rest Intervention: Provide Person-Centered Care Flowsheets (Taken 01/11/202529) Trust Relationship/Rapport: care explained choices provided emotional support provided empathic listening provided questions answered questions encouraged reassurance provided thoughts/feelings acknowledged Problem: Skin Injury Risk Increased Goal: Skin Health and Integrity Outcome: Ongoing, Progressing Intervention: Optimize Skin Protection Flowsheets (Taken 01/11/202529) Activity Management: activity adjusted per tolerance activity encouraged up ad diaz Pressure Reduction Techniques: frequent weight shift encouraged Skin Protection: incontinence pads utilized Head of Bed (HOB) Positioning: HOB at 30-45 degrees Intervention: Promote and Optimize Oral Intake Flowsheets (Taken 01/11/2025 0640) Oral Nutrition Promotion: rest periods promoted Nutrition Interventions: diet advanced food preferences provided Problem: Infection Goal: Absence of Infection Signs and Symptoms Outcome: Ongoing, Progressing Intervention: Prevent or Manage Infection Flowsheets (Taken 01/11/202529) Infection Management: aseptic technique maintained Fever Reduction/Comfort Measures: lightweight bedding * Consults - Naima Bourne RN - 01/10/2025 9:13 PM EDT Acute Pain Service Follow-Up Evaluation Faith Snyder is a 59 y.o. male Follow-Up: Follow-up reason: APS rounds Location: Reports no pain at this time. Pain Rating (0-10): 0 Comfort/ Acceptable Pain Level: 0 Acute Pain Service Comments: Patient is currently receiving the following: Epidural Catheter Medication: received 0 doses of Bupivacaine and Hydromorphone totaling 74.85 mL in 24 hours Will continue Patient Controlled Analgesia infusion until primary service decides it is appropriateto discontinue. Epidural Site: not examined Follow-Up: Follow-Up: Acute Pain Service will continue to follow and adjust as needed. Visit Type: Routine Current Analgesic Treatments: Inpatient Analgesics Active Medications Medication Name Dose Route Frequency HYDROmorphone (PF) 10 mcg/mL + bupivacaine (PF) 1.25 mg/mL in 100 mL (PF) [employer] no dose Epidural Continuous hydromorphone 10 mcg/mL + bupivacaine 1.25 mg/mL clinician bolus dose 1-5 mL Epidural PRN for severe pain naloxone (Narcan) 2 mg in sodium chloride 0.9 % 100 mL (0.02 mg/mL) infusion (Urinary Retention or Pruritus) 0.25-1 mcg/kg/hr Intravenous Titrated PRN for urinary retention, itching Rate: 1.36-5.45 mL/hr naloxone (Narcan) injection 0.08 mg 0.08 mg Intravenous q1 min PRN for respiratory depression, For respiratory rate < 10 Epidural Hydromorphone 10 mcg/ml and Bupivacaine 1.25 mg/ml 05/16/09 T8-T9 12cm @ skin - open partialright hepatectomy, incisional hernia repair Blood pressure (!) 147/82, pulse 61, temperature 36.8 ??C (98.2 ??F), temperature source Oral, resp. rate 16, height 1.803 m (5' 11 ), weight 109 kg (240 lb), SpO2 95%. Please Contact Acute Pain Service with any additional questions or concerns via [email or web address]. * Progress Notes - Kaitlin Judd MD - 01/10/2025 1:06 PM EDT Acute Pain Service Pain scale (0-10): 0/10 Side Effects Nausea/Vomiting: no Pruritus: no Confusion: no Sedation: no Numbness/Tingling: no Postural headache: no Additional side effects: no Outcomes Able to take PO: yes Has ambulated: yes Assessment & Plan in the Next 24 hours Assessment: doing well Plan: wean [employer] Plan explained/all questions answered/plan in agreement with: Patient Reason for Block: post-op pain management Patient seen and examined on rounds today with AP Nurse. Patient doing well with adequate pain control. No significant adverse effects noted. Plan to continue weaning epidural infusion. All questionsanswered. Encouraged ambulation and incentive spirometry. * Progress Notes - Linus Hernandez MD - 01/10/2025 11:47 AM EDT Images from the original note were not included. Department of Surgery Division of Surgical Oncology Surgery Progress Note 01/10/25 Faith Snyder Subjective Subjective: HPI 59 yo M a PMHx of DM, on insulin with A1c of 7.3, and obesity with metastatic stage 4 colon cancer with metastasis to the liveropen partial right hepatectomy in combination with a ventral incisional hernia repair. 01/06/25: OR for partial hepatectomy, cholecystectomy,[Pandalai] and hernia repair [Anca] Interval: NAEO. HDS. AF. NGT removed yesterday. Pt denies any further nausea. Pain denies pain, rates 0/10. He now reports passing flatus and is having Bms. Pt was able to ambulate in his room yesterday. I/O 24hr: I: NR O: 900 UOP, NGT 75(removed yesterday), LUQ drain 35(105), BM x2 Edited by: Linus Hernandez MD at 01/10/2025 1143 Review of Systems: Relevant review of systems was obtained as able and is negative unless stated above in HPI. Objective Objective: Vital signs: Vitals: 01/10/25 1112 BP: (!) 141/78 Pulse: 66 Resp: 17 Temp: 36.7 ??C (98 ??F) SpO2: Physical Exam: Physical Exam Constitutional: Appearance: Normal appearance. HENT: Head: Comments: NGT to LCWS Cardiovascular: Rate and Rhythm: Normal rate. Pulmonary: Effort: Pulmonary effort is normal. Abdominal: General: Abdomen is flat. Palpations: Abdomen is soft. Comments: Appropriately tender, Midline abdominal incision C/D/I, abdominal binder in place. EL drain with SS output Skin: General: Skin is warm and dry. Neurological: General: No focal deficit present. Mental Status: He is alert and oriented to person, place, and time. Psychiatric: Mood and Affect: Mood normal. Behavior: Behavior normal. Intake/Output Summary (Last 24 hours) at 01/10/2025 1147 Last data filed at 01/10/2025 1100 Gross per 24 hour Intake 0 ml Output 1175 ml Net -1175 ml Lines/Drains/Tubes: Patient Lines/Drains/Airways Status Active Airway None Output by Drain (mL) 01/08/25 0700 - 01/08/25 1859 01/08/25 1900 - 01/09/25 0659 01/09/25 0700 - 01/09/25 1859 01/09/25 1900 - 01/10/25 0659 01/10/25 0700 - 01/10/25 1147 Closed/Suction Drain LUQ Bulb 19 Fr. 75 30 30 5 Labs in last 18 hours: CBC WBC 12.33 (H) Hb 10.6 (L) Plt 244 Hct 33.1 (L) ANC ?? INR ??, PTT ??, Anti-Xa ?? MCV 92 BMP Na 136 Cl 102 BUN 10 Glu 104 (H) K 4.0 Co2 23 Cr 0.78 Ca 8.3 (L) iCa ?? Mg 2.1, Phos 3.2 Lactate ?? LFT AST 31 AlkPhos 61 T Prot 5.7 (L) ALK 35 Bili 0.5 Alb ?? D.Bili ?? Lab Trends: H/H Results from last 7 days Lab Units 01/10/25 0356 01/09/25 0354 01/08/25 0305 HEMOGLOBIN g/dL 10.6* 10.5* 11.7* HEMATOCRIT % 33.1* 32.5* 35.7* INR Cr Results from last 7 days Lab Units 01/10/25 0356 01/09/25 0354 01/08/25 0305 CREATININE mg/dL 0.78 0.79 0.79 Lactate Results from last 7 days Lab Units 01/06/25 1703 01/06/25 1536 01/06/25 1327 LACTIC ACID, WHOLE B mmol/L 1.9* 1.8* 1.6 Radiographic Interpretation: No imagining today. Medications reviewed. Vital signs reviewed. Labs reviewed. Assessment/Plan Assessment and Plan: Medical Problems Problem List * (Principal) Metastatic colon cancer to liver (CMS/HCC) Overview Signed 01/08/2025 11:17 AM by Paulo Jay APRN 01/06/25: OR for partial hepatectomy, cholecystectomy,[Pandalai] and hernia repair [Anca] Obesity (BMI 35.0-39.9 without comorbidity) Bowel obstruction (CMS/HCC) Incisional hernia, without obstruction or gangrene Post-op pain Overview Signed 01/08/2025 11:18 AM by Paulo Jay APRN - multimodal pain management - transition PO pain meds as diet advances and prior to discharge Electrolyte abnormality Overview Signed 01/08/2025 11:18 AM by Paulo Jay APRN - daily/PRN CMP, Mg, Phos - replete as appropriate - goal: K>4, phos>3, mg>2 Leukocytosis Overview Signed 01/08/2025 11:18 AM by Paulo Jay APRN - common post-op finding likely reactive 2/2 surgery - daily/prn CBC - monitor for s/s of active infection Present on Admission: Metastatic colon cancer to liver (CMS/HCC) Plan: - Advance to CLD today 01/10 - Decrease epidural - Encourage ambulating in the halls - IV antihypertensive Diet: CLD, LR @ 84 GI ppx: PPI Bowel Reg: --- Abx: Cefoxitin Endo: Resistant SSI DVT ppx: SQH Pain: PCEA w/ dilaudid, IV robaxin LDA: Epidural, LUQ EL, PIV, NGT [facility]OT[facility]OT Edited by: Linus Hernandez MD at 01/10/2025 1147 Dispo: Continue Current Level of Care Linus Hernandez MD Cosigned by Montserrat Connor MD at 01/11/2025 10:26 AM EDT Associated attestation - Montserrat Connor MD - 01/11/2025 10:26 AM EDT Images from the original note were not included. Attending Attestation: I personally saw and evaluated the patient with the resident. I attest to being involved in providing substantive time in patient care. I discussed the case with them and agree with the findings as documented. The discussion and plan reflect my edits and medical decision making. Dr. Montserrat Connor MD Machine Adjuster of Surgical Oncology [facility] * Care Plan - Linda Brannon RN - 01/10/2025 11:28 AM EDT Problem: Adult Inpatient Plan of Care Goal: Plan of Care Review Outcome: Ongoing, Progressing Flowsheets Taken 01/10/2025 112 by Linda Brannon RN Progress: no change Outcome Evaluation: pt verbalized understanding of plan of care Taken 01/09/2025 1517 by Nancy Hughes RN Plan of Care Reviewed With: patient Goal: Patient-Specific Goal (Individualized) Outcome: Ongoing, Progressing Flowsheets (Taken 01/10/2025 112) Patient/Family-Specific Goals (Include Timeframe): pt will use call light for assistance on day shift, pt will ambulate in the hallway on day shift, pt will remain free from falls/injuries on day shift Individualized Care Needs: medication administration Anxieties, Fears or Concerns: pain Goal: Absence of Hospital-Acquired Illness or Injury Outcome: Ongoing, Progressing Intervention: Identify and Manage Fall Risk Flowsheets (Taken 01/10/2025 112) Safety Promotion/Fall Prevention: activity supervised assistive device/personal items within reach clutter-free environment maintained fall prevention program maintained nonskid shoes/slippers when out of bed safety round/check completed Intervention: Prevent Skin Injury Flowsheets (Taken 01/10/2025 112) Body Position: position maintained Skin Protection: incontinence pads utilized Intervention: Prevent and Manage VTE (Venous Thromboembolism) Risk Flowsheets (Taken 01/10/2025 112) VTE Prevention/Management: bilateral lower extremity SCDs (sequential compression devices) on Intervention: Prevent Infection Flowsheets (Taken 01/10/2025 112) Infection Prevention: equipment surfaces disinfected hand hygiene promoted rest/sleep promoted single patient room provided Goal: Optimal Comfort and Wellbeing Outcome: Ongoing, Progressing Intervention: Monitor Pain and Promote Comfort Flowsheets (Taken 01/10/2025 112) Pain Management Interventions: quiet environment facilitated pain pump in use Intervention: Provide Person-Centered Care Flowsheets (Taken 01/10/20251120) Trust Relationship/Rapport: care explained choices provided questions answered questions encouraged Problem: Skin Injury Risk Increased Goal: Skin Health and Integrity Outcome: Ongoing, Progressing Intervention: Optimize Skin Protection Flowsheets (Taken 01/10/2025 112) Activity Management: ambulated in street Pressure Reduction Techniques: frequent weight shift encouraged Pressure Reduction Devices: positioning supports utilized Skin Protection: incontinence pads utilized Head of Bed (HOB) Positioning: HOB elevated Intervention: Promote and Optimize Oral Intake Flowsheets (Taken 01/10/20251120) Oral Nutrition Promotion: adaptive equipment use encouraged physical activity promoted Nutrition Interventions: diet advanced Problem: Infection Goal: Absence of Infection Signs and Symptoms Outcome: Ongoing, Progressing Intervention: Prevent or Manage Infection Flowsheets (Taken 01/10/2025 112) Infection Management: aseptic technique maintained Fever Reduction/Comfort Measures: lightweight bedding lightweight clothing Isolation Precautions: precautions maintained * Procedures - Ilaina Lee RN - 01/10/2025 10:19 AM EDTAssociated Order(s): Insert peripheral IV Insert peripheral IV Performed by: Iliana Lee, RN Authorized by: Farhad Castillo MD Hand hygiene: Hand hygiene performed prior to insertion Inserted using aseptic techniques: Yes Preparation: Skin prepped with chg Orientation: Left Location: Forearm Catheter placed: Peripheral IV Catheter size: 20g/2.00in Line Technique: Ultrasound Guidance Number of attempts: 1 IV flushes: Without difficulty and positive blood return noted and IV luer locked Patient tolerance: Patient tolerated the procedure well and there were no complications Patient comfort measures used: Distraction and position of comfort IV site covered with: Transparent semipermeable dressing Education provided to: Patient Comments: All pertinent images were uploaded to PACS. * Consults - Marylin Yang RN - 01/10/2025 8:50 AM EDT Acute Pain Service Follow-Up Evaluation Faith Snyder is a 59 y.o. male Follow-Up: Follow-up reason: APS rounds Pain Rating (0-10): 0 Acute Pain Service Comments: Patient is currently receiving the following: Epidural Catheter Medication: received 0 doses of Bupivacaine and Hydromorphone totaling 95.75 mL in 24 hours Will continue Patient Controlled Analgesia infusion until primary service decides it is appropriateto discontinue. Epidural Site: normal Follow-Up: Follow-Up: Acute Pain Service will continue to follow and adjust as needed. Visit Type: Routine Current Analgesic Treatments: Inpatient Analgesics Active Medications Medication Name Dose Route Frequency HYDROmorphone (PF) 10 mcg/mL + bupivacaine (PF) 1.25 mg/mL in 100 mL (PF) [employer] no dose Epidural Continuous hydromorphone 10 mcg/mL + bupivacaine 1.25 mg/mL clinician bolus dose 1-5 mL Epidural PRN for severe pain naloxone (Narcan) 2 mg in sodium chloride 0.9 % 100 mL (0.02 mg/mL) infusion (Urinary Retention or Pruritus) 0.25-1 mcg/kg/hr Intravenous Titrated PRN for urinary retention, itching Rate: 1.36-5.45 mL/hr naloxone (Narcan) injection 0.08 mg 0.08 mg Intravenous q1 min PRN for respiratory depression, For respiratory rate < 10 Epidural Hydromorphone 10 mcg/ml and Bupivacaine 1.25 mg/ml 4/1/10 T8-T9 12cm @ skin - open partialright hepatectomy, incisional hernia repair Blood pressure (!) 153/76, pulse 61, temperature 36.8 ??C (98.2 ??F), temperature source Oral, resp. rate 18, height 1.803 m (5' 11 ), weight 109 kg (240 lb), SpO2 95%. Please Contact Acute Pain Service with any additional questions or concerns via [employer] orpaTarari [phone]. * Care Plan - Cathryn Lomas RN - 01/09/2025 7:55 PM EDT Problem: Adult Inpatient Plan of Care Goal: Plan of Care Review Outcome: Ongoing, Progressing Flowsheets Taken 01/09/2025 1517 by Nancy Hughes RN Plan of Care Reviewed With: patient Taken 01/09/2025 021 by Marisela Avelar RN Progress: no change Taken 01/06/20251999 by Светлана Gold RN Outcome Evaluation: pt will be free from fall/injury during this shift Goal: Patient-Specific Goal (Individualized) Outcome: Ongoing, Progressing Goal: Absence of Hospital-Acquired Illness or Injury Outcome: Ongoing, Progressing Intervention: Identify and Manage Fall Risk Flowsheets (Taken 01/09/2025 0800 by Nancy Hughes RN) Safety Promotion/Fall Prevention: activity supervised Intervention: Prevent Skin Injury Flowsheets Taken 01/09/2025 194 by Cathryn Lomas RN Body Position: weight shifting Taken 01/08/20251999 by Marisela Avelar, RN Skin Protection: incontinence pads utilized Intervention: Prevent and Manage VTE (Venous Thromboembolism) Risk Flowsheets (Taken 01/09/2025 0400 by Marisela Avelar, RN) VTE Prevention/Management: SCDs (sequential compression devices) off patient refused intervention Intervention: Prevent Infection Flowsheets (Taken 01/09/2025 021 by Marisela Avelar RN) Infection Prevention: environmental surveillance performed equipment surfaces disinfected hand hygiene promoted personal protective equipment utilized rest/sleep promoted Goal: Optimal Comfort and Wellbeing Outcome: Ongoing, Progressing Intervention: Monitor Pain and Promote Comfort Flowsheets (Taken 01/09/2025 0917 by Renata Garcia RN) Pain Management Interventions: pain pump in use Intervention: Provide Person-Centered Care Flowsheets (Taken 01/09/2025 0200 by Marisela Avelar RN) Trust Relationship/Rapport: care explained choices provided emotional support provided questions answered questions encouraged Problem: Skin Injury Risk Increased Goal: Skin Health and Integrity Outcome: Ongoing, Progressing Intervention: Optimize Skin Protection Flowsheets Taken 01/09/20251943 by Cathryn Lomas RN Activity Management: bedrest Taken 01/09/2025 1517 by Nancy Hughes RN Pressure Reduction Techniques: frequent weight shift encouraged heels elevated off bed Head of Bed (HOB) Positioning: HOB elevated Taken 01/08/20251999 by Marisela Avelar RN Skin Protection: incontinence pads utilized Intervention: Promote and Optimize Oral Intake Flowsheets Taken 01/09/2025 1517 by Nancy Hughes RN Oral Nutrition Promotion: adaptive equipment use encouraged Taken 01/06/20251999 by Светлана Gold RN Nutrition Interventions: other (see comments) Problem: Infection Goal: Absence of Infection Signs and Symptoms Outcome: Ongoing, Progressing Intervention: Prevent or Manage Infection Flowsheets Taken 01/09/20251943 by Cathryn Lomas RN Isolation Precautions: protective Taken 01/09/2025218 by Marisela Avelar RN Infection Management: aseptic technique maintained Taken 01/06/20251999 by Светлана Gold RN Fever Reduction/Comfort Measures: lightweight clothing lightweight bedding * Consults - Renata Garcia RN - 01/09/2025 5:43 PM EDT Acute Pain Service Follow-Up Evaluation Faith Snyder is a 59 y.o. male Follow-Up: Follow-up reason: APS rounds Location: abdomen Pain Rating (0-10): 0 Comfort/ Acceptable Pain Level: 3 Acute Pain Service Comments: Patient is currently receiving the following: Epidural Catheter Medication: received 0 doses of Bupivacaine and Hydromorphone totaling 95.95 mL in 24 hours Will continue Patient Controlled Analgesia infusion until primary service decides it is appropriateto discontinue. Follow-Up: Follow-Up: Acute Pain Service will continue to follow and adjust as needed. Visit Type: Routine Current Analgesic Treatments: Inpatient Analgesics Active Medications Medication Name Dose Route Frequency HYDROmorphone (PF) 10 mcg/mL + bupivacaine (PF) 1.25 mg/mL in 100 mL (PF) [employer] no dose Epidural Continuous hydromorphone 10 mcg/mL + bupivacaine 1.25 mg/mL clinician bolus dose 1-5 mL Epidural PRN for severe pain methocarbamol (Robaxin) injection 1,000 mg 1,000 mg Intravenous q8h naloxone (Narcan) 2 mg in sodium chloride 0.9 % 100 mL (0.02 mg/mL) infusion (Urinary Retention or Pruritus) 0.25-1 mcg/kg/hr Intravenous Titrated PRN for urinary retention, itching Rate: 1.36-5.45 mL/hr naloxone (Narcan) injection 0.08 mg 0.08 mg Intravenous q1 min PRN for respiratory depression, For respiratory rate < 10 Epidural Hydromorphone 10 mcg/ml and Bupivacaine 1.25 mg/ml 07/14/09 T8-T9 12cm @ skin - open partialright hepatectomy, incisional hernia repair Blood pressure (!) 147/77, pulse 70, temperature 36.4 ??C (97.6 ??F), temperature source Oral, resp. rate 15, height 1.803 m (5' 11 ), weight 109 kg (240 lb), SpO2 93%. Please Contact Acute Pain Service with any additional questions or concerns via [employer] orpage [phone]. * Care Plan - Nancy Hughes RN - 01/09/2025 3:17 PM EDT Problem: Adult Inpatient Plan of Care Goal: Plan of Care Review Outcome: Ongoing, Progressing Flowsheets (Taken 01/09/2025 1517) Plan of Care Reviewed With: patient Goal: Patient-Specific Goal (Individualized) Outcome: Ongoing, Progressing Goal: Absence of Hospital-Acquired Illness or Injury Outcome: Ongoing, Progressing Goal: Optimal Comfort and Wellbeing Outcome: Ongoing, Progressing Problem: Skin Injury Risk Increased Goal: Skin Health and Integrity Outcome: Ongoing, Progressing Intervention: Optimize Skin Protection Flowsheets (Taken 01/09/2025 1517) Activity Management: activity adjusted per tolerance activity encouraged Pressure Reduction Techniques: frequent weight shift encouraged heels elevated off bed Head of Bed (HOB) Positioning: HOB elevated Intervention: Promote and Optimize Oral Intake Flowsheets (Taken 01/09/2025 151) Oral Nutrition Promotion: adaptive equipment use encouraged * Progress Notes - Kaitlin Judd MD - 01/09/2025 11:49 AM EDT Acute Pain Service Pain scale (0-10): 0/10 Side Effects Nausea/Vomiting: no Pruritus: no Confusion: no Sedation: no Numbness/Tingling: no Postural headache: no Additional side effects: no Outcomes Able to take PO: no (NGT in place) Has ambulated: yes Assessment & Plan in the Next 24 hours Assessment: doing well Plan: continue [employer] at current rate Plan explained/all questions answered/plan in agreement with: Patient Reason for Block: post-op pain management Patient seen and examined on rounds today with AP Nurse. Patient doing well and reports no pain right now. No significant adverse effects noted. Plan to continue epidural infusion at the current rate. All questions answered. Encouraged ambulation and incentive spirometry. * Progress Notes - Cyndi Sol MD - 01/09/2025 11:22 AM EDT Images from the original note were not included. Department of Surgery Division of Surgical Oncology Surgery Progress Note 01/09/25 Faith Snyder Subjective Subjective: HPI 59 yo M a PMHx of DM, on insulin with A1c of 7.3, and obesity with metastatic stage 4 colon cancer with metastasis to the liveropen partial right hepatectomy in combination with a ventral incisional hernia repair. 01/06/25: OR for partial hepatectomy, cholecystectomy,[Pandalai] and hernia repair [Anca] Interval: POD3. VSS, HTN improved with sill mildly elevated. AF, RA. Patient was seen on rounds resting comfortably in bed. He denies pain at this time. He states he has had some reflux with little bit of spit up but denies belching. He is not nauseous and has not vomited. He is having gas and bowel movements. He has been out of bed to the chair. We discussed the goal today of walking in the hallways. I/O 24hr: I: NR O: 800 UOP, NGT 700, LUQ drain 105(20), BM x1 Edited by: Cyndi Sol MD at 01/09/2025 1320 Review of Systems: Relevant review of systems was obtained as able and is negative unless stated above in HPI. Objective Objective: Vital signs: Vitals: 01/09/25 1213 BP: Pulse: 66 Resp: Temp: SpO2: Physical Exam: Physical Exam Vitals reviewed. Constitutional: Appearance: Normal appearance. HENT: Head: Normocephalic. Nose: Comments: NGT with gastric content output Mouth/Throat: Mouth: Mucous membranes are moist. Eyes: Extraocular Movements: Extraocular movements intact. Conjunctiva/sclera: Conjunctivae normal. Cardiovascular: Rate and Rhythm: Normal rate. Pulmonary: Effort: Pulmonary effort is normal. No respiratory distress. Comments: On 1L NC Abdominal: General: There is no distension. Palpations: Abdomen is soft. Comments: Appropriately tender, EL drain serosanguinous, Midline abdominal incision C/D/I, abdominal binder in place Skin: General: Skin is warm. Capillary Refill: Capillary refill takes less than 2 seconds. Neurological: General: No focal deficit present. Mental Status: He is alert and oriented to person, place, and time. Psychiatric: Mood and Affect: Mood normal. Behavior: Behavior normal. Intake/Output Summary (Last 24 hours) at 01/09/2025 1320 Last data filed at 01/09/2025 1200 Gross per 24 hour Intake -- Output 1400 ml Net -1400 ml Lines/Drains/Tubes: Patient Lines/Drains/Airways Status Active Airway None Output by Drain (mL) 01/07/25 0700 - 01/07/25 18501/07/25 1900 - 01/08/25 0659 01/08/25 07 - 01/08/25 18501/08/25 1900 - 01/09/25 0659 01/09/25 0700 - 01/09/25 1320 Closed/Suction Drain LUQ Bulb 19 Fr. 20 75 30 20 Labs in last 18 hours: CBC WBC 14.81 (H) Hb 10.5 (L) Plt 211 Hct 32.5 (L) ANC ?? INR ??, PTT ??, Anti-Xa ?? MCV 92 BMP Na 134 (L) Cl 102 BUN 10 Glu 131 (H) K 4.0 Co2 24 Cr 0.79 Ca 8.3 (L) iCa ?? Mg 1.8 (L), Phos 2.4 (L) Lactate ?? LFT AST 50 AlkPhos 64 T Prot 5.5 (L) ALK 52 (H) Bili 0.6 Alb ?? D.Bili ?? Lab Trends: H/H Results from last 7 days Lab Units 01/09/25 0354 01/08/25 0305 01/07/25 0326 HEMOGLOBIN g/dL 10.5* 11.7* 13.1* HEMATOCRIT % 32.5* 35.7* 40.0 INR Cr Results from last 7 days Lab Units 01/09/25 0354 01/08/25 0305 01/07/25 0326 CREATININE mg/dL 0.79 0.79 0.93 Lactate Results from last 7 days Lab Units 01/06/25 1703 01/06/25 1536 01/06/25 1327 LACTIC ACID, WHOLE B mmol/L 1.9* 1.8* 1.6 Radiographic Interpretation: I have reviewed the imaging above and agree with the radiologist interpretation. === 01/08/25 === XR ABDOMEN 1 VIEW - Narrative - CLINICAL INDICATION: NGT confirmation TECHNIQUE: Supine radiograph of the abdomen. COMPARISON: Abdominal radiograph 01/08/2025 FINDINGS: Limited [id number] abdominal radiograph for the purpose of locating tube position. The tip and side port of the nasogastric tube are within the proximal stomach. - Impression - The tip and side port of the nasogastric tube are within the proximal stomach. CRITICAL RESULT: No. COMMUNICATION: Per this written report. By electronically signing this report, I, the attending physician, attest that I have personally reviewed the images/data for the above examination(s) and agree with the final edited report. Drafted by Ozzie Pink MD on 01/08/2025 11:51 AM Final report signed by Kareem Marie MD on 01/08/2025 11:54 AM Medications reviewed. Vital signs reviewed. Labs reviewed. Assessment/Plan Assessment and Plan: Medical Problems Problem List * (Principal) Metastatic colon cancer to liver (CMS/HCC) Overview Signed 01/08/2025 11:17 AM by Paulo Jay APRN 01/06/25: OR for partial hepatectomy, cholecystectomy,[Pandalai] and hernia repair [Anca] Obesity (BMI 35.0-39.9 without comorbidity) Bowel obstruction (CMS/HCC) Incisional hernia, without obstruction or gangrene Post-op pain Overview Signed 01/08/2025 11:18 AM by Paulo Jay APRN - multimodal pain management - transition PO pain meds as diet advances and prior to discharge Electrolyte abnormality Overview Signed 01/08/2025 11:18 AM by Paulo Jay 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 CMP, Mg, Phos - replete as appropriate - goal: K>4, phos>3, mg>2 Leukocytosis Overview Signed 01/08/2025 11:18 AM by Paulo Jay [employer] MACH[employer] SALES REPRESENTATIVE - common post-op finding likely reactive 2/2 surgery - daily/prn CBC - monitor for s/s of active infection Present on Admission: Metastatic colon cancer to liver (CMS/HCC) Plan: [ ] OOB, ambulate [ ] 6hr clamp trial - KUB this AM, shows gastric bubble. NGT placement this AM - NPO with sips - IV antihypertensive Diet: NPO with sips, LR GI ppx: PPI Bowel Reg: --- Abx: Cefoxitin Endo: Resistant SSI DVT ppx: SQH Pain: PCEA w/ dilaudid, IV robaxin LDA: Epidural, LUQ EL, PIV, NGT PT[facility]OT[facility]in[facility] PT/OT Edited by: Cyndi Sol MD at 01/09/2025 1008 Dispo: Continue Current Level of Care Cyndi Sol MD Cosigned by Montserrat Connor MD at 01/09/2025 2:09 PM EDT Associated attestation - Montserrat Connor MD - 01/09/2025 2:09 PM EDT Images from the original note were not included. Attending Attestation: I personally saw and evaluated the patient with the resident. I attest to being involved in providing substantive time in patient care. I discussed the case with them and agree with the findings as documented. The discussion and plan reflect my edits and medical decision making. [place] trial. Encourage ambulation. Decrease [employer] basal rate. Dr. Montserrat Connor MD Machine Adjuster of Surgical Oncology [facility] * Consults - Renata Garcia RN - 01/09/2025 9:17 AM EDT Acute Pain Service Follow-Up Evaluation Faith Snyder is a 59 y.o. male Follow-Up: Follow-up reason: APS rounds Location: abdomen Pain Rating (0-10): sleeping Comfort/ Acceptable Pain Level: jeremy Acute Pain Service Comments: Patient is currently receiving the following: Epidural Catheter Medication: received 0 doses of Bupivacaine and Hydromorphone totaling 95.8 mL in24 hours Will continue Patient Controlled Analgesia infusion until primary service decides it is appropriateto discontinue. Epidural Site: not examined Follow-Up: Follow-Up: Acute Pain Service will continue to follow and adjust as needed. Visit Type: Routine Current Analgesic Treatments: Inpatient Analgesics Active Medications Medication Name Dose Route Frequency HYDROmorphone (PF) 10 mcg/mL + bupivacaine (PF) 1.25 mg/mL in 100 mL (PF) [employer] no dose Epidural Continuous hydromorphone 10 mcg/mL + bupivacaine 1.25 mg/mL clinician bolus dose 1-5 mL Epidural PRN for severe pain methocarbamol (Robaxin) injection 1,000 mg 1,000 mg Intravenous q8h naloxone (Narcan) 2 mg in sodium chloride 0.9 % 100 mL (0.02 mg/mL) infusion (Urinary Retention or Pruritus) 0.25-1 mcg/kg/hr Intravenous Titrated PRN for urinary retention, itching Rate: 1.36-5.45 mL/hr naloxone (Narcan) injection 0.08 mg 0.08 mg Intravenous q1 min PRN for respiratory depression, For respiratory rate < 10 Epidural Hydromorphone 10 mcg/ml and Bupivacaine 1.25 mg/ml 07/14/09 T8-T9 12cm @ skin - open partialright hepatectomy, incisional hernia repair Blood pressure (!) 156/82, pulse 65, temperature 36.5 ??C (97.7 ??F), temperature source Oral, resp. rate 16, height 1.803 m (5' 11 ), weight 109 kg (240 lb), SpO2 95%. Please Contact Acute Pain Service with any additional questions or concerns via [employer] orpage [phone]. * Care Plan - Marisela Avelar RN - 01/09/2025 2:21 AM EDT Problem: Adult Inpatient Plan of Care Goal: Plan of Care Review Outcome: Ongoing, Progressing Flowsheets (Taken 01/09/2025218) Progress: no change Plan of Care Reviewed With: patient Goal: Patient-Specific Goal (Individualized) Outcome: Ongoing, Progressing Goal: Absence of Hospital-Acquired Illness or Injury Outcome: Ongoing, Progressing Intervention: Identify and Manage Fall Risk Flowsheets (Taken 01/08/20251999) Safety Promotion/Fall Prevention: activity supervised assistive device/personal items within reach clutter-free environment maintained mobility aid in reach lighting adjusted Intervention: Prevent Skin Injury Flowsheets Taken 01/09/2025218 Body Position: weight shifting Taken 01/08/20251999 Skin Protection: incontinence pads utilized Intervention: Prevent and Manage VTE (Venous Thromboembolism) Risk Flowsheets (Taken 01/09/2025218) VTE Prevention/Management: SCDs (sequential compression devices) off patient refused intervention Intervention: Prevent Infection Flowsheets (Taken 01/09/2025218) Infection Prevention: environmental surveillance performed equipment surfaces disinfected hand hygiene promoted personal protective equipment utilized rest/sleep promoted Goal: Optimal Comfort and Wellbeing Outcome: Ongoing, Progressing Intervention: Monitor Pain and Promote Comfort Flowsheets (Taken 01/09/2025199) Pain Management Interventions: pain pump in use relaxation techniques promoted quiet environment facilitated position adjusted Intervention: Provide Person-Centered Care Flowsheets (Taken 01/09/2025199) Trust Relationship/Rapport: care explained choices provided emotional support provided questions answered questions encouraged Problem: Skin Injury Risk Increased Goal: Skin Health and Integrity Outcome: Ongoing, Progressing Intervention: Optimize Skin Protection Flowsheets Taken 01/09/2025199 Activity Management: activity adjusted per tolerance activity encouraged Head of Bed (HOB) Positioning: HOB elevated Taken 01/08/20251999 Skin Protection: incontinence pads utilized Intervention: Promote and Optimize Oral Intake Flowsheets (Taken 01/08/2025 1451 by Nancy Hughes RN) Oral Nutrition Promotion: adaptive equipment use encouraged Problem: Infection Goal: Absence of Infection Signs and Symptoms Outcome: Ongoing, Progressing Intervention: Prevent or Manage Infection Flowsheets (Taken 01/09/2025218) Infection Management: aseptic technique maintained Isolation Precautions: protective * Consults - Shanell Bravo RN - 01/08/2025 4:52 PM EDT Acute Pain Service Follow-Up Evaluation Faith Snyder is a 59 y.o. male Follow-Up: Follow-up reason: APS rounds Location: Asleep Pain Rating (0-10): [facility] Comfort/ Acceptable Pain Level: [facility] Acute Pain Service Comments: Patient is currently receiving the following: Epidural Catheter Medication: received 5 doses of Bupivacaine and Hydromorphone totaling 100.75 mL in 24 hours Will continue Patient Controlled Analgesia infusion until primary service decides it is appropriateto discontinue. Epidural Site: not examined Follow-Up: Follow-Up: Acute Pain Service will continue to follow and adjust as needed. Visit Type: Routine Current Analgesic Treatments: Inpatient Analgesics Active Medications Medication Name Dose Route Frequency HYDROmorphone (PF) 10 mcg/mL + bupivacaine (PF) 1.25 mg/mL in 100 mL (PF) [employer] no dose Epidural Continuous hydromorphone 10 mcg/mL + bupivacaine 1.25 mg/mL clinician bolus dose 1-5 mL Epidural PRN for severe pain methocarbamol (Robaxin) injection 1,000 mg 1,000 mg Intravenous q8h naloxone (Narcan) 2 mg in sodium chloride 0.9 % 100 mL (0.02 mg/mL) infusion (Urinary Retention or Pruritus) 0.25-1 mcg/kg/hr Intravenous Titrated PRN for urinary retention, itching Rate: 1.36-5.45 mL/hr naloxone (Narcan) injection 0.08 mg 0.08 mg Intravenous q1 min PRN for respiratory depression, For respiratory rate < 10 Epidural Hydromorphone 10 mcg/ml and Bupivacaine 1.25 mg/ml 07/14/09 T8-T9 12cm @ skin - open partialright hepatectomy, incisional hernia repair Blood pressure (!) 147/78, pulse 73, temperature 36.5 ??C (97.7 ??F), resp. rate 20, height 1.803 m(5' 11 ), weight 109 kg (240 lb), SpO2 98%. Please Contact Acute Pain Service with any additional questions or concerns via [employer] orpaTarari [phone]. * Care Plan - Nancy Hughes RN - 01/08/2025 2:51 PM EDT Problem: Adult Inpatient Plan of Care Goal: Plan of Care Review Outcome: Ongoing, Progressing Flowsheets (Taken 01/08/2025 145) Plan of Care Reviewed With: patient Goal: Patient-Specific Goal (Individualized) Outcome: Ongoing, Progressing Goal: Absence of Hospital-Acquired Illness or Injury Outcome: Ongoing, Progressing Goal: Optimal Comfort and Wellbeing Outcome: Ongoing, Progressing Problem: Skin Injury Risk Increased Goal: Skin Health and Integrity Outcome: Ongoing, Progressing Intervention: Optimize Skin Protection Flowsheets (Taken 01/08/2025 145) Activity Management: activity adjusted per tolerance activity encouraged Pressure Reduction Techniques: heels elevated off bed Skin Protection: incontinence pads utilized Head of Bed (HOB) Positioning: HOB elevated Intervention: Promote and Optimize Oral Intake Flowsheets (Taken 01/08/2025 145) Oral Nutrition Promotion: adaptive equipment use encouraged * Progress Notes - Dory Lee MD - 01/08/2025 12:46 PM EDT Acute Pain Service Pain management goal: 3/10 Pain scale (0-10): 5/10 Side Effects Nausea/Vomiting: no Pruritus: no Confusion: no Sedation: no Numbness/Tingling: no Postural headache: no Catheter inspected per protocol: yes Additional side effects: no Outcomes Able to take PO: no (NGT to be placed by primary) Has ambulated: yes Assessment & Plan in the Next 24 hours Assessment: doing well Plan: Encourage button use, currently minimal Plan explained/all questions answered/plan in agreement with: Patient Reason for Block: post-op pain management * Progress Notes - Cyndi Sol MD - 01/08/2025 9:57 AM EDT Images from the original note were not included. Department of Surgery Division of Surgical Oncology Surgery Progress Note 01/08/25 Faith Snyder Subjective Subjective: HPI 59 yo M a PMHx of DM, on insulin with A1c of 7.3, and obesity with metastatic stage 4 colon cancer with metastasis to the liveropen partial right hepatectomy in combination with a ventral incisional hernia repair. 01/06: OR for partial hepatectomy, cholecystectomy, and hernia repair [[facility]] Interval: POD2. Emesis x1 overnight, prn zofran added. HTN with systolic to 163. AF, 1L NC. KUB showing gastric dilation, NGT placed. No bowel movement. Pain controlled on current regiment. I/O 24hr: I: NR O: 1000 UOP, LUQ drain 20(30) Edited by: Cyndi Sol MD at 01/08/2025 1002 Review of Systems: Relevant review of systems was obtained as able and is negative unless stated above in HPI. Objective Objective: Vital signs: Vitals: 01/08/25 0831 BP: (!) 168/81 Pulse: 72 Resp: Temp: 37.1 ??C (98.8 ??F) SpO2: 98% Physical Exam: Physical Exam Vitals reviewed. Constitutional: Appearance: Normal appearance. HENT: Head: Normocephalic. Mouth/Throat: Mouth: Mucous membranes are moist. Eyes: Extraocular Movements: Extraocular movements intact. Conjunctiva/sclera: Conjunctivae normal. Cardiovascular: Rate and Rhythm: Normal rate. Pulmonary: Effort: Pulmonary effort is normal. No respiratory distress. Comments: On 1L NC Abdominal: General: There is no distension. Palpations: Abdomen is soft. Comments: Appropriately tender, EL drain serosanguinous, Midline abdominal incision C/D/I, abdominal binder in place Genitourinary: Comments: Wu with CYU Skin: General: Skin is warm. Capillary Refill: Capillary refill takes less than 2 seconds. Neurological: General: No focal deficit present. Mental Status: He is alert and oriented to person, place, and time. Psychiatric: Mood and Affect: Mood normal. Behavior: Behavior normal. Intake/Output Summary (Last 24 hours) at 01/08/2025 1002 Last data filed at 01/08/2025 0557 Gross per 24 hour Intake -- Output 870 ml Net -870 ml Lines/Drains/Tubes: Patient Lines/Drains/Airways Status Active Airway None Output by Drain (mL) 01/06/25 07 - 01/06/25 18501/06/25 1900 - 01/07/25 0659 01/07/25 07 - 01/07/25 18501/07/25 1900 - 01/08/25 0659 01/08/25 07 - 01/08/25 1002 Closed/Suction Drain LUQ Bulb 19 Fr. 30 20 Labs in last 18 hours: CBC WBC 19.28 (H) Hb 11.7 (L) Plt 244 Hct 35.7 (L) ANC ?? INR ??, PTT ??, Anti-Xa ?? MCV 92 BMP Na 137 Cl 103 BUN 13 Glu 188 (H) K 4.0 Co2 22 Cr 0.79 Ca 8.4 (L) iCa ?? Mg 2.1, Phos 2.3 (L) Lactate ?? LFT AST 116 (H) AlkPhos 62 T Prot 5.9 (L) ALK 91 (H) Bili 0.9 Alb ?? D.Bili ?? Lab Trends: H/H Results from last 7 days Lab Units 01/08/25 0305 01/07/25 0326 01/06/25 1616 HEMOGLOBIN g/dL 11.7* 13.1* 12.6* HEMATOCRIT % 35.7* 40.0 38.9* INR Cr Results from last 7 days Lab Units 01/08/25 0305 01/07/25 0326 01/06/25 1626 CREATININE mg/dL 0.79 0.93 0.92 Lactate Results from last 7 days Lab Units 01/06/25 1703 01/06/25 1536 01/06/25 1327 LACTIC ACID, WHOLE B mmol/L 1.9* 1.8* 1.6 Radiographic Interpretation: I have reviewed the imaging above and agree with the radiologist interpretation. Medications reviewed. Vital signs reviewed. Labs reviewed. Assessment/Plan Assessment and Plan: Medical Problems Problem List * (Principal) Metastatic colon cancer to liver (CMS/HCC) Obesity (BMI 35.0-39.9 without comorbidity) Bowel obstruction (CMS/HCC) Incisional hernia, without obstruction or gangrene Present on Admission: None Plan: [ ] OOB, ambulate [ ] remove wu 01/08 - KUB this AM, shows gastric bubble. NGT placement this AM -Advanced to CLD -Restarted home coreg - Removed d5 Diet: NPO with sips, LR GI ppx: PPI Bowel Reg: --- Abx: Cefoxitin Endo: Resistant SSI DVT ppx: SQH Pain: PCEA w/ dilaudid, IV robaxin LDA: Epidural, Wu, EL, PIV PT/OT: Consulted Edited by: Cyndi Sol MD at 01/08/2025 1002 Dispo: Continue Current Level of Care Cyndi Sol MD Cosigned by Montserrat Connor MD at 01/09/2025 2:09 PM EDT Associated attestation - Montserrat Connor MD - 01/09/2025 2:09 PM EDT Images from the original note were not included. Attending Attestation: I personally saw and evaluated the patient with the resident. I attest to being involved in providing substantive time in patient care. I discussed the case with them and agree with the findings as documented. The discussion and plan reflect my edits and medical decision making. NGT output gastric but slightly dark. Was in chair this afternoon. Pain well controlled. Monitor return of bowel function. Dr. Montserrat Connor MD Machine Adjuster of Surgical Oncology [facility] * Consults - Veda Bray RD - 01/08/2025 9:20 AM EDT Adult Nutrition Evaluation Note Faith Snyder 59 y.o. male CSN: [id number] Room/Bed 124/124A Nutrition evaluation type: assessment Reason for evaluation: NPO/CLD x 3 days Hospital course: 59 y/o male with metastatic stage 4 colon cancer with metastasis to the liver s/p partial hepatectomy, cholecystectomy, and hernia repair 01/06. Past medical/ surgical history: Past Medical History[1] Surgical History[2] Additional comments: Diet downgraded back to NPO this am. Noted emesis overnight, KUB showing gastric dilation. NGT in place at visit. Pt asleep. Noted no visible wasting. Vitals and Basic Assessment: BP: (!) 147/79 Temp: 36.4 ??C (97.6 ??F) Oxygen Therapy: Supplemental oxygen O2 Delivery Method: Nasal cannula Jerry Coma Scale Score: 15 Sandeep Scale Score: 19 GI Symptoms: Vomiting Allergies: NKFA Medications: Current Scheduled Medications[3] Labs: Lab Results Component Value Date GLUCOSE 188 (H) 01/08/2025 CALCIUM 8.4 (L) 01/08/2025 NA 137 01/08/2025 K 4.0 01/08/2025 CO2 22 01/08/2025 CL 103 01/08/2025 BUN 13 01/08/2025 CREATININE 0.79 01/08/2025 Lab Results Component Value Date HGBA1C 6.7 12/24/2024 Anthropometrics: Height: 180.3 cm (5' 11 ) Weight: 109 kg (240 lb) BMI (Calculated): 33.49 Weight Evaluation: Obese-Class 1 (BMI 30-34.9) Hawkeye Body Weight (kg): 78.2 Percent Hawkeye Body Weight: 139 Adjusted Body Weight (kg): 85.9 Estimated Needs: Kcal/ K-30 Kcal Provided: 4649-5126 Kcal Needs Based On: Adjusted weight Gm Protein/ Kg : 1.2-1.5 Protein Provided: 103-129 Protein Needs Based On: Adjusted weight Current Nutrition Intake: Diet Order: NPO Diet Experience and Nutrition History: Diet Education Provided: Will monitor Nutrition Focused Physical Exam: Physical exam performed on (date): 01/08/25 (visual) Clavicle (muscle): None Shoulder (muscle): None Thigh (muscle): None Calf (muscle): None Orbital (fat): None Triceps (fat): None Assessment of Malnutrition: Malnutrition Identified: No Nutrition Problem: Inadequate oral intake related to post-op as evidenced by NPO/CLD x 3 days. Status of Nutrition Diagnosis: New Nutrition Interventions and Recommendations: - Advance diet as tolerated to GI soft, CC3. - If unable to advance diet, rec alternative means of nutrition. If TF warranted, rec Impact Peptide 1.5 @ 70 ml/hr (1540 ml/day) provides 2310 kcal, 145g protein, 216g CHO, 98g fat, 1186 ml water, and 154% RDIs vit/min. Nutrition Monitoring and Goals: - Diet advancement & tolerance Acuity Level: [address] [1] Past Medical History: Diagnosis Date Cancer (CMS/HCC) Diabetes (CMS/HCC) High blood pressure [2] Past Surgical History: Procedure Laterality Date APPENDECTOMY COLON SURGERY FOOT SURGERY Left surgery dur to diabetes LEG SURGERY Right surgery dur to diabetes [3] carvedilol, 12.5 mg, Oral, BID heparin (porcine), 5,000 Units, Subcutaneous, q8h GIN insulin glargine-yfgn, 20 Units, Subcutaneous, q24h insulin regular, 10 Units, Subcutaneous, q6h GIN insulin regular, 0-10 Units, Subcutaneous, q6h GIN methocarbamol, 1,000 mg, Intravenous, q8h mupirocin, 1 Application, Each Nostril, BID pantoprazole, 40 mg, Intravenous, Daily sodium phosphate, 15 mmol, Intravenous, Once * Consults - Shanell Bravo RN - 01/08/2025 8:53 AM EDT Acute Pain Service Follow-Up Evaluation Faith Snyder is a 59 y.o. male Follow-Up: Follow-up reason: APS rounds Location: abdomen Pain Rating (0-10): 7 Comfort/ Acceptable Pain Level: 7, Patient states, Pain is tolerable Acute Pain Service Comments: Patient is currently receiving the following: Epidural Catheter Medication: received 10 doses of Bupivacaine and Hydromorphone totaling 105.35 mLin 24 hours Will continue Patient Controlled Analgesia infusion until primary service decides it is appropriateto discontinue. Epidural Site: not examined Follow-Up: Follow-Up: Acute Pain Service will continue to follow and adjust as needed. Visit Type: Routine Current Analgesic Treatments: Inpatient Analgesics Active Medications Medication Name Dose Route Frequency HYDROmorphone (PF) 10 mcg/mL + bupivacaine (PF) 1.25 mg/mL in 100 mL (PF) [employer] no dose Epidural Continuous hydromorphone 10 mcg/mL + bupivacaine 1.25 mg/mL clinician bolus dose 1-5 mL Epidural PRN for severe pain methocarbamol (Robaxin) injection 1,000 mg 1,000 mg Intravenous q8h naloxone (Narcan) 2 mg in sodium chloride 0.9 % 100 mL (0.02 mg/mL) infusion (Urinary Retention or Pruritus) 0.25-1 mcg/kg/hr Intravenous Titrated PRN for urinary retention, itching Rate: 1.36-5.45 mL/hr naloxone (Narcan) injection 0.08 mg 0.08 mg Intravenous q1 min PRN for respiratory depression, For respiratory rate < 10 Epidural Hydromorphone 10 mcg/ml and Bupivacaine 1.25 mg/ml 07/14/09 T8-T9 12cm @ skin - open partialright hepatectomy, incisional hernia repair Blood pressure (!) 168/81, pulse 72, temperature 37.1 ??C (98.8 ??F), resp. rate 20, height 1.803 m(5' 11 ), weight 109 kg (240 lb), SpO2 98%. Please Contact Acute Pain Service with any additional questions or concerns via [employer] orpage [phone]. * Care Plan - Cathryn Lomas RN - 01/08/2025 12:08 AM EDT Problem: Adult Inpatient Plan of Care Goal: Plan of Care Review Outcome: Ongoing, Progressing Flowsheets (Taken 01/06/20251999 by Светлана Gold, JAN) Progress: no change Outcome Evaluation: pt will be free from fall/injury during this shift Plan of Care Reviewed With: patient Goal: Patient-Specific Goal (Individualized) Outcome: Ongoing, Progressing Goal: Absence of Hospital-Acquired Illness or Injury Outcome: Ongoing, Progressing Intervention: Identify and Manage Fall Risk Flowsheets (Taken 01/07/2025 08 by Bonnie Scott, RN) Safety Promotion/Fall Prevention: activity supervised Intervention: Prevent Skin Injury Flowsheets (Taken 01/07/20251999 by Flor Glez) Body Position: turned Intervention: Prevent and Manage VTE (Venous Thromboembolism) Risk Flowsheets (Taken 01/07/2025 08 by Bonnie Scott, RN) VTE Prevention/Management: bilateral lower extremity medication SCDs (sequential compression devices) on compression stockings off Intervention: Prevent Infection Flowsheets (Taken 01/06/20251999 by Светлана Gold, JAN) Infection Prevention: environmental surveillance performed hand hygiene promoted personal protective equipment utilized rest/sleep promoted Goal: Optimal Comfort and Wellbeing Outcome: Ongoing, Progressing Intervention: Monitor Pain and Promote Comfort Flowsheets (Taken 01/07/2025 09 by Shanell Bravo, JAN) Pain Management Interventions: medication (see MAR) pain pump in use Intervention: Provide Person-Centered Care Flowsheets (Taken 01/06/20251999 by Светлана Gold, JAN) Trust Relationship/Rapport: care explained choices provided questions encouraged reassurance provided Problem: Skin Injury Risk Increased Goal: Skin Health and Integrity Outcome: Ongoing, Progressing Intervention: Optimize Skin Protection Flowsheets Taken 01/07/20251999 by Cathryn Lomas RN Activity Management: bedrest Taken 01/07/2025 08 by Bonnie Scott, RN Head of Bed (HOB) Positioning: HOB elevated Taken 01/06/20251999 by Светлана Gold, JAN Pressure Reduction Techniques: heels elevated off bed Intervention: Promote and Optimize Oral Intake Flowsheets (Taken 01/06/20251999 by Светлана Gold, JAN) Nutrition Interventions: other (see comments) Problem: Infection Goal: Absence of Infection Signs and Symptoms Outcome: Ongoing, Progressing Intervention: Prevent or Manage Infection Flowsheets Taken 01/07/20251999 by Cathryn Lomas RN Isolation Precautions: protective Taken 01/06/20251999 by Светлана Gold RN Infection Management: aseptic technique maintained Fever Reduction/Comfort Measures: lightweight clothing lightweight bedding * Consults - Naima Bourne RN - 01/07/2025 9:00 PM EDT Acute Pain Service Follow-Up Evaluation Faith Snyder is a 59 y.o. male Follow-Up: Follow-up reason: APS rounds Location: abdomen Pain Rating (0-10): 7 Comfort/ Acceptable Pain Level: 3 Acute Pain Service Comments: Patient is currently receiving the following: Epidural Catheter Medication: received 12mL doses of Bupivacaine and Hydromorphone totaling 85 mL in 24 hours Will continue Patient Controlled Analgesia infusion until primary service decides it is appropriateto discontinue. Epidural Site: not examined Follow-Up: Follow-Up: Acute Pain Service will continue to follow and adjust as needed. Visit Type: Routine Current Analgesic Treatments: Inpatient Analgesics Active Medications Medication Name Dose Route Frequency HYDROmorphone (PF) 10 mcg/mL + bupivacaine (PF) 1.25 mg/mL in 100 mL (PF) [employer] no dose Epidural Continuous hydromorphone 10 mcg/mL + bupivacaine 1.25 mg/mL clinician bolus dose 1-5 mL Epidural PRN for severe pain methocarbamol (Robaxin) injection 1,000 mg 1,000 mg Intravenous q8h naloxone (Narcan) 2 mg in sodium chloride 0.9 % 100 mL (0.02 mg/mL) infusion (Urinary Retention or Pruritus) 0.25-1 mcg/kg/hr Intravenous Titrated PRN for urinary retention, itching Rate: 1.36-5.45 mL/hr naloxone (Narcan) injection 0.08 mg 0.08 mg Intravenous q1 min PRN for respiratory depression, For respiratory rate < 10 Epidural Hydromorphone 10 mcg/ml and Bupivacaine 1.25 mg/ml 07/14/09 T8-T9 12cm @ skin - open partialright hepatectomy, incisional hernia repair Blood pressure (!) 163/91, pulse 76, temperature 37 ??C (98.6 ??F), temperature source Oral, resp. rate 22, height 1.803 m (5' 11 ), weight 109 kg (240 lb), SpO2 96%. Please Contact Acute Pain Service with any additional questions or concerns via [employer]. * Care Plan - Bonnie Scott RN - 01/07/2025 6:56 PM EDT Problem: Adult Inpatient Plan of Care Goal: Plan of Care Review Outcome: Ongoing, Progressing Flowsheets (Taken 01/06/20251999 by Светлана Gold, JAN) Progress: no change Outcome Evaluation: pt will be free from fall/injury during this shift Plan of Care Reviewed With: patient Goal: Patient-Specific Goal (Individualized) Outcome: Ongoing, Progressing Flowsheets (Taken 01/07/2025 0800) Patient/Family-Specific Goals (Include Timeframe): patient will remain injury free during shift Individualized Care Needs: ongoing Anxieties, Fears or Concerns: none Goal: Absence of Hospital-Acquired Illness or Injury Outcome: Ongoing, Progressing Intervention: Identify and Manage Fall Risk Flowsheets (Taken 01/07/2025 0800) Safety Promotion/Fall Prevention: activity supervised Intervention: Prevent Skin Injury Flowsheets (Taken 01/07/2025 1600 by Myra Pete) Body Position: (up in chair) -- Intervention: Prevent and Manage VTE (Venous Thromboembolism) Risk Flowsheets (Taken 01/07/2025 0800) VTE Prevention/Management: bilateral lower extremity medication SCDs (sequential compression devices) on compression stockings off Intervention: Prevent Infection Flowsheets (Taken 01/06/20251999 by Светлана Gold RN) Infection Prevention: environmental surveillance performed hand hygiene promoted personal protective equipment utilized rest/sleep promoted Goal: Optimal Comfort and Wellbeing Outcome: Ongoing, Progressing Intervention: Monitor Pain and Promote Comfort Flowsheets (Taken 01/07/2025 0900 by Shanell Bravo, RN) Pain Management Interventions: medication (see MAR) pain pump in use Intervention: Provide Person-Centered Care Flowsheets (Taken 01/06/20251999 by Светлана Gold, JAN) Trust Relationship/Rapport: care explained choices provided questions encouraged reassurance provided Problem: Skin Injury Risk Increased Goal: Skin Health and Integrity Outcome: Ongoing, Progressing Intervention: Optimize Skin Protection Flowsheets Taken 01/07/2025 1600 by Myra Pete Activity Management: up in chair Taken 01/07/2025 0800 by Bonnie Scott RN Head of Bed (HOB) Positioning: HOB elevated Taken 01/06/20251999 by Светлана Gold RN Pressure Reduction Techniques: heels elevated off bed Intervention: Promote and Optimize Oral Intake Flowsheets (Taken 01/06/20251999 by Светлана Gold, JAN) Nutrition Interventions: other (see comments) Problem: Infection Goal: Absence of Infection Signs and Symptoms Outcome: Ongoing, Progressing Intervention: Prevent or Manage Infection Flowsheets Taken 01/07/2025 0800 by Bonnie Scott RN Isolation Precautions: precautions maintained Taken 01/06/20251999 by Светлана Gold RN Infection Management: aseptic technique maintained Fever Reduction/Comfort Measures: lightweight clothing lightweight bedding * Hospital Course - Paulo Jay APRN - 01/07/2025 1:37 PM EDT Faith Snyder is a 59 y.o. male with a past medical history of DM, HTN, presented to [facility] as a scheduled surgical intervention for management of metastatic colon cancer to liver. On 01/06/2025, the patient underwent segment 8 partial hepatectomy, segment 6 microwave ablation, open cholecystectomy by Dr. Castillo, ventral incisional hernia repair with phasix mesh and partial omentectomy by Dr. March. The procedure was tolerated well with no intraoperative complications. Surgical Pathology was significant for metastatic moderately differentiated adenocarcinoma, morphologically consistent with the patients known cecum primary. The remaining hospital course was uncomplicated. Discharge medication to highlight: - Insulin [CHANGE]: Patients insulin regimen has changed and has required less post-operatively. Patient will be discharged with 12u Glargine nightly, Lispro 3 unit TID with resistant sliding scale. - Lisinopril [CHANGE]: Patient was taking 20mg daily. Patient was not requiring lisinopril during this hospitalization and should start at 10mg daily for now and can increase as appropriate. - Pain medication: Patient will be discharged with flexeril for regular daily pain management. Patient will also be prescribed oxycodone for as needed breakthrough severe pain. - Lovenox: Patient will be on lovenox for 28 days from the surgery date (01/06/2025) and will end on02/03/25. - Restart home meds as listed below Significant to discharge: - patient will require PT/OT upon return to his facility. He will require intermittent assistance and a rolling walker with wheelchair for longer distances. On 01/13/25, patient has been hemodynamically stable and deemed medically appropriate for discharge.Currently, the patient's pain is well controlled on an oral regimen. They have return of bowel function and are tolerating a regular diet with no nausea/vomiting. There were no difficulties voiding. The patient will be discharged to Nursing facility (specify). Follow-up appointments: - The patient will follow-up with Julia Dotson APRN in clinic in 2 weeks and then [address] Castillo. * Progress Notes - David Kruse MD - 01/07/2025 1:11 PM EDT Acute Pain Service Pain severity now: 8-9/10. Side Effects Nausea/Vomiting: no Pruritus: no Confusion: no Sedation: no Numbness/Tingling: no Postural headache: no Outcomes Assessment & Plan in the Next 24 hours Assessment: increased pain with physical therapy Plan explained/all questions answered/plan in agreement with: Patient Reason for Block: post-op pain management Patient doing well despite high pain scores; 8-9 out of 10 but also states that pain is not real bad . Increased rate this morning to 4 mL/hr. Will continue to monitor and titrate as able with bloodpressure. * Progress Notes - Oziel Morris MD - 01/07/2025 1:00 PM EDT Subjective NAEON. Pain better controlled this morning than yesterday. In chair during rounds, has ambulated some in room but not in hallway. Denies flatus or stool. No N/V. Drain serosanguinous Objective Temp (24hrs), Av.1 ??C (98.7 ??F), Min:36.5 ??C (97.7 ??F), Max:37.6 ??C (99.6 ??F) Vitals: 01/07/25 1136 BP: (!) 155/81 Pulse: 81 Resp: Temp: 36.5 ??C (97.7 ??F) SpO2: 97% Intake/Output Summary (Last 24 hours) at 01/07/2025 1300 Last data filed at 01/07/2025 1136 Gross per 24 hour Intake 1954.64 ml Output 1453 ml Net 501.64 ml Physical Exam Vitals reviewed. Constitutional: General: He is not in acute distress. Appearance: Normal appearance. He is not ill-appearing or toxic-appearing. HENT: Head: Normocephalic and atraumatic. Nose: Nose normal. Mouth/Throat: Mouth: Mucous membranes are moist. Eyes: Extraocular Movements: Extraocular movements intact. Conjunctiva/sclera: Conjunctivae normal. Pupils: Pupils are equal, round, and reactive to light. Cardiovascular: Rate and Rhythm: Normal rate and regular rhythm. Pulses: Normal pulses. Pulmonary: Effort: Pulmonary effort is normal. Abdominal: General: Abdomen is flat. There is no distension. Palpations: Abdomen is soft. Tenderness: There is abdominal tenderness (appropriate). Comments: Incision c/d/I Drain serosanguinous Musculoskeletal: General: Normal range of motion. Cervical back: Neck supple. Skin: General: Skin is warm and dry. Capillary Refill: Capillary refill takes less than 2 seconds. Neurological: General: No focal deficit present. Mental Status: He is alert and oriented to person, place, and time. Cranial Nerves: No cranial nerve deficit. Psychiatric: Mood and Affect: Mood normal. Behavior: Behavior normal. Thought Content: Thought content normal. CBC WBC 18.29 (H) Hb 13.1 (L) Plt 284 Hct 40.0 ANC ?? INR ??, PTT ??, Anti-Xa ?? MCV 91 BMP Na 137 Cl 104 BUN 20 Glu 312 (H) K 4.9 Co2 19 (L) Cr 0.93 Ca 8.5 (L) iCa ?? Mg 1.9, Phos 3.5 Lactate ?? LFT AST 284 (H) AlkPhos 69 T Prot 6.2 (L) ALK 125 (H) Bili 0.8 Alb ?? D.Bili ?? Assessment/Plan Active Hospital Problems Diagnosis Date Noted Metastatic colon cancer to liver (CMS/HCC) 07/23/2024 Assessment: Faith Snyder is a 59 y.o. male w/ PMH T2DM (A1c 7.3), metastatic stage 4 CRC w/ hepatic metastasiess/p open partial R hepatectomy and MWA ([place]) with ventral incisional hernia repair with mesh ([place]) 01/06/25 Plan: - recommend aggressive management of BG to ensure levels below 200 - OOB, ambulate - rest of care per primary team - [facility] will continue to follow Please page on-call resident for any questions or concerns. Oziel Morris MD PGY-5 General Surgery Pager: [phone] Cosigned by Heidi March MD at 01/08/2025 4:19 PM EDT Associated attestation - Heidi March MD - 01/08/2025 4:19 PM EDT I saw and evaluated the patient with the resident/fellow. I discussed the case with the resident/fellow and agree with the findings and plan as documented. * Progress Notes - Jessica Benoit RN - 01/07/2025 11:41 AM EDT Case Management Adult Initial Progress Note Faith Snyder 59 y.o. male CSN: [id number] Admission: 01/06/2025 9:09 AM Primary Problem: Metastatic colon cancer to liver Nondestructive Tester reviewed chart and spoke with patient to complete this Initial Case Management Assessment. PCP: Tayo Jones MD Emergency Contact: Extended Emergency Contact Information Primary Emergency Contact: SWATI SNYDER [place] [employer] Relation: Sister Preferred language: [place] Insurance: Primary Visit Coverage Payer Plan Sponsor Code Group Number Group Name MEDICAID-[facility] MEDICAID TRADITIONAL Primary Visit Coverage Subscriber Subscriber ID Subscriber Name Subscriber N Subscriber Address [id number] FAITH SNYDER [id number] [address] [place] [address] Patient information:lives as a LT resident Daily Living Activities: Functional Status: Moderate assistance Living Arrangements: [facility] Type of Residence: Single Level, assisted/residential care, [facility] [address] [facility] [address] Current DME: Equipment Currently Used at Home: cane, straight Income Information: Income Source: Disabled Income/Expense Information: Income meets expenses Current Resources Utilized: None Housing Circumstances-Z Codes: Housing Circumstances (select all that apply): None Applicable Patient [facility]erred to: [facility] phone [phone] Anticipated Discharge Date: 9/29/25 Patient's Discharge Goal[facility] phone [phone] Assistance Available at Discharge: 05/11 Discharge Transport: medicaid transport Follow Up Transport: medicaid transport Home Health / Home Infusion / Outpatient Dialysis Services: none Living Will/Advance Directive/Power of [employer] Door Frame Assembler /Guardian: No LW SÁNCHEZ is sister Swati Snyder Additional Comments: Nondestructive Tester provided introduction of CM and information on CM role. [facility] Jessica Benoit RN * Significant Event - Jessica Benoit RN - 01/07/2025 11:40 AM EDT 01/07/25 1140 Housing Stability In the last 12 months, was there a time when you were not able to pay the mortgage or rent on time?N In the past 12 months, how many times have you moved where you were living? 0 At any time in the past 12 months, were you homeless or living in a senior living (including now)? N Food Insecurity Within the past 12 months, you worried that your food would run out before you got the money to buymore. Never true Within the past 12 months, the food you bought just didn't last and you didn't have money to get more. Never true Utilities In the past 12 months has the electric, gas, oil, or water [employer] threatened to shut off services in your home? No Transportation Needs In the past 12 months, has lack of transportation kept you from medical appointments or from getting medications? no In the past 12 months, has lack of transportation kept you from meetings, work, or from getting things needed for daily living? No Intimate Partner Violence Within the last year, have you been afraid of your partner or ex-partner? No Within the last year, have you been humiliated or emotionally abused in other ways by your partner or ex-partner? No Within the last year, have you been kicked, hit, slapped, or otherwise physically hurt by your partner or ex-partner? No Within the last year, have you been raped or forced to have any kind of sexual activity by your partner or ex-partner? No Help Needed Would you like help with any of the following needs? (Select ALL that apply) I don't want help withany of these * Progress Notes - Ozzie Hercules - 01/07/2025 11:15 AM EDT PHYSICAL THERAPY EVALUATION Patient Name Faith Snyder Session Date 01/07/2025 Total Treatment Time 39 min PT Discharge Recommendations [facility], Home health PT, Home health OT (Inpatient PT/OT at patient's residential facility) Equipment Recommendations Defer to facility HISTORY Faith Snyder is 59 y.o. male admitted 01/06/2025 for work-up of Metastatic colon cancer to liver. Hospital Course 1. Metastatic colon cancer to liver (CMS/HCC) Procedures (if applicable) 01/06/2025 Procedure(s): HEPATECTOMY, PARTIAL, microwave ablation, cholecystectomy REPAIR, HERNIA, incisional with mesh Past Medical History Patient has a past medical history of Cancer (CMS/HCC), Diabetes (CMS/HCC), and High blood pressure. Past Surgical History Patient has a past surgical history that includes Appendectomy; Leg Surgery (Right); Foot surgery (Left); and Colon surgery. PRECAUTIONS Weight Bearing Precautions (if applicable) ROM Restrictions (if applicable) Medical Precautions Yes Medical Precautions: Fall precautions SUBJECTIVE PARTICIPANTS IN CARE Visitors Present No Subjective Report Pt has NOT been: * Ambulating hallway distances * Ambulating in-room distances * Transferring Bed <> Chair since being admitted to the hospital. Orchid Transplanter (if applicable) Not Applicable HOME LIVING/SET-UP Lives With (roommate) [facility] Home Equipment Cane (patient believes he would have access to other equipment) Home Layout One level Bathroom Layout Bathroom: Tub/Shower: Walk-in shower, Grab bars Bathroom: Toilet: Standard, Grab bars Bathroom: Accessibility: Accessible, Accessible via wheelchair, Accessible via walker Additional Comments PRIOR LEVEL OF FUNCTION Assist at Home (intermittent assist from staff) Level of Mobility Ambulatory- household only Mobility [place] Independent gait with device History of Falls Overall ADL Performance Needs assistance Additional ADL Performance Detail Bathing: Needs assist (intermittent) Upper Body Dressing: Independent Lower Body Dressing: Independent Grooming: Independent Toileting: Independent Eating: Independent PATIENT/FAMILY GOALS OBJECTIVE / INTERVENTIONS PRESENTATION Oxygen Oxygen Therapy: Supplemental oxygen O2 Delivery Method: Nasal cannula O2 Flow Rate (L/min): 2 L/min Lines and Tubes telemetry Closed/Suction Drain LUQ Bulb 19 Fr. (Active) Urethral Catheter Temperature probe;Non-latex 16 Fr. (Active) Epidural Catheter 01/06/25 1008 (Active) Peripheral IV 01/06/25 Left;Posterior Hand (Active) Peripheral IV 01/06/25 Right Wrist (Active) Peripheral IV 01/06/25 Left Hand (Active) Pre-Session Supine, Head of bed elevated, Lines intact RN agreeable to therapy evaluation. Post-Session Call light in reach, Lines intact, RN notified, Sitting in chair, Chair alarm Positioned for comfort; RN aware of session details Bracing (if applicable) PAIN Pain Intensity / Location Pre-Mobility: 10/10 abdominal pain Pain Intensity / Location Post-Mobility: 8/10 abdominal pain Prior to PT's departure: * rest was provided * pt was positioned for comfort * pillow support was provided * RN was informed of pt's pain DELIRIUM SCREENING RASS: Alert and calm Confusion Assessment Method-ICU (CAM-ICU/PCAM-ICU) Feature 3: Altered Level of Consciousness: Negative COGNITION Overall Cognitive Status Within Functional Limits Arousal/Alertness Appropriate responses to stimuli Mood/Behavior Alert Orientation Oriented X4 Command Following Single Step Commands: Consistently Multi-Step Commands: Consistently Method of Communication Verbal Additional Observations MOTOR EXAMINATION RANGE OF MOTION Right Upper Within Functional Limits Left Upper Within Functional Limits Right Lower Within Functional Limits Left Lower Within Functional Limits MANUAL MUSCLE TESTING Right Upper (Not assessed 2/2 abdominal pain) Left Upper (Not assessed 2/2 abdominal pain) Right Lower Within functional limits Left Lower Within functional limits MUSCLE TONE Right Upper WFL Left Upper WFL Right Lower WFL Left Lower WFL SENSORY EXAMINATION Light Touch Sensation Right Upper Intact Left Upper Intact Right Lower Absent Left Lower Absent THERAPEUTIC ACTIVITY Treatment Minutes 24 BED MOBILITY Level of [place] Physical/Non- physical Assist Adaptive Equipment Utilized Rolling/ Turning Moderate assist (50% patient effort) Verbal Cues, Minimal cues Bed rails Scooting/ Bridging Contact guard Verbal Cues, Nonverbal cues (demo/gestures), Minimal cues Supine to Sit Moderate assist (50% patient's effort) Verbal Cues, Nonverbal cues (demo/gestures), Additional assist utilized for safety Bed rails Interventions PT cued for patient to implement roll onto left side prior to completing supine to sit with contralateral knee flexion and UE reach followed by BLE sequencing to transition from left side-lying to sitting edge of bed. PT also cued for LUE push to transition from left side-lying to sitting edge of bed. TRANSFERS Level of [place] Physical/Non- physical Assist Adaptive Equipment Utilized Sit to Stand Minimum assist (75% patient's effort) Verbal Cues, Nonverbal cues (demo/gestures), Minimal cues, Set-up required Walker, rolling Stand to sit Minimum assist (75% patient's effort) Set-up required, Verbal Cues, Nonverbal cues (demo/gestures), Minimal cues Walker, rolling Bed to Chair Minimum assist (75% patient's effort) Stand-pivot Verbal Cues, Nonverbal cues (demo/gestures), Minimal cues, Set-up required Walker, rolling Interventions PT cued for proper hand placement, feet placement, and forward trunk lean to increaseefficiency with STS transfers. Increased time for skilled line management. PT cue for lateral weight shifting to increase efficiency with taking sidesteps to chair. BALANCE Postural Appearance Posture: Within Functional Limits, Stooped posture, Forward head Level of [place] Balance Support Interventions Static Sit Standby assist Right upper extremity support, Left upper extremity support, Feet supported Dynamic Sit Contact guard Right upper extremity support, Left upper extremity support, Feet supported Dynamic Sitting-Balance: Anterior/Posterior weight shifts, Lateral weight shifts Static Stand Contact guard Right upper extremity support, Left upper extremity support Dynamic Stand Minimum assistance Right upper extremity support, Left upper extremity support STANDARDIZED ASSESSMENTS Standardized Assessments Standardized Assessments: AMPA 6-Clicks Mobility Assessment [facility] 6-Clicks Mobility Assessment Difficulty patient has turning over in bed (including adjusting bedclothes, sheets, and blankets)?:A lot Difficulty patient has sitting down on and standing up from a chair with arms (wheelchair, bedside commode, etc.)?: A little Difficulty patient has moving from lying on back to sitting on the side of the bed?: A lot How much help does the patient need moving to and from a bed to a chair (including a wheelchair)?: A little How much help does the patient need to walk in hospital room?: A lot How much help does the patient need climbing 3-5 steps with a railing?: Unable [facility] 6-Clicks Mobility Assessment Total : 13 ASSESSMENT PT FINDINGS Impairments (if identified) Decreased endurance, ventilation, and/or gas exchange, Impaired gait dynamics/performance, Impaired locomotion, Impaired balance, Pain, Impaired functional mobility/transfers Activity Limitations (if identified) Inability to ambulate household distances, Inability to ambulate independently, Inability to transfer independently, Inability to ambulate community distances, Inability to complete ADLs independently Participation Restrictions (if identified) Self-care, Home management Barriers to Discharge (if identified) PT Diagnosis Impaired Functional Mobility Additional Observations Activity Tolerance: Tolerates 30 min activity with multiple rests, Sitting Evaluation/Treatment Tolerance: Patient limited by pain, Patient limited by fatigue Rehab Potential: Good, to achieve stated therapy goals EVAL COMPLEXITY History Profile 1 - 2 personal factors and/or comorbidities Clinical Presentation Evolving clinical presentation with changing characteristics Clinical Decision Making Moderate complexity PT RECOMMENDATIONS Discharge Destination [facility] facility, Home health PT, Home health OT (Inpatient PT/OT at patient's residential facility) Discharge Equipment Defer to facility Additional Recommendations (if applicable) PLAN Planned PT Interventions Balance training, Bed mobility training, Transfer training, Strengthening, Postural re-education, Functional Mobility, Neuromuscular re-education, Gait training PT Frequency 2 - 5 times per week PT Duration 2 weeks PT GOALS PT GOAL DETAILS Time Frame PT Goal 1: Patient will complete supine <> sit with CGA 2 weeks PT Goal 2: Patient will complete STS and BTC transfers with CGA and AAD 2 weeks PT Goal 3: Patient will ambuloate 25 feet with CGA and AAD 2 weeks PT Goal 4: Patient will be independent with understanding of PT discharge recommendations 2 weeks Written by Ozzie Hercules on 01/07/25 at 1:24 PM. * Progress Notes - Katelynn Vale - 01/07/2025 11:14 AM EDT Occupational Therapy Evaluation Patient Name: Faith Snyder Today's Date: 01/07/2025 OT Discharge Recommendations: [facility] facility, Home health OT, Home health PT (Inpatient PT/OT at patient's residential facility) Equipment Recommended: Patient owns appropriate equipment History Faith Snyder is 59 y.o. male admitted 01/06/2025 for work-up of Metastatic colon cancer to liver. Problem List Active Hospital Problems Diagnosis Date Noted Metastatic colon cancer to liver (CMS/HCC) 07/23/2024 Procedures 01/06/2025 Procedure(s): HEPATECTOMY, PARTIAL, microwave ablation, cholecystectomy REPAIR, HERNIA, incisional with mesh Past Medical History Patient has a past medical history of Cancer (CMS/HCC), Diabetes (CMS/HCC), and High blood pressure. Past Surgical History Patient has a past surgical history that includes Appendectomy; Leg Surgery (Right); Foot surgery (Left); and Colon surgery. Precautions Medical Precautions: Fall precautions Subjective Patient and RN agreeable to Occupational Therapy evaluation and treatment session. Patient reports, I can't really see without my glasses, my sister accidentally took them with her. Participants in Care Family/Caregiver Present: No Orchid Transplanter: Not Applicable Presentation Oxygen Therapy: Supplemental oxygen O2 Delivery Method: Nasal cannula O2 Flow Rate (L/min): 2 L/min Lines and Tubes: Closed/Suction Drain LUQ Bulb 19 Fr. (Active) Urethral Catheter Temperature probe;Non-latex 16 Fr. (Active) Epidural Catheter 01/06/25 1008 (Active) Peripheral IV 01/06/25 Left;Posterior Hand (Active) Peripheral IV 01/06/25 Right Wrist (Active) Peripheral IV 01/06/25 Left Hand (Active) Pre-Session: Supine, Head of bed elevated, Lines intact Pre-Session Comments: RN agreeable to therapy evaluation. Post-Session: Call light in reach, Lines intact, RN notified, Sitting in chair, Chair alarm Post-Session Comments: Positioned for comfort; RN aware of session details Home Living/Set-up Lives With: (roommate) [facility] Home Adaptive Equipment: Cane (patient believes he would have access to other equipment) Home Layout: One level Bathroom: Tub/Shower: Walk-in shower, Grab bars Bathroom: Toilet: Standard, Grab bars Bathroom: Accessibility: Accessible, Accessible via wheelchair, Accessible via walker Prior Level of Function Receives Help From: (intermittent assist from staff) Level of Mobility: Ambulatory- household only Mobility [place]: Independent gait with device ADL Performance: Needs assistance Bathing: Needs assist (intermittent) Upper Body Dressing: Independent Lower Body Dressing: Independent Grooming: Independent Toileting: Independent Eating: Independent Patient/Family Goals Statement Pt did not state a goal. Objective Pain Patient reported 10/10 abdominal pain at start of session and during activity. Patient pushed pain pump x1 during session. At end of session, patient reports, My pain is actually going down now however pt did not provide a pain rate. Patient was left positioned in recliner with pillows for comfort, elevation and pressure relief. Delirium Screening RASS: Alert and calm Confusion Assessment Method-ICU (CAM-ICU/PCAM-ICU) Feature 3: Altered Level of Consciousness: Negative Cognition Overall Cognitive Status: Within Functional Limits Arousal/Alertness: Appropriate responses to stimuli Mood/Behavior: Alert Orientation Level: Oriented X4 Single Step Commands: Consistently Multi-Step Commands: Consistently Method of Communication: Verbal Right Upper Extremity Examination RUE ROM Assessment RUE Assessment: Within Functional Limits Manual Muscle Testing - RUE: (Not assessed 2/2 abdominal pain) Sensation Light Touch: Right Upper Extremity: Intact Left Upper Extremity Examination LUE ROM Assessment LUE Assessment: Within Functional Limits Manual Muscle Testing - LUE: (Not assessed 2/2 abdominal pain) Sensation Light Touch: Left Upper Extremity: Intact Right Lower Extremity Examination RLE ROM Assessment RLE Assessment: Within Functional Limits Manual Muscle Testing - RLE: Within functional limits Sensation Light Touch: Right Lower Extremity: Absent Left Lower Extremity Examination LLE ROM Assessment LLE Assessment: Within Functional Limits Manual Muscle Testing: Within functional limits Sensation Light Touch: Left Lower Extremity: Absent Bed Mobility Bed Mobility Exam: Rolling/Turning Level of [place]: Moderate assist (50% patient effort) Physical/Nonphysical Assist: Verbal Cues, Minimal cues Assistive Device: Bed rails Bed Mobility Exam: Scooting/Bridging Level of [place]: Contact guard Physical/Nonphysical Assist: Verbal Cues, Nonverbal cues (demo/gestures), Minimal cues Bed Mobility Exam: Supine to Sit Level of [place]: Moderate assist (50% patient's effort) Physical/Nonphysical Assist: Verbal Cues, Nonverbal cues (demo/gestures), Additional assist utilized for safety Assistive Device: Bed rails Transfers Transfer Exam: Sit to stand Level of [place]: Minimum assist (75% patient's effort) Physical/Nonphysical Assist: Verbal Cues, Nonverbal cues (demo/gestures), Minimal cues, Set-up required Assistive Device: Walker, rolling Transfer Exam: Stand to Sit Level of [place]: Minimum assist (75% patient's effort) Physical/Nonphysical Assist: Set-up required, Verbal Cues, Nonverbal cues (demo/gestures), Minimal cues Assistive Device: Walker, rolling Transfer Exam: Bed to Chair/Chair to Bed Level of [place]: Minimum assist (75% patient's effort) Physical/Nonphysical Assist: Verbal Cues, Nonverbal cues (demo/gestures), Minimal cues, Set-up required Type of Transfer: Stand-pivot Assistive Device: Walker, rolling Balance Postural Appearance Posture: Within Functional Limits, Stooped posture, Forward head Static Sitting Balance Static Sitting-Balance Support: Right upper extremity support, Left upper extremity support, Feet supported Static Sitting-Level of Assistance: Standby assist Dynamic Sitting Balance Dynamic Sitting-Balance Support: Right upper extremity support, Left upper extremity support, Feet supported Dynamic Sitting-Balance: Anterior/Posterior weight shifts, Lateral weight shifts Level of Assistance: Contact guard Static Standing Balance Static Standing-Balance Support: Right upper extremity support, Left upper extremity support (RW) Static Standing-Level of Assistance: Contact guard Dynamic Standing Balance Dynamic Standing-Balance Support: Right upper extremity support, Left upper extremity support (RW) Dynamic Standing-Balance: Lateral weight shifts, Anterior/Posterior weight shifts Dynamic Standing Level of Assistance: Minimum assistance Self-Care Interventions Self Care/Home Management (ADLs) Time Entry: 24 Self-Care Interventions: OT facilitated bed mobility to participate in OOB ADLs and functional mobility in a upright position (see bed mobility section). OT provided physical assistance, line management and environmental adaptations to support navigation in room and decrease risk of falls. OT provided verbal/visual cues for initiation/sequencing/termination and proper body positioning during activity. OT facilitated task modification for grading activities based on patients' level of ability throughout session. Patient engaged in static/dynamic sitting EOB ~6-8 minutes to encourage increased activity tolerance and strength needed for OOB ADLS. Extra time and multiple rest breaks required 2/2 pain management. Therapist educated on log roll and other pain management techniques throughout session. Grooming Grooming Level of Assistance: Contact guard, Setup Grooming Where Assessed: Edge of bed Grooming Interventions: Therapist cued patient to wash face sitting edge of bed. Patient able to wash face ~5 seconds prior to reporting increased fatigue and pain. At end of session, patient completed oral care, hair care and washing face in supported seated position. Extra time required for thouroughness as hair notted and for oral care. Bathing UE Bathing Level of Assistance: Moderate assistance LE Bathing Level of Assistance: Moderate assistance Bathing Interventions: Anticipated based on functional performance and clinical judgement 2/2 abdominal pain and fatigue. UE Dressing UE Dressing Level of Assistance: Maximum assistance UE Dressing Interventions: Patient required Max A to adjust gown in standing position 2/2 increasedpain with UB range of motion. Lower Extremity Dressing Sock Level of Assistance: Maximum assistance LE Dressing Where Assessed: Edge of bed LE Dressing Interventions: Patient able to elevate BLE while therapist adjusted socks. Patient limited by fatigue and abdominal pain. Toileting Toileting Level of Assistance: Minimum assistance, Maximum assistance Toileting Interventions: In preparation for activity demands of toileting, patient completed x 1 trial of low surface sit<>stand to simulate toilet transfer. Patient required Min A, use of RW and verbal cues for hand placement. Patient maintained static standing ~1 minute with CGA for static standing balance. Patient then completed 2-3 side steps from EOB<>recliner to simulate bed to bedside commode transfer with Min A. Patient required verbal/tactile cues for walker management and proper body positioning during transitional movement. Anticipate patient would require Max A for allsteps of toileitng. However, with decreased pain anticipate patient would require decreased amount of physical assistance. Health Management Health Management interventions: Patient educated on importance of simulating daily routines while in house. Therapist encouraged patient to engage in OOB mobility throughout the day to increase tolerance to positional changes, prevent respiratory distress and overall support return to baseline. Standardized Assessments [facility] 6-Click Daily Activities Help from Other: Don/Doff Regular Lower Body Clothings: A lot Help From Other: Bathing: A lot Help From Other: Toileting: A lot Help From Other: Don/Doff Upper Body Clothings: A lot Help From Other: Grooming: Little Help From Other: Eating Meals: None [facility] 6 Click - Daily Activities Score: 15 Assessment Patient cooperative during Occupational Therapy evaluation and treatment session. Patient was limited by pain, fatigue and balance deficits requiring increased levels of physical assistance for ADL and mobility tasks as compared to reported baseline. Patient was previously independent with ADL and mobility tasks, however, is now requiring varying levels of physical assistance for safe completion of mobility and self care. Patient demo'd deficits in ADL performance, functional endurance, functional mobility and would continue to benefit from skilled inpatient OT treatment to address deficits and increase safety and independence. OT Findings: Impaired ADL performance, Impaired IADL performance, Decreased endurance/ventilation/gas exchange, Impaired balance, Impaired functional mobility, Impaired postural/trunk control Evaluation/Treatment Tolerance: Patient limited by pain, Patient limited by fatigue Rehab Potential: Fair, will monitor progress closely Eval Complexity Occupational Profile: Expanded review of medical/therapy records and additional review of physical,cognitive, or psychosocial history Performance Deficits: Activities of daily living (ADLs), Instrumental activities of daily living (IADLs), Leisure Clinical Decision Making: Moderate Overall Eval complexity: Moderate OT Recommendations Discharge Destination: penitentiary facility, Home health OT, Home health PT (Inpatient PT/OT atpatient's residential facility) Discharge Equipment: Patient owns appropriate equipment Plan Progress towards baseline with ADLS/IADLs and functional mobility. Planned OT Interventions ADL retraining, IADL retraining, Balance training, Bed mobility Training, ROM, Strengthening, Transfer training, Stretching, Functional mobility, Caregiver education OT Frequency 2 - 5 times per week OT Duration 2 weeks Goals OT GOAL DETAILS Time Frame OT Goal 1: Pt will complete lower body dressing with min A and AAD PRN. 2 weeks OT Goal 2: Pt will complete grooming while standing at sink with CGA and AAD PRN. 2 weeks OT Goal 3: Patient will complete functional mobility to and from bathroom/toilet with SBA x 1 and AAD 2 weeks OT Goal 4: Pt will complete toileting including clothing management and personal hygiene with min Aand AAD PRN. 2 weeks Written by Katelynn Vale on 01/07/25 at 3:02 PM. * Consults - Shanell Bravo RN - 01/07/2025 9:13 AM EDT Acute Pain Service Follow-Up Evaluation Faith Snyder is a 59 y.o. male Follow-Up: Follow-up reason: APS rounds Location: abdomen Pain Rating (0-10): 10 Comfort/ Acceptable Pain Level: 3 Acute Pain Service Comments: Patient is currently receiving the following: Epidural Catheter Medication: received 7 doses of Bupivacaine and Hydromorphone totaling 41.25 mL in 15.5 hours. Increased continuous rate to 4 mL/hr and encouraged patient to utilize the [employer] button to help manage pain better. Will continue Patient Controlled Analgesia infusion until primary service decides it is appropriateto discontinue. Epidural Site: not examined Follow-Up: Follow-Up: Acute Pain Service will continue to follow and adjust as needed. Visit Type: Routine Current Analgesic Treatments: Inpatient Analgesics Active Medications Medication Name Dose Route Frequency HYDROmorphone (PF) 10 mcg/mL + bupivacaine (PF) 1.25 mg/mL in 100 mL (PF) [employer] no dose Epidural Continuous hydromorphone 10 mcg/mL + bupivacaine 1.25 mg/mL clinician bolus dose 1-5 mL Epidural PRN for severe pain methocarbamol (Robaxin) injection 1,000 mg 1,000 mg Intravenous q8h naloxone (Narcan) 2 mg in sodium chloride 0.9 % 100 mL (0.02 mg/mL) infusion (Urinary Retention or Pruritus) 0.25-1 mcg/kg/hr Intravenous Titrated PRN for urinary retention, itching Rate: 1.36-5.45 mL/hr naloxone (Narcan) injection 0.08 mg 0.08 mg Intravenous q1 min PRN for respiratory depression, For respiratory rate < 10 Epidural Hydromorphone 10 mcg/ml and Bupivacaine 1.25 mg/ml 07/14/09 T8-T9 12cm @ skin - open partialright hepatectomy, incisional hernia repair Blood pressure (!) 161/82, pulse 88, temperature 36.7 ??C (98 ??F), temperature source Oral, resp. rate 21, height 1.803 m (5' 11 ), weight 109 kg (240 lb), SpO2 97%. Please Contact Acute Pain Service with any additional questions or concerns via [employer] [email or web address]. * Progress Notes - Kd Hollins MD - 01/07/2025 9:13 AM EDT Images from the original note were not included. Department of Surgery Division of Surgical Oncology Surgery Progress Note 01/07/25 Faith Snyder Subjective Subjective: HPI 59 yo M a PMHx of DM, on insulin with A1c of 7.3, and obesity with metastatic stage 4 colon cancer with metastasis to the liveropen partial right hepatectomy in combination with a ventral incisional hernia repair. 01/06: OR for partial hepatectomy, cholecystectomy, and hernia repair [[facility]] Interval: NAEO, afebrile, hypertensive to 172/85 overnight, saturating well on 2LNC. Drain with 30cc serosanguinous output. Pain well controlled. Denies nausea. Elevated BG, removed D5 from fluids. I/O 24hr: I: 2.4L IV O: 1L UOP, LUQ drain 30 Edited by: Kd Hollins MD at 01/07/2025 0914 Review of Systems: Relevant review of systems was obtained as able and is negative unless stated above in HPI. Objective Objective: Vital signs: Vitals: 01/07/25 0741 BP: (!) 161/82 Pulse: 88 Resp: 21 Temp: 36.7 ??C (98 ??F) SpO2: 97% Physical Exam: Physical Exam GEN: Not in acute distress EYES: No scleral icterus RESP/CHEST: No increased work of breathing, on 2LNC CV: Normal rate ABD: Soft, appropriately tender to palpation , nondistended. Abdominal binder in place. Midline incision covered with abd without strikethrough. Drain with ss drainage. EXTREMITIES: No edema : wu in place draining yellow urine Neuro: No focal deficits Intake/Output Summary (Last 24 hours) at 01/07/2025 0918 Last data filed at 01/07/2025 0741 Gross per 24 hour Intake 2454.64 ml Output 1253 ml Net 1201.64 ml Lines/Drains/Tubes: Patient Lines/Drains/Airways Status Active Airway None Output by Drain (mL) 01/05/25 0700 - 01/05/25 1859 01/05/25 1900 - 01/06/25 0659 01/06/25 0700 - 01/06/25 1859 01/06/25 1900 - 01/07/25 0659 01/07/25 0700 - 01/07/25 0918 Closed/Suction Drain LUQ Bulb 19 Fr. 30 Labs in last 18 hours: CBC WBC 18.29 (H) Hb 13.1 (L) Plt 284 Hct 40.0 ANC ?? INR ??, PTT ??, Anti-Xa ?? MCV 91 BMP Na 137 Cl 104 BUN 20 Glu 312 (H) K 4.9 Co2 19 (L) Cr 0.93 Ca 8.5 (L) iCa 4.6 Mg 1.9, Phos 3.5 Lactate 1.9 (H) LFT AST 284 (H) AlkPhos 69 T Prot 6.2 (L) ALK 125 (H) Bili 0.8 Alb ?? D.Bili ?? Lab Trends: H/H Results from last 7 days Lab Units 01/07/25 0326 01/06/25 1616 HEMOGLOBIN g/dL 13.1* 12.6* HEMATOCRIT % 40.0 38.9* INR Cr Results from last 7 days Lab Units 01/07/25 0326 01/06/25 1626 CREATININE mg/dL 0.93 0.92 Lactate Results from last 7 days Lab Units 01/06/25 1703 01/06/25 1536 01/06/25 1327 LACTIC ACID, WHOLE B mmol/L 1.9* 1.8* 1.6 Radiographic Interpretation: I have reviewed the imaging above and agree with the radiologist interpretation. Medications reviewed. Vital signs reviewed. Labs reviewed. Assessment/Plan Assessment and Plan: Medical Problems Problem List * (Principal) Metastatic colon cancer to liver (CMS/HCC) Obesity (BMI 35.0-39.9 without comorbidity) Bowel obstruction (CMS/HCC) Incisional hernia, without obstruction or gangrene Present on Admission: None Plan: [ ] OOB, ambulate -Advanced to CLD -Restarted home coreg - Removed d5 Diet: CLD, LR GI ppx: PPI Bowel Reg: --- Abx: Cefoxitin Endo: Resistant SSI DVT ppx: SQH Pain: PCEA w/ dilaudid, IV robaxin LDA: Epidural, Wu, EL, PIV PT/OT: Consulted Edited by: Kd Hollins MD at 01/07/2025 0918 Dispo: Continue Current Level of Care Kd Hollins MD Cosigned by Farhad Castillo MD at 01/07/2025 7:55 PM EDT Associated attestation - Farhad Castillo MD - 01/07/2025 7:55 PM EDT I saw and evaluated the patient with the resident/fellow. I discussed the case with the resident/fellow and agree with the findings and plan as documented. * Consults - Iain Ramires RN - 01/06/2025 8:22 PM EDT Acute Pain Service Follow-Up Evaluation Visit Type: Routine Current Pain Treatment: Follow-Up: Follow-up reason: APS rounds Actions/ Observations: Patient sleeping Treatment per Protocol: Patient received 2 doses in 3 hours 12 ml with epidural. Follow-Up: Follow-Up: Will continue to monitor and adjust as needed. Acute Pain Service Comments: Pain Service comments: Will continue [employer] and/ or infusion until primary service decides it is appropriate to discontinue [employer] and/ or infusion. * Significant Event - Brandon Diggs MD - 01/06/2025 8:01 PM EDT Images from the original note were not included. [facility] Department of Surgery Division of General, Endocrine, & Metabolic Surgery Post Operative Check: Subjective: Procedure: Ventral incisional hernia repair with Phasix mesh, partial omentectomy Patient currently reports Patient currently reports pain is controlled. He is having good urine output through wu catheter. Currently NPO. Denies any nausea or vomiting. No BM or flatus yet. His BP is elevated and has required a couple pushes of labetalol in PACU for SBP > 165. Pain Control: PCEA Objective: Vitals: Vitals: 01/06/251950 BP: (!) 165/84 Pulse: 80 Resp: Temp: SpO2: Physical Exam: GEN: No apparent distress. Lethargic from anesthesia. NEURO: Awake, alert and oriented x3. No focal deficits. HENT: NCAT. Trachea appears midline. EYES: Symmetric lids. No visible conjunctival hemorrhage. CV: Appears well-perfused. Regular rhythm. Normal rate. RESP: Symmetric chest rise. Non-labored breathing. ABD: Soft, nondistended, appropriate abdominal tenderness. Midline incision is covered by bandage without strikethrough. Abdominal binder in place. Drain in LUQ with serosanguinous output. MSK: Moves all extremities. No obvious deformities. SKIN: Warm and dry. Without pallor. PSYCH: Appropriate mood and affect. Normal speech and content. Incisions: covered LTD: PIV L hand, PIV R wrist, PIV L hand, Epidural catheter. Urethral catheter, LUQ drain. Laboratory: CBC WBC @LLVAL1 8(WBC)@ Hgb 12.6 (L) PLT 307 HCT 38.9 (L) Coags: INR ?? PTT ?? antiXa ?? BMP Na 138 Cl 105 BUN 21 Gluc 187 (H) K 5.5 (H) CO2 21 (L) Creat 0.92 Ca 8.4 (L) iCa 4.6 Mg ?? Phos ?? ABG pH 7.35 pCO2 40 pO2 109 SPO2 97 FIO2 ?? HCO3 22 BE -3.1 (L) Lactate 1.9 (H) LFTs AST 306 (H) AlkPhos 73 T Prot 5.9 (L) ALT 101 (H) Bili 0.7 Alb ?? D.Bili ?? Assessment and Plan: Faith Snyder is a 59 y.o. male who is POD 0 s/p Ventral incisional hernia repair with Phasix mesh, partial omentectomy is recovering appropriately in the current post op period. Will continue to monitor. Diet: NPO Anticoagulation/DVT ppx: SubQ heparin and SCDs Pain management: PCEA Level of care: Continue Current Level of Care I have answered and addressed all issues and concerns from the patient and nursing staff. I have notified senior resident/attending diagnostic medical sonographer with any issues or concerns. Brandon Diggs MD, PharmD * Care Plan - Светлана Gold RN - 01/06/2025 8:00 PM EDT Problem: Adult Inpatient Plan of Care Goal: Plan of Care Review 01/06/20252145 by Светлана Gold RN Outcome: Ongoing, Progressing Flowsheets (Taken 01/06/20251999) Progress: no change Outcome Evaluation: pt will be free from fall/injury during this shift Plan of Care Reviewed With: patient 01/06/20252131 by Светлана Gold RN Outcome: Ongoing, Progressing Goal: Patient-Specific Goal (Individualized) Outcome: Ongoing, Progressing Flowsheets (Taken 01/06/20251999) Patient/Family-Specific Goals (Include Timeframe): pt pain will be managed with pain pump and he will report pain<3 during this shift Individualized Care Needs: acute pain Anxieties, Fears or Concerns: none stated Goal: Absence of Hospital-Acquired Illness or Injury Outcome: Ongoing, Progressing Intervention: Identify and Manage Fall Risk Flowsheets (Taken 01/06/20251999) Safety Promotion/Fall Prevention: activity supervised assistive device/personal items within reach clutter-free environment maintained fall prevention program maintained lighting adjusted room organization consistent safety round/check completed Intervention: Prevent Infection Flowsheets (Taken 01/06/20251999) Infection Prevention: environmental surveillance performed hand hygiene promoted personal protective equipment utilized rest/sleep promoted Goal: Optimal Comfort and Wellbeing Outcome: Ongoing, Progressing Intervention: Provide Person-Centered Care Flowsheets (Taken 01/06/20251999) Trust Relationship/Rapport: care explained choices provided questions encouraged reassurance provided Problem: Skin Injury Risk Increased Goal: Skin Health and Integrity Outcome: Ongoing, Progressing Intervention: Optimize Skin Protection Flowsheets (Taken 01/06/20251999) Activity Management: activity adjusted per tolerance Pressure Reduction Techniques: heels elevated off bed Intervention: Promote and Optimize Oral Intake Flowsheets (Taken 01/06/20251999) Nutrition Interventions: other (see comments) Problem: Infection Goal: Absence of Infection Signs and Symptoms Outcome: Ongoing, Progressing Intervention: Prevent or Manage Infection Flowsheets (Taken 01/06/20251999) Infection Management: aseptic technique maintained Fever Reduction/Comfort Measures: lightweight clothing lightweight bedding * Significant Event - Brandon Diggs MD - 01/06/2025 7:51 PM EDT Images from the original note were not included. [facility] Department of Surgery Division of Surgical Oncology Post Operative Check: Subjective: Procedure: Partial hepatectomy, open cholecystectomy Patient currently reports pain is controlled. He is having good urine output through wu catheter. Currently NPO. Denies any nausea or vomiting. No BM or flatus yet. His BP is elevated and has required a couple pushes of labetalol in PACU for SBP > 165. Pain Control: PCEA Objective: Vitals: Vitals: 01/06/251950 BP: (!) 165/84 Pulse: 80 Resp: Temp: SpO2: Physical Exam: GEN: No apparent distress. Lethargic from anesthesia. NEURO: Awake, alert and oriented x3. No focal deficits. HENT: NCAT. Trachea appears midline. EYES: Symmetric lids. No visible conjunctival hemorrhage. CV: Appears well-perfused. Regular rhythm. Normal rate. RESP: Symmetric chest rise. Non-labored breathing. ABD: Soft, nondistended, appropriate abdominal tenderness. Midline incision is covered by bandage without strikethrough. Abdominal binder in place. Drain in LUQ with serosanguinous output. MSK: Moves all extremities. No obvious deformities. SKIN: Warm and dry. Without pallor. PSYCH: Appropriate mood and affect. Normal speech and content. Incisions: covered LTD: PIV L hand, PIV R wrist, PIV L hand, Epidural catheter. Urethral catheter, LUQ drain. Laboratory: CBC WBC @LLVAL1 8(WBC)@ Hgb 12.6 (L) PLT 307 HCT 38.9 (L) Coags: INR ?? PTT ?? antiXa ?? BMP Na 138 Cl 105 BUN 21 Gluc 187 (H) K 5.5 (H) CO2 21 (L) Creat 0.92 Ca 8.4 (L) iCa 4.6 Mg ?? Phos ?? ABG pH 7.35 pCO2 40 pO2 109 SPO2 97 FIO2 ?? HCO3 22 BE -3.1 (L) Lactate 1.9 (H) LFTs AST 306 (H) AlkPhos 73 T Prot 5.9 (L) ALT 101 (H) Bili 0.7 Alb ?? D.Bili ?? Assessment and Plan: Faith Snyder is a 59 y.o. male who is POD 0 s/p Partial hepatectomy, open cholecystectomy is recovering appropriately in the current post op period. Will continue to monitor. Diet: NPO Anticoagulation/DVT ppx: SubQ heparin and SCDs Pain management: PCEA Level of care: Continue Current Level of Care I have answered and addressed all issues and concerns from the patient and nursing staff. I have notified senior resident/attending diagnostic medical sonographer with any issues or concerns. Brandon Diggs MD, PharmD * Anesthesia PACU Signout - Bonnie Leal MD - 01/06/2025 6:36 PM EDT Patient: Faith Snyder Anesthesia Type: general Vitals Value Taken Time BP 167/88 01/06/25 18:15 Temp 36.9 ??C (98.5 ??F) 01/06/25 18:22 Pulse 67 01/06/25 18:28 Resp 19 01/06/25 18:28 SpO2 98 % 01/06/25 18:28 Vitals shown include unfiled device data. Anesthesia PACU Signout Patient location during evaluation: PACU Patient participation: complete - patient participated Level of consciousness: baseline and awake Pain management: adequate (pain score 0-3) Airway patency: natural airway Hydration status: acceptable PONV: none Cardiovascular status: acceptable and hemodynamically stable Respiratory status: acceptable, spontaneous ventilation, unassisted, nonlabored ventilation and nasal cannula Discharge Disposition: admit to inpatient unit Cosigned by Carlin Lemus MD at 01/06/2025 7:28 PM EDT Associated attestation - Carlin Lemus MD - 01/06/2025 7:28 PM EDT Signature only. * Consults - Zev Alexander RN - 01/06/2025 5:50 PM EDT Acute Pain Service Hookup Faith Snyder is a 59 y.o. male Visit Type: Complex Reason for Hookup: Came to see patient for epidural hookup. Blood pressure (!) 152/81, pulse 69, temperature 37.1 ??C (98.7 ??F), resp. rate 18, height 1.803 m(5' 11 ), weight 109 kg (240 lb), SpO2 95%. Medications Inpatient Analgesics Active Medications Medication Name Dose Route Frequency fentaNYL (Sublimaze) injection 25 mcg 25 mcg Intravenous q5 min PRN for pain score of 3-4 out of 10 fentaNYL (Sublimaze) injection 50 mcg 50 mcg Intravenous q5 min PRN for pain score of 5-8 out of 10 HYDROmorphone (Dilaudid) injection 0.5 mg 0.5 mg Intravenous q10 min PRN for pain score of 9-10 outof 10 HYDROmorphone (PF) 10 mcg/mL + bupivacaine (PF) 1.25 mg/mL in 100 mL (PF) [employer] no dose Epidural Continuous hydromorphone 10 mcg/mL + bupivacaine 1.25 mg/mL clinician bolus dose 1-5 mL Epidural PRN for severe pain naloxone (Narcan) 2 mg in sodium chloride 0.9 % 100 mL (0.02 mg/mL) infusion (Urinary Retention or Pruritus) 0.25-1 mcg/kg/hr Intravenous Titrated PRN for urinary retention, itching Rate: 1.36-5.45 mL/hr naloxone (Narcan) injection 0.08 mg 0.08 mg Intravenous q1 min PRN for respiratory depression, For respiratory rate < 10 oxyCODONE (Roxicodone) immediate release tablet 5 mg 5 mg Oral Once PRN for pain score of 3-5 out of 10 oxyCODONE (Roxicodone) immediate release tablet 10 mg 10 mg Oral Once PRN for pain score of 6-8 outof 10 Epidural Hydromorphone 10 mcg/ml and Bupivacaine 1.25 mg/ml 2mls, 1ml Q 10 minutes. T8-T9 12cm @ skin - open partial right hepatectomy, incisional hernia repair [employer] Education: Patient/ family [employer] education done: Yes Pre-hook-up Assessment: Pain Rating (0-10): 7 Comfort/ Acceptable Pain Level: 3 Location: abdomen Epidural insertion site: occlusive dressing intact Epidural motor function: Able to bend knees Hook-up Time: Hooked up at 1750 with 5 ml bolus. Additional Comments: Negative Aspiration. * Op Note - Farhad Castillo MD - 01/06/2025 11:44 AM EDT Operative Note Date: 01/06/25 Location: [place] [facility] Name: Faith Snyder, : 1965, Diagnoses: Pre-op Diagnosis Metastatic colon cancer to liver Post-op Diagnosis Metastatic colon cancer to liver Procedure(s): Segment 8 Liver Resection Segment 7 MWA (100W, 2 min, 100W 40 seconds tract ablation) Intra-operative US to guide resection and ablation Open Cholecystectomy Attending Surgeon(s): Panel 1: * Farhad Castillo - Primary Panel 2: * Heidi March - Primary Credit Operations Specialist(s): Panel 1: * Kd Hollins MD - Resident - Assisting Panel 2: * Oziel Raza MD - Resident - Assisting Anesthesia: General ASA: III Blood Administration: Blood Product Administration History None Estimated Blood Loss: 3 mL Drains: Closed/Suction Drain LUQ Bulb 19 Fr. (Active) Site Description Unable to view 01/07/25799 Dressing Status Dry;Intact 01/07/25799 Drainage Appearance Serosanguineous 01/07/25399 Status To bulb suction 01/07/25399 Output (mL) 10 mL 01/07/25399 Urethral Catheter Temperature probe;Non-latex 16 Fr. (Active) Site Assessment Clean;Skin intact 01/07/25799 CAUTI: Collection Container Standard drainage bag;Collection container below bladder and tubing free of kinks 01/07/25799 CAUTI: Securement Method Securing device (Describe) 01/07/25799 CAUTI: Specimen Collection Port Covered with Alcohol Cap Yes 01/07/25799 CAUTI: Urinary Catheter Indication Yes, meets indication reason 01/07/25799 CAUTI: Urinary Catheter Indication Reasons Recent Urologic, Colorectal or MILK PASTEURIZER surgery 01/07/25799 Output (mL) 175 mL 01/07/25 1524 Implants Type Name Action Serial No. MESH PHASIX ST [id number] - [id number] Implanted Specimen: Specimens ID Source Frozen? 1 Other (specify site) No Description: Partial Omentectomy 2 Other (specify site) No Description: Segment 8 partial hepatectomy 3 Gallbladder No Description: gallbladder Findings: Large ventral incisional hernia, 4 cm segment 8 colorectal liver metastasis, 3 cm segment7 colorectal liver metastasis. Segment 8 lesion was resected fully with a nonanatomic segment 8 resection. Segment 7 lesion was deep within the parenchyma and intraoperative ultrasonography was used to perform a microwave ablation using 100 w for 2 minutes followed by 100 w for 32 seconds for a tract ablation. There was no evidence of peritoneal carcinomatosis. Dome down cholecystectomy was performed without immediate complication. Indications: Faith Snyder is an 59 y.o. male who is having surgery for Metastatic colon cancer to liver. Faith is a very pleasant 59-year-old who was diagnosed with a T4 N0 colon cancer in October of 2022. He underwent a segmental resection and then had adjuvant therapy through December of 2022. In June of 2024 he had a rising CEA and was found to have 2 small liver lesions he completed preoperative systemic therapy and then imaging demonstrated no progression of disease he also had a large ventral incisional hernia from his index operation which required coordination of care with [facility]. After lengthy conversation regarding risks and complications he was brought to the operating room for definitive combined procedure. Narrative: The patient was seen in the preoperative holding area the interval history was updated and consent was reviewed. Epidural anesthesia was placed by the APS team. The patient was brought to the operating room suite placed in the operating room table in a supine position. Bilateral lower extremity sequential compression devices were in place and functional he then had induction of general endotracheal anesthesia. Large-bore peripheral IV access as well as arterial lines were placed by the anesthesia Service. Arms were carefully positioned at the sides. The abdomen was shaved and then prepped anddraped in a sterile fashion after a Wu catheter was placed. A time-out procedure was performed verifying antibiotic and subcutaneous heparin administration. Dr. March performed the opening and closing of the operation and we will be dictated separately. Once the diastasis had been excised and the abdomen was exposed in a Scott retractor was placed to facilitate wide exposure we widely mobilized the left liver by dividing the triangular ligament. We mobilized the right liver mobilizing the right triangular ligament laterally all the way along to the central tendon of the diaphragm. Thisproved to be quite technically demanding as the patient had a very large intra-abdominal mass in the liver itself was very soft and fatty. Ultimately we were able to bring the liver up into the fieldand perform a complete intraoperative ultrasonography which demonstrated a solitary 4 cm lesion located in segment 8 as well as a 3 cm lesion located deep in segment 7. Laparotomy sponges were placedto elevate the liver and a nonanatomic segment 8 resection was performed in the standard fashion using an Aquamantys as well as a LigaSure device in a hemostatic fashion. The specimen itself was handed off the field and bisected to confirm a grossly negative margin. Hemostasis was achieved in the resection cavity and next ultrasonography clearly demonstrated a good access point in plane with the segment 7 lesion and then delivered a microwave ablation probe directly into this at 100 w a 2 minutes this was ablated completely. I then performed an additional tract ablation for a proximally 40 seconds pulling the catheter back every 10 seconds at 100 w. We now performed a dome down cholecystectomy by identifying the gallbladder fossa as well as the cystic artery and the cystic duct. Cystic artery was controlled using a 2-0 Vicryl tie and a small clip the cystic duct was controlled using a right angle clamp, 3-0 Vicryl tie 3-0 PDS suture LigaSure and a small clip. The specimen was handed off the field without complication. The remaining portions of the operation will be dictated by the [facility] service including the closure. I was present scrubbed for the entire duration of my portion of the operation. There were NO signs of surgical site infection (SSI) present at the time of surgery (PATOS). Complications: None; patient tolerated the procedure well. Submitted by: Farhad Castillo MD - 01/07/2025 * Op Note - Heidi March MD - 01/06/2025 11:44 AM EDT Operative Note Date: 01/06/25 Location: [place] OR Name: Faith Snyder : 1965, Diagnoses: Pre-op Diagnosis Metastatic colon cancer to liver Incisional hernia without obstruction or gangrene Post-op Diagnosis Metastatic colon cancer to liver Incisional hernia without obstruction or gangrene Procedure(s): Open complex >10 cm incisional hernia repair with open underlay [id number] Phasix ST OPS Partial omentectomy Excision skin/scar/sac [id number] Attending Surgeon(s): Panel 2: * Heidi March - Primary Credit Operations Specialist(s): Panel 1: * Kd Hollins MD - Resident - Assisting, summer intern Panel 2: * Oziel Raza MD - Fellow - Assisting as no qualified resident available to assist Anesthesia: General ASA: III Blood Administration: Blood Product Administration History None Estimated Blood Loss: 3 mL Drains: Closed/Suction Drain LUQ Bulb 19 Fr. (Active) Site Description Unable to view 01/10/25 193 Dressing Status Clean;Dry 01/11/25 0608 Drainage Appearance Serosanguineous 01/11/25 06 Status To bulb suction 01/11/25 06 Output (mL) 1 mL 01/11/25 06 [REMOVED] Urethral Catheter Temperature probe;Non-latex 16 Fr. (Removed) Site Assessment Clean;Skin intact 01/08/25799 CAUTI: Collection Container Standard drainage bag;Collection container below bladder and tubing free of kinks 01/08/25799 CAUTI: Securement Method Securing device (Describe) 01/08/25799 CAUTI: Specimen Collection Port Covered with Alcohol Cap Yes 01/08/25799 CAUTI: Urinary Catheter Indication Yes, meets indication reason 01/08/25799 CAUTI: Urinary Catheter Indication Reasons Recent Urologic, Colorectal or MILK PASTEURIZER surgery 01/08/25799 Output (mL) 200 mL 01/08/25799 Implants Type Name Action Serial No. MESH PHASIX ST [id number] - [id number] Implanted Specimen: Specimens ID Source Frozen? 1 Other (specify site) No Description: Partial Omentectomy 2 Other (specify site) No Description: Segment 8 partial hepatectomy 3 Gallbladder No Description: gallbladder Findings: Complex multiple large American-cheese hernia defects along the entirety of his prior midline. Lateral width of the hernia was 12 cm by greater than 20. His prior ventral closure was through linea alba which is what led to a subsequent hernia. Once I had excised all of this and opened into the abdomen Dr. Castillo proceeded with his portion of the operation. Intraperitoneal underlay was the most appropriate thing for this patient therefore Phasix OPS was used. Indications: Faith Snyder is an 59 y.o. male who is having surgery for Metastatic colon cancer to liver with large Incisional hernia without obstruction or gangrene. Concomitant operations were required secondary to the need for liver resection. Narrative: The patient identified in the preoperative holding area by 2 identifiers. He was taken to the operating room and placed in supine position on the operating room table. After appropriate hemodynamic monitors were placed he underwent smooth induction of endotracheal anesthesia. His arms were out. Hisabdomen was prepped and draped in standard sterile fashion. Time-out was performed. Hernia was reduc ed as much as possible. As the patient had a very wide defect as well as thin overlying skin I proceeded with a wide elliptical incision. Edges were determined by imbricating the skin. Skin ellipse of 13 x 14 cm including an umbilicus was created with a 10 blade scalpel carried down through subcutaneous tissue with the electrocautery. We then shaved off the subcutaneous off of the underlying hernia sac without entering the hernia sac. The skin pedicle and scar was then passed off the table. In evaluating the patient's hernia it was evident that his prior Prolene suture was in the middle of linea alba and and in fact he had multiple American cheese defects for the entirety of his midline closure proximally 12 wide by 20 long. The patient had tremendous laxity on his abdominal wall therefore I knew because be ready to do an intraoperative evaluation that I would actually excise all of this linea alba back, the hernia sac and edge of linea alba just at the confluence of anterior and posterior fascia was incised. We then circumferentially dissected the hernia sac/attenuated linea alba from the fascial edges taking great care and transecting underlying omentum with a LigaSure. During this due to the American cheese configuration and multiple areas where the omentum was actually denselyadhered to these hernia sacs we performed a partial omentectomy. The partial omentectomy specimen was then passed off the table. The transection of our omentum margin was. Once I had completely lysedall anterior abdominal adhesions and removed all her evaluated the abdomen with no evidence of additional bleeding. The case was then turned over to Dr. Castillo and I would return at the end. Once the patient had completed his partial hepatectomy and cholecystectomy, there had been no bile spillage or succus. I re-evaluated the abdomen with no evidence of bleeding or bile. Again the midline had minimal to no tension on it. I elected not to open any retro muscular pockets however I did want to support his abdominal wall rather than just primary closure as subsequent chemotherapy or treatments would increase his risk of future incisional hernia recurrence. I elected to use a Phasix STLPS 15 x 30 cm. This would allow for 7.5 cm of overlap under the left and right rectus muscle respectively as well as a send my entire incision which was xiphoid all the way down to a suprapubic with30 cm of length. The remaining a small segment of omentum was laid over the small bowel. The mesh with the OPS a fish was placed into the abdomen. Cardinal sutures at both the cranial and caudal portion with 1. PDS sutures were anchored laterally I brought to the fascial edge to the midline ex in 7-1/2 cm from the fascial edge I anchored the mesh to the undersurface of the peritoneum under the left and right rectus muscle respectively. At the circumferentially edge of the mesh I then ran in fixate it to the peritoneum adjacent using a 2-0 PDS suture. This was run circumferentially. The inner fish was then removed from the mesh. The anterior fascia was then closed in interrupted [id number] fashion with the midline pexing to the bilaminar Phasix mesh as part of the OPS system. In doing so there was no evidence of bleeding. Our subcutaneous area was evaluated. There was no evidence ofadditional bleeding. A 19 Amharic Linus drain was placed in the subcutaneous tissue marked by nylon suture. Skin was then closed in layers including a 2-0 Vicryl quilting to reduce space followedby 3-0 Vicryl deep dermal and a 4-0 running Stratafix suture covered by Dermabond. The patient tolerated the procedure well. He was awakened from anesthesia and extubated without difficulty. I was present for the entirety of my portions of the operation. Dr. Raza was integral in this operation and participated as no qualified resident was available. He assisted with not only the incisional hernia work but as well as the cholecystectomy and partial omentectomy. There were NO signs of surgical site infection (SSI) present at the time of surgery (PATOS). Complications: None; patient tolerated the procedure well. Submitted by: Heidi March MD - 01/11/2025 * Brief Op Note - Oziel Raza MD - 01/06/2025 11:44 AM EDT Date: 01/06/25 Location: [facility] Name: Faith Snyder, : 1965, Diagnoses: Pre-op Diagnosis Metastatic colon cancer to liver Post-op Diagnosis Metastatic colon cancer to liver Procedure(s): Ventral incisional hernia repair with Phasix mesh Partial omentectomy Attending Surgeon(s): Panel 1: * Farhad Castillo - Primary Panel 2: * Heidi March - Primary Credit Operations Specialist(s): Panel 1: * Kd Hollins MD - Resident - Assisting Panel 2: * Oziel Raza MD - Resident - Assisting Anesthesia: General ASA: III Blood Administration: Blood Product Administration History None Estimated Blood Loss: 3 mL Drains: Closed/Suction Drain LUQ Bulb 19 Fr. (Active) Urethral Catheter Temperature probe;Non-latex 16 Fr. (Active) Implants Type Name Action Serial No. MESH PHASIX ST [id number] - [id number] Implanted Specimen: Specimens ID Source Frozen? 1 Other (specify site) No Description: Partial Omentectomy 2 Other (specify site) No Description: Segment 8 partial hepatectomy 3 Gallbladder No Description: gallbladder Complications: None; patient tolerated the procedure well. Submitted by: Oziel Raza MD - 01/06/2025 Cosigned by Heidi March MD at 01/11/2025 3:24 PM EDT Associated attestation - Heidi March MD - 01/11/2025 3:24 PM EDT I was present for the entirety of the procedure(s). * Brief Op Note - Kd Hollins MD - 01/06/2025 11:44 AM EDT Date: 01/06/25 Location: [facility] Name: Faith Snyder, : 1965, Diagnoses: Pre-op Diagnosis Metastatic colon cancer to liver Post-op Diagnosis Metastatic colon cancer to liver Procedure(s): Segment 8 partial hepatectomy Segment 6 microwave ablation Open cholecystectomy Attending Surgeon(s): Panel 1: * Farhad Castillo - Primary Panel 2: * Heidi March - Primary Credit Operations Specialist(s): Panel 1: * Kd Hollins MD - Resident - Assisting Panel 2: * Oziel Raza MD - Resident - Assisting Anesthesia: General ASA: III Blood Administration: Blood Product Administration History None Estimated Blood Loss: 3 mL Drains: Closed/Suction Drain LUQ Bulb 19 Fr. (Active) Urethral Catheter Temperature probe;Non-latex 16 Fr. (Active) Implants Type Name Action Serial No. MESH PHASIX ST [id number] - [id number] Implanted Specimen: Specimens ID Source Frozen? 1 Other (specify site) No Description: Partial Omentectomy 2 Other (specify site) No Description: Segment 8 partial hepatectomy 3 Gallbladder No Description: gallbladder Findings: Segment 8 metastasis with grossly negative margins Segment 6 metastasis overlying hepatic vein s/p MWA Hepatic steatosis Complications: None; patient tolerated the procedure well. Submitted by: Kd Hollins MD - 01/06/2025 Cosigned by Farhad Castillo MD at 01/07/2025 8:15 AM EDT Associated attestation - Farhad Casitllo MD - 01/07/2025 8:15 AM EDT I saw and evaluated the patient with the resident/fellow. I discussed the case with the resident/fellow and agree with the findings and plan as documented. * H&P - Oziel Raza MD - 01/06/2025 9:56 AM EDT History and physical from clinic on December 24 reviewed and up-to-date. No new changes from ourstandpoint. Consent for the hernia portion of the operation is in media tab. Patient had no new questions. Okay to proceed to the operating room from our standpoint. Additional H&P by primary team on same date. Cosigned by Heidi March MD at 01/06/2025 3:48 PM EDT Associated attestation - Heidi March MD - 01/06/2025 3:48 PM EDT I saw and evaluated the patient with the resident/fellow. I discussed the case with the resident/fellow and agree with the findings and plan as documented. * Interval H&P Note - Farhad Castillo MD - 01/06/2025 9:41 AM EDT H&P reviewed. The patient was examined and there are no changes to the H&P and the surgicalsite was marked. Source Note - Kalie Clemente - 12/24/2024 9:15 AM EDT Surgical Oncology Outpatient Chief complaint: Faith Snyder is a 59 y.o. Stage IV Colon [...] RIGHT COLON AND TERMINAL ILEUM, RIGHT HEMICOLECTOMY ([id number]; 11/09/2022): - INVASIVE MODERATELY DIFFERENTIATED ADENOCARCINOMA OF [...] is 35.48 kg/m??. Metastatic Cancer Incisional Hernia Kalie Clemente, MS3 12/24/24 8:49 AM [1] Past Medical History: Diagnosis Date Diabetes (CMS/HCC) High blood pressure [2] Past Surgical History: Procedure Laterality Date APPENDECTOMY FOOT SURGERY Left surgery dur to diabetes LEG SURGERY Right surgery dur to diabetes [3] No Known Allergies Cosigned by Farhad Castillo MD at 12/25/2024 9:19 AM EDT documented in this encounter Plan of Treatment Upcoming Encounters Date Type Department Care Team (Late st Contact Info) Description 05/13/2025 7:30 AM EST Appointment [facility] [address] [place] [address] 05/13/2025 10:15 AM EST [facility] [address] [place] [address] Farhad Castillo MD [address] [id number] documented as of this encounter Goals Goal Patient Goal Type Associated Problems Recent Progress Patient-Stated? Author Autogenera inessa Goal Care Plan Autogenerated Problem No Farhad Castillo MD documented as of this encounter Procedures Procedure Name Priority Date/Time Associated Diagnosis Comments POCT GLUCOSE METER UNSOLICITED RESULTS Routine 01/13/2025 7:02 AM EDT CBC W/O DIFFERENTIAL Routine 01/13/2025 3:37 AM EDT PHOSPHORUS, PLASMA Routine 01/13/2025 3: 37 AM EDT MAGNESIUM, PLASMA Routine 01/13/2025 3:3 7 AM EDT COMPREHENSIVE METABOLIC PANEL, PLASMA Routine 01/13/2025 3:37 AM EDT POCT GLUCOSE METER UNSOLICITED RESULTS Routine 01/12/2025 7:26 PM EDT POCT GLUCOSE METER UNSOLICITED RESULTS Routine 01/12/2025 4:09 PM EDT POCT GLUCOSE METER UNSOLICITED RESULTS Routine 01/12/2025 11:54 AM EDT POCT GLUCOSE METER UNSOLICITED RESULTS Routine 01/12/2025 8:08 AM EDT CBC W/O DIFFERENTIAL Routine 01/12/2025 3:39 AM EDT PHOSPHORUS, PLASMA Routine 01/12/2025 3: 39 AM EDT MAGNESIUM, PLASMA Routine 01/12/2025 3:3 9 AM EDT COMPREHENSIVE METABOLIC PANEL, PLASMA Routine 01/12/2025 3:39 AM EDT POCT GLUCOSE METER UNSOLICITED RESULTS Routine 01/11/2025 7:57 PM EDT POCT GLUCOSE METER UNSOLICITED RESULTS Routine 01/11/2025 4:42 PM EDT POCT GLUCOSE METER UNSOLICITED RESULTS Routine 01/11/2025 11:33 AM EDT POCT GLUCOSE METER UNSOLICITED RESULTS Routine 01/11/2025 9:01 AM EDT POCT GLUCOSE METER UNSOLICITED RESULTS Routine 01/11/2025 5:37 AM EDT CBC W/O DIFFERENTIAL Routine 01/11/2025 3:49 AM EDT PHOSPHORUS, PLASMA Routine 01/11/2025 3: 49 AM EDT MAGNESIUM, PLASMA Routine 01/11/2025 3:4 9 AM EDT COMPREHENSIVE METABOLIC PANEL, PLASMA Routine 01/11/2025 3:49 AM EDT POCT GLUCOSE METER UNSOLICITED RESULTS Routine 01/11/2025 1:02 AM EDT POCT GLUCOSE METER UNSOLICITED RESULTS Routine 01/11/2025 12:34 AM EDT POCT GLUCOSE METER UNSOLICITED RESULTS Routine 01/10/2025 11:35 PM EDT POCT GLUCOSE METER UNSOLICITED RESULTS Routine 01/10/2025 5:12 PM EDT POCT GLUCOSE METER UNSOLICITED RESULTS Routine 01/10/2025 11:26 AM EDT INSERT PERIPHERAL IV Routine 01/10/2025 10:19 AM EDT POCT GLUCOSE METER UNSOLICITED RESULTS Routine 01/10/2025 6:16 AM EDT CBC W/O DIFFERENTIAL Routine 01/10/2025 3:56 AM EDT PHOSPHORUS, PLASMA Routine 01/10/2025 3: 56 AM EDT MAGNESIUM, PLASMA Routine 01/10/2025 3:5 6 AM EDT COMPREHENSIVE METABOLIC PANEL, PLASMA Routine 01/10/2025 3:56 AM EDT POCT GLUCOSE METER UNSOLICITED RESULTS Routine 01/09/2025 11:45 PM EDT POCT GLUCOSE METER UNSOLICITED RESULTS Routine 01/09/2025 5:44 PM EDT POCT GLUCOSE METER UNSOLICITED RESULTS Routine 01/09/2025 11:55 AM EDT CBC W/O DIFFERENTIAL Routine 01/09/2025 3:54 AM EDT PHOSPHORUS, PLASMA Routine 01/09/2025 3: 54 AM EDT MAGNESIUM, PLASMA Routine 01/09/2025 3:5 4 AM EDT COMPREHENSIVE METABOLIC PANEL, PLASMA Routine 01/09/2025 3:54 AM EDT POCT GLUCOSE METER UNSOLICITED RESULTS Routine 01/08/2025 11:55 PM EDT POCT GLUCOSE METER UNSOLICITED RESULTS Routine 01/08/2025 6:21 PM EDT POCT GLUCOSE METER UNSOLICITED RESULTS Routine 01/08/2025 2:21 PM EDT XR ABDOMEN 1 VIEW STAT 01/08/2025 10: 12 AM EDT POCT GLUCOSE METER UNSOLICITED RESULTS Routine 01/08/2025 8:32 AM EDT XR ABDOMEN 1 VIEW STAT 01/08/2025 8:2 0 AM EDT CBC W/O DIFFERENTIAL Routine 01/08/2025 3:05 AM EDT PHOSPHORUS, PLASMA Routine 01/08/2025 3: 05 AM EDT MAGNESIUM, PLASMA Routine 01/08/2025 3:0 5 AM EDT COMPREHENSIVE METABOLIC PANEL, PLASMA Routine 01/08/2025 3:05 AM EDT POCT GLUCOSE METER UNSOLICITED RESULTS Routine 01/08/2025 2:59 AM EDT POCT GLUCOSE METER UNSOLICITED RESULTS Routine 01/07/2025 8:31 PM EDT POCT GLUCOSE METER UNSOLICITED RESULTS Routine 01/07/2025 5:05 PM EDT POCT GLUCOSE METER UNSOLICITED RESULTS Routine 01/07/2025 12:22 PM EDT POCT GLUCOSE METER UNSOLICITED RESULTS Routine 01/07/2025 5:19 AM EDT CBC W/O DIFFERENTIAL Routine 01/07/2025 3:26 AM EDT PHOSPHORUS, PLASMA Routine 01/07/2025 3: 26 AM EDT MAGNESIUM, PLASMA Routine 01/07/2025 3:2 6 AM EDT COMPREHENSIVE METABOLIC PANEL, PLASMA Routine 01/07/2025 3:26 AM EDT POCT GLUCOSE METER UNSOLICITED RESULTS Routine 01/06/2025 11:31 PM EDT BLOOD GAS PANEL, ARTERIAL STAT 01/06/2025 5:03 PM EDT POCT GLUCOSE METER UNSOLICITED RESULTS Routine 01/06/2025 4:40 PM EDT NON-INVASIVE VENTILATION Routine 01/06/2025 4:33 PM EDT COMPREHENSIVE METABOLIC PANEL, PLASMA Routine 01/06/2025 4:26 PM EDT CBC W/O DIFFERENTIAL Routine 01/06/2025 4:16 PM EDT BLOOD GAS PANEL, ARTERIAL Routine 01/06/2025 3:36 PM EDT BLOOD GAS PANEL, ARTERIAL Routine 01/06/2025 1:27 PM EDT SURGICAL PATHOLOGY EXAM Routine 01/06/2025 12:59 PM EDT Metastatic colon cancer to liver (CMS/HCC) SURGICAL PATHOLOGY EXAM Routine 01/06/2025 12:13 PM EDT Metastatic colon cancer to liver (CMS/HCC) GA RPR AA HERNIA 1ST 3-10 CM REDUCIBLE 01/06/2025 10:47 AM EDT Metastatic colon cancer to liver (CMS/HCC) Incisional hernia without obstruction or gangrene GA RESEC LIVER,PART LOBECTOMY 01/06/2025 10:47 AM EDT Metastatic colon cancer to liver (CMS/HCC) Incisional hernia without obstruction or gangrene POCT GLUCOSE METER UNSOLICITED RESULTS Routine 01/06/2025 9:37 AM EDT documented in this encounter Results * (ABNORMAL) POCT glucose meter (01/13/2025 7:02 AM EDT) POCT Glucose 134(H) 74 - 99 mg/dL 01/13/2025 7:03 AM EDT [facility] Comment:Accuracy of a glucos e result obtained from a capillary whole blood specimen relies upon adequate, non-compromised capillary blood flow. If the capillary glucose result is not consistent with the patient's clinical signs and symptoms, glucose testing should be repeated with either an arterial or venous sample on the glucometer or sent to the main labortory for testing. Comment 01/13/2025 7:03 AM EDT [facility] Dowel Pointer ID Vita Holder 01/13/2025 7:03 AM EDT [facility] Device ID [id number] 01/13/2025 7:03 AM EDT [facility] Specimen Type POC Capillary 01/13/2025 7:03 AM EDT [facility] Blood Capillary blood specimen / Unknown 01/13/2025 7:02 AM EDT 01/13/2025 7:03 AM EDT us Farhad Castillo MD LAB POINT OF CARE TEST DOCKED DEVICE UNSOLICITED RESULTS Final Result Performing Organization Address [facility] Co de Phone Number [facility] [address] [place] [address] * Phosphorus (01/13/2025 3:37 AM EDT) Phosphorus, Plasma 3.3 2.5 - 4.5 mg/dL 01/13/2025 4:45 AM EDT [facility] Blood Venous blood specimen / Unknown Venipuncture / Unknown 01/13/2025 3:37 AM EDT 01/13/2025 4:14 AM EDT us Farhad Castillo MD LAB BLOOD ORDERABLES Final Result [facility] [address] [place] [address] * (ABNORMAL) Magnesium (01/13/2025 3:37 AM EDT) Magnesium, Plasma 1.8(L) 1.9 - 2.4 mg/dL 01/13/2025 4:45 AM EDT [facility] Blood Venous blood specimen / Unknown Venipuncture / Unknown 01/13/2025 3:37 AM EDT 01/13/2025 4:14 AM EDT us Farhad Castillo MD LAB BLOOD ORDERABLES Final Result [facility] [address] [place] [address] * (ABNORMAL) Comprehensive metabolic panel (01/13/2025 3:37 AM EDT) Glucose, Plasma 156(H) 74 - 99 mg/dL 01/13/2025 4:45 AM EDT [facility] BUN, Plasma 8 8 - 23 mg/dL 01/13/2025 4:45 AM EDT [facility] Creatinine, Plasma 0.79 0.70 - 1.20 mg/dL 01/13/2025 4:45 AM EDT [facility] BUN/Creatinine Ratio 10 01/13/2025 4:45 AM EDT [facility] Sodium, Plasma 136 136 - 145 mmol/L 01/13/2025 4:45 AM EDT [facility] Potassium, Plasma 3.6 3.6 - 4.9 mmol/L 01/13/2025 4:45 AM EDT [facility] Chloride, Plasma 103 97 - 107 mmol/L 01/13/2025 4:45 AM EDT [facility] CO2, Plasma 23 22 - 29 mmol/L 01/13/2025 4:45 AM EDT [facility] Anion Gap 10 6 - 16 mmol/L 01/13/2025 4:45 AM EDT [facility] Total Calcium, Plasma 8.4(L) 8.9 - 10.2 mg/dL 01/13/2025 4:45 AM EDT [facility] Total Protein 5.7(L) 6.3 - 7.9 g/dL 01/13/2025 4:45 AM EDT [facility] Albumin, Plasma 2.7(L) 3.5 - 5.2 g/dL 01/13/2025 4:45 AM EDT [facility] AST, Plasma 20 10 - 50 U/L 01/13/2025 4:45 AM EDT [facility] ALT, Plasma 15 10 - 50 U/L 01/13/2025 4:45 AM EDT [facility] Alkaline Phosphatase, Plasma 67 40 - 115 U/L 01/13/2025 4:45 AM EDT [facility] Total Bilirubin, Plasma 0.4 0.2 - 1.1 mg/dL 01/13/2025 4:45 AM EDT [facility] eGFRcr 101.7 mL/min/1.7 3m*2 01/13/2025 4:45 AM EDT [facility] Comment:Reported eGFRcr in m L/min/1.73m2 is based the CKD-EPI 2020 equation that does not use a race coefficient. Blood Venous blood specimen / Unknown Venipuncture / Unknown 01/13/2025 3:37 AM EDT 01/13/2025 4:14 AM EDT Farhad Castillo MD LAB BLOOD ORDERABLES Final Result [facility] [address] [place] [address] * (ABNORMAL) CBC W/O Differential (01/13/2025 3:37 AM EDT) WBC Count 11.46(H) 3.70 - 10.30 10*3/uL LAB HEMATOLOGY METHOD 01/13/2025 4:24 AM EDT [facility] RBC Count 3.36(L) 4.60 - 6.10 10*6/uL LAB HEMATOLOGY METHOD 01/13/2025 4:24 AM EDT [facility] HGB 9.9(L) 13.7 - 17.5 g/dL LAB HEMATOLOGY METHOD 01/13/2025 4:24 AM EDT [facility] HCT 30.6(L) 40.0 - 51.0 % LAB HEMATOLOGY METHOD 01/13/2025 4:24 AM EDT [facility] Platelet Count 244 155 - 369 10*3/uL LAB HEMATOLOGY METHOD 01/13/2025 4:24 AM EDT [facility] MCV 91 79 - 98 fL LAB HEMATOLOGY METHOD 01/13/2025 4:24 AM EDT [facility] MCH 29.5 26.0 - 32.0 pg LAB HEMATOLOGY METHOD 01/13/2025 4:24 AM EDT [facility] MCHC 32.4 30.7 - 35.5 g/dL LAB HEMATOLOGY METHOD 01/13/2025 4:24 AM EDT [facility] RDW 13.2 11.5 - 14.5 % LAB HEMATOLOGY METHOD 01/13/2025 4:24 AM EDT [facility] MPV 8.8 8.8 - 12.5 fL LAB HEMATOLOGY METHOD 01/13/2025 4:24 AM EDT [facility] nRBC 0.0 <=0.0 per 100 WBCs LAB HEMATOLOGY METHOD 01/13/2025 4:24 AM EDT [facility] Blood Venous blood specimen / Unknown Venipuncture / Unknown 01/13/2025 3:37 AM EDT 01/13/2025 4:17 AM EDT Farhad Castillo MD LAB BLOOD ORDERABLES Final Result [facility] [address] [place] [address] * (ABNORMAL) POCT glucose meter (01/12/2025 7:26 PM EDT) POCT Glucose 186(H) 74 - 99 mg/dL 01/12/2025 7:28 PM EDT [facility] Comment:Accuracy of [...] to the main labortory for testing. Comment 01/12/2025 7:28 PM EDT [facility] Dowel Pointer ID Niurka Taylor 01/12/2025 7:28 PM EDT [facility] Device ID [id number] 01/12/2025 7:28 PM EDT [facility] Specimen Type POC Capillary 01/12/2025 7:28 PM EDT [facility] Blood Capillary blood specimen / Unknown 01/12/2025 7:26 PM EDT 01/12/2025 7:28 PM EDT Farhad Castillo MD LAB POINT OF CARE TEST DOCKED DEVICE UNSOLICITED RESULTS Final Result Performing Organization Address [facility] Co de Phone Number [facility] [address] [place] [address] * (ABNORMAL) POCT glucose meter (01/12/2025 4:09 PM EDT) POCT Glucose 157(H) 74 - 99 mg/dL 01/12/2025 4:11 PM EDT [facility] Comment:Accuracy of a glucos e result obtained from a capillary whole blood specimen relies upon adequate, non-compromised capillary blood flow. If the capillary glucose result is not consistent with the patient's clinical signs and symptoms, glucose testing should be repeated with either an arterial or venous sample on the glucometer or sent to the main labortory for testing. Comment 01/12/2025 4:11 PM EDT [facility] Dowel Pointer ID Vita Holder 01/12/2025 4:11 PM EDT [facility] Device ID [id number] 01/12/2025 4:11 PM EDT [facility] Specimen Type POC Capillary 01/12/2025 4:11 PM EDT [facility] Blood Capillary blood specimen / Unknown 01/12/2025 4:09 PM EDT 01/12/2025 4:11 PM EDT Farhad Castillo MD LAB POINT OF CARE TEST DOCKED DEVICE UNSOLICITED RESULTS Final Result Performing Organization Address [facility] Co de Phone Number [facility] [address] [place] [address] * (ABNORMAL) POCT glucose meter (01/12/2025 11:54 AM EDT) Pathologist [facility] POCT Glucose 181(H) 74 - 99 mg/dL 01/12/2025 11:56 AM EDT [facility] Comment:Accuracy of [...] to the main labortory for testing. Comment 01/12/2025 11:56 AM EDT [facility] Dowel Pointer ID Vita Holder 01/12/2025 11:56 AM EDT [facility] Device ID [id number] 01/12/2025 11:56 AM EDT [facility] Specimen Type POC Capillary 01/12/2025 11:56 AM EDT [facility] Blood Capillary blood specimen / Unknown 01/12/2025 11:54 AM EDT 01/12/2025 11:56 AM EDT Farhad Castillo MD LAB POINT OF CARE TEST DOCKED DEVICE UNSOLICITED RESULTS Final Result Performing Organization Address [facility]/ZIP Co de Phone Number [facility] [address] [place] [address] * (ABNORMAL) POCT glucose meter (01/12/2025 8:08 AM EDT) POCT Glucose 140(H) 74 - 99 mg/dL 01/12/2025 8:10 AM EDT [facility] Comment:Accuracy of a glucos e result obtained from a capillary whole blood specimen relies upon adequate, non-compromised capillary blood flow. If the capillary glucose result is not consistent with the patient's clinical signs and symptoms, glucose testing should be repeated with either an arterial or venous sample on the glucometer or sent to the main labortory for testing. Comment 01/12/2025 8:10 AM EDT [facility] Dowel Pointer ID Vita Holder 01/12/2025 8:10 AM EDT [facility] Device ID [id number] 01/12/2025 8:10 AM EDT [facility] Specimen Type POC Capillary 01/12/2025 8:10 AM EDT [facility] Blood Capillary blood specimen / Unknown 01/12/2025 8:08 AM EDT 01/12/2025 8:10 AM EDT Farhad Castillo MD LAB POINT OF CARE TEST DOCKED DEVICE UNSOLICITED RESULTS Final Result Performing Organization Address City/[facility]/ZIP Co de Phone Number [facility] [address] [place] [address] * Phosphorus (01/12/2025 3:39 AM EDT) Phosphorus, Plasma 3.1 2.5 - 4.5 mg/dL 01/12/2025 4:34 AM EDT [facility] Blood Venous blood specimen / Unknown Venipuncture / Unknown 01/12/2025 3:39 AM EDT 01/12/2025 4:06 AM EDT us Farhad Castillo MD LAB BLOOD ORDERABLES Final Result Performing Organization Address City/[facility]/ZIP Co de Phone Number [facility] [address] [place] [address] * Magnesium (01/12/2025 3:39 AM EDT) Magnesium, Plasma 1.9 1.9 - 2.4 mg/dL 01/12/2025 4:34 AM EDT [facility] Blood Venous blood specimen / Unknown Venipuncture / Unknown 01/12/2025 3:39 AM EDT 01/12/2025 4:06 AM EDT us Farhad Castillo MD LAB BLOOD ORDERABLES Final Result Performing Organization Address City/[facility]/ZIP Co de Phone Number [facility] [address] [place] [address] * (ABNORMAL) Comprehensive metabolic panel (01/12/2025 3:39 AM EDT) Glucose, Plasma 139(H) 74 - 99 mg/dL 01/12/2025 4:34 AM EDT [facility] BUN, Plasma 7(L) 8 - 23 mg/dL 01/12/2025 4:34 AM EDT [facility] Creatinine, Plasma 0.77 0.70 - 1.20 mg/dL 01/12/2025 4:34 AM EDT [facility] BUN/Creatinine Ratio 9 01/12/2025 4:34 AM EDT [facility] Sodium, Plasma 137 136 - 145 mmol/L 01/12/2025 4:34 AM EDT [facility] Potassium, Plasma 3.7 3.6 - 4.9 mmol/L 01/12/2025 4:34 AM EDT [facility] Chloride, Plasma 105 97 - 107 mmol/L 01/12/2025 4:34 AM EDT [facility] CO2, Plasma 23 22 - 29 mmol/L 01/12/2025 4:34 AM EDT [facility] Anion Gap 9 6 - 16 mmol/L 01/12/2025 4:34 AM EDT [facility] Total Calcium, Plasma 8.4(L) 8.9 - 10.2 mg/dL 01/12/2025 4:34 AM EDT [facility] Total Protein 5.5(L) 6.3 - 7.9 g/dL 01/12/2025 4:34 AM EDT [facility] Albumin, Plasma 2.7(L) 3.5 - 5.2 g/dL 01/12/2025 4:34 AM EDT [facility] AST, Plasma 22 10 - 50 U/L 01/12/2025 4:34 AM EDT [facility] ALT, Plasma 16 10 - 50 U/L 01/12/2025 4:34 AM EDT [facility] Alkaline Phosphatase, Plasma 65 40 - 115 U/L 01/12/2025 4:34 AM EDT [facility] Total Bilirubin, Plasma 0.4 0.2 - 1.1 mg/dL 01/12/2025 4:34 AM EDT [facility] eGFRcr 102.5 mL/min/1.7 3m*2 01/12/2025 4:34 AM EDT [facility] Comment:Reported eGFRcr in m L/min/1.73m2 is based the CKD-EPI 2020 equation that does not use a race coefficient. Blood Venous blood specimen / Unknown Venipuncture / Unknown 01/12/2025 3:39 AM EDT 01/12/2025 4:06 AM EDT us Farhad Castillo MD LAB BLOOD ORDERABLES Final Result [facility] [address] [place] [address] * (ABNORMAL) CBC W/O Differential (01/12/2025 3:39 AM EDT) [facility] Signature WBC Count 10.27 3.70 - 10.30 10*3/uL LAB HEMATOLOGY METHOD 01/12/2025 4:19 AM EDT [facility] RBC Count 3.40(L) 4.60 - 6.10 10*6/uL LAB HEMATOLOGY METHOD 01/12/2025 4:19 AM EDT [facility] HGB 10.2(L) 13.7 - 17.5 g/dL LAB HEMATOLOGY METHOD 01/12/2025 4:19 AM EDT [facility] HCT 31.0(L) 40.0 - 51.0 % LAB HEMATOLOGY METHOD 01/12/2025 4:19 AM EDT [facility] Platelet Count 250 155 - 369 10*3/uL LAB HEMATOLOGY METHOD 01/12/2025 4:19 AM EDT [facility] MCV 91 79 - 98 fL LAB HEMATOLOGY METHOD 01/12/2025 4:19 AM EDT [facility] MCH 30.0 26.0 - 32.0 pg LAB HEMATOLOGY METHOD 01/12/2025 4:19 AM EDT [facility] MCHC 32.9 30.7 - 35.5 g/dL LAB HEMATOLOGY METHOD 01/12/2025 4:19 AM EDT [facility] RDW 13.3 11.5 - 14.5 % LAB HEMATOLOGY METHOD 01/12/2025 4:19 AM EDT [facility] MPV 8.7(L) 8.8 - 12.5 fL LAB HEMATOLOGY METHOD 01/12/2025 4:19 AM EDT [facility] nRBC 0.0 <=0.0 per 100 WBCs LAB HEMATOLOGY METHOD 01/12/2025 4:19 AM EDT [facility] Blood Venous blood specimen / Unknown Venipuncture / Unknown 01/12/2025 3:39 AM EDT 01/12/2025 4:07 AM EDT us Farhad Castillo MD LAB BLOOD ORDERABLES Final Result [facility] [address] [place] [address] * (ABNORMAL) POCT glucose meter (01/11/2025 7:57 PM EDT) Pathologist [facility] POCT Glucose 146(H) 74 - 99 mg/dL 01/11/2025 7:59 PM EDT [facility] Comment:Accuracy of [...] to the main labortory for testing. Comment 01/11/2025 7:59 PM EDT [facility] [place] Pointer ID Bere Wheeler 025 7:59 PM EDT [facility] Device ID [id number] 01/11/2025 7:59 PM EDT [facility] Specimen Type POC Capillary 01/11/2025 7:59 PM EDT [facility] Blood Capillary blood specimen / Unknown 01/11/2025 7:57 PM EDT 01/11/2025 7:59 PM EDT us Farhad Castillo MD LAB POINT OF CARE TEST DOCKED DEVICE UNSOLICITED RESULTS Final Result Performing Organization Address City/State/[facility] Co de Phone Number [facility] [address] [place] [address] * (ABNORMAL) POCT glucose meter (01/11/2025 4:42 PM EDT) Pathologist [facility] POCT Glucose 140(H) 74 - 99 mg/dL 01/11/2025 4:45 PM EDT [facility] Comment:Accuracy of [...] to the main labortory for testing. Comment 01/11/2025 4:45 PM EDT [facility] [place] Pointer ID Domenica Hdz 01/11/2025 4:45 PM EDT [facility] Device ID [id number] 01/11/2025 4:45 PM EDT [facility] Specimen Type POC Capillary 01/11/2025 4:45 PM EDT [facility] Blood Capillary blood specimen / Unknown 01/11/2025 4:42 PM EDT 01/11/2025 4:45 PM EDT Farhad Castillo MD LAB POINT OF CARE TEST DOCKED DEVICE UNSOLICITED RESULTS Final Result Performing Organization Address City/[facility]/ZIP Co de Phone Number [facility] [address] [place] [address] * (ABNORMAL) POCT glucose meter (01/11/2025 11:33 AM EDT) POCT Glucose 124(H) 74 - 99 mg/dL 01/11/2025 11:38 AM EDT [facility] Comment:Accuracy of [...] to the main labortory for testing. Comment 01/11/2025 11:38 AM EDT [facility] [place] Pointer ID Domenica Hdz 01/11/2025 11:38 AM EDT [facility] Device ID [id number] 01/11/2025 11:38 AM EDT [facility] Specimen Type POC Capillary 01/11/2025 11:38 AM EDT [facility] Blood Capillary blood specimen / Unknown 01/11/2025 11:33 AM EDT 01/11/2025 11:38 AM EDT Farhad Castillo MD LAB POINT OF CARE TEST DOCKED DEVICE UNSOLICITED RESULTS Final Result [facility] [address] [place] [address] * (ABNORMAL) POCT glucose meter (01/11/2025 9:01 AM EDT) POCT Glucose 129(H) 74 - 99 mg/dL 01/11/2025 9:09 AM EDT [facility] Comment:Accuracy of [...] to the main labortory for testing. Comment 01/11/2025 9:09 AM EDT [facility] [place] Pointer ID Domenica Hdz 01/11/2025 9:09 AM EDT [facility] Device ID [id number] 01/11/2025 9:09 AM EDT [facility] Specimen Type POC Capillary 01/11/2025 9:09 AM EDT [facility] Blood Capillary blood specimen / Unknown 01/11/2025 9:01 AM EDT 01/11/2025 9:09 AM EDT us Farhad Castillo MD LAB POINT OF CARE TEST DOCKED DEVICE UNSOLICITED RESULTS Final Result Performing Organization Address City/State/[facility] Co de Phone Number [facility] [address] [place] [address] * (ABNORMAL) POCT glucose meter (01/11/2025 5:37 AM EDT) POCT Glucose 105(H) 74 - 99 mg/dL 01/11/2025 5:39 AM EDT [facility] Comment:Accuracy of a glucos e result obtained from a capillary whole blood specimen relies upon adequate, non-compromised capillary blood flow. If the capillary glucose result is not consistent with the patient's clinical signs and symptoms, glucose testing should be repeated with either an arterial or venous sample on the glucometer or sent to the main labortory for testing. Comment 01/11/2025 5:39 AM EDT [facility] [place] Pointer ID Bere Wheeler 025 5:39 AM EDT [facility] Device ID [id number] 01/11/2025 5:39 AM EDT [facility] Specimen Type POC Capillary 01/11/2025 5:39 AM EDT [facility] Blood Capillary blood specimen / Unknown 01/11/2025 5:37 AM EDT 01/11/2025 5:39 AM EDT us Farhad Castillo MD LAB POINT OF CARE TEST DOCKED DEVICE UNSOLICITED RESULTS Final Result Performing Organization Address City/[facility]/ZIP Co de Phone Number [facility] [address] [place] [address] * Phosphorus (01/11/2025 3:49 AM EDT) Phosphorus, Plasma 3.4 2.5 - 4.5 mg/dL 01/11/2025 4:49 AM EDT [facility] Blood Venous blood specimen / Unknown Venipuncture / Unknown 01/11/2025 3:49 AM EDT 01/11/2025 4:19 AM EDT us Farhad Castillo MD LAB BLOOD ORDERABLES Final Result Performing Organization Address City/[facility]/ZIP Co de Phone Number [facility] [address] [place] [address] * Magnesium (01/11/2025 3:49 AM EDT) Magnesium, Plasma 1.9 1.9 - 2.4 mg/dL 01/11/2025 4:49 AM EDT [facility] Blood Venous blood specimen / Unknown Venipuncture / Unknown 01/11/2025 3:49 AM EDT 01/11/2025 4:19 AM EDT us Farhad Castillo MD LAB BLOOD ORDERABLES Final Result Performing Organization Address City/[facility]/ZIP Co de Phone Number [facility] [address] [place] [address] * (ABNORMAL) Comprehensive metabolic panel (01/11/2025 3:49 AM EDT) Glucose, Plasma 105(H) 74 - 99 mg/dL 01/11/2025 4:49 AM EDT [facility] BUN, Plasma 8 8 - 23 mg/dL 01/11/2025 4:49 AM EDT [facility] Creatinine, Plasma 0.75 0.70 - 1.20 mg/dL 01/11/2025 4:49 AM EDT [facility] BUN/Creatinine Ratio 11 01/11/2025 4:49 AM EDT [facility] Sodium, Plasma 136 136 - 145 mmol/L 01/11/2025 4:49 AM EDT [facility] Potassium, Plasma 3.6 3.6 - 4.9 mmol/L 01/11/2025 4:49 AM EDT [facility] Chloride, Plasma 103 97 - 107 mmol/L 01/11/2025 4:49 AM EDT [facility] CO2, Plasma 23 22 - 29 mmol/L 01/11/2025 4:49 AM EDT [facility] Anion Gap 10 6 - 16 mmol/L 01/11/2025 4:49 AM EDT [facility] Total Calcium, Plasma 8.6(L) 8.9 - 10.2 mg/dL 01/11/2025 4:49 AM EDT [facility] Total Protein 5.8(L) 6.3 - 7.9 g/dL 01/11/2025 4:49 AM EDT [facility] Albumin, Plasma 2.7(L) 3.5 - 5.2 g/dL 01/11/2025 4:49 AM EDT [facility] AST, Plasma 29 10 - 50 U/L 01/11/2025 4:49 AM EDT [facility] ALT, Plasma 25 10 - 50 U/L 01/11/2025 4:49 AM EDT [facility] Alkaline Phosphatase, Plasma 66 40 - 115 U/L 01/11/2025 4:49 AM EDT [facility] Total Bilirubin, Plasma 0.4 0.2 - 1.1 mg/dL 01/11/2025 4:49 AM EDT [facility] eGFRcr 103.3 mL/min/1.7 3m*2 01/11/2025 4:49 AM EDT [facility] Comment:Reported eGFRcr in m L/min/1.73m2 is based the CKD-EPI 2020 equation that does not use a race coefficient. Blood Venous blood specimen / Unknown Venipuncture / Unknown 01/11/2025 3:49 AM EDT 01/11/2025 4:19 AM EDT us Farhad Castillo MD LAB BLOOD ORDERABLES Final Result [facility] [address] [place] [address] * (ABNORMAL) CBC W/O Differential (01/11/2025 3:49 AM EDT) WBC Count 10.73(H) 3.70 - 10.30 10*3/uL LAB HEMATOLOGY METHOD 01/11/2025 4:32 AM EDT [facility] RBC Count 3.40(L) 4.60 - 6.10 10*6/uL LAB HEMATOLOGY METHOD 01/11/2025 4:32 AM EDT [facility] HGB 10.3(L) 13.7 - 17.5 g/dL LAB HEMATOLOGY METHOD 01/11/2025 4:32 AM EDT [facility] HCT 31.1(L) 40.0 - 51.0 % LAB HEMATOLOGY METHOD 01/11/2025 4:32 AM EDT [facility] Platelet Count 254 155 - 369 10*3/uL LAB HEMATOLOGY METHOD 01/11/2025 4:32 AM EDT [facility] MCV 92 79 - 98 fL LAB HEMATOLOGY METHOD 01/11/2025 4:32 AM EDT [facility] MCH 30.3 26.0 - 32.0 pg LAB HEMATOLOGY METHOD 01/11/2025 4:32 AM EDT [facility] MCHC 33.1 30.7 - 35.5 g/dL LAB HEMATOLOGY METHOD 01/11/2025 4:32 AM EDT [facility] RDW 13.2 11.5 - 14.5 % LAB HEMATOLOGY METHOD 01/11/2025 4:32 AM EDT [facility] MPV 8.7(L) 8.8 - 12.5 fL LAB HEMATOLOGY METHOD 01/11/2025 4:32 AM EDT [facility] nRBC 0.0 <=0.0 per 100 WBCs LAB HEMATOLOGY METHOD 01/11/2025 4:32 AM EDT [facility] Blood Venous blood specimen / Unknown Venipuncture / Unknown 01/11/2025 3:49 AM EDT 01/11/2025 4:20 AM EDT us Farhad Castillo MD LAB BLOOD ORDERABLES Final Result Performing Organization Address City/[facility]/ZIP Co de Phone Number [facility] [address] [place] [address] * (ABNORMAL) POCT glucose meter (01/11/2025 1:02 AM EDT) POCT Glucose 101(H) 74 - 99 mg/dL 01/11/2025 1:04 AM EDT [facility] Comment:Accuracy of a glucos e result obtained from a capillary whole blood specimen relies upon adequate, non-compromised capillary blood flow. If the capillary glucose result is not consistent with the patient's clinical signs and symptoms, glucose testing should be repeated with either an arterial or venous sample on the glucometer or sent to the main labortory for testing. Comment 01/11/2025 1:04 AM EDT [facility] [place] Pointer ID Bere Wheeler 025 1:04 AM EDT [facility] Device ID [id number] 01/11/2025 1:04 AM EDT [facility] Specimen Type POC Capillary 01/11/2025 1:04 AM EDT [facility] Blood Capillary blood specimen / Unknown 01/11/2025 1:02 AM EDT 01/11/2025 1:04 AM EDT us Farhad Castillo MD LAB POINT OF CARE TEST DOCKED DEVICE UNSOLICITED RESULTS Final Result Performing Organization Address City/[facility] Co de Phone Number [facility] [address] [place] [address] * POCT glucose meter (01/11/2025 12:34 AM EDT) POCT Glucose 94 74 - 99 mg/dL 01/11/2025 12:36 AM EDT [facility] Comment:Accuracy of [...] to the main labortory for testing. Comment 01/11/2025 12:36 AM EDT [facility] [place] Pointer ID Bere Wheeler 025 12:36 AM EDT [facility] Device ID [id number] 01/11/2025 12:36 AM EDT [facility] Specimen Type POC Capillary 01/11/2025 12:36 AM EDT [facility] Blood Capillary blood specimen / Unknown 01/11/2025 12:34 AM EDT 01/11/2025 12:36 AM EDT Farhad Castillo MD LAB POINT OF CARE TEST DOCKED DEVICE UNSOLICITED RESULTS Final Result Performing Organization Address City/[facility]/ZIP Co de Phone Number [facility] [address] [place] [address] * POCT glucose meter (01/10/2025 11:35 PM EDT) POCT Glucose 90 74 - 99 mg/dL 01/10/2025 11:37 PM EDT [facility] Comment:Accuracy of [...] to the main labortory for testing. Comment 01/10/2025 11:37 PM EDT [facility] [place] Pointer ID Bere Wheeler 025 11:37 PM EDT [facility] Device ID [id number] 01/10/2025 11:37 PM EDT [facility] Specimen Type POC Capillary 01/10/2025 11:37 PM EDT [facility] Blood Capillary blood specimen / Unknown 01/10/2025 11:35 PM EDT 01/10/2025 11:37 PM EDT us Farhad Castillo MD LAB POINT OF CARE TEST DOCKED DEVICE UNSOLICITED RESULTS Final Result Performing Organization Address City/[facility]/ZIP Co de Phone Number [facility] [address] [place] [address] * (ABNORMAL) POCT glucose meter (01/10/2025 5:12 PM EDT) [facility] POCT Glucose 125(H) 74 - 99 mg/dL 01/10/2025 5:14 PM EDT [facility] Comment:Accuracy of [...] to the main labortory for testing. Comment 01/10/2025 5:14 PM EDT [facility] [place] Pointer ID Vita Holder 01/10/2025 5:14 PM EDT [facility] Device ID [id number] 01/10/2025 5:14 PM EDT [facility] Specimen Type POC Capillary 01/10/2025 5:14 PM EDT [facility] Blood Capillary blood specimen / Unknown 01/10/2025 5:12 PM EDT 01/10/2025 5:14 PM EDT Farhad Castillo MD LAB POINT OF CARE TEST DOCKED DEVICE UNSOLICITED RESULTS Final Result Performing Organization Address City/State/[facility] Co de Phone Number [facility] [address] [place] [address] * POCT glucose meter (01/10/2025 11:26 AM EDT) [facility] POCT Glucose 96 74 - 99 mg/dL 01/10/2025 11:28 AM EDT [facility] Comment:Accuracy of [...] to the main labortory for testing. Comment 01/10/2025 11:28 AM EDT [facility] [place] Pointer ID Vita Holder 01/10/2025 11:28 AM EDT [facility] Device ID [id number] 01/10/2025 11:28 AM EDT [facility] Specimen Type POC Capillary 01/10/2025 11:28 AM EDT [facility] Blood Capillary blood specimen / Unknown 01/10/2025 11:26 AM EDT 01/10/2025 11:28 AM EDT Farhad Castillo MD LAB POINT OF CARE TEST DOCKED DEVICE UNSOLICITED RESULTS Final Result [facility] [address] [place] [address] * PERIPHERAL IV ([employer] LINK) (01/10/2025 10:19 AM EDT) Narrative Iliana eLe, RN - 01/10/2025 10:19 AM EDT Iliana Lee, RN 01/10/2025 10:20 AM Insert peripheral IV Performed by: Iliana Lee, RN Authorized by: Farhad Castillo MD Hand hygiene: Hand hygiene performed prior to insertion Inserted using aseptic techniques: Yes Preparation: Skin prepped with chg Orientation: Left Location: Forearm Catheter placed: Peripheral IV Catheter size: 20g/2.00in Line Technique: Ultrasound Guidance Number of attempts: 1 IV flushes: Without difficulty and positive blood return noted and IV luer locked Patient tolerance: Patient tolerated the procedure well and there were no complications Patient comfort measures used: Distraction and position of comfort IV site covered with: Transparent semipermeable dressing Education provided to: Patient Comments: All pertinent images were uploaded to PACS. Farhad Castillo MD IV THERAPY ORDERABLES Caprice l Result * (ABNORMAL) POCT glucose meter (01/10/2025 6:16 AM EDT) Pathologist [facility] POCT Glucose 111(H) 74 - 99 mg/dL 01/10/2025 6:18 AM EDT [facility] Comment:Accuracy of [...] to the main labortory for testing. Comment 01/10/2025 6:18 AM EDT [facility] [place] Pointer ID Renee Garciab 025 6:18 AM EDT [facility] Device ID [id number] 01/10/2025 6:18 AM EDT [facility] Specimen Type POC Capillary 01/10/2025 6:18 AM EDT [facility] Blood Capillary blood specimen / Unknown 01/10/2025 6:16 AM EDT 01/10/2025 6:18 AM EDT us Farhad Castillo MD LAB POINT OF CARE TEST DOCKED DEVICE UNSOLICITED RESULTS Final Result [facility] [address] [place] [address] * Phosphorus (01/10/2025 3:56 AM EDT) Phosphorus, Plasma 3.2 2.5 - 4.5 mg/dL 01/10/2025 4:34 AM EDT [facility] Blood Venous blood specimen / Unknown Venipuncture / Unknown 01/10/2025 3:56 AM EDT 01/10/2025 4:03 AM EDT us Farhad Castillo MD LAB BLOOD ORDERABLES Final Result [facility] [address] [place] [address] * Magnesium (01/10/2025 3:56 AM EDT) Magnesium, Plasma 2.1 1.9 - 2.4 mg/dL 01/10/2025 4:34 AM EDT [facility] Blood Venous blood specimen / Unknown Venipuncture / Unknown 01/10/2025 3:56 AM EDT 01/10/2025 4:03 AM EDT us Farhad Castillo MD LAB BLOOD ORDERABLES Final Result [facility] [address] [place] [address] * (ABNORMAL) Comprehensive metabolic panel (01/10/2025 3:56 AM EDT) Glucose, Plasma 104(H) 74 - 99 mg/dL 01/10/2025 4:34 AM EDT [facility] BUN, Plasma 10 8 - 23 mg/dL 01/10/2025 4:34 AM EDT [facility] Creatinine, Plasma 0.78 0.70 - 1.20 mg/dL 01/10/2025 4:34 AM EDT [facility] BUN/Creatinine Ratio 13 01/10/2025 4:34 AM EDT [facility] Sodium, Plasma 136 136 - 145 mmol/L 01/10/2025 4:34 AM EDT [facility] Potassium, Plasma 4.0 3.6 - 4.9 mmol/L 01/10/2025 4:34 AM EDT [facility] Chloride, Plasma 102 97 - 107 mmol/L 01/10/2025 4:34 AM EDT [facility] CO2, Plasma 23 22 - 29 mmol/L 01/10/2025 4:34 AM EDT [facility] Anion Gap 11 6 - 16 mmol/L 01/10/2025 4:34 AM EDT [facility] Total Calcium, Plasma 8.3(L) 8.9 - 10.2 mg/dL 01/10/2025 4:34 AM EDT [facility] Total Protein 5.7(L) 6.3 - 7.9 g/dL 01/10/2025 4:34 AM EDT [facility] Albumin, Plasma 2.6(L) 3.5 - 5.2 g/dL 01/10/2025 4:34 AM EDT [facility] AST, Plasma 31 10 - 50 U/L 01/10/2025 4:34 AM EDT [facility] ALT, Plasma 35 10 - 50 U/L 01/10/2025 4:34 AM EDT [facility] Alkaline Phosphatase, Plasma 61 40 - 115 U/L 01/10/2025 4:34 AM EDT [facility] Total Bilirubin, Plasma 0.5 0.2 - 1.1 mg/dL 01/10/2025 4:34 AM EDT [facility] eGFRcr 102.1 mL/min/1.7 3m*2 01/10/2025 4:34 AM EDT [facility] Comment:Reported eGFRcr in m L/min/1.73m2 is based the CKD-EPI 2020 equation that does not use a race coefficient. Blood Venous blood specimen / Unknown Venipuncture / Unknown 01/10/2025 3:56 AM EDT 01/10/2025 4:03 AM EDT Farhad Castillo MD LAB BLOOD ORDERABLES Final Result [facility] [address] [place] [address] * (ABNORMAL) CBC W/O Differential (01/10/2025 3:56 AM EDT) WBC Count 12.33(H) 3.70 - 10.30 10*3/uL LAB HEMATOLOGY METHOD 01/10/2025 4:18 AM EDT [facility] RBC Count 3.60(L) 4.60 - 6.10 10*6/uL LAB HEMATOLOGY METHOD 01/10/2025 4:18 AM EDT [facility] HGB 10.6(L) 13.7 - 17.5 g/dL LAB HEMATOLOGY METHOD 01/10/2025 4:18 AM EDT [facility] HCT 33.1(L) 40.0 - 51.0 % LAB HEMATOLOGY METHOD 01/10/2025 4:18 AM EDT [facility] Platelet Count 244 155 - 369 10*3/uL LAB HEMATOLOGY METHOD 01/10/2025 4:18 AM EDT [facility] MCV 92 79 - 98 fL LAB HEMATOLOGY METHOD 01/10/2025 4:18 AM EDT [facility] MCH 29.4 26.0 - 32.0 pg LAB HEMATOLOGY METHOD 01/10/2025 4:18 AM EDT [facility] MCHC 32.0 30.7 - 35.5 g/dL LAB HEMATOLOGY METHOD 01/10/2025 4:18 AM EDT [facility] RDW 13.3 11.5 - 14.5 % LAB HEMATOLOGY METHOD 01/10/2025 4:18 AM EDT [facility] MPV 9.1 8.8 - 12.5 fL LAB HEMATOLOGY METHOD 01/10/2025 4:18 AM EDT [facility] nRBC 0.0 <=0.0 per 100 WBCs LAB HEMATOLOGY METHOD 01/10/2025 4:18 AM EDT [facility] Blood Venous blood specimen / Unknown Venipuncture / Unknown 01/10/2025 3:56 AM EDT 01/10/2025 4:03 AM EDT Farhad Castillo MD LAB BLOOD ORDERABLES Final Result [facility] [address] [place] [address] * (ABNORMAL) POCT glucose meter (01/09/2025 11:45 PM EDT[facility] 74 - 99 mg/dL 01/09/2025 11:52 PM EDT [facility] Comment:Accuracy of [...] to the main labortory for testing. Comment 01/09/2025 11:52 PM EDT [facility] [place] Pointer ID Cookie Garcia 025 11:52 PM EDT [facility] Device ID [id number] 01/09/2025 11:52 PM EDT [facility] Specimen Type POC Capillary 01/09/2025 11:52 PM EDT [facility] Blood Capillary blood specimen / Unknown 01/09/2025 11:45 PM EDT 01/09/2025 11:52 PM EDT us Farhad Castillo MD LAB POINT OF CARE TEST DOCKED DEVICE UNSOLICITED RESULTS Final Result Performing Organization Address City/[facility]/ZIP Co de Phone Number [facility] [address] [place] [address] * (ABNORMAL) POCT glucose meter (01/09/2025 5:44 PM EDT) [facility] POCT Glucose 126(H) 74 - 99 mg/dL 01/09/2025 5:46 PM EDT [facility] Comment:Accuracy of [...] to the main labortory for testing. Comment 01/09/2025 5:46 PM EDT [facility] Pointer ID Ulises Adamsstephon Ayoub 01/09/2025 5:46 PM EDT [facility] Device ID [id number] 01/09/2025 5:46 PM EDT [facility] Specimen Type POC Capillary 01/09/2025 5:46 PM EDT [facility] Blood Capillary blood specimen / Unknown 01/09/2025 5:44 PM EDT 01/09/2025 5:46 PM EDT Farhad Castillo MD LAB POINT OF CARE TEST DOCKED DEVICE UNSOLICITED RESULTS Final Result [facility] [address] [place] [address] * (ABNORMAL) POCT glucose meter (01/09/2025 11:55 AM EDT) [facility] POCT Glucose 119(H) 74 - 99 mg/dL 01/09/2025 11:57 AM EDT [facility] Comment:Accuracy of [...] to the main labortory for testing. Comment 01/09/2025 11:57 AM EDT [facility] Dowel Pointer ID Cara Adams Anitra 01/09/2025 11:57 AM EDT [facility] Device ID [id number] 01/09/2025 11:57 AM EDT [facility] Specimen Type POC Capillary 01/09/2025 11:57 AM EDT [facility] Blood Capillary blood specimen / Unknown 01/09/2025 11:55 AM EDT 01/09/2025 11:57 AM EDT us Farhad Castillo MD LAB POINT OF CARE TEST DOCKED DEVICE UNSOLICITED RESULTS Final Result Performing Organization Address City/[facility]/ZIP Co de Phone Number [facility] [address] [place] [address] * (ABNORMAL) Phosphorus (01/09/2025 3:54 AM EDT) Phosphorus, Plasma 2.4(L) 2.5 - 4.5 mg/dL 01/09/2025 4:34 AM EDT [facility] Blood Venous blood specimen / Unknown Venipuncture / Unknown 01/09/2025 3:54 AM EDT 01/09/2025 3:59 AM EDT us Farhad Castillo MD LAB BLOOD ORDERABLES Final Result Performing Organization Address City/[facility]/ZIP Co de Phone Number [facility] [address] [place] [address] * (ABNORMAL) Magnesium (01/09/2025 3:54 AM EDT) Magnesium, Plasma 1.8(L) 1.9 - 2.4 mg/dL 01/09/2025 4:34 AM EDT [facility] Blood Venous blood specimen / Unknown Venipuncture / Unknown 01/09/2025 3:54 AM EDT 01/09/2025 3:59 AM EDT us Farhad Castillo MD LAB BLOOD ORDERABLES Final Result Performing Organization Address City/[facility]/ZIP Co de Phone Number [facility] [address] [place] [address] * (ABNORMAL) Comprehensive metabolic panel (01/09/2025 3:54 AM EDT) Glucose, Plasma 131(H) 74 - 99 mg/dL 01/09/2025 4:34 AM EDT [facility] BUN, Plasma 10 8 - 23 mg/dL 01/09/2025 4:34 AM EDT [facility] Creatinine, Plasma 0.79 0.70 - 1.20 mg/dL 01/09/2025 4:34 AM EDT [facility] BUN/Creatinine Ratio 13 01/09/2025 4:34 AM EDT [facility] Sodium, Plasma 134(L) 136 - 145 mmol/L 01/09/2025 4:34 AM EDT [facility] Potassium, Plasma 4.0 3.6 - 4.9 mmol/L 01/09/2025 4:34 AM EDT [facility] Chloride, Plasma 102 97 - 107 mmol/L 01/09/2025 4:34 AM EDT [facility] CO2, Plasma 24 22 - 29 mmol/L 01/09/2025 4:34 AM EDT [facility] Anion Gap 8 6 - 16 mmol/L 01/09/2025 4:34 AM EDT [facility] Total Calcium, Plasma 8.3(L) 8.9 - 10.2 mg/dL 01/09/2025 4:34 AM EDT [facility] Total Protein 5.5(L) 6.3 - 7.9 g/dL 01/09/2025 4:34 AM EDT [facility] Albumin, Plasma 2.8(L) 3.5 - 5.2 g/dL 01/09/2025 4:34 AM EDT [facility] AST, Plasma 50 10 - 50 U/L 01/09/2025 4:34 AM EDT [facility] ALT, Plasma 52(H) 10 - 50 U/L 01/09/2025 4:34 AM EDT [facility] Alkaline Phosphatase, Plasma 64 40 - 115 U/L 01/09/2025 4:34 AM EDT [facility] Total Bilirubin, Plasma 0.6 0.2 - 1.1 mg/dL 01/09/2025 4:34 AM EDT [facility] eGFRcr 101.7 mL/min/1.7 3m*2 01/09/2025 4:34 AM EDT [facility] Comment:Reported eGFRcr in m L/min/1.73m2 is based the CKD-EPI 2020 equation that does not use a race coefficient. Blood Venous blood specimen / Unknown Venipuncture / Unknown 01/09/2025 3:54 AM EDT 01/09/2025 3:59 AM EDT Farhad Castillo MD LAB BLOOD ORDERABLES Final Result [facility] [address] [place] [address] * (ABNORMAL) CBC W/O Differential (01/09/2025 3:54 AM EDT) WBC Count 14.81(H) 3.70 - 10.30 10*3/uL LAB HEMATOLOGY METHOD 01/09/2025 4:15 AM EDT [facility] RBC Count 3.53(L) 4.60 - 6.10 10*6/uL LAB HEMATOLOGY METHOD 01/09/2025 4:15 AM EDT [facility] HGB 10.5(L) 13.7 - 17.5 g/dL LAB HEMATOLOGY METHOD 01/09/2025 4:15 AM EDT [facility] HCT 32.5(L) 40.0 - 51.0 % LAB HEMATOLOGY METHOD 01/09/2025 4:15 AM EDT [facility] Platelet Count 211 155 - 369 10*3/uL LAB HEMATOLOGY METHOD 01/09/2025 4:15 AM EDT [facility] MCV 92 79 - 98 fL LAB HEMATOLOGY METHOD 01/09/2025 4:15 AM EDT [facility] MCH 29.7 26.0 - 32.0 pg LAB HEMATOLOGY METHOD 01/09/2025 4:15 AM EDT [facility] MCHC 32.3 30.7 - 35.5 g/dL LAB HEMATOLOGY METHOD 01/09/2025 4:15 AM EDT [facility] RDW 13.4 11.5 - 14.5 % LAB HEMATOLOGY METHOD 01/09/2025 4:15 AM EDT [facility] MPV 8.9 8.8 - 12.5 fL LAB HEMATOLOGY METHOD 01/09/2025 4:15 AM EDT [facility] nRBC 0.0 <=0.0 per 100 WBCs LAB HEMATOLOGY METHOD 01/09/2025 4:15 AM EDT [facility] Blood Venous blood specimen / Unknown Venipuncture / Unknown 01/09/2025 3:54 AM EDT 01/09/2025 4:02 AM EDT Farhad Castillo MD LAB BLOOD ORDERABLES Final Result Performing Organization Address City/[facility]/ZIP Co de Phone Number [facility] [address] [place] [address] * (ABNORMAL) POCT glucose meter (01/08/2025 11:55 PM EDT) POCT Glucose 141(H) 74 - 99 mg/dL 01/08/2025 11:57 PM EDT [facility] Comment:Accuracy of [...] to the main labortory for testing. Comment 01/08/2025 11:57 PM EDT [facility] Dowel Pointer ID Cookie [email or web address] 025 11:57 PM EDT [facility] Device ID [id number] 01/08/2025 11:57 PM EDT [facility] Specimen Type POC Capillary 01/08/2025 11:57 PM EDT [facility] Blood Capillary blood specimen / Unknown 01/08/2025 11:55 PM EDT 01/08/2025 11:57 PM EDT us Farhad Castillo MD LAB POINT OF CARE TEST DOCKED DEVICE UNSOLICITED RESULTS Final Result Performing Organization Address City/[facility]/ZIP Co de Phone Number [facility] [address] [place] [address] * (ABNORMAL) POCT glucose meter (01/08/2025 6:21 PM EDT) POCT Glucose 160(H) 74 - 99 mg/dL 01/08/2025 6:22 PM EDT [facility] Comment:Accuracy of [...] to the main labortory for testing. Comment 01/08/2025 6:22 PM EDT [facility] Dowel Pointer ID Nancy Hughes 01/08/2025 6:22 PM EDT [facility] Device ID [id number] 01/08/2025 6:22 PM EDT [facility] Specimen Type POC Capillary 01/08/2025 6:22 PM EDT [facility] Blood Capillary blood specimen / Unknown 01/08/2025 6:21 PM EDT 01/08/2025 6:22 PM EDT Farhad Castillo MD LAB POINT OF CARE TEST DOCKED DEVICE UNSOLICITED RESULTS Final Result [facility] [address] [place] [address] * (ABNORMAL) POCT glucose meter (01/08/2025 2:21 PM EDT) [facility] POCT Glucose 197(H) 74 - 99 mg/dL 01/08/2025 2:23 PM EDT [facility] Comment:Accuracy of [...] to the main labortory for testing. Comment 01/08/2025 2:23 PM EDT [facility] Dowel Pointer ID Mayra Jefferson 01/08/2025 2:23 PM EDT [facility] Device ID [id number] 01/08/2025 2:23 PM EDT [facility] Specimen Type POC Capillary 01/08/2025 2:23 PM EDT [facility] Blood Capillary blood specimen / Unknown 01/08/2025 2:21 PM EDT 01/08/2025 2:23 PM EDT us Farhad Castillo MD LAB POINT OF CARE TEST DOCKED DEVICE UNSOLICITED RESULTS Final Result [facility] [address] [place] [address] * XR Abdomen 1 View (01/08/2025 10:12 AM EDT) Anatomical Region Laterality Modality Body Digital Radiogra phy Impressions 01/08/2025 11:54 AM EDT The tip and side port of the nasogastric tube are within the proximal stomach. CRITICAL RESULT: No. COMMUNICATION: Per this written report. By electronically signing this report, I, the attending physician, attest that I have personally reviewed the images/data for the above examination(s) and agree with the final edited report. Drafted by Ozzie Pink MD on 01/08/2025 11:51 AM Final report signed by Kareem Marie MD on 01/08/2025 11:54 AM Narrative 01/08/2025 11:54 AM EDT CLINICAL INDICATION: NGT confirmation TECHNIQUE: Supine radiograph of the abdomen. COMPARISON: Abdominal radiograph 01/08/2025 FINDINGS: Limited [id number] abdominal radiograph for the purpose of locating tube position. The tip and side port of the nasogastric tube are within the proximal stomach. Procedure Note Kareem Marie MD - 01/08/2025 CLINICAL INDICATION: NGT confirmation TECHNIQUE: Supine radiograph of the abdomen. COMPARISON: Abdominal radiograph 01/08/2025 FINDINGS: Limited [id number] abdominal radiograph for the purpose of locatingtube position. The tip and side port of the nasogastric tube are within the proximalstomach. IMPRESSION: The tip and side port of the nasogastric tube are within the proximalstomach. CRITICAL RESULT: No. COMMUNICATION: Per this written report. By electronically signing this report, I, the attending physician, attestthat I have personally reviewed the images/data for the aboveexamination(s) and agree with the final edited report. Drafted by Ozzie Pink MD on 01/08/2025 11:51 AM Final report signed by Kareem Marie MD on 01/08/2025 11:54 AM us Paulo Jay [employer]PRESENT[employer]IVE IMG XR PROCEDURES Final Resul t * (ABNORMAL) POCT glucose meter (01/08/2025 8:32 AM EDT) POCT Glucose 227(H) 74 - 99 mg/dL 01/08/2025 8:34 AM EDT [facility] Comment:Accuracy of a glucos e result obtained from a capillary whole blood specimen relies upon adequate, non-compromised capillary blood flow. If the capillary glucose result is not consistent with the patient's clinical signs and symptoms, glucose testing should be repeated with either an arterial or venous sample on the glucometer or sent to the main labortory for testing. Comment 01/08/2025 8:34 AM EDT [facility] Dowel Pointer ID Mayra Jefferson 01/08/2025 8:34 AM EDT [facility] Device ID [id number] 01/08/2025 8:34 AM EDT [facility] Specimen Type POC Capillary 01/08/2025 8:34 AM EDT [facility] Blood Capillary blood specimen / Unknown 01/08/2025 8:32 AM EDT 01/08/2025 8:34 AM EDT Farhad Castillo MD LAB POINT OF CARE TEST DOCKED DEVICE UNSOLICITED RESULTS Final Result Performing Organization Address City/State/[facility] Co de Phone Number [facility] [address] [place] [address] * XR Abdomen 1 View (01/08/2025 8:20 AM EDT) Anatomical Region Laterality Modality Body Digital Radiogra phy Impressions 01/08/2025 9:19 AM EDT Overall nonobstructive bowel gas pattern. Mild gaseous distention of the stomach. CRITICAL RESULT: No. COMMUNICATION: Per this written report. By electronically signing this report, I, the attending physician, attest that I have personally reviewed the images/data for the above examination(s) and agree with the final edited report. Drafted by Ozzie Pink MD on 01/08/2025 9:06 AM Final report signed by Kareem Marie MD on 01/08/2025 9:19 AM Narrative 01/08/2025 9:19 AM EDT CLINICAL INDICATION: Nausea TECHNIQUE: XR ABDOMEN 1 VIEW COMPARISON: MRA abdomen 12/17/2024, CT abdomen and pelvis 11/19/24 FINDINGS: Gaseous distention of the stomach and the transverse colon without overt dilatation. Possible right pleural effusion is partially visualized. No acute osseous abnormality. Temperature probe overlies the pelvis. Surgical drain over the midline abdomen. Procedure Note Kareem Marie MD - 01/08/2025 CLINICAL INDICATION: Nausea TECHNIQUE: XR ABDOMEN 1 VIEW COMPARISON: MRA abdomen 12/17/2024, CT abdomen and pelvis 11/19/24 FINDINGS: Gaseous distention of the stomach and the transverse colon without overtdilatation. Possible right pleural effusion is partially visualized. Noacute osseous abnormality. Temperature probe overlies the pelvis. Surgicaldrain over the midline abdomen. IMPRESSION: Overall nonobstructive bowel gas pattern. Mild gaseous distention of thestomach. CRITICAL RESULT: No. COMMUNICATION: Per this written report. By electronically signing this report, I, the attending physician, attestthat I have personally reviewed the images/data for the aboveexamination(s) and agree with the final edited report. Drafted by Ozzie Pink MD on 01/08/2025 9:06 AM Final report signed by Kareem Marie MD on 01/08/2025 9:19 AM Paulo Jay [employer] REPRESENTATIVE IMG XR PROCEDURES Final Resul t * (ABNORMAL) Phosphorus (01/08/2025 3:05 AM EDT) Phosphorus, Plasma 2.3(L) 2.5 - 4.5 mg/dL 01/08/2025 3:54 AM EDT [facility] Blood Venous blood specimen / Unknown Venipuncture / Unknown 01/08/2025 3:05 AM EDT 01/08/2025 3:14 AM EDT Farhad Castillo MD LAB BLOOD ORDERABLES Final Result [facility] [address] [place] [address] * Magnesium (01/08/2025 3:05 AM EDT) Magnesium, Plasma 2.1 1.9 - 2.4 mg/dL 01/08/2025 3:54 AM EDT [facility] Blood Venous blood specimen / Unknown Venipuncture / Unknown 01/08/2025 3:05 AM EDT 01/08/2025 3:14 AM EDT Farhad Castillo MD LAB BLOOD ORDERABLES Final Result Performing Organization Address [facility]/ZIP Co de Phone Number [facility] [address] [place] [address] * (ABNORMAL) Comprehensive metabolic panel (01/08/2025 3:05 AM EDT) Glucose, Plasma 188(H) 74 - 99 mg/dL 01/08/2025 3:54 AM EDT [facility] BUN, Plasma 13 8 - 23 mg/dL 01/08/2025 3:54 AM EDT [facility] Creatinine, Plasma 0.79 0.70 - 1.20 mg/dL 01/08/2025 3:54 AM EDT [facility] BUN/Creatinine Ratio 16 01/08/2025 3:54 AM EDT [facility] Sodium, Plasma 137 136 - 145 mmol/L 01/08/2025 3:54 AM EDT [facility] Potassium, Plasma 4.0 3.6 - 4.9 mmol/L 01/08/2025 3:54 AM EDT [facility] Chloride, Plasma 103 97 - 107 mmol/L 01/08/2025 3:54 AM EDT [facility] CO2, Plasma 22 22 - 29 mmol/L 01/08/2025 3:54 AM EDT [facility] Anion Gap 12 6 - 16 mmol/L 01/08/2025 3:54 AM EDT [facility] Total Calcium, Plasma 8.4(L) 8.9 - 10.2 mg/dL 01/08/2025 3:54 AM EDT [facility] Total Protein 5.9(L) 6.3 - 7.9 g/dL 01/08/2025 3:54 AM EDT [facility] Albumin, Plasma 2.9(L) 3.5 - 5.2 g/dL 01/08/2025 3:54 AM EDT [facility] AST, Plasma 116(H) 10 - 50 U/L 01/08/2025 3:54 AM EDT [facility] ALT, Plasma 91(H) 10 - 50 U/L 01/08/2025 3:54 AM EDT [facility] Alkaline Phosphatase, Plasma 62 40 - 115 U/L 01/08/2025 3:54 AM EDT [facility] Total Bilirubin, Plasma 0.9 0.2 - 1.1 mg/dL 01/08/2025 3:54 AM EDT [facility] eGFRcr 101.7 mL/min/1.7 3m*2 01/08/2025 3:54 AM EDT [facility] Comment:Reported eGFRcr in m L/min/1.73m2 is based the CKD-EPI 2020 equation that does not use a race coefficient. Blood Venous blood specimen / Unknown Venipuncture / Unknown 01/08/2025 3:05 AM EDT 01/08/2025 3:14 AM EDT us Farhad Castillo MD LAB BLOOD ORDERABLES Final Result [facility] [address] [place] [address] * (ABNORMAL) CBC W/O Differential (01/08/2025 3:05 AM EDT) WBC Count 19.28(H) 3.70 - 10.30 10*3/uL LAB HEMATOLOGY METHOD 01/08/2025 3:25 AM EDT [facility] RBC Count 3.88(L) 4.60 - 6.10 10*6/uL LAB HEMATOLOGY METHOD 01/08/2025 3:25 AM EDT [facility] HGB 11.7(L) 13.7 - 17.5 g/dL LAB HEMATOLOGY METHOD 01/08/2025 3:25 AM EDT [facility] HCT 35.7(L) 40.0 - 51.0 % LAB HEMATOLOGY METHOD 01/08/2025 3:25 AM EDT [facility] Platelet Count 244 155 - 369 10*3/uL LAB HEMATOLOGY METHOD 01/08/2025 3:25 AM EDT [facility] MCV 92 79 - 98 fL LAB HEMATOLOGY METHOD 01/08/2025 3:25 AM EDT [facility] MCH 30.2 26.0 - 32.0 pg LAB HEMATOLOGY METHOD 01/08/2025 3:25 AM EDT [facility] MCHC 32.8 30.7 - 35.5 g/dL LAB HEMATOLOGY METHOD 01/08/2025 3:25 AM EDT [facility] RDW 13.7 11.5 - 14.5 % LAB HEMATOLOGY METHOD 01/08/2025 3:25 AM EDT [facility] MPV 9.2 8.8 - 12.5 fL LAB HEMATOLOGY METHOD 01/08/2025 3:25 AM EDT [facility] nRBC 0.0 <=0.0 per 100 WBCs LAB HEMATOLOGY METHOD 01/08/2025 3:25 AM EDT [facility] Blood Venous blood specimen / Unknown Venipuncture / Unknown 01/08/2025 3:05 AM EDT 01/08/2025 3:16 AM EDT us Farhad Castillo MD LAB BLOOD ORDERABLES Final Result [facility] [address] [place] [address] * (ABNORMAL) POCT glucose meter (01/08/2025 2:59 AM EDT) POCT Glucose 165(H) 74 - 99 mg/dL 01/08/2025 3:01 AM EDT [facility] Comment:Accuracy of a glucos e result obtained from a capillary whole blood specimen relies upon adequate, non-compromised capillary blood flow. If the capillary glucose result is not consistent with the patient's clinical signs and symptoms, glucose testing should be repeated with either an arterial or venous sample on the glucometer or sent to the main labortory for testing. Comment 01/08/2025 3:01 AM EDT [facility] Dowel Pointer ID Flor Glez 01/08/2025 3:01 AM EDT [facility] Device ID [id number] 01/08/2025 3:01 AM EDT [facility] Specimen Type POC Capillary 01/08/2025 3:01 AM EDT [facility] Blood Capillary blood specimen / Unknown 01/08/2025 2:59 AM EDT 01/08/2025 3:01 AM EDT us Farhad Castillo MD LAB POINT OF CARE TEST DOCKED DEVICE UNSOLICITED RESULTS Final Result Performing Organization Address [facility] de Phone Number [facility] [address] [place] [address] * (ABNORMAL) POCT glucose meter (01/07/2025 8:31 PM EDT) [facility] POCT Glucose 243(H) 74 - 99 mg/dL 01/07/2025 8:32 PM EDT [facility] Comment:Accuracy of [...] to the main labortory for testing. Comment 01/07/2025 8:32 PM EDT [facility] Dowel Pointer ID Flor Glez 01/07/2025 8:32 PM EDT [facility] Device ID [id number] 01/07/2025 8:32 PM EDT [facility] Specimen Type POC Capillary 01/07/2025 8:32 PM EDT [facility] Blood Capillary blood specimen / Unknown 01/07/2025 8:31 PM EDT 01/07/2025 8:32 PM EDT us Farhad Castillo MD LAB POINT OF CARE TEST DOCKED DEVICE UNSOLICITED RESULTS Final Result Performing Organization Address City/[facility] Co de Phone Number [facility] [address] [place] [address] * (ABNORMAL) POCT glucose meter (01/07/2025 5:05 PM EDT) [facility] POCT Glucose 251(H) 74 - 99 mg/dL 01/07/2025 5:09 PM EDT [facility] Comment:Accuracy of [...] to the main labortory for testing. Comment 01/07/2025 5:09 PM EDT [facility] Dowel Pointer ID Myra Pete 01/08/20 5:09 PM EDT [facility] Device ID [id number] 01/07/2025 5:09 PM EDT [facility] Specimen Type POC Capillary 01/07/2025 5:09 PM EDT [facility] Blood Capillary blood specimen / Unknown 01/07/2025 5:05 PM EDT 01/07/2025 5:09 PM EDT Farhad Castillo MD LAB POINT OF CARE TEST DOCKED DEVICE UNSOLICITED RESULTS Final Result [facility] [address] [place] [address] * (ABNORMAL) POCT glucose meter (01/07/2025 12:22 PM EDT) [facility] POCT Glucose 300(H) 74 - 99 mg/dL 01/07/2025 12:26 PM EDT [facility] Comment:Accuracy of [...] to the main labortory for testing. Comment 01/07/2025 12:26 PM EDT [facility] Dowel Pointer ID Myra Pete 01/08/20 12:26 PM EDT [facility] Device ID [id number] 01/07/2025 12:26 PM EDT [facility] Specimen Type POC Capillary 01/07/2025 12:26 PM EDT [facility] Blood Capillary blood specimen / Unknown 01/07/2025 12:22 PM EDT 01/07/2025 12:26 PM EDT Farhad Castillo MD LAB POINT OF CARE TEST DOCKED DEVICE UNSOLICITED RESULTS Final Result [facility] [address] [place] [address] * (ABNORMAL) POCT glucose meter (01/07/2025 5:19 AM EDT) POCT Glucose 274(H) 74 - 99 mg/dL 01/07/2025 5:21 AM EDT [facility] Comment:Accuracy of a glucos e result obtained from a capillary whole blood specimen relies upon adequate, non-compromised capillary blood flow. If the capillary glucose result is not consistent with the patient's clinical signs and symptoms, glucose testing should be repeated with either an arterial or venous sample on the glucometer or sent to the main labortory for testing. Comment 01/07/2025 5:21 AM EDT [facility] Dowel Pointer ID Bere Wheeler 025 5:21 AM EDT [facility] Device ID [id number] 01/07/2025 5:21 AM EDT [facility] Specimen Type POC Capillary 01/07/2025 5:21 AM EDT [facility] Blood Capillary blood specimen / Unknown 01/07/2025 5:19 AM EDT 01/07/2025 5:21 AM EDT Farhad Castillo MD LAB POINT OF CARE TEST DOCKED DEVICE UNSOLICITED RESULTS Final Result [facility] [address] [place] [address] * Phosphorus (01/07/2025 3:26 AM EDT) Phosphorus, Plasma 3.5 2.5 - 4.5 mg/dL 01/07/2025 4:18 AM EDT [facility] Blood Venous blood specimen / Unknown Venipuncture / Unknown 01/07/2025 3:26 AM EDT 01/07/2025 3:50 AM EDT us Farhad Castillo MD LAB BLOOD ORDERABLES Final Result Performing Organization Address City/[facility]/ZIP Co de Phone Number [facility] [address] [place] [address] * Magnesium (01/07/2025 3:26 AM EDT) Magnesium, Plasma 1.9 1.9 - 2.4 mg/dL 01/07/2025 4:18 AM EDT [facility] Blood Venous blood specimen / Unknown Venipuncture / Unknown 01/07/2025 3:26 AM EDT 01/07/2025 3:50 AM EDT us Farhad Castillo MD LAB BLOOD ORDERABLES Final Result Performing Organization Address [facility] Co de Phone Number [facility] [address] [place] [address] * (ABNORMAL) Comprehensive metabolic panel (01/07/2025 3:26 AM EDT) Glucose, Plasma 312(H) 74 - 99 mg/dL 01/07/2025 4:18 AM EDT [facility] BUN, Plasma 20 8 - 23 mg/dL 01/07/2025 4:18 AM EDT [facility] Creatinine, Plasma 0.93 0.70 - 1.20 mg/dL 01/07/2025 4:18 AM EDT [facility] BUN/Creatinine Ratio 22 01/07/2025 4:18 AM EDT [facility] Sodium, Plasma 137 136 - 145 mmol/L 01/07/2025 4:18 AM EDT [facility] Potassium, Plasma 4.9 3.6 - 4.9 mmol/L 01/07/2025 4:18 AM EDT [facility] Chloride, Plasma 104 97 - 107 mmol/L 01/07/2025 4:18 AM EDT [facility] CO2, Plasma 19(L) 22 - 29 mmol/L 01/07/2025 4:18 AM EDT [facility] Anion Gap 14 6 - 16 mmol/L 01/07/2025 4:18 AM EDT [facility] Total Calcium, Plasma 8.5(L) 8.9 - 10.2 mg/dL 01/07/2025 4:18 AM EDT [facility] Total Protein 6.2(L) 6.3 - 7.9 g/dL 01/07/2025 4:18 AM EDT [facility] Albumin, Plasma 3.3(L) 3.5 - 5.2 g/dL 01/07/2025 4:18 AM EDT [facility] AST, Plasma 284(H) 10 - 50 U/L 01/07/2025 4:18 AM EDT [facility] ALT, Plasma 125(H) 10 - 50 U/L 01/07/2025 4:18 AM EDT [facility] Alkaline Phosphatase, Plasma 69 40 - 115 U/L 01/07/2025 4:18 AM EDT [facility] Total Bilirubin, Plasma 0.8 0.2 - 1.1 mg/dL 01/07/2025 4:18 AM EDT [facility] eGFRcr 94.0 mL/min/1.7 3m*2 01/07/2025 4:18 AM EDT [facility] Comment:Reported eGFRcr in m L/min/1.73m2 is based the CKD-EPI 2020 equation that does not use a race coefficient. Blood Venous blood specimen / Unknown Venipuncture / Unknown 01/07/2025 3:26 AM EDT 01/07/2025 3:50 AM EDT us Farhad Castillo MD LAB BLOOD ORDERABLES Final Result [facility] [address] [place] [address] * (ABNORMAL) CBC W/O Differential (01/07/2025 3:26 AM EDT) WBC Count 18.29(H) 3.70 - 10.30 10*3/uL LAB HEMATOLOGY METHOD 01/07/2025 3:58 AM EDT [facility] RBC Count 4.42(L) 4.60 - 6.10 10*6/uL LAB HEMATOLOGY METHOD 01/07/2025 3:58 AM EDT [facility] HGB 13.1(L) 13.7 - 17.5 g/dL LAB HEMATOLOGY METHOD 01/07/2025 3:58 AM EDT [facility] HCT 40.0 40.0 - 51.0 % LAB HEMATOLOGY METHOD 01/07/2025 3:58 AM EDT [facility] Platelet Count 284 155 - 369 10*3/uL LAB HEMATOLOGY METHOD 01/07/2025 3:58 AM EDT [facility] MCV 91 79 - 98 fL LAB HEMATOLOGY METHOD 01/07/2025 3:58 AM EDT [facility] MCH 29.6 26.0 - 32.0 pg LAB HEMATOLOGY METHOD 01/07/2025 3:58 AM EDT [facility] [facility] MCHC 32.8 30.7 - 35.5 g/dL LAB HEMATOLOGY METHOD 01/07/2025 3:58 AM EDT [facility] RDW 13.5 11.5 - 14.5 % LAB HEMATOLOGY METHOD 01/07/2025 3:58 AM EDT [facility] MPV 9.2 8.8 - 12.5 fL LAB HEMATOLOGY METHOD 01/07/2025 3:58 AM EDT [facility] nRBC 0.0 <=0.0 per 100 WBCs LAB HEMATOLOGY METHOD 01/07/2025 3:58 AM EDT [facility] Blood Venous blood specimen / Unknown Venipuncture / Unknown 01/07/2025 3:26 AM EDT 01/07/2025 3:50 AM EDT us Farhad Castillo MD LAB BLOOD ORDERABLES Final Result [facility] [address] [place] [address] * (ABNORMAL) POCT glucose meter (01/06/2025 11:31 PM EDT) POCT Glucose 293(H) 74 - 99 mg/dL 01/06/2025 11:33 PM EDT [facility] Comment:Accuracy of a glucos e result obtained from a capillary whole blood specimen relies upon adequate, non-compromised capillary blood flow. If the capillary glucose result is not consistent with the patient's clinical signs and symptoms, glucose testing should be repeated with either an arterial or venous sample on the glucometer or sent to the main labortory for testing. Comment 01/06/2025 11:33 PM EDT [facility] Dowel Pointer ID Bere Wheeler 025 11:33 PM EDT [facility] Device ID [id number] 01/06/2025 11:33 PM EDT [facility] Specimen Type POC Capillary 01/06/2025 11:33 PM EDT [facility] Blood Capillary blood specimen / Unknown 01/06/2025 11:31 PM EDT 01/06/2025 11:33 PM EDT us Farhad Castillo MD LAB POINT OF CARE TEST DOCKED DEVICE UNSOLICITED RESULTS Final Result [facility] [address] [place] [address] * (ABNORMAL) Blood gas panel, arterial (01/06/2025 5:03 PM EDT) pH, Arterial 7.35 7.31 - 7.42 LAB HEMATOLOGY METHOD 01/06/2025 5:09 PM EDT [facility] pCO2, Arterial 40 32 - 45 mmHg LAB HEMATOLOGY METHOD 01/06/2025 5:09 PM EDT [facility] pO2, Arterial 109 >80 mmHg LAB HEMATOLOGY METHOD 01/06/2025 5:09 PM EDT [facility] SO2, Measured, Arterial 97 94 - 98 % LAB HEMATOLOGY METHOD 01/06/2025 5:09 PM EDT [facility] Base Excess, Arterial -3.1(L) -2.0 - 3.0 mmol/L LAB HEMATOLOGY METHOD 01/06/2025 5:09 PM EDT [facility] Bicarbonate, Calculated, Arterial 22 22 - 26 mmol/L LAB HEMATOLOGY METHOD 01/06/2025 5:09 PM EDT [facility] Hematocrit, Whole Blood 39.4(L) 40.0 - 51.0 % LAB HEMATOLOGY METHOD 01/06/2025 5:09 PM EDT [facility] Sodium, Whole Blood 139 136 - 145 mmol/L LAB HEMATOLOGY METHOD 01/06/2025 5:09 PM EDT [facility] Potassium, Whole Blood 5.0(H) 3.6 - 4.9 mmol/L LAB HEMATOLOGY METHOD 01/06/2025 5:09 PM EDT [facility] Chloride, Whole Blood 108(H) 97 - 107 mmol/L LAB HEMATOLOGY METHOD 01/06/2025 5:09 PM EDT [facility] Glucose, Whole Blood 227(H) 74 - 99 mg/dL LAB HEMATOLOGY METHOD 01/06/2025 5:09 PM EDT [facility] Ionized Calcium, Whole Blood 4.6 4.6 - 5.1 mg/dL LAB HEMATOLOGY METHOD 01/06/2025 5:09 PM EDT [facility] Lactate, Arterial, Whole Blood 1.9(H) 0.5 - 1.6 mmol/L LAB HEMATOLOGY METHOD 01/06/2025 5:09 PM EDT [facility] Blood Arterial blood specimen / Unknown Arterial Puncture / Unknown 01/06/2025 5:03 PM EDT 01/06/2025 5:08 PM EDT us Cheng Peña MD LAB BLOOD ORDERABLES Final Res ult [facility] [address] [place] [address] * (ABNORMAL) POCT glucose meter (01/06/2025 4:40 PM EDT) Pathologist [facility] POCT Glucose 186(H) 74 - 99 mg/dL 01/06/2025 4:42 PM EDT [facility] Comment:Accuracy of a glucos e result obtained from a capillary whole blood specimen relies upon adequate, non-compromised capillary blood flow. If the capillary glucose result is not consistent with the patient's clinical signs and symptoms, glucose testing should be repeated with either an arterial or venous sample on the glucometer or sent to the main labortory for testing. Comment 01/06/2025 4:42 PM EDT [facility] Dowel Pointer ID Judith Murphy 01/06/2025 4:42 PM EDT [facility] Device ID [id number] 01/06/2025 4:42 PM EDT [facility] Specimen Type POC Capillary 01/06/2025 4:42 PM EDT [facility] Blood Capillary blood specimen / Unknown 01/06/2025 4:40 PM EDT 01/06/2025 4:42 PM EDT Farhad Castillo MD LAB POINT OF CARE TEST DOCKED DEVICE UNSOLICITED RESULTS Final Result [facility] [address] [place] [address] * (ABNORMAL) Comprehensive metabolic panel (01/06/2025 4:26 PM EDT) Glucose, Plasma 187(H) 74 - 99 mg/dL 01/06/2025 4:26 PM EDT [facility] BUN, Plasma 21 8 - 23 mg/dL 01/06/2025 4:26 PM EDT [facility] Creatinine, Plasma 0.92 0.70 - 1.20 mg/dL 01/06/2025 4:26 PM EDT [facility] BUN/Creatinine Ratio 23 01/06/2025 4:26 PM EDT [facility] Sodium, Plasma 138 136 - 145 mmol/L 01/06/2025 4:26 PM EDT [facility] Potassium, Plasma 5.5(H) 3.6 - 4.9 mmol/L 01/06/2025 4:26 PM EDT [facility] Chloride, Plasma 105 97 - 107 mmol/L 01/06/2025 4:26 PM EDT [facility] CO2, Plasma 21(L) 22 - 29 mmol/L 01/06/2025 4:26 PM EDT [facility] Anion Gap 12 6 - 16 mmol/L 01/06/2025 4:26 PM EDT [facility] Total Calcium, Plasma 8.4(L) 8.9 - 10.2 mg/dL 01/06/2025 4:26 PM EDT [facility] Total Protein 5.9(L) 6.3 - 7.9 g/dL 01/06/2025 4:26 PM EDT [facility] Albumin, Plasma 3.4(L) 3.5 - 5.2 g/dL 01/06/2025 4:26 PM EDT [facility] AST, Plasma 306(H) 10 - 50 U/L 01/06/2025 4:26 PM EDT [facility] ALT, Plasma 101(H) 10 - 50 U/L 01/06/2025 4:26 PM EDT [facility] Alkaline Phosphatase, Plasma 73 40 - 115 U/L 01/06/2025 4:26 PM EDT [facility] Total Bilirubin, Plasma 0.7 0.2 - 1.1 mg/dL 01/06/2025 4:26 PM EDT [facility] eGFRcr 95.2 mL/min/1.7 3m*2 01/06/2025 4:26 PM EDT [facility] Comment:Reported eGFRcr in m L/min/1.73m2 is based the CKD-EPI 2020 equation that does not use a race coefficient. Blood Venous blood specimen / Unknown 01/06/2025 3:55 PM EDT us Andres Rojas [facility] LAB BLOOD ORDERABLES Final Result [facility] [address] [place] [address] * (ABNORMAL) CBC (01/06/2025 4:16 PM EDT) WBC Count 16.98(H) 3.70 - 10.30 10*3/uL LAB HEMATOLOGY METHOD 01/06/2025 4:16 PM EDT [facility] RBC Count 4.22(L) 4.60 - 6.10 10*6/uL LAB HEMATOLOGY METHOD 01/06/2025 4:16 PM EDT [facility] HGB 12.6(L) 13.7 - 17.5 g/dL LAB HEMATOLOGY METHOD 01/06/2025 4:16 PM EDT [facility] HCT 38.9(L) 40.0 - 51.0 % LAB HEMATOLOGY METHOD 01/06/2025 4:16 PM EDT [facility] Platelet Count 307 155 - 369 10*3/uL LAB HEMATOLOGY METHOD 01/06/2025 4:16 PM EDT [facility] MCV 92 79 - 98 fL LAB HEMATOLOGY METHOD 01/06/2025 4:16 PM EDT [facility] MCH 29.9 26.0 - 32.0 pg LAB HEMATOLOGY METHOD 01/06/2025 4:16 PM EDT [facility] MCHC 32.4 30.7 - 35.5 g/dL LAB HEMATOLOGY METHOD 01/06/2025 4:16 PM EDT [facility] RDW 13.4 11.5 - 14.5 % LAB HEMATOLOGY METHOD 01/06/2025 4:16 PM EDT [facility] MPV 9.4 8.8 - 12.5 fL LAB HEMATOLOGY METHOD 01/06/2025 4:16 PM EDT [facility] nRBC 0.0 <=0.0 per 100 WBCs LAB HEMATOLOGY METHOD 01/06/2025 4:16 PM EDT [facility] Blood Venous blood specimen / Unknown 01/06/2025 4:06 PM EDT us Andres Rojas [facility] LAB BLOOD ORDERABLES Final Result [facility] [address] [place] [address] * (ABNORMAL) Blood gas, arterial (01/06/2025 3:36 PM EDT) pH, Arterial 7.32 7.31 - 7.42 LAB HEMATOLOGY METHOD 01/06/2025 3:48 PM EDT [facility] pCO2, Arterial 45 32 - 45 mmHg LAB HEMATOLOGY METHOD 01/06/2025 3:48 PM EDT [facility] pO2, Arterial 178 >80 mmHg LAB HEMATOLOGY METHOD 01/06/2025 3:48 PM EDT [facility] SO2, Measured, Arterial 98 94 - 98 % LAB HEMATOLOGY METHOD 01/06/2025 3:48 PM EDT [facility] Base Excess, Arterial -3.2(L) -2.0 - 3.0 mmol/L LAB HEMATOLOGY METHOD 01/06/2025 3:48 PM EDT [facility] Bicarbonate, Calculated, Arterial 23 22 - 26 mmol/L LAB HEMATOLOGY METHOD 01/06/2025 3:48 PM EDT [facility] Hematocrit, Whole Blood 38.8(L) 40.0 - 51.0 % LAB HEMATOLOGY METHOD 01/06/2025 3:48 PM EDT [facility] Sodium, Whole Blood 138 136 - 145 mmol/L LAB HEMATOLOGY METHOD 01/06/2025 3:48 PM EDT [facility] Potassium, Whole Blood 5.1(H) 3.6 - 4.9 mmol/L LAB HEMATOLOGY METHOD 01/06/2025 3:48 PM EDT [facility] Chloride, Whole Blood 109(H) 97 - 107 mmol/L LAB HEMATOLOGY METHOD 01/06/2025 3:48 PM EDT [facility] Glucose, Whole Blood 189(H) 74 - 99 mg/dL LAB HEMATOLOGY METHOD 01/06/2025 3:48 PM EDT [facility] Ionized Calcium, Whole Blood 4.5(L) 4.6 - 5.1 mg/dL LAB HEMATOLOGY METHOD 01/06/2025 3:48 PM EDT [facility] Lactate, Arterial, Whole Blood 1.8(H) 0.5 - 1.6 mmol/L LAB HEMATOLOGY METHOD 01/06/2025 3:48 PM EDT [facility] Blood Arterial blood specimen / Unknown Arterial Puncture / Unknown 01/06/2025 3:36 PM EDT 01/06/2025 3:47 PM EDT Andres Rojas [facility] BLOOD ORDERABLES Final Result [facility] [address] [place] [address] * (ABNORMAL) Blood gas, arterial (01/06/2025 1:27 PM EDT) pH, Arterial 7.35 7.31 - 7.42 LAB HEMATOLOGY METHOD 01/06/2025 1:32 PM EDT [facility] pCO2, Arterial 40 32 - 45 mmHg LAB HEMATOLOGY METHOD 01/06/2025 1:32 PM EDT [facility] pO2, Arterial 189 >80 mmHg LAB HEMATOLOGY METHOD 01/06/2025 1:32 PM EDT [facility] SO2, Measured, Arterial 98 94 - 98 % LAB HEMATOLOGY METHOD 01/06/2025 1:32 PM EDT [facility] Base Excess, Arterial -3.3(L) -2.0 - 3.0 mmol/L LAB HEMATOLOGY METHOD 01/06/2025 1:32 PM EDT [facility] Bicarbonate, Calculated, Arterial 22 22 - 26 mmol/L LAB HEMATOLOGY METHOD 01/06/2025 1:32 PM EDT [facility] Hematocrit, Whole Blood 37.0(L) 40.0 - 51.0 % LAB HEMATOLOGY METHOD 01/06/2025 1:32 PM EDT [facility] Sodium, Whole Blood 138 136 - 145 mmol/L LAB HEMATOLOGY METHOD 01/06/2025 1:32 PM EDT [facility] Potassium, Whole Blood 4.4 3.6 - 4.9 mmol/L LAB HEMATOLOGY METHOD 01/06/2025 1:32 PM EDT [facility] Chloride, Whole Blood 111(H) 97 - 107 mmol/L LAB HEMATOLOGY METHOD 01/06/2025 1:32 PM EDT [facility] Glucose, Whole Blood 184(H) 74 - 99 mg/dL LAB HEMATOLOGY METHOD 01/06/2025 1:32 PM EDT [facility] Ionized Calcium, Whole Blood 4.4(L) 4.6 - 5.1 mg/dL LAB HEMATOLOGY METHOD 01/06/2025 1:32 PM EDT [facility] Lactate, Arterial, Whole Blood 1.6 0.5 - 1.6 mmol/L LAB HEMATOLOGY METHOD 01/06/2025 1:32 PM EDT [facility] Blood Arterial blood specimen / Unknown Arterial Puncture / Unknown 01/06/2025 1:27 PM EDT 01/06/2025 1:31 PM EDT us Andres Rojas [employer] LAB BLOOD ORDERABLES Final Result [facility] [address] [place] [address] * Surgical Pathology Exam (01/06/2025 12:59 PM EDT) Case Report Surgical Pathology Case: [id number] Authorizing Provider: Heidi March MD Collected: 01/06/2025 1213 Ordering Location: [facility] OPER[facility] Received: 01/06/2025 1618 Pathologist: Paulo Morrison MD Specimens: A) - Other (specify site), Partial Omentectomy B) - Other (specify site), Segment 8 partial hepatectomy C) - Gallbladder, gallbladder 01/11/2025 10:28 AM EDT [facility] Final Diagnosis A. OMENTUM, PARTIAL OMENTECTOMY: - BENIGN FIBROADIPOSE TISSUE; NEGATIVE FOR TUMOR B. LIVER, SEGMENT EIGHT, PARTIAL HEPATECTOMY: - METASTATIC MODERATELY DIFFERENTIATED ADENOCARCINOMA (1.8 CM), MORPHOLOGICALLY CONSISTENT WITH THE PATIENT'S KNOWN CECUM PRIMARY - NEGATIVE MARGINS OF RESECTION - BACKGROUND HEPATIC PARENCHYMA WITH ONGOING STEATOHEPATITIS, AND MILD FIBROSIS (SEE COMMENT) C. GALLBLADDER, CHOLECYSTECTOMY: - MILD CHRONIC CHOLECYSTITIS - NEGATIVE FOR TUMOR 01/11/2025 10:28 AM EDT [facility] at 1028 EDT Comment The background liver parenchyma harbors features of chronic liver disease, namely steatohepatitis. Further clinical workup may be indicated for appropriate classification and staging. 01/11/2025 10:28 AM EDT [facility] Clinical Information Metastatic colon cancer to liver (CMS/HCC) [C18.9, C78.7] 01/11/2025 10:28 AM EDT [facility] Gross Description A. PARTIAL OMENTECTOMY The specimen is received fresh and subsequently placed in formalin labeled p artial omentectomy is a portion of omentum measuring 13 x 10.5 x 0.8 cm. The external surface is martino-yellow and lobulated. One possible martino-white nodule measuring 1.1 x 0.6 x 0.5 cm is identified. The external surface of nodule is inked blue. The specimen is serially sectioned to reveal area of martino-white possible fibrosis. Rest of the cut surface is martino-yellow and lobulated. The traveling sales representative section of specimen are submitted as: A1: Transportation Superintendent section of nodule A2-A3: Transportation Superintendent section of specimen Cold Time: 4h 05m YAHIR Toney B. SEGMENT 8 PARTIAL HEPATECTOMY The specimen is received fresh and subsequently placed in formalin labeled s egment eight partial hepatectomy i s a segment of liver measuring 30 g, 6.5 x 4.2 x 1.6 cm. The external surface of specimen is martino-brown, smooth at capsular surface and rough on the margin side. The specimen has 1.8 x 1.6 x 1.1 cm martino-white nodule. The nodule is 0.6 cm from the resection margin and abutting the capsular surface. The specimen is previously bisected into 2 halves. Surgical resection margins are inked blue and capsular surface is inked black. The specimen is serially sectioned to reveal martino-white cut surface of nodule. No additional nodule or mass identified. Transportation Superintendent sectioned of specimen are submitted as: B1: Nodule to closest surgical resection margin B2: Nodule to normal parenchyma B3: Normal parenchyma Cold Time: 3h 19m YAHIR Toney C. GALLBLADDER The specimen is received fresh and subsequently placed in formalin labeled g allbladder is a gallbladder measuring 8 x 5.2 x 4.7 cm. The serosal surfaces martino-pink and smooth. The gallbladder is opened to reveal martino-green fluid. The mucosal surface is martino-green and velvety. The average thickness of wall is 0.2 cm. No polyp or mass identified. No gallstone grossly identified. Cystic duct margin (en face), traveling sales representative sections of gallbladder neck, and body are submitted in cassette C1. Cold Time: 2h 32m YAHIR Toney 01/11/2025 10:28 AM EDT [facility] Note: A resident was involved in the service. I attest I examined the relevant preparations for the specimens and confirmed the diagnosis or interpretation. 01/11/2025 10:28 AM EDT [facility] Tissue Topography unknown / Unknown 01/06/2025 12:59 PM EDT 01/06/2025 4:18 PM EDT Comment:Pre-op diagnosis: Metastatic colon cancer to liver (CMS/HCC) [C18.9, C78.7] Tissue specimen (specimen) Gallbladder structure / Unknown 01/06/2025 1:46 PM EDT 01/06/2025 4:18 PM EDT Comment:Pre-op diagnosis: Metastatic colon cancer to liver (CMS/HCC) [C18.9, C78.7] Tissue specimen (specimen) Topography unknown / Unknown 01/06/2025 12:13 PM EDT 01/06/2025 4:18 PM EDT us Farhad Castillo MD LAB PATHOLOGY ORDERABLES F inal Result [facility] [address] [place] [address] * Surgical Pathology Exam (01/06/2025 12:13 PM EDT) Case Report Surgical Pathology Case: [id number] Authorizing Provider: Heidi March MD Collected: 01/06/2025 1213 Ordering Location: [facility] OPERATING RO[facility] Received: 01/06/2025 1618 Pathologist: Paulo Morrison MD Specimens: A) - Other (specify site), Partial Omentectomy B) - Other (specify site), Segment 8 partial hepatectomy C) - Gallbladder, gallbladder 01/11/2025 10:[address] [facility] Final Diagnosis A. OMENTUM, PARTIAL OMENTECTOMY: - BENIGN FIBROADIPOSE TISSUE; NEGATIVE FOR TUMOR B. LIVER, SEGMENT EIGHT, PARTIAL HEPATECTOMY: - METASTATIC MODERATELY DIFFERENTIATED ADENOCARCINOMA (1.8 CM), MORPHOLOGICALLY CONSISTENT WITH THE PATIENT'S KNOWN CECUM PRIMARY - NEGATIVE MARGINS OF RESECTION - BACKGROUND HEPATIC PARENCHYMA WITH ONGOING STEATOHEPATITIS, AND MILD FIBROSIS (SEE COMMENT) C. GALLBLADDER, CHOLECYSTECTOMY: - MILD CHRONIC CHOLECYSTITIS - NEGATIVE FOR TUMOR 01/11/2025 10:[address] [facility] at 1028 EDT Comment The background liver parenchyma harbors features of chronic liver disease, namely steatohepatitis. Further clinical workup may be indicated for appropriate classification and staging. 01/11/2025 10:28 AM EDT [facility] Clinical Information Metastatic colon cancer to liver (CMS/HCC) [C18.9, C78.7] 01/11/2025 10:28 AM EDT [facility] Gross Description A. PARTIAL OMENTECTOMY The specimen is received fresh and subsequently placed in formalin labeled p artial omentectomy is a portion of omentum measuring 13 x 10.5 x 0.8 cm. The external surface is martino-yellow and lobulated. One possible martino-white nodule measuring 1.1 x 0.6 x 0.5 cm is identified. The external surface of nodule is inked blue. The specimen is serially sectioned to reveal area of martino-white possible fibrosis. Rest of the cut surface is martino-yellow and lobulated. The traveling sales representative section of specimen are submitted as: A1: Transportation Superintendent section of nodule A2-A3: Transportation Superintendent section of specimen Cold Time: 4h 05m YAHIR Toney B. SEGMENT 8 PARTIAL HEPATECTOMY The specimen is received fresh and subsequently placed in formalin labeled s egment eight partial hepatectomy i s a segment of liver measuring 30 g, 6.5 x 4.2 x 1.6 cm. The external surface of specimen is martino-brown, smooth at capsular surface and rough on the margin side. The specimen has 1.8 x 1.6 x 1.1 cm martino-white nodule. The nodule is 0.6 cm from the resection margin and abutting the capsular surface. The specimen is previously bisected into 2 halves. Surgical resection margins are inked blue and capsular surface is inked black. The specimen is serially sectioned to reveal martino-white cut surface of nodule. No additional nodule or mass identified. Transportation Superintendent sectioned of specimen are submitted as: B1: Nodule to closest surgical resection margin B2: Nodule to normal parenchyma B3: Normal parenchyma Cold Time: 3h 19m YAHIR Toney C. GALLBLADDER The specimen is received fresh and subsequently placed in formalin labeled g allbladder is a gallbladder measuring 8 x 5.2 x 4.7 cm. The serosal surfaces amrtino-pink and smooth. The gallbladder is opened to reveal martino-green fluid. The mucosal surface is martino-green and velvety. The average thickness of wall is 0.2 cm. No polyp or mass identified. No gallstone grossly identified. Cystic duct margin (en face), traveling sales representative sections of gallbladder neck, and body are submitted in cassette C1. Cold Time: 2h 32m YAHIR Toney 01/11/2025 10:28 AM EDT [facility] Note: A resident was involved in the service. I attest I examined the relevant preparations for the specimens and confirmed the diagnosis or interpretation. 01/11/2025 10:28 AM EDT [facility] Tissue Topography unknown / Unknown 01/06/2025 12:13 PM EDT 01/06/2025 4:18 PM EDT Comment:Pre-op diagnosis: Metastatic colon cancer to liver (CMS/HCC) [C18.9, C78.7] Tissue specimen (specimen) Topography unknown / Unknown 01/06/2025 12:59 PM EDT 01/06/2025 4:18 PM EDT Tissue specimen (specimen) Gallbladder structure / Unknown 01/06/2025 1:46 PM EDT 01/06/2025 4:18 PM EDT us Heidi March MD LAB PATHOLOGY ORDERABLES Fin al Result Performing Organization Address City/[facility]/ZIP Co de Phone Number [facility] [address] [place] [address] * (ABNORMAL) POCT glucose meter (01/06/2025 9:37 AM EDT) POCT Glucose 149(H) 74 - 99 mg/dL 01/06/2025 9:38 AM EDT [facility] Comment:Accuracy of [...] to the main labortory for testing. Comment 01/06/2025 9:38 AM EDT [facility] Dowel Pointer ID Luiza Ramesh 01/06/2025 9:38 AM EDT [facility] Device ID [id number] 01/06/2025 9:38 AM EDT [facility] Specimen Type POC Capillary 01/06/2025 9:38 AM EDT [facility] Blood Capillary blood specimen / Unknown 01/06/2025 9:37 AM EDT 01/06/2025 9:38 AM EDT us Farhad Castillo MD LAB POINT OF CARE TEST DOCKED DEVICE UNSOLICITED RESULTS Final Result Performing Organization Address City/[facility]/ZIP Co de Phone Number [facility] [address] [place] [address] documented in this encounter Visit Diagnoses Diagnosis Metastatic colon cancer to liver- Primary Post-op pain Other acute postoperative pain Electrolyte abnormality Electrolyte and fluid disorders not elsewhere classified Leukocytosis Leukocytosis, unspecified documented in this encounter Admitting Diagnoses Diagnosis Metastatic colon cancer to liver documented in this encounter Administered Medications Inactive Administered Medications - up to 3 most recent administrations Medication Order MAR Action Action Date Dose Rate Site carvedilol (Coreg) tablet 12.5 mg 12.5 mg, Oral, 2 times daily with meals, First dose on [facility] 01/07/25 at 0900, Until Discontinued, Routine Given 01/07/2025 9:06 AM EDT 12.5 mg carvedilol (Coreg) tablet 12.5 mg 12.5 mg, Oral, 2 times daily, First dose (after last modification) on [facility] 01/07/25 at 2100, Until Discontinued, Routine Given 01/08/2025 8:12 AM EDT 12.5 mg Given 01/07/2025 8:13 PM EDT 12.5 mg carvedilol (Coreg) tablet 12.5 mg 12.5 mg, Oral, 2 times daily, First dose on Sat01/11/25 at 1200, Until Discontinued, Routine Given 01/13/2025 8:10 AM EDT 12.5 mg Given 01/12/2025 8:34 PM EDT 12.5 mg Given 01/12/2025 8:45 AM EDT 12.5 mg cefOXitin (Mefoxin) 2 g in sodium chloride 0.9% 100 mL IVPB (vial adapter required) 2 g, Intravenous, Every 6 hours, 3 doses, First dose on [facility] 01/07/25 at 0730, Last dose on [facility] 01/07/25 at 1930, Routine New Bag 01/07/2025 8:13 PM EDT 2 g 220 mL/hr New Bag 01/07/2025 1:48 PM EDT 2 g 220 mL/hr New Bag 01/07/2025 9:05 AM EDT 2 g 220 mL/hr cyclobenzaprine (Flexeril) tablet 5 mg 5 mg, Oral, 3 times daily, First dose on Sat01/11/25 at 0900, Until Discontinued, Routine Given 01/13/2025 8:10 AM EDT 5 mg Given 01/12/2025 8:33 PM EDT 5 mg Given 01/12/2025 5:10 PM EDT 5 mg dextrose 10 % (D10W) bolus 125 mL 125 mL, Intravenous, Every 15 min PRN, Starting on Sat01/06/25 at 1621, Until Sat01/13/25 at 1150, Administer over 15 Minutes, Routine, low blood sugar BG 51-89 mg/dL dextrose 10 % (D10W) bolus 250 mL 250 mL, Intravenous, Every 15 min PRN, Starting on Sat01/06/25 at 1621, Until Sat01/13/25 at 1150, Administer over 15 Minutes, Routine, PRN low blood sugar BG =/<50 mg/dL dextrose 5 % and lactated Ringer's infusion 84 mL/hr, Intravenous, Continuous, Starting on Sat01/06/25 at 1715, Until [facility] 01/07/25 at 0606, Routine New Bag 01/07/2025 4:08 AM EDT 84 mL/ hr 84 mL/hr New Bag 01/06/2025 4:38 PM EDT 84 mL/hr 84 mL/hr enoxaparin (Lovenox) syringe 40 mg 40 mg, Subcutaneous, Daily, First dose on Sat01/11/25 at 1700, Until Discontinued, Routine Given 01/13/2025 8:10 AM EDT 40 mg Left Upper Arm (Back) Given 01/12/2025 8:44 AM EDT 40 mg Le ft Upper Arm (Back) Given 01/11/2025 6:30 PM EDT 40 mg Le ft Lower Abdomen glucagon (human recombinant) injection 1 mg 1 mg, Intramuscular, Every 15 min PRN, Starting on Sat01/06/25 at 1621, Until Sat01/13/25 at 1150, Routine, Recovery(Phase II-Outpatient)/On Unit(Inpatient), low blood sugar per Hypoglycemia Prevention and Treatment protocol glucose (Glutose) 40 % oral gel 15-30 grams of glucose 15-30 grams of glucose, Sublingual, Every 15 min PRN, Starting on Sat01/06/25 at 1621, Until Sat01/13/25 at 1150, Routine, Recovery(Phase II-Outpatient)/On Unit(Inpatient), low blood sugar, per Hypoglycemia Prevention and Treatment protocol Given 01/11/2025 12:50 AM EDT 15 grams of glucose heparin (porcine) injection 5,000 Units 5,000 Units, Subcutaneous, Once, 1 dose, On Sat01/06/25 at 0945, Routine, Holding - Preprocedure Given 01/06/2025 10:37 AM EDT 5,000 Units Right Upper Arm (Back) heparin (porcine) injection 5,000 Units 5,000 Units, Subcutaneous, Every 8 hours scheduled, First dose on Sat01/06/25 at 1830, Until Discontinued, Routine, Recovery(Phase II-Outpatient)/On Unit(Inpatient), On hold since Sat01/11/2025 at 0649 until manually unheld Given 01/11/2025 5:10 AM EDT 5,000 Units Right Upper Arm (Back) Given 01/10/2025 9:50 PM EDT 5,000 Units L eft Lower Abdomen Given 01/10/2025 1:23 PM EDT 5,000 Units L eft Lower Abdomen HYDROmorphone (PF) 10 mcg/mL + bupivacaine (PF) 1.25 mg/mL in 100 mL (PF) [employer] Continuous Rate: 2 mL/hr, PCEA Dose: 1 mL, PCEA Lockout: 10 Minutes, Nurse Loading Dose: Not Ordered, Epidural, Routine Rate Change - Dual Sign 01/10/2025 10:43 AM EDT Rate/Dose Verify 01/10/2025 8:00 AM EDT New Bag 01/10/2025 6:24 AM EDT hydromorphone 10 mcg/mL + bupivacaine 1.25 mg/mL clinician bolus dose 1-5 mL, Epidural, As needed, Starting on Sat01/06/25 at 1746, Until Sat01/13/25 at 0557, Routine, severe pain Bolus from Bag 01/06/2025 5:47 PM EDT 5 mL insulin glargine-yfgn 100 UNIT/ML injection 10 Units 10 Units, Subcutaneous, Every 24 hours, First dose (after last modification) on Sat01/11/25 at 1800, Until Discontinued, Routine Given 01/12/2025 5:26 PM EDT 10 Units Left Upper Arm (Back) Given 01/11/2025 6:29 PM EDT 10 Units Le ft Lower Abdomen insulin glargine-yfgn 100 UNIT/ML injection 20 Units 20 Units, Subcutaneous, Every 24 hours, First dose on [facility] 01/07/25 at 1800, Until Discontinued, Routine Given 01/10/2025 5:45 PM EDT 20 Units Left Upper Arm (Back ) Given 01/09/2025 5:57 PM EDT 20 Units Le ft Lower Abdomen Given 01/08/2025 6:25 PM EDT 20 Units Le ft Lower Abdomen insulin lispro (Admelog) 100 units/mL injection - Correction - Resistant Dose 0-10 Units, Subcutaneous, 3 times daily with meals, First dose on Sat01/11/25 at 1230, Until Discontinued, Routine Given 01/12/2025 5:25 PM EDT 2 Units Left Upper Arm (Back ) Given 01/12/2025 12:29 PM EDT 2 Units L eft Upper Arm (Back) insulin lispro (Admelog) injection - Correction - Nighttime Dose 0-3 Units, Subcutaneous, 2 times nightly (2100 & 0300), First dose on Sat01/11/25 at 2100, Until Discontinued, Routine Insulin Lispro (Admelog, HumaLOG) 100 UNIT/ML injection 2 Units 2 Units, Subcutaneous, 3 times daily with meals, First dose on Sat01/12/25 at 1730, Until Discontinued, Routine Given 01/12/2025 5:25 PM EDT 2 Units Left Upper Arm (Back ) insulin regular (HumuLIN R,NovoLIN R) 100 UNIT/ML injection 4 Units 4 Units, Subcutaneous, Every 6 hours scheduled, First dose on Sat01/07/25 at 0700, Until Discontinued, Routine Given 01/07/2025 12:36 PM EDT 4 Units Left Lower Abdomen Given 01/07/2025 9:06 AM EDT 4 Units Le ft Upper Arm (Back) insulin regular (HumuLIN R,NovoLIN R) 100 UNIT/ML injection 6 Units 6 Units, Subcutaneous, Every 6 hours scheduled, First dose (after last modification) on Sat01/07/25 at 1800, Until Discontinued, Routine Given 01/07/2025 6:00 PM EDT 6 Units Left Lower Abdomen insulin regular (HumuLIN R,NovoLIN R) 100 UNIT/ML injection 6 Units 6 Units, Subcutaneous, 4 times daily before meals and nightly, First dose (after last modification) on [facility] 01/07/25 at 2100, Until Discontinued, Routine, Recovery(Phase II-Outpatient)/On Unit(Inpatient) Given 01/08/2025 9:05 AM EDT 6 Units Le ft Lower Abdomen Given 01/07/2025 8:42 PM EDT 6 Units Le ft Lower Abdomen insulin regular (HumuLIN R,NovoLIN R) 100 UNIT/ML injection 8 Units 8 Units, Subcutaneous, Every 6 hours scheduled, First dose (after last modification) on Sat01/08/25 at 1800, Until Discontinued, Routine, Recovery(Phase II-Outpatient)/On Unit(Inpatient) Given 01/10/2025 5:45 PM EDT 8 Units Left Upper Arm (Back ) Given 01/10/2025 6:19 AM EDT 8 Units Le ft Lower Abdomen Given 01/09/2025 11:58 PM EDT 8 Units L eft Lower Abdomen insulin regular (HumuLIN R,NovoLIN R) 100 units/mL injection - Correction - Resistant Dose 0-10 Units, Subcutaneous, Every 6 hours scheduled, First dose on Sat01/06/25 at 1800, Until Discontinued, Routine, Recovery(Phase II-Outpatient)/On Unit(Inpatient) Given 01/07/2025 6:00 PM EDT 6 Units Left Lower Abdomen Given 01/07/2025 12:36 PM EDT 8 Units L eft Lower Abdomen Given 01/07/2025 6:54 AM EDT 6 Units Le ft Upper Arm (Back) insulin regular (HumuLIN R,NovoLIN R) 100 units/mL injection - Correction - Resistant Dose 0-10 Units, Subcutaneous, 4 times daily before meals and nightly, First dose (after last modification) on Sat01/07/25 at 2100, Until Discontinued, Routine, Recovery(Phase II-Outpatient)/On Unit(Inpatient) Given 01/08/2025 9:05 AM EDT 4 Units Left Lower Abdomen Given 01/07/2025 8:42 PM EDT 4 Units Le ft Lower Abdomen insulin regular (HumuLIN R,NovoLIN R) 100 units/mL injection - Correction - Resistant Dose 0-10 Units, Subcutaneous, Every 6 hours scheduled, First dose (after last modification) on Sat01/08/25 at 1400, Until Discontinued, Routine, Recovery(Phase II-Outpatient)/On Unit(Inpatient) Given 01/08/2025 6:24 PM EDT 2 Units Left Lower Abdomen Given 01/08/2025 2:38 PM EDT 2 Units Le ft Lower Abdomen labetalol (Normodyne,Trandate) injection 10 mg 10 mg, Intravenous, Every 15 min PRN, 3 doses, Starting on Sat01/06/25 at 1633, Until Sat01/06/25 at 1800, Routine, Recovery (Phase I only), high blood pressure, SBP>165, hold for HR<65 Given 01/06/2025 6:00 PM EDT 10 mg Given 01/06/2025 5:29 PM EDT 10 mg Given 01/06/2025 4:42 PM EDT 10 mg labetalol (Normodyne,Trandate) injection 10 mg 10 mg, Intravenous, Every 6 hours, First dose on Sat01/08/25 at 1800, Until Discontinued, Routine Given 01/11/2025 5:11 AM EDT 10 mg Given 01/10/2025 5:46 PM EDT 10 mg Given 01/10/2025 12:21 PM EDT 10 mg lactated Ringer's infusion 42 mL/hr, Intravenous, Continuous, Starting on Sat01/07/25 at 0700, Until Sat01/12/25 at 0547, Routine New Bag 01/10/2025 10:16 PM EDT 42 mL/hr 42 mL /hr Rate/Dose Change 01/10/2025 4:16 PM EDT 42 mL/hr 42 mL/h r New Bag 01/10/2025 12:00 AM EDT 84 mL/hr 84 mL/hr magnesium sulfate IVPB 2 g 2 g, Intravenous, Once, 1 dose, On [facility] 01/07/25 at 0630, Routine Bag 01/07/2025 6:54 AM EDT 2 g 25 mL/hr magnesium sulfate IVPB 2 g 2 g, Intravenous, Once, 1 dose, On 01/09/25 at 0530, Routine New Bag 01/09/2025 5:09 AM EDT 2 g 25 mL/hr magnesium sulfate IVPB 2 g 2 g, Intravenous, Once, 1 dose, On Sat01/11/25 at 0545, Routine New Bag 01/11/2025 5:10 AM EDT 2 g 25 mL/hr magnesium sulfate IVPB 2 g 2 g, Intravenous, Once, 1 dose, On Sat01/12/25 at 0645, Routine New Bag 01/12/2025 5:56 AM EDT 2 g 25 mL/hr magnesium sulfate IVPB 2 g 2 g, Intravenous, Once, 1 dose, On Sat01/13/25 at 0630, Routine New Bag 01/13/2025 6:08 AM EDT 2 g 25 mL/hr methocarbamol (Robaxin) injection 1,000 mg 1,000 mg, Intravenous, Every 8 hours, 9 doses, First dose on [facility] 01/07/25 at 0730, Last dose on 01/09/25 at 2330, Routine Given 01/09/2025 10:06 PM EDT 1,000 mg Given 01/09/2025 2:39 PM EDT 1,000 mg Given 01/09/2025 7:55 AM EDT 1,000 mg mupirocin (Bactroban) 2 % ointment 1 Application Each Nostril, 2 times daily, 10 doses, First dose on Sat01/06/25 at 2100, Last dose on Sat01/11/25 at 0900, Routine Given 01/10/2025 9:50 PM EDT 1 Application Given 01/10/2025 8:41 AM EDT 1 Application Given 01/09/2025 10:05 PM EDT 1 Application ondansetron (Zofran) 4 MG/5ML solution 4 mg 4 mg, Oral, Every 6 hours PRN, Starting on Sat01/08/25 at 0253, Until Sat01/13/25 at 1150, Routine, nausea, vomiting ondansetron (Zofran) injection 4 mg 4 mg, Intravenous, Every 6 hours PRN, Starting on Sat01/08/25 at 0253, Until Sat01/13/25 at 1150, Routine, vomiting, nausea Given 01/08/2025 2:57 AM EDT 4 mg ondansetron ODT (Zofran-ODT) disintegrating tablet 4 mg 4 mg, Oral, Every 6 hours PRN, Starting on Sat01/08/25 at 0253, Until Sat01/13/25 at 1150, Routine, nausea, vomiting oxyCODONE (Roxicodone) immediate release tablet 5 mg 5 mg, Oral, Every 6 hours PRN, Starting on Sat01/11/25 at 0746, Until Sat01/13/25 at 1150, Routine, moderate pain Given 01/11/2025 10:19 AM EDT 5 mg pantoprazole (Protonix) EC tablet 40 mg 40 mg, Oral, Daily, First dose on Sat01/11/25 at 0900, Until Discontinued, Routine Given 01/13/2025 8:10 AM EDT 40 mg Given 01/12/2025 8:45 AM EDT 40 mg Given 01/11/2025 10:20 AM EDT 40 mg pantoprazole (Protonix) injection 40 mg 40 mg, Intravenous, Daily, First dose on Sat01/06/25 at 1715, Until Discontinued, Routine, Recovery(Phase II-Outpatient)/On Unit(Inpatient) Given 01/10/2025 8:41 AM EDT 40 mg Given 01/09/2025 7:55 AM EDT 40 mg Given 01/08/2025 8:12 AM EDT 40 mg potassium chloride CR (Klor-Con) ER tablet 40 mEq 40 mEq, Oral, Once, 1 dose, On Sat01/12/25 at 0645, Routine Given 01/12/2025 5:56 AM EDT 40 mEq potassium chloride IVPB 10 mEq 10 mEq, Intravenous, Every 1 hour, 4 doses, First dose on Sat01/11/25 at 0615, Last dose on Sat01/11/25 at 0915, RoutineIndications:Hypokalemia New Bag 01/11/2025 4:57 PM EDT 10 mEq 100 mL/hr New Bag 01/11/2025 3:20 PM EDT 10 mEq 100 mL/hr New Bag 01/11/2025 11:56 AM EDT 10 mEq 100 mL/hr Povidone-Iodine 5 % swab solution 1 Application Nasal, Once, 1 dose, On Sat01/06/25 at 1030, Routine Given 01/06/2025 9:50 AM EDT 1 Application Sodium Phosphate-NaCl IVPB 15 mmol 15 mmol, Intravenous, Once, 1 dose, On Sat01/08/25 at 0630, Routine Given 01/08/2025 8:11 AM EDT 15 mmol 62.5 mL/hr Sodium Phosphate-NaCl IVPB 15 mmol 15 mmol, Intravenous, Once, 1 dose, On Sat01/09/25 at 0530, Routine Given 01/09/2025 9:06 AM EDT 15 mmol 62.5 mL/hr documented in this encounter Active and Recently Administered Medications Times are shown in EDT. Scheduled Medication Order 01/11/2025 01/12/2025 01/13/2025 carvedilol (Coreg) tablet 12.5 mg 12.5 mg, Oral, 2 times daily, First dose on Sat01/11/25 at 1200, Until Discontinued, Routine 1234 (Given - Provider: Flor Abarca RN)214 (Given - Provider: Bandar Bettencourt) 0845 (Given - Provider: Katelynn Lowery RN)2033 (Given - Provider: Tereza Pham, JAN) 0810 (Given - Provider: Katelynn Lowery RN) cyclobenzaprine (Flexeril) tablet 5 mg 5 mg, Oral, 3 times daily, First dose on Sat01/11/25 at 0900, Until Discontinued, Routine 1019 (Given - Provider: Flor Abarca RN)1829 (Given - Provider: Flor Abarca RN)2141 (Given - Provider: Bandar Bettencourt) 0845 (Given - Provider: Katelynn Lowery RN)1710 (Given - Provider: Katelynn Lowery RN)2032 (Given - Provider: Tereza Pham RN) 0810 (Given - Provider: Katelynn Lowery RN) enoxaparin (Lovenox) syringe 40 mg 40 mg, Subcutaneous, Daily, First dose on Sat01/11/25 at 1700, Until Discontinued, Routine 1830 (Given - Provider: Flor Abarca RN) 0844 (Given - Provider: Katelynn Lowery RN) 0810 (Given - Provider: Katelynn Lowery RN) heparin (porcine) injection 5,000 Units (CANCELED) 5,000 Units, Subcutaneous, Every 8 hours scheduled, First dose on Sat01/06/25 at 1830, Until Discontinued, Routine, Recovery(Phase II-Outpatient)/On Unit(Inpatient), On hold since Sat01/11/2025 at 0649 until manually unheld 0510 (Given - Provider: Valerie Cheung)0649 (Held by provider - Provider: Cyndi Sol MD - Reason: Epidural Placement or Removal)1313 (Unheld by provider - Provider: Cyndi Sol MD) insulin glargine-yfgn 100 UNIT/ML injection 10 Units 10 Units, Subcutaneous, Every 24 hours, First dose (after last modification) on Sat01/11/25 at 1800, Until Discontinued, Routine 1829 (Given - Provider: Flor Abarca RN) 1726 (Given - Provider: Katelynn Lowery, JAN) insulin lispro (Admelog) 100 units/mL injection - Correction - Resistant Dose 0-10 Units, Subcutaneous, 3 times daily with meals, First dose on Sat01/11/25 at 1230, Until Discontinued, Routine 1156 (Not Given - Provider: Flor Abarca RN - Reason: Order parameters not met)1658 (Not Given - Provider: lFor Abarca RN - Reason: Order parameters not met) 0811 (Not Given - Provider: Katelynn Lowery RN - Reason: Order parameters not met)1229 (Given - Provider: Katelynn Lowery, JAN)1725 (Given - Provider: Katelynn Lowery RN) 0741 (Not Given - Provider: Katelynn Lowery RN - Reason: Order parameters not met) insulin lispro (Admelog) injection - Correction - Nighttime Dose 0-3 Units, Subcutaneous, 2 times nightly (2100 & 0300), First dose on Sat01/11/25 at 2100, Until Discontinued, Routine 2143 (Not Given - Provider: Bandar Bettencourt - Reason: Order parameters not met) 0218 (Not Given - Provider: Bandar Bettencourt - Reason: Order parameters not met)202 (Not Given - Provider: Tereza Pham RN - Reason: Hold for condition: must add comment - Comment: bs 186) 0357 (Not Given - Provider: Tereza Pham, JAN - Reason: Order parameters not met) Insulin Lispro (Admelog, HumaLOG) 100 UNIT/ML injection 2 Units 2 Units, Subcutaneous, 3 times daily with meals, First dose on Sat01/12/25 at 1730, Until Discontinued, Routine 1725 (Given - Provider: Katelynn Lowery, JAN) 0830 (Canceled Entry - Provider: Automatic Discharge Provider - Comment: Automatically canceled at discontinue of medication order) labetalol (Normodyne,Trandate) injection 10 mg (CANCELED) 10 mg, Intravenous, Every 6 hours, First dose on Sat01/08/25 at 1800, Until Discontinued, Routine 0033 (Return to Cabinet - Provider: Valerie Cheung - Comment: parimeters not met)0511 (Given - Provider: Valerie Cheung) magnesium sulfate IVPB 2 g (COMPLETED) 2 g, Intravenous, Once, 1 dose, On Sat01/11/25 at 0545, Routine 0510 (New Bag - Provider: Valerie Cheung) magnesium sulfate IVPB 2 g (COMPLETED) 2 g, Intravenous, Once, 1 dose, On Sat01/12/25 at 0645, Routine 0556 (New Bag - Provider: Bandar Bettencourt) magnesium sulfate IVPB 2 g (COMPLETED) 2 g, Intravenous, Once, 1 dose, On Sat01/13/25 at 0630, Routine 0608 (New Bag - Provider: Tereza Pham, JAN) pantoprazole (Protonix) EC tablet 40 mg 40 mg, Oral, Daily, First dose on Sat01/11/25 at 0900, Until Discontinued, Routine 1020 (Given - Provider: Flor Abarca RN) 0845 (Given - Provider: Katelynn Lowery RN) 0810 (Given - Provider: Katelynn Lowery RN) potassium chloride CR (Klor-Con) ER tablet 40 mEq (COMPLETED) 40 mEq, Oral, Once, 1 dose, On Sat01/12/25 at 0645, Routine 0556 (Given - Provider: Bandar Bettencourt) potassium chloride IVPB 10 mEq (COMPLETED) 10 mEq, Intravenous, Every 1 hour, 4 doses, First dose on Sat01/11/25 at 0615, Last dose on Sat01/11/25 at 0915, Routine 1020 (New Bag - Provider: Flor Abarca RN)1156 (New Bag - Provider: Flor Abarca RN)1520 (New Bag - Provider: Flor Abarca, JAN)1657 (New Bag - Provider: Flor Abarca, RN) PRN Medication Order 01/11/2025 01/12/2025 01/13/2025 dextrose 10 % (D10W) bolus 125 mL(Linked Group 1) 125 mL, Intravenous, Every 15 min PRN, Starting on Sat01/06/25 at 1621, Until Sat01/13/25 at 1150, Administer over 15 Minutes, Routine, low blood sugar BG 51-89 mg/dL 0050 (See Alternative - Provider: Valerie Cheung) dextrose 10 % (D10W) bolus 250 mL(Linked Group 1) 250 mL, Intravenous, Every 15 min PRN, Starting on Sat01/06/25 at 1621, Until Sat01/13/25 at 1150, Administer over 15 Minutes, Routine, PRN low blood sugar BG =/<50 mg/dL 0050 (See Alternative - Provider: Valerie Cheung) glucagon (human recombinant) injection 1 mg(Linked Group 1) 1 mg, Intramuscular, Every 15 min PRN, Starting on Sat01/06/25 at 1621, Until Sat01/13/25 at 1150, Routine, Recovery(Phase II-Outpatient)/On Unit(Inpatient), low blood sugar per Hypoglycemia Prevention and Treatment protocol 0050 (See Alternative - Provider: Valerie Cheung) glucose (Glutose) 40 % oral gel 15-30 grams of glucose(Linked Group 1) 15-30 grams of glucose, Sublingual, Every 15 min PRN, Starting on Sat01/06/25 at 1621, Until Sat01/13/25 at 1150, Routine, Recovery(Phase II-Outpatient)/On Unit(Inpatient), low blood sugar, per Hypoglycemia Prevention and Treatment protocol 0050 (Given - Provider: Valerie Cheung) ondansetron (Zofran) 4 MG/5ML solution 4 mg(Linked Group 2) 4 mg, Oral, Every 6 hours PRN, Starting on Sat01/08/25 at 0253, Until Sat01/13/25 at 1150, Routine, nausea, vomiting ondansetron (Zofran) injection 4 mg(Linked Group 2) 4 mg, Intravenous, Every 6 hours PRN, Starting on Sat01/08/25 at 0253, Until Sat01/13/25 at 1150, Routine, vomiting, nausea ondansetron ODT (Zofran-ODT) disintegrating tablet 4 mg(Linked Group 2) 4 mg, Oral, Every 6 hours PRN, Starting on Sat01/08/25 at 0253, Until Sat01/13/25 at 1150, Routine, nausea, vomiting oxyCODONE (Roxicodone) immediate release tablet 5 mg(Linked Group 3) 5 mg, Oral, Every 6 hours PRN, Starting on Sat01/11/25 at 0746, Until Sat01/13/25 at 1150, Routine, moderate pain 1019 (Given - Provider: Flor Abarca RN) Linked Groups Order Group 1: glucose (Glutose) 40 % oral gel 15-30 grams of glucoseJump to med 15-30 grams of glucose, Sublingual, Every 15 min PRN, Starting on Sat01/06/25 at 1621, Until Sat01/13/25 at 1150, Routine, Recovery(Phase II-Outpatient)/On Unit(Inpatient), low blood sugar, per Hypoglycemia Prevention and Treatment protocol Or dextrose 10 % (D10W) bolus 125 mLJump to med 125 mL, Intravenous, Every 15 min PRN, Starting on Sat01/06/25 at 1621, Until Sat01/13/25 at 1150, Administer over 15 Minutes, Routine, low blood sugar BG 51-89 mg/dL Or dextrose 10 % (D10W) bolus 250 mLJump to med 250 mL, Intravenous, Every 15 min PRN, Starting on Sat01/06/25 at 1621, Until Sat01/13/25 at 1150, Administer over 15 Minutes, Routine, PRN low blood sugar BG =/<50 mg/dL Or glucagon (human recombinant) injection 1 mgJump to med 1 mg, Intramuscular, Every 15 min PRN, Starting on Sat01/06/25 at 1621, Until Sat01/13/25 at 1150, Routine, Recovery(Phase II-Outpatient)/On Unit(Inpatient), low blood sugar per Hypoglycemia Prevention and Treatment protocol Group 2: ondansetron ODT (Zofran-ODT) disintegrating tablet 4 mgJump to med 4 mg, Oral, Every 6 hours PRN, Starting on Sat01/08/25 at 0253, Until Sat01/13/25 at 1150, Routine, nausea, vomiting Or ondansetron (Zofran) injection 4 mgJump to med 4 mg, Intravenous, Every 6 hours PRN, Starting on Sat01/08/25 at 0253, Until Sat01/13/25 at 1150, Routine, vomiting, nausea Or ondansetron (Zofran) 4 MG/5ML solution 4 mgJump to med 4 mg, Oral, Every 6 hours PRN, Starting on Sat01/08/25 at 0253, Until Sat01/13/25 at 1150, Routine, nausea, vomiting Group 3: oxyCODONE (Roxicodone) immediate release tablet 5 mgJump to med 5 mg, Oral, Every 6 hours PRN, Starting on Sat01/11/25 at 0746, Until Sat01/13/25 at 1150, Routine, moderate pain Or oxyCODONE (Roxicodone) immediate release tablet 10 mg (CANCELED) 10 mg, Oral, Every 6 hours PRN, Starting on Sat01/11/25 at 0746, Until Sat01/13/25 at 0557, Routine, severe pain documented in this encounter Additional Health Concerns Active Problems Noted Date Diagnosed Date Autogenerated Problem 12/24/2024 Assessment Noted Time A fall risk assessment has been complete d for the patient 12/24/2024 8:48 AM EDT A Body Mass Index follow-up plan has been documented for the patient 01/13/2025 8:18 AM EDT documented as of this encounter Care Teams Relief Map Modeler Relationship Specialty Start Date End Date Tayo Jones MD [address] [place] [address] PCP - General 07/14/24 documented as of this encounter
--- OUTSIDE RECORDS SUMMARY | 2025-01-06 09:50 | XMS_ITS | Encounter Summary ---
Author Organization [facility] Address [address] [id number] Care Team Providers Care Notch Grinder Name Role Phone Tayo Jones MD Primary Care Provider [phone] Reason for Visit * Auth/Cert (Routine) Specialty Diagnoses / Procedures Referred By Samia pagan Referred To Contact Diagnoses Metastatic colon cancer to liver Metastatic colon cancer to liver (CMS/HCC) [C18.9, C78.7] Procedures OK RESEC LIVER,PART LOBECTOMY OK RPR AA HERNIA 1ST 3-10 CM REDUCIBLE HEPATECTOMY, PARTIAL REPAIR, HERNIA, EPIGASTRIC Farhad Castillo MD [address] [address] Phone: tel: fax: [facility] [address] [place] [phone] Phone: tel: Referral ID Status Reason Start Date Expiration Date Visits Re quested Visits Authorized [id number] 1 1 Encounter Details Date Type Department Care Team (Late st Contact Info) Description 01/06/2025 10:50 AM EDT - 01/06/2025 4:15 PM EDT Surgery [facility] [address] [place] [phone] Farhad Castillo MD [address] [phone] HEPATECTOMY, PARTIAL, microwave ablation, cholecystectomy [70573 (CPT )] Surgery Details Date/Time Status Location OR Service Patient Class Case Class Case Type Trauma Case? 01/06/2025 10:50 AM Posted [facility] 15 Surgical Oncology Surgery Admit E-Electi ve Panel 1 Procedure [facility] Wound Class Comments HEPATECTOMY, PARTIAL, microwave ablation, cholecystectomy N/A General Class II/ Clean Contaminated Combo with Anca --- Incisional Hernia Repair 6 hour total Panel 2 Procedure [facility] Anes Op Region Wound Class Comments REPAIR, HERNIA, incisional with mesh N/A General Class II/ C lean Contaminated 20x15 cm phasix mesh Surgeon Surgeon Role Service Panel Farhad Castillo MD Primary Surgical Oncology 1 Farhad Castillo MD Primary Surgical Oncology 1 Farhad Castillo MD Primary Surgical Oncology 1 Heidi March MD Primary General Surgery 2 Heidi March MD Primary General Surgery 2 Oziel Raza MD Resident - Assisting 2 Kd Hollins MD Resident - Assisting 1 documented in this encounter Social History Tobacco [...] time in the past 12 m [facility] [place], were you homeless or living in a jail (including now)? No 01/07/2025 [facility] Utilities Answer Date Recorded In the past 12 months has th e electric, gas, oil, or water company threatened to shut off services in your home? No 01/07/2025 Sex and Gender Information Value Date Recorded Sex Assigned at Male 07/31/2024 7:25 AM EDT Legal Sex Male 12:34 PM EDT Gender Identity Male 07/31/2024 7:25 AM EDT Sexual Orientation Not on file documented as of this encounter Last Filed Vital Signs Vital Sign Reading Time Taken Comments Blood Pressure 174/95 01/06/2025 4:15 PM EDT Pulse 74 01/06/2025 4:15 PM EDT Temperature 37.4 C (99.3 F) 01/06/2025 4:15 PM EDT Respiratory Rate 26 01/06/2025 4:15 PM EDT Oxygen Saturation 95% 01/06/2025 4:15 PM EDT Inhaled Oxygen Concentration - - Weight 109 kg (240 lb) 01/06/2025 9:21 AM EDT Height 180.3 cm (5' 11 [...] Date of Assessment Author No Risk Indicated 01/06/2025 9:31 AM EDT Maira Carney RN * Question Answer Date of Assessment Author 1. Wish to be (Past 1 Month) No 025 9:31 AM MINOT Maira Carney RN 2. Non-Specific Active Suici sol Thoughts (Past 1 Month) No 01/06/2025 9:31 AM EDT Maira Carney RN 6. Suicidal Behavior (Lifetime) No 9:31 AM MINOT Maira Carney RN documented as of this encounter Discharge Instructions * Discharge Instructions* Misty, Paulo G, INTERNAL AUDIT MANAGER - 01/13/2025 7:56 AM EDT Post-Operative Discharge [...] or feeling unwell - Call the [facility] with any questions or concerns during [...] Note Faith Snyder 59 y.o. male CSN: [id number] Admission: 01/06/2025 9:09 AM Primary Problem: Metastatic colon cancer to liver Primary Site Engineer: Primary Caregiver: Other (Comment) (staff) Assistance Available at Discharge: Availability of Care Givers (#Hours): 24 hours Family/Site Engineer(s) Willingness Assessed to care for patient at home: Yes Family/Site Engineer(s) Readiness Assessed to care for patient at home: Yes Housing Circumstances-Z Codes: Housing Circumstances (select all that apply): None Applicable Discharge Facility/Level of Care Needs: Discharge Facility/Level of Care Needs: [employer] Craftsman care DME/Equipment Needed after Discharge: Equipment Currently Used at Home: cane, straight Readmission Within the Last 30 Days: Readmission Within the Last 30 Days: no previous admission in last 30 days Medicare Documentation: Medicare Second Notice?: No Follow-up: [facility] phone [phone] [facility] phone [phone] correction resident Follow up Discharge Transportation: Transportation Home at Discharge: Medical Transport (1[facility]) Has discharge transport been arranged?: Yes What day is the transport expected?: 01/13/25 What time is the transport expected?: 1000 Follow Up Transport: Transportation Needed to Follow up Appoinments: Medical Transport Additional Comments: Pt is MR to DC this date. Pt will DC via [facility] at 1000 this date back to [facility] where pt resides for LTC. Pt meets FPG 300%. SW faxed the DC summary and provided the information below to 1st call provider and bedside RN. Pharmacy for controlled meds: [facility] NFR: [phone] ext [phone] Fax the DC summary: [phone] Elle Andre, GROUNDS CARETAKER, DIGITAL MEASUREMENT ADVISOR Social Work Senior Department of Case Management [facility] * Care Plan - Katelynn Lowery RN - 01/13/2025 9:40 AM EDT Problem: Adult Inpatient Plan of Care Goal: Plan of Care Review Outcome: Ongoing, Progressing Flowsheets (Taken 01/13/2025 0630 by Tereza Pham, RN) Progress: improving Outcome [...] Lowery RN Body Position: weight shifting Taken 01/13/2025 0630 by Tereza Pham, RN Skin Protection: incontinence pads utilized protective footwear used pulse oximeter probe site changed transparent dressing maintained Intervention: Prevent and Manage VTE (Venous Thromboembolism) Risk Flowsheets (Taken 01/13/2025 0000 by Tereza Pham, RN) VTE Prevention/Management: medication Intervention: Prevent Infection Flowsheets (Taken 01/13/2025629 by Tereza Pham, RN) Infection Prevention: hand [...] Intake Flowsheets (Taken 01/13/2025629 by Tereza Pham, RN) Oral Nutrition Promotion: rest periods promoted Nutrition [...] encouraged Intervention: Promote Injury-Free Environment Flowsheets (Taken 01/13/2025 0600 by Tereza Pham, RN) Safety Promotion/Fall Prevention: activity supervised * Nursing Note - Bhakti Cooley RN - 01/13/2025 8:40 AM EDT AVS discharge instructions printed and reviewed with patient: s/s of infection, how to reach doctors, follow up, discharge diet, discharge activity, showering, home medications continued, new medications. Educational attachments given on controlled medications and lovenox injection. Bedside RN Katelynn to call report back to [facility]. Belongings packed. [facility] to transport patient back. * Krames OnFHIR - Bhakti Cooley RN - 01/13/2025 8:03 AM EDT Images from the original note were not included. [id number] Cyclobenzaprine WHY is this medicine prescribed? Cyclobenzaprine [...] of all of the prescription and nonprescription (skek-xgf-yefqkvm) medicines, vitamins, minerals, and dietary supplements you [...] or pharmacist about specific clinical use. The [place] [employer] represents that the information provided hereunder was formulated with a reasonable standard of care, and in conformity with professional standards in the field. The [place] [employer] makes no representations or warranties, express or implied, including, but not limited to, any implied warranty of merchantability and/or fitness for a particular purpose, with respect to such information and specifically disclaims all such warranties. Users are advised that decisions regarding drug therapy are complex medical decisions requiring the independent, informed decision of an appropriate health critical care unit nurse, and the information is provided for informational purposes only. The entire monograph for a drug should be reviewed for a thorough understanding of the drug's actions, uses and side effects. The [place] [employer] does not endorse or recommend the use of any drug.The information is not a substitute for medical care. AHFS?? Patient Medication Information?. ?? Copyright, 2023. The [place]??, [address], [address], [place], [place]. All Rights Reserved. Duplication for commercial use must be authorized by [facility]. Selected Revisions: May 30, 2016. AHFS?? Patient Medication Information?. ?? Copyright, 2024 * Cony OnRICHARIR - Bhakti Cooley RN - 01/13/2025 8:02 AM EDT 1087 Oxycodone Oral Tablet, Immediate Release Brand Names: Oxaydo, Roxicodone What is this medicine? Oxycodone (yl-w-SKB-done) is an opioid pain reliever. It is [...] a special medication guide each time you pickle pumper this medicine. ? Overdosage: Taking too much [...] should report to your doctor or health critical care unit nurse as soon as possible: ? allergic reactions [...] attention (report to your doctor or health critical care unit nurse if they continue or are bothersome): ? constipation ? dry mouth ? itching ? nausea, vomiting ? upset stomach This list may not describe all possible side effects. Call your doctor for medical advice about side effects. You may report side effects to FDA at 9-687-NUO-5990. Where should I keep my medicine? This [...] location. To find a disposal location, visit [employer]/[place]. If you cannot take unused medicine to a proper location, you can mix the medicine with coffee grounds or tania litter and dispose of in the normal trash. Your doctor may also give you a special disposal pouch for this medicine. You can also flush the medicine down the toilet. * Cony Greene - Bhakti Cooley RN - 01/13/2025 8:02 AM EDT Images from the original note were not included. [id number] Enoxaparin Injection IMPORTANT WARNING: If you have [...] of all of the prescription and nonprescription (amly-evk-zcszqcc) medicines, vitamins, minerals, and dietary supplements you [...] or pharmacist about specific clinical use. The [place] [employer] represents that the information provided hereunder was formulated with a reasonable standard of care, and in conformity with professional standards in the field. The [place] [employer] makes no representations or warranties, express or implied, including, but not limited to, any implied warranty of merchantability and/or fitness for a particular purpose, with respect to such information and specifically disclaims all such warranties. Users are advised that decisions regarding drug therapy are complex medical decisions requiring the independent, informed decision of an appropriate health critical care unit nurse, and the information is provided for informational purposes only. The entire monograph for a drug should be reviewed for a thorough understanding of the drug's actions, uses and side effects. The [place] [employer] does not endorse or recommend the use of any drug.The information is not a substitute for medical care. AHFS?? Patient Medication Information?. ?? Copyright, 2023. The [place] [employer]??, [address], [address], [place], [place]. All Rights Reserved. Duplication for commercial use must be authorized by [facility]. Selected Revisions: November 02, 2023. AHFS?? Patient Medication Information?. ?? Copyright, 2024 * Cony Greene - Bhakti Cooley RN - 01/13/2025 8:02 [...] contact your doctor after hours, please call [phone] and ask for the doctors oncanabel for G[facility] Surgery. Clinic information for Dr. Castillo: [facility] [address] [place] [address] * Discharge Summary - Paulo Jay APRN - 01/13/2025 7:51 AM EDT Hospitalization Admit Date/Time: 01/06/2025 9:09 AM Admitting Attending: Farhad Castillo Discharge Date: 01/13/25 Discharge Attending Physician: Farhad Castillo MD PCP name and Address: Tayo Jones MD [address] [place] [address] Referring provider name and address: No referring provider defined for this encounter. Chief Concern, Brief History of Present Illness, and Hospital Course Faith Snyder is a 59 y.o. male with a past medical history of DM, HTN, presented to [facility] as a scheduled surgical intervention for management [...] Your Medications These medications were sent to [facility] [place], [place] - [address] [place] [id number] Lantus SoloStar 100 UNIT/ML injection pen naloxone [...] Signed 01/08/2025 11:18 AM by Paulo Jay INTERNAL AUDIT MANAGER - multimodal pain management - transition PO pain meds as diet advances and prior to discharge Electrolyte abnormality Overview Signed 01/08/2025 11:18 AM by Paulo Jay INTERNAL AUDIT MANAGER - daily/PRN CMP, Mg, Phos - replete [...] vomiting, or feeling unwell - Call the [facility] with any questions or concerns [...] Center 02/04/2025 10:15 AM Heidi March MD [facility] Test Results Pending At Discharge Pertinent Physical [...] saw and evaluated the patient with the INTERNAL AUDIT MANAGER. I attest to being involved in providing substantive time in patient care. I discussed the case with them and agree with the findings as documented. The discussion and plan reflect my edits and medical decision making. Dr. Montserrat Connor MD Key Bed Installer of Surgical Oncology [facility] * Care Plan - Tereza Pham RN [...] Note Faith Snyder 59 y.o. male CSN: [id number] Admission: 01/06/2025 9:09 AM Primary Problem: Metastatic [...] caliber on 01/13/25 at 1100 back to [facility]. Pharmacy for controlled meds: [facility] NFR: [phone] ext [phone] Fax the DC summary: [phone] Elle Adnre, GROUNDS CARETAKER, DIGITAL MEASUREMENT ADVISOR Social Work Senior Department of Case Management [facility] * Consults - Naz Posey RN - 01/12/2025 8:02 AM EDT Epidural catheter removed yesterday. Catheter site clean, dry, intact, and open to air at this time. Acute Pain will sign off. Please Contact Acute Pain Service with any additional questions or concerns via [employer]4. * Progress Notes - Oziel Morris MD - 01/12/2025 6:47 AM EDT Images from the original note were not included. [facility] Department of Surgery Division of General, [...] Jay APRN 01/06/25: OR for partial hepatectomy, cholecystectomy,[Jonathan] and hernia repair [Anca] Obesity (BMI 35.0-39.9 without comorbidity) Bowel obstruction (CMS/HCC) Incisional hernia, without obstruction or gangrene Post-op pain Overview Signed 01/08/2025 11:18 AM by Paulo Jay INTERNAL AUDIT MANAGER - multimodal pain management - transition PO pain meds as diet advances and prior to discharge Electrolyte abnormality Overview Signed 01/08/2025 11:18 AM by Paulo Jay INTERNAL AUDIT MANAGER - daily/PRN CMP, Mg, Phos - replete as appropriate - goal: K>4, phos>3, mg>2 Leukocytosis Overview Signed 01/08/2025 11:18 AM by Paulo Jay INTERNAL AUDIT MANAGER - common post-op finding likely reactive 2/2 [...] Surgical Oncology Surgery Progress Note 01/12/25 Faith Uriartemauricio Subjective Subjective: HPI 59M w/ PMHx of [...] Edited by: Cyndi Sol MD at 01/12/2025 0756 Review of Systems: Relevant review of systems [...] - 01/11/25 0659 01/11/25 07 - 01/11/25 18501/11/25 1900 - 01/12/25 0659 01/12/25 07 - 01/12/25 0814 Closed/Suction Drain LUQ Bulb [...] Signed 01/08/2025 11:18 AM by Paulo Jay INTERNAL AUDIT MANAGER - multimodal pain management - transition PO pain meds as diet advances and prior to discharge Electrolyte abnormality Overview Signed 01/08/2025 11:18 AM by Paulo Jay INTERNAL AUDIT MANAGER - daily/PRN CMP, Mg, Phos - replete as appropriate - goal: K>4, phos>3, mg>2 Leukocytosis Overview Signed 01/08/2025 11:18 AM by Paulo Jay INTERNAL AUDIT MANAGER - common post-op finding likely reactive 2/2 [...] medical decision making. Dr. Montserrat Connor MD Key Bed Installer of Surgical Oncology [facility] * Progress Notes - Kd Boyd MD [...] 24 hours Assessment: doing well Plan: wean POSTMASTER RELIEF Plan explained/all questions answered/plan in agreement with: Patient Patient seen and examined today on rounds with AP Nurse. Epidural analgesics infusing for the management of postop pain. Analgesic medication rate and use reviewed. Patient doing well and quite comfortable. Patient reports the epidural POSTMASTER RELIEF doses are effective. No significant adverse effects noted. My plan is to STOP the epidural infusion basal and POSTMASTER RELIEF settings. Will follow. Reason for Block: post-op [...] with any additional questions or concerns via [employer] orpage [phone]. * Progress Notes - Jessica Benoit RN - 01/11/2025 10:33 AM EDT Case Management Adult Progress Note Faith Snyder 59 y.o. male CSN: [id number] Admission: 01/06/2025 9:09 AM Primary Problem: Metastatic colon cancer to liver Anticipated Discharge Date: 01/15 Has Discharge Plans Changed? No Medicare Second Notice: Housing Circumstances: Not Applicable Housing Circumstances Action Taken: Medically Ready for Discharge: no Additional Comments [facility] phone [phone] will accept him hack as a snf care resident. POC reviewed with primary team. [...] with any additional questions or concerns via [employer] 4078. * Consults - Marylin Yang RN - [...] (PF) 1.25 mg/mL in 100 mL (PF) POSTMASTER RELIEF no dose Epidural Continuous hydromorphone 10 mcg/mL [...] with any additional questions or concerns via [employer] orpage 2830. * Progress Notes - Paulo Jay, INTERNAL AUDIT MANAGER - 01/11/2025 7:47 AM EDT Images from [...] Airway None Output by Drain (mL) 01/09/25 0700 - 01/09/25 1859 01/09/25 1900 - 01/10/25 0659 01/10/25 0700 - 01/10/25 1859 01/10/25 1900 - 01/11/25 0659 01/11/25 0700 - 01/11/25 0747 Closed/Suction Drain LUQ Bulb [...] Signed 01/08/2025 11:18 AM by Paulo Jay INTERNAL AUDIT MANAGER - multimodal pain management - transition PO [...] medical decision making. Dr. Montserrat Connor MD Key Bed Installer of Surgical Oncology [facility] * Progress Notes - Linus Hernandez MD - 01/11/2025 7:21 AM EDT Images from the original note were not included. [facility] Department of Surgery Division of General, [...] Intake/Output Summary (Last 24 hours) at 01/11/2025 0723 Last data filed at 01/11/2025 0510 Gross per 24 hour Intake 1408 ml Output 976 ml Net 432 ml Lines/Drains/Tubes: Patient Lines/Drains/Airways Status Active Airway None Output by Drain (mL) 01/09/25 0700 - 01/09/25 1859 01/09/25 1900 - 01/10/25 0659 01/10/25 0700 - 01/10/25 1859 01/10/25 1900 [...] Signed 01/08/2025 11:18 AM by Paulo Jay INTERNAL AUDIT MANAGER - daily/PRN CMP, Mg, Phos - replete [...] Care Review Outcome: Ongoing, Progressing Flowsheets (Taken 01/11/2025 0030) Progress: improving Outcome Evaluation: pateint will give understanding of need to continue to monitor his blood sugarssecond to episodes of running below 100. Plan of Care Reviewed With: patient Goal: Patient-Specific Goal (Individualized) Outcome: Ongoing, Progressing Flowsheets (Taken 01/11/2025 003) Patient/Family-Specific Goals (Include Timeframe): Patient will have [...] (PF) 1.25 mg/mL in 100 mL (PF) POSTMASTER RELIEF no dose Epidural Continuous hydromorphone 10 mcg/mL [...] with any additional questions or concerns via [employer] 7384. * Progress Notes - Kaitlin Judd MD - 01/10/2025 1:06 PM EDT Acute Pain Service Pain scale (0-10): 0/10 Side Effects Nausea/Vomiting: no Pruritus: no Confusion: no Sedation: no Numbness/Tingling: no Postural headache: no Additional side effects: no Outcomes Able to take PO: yes Has ambulated: yes Assessment & Plan in the Next 24 hours Assessment: doing well Plan: wean POSTMASTER RELIEF Plan explained/all questions answered/plan in agreement with: [...] Surgical Oncology Surgery Progress Note 01/10/25 Faith Vu Subjective Subjective: HPI 59 yo M a [...] medical decision making. Dr. Montserrat Connor MD Key Bed Installer of Surgical Oncology [facility] * Care Plan - Linda Brannon RN - 01/10/2025 11:28 AM EDT Problem: Adult Inpatient Plan of Care Goal: Plan of Care Review Outcome: Ongoing, Progressing Flowsheets Taken 01/10/2025 1121 by Linda Brannon RN Progress: no change Outcome Evaluation: pt verbalized understanding of plan of care Taken 01/09/2025 1517 by Nancy Hughes RN Plan of Care Reviewed With: patient Goal: Patient-Specific Goal (Individualized) Outcome: Ongoing, Progressing Flowsheets (Taken 01/10/2025 1121) Patient/Family-Specific Goals (Include Timeframe): pt will use [...] VTE (Venous Thromboembolism) Risk Flowsheets (Taken 01/10/2025 1121) VTE Prevention/Management: bilateral lower extremity SCDs (sequential [...] use Intervention: Provide Person-Centered Care Flowsheets (Taken 01/10/2025 112) Trust Relationship/Rapport: care explained choices provided questions [...] Promote and Optimize Oral Intake Flowsheets (Taken 01/10/2025 112) Oral Nutrition Promotion: adaptive equipment use encouraged [...] (PF) 1.25 mg/mL in 100 mL (PF) POSTMASTER RELIEF no dose Epidural Continuous hydromorphone 10 mcg/mL [...] with any additional questions or concerns via [employer] 1497. * Care Plan - Cathryn Lomas RN - 01/09/2025 7:55 PM EDT Problem: Adult Inpatient Plan of Care Goal: Plan of Care Review Outcome: Ongoing, Progressing Flowsheets Taken 01/09/2025 1517 by Nancy Hughes RN Plan of Care Reviewed With: patient Taken 01/09/2025218 by Marisela Avelar RN Progress: no change [...] Position: weight shifting Taken 01/08/20251999 by Marisela Avelar RN Skin Protection: incontinence pads utilized Intervention: Prevent and Manage VTE (Venous Thromboembolism) Risk Flowsheets (Taken 01/09/2025 0400 by Marisela Avelar, JAN) VTE Prevention/Management: SCDs (sequential compression devices) off [...] Cathryn Lomas RN Isolation Precautions: protective Taken 01/09/2025 021 by Marisela Avelar RN Infection Management: aseptic [...] (PF) 1.25 mg/mL in 100 mL (PF) POSTMASTER RELIEF no dose Epidural Continuous hydromorphone 10 mcg/mL [...] with any additional questions or concerns via [employer] 6581. * Care Plan - Nancy Hughes RN - 01/09/2025 3:17 PM EDT Problem: Adult Inpatient Plan of Care Goal: Plan of Care Review Outcome: Ongoing, Progressing Flowsheets (Taken 01/09/2025 151) Plan of Care Reviewed With: patient Goal: Patient-Specific Goal (Individualized) Outcome: Ongoing, Progressing Goal: Absence of Hospital-Acquired Illness or Injury Outcome: Ongoing, Progressing Goal: Optimal Comfort and Wellbeing Outcome: Ongoing, Progressing Problem: Skin Injury Risk Increased Goal: Skin Health and Integrity Outcome: Ongoing, Progressing Intervention: Optimize Skin Protection Flowsheets (Taken 01/09/2025 151) Activity Management: activity adjusted per tolerance activity encouraged Pressure Reduction Techniques: frequent weight shift encouraged heels elevated off bed Head of Bed (HOB) Positioning: HOB elevated Intervention: Promote and Optimize Oral Intake Flowsheets (Taken 01/09/20251516) Oral Nutrition Promotion: adaptive equipment use encouraged [...] 24 hours Assessment: doing well Plan: continue POSTMASTER RELIEF at current rate Plan explained/all questions answered/plan [...] 01/07/25 18501/07/25 1900 - 01/08/25 0659 01/08/25 0700 - 01/08/25 18501/08/25 1900 - 01/09/25 0659 [...] abdomen. COMPARISON: Abdominal radiograph 01/08/2025 FINDINGS: Limited [id number]-[id number] abdominal radiograph for the purpose of locating [...] Signed 01/08/2025 11:18 AM by Paulo Jay INTERNAL AUDIT MANAGER - daily/PRN CMP, Mg, Phos - replete as appropriate - goal: K>4, phos>3, mg>2 Leukocytosis Overview Signed 01/08/2025 11:18 AM by Paulo Jay INTERNAL AUDIT MANAGER - common post-op finding likely reactive 2/2 [...] Edited by: Cyndi Sol MD at 01/09/2025 3982 Dispo: Continue Current Level of Care Cyndi [...] reflect my edits and medical decision making. [place] trial. Encourage ambulation. Decrease POSTMASTER RELIEF basal rate. Dr. Montserrat Connor MD Key Bed Installer of Surgical Oncology [facility] * Consults - Renata Garcia RN - 01/09/2025 9:17 AM EDT Acute Pain Service Follow-Up Evaluation Faith Snyder is a 59 y.o. male Follow-Up: Follow-up reason: APS rounds Location: abdomen Pain Rating (0-10): sleeping Comfort/ Acceptable Pain Level: [facility] Acute Pain Service Comments: Patient is currently [...] (PF) 1.25 mg/mL in 100 mL (PF) POSTMASTER RELIEF no dose Epidural Continuous hydromorphone 10 mcg/mL [...] with any additional questions or concerns via [employer] orpage [phone]. * Care Plan - Marisela Avelar RN [...] Intervention: Prevent or Manage Infection Flowsheets (Taken 01/09/2025 021) Infection Management: aseptic technique maintained Isolation Precautions: protective * Consults - Shanell Bravo RN - 01/08/2025 4:52 PM EDT Acute Pain Service Follow-Up Evaluation Faith Snyder is a 59 y.o. male Follow-Up: Follow-up reason: APS rounds Location: Asleep Pain Rating (0-10): [facility] Comfort/ Acceptable Pain Level: [facility] Acute Pain Service Comments: Patient is [...] (PF) 1.25 mg/mL in 100 mL (PF) POSTMASTER RELIEF no dose Epidural Continuous hydromorphone 10 mcg/mL [...] with any additional questions or concerns via [employer]. * Care Plan - Nancy Hughes RN - 01/08/2025 2:51 PM EDT Problem: Adult Inpatient Plan of Care Goal: Plan of Care Review Outcome: Ongoing, Progressing Flowsheets (Taken 01/08/20251450) Plan of Care Reviewed With: patient Goal: [...] Output by Drain (mL) 01/06/25 07 - 01/06/25185801/06/25 1900 - 01/07/25 0659 01/07/25 07 - 01/07/25185801/07/25 1900 - 01/08/25 0659 01/08/25 07 - [...] of bowel function. Dr. Montserrat Connor MD Key Bed Installer of Surgical Oncology [facility] * Consults - Veda Bray RD - 01/08/2025 9:20 AM EDT Adult Nutrition Evaluation Note Faith Snyder 59 y.o. male CSN: [id number] Room/Bed 124/124A Nutrition evaluation type: assessment Reason [...] Supplemental oxygen O2 Delivery Method: Nasal cannula Catherine Coma Scale Score: 15 Sandeep Scale Score: [...] 33.49 Weight Evaluation: Obese-Class 1 (BMI 30-34.9) [place] Body Weight (kg): 78.2 Percent [place] Body Weight: 139 Adjusted Body Weight (kg): 85.9 Estimated Needs: Kcal/ K-30 Kcal Provided: 3078-0224 Kcal Needs Based On: Adjusted weight Gm [...] mmol, Intravenous, Once * Consults - Shanell rBavo RN - 01/08/2025 8:53 AM EDT Acute [...] (PF) 1.25 mg/mL in 100 mL (PF) POSTMASTER RELIEF no dose Epidural Continuous hydromorphone 10 mcg/mL [...] with any additional questions or concerns via [employer] orpage [phone]. * Care Plan - Cathryn Lomas RN [...] Flowsheets (Taken 01/07/2025 08 by Bonnie Scott, JAN) Safety Promotion/Fall Prevention: activity supervised Intervention: Prevent Skin Injury Flowsheets (Taken 01/07/20251999 by Flor Glez) Body Position: turned Intervention: Prevent and Manage VTE (Venous Thromboembolism) Risk Flowsheets (Taken 01/07/2025799 by Bonnie Scott, JAN) VTE Prevention/Management: bilateral lower extremity medication SCDs (sequential compression devices) on compression stockings off Intervention: Prevent Infection Flowsheets (Taken 01/06/20251999 by Светлана Gold RN) Infection Prevention: environmental surveillance performed hand hygiene promoted personal protective equipment utilized rest/sleep promoted Goal: Optimal Comfort and Wellbeing Outcome: Ongoing, Progressing Intervention: Monitor Pain and Promote Comfort Flowsheets (Taken 01/07/2025 09 by Shanell Bravo RN) Pain Management Interventions: medication (see MAR) pain pump in use Intervention: Provide Person-Centered Care Flowsheets (Taken 01/06/20251999 by Светлана Gold, JAN) Trust Relationship/Rapport: care explained choices provided questions encouraged reassurance provided Problem: Skin Injury Risk Increased Goal: Skin Health and Integrity Outcome: Ongoing, Progressing Intervention: Optimize Skin Protection Flowsheets Taken 01/07/20251999 by Cathryn Lomas RN Activity Management: bedrest Taken 01/07/2025 0800 by Bonnie Scott, RN Head of Bed (HOB) Positioning: HOB elevated Taken 01/06/20251999 by [place], Светлана, RN Pressure Reduction Techniques: heels elevated off bed Intervention: Promote and Optimize Oral Intake Flowsheets (Taken 01/06/20251999 by Светлана Gold RN) Nutrition Interventions: other (see comments) Problem: Infection Goal: Absence of Infection Signs and Symptoms Outcome: Ongoing, Progressing Intervention: Prevent or Manage Infection Flowsheets Taken 01/07/20251999 by Cathryn Lomas RN Isolation Precautions: protective Taken 01/06/20251999 by Светлана Gold RN Infection Management: aseptic technique maintained Fever Reduction/Comfort Measures: lightweight clothing lightweight bedding * Consults - Niama Bourne RN - 01/07/2025 9:00 PM EDT [...] (PF) 1.25 mg/mL in 100 mL (PF) POSTMASTER RELIEF no dose Epidural Continuous hydromorphone 10 mcg/mL [...] with any additional questions or concerns via [employer] [phone]. * Care Plan - Bonnie Scott RN - 01/07/2025 6:56 PM EDT Problem: Adult Inpatient Plan of Care Goal: Plan of Care Review Outcome: Ongoing, Progressing Flowsheets (Taken 01/06/20251999 by Светлана Gold, RN) Progress: no change Outcome Evaluation: pt will [...] VTE (Venous Thromboembolism) Risk Flowsheets (Taken 01/07/2025 08) VTE Prevention/Management: bilateral lower extremity medication SCDs (sequential compression devices) on compression stockings off Intervention: Prevent Infection Flowsheets (Taken 01/06/20251999 by Светлана Gold RN) Infection Prevention: environmental surveillance performed hand hygiene promoted personal protective equipment utilized rest/sleep promoted Goal: Optimal Comfort and Wellbeing Outcome: Ongoing, Progressing Intervention: Monitor Pain and Promote Comfort Flowsheets (Taken 01/07/2025 09 by Shanell Bravo RN) Pain Management Interventions: medication (see MAR) pain pump in use Intervention: Provide Person-Centered Care Flowsheets (Taken 01/06/20251999 by Светлана Gold RN) Trust Relationship/Rapport: care explained choices provided questions encouraged reassurance provided Problem: Skin Injury Risk Increased Goal: Skin Health and Integrity Outcome: Ongoing, Progressing Intervention: Optimize Skin Protection Flowsheets Taken 01/07/2025 1600 by Myra Pete Activity Management: up in chair Taken 01/07/2025 08 by Bonnie Scott RN Head of Bed (HOB) Positioning: HOB elevated Taken 01/06/20251999 by Светлана Gold RN Pressure Reduction Techniques: heels elevated off bed Intervention: Promote and Optimize Oral Intake Flowsheets (Taken 01/06/20251999 by Светлана Gold RN) Nutrition Interventions: other (see comments) Problem: Infection Goal: Absence of Infection Signs and Symptoms Outcome: Ongoing, Progressing Intervention: Prevent or Manage Infection Flowsheets Taken 01/07/2025 08 by Bonnie Scott RN Isolation Precautions: precautions maintained Taken 01/06/20251999 by Светлана Gold RN Infection Management: aseptic technique maintained Fever Reduction/Comfort Measures: lightweight clothing lightweight bedding * Hospital Course - Paulo Jay APRN - 01/07/2025 1:37 PM EDT Faith Snyder is a 59 y.o. male with a past medical history of DM, HTN, presented to [facility] as a scheduled surgical intervention for management [...] metastasiess/p open partial R hepatectomy and MWA (Jonathan) with ventral incisional hernia repair with mesh (Anca) 01/06/25 Plan: - recommend aggressive management of BG to ensure levels below 200 - OOB, ambulate - rest of care per primary team - [facility] will continue to follow Please page on-call resident for any questions or concerns. Oziel Morris MD PGY-5 General Surgery Pager: [phone] Cosigned by Heidi March MD at 01/08/2025 [...] Note Faith Snyder 59 y.o. male CSN: [id number] Admission: 01/06/2025 9:09 AM Primary Problem: Metastatic colon cancer to liver Medical Office Administrator reviewed chart and spoke with patient to complete this Initial Case Management Assessment. PCP: Tayo Jones MD Emergency Contact: Extended Emergency Contact Information Primary Emergency Contact: SWATI SNYDER Mobile Relation: Sister Preferred language: Estonian Insurance: Primary Visit Coverage Payer Plan Sponsor Code Group Number Group Name MEDICAID-[facility] MEDICAID TRADITIONAL Primary Visit Coverage Subscriber Subscriber ID Subscriber Name Subscriber SSN Subscriber Address [id number] FAITH SNYDER [id number] [place] [address] Patient information:lives as a LT resident Daily Living Activities: Functional Status: Moderate assistance Living Arrangements: Detention Type of Residence: Single Level, custodial/residential care, half-way facility [address] [place] [address] Current DME: Equipment Currently Used at Home: cane, straight Income Information: Income Source: Disabled Income/Expense Information: Income meets expenses Current Resources Utilized: None Housing Circumstances-Z Codes: Housing Circumstances (select all that apply): None Applicable Patient Referred to: [facility] phone [phone] Anticipated Discharge Date: 01/11/25 Patient's Discharge Goal: [facility] phone [phone] Assistance Available at Discharge: 05/11 Discharge Transport: medicaid transport Follow Up Transport: medicaid transport Home Health / Home Infusion / Outpatient Dialysis Services: none Living Will/Advance Directive/Power of Precision Lens Grinder Apprentice /Guardian: No LW POA is sister Swati Snyder Additional Comments: Medical Office Administrator provided introduction of CM and information on CM role. Confirmed demographics in EPIC are accurate. Jessica Benoit RN * Significant Event [...] or living in a jail (including now)? N Food Insecurity Within the past 12 months, you worried that your food would run out before you got the money to buymore. Never true Within the past 12 months, the food you bought just didn't last and you didn't have money to get more. Never true Utilities In the past 12 months has the [employer], gas, oil, or water [employer] threatened to shut off services in your [...] Chair since being admitted to the hospital. Advertising Operations Manager (if applicable) Not Applicable HOME LIVING/SET-UP Lives With (roommate) Home Type half-way facility ([facility] multimedia educational specialist resident) Home Equipment Cane (patient believes he would have access to other equipment) Home Layout One level Bathroom Layout Bathroom: Tub/Shower: Walk-in shower, Grab bars Bathroom: Toilet: Standard, Grab bars Bathroom: Accessibility: Accessible, Accessible via wheelchair, Accessible via walker Additional Comments PRIOR LEVEL OF FUNCTION Assist at Home (intermittent assist from staff) Level of Mobility Ambulatory- household only Mobility [place] Independent gait with device History of Falls [...] Treatment Minutes 24 BED MOBILITY Level of [place] Physical/Non- physical Assist Adaptive Equipment Utilized Rolling/ [...] sitting edge of bed. TRANSFERS Level of [place] Physical/Non- physical Assist Adaptive Equipment Utilized Sit [...] Limits, Stooped posture, Forward head Level of [place] Balance Support Interventions Static Sit Standby assist [...] support STANDARDIZED ASSESSMENTS Standardized Assessments Standardized Assessments: [facility] 6-Clicks Mobility Assessment [facility] 6-Clicks Mobility Assessment Difficulty patient has [...] climbing 3-5 steps with a railing?: Unable [facility] 6-Clicks Mobility Assessment Total : 13 [...] her. Participants in Care Family/Caregiver Present: No Advertising Operations Manager: Not Applicable Presentation Oxygen Therapy: Supplemental oxygen [...] Lives With: (roommate) [facility] Home Adaptive Equipment: Cane (patient believes he would have access to other equipment) Home Layout: One level Bathroom: Tub/Shower: Walk-in shower, Grab bars Bathroom: Toilet: Standard, Grab bars Bathroom: Accessibility: Accessible, Accessible via wheelchair, Accessible via walker Prior Level of Function Receives Help From: (intermittent assist from staff) Level of Mobility: Ambulatory- household only Mobility [place]: Independent gait with device ADL Performance: Needs [...] Mobility Bed Mobility Exam: Rolling/Turning Level of [place]: Moderate assist (50% patient effort) Physical/Nonphysical Assist: Verbal Cues, Minimal cues Assistive Device: Bed rails Bed Mobility Exam: Scooting/Bridging Level of [place]: Contact guard Physical/Nonphysical Assist: Verbal Cues, Nonverbal cues (demo/gestures), Minimal cues Bed Mobility Exam: Supine to Sit Level of [place]: Moderate assist (50% patient's effort) Physical/Nonphysical Assist: Verbal Cues, Nonverbal cues (demo/gestures), Additional assist utilized for safety Assistive Device: Bed rails Transfers Transfer Exam: Sit to stand Level of [place]: Minimum assist (75% patient's effort) Physical/Nonphysical Assist: Verbal Cues, Nonverbal cues (demo/gestures), Minimal cues, Set-up required Assistive Device: Walker, rolling Transfer Exam: Stand to Sit Level of [place]: Minimum assist (75% patient's effort) Physical/Nonphysical Assist: Set-up required, Verbal Cues, Nonverbal cues (demo/gestures), Minimal cues Assistive Device: Walker, rolling Transfer Exam: Bed to Chair/Chair to Bed Level of [place]: Minimum assist (75% patient's effort) Physical/Nonphysical Assist: [...] overall support return to baseline. Standardized Assessments [facility] 6-Click Daily Activities Help from Other: Don/Doff Regular Lower Body Clothings: A lot Help From Other: Bathing: A lot Help From Other: Toileting: A lot Help From Other: Don/Doff Upper Body Clothings: A lot Help From Other: Grooming: Little Help From Other: Eating Meals: None [facility] 6 Click - Daily Activities [...] 01/07/25 at 3:02 PM. * Consults - Shanlel Bravo RN - 01/07/2025 9:13 AM EDT [...] mL/hr and encouraged patient to utilize the POSTMASTER RELIEF button to help manage pain better. Will [...] (PF) 1.25 mg/mL in 100 mL (PF) POSTMASTER RELIEF no dose Epidural Continuous hydromorphone 10 mcg/mL [...] with any additional questions or concerns via [employer] orpage [phone]. * Progress Notes - Kd Hollins MD [...] 1859 01/05/25 1900 - 01/06/25 0659 01/06/25 07 - 01/06/25 18501/06/25 1900 - 01/07/25 0659 01/07/25 07 - 01/07/25 0918 Closed/Suction Drain LUQ Bulb [...] Service Comments: Pain Service comments: Will continue POSTMASTER RELIEF and/ or infusion until primary service decides it is appropriate to discontinue POSTMASTER RELIEF and/ or infusion. * Significant Event - Brandon Diggs MD - 01/06/2025 8:01 PM EDT Images from the original note were not included. [employer] Department of Surgery Division of General, Endocrine, [...] nursing staff. I have notified senior resident/attending cash applications manager with any issues or concerns. Brandon Diggs [...] the original note were not included. [facility] Department of Surgery Division of Surgical [...] nursing staff. I have notified senior resident/attending cash applications manager with any issues or concerns. Brandon Diggs [...] (PF) 1.25 mg/mL in 100 mL (PF) POSTMASTER RELIEF no dose Epidural Continuous hydromorphone 10 mcg/mL [...] open partial right hepatectomy, incisional hernia repair POSTMASTER RELIEF Education: Patient/ family POSTMASTER RELIEF education done: Yes Pre-hook-up Assessment: Pain Rating (0-10): 7 Comfort/ Acceptable Pain Level: 3 Location: abdomen Epidural insertion site: occlusive dressing intact Epidural motor function: Able to bend knees Hook-up Time: Hooked up at 1750 with 5 ml bolus. Additional Comments: Negative Aspiration. * Op Note - Farhad Castillo MD - 01/06/2025 11:44 AM EDT Operative Note Date: 01/06/25 Location: [facility] Name: Faith Snyder, : 1965, Diagnoses: Pre-op Diagnosis Metastatic colon cancer to liver Post-op Diagnosis Metastatic colon cancer to liver Procedure(s): Segment 8 Liver Resection Segment 7 MWA (100W, 2 min, 100W 40 seconds tract ablation) Intra-operative US to guide resection and ablation Open Cholecystectomy Attending Surgeon(s): Panel 1: * Farhad Castillo - Primary Panel 2: * Heidi March - Primary Cuff Slitter(s): Panel 1: * Kd Hollins MD - Resident - Assisting Panel 2: * Oziel Raza MD - Resident - Assisting Anesthesia: General ASA: III Blood Administration: Blood Product Administration History None Estimated Blood Loss: 3 mL Drains: Closed/Suction Drain LUQ Bulb 19 Fr. (Active) Site Description Unable to view 01/07/25 0800 Dressing Status Dry;Intact 01/07/25 0800 Drainage Appearance Serosanguineous 01/07/25 0400 Status To bulb suction 01/07/25 0400 Output (mL) 10 mL 01/07/25 0400 Urethral Catheter Temperature probe;Non-latex 16 Fr. (Active) Site Assessment Clean;Skin intact 01/07/25799 CAUTI: Collection Container Standard drainage bag;Collection container below bladder and tubing free of kinks 01/07/25799 CAUTI: Securement Method Securing device (Describe) 01/07/25799 CAUTI: Specimen Collection Port Covered with Alcohol Cap Yes 01/07/25799 CAUTI: Urinary Catheter Indication Yes, meets indication reason 01/07/25799 CAUTI: Urinary Catheter Indication Reasons Recent Urologic, Colorectal or MEDICAL RECORDS COORDINATOR surgery 01/07/25799 Output (mL) 175 mL 01/07/25 1524 Implants Type Name Action Serial No. MESH PHASIX ST [id number] - [id number] Implanted Specimen: Specimens ID Source Frozen? 1 [...] the operation will be dictated by the [facility] service including the closure. I was present [...] AM EDT Operative Note Date: 01/06/25 Location: [facility] Name: Faith Snyder, : 1965, Diagnoses: Pre-op Diagnosis Metastatic colon cancer to liver Incisional hernia without obstruction or gangrene Post-op Diagnosis Metastatic colon cancer to liver Incisional hernia without obstruction or gangrene Procedure(s): Open complex >10 cm incisional hernia repair with open underlay [id number] Phasix ST OPS Partial omentectomy Excision skin/scar/sac [id number] Attending Surgeon(s): Panel 2: * Heidi March - Primary Cuff Slitter(s): Panel 1: * Kd Hollins MD - Resident - Assisting, campus recruiting intern Panel 2: * Oziel Raza MD - Fellow - Assisting as no qualified resident available to assist Anesthesia: General ASA: III Blood Administration: Blood Product Administration History None Estimated Blood Loss: 3 mL Drains: Closed/Suction Drain LUQ Bulb 19 Fr. (Active) Site Description Unable to view 01/10/251929 Dressing Status Clean;Dry 01/11/25 0608 Drainage Appearance [...] Catheter Indication Reasons Recent Urologic, Colorectal or MEDICAL RECORDS COORDINATOR surgery 01/08/25799 Output (mL) 200 mL 09/26/25 0800 Implants Type Name Action Serial No. MESH PHASIX ST [id number] - [id number] Implanted Specimen: Specimens ID Source Frozen? 1 Other (specify site) No Description: Partial Omentectomy 2 Other (specify site) No Description: Segment 8 partial hepatectomy 3 Gallbladder No Description: gallbladder Findings: Complex multiple large Bhutanese-cheese hernia defects along the entirety of his [...] and and in fact he had multiple Bhutanese cheese defects for the entirety of his [...] a LigaSure. During this due to the Bhutanese cheese configuration and multiple areas where the [...] anterior fascia was then closed in interrupted [id number] fashion with the midline pexing to the bilaminar Phasix mesh as part of the OPS system. In doing so there was no evidence of bleeding. Our subcutaneous area was evaluated. There was no evidence ofadditional bleeding. A 19 Uzbek Linus drain was placed in the subcutaneous [...] 01/06/2025 11:44 AM EDT Date: 01/06/25 Location: [facility] Name: Faith Snyder, : 1965, Diagnoses: Pre-op Diagnosis Metastatic colon cancer to liver Post-op Diagnosis Metastatic colon cancer to liver Procedure(s): Ventral incisional hernia repair with Phasix mesh Partial omentectomy Attending Surgeon(s): Panel 1: * Farhad Castillo - Primary Panel 2: * Heidi March - Primary Cuff Slitter(s): Panel 1: * Kd Hollins MD - Resident - Assisting Panel 2: * Oziel Raza MD - Resident - Assisting Anesthesia: General ASA: III Blood Administration: Blood Product Administration History None Estimated Blood Loss: 3 mL Drains: Closed/Suction Drain LUQ Bulb 19 Fr. (Active) Urethral Catheter Temperature probe;Non-latex 16 Fr. (Active) Implants Type Name Action Serial No. MESH PHASIX ST [id number] - [id number] Implanted Specimen: Specimens ID Source Frozen? 1 [...] 01/06/2025 11:44 AM EDT Date: 01/06/25 Location: [facility] Name: Faith Snyder, : 1965, Diagnoses: Pre-op Diagnosis Metastatic colon cancer to liver Post-op Diagnosis Metastatic colon cancer to liver Procedure(s): Segment 8 partial hepatectomy Segment 6 microwave ablation Open cholecystectomy Attending Surgeon(s): Panel 1: * Farhad Castillo - Primary Panel 2: * Heidi March - Primary Cuff Slitter(s): Panel 1: * Kd Hollins MD - Resident - Assisting Panel 2: * Oziel Raza MD - Resident - Assisting Anesthesia: General ASA: III Blood Administration: Blood Product Administration History None Estimated Blood Loss: 3 mL Drains: Closed/Suction Drain LUQ Bulb 19 Fr. (Active) Urethral Catheter Temperature probe;Non-latex 16 Fr. (Active) Implants Type Name Action Serial No. MESH PHASIX ST [id number] - [id number] Implanted Specimen: Specimens ID Source Frozen? 1 [...] RIGHT COLON AND TERMINAL ILEUM, RIGHT HEMICOLECTOMY ([id number]; 11/09/2022): - INVASIVE MODERATELY DIFFERENTIATED ADENOCARCINOMA OF [...] Nodes: Similar 13 mm and 12 mm gergory hepatis/portacaval nodes on 7:17 and 20 Fluid [...] 35.48 kg/m??. Metastatic Cancer Incisional Hernia Kalie Clemente ANA 12/24/24 8:49 AM [1] Past Medical History: [...] EST Appointment [facility] [address] [place] [address] 05/13/2025 10:15 AM EST Office Visit [facility] [address] [place] [address] Farhad Castillo MD [address] [place] [address] documented as of this encounter Goals Goal [...] EDT Metastatic colon cancer to liver (CMS/HCC) OK RPR AA HERNIA 1ST 3-10 CM REDUCIBLE 01/06/2025 10:47 AM EDT Metastatic colon cancer to liver (CMS/HCC) Incisional hernia without obstruction or gangrene OK RESEC LIVER,PART LOBECTOMY 01/06/2025 10:47 AM EDT Metastatic colon cancer to liver (CMS/HCC) Incisional hernia without obstruction or gangrene POCT GLUCOSE METER UNSOLICITED RESULTS Routine 01/06/2025 9:37 AM EDT documented in this encounter Results * (ABNORMAL) POCT glucose meter (01/13/2025 7:02 AM EDT) Pathologist [facility] POCT Glucose 134(H) 74 - 99 mg/dL 01/13/2025 7:03 AM EDT [facility] Comment:Accuracy of [...] Comment 01/13/2025 7:03 AM EDT [facility] Clerical Aide ID Vita Holder 01/13/2025 7:03 AM EDT [facility] Device ID [id number] 01/13/2025 7:03 AM EDT [facility] Specimen Type POC Capillary 01/13/2025 7:03 AM EDT [facility] Blood Capillary blood specimen / Unknown 01/13/2025 7:02 AM EDT 01/13/2025 7:03 AM EDT us Farhad Castillo MD LAB POINT OF CARE TEST DOCKED DEVICE UNSOLICITED RESULTS Final Result Performing Organization Address City/[facility]/ZIP Co de Phone Number [facility] [address] [place] [address] * Phosphorus (01/13/2025 3:37 AM EDT) [facility] Phosphorus, Plasma 3.3 2.5 - 4.5 mg/dL 01/13/2025 4:45 AM EDT [facility] Blood Venous blood specimen / Unknown Venipuncture / Unknown 01/13/2025 3:37 AM EDT 01/13/2025 4:14 AM EDT us Farhad Castillo MD LAB BLOOD ORDERABLES Final Result [facility] [address] [place] [address] * (ABNORMAL) Magnesium (01/13/2025 3:37 AM EDT) [facility] Magnesium, Plasma 1.8(L) 1.9 - 2.4 mg/dL 01/13/2025 4:45 AM EDT [facility] Blood Venous blood specimen / Unknown Venipuncture / Unknown 01/13/2025 3:37 AM EDT 01/13/2025 4:14 AM EDT us Farhad Castillo MD LAB BLOOD ORDERABLES Final Result [facility] [address] [place] [address] * (ABNORMAL) Comprehensive metabolic panel (01/13/2025 3:37 AM EDT) Glucose, Plasma 156(H) 74 - 99 mg/dL 01/13/2025 4:45 AM EDT [facility] BUN, Plasma 8 8 - 23 mg/dL 01/13/2025 4:45 AM EDT [facility] Creatinine, Plasma 0.79 0.70 - 1.20 mg/dL 01/13/2025 4:45 AM EDT [facility] BUN/Creatinine Ratio 10 01/13/2025 4:45 AM EDT [facility] Sodium, Plasma 136 136 - 145 mmol/L 01/13/2025 4:45 AM EDT [facility] Potassium, Plasma 3.6 3.6 - 4.9 mmol/L 01/13/2025 4:45 AM EDT [facility] Chloride, Plasma 103 97 - 107 mmol/L 01/13/2025 4:45 AM EDT [facility] CO2, Plasma 23 22 - 29 mmol/L 01/13/2025 4:45 AM EDT [facility] Anion Gap 10 6 - 16 mmol/L 01/13/2025 4:45 AM EDT [facility] Total Calcium, Plasma 8.4(L) 8.9 - 10.2 mg/dL 01/13/2025 4:45 AM EDT [facility] Total Protein 5.7(L) 6.3 - 7.9 g/dL 01/13/2025 4:45 AM EDT [facility] Albumin, Plasma 2.7(L) 3.5 - 5.2 g/dL 01/13/2025 4:45 AM EDT [facility] AST, Plasma 20 10 - 50 U/L 01/13/2025 4:45 AM EDT [facility] ALT, Plasma 15 10 - 50 U/L 01/13/2025 4:45 AM EDT [facility] Alkaline Phosphatase, Plasma 67 40 - 115 U/L 01/13/2025 4:45 AM EDT [facility] Total Bilirubin, Plasma 0.4 0.2 - 1.1 mg/dL 01/13/2025 4:45 AM EDT [facility] eGFRcr 101.7 mL/min/1.7 3m*2 01/13/2025 4:45 AM EDT [facility] Comment:Reported eGFRcr in m L/min/1.73m2 is based the CKD-EPI 2020 equation that does not use a race coefficient. Blood Venous blood specimen / Unknown Venipuncture / Unknown 01/13/2025 3:37 AM EDT 01/13/2025 4:14 AM EDT us Farhad Castillo MD LAB BLOOD ORDERABLES Final Result [facility] [address] [place] [address] * (ABNORMAL) CBC W/O Differential (01/13/2025 3:37 AM EDT) WBC Count 11.46(H) 3.70 - 10.30 10*3/uL LAB HEMATOLOGY METHOD 01/13/2025 4:24 AM EDT [facility] RBC Count 3.36(L) 4.60 - 6.10 10*6/uL LAB HEMATOLOGY METHOD 01/13/2025 4:24 AM EDT [facility] HGB 9.9(L) 13.7 - 17.5 g/dL LAB HEMATOLOGY METHOD 01/13/2025 4:24 AM EDT [facility] HCT 30.6(L) 40.0 - 51.0 % LAB HEMATOLOGY METHOD 01/13/2025 4:24 AM EDT [facility] Platelet Count 244 155 - 369 10*3/uL LAB HEMATOLOGY METHOD 01/13/2025 4:24 AM EDT [facility] MCV 91 79 - 98 fL LAB HEMATOLOGY METHOD 01/13/2025 4:24 AM EDT [facility] MCH 29.5 26.0 - 32.0 pg LAB HEMATOLOGY METHOD 01/13/2025 4:24 AM EDT [facility] MCHC 32.4 30.7 - 35.5 g/dL LAB HEMATOLOGY METHOD 01/13/2025 4:24 AM EDT [facility] RDW 13.2 11.5 - 14.5 % LAB HEMATOLOGY METHOD 01/13/2025 4:24 AM EDT [facility] MPV 8.8 8.8 - 12.5 fL LAB HEMATOLOGY METHOD 01/13/2025 4:24 AM EDT [facility] nRBC 0.0 <=0.0 per 100 WBCs LAB HEMATOLOGY METHOD 01/13/2025 4:24 AM EDT [facility] Blood Venous blood specimen / Unknown Venipuncture / Unknown 01/13/2025 3:37 AM EDT 01/13/2025 4:17 AM EDT us Farhad Castillo MD LAB BLOOD ORDERABLES Final Result [facility] [address] [place] [address] * (ABNORMAL) POCT glucose meter (01/12/2025 7:26 PM EDT) POCT Glucose 186(H) 74 - 99 mg/dL 01/12/2025 7:28 PM EDT [facility] Comment:Accuracy of a [...] Comment 01/12/2025 7:28 PM EDT [facility] Clerical Aide ID Niurka Taylor 01/12/2025 7:28 PM EDT [facility] Device ID [id number] 01/12/2025 7:28 PM EDT [facility] Specimen Type POC Capillary 01/12/2025 7:28 PM EDT [facility] Blood Capillary blood specimen / Unknown 01/12/2025 7:26 PM EDT 01/12/2025 7:28 PM EDT Farhad Castillo MD LAB POINT OF CARE TEST DOCKED DEVICE UNSOLICITED RESULTS Final Result Performing Organization Address City/[facility]/ZIP Co de Phone Number [facility] [address] [place] [address] * (ABNORMAL) POCT glucose meter (01/12/2025 4:09 PM EDT) POCT Glucose 157(H) 74 - 99 mg/dL 01/12/2025 4:11 PM EDT [facility] Comment:Accuracy of [...] for testing. Comment 01/12/2025 4:11 PM EDT [facility] Clerical Aide ID Vita Holder 01/12/2025 4:11 PM EDT [facility] Device ID [id number] 01/12/2025 4:11 PM EDT [facility] Specimen Type POC Capillary 01/12/2025 4:11 PM EDT [facility] Blood Capillary blood specimen / Unknown 01/12/2025 4:09 PM EDT 01/12/2025 4:11 PM EDT Farhad Castillo MD LAB POINT OF CARE TEST DOCKED DEVICE UNSOLICITED RESULTS Final Result [facility] [address] [place] [address] * (ABNORMAL) POCT glucose meter (01/12/2025 11:54 AM EDT) POCT Glucose 181(H) 74 - 99 mg/dL [...] for testing. Comment 01/12/2025 11:56 AM EDT [facility] Clerical Aide ID Vita Holder 01/12/2025 11:56 AM EDT [facility] Device ID [id number] 01/12/2025 11:56 AM EDT [facility] Specimen Type POC Capillary 01/12/2025 11:56 AM EDT [facility] Blood Capillary blood specimen / Unknown 01/12/2025 11:54 AM EDT 01/12/2025 11:56 AM EDT us Farhad Castillo MD LAB POINT OF CARE TEST DOCKED DEVICE UNSOLICITED RESULTS Final Result Performing Organization Address City/State/[facility] Co de Phone Number [facility] [address] [place] [address] * (ABNORMAL) POCT glucose meter (01/12/2025 8:08 [...] Comment 01/12/2025 8:10 AM EDT [facility] Clerical Aide ID Vita Holder 01/12/2025 8:10 AM EDT [facility] Device ID [id number] 01/12/2025 8:10 AM EDT [facility] Specimen Type POC Capillary 01/12/2025 8:10 AM EDT [facility] Blood Capillary blood specimen / Unknown 01/12/2025 8:08 AM EDT 01/12/2025 8:10 AM EDT us Farhad Castillo MD LAB POINT OF CARE TEST DOCKED DEVICE UNSOLICITED RESULTS Final Result Performing Organization Address City/[facility]/ZIP Co de Phone Number [facility] [address] [place] [address] * Phosphorus (01/12/2025 3:39 AM EDT) Phosphorus, Plasma 3.1 2.5 - 4.5 mg/dL 01/12/2025 4:34 AM EDT [facility] Blood Venous blood specimen / Unknown Venipuncture / Unknown 01/12/2025 3:39 AM EDT 01/12/2025 4:06 AM EDT us Farhad Castillo MD LAB BLOOD ORDERABLES Final Result Performing Organization Address City/[facility]/ZIP Co de Phone Number [facility] [address] [place] [address] * Magnesium (01/12/2025 3:39 AM EDT) Magnesium, Plasma 1.9 1.9 - 2.4 mg/dL 01/12/2025 4:34 AM EDT [facility] Blood Venous blood specimen / Unknown Venipuncture / Unknown 01/12/2025 3:39 AM EDT 01/12/2025 4:06 AM EDT us Farhad Castillo MD LAB BLOOD ORDERABLES Final Result Performing Organization Address City/[facility]/ZIP Co de Phone Number [facility] [address] [place] [address] * (ABNORMAL) Comprehensive metabolic panel (01/12/2025 3:39 AM EDT) Glucose, Plasma 139(H) 74 - 99 mg/dL 01/12/2025 4:34 AM EDT [facility] BUN, Plasma 7(L) 8 - 23 mg/dL 01/12/2025 4:34 AM EDT [facility] Creatinine, Plasma 0.77 0.70 - 1.20 mg/dL 01/12/2025 4:34 AM EDT [facility] BUN/Creatinine Ratio 9 01/12/2025 4:34 AM EDT [facility] Sodium, Plasma 137 136 - 145 mmol/L 01/12/2025 4:34 AM EDT [facility] Potassium, Plasma 3.7 3.6 - 4.9 mmol/L 01/12/2025 4:34 AM EDT [facility] Chloride, Plasma 105 97 - 107 mmol/L 01/12/2025 4:34 AM EDT [facility] CO2, Plasma 23 22 - 29 mmol/L 01/12/2025 4:34 AM EDT [facility] Anion Gap 9 6 - 16 mmol/L 01/12/2025 4:34 AM EDT [facility] Total Calcium, Plasma 8.4(L) 8.9 - 10.2 mg/dL 01/12/2025 4:34 AM EDT [facility] Total Protein 5.5(L) 6.3 - 7.9 g/dL 01/12/2025 4:34 AM EDT [facility] Albumin, Plasma 2.7(L) 3.5 - 5.2 g/dL 01/12/2025 4:34 AM EDT [facility] AST, Plasma 22 10 - 50 U/L 01/12/2025 4:34 AM EDT [facility] ALT, Plasma 16 10 - 50 U/L 01/12/2025 4:34 AM EDT [facility] Alkaline Phosphatase, Plasma 65 40 - 115 U/L 01/12/2025 4:34 AM EDT [facility] Total Bilirubin, Plasma 0.4 0.2 - 1.1 mg/dL 01/12/2025 4:34 AM EDT [facility] eGFRcr 102.5 mL/min/1.7 3m*2 01/12/2025 4:34 AM EDT [facility] Comment:Reported eGFRcr in m L/min/1.73m2 is based the CKD-EPI 2020 equation that does not use a race coefficient. Blood Venous blood specimen / Unknown Venipuncture / Unknown 01/12/2025 3:39 AM EDT 01/12/2025 4:06 AM EDT us Farhad Castillo MD LAB BLOOD ORDERABLES Final Result [facility] [address] [place] [address] * (ABNORMAL) CBC W/O Differential (01/12/2025 3:39 AM EDT) WBC Count 10.27 3.70 - 10.30 10*3/uL LAB HEMATOLOGY METHOD 01/12/2025 4:19 AM EDT [facility] RBC Count 3.40(L) 4.60 - 6.10 10*6/uL LAB HEMATOLOGY METHOD 01/12/2025 4:19 AM EDT [facility] HGB 10.2(L) 13.7 - 17.5 g/dL LAB HEMATOLOGY METHOD 01/12/2025 4:19 AM EDT [facility] HCT 31.0(L) 40.0 - 51.0 % LAB HEMATOLOGY METHOD 01/12/2025 4:19 AM EDT [facility] Platelet Count 250 155 - 369 10*3/uL LAB HEMATOLOGY METHOD 01/12/2025 4:19 AM EDT [facility] MCV 91 79 - 98 fL LAB HEMATOLOGY METHOD 01/12/2025 4:19 AM EDT [facility] MCH 30.0 26.0 - 32.0 pg LAB HEMATOLOGY METHOD 01/12/2025 4:19 AM EDT [facility] MCHC 32.9 30.7 - 35.5 g/dL LAB HEMATOLOGY METHOD 01/12/2025 4:19 AM EDT [facility] RDW 13.3 11.5 - 14.5 % LAB HEMATOLOGY METHOD 01/12/2025 4:19 AM EDT [facility] MPV 8.7(L) 8.8 - 12.5 fL LAB HEMATOLOGY METHOD 01/12/2025 4:19 AM EDT [facility] nRBC 0.0 <=0.0 per 100 WBCs LAB HEMATOLOGY METHOD 01/12/2025 4:19 AM EDT [facility] Blood Venous blood specimen / Unknown Venipuncture / Unknown 01/12/2025 3:39 AM EDT 01/12/2025 4:07 AM EDT Farhad Castillo MD LAB BLOOD ORDERABLES Final Result Performing Organization Address City/[facility]/ZIP Co de Phone Number [facility] [address] [place] [address] * (ABNORMAL) POCT glucose meter (01/11/2025 7:57 PM EDT) POCT Glucose 146(H) 74 - 99 mg/dL [...] Comment 01/11/2025 7:59 PM EDT [facility] Clerical Aide ID Bere Wheeler 025 7:59 PM EDT [facility] Device ID [id number] 01/11/2025 7:59 PM EDT [facility] Specimen Type POC Capillary 01/11/2025 7:59 PM EDT [facility] Blood Capillary blood specimen / Unknown 01/11/2025 7:57 PM EDT 01/11/2025 7:59 PM EDT us Farhad Castillo MD LAB POINT OF CARE TEST DOCKED DEVICE UNSOLICITED RESULTS Final Result Performing Organization Address City/[facility] Co de Phone Number [facility] [address] [place] [address] * (ABNORMAL) POCT glucose meter (01/11/2025 4:42 PM EDT) POCT Glucose 140(H) 74 - 99 [...] 01/11/2025 4:45 PM EDT [facility] Clerical Aide ID Domenica Hdz 01/11/2025 4:45 PM EDT [facility] Device ID [id number] 01/11/2025 4:45 PM EDT [facility] Specimen Type POC Capillary 01/11/2025 4:45 PM EDT [facility] Blood Capillary blood specimen / Unknown 01/11/2025 4:42 PM EDT 01/11/2025 4:45 PM EDT us Farhad Castillo MD LAB POINT OF CARE TEST DOCKED DEVICE UNSOLICITED RESULTS Final Result Performing Organization Address [facility] Co de Phone Number [facility] [address] [place] [address] * (ABNORMAL) POCT glucose meter (01/11/2025 11:33 AM EDT) POCT Glucose 124(H) 74 - 99 mg/dL 01/11/2025 11:38 AM EDT [facility] Comment:Accuracy of a [...] for testing. Comment 01/11/2025 11:38 AM EDT [facility] Clerical Aide ID Domenica Hdz 01/11/2025 11:38 AM EDT [facility] Device ID [id number] 01/11/2025 11:38 AM EDT [facility] Specimen Type POC Capillary 01/11/2025 11:38 AM EDT [facility] Blood Capillary blood specimen / Unknown 01/11/2025 11:33 AM EDT 01/11/2025 11:38 AM EDT us Farhad Castillo MD LAB POINT OF CARE TEST DOCKED DEVICE UNSOLICITED RESULTS Final Result Performing Organization Address City/[facility]/ZIP Co de Phone Number [facility] [address] [place] [address] * (ABNORMAL) POCT glucose meter (01/11/2025 9:01 [...] Comment 01/11/2025 9:09 AM EDT [facility] Clerical Aide ID Domenica Hdz 01/11/2025 9:09 AM EDT [facility] Device ID [id number] 01/11/2025 9:09 AM EDT [facility] Specimen Type POC Capillary 01/11/2025 9:09 AM EDT [facility] Blood Capillary blood specimen / Unknown 01/11/2025 9:01 AM EDT 01/11/2025 9:09 AM EDT Farhad Castillo MD LAB POINT OF CARE TEST DOCKED DEVICE UNSOLICITED RESULTS Final Result Performing Organization Address City/State/[facility] Co de Phone Number [facility] [address] [place] [address] * (ABNORMAL) POCT glucose meter (01/11/2025 5:37 AM EDT) Pathologist [facility] POCT Glucose 105(H) 74 - 99 mg/dL 01/11/2025 5:39 AM EDT [facility] Comment:Accuracy of [...] for testing. Comment 01/11/2025 5:39 AM EDT [facility] Clerical Aide ID Bere Wheeler 025 5:39 AM EDT [facility] Device ID [id number] 01/11/2025 5:39 AM EDT [facility] Specimen Type POC Capillary 01/11/2025 5:39 AM EDT [facility] Blood Capillary blood specimen / Unknown 01/11/2025 5:37 AM EDT 01/11/2025 5:39 AM EDT us Farhad Castillo MD LAB POINT OF CARE TEST DOCKED DEVICE UNSOLICITED RESULTS Final Result Performing Organization Address City/[facility]/ZIP Co de Phone Number [facility] [address] [place] [address] * Phosphorus (01/11/2025 3:49 AM EDT) Phosphorus, Plasma 3.4 2.5 - 4.5 mg/dL 01/11/2025 4:49 AM EDT [facility] Blood Venous blood specimen / Unknown Venipuncture / Unknown 01/11/2025 3:49 AM EDT 01/11/2025 4:19 AM EDT us Farhad Castillo MD LAB BLOOD ORDERABLES Final Result Performing Organization Address City/[facility]/ZIP Co de Phone Number [facility] [address] [place] [address] * Magnesium (01/11/2025 3:49 AM EDT) Magnesium, Plasma 1.9 1.9 - 2.4 mg/dL 01/11/2025 4:49 AM EDT [facility] Blood Venous blood specimen / Unknown Venipuncture / Unknown 01/11/2025 3:49 AM EDT 01/11/2025 4:19 AM EDT us Farhad Castillo MD LAB BLOOD ORDERABLES Final Result Performing Organization Address City/[facility]/ZIP Co de Phone Number [facility] [address] [place] [address] * (ABNORMAL) Comprehensive metabolic panel (01/11/2025 3:49 AM EDT) Glucose, Plasma 105(H) 74 - 99 mg/dL 01/11/2025 4:49 AM EDT [facility] BUN, Plasma 8 8 - 23 mg/dL 01/11/2025 4:49 AM EDT [facility] Creatinine, Plasma 0.75 0.70 - 1.20 mg/dL 01/11/2025 4:49 AM EDT [facility] BUN/Creatinine Ratio 11 01/11/2025 4:49 AM EDT [facility] Sodium, Plasma 136 136 - 145 mmol/L 01/11/2025 4:49 AM EDT [facility] Potassium, Plasma 3.6 3.6 - 4.9 mmol/L 01/11/2025 4:49 AM EDT [facility] Chloride, Plasma 103 97 - 107 mmol/L 01/11/2025 4:49 AM EDT [facility] CO2, Plasma 23 22 - 29 mmol/L 01/11/2025 4:49 AM EDT [facility] Anion Gap 10 6 - 16 mmol/L 01/11/2025 4:49 AM EDT [facility] Total Calcium, Plasma 8.6(L) 8.9 - 10.2 mg/dL 01/11/2025 4:49 AM EDT [facility] Total Protein 5.8(L) 6.3 - 7.9 g/dL 01/11/2025 4:49 AM EDT [facility] Albumin, Plasma 2.7(L) 3.5 - 5.2 g/dL 01/11/2025 4:49 AM EDT [facility] AST, Plasma 29 10 - 50 U/L 01/11/2025 4:49 AM EDT [facility] ALT, Plasma 25 10 - 50 U/L 01/11/2025 4:49 AM EDT [facility] Alkaline Phosphatase, Plasma 66 40 - 115 U/L 01/11/2025 4:49 AM EDT [facility] Total Bilirubin, Plasma 0.4 0.2 - 1.1 mg/dL 01/11/2025 4:49 AM EDT [facility] eGFRcr 103.3 mL/min/1.7 3m*2 01/11/2025 4:49 AM EDT [facility] Comment:Reported eGFRcr in m L/min/1.73m2 is based the CKD-EPI 2020 equation that does not use a race coefficient. Blood Venous blood specimen / Unknown Venipuncture / Unknown 01/11/2025 3:49 AM EDT 01/11/2025 4:19 AM EDT us Farhad Castillo MD LAB BLOOD ORDERABLES Final Result [facility] [address] [place] [address] * (ABNORMAL) CBC W/O Differential (01/11/2025 3:49 AM EDT) WBC Count 10.73(H) 3.70 - 10.30 10*3/uL LAB HEMATOLOGY METHOD 01/11/2025 4:32 AM EDT [facility] RBC Count 3.40(L) 4.60 - 6.10 10*6/uL LAB HEMATOLOGY METHOD 01/11/2025 4:32 AM EDT [facility] HGB 10.3(L) 13.7 - 17.5 g/dL LAB HEMATOLOGY METHOD 01/11/2025 4:32 AM EDT [facility] HCT 31.1(L) 40.0 - 51.0 % LAB HEMATOLOGY METHOD 01/11/2025 4:32 AM EDT [facility] Platelet Count 254 155 - 369 10*3/uL LAB HEMATOLOGY METHOD 01/11/2025 4:32 AM EDT [facility] MCV 92 79 - 98 fL LAB HEMATOLOGY METHOD 01/11/2025 4:32 AM EDT [facility] MCH 30.3 26.0 - 32.0 pg LAB HEMATOLOGY METHOD 01/11/2025 4:32 AM EDT [facility] MCHC 33.1 30.7 - 35.5 g/dL LAB HEMATOLOGY METHOD 01/11/2025 4:32 AM EDT [facility] RDW 13.2 11.5 - 14.5 % LAB HEMATOLOGY METHOD 01/11/2025 4:32 AM EDT [facility] MPV 8.7(L) 8.8 - 12.5 fL LAB HEMATOLOGY METHOD 01/11/2025 4:32 AM EDT [facility] nRBC 0.0 <=0.0 per 100 WBCs LAB HEMATOLOGY METHOD 01/11/2025 4:32 AM EDT [facility] Blood Venous blood specimen / Unknown Venipuncture / Unknown 01/11/2025 3:49 AM EDT 01/11/2025 4:20 AM EDT Farhad Castillo MD LAB BLOOD ORDERABLES Final Result Performing Organization Address City/[facility]/ZIP Co de Phone Number [facility] [address] [place] [address] * (ABNORMAL) POCT glucose meter (01/11/2025 1:02 [...] for testing. Comment 01/11/2025 1:04 AM EDT [facility] Clerical Aide ID Bere Wheeler 025 1:04 AM EDT [facility] Device ID [id number] 01/11/2025 1:04 AM EDT [facility] Specimen Type POC Capillary 01/11/2025 1:04 AM EDT [facility] Blood Capillary blood specimen / Unknown 01/11/2025 1:02 AM EDT 01/11/2025 1:04 AM EDT us Farhad Castillo MD LAB POINT OF CARE TEST DOCKED DEVICE UNSOLICITED RESULTS Final Result [facility] [address] [place] [address] * POCT glucose meter (01/11/2025 12:34 AM [...] Comment 01/11/2025 12:36 AM EDT [facility] Clerical Aide ID Bere Wheeler 025 12:36 AM EDT [facility] Device ID [id number] 01/11/2025 12:36 AM EDT [facility] Specimen Type POC Capillary 01/11/2025 12:36 AM EDT [facility] Blood Capillary blood specimen / Unknown 01/11/2025 12:34 AM EDT 01/11/2025 12:36 AM EDT Farhad Castillo MD LAB POINT OF CARE TEST DOCKED DEVICE UNSOLICITED RESULTS Final Result Performing Organization Address City/State/[facility] Co de Phone Number [facility] [address] [place] [address] * POCT glucose meter (01/10/2025 11:35 PM EDT) [facility] POCT Glucose 90 74 - 99 mg/dL 01/10/2025 11:37 PM EDT [facility] Comment:Accuracy of a [...] for testing. Comment 01/10/2025 11:37 PM EDT [facility] Clerical Aide ID Bere Wheeler 025 11:37 PM EDT [facility] Device ID [id number] 01/10/2025 11:37 PM EDT [facility] Specimen Type POC Capillary 01/10/2025 11:37 PM EDT [facility] Blood Capillary blood specimen / Unknown 01/10/2025 11:35 PM EDT 01/10/2025 11:37 PM EDT Farhad Castillo MD LAB POINT OF CARE TEST DOCKED DEVICE UNSOLICITED RESULTS Final Result Performing Organization Address City/[facility] Co de Phone Number [facility] [address] [place] [address] * (ABNORMAL) POCT glucose meter (01/10/2025 5:12 PM EDT) Pathologist [facility] POCT Glucose 125(H) 74 - 99 mg/dL [...] Comment 01/10/2025 5:14 PM EDT [facility] Clerical Aide ID Vita Holder 01/10/2025 5:14 PM EDT [facility] Device ID [id number] 01/10/2025 5:14 PM EDT [facility] Specimen Type POC Capillary 01/10/2025 5:14 PM EDT [facility] Blood Capillary blood specimen / Unknown 01/10/2025 5:12 PM EDT 01/10/2025 5:14 PM EDT Farhad Castillo MD LAB POINT OF CARE TEST DOCKED DEVICE UNSOLICITED RESULTS Final Result Performing Organization Address City/[facility] Co de Phone Number [facility] [address] [place] [address] * POCT glucose meter (01/10/2025 11:26 AM EDT) [facility] POCT Glucose 96 74 - 99 mg/dL [...] 01/10/2025 11:28 AM EDT [facility] Clerical Aide ID Vita Holder 01/10/2025 11:28 AM EDT [facility] Device ID [id number] 01/10/2025 11:28 AM EDT [facility] Specimen Type POC Capillary 01/10/2025 11:28 AM EDT [facility] Blood Capillary blood specimen / Unknown 01/10/2025 11:26 AM EDT 01/10/2025 11:28 AM EDT Farhad Castillo MD LAB POINT OF CARE TEST DOCKED DEVICE UNSOLICITED RESULTS Final Result [facility] [address] [place] [address] * PERIPHERAL IV ([employer]) (01/10/2025 10:19 AM EDT) Narrative Iliana Lee, RN - 01/10/2025 10:19 AM EDT Iliana Lee RN 01/10/2025 10:20 AM Insert peripheral IV [...] POCT glucose meter (01/10/2025 6:16 AM EDT) [facility] POCT Glucose 111(H) 74 - 99 mg/dL [...] for testing. Comment 01/10/2025 6:18 AM EDT [facility] Clerical Aide ID Cookie Garcia 025 6:18 AM EDT [facility] Device ID [id number] 01/10/2025 6:18 AM EDT [facility] Specimen Type POC Capillary 01/10/2025 6:18 AM EDT [facility] Blood Capillary blood specimen / Unknown 01/10/2025 6:16 AM EDT 01/10/2025 6:18 AM EDT us Farhad Castillo MD LAB POINT OF CARE TEST DOCKED DEVICE UNSOLICITED RESULTS Final Result Performing Organization Address City/[facility] Co de Phone Number [facility] [address] [place] [address] * Phosphorus (01/10/2025 3:56 AM EDT) Phosphorus, Plasma 3.2 2.5 - 4.5 mg/dL 01/10/2025 4:34 AM EDT [facility] Blood Venous blood specimen / Unknown Venipuncture / Unknown 01/10/2025 3:56 AM EDT 01/10/2025 4:03 AM EDT us Farhad Castillo MD LAB BLOOD ORDERABLES Final Result [facility] [address] [place] [address] * Magnesium (01/10/2025 3:56 AM EDT) Magnesium, Plasma 2.1 1.9 - 2.4 mg/dL 01/10/2025 4:34 AM EDT [facility] Blood Venous blood specimen / Unknown Venipuncture / Unknown 01/10/2025 3:56 AM EDT 01/10/2025 4:03 AM EDT us Farhad Castillo MD LAB BLOOD ORDERABLES Final Result [facility] [address] [place] [address] * (ABNORMAL) Comprehensive metabolic panel (01/10/2025 3:56 AM EDT) Glucose, Plasma 104(H) 74 - 99 mg/dL 01/10/2025 4:34 AM EDT [facility] BUN, Plasma 10 8 - 23 mg/dL 01/10/2025 4:34 AM EDT [facility] Creatinine, Plasma 0.78 0.70 - 1.20 mg/dL 01/10/2025 4:34 AM EDT [facility] BUN/Creatinine Ratio 13 01/10/2025 4:34 AM EDT [facility] Sodium, Plasma 136 136 - 145 mmol/L 01/10/2025 4:34 AM EDT [facility] Potassium, Plasma 4.0 3.6 - 4.9 mmol/L 01/10/2025 4:34 AM EDT [facility] Chloride, Plasma 102 97 - 107 mmol/L 01/10/2025 4:34 AM EDT [facility] CO2, Plasma 23 22 - 29 mmol/L 01/10/2025 4:34 AM EDT [facility] Anion Gap 11 6 - 16 mmol/L 01/10/2025 4:34 AM EDT [facility] Total Calcium, Plasma 8.3(L) 8.9 - 10.2 mg/dL 01/10/2025 4:34 AM EDT [facility] Total Protein 5.7(L) 6.3 - 7.9 g/dL 01/10/2025 4:34 AM EDT [facility] Albumin, Plasma 2.6(L) 3.5 - 5.2 g/dL 01/10/2025 4:34 AM EDT [facility] AST, Plasma 31 10 - 50 U/L 01/10/2025 4:34 AM EDT [facility] [facility] ALT, Plasma 35 10 - 50 U/L 01/10/2025 4:34 AM EDT [facility] Alkaline Phosphatase, Plasma 61 40 - 115 U/L 01/10/2025 4:34 AM EDT [facility] Total Bilirubin, Plasma 0.5 0.2 - 1.1 mg/dL 01/10/2025 4:34 AM EDT [facility] eGFRcr 102.1 mL/min/1.7 3m*2 01/10/2025 4:34 AM EDT [facility] Comment:Reported eGFRcr in m L/min/1.73m2 is based the CKD-EPI 2020 equation that does not use a race coefficient. Blood Venous blood specimen / Unknown Venipuncture / Unknown 01/10/2025 3:56 AM EDT 01/10/2025 4:03 AM EDT us Farhad Castillo MD LAB BLOOD ORDERABLES Final Result [facility] [address] [place] [address] * (ABNORMAL) CBC W/O Differential (01/10/2025 3:56 AM EDT) WBC Count 12.33(H) 3.70 - 10.30 10*3/uL LAB HEMATOLOGY METHOD 01/10/2025 4:18 AM EDT [facility] RBC Count 3.60(L) 4.60 - 6.10 10*6/uL LAB HEMATOLOGY METHOD 01/10/2025 4:18 AM EDT [facility] HGB 10.6(L) 13.7 - 17.5 g/dL LAB HEMATOLOGY METHOD 01/10/2025 4:18 AM EDT [facility] HCT 33.1(L) 40.0 - 51.0 % LAB HEMATOLOGY METHOD 01/10/2025 4:18 AM EDT [facility] Platelet Count 244 155 - 369 10*3/uL LAB HEMATOLOGY METHOD 01/10/2025 4:18 AM EDT [facility] MCV 92 79 - 98 fL LAB HEMATOLOGY METHOD 01/10/2025 4:18 AM EDT [facility] MCH 29.4 26.0 - 32.0 pg LAB HEMATOLOGY METHOD 01/10/2025 4:18 AM EDT [facility] MCHC 32.0 30.7 - 35.5 g/dL LAB HEMATOLOGY METHOD 01/10/2025 4:18 AM EDT [facility] RDW 13.3 11.5 - 14.5 % LAB HEMATOLOGY METHOD 01/10/2025 4:18 AM EDT [facility] MPV 9.1 8.8 - 12.5 fL LAB HEMATOLOGY METHOD 01/10/2025 4:18 AM EDT [facility] nRBC 0.0 <=0.0 per 100 WBCs LAB HEMATOLOGY METHOD 01/10/2025 4:18 AM EDT [facility] Blood Venous blood specimen / Unknown Venipuncture / Unknown 01/10/2025 3:56 AM EDT 01/10/2025 4:03 AM EDT us Farhad Castillo MD LAB BLOOD ORDERABLES Final Result [facility] [address] [place] [address] * (ABNORMAL) POCT glucose meter (01/09/2025 11:45 PM EDT) [facility] POCT Glucose 131(H) 74 - 99 mg/dL [...] Comment 01/09/2025 11:52 PM EDT [facility] Clerical Aide ID Cookie Garcia 025 11:52 PM EDT [facility] Device ID [id number] 01/09/2025 11:52 PM EDT [facility] Specimen Type POC Capillary 01/09/2025 11:52 PM EDT [facility] Blood Capillary blood specimen / Unknown 01/09/2025 11:45 PM EDT 01/09/2025 11:52 PM EDT us Farhad Castillo MD LAB POINT OF CARE TEST DOCKED DEVICE UNSOLICITED RESULTS Final Result Performing Organization Address [facility] Co de Phone Number [facility] [address] [place] [address] * (ABNORMAL) POCT glucose meter (01/09/2025 5:44 PM EDT) [facility] POCT Glucose 126(H) 74 - 99 mg/dL [...] Comment 01/09/2025 5:46 PM EDT [facility] Clerical Aide ID Cara Adams 01/09/2025 5:46 PM EDT [facility] Device ID [id number] 01/09/2025 5:46 PM EDT [facility] Specimen Type POC Capillary 01/09/2025 5:46 PM EDT [facility] Blood Capillary blood specimen / Unknown 01/09/2025 5:44 PM EDT 01/09/2025 5:46 PM EDT Farhad Castillo MD LAB POINT OF CARE TEST DOCKED DEVICE UNSOLICITED RESULTS Final Result Performing Organization Address [facility] de Phone Number [facility] [address] [place] [address] * (ABNORMAL) POCT glucose meter (01/09/2025 11:55 AM EDT) [facility] POCT Glucose 119(H) 74 - 99 mg/dL [...] 01/09/2025 11:57 AM EDT [facility] Clerical Aide ID Cara Adams 01/09/2025 11:57 AM EDT [facility] Device ID [id number] 01/09/2025 11:57 AM EDT [facility] Specimen Type POC Capillary 01/09/2025 11:57 AM EDT [facility] Blood Capillary blood specimen / Unknown 01/09/2025 11:55 AM EDT 01/09/2025 11:57 AM EDT us Farhad Castillo MD LAB POINT OF CARE TEST DOCKED DEVICE UNSOLICITED RESULTS Final Result [facility] [address] [place] [address] * (ABNORMAL) Phosphorus (01/09/2025 3:54 AM EDT) Phosphorus, Plasma 2.4(L) 2.5 - 4.5 mg/dL 01/09/2025 4:34 AM EDT [facility] Blood Venous blood specimen / Unknown Venipuncture / Unknown 01/09/2025 3:54 AM EDT 01/09/2025 3:59 AM EDT us Farhad Castillo MD LAB BLOOD ORDERABLES Final Result Performing Organization Address City/[facility]/ZIP Co de Phone Number [facility] [address] [place] [address] * (ABNORMAL) Magnesium (01/09/2025 3:54 AM EDT) Magnesium, Plasma 1.8(L) 1.9 - 2.4 mg/dL 01/09/2025 4:34 AM EDT [facility] Blood Venous blood specimen / Unknown Venipuncture / Unknown 01/09/2025 3:54 AM EDT 01/09/2025 3:59 AM EDT us Farhad Castillo MD LAB BLOOD ORDERABLES Final Result Performing Organization Address City/[facility]/ZIP Co de Phone Number [facility] [address] [place] [address] * (ABNORMAL) Comprehensive metabolic panel (01/09/2025 3:54 AM EDT) Glucose, Plasma 131(H) 74 - 99 mg/dL 01/09/2025 4:34 AM EDT [facility] BUN, Plasma 10 8 - 23 mg/dL 01/09/2025 4:34 AM EDT [facility] Creatinine, Plasma 0.79 0.70 - 1.20 mg/dL 01/09/2025 4:34 AM EDT [facility] BUN/Creatinine Ratio 13 01/09/2025 4:34 AM EDT [facility] Sodium, Plasma 134(L) 136 - 145 mmol/L 01/09/2025 4:34 AM EDT [facility] Potassium, Plasma 4.0 3.6 - 4.9 mmol/L 01/09/2025 4:34 AM EDT [facility] Chloride, Plasma 102 97 - 107 mmol/L 01/09/2025 4:34 AM EDT [facility] CO2, Plasma 24 22 - 29 mmol/L 01/09/2025 4:34 AM EDT [facility] Anion Gap 8 6 - 16 mmol/L 01/09/2025 4:34 AM EDT [facility] Total Calcium, Plasma 8.3(L) 8.9 - 10.2 mg/dL 01/09/2025 4:34 AM EDT [facility] Total Protein 5.5(L) 6.3 - 7.9 g/dL 01/09/2025 4:34 AM EDT [facility] Albumin, Plasma 2.8(L) 3.5 - 5.2 g/dL 01/09/2025 4:34 AM EDT [facility] AST, Plasma 50 10 - 50 U/L 01/09/2025 4:34 AM EDT [facility] ALT, Plasma 52(H) 10 - 50 U/L 01/09/2025 4:34 AM EDT [facility] Alkaline Phosphatase, Plasma 64 40 - 115 U/L 01/09/2025 4:34 AM EDT [facility] Total Bilirubin, Plasma 0.6 0.2 - 1.1 mg/dL 01/09/2025 4:34 AM EDT [facility] eGFRcr 101.7 mL/min/1.7 3m*2 01/09/2025 4:34 AM EDT [facility] Comment:Reported eGFRcr in m L/min/1.73m2 is based the CKD-EPI 2020 equation that does not use a race coefficient. Blood Venous blood specimen / Unknown Venipuncture / Unknown 01/09/2025 3:54 AM EDT 01/09/2025 3:59 AM EDT us Farhad Castillo MD LAB BLOOD ORDERABLES Final Result [facility] [address] [place] [address] * (ABNORMAL) CBC W/O Differential (01/09/2025 3:54 AM EDT) WBC Count 14.81(H) 3.70 - 10.30 10*3/uL LAB HEMATOLOGY METHOD 01/09/2025 4:15 AM EDT [facility] RBC Count 3.53(L) 4.60 - 6.10 10*6/uL LAB HEMATOLOGY METHOD 01/09/2025 4:15 AM EDT [facility] HGB 10.5(L) 13.7 - 17.5 g/dL LAB HEMATOLOGY METHOD 01/09/2025 4:15 AM EDT [facility] HCT 32.5(L) 40.0 - 51.0 % LAB HEMATOLOGY METHOD 01/09/2025 4:15 AM EDT [facility] Platelet Count 211 155 - 369 10*3/uL LAB HEMATOLOGY METHOD 01/09/2025 4:15 AM EDT [facility] MCV 92 79 - 98 fL LAB HEMATOLOGY METHOD 01/09/2025 4:15 AM EDT [facility] MCH 29.7 26.0 - 32.0 pg LAB HEMATOLOGY METHOD 01/09/2025 4:15 AM EDT [facility] MCHC 32.3 30.7 - 35.5 g/dL LAB HEMATOLOGY METHOD 01/09/2025 4:15 AM EDT [facility] RDW 13.4 11.5 - 14.5 % LAB HEMATOLOGY METHOD 01/09/2025 4:15 AM EDT [facility] MPV 8.9 8.8 - 12.5 fL LAB HEMATOLOGY METHOD 01/09/2025 4:15 AM EDT [facility] nRBC 0.0 <=0.0 per 100 WBCs LAB HEMATOLOGY METHOD 01/09/2025 4:15 AM EDT [facility] Blood Venous blood specimen / Unknown Venipuncture / Unknown 01/09/2025 3:54 AM EDT 01/09/2025 4:02 AM EDT us Farhad Castillo MD LAB BLOOD ORDERABLES Final Result Performing Organization Address City/[facility] Co de Phone Number [facility] [address] [place] [address] * (ABNORMAL) POCT glucose meter (01/08/2025 11:55 PM EDT) [facility] POCT Glucose 141(H) 74 - 99 mg/dL [...] Comment 01/08/2025 11:57 PM EDT [facility] Clerical Aide ID ZakarCookie dalton 025 11:57 PM EDT [facility] Device ID [id number] 01/08/2025 11:57 PM EDT [facility] Specimen Type POC Capillary 01/08/2025 11:57 PM EDT [facility] Blood Capillary blood specimen / Unknown 01/08/2025 11:55 PM EDT 01/08/2025 11:57 PM EDT us Farhad Castillo MD LAB POINT OF CARE TEST DOCKED DEVICE UNSOLICITED RESULTS Final Result Performing Organization Address City/[facility]/ZIP Co de Phone Number [facility] [address] [place] [address] * (ABNORMAL) POCT glucose meter (01/08/2025 6:21 PM EDT) [facility] POCT Glucose 160(H) 74 - 99 mg/dL [...] for testing. Comment 01/08/2025 6:22 PM EDT [facility] Clerical Aide ID Nancy Hughes 01/08/2025 6:22 PM EDT [facility] Device ID [id number] 01/08/2025 6:22 PM EDT [facility] Specimen Type POC Capillary 01/08/2025 6:22 PM EDT [facility] Blood Capillary blood specimen / Unknown 01/08/2025 6:21 PM EDT 01/08/2025 6:22 PM EDT Farhad Castillo MD LAB POINT OF CARE TEST DOCKED DEVICE UNSOLICITED RESULTS Final Result [facility] [address] [place] [address] * (ABNORMAL) POCT glucose meter (01/08/2025 2:21 PM EDT) [facility] POCT Glucose 197(H) 74 - 99 mg/dL [...] 01/08/2025 2:23 PM EDT [facility] Clerical Aide ID Mayra Jefferson 01/08/2025 2:23 PM EDT [facility] Device ID [id number] 01/08/2025 2:23 PM EDT [facility] Specimen Type POC Capillary 01/08/2025 2:23 PM EDT [facility] Blood Capillary blood specimen / Unknown 01/08/2025 2:21 PM EDT 01/08/2025 2:23 PM EDT Farhad Castillo MD LAB POINT OF CARE TEST DOCKED DEVICE UNSOLICITED RESULTS Final Result [facility] [address] [place] [address] * XR Abdomen 1 View (01/08/2025 10:12 [...] abdomen. COMPARISON: Abdominal radiograph 01/08/2025 FINDINGS: Limited [id number] abdominal radiograph for the purpose of locating tube position. The tip and side port of the nasogastric tube are within the proximal stomach. Procedure Note Kareem Marie MD - 01/08/2025 CLINICAL INDICATION: NGT confirmation TECHNIQUE: Supine radiograph of the abdomen. COMPARISON: Abdominal radiograph 01/08/2025 FINDINGS: Limited [id number] abdominal radiograph for the purpose of locatingtube position. The tip and side port of the nasogastric tube are within the proximalstomach. IMPRESSION: The tip and side port of the nasogastric tube are within the proximalstomach. CRITICAL RESULT: No. COMMUNICATION: Per this written report. By electronically signing this report, I, the attending physician, [email or web address] I have personally reviewed the images/data for the aboveexamination(s) and agree with the final edited report. Drafted by Ozzie Pink MD on 01/08/2025 11:51 AM Final report signed by Kareem Marie MD on 01/08/2025 11:54 AM us Paulo Santiago Misty INTERNAL AUDIT MANAGER IMG XR PROCEDURES Final Resul t * [...] Comment 01/08/2025 8:34 AM EDT [facility] Clerical Aide ID Mayra Jefferson 01/08/2025 8:34 AM EDT [facility] Device ID [id number] 01/08/2025 8:34 AM EDT [facility] Specimen Type POC Capillary 01/08/2025 8:34 AM EDT [facility] Blood Capillary blood specimen / Unknown 01/08/2025 8:32 AM EDT 01/08/2025 8:34 AM EDT us Farhad Castillo MD LAB POINT OF CARE TEST DOCKED DEVICE UNSOLICITED RESULTS Final Result [facility] [address] [place] [address] * XR Abdomen 1 View (01/08/2025 8:20 [...] MD on 01/08/2025 9:19 AM Paulo Jay INTERNAL AUDIT MANAGER IMG XR PROCEDURES Final Resul t * (ABNORMAL) Phosphorus (01/08/2025 3:05 AM EDT) Phosphorus, Plasma 2.3(L) 2.5 - 4.5 mg/dL 01/08/2025 3:54 AM EDT [facility] Blood Venous blood specimen / Unknown Venipuncture / Unknown 01/08/2025 3:05 AM EDT 01/08/2025 3:14 AM EDT us Farhad Castillo MD LAB BLOOD ORDERABLES Final Result Performing Organization Address City/[facility]/ZIP Co de Phone Number [facility] [address] [place] [address] * Magnesium (01/08/2025 3:05 AM EDT) Magnesium, Plasma 2.1 1.9 - 2.4 mg/dL 01/08/2025 3:54 AM EDT [facility] Blood Venous blood specimen / Unknown Venipuncture / Unknown 01/08/2025 3:05 AM EDT 01/08/2025 3:14 AM EDT Result Kurt Castillo MD LAB BLOOD ORDERABLES Final Result Performing Organization Address [facility] Co de Phone Number [facility] [address] [place] [address] * (ABNORMAL) Comprehensive metabolic panel (01/08/2025 3:05 AM EDT) Glucose, Plasma 188(H) 74 - 99 mg/dL 01/08/2025 3:54 AM EDT [facility] BUN, Plasma 13 8 - 23 mg/dL 01/08/2025 3:54 AM EDT [facility] Creatinine, Plasma 0.79 0.70 - 1.20 mg/dL 01/08/2025 3:54 AM EDT [facility] BUN/Creatinine Ratio 16 01/08/2025 3:54 AM EDT [facility] Sodium, Plasma 137 136 - 145 mmol/L 01/08/2025 3:54 AM EDT [facility] Potassium, Plasma 4.0 3.6 - 4.9 mmol/L 01/08/2025 3:54 AM EDT [facility] Chloride, Plasma 103 97 - 107 mmol/L 01/08/2025 3:54 AM EDT [facility] CO2, Plasma 22 22 - 29 mmol/L 01/08/2025 3:54 AM EDT [facility] Anion Gap 12 6 - 16 mmol/L 01/08/2025 3:54 AM EDT [facility] Total Calcium, Plasma 8.4(L) 8.9 - 10.2 mg/dL 01/08/2025 3:54 AM EDT [facility] Total Protein 5.9(L) 6.3 - 7.9 g/dL 01/08/2025 3:54 AM EDT [facility] Albumin, Plasma 2.9(L) 3.5 - 5.2 g/dL 01/08/2025 3:54 AM EDT [facility] AST, Plasma 116(H) 10 - 50 U/L 01/08/2025 3:54 AM EDT [facility] ALT, Plasma 91(H) 10 - 50 U/L 01/08/2025 3:54 AM EDT [facility] Alkaline Phosphatase, Plasma 62 40 - 115 U/L 01/08/2025 3:54 AM EDT [facility] Total Bilirubin, Plasma 0.9 0.2 - 1.1 mg/dL 01/08/2025 3:54 AM EDT [facility] eGFRcr 101.7 mL/min/1.7 3m*2 01/08/2025 3:54 AM EDT [facility] Comment:Reported eGFRcr in m L/min/1.73m2 is based the CKD-EPI 2020 equation that does not use a race coefficient. Blood Venous blood specimen / Unknown Venipuncture / Unknown 01/08/2025 3:05 AM EDT 01/08/2025 3:14 AM EDT us Farhad Csatillo MD LAB BLOOD ORDERABLES Final Result [facility] [address] [place] [address] * (ABNORMAL) CBC W/O Differential (01/08/2025 3:05 AM EDT) WBC Count 19.28(H) 3.70 - 10.30 10*3/uL LAB HEMATOLOGY METHOD 01/08/2025 3:25 AM EDT [facility] RBC Count 3.88(L) 4.60 - 6.10 10*6/uL LAB HEMATOLOGY METHOD 01/08/2025 3:25 AM EDT [facility] HGB 11.7(L) 13.7 - 17.5 g/dL LAB HEMATOLOGY METHOD 01/08/2025 3:25 AM EDT [facility] HCT 35.7(L) 40.0 - 51.0 % LAB HEMATOLOGY METHOD 01/08/2025 3:25 AM EDT [facility] Platelet Count 244 155 - 369 10*3/uL LAB HEMATOLOGY METHOD 01/08/2025 3:25 AM EDT [facility] MCV 92 79 - 98 fL LAB HEMATOLOGY METHOD 01/08/2025 3:25 AM EDT [facility] MCH 30.2 26.0 - 32.0 pg LAB HEMATOLOGY METHOD 01/08/2025 3:25 AM EDT [facility] MCHC 32.8 30.7 - 35.5 g/dL LAB HEMATOLOGY METHOD 01/08/2025 3:25 AM EDT [facility] RDW 13.7 11.5 - 14.5 % LAB HEMATOLOGY METHOD 01/08/2025 3:25 AM EDT [facility] MPV 9.2 8.8 - 12.5 fL LAB HEMATOLOGY METHOD 01/08/2025 3:25 AM EDT [facility] nRBC 0.0 <=0.0 per 100 WBCs LAB HEMATOLOGY METHOD 01/08/2025 3:25 AM EDT [facility] Blood Venous blood specimen / Unknown Venipuncture / Unknown 01/08/2025 3:05 AM EDT 01/08/2025 3:16 AM EDT us Farhad Castillo MD LAB BLOOD ORDERABLES Final Result [facility] [address] [place] [address] * (ABNORMAL) POCT glucose meter (01/08/2025 2:59 AM EDT) POCT Glucose 165(H) 74 - 99 mg/dL 01/08/2025 3:01 AM EDT [facility] Comment:Accuracy of [...] for testing. Comment 01/08/2025 3:01 AM EDT [facility] Clerical Aide ID Flor Glez 01/08/2025 3:01 AM EDT [facility] Device ID [id number] 01/08/2025 3:01 AM EDT [facility] Specimen Type POC Capillary 01/08/2025 3:01 AM EDT [facility] Blood Capillary blood specimen / Unknown 01/08/2025 2:59 AM EDT 01/08/2025 3:01 AM EDT Farhad Castillo MD LAB POINT OF CARE TEST DOCKED DEVICE UNSOLICITED RESULTS Final Result Performing Organization Address City/State/[facility] Co de Phone Number [facility] [address] [place] [address] * (ABNORMAL) POCT glucose meter (01/07/2025 8:31 PM EDT) [facility] POCT Glucose 243(H) 74 - 99 mg/dL [...] for testing. Comment 01/07/2025 8:32 PM EDT [facility] Clerical Aide ID Flor Glez 01/07/2025 8:32 PM EDT [facility] Device ID [id number] 01/07/2025 8:32 PM EDT [facility] Specimen Type POC Capillary 01/07/2025 8:32 PM EDT [facility] Blood Capillary blood specimen / Unknown 01/07/2025 8:31 PM EDT 01/07/2025 8:32 PM EDT Farhad Castillo MD LAB POINT OF CARE TEST DOCKED DEVICE UNSOLICITED RESULTS Final Result Performing Organization Address City/[facility]/ZIP Co de Phone Number [facility] [address] [place] [address] * (ABNORMAL) POCT glucose meter (01/07/2025 5:05 PM EDT) POCT Glucose 251(H) 74 - 99 mg/dL [...] for testing. Comment 01/07/2025 5:09 PM EDT [facility] Clerical Aide ID Myra Pete 01/08/20 5:09 PM EDT [facility] Device ID [id number] 01/07/2025 5:09 PM EDT [facility] Specimen Type POC Capillary 01/07/2025 5:09 PM EDT [facility] Blood Capillary blood specimen / Unknown 01/07/2025 5:05 PM EDT 01/07/2025 5:09 PM EDT Farhad Castillo MD LAB POINT OF CARE TEST DOCKED DEVICE UNSOLICITED RESULTS Final Result Performing Organization Address City/[facility]/ZIP Co de Phone Number [facility] [address] [place] [address] * (ABNORMAL) POCT glucose meter (01/07/2025 12:22 PM EDT) Pathologist [facility] POCT Glucose 300(H) 74 - 99 mg/dL [...] for testing. Comment 01/07/2025 12:26 PM EDT [facility] Clerical Aide ID Myra Pete 01/08/20 12:26 PM EDT [facility] Device ID [id number] 01/07/2025 12:26 PM EDT [facility] Specimen Type POC Capillary 01/07/2025 12:26 PM EDT [facility] Blood Capillary blood specimen / Unknown 01/07/2025 12:22 PM EDT 01/07/2025 12:26 PM EDT us Farhad Castillo MD LAB POINT OF CARE TEST DOCKED DEVICE UNSOLICITED RESULTS Final Result Performing Organization Address City/[facility] Co de Phone Number [facility] [address] [place] [address] * (ABNORMAL) POCT glucose meter (01/07/2025 5:19 AM EDT) [facility] Signature POCT Glucose 274(H) 74 - 99 mg/dL 01/07/2025 5:21 AM EDT [facility] Comment:Accuracy of [...] Comment 01/07/2025 5:21 AM EDT [facility] Clerical Aide ID Bere Wheeler 025 5:21 AM EDT [facility] Device ID [id number] 01/07/2025 5:21 AM EDT [facility] Specimen Type POC Capillary 01/07/2025 5:21 AM EDT [facility] Blood Capillary blood specimen / Unknown 01/07/2025 5:19 AM EDT 01/07/2025 5:21 AM EDT us Farhad Castillo MD LAB POINT OF CARE TEST DOCKED DEVICE UNSOLICITED RESULTS Final Result Performing Organization Address City/[facility]/ZIP Co de Phone Number [facility] [address] [place] [address] * Phosphorus (01/07/2025 3:26 AM EDT) Phosphorus, Plasma 3.5 2.5 - 4.5 mg/dL 01/07/2025 4:18 AM EDT [facility] Blood Venous blood specimen / Unknown Venipuncture / Unknown 01/07/2025 3:26 AM EDT 01/07/2025 3:50 AM EDT us Farhad Castillo MD LAB BLOOD ORDERABLES Final Result [facility] [address] [place] [address] * Magnesium (01/07/2025 3:26 AM EDT) Pathologist [facility] Magnesium, Plasma 1.9 1.9 - 2.4 mg/dL 01/07/2025 4:18 AM EDT [facility] Blood Venous blood specimen / Unknown Venipuncture / Unknown 01/07/2025 3:26 AM EDT 01/07/2025 3:50 AM EDT us Farhad Castillo MD LAB BLOOD ORDERABLES Final Result [facility] [address] [place] [address] * (ABNORMAL) Comprehensive metabolic panel (01/07/2025 3:26 AM EDT) [facility] Glucose, Plasma 312(H) 74 - 99 mg/dL 01/07/2025 4:18 AM EDT [facility] BUN, Plasma 20 8 - 23 mg/dL 01/07/2025 4:18 AM EDT [facility] Creatinine, Plasma 0.93 0.70 - 1.20 mg/dL 01/07/2025 4:18 AM EDT [facility] BUN/Creatinine Ratio 22 01/07/2025 4:18 AM EDT [facility] Sodium, Plasma 137 136 - 145 mmol/L 01/07/2025 4:18 AM EDT [facility] Potassium, Plasma 4.9 3.6 - 4.9 mmol/L 01/07/2025 4:18 AM EDT [facility] Chloride, Plasma 104 97 - 107 mmol/L 01/07/2025 4:18 AM EDT [facility] CO2, Plasma 19(L) 22 - 29 mmol/L 01/07/2025 4:18 AM EDT [facility] Anion Gap 14 6 - 16 mmol/L 01/07/2025 4:18 AM EDT [facility] Total Calcium, Plasma 8.5(L) 8.9 - 10.2 mg/dL 01/07/2025 4:18 AM EDT [facility] Total Protein 6.2(L) 6.3 - 7.9 g/dL 01/07/2025 4:18 AM EDT [facility] Albumin, Plasma 3.3(L) 3.5 - 5.2 g/dL 01/07/2025 4:18 AM EDT [facility] AST, Plasma 284(H) 10 - 50 U/L 01/07/2025 4:18 AM EDT [facility] ALT, Plasma 125(H) 10 - 50 U/L 01/07/2025 4:18 AM EDT [facility] Alkaline Phosphatase, Plasma 69 40 - 115 U/L 01/07/2025 4:18 AM EDT [facility] Total Bilirubin, Plasma 0.8 0.2 - 1.1 mg/dL 01/07/2025 4:18 AM EDT [facility] eGFRcr 94.0 mL/min/1.7 3m*2 01/07/2025 4:18 AM EDT [facility] Comment:Reported eGFRcr in m L/min/1.73m2 is based the CKD-EPI 2020 equation that does not use a race coefficient. Blood Venous blood specimen / Unknown Venipuncture / Unknown 01/07/2025 3:26 AM EDT 01/07/2025 3:50 AM EDT us Farhad Castillo MD LAB BLOOD ORDERABLES Final Result [facility] [address] [place] [address] * (ABNORMAL) CBC W/O Differential (01/07/2025 3:26 AM EDT) WBC Count 18.29(H) 3.70 - 10.30 10*3/uL LAB HEMATOLOGY METHOD 01/07/2025 3:58 AM EDT [facility] RBC Count 4.42(L) 4.60 - 6.10 10*6/uL LAB HEMATOLOGY METHOD 01/07/2025 3:58 AM EDT [facility] HGB 13.1(L) 13.7 - 17.5 g/dL LAB HEMATOLOGY METHOD 01/07/2025 3:58 AM EDT [facility] HCT 40.0 40.0 - 51.0 % LAB HEMATOLOGY METHOD 01/07/2025 3:58 AM EDT [facility] Platelet Count 284 155 - 369 10*3/uL LAB HEMATOLOGY METHOD 01/07/2025 3:58 AM EDT [facility] MCV 91 79 - 98 fL LAB HEMATOLOGY METHOD 01/07/2025 3:58 AM EDT [facility] MCH 29.6 26.0 - 32.0 pg LAB HEMATOLOGY METHOD 01/07/2025 3:58 AM EDT [facility] MCHC 32.8 30.7 - 35.5 g/dL LAB HEMATOLOGY METHOD 01/07/2025 3:58 AM EDT [facility] RDW 13.5 11.5 - 14.5 % LAB HEMATOLOGY METHOD 01/07/2025 3:58 AM EDT [facility] MPV 9.2 8.8 - 12.5 fL LAB HEMATOLOGY METHOD 01/07/2025 3:58 AM EDT [facility] nRBC 0.0 <=0.0 per 100 WBCs LAB HEMATOLOGY METHOD 01/07/2025 3:58 AM EDT [facility] Blood Venous blood specimen / Unknown Venipuncture / Unknown 01/07/2025 3:26 AM EDT 01/07/2025 3:50 AM EDT us Farhad Castillo MD LAB BLOOD ORDERABLES Final Result [facility] [address] [place] [address] * (ABNORMAL) POCT glucose meter (01/06/2025 11:31 PM EDT) Pathologist [facility] POCT Glucose 293(H) 74 - 99 mg/dL 01/06/2025 11:33 PM EDT [facility] Comment:Accuracy of [...] Comment 01/06/2025 11:33 PM EDT [facility] Clerical Aide ID Bere Wheeler [id number] 11:33 PM EDT [facility] Device ID [id number] 01/06/2025 11:33 PM EDT [facility] Specimen Type POC Capillary 01/06/2025 11:33 PM EDT [facility] Blood Capillary blood specimen / Unknown 01/06/2025 11:31 PM EDT 01/06/2025 11:33 PM EDT Farhad Castillo MD LAB POINT OF CARE TEST DOCKED DEVICE UNSOLICITED RESULTS Final Result [facility] [address] [place] [address] * (ABNORMAL) Blood gas panel, arterial (01/06/2025 5:03 PM EDT) [facility] pH, Arterial 7.35 7.31 - 7.42 LAB HEMATOLOGY METHOD 01/06/2025 5:09 PM EDT [facility] pCO2, Arterial 40 32 - 45 mmHg LAB HEMATOLOGY METHOD 01/06/2025 5:09 PM EDT [facility] pO2, Arterial 109 >80 mmHg LAB HEMATOLOGY METHOD 01/06/2025 5:09 PM EDT [facility] SO2, Measured, Arterial 97 94 - 98 % LAB HEMATOLOGY METHOD 01/06/2025 5:09 PM EDT [facility] Base Excess, Arterial -3.1(L) -2.0 - 3.0 mmol/L LAB HEMATOLOGY METHOD 01/06/2025 5:09 PM EDT [facility] Bicarbonate, Calculated, Arterial 22 22 - 26 mmol/L LAB HEMATOLOGY METHOD 01/06/2025 5:09 PM EDT [facility] Hematocrit, Whole Blood 39.4(L) 40.0 - 51.0 % LAB HEMATOLOGY METHOD 01/06/2025 5:09 PM EDT [facility] Sodium, Whole Blood 139 136 - 145 mmol/L LAB HEMATOLOGY METHOD 01/06/2025 5:09 PM EDT [facility] Potassium, Whole Blood 5.0(H) 3.6 - 4.9 mmol/L LAB HEMATOLOGY METHOD 01/06/2025 5:09 PM EDT [facility] Chloride, Whole Blood 108(H) 97 - 107 mmol/L LAB HEMATOLOGY METHOD 01/06/2025 5:09 PM EDT [facility] Glucose, Whole Blood 227(H) 74 - 99 mg/dL LAB HEMATOLOGY METHOD 01/06/2025 5:09 PM EDT [facility] Ionized Calcium, Whole Blood 4.6 4.6 - 5.1 mg/dL LAB HEMATOLOGY METHOD 01/06/2025 5:09 PM EDT [facility] Lactate, Arterial, Whole Blood 1.9(H) 0.5 - 1.6 mmol/L LAB HEMATOLOGY METHOD 01/06/2025 5:09 PM EDT [facility] Blood Arterial blood specimen / Unknown Arterial Puncture / Unknown 01/06/2025 5:03 PM EDT 01/06/2025 5:08 PM EDT us Cheng Peña MD LAB BLOOD ORDERABLES Final Res ult [facility] [address] [place] [address] * (ABNORMAL) POCT glucose meter (01/06/2025 4:40 PM EDT) POCT Glucose 186(H) 74 - 99 mg/dL 01/06/2025 4:42 PM EDT [facility] Comment:Accuracy of [...] Comment 01/06/2025 4:42 PM EDT [facility] Clerical Aide ID Judith Murphy 01/06/2025 4:42 PM EDT [facility] Device ID [id number] 01/06/2025 4:42 PM EDT [facility] Specimen Type POC Capillary 01/06/2025 4:42 PM EDT [facility] Blood Capillary blood specimen / Unknown 01/06/2025 4:40 PM EDT 01/06/2025 4:42 PM EDT Farhad Castillo MD LAB POINT OF CARE TEST DOCKED DEVICE UNSOLICITED RESULTS Final Result [facility] [address] [place] [address] * (ABNORMAL) Comprehensive metabolic panel (01/06/2025 4:26 PM EDT) Glucose, Plasma 187(H) 74 - 99 mg/dL 01/06/2025 4:26 PM EDT [facility] BUN, Plasma 21 8 - 23 mg/dL 01/06/2025 4:26 PM EDT [facility] Creatinine, Plasma 0.92 0.70 - 1.20 mg/dL 01/06/2025 4:26 PM EDT [facility] BUN/Creatinine Ratio 23 01/06/2025 4:26 PM EDT [facility] Sodium, Plasma 138 136 - 145 mmol/L 01/06/2025 4:26 PM EDT [facility] Potassium, Plasma 5.5(H) 3.6 - 4.9 mmol/L 01/06/2025 4:26 PM EDT [facility] Chloride, Plasma 105 97 - 107 mmol/L 01/06/2025 4:26 PM EDT [facility] CO2, Plasma 21(L) 22 - 29 mmol/L 01/06/2025 4:26 PM EDT [facility] Anion Gap 12 6 - 16 mmol/L 01/06/2025 4:26 PM EDT [facility] Total Calcium, Plasma 8.4(L) 8.9 - 10.2 mg/dL 01/06/2025 4:26 PM EDT [facility] Total Protein 5.9(L) 6.3 - 7.9 g/dL 01/06/2025 4:26 PM EDT [facility] Albumin, Plasma 3.4(L) 3.5 - 5.2 g/dL 01/06/2025 4:26 PM EDT [facility] AST, Plasma 306(H) 10 - 50 U/L 01/06/2025 4:26 PM EDT [facility] ALT, Plasma 101(H) 10 - 50 U/L 01/06/2025 4:26 PM EDT [facility] Alkaline Phosphatase, Plasma 73 40 - 115 U/L 01/06/2025 4:26 PM EDT [facility] Total Bilirubin, Plasma 0.7 0.2 - 1.1 mg/dL 01/06/2025 4:26 PM EDT [facility] eGFRcr 95.2 mL/min/1.7 3m*2 01/06/2025 4:26 PM EDT [facility] Comment:Reported eGFRcr in m L/min/1.73m2 is based the CKD-EPI 2020 equation that does not use a race coefficient. Blood Venous blood specimen / Unknown 01/06/2025 3:55 PM EDT Andres Rojas [facility] BLOOD ORDERABLES Final Result [facility] [address] [place] [address] * (ABNORMAL) CBC (01/06/2025 4:16 PM EDT) WBC Count 16.98(H) 3.70 - 10.30 10*3/uL LAB HEMATOLOGY METHOD 01/06/2025 4:16 PM EDT [facility] RBC Count 4.22(L) 4.60 - 6.10 10*6/uL LAB HEMATOLOGY METHOD 01/06/2025 4:16 PM EDT [facility] HGB 12.6(L) 13.7 - 17.5 g/dL LAB HEMATOLOGY METHOD 01/06/2025 4:16 PM EDT [facility] HCT 38.9(L) 40.0 - 51.0 % LAB HEMATOLOGY METHOD 01/06/2025 4:16 PM EDT [facility] Platelet Count 307 155 - 369 10*3/uL LAB HEMATOLOGY METHOD 01/06/2025 4:16 PM EDT [facility] MCV 92 79 - 98 fL LAB HEMATOLOGY METHOD 01/06/2025 4:16 PM EDT [facility] MCH 29.9 26.0 - 32.0 pg LAB HEMATOLOGY METHOD 01/06/2025 4:16 PM EDT [facility] MCHC 32.4 30.7 - 35.5 g/dL LAB HEMATOLOGY METHOD 01/06/2025 4:16 PM EDT [facility] RDW 13.4 11.5 - 14.5 % LAB HEMATOLOGY METHOD 01/06/2025 4:16 PM EDT [facility] MPV 9.4 8.8 - 12.5 fL LAB HEMATOLOGY METHOD 01/06/2025 4:16 PM EDT [facility] nRBC 0.0 <=0.0 per 100 WBCs LAB HEMATOLOGY METHOD 01/06/2025 4:16 PM EDT [facility] Blood Venous blood specimen / Unknown 01/06/2025 4:06 PM EDT us Andres Rojas [facility] BLOOD ORDERABLES Final Result [facility] [address] [place] [address] * (ABNORMAL) Blood gas, arterial (01/06/2025 3:36 PM EDT) pH, Arterial 7.32 7.31 - 7.42 LAB HEMATOLOGY METHOD 01/06/2025 3:48 PM EDT [facility] pCO2, Arterial 45 32 - 45 mmHg LAB HEMATOLOGY METHOD 01/06/2025 3:48 PM EDT [facility] pO2, Arterial 178 >80 mmHg LAB HEMATOLOGY METHOD 01/06/2025 3:48 PM EDT [facility] SO2, Measured, Arterial 98 94 - 98 % LAB HEMATOLOGY METHOD 01/06/2025 3:48 PM EDT [facility] Base Excess, Arterial -3.2(L) -2.0 - 3.0 mmol/L LAB HEMATOLOGY METHOD 01/06/2025 3:48 PM EDT [facility] Bicarbonate, Calculated, Arterial 23 22 - 26 mmol/L LAB HEMATOLOGY METHOD 01/06/2025 3:48 PM EDT [facility] Hematocrit, Whole Blood 38.8(L) 40.0 - 51.0 % LAB HEMATOLOGY METHOD 01/06/2025 3:48 PM EDT [facility] Sodium, Whole Blood 138 136 - 145 mmol/L LAB HEMATOLOGY METHOD 01/06/2025 3:48 PM EDT [facility] Potassium, Whole Blood 5.1(H) 3.6 - 4.9 mmol/L LAB HEMATOLOGY METHOD 01/06/2025 3:48 PM EDT [facility] Chloride, Whole Blood 109(H) 97 - 107 mmol/L LAB HEMATOLOGY METHOD 01/06/2025 3:48 PM EDT [facility] Glucose, Whole Blood 189(H) 74 - 99 mg/dL LAB HEMATOLOGY METHOD 01/06/2025 3:48 PM EDT [facility] Ionized Calcium, Whole Blood 4.5(L) 4.6 - 5.1 mg/dL LAB HEMATOLOGY METHOD 01/06/2025 3:48 PM EDT [facility] Lactate, Arterial, Whole Blood 1.8(H) 0.5 - 1.6 mmol/L LAB HEMATOLOGY METHOD 01/06/2025 3:48 PM EDT [facility] Blood Arterial blood specimen / Unknown Arterial Puncture / Unknown 01/06/2025 3:36 PM EDT 01/06/2025 3:47 PM EDT us Andres Rojas [employer] LAB BLOOD ORDERABLES Final Result [facility] [address] [place] [address] * (ABNORMAL) Blood gas, arterial (01/06/2025 1:27 PM EDT) pH, Arterial 7.35 7.31 - 7.42 LAB HEMATOLOGY METHOD 01/06/2025 1:32 PM EDT [facility] pCO2, Arterial 40 32 - 45 mmHg LAB HEMATOLOGY METHOD 01/06/2025 1:32 PM EDT [facility] pO2, Arterial 189 >80 mmHg LAB HEMATOLOGY METHOD 01/06/2025 1:32 PM EDT [facility] SO2, Measured, Arterial 98 94 - 98 % LAB HEMATOLOGY METHOD 01/06/2025 1:32 PM EDT [facility] Base Excess, Arterial -3.3(L) -2.0 - 3.0 mmol/L LAB HEMATOLOGY METHOD 01/06/2025 1:32 PM EDT [facility] Bicarbonate, Calculated, Arterial 22 22 - 26 mmol/L LAB HEMATOLOGY METHOD 01/06/2025 1:32 PM EDT [facility] Hematocrit, Whole Blood 37.0(L) 40.0 - 51.0 % LAB HEMATOLOGY METHOD 01/06/2025 1:32 PM EDT [facility] Sodium, Whole Blood 138 136 - 145 mmol/L LAB HEMATOLOGY METHOD 01/06/2025 1:32 PM EDT [facility] Potassium, Whole Blood 4.4 3.6 - 4.9 mmol/L LAB HEMATOLOGY METHOD 01/06/2025 1:32 PM EDT [facility] Chloride, Whole Blood 111(H) 97 - 107 mmol/L LAB HEMATOLOGY METHOD 01/06/2025 1:32 PM EDT [facility] Glucose, Whole Blood 184(H) 74 - 99 mg/dL LAB HEMATOLOGY METHOD 01/06/2025 1:32 PM EDT [facility] Ionized Calcium, Whole Blood 4.4(L) 4.6 - 5.1 mg/dL LAB HEMATOLOGY METHOD 01/06/2025 1:32 PM EDT [facility] Lactate, Arterial, Whole Blood 1.6 0.5 - 1.6 mmol/L LAB HEMATOLOGY METHOD 01/06/2025 1:32 PM EDT [facility] Blood Arterial blood specimen / Unknown Arterial Puncture / Unknown 01/06/2025 1:27 PM EDT 01/06/2025 1:31 PM EDT Andres Rojas [facility] BLOOD ORDERABLES Final Result [facility] [address] [place] [address] * Surgical Pathology Exam (01/06/2025 12:59 PM EDT) Case Report Surgical Pathology Case: [id number] Authorizing Provider: Heidi March MD Collected: 01/06/2025 1213 Ordering Location: [facility] A OPERATING ROOM Received: 01/06/2025 1618 Pathologist: Paulo Morrison MD Specimens: A) - Other (specify site), Partial Omentectomy B) - Other (specify site), Segment 8 partial hepatectomy C) - Gallbladder, gallbladder 01/11/2025 10:28 AM EDT [facility] Final Diagnosis A. OMENTUM, PARTIAL OMENTECTOMY: [...] NEGATIVE FOR TUMOR 01/11/2025 10:28 AM EDT [facility] at 1028 EDT Comment The background liver parenchyma harbors features of chronic liver disease, namely steatohepatitis. Further clinical workup may be indicated for appropriate classification and staging. 01/11/2025 10:28 AM EDT [facility] Clinical Information Metastatic colon cancer to liver (CMS/HCC) [C18.9, C78.7] 01/11/2025 10:28 AM EDT [facility] Gross Description A. PARTIAL OMENTECTOMY [...] cut surface is martino-yellow and lobulated. The in store representative section of specimen are submitted as: A1: Composite Bond Worker section of nodule A2-A3: Composite Bond Worker section of specimen Cold Time: 4h 05m [...] nodule. No additional nodule or mass identified. Composite Bond Worker sectioned of specimen are submitted as: B1: [...] grossly identified. Cystic duct margin (en face), in store representative sections of gallbladder neck, and body are submitted in cassette C1. Cold Time: 2h 32m YAHIR Toney 01/11/2025 10:28 AM EDT [facility] Note: A resident was involved in the service. I attest I examined the relevant preparations for the specimens and confirmed the diagnosis or interpretation. 01/11/2025 10:28 AM EDT [facility] Tissue Topography unknown / Unknown [...] 12:13 PM EDT 01/06/2025 4:18 PM EDT Farhad Castillo MD LAB PATHOLOGY ORDERABLES F inal Result [facility] [address] [place] [address] * Surgical Pathology Exam (01/06/2025 12:13 PM EDT) Case Report Surgical Pathology Case: [id number] Authorizing Provider: Heidi March MD Collected: 01/06/2025 1213 Ordering Location: [facility] A OPERATING ROOM Received: 01/06/2025 1618 Pathologist: Paulo Morrison MD Specimens: A) - Other (specify site), Partial Omentectomy B) - Other (specify site), Segment 8 partial hepatectomy C) - Gallbladder, gallbladder 01/11/2025 10:28 AM EDT [facility] Final Diagnosis A. OMENTUM, PARTIAL [...] NEGATIVE FOR TUMOR 01/11/2025 10:28 AM EDT [facility] at 1028 EDT Comment The background liver parenchyma harbors features of chronic liver disease, namely steatohepatitis. Further clinical workup may be indicated for appropriate classification and staging. 01/11/2025 10:28 AM EDT [facility] Clinical Information Metastatic colon cancer to liver (CMS/HCC) [C18.9, C78.7] 01/11/2025 10:28 AM EDT [facility] Gross Description A. PARTIAL OMENTECTOMY [...] cut surface is martino-yellow and lobulated. The in store representative section of specimen are submitted as: A1: Composite Bond Worker section of nodule A2-A3: Composite Bond Worker section of specimen Cold Time: 4h 05m [...] nodule. No additional nodule or mass identified. Composite Bond Worker sectioned of specimen are submitted as: B1: [...] grossly identified. Cystic duct margin (en face), in store representative sections of gallbladder neck, and body are submitted in cassette C1. Cold Time: 2h 32m YAHIR Toney 01/11/2025 10:28 AM EDT [facility] Note: A resident was involved in the service. I attest I examined the relevant preparations for the specimens and confirmed the diagnosis or interpretation. 01/11/2025 10:28 AM EDT [facility] Tissue Topography unknown / Unknown [...] MD LAB PATHOLOGY ORDERABLES Fin al Result [facility] [address] [place] [address] * (ABNORMAL) POCT glucose meter (01/06/2025 9:37 AM EDT) POCT Glucose 149(H) 74 - 99 mg/dL 01/06/2025 9:38 AM EDT [facility] Comment:Accuracy of a [...] Comment 01/06/2025 9:38 AM EDT [facility] Clerical Aide ID Luiza Ramesh 01/06/2025 9:38 AM EDT [facility] Device ID [id number] 01/06/2025 9:38 AM EDT [facility] Specimen Type POC Capillary 01/06/2025 9:38 AM EDT [facility] Blood Capillary blood specimen / Unknown 01/06/2025 9:37 AM EDT 01/06/2025 9:38 AM EDT us Farhad Castillo MD LAB POINT OF CARE TEST DOCKED DEVICE UNSOLICITED RESULTS Final Result [facility] [address] [place] [address] documented in this encounter Visit Diagnoses Diagnosis Metastatic colon cancer to liver- Primary Metastatic colon cancer to liver Incisional hernia without obstruction or gangrene documented in this encounter Admitting Diagnoses Diagnosis [...] Given 01/12/2025 8:45 AM EDT 12.5 mg cyclobenzaprine (Flexeril) tablet 5 mg 5 mg, [...] PRN low blood sugar BG =/<50 mg/dL enoxaparin (Lovenox) syringe 40 mg 40 mg, Subcutaneous, Daily, First dose on Sat01/11/25 at 1700, Until Discontinued, Routine Given 01/13/2025 8:10 AM EDT 40 mg Left Upper Arm (Back ) Given 01/12/2025 8:44 AM EDT 40 mg [...] 12:50 AM EDT 15 grams of glucose insulin glargine-yfgn 100 UNIT/ML injection 10 Units 10 Units, Subcutaneous, Every 24 hours, First dose (after last modification) on Sat01/11/25 at 1800, Until Discontinued, Routine Given 01/12/2025 5:26 PM EDT 10 Units Left Upper Arm (Back) Given 01/11/2025 6:29 PM EDT 10 Units Le ft Lower Abdomen insulin lispro [...] PM EDT 2 Units Left Upper Arm (Back) ondansetron (Zofran) 4 MG/5ML solution 4 mg [...] Given 01/11/2025 10:20 AM EDT 40 mg documented in this encounter Active and Recently Administered Medications Times are shown in EDT. Scheduled Medication Order 01/11/2025 01/12/2025 01/13/2025 carvedilol (Coreg) tablet 12.5 mg 12.5 mg, Oral, 2 times daily, First dose on Sat01/11/25 at 1200, Until Discontinued, Routine 1234 (Given - Provider: Flor Abarca RN)2141 (Given - Provider: Bandar Bettencourt) 0845 (Given - Provider: Katelynn Lowery, JAN)203 (Given - Provider: Tereza Pham RN) 0810 (Given - Provider: Katelynn Lowery RN) cyclobenzaprine (Flexeril) tablet 5 mg 5 mg, Oral, 3 times daily, First dose on Sat01/11/25 at 0900, Until Discontinued, Routine 1019 (Given - Provider: Flor Abarca RN)1829 (Given - Provider: Flor Abarca RN)2142 (Given - Provider: Bandar Bettencourt) 0845 (Given - Provider: Katelynn Lowery, JAN)1710 (Given - Provider: Katelynn Lowery, JAN)2033 (Given - Provider: Tereza Pham RN) 0810 (Given - Provider: Katelynn Lowery, JAN) enoxaparin (Lovenox) syringe 40 mg 40 mg, Subcutaneous, Daily, First dose on Sat01/11/25 at 1700, Until Discontinued, Routine 1830 (Given - Provider: Flor Abarca RN) 0844 (Given - Provider: Katelynn Lowery RN) 0810 (Given - Provider: Katelynn Lowery, JAN) heparin (porcine) injection 5,000 Units (CANCELED) 5,000 [...] parameters not met)1229 (Given - Provider: Katelynn Lowery RN)1725 (Given - Provider: Katelynn Lowery RN) 0741 (Not Given - Provider: Katelynn Lowery RN - Reason: Order parameters not met) insulin lispro (Admelog) injection - Correction - Nighttime Dose 0-3 Units, Subcutaneous, 2 times nightly (2100 & 0300), First dose on Sat01/11/25 at 2100, Until Discontinued, Routine 2143 (Not Given - Provider: Bandar Bettencourt - Reason: Order parameters not met) 021 (Not Given - Provider: Bandar Bettencourt - Reason: Order parameters not met)2027 (Not Given - Provider: Tereza Pham RN - Reason: Hold for condition: must add comment - Comment: bs 186) 035 (Not Given - Provider: Tereza Pham, JAN - Reason: Order parameters not met) Insulin Lispro (Admelog, HumaLOG) 100 UNIT/ML injection 2 Units 2 Units, Subcutaneous, 3 times daily with meals, First dose on Sat01/12/25 at 1730, Until Discontinued, Routine 1725 (Given - Provider: Katelynn Lowery RN) 0830 (Canceled Entry - Provider: Automatic Discharge [...] Routine 0608 (New Bag - Provider: Tereza Pham RN) pantoprazole (Protonix) EC tablet 40 mg 40 mg, Oral, Daily, First dose on Sat01/11/25 at 0900, Until Discontinued, Routine 1020 (Given - Provider: Flor Abarca RN) 0845 (Given - Provider: Katelynn Lowery, JAN) 0810 (Given - Provider: Katelynn Lowery, JAN) potassium chloride CR (Klor-Con) ER tablet 40 [...] Abarca RN)1156 (New Bag - Provider: Flor Abarca, RN)1520 (New Bag - Provider: Flor Abarca, RN)1657 (New Bag - Provider: Flor Abarca, RN) [...] sugar, per Hypoglycemia Prevention and Treatment protocol 49 (Given - Provider: Valerie Cheung) ondansetron (Zofran) [...] documented as of this encounter Care Teams Notch Grinder Relationship Specialty Start Date End Date Tayo Jones MD [address] [place] [address] PCP - General 07/14/24 documented as of this encounter
--- OUTSIDE RECORDS SUMMARY | 2025-01-06 10:02 | XMS_ITS | Encounter Summary ---
Author Organization [facility] Address [address] [id number] Care Team Providers Care Stove Mounter Name Role Phone Tayo Jones MD Primary Care Provider [phone] Reason for Visit * Auth/Cert (Routine) Specialty Diagnoses / Procedures Referred By Samia pagan Referred To Contact Diagnoses Metastatic colon cancer to liver Metastatic colon cancer to liver (CMS/HCC) [C18.9, C78.7] Procedures LA RESEC LIVER,PART LOBECTOMY LA RPR AA HERNIA 1ST 3-10 CM REDUCIBLE HEPATECTOMY, PARTIAL REPAIR, HERNIA, EPIGASTRIC Farhad Castillo MD [address] [address] Phone: tel: fax: [facility] [address] [place] [phone] Phone: tel: Referral ID Status Reason Start Date Expiration Date Visits Re quested Visits Authorized [id number] 1 1 Encounter Details Date Type Department Care Team (Late st Contact Info) Description 01/06/2025 11:02 AM EDT Anesthesia Event [facility] [address] [place] [phone] Andres Rojas CRNA [address] [place] [address] Celeste Patton CRNA [address] [place] [address] Anesthesia Record Procedure Summary Procedure Name Responsible Anesthesiologist Anesthesia Start Time Anesthesia Stop Time HEPATECTOMY, PARTIAL, microwave ablation, cholecystectomy Andres Rojas CRNA 01/06/25 1102 01/06/25 1606 Events Date Time [...] 1558 Out of Room 1606 Fidel Dilaudid SENIOR ENGINEERING SPECIALIST ca rtridge given to cross country/track and field coachnichole Salas RN by pharmacy. Dilaudid SENIOR ENGINEERING SPECIALIST cartridge handed off to EDUCATION TRAINERJAN Murphy. 1606 Handoff to Receiving I compl [...] acknowledgement of understanding. 1606 An Stop Meds Name Total propofol (Diprivan) injection 10 mg/mL 2 00 mg rocuronium (ZeMuron) injection 10 mg/mL 200 mg HYDROmorphone PF (Dilaudid) injection 1 mg/mL 0.5 mg sugammadex (Bridion) injection 100 mg/mL 300 mg Lidocaine HCl 100 MG/5ML 100 mg fentaNYL (SUBLIMAZE) 300 mcg HYDROmorphone 1 MG/ML 1 mg cefOXitin (Mefoxin) vial 2 g 6 g bupivacaine 0.125% injection 10.25 mL phenylephrine (Yuriy-Synephrine) prefilled syringe 1 mg/10 mL 750 mcg vasopressin 20 UNIT/ML 2 Units phenylephrine in 0.9% NaCl infusion 100 mcg/mL 3.96 mg lactated Ringer's infusion 1,300 mL sodium chloride 0.9 % infusion 500 mL sodium chloride 0.9 % infusion 187.5 mL electrolyte (Isolyte or Plasma-lyte) IV solution 400 mL * Agents Name O2 * Blood No blood administrations on file. Lines, Drains, and Airways Type Details Placement Removal Wound 07/31/24; 08; N; Y es; Surgical; Open Surg; Abdomen; Left, Upper 07/31/24 0811 by Nayan Patel RN Wound 01/06/25; 1156; N; Y es; Surgical; Open Surg; Abdomen; Mid 01/06/25 1156 by Flaquita Salas RN Peripheral IV Placement Date: 01/06/25; Placement Time: 944; Catheter Size: 18 G; Orientation: Left, Posterior; Location: Hand; Site Prep: Alcohol, Chlorhexidine ; Local Anesth: [place]; Technique: Anatomical landmarks; Inserted by: doc mann; [...] Peripheral IV Placement Date: 01/06/25; Placement Time: 111 (created via procedure documentation); Catheter Size: 16 G; Orientation: Right; Location: Wrist; Insertion Attempts: 1; Removal Date: 01/09/25; Removal Time: 0604; Removal Reason: Infiltrated 01/06/25 1115 by Andres Rojas CRNA 01/09/25 0604 by Marisela Avelar RN Peripheral IV Placement Date: 01/06/25; Placement Time: 1115 (created via procedure documentation); Catheter Size: 18 G; Orientation: Left; Location: Hand; Insertion Attempts: 1; Removal Date: 01/09/25; Removal Time: 0603; Removal Reason: Leaking 01/06/25 1115 by Andres Rojas CRNA 01/09/25 0603 by Marisela Avelar RN Urethral [...] Securement: Taped; Removal Date: 01/06/25; Removal Time: 1752; Removal Reason: Per protocol 01/06/25 1124 by [...] any time in the past 12 m [facility], were you homeless or living in a detention (including now)? No 01/07/2025 [facility] Utilities Answer Date Recorded In the [...] 6. Suicidal Behavior (Lifetime) No 9:31 AM EDT Maira Carney RN documented as of this encounter Miscellaneous Notes * Anesthesia Postprocedure Evaluation - Andres Rojas CRNA - 01/06/2025 4:11 PM EDT Patient: Nayan Womack Anesthesia Type: general Vitals Value Taken Time BP 149/72 01/06/25 16:05 Temp 37.5 ??C (99.5 ??F) 01/06/25 16:10 Pulse 73 01/06/25 16:10 Resp 20 01/06/25 16:10 SpO2 97 % 01/06/25 16:10 Vitals shown include unfiled device data. Anesthesia Post Evaluation Patient location during evaluation: PACU Patient participation: complete - patient cannot participate Level of consciousness: sedated Airway patency: supraglottic device Cardiovascular status: acceptable and hemodynamically stable Respiratory status: acceptable, blow-by oxygen, face mask and oral airway Hydration status: acceptable Nausea/Vomiting: No No notable events documented. * Anesthesia Procedure Notes - Andres Rojas CRNA - 01/06/2025 11:53 AM EDT Associated Order(s): Airway Airway Date/Time: 01/06/2025 11:13 AM Reason: elective Airway not difficult General Information and Staff Patient location during procedure: OR MUFFLE WORKER: Andres Rojas CRNA Other anesthesia staff: Bina Bennett Performed: Other Anesthesia Staff Patient Condition Indications for airway management: anesthesia Patient position: sniffing Final Airway Details Final airway type: endotracheal airway Successful airway: ETT Cuffed: yes Successful intubation technique: video laryngoscopy Adjuncts used in placement: intubating stylet Endotracheal tube insertion site: oral Cormack-Lehane Classification: grade I - full view of glottis Placement verified by: chest auscultation and capnometry Measured from: lips Additional Comments IV induction, easy mask with oral airway and two hand mask technique. DL with hyper 4 AMBU, grade 1view, easy intubation. Atraumatic. No change to dentition. * Anesthesia Procedure Notes - Andres Rojas CRNA - 01/06/2025 11:52 AM EDT Associated Order(s): Peripheral IV Peripheral IV Date/Time: 01/06/2025 11:15 AM Placement Needle size: 18 G Location: hand Site prep: alcohol Attempts: 1 * Anesthesia Procedure Notes - Andres Rojas CRNA - 01/06/2025 11:51 AM EDT Associated Order(s): Peripheral IV Peripheral IV Date/Time: 01/06/2025 11:15 AM Placement Needle size: 16 G Location: wrist Site prep: alcohol Attempts: 1 * Anesthesia Procedure Notes - Kathe Peralta MD - 01/06/2025 11:39 AM EDT Associated Order(s): Arterial Line Arterial Line: Date/Time: 01/06/2025 11:24 AM An arterial line was placed. Procedure performed using surface landmarks in the OR for the following indication(s): continuous blood pressure monitoring and blood sampling needed. A 20 gauge (size), 1 and 3/4 inch (length), Arrow (type) catheter was placed into the Right radial artery and secured by tape. Seldinger technique used Additional notes: Smooth and uncomplicated placement of arterial line using aseptic sterile technique. No difficulty or complications. Distal capillary refill unchanged following procedure, confirmed via pulse-ox waveform. I placed the arterial line personally. Staffing Performed: Anesthesiologist Anesthesiologist: Kathe Peralta MD * Anesthesia Procedure Notes - Iban Emery MD - 01/06/2025 10:32 AM EDT Associated Order(s): Epidural Block Epidural Block Patient location during procedure: pre-op Start time: 01/06/2025 10:08 AM End time: 01/06/2025 10:28 AM Reason for block: post-op pain management Block is at surgeon's request Staffing Performed: Resident Anesthesiologist: Cheng Peña MD Resident: Cathryn Garcias MD Preanesthetic Checklist Completed: patient identified, IV checked, site marked, risks and benefits discussed, surgical consent, monitors and equipment checked, pre-op evaluation and timeout performed Block Placement Patient position: sitting Prep: ChloraPrep and site prepped and draped Patient monitoring: heart rate and continuous pulse ox Approach: midline Location: T8-T9 Needle Needle type: Tuohy Needle gauge: 17 G Needle length: 3.5 in Needle insertion depth (cm): 6.5 Catheter size: 19 G Catheter at skin depth (cm): 12 Test dose: negative and lidocaine 1.5% with epinephrine 1-to-200,000 Medications Administered: fentaNYL (SUBLIMAZE) - Intravenous 50 mcg - 01/06/2025 10:08:00 AM Additional Notes After identification of superficial landmarks the skin was prepped with Dura- Prep. Sterile drape placed. Skin anesthetized with 1% lidocaine. Tuohy needle then inserted and directed medially and cephalad with EMANUEL at 6.5 cm. Catheter threaded easily and inserted 5 cm into the space. Secured at the skin with lock- it device, tegaderm, tape. Tested with 1.5% lidocaine with 1:200k epi 2 cc negative for IV or SA dose. Cosigned by Cheng Peña MD at 01/06/2025 11:23 AM EDT Associated attestation - Cheng Peña MD - 01/06/2025 11:23 AM EDT I was present during all critical and bolanos portions of the procedure(s) and immediately available [facility] services the entire duration. See resident note for details. * Anesthesia Preprocedure Evaluation - Kathe Peralta MD - 01/06/2025 8:38 AM EDT Images from the original note were not included. HPI Nayan Womack is a 59 y.o. male who presents with Pre-op Diagnosis * Metastatic colon cancer to liver (CMS/HCC) [C18.9, C78.7] now scheduled for HEPATECTOMY, PARTIAL (N/A), REPAIR, HERNIA, EPIGASTRIC (N/A) with Farhad Castillo MD and Dr. March on 01/06/2025 in [facility]. Past Medical History[1] Family History[2] Social History[3] denies tobacco, etoh, illicit drugs SURGICAL HISTORY: Surgical History[4]appendix/colon, port placement Allergies[5] NKDA MEDICATIONS: Current Medications[6] ROS Anesthesia: Date of [...] CAD, CHF, dyspnea, dysrhythmias, pacemaker or past IA. hypertension: is well controlled. Exercise tolerance is 2 flights of stairs. Does nothave chest pain. Cardio additional comments: Stress test 12/2024 Normal . Respiratory: Negative respiratory ROS.Does not have home oxygen. Patient has no dyspnea.no asthma: no COPD: Has not had an upper respiratory infection in last 30 days. Has not had pneumonia in the last 30 days, RSV in the last 30 days or COVID in the last 30 days. HEENT: Negative HEENT ROS.Does not have chipped teeth, loose teeth or missing teeth. Neurological: Negative neuro ROS. no seizures: Did not have a cerebrovascular accident. Musculoskeletal: Musc/Skel/Integ additional comments: Lt foot OM s/p toe amputation H/O right calf abscess s/p I&D, washout and closure Lt lateral foot by 5th toe ulcer very small per nurse, getting betadine Gastrointestinal: Does not have GERD.GI malignancy (metastatic colon cancer 10/2022 s/p right hemicolectomy/chemo c/b incisional hernia with mets to liver s/p chemo) and hernia. Does not have cirrhosis. obese. GI/ additional comments: Liver mets and primary colon cancer Genitourinary: Negative ROS. Does not have chronic renal disease. Hematological/Lymphatic: [...] (H) 10/08/2024 INR 1.1 07/23/2024 Visit Vitals Smoking Status Never 12/29/2024 2:13 PM Vitals Weight (kg) 110.224 kg BMI 35.63 kg/m2 BSA (m2) 2.32 m2 Physical Exam Airway Mallampati: III Mouth opening: normal TM distance: >3 FB Neck ROM: full Cardiovascular Rhythm: regular Rate: normal Dental - normal exam Pulmonary Breath sounds clear to auscultation Neurological Oriented: normal to time, normal to place and normal to person Skin Musculoskeletal Extremities Other findings: Full acevedo Anesthesia Plan ASA 3 Plan was reviewed with: MUFFLE WORKER Anesthesia technique(s) discussed with the patient/family: general Anesthesia plan agreed upon was: general Comment: RAYO phone screen with patient's nurse, Keya, at the custodial. Anesthetic plan and risks discussed with patient. Use of blood products discussed with patient who. Kathe Peralta MD [1] Past Medical History: Diagnosis Date [...] to diabetes [5] No Known Allergies [6] No current facility-administered medications for this encounter. Current Outpatient Medications: acetaminophen, Take 1 tablet by mouth every 6 hours as needed for pain. (Patient not taking: Reported on 12/24/2024) amLODIPine, Take 1 tablet by mouth in the morning. (Patient not taking: Reported on 12/24/2024) capecitabine, Take 3 tablets (1,500 mg total) by mouth 2 (two) times a day. Swallow whole with water. Do not crush or cut. (Patient not taking: Reported on 12/24/2024) carvedilol, Take by mouth in the morning and in the evening. Take with meals. ferrous sulfate, insulin lispro, Inject 10 Units under the skin 3 times a day with meals. Lantus SoloStar, Inject 35 Units under the skin nightly. lisinopril, Take 1 tablet by mouth daily. lisinopril-hydroCHLOROthiazide, Take 1 tablet by mouth daily. (Patient not taking: Reported on 12/24/2024) loperamide, Take by mouth 3 times a day as needed. magnesium oxide, Take 1 tablet by mouth 2 times a day. multivitamin, Take 1 tablet by mouth daily. mupirocin, Apply topically 2 times a day. Impact Advanced Recovery, Drink 1 178ml carton 2 per day X 5 days before surgery ondansetron, potassium chloride CR, Take 1 tablet by mouth 2 times a day. Quercetin, Take 2 tablets by mouth daily. (Patient not taking: Reported on 12/24/2024) sodium bicarbonate, Take 1 tablet by mouth 2 times a day. spironolactone, Take 1 tablet by mouth daily. documented in this encounter Plan of Treatment Upcoming Encounters Date Type Department Care Team (Late st Contact Info) Description 05/13/2025 7:30 AM EST Appointment [facility] [address] [place] [phone] 05/13/2025 10:15 AM EST Office Visit [facility] Mult[facility] [address] [place] [address] Farhad Castillo MD [address] [phone] documented as of this encounter Goals Goal Patient Goal Type Associated Problems Recent Progress Patient-Stated? Author Autogenera inessa Goal Care Plan Autogenerated Problem No Farhad Castillo MD documented as of this encounter Procedures Procedure Name Priority Date/Time Associated Diagnosis Comments ANESTHESIA ARTERIAL LINE PLACEMENT Routine 01/06/2025 11:24 AM EDT ANESTHESIA PERIPHERAL IV PLACEMENT Routine 01/06/2025 11:15 AM EDT ANESTHESIA PERIPHERAL IV PLACEMENT Routine 01/06/2025 11:15 AM EDT PB ANESTHESIA PLACEHOLDER Routine 01/06/2025 11:13 AM EDT LA AN ELECTIVE ENDOTRACHEAL AIRWAY Routine 01/06/2025 11:13 AM EDT PB ANESTHESIA NON-TIMED PROCEDURE PLACEHOLDER Routine 01/06/2025 10:08 AM EDT documented in this encounter Results * PB ANESTHESIA NON-TIMED PROCEDURE PLACEHOLDER (01/06/2025 11:24 AM EDT) Narrative Kathe Peralta MD - 01/06/2025 11:24 AM EDT Kathe Peralta MD 01/06/2025 11:39 AM Arterial Line: Date/Time: 01/06/2025 11:24 AM An arterial line was placed. Procedure performed using surface landmarks in the OR for the following indication(s): continuous blood pressure monitoring and blood sampling needed. A 20 gauge (size), 1 and 3/4 inch (length), Arrow (type) catheter was placed into the Right radial artery and secured by tape. Seldinger technique used Additional notes: Smooth and uncomplicated placement of arterial line using aseptic sterile technique. No difficulty or complications. Distal capillary refill unchanged following procedure, confirmed via pulse-ox waveform. I placed the arterial line personally. Staffing Performed: Anesthesiologist Anesthesiologist: Kathe Peralta MD us Kathe Peralta MD ANESTHESIA ORDERABLES Final R esult * Peripheral IV (01/06/2025 11:15 AM EDT) Narrative Andres Rojas CRNA - 01/06/2025 11:15 AM EDT Andres Rojas CRNA 01/06/2025 12:11 PM Peripheral IV Date/Time: 01/06/2025 11:15 AM Placement Needle size: 18 G Location: hand Site prep: alcohol Attempts: 1 us Kathe Peralta MD ANESTHESIA ORDERABLES Edited Result - Final * Peripheral IV (01/06/2025 11:15 AM EDT) Narrative Andres Rojas CRNA - 01/06/2025 11:15 AM EDT Andres Rojas CRNA 01/06/2025 12:11 PM Peripheral IV Date/Time: 01/06/2025 11:15 AM Placement Needle size: 16 G Location: wrist Site prep: alcohol Attempts: 1 Result Kurt Peralta MD ANESTHESIA ORDERABLES Edited Result - Final * LA AN ELECTIVE ENDOTRACHEAL AIRWAY, PB ANESTHESIA PLACEHOLDER (01/06/2025 11:13 AM EDT) Narrative Andres Rojas CRNA - 01/06/2025 11:13 AM EDT Andres Rojas CRNA 01/06/2025 12:11 PM Airway Date/Time: 01/06/2025 11:13 AM Reason: elective Airway not difficult General Information and Staff Patient location during procedure: OR MUFFLE WORKER: Andres Rojas CRNA Other anesthesia staff: Bina Bennett Performed: Other Anesthesia Staff Patient Condition Indications for airway management: anesthesia Patient position: sniffing Final Airway Details Final airway type: endotracheal airway Successful airway: ETT Cuffed: yes Successful intubation technique: video laryngoscopy Adjuncts used in placement: intubating stylet Endotracheal tube insertion site: oral Cormack-Lehane Classification: grade I - full view of glottis Placement verified by: chest auscultation and capnometry Measured from: lips Additional Comments IV induction, easy mask with oral airway and two hand mask technique. DL with hyper 4 AMBU, grade 1 view, easy intubation. Atraumatic. No change to dentition. us Kathe Peralta MD ANESTHESIA ORDERABLES Edited Result - Final * PB ANESTHESIA NON-TIMED PROCEDURE PLACEHOLDER (01/06/2025 10:08 AM EDT) Narrative Cheng Peña MD - 01/06/2025 10:08 AM EDT Cheng Peña MD 01/06/2025 11:23 AM Epidural Block Patient location during procedure: pre-op Start time: 01/06/2025 10:08 AM End time: 01/06/2025 10:28 AM Reason for block: post-op pain management Block is at surgeon's request Staffing Performed: Resident Anesthesiologist: Cheng Peña MD Resident: Cathryn Garcias MD Preanesthetic Checklist Completed: patient identified, IV checked, site marked, risks and benefits discussed, surgical consent, monitors and equipment checked, pre-op evaluation and timeout performed Block Placement Patient position: sitting Prep: ChloraPrep and site prepped and draped Patient monitoring: heart rate and continuous pulse ox Approach: midline Location: T8-T9 Needle Needle type: Tuohy Needle gauge: 17 G Needle length: 3.5 in Needle insertion depth (cm): 6.5 Catheter size: 19 G Catheter at skin depth (cm): 12 Test dose: negative and lidocaine 1.5% with epinephrine 1-to-200,000 Medications Administered: fentaNYL (SUBLIMAZE) - Intravenous 50 mcg - 01/06/2025 10:08:00 AM Additional Notes After identification of superficial landmarks the skin was prepped with Dura-Prep. Sterile drape placed. Skin anesthetized with 1% lidocaine. Tuohy needle then inserted and directed medially and cephalad with EMANUEL at 6.5 cm. Catheter threaded easily and inserted 5 cm into the space. Secured at the skin with lock-it device, tegaderm, tape. Tested with 1.5% lidocaine with 1:200k epi 2 cc negative for IV or SA dose. us Kathe Peralta MD ANESTHESIA ORDERABLES Final R esult documented in this encounter Visit Diagnoses Not on filedocumented in this encounter Administered Medications Inactive Administered Medications - up to 3 most recent administrations Medication Order MAR Action Action Date Dose Rate Site bupivacaine 0.125% (pf epidural bolus Epidural, Continuous PRN, Starting on Sat01/06/25 at 1144, Until Sat01/06/25 at 1611, Routine, Anesthesia Intraprocedure New Bag 01/06/2025 11:44 AM EDT 3 mL/hr 3 mL/hr cefOXitin (Mefoxin) injection Intravenous, As needed, Starting on Sat01/06/25 at 1132, Until Sat01/06/25 at 1611, Routine, Anesthesia Intraprocedure Given 01/06/2025 3:20 PM EDT 2 g Given 01/06/2025 1:32 PM EDT 2 g Given 01/06/2025 11:32 AM EDT 2 g electrolyte (Isolyte-S or Plasmalyte-A) IV solution Intravenous, Continuous PRN, Starting on Sat01/06/25 at 1228, Until Sat01/06/25 at 1611, Routine New Bag 01/06/2025 12:28 PM EDT fentaNYL (Sublimaze) injection Intravenous, Once PRN Procedure, Starting on Sat01/06/25 at 1008, Until Sat01/06/25 at 1454, Routine, Anesthesia Intraprocedure Given 01/06/2025 2:54 PM EDT 50 mcg Given 01/06/2025 2:20 PM EDT 50 mcg Given 01/06/2025 1:02 PM EDT 50 mcg HYDROmorphone (Dilaudid) injection Intravenous, As needed, Starting on Sat01/06/25 at 1144, Until Sat01/06/25 at 1611, Routine, Anesthesia Intraprocedure Given 01/06/2025 3:41 PM EDT 0.5 mg Given 01/06/2025 11:44 AM EDT 0.5 mg HYDROmorphone PF (Dilaudid) injection Epidural, As needed, Starting on Sat01/06/25 at 1135, Until Sat01/06/25 at 1611, Routine, Anesthesia Intraprocedure Given 01/06/2025 11:35 AM EDT 0. 5 mg lactated Ringer's infusion Intravenous, Continuous PRN, Starting on Sat01/06/25 at 1102, Until Sat01/06/25 at 1611, Routine New Bag 01/06/2025 1:08 PM EDT New Bag 01/06/2025 11:02 AM EDT Lidocaine HCl prefilled syringe Buccal, As needed, Starting on Sat01/06/25 at 1109, Anesthesia Intraprocedure Given 01/06/2025 11:09 AM EDT 100 mg phenylephrine 25 mg in NS 250 mL (0.1 mg/mL) infusion (compounding pharmacy premix) Intravenous, Continuous PRN, Starting on Sat01/06/25 at 1243, Until Sat01/06/25 at 1611, Routine, Anesthesia Intraprocedure Rate/Dose Change 01/06/2025 1:40 PM EDT 0.25 mcg/kg/min 16.335 mL/hr Rate/Dose Change 01/06/2025 1:29 PM EDT 0.2 mcg/kg/min 13. 068 mL/hr Rate/Dose Change 01/06/2025 1:07 PM EDT 0.1 mcg/kg/min 6.5 34 mL/hr phenylephrine in NS (Yuriy-Synephrine) 100 mcg/mL prefilled syringe Intravenous, As needed, Starting on Sat01/06/25 at 1133, Until Sat01/06/25 at 1611, Routine, Anesthesia Intraprocedure Given 01/06/2025 12:43 PM EDT 150 mcg Given 01/06/2025 12:38 PM EDT 200 mcg Given 01/06/2025 12:26 PM EDT 100 mcg propofol (Diprivan) injection Intravenous, As needed, Starting on Sat01/06/25 at 1109, Until Sat01/06/25 at 1611, Routine, Anesthesia Intraprocedure Given 01/06/2025 1:04 PM EDT 40 mg Given 01/06/2025 11:09 AM EDT 160 mg rocuronium (ZeMuron) injection Intravenous, As needed, Starting on Sat01/06/25 at 1109, Until Sat01/06/25 at 1611, Routine, Anesthesia Intraprocedure Given 01/06/2025 2:20 PM EDT 30 mg Given 01/06/2025 1:56 PM EDT 10 mg Given 01/06/2025 1:26 PM EDT 20 mg sodium chloride 0.9 % infusion Intravenous, Continuous PRN, Starting on Sat01/06/25 at 1116, Until Sat01/06/25 at 1611, Routine New Bag 01/06/2025 11:16 AM EDT sodium chloride 0.9 % infusion Intravenous, Continuous PRN, Starting on Sat01/06/25 at 1243, Until Sat01/06/25 at 1611, Routine New Bag 01/06/2025 12:43 PM EDT 75 mL/hr sugammadex (Bridion) 100 MG/ML injection Intravenous, As needed, Starting on Sat01/06/25 at 1538, Until Sat01/06/25 at 1611, Routine, Anesthesia Intraprocedure Given 01/06/2025 3:38 PM EDT 300 mg vasopressin (Vasostrict) injection Subcutaneous, As needed, Starting on Sat01/06/25 at 1225, Until Sat01/06/25 at 1611, Routine, Anesthesia Intraprocedure Given 01/06/2025 12:34 PM EDT 1 Units Given 01/06/2025 12:25 PM EDT 1 Units documented in this encounter Additional Health Concerns Active Problems Noted Date Diagnosed Date Autogenerated Problem 12/24/2024 Assessment Noted Time A fall risk assessment has been complete d for the patient 12/24/2024 8:48 AM EDT A Body Mass Index follow-up plan has been documented for the patient 01/13/2025 8:18 AM EDT documented as of this encounter Care Teams Stove Mounter Relationship Specialty Start Date End Date Tayo Jones MD [address] [place] [address] PCP - General 07/14/24 documented as of this encounter
--- OUTSIDE RECORDS SUMMARY | 2025-02-04 09:15 | XMS_ITS | Encounter Summary ---
Author Organization [facility] Address [address] [place] [address] Care Team Providers Care Vertica Architect Name Role Phone Tayo Jones MD Primary Care Provider [phone] Reason for Visit * Reason Comments Post-op From surgery * Consultation (Routine) - Closed Specialty Diagnoses / Procedures Referred By Samia t Referred To Contact General Surgery Diagnoses Metastatic colon cancer to liver Hernia Farhad Castillo MD [address] [address] Phone: tel: fax: Heidi March MD [address] [address] Phone: tel: fax: Referral ID Status Reason Start Date Expiration Date V isits Requested Visits Authorized [id number] Closed Specialty Services Required 12/24/2024 06/25/2026 1 1 Encounter Details Date Type Department Care Team (Late st Contact Info) Description 02/04/2025 10:15 AM EDT [facility] [address] [place] [address] Heidi March MD [phone] [place] [address] Incisional hernia, without obstruction or gangrene (Primary Dx) Social History Tobacco Use Types Packs/Day Years Used Date Smoking Tobacco: Never Smokeless Tobacco: Never Alcohol Use Standard Drinks/Week Comments Never 0 (1 standard drink = 0.6 oz pur e alcohol) PHQ-2 Answer Date Recorded Patient Health Questionnaire-2 Score 0 02/04/2025 PHQ-9 Answer Date Recorded Patient Health Questionnaire-9 Score 0 02/04/2025 Humiliation, Afraid, Rape, and Kick questionnair e [...] any time in the past 12 m [facility], were you homeless or living in a care home (including now)? No 01/07/2025 [facility] Utilities Answer Date Recorded In the [...] drink first t rah in the morning (EYE-MACHINE TENDER) to steady your nerves or to get [...] Sign Reading Time Taken Comments Blood Pressure 137/84 02/04/2025 9:52 AM EDT Pulse 72 02/04/2025 9:43 AM EDT Temperature 36.5 C (97.7 F) 02/04/2025 9:43 AM EDT Respiratory Rate - - Oxygen Saturation - - Inhaled Oxygen Concentration - - Weight 114 kg (251 lb 9.6 oz) 02/04/2025 9:43 AM EDT Height 175.5 cm (5' 9.09 ) 02/04/2025 9:43 AM ED T Body Mass Index 37.05 02/04/2025 9:43 AM EDT documented in this encounter Functional Status * Over the past 2 weeks, how often have you been bothered by any of the following problems? Question Answer Date of Assessment Author Little interest or pleasure in doing things Not at all 02/04/2025 9:45 AM EDT [facility] Perez Feeling down, depressed, or hopeless Not at all 02/04/2025 9:45 AM EDT [facility] Patient Health Questionnaire -2 Score 0 02/04/2025 9:45 AM EDQamar Grajeda'Vita Perez * Question Answer Date of Assessment Author Trouble falling or staying asleep, or sleeping too much Not at all 02/04/2025 9:45 AM EDT [facility] Feeling tired or having quentin le energy Not at all 02/04/2025 9:45 AM EDT [facility] Poor appetite or overeating Not at all 02/04/2025 9: 45 AM EDT O'Hair, Vita S Feeling bad about yourself - or that you are a failure or have let yourself or your family down Not at all 02/04/2025 9:45 AM EDT [facility] Trouble concentrating on things, such as reading the newspaper or watching television Not at all 02/04/2025 9:45 AM EDT [facility] Moving or speaking so slowly that other people could have noticed? Or the opposite - being so fidgety or restless that you have been moving around a lot more than usual. Not at all 02/04/2025 9:45 AM EDQamar Grajeda'Vita Perez Thoughts that you would be better off or hurting yourself in some way Not at all 02/04/2025 9:45 AM TRACE Graj[facility]ita Perez Patient Health Questionnaire -9 Score 0 02/04/2025 9:45 AM EDT [facility] * How difficult have these problems made it for you to do your work, take care of things at home, or get along with other people? Answer Date of Assessment Author Not difficult at all 02/04/2025 9:45 AM EDT [facility] [place] documented as of this encounter Miscellaneous Notes * Progress Notes - Akbar Jefferson - 02/04/2025 10:15 AM EDT Subjective Nayan Womack is a 59 y.o. male w/ PMH stage 4 colon cancer w/ liver mets presenting 4 weeks post opfrom open complex >10 cm ventral incisional hernia repair with Phasix mesh. Pt reports feeling great. Reports no pain. Passing gas and appropriate bowel and urinary function. Pt wears abdominal binder daily and is wearing it at clinic this morning. Pt is able to do all regular activities of daily living. Denies any swelling/erythema/tenderness around incision site. Reports incision is healing well. Patient denies nausea, vomiting, chills, fevers, and drainage from wounds. Patient reports pain scale of 0/10. Vital signs and medications were reviewed. Current Medications[1] Allergies Patient has no known allergies. Objective Physical Exam Physical Exam Vitals reviewed. Constitutional: Appearance: Normal appearance. Not ill-appearing. HENT: Head: Normocephalic and atraumatic. Pulmonary: Effort: Pulmonary effort is normal. No respiratory distress. Neurological: General: No focal deficit present. Mental Status: Patient is alert and oriented to person, place, and time. Psychiatric: Mood and Affect: Mood normal, NAD, normal affect Behavior: Behavior normal. Abdominal: Abdomen: Incision is healing very well. No erythema, drainage, or tenderness. Visit Vitals BP 137/84 Pulse 72 Temp 36.5 ??C (97.7 ??F) Ht 1.755 m (5' 9.09 ) Wt 114 kg (251 lb 9.6 oz) BMI 37.05 kg/m?? Constitutional: well developed, well nourished, and in no acute distress Psychiatric: oriented to time, place and person, mood and affect are within normal limits Incision midline; healing well, repair solid and intact, and no erythema. Drain not present Assessment/Plan Problem List Items Addressed This Visit Incisional hernia, without obstruction or gangrene - Primary 59 y.o., s/p open complex >10 cm ventral incisional hernia repair with Phasix mesh with a(n) excellent outcome. Follow up - prn Pt Instructions: No lifting more than 20 pounds for 6 weeks from time of surgery. Tobacco avoidance for 3 months from time of surgery. Call for any changes to your incision including redness, swelling, drainage or fevers greater than 100.4 you experience. Pt was counseled on his abdominal binder being optional from today forward. Akbar Jefferson, MS3 [1] Current Outpatient Medications Medication Sig Dispense Refill carvedilol (Coreg) 12.5 MG tablet Take by mouth in the morning and in the evening. Take with meals. cyclobenzaprine (Flexeril) 5 MG tablet Take 1 tablet by mouth 3 times a day. ferrous sulfate 325 (65 Fe) MG EC tablet insulin lispro (Admelog, HumaLOG) 100 UNIT/ML injection pen Inject 3 Units under the skin 3 times aday with meals. Lantus SoloStar 100 UNIT/ML injection pen Inject 12 Units under the skin nightly. lisinopril 20 MG tablet Take 0.5 tablets by mouth daily. loperamide (Imodium A-D) 2 MG tablet Take by mouth 3 times a day as needed. magnesium oxide (Mag-Ox) 400 MG tablet Take 1 tablet by mouth 2 times a day. Multiple Vitamin (multivitamin) tablet Take 1 tablet by mouth daily. naloxone (Narcan) 4 mg/0.1 mL nasal spray 1. Give 1 spray in nostril for no/slow breathing or cannot wake after opioid use 2. Call 911 3. Repeat in other nostril if symptoms continue 1 each 0 pantoprazole (Protonix) 40 MG EC tablet Take 1 tablet by mouth daily. Do not crush, chew, or split. potassium chloride CR (Klor-Con M20) 20 MEQ ER tablet Take 1 tablet by mouth 2 times a day. Quercetin 500 MG capsule Take 2 tablets by mouth daily. sodium bicarbonate 650 MG tablet Take 1 tablet by mouth 2 times a day. spironolactone (Aldactone) 25 MG tablet Take 1 tablet by mouth daily. mupirocin (Bactroban) 2 % ointment Apply topically 2 times a day. 1 g 0 Nutritional Supplements (Impact Advanced Recovery) liquid Drink 1 178ml carton 2 per day X 5 days before surgery (Patient not taking: Reported on 02/04/2025) 2500 mL 0 ondansetron (Zofran) 4 MG tablet (Patient not taking: Reported on 02/04/2025) No current facility-administered medications for this visit. Cosigned by Heidi Macrh MD at 02/08/2025 3:47 PM EDT Associated attestation - Heidi March MD - 02/08/2025 3:47 PM EDT I saw and evaluated the patient with the resident/fellow. I discussed the case with the resident/fellow and agree with the findings and plan as documented. Acceptable exercises form provided to the patient, lifting restrictions increase his per month, 20 lb month 2, 30 lb month 3 etc.. Follow up will be with surgical Oncology. documented in this encounter Plan of Treatment Upcoming Encounters Date Type Department Care Team (Late st Contact Info) Description 05/13/2025 7:30 AM EST Appointment [facility] Radiology [address] [place] [address] 05/13/2025 10:15 AM EST Office Visit [facility] Multid[facility] Oncology [facility] [address] [place] [address] Farhad Castillo MD [address] [address] documented as of this encounter Goals Goal Patient Goal Type Associated Problems Recent Progress Patient-Stated? Author Autogenera inessa Goal Care Plan Autogenerated Problem No Farhad Castillo MD documented as of this encounter Visit Diagnoses Diagnosis Incisional hernia, without obstruction or gangrene- Primary documented in this encounter Additional Health Concerns Active Problems Noted Date Diagnosed Date Autogenerated Problem 12/24/2024 Assessment Noted Time PHQ-9 Depression Total Score: 0 02/05/20 9:45 AM EDT A fall risk assessment has been complete d for the patient 02/04/2025 9:46 AM EDT A Body Mass Index follow-up plan has been documented for the patient 02/08/2025 3:47 PM EDT documented as of this encounter Care Teams Vertica Architect Relationship Specialty Start Date End Date Tayo Jones MD [address] [place] [address] PCP - General 07/14/24 documented as of this encounter
--- OUTSIDE RECORDS SUMMARY | 2025-02-11 07:20 | XMS_ITS | Encounter Summary ---
Author Organization [facility] Address [address] [id number] Care Team Providers Care Hand Blocker Name Role Phone Tayo Jones MD Primary Care Provider [phone] Reason for Referral * Imaging (Routine) - Closed Specialty Diagnoses / Procedures Referred By Samia pagan Referred To Contact Radiology Diagnoses Metastatic colon cancer to liver Procedures CT Abdomen Pelvis w IV Contrast Julia Dotson, BUILDING ENERGY RETROFIT TECHNICIAN [address] [address] Phone: tel: fax: Referral ID Status Reason Start Date Expiration Date Visits Re quested Visits Authorized [id number] Closed 01/25/2025 07/27/2026 1 1 * Imaging (Routine) - Closed Specialty Diagnoses / Procedures Referred By Samia pagan Referred To Contact Radiology Diagnoses Metastatic colon cancer to liver Procedures CT Chest w IV Contrast Julia Dotson APRN [address] [address] Phone: tel: fax: Referral ID Status Reason Start Date Expiration Date Visits Re quested Visits Authorized [id number] Closed 01/25/2025 07/27/2026 1 1 Reason for Visit * Imaging (Routine) - Closed Specialty Diagnoses / Procedures Referred By Samia pagan Referred To Contact Radiology Diagnoses Metastatic colon cancer to liver Procedures CT Abdomen Pelvis w IV Contrast Julia Dotson, BUILDING ENERGY RETROFIT TECHNICIAN [address] [place] [address] Phone: tel: fax: Referral ID Status Reason Start Date Expiration Date Visits Re quested Visits Authorized [id number] Closed 01/25/2025 07/27/2026 1 1 Encounter Details Date Type Department Care Team (Latest Contact Info) Description 02/11/2025 8:20 AM EDT - 02/11/2025 11:59 PM EDT Hospital Encounter [facility] [address] [place] [address] Metastatic colon cancer to liver Discharge Disposition: Home or Self Care Social History Tobacco Use Types Packs/Day Years Used Date Smoking Tobacco: Never Smokeless Tobacco: Never Alcohol Use Standard Drinks/Week Comments Never 0 (1 standard drink = 0.6 oz pur e alcohol) PHQ-2 Answer Date Recorded Patient Health Questionnaire-2 Score 0 02/11/2025 PHQ-9 Answer Date Recorded Patient Health Questionnaire-9 [...] the past 12 m [facility], were you homeless or living in a care home (including now)? 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) to steady your nerves or to get [...] pleasure in doing things Not at all 02/11/2025 10:18 AM Jennifer Nayak Feeling down, depressed, or hopeless Not at all 02/11/2025 10:18 AM Jennifer Nayak Patient Health Questionnaire -2 Score 0 02/11/2025 10:18 AM Jennifer Nyaak * Question Answer Date of Assessment Author Feeling bad about yourself - or that you are a failure or have let yourself or your family down Not at all 02/11/2025 10:18 AM Jennifer Petersen Thoughts that you would be better off or hurting yourself in some way Not at all 02/11/2025 10:18 AM Jennifer Nayak * How difficult have these problems made it for you to do your work, take care of things at home, or get along with other people? Answer Date of Assessment Author Not difficult at all 02/11/2025 10:18 AM Jennifer Petersen documented as of this encounter Medications at [...] 12/24/2024 ondansetron (Zofran) 4 MG tablet 04/19/2024 documented as of this encounter Miscellaneous Notes * Josy Ricardo - 02/11/2025 8:36 AM EDT Images from the original note were not included. 1631 Caring for Yourself after Contrast Imaging If [...] EST Appointment [facility] [address] [place] [id number] 05/13/2025 10:15 AM EST Office Visit [facility] [address] [place] [address] Farhad Castillo MD [address] [phone] documented as of this encounter Goals Goal Patient Goal Type Associated Problems Recent Progress Patient-Stated? Author Autogenera inessa Goal Care Plan Autogenerated Problem No Farhad Castillo MD documented as of this encounter Procedures Procedure Name Priority Date/Time Associated Diagnosis Comments CT ABDOMEN PELVIS W IV CONTRAST Routine 02/11/2025 9:37 AM EDT Metastatic colon cancer to liver CT CHEST W IV CONTRAST Routine 02/11/2025 9:37 AM EDT Metastatic colon cancer to liver documented in this encounter Results * CT Abdomen Pelvis w IV Contrast (02/11/2025 9:37 AM EDT) Anatomical Region Laterality Modality Abdomen, Pelvis Computed Tomogra phy Impressions 02/11/2025 10:50 AM EDT Chest: No evidence of disease progression. Abdomen/Pelvis: Interval posttreatment changes in segments 7 and 8 of the liver without evidence for residual disease. No new suspicious liver lesion. Increased size of portacaval lymph nodes since 11/19/2024. Postsurgical changes of ventral incisional hernia repair. CRITICAL RESULT: No. COMMUNICATION: Per this written report. Drafted by Domenica Grimaldo DO on 02/11/2025 10:15 AM Final report signed by Domenica Grimaldo DO on 02/11/2025 10:50 AM Narrative 02/11/2025 10:50 AM EDT CLINICAL INDICATION: Metastatic Cecum adenocarcinoma. Status post microwave ablation of segment 7 liver lesion, segment 8 liver resection, cholecystectomy, and ventral incisional hernia repair on 01/06/2025. TECHNIQUE: Multiple axial CT images were obtained from thoracic inlet through pubic symphysis following administration of IV contrast, Omnipaque 300, 100 mL. Images of the abdomen were obtained in arterial, portal venous, and delayed phases. Reformatted images in the coronal and sagittal planes were generated from the axial data set to facilitate diagnostic accuracy. Total DLP (Dose-Length Product): 1742.28 mGy.cm (accession [id number]), 1742.28 mGy.cm (accession [id number]). Please note: The reported value represents the total of one or more individual components during the CT acquisition on this date and at this time, and as such, the same value may appear in more than one CT report depending on the interpreting/reporting physicians. COMPARISON: MR abdomen 12/17/2024. CT chest, abdomen, pelvis 11/19/2024. FINDINGS: Chest: Lymph Nodes and Mediastinum: No lymphadenopathy by CT size criteria. No mediastinal mass lesions. No suspicious thyroid findings. Cardiovascular: The heart is normal in caliber. Thoracic great vessels are patent. Left chest wall Port-A-Cath with tip in the mid SVC. Lungs and Pleura: Unchanged few scattered subcentimeter lung nodules in the lingula and bilateral lower lobes (series 2 images 156, 230, 235, 258). Intrafissural lymph nodes on the right are also unchanged (series 2 images 187, 197). No pleural effusions or suspicious thickening. Musculoskeletal and Body Wall: No clearly aggressive bone lesions. Bilateral gynecomastia. Subacute vs. chronic left lateral 10th rib fracture on the right. Abdomen/Pelvis: Liver, Gallbladder, Biliary Tract: Mild hepatic steatosis and volume redistribution, similar to prior. Interval resection of the segment 8 liver lesion and ablation of segment 7 liver lesion without evidence of residual disease. No new suspicious liver lesion. Interval cholecystectomy. No biliary ductal dilation. Spleen: Unremarkable. Pancreas: Unremarkable. Adrenal Glands: Unremarkable. Kidneys: Unchanged right lower pole renal cyst. No hydronephrosis. Lymph Nodes: Increased size of a portacaval lymph node measuring 17 mm, previously 12 mm on 11/19/2024 (series 9 image 74). An adjacent portacaval node is also mildly increased in size measuring 14 mm, previously 10 mm (series 9 image 67). Unchanged mildly enlarged left pelvic sidewall lymph node measuring 12 mm (series 9 image 236). Vasculature: The aortoiliac vasculature is normal in caliber and patent throughout demonstrating minimal atherosclerotic changes. Patent portal venous system. GI Tract/Mesentery/Peritoneum: Postsurgical changes of right hemicolectomy. No suspicious findings along the ileocolic anastomosis. Normal caliber small and large bowel without evidence of obstruction. No suspicious mesenteric or peritoneal findings. Pelvic Viscera: Unremarkable. No suspicious pelvic mass lesions. Free Fluid: No ascites. Musculoskeletal and Body Wall: No clearly aggressive bone lesions. Postsurgical changes of ventral incisional hernia repair with mild diffuse soft tissue stranding. Procedure Note Domenica Grimaldo, DO - 02/11/2025 CLINICAL INDICATION: Metastatic Cecum adenocarcinoma. Status post microwave ablation of segment7 liver lesion, segment 8 liver resection, cholecystectomy, and ventralincisional hernia repair on 01/06/2025. TECHNIQUE: Multiple axial CT images were obtained from thoracic inlet through pubicsymphysis following administration of IV contrast, Omnipaque 300, 100 mL.Images of the abdomen were obtained in arterial, portal venous, anddelayed phases. Reformatted images in the coronal and sagittal planes weregenerated from the axial data set to facilitate diagnostic accuracy. Total DLP (Dose-Length Product): 1742.28 mGy.cm (accession [id number]),1742.28 mGy.cm (accession [id number]). Please note: The reported valuerepresents the total of one or more individual components during the CTacquisition on this date and at this time, and as such, the same value mayappear in more than one CT report depending on the interpreting/reportingphysicians. COMPARISON: MR abdomen 12/17/2024. CT chest, abdomen, pelvis 11/19/2024. FINDINGS: Chest: Lymph Nodes and Mediastinum: No lymphadenopathy by CT size criteria. Nomediastinal mass lesions. No suspicious thyroid findings. Cardiovascular: The heart is normal in caliber. Thoracic great vessels arepatent. Left chest wall Port-A-Cath with tip in the mid SVC. Lungs and Pleura: Unchanged few scattered subcentimeter lung nodules inthe lingula and bilateral lower lobes (series 2 images 156, 230, 235,258). Intrafissural lymph nodes on the right are also unchanged (series 2images 187, 197). No pleural effusions or suspicious thickening. Musculoskeletal and Body Wall: No clearly aggressive bone lesions.Bilateral gynecomastia. Subacute vs. chronic left lateral 10th ribfracture on the right. Abdomen/Pelvis: Liver, Gallbladder, Biliary Tract: Mild hepatic steatosis and volumeredistribution, similar to prior. Interval resection of the segment 8liver lesion and ablation of segment 7 liver lesion without evidence ofresidual disease. No new suspicious liver lesion. Intervalcholecystectomy. No biliary ductal dilation. Spleen: Unremarkable. Pancreas: Unremarkable. Adrenal Glands: Unremarkable. Kidneys: Unchanged right lower pole renal cyst. No hydronephrosis. Lymph Nodes: Increased size of a portacaval lymph node measuring 17 mm,previously 12 mm on 11/19/2024 (series 9 image 74). An adjacent portacavalnode is also mildly increased in size measuring 14 mm, previously 10 mm(series 9 image 67). Unchanged mildly enlarged left pelvic sidewall lymphnode measuring 12 mm (series 9 image 236). Vasculature: The aortoiliac vasculature is normal in caliber and patentthroughout demonstrating minimal atherosclerotic changes. Patent portalvenous system. GI Tract/Mesentery/Peritoneum: Postsurgical changes of righthemicolectomy. No suspicious findings along the ileocolic anastomosis.Normal caliber small and large bowel without evidence of obstruction. Nosuspicious mesenteric or peritoneal findings. Pelvic Viscera: Unremarkable. No suspicious pelvic mass lesions. Free Fluid: No ascites. Musculoskeletal and Body Wall: No clearly aggressive bone lesions.Postsurgical changes of ventral incisional hernia repair with mild diffusesoft tissue stranding. IMPRESSION: Chest: No evidence of disease progression. Abdomen/Pelvis: Interval posttreatment changes in segments 7 and 8 of the liver withoutevidence for residual disease. No new suspicious liver lesion. Increased size of portacaval lymph nodes since 11/19/2024. Postsurgical changes of ventral incisional hernia repair. CRITICAL RESULT: No. COMMUNICATION: Per this written report. Drafted by Domenica Grimaldo DO on 02/11/2025 10:15 AM Final report signed by Domenica Grimaldo DO on 02/11/2025 10:50 AM Julia Dotson APRN IM CT PROCEDURES Final Result * CT Chest w IV Contrast (02/11/2025 9:37 AM EDT) Anatomical Region Laterality Modality Chest Computed Tomogra phy Impressions 02/11/2025 10:50 AM EDT Chest: No evidence of disease progression. Abdomen/Pelvis: Interval posttreatment changes in segments 7 and 8 of the liver without evidence for residual disease. No new suspicious liver lesion. Increased size of portacaval lymph nodes since 11/19/2024. Postsurgical changes of ventral incisional hernia repair. CRITICAL RESULT: No. COMMUNICATION: Per this written report. Drafted by Domenica Grimaldo DO on 02/11/2025 10:15 AM Final report signed by Domenica Grimaldo DO on 02/11/2025 10:50 AM Narrative 02/11/2025 10:50 AM EDT CLINICAL INDICATION: Metastatic Cecum adenocarcinoma. Status post microwave ablation of segment 7 liver lesion, segment 8 liver resection, cholecystectomy, and ventral incisional hernia repair on 01/06/2025. TECHNIQUE: Multiple axial CT images were obtained from thoracic inlet through pubic symphysis following administration of IV contrast, Omnipaque 300, 100 mL. Images of the abdomen were obtained in arterial, portal venous, and delayed phases. Reformatted images in the coronal and sagittal planes were generated from the axial data set to facilitate diagnostic accuracy. Total DLP (Dose-Length Product): 1742.28 mGy.cm (accession [id number]), 1742.28 mGy.cm (accession [id number]). Please note: The reported value represents the total of one or more individual components during the CT acquisition on this date and at this time, and as such, the same value may appear in more than one CT report depending on the interpreting/reporting physicians. COMPARISON: MR abdomen 12/17/2024. CT chest, abdomen, pelvis 11/19/2024. FINDINGS: Chest: Lymph Nodes and Mediastinum: No lymphadenopathy by CT size criteria. No mediastinal mass lesions. No suspicious thyroid findings. Cardiovascular: The heart is normal in caliber. Thoracic great vessels are patent. Left chest wall Port-A-Cath with tip in the mid SVC. Lungs and Pleura: Unchanged few scattered subcentimeter lung nodules in the lingula and bilateral lower lobes (series 2 images 156, 230, 235, 258). Intrafissural lymph nodes on the right are also unchanged (series 2 images 187, 197). No pleural effusions or suspicious thickening. Musculoskeletal and Body Wall: No clearly aggressive bone lesions. Bilateral gynecomastia. Subacute vs. chronic left lateral 10th rib fracture on the right. Abdomen/Pelvis: Liver, Gallbladder, Biliary Tract: Mild hepatic steatosis and volume redistribution, similar to prior. Interval resection of the segment 8 liver lesion and ablation of segment 7 liver lesion without evidence of residual disease. No new suspicious liver lesion. Interval cholecystectomy. No biliary ductal dilation. Spleen: Unremarkable. Pancreas: Unremarkable. Adrenal Glands: Unremarkable. Kidneys: Unchanged right lower pole renal cyst. No hydronephrosis. Lymph Nodes: Increased size of a portacaval lymph node measuring 17 mm, previously 12 mm on 11/19/2024 (series 9 image 74). An adjacent portacaval node is also mildly increased in size measuring 14 mm, previously 10 mm (series 9 image 67). Unchanged mildly enlarged left pelvic sidewall lymph node measuring 12 mm (series 9 image 236). Vasculature: The aortoiliac vasculature is normal in caliber and patent throughout demonstrating minimal atherosclerotic changes. Patent portal venous system. GI Tract/Mesentery/Peritoneum: Postsurgical changes of right hemicolectomy. No suspicious findings along the ileocolic anastomosis. Normal caliber small and large bowel without evidence of obstruction. No suspicious mesenteric or peritoneal findings. Pelvic Viscera: Unremarkable. No suspicious pelvic mass lesions. Free Fluid: No ascites. Musculoskeletal and Body Wall: No clearly aggressive bone lesions. Postsurgical changes of ventral incisional hernia repair with mild diffuse soft tissue stranding. Procedure Note Domenica Grimaldo, DO - 02/11/2025 CLINICAL INDICATION: Metastatic Cecum adenocarcinoma. Status post microwave ablation of segment7 liver lesion, segment 8 liver resection, cholecystectomy, and ventralincisional hernia repair on 01/06/2025. TECHNIQUE: Multiple axial CT images were obtained from thoracic inlet through pubicsymphysis following administration of IV contrast, Omnipaque 300, 100 mL.Images of the abdomen were obtained in arterial, portal venous, anddelayed phases. Reformatted images in the coronal and sagittal planes weregenerated from the axial data set to facilitate diagnostic accuracy. Total DLP (Dose-Length Product): 1742.28 mGy.cm (accession [id number]),1742.28 mGy.cm (accession [id number]). Please note: The reported valuerepresents the total of one or more individual components during the CTacquisition on this date and at this time, and as such, the same value mayappear in more than one CT report depending on the interpreting/reportingphysicians. COMPARISON: MR abdomen 12/17/2024. CT chest, abdomen, pelvis 11/19/2024. FINDINGS: Chest: Lymph Nodes and Mediastinum: No lymphadenopathy by CT size criteria. Nomediastinal mass lesions. No suspicious thyroid findings. Cardiovascular: The heart is normal in caliber. Thoracic great vessels arepatent. Left chest wall Port-A-Cath with tip in the mid SVC. Lungs and Pleura: Unchanged few scattered subcentimeter lung nodules inthe lingula and bilateral lower lobes (series 2 images 156, 230, 235,258). Intrafissural lymph nodes on the right are also unchanged (series 2images 187, 197). No pleural effusions or suspicious thickening. Musculoskeletal and Body Wall: No clearly aggressive bone lesions.Bilateral gynecomastia. Subacute vs. chronic left lateral 10th ribfracture on the right. Abdomen/Pelvis: Liver, Gallbladder, Biliary Tract: Mild hepatic steatosis and volumeredistribution, similar to prior. Interval resection of the segment 8liver lesion and ablation of segment 7 liver lesion without evidence ofresidual disease. No new suspicious liver lesion. Intervalcholecystectomy. No biliary ductal dilation. Spleen: Unremarkable. Pancreas: Unremarkable. Adrenal Glands: Unremarkable. Kidneys: Unchanged right lower pole renal cyst. No hydronephrosis. Lymph Nodes: Increased size of a portacaval lymph node measuring 17 mm,previously 12 mm on 11/19/2024 (series 9 image 74). An adjacent portacavalnode is also mildly increased in size measuring 14 mm, previously 10 mm(series 9 image 67). Unchanged mildly enlarged left pelvic sidewall lymphnode measuring 12 mm (series 9 image 236). Vasculature: The aortoiliac vasculature is normal in caliber and patentthroughout demonstrating minimal atherosclerotic changes. Patent portalvenous system. GI Tract/Mesentery/Peritoneum: Postsurgical changes of righthemicolectomy. No suspicious findings along the ileocolic anastomosis.Normal caliber small and large bowel without evidence of obstruction. Nosuspicious mesenteric or peritoneal findings. Pelvic Viscera: Unremarkable. No suspicious pelvic mass lesions. Free Fluid: No ascites. Musculoskeletal and Body Wall: No clearly aggressive bone lesions.Postsurgical changes of ventral incisional hernia repair with mild diffusesoft tissue stranding. IMPRESSION: Chest: No evidence of disease progression. Abdomen/Pelvis: Interval posttreatment changes in segments 7 and 8 of the liver withoutevidence for residual disease. No new suspicious liver lesion. Increased size of portacaval lymph nodes since 11/19/2024. Postsurgical changes of ventral incisional hernia repair. CRITICAL RESULT: No. COMMUNICATION: Per this written report. Drafted by Domenica Grimaldo DO on 02/11/2025 10:15 AM Final report signed by Domenica Grimaldo DO on 02/11/2025 10:50 AM Julia Dotson APRN IMG CT PROCEDURES Final Result documented in this encounter Visit Diagnoses Diagnosis Metastatic colon cancer to liver documented in this encounter Administered Medications Inactive Administered Medications - up to 3 most recent administrations Medication Order MAR Action Action Date Dose Rate Site iohexol (OMNIPaque) 350 MG/ML injection 150 mL 150 mL, Intravenous, Once in imaging, 1 dose, Starting on Zabrina 02/11/25 at 0836, Until Zabrina 02/11/25 at 0925, Routine, Imaging Protocol Orders Given 02/11/2025 9:25 AM EDT 150 mL iohexol (OMNIPaque) 9 MG/ML oral contrast 500 mL 500 mL, Oral, Once in imaging, 1 dose, Starting on Zabrina 02/11/25 at 0836, Until Zabrina 02/11/25 at 0926, Routine, Imaging Protocol Orders Given 02/11/2025 9:26 AM EDT 500 mL documented in this encounter Additional Health Concerns Active Problems Noted Date Diagnosed Date Autogenerated Problem 12/24/2024 Assessment Noted Time PHQ-9 Depression Total Score: 0 02/05/20 9:45 AM EDT A fall risk assessment has been complete d for the patient 02/11/2025 10:18 AM EDT A Body Mass Index follow-up plan has been documented for the patient 02/14/2025 10:36 AM EST documented as of this encounter Care Teams Hand Blocker Relationship Specialty Start Date End Date Tayo Jones MD [address] [place] [address] PCP - General 07/14/24 documented as of this encounter
--- OUTSIDE RECORDS SUMMARY | 2025-02-11 08:00 | XMS_ITS | Encounter Summary ---
Author Organization [facility] Address [address] [place] [address] Care Team Providers Care Yard Driver Name Role Phone Tayo Jones MD Primary Care Provider [phone] Reason for Referral * Imaging (Routine) - Pending Review Specialty Diagnoses / Procedures Referred By Samia pagan Referred To Contact Radiology Diagnoses Metastatic colon cancer to liver Procedures CT Abdomen Pelvis w IV Contrast Farhad Castillo MD [address] [address] Phone: tel: fax: Referral ID Status Reason Start Date Expiration Date V isits Requested Visits Authorized [id number] Pending Review 02/11/2025 08/13/2026 1 1 * Imaging (Routine) - Pending Review Specialty Diagnoses / Procedures Referred By Samia pagan Referred To Contact Radiology Diagnoses Metastatic colon cancer to liver Procedures CT Chest w IV Contrast Farhad Castillo MD [address] [address] Phone: tel: fax: Referral ID Status Reason Start Date Expiration Date V isits Requested Visits Authorized [id number] Pending Review 02/11/2025 08/13/2026 1 1 Reason for Visit * Reason Comments Follow-up Metastatic colon can cer to liver Encounter Details Date Type Department Care Team (Latest Contact Info) Description 02/11/2025 9:00 AM EDT Office Visit [facility] [address] [place] [address] Farhad Castillo MD [address] [phone] Metastatic colon cancer to liver (Primary Dx) Social History Tobacco Use Types [...] money to buy more. Never true 01/08/20 25 Within the past 12 months, t he [...] time in the past 12 m [facility], were you homeless or living in a skilled nursing (including now)? No 01/07/2025 [facility] Utilities Answer Date Recorded In the [...] drink first t rah in the morning (EYE-HAND SILVERING SUPERVISOR) to steady your nerves or to get [...] Sign Reading Time Taken Comments Blood Pressure 131/85 02/11/2025 10:13 AM EDT Pulse 76 02/11/2025 10:13 AM EDT Temperature 36.4 C (97.6 F) 02/11/2025 10:13 AM EDT Respiratory Rate 16 02/11/2025 10:13 AM EDT Oxygen Saturation 98% 02/11/2025 10:13 AM EDT Inhaled Oxygen Concentration - - Weight 118 kg (259 lb 0.7 oz) 02/11/2025 10:13 A M EDT Height 180.3 cm (5' 10.98 ) 02/11/2025 10:13 AM EDT Body Mass Index 36.15 02/11/2025 10:13 AM EDT documented in this encounter Functional Status * Over the past 2 weeks, how often have you been bothered by any of the following problems? Question Answer Date of Assessment Author Little interest or pleasure in doing things Not at all 02/11/2025 10:18 AM EDT Jennifer Ochoa Feeling down, depressed, or hopeless Not at all 02/11/2025 10:18 AM EDT Jennifer Ochoa Patient Health Questionnaire -2 Score 0 02/11/2025 10:18 AM EDT Jennifer Ochoa * Question Answer Date of Assessment Author Feeling bad about yourself - or that you are a failure or have let yourself or your family down Not at all 02/11/2025 10:18 AM EDT Jennifer Mills Thoughts that you would be better off or hurting yourself in some way Not at all 02/11/2025 10:18 AM EDT Jennifer Ochoa * How difficult have these problems made it for you to do your work, take care of things at home, or get along with other people? Answer Date of Assessment Author Not difficult at all 02/11/2025 10:18 AM EDT Jennifer Mills documented as of this encounter Miscellaneous Notes * Progress Notes - Adis Iqbal - 02/11/2025 9:00 AM EDT Surgical Oncology Outpatient Follow-Up Chief complaint: Nayan Womack is a 59 y.o. man here for post-op follow up on liver resection and hernia repair. History of Present Illness: Nayan Womack is a 59 y.o. man here for post-op follow up at surg-onc clinic for liver resection andhernia repair. He is doing well and reports eating well. Past Medical History: Past Medical History Pertinent Negatives[1] See above Past Surgical History: Surgical History[2] See above Social History: Tobacco: Tobacco Use: Low Risk (02/04/2025) Patient History Smoking Tobacco Use: Never Smokeless Tobacco Use: Never Passive Exposure: Not on file Alcohol: Alcohol Use: Low Risk (01/12/2025) CAGE ASSESSMENT Cage unable to access: Not on file Cage max number of drinks: Not on file Cage Beverages a week: Not on file Cage Questionnaire cut down: 0 Cage questionnaire annoyed: 0 Cage questionnaire guilty: 0 Cage questionnaire eye flow coordinator: 0 Cage Overall score: 0 Illicit drug use: Social History Substance and Sexual Activity Drug Use Never Allergies: Allergies[3] Family Medical History: family history includes paternal aunt breast cancer in an other family member. Home Medications: Prior to Admission medications Medication Sig Start Date End Date Taking? Authorizing Provider carvedilol (Coreg) 12.5 MG tablet Take by mouth in the morning and in the evening. Take with meals.07/30/23 Yes Provider, Historical cyclobenzaprine (Flexeril) 5 MG tablet Take 1 tablet by mouth 3 times a day. 01/13/25 Yes Paulo Jay APRN ferrous sulfate 325 (65 Fe) MG EC tablet 08/12/23 Yes Provider, Historical insulin lispro (Admelog, HumaLOG) 100 UNIT/ML injection pen Inject 3 Units under the skin 3 times aday with meals. 01/13/25 Yes Paulo Jay APRN Lantus SoloStar 100 UNIT/ML injection pen Inject 12 Units under the skin nightly. 01/13/25 Yes Paulo Jay APRN lisinopril 20 MG tablet Take 0.5 tablets by mouth daily. 01/13/25 Yes Paulo Jay APRN loperamide (Imodium A-D) 2 MG tablet Take by mouth 3 times a day as needed. 04/19/24 Yes Provider, Historical magnesium oxide (Mag-Ox) 400 MG tablet Take 1 tablet by mouth 2 times a day. 11/07/24 Yes Provider, Historical Multiple Vitamin (multivitamin) tablet Take 1 tablet by mouth daily. Yes Provider, Historical naloxone (Narcan) 4 mg/0.1 mL nasal spray 1. Give 1 spray in nostril for no/slow breathing or cannot wake after opioid use 2. Call 911 3. Repeat in other nostril if symptoms continue 01/13/25 Yes Paulo Jay APRN pantoprazole (Protonix) 40 MG EC tablet Take 1 tablet by mouth daily. Do not crush, chew, or split.01/13/25 03/14/25 Yes Paulo Jay APRN potassium chloride CR (Klor-Con M20) 20 MEQ ER tablet Take 1 tablet by mouth 2 times a day. 11/09/24Yes Provider, Historical Quercetin 500 MG capsule Take 2 tablets by mouth daily. Yes Provider, Historical sodium bicarbonate 650 MG tablet Take 1 tablet by mouth 2 times a day. 11/09/24 Yes Provider, Historical spironolactone (Aldactone) 25 MG tablet Take 1 tablet by mouth daily. 07/11/24 Yes Provider, Historical enoxaparin (Lovenox) 40 MG/0.4ML solution prefilled syringe Inject 0.4 mL under the skin daily for 21 days. 01/13/25 02/04/25 Paulo Jay APRN mupirocin (Bactroban) 2 % ointment Apply topically 2 times a day. Patient not taking: Reported on 02/11/2025 12/24/24 Heidi March MD Nutritional Supplements (Impact Advanced Recovery) liquid Drink 1 178ml carton 2 per day X 5 days before surgery Patient not taking: Reported on 02/04/2025 12/24/24 Heidi March MD ondansetron (Zofran) 4 MG tablet 04/19/24 Provider, Historical Review of Systems: 14 ROS was conducted and is otherwise negative unless noted in HPI. Objective: All laboratory, images, tracings, and vital sign data are personally reviewed unless otherwise noted. Visit Vitals BP 131/85 (BP Location: Left arm, Patient Position: Sitting, BP Cuff Size: Adult) Pulse 76 Temp 36.4 ??C (97.6 ??F) (Oral) Ht 1.803 m (5' 10.98 ) Wt 118 kg (259 lb 0.7 oz) SpO2 98% BMI 36.15 kg/m?? Physical exam: GENERAL: WD, WN, NAD. [...] nondistended. BS present and normoactive x 4 quadrants. Incision site is clean, dry, and intact. SKIN: No rash, sores, lesions or subcutaneous nodules. NEURO: AAOx4. Motor intact and no focal deficits PSYCH: Mood and affect congruent and appropriate to situation. Lab Results Component Value Date WBC 11.56 (H) 02/11/2025 HGB 12.8 (L) 02/11/2025 HCT 39.3 (L) 02/11/2025 MCV 85 02/11/2025 PLT 299 02/11/2025 Lab Results Component Value Date ALT 12 02/11/2025 AST 27 02/11/2025 ALKPHOS 86 02/11/2025 BILITOT 0.5 02/11/2025 Lab Results Component Value Date CREATININE 0.89 02/11/2025 BUN 13 02/11/2025 NA 135 (L) 02/11/2025 K 4.3 02/11/2025 CL 101 02/11/2025 CO2 21 (L) 02/11/2025 Recent Labs Units 07/23/24 1036 11/19/24 1126 02/11/25 1054 CEA ng/mL 9.1* 7.7* 1.9 Final Diagnosis (no units) Date/Time Value 01/06/2025 1259 A. OMENTUM, PARTIAL OMENTECTOMY: - BENIGN FIBROADIPOSE TISSUE; NEGATIVE FOR TUMOR B. LIVER, SEGMENT EIGHT, PARTIAL HEPATECTOMY: - METASTATIC MODERATELY DIFFERENTIATED ADENOCARCINOMA (1.8 CM), MORPHOLOGICALLY CONSISTENT WITH THEPATIENT'S KNOWN CECUM PRIMARY - NEGATIVE MARGINS OF RESECTION - BACKGROUND HEPATIC PARENCHYMA WITH ONGOING STEATOHEPATITIS, AND MILD FIBROSIS (SEE COMMENT) C. GALLBLADDER, CHOLECYSTECTOMY: - MILD CHRONIC CHOLECYSTITIS - NEGATIVE FOR TUMOR Comment (no units) Date/Time Value 01/06/2025 1259 The background liver parenchyma harbors features of chronic liver disease, namely steatohepatitis. Further clinical workup may be indicated for appropriate classification and staging. Radiographics/Diagnostics: === 11/19/24 === CT ABDOMEN PELVIS [...] Total DLP (Dose-Length Product): 3353.28 mGy.cm (accession [id number]), 3353.28 mGy.cm (accession [id number]) Please note: The reported value represents the [...] Trevino MD on 11/19/2024 10:42 AM === 12/17/24 === MR ABDOMEN W AND WO IV CONTRAST - Narrative - CLINICAL INDICATION: [...] No ascites. Musculoskeletal: No aggressive osseus lesions. - Impression - Stable size of hepatic metastatic lesions and [...] on 12/17/2024 4:48 PM Assessment & Plan: Nayan Womack is a 59 y.o. man here for post-op follow up on liver resection and hernia repair and is doing well post-op. We will touch base with his medical oncologists about additional systemic therapy although most likely would recommend ongoing interval surveillance every [address] chest abdomen pelvis with IV contrast liver protocol as well as CEA levels which can be done here at the [facility] with our service. All immediate questions were reviewed and discussed in detail. Plan: -Order CBC/CMP labs. -Schedule follow up in 3 months. Adis Iqbal MS3 02/11/25 10:26 AM [1] Past Medical History: Diagnosis Date Cancer (CMS/HCC) Diabetes High blood pressure [2] Past Surgical History: Procedure Laterality Date APPENDECTOMY COLON SURGERY FOOT SURGERY Left surgery dur to diabetes GALLBLADDER SURGERY HERNIA REPAIR LEG SURGERY Right surgery dur to diabetes [3] No Known Allergies Cosigned by Farhad Castillo MD at 02/14/2025 10:35 AM EST Associated attestation - Farhad Castillo MD - 02/14/2025 10:35 AM EST I saw and evaluated the patient with the medical/ECOLOGIST/PA student. I discussed the case with the medical/ECOLOGIST/PA student and agree with the findings and plan as documented. I personally performed the Examand Medical Decision Making. documented in this encounter Plan of Treatment Upcoming Encounters Date Type Department Care Team (Late st Contact Info) Description 05/13/2025 7:30 AM EST Appointment [facility]iology [address] [place] [address] 05/13/2025 10:15 AM EST Office Visit [facility] [address] [place] [address] Farhad Castillo MD [address] [address] Scheduled Orders Name Type Priority Associated Diagnoses Orde r Schedule CT Chest w IV Contrast Imaging Routine Metastatic colon cancer to liver Expected: 05/14/2025, Expires: 08/15/2026 CT Abdomen Pelvis w IV Contrast Imaging Routine Metastatic colon cancer to liver Expected: 05/14/2025, Expires: 08/15/2026 documented as of this encounter Goals Goal Patient Goal Type Associated Problems Recent Progress Patient-Stated? Author Autogenera inessa Goal Care Plan Autogenerated Problem No Farhad Castillo MD documented as of this encounter Visit Diagnoses Diagnosis Metastatic colon cancer to liver- Primary documented in this encounter Additional Health [...] documented as of this encounter Care Teams Yard Driver Relationship Specialty Start Date End Date Tayo Jones MD [address] [place] [address] PCP - General 07/14/24 documented as of this encounter
--- NOTE | 2025-02-15 11:01 | XR_ITS ---
FINAL REPORT CLINICAL HISTORY: Evaluation of left foot diabetic foot ulcer FINDINGS: LEFT FOOT Three views of the left foot were obtained. There are postoperative changes of amputation at the fifth toe at the mid metatarsal. There is no acute fracture or dislocation. There is no evidence of bone destruction. The visualized joint spaces are normally aligned. There is diffuse soft tissue edema, worse along the dorsum of the foot. No radiopaque foreign body is identified. IMPRESSION: Likely cellulitis without evidence of bone destruction. Reviewed, Interpreted and Dictated by Patsy Wayne MD Transcribed by Meghan Kay Authenticated and [facility]
--- OUTSIDE RECORDS SUMMARY | 2025-02-15 11:05 | XMS_ITS | Encounter Summary ---
Author Organization [facility] Address [address] [place] [address] Care Team Providers Care Cone Treater Name Role Phone Tayo Jones MD Primary Care Provider [phone] Encounter Details Date Type Department Care Team (Late Contact Info) Description 07/16/2024 Lab Requisition [facility] [address] [place] [phone] Farhad Castillo MD [address] [address] Other acute appendicitis without [...] Department Care Team (Late Contact Info) Description 05/13/2025 7:30 AM EST Appointment [facility] [address] [place] [phone] 05/13/2025 10:15 AM EST Office Visit [facility] [address] [place] [address] Farhad Castillo MD [address] [address] documented as of this encounter Procedures Procedure Name Priority Date/Time Associated Diagnosis Comments SURGICAL PATHOLOGY CONSULT Routine 07/16/2024 1:13 PM EDT Other acute appendicitis without perforation or gangrene documented in this encounter Results * Surgical Pathology Consult (07/16/2024 1:13 PM EDT) Case Report Sugical Pathology Consult Case: [id number] Authorizing Provider: Farhad Castillo MD Collected: 07/16/2024 1313 Ordering Location: [facility] Lab Received: 07/16/2024 1313 Pathologist: Constance Murphy MD Specimen: Colon, [id number] 07/17/2024 1:08 PM EDT [facility] Final Diagnosis RIGHT COLON AND TERMINAL ILEUM, RIGHT HEMICOLECTOMY ([id number]; 11/09/2022): - 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 - TUMOR BUDDING SCORE: HIGH (10 OR GREATER). - NO TUMOR SEEN IN TWENTY ONE LYMPH NODES (0/21). 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 07/17/2024 1:08 PM EDT [facility] Clinical Information K35.890 - Other acute appendicitis without perforation or gangrene [ICD-10-CM] 07/17/2024 1:08 PM EDT [facility] Gross Description A. [id number] Received along with a corresponding pathology report from [facility] are 29 slides labeled outside case: [id number] collected on 11/09/2022. 07/17/2024 1:08 PM EDT [...] Result [facility] [address] [place] [address] documented in this encounter Visit Diagnoses Diagnosis Other acute appendicitis without perforation or gangrene documented in this encounter Care Teams Cone Treater Relationship Specialty Start Date End Date Tayo Jones MD [address] [place] [address] PCP - General 07/14/24 documented as of this encounter
--- OUTSIDE RECORDS SUMMARY | 2025-02-15 11:05 | XMS_ITS | Encounter Summary ---
Author Organization [facility] Address [address] [place] [address] Care Team Providers Care Hot Dip Galvanizer Name Role Phone Tayo Jones MD Primary Care Provider [phone] Encounter Details Date Type Department Care Team (Late Contact Info) Description 06/15/2024 Orders Only External Location [address] [place] [address] Provider, External Social History Tobacco Use Types [...] EST Appointment [facility] [address] [place] [address] 05/13/2025 10:15 AM EST Office Visit [facility] [address] [place] [address] Farhad Castillo MD [address] [address] documented as of this encounter Procedures Procedure [...] on filedocumented in this encounter Care Teams Hot Dip Galvanizer Relationship Specialty Start Date End Date Tayo Jones MD [address] [place] [address] PCP - General 07/14/24 documented as of this encounter
--- OUTSIDE RECORDS SUMMARY | 2025-02-15 11:05 | XMS_ITS | Encounter Summary ---
Author Organization [facility] Address [address] [place] [address] Care Team Providers Care Cotton Sampler Name Role Phone Tayo Jones MD Primary Care Provider [phone] Encounter Details Date Type Department Care Team [...] in a snf (including now)? No 01/07/2025 [facility] Utilities Answer Date Recorded In the [...] drink first t rah in the morning (EYE-RHIT) to steady your nerves or to get [...] -9 Score 0 02/04/2025 9:45 AM TRACE [facility] [facility] * How difficult have these problems [...] EST Appointment [facility] [address] [place] [address] 05/13/2025 10:15 AM EST Office Visit [facility] [address] [place] [address] Farhad Castillo MD [address] [phone] documented as of this encounter Goals Goal [...] documented as of this encounter Care Teams Cotton Sampler Relationship Specialty Start Date End Date Tayo Jones MD [address] [place] [address] PCP - General 07/14/24 documented as of this encounter
--- OUTSIDE RECORDS SUMMARY | 2025-02-15 11:05 | XMS_ITS | Encounter Summary ---
Author Organization [facility] Address [address] [place] [address] Care Team Providers Care Irrigation Specialist Name Role Phone Tayo Jones MD Primary Care Provider [phone] Encounter Details Date Type Department Care Team ([facility] st Contact Info) Description 01/27/2025 Telephone [facility] [address] [place] [address] Renee Salas RN Social History Tobacco Use Types Packs/Day Years [...] time in the past 12 m [facility], were you homeless or living in a snf (including now)? No 01/07/2025 [facility] Utilities Answer Date Recorded In the past 12 months has e electric, gas, oil, or water company [...] drink first t rah in the morning (EYE-ENROLLMENT MANAGEMENT COORDINATOR) to steady your nerves or to get [...] AM EDT Left message for Jamee at [facility] calling to check on patient as he missed a post-op follow up yesterday. Will need appointment soon if lenin or stitches need to removed. Requested call back. documented in this encounter Plan of Treatment Upcoming Encounters Date Type Department Care Team (Late st Contact Info) Description 05/13/2025 7:30 AM EST Appointment [facility] [address] [place] [address] 05/13/2025 10:15 AM EST Office Visit [facility] [address] [place] [address] Farhad Castillo MD [address] [address] documented as of this encounter Goals Goal [...] as of this encounter Care Teams Irrigation Specialist Relationship Specialty Start Date End Date Tayo Jones MD [address] [phone] PCP - General 07/14/24 documented as of this encounter
--- OUTSIDE RECORDS SUMMARY | 2025-02-15 11:06 | XMS_ITS | Encounter Summary ---
Author Organization [facility] Address [address] [place] [address] Care Team Providers Care Clinical Cytogeneticist Name Role Phone Tayo Jones MD Primary Care Provider [phone] Encounter Details Date Type Department Care Team (Late st Contact Info) Description 01/15/2023 Orders Only External Location [address] [place] [address] Provider, External Social History Tobacco Use Types [...] EST Appointment [facility] [address] [place] [address] 05/13/2025 10:15 AM EST Office Visit [facility] [address] [place] [address] Farhad Castillo MD [address] [address] documented as of this encounter Procedures Procedure [...] on filedocumented in this encounter Care Teams Clinical Cytogeneticist Relationship Specialty Start Date End Date Tayo Jones MD [address] [place] [address] PCP - General 07/14/24 documented as of this encounter
--- OUTSIDE RECORDS SUMMARY | 2025-02-15 11:06 | XMS_ITS | Encounter Summary ---
Author Organization [facility] Address [address] [place] [address] Care Team Providers Care Metal Finish Inspector Name Role Phone Tayo Jones MD Primary Care Provider [phone] Encounter Details Date Type Department Care Team (Late Contact Info) Description 05/31/2023 Orders Only External Location [address] [place] [address] Provider, External Social History Tobacco Use Types [...] EST Appointment [facility] [address] [place] [address] 05/13/2025 10:15 AM EST Office Visit [facility] [address] [place] [address] Farhad Castillo MD [address] [address] documented as of this encounter Procedures Procedure [...] on filedocumented in this encounter Care Teams Metal Finish Inspector Relationship Specialty Start Date End Date Tayo Jones MD [address] [place] [address] PCP - General 07/14/24 documented as of this encounter
--- OUTSIDE RECORDS SUMMARY | 2025-02-15 11:06 | XMS_ITS | Encounter Summary ---
Author Organization [facility] Address [address] [place] [address] Care Team Providers Care Student Ministry Pastor Name Role Phone Tayo Jones MD Primary Care Provider [phone] Encounter Details Date Type Department Care Team [...] any time in the past 12 m [facility], were you homeless or [...] EST Appointment [facility] [address] [place] [address] 05/13/2025 10:15 AM EST Office Visit [facility] [address] [place] [address] Farhad Castillo MD [address] [phone] documented as of this encounter Visit Diagnoses Not on filedocumented in this encounter Additional Health Concerns Assessment Noted Time A fall risk assessment has been complete d for the patient 07/23/2024 8:54 AM EDT A Body Mass Index follow-up plan has been documented for the patient 11/24/2024 5:29 PM EDT documented as of this encounter Care Teams Student Ministry Pastor Relationship Specialty Start Date End Date Tayo Jones MD [address] [place] [phone] PCP - General 07/14/24 documented as of this encounter
--- OUTSIDE RECORDS SUMMARY | 2025-02-15 11:06 | XMS_ITS | Encounter Summary ---
Author Organization [facility] Address [address] [place] [address] Care Team Providers Care Organizational Development Specialist Name Role Phone Tayo Jones MD Primary Care Provider [phone] Encounter Details Date Type Department Care Team (Late Contact Info) Description 02/18/2023 Orders Only External Location [address] [place] [address] Provider, External Social History Tobacco Use Types [...] EST Appointment [facility] [address] [place] [address] 05/13/2025 10:15 AM EST Office Visit [facility] [address] [place] [address] Farhad Castillo MD [address] [address] documented as of this encounter Procedures Procedure [...] on filedocumented in this encounter Care Teams Organizational Development Specialist Relationship Specialty Start Date End Date Tayo Jones MD [address] [place] [address] PCP - General 07/14/24 documented as of this encounter
--- OUTSIDE RECORDS SUMMARY | 2025-02-15 11:06 | XMS_ITS | Encounter Summary ---
Author Organization [facility] Address [address] [place] [address] Care Team Providers Care Tipple Boss Name Role Phone Tayo Jones MD Primary Care Provider [phone] Encounter Details Date Type Department Care Team (Late Contact Info) Description 01/24/2023 Orders Only External Location [address] [place] [address] Sue Pope MD [address] [place], [place] [id number] Social History Tobacco Use Types Packs/Day Years [...] EST Appointment [facility] [address] [place] [address] 05/13/2025 10:15 AM EST Office [facility] [address] [place] [address] Farhad Castillo MD [address] [address] documented as of this encounter Procedures Procedure [...] on filedocumented in this encounter Care Teams Tipple Boss Relationship Specialty Start Date End Date Tayo Jones MD [address] [id number] PCP - General 07/14/24 documented as of this encounter
--- OUTSIDE RECORDS SUMMARY | 2025-02-15 11:06 | XMS_ITS | Encounter Summary ---
Author Organization [facility] Address [address] [place] [address] Care Team Providers Care Welt Stitch Cleaner Name Role Phone Tayo Jones MD Primary Care Provider [phone] Encounter Details Date Type Department Care Team [...] any time in the past 12 m [facility], were you homeless or living [...] EST Appointment [facility] [address] [place] [facility] [place] [address] 05/13/2025 10:15 AM EST Office Visit [facility] [address] [place] [address] Farhad Castillo MD [address] [address] documented as of this encounter Goals Goal [...] documented as of this encounter Care Teams Welt Stitch Cleaner Relationship Specialty Start Date End Date Tayo Jones MD [address] [place] [address] PCP - General 07/14/24 documented as of this encounter
--- OUTSIDE RECORDS SUMMARY | 2025-02-15 11:06 | XMS_ITS | Encounter Summary ---
Author Organization [facility] Address [address] [place] [address] Care Team Providers Care Mailing Machine Helper Name Role Phone Jeremy Gli MD Unavailable Andres Alcantara DPM Unavailable Grant Fletcher MD Unavailable [phone] Niko Cueva MD Unavailable [phone] None, None Primary Care Provider UnavailGm Vigil DPM Unavailable Reina Byrd NP Unavailable Unavailable Encounter Details Date Type Department Care Team (Late st Contact Info) Description 09/08/2020 Clinical Update [facility] Physicians - Infectious Diseases, [facility] [address] [place] [address] [phone] Grant Fletcher MD [address] [place] [address] [id number] Social History Tobacco Use Types Packs/Day Years [...] (09/07/2020) WBC 12.2 10^3/mL Whole Blood us Garnt Fletcher MD HEMATOLOGY ORDERABLES Final R esult [...] (SGPT) (09/07/2020) ALT 5 U/L Plasma Result [facility] Grant Fletcher MD CHEMISTRY ORDERABLES Final Re sult * ALKALINE PHOSPHATASE (09/07/2020) Alkaline Phosphatase 98 U/L Plasma Result [facility] Grant Fletcher MD CHEMISTRY ORDERABLES Final Re sult * ALBUMIN (09/07/2020) Albumin 2.6 Plasma Result [facility] Grant Fletcher MD CHEMISTRY ORDERABLES [...] on filedocumented in this encounter Care Teams Mailing Machine Helper Relationship Specialty Start Date End Date None, None [address] [place] [address] PCP - General 10/26/20 Jeremy Gil MD [address] [place] [address] [address] [place] [address] Internal Medicine 08/19/20 Andres Alcantara DPM [address] [facility]. [address] [place] [address] Resident Podiatry 08/22/20 Grant Fletcher MD [address] [facility] [address] [place] [address] Infectious Diseases 09/08/20 Niko Cueva MD [address] [facility] [address] [place] [address] Vascular Surgery 09/16/20 Gm Flor DPM [address] [facility]. [address] [place], [place] [id number] Podiatry 11/01/20 Reina Byrd NP [address] [facility] [place] [address] Nurse Practitioner Vascular Surgery 11/30/20 documented as of this encounter
--- OUTSIDE RECORDS SUMMARY | 2025-02-15 11:06 | XMS_ITS | Encounter Summary ---
Author Organization [facility] Address [address] [place] [address] Care Team Providers Care Retail Customer Service Specialist Name Role Phone Tayo Jones MD Primary Care Provider [phone] Encounter Details Date Type Department Care Team (Late Contact Info) Description 05/06/2024 Orders Only External Location [address] [place] [address] Provider, External Social History Tobacco Use Types [...] EST Appointment [facility] [address] [place] [address] 05/13/2025 10:15 AM EST Office [facility] [address] [place] [address] Farhad Castillo MD [address] [address] documented as of this encounter Procedures Procedure [...] filedocumented in this encounter Care Teams Retail Customer Service Specialist Relationship Specialty Start Date End Date Tayo Jones MD [address] [place] [address] PCP - General 07/14/24 documented as of this encounter
--- OUTSIDE RECORDS SUMMARY | 2025-02-15 11:06 | XMS_ITS | Encounter Summary ---
Author Organization [facility] Address [address] [id number] Care Team Providers Care Multi Site Leasing Consultant Name Role Phone Tayo Jones MD Primary Care Provider [phone] Encounter Details Date Type Department Care Team ([facility] st Contact Info) Description 12/23/2024 Orders Only [facility] [address] [place] [address] Farhad Castillo MD [address] [phone] Social History Tobacco Use Types Packs/Day Years [...] time in the past 12 m [facility], were you homeless or living in [...] EST Appointment [facility] [address] [place] [address] 05/13/2025 10:15 AM EST Office Visit [facility] [address] [place] [address] Farhad Castillo MD [address] [address] documented as of this encounter Visit Diagnoses Not on filedocumented in this encounter Additional Health Concerns Assessment Noted Time A fall risk assessment has been complete d for the patient 07/23/2024 8:54 AM EDT A Body Mass Index follow-up plan has been documented for the patient 11/24/2024 5:29 PM EDT documented as of this encounter Care Teams Multi Site Leasing Consultant Relationship Specialty Start Date End Date Tayo Jones MD [address] [place] [address] PCP - General 07/14/24 documented as of this encounter
--- OUTSIDE RECORDS SUMMARY | 2025-02-15 11:06 | XMS_ITS | Encounter Summary ---
Author Organization [facility] Address [address] [place] [address] Care Team Providers Care Counsellors Name Role Phone Tayo Jones MD Primary Care Provider [phone] Encounter Details Date Type Department Care Team (Late Contact Info) Description 01/15/2023 Orders Only External Location [address] [place] [address] Sue Pope MD [address] [place], [place] [id number] Social History Tobacco Use Types Packs/Day Years [...] EST Appointment [facility] [address] [place] [address] 05/13/2025 10:15 AM EST Office Visit [facility] [address] [place] [address] Farhad Castillo MD [address] [address] documented as of this encounter Procedures Procedure [...] on filedocumented in this encounter Care Teams Counsellors Relationship Specialty Start Date End Date Tayo Jones MD [address] [place] [id number] PCP - General 07/14/24 documented as of this encounter
--- OUTSIDE RECORDS SUMMARY | 2025-02-15 11:06 | XMS_ITS | Encounter Summary ---
Author Organization [facility] Address [address] [place] [address] Care Team Providers Care Digital Media Sales Consultant Name Role Phone Tayo Jones MD Primary Care Provider [phone] Encounter Details Date Type Department Care Team (Late Contact Info) Description 05/06/2024 Orders Only External Location [address] [place] [address] Provider, External Social History Tobacco Use Types [...] EST Appointment [facility] [address] [place] [address] 05/13/2025 10:15 AM EST Office Visit [facility] [address] [place] [address] Farhad Castillo MD [address] [address] documented as of this encounter Procedures Procedure [...] on filedocumented in this encounter Care Teams Digital Media Sales Consultant Relationship Specialty Start Date End Date Tayo Jones MD [address] [place] [address] PCP - General 07/14/24 documented as of this encounter
--- OUTSIDE RECORDS SUMMARY | 2025-02-15 11:06 | XMS_ITS | Encounter Summary ---
Author Organization [facility] Address [address] [id number] Care Team Providers Care Parts Identifier Name Role Phone Tayo Jones MD Primary Care Provider [phone] Encounter Details Date Type Department Care Team ([facility] st Contact Info) Description 12/29/2024 Telephone [facility] [address] [place] [address] Farhad Castillo MD [address] [phone] Social History Tobacco Use Types Packs/Day Years [...] time in the past 12 m [facility], were you homeless or living in a [...] Phone Message Reason for Call: Jamee from [facility] calling about patients upcoming surgery on 01/06. Asking if he will be admitted and how long will his stay be. Best contact number and optimal time of day to reach caller: [phone] Ext [phone] Note: Please do not reply to this message. Follow-up communication and further actions as a result of this message need to be communicated with the patient directly, if the patient is not active onMyChart. If the patient is active on MyChart, they will receive notification of the communication/outcome via [employer]. documented in this encounter Plan of Treatment Upcoming Encounters Date Type Department Care Team (Late st Contact Info) Description 05/13/2025 7:30 AM EST Appointment [facility] [address] [place] [address] 05/13/2025 10:15 AM EST Office Visit [facility] [address] [place] [address] Farhad Castillo MD [address] [address] documented as of this encounter Goals Goal [...] documented as of this encounter Care Teams Parts Identifier Relationship Specialty Start Date End Date Tayo Jones MD [address] [place] [address] PCP - General 07/14/24 documented as of this encounter
--- OUTSIDE RECORDS SUMMARY | 2025-02-15 11:07 | XMS_ITS | Clinical Summary ---
Author Organization [facility] Address [address] [place] [address] Care Team Providers Care Malt Specifications Control Assistant Name Role Phone Tayo Jones MD Primary Care Provider [phone] Allergies No known active allergies Medications carvedilol (Coreg) 12.5 MG tablet Take by mouth in the morning and in the evening. Take with meals. 4 Active ferrous sulfate 325 (65 Fe) MG EC tablet 4 Active ondansetron (Zofran) 4 MG tablet 5 Active spironolactone (Aldactone) 25 MG tablet Take 1 tablet by mouth daily. 5 Active Multiple Vitamin (multivitamin) tablet Take 1 tablet by mouth daily. Active Quercetin 500 MG capsule Take 2 tablets by mouth daily. Active magnesium oxide (Mag-Ox) 400 MG tablet Take 1 tablet by mouth 2 times a day. 5 Active potassium chloride CR (Klor-Con M20) 20 MEQ ER tablet Take 1 tablet by mouth 2 times a day. 5 Active sodium bicarbonate 650 MG tablet Take 1 tablet by mouth 2 times a day. 5 Active loperamide (Imodium A-D) 2 MG tablet Take by mouth 3 times a day as needed. 5 Active Nutritional Supplements (Impact Advanced Recovery) liquid Drink 1 178ml carton 2 per day X 5 days before surgery 2500 mL 5 Active Additional Information Patient not taking.Reported on 02/04/2025 mupirocin (Bactroban) 2 % ointment Apply topically 2 times a day. 1 g 5 Active Additional Information Patient not taking.Reported on 02/11/2025 lisinopril 20 MG tablet Take 0.5 tablets by mouth daily. 5 Active insulin lispro (Admelog, HumaLOG) 100 UNIT/ML injection pen Inject 3 Units under the skin 3 times a day with meals. 5 Active cyclobenzaprine (Flexeril) 5 MG tablet Take 1 tablet by mouth 3 times a day. 5 Active pantoprazole (Protonix) 40 MG EC tablet Take 1 tablet by mouth daily. Do not crush, chew, or split. 5 03/14/20 25 Active Lantus SoloStar 100 UNIT/ML injection pen Inject 12 Units under the skin nightly. 5 Active naloxone (Narcan) 4 mg/0.1 mL nasal spray 1. Give 1 spray in nostril for no/slow breathing or cannot wake after opioid use 2. Call 911 3. Repeat in other nostril if symptoms continue 1 each 5 Active enoxaparin (Lovenox) 40 MG/0.4ML solution prefilled syringe Inject 0.4 mL under the skin daily for 21 days. 5 02/05/20 25 oxyCODONE (Roxicodone) 5 MG immediate release tablet Take 1 tablet by mouth every 4 hours as needed for moderate pain for up to 3 days. 18 tablet 5 01/17/20 25 Active Problems Problem Noted Date Diagnosed Date [...] Encounters Date Type Department Care Team Description 02/11/2025 9:00 AM EDT Office Visit [facility] [address] [place] [phone] Farhad Castillo MD Metastatic colon cancer to liver (Primary Dx) 02/11/2025 8:20 AM EDT - 02/11/2025 11:59 PM EDT Hospital Encounter [facility] Radiology [address] [place] [phone] Metastatic colon cancer to liver Discharge Disposition: Home or Self Care 02/11/2025 Travel 02/10/2025 Telephone [facility] General Surgery [address] [place] [phone] Heidi March MD HCN Clinical Concern/Question 02/04/2025 10:15 AM EDT Office Visit [facility] General Surgery [address], [address] [place] [phone] Heidi March MD Incisional hernia, without obstruction or gangrene (Primary Dx) 02/04/2025 Travel 01/27/2025 Telephone [facility] [address] [place] [phone] Renee Salas RN 01/08/2025 Travel 01/06/2025 11:02 AM EDT Anesthesia Event [facility] A OPERATING ROOM [address] [place] [address] Andres Rojas CRNA [place]burn Boulay, Stephanie A, CANDIDA 01/06/2025 10:50 AM EDT - 01/06/2025 4:15 PM EDT Surgery [facility] [address] [place] [address] Farhad Castillo MD HEPATECTOMY, PARTIAL, microwave ablation, cholecystectomy [36513 (CPT )] 01/06/2025 9:09 AM EDT - 01/13/2025 9:50 AM EDT Hospital Encounter [facility] [address] [place] [address] Farhad Castillo MD Metastatic colon cancer to liver (CMS/HCC) Discharge Disposition: Fdc Facility 01/06/2025 Travel 01/05/2025 Telephone [facility] General Surgery [address], [address] [place] [address] Eva Dale RN 12/29/2024 1:45 PM EDT Pre-Admission Testing [facility] Pre-op Clinic [address], [address] [place] [address] 12/29/2024 Travel 12/29/2024 Telephone [facility] Multidisciplinary Oncology Clinic [address] [place] [address] Farhad Castillo MD 12/24/2024 10:45 AM EDT Consult [facility] General Surgery [address], [address] [place] [address] Heidi March MD Personal history of nutritional deficiency (Primary Dx); Incisional hernia, without obstruction or gangrene; Metastatic colon cancer to liver (CMS/HCC) 12/24/2024 9:15 AM EDT Office Visit [facility] [address] [place] [address] Farhad Castillo MD Metastatic colon cancer to liver (CMS/HCC) (Primary Dx); Hernia 12/24/2024 Travel 12/23/2024 Orders Only [facility] [address] [place] [address] Farhad Castillo MD 12/17/2024 11:27 AM EDT - 12/17/2024 11:59 PM EDT Hospital Encounter [facility] Radiology [address] [place] [address] Metastatic colon cancer to liver (CMS/HCC) Discharge Disposition: Home or Self Care 12/17/2024 8:07 AM EDT - 12/17/2024 11:26 AM EDT Hospital Encounter Cardiac Imaging [address] [place] [address] Discharge Disposition: Home or Self Care 12/17/2024 8:00 AM EDT - 12/17/2024 8:06 AM EDT Hospital Encounter Cardiac Imaging [address] [place] [address] High risk surgery, pre-operative cardiovascular examination; Shortness of breath on exertion Discharge Disposition: Home or Self Care 12/17/2024 Travel 11/19/2024 11:15 AM EDT Office Visit [facility] Multidisciplinary Oncology Clinic [address] [place] [address] Farhad Castillo MD Metastatic colon cancer to liver (CMS/HCC) (Primary Dx); High risk surgery, pre-operative cardiovascular examination; Shortness of breath on exertion 11/19/2024 7:09 AM EDT - 11/19/2024 11:59 PM EDT Hospital Encounter [facility] [address] [place] [address] Metastatic colon cancer to liver (CMS/HCC) Discharge [...] living in a fpc (including now)? No 01/07/2025 [facility] Utilities Answer Date Recorded In the [...] drink first t rah in the morning (EYE-SALES COMPENSATION ANALYST) to steady your nerves or to get [...] Mass Index 36.15 02/11/2025 10:13 AM EDT Plan of Treatment Upcoming Encounters Date Type Department Care Team (Late st Contact Info) Description 05/13/2025 7:30 AM EST Appointment [facility] Radiology [address] [place] [address] 05/13/2025 10:15 AM EST Office Visit [facility] [address] [place] [address] Farhad Castillo MD [address] [address] Health Maintenance Due Date Last Done Comments [facility]-/Child/Adol SDOH Screenings 1964 Diabetes: Dental Exam 1974 [facility]-DTaP,Tdap,and Td Vaccines (1 - Tdap) 1983 [facility]-Hepatitis A Vaccines (1 of 2 - Risk 2-dose series) 1983 [facility]-Zoster Vaccines (1 of 2) 1983 [facility]-RSV Vaccine: 60+ Years or (1 - Risk 60-74 years 1-dose series) 2024 [id number] Vaccine (5 - 2024- season) 2024 01/15/2022, 03/28/2021, 07/27/2020, Additional history exists [facility]-Influenza Vaccine (#1) 2024 [facility]-Diabetes: Hemoglobin A1C 06/23/2025 12/24/2024, 11/19/2024, 10/08/2024, Additional history exists [facility]- SDOH Screenings 07/07/2025 [facility]-Adult SDOH Screenings 07/07/2025 01/07/2025 [facility]-Depression Screening 02/11/2026 02/11/2025, 01/14 [facility]-Pneumococcal Vaccine: 50+ Years Completed 05/27/2024, 09/12/2020 [facility]-HIV Screening Completed 10/08/2024 [facility]-Hepatitis C Screening Completed 10/08/2024 [facility]-Obesity Intervention Completed 025, 02/04/2025, 12/24/2024, Additional history exists HPV Vaccines Aged [...] Castillo MD Medical Devices Implanted Type Area Purchasing Department Clerk Device Identifier Shelf Expiration Date Model / Serial / Lot Port Clearvue Power 8fr - S. - [id number] Implanted:Qt y: 1 on 07/31/2024 by Farhad Castillo MD at [facility] Other Medication Pump Left: Chest [employer]-[id number] 07/13/2025 [id number] / . / [id number] [id number] - [id number] Implanted:Qt y: 1 on 01/06/2025 by Heidi March MD at [facility] N/A: Abdomen [id number] 03/12/2026 [id number] / / [id number] Procedures Procedure Name Priority Date/Time Associated Diagnosis Comments CEA, SERUM Routine 02/11/2025 10:54 AM EDT Metastatic colon cancer to liver PREALBUMIN, PLASMA Routine 02/11/2025 10 :54 AM EDT Metastatic colon cancer to liver COMPREHENSIVE METABOLIC PANEL, PLASMA Routine 02/11/2025 10:54 AM EDT Metastatic colon cancer to liver CBC W/O DIFFERENTIAL Routine 02/11/2025 10:54 AM EDT Metastatic colon cancer to liver CT ABDOMEN PELVIS W IV CONTRAST Routine 02/11/2025 9:37 AM EDT Metastatic colon cancer to liver CT CHEST W IV CONTRAST Routine 9:37 AM EDT Metastatic colon cancer to liver POCT GLUCOSE METER UNSOLICITED RESULTS Routine 01/13/2025 [...] ANESTHESIA PLACEHOLDER Routine 01/06/2025 11:13 AM EDT WY AN ELECTIVE ENDOTRACHEAL AIRWAY Routine 01/06/2025 11:13 AM EDT WY RPR AA HERNIA 1ST 3-10 CM REDUCIBLE 01/06/2025 10:47 AM EDT Metastatic colon cancer to liver (CMS/HCC) Incisional hernia without obstruction or gangrene WY RESEC LIVER,PART LOBECTOMY 01/06/2025 10:47 AM EDT [...] Relevant to Health Maintenance Results * (ABNORMAL) CBC W/O Differential (02/11/2025 10:54 AM EDT) Only the most recent of11 resultswithin the time period is included. WBC Count 11.56(H) 3.70 - 10.30 10*3/uL LAB HEMATOLOGY METHOD 02/11/2025 11:41 AM EDT [facility] RBC Count 4.61 4.60 - 6.10 10*6/uL LAB HEMATOLOGY METHOD 02/11/2025 11:41 AM EDT [facility] HGB 12.8(L) 13.7 - 17.5 g/dL LAB HEMATOLOGY METHOD 02/11/2025 11:41 AM EDT [facility] HCT 39.3(L) 40.0 - 51.0 % LAB HEMATOLOGY METHOD 02/11/2025 11:41 AM EDT [facility] Platelet Count 299 155 - 369 10*3/uL LAB HEMATOLOGY METHOD 02/11/2025 11:41 AM EDT [facility] MCV 85 79 - 98 fL LAB HEMATOLOGY METHOD 02/11/2025 11:41 AM EDT [facility] MCH 27.8 26.0 - 32.0 pg LAB HEMATOLOGY METHOD 02/11/2025 11:41 AM EDT [facility] MCHC 32.6 30.7 - 35.5 g/dL LAB HEMATOLOGY METHOD 02/11/2025 11:41 AM EDT [facility] RDW 13.2 11.5 - 14.5 % LAB HEMATOLOGY METHOD 02/11/2025 11:41 AM EDT [facility] MPV 8.9 8.8 - 12.5 fL LAB HEMATOLOGY METHOD 02/11/2025 11:41 AM EDT [facility] nRBC 0.0 <=0.0 per 100 WBCs LAB HEMATOLOGY METHOD 02/11/2025 11:41 AM EDT [facility] Blood Venous blood specimen / Unknown Venipuncture / Unknown 02/11/2025 10:54 AM EDT 02/11/2025 11:34 AM EDT us Julia Dotson COREMAKER MACHINE LAB BLOOD ORDERABLES Fin al Result [facility] [address] [place] [address] * Prealbumin, Plasma (02/11/2025 10:54 AM EDT) Only the most recent of3 resultswithin the time period is included. [facility] Prealbumin, Plasma 23.0 20.0 - 41.0 mg/dL 02/11/2025 11:50 AM EDT [facility] Blood Venous blood specimen / Unknown Venipuncture / Unknown 02/11/2025 10:54 AM EDT 02/11/2025 11:13 AM EDT Critical access hospital LAB BLOOD ORDERABLES Fin al Result Performing Organization Address City/[facility]/ZIP Co de Phone Number [facility] [address] [place] [address] * CEA, Serum (02/11/2025 10:54 AM EDT) Only the most recent of2 resultswithin the time period is included. [facility] CEA, Serum 1.9 <4.0 ng/mL 02/11/2025 11:52 AM EDT [facility] Blood Venous blood specimen / Unknown Venipuncture / Unknown 02/11/2025 10:54 AM EDT 02/11/2025 11:14 AM EDT Narrative [facility] - 02/11/2025 11:52 AM EDT Normal range for smokers: < 5.5 ng/ml Normal range for non-smokers: <=4.0 ng/ml Performed by Minerva electrochemiluminescent immunoassay. Results obtained with different test methods or kits cannot be used interchangeably. Critical access hospital LAB BLOOD ORDERABLES Fin al Result Performing Organization Address City/[facility]/ZIP Co de Phone Number [facility] [address] [place] [address] * (ABNORMAL) Comprehensive Metabolic Panel, Plasma (02/11/2025 10:54 AM EDT) Only the most recent of11 resultswithin the time period is included. [facility] Glucose, Plasma 118(H) 74 - 99 mg/dL 02/11/2025 11:50 AM EDT [facility] BUN, Plasma 13 8 - 23 mg/dL 02/11/2025 11:50 AM EDT [facility] Creatinine, Plasma 0.89 0.70 - 1.20 mg/dL 02/11/2025 11:50 AM EDT [facility] BUN/Creatinine Ratio 15 02/11/2025 11:50 AM EDT [facility] Sodium, Plasma 135(L) 136 - 145 mmol/L 02/11/2025 11:50 AM EDT [facility] Potassium, Plasma 4.3 3.6 - 4.9 mmol/L 02/11/2025 11:50 AM EDT [facility] Chloride, Plasma 101 97 - 107 mmol/L 02/11/2025 11:50 AM EDT [facility] CO2, Plasma 21(L) 22 - 29 mmol/L 02/11/2025 11:50 AM EDT [facility] Anion Gap 13 6 - 16 mmol/L 02/11/2025 11:50 AM EDT [facility] Total Calcium, Plasma 9.2 8.9 - 10.2 mg/dL 02/11/2025 11:50 AM EDT [facility] Total Protein 7.8 6.3 - 7.9 g/dL 02/11/2025 11:50 AM EDT [facility] Albumin, Plasma 3.9 3.5 - 5.2 g/dL 02/11/2025 11:50 AM EDT [facility] AST, Plasma 27 10 - 50 U/L 02/11/2025 11:50 AM EDT [facility] ALT, Plasma 12 10 - 50 U/L 02/11/2025 11:50 AM EDT [facility] Alkaline Phosphatase, Plasma 86 40 - 115 U/L 02/11/2025 11:50 AM EDT [facility] Total Bilirubin, Plasma 0.5 0.2 - 1.1 mg/dL 02/11/2025 11:50 AM EDT [facility] eGFRcr 98.1 mL/min/1.7 3m*2 02/11/2025 11:50 AM EDT [facility] Comment:Reported eGFRcr in m L/min/1.73m2 is based the CKD-EPI 2020 equation that does not use a race coefficient. Blood Venous blood specimen / Unknown Venipuncture / Unknown 02/11/2025 10:54 AM EDT 02/11/2025 11:13 AM EDT Julia Dotson COREMAKER MACHINE LAB BLOOD ORDERABLES Fin al Result [facility] [address] [place] [address] * CT Abdomen Pelvis w IV Contrast (02/11/2025 9:37 AM EDT) Only the most recent of2 [...] Total DLP (Dose-Length Product): 1742.28 mGy.cm (accession [id number]), 1742.28 mGy.cm (accession [id number]). Please note: The reported value represents the [...] Total DLP (Dose-Length Product): 1742.28 mGy.cm (accession [id number]),1742.28 mGy.cm (accession [id number]). Please note: The reported valuerepresents the total [...] Dotson APRN IMG CT PROCEDURES Final Result * CT Chest w IV Contrast (02/11/2025 9:37 AM EDT) Only the most recent of2 resultswithin the time period is included. Anatomical Region Laterality Modality Chest Computed Tomogra [...] Total DLP (Dose-Length Product): 1742.28 mGy.cm (accession [id number]), 1742.28 mGy.cm (accession [id number]). Please note: The reported value represents the [...] Total DLP (Dose-Length Product): 1742.28 mGy.cm (accession [id number]),1742.28 mGy.cm (accession [id number]). Please note: The reported valuerepresents the total [...] DO on 02/11/2025 10:50 AM Julia Dotson COREMAKER MACHINE IMG CT PROCEDURES Final Result * (ABNORMAL) POCT glucose meter (01/13/2025 7:02 [...] Comment 01/13/2025 7:03 AM EDT [facility] Manager Business Continuity ID Vita Holder 01/13/2025 7:03 AM EDT HEALTH[facility]ARE LAB Device ID [id number] 01/13/2025 7:03 AM EDT [facility] Specimen Type POC Capillary 01/13/2025 7:03 AM EDT [facility] Blood Capillary blood specimen / Unknown 01/13/2025 7:02 AM EDT 01/13/2025 7:03 AM EDT Farhad Castillo MD LAB POINT OF CARE TEST DOCKED DEVICE UNSOLICITED RESULTS Final Result Performing Organization Address City/State/[facility] de Phone Number [facility]ALTH[facility]ARE [facility] [address] [place] [address] * Phosphorus (01/13/2025 3:37 AM EDT) Only the most recent of7 resultswithin the time period is included. Phosphorus, Plasma 3.3 2.5 - 4.5 mg/dL 01/13/2025 4:45 AM EDT [facility] Blood Venous blood specimen / Unknown Venipuncture / Unknown 01/13/2025 3:37 AM EDT 01/13/2025 4:14 AM EDT us Farhad Castillo MD LAB BLOOD ORDERABLES Final Result Performing Organization Address City/[facility] Co de Phone Number [facility] [address] [place] [address] * (ABNORMAL) Magnesium (01/13/2025 3:37 AM EDT) Only the most recent of7 resultswithin the time period is included. Magnesium, Plasma 1.8(L) 1.9 - 2.4 mg/dL 01/13/2025 4:45 AM EDT [facility] Blood Venous blood specimen / Unknown Venipuncture / Unknown 01/13/2025 3:37 AM EDT 01/13/2025 4:14 AM EDT Farhad Castillo MD LAB BLOOD ORDERABLES Final Result Performing Organization Address [facility] Co de Phone Number [facility] [address] [place] [address] * PERIPHERAL IV (SMARTFORM LINK) (01/10/2025 10:19 [...] IV THERAPY ORDERABLES Caprice l Result * XR Abdomen 1 View (01/08/2025 [...] abdomen. COMPARISON: Abdominal radiograph 01/08/2025 FINDINGS: Limited iyjay-[id number] abdominal radiograph for the purpose of locating tube position. The tip and side port of the nasogastric tube are within the proximal stomach. Procedure Note Kareem Marie MD - 01/08/2025 CLINICAL INDICATION: NGT confirmation TECHNIQUE: Supine radiograph of the abdomen. COMPARISON: Abdominal radiograph 01/08/2025 FINDINGS: Limited akblc-[id number]-tasr abdominal radiograph for the purpose of locatingtube [...] Marie MD on 01/08/2025 11:54 AM Paulo G Misty COREMAKER MACHINE IMG XR PROCEDURES Final Resul t * (ABNORMAL) Blood gas panel, arterial (01/06/2025 5:03 PM EDT) Only the most recent of3 resultswithin the time period is included. pH, Arterial 7.35 7.31 - 7.42 LAB HEMATOLOGY METHOD 01/06/2025 5:09 PM EDT [facility] pCO2, Arterial 40 32 - 45 mmHg LAB HEMATOLOGY METHOD 01/06/2025 5:09 PM EDT [facility] pO2, Arterial 109 >80 mmHg LAB HEMATOLOGY METHOD 01/06/2025 5:09 PM EDT [facility] SO2, Measured, Arterial 97 94 - 98 % LAB HEMATOLOGY METHOD 01/06/2025 5:09 PM EDT [facility] Base Excess, Arterial -3.1(L) -2.0 - 3.0 mmol/L LAB HEMATOLOGY METHOD 01/06/2025 5:09 PM EDT [facility] Bicarbonate, Calculated, Arterial 22 22 - 26 mmol/L LAB HEMATOLOGY METHOD 01/06/2025 5:09 PM EDT [facility] Hematocrit, Whole Blood 39.4(L) 40.0 - 51.0 % LAB HEMATOLOGY METHOD 01/06/2025 5:09 PM EDT [facility] Sodium, Whole Blood 139 136 - 145 mmol/L LAB HEMATOLOGY METHOD 01/06/2025 5:09 PM EDT [facility] Potassium, Whole Blood 5.0(H) 3.6 - 4.9 mmol/L LAB HEMATOLOGY METHOD 01/06/2025 5:09 PM EDT [facility] Chloride, Whole Blood 108(H) 97 - 107 mmol/L LAB HEMATOLOGY METHOD 01/06/2025 5:09 PM EDT [facility] Glucose, Whole Blood 227(H) 74 - 99 mg/dL LAB HEMATOLOGY METHOD 01/06/2025 5:09 PM EDT [facility] Ionized Calcium, Whole Blood 4.6 4.6 - 5.1 mg/dL LAB HEMATOLOGY METHOD 01/06/2025 5:09 PM EDT [facility] Lactate, Arterial, Whole Blood 1.9(H) 0.5 - 1.6 mmol/L LAB HEMATOLOGY METHOD 01/06/2025 5:09 PM EDT [facility] Blood Arterial blood specimen / Unknown Arterial Puncture / Unknown 01/06/2025 5:03 PM EDT 01/06/2025 5:08 PM EDT us Cheng Peña MD LAB BLOOD ORDERABLES Final Res ult [facility] [address] [place] [address] * Surgical Pathology Exam (01/06/2025 12:59 PM EDT) Only the most recent of2 resultswithin the time period is included. Case Report Surgical Pathology Case: [id number] Authorizing Provider: Heidi March MD Collected: 01/06/2025 1213 Ordering Location: [facility] A OPERATING ROOM Received: 01/06/2025 1618 Pathologist: Paulo Morrison MD Specimens: A) - Other (specify site), Partial Omentectomy B) - Other (specify site), Segment 8 partial hepatectomy C) - Gallbladder, gallbladder 01/11/2025 10:28 AM EDT [facility] Final Diagnosis A. OMENTUM, PARTIAL OMENTECTOMY: - [...] NEGATIVE FOR TUMOR 01/11/2025 10:28 AM EDT [facility] at 1028 EDT Comment The background liver parenchyma harbors features of chronic liver disease, namely steatohepatitis. Further clinical workup may be indicated for appropriate classification and staging. 01/11/2025 10:28 AM EDT [facility] Clinical Information Metastatic colon cancer to liver (CMS/HCC) [C18.9, C78.7] 01/11/2025 10:28 AM EDT [facility] Gross Description A. PARTIAL [...] cut surface is martino-yellow and lobulated. The workforce services representative section of specimen are submitted as: A1: Ecommerce Project Manager section of nodule A2-A3: Ecommerce Project Manager section of specimen Cold Time: 4h 05m [...] nodule. No additional nodule or mass identified. Ecommerce Project Manager sectioned of specimen are submitted as: B1: [...] grossly identified. Cystic duct margin (en face), workforce services representative sections of gallbladder neck, and body are submitted in cassette C1. Cold Time: 2h 32m YAHIR Toney 01/11/2025 10:28 AM EDT [facility] Note: A resident was involved in the service. I attest I examined the relevant preparations for the specimens and confirmed the diagnosis or interpretation. 01/11/2025 10:28 AM EDT [facility] Tissue Topography unknown / [...] MD LAB PATHOLOGY ORDERABLES F inal Result [facility] [address] [place] [address] * PB ANESTHESIA NON-TIMED PROCEDURE PLACEHOLDER (01/06/2025 [...] ANESTHESIA ORDERABLES Edited Result - Final * WY AN ELECTIVE ENDOTRACHEAL AIRWAY, PB ANESTHESIA PLACEHOLDER (01/06/2025 11:13 AM EDT) Narrative Andres Rojas CRNA - 01/06/2025 11:13 AM EDT Andres Rojas CRNA 01/06/2025 12:11 PM Airway Date/Time: 01/06/2025 11:13 AM Reason: elective Airway not difficult General Information and Staff Patient location during procedure: OR GENERAL CAR SUPERVISOR YARD: Andres Rojas CRNA Other anesthesia staff: Bina [...] cc negative for IV or SA dose. Kathe Peralta MD ANESTHESIA ORDERABLES Final R esult * POCT Glycosylated Hemoglobin (Hgb A1C) (12/24/2024 10:39 AM EDT) POCT Hemoglobin A1C 6.7 <5.7% Non-Diabet ic % [facility] Kit Lot Number 912 [facility] Kit Expiration Date 10/12/26 [facility] Blood Venous blood specimen / Unknown 12/24/2024 10:39 AM EDT Heidi March MD POINT OF CARE TEST ENTER/KINGSLEY T ORDERABLES Final Result [facility] [address] [place] [address] * APTT (12/24/2024 9:22 AM EDT) aPTT 25 25 - 35 sec LAB COAGULATION METHOD 12/24/2024 9:59 AM EDT [facility] Blood Venous blood specimen / Unknown Venipuncture / Unknown 12/24/2024 9:22 AM EDT 12/24/2024 9:38 AM EDT Farhad Castillo MD LAB BLOOD ORDERABLES Final Result Performing Organization Address City/[facility]/ZIP Co de Phone Number [facility] [address] [place] [address] * Prothrombin Time/INR (12/24/2024 9:22 AM EDT) Prothrombin Time 14.0 12.0 - 14.3 sec LAB COAGULATION METHOD 12/24/2024 9:59 AM EDT [facility] INR 1.1 0.9 - 1.1 LAB COAGULATION METHOD 12/24/2024 9:59 AM EDT [facility] Blood Venous blood specimen / Unknown Venipuncture / Unknown 12/24/2024 9:22 AM EDT 12/24/2024 9:38 AM EDT Narrative [facility] - 12/24/2024 9:59 AM EDT OPTIMAL INR RANGES FOR PATIENT ON ORAL ANTICOAGULANT THERAPY Prevention of venous thromboembolism INR 2.0 to 3.0 In patients with heart disease: Atrial fibrillation INR 2.0 to 3.0 Valvular heart disease INR 2.0 to 3.0 Tissue heart valves INR 2.0 to 3.0 Mechanical prosthetic valves INR 2.5 to 3.5 Prevention of recurrent OK INR 2.5 to 3.5 us Farhad Castillo MD LAB BLOOD ORDERABLES Final Result Performing Organization Address City/[facility]/ZIP Co de Phone Number [facility] [address] [place] [address] * MR Abdomen w and wo IV [...] using the following sequences: coronal single shot [id number] fast spin echo, axial T2 weighted sequences [...] performed under direct supervision of the reading supervisor mending. Study Impression There is no significant patient [...] 7.3(H) <5.7 % 11/19/2024 12:49 PM EDT [facility] Blood Venous blood specimen / Unknown Venipuncture / Unknown 11/19/2024 11:26 AM EDT 11/19/2024 11:47 AM EDT Narrative [facility] - 11/19/2024 12:49 PM [...] BLOOD ORDERABLES Final Result Performing Organization Address City/[facility]/ZIP Co de Phone Number [facility] [address] [place] [address] * ED HIV 1/2 Antibody/Antigen Screen w/Reflex to HIV 1/2 Differentiation (10/08/2024 12:55 AM EDT) HIV 1 & 2 Antibody/Antigen Screen Non Reactive Non Reactive 10/08/2024 2:00 AM EDT [facility] Comment:Screening for HIV 1 & 2 antibodies, and P24 antigen is NONREACTIVE. No confirmatory testing is required. Blood Venous blood specimen / Unknown Venipuncture / Unknown 10/08/2024 12:55 AM EDT 10/08/2024 1:11 AM EDT us Mickie Jefferson MD LAB BLOOD ORDERABLES Final Re sult Performing Organization Address [facility]/ZIP Co de Phone Number [facility] [address] [place] [address] * Hepatitis C Antibody - ED (10/08/2024 12:55 AM EDT) Pathologist [facility] Hepatitis C Antibody Negative Negative 10/08/2024 2:16 AM EDT [facility] Blood Venous blood specimen / Unknown Venipuncture / Unknown 10/08/2024 12:55 AM EDT 10/08/2024 1:11 AM EDT Mickie Jefferson MD LAB BLOOD ORDERABLES Final Re sult Performing Organization Address City/[facility] Co de Phone Number [facility] [address] [place] [address] from Last 3 Months or Most Recently [...] updated to appropriate status: Yes Care Teams Malt Specifications Control Assistant Relationship Specialty Start Date End Date Tayo Jones MD [address] [place] [address] PCP - General 07/14/24
--- OUTSIDE RECORDS SUMMARY | 2025-02-15 11:07 | XMS_ITS | Encounter Summary ---
Author Organization [facility] Address [address] [place] [address] Care Team Providers Care Salary And Wage Administrator Name Role Phone Tayo Jones MD Primary Care Provider [phone] Encounter Details Date Type Department Care Team [...] time in the past 12 m [facility], were you homeless or living in a [...] EST Appointment [facility] Radiology [address] [place] [phone] 05/13/2025 10:15 AM EST Office [facility] [address] [place] [address] Farhad Castillo MD [address] [phone] documented as of this encounter Goals Goal [...] documented as of this encounter Care Teams Salary And Wage Administrator Relationship Specialty Start Date End Date Tayo Jones MD [address] [place] [address] PCP - General 07/14/24 documented as of this encounter
--- OUTSIDE RECORDS SUMMARY | 2025-02-15 11:07 | XMS_ITS | Clinical Summary ---
Author Organization [facility] Address [address] [place] [address] Care Team Providers Care Installment Dealer Name Role Phone Jeremy Gil MD Unavailable [phone] Andres Alcantara DPM Unavailable Grant Fletcher MD Unavailable Niko Cueva MD Unavailable None, None Primary Care Provider UnavailGm Vigil DPM Unavailable Reina Byrd NP Unavailable Unavailable Allergies No known active allergies Medications Insulin Glargine (Lantus) 100 unit/mL (3 mL) Solostar INPNIndications :Type 2 diabetes mellitus with hyperglycemia, with long-term current use of insulin ([facility]) 16 Units by Subcutaneous [...] 2) 2014 Depression Screening 04/15/2024 COVID-19 Vaccine ( - 2024- season) 2024 Influenza Vaccination (#1) 2024 RSV Vaccines (1 - 1-dose 75+ series) 2039 Insurance MEDICAID [place] Advance Directives For more information, please contact: [phone] * Full Code (Latest Code Status on File) Date Activated Date Inactivated Comments 08/19/2020 3:05 AM No automated ch est compression devices for VAD Patients Care Teams Installment Dealer Relationship Specialty Start Date End Date None, None [address] [place] [address] PCP - General 10/26/20 Jeremy Gil MD [address] [facility] Room [address] [place] [address] Internal Medicine 08/19/20 Andres Alcantara DPM [address] [facility] [place] [address] Resident Podiatry 08/22/20 Grant Fletcher MD [address] [place] [address]. [address] [place] [address] Infectious Diseases 09/08/20 Niko Cueva MD [facility] [facility] [address] [place] [address] Vascular Surgery 09/16/20 Gm Flor DPM [address] [place] [address] [place] [address] Podiatry 11/01/20 Reina Byrd NP [address] [place] [address] [place] [address] Nurse Practitioner Vascular Surgery 11/30/20
--- OUTSIDE RECORDS SUMMARY | 2025-02-15 11:07 | XMS_ITS | Encounter Summary ---
Author Organization [facility] Address [address] [place] [address] Care Team Providers Care Tower Equipment Installer Name Role Phone Tayo Jones MD Primary Care Provider [phone] Encounter Details Date Type Department Care Team (Latest Contact Info) Description 02/11/2025 Travel Social History Tobacco Use Types Packs/Day [...] in a snf (including now)? No 01/07/2025 [facility] Utilities Answer Date Recorded In [...] drink first t rah in the morning (EYE-RECEIVABLES SPECIALIST) to steady your nerves or to get [...] Jennifer Mills documented as of this encounter Plan of Treatment Upcoming Encounters Date Type Department Care Team (Late st Contact Info) Description 05/13/2025 7:30 AM EST Appointment [facility] Radiology [address] [place] [address] 05/13/2025 10:15 AM EST Office [facility] [address] [place] [address] Farhad Castillo MD [address] [address] documented as of this encounter Goals Goal [...] documented as of this encounter Care Teams Tower Equipment Installer Relationship Specialty Start Date End Date Tayo Jones MD [address] [place] [phone] PCP - General 07/14/24 documented as of this encounter
--- OUTSIDE RECORDS SUMMARY | 2025-02-15 11:07 | XMS_ITS | Encounter Summary ---
Author Organization [facility] Address [address] [id number] Care Team Providers Care Supervisor Tank Cleaning Name Role Phone Tayo Jones MD Primary Care Provider [phone] Reason for Visit * Reason Onset Date Comments HCN Clinical Concern/Question 02/10/2025 Encounter Details Date Type Department Care Team (Late st Contact Info) Description 02/10/[address] [facility] General Surgery [address] [place] [address] Heidi March MD [address] [place] [address] HCN Clinical Concern/Question Social History Tobacco Use Types Packs/Day Years [...] time in the past 12 m [facility], were you homeless or living in a care home (including now)? No 01/07/2025 [facility] Utilities Answer Date Recorded In the past 12 months has e [email or web address], gas, oil, or water [employer] threatened to shut off services in your [...] drink first t rah in the morning (EYE-DIRECTOR GIFT) to steady your nerves or to get [...] encounter Miscellaneous Notes * Telephone Encounter - Eva Dale RN - 02/10/2025 1:10 PM EDT This has been done. * Telephone Encounter - [place] know[place]ifer Amber - 02/10/2025 12:41 PM EDT Patient Phone Message Reason for Call: [facility] is calling requesting office note from 02/04 to be faxed to [phone] Best contact number and optimal time of [...] EST Appointment [facility] Radiology [address] [place] [address] 05/13/2025 10:15 AM EST Office [facility] [address] [place] [address] Farhad Castillo MD [address] [phone] documented as of this encounter Goals Goal [...] as of this encounter Care Teams Supervisor Tank Cleaning Relationship Specialty Start Date End Date Tayo Jones MD [address] [place] [address] PCP - General 07/14/24 documented as of this encounter
--- OUTSIDE RECORDS SUMMARY | 2025-02-15 11:07 | XMS_ITS | Encounter Summary ---
Author Organization [facility] Address [address] [place] [address] Care Team Providers Care Petrol Tanker Driver Name Role Phone Tayo Jones MD Primary Care Provider [phone] Encounter Details Date Type Department Care Team [...] in a jail (including now)? No 01/07/2025 [facility] Utilities Answer Date Recorded In the past 12 months has th e electric, gas, oil, or water [employer] threatened to shut off services in your [...] Month) No 025 9:31 AM MINOT Maira Carney, RN 2. Non-Specific Active Suici sol Thoughts (Past 1 Month) No 01/06/2025 9:31 AM Maira Ruiz, RN 6. Suicidal Behavior (Lifetime) No 9:31 AM Maira Ruiz RN documented as of this encounter Plan of Treatment Upcoming Encounters Date Type Department Care Team (Late st Contact Info) Description 05/13/2025 7:30 AM EST Appointment [facility]iology [address] [place] [address] 05/13/2025 10:15 AM EST Office Visit [facility] [address] [place] [address] Farhad Castillo MD [address] [phone] documented as of this encounter Goals Goal [...] documented as of this encounter Care Teams Petrol Tanker Driver Relationship Specialty Start Date End Date Tayo Jones MD [address] [place] [phone] PCP - General 07/14/24 documented as of this encounter
--- OUTSIDE RECORDS SUMMARY | 2025-02-15 11:07 | XMS_ITS | Encounter Summary ---
Author Organization [facility] Address [address] [place] [address] Care Team Providers Care Product Architect Name Role Phone Tayo Jones MD Primary Care Provider [phone] Encounter Details Date Type Department Care Team [...] living in a assisted (including now)? No 01/07/2025 [facility] Utilities Answer Date Recorded In the past [...] EST Appointment [facility] Radiology [address] [place] [address] 05/13/2025 10:15 AM EST Office Visit [facility] [address] [place] [address] Farhad Castillo MD [address] [address] documented as of this encounter Goals Goal [...] documented as of this encounter Care Teams Product Architect Relationship Specialty Start Date End Date Tayo Jones MD [address] [place] [address] PCP - General 07/14/24 documented as of this encounter
--- OUTSIDE RECORDS SUMMARY | 2025-02-15 11:07 | XMS_ITS ---
Author Organization [facility] Address [address] [place] [address] Care Team Providers Care Cmv Driver Name Role Phone Tayo Jones MD Primary Care Provider [phone] Active Problems Problem Noted Date Diagnosed Date [...]
--- OUTSIDE RECORDS SUMMARY | 2025-02-15 11:08 | XMS_ITS | Encounter Summary ---
Author Organization [facility] Address [address] [place] [address] Care Team Providers Care Table Games Manager Name Role Phone Tayo Jones MD Primary Care Provider [phone] Encounter Details Date Type Department Care Team (Late st Contact Info) Description 01/05/2025 Telephone [facility] General Surgery [address], [address] [place] [phone] Eva Dale RN [facility] [place] [address] Social History Tobacco Use Types Packs/Day Years [...] EST Appointment [facility] [address] [place] [address] 05/13/2025 10:15 AM EST Office Visit [facility] [address] [place] [address] Farhad Castillo MD [address] [address] documented as of this encounter Goals Goal [...] documented as of this encounter Care Teams Table Games Manager Relationship Specialty Start Date End Date Tayo Jones MD [address] [place] [address] PCP - General 07/14/24 documented as of this encounter
[2025-02-15 12:03] LABS: Hematocrit 40.3 % (42.0-52.0); Hemoglobin 13.0 g/dL (14.1-18.0); Immature Granulocytes % 0.3 %; Mean Corpuscular HGB Conc 32.3 g/dL (31.8-35.4); Mean Corpuscular Hemoglobin 28.3 pg (27.0-31.2); Mean Corpuscular Volume 87.6 fl (80-94); Nucleated Red Blood Cells % 0 %; Platelet Count 260 K/mm3 (142-424); Red Blood Count 4.60 M/mm3 (4.60-6.20); Red Cell Distribution Width-SD 42.5 fL; White Blood Count 9.2 K/mm3 (4.8-10.8)
[2025-02-15 12:29] LABS: Alanine Aminotransferase 13 U/L (12-78); Albumin Level 3.9 g/dl (3.5-5.0); Albumin/Globulin Ratio 1.1 (1.1-1.8); Alkaline Phosphatase 84 U/L (38-126); Anion Gap 12.4 mEq/L (5-15); Aspartate Amino Transferase 24 U/L (17-59); Bilirubin,Total 0.5 mg/dl (0.2-1.3); Blood Urea Nitrogen 14 mg/dl (9-20); Calcium 9.2 mg/dl (8.4-10.2); Carbon Dioxide 23 mmol/L (22.0-30.0); Chloride 105 mmol/L (98-107); Creatinine,Serum 1.00 mg/dl (0.66-1.25); Estimated Glomerular Filt Rate 76 ml/min (>60); GFR (African American) 92 ML/MIN (>60); Globulin 3.6 g/dL (1.3-3.2); Glucose 150 mg/dl (74-100); Potassium 4.4 mmoL/L (3.5-5.1); Sodium 136 mmol/L (136-145); Total Protein,Serum 7.5 g/dl (6.3-8.2)
[2025-02-15 12:34] LABS: C-Reactive Protein 4.6 mg/L (0-4)
[2025-02-15 13:53] LABS: Hemoglobin A1C 6.5 % (4.0-6.0)
== END 2025-02-15 23:59 | disposition home or self-care (01) ==
LOC: LAB 11:04
PROVIDERS: PCP Family Medicine; Visit Provider Nurse Practitioner
DX: E11.621 Type 2 diabetes mellitus with foot ulcer (principal); L97.522 Non-pressure chronic ulcer of other part of left foot with fat layer exposed; Z79.4 Long term (current) use of insulin; R93.6 Abnormal findings on diagnostic imaging of limbs
CPT/HCPCS: 36415; 73630; 80053; 83036; 85025; 85651; 86140; 87070; 87077; 87205

== ENCOUNTER 2025-03-23 10:53 | Outpatient (CLI) | payer MEDICAID, SELFPAY ==
[2025-03-23] MEDS: SODIUM CHLORIDE 0.9% 10ML FLUSH SYRINGE 10 ML IV (11:15)
[2025-03-23 11:38] LABS: Hematocrit 38.4 % (42.0-52.0); Hemoglobin 12.7 g/dL (14.1-18.0); Immature Granulocytes % 0.2 %; Mean Corpuscular HGB Conc 33.1 g/dL (31.8-35.4); Mean Corpuscular Hemoglobin 27.8 pg (27.0-31.2); Mean Corpuscular Volume 84.0 fl (80-94); Nucleated Red Blood Cells % 0 %; Platelet Count 234 K/mm3 (142-424); Red Blood Count 4.57 M/mm3 (4.60-6.20); Red Cell Distribution Width-SD 41.3 fL; White Blood Count 10.1 K/mm3 (4.8-10.8)
[2025-03-23 11:42] LABS: Alanine Aminotransferase 18 U/L (12-78); Albumin Level 4.0 g/dl (3.5-5.0); Albumin/Globulin Ratio 1.1 (1.1-1.8); Alkaline Phosphatase 87 U/L (38-126); Anion Gap 15.5 mEq/L (5-15); Aspartate Amino Transferase 28 U/L (17-59); Bilirubin,Total 0.4 mg/dl (0.2-1.3); Blood Urea Nitrogen 18 mg/dl (9-20); Calcium 9.2 mg/dl (8.4-10.2); Carbon Dioxide 20 mmol/L (22.0-30.0); Chloride 107 mmol/L (98-107); Creatinine,Serum 1.00 mg/dl (0.66-1.25); Estimated Glomerular Filt Rate 76 ml/min (>60); GFR (African American) 92 ML/MIN (>60); Globulin 3.5 g/dL (1.3-3.2); Glucose 183 mg/dl (74-100); Potassium 4.5 mmoL/L (3.5-5.1); Sodium 138 mmol/L (136-145); Total Protein,Serum 7.5 g/dl (6.3-8.2)
[2025-03-24 12:12] LABS: CEA 2.3 ng/mL (0.0-4.7)
== END 2025-03-23 23:59 | disposition home or self-care (01) ==
PROVIDERS: PCP Family Medicine; Visit Provider Internal Medicine Medical Oncology
DX: C18.2 Malignant neoplasm of ascending colon (principal)
CPT/HCPCS: 36415; 80053; 82378; 85025; 96523; J1642